=== PATIENT | male | born 1935 | race Caucasian/White ===

== ENCOUNTER 2020-09-04 08:21 | Outpatient (CLI) | payer MEDICARE, SELFPAY ==
--- NOTE | ~2020-09-04 | CT_ITS ---
EXAMINATION: CT soft tissue neck w con DATE: 09/04/2020 08:59 INDICATION: Left ear pain. TECHNIQUE: Computed tomography (CT) of the neck was performed with 75 mL Omnipaque-350 intravenous co ntrast. Automated exposure control and iterative reconstruction technique were employed. The dose-harsha gth product was 517.38 mGy-cm. COMPARISON: None FINDINGS: There are likely changes of ocular lens replacement surgeries. There are no pathologically enlarged lymph nodes. The parotid glands are normal. There is atherosclerosis of the proximal interna l carotid arteries with 60% stenosis on the right and <50% stenosis on the left relative to normal di stal artery lumen diameters. There is a small left mastoid effusion. There is severe cervical spondyl osis. IMPRESSION: 1. Small left mastoid effusion. Reviewed, dictated and finalized at location A. RUNNER
[2020-09-04 08:52] LABS: Estimated Glomerular Filt Rate > 60
== END 2020-09-04 08:22 | disposition home or self-care (01) ==
LOC: ANHIMG 08:33
PROVIDERS: PCP Internal Medicine; Visit Provider Otolaryngology
DX: H92.02 Otalgia, left ear (principal); M47.812 Spondylosis without myelopathy or radiculopathy, cervical region; I65.23 Occlusion and stenosis of bilateral carotid arteries; H74.8X3 Other specified disorders of middle ear and mastoid, bilateral
CPT/HCPCS: 70491; Q9967

== ENCOUNTER 2021-09-08 11:58 | Outpatient (CLI) | payer MEDICARE, SELFPAY ==
--- NOTE | ~2021-09-08 | XR_ITS ---
EXAMINATION: XR abdomen/kub 1V INDICATION: Constipation unspecified TECHNIQUE: Supine views of the abdomen were obtained on 2 radiographs. COMPARISON: None FINDINGS: Lumbar dextroscoliosis is noted. There is an expected volume of colonic stool. No dilated l oops of bowel are evident. 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 There is moderate osteoa rthritis of the right hip. Phleboliths are noted in the pelvis. IMPRESSION: 1. No radiographic correlate for the patient's symptoms. Reviewed, dictated and finalized at location A. GER SCHEDULING
== END 2021-09-08 11:59 | disposition home or self-care (01) ==
LOC: ANHIMG 12:03
PROVIDERS: PCP Internal Medicine; Visit Provider Nurse Practitioner Family
DX: K59.00 Constipation, unspecified (principal); M16.11 Unilateral primary osteoarthritis, right hip
CPT/HCPCS: 74018

== ENCOUNTER 2021-10-22 00:49 | Day surgery (SDC) | payer MEDICARE, SELFPAY ==
[2021-10-18 11:04] VITALS: BMI 28.8
--- NOTE | 2021-10-21 13:02 | PM.HPGS ---
History of Present Illness History of Present Illness Consent: Risks, benefits, and alternatives have been discussed and questions answered. Patient agrees to proceed with procedure. Chief complaint: Ch- bowel habits,constipation,rectal pain Narrative: Frandy Alvares is a 86 year old male Who was being investigated for rectal pain in loose stools. He has in the past had constipation for which he had taken Linzess. More recently c/o of rectal pain and constipation for approximately 4 or 5 weeks now. His symptoms improved after starting on miralax, dulcolax and fiber daily by Mariam Mott. Reports he has been taking the medication as directed. States for past two weeks, with more constipation and no bowel movement for approximately one week now. He has rectal pain as stool passes thru the rectum, as if there is a sore there. He denies any N/V/abdominal pain/hematochezia. Reports his appetite is good and he is eating fine. Review of Systems Review of Systems: All systems reviewed & are unremarkable except as noted in HPI and below PMFSH Past Medical History Medical History (Updated 10/21/21 @ 13:05 by Franco Barnett MD) Constipation Rectal Pain Social History Social History Smoking status: Former smoker Tobacco type: pipe Second hand tobacco smoke exposure: No Additional smoking assessment comments: SMOKED A PIPE YEARS AGO Alcohol intake: former Substance use: never Substance use type: does not use Living arrangements: alone Spiritual care concerns: No Meds Home Medications and Allergies Home Medications Medication Instructions Recorded Confirmed Type aspirin 81 mg tablet,delayed 81 mg PO DAILY 08/11/20 10/18/21 History release clopidogrel 75 mg tablet 75 mg PO DAILY 08/11/20 10/18/21 History finasteride 5 mg tablet 5 mg PO DAILY 08/11/20 10/18/21 History glucosamine sulfate 500 mg tablet 1,000 mg PO DAILY 08/11/20 10/18/21 History Alsuzusin 10 mg PO DAILY 10/18/21 10/18/21 History Hair,Skin and Nails 1 gummy PO BID 10/18/21 10/18/21 History Prevegen 1 cap PO DAILY 10/18/21 10/18/21 History inulin [Fiber Gummies] 4 g PO DAILY 10/18/21 10/18/21 History rosuvastatin 40 mg PO DAILY 10/18/21 10/18/21 History Allergies Allergy/AdvReac Type Severity Reaction Status Date / Time epinephrine Allergy Severe Fainting Verified 10/18/21 11:05 Exam Resp: Auscultation: clear to auscultation bilaterally Cardio: Rate: regular rate Rhythm: regular rhythm GI: GI Palp: Yes Soft to palpation and No Tenderness to palpation present (GI) Assessment and Plan Assessment and plan (1) Change in bowel habits: Code(s): R19.4 - Change in bowel habit Status: Acute Assessment and Plan: Colonoscopy with possible biopsy or polypectomy or cautery or injection of substances.
--- NOTE | 2021-10-21 13:25 | WPDANESEPPF ---
Anes - Initial Pre Proc Eval Procedure: Operation Date: 10/22/21 08:00 Proposed Procedures p Colonoscopy - Franco Barnett MD <Conrado Akers DO - Last Filed: 10/22/21 07:16> Date/Time: 10/21/21 13:25 <Conrado Akers DO - Last Filed: 10/22/21 07:16> Surgeon: Franco Barnett MD <Conrado Akers DO - Last Filed: 10/22/21 07:16> Pre Op Diagnosis: Ch- bowel habits,constipation,rectal pain <Conrado Akers DO - Last Filed: 10/22/21 07:16> Patient Data Age: 86 Gender: M Height: 1.73 m Weight: 86 kg <Conrado Akers DO - Last Filed: 10/22/21 07:16> Allergies Allergy/AdvReac Type Severity Reaction Status Date / Time epinephrine Allergy Severe Fainting Verified 10/22/21 06:51 <Conrado Akers DO - Last Filed: 10/22/21 07:16> Home Medications Medication Instructions Recorded Confirmed Type aspirin 81 mg tablet,delayed 81 mg PO DAILY 08/11/20 10/18/21 History release clopidogrel 75 mg tablet 75 mg PO DAILY 08/11/20 10/18/21 History finasteride 5 mg tablet 5 mg PO DAILY 08/11/20 10/18/21 History glucosamine sulfate 500 mg tablet 1,000 mg PO DAILY 08/11/20 10/18/21 History Alsuzusin 10 mg PO DAILY 10/18/21 10/18/21 History Hair,Skin and Nails 1 gummy PO BID 10/18/21 10/18/21 History Prevegen 1 cap PO DAILY 10/18/21 10/18/21 History inulin [Fiber Gummies] 4 g PO DAILY 10/18/21 10/18/21 History rosuvastatin 40 mg PO DAILY 10/18/21 10/18/21 History <Conrado Akers DO - Last Filed: 10/22/21 07:16> Patient hx anesthesia problems: none <Haily Salguero BUSINESS MANAGEMENT ANALYST - Last Filed: 10/22/21 06:55> Family hx anesthesia problems: none <Haily Salguero BUSINESS MANAGEMENT ANALYST - Last Filed: 10/22/21 06:55> Results Review: All pre-operative results and documents have been reviewed as part of the pre-operative evaluation. <Conrado Akers DO - Last Filed: 10/22/21 07:16> [facility] Past Medical History Medical History: Medical History (Updated 10/21/21 @ 13:26 by Conrado Akers DO) Anxiety Asthma CAD (coronary artery disease) Constipation Rectal Pain <Conrado Akers DO - Last Filed: 10/22/21 07:16> Surgical History Surgical History: Surgical History (Updated 10/21/21 @ 13:26 by Conrado Akers DO) History of coronary artery stent placement <Conrado Akers DO - Last Filed: 10/22/21 07:16> Social History Social History: Social History Smoking status: Former smoker Tobacco type: pipe Second hand tobacco smoke exposure: No Additional smoking assessment comments: SMOKED A PIPE YEARS AGO Alcohol intake: former Substance use: never Substance use type: does not use Living arrangements: alone Spiritual care concerns: No <Conrado Akers DO - Last Filed: 10/22/21 07:16> Anes - Eval Final PreProcedure Day of Procedure 10/21/21 13:25 <Conrado Akers DO - Last Filed: 10/22/21 07:16> Patient weight: overweight <Conrado Akers DO - Last Filed: 10/22/21 07:16> Heart: regular rate and rhythm <Conrado Akers DO - Last Filed: 10/22/21 07:16> Lungs: clear to auscultation and normal air movement <Conrado Akers DO - Last Filed: 10/22/21 07:16> Airway: Mallampati scale class II <Conrado Akers DO - Last Filed: 10/22/21 07:16> Neurological: alert and oriented <Conrado Akers DO - Last Filed: 10/22/21 07:16> Last oral intake: >/= 8 hours <Conrado Akers DO - Last Filed: 10/22/21 07:16> ASA classification: III <Conrado Akers DO - Last Filed: 10/22/21 07:16> Emergent: no <Conrado Akers DO - Last Filed: 10/22/21 07:16> Anesthetic plan: proceed <Conrado Akers DO - Last Filed: 10/22/21 07:16> Anesthesia type and monitoring: general GIVS and standard monitor
--- NOTE | ~2021-10-22 | CT_ITS ---
EXAMINATION: CT brain wo con DATE: 10/22/2021 07:45 INDICATION: Head injury TECHNIQUE: Computed tomography (CT) of the head was performed without intravenous contrast. The mA wa s adjusted according to patient size. Iterative reconstruction technique was employed. Exam dose: 60 5.33 mGy-cm total exam DLP. COMPARISON: None FINDINGS: Moderate cerebellar and cerebral volume loss, consistent with patient age. No intracranial mass lesion or hemorrhage or cerebrovascular accident, midline shift or mass effect i s evident. Bilateral carotid siphon internal carotid artery calcification. There is nonspecific diminished atten uation cerebral white matter, likely due to chronic small vessel ischemic changes. No subdural or epidural hematoma is detected. No orbital mass lesion. The paranasal sinuses and mastoid air cells are normally developed and aerated. IMPRESSION: Cerebral atherosclerosis and chronic small vessel ischemic changes of the cerebral white matter No acute intracranial finding Reviewed, dictated and finalized at Location [facility]. Reviewed, dictated and finalized at location A. ICAL APPLICATION SPECIALIST
[2021-10-22 06:35] VITALS: BP 96/63; PULSE 85; RESP 20; TEMP 36.6; O2SAT 100; BMI 27.4
[2021-10-22] MEDS: LACTATED RINGERS 1,000 ML 150 ML IV CONT (07:06)
[2021-10-22 11:08] VITALS: BP 145/44; PULSE 75; RESP 20; TEMP 36.2; O2SAT 100
--- NOTE | 2021-10-22 11:09 | SUR.PREOP ---
Patient returned from ER after evaluation. [place] noted to laceration in right head.
--- NOTE | 2021-10-22 11:22 | SUR.PREOP ---
Patient informed MD and anesthesiologist about fall last evening. Patient taken to ER at 0755.
--- NOTE | 2021-10-22 11:46 | PM.HPGS ---
History of Present Illness History of Present Illness Consent: Risks, benefits, and alternatives have been discussed and questions answered. Patient agrees to proceed with procedure. Chief complaint: Ch- bowel habits,constipation,rectal pain Narrative: Frandy Alvares is a 86 year old male referred for colonoscopy because of a change in bowel habits. He has had a great deal of constipation lately. Last night he apparently fell. He injured the back of his head which was bleeding. The next thing he remembered that he was cleaning up the blood but he does not recall anything for a few minutes prior to that. We sent him to the emergency room where he was evaluated and he had a CT scan of the head This morning that was negative. Review of Systems Review of Systems: All systems reviewed & are unremarkable except as noted in HPI and below PMFSH Past Medical History Medical History Anxiety Asthma CAD (coronary artery disease) Constipation Rectal Pain Surgical History Surgical History History of coronary artery stent placement Social History Social History Smoking status: Former smoker Tobacco type: pipe Second hand tobacco smoke exposure: No Additional smoking assessment comments: SMOKED A PIPE YEARS AGO Alcohol intake: former Substance use: never Substance use type: does not use Spiritual care concerns: No Meds Home Medications and Allergies Home Medications Medication Instructions Recorded Confirmed Type aspirin 81 mg tablet,delayed 81 mg PO DAILY 08/11/20 10/18/21 History release clopidogrel 75 mg tablet 75 mg PO DAILY 08/11/20 10/18/21 History finasteride 5 mg tablet 5 mg PO DAILY 08/11/20 10/18/21 History glucosamine sulfate 500 mg tablet 1,000 mg PO DAILY 08/11/20 10/18/21 History Alsuzusin 10 mg PO DAILY 10/18/21 10/18/21 History Hair,Skin and Nails 1 gummy PO BID 10/18/21 10/18/21 History Prevegen 1 cap PO DAILY 10/18/21 10/18/21 History inulin [Fiber Gummies] 4 g PO DAILY 10/18/21 10/18/21 History rosuvastatin 40 mg PO DAILY 10/18/21 10/18/21 History Allergies Allergy/AdvReac Type Severity Reaction Status Date / Time epinephrine Allergy Severe Fainting Verified 10/22/21 06:51 Vital Signs Vital Signs - 24 hr 10/22/21 06:35 10/22/21 11:08 Temperature 36.6 C 36.2 C L Pulse Rate 85 75 Respiratory Rate 20 20 Blood Pressure 96/63 L 145/44 H Pulse Oximetry 100 100 Exam Resp: Auscultation: clear to auscultation bilaterally Cardio: Rate: regular rate Rhythm: regular rhythm GI: GI Palp: Yes Soft to palpation and No Tenderness to palpation present (GI) Assessment and Plan Assessment and plan (1) Change in bowel habits: Code(s): R19.4 - Change in bowel habit Status: Acute Assessment and Plan: Colonoscopy with possible biopsy or polypectomy or cautery or injection of substances.
[2021-10-22 12:17] VITALS: BP 76/47; PULSE 60; RESP 21; O2SAT 97
[2021-10-22 12:27] VITALS: BP 87/52; PULSE 63; RESP 19; O2SAT 97
[2021-10-22 12:37] VITALS: BP 153/76; PULSE 70; RESP 22; O2SAT 100
== END 2021-10-22 13:00 | disposition home or self-care (01) ==
PROVIDERS: PCP Internal Medicine; Visit Provider Internal Medicine Gastroenterology
PROC: 0DJD8ZZ Inspection of Lower Intestinal Tract, Via Natural or Artificial Opening Endoscopic (ICD-10-PCS; CPT 45378; principal; 2021-10-22 08:00)
DX: R19.4 Change in bowel habit (principal); K62.89 Other specified diseases of anus and rectum; K64.4 Residual hemorrhoidal skin tags; K57.30 Diverticulosis of large intestine without perforation or abscess without bleeding; F41.9 Anxiety disorder, unspecified; J45.909 Unspecified asthma, uncomplicated; I25.10 Atherosclerotic heart disease of native coronary artery without angina pectoris; Z95.5 Presence of coronary angioplasty implant and graft; Z87.891 Personal history of nicotine dependence; Z79.82 Long term (current) use of aspirin; Z79.4 Long term (current) use of insulin
CPT/HCPCS: 45378; 12001; 36415; 70450; 80053; 83735; 85025; 93005; J2704; J7120

== ENCOUNTER 2021-10-22 07:44 | Emergency (ER) | payer MEDICARE, SELFPAY ==
[2021-10-22 07:50] VITALS: BP 147/71; PULSE 76; RESP 12; TEMP 36.4; O2SAT 99
--- NOTE | 2021-10-22 08:14 | ECG_ITS ---
Measurements Intervals [place] Rate: 70 P: 51 AL: 219 QRS: -16 QRSD: 104 T: 40 QT: 404 QTc: 437 Interpretive Statements SINUS RHYTHM WITH FIRST DEGREE AV BLOCK CONSIDER INFERIOR INFARCT, AGE INDETERMINATE BASELINE ARTIFACT- I, II, III, AVR, AVF, V2-V6 ABNORMAL ECG Electronically Signed On 10-22-2021 8:56:07 [employer] by Elia Ferguson D.O.
--- NOTE | 2021-10-22 08:17 | ED.FALL ---
HPI - Fall General Chief Complaint: Fall Stated Complaint: Fall/Head Injury Time Seen by Provider: 10/22/21 07:56 Source: patient, family and RN notes reviewed Mode of arrival: ambulatory Limitations: no limitations History of Present Illness HPI Narrative: 86-year-old male present in the Emergency Department for evaluation of a head injury. Patient states that this morning he woke up on the bathroom floor next to a follow-up blood. Patient had been doing a colon prep for a colonoscopy today. Patient presented to GI with a head injury. Patient denies any associated symptoms. Patient states he has no pain. Chest pain or shortness of breath. Patient denied any dizziness or lightheadedness when ambulating. Patient denies any previous cardiac history. Patient denies any prior history of syncope. Related Data Home Medications Medication Instructions Recorded Confirmed aspirin 81 mg tablet,delayed 81 mg PO DAILY 08/11/20 10/18/21 release clopidogrel 75 mg tablet 75 mg PO DAILY 08/11/20 10/18/21 finasteride 5 mg tablet 5 mg PO DAILY 08/11/20 10/18/21 glucosamine sulfate 500 mg tablet 1,000 mg PO DAILY 08/11/20 10/18/21 Alsuzusin 10 mg PO DAILY 10/18/21 10/18/21 Fiber Gummies 4 g PO DAILY 10/18/21 10/18/21 Hair,Skin and Nails 1 gummy PO BID 10/18/21 10/18/21 Prevegen 1 cap PO DAILY 10/18/21 10/18/21 rosuvastatin 40 mg PO DAILY 10/18/21 10/18/21 Allergies Allergy/AdvReac Type Severity Reaction Status Date / Time epinephrine Allergy Severe Fainting Verified 10/22/21 06:51 Review of Systems Review of Systems: CONSTITUTIONAL: Denies fever, chills, or sweats. EYES: Denies visual changes, redness, or discharge. ENT: Denies rhinorrhea, congestion, sore throat, or otalgia. CARDIOVASCULAR: Denies chest pain, palpitations, or edema. RESPIRATORY: Denies cough or dyspnea. GASTROINTESTINAL: Denies abdominal pain, nausea, vomiting, or diarrhea. GENITOURINARY: Denies dysuria or hematuria. SKIN: Laceration to posterior scalp. MUSCULOSKELETAL: Denies back pain, joint pain, or myalgia. NEUROLOGIC: Denies headache, numbness, or weakness. PSYCHIATRIC: Denies anxiety or depression. [facility] Past Medical History Medical History Anxiety Asthma CAD (coronary artery disease) Constipation Rectal Pain Surgical History Surgical History History of coronary artery stent placement Social History Social History Smoking status: Former smoker Tobacco type: pipe Second hand tobacco smoke exposure: No Additional smoking assessment comments: SMOKED A PIPE YEARS AGO Alcohol intake: former Substance use: never Substance use type: does not use Spiritual care concerns: No Exam Narrative: APPEARANCE: Well appearing, no pain, no distress, well-nourished. HEAD: normocephalic, 2 cm laceration on anterior posterior scalp. EYES: PERRLA/EOMI, conjunctivae clear. NOSE: Normal no drainage EARS:TMS clear with good light reflex. THROAT: Pharynx clear, no exudate. NECK: Supple. No adenopathy, no masses. RESPIRATORY: Airway patent, respirations nonlabored. Clear to auscultation bilaterally, no rales, rhonchi, wheezing. CARDIOVASCULAR: Regular rate and rhythm without murmurs rubs or gallops. ABDOMINAL: Soft, nontender, nondistended, normal bowel sounds MUSCULOSKELETAL: Moves all extremities. Strength/ROM intact, No edema, No calf tenderness. NEURO: Alert. Cranial nerves II through XII intact. Good gait. Good coordination SKIN: Warm, dry. Normal Color Course Course Emergency Course: Patient had a CT scan ordered by GI. Patient's electrolytes and EKG will be checked. Patient's suture will be repaired. Patient and family were updated on the work-up and treatment plan. All questions and concerns were addressed. EKG was read as normal sinus rhythm with a first-degree AV block. Reevalua
[2021-10-22 08:42] LABS: Basophils Absolute Auto 0.1 K/mm3 (0.0-0.1); Basophils Percent Auto 0.6 % (0.2-1.2); Eosinophils Percent Auto 0.3 % (0-4.4); Hematocrit 39.4 % (42.0-52.0); Hemoglobin 13.4 g/dL (14.0-18.0); Immature Granulocyte Absolute 0.04 K/mm3 (0.00-0.031); Immature Granulocyte Percent A 0.4 % (0-0.5); Lymphocytes Absolute Auto 0.54 K/mm3 (0.9-3.2); Lymphocytes Percent Auto 5.2 % (18.3-44.2); Mean Corpuscular Hemoglobin 32.4 pg (26-34); Mean Corpuscular Volume 95.2 fl (80-100); Mean Platelet Volume 10.5 fl (7.4-10.4); Monocytes Absolute Auto 0.5 K/mm3 (0.1-0.6); Monocytes Percent Auto 4.3 % (2.6-8.5); Neutrophils Absolute Auto 9.3 K/mm3 (1.3-6.7); Neutrophils Percent Auto 89.2 % (45.5-73.1); Platelet Count Result 166 k/mm3 (150-375); Red Blood Count 4.14 M/mm3 (4.6-6.20); Red Cell Distribution Width 12.6 % (11.5-14.5); White Blood Count 10.4 K/mm3 (4.5-10.0)
[2021-10-22 08:45] VITALS: BP 136/59; PULSE 66; RESP 18; O2SAT 99
[2021-10-22 08:56] LABS: Alanine Aminotransferase 28 U/L (4-50); Albumin Level 4.4 g/dL (3.5-5.1); Alkaline Phosphatase 72 U/L (38-126); Anion Gap 11 mmol/L (8-16); Aspartate Amino Transferase 33 U/L (17-59); Bilirubin,Total 0.5 mg/dL (0.2-1.3); Blood Urea Nitrogen 18 mg/dL (9-20); Calcium 9.3 mg/dL (8.4-10.2); Carbon Dioxide 26 mmol/L (22-30); Chloride 101 mmol/L (98-107); Estimated CRCL calculation 39 ml/min; Estimated Glomerular Filt Rate 58; Glucose 120 mg/dL (65-110); Magnesium 2.4 mg/dL (1.6-2.3); Potassium 4.2 mmol/L (3.4-5.0); Sodium 138 mmol/L (137-145)
[2021-10-22 10:25] VITALS: BP 125/64; PULSE 76; RESP 18; O2SAT 99
== END 2021-10-22 11:07 | disposition home or self-care (01) ==
PROVIDERS: Emergency Provider Emergency Medicine; PCP Internal Medicine
DX: S01.01XA Laceration without foreign body of scalp, initial encounter (principal); J45.909 Unspecified asthma, uncomplicated; I25.10 Atherosclerotic heart disease of native coronary artery without angina pectoris; Z95.5 Presence of coronary angioplasty implant and graft; Z87.891 Personal history of nicotine dependence; Z79.82 Long term (current) use of aspirin; R94.31 Abnormal electrocardiogram [ECG] [EKG]; W19.XXXA Unspecified fall, initial encounter
CPT/HCPCS: 12001; 36415; 80053; 83735; 85025; 93005; 99283

== ENCOUNTER 2024-08-26 11:11 | Emergency (ER) | payer MEDICARE, SELFPAY ==
[2024-08-26 11:31] VITALS: BP 110/97; PULSE 82; RESP 17; TEMP 36.4; O2SAT 100
--- NOTE | 2024-08-26 12:38 | PC.NURSE ---
pt believed that he did not need to be here. son agreed to take pt home, prior to being seen
== END 2024-08-26 12:45 | disposition left against medical advice (07) ==
LOC: ANHED 12:42
PROVIDERS: PCP Internal Medicine
DX: S09.90XA Unspecified injury of head, initial encounter (principal); W19.XXXA Unspecified fall, initial encounter
CPT/HCPCS: 99199

== ENCOUNTER 2024-09-24 07:46 | Emergency (ER) | payer MEDICARE, SELFPAY ==
[2024-09-24 07:44] VITALS: BP 124/68; PULSE 58; RESP 12; TEMP 36.6; O2SAT 100
[2024-09-24 09:24] VITALS: BP 132/74; PULSE 80; RESP 16; O2SAT 99
--- NOTE | 2024-09-24 09:31 | ED_ITS ---
HPI - Fall General Chief Complaint: Fall Stated Complaint: fall Time Seen by Provider: 09/24/24 08:24 History of Present Illness HPI Narrative: 89-year-old male presenting from his longterm facility for concerns of a trip and fall. He fell out of his recliner without any head injury. Patient is on Eliquis for a provoked blood clot several months ago. Patient is alert oriented x1 at baseline which is his normal mentation. He is pleasant, cooperative, not in any acute distress and has no visible or evidence of trauma. I spoke to the son who later arrived to the emergency department for collateral formation. Patient's son is not quite sure why he is on a blood thinner as he is DNR, DNI and comfort based measures only and does not need any medications. Patient self is pleasant but demented at baseline, patient verbalizes needing some beta ?shave his face ?as is causing him discomfort but he has no other complaints. Moving all extremities, no findings to suggest overt injury. Review of Systems Review of Systems: As reviewed above but difficult to obtain secondary to patient's dementia ROS unobtainable: Yes unobtainable due to medical condition Exam Narrative: GENERAL: [Well-appearing, well-nourished, and in no acute distress.] HEAD: [Normocephalic, atraumatic.] EYES: [PERRLA and EOMI.] ENT: Nares clear, no rhinorrhea or epistaxis. Mucous membranes moist. NECK: Supple. CHEST: [Clear to auscultation. No respiratory distress.] HEART: [Regular rate and rhythm]. No murmur heard. [Normal peripheral pulses.] ABDOMEN: [Soft, nondistended], [nontender], [No rigidity or guarding] EXTREMITIES: Normal range of motion. [No edema.] SKIN: Warm, dry, no rash. NEURO: [No focal deficits]. Alert and oriented x1 which is his baseline mentation PSYCH: Pleasantly demented, not any acute distress Course Vital Signs Vital signs: Vital Signs Temperature 36.6 C 09/24/24 07:44 Pulse Rate 58 L 09/24/24 07:44 Respiratory Rate 12 09/24/24 07:44 Blood Pressure 124/68 09/24/24 07:44 Pulse Oximetry 100 09/24/24 07:44 Oxygen Delivery Room Air 12/24/24 07:44 Temperature 36.6 C 09/24/24 07:44 Pulse Rate 80 09/24/24 09:24 Respiratory Rate 16 09/24/24 09:24 Blood Pressure 132/74 09/24/24 09:24 Pulse Oximetry 99 09/24/24 09:24 Oxygen Delivery Room Air 09/24/24 07:44 MDM - Fall MDM Narrative Medical decision making narrative: 89-year-old male with a history of advanced dementia, Eliquis use for previous provoked blood clot in his left upper extremity, detention resident. Patient is DNR, DNI and comfort based measures only. Patient is not in any acute distress and has no visible evidence of injury or trauma. Patient is otherwise pleasantly at his baseline mentation which is A&O x1. He is moving all extremities, not any pain, has no evidence of visible injury. Patient's only complaint is that he has not had someone to shave his [place] in the last few days. Patient's son provides collateral formation upon arrival to the ED. We discussed risks and benefits of continued anticoagulation therapy as he had a previous provoked blood clot but he is now on Eliquis and does fall frequently. Given patient's comfort measures status and complications that could arise from continued anticoagulation therapy the son I came to a shared decision to hold patient's anticoagulation therapy at this time as risks outweigh benefits at this time especially with patient's functional status at baseline. Given patient's lack of any focal injuries and lack of complaints that need to be addressed here in the emergency department he can be safely discharged back to his skilled care facility. Paperwork was signed and EMS transport was arranged. Patient and son were comfortable and appreciative of this plan of care. Medical Records Attestation: I reviewed the patient's medical records. Discharge Plan Discharge Clinical Impression: Fall from slip, trip, or stumble Patient Disposition: NH [facility]/Asst Living Condition: Stable Instructions: Antibiotic Form Additional Instructions: No apparent injuries today, recommendations are to discontinue taking your blood thinner medications as the risks and benefits of taking this medication in the setting of frequent falls outweighs the benefit of a provoked blood clot treatment especially in the setting of comfort based care measures. Goals aligned with treating patient's discomfort and pain rather than causing any complications. Discussed this with the patient's son who is in agreement to discontinue blood thinner therapy in this case. Patient Language: Panamanian Follow-up/Referrals: Ignacio,Bao Malloy MD [Primary Care Provider] - Stand Alone Forms: [facility] Discharge Time of Disposition: 09:02
--- OUTSIDE RECORDS SUMMARY | 2024-10-01 08:35 | XMS_ITS | Clinical Summary ---
Author Organization [facility] [employer] Address [address] [place] [address] Care Team Providers Care [employer] Name Role Phone Bao Pierre MD Primary Care Provider [phone] Source Comments [facility] [employer],non-owned Affiliates and Associated Physician Practices is amultiple site organization consisting of ambulatory clinics and hospital sitesin [place], [place], [place]. This disclosure is being madepursuant to the Care Everywhere program and may not contain all information available regarding this patient. Last updated 18.[facility] [employer] Allergies Active Allergy Reactions Criticality Noted Date Comments Lorazepam Other 09/08/2024 Pt gets drowsy/ lethargic confused for multiple days after dose administered Epinephrine Dizziness Low 12/28/2015 Passed out for 4 hours in childhood Medications * Be aware that medications may not be up to date on this document. Alwaysverify current medications with the patient. Medication Sig Dispensed Refills Start Date End Date Status Nutritional Supplements (Ensure Plus High Protein) LIQD Take 1 container by mouth 3 times daily 08/30/2024 Active levETIRAcetam (Keppra) 500 MG tablet Take 1 (one) tablet by mouth 2 times daily 60 tablet 2 09/06/2024 Active escitalopram (Lexapro) 10 MG tablet Take 1 (one) tablet by mouth once daily 30 tablet 2 09/06/2024 Active polyethylene glycol 3350 (Miralax) 17 g packet Take 17 (seventeen) g by mouth once daily 09/06/2024 Active senna (Senokot) 8.6 MG tablet Take 1 (one) tablet by mouth once daily 09/06/2024 Active folic acid (Folvite) 1 MG tablet Take 1 (one) tablet by mouth once daily 30 tablet 09/13/2024 Active apixaban (Eliquis) 2.5 MG tablet Take 1 (one) tablet by mouth 2 times daily for 30 days 60 tablet 09/12/2024 5 Active acetaminophen (Tylenol) 500 MG tablet Take 2 (two) tablets by mouth every 8 hours as needed for Headache (pain) Maximum allowable Acetaminophen amount = 4 Grams (4000 mg) / 24 hours. 09/12/2024 Active OLANZapine, disintegrating, (ZyPREXA Zydis) 5 MG tablet Take 1 (one) tablet by mouth 2 times daily 60 tablet 09/23/2024 Active donepezil (Aricept) 10 MG tablet Take 1 (one) tablet by mouth at bedtime 30 tablet 3 09/23/2024 Active alfuzosin CR 24hr (UROXATRAL) 10 MG tablet Take 1 (one) tablet by mouth once daily 4 Discontinue d(List Clean-Up) FIBER PO Take 1 capsule by mouth 2 times daily 4 Discontinue d(List Clean-Up) finasteride (PROSCAR) 5 MG tablet Take 1 (one) tablet by mouth once daily 4 Discontinue d(List Clean-Up) GLUCOSAMINE CHONDROITIN COMPLX PO Take 1 tablet by mouth once daily 4 Discontinue d(List Clean-Up) ibuprofen (MOTRIN) 600 MG tablet Take 1 (one) tablet by mouth as needed 08/07/2014 4 Discontinue d(List Clean-Up) lovastatin (MEVACOR) 20 MG tablet Take 1 (one) tablet by mouth once daily 12 02/15/2018 4 Discontinue d(List Clean-Up) Multiple Vitamins-Minerals (HAIR SKIN AND NAILS FORMULA) TABS Take 2 tablets by mouth once daily 4 Discontinue d(List Clean-Up) Vitamin D, Cholecalciferol, 1000 UNITS CAPS Take 1 (one) capsule by mouth once daily 4 Discontinue d(List Clean-Up) ingenol (PICATO) 0.015 % gelIndications:Ac tinic keratosis Apply to affected area once daily For actinic keratosis on the Forehead and your hair line Use for 3 days. 3 Each 03/14/2019 4 Discontinue d(List Clean-Up) aspirin EC (ECOTRIN) 81 MG tablet Take 1 (one) tablet by mouth once daily 4 Discontinue d(List Clean-Up) metoprolol succinate XL 24hr (TOPROL XL) 25 MG tablet Take 0.5 (one-half) tablet by mouth once daily 01/30/2020 4 Discontinue d(List Clean-Up) Apoaequorin (PREVAGEN PO) Take 1 tablet by mouth once daily 4 Discontinue d(List Clean-Up) hydrOXYzine HCl (Atarax) 10 MG tablet 10/31/2023 4 Discontinue d(List Clean-Up) QUEtiapine (SEROquel) 25 MG tabletIndications :Agitation Take 1 (one) tablet by mouth every morning AND 0.5 (one-half) tablet at bedtime. May also take 0.5 (one-half) tablet 3 times daily as needed. Reasons: Agitation. 90 tablet 2 09/06/2024 4 Discontinue d(Clinical Decision) QUEtiapine (SEROquel) 25 MG tablet Take 0.5 (one-half) tablet by mouth 3 times daily as needed (Severe non-redirectable agitation) 45 tablet 09/06/2024 4 Discontinue d(Tx Complete) QUEtiapine (SEROquel) 25 MG tabletIndications :Agitation Take 1 (one) tablet by mouth every morning Reasons: Agitation 30 tablet 2 09/06/2024 4 Discontinue d(Tx Complete) cephalexin (Keflex) 500 MG capsule Take 1 (one) capsule by mouth 4 times daily for 2 days 8 capsule 09/12/2024 4 Discontinue d(List Clean-Up) Active Problems Problem Noted Date Diagnosed Date CLARK (acute kidney injury) 09/17/2024 Left cephalic vein thrombosis 09/17/2024 Failure to thrive in adult 09/14/2024 Orthostatic hypotension 09/04/2024 Moderate dementia with agitation 08/30/2024 Delirium 08/30/2024 Observed seizure-like activity 08/30/2024 Severe protein-calorie malnutrition 08/30/2024 Trauma 08/28/2024 Impaired mobility and ADLs 08/28/2024 Altered mental status 08/28/2024 Fall 08/28/2024 SDH (subdural hematoma) 08/28/2024 Fall, subsequent encounter 08/28/2024 Contusion of right lung, initial encounter 08/28 Closed fracture of one rib of right side, initia l encounter 08/28/2024 Neoplasm of uncertain behavior of skin 9 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 See note from [facility] in Epic--12/2014. MRI report there also MRI 10/2012 Severe spinal stenosis L1-2, L4-5, Moderate stenosis L3-4 and L2-3, Severe foraminal narrowing L1-2, L3-4, and L2-3 Diffuse disc bulging all levels History of SCC (squamous cell carcinoma) of skin 01/13/2014 Inflamed seborrheic keratosis 05/11/2011 Resolved Problems Problem Noted Date Diagnosed Date Resolved Date Suspected deep vein thrombosis (DVT) 09/07/2024 09/17/2024 Encounters Date Type Department Care Team Description 09/15/2024 10:02 AM FRONT END ARCHITECT - 09/23/2024 9:43 PM FRONT END ARCHITECT Hospital Encounter [facility] 3E MED/ONC [address] [place] [address] Whit Vázquez DO Onyechi, Afoma, MD Brown, Micahla C, MD Hospitalist Discharge Disposition: Retirement or Supportive Care 09/14/2024 12:23 PM FRONT END ARCHITECT - 09/15/2024 9:39 AM [facility] Emergency [facility] [address] [place] [phone] Yogendran, MD Cait Burns Matthew, MD Barrera Pena, Fabio A, MD Dementia with agitation, unspecified dementia severity, unspecified dementia type (HCC) (Primary Dx); Fall, initial encounter; History of subdural hematoma; Delirium Discharge Disposition: Inpatient Hospital 09/14/2024 Travel 09/13/2024 Transitional Care [facility] [address] [place] [address] Thelma Caldera RN Transitions Of Care 09/08/2024 Travel 09/07/2024 4:08 PM FRONT END ARCHITECT - 09/12/2024 1:13 PM FRONT END ARCHITECT Hospital Encounter [facility] [address] [place] [phone] Escobar Sorto MD Jain, Aman, DO Fernelius, Joshua, MD Heis, Farah, MD Hazam, MD Amanda Internal Medicine Discharge Disposition: Home or Self Care 08/28/2024 Travel 08/27/2024 10:53 PM FRONT END ARCHITECT - 09/06/2024 11:53 AM FRONT END ARCHITECT Hospital Encounter [facility] 8S ACUTE [address] [place] [address] Alice Capps MD Naughton, MD Kristine Alexander Lydia, MD Hazam, MD Edouard Patel Ryan, DO Trauma Discharge Disposition: [place] Health [place] [facility] [place] [facility] 3 Mon[place] Immunizations Name Administration Dates Next Due INFLUENZA VACCINE, HIGH-DOSE , QUADR. (FLUZONE HIGH-DOSE QUADRIVALENT; 65Y+), 0.7 ML (HD-IIV4) 06/18/2020,07/09/2017,08/11/2016 TDAP (7yrs+) 08/27/2024 Family History Medical History Relation Name Comments CAD (Coronary Artery Disease) Mother High Blood Pressure Mother Asthma Neg Hx CVA Neg Hx Cancer - Breast Neg Hx Cancer - Other Neg Hx Cancer - Skin, Melanoma Neg Hx Cancer - Skin, Non Melanoma Neg Hx Eczema Neg Hx Hemophilia Neg Hx Psoriasis Neg Hx Relation Name Status Comments Father Mother Social History Tobacco Use Types Packs/Day Years Used Date Smoking Tobacco: Former Pipe Q uit: 2014 Smokeless Tobacco: Former Tobacco Cessation:Counseling Given: No Alcohol Use Standard Drinks/Week Comments Yes 0 (1 standard drink = 0.6 oz pur e alcohol) rarely AUDIT-C Answer Date Recorded Q1: How often do you have a drink containing alcohol? Never 09/15/2024 Q2: How many drinks containi ng alcohol do you have on a typical day when you are drinking? Patient does not drink Q3: How often do you have si x or more drinks on one occasion? Never 09/15/2024 Overall Financial Resource Strain (CARDIA) Answe r Date Recorded How hard is it for you to pa y for the very basics like food, housing, medical care, and heating? Not hard at all 09/15/2024 [facility] Occupat [facility] - Occupational Stress Questionnaire Answer Date Recorded Do you feel stress - tense, restless, nervous, or anxious, or unable to sleep at night because your mind is troubled all the time - these days? Not at all 09/15/2024 Hunger Vital Sign Answer Date Recorded Within the past 12 months, y ou worried that your food would run out before you got the money to buy more. Never true 09/15/20 24 Within the past 12 months, t he food you bought just didn't last and you didn't have money to get more. Never true 09/15/2024 PRAPARE - Transportation Answer Date Re corded In the past 12 months, has l ack of transportation kept you from medical appointments or from getting medications? No 09/01 In the past 12 months, has l ack of transportation kept you from meetings, work, or from getting things needed for daily living? No 09/15/2024 Housing Stability Vital Sign Answer Mack e Recorded In the last 12 months, was t here a time when you were not able to pay the mortgage or rent on time? No 09/15/2024 In the past 12 months, how m any times have you moved where you were living? 0 09/15/2024 At any time in the past 12 m [facility], were you homeless or living in a snf (including now)? No 09/15/2024 Sex and Gender Information Value Date Recorded Sex Assigned at Not on file Gender Identity Not on file Sexual Orientation Not on file Last Filed Vital Signs Vital Sign Reading Time Taken Comments Blood Pressure 126/65 09/23/2024 7:07 PM FRONT END ARCHITECT Pulse 71 09/23/2024 7:07 PM FRONT END ARCHITECT Temperature 36.4 ??C (97.6 ??F) 09/23/2024 7:07 PM CS T Respiratory Rate 17 09/23/2024 7:07 PM FRONT END ARCHITECT Oxygen Saturation 98% 09/23/2024 7:07 PM FRONT END ARCHITECT Inhaled Oxygen Concentration - - Weight 71.4 kg (157 lb 8 oz) 09/15/2024 10:11 AM FRONT END ARCHITECT Height 170.2 cm (5' 7 ) 09/15/2024 10:11 AM FRONT END ARCHITECT Body Mass Index 24.67 09/15/2024 10:11 AM FRONT END ARCHITECT Plan of Treatment Upcoming Encounters Date Type Department Care Team (Late st Contact Info) Description 10/09/2024 11:30 AM FRONT END ARCHITECT Office Visit [facility] - Dermatology [address] [place] [phone] Katharine Bar MD [address] [place] [address] [address] [place] [phone] 11/19/2024 8:30 AM FRONT END ARCHITECT Office Visit [facility] - Dermatology [address] [place] [phone] Patricia Jarvis MD [address] [place] [address] 11/22/2024 8:00 AM FRONT END ARCHITECT Office Visit [facility] - Neurology [address] [place] [phone] Chay Nieves MD [address] [place] [address] Health Maintenance Due Date Last Done Comments MEDICARE AWV ? 12 MONTHS 1936 ZOSTER VACCINE (1 of 2) 1986 PNEUMOCOCCAL VACCINE 65+ (1 of 1 - PCV) 2001 Respiratory Syncytial Virus (RSV) Vaccine Pt: or over 60 yrs (1 - 1-dose 75+ series) 2011 DEPRESSION SCREENING 10/02/2023 COVID-19 VACCINE ( season) 2024 08/07/2021, 12/20/2020, 11/22/2020 INFLUENZA VACCINE (#1) 2024 2, 06/18/2020, 08/02/2019, Additional history exists DTAP/TDAP/TD VACCINES (2 - Td or Tdap) 08/27/2034 08/27/2024 HEPATITIS B VACCINE Aged Out No longe r eligible based on patient's age to complete this topic HIB VACCINE Aged Out No longer eligi ble based on patient's age to complete this topic HPV VACCINE Aged Out No longer eligi ble based on patient's age to complete this topic MENINGOCOCCAL VACCINE Aged Out No ac sammy eligible based on patient's age to complete this topic Procedures Procedure Name Priority Date/Time Associated Diagnosis Comments GLUCOSE - POINT OF CARE Routine 09/19/2024 11:59 AM FRONT END ARCHITECT GLUCOSE - POINT OF CARE Routine 09/19/2024 8:12 AM FRONT END ARCHITECT GLUCOSE - POINT OF CARE Routine 09/18/2024 10:06 PM FRONT END ARCHITECT GLUCOSE - POINT OF CARE Routine 09/18/2024 5:53 AM FRONT END ARCHITECT GLUCOSE - POINT OF CARE Routine 09/17/2024 11:57 PM FRONT END ARCHITECT GLUCOSE - POINT OF CARE Routine 09/17/2024 7:33 PM FRONT END ARCHITECT GLUCOSE - POINT OF CARE Routine 09/17/2024 12:01 PM FRONT END ARCHITECT GLUCOSE - POINT OF CARE Routine 09/17/2024 5:49 AM FRONT END ARCHITECT RENAL FUNCTION PANEL AM Draw 09/17/2024 4:57 AM FRONT END ARCHITECT GLUCOSE - POINT OF CARE Routine 09/17/2024 12:24 AM FRONT END ARCHITECT GLUCOSE - POINT OF CARE Routine 09/16/2024 7:24 PM FRONT END ARCHITECT GLUCOSE - POINT OF CARE Routine 09/16/2024 12:10 PM FRONT END ARCHITECT GLUCOSE - POINT OF CARE Routine 09/16/2024 6:08 AM FRONT END ARCHITECT CBC W/O DIFFERENTIAL Routine 09/16/2024 3:04 AM FRONT END ARCHITECT BASIC METABOLIC PANEL (CALCIUM TOTAL) Routine 09/16/2024 3:04 AM FRONT END ARCHITECT GLUCOSE - POINT OF CARE Routine 09/16/2024 12:29 AM FRONT END ARCHITECT GLUCOSE - POINT OF CARE Routine 09/15/2024 8:29 PM FRONT END ARCHITECT CBC W AUTO DIFFERENTIAL STAT 09/15/2024 12:56 PM FRONT END ARCHITECT PT EVAL AND TREAT Routine 09/15/2024 12: 46 PM FRONT END ARCHITECT OT EVAL AND TREAT Routine 09/15/2024 12: 46 PM FRONT END ARCHITECT COMPREHENSIVE METABOLIC PANEL STAT 09/15/2024 11:20 [address] HEAD WO CONTRAST STAT 09/14/2024 5 :31 PM FRONT END ARCHITECT Fall, initial encounter TROPONIN-I HIGH SENSITIVE REFLEX 1HOUR Timed 09/14/2024 3:45 PM FRONT END ARCHITECT TEG 6S PLATELET MAPPING STAT 09/14/2024 3:45 PM FRONT END ARCHITECT XR CHEST 1VW PORTABLE STAT 09/14/2024 2:49 PM FRONT END ARCHITECT Fall, initial encounter PT-INR SLH STAT 09/14/2024 1:44 PM FRONT END ARCHITECT URINALYSIS REFLEX MICROSCOPIC REFLEX CULTURE STAT 09/14/2024 1:35 PM FRONT END ARCHITECT TYPE + SCREEN PANEL STAT 09/14/2024 1 :34 PM FRONT END ARCHITECT LIPASE BLOOD STAT 09/14/2024 1:34 PM FRONT END ARCHITECT TEG 6 GLOBAL HEMOSTASIS W/ LYSIS STAT 09/14/2024 1:34 PM FRONT END ARCHITECT TROPONIN-I HIGH SENSITIVE BASELINE + 1HR STAT 09/14/2024 1:34 PM FRONT END ARCHITECT COMPREHENSIVE METABOLIC PANEL STAT 09/14/2024 1:34 PM FRONT END ARCHITECT CBC W AUTO DIFFERENTIAL STAT 09/14/2024 1:34 PM FRONT END ARCHITECT PT-INR SLH Routine 09/12/2024 6:13 AM FRONT END ARCHITECT CBC W/O DIFFERENTIAL Routine 09/11/2024 8:29 PM FRONT END ARCHITECT RENAL FUNCTION PANEL Routine 09/11/2024 8:28 PM FRONT END ARCHITECT PT-INR SLH Routine 09/11/2024 4:45 AM FRONT END ARCHITECT CBC W/O DIFFERENTIAL Routine 09/10/2024 9:28 PM FRONT END ARCHITECT RENAL FUNCTION PANEL Routine 09/10/2024 9:27 PM FRONT END ARCHITECT PT-INR SLH Routine 09/10/2024 6:10 AM FRONT END ARCHITECT RENAL FUNCTION PANEL Routine 09/09/2024 9:49 PM FRONT END ARCHITECT CBC W/O DIFFERENTIAL Routine 09/09/2024 9:49 PM FRONT END ARCHITECT VAS LEFT VENOUS DUPLEX UE STAT 09/09/2024 11:37 AM FRONT END ARCHITECT Left arm swelling PT-INR SLH Routine 09/09/2024 10:40 AM FRONT END ARCHITECT LEVETIRACETAM LEVEL AM Draw 09/09/2024 6 :43 AM FRONT END ARCHITECT RENAL FUNCTION PANEL Routine 09/08/2024 8:07 PM FRONT END ARCHITECT CBC W/O DIFFERENTIAL Routine 09/08/2024 8:07 PM FRONT END ARCHITECT VITAMIN B12 Routine 09/08/2024 8:07 PM FRONT END ARCHITECT FOLATE Routine 09/08/2024 8:07 PM FRONT END ARCHITECT IRON + TRANSFERRIN PANEL Routine 09/08/2024 8:07 PM FRONT END ARCHITECT CULTURE BLOOD STAT 09/08/2024 8:07 PM FRONT END ARCHITECT GLUCOSE - POINT OF CARE Routine 09/08/2024 4:25 PM FRONT END ARCHITECT PHOSPHORUS BLOOD Routine 09/08/2024 5:45 AM FRONT END ARCHITECT MAGNESIUM BLOOD Routine 09/08/2024 5:45 AM FRONT END ARCHITECT CBC W/O DIFFERENTIAL Routine 09/08/2024 5:45 AM FRONT END ARCHITECT BASIC METABOLIC PANEL (CALCIUM TOTAL) Routine 09/08/2024 5:45 AM FRONT END ARCHITECT PT-INR SLH Routine 09/08/2024 5:45 AM FRONT END ARCHITECT URINE MICROSCOPIC ONLY REFLEX TO CULTURE STAT 09/07/2024 6:37 PM FRONT END ARCHITECT URINALYSIS REFLEX MICROSCOPIC REFLEX CULTURE STAT 09/07/2024 6:37 PM FRONT END ARCHITECT CULTURE URINE STAT 09/07/2024 6:37 PM FRONT END ARCHITECT XR HUMERUS LEFT 2VW OR MORE STAT 09/07/2024 6:31 PM FRONT END ARCHITECT Left arm swelling D-DIMER STAT 09/07/2024 5:14 PM FRONT END ARCHITECT PTT SLH STAT 09/07/2024 5:14 PM FRONT END ARCHITECT PT-INR SLH STAT 09/07/2024 5:14 PM FRONT END ARCHITECT C-REACTIVE PROTEIN FELICITY 09/07/2024 5: 14 PM FRONT END ARCHITECT ERYTHROCYTE SEDIMENTATION RATE STAT 09/07/2024 5:14 PM FRONT END ARCHITECT COMPREHENSIVE METABOLIC PANEL STAT 09/07/2024 5:14 PM FRONT END ARCHITECT CBC W AUTO DIFFERENTIAL STAT 09/07/2024 5:14 PM FRONT END ARCHITECT MRI BRAIN WWO CONTRAST PENDING DISCHARGE 09/05/2024 9:33 AM FRONT END ARCHITECT Altered mental status, unspecified altered mental status type EKG 12-LEAD Routine 08/30/2024 1:59 PM FRONT END ARCHITECT SDH (subdural hematoma) (HCC) XR ANKLE LEFT 3VW OR MORE Routine 08/30/2024 10:22 AM FRONT END ARCHITECT Fall, initial encounter CT HEAD WO CONTRAST STAT 08/29/2024 1 0:56 AM FRONT END ARCHITECT SDH (subdural hematoma) (HCC) PHOSPHORUS BLOOD Routine 08/29/2024 4:48 AM FRONT END ARCHITECT MAGNESIUM BLOOD Routine 08/29/2024 4:48 AM FRONT END ARCHITECT BASIC METABOLIC PANEL (CALCIUM TOTAL) AM Draw 08/29/2024 4:48 AM FRONT END ARCHITECT CBC W/O DIFFERENTIAL AM Draw 08/29/2024 4:48 AM FRONT END ARCHITECT URINALYSIS REFLEX TO MICROSCOPIC NO CULTURE Routine 08/28/2024 8:52 PM FRONT END ARCHITECT URINE DRUG SCREEN IMMUNOASSAY STAT 08/28/2024 8:52 PM FRONT END ARCHITECT BLOOD TYPE VERIFICATION STAT 08/28/2024 8:23 PM FRONT END ARCHITECT SARS-COV-2 (COVID-19) RAPID STAT 08/28/2024 11:05 AM FRONT END ARCHITECT Trauma XR ELBOW LEFT 3VW OR MORE STAT 08/27/2024 11:41 PM FRONT END ARCHITECT Trauma XR ANKLE LEFT 3VW OR MORE STAT 08/27/2024 11:41 PM FRONT END ARCHITECT Trauma CT LUMBAR SPINE WO CONTRAST STAT 08/27/2024 11:34 PM FRONT END ARCHITECT Trauma CT THORACIC SPINE WO CONTRAST STAT 08/27/2024 11:34 PM FRONT END ARCHITECT Trauma CT CHEST ABDOMEN PELVIS W CONT STAT 08/27/2024 11:34 PM FRONT END ARCHITECT Trauma CT CERVICAL SPINE WO CONTRAST STAT 08/27/2024 11:34 PM FRONT END ARCHITECT Trauma CT FACIAL BONES WO CONTRAST STAT 08/27/2024 11:34 PM FRONT END ARCHITECT Trauma CT HEAD WO CONTRAST STAT 08/27/2024 1 1:34 PM FRONT END ARCHITECT Trauma XR CHEST 1VW PORTABLE STAT 08/27/2024 11:33 PM FRONT END ARCHITECT Trauma XR PELVIS 1 OR 2VW STAT 08/27/2024 11 :33 PM FRONT END ARCHITECT Trauma TYPE + SCREEN PANEL STAT 08/27/2024 1 1:05 PM FRONT END ARCHITECT TEG 6S PLATELET MAPPING STAT 08/27/2024 11:05 PM FRONT END ARCHITECT TEG 6 GLOBAL HEMOSTASIS W/ LYSIS STAT 08/27/2024 11:05 PM FRONT END ARCHITECT PTT SLH STAT 08/27/2024 11:05 PM FRONT END ARCHITECT PT-INR SLH STAT 08/27/2024 11:05 PM FRONT END ARCHITECT CK BLOOD STAT 08/27/2024 11:05 PM FRONT END ARCHITECT CBC W AUTO DIFFERENTIAL STAT 08/27/2024 11:05 PM FRONT END ARCHITECT BASIC METABOLIC PANEL (CALCIUM TOTAL) STAT 08/27/2024 11:05 PM FRONT END ARCHITECT ALCOHOL ETHYL BLOOD STAT 08/27/2024 1 1:05 PM FRONT END ARCHITECT from Last 3 Months Results * (ABNORMAL) GLUCOSE - POINT OF CARE (09/19/2024 11:59 AM FRONT END ARCHITECT) Only the most recent of15 resultswithin the time period is included. Glucose WB/POC 107(H) 70 - 99 mg/dL 09/30/2024 7:07 AM FRONT END ARCHITECT [facility] Specimen Type Cap Fingerstick 2023 7:07 AM FRONT END ARCHITECT [facility] Blood BLOOD SPECIMEN / Unknown 09/19/2024 11:59 AM FRONT END ARCHITECT 09/30/2024 7:07 AM FRONT END ARCHITECT Andre Fisher MD LAB - POINT OF CARE ORDERABLES Performing Organization Address City/State/[facility] Co de Phone Number [facility] [address] [place] [address] * (ABNORMAL) RENAL FUNCTION PANEL (09/17/2024 4:57 AM FRONT END ARCHITECT) Only the most recent of5 resultswithin the time period is included. Pathologist [facility] Glucose 87 70 - 99 mg/dL 09/17/2024 5:51 AM FRONT END ARCHITECT [facility] Sodium 140 136 - 145 mmol/L 09/17/2024 5:51 AM FRONT END ARCHITECT [facility] Potassium 4.1 3.5 - 5.1 mmol/L 09/17/2024 5:51 AM [facility] Chloride 110(H) 98 - 107 mmol/L 09/17/2024 5:51 AM FRONT END ARCHITECT [facility] CO2 22 22 - 29 mmol/L 09/17/2024 5:51 AM FRONT END ARCHITECT [facility] Calcium 8.8 8.4 - 10.4 mg/dL 09/17/2024 5:51 AM [facility] Anion Gap 8 6 - 16 mmol/L 09/17/2024 5:51 AM FRONT END ARCHITECT [facility] BUN 26 7 - 26 mg/dL 09/17/2024 5:51 AM FRONT END ARCHITECT [facility] Creatinine 0.87 0.72 - 1.25 mg/dL 09/17/2024 5:51 AM [facility] Albumin 3.0(L) 3.4 - 5.0 gm/dL 09/17/2024 5:51 AM [facility] Phosphorus 3.1 2.5 - 4.5 mg/dL 09/17/2024 5:51 AM [facility] eGFR by CKD-EPI 83(L) >=90 mL/min/1.7 3 m2 09/17/2024 5:51 AM [facility] Blood BLOOD SPECIMEN / Unknown Lab Venipuncture / Unknown 09/17/2024 4:57 AM FRONT END ARCHITECT 09/17/2024 5:23 AM FRONT END ARCHITECT Melissa Avlarez MD LAB - CHEMISTRY LISANDRO HUGHES [facility] Organization Address City/State/ZIP Co de Phone Number [facility] [address] [place] [address] * (ABNORMAL) CBC W/O DIFFERENTIAL (09/16/2024 3:04 AM [facility]) Only the most recent of7 resultswithin the time period is included. WBC 10.1 4.0 - 10.7 x10E9/L 09/16/2024 4:05 AM [facility] RBC Count 2.76(L) 4.30 - 5.80 x10E12/L 09/16/2024 4:05 AM [facility] Hemoglobin 8.6(L) 13.3 - 17.5 g/dL 09/16/2024 4:05 AM [facility] Hematocrit 26.1(L) 38.7 - 51.1 % 09/16/2024 4:05 AM [facility] MCV 94.6 80.0 - 98.0 fL 09/16/2024 4:05 AM [facility] MCH 31.2 26.7 - 33.6 pg 09/16/2024 4:05 AM [facility] MCHC 33.0 31.7 - 36.3 g/dL 09/16/2024 4:05 AM [facility] RDW-CV 13.9 11.3 - 14.8 % 09/16/2024 4:05 AM [facility] Platelet Count 315 150 - 420 x10E9/L 09/16/2024 4:05 AM [facility] MPV 9.6 7.8 - 11.4 fL 09/16/2024 4:05 AM [facility] Blood BLOOD SPECIMEN / Unknown Lab Venipuncture / Unknown 09/16/2024 3:04 AM FRONT END ARCHITECT 09/16/2024 3:47 AM FRONT END ARCHITECT Kalee Juares [employer] PROGRAMMER-REGISTERED [facility] NURSE [facility] - HEMATO LOGY ORDERABLES [facility] [address], [place] [id number] * (ABNORMAL) BASIC METABOLIC PANEL (CALCIUM TOTAL) (09/16/2024 3:04 AM [facility]) Only the most recent of4 resultswithin the time period is included. Glucose 94 70 - 99 mg/dL 09/16/2024 4:17 AM [facility] Sodium 137 136 - 145 mmol/L 09/16/2024 4:17 AM [facility] Potassium 4.1 3.5 - 5.1 mmol/L 09/16/2024 4:17 AM [facility] Chloride 107 98 - 107 mmol/L 09/16/2024 4:17 AM [facility] CO2 24 22 - 29 mmol/L 09/16/2024 4:17 AM [facility] Calcium 8.4 8.4 - 10.4 mg/dL 09/16/2024 4:17 AM [facility] Anion Gap 6 6 - 16 mmol/L 09/16/2024 4:17 AM [facility] BUN 30(H) 7 - 26 mg/dL 09/16/2024 4:17 AM [facility] Creatinine 1.38(H) 0.72 - 1.25 mg/dL 09/16/2024 4:17 AM [facility] eGFR by CKD-EPI 49(L) >=90 mL/min/1.7 3 m2 09/16/2024 4:17 AM [facility] Blood BLOOD SPECIMEN / Unknown Lab Venipuncture / Unknown 09/16/2024 3:04 AM FRONT END ARCHITECT 09/16/2024 3:47 AM FRONT END ARCHITECT Kalee Juares NET PROGRAMMER-REGISTERED HEALTH NURSE LAB - CHEMIS TRY ORDERABLES [facility] [address] [place] [address] * (ABNORMAL) CBC W AUTO DIFFERENTIAL (09/15/2024 12:56 PM FRONT END ARCHITECT) Only the most recent of4 resultswithin the time period is included. WBC 10.2 4.0 - 10.7 x10E9/L 09/15/2024 1:05 PM [facility] RBC Count 2.82(L) 4.30 - 5.80 x10E12/L 09/15/2024 1:05 PM [facility] Hemoglobin 8.9(L) 13.3 - 17.5 g/dL 09/15/2024 1:05 PM [facility] Hematocrit 27.3(L) 38.7 - 51.1 % 09/15/2024 1:05 PM [facility] MCV 96.8 80.0 - 98.0 fL 09/15/2024 1:05 PM [facility] MCH 31.6 26.7 - 33.6 pg 09/15/2024 1:05 PM [facility] MCHC 32.6 31.7 - 36.3 g/dL 09/15/2024 1:05 PM [facility] RDW-CV 14.0 11.3 - 14.8 % 09/15/2024 1:05 PM [facility] Platelet Count 275 150 - 420 x10E9/L 09/15/2024 1:05 PM [facility] MPV 9.5 7.8 - 11.4 fL 09/15/2024 1:05 PM [facility] Neutrophil % 81.4(H) 41.0 - 74.0 % 09/15/2024 1:05 PM [facility] Lymphocyte % 9.2(L) 17.0 - 47.0 % 09/15/2024 1:05 PM [facility] Monocyte % 5.7 3.0 - 11.0 % 09/15/2024 1:05 PM [facility] Eosinophil % 2.3 0.0 - 7.0 % 09/15/2024 1:05 PM [facility] Basophil % 0.5 0.0 - 1.6 % 09/15/2024 1:05 PM [facility] Immature Granulocytes % 0.9 0.0 - 1.0 % 09/15/2024 1:05 PM [facility] Neutrophil Absolute 8.31(H) 1.60 - 7.50 x10E9/L 09/15/2024 1:05 PM [facility] Lymphocyte Absolute 0.94(L) 1.00 - 4.40 x10E9/L 09/15/2024 1:05 PM [facility] Monocyte Absolute 0.58 0.15 - 1.00 x10E9/L 09/15/2024 1:05 PM [facility] Eosinophil Absolute 0.23 0.00 - 0.60 x10E9/L 09/15/2024 1:05 PM [facility] Basophil Absolute 0.05 0.00 - 0.13 x10E9/L 09/15/2024 1:05 PM [facility] Blood BLOOD SPECIMEN / Unknown Lab Venipuncture / Unknown 09/15/2024 12:56 PM FRONT END ARCHITECT 09/15/2024 1:00 PM [facility] Kalee Juares APRN-REGISTERED HEALTH NURSE LAB - HEMATO LOGY ORDERABLES Performing Organization Address City/State/[facility] Co de Phone Number [facility] [address], [place] [phone] * (ABNORMAL) COMPREHENSIVE METABOLIC PANEL (09/15/2024 11:20 AM [facility]) Only the most recent of3 resultswithin the time period is included. Glucose 101(H) 70 - 99 mg/dL 09/15/2024 12:16 PM [facility] Sodium 137 136 - 145 mmol/L 09/15/2024 12:16 PM [facility] Potassium 4.7 3.5 - 5.1 mmol/L 09/15/2024 12:16 PM [facility] Chloride 106 98 - 107 mmol/L 09/15/2024 12:16 PM [facility] CO2 25 22 - 29 mmol/L 09/15/2024 12:16 PM [facility] Calcium 8.4 8.4 - 10.4 mg/dL 09/15/2024 12:16 PM [facility] Anion Gap 6 6 - 16 mmol/L 09/15/2024 12:16 PM [facility] BUN 32(H) 7 - 26 mg/dL 09/15/2024 12:16 PM [facility] Creatinine 1.71(H) 0.72 - 1.25 mg/dL 09/15/2024 12:16 PM [facility] Alkaline Phosphatase 122 40 - 150 U/L 09/15/2024 12:16 PM [facility] ALT 13 0 - 55 U/L 09/15/2024 12:16 PM [facility] AST 25 5 - 34 U/L 09/15/2024 12:16 PM [facility] Protein Total 5.7(L) 6.4 - 8.3 gm/dL 09/15/2024 12:16 PM [facility] Albumin 2.8(L) 3.4 - 5.0 gm/dL 09/15/2024 12:16 PM [facility] Bilirubin Total 0.4 0.2 - 1.2 mg/dL 09/15/2024 12:16 PM [facility] eGFR by CKD-EPI 38(L) >=90 mL/min/1.7 3 m2 09/15/2024 12:16 PM [facility] Blood BLOOD SPECIMEN / Unknown Lab Venipuncture / Unknown 09/15/2024 11:20 AM FRONT END ARCHITECT 09/15/2024 11:52 AM FRONT END ARCHITECT Kalee Juares NET PROGRAMMER-REGISTERED HEALTH NURSE LAB - CHEMIS TRY ORDERABLES [facility] [address], [place] [id number] * CT Head Wo Contrast (09/14/2024 5:31 PM FRONT END ARCHITECT) Only the most recent of3 resultswithin the time period is included. 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 Minimal interval increase in the size compared to prior study. Scattered hyperdense foci within the left chronic subdural hematoma could be secondary to prominent vasculature versus superimposed acute on chronic blood products, follow-up CT could be performed in 2023 hours. No significant mass effect or midline shift. Otherwise no new foci of hemorrhage > Interpreting Provider: Philomena Hopkins MD on 09/14/2024 5:46 PM Narrative 09/14/2024 5:46 PM FRONT END ARCHITECT PROCEDURE: ??CT HEAD WO CONTRAST, DATE/TIME OF EXAM: ??09/14/2024 5:32 PM, LOCATION ??[facility] INDICATION: W19.XXXA: Fall, initial encounter ADDITIONAL CLINICAL INFORMATION: Ordering Provider Reason For Exam: ??rule out ICH Technologist Note: Additional: COMPARISON: CT head 08/29/2024 TECHNIQUE: Noncontrast CT brain was performed utilizing standard protocol. CT dose reduction technique was used, including Automated Exposure Control. FINDINGS: Bilateral predominantly hypodense appearing subdural collections along the bilateral anterior cerebral convexities measuring up to 6 mm on the right side, 10 to 11 mm on the left side (image 31, series 6 previously measured about 6 to 7 mm on the right side and 9 to 10 mm on the left side. There is mild interval increase in the slight linear hyperdense foci involving the left cerebral extra-axial collection (image 11, series 4) image 42, series 6).. Mild mass effect on the bilateral anterior temporal poles, frontoparietal regions again noted.. The ventricles are of normal size, shape, and morphology. The basilar cisterns are patent. No mass effect or midline shift is seen. The pantoja-white matter differentiation is normal. Periventricular white matter hypoattenuation is indicative of chronic small vessel ischemic disease. There is vascular calcification of the carotid siphons. No acute calvarial fracture is identified. Other than bilateral cataract extractions, the orbits appear normal. There is mild paranasal sinus disease. Mild opacification of the bilateral mastoid air cells No soft tissue abnormality is identified. Procedure Note Philomena Hopkins MD - 09/14/2024 PROCEDURE: CT HEAD WO CONTRAST, DATE/TIME OF EXAM: 09/14/2024 5:32 PM, LOCATION [facility] INDICATION: W19.XXXA: Fall, initial encounter ADDITIONAL CLINICAL INFORMATION: Ordering Provider Reason For Exam: rule out ICH Technologist Note: Additional: COMPARISON: CT head 08/29/2024 TECHNIQUE: Noncontrast CT brain was performed utilizing standard protocol. CT dose reduction technique was used, including Automated ExposureControl. FINDINGS: Bilateral predominantly hypodense appearing subdural collections alongthe bilateral anterior cerebral convexities measuring up to 6 mm on theright side, 10 to 11 mm on the left side (image 31, series 6 previouslymeasured about 6 to 7 mm on the right side and 9 to 10 mm on the left side. Thereis mild interval increase in the slight linear hyperdense foci involvingthe left cerebral extra-axial collection (image 11, series 4) image 42,series 6).. Mild mass effect on the bilateral anterior temporal poles, frontoparietal regions again noted.. The ventricles are of normal size, shape, and morphology. The basilar cisterns are patent. No mass effector midline shift is seen. The pantoja-white matter differentiation is normal. Periventricular white matter hypoattenuation is indicative of chronicsmall vessel ischemic disease. There is vascular calcification of the carotid siphons. No acute calvarial fracture is identified. Other than bilateral cataract extractions, the orbits appear normal. There is mild paranasal sinus disease. Mild opacification of the bilateral mastoid air cells No soft tissue abnormality is identified. IMPRESSION: Bilateral predominantly hypodense subdural collections/chronic subdural hematomas again noted measuring up to 6 mm on the right side and 11 mmon the left side as described above. Minimal interval increase in the size compared to prior study. Scattered hyperdense foci within the left chronic subdural hematomacould be secondary to prominent vasculature versus superimposed acute onchronic blood products, follow-up CT could be performed in 2023 hours. No significant mass effect or midline shift. Otherwise no new foci of hemorrhage > Interpreting Provider: Philomena Hopkins MD on 09/14/2024 5:46 PM Eloy Ricardo MD CT ORDERABLES * TROPONIN-I HIGH SENSITIVE REFLEX 1HOUR (09/14/2024 3:45 PM FRONT END ARCHITECT) [facility] Troponin I High Sensitive 10 <=35 ng/L 09/14/2024 4:41 PM [facility] Delta Troponin I HS 09/14/2024 4:41 PM [facility] Comment:Delta value intentio shahida not calculated. Baseline to 1 hour specimen collection interval exceeded. Blood BLOOD SPECIMEN / Unknown Venipuncture / Unknown 09/14/2024 3:45 PM FRONT END ARCHITECT 09/14/2024 4:04 PM FRONT END ARCHITECT Eloy Ricardo MD LAB - CHEMISTRY ORD ERABLES [facility] [address] [place] [address], [facility] [phone] * (ABNORMAL) TEG 6S PLATELET MAPPING (09/14/2024 3:45 PM FRONT END ARCHITECT) Only the most recent of2 resultswithin the time period is included. [facility] TEGPLM (Max Amplitude) Koalin 69.2(H) 53.0 - 68.0 mm 09/14/2024 4:42 PM [facility] TEGPLM (Max Amplitude) ACTF 20.7(H) 2.0 - 19.0 mm 09/14/2024 4:42 PM [facility] TEGPLM (Max Amplitude) ADP 66.9 45.0 - 69.0 mm 09/14/2024 4:42 PM [facility] TEGPLM (Max Amplitude) AA 49.3(L) 51.0 - 71.0 mm 09/14/2024 4:42 PM [facility] Comment:AA MA below normal r abdi. Inhibition present. TEGPLM %Inhibition ADP 4.7 0.0 - 17.0 % 09/14/2024 4:42 PM [facility] TEGPLM %Inhibition AA 41.0(H) 0.0 - 11.0 % 09/14/2024 4:42 PM [facility] TEGPLM %Aggregation ADP 95.3 83.0 - 100.0 % 09/14/2024 4:42 PM FRONT END ARCHITECT [facility] TEGPLM % Aggregation AA 59.0(L) 89.0 - 100.0 % 09/14/2024 4:42 PM FRONT END ARCHITECT [facility] Blood BLOOD SPECIMEN / Unknown Venipuncture / Unknown 09/14/2024 3:45 PM FRONT END ARCHITECT 09/14/2024 4:04 PM FRONT END ARCHITECT Eloy Ricardo MD LAB - HEMATOLOGY OR DERABLES Performing Organization Address [facility]/State/[facility] Co de Phone Number [facility] [address] [place] [address], [facility] [phone] * XR CHEST 1VW PORTABLE (09/14/2024 2:49 PM FRONT END ARCHITECT) Only the most recent of2 resultswithin the time period is included. Anatomical Region Laterality Modality Chest Digital Radiogra phy 09/14/2024 5:40 PM FRONT END ARCHITECT Narrative 09/14/2024 8:37 PM FRONT END ARCHITECT PROCEDURE: ??XR CHEST 1VW PORTABLE, DATE/TIME OF EXAM: ??09/14/2024 2:49 PM, LOCATION ??[facility] INDICATION: W19.XXXA: Fall, initial encounter ADDITIONAL CLINICAL INFORMATION: Ordering Provider Reason For Exam: ??rule out pna COMPARISON: X-ray chest 08/27/2024. TECHNIQUE: Frontal radiograph of the chest. FINDINGS/IMPRESSION: There is no focal consolidation, pleural effusion, or pneumothorax. The cardiac silhouette is normal. There is atherosclerotic calcification of the aorta. The visible bony thorax is intact. Report dictated by Wesley Renner MD, (Air Conditioning Installer Supervisor). IJason MD have personally reviewed and interpreted this examination/study. > Interpreting Provider: Jason Mina MD on 09/14/2024 8:37 PM Procedure Note Jason Mina MD - 09/14/2024 PROCEDURE: XR CHEST 1VW PORTABLE, DATE/TIME OF EXAM: 09/14/2024 2:49PM, LOCATION [facility] INDICATION: W19.XXXA: Fall, initial encounter ADDITIONAL CLINICAL INFORMATION: Ordering Provider Reason For Exam: rule out pna COMPARISON: X-ray chest 08/27/2024. TECHNIQUE: Frontal radiograph of the chest. FINDINGS/IMPRESSION: There is no focal consolidation, pleural effusion, or pneumothorax. The cardiac silhouette is normal. There is atherosclerotic calcification ofthe aorta. The visible bony thorax is intact. Report dictated by Wesley Renner MD, (Air Conditioning Installer Supervisor). I, Jason Mina MD have personally reviewed and interpreted this examination/study. > Interpreting Provider: Jason Mina MD on 09/14/2024 8:37 PM Eloy Ricardo MD DIAGNOSTIC IMAGING ORDERABLES * PT-INR [facility] (09/14/2024 1:44 PM FRONT END ARCHITECT) Only the most recent of8 resultswithin the time period is included. PT 13.7 12.1 - 14.8 Seconds 09/14/2024 2:12 PM FRONT END ARCHITECT [facility] INR 1.1 See Comment 09/14/2024 2:12 PM FRONT END ARCHITECT [facility] Comment:The suggested therap eutic range for standard coumadin (warfarin) therapy is an INR of 2.0-3.0. For high-risk patients (Mechanical Mitral Valve Prosthesis, etc.), the suggested prophylactic therapeutic range is an INR of 2.5-3.5. Blood BLOOD SPECIMEN / Unknown Venipuncture / Unknown 09/14/2024 1:44 PM FRONT END ARCHITECT 09/14/2024 1:50 PM FRONT END ARCHITECT Eloy Ricardo MD LAB - COAGULATION O RDERABLES [facility] [address] [place] [phone], [facility] [phone] * URINALYSIS REFLEX MICROSCOPIC REFLEX CULTURE (09/14/2024 1:35 PM FRONT END ARCHITECT) Only the most recent of2 resultswithin the time period is included. Color UA Yellow Straw, Yellow 09/14/2024 2:01 PM FRONT END ARCHITECT [facility] Clarity UA Clear Clear 09/14/2024 2:01 PM FRONT END ARCHITECT [facility] Specific [place] UA 1.010 1.005 - 1.030 09/14/2024 2:01 PM [facility] pH UA 5.0 5.0 - 8.0 pH 09/14/2024 2:01 PM [facility] Protein UA Negative Negative 09/14/2024 2:01 PM [facility] Glucose UA Negative Negative 09/14/2024 2:01 PM [facility] Ketone UA Negative Negative 09/14/2024 2:01 PM [facility] Bilirubin UA Negative Negative 09/14/2024 2:01 PM [facility] Blood UA Negative Negative 09/14/2024 2:01 PM [facility] Nitrite UA Negative Negative 09/14/2024 2:01 PM [facility] Leukocyte Esterase Negative Negative 09/14/2024 2:01 PM [facility] Urobilinogen UA Negative Negative mg/dL 09/14/2024 2:01 PM [facility] Comment UA Microscopic not indicated. 09/14/2024 2:01 PM [facility] Urine URINE SPECIMEN OBTAINED BY CLEAN CATCH PROCEDURE / Unknown Collection / Unknown 09/14/2024 1:35 PM FRONT END ARCHITECT 09/14/2024 1:50 PM [facility] - 09/14/2024 2:01 PM FRONT END ARCHITECT Eloy Ricardo MD LAB - URINALYSIS OR DERABLES Performing Organization Address [facility]/State/ZIP Co de Phone Number [address] [address], [facility] [phone] * TEG 6 GLOBAL HEMOSTASIS W/ LYSIS (09/14/2024 1:34 PM FRONT END ARCHITECT) Only the most recent of2 resultswithin the time period is included. Citrated Kaolin R (Reaction Time) 6.2 4.6 - 9.1 min 09/14/2024 2:54 PM [facility] Citrated Kaolin LY30 (Lysis) 0.6 0.0 - 2.6 % 09/14/2024 2:54 PM [facility] Citrated Functional Fibrinogen MA (Max Amplitude) 30.7 15.0 - 32.0 mm 09/14/2024 2:54 PM [facility] Citrated RapidTEG MA (Max Amplitude) 69.2 52.0 - 70.0 mm 09/14/2024 2:54 PM FRONT END ARCHITECT [facility] Blood BLOOD SPECIMEN / Unknown Venipuncture / Unknown 09/14/2024 1:34 PM FRONT END ARCHITECT 09/14/2024 1:50 PM FRONT END ARCHITECT Eloy Ricardo MD LAB - HEMATOLOGY OR DERABLES Performing Organization Address City/[facility]/ZIP Co de Phone Number [address] [address], [place] [phone] * TROPONIN-I HIGH SENSITIVE BASELINE + 1HR (09/14/2024 1:34 PM FRONT END ARCHITECT) Troponin I High Sensitive 10 <=35 ng/L 09/14/2024 2:24 PM FRONT END ARCHITECT [facility] Blood BLOOD SPECIMEN / Unknown Venipuncture / Unknown 09/14/2024 1:34 PM FRONT END ARCHITECT 09/14/2024 1:50 PM FRONT END ARCHITECT Eloy Ricardo MD LAB - CHEMISTRY ORD ERABLES Performing Organization Address [facility]/ZIP Co de Phone Number [address] [address], [place] [phone] * TYPE + SCREEN PANEL (09/14/2024 1:34 PM FRONT END ARCHITECT) Only the most recent of2 resultswithin the time period is included. Antibody Screen NEG 2:38 PM FRONT END ARCHITECT [facility] ABO Rh B POS 09/14/2024 2:38 PM FRONT END ARCHITECT [facility] Blood Bank BLOOD SPECIMEN / Unknown Venipuncture / Unknown 09/14/2024 1:34 PM FRONT END ARCHITECT 09/14/2024 1:51 PM FRONT END ARCHITECT Eloy Ricardo MD LAB - BLOOD BANK OR DERABLES Performing Organization Address City/[facility]/ZIP Co de Phone Number [facility] [address] [place] [address], [place] [phone] * (ABNORMAL) LIPASE BLOOD (09/14/2024 1:34 PM FRONT END ARCHITECT) Lipase 80(H) 8 - 78 U/L 09/14/2024 2:20 PM FRONT END ARCHITECT [facility] Blood BLOOD SPECIMEN / Unknown Venipuncture / Unknown 09/14/2024 1:34 PM FRONT END ARCHITECT 09/14/2024 1:50 PM FRONT END ARCHITECT Narrative [facility] - 09/14/2024 2:20 PM FRONT END ARCHITECT Lipase results from the [employer] Alinity analyzer may not be comparable with other methodologies. Eloy Ricardo MD LAB - CHEMISTRY ORD ERABLES [facility] [address] [place] [address], [facility] [phone] * VAS Left Venous Duplex Ue (09/09/2024 11:37 AM FRONT END ARCHITECT) Anatomical Region Laterality Modality Upper Extremity Ultrasound 09/09/2024 9:48 AM FRONT END ARCHITECT Narrative Procedure Note Tunde Scott MD - 09/09/2024 Issa Taveras MD VASCULAR LAB ORDERAB LES * LEVETIRACETAM LEVEL (09/09/2024 6:43 AM FRONT END ARCHITECT) Levetiracetam 21 10 - 40 ug/mL 09/11/2024 5:37 AM FRONT END ARCHITECT [employer] ([facility]) Comment: INTERPRETIVE INFORMATION: Keppra (Levetiracetam) Therapeutic Range: ??10-40 ug/mL ?Toxic: ??Not well Established Pharmacokinetics of levetiracetam are affected by renal function. Adverse effects may include somnolence, weakness, headache and vomiting. This levetiracetam (Keppra) immunoassay uses the [employer] reagents, which has known cross-reactivity with the drug brivaracetam (Briviact) and may report inaccurate results. Patients transitioning from levetiracetam to brivaracetam or those who are using both medications should not monitor drug concentrations with the [employer] assay. These patients should be monitored using a validated chromatographic methodology that distinguishes between drugs to determine drug concentrations. Performed By: [facility] [[email or web address]] [facility] [address] [place] [address] Campus Police Officer: Carlos A Alamo MD, PhD CLIA Number: [id number] Blood BLOOD SPECIMEN / Unknown Lab Venipuncture / Unknown 09/09/2024 6:43 AM FRONT END ARCHITECT 09/09/2024 6:54 AM FRONT END ARCHITECT Baljit Pratt MD LAB - THERAPEUTIC DR [place] MONITORING ORDERABLES Performing Organization Address [facility]/ZIP Co de Phone Number [facility] ([facility]) [address] [place] [phone] [place] [address] * CULTURE BLOOD (09/08/2024 8:07 PM FRONT END ARCHITECT) [facility] Culture No growth day 5 GENE 09/14/2024 1:30 AM FRONT END ARCHITECT [facility] Blood PERIPHERAL BLOOD / Unknown Lab Venipuncture / Unknown 09/08/2024 8:07 PM FRONT END ARCHITECT 09/08/2024 9:01 PM FRONT END ARCHITECT Baljit Pratt MD LAB - MICROBIOLOGY O RDERABLES Performing Organization Address [facility] Co de Phone Number [facility] [address] [place] [address], [facility] [phone] * (ABNORMAL) FOLATE (09/08/2024 8:07 PM FRONT END ARCHITECT) Pathologist [facility] Folate 5.8(L) 7.0 - 31.4 ng/mL 09/08/2024 10:55 PM FRONT END ARCHITECT [facility] Blood BLOOD SPECIMEN / Unknown Lab Venipuncture / Unknown 09/08/2024 8:07 PM FRONT END ARCHITECT 09/08/2024 9:11 PM FRONT END ARCHITECT Baljit Pratt MD LAB - CHEMISTRY LISANDRO HUGHES Performing Organization Address City/[facility]/ZIP Co de Phone Number [address] [address], [place] [phone] * VITAMIN B12 (09/08/2024 8:07 PM FRONT END ARCHITECT) Vitamin B12 603 213 - 816 pg/mL 09/08/2024 10:55 PM [facility] Blood BLOOD SPECIMEN / Unknown Lab Venipuncture / Unknown 09/08/2024 8:07 PM FRONT END ARCHITECT 09/08/2024 9:11 PM FRONT END ARCHITECT Baljit Pratt MD LAB - CHEMISTRY LISANDRO HUGHES [facility] [address] [place] [address], [facility] [phone] * (ABNORMAL) IRON + TRANSFERRIN PANEL (09/08/2024 8:07 PM FRONT END ARCHITECT) Pathologist [facility] Iron 48(L) 50 - 175 ug/dL 09/08/2024 10:22 PM [facility] Transferrin 144(L) 174 - 382 mg/dL 09/08/2024 10:22 PM [facility] Transferrin Saturation % 27 16 - 50 % 09/08/2024 10:22 PM [facility] TIBC Calculated 180(L) 240 - 450 ug/dL 09/08/2024 10:22 PM [facility] Blood BLOOD SPECIMEN / Unknown Lab Venipuncture / Unknown 09/08/2024 8:07 PM FRONT END ARCHITECT 09/08/2024 9:01 PM FRONT END ARCHITECT Baljit Pratt MD LAB - CHEMISTRY LISANDRO HUGHES [facility] [address] [place] [phone], [place] [phone] * PHOSPHORUS BLOOD (09/08/2024 5:45 AM FRONT END ARCHITECT) Only the most recent of2 resultswithin the time period is included. Pathologist [facility] Emergency Department Phosphorus 3.2 2.8 - 5.1 mg/dL 09/08/2024 6:56 AM [facility] Blood BLOOD SPECIMEN / Unknown Lab Venipuncture / Unknown 09/08/2024 5:45 AM FRONT END ARCHITECT 09/08/2024 6:21 AM FRONT END ARCHITECT Issa Taveras MD LAB - CHEMISTRY LISANRDO HUGHES Performing Organization Address City/[facility]/ZIP Co de Phone Number [address] [address], [place] [phone] * MAGNESIUM BLOOD (09/08/2024 5:45 AM FRONT END ARCHITECT) Only the most recent of2 resultswithin the time period is included. Magnesium 1.8 1.6 - 2.6 mg/dL 09/08/2024 6:56 AM FRONT END ARCHITECT [facility] Blood BLOOD SPECIMEN / Unknown Lab Venipuncture / Unknown 09/08/2024 5:45 AM FRONT END ARCHITECT 09/08/2024 6:21 AM FRONT END ARCHITECT Issa Taveras MD LAB - CHEMISTRY LISANDRO HUGHES Performing Organization Address [facility]/ZIP Co de Phone Number [address] [address], [place] [phone] * (ABNORMAL) URINE MICROSCOPIC ONLY REFLEX TO CULTURE (09/07/2024 6:37 PM FRONT END ARCHITECT) Reflex Status Culture to follow 09/07/2024 7:26 PM FRONT END ARCHITECT [facility] WBC UA 11-20(A) None Seen, 0-5 /HPF 09/07/2024 7:26 PM FRONT END ARCHITECT [facility] Bacteria UA Trace(A) None /HPF 09/07/2024 7:26 PM FRONT END ARCHITECT [facility] Squamous Epithelial Cells UA None Seen None Seen, 0-2, 3-5 /HPF 09/07/2024 7:26 PM FRONT END ARCHITECT [facility] Urine URINE SPECIMEN OBTAINED BY CLEAN CATCH PROCEDURE / Unknown Collection / Unknown 09/07/2024 6:37 PM FRONT END ARCHITECT 09/07/2024 6:51 PM FRONT END ARCHITECT Narrative [facility] - 09/07/2024 7:26 PM FRONT END ARCHITECT Escobar Sorto MD LAB - URINALYSIS ORD ERAZAY Performing Organization Address City/[facility]/ZIP Co de Phone Number [address] [address], [facility] [phone] * (ABNORMAL) CULTURE URINE (09/07/2024 6:37 PM FRONT END ARCHITECT) Culture Urine >100,000 CFU/mL Staphylococcus aureus(A) GENE 09/09/2024 2:23 PM FRONT END ARCHITECT [facility] Comment:Staphylococcus aureu s methicillin-susceptible (MSSA) detected by penicillin binding protein immunoassay. Culture Urine 10,000-50,000 CFU/mL urogenital prema GENE 09/09/2024 2:23 PM FRONT END ARCHITECT [facility] Urine URINE SPECIMEN OBTAINED BY CLEAN CATCH PROCEDURE / Unknown Collection / Unknown 09/07/2024 6:37 PM FRONT END ARCHITECT 09/07/2024 7:26 PM FRONT END ARCHITECT Narrative [facility] - 09/09/2024 2:23 PM FRONT END ARCHITECT Staphylococcus aureus in urine may represent underlying bacteremia.?? ID consult strongly recommended. Organism Antibiotic Method Susceptibility Staphylococcus aureus Cefazolin GENE Susceptible Staphylococcus aureus Doxycycline GENE <=0.5 ug/mL: Susceptible Staphylococcus aureus Oxacillin GENE <=0.25 ug/mL: Susceptible Comment: Staphylococcus sensitivity to oxacillin predicts susceptibility for nafcillin, ampicillin/sulbactam, amoxicillin/clavulanate, piperacillin/tazobactam, all cephalosporins (except ceftazidime, ceftazidime/avibactam, ceftolozane/tazobactam), and all carbapenems. Escobar Sorto MD LAB - MICROBIOLOGY O RDERABLES [facility] [address] [place], [place] [address] [phone] * XR Humerus Left 2Vw or More (09/07/2024 6:31 PM FRONT END ARCHITECT) Anatomical Region Laterality Modality Upper Extremity Digital Radiogra phy 09/07/2024 6:56 PM FRONT END ARCHITECT Impressions 09/07/2024 9:40 PM FRONT END ARCHITECT IMPRESSION: No acute humeral fracture identified. Report dictated by Dante Mcclain MD, MD (president and chief executive officer). I, Jason Mina MD have personally reviewed and interpreted this examination/study. > Interpreting Provider: Jason Mina MD on 09/07/2024 9:40 PM Narrative 09/07/2024 9:40 PM FRONT END ARCHITECT PROCEDURE: ??XR HUMERUS LEFT 2VW OR MORE, DATE/TIME OF EXAM: ??09/07/2024 6:31 PM, LOCATION ??[facility] INDICATION: M79.89: Left arm swelling ADDITIONAL CLINICAL INFORMATION: Ordering Provider Reason For Exam: ??swelling Technologist Note: Additional: COMPARISON: None. FINDINGS: The humerus is intact without acute fracture. Bone density and texture are normal. No soft tissue swelling. Procedure Note Jason Mina MD - 09/07/2024 PROCEDURE: XR HUMERUS LEFT 2VW OR MORE, DATE/TIME OF EXAM: 46:31 PM, LOCATION [facility] INDICATION: M79.89: Left arm swelling ADDITIONAL CLINICAL INFORMATION: Ordering Provider Reason For Exam: swelling Technologist Note: Additional: COMPARISON: None. FINDINGS: The humerus is intact without acute fracture. Bone density and textureare normal. No soft tissue swelling. IMPRESSION: No acute humeral fracture identified. Report dictated by Dante Mcclain MD, (president and chief executive officer). I, Jason Mina MD have personally reviewed and interpreted this examination/study. > Interpreting Provider: Jason Mina MD on 09/07/2024 9:40 PM Escobar Sorto MD DIAGNOSTIC IMAGING O RDERABLES * PTT [facility] (09/07/2024 5:14 PM FRONT END ARCHITECT) Only the most recent of2 resultswithin the time period is included. APTT 30.2 23.0 - 38.4 Seconds 09/07/2024 5:42 PM FRONT END ARCHITECT [facility] Comment:Suggested therapeuti c range for full dose I.V. unfractionated heparin therapy for venous thromboembolism is 71 to 109 seconds. Blood BLOOD SPECIMEN / Unknown Venipuncture / Unknown 09/07/2024 5:14 PM FRONT END ARCHITECT 09/07/2024 5:19 PM FRONT END ARCHITECT Escobar Sorto MD LAB - COAGULATION OR DERABLES [facility] [address] [place] [address], [facility] [phone] * (ABNORMAL) C-REACTIVE PROTEIN (09/07/2024 5:14 PM FRONT END ARCHITECT) [facility] C-Reactive Protein 3.8(H) <=0.5 mg/dL 09/07/2024 5:57 PM FRONT END ARCHITECT [facility] Blood BLOOD SPECIMEN / Unknown Venipuncture / Unknown 09/07/2024 5:14 PM FRONT END ARCHITECT 09/07/2024 5:23 PM FRONT END ARCHITECT Escobar Sorto MD LAB - CHEMISTRY LISANDRO HUGHES Performing Organization Address [facility] Co de Phone Number [facility] [address] [place] [address], [facility] [phone] * (ABNORMAL) D-DIMER (09/07/2024 5:14 PM FRONT END ARCHITECT) [facility] D-Dimer Quantitative 1.16(H) <=0.50 mcg/mL FEU 09/07/2024 6:35 PM FRONT END ARCHITECT [facility] Comment: In the absence of clinical symptoms, a value less than or equal to 0.5 mcg/mL FEU significantly decreases the probability of PE/DVT (negative predictive value >95%). 1 mcg/mL FEU = 1 Fibrinogen Equivalent Unit (approximates 0.5 mcg/ml of D- Dimer). ?ISTH DIAGNOSTIC SCORING SYSTEM FOR DIC ?Score ?0 ? 1 ? 2 ?3 ?? Platelet Count(x10^3/uL) ?> 100 ?? < 100 ?? < 50 ?N/A PT Prolongation above ? upper limit of normal ?0-3 ? 3-6 ? > 6 ?N/A range (seconds) ? Fibrinogen (mg/dL) ?> 100 ?? < 100 ?N/A ?N/A D-Dimer (mcg/mL FEU) ? < 0.50 ?N/A ? 0.50-5.0 ??> 5 Calculate Cumulative Score: > or = 5 :compatible with overt DIC ? < 5 :suggestive for non-overt DIC N/A = Non applicable Reference: Br. J. Haematol. 145:24-33,2009. Blood BLOOD SPECIMEN / Unknown Venipuncture / Unknown 09/07/2024 5:14 PM FRONT END ARCHITECT 09/07/2024 5:19 PM FRONT END ARCHITECT Escobar Sorto MD LAB - COAGULATION OR DERABLES Performing Organization Address City/[facility]/ZIP Co de Phone Number [address] [address], [facility] [phone] * (ABNORMAL) ERYTHROCYTE SEDIMENTATION RATE (09/07/2024 5:14 PM FRONT END ARCHITECT) Erythrocyte Sedimentation Rate Westergren 55(H) 0 - 20 MM/HR 09/07/2024 5:41 PM FRONT END ARCHITECT [facility] Blood BLOOD SPECIMEN / Unknown Venipuncture / Unknown 09/07/2024 5:14 PM FRONT END ARCHITECT 09/07/2024 5:19 PM FRONT END ARCHITECT Escobar Sorto MD LAB - HEMATOLOGY ORD ERABLES Performing Organization Address [facility] Co de Phone Number [address] [address], [facility] [phone] * MRI Brain Wwo Contrast (09/05/2024 9:33 AM FRONT END ARCHITECT) Anatomical Region Laterality Modality Head Magnetic Resonan ce 09/06/2024 7:33 AM FRONT END ARCHITECT Impressions 09/06/2024 7:49 AM FRONT END ARCHITECT IMPRESSION: 1.Redemonstration of bilateral frontal convexity subdural collections demonstrating signal intensity higher than CSF on the FLAIR images, (series 5, image 13), 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 There is very minimal if any mass effect on the underlying brain parenchyma. 2.No evidence of acute intracranial findings or abnormal enhancement. 3.Generalized volume loss and nonspecific white matter changes, likely vascular related. 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 > Interpreting Provider: Kalyani Cortez MD on 09/06/2024 7:49 AM Narrative 09/06/2024 7:49 AM FRONT END ARCHITECT PROCEDURE: ??MRI BRAIN WWO CONTRAST, DATE/TIME OF EXAM: ??09/05/2024 9:34 AM, LOCATION ??[facility] INDICATION: R41.82: Altered mental status, unspecified altered mental status type ADDITIONAL CLINICAL INFORMATION: Ordering Provider Reason For Exam: ??Epilepsy protocol Technologist Note: ??Epilepsy protocol. Does the patient have a pacemaker or defibrillator?->No Does the patient have metal implants or stents?->No Additional: ??None. EXAMINATION: Magnetic resonance imaging (MRI) of the brain without and with contrast CONTRAST: ??GADOBUTROL 1 MMOL/ML IV SSM SO:7 mL TECHNIQUE: MRI of the brain was performed prior to and following the uneventful administration of 7 mL intravenous GADAVIST contrast according to epilepsy protocol. COMPARISON: CT of the head from 08/29/2024. 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 The right subdural collection measures approximately 0.7 cm and the left subdural collection measures approximately 0.9 cm, (series 5, image 15). Of note, the right cerebral subdural collection demonstrating slightly higher signal compared to the left but both of the collections demonstrating higher signal than CSF. This could relate to different age of these collections. There is very minimal if any mass effect on the underlying brain parenchyma. No evidence of acute cerebral infarction is seen. There is mild cerebral volume loss with associated ex vacuo ventricular dilatation. A tiny cavum septum pellucidum is present. No mass effect or midline shift is seen. Periventricular, subcortical, and pontine white matter FLAIR hyperintensities likely represent sequelae of chronic small vessel ischemic disease. No enhancing lesions are identified. There is a partial empty sella. The corpus callosum appears grossly unremarkable. Small CSF posterior to cerebellum may represent a nate-cisterna magna or small retrocerebellar arachnoid cyst. The posterior fossa, brainstem, and craniocervical junction appear otherwise grossly unremarkable. There is reduced caliber and increased FLAIR signal of the hippocampi bilaterally. 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 Clinical correlation is recommended. No distinct developmental abnormalities are identified. Other than bilateral cataract extractions, the visualized portions of the orbits appear otherwise grossly unremarkable optic nerve sheaths is are tortuous. There is mild paranasal sinus disease. There is diffuse opacification in the mastoid air cells bilaterally. Normal flow voids are demonstrated in the carotid arteries and basilar artery. The calvarium and visualized cervical spine appear grossly unremarkable. Procedure Note Kalyani Cortez MD - 09/06/2024 PROCEDURE: MRI BRAIN WWO CONTRAST, DATE/TIME OF EXAM: 09/05/2024 9:34AM, LOCATION [facility] INDICATION: R41.82: Altered mental status, unspecified altered mental status type ADDITIONAL CLINICAL INFORMATION: Ordering Provider Reason For Exam: Epilepsy protocol Technologist Note: Epilepsy protocol. Does the patient have a pacemakeror defibrillator?->No Does the patient have metal implants or stents?->No Additional: None. EXAMINATION: Magnetic resonance imaging (MRI) of the brain without andwith contrast CONTRAST: GADOBUTROL 1 MMOL/ML IV SSM SO:7 mL TECHNIQUE: MRI of the brain was performed prior to and following the uneventful administration of 7 mL intravenous GADAVIST contrastaccording to epilepsy protocol. COMPARISON: CT of the head from 08/29/2024. 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 The right subdural collection measures approximately 0.7 cm and the left subdural collection measures approximately 0.9 cm, (series 5, image 15).Of note, the right cerebral subdural collection demonstrating slightlyhigher signal compared to the left but both of the collections demonstrating higher signal than CSF. This could relate to different age of these collections. There is very minimal if any mass effect on the underlying brain parenchyma. No evidence of acute cerebral infarction is seen.There is mild cerebral volume loss with associated ex vacuo ventricular dilatation. A tiny cavum septum pellucidum is present. No mass effect or midline shift is seen. Periventricular, subcortical, and pontine white matter FLAIR hyperintensities likely represent sequelae of chronic small vessel ischemic disease. No enhancing lesions are identified. There is a partial empty sella. The corpus callosum appears grossly unremarkable. Small CSF posterior to cerebellum may represent a nate-cisterna magna or small retrocerebellar arachnoid cyst. The posterior fossa, brainstem,and craniocervical junction appear otherwise grossly unremarkable. There is reduced caliber and increased FLAIR signal of the hippocampibilaterally. 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 Clinical correlation is recommended. No distinct developmental abnormalities are identified. Other than bilateral cataract extractions, the visualized portions ofthe orbits appear otherwise grossly unremarkable optic nerve sheaths is are tortuous. There is mild paranasal sinus disease. There is diffuse opacification in the mastoid air cells bilaterally. Normal flow voidsare demonstrated in the carotid arteries and basilar artery. The calvariumand visualized cervical spine appear grossly unremarkable. 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 There is very minimal if any mass effect on the underlying brain parenchyma. 2.No evidence of acute intracranial findings or abnormal enhancement. 3.Generalized volume loss and nonspecific white matter changes, likely vascular related. 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 > Interpreting Provider: Kalyani Cortez MD on 09/06/2024 7:49 AM Amanda Dacosta MD MR ORDERABLES * EKG 12-LEAD (08/30/2024 1:59 PM FRONT END ARCHITECT) Pathologist [facility] Ventricular Rate 57 BPM [facility]USE Atrial Rate 57 BPM [facility] MUSE P-R Interval 206 ms [facility] QRS Duration ms 94 ms [facility] MUSE Q-T Interval ms 458 ms [facility] MUSE QTC Calculation (Bezet) 445 ms [facility] MUSE Calculated P [place] 8 degrees SL MUSE Calculated R [place] -3 degrees [facility] MUSE Calculated T [place] 44 degrees [facility] MUSE Interpretation EKG POOR DATA QUALITY, INTERPRETATION MAY BE ADVERSELY AFFECTED SINUS BRADYCARDIA INFERIOR INFARCT , AGE UNDETERMINED ABNORMAL ECG NO PREVIOUS ECGS AVAILABLE Confirmed by ERVIN ROMERO DO ([id number]) on 09/04/2024 9:29:42 PM [facility] MUSE 08/30/2024 1:59 PM FRONT END ARCHITECT 09/04/2024 9:29 PM FRONT END ARCHITECT Amanda Dacosta MD ECG ORDERABLES [facility] * XR Ankle Left 3Vw or More (08/30/2024 10:22 AM FRONT END ARCHITECT) Only the most recent of2 resultswithin the time period is included. Anatomical Region Laterality Modality Lower Extremity Digital Radiogra phy 08/30/2024 11:1 1 AM FRONT END ARCHITECT Impressions 08/30/2024 11:12 AM FRONT END ARCHITECT IMPRESSION: No fracture or subluxation or dislocation seen; no suspicious radiopaque foreign body identified. > Interpreting Provider: Tyree Tyler on 08/30/2024 11:12 AM Narrative 08/30/2024 11:12 AM FRONT END ARCHITECT PROCEDURE: ??XR ANKLE LEFT 3VW OR MORE DATE/TIME OF EXAM: ??08/30/2024 10:22 AM CLINICAL INFORMATION: None relevant/not provided if blank. Indication: W19.XXXA: Fall, initial encounter Additional History: COMPARISON: Left ankle radiograph 08/27/2024. Technique: AP, lateral and oblique views of left ankle were obtained. FINDINGS: No acute fracture or dislocation. Osseous mineralization is normal. Ankle mortise is maintained. Soft tissues are within normal limits. Procedure Note Tyree Tyler MD - 08/30/2024 PROCEDURE: XR ANKLE LEFT 3VW OR MORE DATE/TIME OF EXAM: 08/30/2024 10:22 AM CLINICAL INFORMATION: None relevant/not provided if blank. Indication: W19.XXXA: Fall, initial encounter Additional History: COMPARISON: Left ankle radiograph 08/27/2024. Technique: AP, lateral and oblique views of left ankle were obtained. FINDINGS: No acute fracture or dislocation. Osseous mineralization is normal.Ankle mortise is maintained. Soft tissues are within normal limits. IMPRESSION: No fracture or subluxation or dislocation seen; no suspicious radiopaque foreign body identified. > Interpreting Provider: Tyree Tyler on 08/30/2024 11:12 AM Keely Carmona MD DIAGNOSTIC IMAGING O RDERABLES * (ABNORMAL) URINALYSIS REFLEX TO MICROSCOPIC NO CULTURE (08/28/2024 8:52 PM FRONT END ARCHITECT) Color UA Yellow Straw, Yellow 08/28/2024 9:35 PM [facility] Clarity UA Clear Clear 08/28/2024 9:35 PM [facility] Specific [place] UA 1.035(H) 1.005 - 1.030 08/28/2024 9:35 PM [facility] pH UA 5.0 5.0 - 8.0 pH 08/28/2024 9:35 PM [facility] Protein UA Negative Negative 08/28/2024 9:35 PM [facility] Glucose UA Negative Negative 08/28/2024 9:35 PM [facility] Ketone UA 1+(A) Negative 08/28/2024 9:35 PM [facility] Bilirubin UA Negative Negative 08/28/2024 9:35 PM [facility] Blood UA Negative Negative 08/28/2024 9:35 PM [facility] Nitrite UA Negative Negative 08/28/2024 9:35 PM [facility] Leukocyte Esterase Negative Negative 08/28/2024 9:35 PM [facility] Urobilinogen UA 2.0(A) Negative mg/dL 08/28/2024 9:35 PM [facility] RBC UA 0-2 None Seen, 0-2, 3-5 /HPF 08/28/2024 9:35 PM [facility] WBC UA 0-5 None Seen, 0-5 /HPF 08/28/2024 9:35 PM [facility] Squamous Epithelial Cells UA None Seen None Seen, 0-2, 3-5 /HPF 08/28/2024 9:35 PM [facility] Mucus UA 1+ /LPF 08/28/2024 9:35 PM [facility] Urine URINE SPECIMEN OBTAINED BY CLEAN CATCH PROCEDURE / Unknown Collection / Unknown 08/28/2024 8:52 PM FRONT END ARCHITECT 08/28/2024 9:24 PM FRONT END ARCHITECT [facility] - 08/28/2024 9:35 PM FRONT END ARCHITECT Lincoln Rocha MD LAB - URINALYSIS OR DERABLES [facility] [address] [place] [address], [facility] [phone] * (ABNORMAL) URINE DRUG SCREEN IMMUNOASSAY (08/28/2024 8:52 PM FRONT END ARCHITECT) [facility] Amphetamines Screen Urine Negative Negative : < 1000 ng/mL 08/28/2024 9:45 PM [facility] Barbiturates Screen Urine Negative Negative : < 200 ng/mL 08/28/2024 9:45 PM [facility] Benzodiazepine Screen Urine Negative Negative : < 200 ng/mL 08/28/2024 9:45 PM [facility] Opiates Urine Negative Negative : < 300 ng/mL 08/28/2024 9:45 PM [facility] Cocaine Metabolites Urine Negative Negative : < 300 ng/mL 08/28/2024 9:45 PM [facility] Phencyclidine Screen Urine Negative Negative : < 25 ng/ml 08/28/2024 9:45 PM [facility] Cannabinoids Screen Urine Positive(A) Negative : <50 ng/mL 08/28/2024 9:45 PM [facility] Comment:Positive urine canna binoids (THC) screening results should be confirmed by another generally accepted non-immunological method such as gas chromatography or mass spectrometry. Methadone Screen Urine Negative Negative : < 300 ng/mL 08/28/2024 9:45 PM [facility] Fentanyl Screen Urine Negative Negative : <1.5 ng/mL 08/28/2024 9:45 PM [facility] Urine URINE / Unknown Collection / Unknown 08/28/2024 8:52 PM FRONT END ARCHITECT 08/28/2024 9:24 PM [facility] - 08/28/2024 9:45 PM FRONT END ARCHITECT The Urine Toxicology Screening Panel does not screen for Propoxyphene, Meprobamate, Carisoprodol, Trazodone, ztzt-tea-etclbko medications and/or volatiles (Acetone, Isopropanol, Methanol or Ethylene Glycol). Ethanol, Salicylate, Acetaminophen, Tricyclic Antidepressants and several therapeutic drugs may be individually assayed in serum or plasma specimen. Toxicology testing by the [facility] is an aid to medical diagnosis and treatment of patients. No documented chain of custody was maintained. Results are intended to be used for clinical purposes only. ? Lincoln Rocha MD LAB - URINE FOXER RY ORDERABLES Performing Organization Address [facility] Co de Phone Number [facility] [address] [place] [address], [email or web address] [phone] * BLOOD TYPE VERIFICATION (08/28/2024 8:23 PM FRONT END ARCHITECT) [facility] ABO Rh B POS 08/28/2024 9:1 4 PM FRONT END ARCHITECT [facility] Blood Bank BLOOD SPECIMEN / Unknown Lab Venipuncture / Unknown 08/28/2024 8:23 PM FRONT END ARCHITECT 08/28/2024 8:42 PM FRONT END ARCHITECT Lincoln Rocha MD LAB - BLOOD BANK OR DERABLES Performing Organization Address City/[facility] Co de Phone Number [facility] [address] [place] [address], [place] [phone] * SARS-COV-2 (COVID-19) RAPID (08/28/2024 11:05 AM FRONT END ARCHITECT) [facility] COVID-19 PCR Not detected Not detected 08/28/20 24 11:49 AM FRONT END ARCHITECT [facility] Microbiology SPECIMEN FROM NASOPHARYNGEAL STRUCTURE / Unknown Collection / Unknown 08/28/2024 11:05 AM FRONT END ARCHITECT 08/28/2024 11:12 AM FRONT END ARCHITECT Narrative [facility] - 08/28/2024 11:49 AM FRONT END ARCHITECT The Cepheid Xpert Xpress SARS-COV-2 has been authorized by the Food and Drug Administration (FDA) under an Emergency Use Authorization (EUA). This test has been validated in accordance with the FDA's guidance document Policy for Diagnostic Testing in Laboratories Certified to perform High Complexity Testing under CLIA prior to Emergency Use Authorization for Coronavirus Disease-2019 during the Public Health Emergency issued on November 30, 2019. FDA independent review of this validation is pending. This test is only authorized for the duration of the time the declaration that circumstances exist justifying the authorization of emergency use of in vitro diagnostic tests for detection of SARS-COV-2 virus and/or diagnosis of COVID-19 infection under 564(b) (1) of the Act. 21 U.S.C. 360bbb-3 (b) (1), unless the authorization is terminated or revoked sooner. Fact Sheets for this EUA assay are available upon request. Matthew Galvez MD LAB - MICROBIOLOGY O RDERABLES [address] [address], [facility] [phone] * XR Elbow Left 3Vw or More (08/27/2024 11:41 PM FRONT END ARCHITECT) Anatomical Region Laterality Modality Upper Extremity Digital Radiogra phy 08/28/2024 1:17 AM FRONT END ARCHITECT Impressions 08/28/2024 9:13 AM FRONT END ARCHITECT IMPRESSION: No acute fracture or dislocation identified. Report dictated by Dante Mcclain MD, (president and chief executive officer). I, Sho Minaya MD have personally reviewed and interpreted this examination/study. > Interpreting Provider: Sho Minaya MD on 08/28/2024 9:13 AM Narrative 08/28/2024 9:13 AM FRONT END ARCHITECT PROCEDURE: ??XR ELBOW LEFT 3VW OR MORE, DATE/TIME OF EXAM: ??08/27/2024 11:41 PM, LOCATION ??[facility] INDICATION: T14.90XA: Trauma ADDITIONAL CLINICAL INFORMATION: Ordering Provider Reason For Exam: Technologist Note: Additional: COMPARISON: None. FINDINGS: The osseous structures are intact and well aligned without acute fracture or dislocation. The joint spaces are preserved. No joint effusion is seen. Bone density and texture are normal. No soft tissue swelling is present. Procedure Note Sho Minaya MD - 08/28/2024 PROCEDURE: XR ELBOW LEFT 3VW OR MORE, DATE/TIME OF EXAM: 1:41 PM, LOCATION [facility] INDICATION: T14.90XA: Trauma ADDITIONAL CLINICAL INFORMATION: Ordering Provider Reason For Exam: Technologist Note: Additional: COMPARISON: None. FINDINGS: The osseous structures are intact and well aligned without acutefracture or dislocation. The joint spaces are preserved. No joint effusion isseen. Bone density and texture are normal. No soft tissue swelling is present. IMPRESSION: No acute fracture or dislocation identified. Report dictated by Dante Mcclain MD, (president and chief executive officer). Sho Macedo MD have personally reviewed and interpreted this examination/study. > Interpreting Provider: Sho Minaya MD on 08/28/2024 9:13 AM Lincoln Rocha MD DIAGNOSTIC IMAGING ORDERABLES * CT CHEST ABDOMEN PELVIS W CONT - Abdomen-pelvis trauma, blunt or penetrating (08/27/2024 11:34 PM FRONT END ARCHITECT) Anatomical Region Laterality Modality Chest, Abdomen, Pelvis Computed Tomography 08/27/2024 11:2 6 PM FRONT END ARCHITECT Impressions 08/28/2024 8:02 AM FRONT END ARCHITECT Impression: Mild limitations to the exam secondary to motion artifact. 1.MIldly displaced fracture of the right 11th posterior rib. 2.Subcutaneous soft tissue stranding the right flank favored represent a contusion in the setting of fall (series 7 image 74). 3.Mild groundglass opacities in the bilateral lower lobes favored to represent atelectasis. A component of this may represent a contusion of the right lower lobe given adjacent rib fracture. 4.No acute process in the abdomen or pelvis. > Dictated by Dorian Cuevas MD (president and chief executive officer). Tyree Macedo have personally reviewed and interpreted this examination/study. > Interpreting Provider: Tyree Tyler on 08/28/2024 8:02 AM Narrative 08/28/2024 8:02 AM FRONT END ARCHITECT PROCEDURE: ??CT CHEST ABDOMEN PELVIS W CONT, DATE/TIME OF EXAM: ??08/27/2024 11:36 PM, LOCATION ??[facility] INDICATION: Trauma ADDITIONAL CLINICAL INFORMATION: Ordering Provider Reason For Exam: Technologist Note: ??Per the technologist, difficult scan with the patient moving throughout the exam. Additional: COMPARISON: None. TECHNIQUE: CT of the chest, abdomen, and pelvis was performed after the uneventful administration of 100 mL of Isovue 370 intravenous contrast according to standard protocol. Findings: Chest: Mild limitations to the exam secondary to motion artifact. Lower Neck and Axillae: Normal. Lungs: Mild groundglass opacities in the bilateral lower lobes favored to represent atelectasis. A component of this may represent a contusion of the right lower lobe given adjacent rib fracture. No suspicious pulmonary nodules are identified. No pleural fluid or pneumothorax is present. Heart and Pericardium: The cardiac chambers are normal in size. No pericardial fluid or thickening is present. The coronary arteries are atherosclerotic. Mediastinum and Funmi: No mediastinal hemorrhage is present. No enlarged lymph nodes are present. Thoracic Vasculature: The aorta and its branch vessels are atherosclerotic. Abdomen/pelvis: Liver: Normal. Gallbladder and Bile Ducts: Normal. Spleen: Normal. Pancreas: Normal. Adrenals: Normal. Kidneys: Normal. Gastrointestinal: The stomach and visualized loops of small bowel are unremarkable. Colonic diverticulosis without evidence of diverticulitis is seen. Normal appendix. Mesentery/Peritoneum/Retroperitoneum: No free intraperitoneal air. No free fluid in the abdomen or pelvis. Pelvic structures: Evaluation limited secondary to metallic artifact from the left hip arthroplasty. The prostate is enlarged measuring 4.8 cm. Abdominal Vasculature: Atherosclerotic calcification of the aorta and its branch vessels. Bones: MIldly displaced fracture of the right 11th posterior rib. Bone windows demonstrate no suspicious lytic or blastic lesions. There are degenerative changes in the spine. Surgical anchors in the right humerus. Left hip arthroplasty. Soft tissues: Subcutaneous soft tissue stranding the right flank favored represent a contusion in the setting of fall (series 7 image 74 Procedure Note Tyree Tyler MD - 08/28/2024 PROCEDURE: CT CHEST ABDOMEN PELVIS W CONT, DATE/TIME OF EXAM:08/27/2024 11:36 PM, LOCATION [facility] INDICATION: Trauma ADDITIONAL CLINICAL INFORMATION: Ordering Provider Reason For Exam: Technologist Note: Per the technologist, difficult scan with thepatient moving throughout the exam. Additional: COMPARISON: None. TECHNIQUE: CT of the chest, abdomen, and pelvis was performed after the uneventful administration of 100 mL of Isovue 370 intravenous contrast according to standard protocol. Findings: Chest: Mild limitations to the exam secondary to motion artifact. Lower Neck and Axillae: Normal. Lungs: Mild groundglass opacities in the bilateral lower lobes favored to represent atelectasis. A component of this may represent a contusion ofthe right lower lobe given adjacent rib fracture. No suspicious pulmonary nodules are identified. No pleural fluid or pneumothorax is present. Heart and Pericardium: The cardiac chambers are normal in size. No pericardial fluid orthickening is present. The coronary arteries are atherosclerotic. Mediastinum and Funmi: No mediastinal hemorrhage is present. No enlarged lymph nodes arepresent. Thoracic Vasculature: The aorta and its branch vessels are atherosclerotic. Abdomen/pelvis: Liver: Normal. Gallbladder and Bile Ducts: Normal. Spleen: Normal. Pancreas: Normal. Adrenals: Normal. Kidneys: Normal. Gastrointestinal: The stomach and visualized loops of small bowel are unremarkable.Colonic diverticulosis without evidence of diverticulitis is seen. Normalappendix. Mesentery/Peritoneum/Retroperitoneum: No free intraperitoneal air. No free fluid in the abdomen or pelvis. Pelvic structures: Evaluation limited secondary to metallic artifact from the left hip arthroplasty. The prostate is enlarged measuring 4.8 cm. Abdominal Vasculature: Atherosclerotic calcification of the aorta and its branch vessels. Bones: MIldly displaced fracture of the right 11th posterior rib. Bone windows demonstrate no suspicious lytic or blastic lesions. Thereare degenerative changes in the spine. Surgical anchors in the righthumerus. Left hip arthroplasty. Soft tissues: Subcutaneous soft tissue stranding the right flank favored represent a contusion in the setting of fall (series 7 image 74 Impression: Mild limitations to the exam secondary to motion artifact. 1.MIldly displaced fracture of the right 11th posterior rib. 2.Subcutaneous soft tissue stranding the right flank favored represent a contusion in the setting of fall (series 7 image 74). 3.Mild groundglass opacities in the bilateral lower lobes favored to represent atelectasis. A component of this may represent a contusion ofthe right lower lobe given adjacent rib fracture. 4.No acute process in the abdomen or pelvis. > Dictated by Dorian Cuevas MD (president and chief executive officer). Tyree Macedo have personally reviewed and interpreted this examination/study. > Interpreting Provider: Tyree Tyler on 08/28/2024 8:02 AM Lincoln Rocha MD CT ORDERABLES * CT LUMBAR SPINE WO CONTRAST - T/L-spine trauma, Spine fracture (08/27/2024 11:34 PM FRONT END ARCHITECT) Anatomical Region Laterality Modality Spine Computed Tomogra phy 08/27/2024 11:4 7 PM FRONT END ARCHITECT Impressions 08/28/2024 6:41 AM FRONT END ARCHITECT IMPRESSION: Significant motion artifact limits evaluation for subtle bleeds and fractures. 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 No significant mass effect. No midline shift. No additional intra- or extra-axial hemorrhage. 2.No acute facial bone identified. 3.No evidence of acute fracture in the cervical, thoracic, or lumbar spine. 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 5.Please refer to the concurrent, dedicated body report for findings in the chest, abdomen, and pelvis. The report is dictated by Dante Mcclain MD (president and chief executive officer) Kalyani Macedo MD have personally reviewed and interpreted this examination/study. > Interpreting Provider: Kalyani Cortez MD on 08/28/2024 6:41 AM Narrative 08/28/2024 6:41 AM FRONT END ARCHITECT PROCEDURE: ??CT HEAD WO CONTRAST, CT LUMBAR SPINE WO CONTRAST, CT THORACIC SPINE WO CONTRAST, CT CERVICAL SPINE WO CONTRAST, CT FACIAL BONES WO CONTRAST, DATE/TIME OF EXAM: ??08/27/2024 11:36 PM, LOCATION ??[facility] INDICATION: Trauma ADDITIONAL CLINICAL INFORMATION: Ordering Provider Reason For Exam: ??Trauma. Technologist Note: ??None. Additional: ??None. EXAMINATION: 1.Computed tomography (CT) of the head without contrast 2.CT of the maxillofacial bones, orbits, and paranasal sinuses without contrast 3.CT of the cervical spine without contrast 4.CT of the thoracic spine without contrast 5.CT of the lumbar spine without contrast TECHNIQUE: CT of the head, cervical spine, and maxillofacial bones, orbits, and paranasal sinuses was performed without contrast according to standard protocol. Reformatted axial, sagittal, and coronal images of the thoracic and lumbar spine were obtained by the technologist from a concurrently performed body CT and sent to the workstation for review. CT dose reduction technique was used, including Automated Exposure Control. COMPARISON: No prior study is available for comparison at the time of this dictation. FINDINGS: The study is degraded by motion artifacts which can obscure abnormalities. Head: Significant motion artifact limits evaluation for subtle abnormalities. Chronic appearing bilateral subdural collections/hematomas measuring up to 9 mm in maximal thickness along the bifrontal lobes. No significant effacement of the underlying cerebral sulci. No midline shift. No additional intra- or extra-axial hemorrhage. There is mild cerebral volume loss with associated ex vacuo ventricular dilatation. The basal cisterns are patent. The pantoja-white matter differentiation is normal. Periventricular white matter hypoattenuation is a nonspecific finding that may be indicative of chronic small vessel ischemic disease. There is atherosclerotic calcification of the carotid siphons. No acute calvarial fracture is identified. Maxillofacial: Significant motion artifact through the orbits, frontal, ethmoid and nasal bones severely degrades evaluation for fractures in these regions. Other than bilateral cataract extractions, the orbits including the globes, optic nerves, retrobulbar fat and extraocular muscles appear normal. The paranasal sinuses are clear. The hard palate, mandible, and temporomandibular joints appear normal. The mastoid air cells are clear. No obvious facial bone fractures are identified. No soft tissue abnormality is identified. Cervical spine: Significant motion artifact limits evaluation for subtle fractures. Mild dextrocurvature of the cervical spine. Minimal anterolisthesis of C4 on C5 The alignment is otherwise maintained. The prevertebral soft tissue is normal in thickness. The bones are mildly osteopenic. Vertebral bodies are normal in height without evidence of acute fracture. Other than advanced middle atlantoaxial joint osteoarthritis, the craniocervical junction appears normal. There is mild to severe multilevel degenerative disc disease. Mild multilevel central canal stenosis. There are varying degrees of mild to moderate facet osteoarthritis. There are varying degrees of mild uncovertebral joint osteoarthritis with the same degree of neural foraminal stenosis at these levels. There is atherosclerotic calcification of the carotid bifurcations. Thoracic spine: Mild S-shaped curvature of the thoracic spine. Slight exaggeration of the thoracic kyphosis. The alignment is otherwise maintained. The bones are mildly osteopenic. Vertebral bodies are normal in height without evidence of acute fracture. Schmorl's nodes noted at multiple levels. 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 The central canal is patent. There are varying degrees of mild to moderate facet osteoarthritis with the same degree of neural foraminal stenosis at these levels. There is atherosclerotic calcification of the thoracic aorta and its branch vessels. Bibasilar streaky and groundglass opacities. There are atherosclerotic calcifications of the coronary arteries. Small calcified granuloma in the right lung base.. Lumbar spine: Significant motion artifact limits evaluation for subtle fractures. There are postoperative findings of posterior spinal decompression at L3-L4. Dextrocurvature of the lumbar spine. Mild grade 1 retrolisthesis of L3 on L4. No traumatic malalignment. The bones are mildly osteopenic. Vertebral bodies are normal in height without evidence of acute fracture. There is up to severe multilevel degenerative disc disease. The central canal is moderately stenotic at L1-L2 and L5-S1 and mild at L2-L3 There are varying degrees of up to severe facet osteoarthritis with the same degree of neural foraminal stenosis at these levels. There is atherosclerotic calcification of the abdominal aorta and its branch vessels. There are degenerative changes of the SI joints. Partially imaged screws in the left hemipelvis. Procedure Note Kalyani Cortez MD - 08/28/2024 PROCEDURE: CT HEAD WO CONTRAST, CT LUMBAR SPINE WO CONTRAST, CTTHORACIC SPINE WO CONTRAST, CT CERVICAL SPINE WO CONTRAST, CT FACIAL BONES WO CONTRAST, DATE/TIME OF EXAM: 08/27/2024 11:36 PM, LOCATION [facility] INDICATION: Trauma ADDITIONAL CLINICAL INFORMATION: Ordering Provider Reason For Exam: Trauma. Technologist Note: None. Additional: None. EXAMINATION: 1.Computed tomography (CT) of the head without contrast 2.CT of the maxillofacial bones, orbits, and paranasal sinuses without contrast 3.CT of the cervical spine without contrast 4.CT of the thoracic spine without contrast 5.CT of the lumbar spine without contrast TECHNIQUE: CT of the head, cervical spine, and maxillofacial bones,orbits, and paranasal sinuses was performed without contrast according tostandard protocol. Reformatted axial, sagittal, and coronal images of thethoracic and lumbar spine were obtained by the technologist from a concurrently performed body CT and sent to the workstation for review. CT dosereduction technique was used, including Automated Exposure Control. COMPARISON: No prior study is available for comparison at the time ofthis dictation. FINDINGS: The study is degraded by motion artifacts which can obscureabnormalities. Head: Significant motion artifact limits evaluation for subtle abnormalities. Chronic appearing bilateral subdural collections/hematomas measuring upto 9 mm in maximal thickness along the bifrontal lobes. No significant effacement of the underlying cerebral sulci. No midline shift. No additional intra- or extra-axial hemorrhage. There is mild cerebral volume loss with associated ex vacuo ventricular dilatation. The basal cisterns are patent. The pantoja-white matter differentiation is normal. Periventricular white matter hypoattenuation is a nonspecific findingthat may be indicative of chronic small vessel ischemic disease. There is atherosclerotic calcification of the carotid siphons. No acute calvarial fracture is identified. Maxillofacial: Significant motion artifact through the orbits, frontal, ethmoid andnasal bones severely degrades evaluation for fractures in these regions. Other than bilateral cataract extractions, the orbits including theglobes, optic nerves, retrobulbar fat and extraocular muscles appear normal. The paranasal sinuses are clear. The hard palate, mandible, and temporomandibular joints appear normal. The mastoid air cells are clear.No obvious facial bone fractures are identified. No soft tissue abnormalityis identified. Cervical spine: Significant motion artifact limits evaluation for subtle fractures. Mild dextrocurvature of the cervical spine. Minimal anterolisthesis ofC4 on C5 The alignment is otherwise maintained. The prevertebral softtissue is normal in thickness. The bones are mildly osteopenic. Vertebralbodies are normal in height without evidence of acute fracture. Other than advanced middle atlantoaxial joint osteoarthritis, the craniocervical junction appears normal. There is mild to severe multilevel degenerative disc disease. Mild multilevel central canal stenosis. There are varying degrees of mild to moderate facet osteoarthritis. There are varyingdegrees of mild uncovertebral joint osteoarthritis with the same degree ofneural foraminal stenosis at these levels. There is atheroscleroticcalcification of the carotid bifurcations. Thoracic spine: Mild S-shaped curvature of the thoracic spine. Slight exaggeration ofthe thoracic kyphosis. The alignment is otherwise maintained. The bones are mildly osteopenic. Vertebral bodies are normal in height withoutevidence of acute fracture. Schmorl's nodes noted at multiple levels. There ismild multilevel degenerative disc disease. The central canal is patent. There are varying degrees of mild to moderate facet osteoarthritis with thesame degree of neural foraminal stenosis at these levels. There is atherosclerotic calcification of the thoracic aorta and itsbranch vessels. Bibasilar streaky and groundglass opacities. There are atherosclerotic calcifications of the coronary arteries. Small calcified granuloma in the right lung base.. Lumbar spine: Significant motion artifact limits evaluation for subtle fractures. There are postoperative findings of posterior spinal decompression at L3-L4. Dextrocurvature of the lumbar spine. Mild grade 1 retrolisthesisof L3 on L4. No traumatic malalignment. The bones are mildly osteopenic. Vertebral bodies are normal in height without evidence of acutefracture. There is up to severe multilevel degenerative disc disease. The central canal is moderately stenotic at L1-L2 and L5-S1 and mild at L2-L3 Thereare varying degrees of up to severe facet osteoarthritis with the samedegree of neural foraminal stenosis at these levels. There is atherosclerotic calcification of the abdominal aorta and its branch vessels. There are degenerative changes of the SI joints.Partially imaged screws in the left hemipelvis. IMPRESSION: Significant motion artifact limits evaluation for subtle bleeds and fractures. 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 No significant mass effect. No midline shift. No additional intra- or extra-axial hemorrhage. 2.No acute facial bone identified. 3.No evidence of acute fracture in the cervical, thoracic, or lumbarspine. 4.Multilevel degenerative disc and joint disease of the spine asdetailed above. 5.Please refer to the concurrent, dedicated body report for findings inthe chest, abdomen, and pelvis. The report is dictated by Dante Mcclain MD (president and chief executive officer) IKalyani MD have personally reviewed and interpretedthis examination/study. > Interpreting Provider: Kalyani Cortez MD on 08/28/2024 6:41 AM Lincoln Rocha MD CT ORDERABLES * CT THORACIC SPINE WO CONTRAST - T/L-spine trauma, spine fracture (08/27/2024 11:34 PM FRONT END ARCHITECT) Anatomical Region Laterality Modality Spine Computed Tomogra phy 08/27/2024 11:4 7 PM FRONT END ARCHITECT Impressions 08/28/2024 6:41 AM FRONT END ARCHITECT IMPRESSION: Significant motion artifact limits evaluation for subtle bleeds and fractures. 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 No significant mass effect. No midline shift. No additional intra- or extra-axial hemorrhage. 2.No acute facial bone identified. 3.No evidence of acute fracture in the cervical, thoracic, or lumbar spine. 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 5.Please refer to the concurrent, dedicated body report for findings in the chest, abdomen, and pelvis. The report is dictated by Dante Mcclain MD (president and chief executive officer) I, Kalyani Cortez MD have personally reviewed and interpreted this examination/study. > Interpreting Provider: Kalyani Cortez MD on 08/28/2024 6:41 AM Narrative 08/28/2024 6:41 AM FRONT END ARCHITECT PROCEDURE: ??CT HEAD WO CONTRAST, CT LUMBAR SPINE WO CONTRAST, CT THORACIC SPINE WO CONTRAST, CT CERVICAL SPINE WO CONTRAST, CT FACIAL BONES WO CONTRAST, DATE/TIME OF EXAM: ??08/27/2024 11:36 PM, LOCATION ??[facility] INDICATION: Trauma ADDITIONAL CLINICAL INFORMATION: Ordering Provider Reason For Exam: ??Trauma. Technologist Note: ??None. Additional: ??None. EXAMINATION: 1.Computed tomography (CT) of the head without contrast 2.CT of the maxillofacial bones, orbits, and paranasal sinuses without contrast 3.CT of the cervical spine without contrast 4.CT of the thoracic spine without contrast 5.CT of the lumbar spine without contrast TECHNIQUE: CT of the head, cervical spine, and maxillofacial bones, orbits, and paranasal sinuses was performed without contrast according to standard protocol. Reformatted axial, sagittal, and coronal images of the thoracic and lumbar spine were obtained by the technologist from a concurrently performed body CT and sent to the workstation for review. CT dose reduction technique was used, including Automated Exposure Control. COMPARISON: No prior study is available for comparison at the time of this dictation. FINDINGS: The study is degraded by motion artifacts which can obscure abnormalities. Head: Significant motion artifact limits evaluation for subtle abnormalities. Chronic appearing bilateral subdural collections/hematomas measuring up to 9 mm in maximal thickness along the bifrontal lobes. No significant effacement of the underlying cerebral sulci. No midline shift. No additional intra- or extra-axial hemorrhage. There is mild cerebral volume loss with associated ex vacuo ventricular dilatation. The basal cisterns are patent. The pantoja-white matter differentiation is normal. Periventricular white matter hypoattenuation is a nonspecific finding that may be indicative of chronic small vessel ischemic disease. There is atherosclerotic calcification of the carotid siphons. No acute calvarial fracture is identified. Maxillofacial: Significant motion artifact through the orbits, frontal, ethmoid and nasal bones severely degrades evaluation for fractures in these regions. Other than bilateral cataract extractions, the orbits including the globes, optic nerves, retrobulbar fat and extraocular muscles appear normal. The paranasal sinuses are clear. The hard palate, mandible, and temporomandibular joints appear normal. The mastoid air cells are clear. No obvious facial bone fractures are identified. No soft tissue abnormality is identified. Cervical spine: Significant motion artifact limits evaluation for subtle fractures. Mild dextrocurvature of the cervical spine. Minimal anterolisthesis of C4 on C5 The alignment is otherwise maintained. The prevertebral soft tissue is normal in thickness. The bones are mildly osteopenic. Vertebral bodies are normal in height without evidence of acute fracture. Other than advanced middle atlantoaxial joint osteoarthritis, the craniocervical junction appears normal. There is mild to severe multilevel degenerative disc disease. Mild multilevel central canal stenosis. There are varying degrees of mild to moderate facet osteoarthritis. There are varying degrees of mild uncovertebral joint osteoarthritis with the same degree of neural foraminal stenosis at these levels. There is atherosclerotic calcification of the carotid bifurcations. Thoracic spine: Mild S-shaped curvature of the thoracic spine. Slight exaggeration of the thoracic kyphosis. The alignment is otherwise maintained. The bones are mildly osteopenic. Vertebral bodies are normal in height without evidence of acute fracture. Schmorl's nodes noted at multiple levels. 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 The central canal is patent. There are varying degrees of mild to moderate facet osteoarthritis with the same degree of neural foraminal stenosis at these levels. There is atherosclerotic calcification of the thoracic aorta and its branch vessels. Bibasilar streaky and groundglass opacities. There are atherosclerotic calcifications of the coronary arteries. Small calcified granuloma in the right lung base.. Lumbar spine: Significant motion artifact limits evaluation for subtle fractures. There are postoperative findings of posterior spinal decompression at L3-L4. Dextrocurvature of the lumbar spine. Mild grade 1 retrolisthesis of L3 on L4. No traumatic malalignment. The bones are mildly osteopenic. Vertebral bodies are normal in height without evidence of acute fracture. There is up to severe multilevel degenerative disc disease. The central canal is moderately stenotic at L1-L2 and L5-S1 and mild at L2-L3 There are varying degrees of up to severe facet osteoarthritis with the same degree of neural foraminal stenosis at these levels. There is atherosclerotic calcification of the abdominal aorta and its branch vessels. There are degenerative changes of the SI joints. Partially imaged screws in the left hemipelvis. Procedure Note Kalyani Cortez MD - 08/28/2024 PROCEDURE: CT HEAD WO CONTRAST, CT LUMBAR SPINE WO CONTRAST, CTTHORACIC SPINE WO CONTRAST, CT CERVICAL SPINE WO CONTRAST, CT FACIAL BONES WO CONTRAST, DATE/TIME OF EXAM: 08/27/2024 11:36 PM, LOCATION [facility] INDICATION: Trauma ADDITIONAL CLINICAL INFORMATION: Ordering Provider Reason For Exam: Trauma. Technologist Note: None. Additional: None. EXAMINATION: 1.Computed tomography (CT) of the head without contrast 2.CT of the maxillofacial bones, orbits, and paranasal sinuses without contrast 3.CT of the cervical spine without contrast 4.CT of the thoracic spine without contrast 5.CT of the lumbar spine without contrast TECHNIQUE: CT of the head, cervical spine, and maxillofacial bones,orbits, and paranasal sinuses was performed without contrast according tostandard protocol. Reformatted axial, sagittal, and coronal images of thethoracic and lumbar spine were obtained by the technologist from a concurrently performed body CT and sent to the workstation for review. CT dosereduction technique was used, including Automated Exposure Control. COMPARISON: No prior study is available for comparison at the time ofthis dictation. FINDINGS: The study is degraded by motion artifacts which can obscureabnormalities. Head: Significant motion artifact limits evaluation for subtle abnormalities. Chronic appearing bilateral subdural collections/hematomas measuring upto 9 mm in maximal thickness along the bifrontal lobes. No significant effacement of the underlying cerebral sulci. No midline shift. No additional intra- or extra-axial hemorrhage. There is mild cerebral volume loss with associated ex vacuo ventricular dilatation. The basal cisterns are patent. The pantoja-white matter differentiation is normal. Periventricular white matter hypoattenuation is a nonspecific findingthat may be indicative of chronic small vessel ischemic disease. There is atherosclerotic calcification of the carotid siphons. No acute calvarial fracture is identified. Maxillofacial: Significant motion artifact through the orbits, frontal, ethmoid andnasal bones severely degrades evaluation for fractures in these regions. Other than bilateral cataract extractions, the orbits including theglobes, optic nerves, retrobulbar fat and extraocular muscles appear normal. The paranasal sinuses are clear. The hard palate, mandible, and temporomandibular joints appear normal. The mastoid air cells are clear.No obvious facial bone fractures are identified. No soft tissue abnormalityis identified. Cervical spine: Significant motion artifact limits evaluation for subtle fractures. Mild dextrocurvature of the cervical spine. Minimal anterolisthesis ofC4 on C5 The alignment is otherwise maintained. The prevertebral softtissue is normal in thickness. The bones are mildly osteopenic. Vertebralbodies are normal in height without evidence of acute fracture. Other than advanced middle atlantoaxial joint osteoarthritis, the craniocervical junction appears normal. There is mild to severe multilevel degenerative disc disease. Mild multilevel central canal stenosis. There are varying degrees of mild to moderate facet osteoarthritis. There are varyingdegrees of mild uncovertebral joint osteoarthritis with the same degree ofneural foraminal stenosis at these levels. There is atheroscleroticcalcification of the carotid bifurcations. Thoracic spine: Mild S-shaped curvature of the thoracic spine. Slight exaggeration ofthe thoracic kyphosis. The alignment is otherwise maintained. The bones are mildly osteopenic. Vertebral bodies are normal in height withoutevidence of acute fracture. Schmorl's nodes noted at multiple levels. There ismild multilevel degenerative disc disease. The central canal is patent. There are varying degrees of mild to moderate facet osteoarthritis with thesame degree of neural foraminal stenosis at these levels. There is atherosclerotic calcification of the thoracic aorta and itsbranch vessels. Bibasilar streaky and groundglass opacities. There are atherosclerotic calcifications of the coronary arteries. Small calcified granuloma in the right lung base.. Lumbar spine: Significant motion artifact limits evaluation for subtle fractures. There are postoperative findings of posterior spinal decompression at L3-L4. Dextrocurvature of the lumbar spine. Mild grade 1 retrolisthesisof L3 on L4. No traumatic malalignment. The bones are mildly osteopenic. Vertebral bodies are normal in height without evidence of acutefracture. There is up to severe multilevel degenerative disc disease. The central canal is moderately stenotic at L1-L2 and L5-S1 and mild at L2-L3 Thereare varying degrees of up to severe facet osteoarthritis with the samedegree of neural foraminal stenosis at these levels. There is atherosclerotic calcification of the abdominal aorta and its branch vessels. There are degenerative changes of the SI joints.Partially imaged screws in the left hemipelvis. IMPRESSION: Significant motion artifact limits evaluation for subtle bleeds and fractures. 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 No significant mass effect. No midline shift. No additional intra- or extra-axial hemorrhage. 2.No acute facial bone identified. 3.No evidence of acute fracture in the cervical, thoracic, or lumbarspine. 4.Multilevel degenerative disc and joint disease of the spine asdetailed above. 5.Please refer to the concurrent, dedicated body report for findings inthe chest, abdomen, and pelvis. The report is dictated by Dante Mcclain MD (president and chief executive officer) I, Kalyani Cortez MD have personally reviewed and interpretedthis examination/study. > Interpreting Provider: Kalyani Cortez MD on 08/28/2024 6:41 AM Lincoln Rocha MD CT ORDERABLES * CT CERVICAL SPINE WO CONTRAST - C-Spine Trauma, Spine fracture (08/27/2024 11:34 PM FRONT END ARCHITECT) Anatomical Region Laterality Modality Spine Computed Tomogra phy 08/27/2024 11:4 7 PM FRONT END ARCHITECT Impressions 08/28/2024 6:41 AM FRONT END ARCHITECT IMPRESSION: Significant motion artifact limits evaluation for subtle bleeds and fractures. 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 No significant mass effect. No midline shift. No additional intra- or extra-axial hemorrhage. 2.No acute facial bone identified. 3.No evidence of acute fracture in the cervical, thoracic, or lumbar spine. 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 5.Please refer to the concurrent, dedicated body report for findings in the chest, abdomen, and pelvis. The report is dictated by Dante Mcclain MD (president and chief executive officer) I, Kalyani Cortez MD have personally reviewed and interpreted this examination/study. > Interpreting Provider: Kalyani Cortez MD on 08/28/2024 6:41 AM Narrative 08/28/2024 6:41 AM FRONT END ARCHITECT PROCEDURE: ??CT HEAD WO CONTRAST, CT LUMBAR SPINE WO CONTRAST, CT THORACIC SPINE WO CONTRAST, CT CERVICAL SPINE WO CONTRAST, CT FACIAL BONES WO CONTRAST, DATE/TIME OF EXAM: ??08/27/2024 11:36 PM, LOCATION ??[facility] INDICATION: Trauma ADDITIONAL CLINICAL INFORMATION: Ordering Provider Reason For Exam: ??Trauma. Technologist Note: ??None. Additional: ??None. EXAMINATION: 1.Computed tomography (CT) of the head without contrast 2.CT of the maxillofacial bones, orbits, and paranasal sinuses without contrast 3.CT of the cervical spine without contrast 4.CT of the thoracic spine without contrast 5.CT of the lumbar spine without contrast TECHNIQUE: CT of the head, cervical spine, and maxillofacial bones, orbits, and paranasal sinuses was performed without contrast according to standard protocol. Reformatted axial, sagittal, and coronal images of the thoracic and lumbar spine were obtained by the technologist from a concurrently performed body CT and sent to the workstation for review. CT dose reduction technique was used, including Automated Exposure Control. COMPARISON: No prior study is available for comparison at the time of this dictation. FINDINGS: The study is degraded by motion artifacts which can obscure abnormalities. Head: Significant motion artifact limits evaluation for subtle abnormalities. Chronic appearing bilateral subdural collections/hematomas measuring up to 9 mm in maximal thickness along the bifrontal lobes. No significant effacement of the underlying cerebral sulci. No midline shift. No additional intra- or extra-axial hemorrhage. There is mild cerebral volume loss with associated ex vacuo ventricular dilatation. The basal cisterns are patent. The pantoja-white matter differentiation is normal. Periventricular white matter hypoattenuation is a nonspecific finding that may be indicative of chronic small vessel ischemic disease. There is atherosclerotic calcification of the carotid siphons. No acute calvarial fracture is identified. Maxillofacial: Significant motion artifact through the orbits, frontal, ethmoid and nasal bones severely degrades evaluation for fractures in these regions. Other than bilateral cataract extractions, the orbits including the globes, optic nerves, retrobulbar fat and extraocular muscles appear normal. The paranasal sinuses are clear. The hard palate, mandible, and temporomandibular joints appear normal. The mastoid air cells are clear. No obvious facial bone fractures are identified. No soft tissue abnormality is identified. Cervical spine: Significant motion artifact limits evaluation for subtle fractures. Mild dextrocurvature of the cervical spine. Minimal anterolisthesis of C4 on C5 The alignment is otherwise maintained. The prevertebral soft tissue is normal in thickness. The bones are mildly osteopenic. Vertebral bodies are normal in height without evidence of acute fracture. Other than advanced middle atlantoaxial joint osteoarthritis, the craniocervical junction appears normal. There is mild to severe multilevel degenerative disc disease. Mild multilevel central canal stenosis. There are varying degrees of mild to moderate facet osteoarthritis. There are varying degrees of mild uncovertebral joint osteoarthritis with the same degree of neural foraminal stenosis at these levels. There is atherosclerotic calcification of the carotid bifurcations. Thoracic spine: Mild S-shaped curvature of the thoracic spine. Slight exaggeration of the thoracic kyphosis. The alignment is otherwise maintained. The bones are mildly osteopenic. Vertebral bodies are normal in height without evidence of acute fracture. Schmorl's nodes noted at multiple levels. 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 The central canal is patent. There are varying degrees of mild to moderate facet osteoarthritis with the same degree of neural foraminal stenosis at these levels. There is atherosclerotic calcification of the thoracic aorta and its branch vessels. Bibasilar streaky and groundglass opacities. There are atherosclerotic calcifications of the coronary arteries. Small calcified granuloma in the right lung base.. Lumbar spine: Significant motion artifact limits evaluation for subtle fractures. There are postoperative findings of posterior spinal decompression at L3-L4. Dextrocurvature of the lumbar spine. Mild grade 1 retrolisthesis of L3 on L4. No traumatic malalignment. The bones are mildly osteopenic. Vertebral bodies are normal in height without evidence of acute fracture. There is up to severe multilevel degenerative disc disease. The central canal is moderately stenotic at L1-L2 and L5-S1 and mild at L2-L3 There are varying degrees of up to severe facet osteoarthritis with the same degree of neural foraminal stenosis at these levels. There is atherosclerotic calcification of the abdominal aorta and its branch vessels. There are degenerative changes of the SI joints. Partially imaged screws in the left hemipelvis. Procedure Note Kalyani Cortez MD - 08/28/2024 PROCEDURE: CT HEAD WO CONTRAST, CT LUMBAR SPINE WO CONTRAST, CTTHORACIC SPINE WO CONTRAST, CT CERVICAL SPINE WO CONTRAST, CT FACIAL BONES WO CONTRAST, DATE/TIME OF EXAM: 08/27/2024 11:36 PM, LOCATION [facility] INDICATION: Trauma ADDITIONAL CLINICAL INFORMATION: Ordering Provider Reason For Exam: Trauma. Technologist Note: None. Additional: None. EXAMINATION: 1.Computed tomography (CT) of the head without contrast 2.CT of the maxillofacial bones, orbits, and paranasal sinuses without contrast 3.CT of the cervical spine without contrast 4.CT of the thoracic spine without contrast 5.CT of the lumbar spine without contrast TECHNIQUE: CT of the head, cervical spine, and maxillofacial bones,orbits, and paranasal sinuses was performed without contrast according tostandard protocol. Reformatted axial, sagittal, and coronal images of thethoracic and lumbar spine were obtained by the technologist from a concurrently performed body CT and sent to the workstation for review. CT dosereduction technique was used, including Automated Exposure Control. COMPARISON: No prior study is available for comparison at the time ofthis dictation. FINDINGS: The study is degraded by motion artifacts which can obscureabnormalities. Head: Significant motion artifact limits evaluation for subtle abnormalities. Chronic appearing bilateral subdural collections/hematomas measuring upto 9 mm in maximal thickness along the bifrontal lobes. No significant effacement of the underlying cerebral sulci. No midline shift. No additional intra- or extra-axial hemorrhage. There is mild cerebral volume loss with associated ex vacuo ventricular dilatation. The basal cisterns are patent. The pantoja-white matter differentiation is normal. Periventricular white matter hypoattenuation is a nonspecific findingthat may be indicative of chronic small vessel ischemic disease. There is atherosclerotic calcification of the carotid siphons. No acute calvarial fracture is identified. Maxillofacial: Significant motion artifact through the orbits, frontal, ethmoid andnasal bones severely degrades evaluation for fractures in these regions. Other than bilateral cataract extractions, the orbits including theglobes, optic nerves, retrobulbar fat and extraocular muscles appear normal. The paranasal sinuses are clear. The hard palate, mandible, and temporomandibular joints appear normal. The mastoid air cells are clear.No obvious facial bone fractures are identified. No soft tissue abnormalityis identified. Cervical spine: Significant motion artifact limits evaluation for subtle fractures. Mild dextrocurvature of the cervical spine. Minimal anterolisthesis ofC4 on C5 The alignment is otherwise maintained. The prevertebral softtissue is normal in thickness. The bones are mildly osteopenic. Vertebralbodies are normal in height without evidence of acute fracture. Other than advanced middle atlantoaxial joint osteoarthritis, the craniocervical junction appears normal. There is mild to severe multilevel degenerative disc disease. Mild multilevel central canal stenosis. There are varying degrees of mild to moderate facet osteoarthritis. There are varyingdegrees of mild uncovertebral joint osteoarthritis with the same degree ofneural foraminal stenosis at these levels. There is atheroscleroticcalcification of the carotid bifurcations. Thoracic spine: Mild S-shaped curvature of the thoracic spine. Slight exaggeration ofthe thoracic kyphosis. The alignment is otherwise maintained. The bones are mildly osteopenic. Vertebral bodies are normal in height withoutevidence of acute fracture. Schmorl's nodes noted at multiple levels. There ismild multilevel degenerative disc disease. The central canal is patent. There are varying degrees of mild to moderate facet osteoarthritis with thesame degree of neural foraminal stenosis at these levels. There is atherosclerotic calcification of the thoracic aorta and itsbranch vessels. Bibasilar streaky and groundglass opacities. There are atherosclerotic calcifications of the coronary arteries. Small calcified granuloma in the right lung base.. Lumbar spine: Significant motion artifact limits evaluation for subtle fractures. There are postoperative findings of posterior spinal decompression at L3-L4. Dextrocurvature of the lumbar spine. Mild grade 1 retrolisthesisof L3 on L4. No traumatic malalignment. The bones are mildly osteopenic. Vertebral bodies are normal in height without evidence of acutefracture. There is up to severe multilevel degenerative disc disease. The central canal is moderately stenotic at L1-L2 and L5-S1 and mild at L2-L3 Thereare varying degrees of up to severe facet osteoarthritis with the samedegree of neural foraminal stenosis at these levels. There is atherosclerotic calcification of the abdominal aorta and its branch vessels. There are degenerative changes of the SI joints.Partially imaged screws in the left hemipelvis. IMPRESSION: Significant motion artifact limits evaluation for subtle bleeds and fractures. 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 No significant mass effect. No midline shift. No additional intra- or extra-axial hemorrhage. 2.No acute facial bone identified. 3.No evidence of acute fracture in the cervical, thoracic, or lumbarspine. 4.Multilevel degenerative disc and joint disease of the spine asdetailed above. 5.Please refer to the concurrent, dedicated body report for findings inthe chest, abdomen, and pelvis. The report is dictated by Dante Mcclain MD (president and chief executive officer) I, Kalyani Cortez MD have personally reviewed and interpretedthis examination/study. > Interpreting Provider: Kalyani Cortez MD on 08/28/2024 6:41 AM Lincoln Rocha MD CT ORDERABLES * CT FACIAL BONES WO CONTRAST - Facial trauma, fx suspected, blunt (08/27/2024 11:34 PM FRONT END ARCHITECT) Anatomical Region Laterality Modality Head Computed Tomogra phy 08/27/2024 11:4 7 PM FRONT END ARCHITECT Impressions 08/28/2024 6:41 AM FRONT END ARCHITECT IMPRESSION: Significant motion artifact limits evaluation for subtle bleeds and fractures. 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 No significant mass effect. No midline shift. No additional intra- or extra-axial hemorrhage. 2.No acute facial bone identified. 3.No evidence of acute fracture in the cervical, thoracic, or lumbar spine. 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 5.Please refer to the concurrent, dedicated body report for findings in the chest, abdomen, and pelvis. The report is dictated by Dante Mcclain MD (president and chief executive officer) I, Kalyani Cortez MD have personally reviewed and interpreted this examination/study. > Interpreting Provider: Kalyani Cortez MD on 08/28/2024 6:41 AM Narrative 08/28/2024 6:41 AM FRONT END ARCHITECT PROCEDURE: ??CT HEAD WO CONTRAST, CT LUMBAR SPINE WO CONTRAST, CT THORACIC SPINE WO CONTRAST, CT CERVICAL SPINE WO CONTRAST, CT FACIAL BONES WO CONTRAST, DATE/TIME OF EXAM: ??08/27/2024 11:36 PM, LOCATION ??[facility] INDICATION: Trauma ADDITIONAL CLINICAL INFORMATION: Ordering Provider Reason For Exam: ??Trauma. Technologist Note: ??None. Additional: ??None. EXAMINATION: 1.Computed tomography (CT) of the head without contrast 2.CT of the maxillofacial bones, orbits, and paranasal sinuses without contrast 3.CT of the cervical spine without contrast 4.CT of the thoracic spine without contrast 5.CT of the lumbar spine without contrast TECHNIQUE: CT of the head, cervical spine, and maxillofacial bones, orbits, and paranasal sinuses was performed without contrast according to standard protocol. Reformatted axial, sagittal, and coronal images of the thoracic and lumbar spine were obtained by the technologist from a concurrently performed body CT and sent to the workstation for review. CT dose reduction technique was used, including Automated Exposure Control. COMPARISON: No prior study is available for comparison at the time of this dictation. FINDINGS: The study is degraded by motion artifacts which can obscure abnormalities. Head: Significant motion artifact limits evaluation for subtle abnormalities. Chronic appearing bilateral subdural collections/hematomas measuring up to 9 mm in maximal thickness along the bifrontal lobes. No significant effacement of the underlying cerebral sulci. No midline shift. No additional intra- or extra-axial hemorrhage. There is mild cerebral volume loss with associated ex vacuo ventricular dilatation. The basal cisterns are patent. The pantoja-white matter differentiation is normal. Periventricular white matter hypoattenuation is a nonspecific finding that may be indicative of chronic small vessel ischemic disease. There is atherosclerotic calcification of the carotid siphons. No acute calvarial fracture is identified. Maxillofacial: Significant motion artifact through the orbits, frontal, ethmoid and nasal bones severely degrades evaluation for fractures in these regions. Other than bilateral cataract extractions, the orbits including the globes, optic nerves, retrobulbar fat and extraocular muscles appear normal. The paranasal sinuses are clear. The hard palate, mandible, and temporomandibular joints appear normal. The mastoid air cells are clear. No obvious facial bone fractures are identified. No soft tissue abnormality is identified. Cervical spine: Significant motion artifact limits evaluation for subtle fractures. Mild dextrocurvature of the cervical spine. Minimal anterolisthesis of C4 on C5 The alignment is otherwise maintained. The prevertebral soft tissue is normal in thickness. The bones are mildly osteopenic. Vertebral bodies are normal in height without evidence of acute fracture. Other than advanced middle atlantoaxial joint osteoarthritis, the craniocervical junction appears normal. There is mild to severe multilevel degenerative disc disease. Mild multilevel central canal stenosis. There are varying degrees of mild to moderate facet osteoarthritis. There are varying degrees of mild uncovertebral joint osteoarthritis with the same degree of neural foraminal stenosis at these levels. There is atherosclerotic calcification of the carotid bifurcations. Thoracic spine: Mild S-shaped curvature of the thoracic spine. Slight exaggeration of the thoracic kyphosis. The alignment is otherwise maintained. The bones are mildly osteopenic. Vertebral bodies are normal in height without evidence of acute fracture. Schmorl's nodes noted at multiple levels. 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 The central canal is patent. There are varying degrees of mild to moderate facet osteoarthritis with the same degree of neural foraminal stenosis at these levels. There is atherosclerotic calcification of the thoracic aorta and its branch vessels. Bibasilar streaky and groundglass opacities. There are atherosclerotic calcifications of the coronary arteries. Small calcified granuloma in the right lung base.. Lumbar spine: Significant motion artifact limits evaluation for subtle fractures. There are postoperative findings of posterior spinal decompression at L3-L4. Dextrocurvature of the lumbar spine. Mild grade 1 retrolisthesis of L3 on L4. No traumatic malalignment. The bones are mildly osteopenic. Vertebral bodies are normal in height without evidence of acute fracture. There is up to severe multilevel degenerative disc disease. The central canal is moderately stenotic at L1-L2 and L5-S1 and mild at L2-L3 There are varying degrees of up to severe facet osteoarthritis with the same degree of neural foraminal stenosis at these levels. There is atherosclerotic calcification of the abdominal aorta and its branch vessels. There are degenerative changes of the SI joints. Partially imaged screws in the left hemipelvis. Procedure Note Kalyani Cortez MD - 08/28/2024 PROCEDURE: CT HEAD WO CONTRAST, CT LUMBAR SPINE WO CONTRAST, CTTHORACIC SPINE WO CONTRAST, CT CERVICAL SPINE WO CONTRAST, CT FACIAL BONES WO CONTRAST, DATE/TIME OF EXAM: 08/27/2024 11:36 PM, LOCATION [facility] INDICATION: Trauma ADDITIONAL CLINICAL INFORMATION: Ordering Provider Reason For Exam: Trauma. Technologist Note: None. Additional: None. EXAMINATION: 1.Computed tomography (CT) of the head without contrast 2.CT of the maxillofacial bones, orbits, and paranasal sinuses without contrast 3.CT of the cervical spine without contrast 4.CT of the thoracic spine without contrast 5.CT of the lumbar spine without contrast TECHNIQUE: CT of the head, cervical spine, and maxillofacial bones,orbits, and paranasal sinuses was performed without contrast according tostandard protocol. Reformatted axial, sagittal, and coronal images of thethoracic and lumbar spine were obtained by the technologist from a concurrently performed body CT and sent to the workstation for review. CT dosereduction technique was used, including Automated Exposure Control. COMPARISON: No prior study is available for comparison at the time ofthis dictation. FINDINGS: The study is degraded by motion artifacts which can obscureabnormalities. Head: Significant motion artifact limits evaluation for subtle abnormalities. Chronic appearing bilateral subdural collections/hematomas measuring upto 9 mm in maximal thickness along the bifrontal lobes. No significant effacement of the underlying cerebral sulci. No midline shift. No additional intra- or extra-axial hemorrhage. There is mild cerebral volume loss with associated ex vacuo ventricular dilatation. The basal cisterns are patent. The pantoja-white matter differentiation is normal. Periventricular white matter hypoattenuation is a nonspecific findingthat may be indicative of chronic small vessel ischemic disease. There is atherosclerotic calcification of the carotid siphons. No acute calvarial fracture is identified. Maxillofacial: Significant motion artifact through the orbits, frontal, ethmoid andnasal bones severely degrades evaluation for fractures in these regions. Other than bilateral cataract extractions, the orbits including theglobes, optic nerves, retrobulbar fat and extraocular muscles appear normal. The paranasal sinuses are clear. The hard palate, mandible, and temporomandibular joints appear normal. The mastoid air cells are clear.No obvious facial bone fractures are identified. No soft tissue abnormalityis identified. Cervical spine: Significant motion artifact limits evaluation for subtle fractures. Mild dextrocurvature of the cervical spine. Minimal anterolisthesis ofC4 on C5 The alignment is otherwise maintained. The prevertebral softtissue is normal in thickness. The bones are mildly osteopenic. Vertebralbodies are normal in height without evidence of acute fracture. Other than advanced middle atlantoaxial joint osteoarthritis, the craniocervical junction appears normal. There is mild to severe multilevel degenerative disc disease. Mild multilevel central canal stenosis. There are varying degrees of mild to moderate facet osteoarthritis. There are varyingdegrees of mild uncovertebral joint osteoarthritis with the same degree ofneural foraminal stenosis at these levels. There is atheroscleroticcalcification of the carotid bifurcations. Thoracic spine: Mild S-shaped curvature of the thoracic spine. Slight exaggeration ofthe thoracic kyphosis. The alignment is otherwise maintained. The bones are mildly osteopenic. Vertebral bodies are normal in height withoutevidence of acute fracture. Schmorl's nodes noted at multiple levels. There ismild multilevel degenerative disc disease. The central canal is patent. There are varying degrees of mild to moderate facet osteoarthritis with thesame degree of neural foraminal stenosis at these levels. There is atherosclerotic calcification of the thoracic aorta and itsbranch vessels. Bibasilar streaky and groundglass opacities. There are atherosclerotic calcifications of the coronary arteries. Small calcified granuloma in the right lung base.. Lumbar spine: Significant motion artifact limits evaluation for subtle fractures. There are postoperative findings of posterior spinal decompression at L3-L4. Dextrocurvature of the lumbar spine. Mild grade 1 retrolisthesisof L3 on L4. No traumatic malalignment. The bones are mildly osteopenic. Vertebral bodies are normal in height without evidence of acutefracture. There is up to severe multilevel degenerative disc disease. The central canal is moderately stenotic at L1-L2 and L5-S1 and mild at L2-L3 Thereare varying degrees of up to severe facet osteoarthritis with the samedegree of neural foraminal stenosis at these levels. There is atherosclerotic calcification of the abdominal aorta and its branch vessels. There are degenerative changes of the SI joints.Partially imaged screws in the left hemipelvis. IMPRESSION: Significant motion artifact limits evaluation for subtle bleeds and fractures. 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 No significant mass effect. No midline shift. No additional intra- or extra-axial hemorrhage. 2.No acute facial bone identified. 3.No evidence of acute fracture in the cervical, thoracic, or lumbarspine. 4.Multilevel degenerative disc and joint disease of the spine asdetailed above. 5.Please refer to the concurrent, dedicated body report for findings inthe chest, abdomen, and pelvis. The report is dictated by Dante Mcclain MD (president and chief executive officer) Kalyani Macedo MD have personally reviewed and interpretedthis examination/study. > Interpreting Provider: Kalyani Cortez MD on 08/28/2024 6:41 AM Lincoln Rocha MD CT ORDERABLES * XR PELVIS 1 OR 2VW (08/27/2024 11:33 PM FRONT END ARCHITECT) Anatomical Region Laterality Modality Pelvis Digital Radiogra phy 08/28/2024 1:07 AM FRONT END ARCHITECT Impressions 08/28/2024 9:15 AM FRONT END ARCHITECT IMPRESSION: No acute fracture identified. Report dictated by Dante Mcclain MD, MD (president and chief executive officer). Sho Macedo MD have personally reviewed and interpreted this examination/study. > Interpreting Provider: Sho Minaya MD on 08/28/2024 9:15 AM Narrative 08/28/2024 9:15 AM FRONT END ARCHITECT PROCEDURE: ??XR PELVIS 1 OR 2VW, DATE/TIME OF EXAM: ??08/27/2024 11:34 PM, LOCATION ??[facility] INDICATION: Trauma Fracture suspected ADDITIONAL CLINICAL INFORMATION: Ordering Provider Reason For Exam: Technologist Note: Additional: COMPARISON: None. FINDINGS: Left hip arthroplasty. No acute fracture. Degenerative changes in the right hip. The pubic symphysis is intact. Bone density and texture are normal. The sacroiliac joints are normal. Severe degenerative changes in the lower lumbar spine. Procedure Note Sho Minaya MD - 08/28/2024 PROCEDURE: XR PELVIS 1 OR 2VW, DATE/TIME OF EXAM: 08/27/2024 11:34 PM, LOCATION [facility] INDICATION: Trauma Fracture suspected ADDITIONAL CLINICAL INFORMATION: Ordering Provider Reason For Exam: Technologist Note: Additional: COMPARISON: None. FINDINGS: Left hip arthroplasty. No acute fracture. Degenerative changes in theright hip. The pubic symphysis is intact. Bone density and texture are normal. The sacroiliac joints are normal. 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 IMPRESSION: No acute fracture identified. Report dictated by Dante Mcclain MD, MD (president and chief executive officer). ISho MD have personally reviewed and interpreted this examination/study. > Interpreting Provider: Sho Minaya MD on 08/28/2024 9:15 AM Lincoln Rocha MD DIAGNOSTIC IMAGING ORDERABLES * (ABNORMAL) CK BLOOD (08/27/2024 11:05 PM FRONT END ARCHITECT) CK Total 417(H) 30 - 200 U/L 08/27/2024 11:39 PM FRONT END ARCHITECT [facility] Blood BLOOD SPECIMEN / Unknown Venipuncture / Unknown 08/27/2024 11:05 PM FRONT END ARCHITECT 08/27/2024 11:14 PM FRONT END ARCHITECT Lincoln Rocha MD LAB - CHEMISTRY ORD ERABLES [facility] [address] [place] [address], [facility] [phone] * ALCOHOL ETHYL BLOOD (08/27/2024 11:05 PM FRONT END ARCHITECT) Ethanol (mg/dL) <10 <10 mg/dL 11:39 PM [facility] Ethanol Calculated (g/dL) <0.010 <=0.010 g/dL 08/27/2024 11:39 PM [facility] Blood BLOOD SPECIMEN / Unknown Venipuncture / Unknown 08/27/2024 11:05 PM FRONT END ARCHITECT 08/27/2024 11:14 PM FRONT END ARCHITECT Narrative [facility] - 08/27/2024 11:39 PM FRONT END ARCHITECT Ethanol Interp <10: None Detected. Depression of JOB SETTER: >100 mg/dl Potentially Critical: >250 mg/dl Potentially Fatal >400 mg/dl Ethanol in the patient's blood will contribute to the osmolar gap. Ethanol's contribution to the osmolar gap can be estimated by dividing the concentration of ethanol in mg/dL by 4.6. This test is for clinical use only and does not equal a OSWALDO for legal purposes. Lincoln Rocha MD LAB - CHEMISTRY ORD ERABLES [facility] [address] [place] [address], [facility] [phone] from Last 3 Months Advance Directives * DNR - IF PULSELESS NO CPR, NO SHOCK (Latest Code Status on File) Date Activated Date Inactivated Comments 09/15/2024 11:08 AM 09/23/2024 10:43 PM Question Answer Comments : DO NOT discontinue a ny active orders without asking attending physician. * DNR - IF PULSELESS NO CPR, NO SHOCK Date Activated Date Inactivated Comments 09/07/2024 6:37 PM 09/12/2024 2:18 PM Question Answer Comments : DO NOT discontinue a ny active orders without asking attending physician. * DNR - IF PULSELESS NO CPR, NO SHOCK Date Activated Date Inactivated Comments 08/28/2024 3:48 PM 09/06/2024 12:59 PM Question Answer Comments : DO NOT discontinue a ny active orders without asking attending physician. * Full Code Date Activated Date Inactivated Comments 08/28/2024 3:52 AM 08/28/2024 3:48 PM Care Teams [employer] Relationship Specialty Start Date End Date Bao Pierre MD PCP - General Internal Medicine 07/09/17
--- OUTSIDE RECORDS SUMMARY | 2024-10-01 08:35 | XMS_ITS | Encounter Summary ---
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 hospital. LAURENCE sent updates to the other 3 pending facilities that have yet to respond. [facility]/U. . Lona or [facility]/admissions.LAURENCE called and spoke with Ariadne. ISRAEL malik referral info and ariadne will reach out to sonEliseo Mccracken no one seems to have an issue with the restraints, they understand that he has dementia and is not able to walk around here freely. Denied Full SW called [facility]/admissions/Syed. I left .-denied full SW called [facility]/admissions/Kristy. I left a VM Only 2 options left currently are [facility] and [facility] pending. SW left messagewith Dayana/Wanda to make sure she received the fax and see if she spoke with son yet. Patient is NOT a SNF candidate due to advanced dementia; unable to follow commands. Pleasantly confused most of the time. Appears to have some owning. SW received a call from Eva/[facility]. She said son showed up for a tour and took admission paperwork. However, he did not say yes or no as to dad moving there. I will f/u with son. Son told her that Shayy may come tour tomorrow as well. IF the son does decide to go with Wanda they will for sure have to come out and meet patient. They seem fine with the restraints since they understand he needs a MCU. Transportation: Transportation at discharge: Ambulance Anticipated Discharge Date: medically ready as of 09/18/24 Contacts: Extended Emergency Contact Information Primary Emergency Contact: Frandy Alvares Jr Mobile Relation: Son Secondary Emergency Contact: Shayy Hay Mobile Relation: Friend *LAURENCE spoke with Frandy . Updated that dad ready to d/c as of yesterday but still no final accepting MCU facility. He should start receiving calls from some of the places so hopeful for a d/c maybe tomorrow or Monday. *LAURENCE called Frandy Dodge to see about his tour of [facility]. He said it was very nice. He's goingto stop by [facility] tomorrow. I explained that now that he has one place that has 99% accepted him, [facility], we will need to try and make a final decision tomorrow since wanda will for sureneed to come see patient here prior to any d/c. He understood. He will get with me tomorrow morning. Comments: Name/Phone number: Veronica Owen LCSW , PRODUCT DEMONSTRATOR, MPH Extensions: [phone] VALET * Celia Flores, BHARTI/JACKY - 09/19/2024 1:22 PM CST BRIEF SYNOPSIS: Nutrition Risk Identified and meets criteria for Severe Protein Calorie malnutrition. MD emanuel on this admission. Malnutrition Etiology Malnutrition in the context of: chronic disease (09/16/24 1300) Malnutrition Severity: Severe Protein Calorie (09/16/24 1300) Dietary Intake: Weight Change: Weight change Unintended weight change: Severe weight loss Weight Loss: > 7.5% x 3 months (9.7% body weight in < 4 months, since 05/23/24) Fat Loss: Loss of Subcutaneous Fat Orbital: Severe Buccal: Severe Muscle Loss: Muscle Loss Temples (Temporalis Muscle): Severe Clavicles (Pectoralis & Deltoids): Severe Thigh (Quadriceps): Moderate Calf (Gastrocnemius): Moderate Body mass index is 24.67 kg/m??. GI Concerns: None (3 soft/loose stools documented on 09/15) Nutrition Plan: Current diet order: Easy to Chew/Mechanical Soft Current supplement order: Ensure HP plus TID and Thrive 1x/day. Recommendation to Physician: None Discharge Needs: Nutritional Supplement at Discharge: Yes CLINICAL NUTRITION ASSESSMENT: Pt seen for follow-up. Pt UBW around 180# per Care Everywhere documentation (02/07/24). Current body weight is 157# putting him at a 13% wt loss since January. Declines GI concerns at this time. Last BM documented on 09/18. Pt unable to report appetite and meal intake. Nurse in the room and reported he's been eating well.He ate most of his breakfast this morning. P.O.Intake for the past 72 hrs was 46%. Currently on Ensure HP BID but will send Ensure HP plus for additional calories/protein. Ensure Plus High protein provides 350 calories, 20 grams protein, 40 grams carbohydrates, 13 grams fat in 8 ounce serving. Sendi ng Thrive ice cream for further calorie support. Thrive (High Calorie High Protein Ice Cream) provides 270 calories, 9 grams protein, 33 grams of carb per 6 oz serving. Pt on a modified consistency (Easy to chew/mechanically soft) diet. Continue pt assistance with meals to promote better po intake. Per NEONATAL NURSE note (09/17) pt lacking awareness and poor initiation at meal time. Will continue to monitor po intake and supplement acceptance. Labs reviewed. Med/Surg History and Clinical Diagnoses: weakness, falls, MD emanuel severe protein calorie malnutritionPMH significant for dementia alert to self at baseline, anemia, squamous cell carcinoma, recent admission for MSSA UTI that presented to OSH (SLU) due to altered mental status. Height: 170.2 cm (5' 7 ) BMI: Body mass index is 24.67 kg/m??. BMI Range: Normal IBW/lb (Calculated) Male: 148 Recent Weights/Methods 08/27/2024 2251 08/28/2024 1656 09/07/2024 1624 09/08/2024 0200 09/15/2024 1011 Weight: 72.6 kg (160 lb) 72.6 kg (160 lb) 68.4 kg (150 lb 12.7 oz) 68 kg (150 lb) 71.4 kg (157 lb 8oz) Weight Method : Estimated Bed scale -- Other (Comment) Bed scale UBW: 180# per record in Care Everywhere Unintentional weight change: 13% wt loss in 8 months Unintended weight change: Severe weight loss PO INTAKE Current diet order: Easy to Chew/Mechanical Soft Nutrition recommendation: agree with current nutrition order Food Allergies: No known food allergies Last % Meal Taken: 10 % (09/18/24 1254) 48 hr PO INTAKE % Meal Taken Av % Min: 10 % Max: 10 % Current supplement order: Ensure HP plus TID and Thrive 1x/day Supplement(s) Consumed- Last 48 hours Date/Time Dietary Supplement Name Liquid Supplement Consumed (mL) Non-Liquid Supplement Consumed (%) 09/18/24 1254 Ensure High Protein 240 ML -- Chewing/Swallowing: Chewing Problems GI Concerns: None (3 soft/loose stools documented on 09/15) Stools: Stools (# of stools): 1 (09/18/24 1254) Stool Appearance : Soft (09/18/24 1254) Stool Amount: Smear (09/18/24 1254) Skin/Wound: WDL Estimated Needs: KCAL: 2251-9681 (30-33 kcal/kg BW) Protein (g): 86-107 (1.2-1.5 g/kg BW) Fluid (ml): 1 ml/kcal Needs based on: Kcal/kg- (Comment) (71.4 kg BW) Recommended Access Route: PO Labs: Recent Labs Component Name 09/17/24 0457 09/16/24 0304 09/15/24 1120 09/14/24 1334 09/11/24202709/10/24212609/08/24 0545 09/07/24 1714 SODIUM 140 137 137 - - - - - NA - - - 137 136 136 - 140 POTASSIUM 4.1 4.1 4.7 5.1* 4.1 4.0 - 4.4 CHLORIDE 110* 107 106 - - - - - CO2 22 24 25 22 25 24 - 23 BUN 26 30* 32* 29* 20 19 - 26 CREATININE 0.87 1.38* 1.71* 1.04 0.95 0.92 - 1.00 GLUCOSE 87 94 101* 96 111* 109* - 91 CALCIUM 8.8 8.4 8.4 8.5 8.2* 8.2* - 8.8 ALT - - 13 15 - - - 30 ALKPHOS - - 122 130 - - - 134 AST - - 25 28 - - - 32 TBIL - - 0.4 - - - - - TPROT - - 5.7* - - - - - EGFR 83* 49* 38* 69* 77* 80* - 72* ALBUMIN 3.0* - 2.8* - - - - - - = values in this interval not displayed. Recent Labs Component Name 09/17/24 0457 09/11/24202709/10/242126 PHOS 3.1 3.4 2.4* Recent Labs Component Name 09/08/24 0545 08/29/24 0448 MAGNESIUM 1.8 1.8 Recent Labs Component Name 09/16/24 0304 09/15/24 1256 09/14/24 1334 HGB 8.6* 8.9* 8.9* HCT 26.1* 27.3* 26.8* No results for input(s): HGBA1C in the last 45777 hours.Patient Vitals for the past 30 hrs: Glucose Bedside (mg/dL) 09/19/24 1158 107 mg/dL 09/19/24 0811 96 mg/dL 09/18/24 2201 108 mg/dL MEDICATIONS FOR CURRENT ENCOUNTER: SCHEDULED MEDICATIONS: 0.9% NaCl injection 3 mL, Intracatheter, q8h apixaban (Eliquis) tablet 2.5 mg, Oral, BID donepezil (Aricept) tablet 10 mg, Oral, AT BEDTIME escitalopram (Lexapro) tablet 10 mg, Oral, QDAY levETIRAcetam (Keppra) injection 500 mg, Intravenous, q12h OLANZapine (ZyPREXA) tablet 5 mg, Oral, AT BEDTIME CONTINUOUS MEDICATIONS: PRN MEDICATIONS: Or Or Or 0.9% NaCl injection 1-10 mL, Intracatheter, PRN acetaminophen (Tylenol) tablet 650 mg, Oral, q4h PRN dextrose 10 % IV bolus, Intravenous, PRN dextrose 10 % IV bolus, Intravenous, PRN glucagon (Glucagen) injection 1 mg, Subcutaneous, PRN glucose (Diabetic Use) oral gel, Oral, PRN OLANZapine (ZyPREXA) injection 2.5 mg, Intramuscular, q6h PRN ondansetron (disintegrating) (Zofran ODT) tablet 4 mg, Oral, q6h PRN ondansetron (Zofran) injection 4 mg, Intravenous, q6h PRN polyethylene glycol 3350 (Miralax) packet 17 g, Oral, QDAY PRN Nutrition Diagnostic Statement: Unintended weight loss related to:: inadequate energy intake as evidenced by:: weight loss;loss of subcutaneous fat and muscle mass Nutrition Diagnostic Statement Progress: Nutrition problem continues Nutrition Intervention: Meals and snacks:;Medical Food Supplements: Education needed: Supplements Education Provided: Not appropriate (09/16/24 1300) Monitoring: PO intake Acceptance of oral nutrition supplement and intake Weights Labs GI function/bowel movements Skin Monitor per nutrition guidelines. Risk Level: High;At Risk for Malnutrition Evaluation: Nutrition Goal: Total intake will meet estimated nutrient needs Nutrition Goal Timeframe: Ongoing Nutrition Goal Progress: Continue with current goal;Progressing toward goal Celia Grey RD/JAMES 09/19/2024 3:27 PM Ascom [id number] VALET * Preston Murphy RN - 09/18/2024 11:18 PM CST Patient was sleeping and I woke him up to give his medication and also to clean him. His linens were wet and he had crumbs all over his bed. He was initially cooperative after waking up but he becameaggressive and started kicking and punching when we told him he could not get up. We put his restrains back again. VALET * Juany Tenorio RN - 09/18/2024 4:17 PM CST Problem: Skin/Tissue Integrity - Adult Goal: Skin integrity remains intact Description: INTERVENTIONS: Outcome: Progressing Problem: Restraint Safety Goal: Free from restraint(s) Description: INTERVENTIONS: Outcome: Progressing Goal: Remains free of injury from restraints Description: INTERVENTIONS: Outcome: Progressing VALET * Yuki Buck SLP - 09/18/2024 3:19 PM CST Speech Therapy Frandy Alvares is a 89 year old male, admitted for AMS, FTT. Patient recommended diet of Easy to Chew/Mech Soft and thin liquids. Chart indicates patient had agitation through evening, noted to kicking at nursing staff, was given Zyprexa. Spoke with nursing this date and she reports he is tolerating current diet and asking to hold speech therapy at this time reporting patient is currently calm and has been periodically agitated this date. Yuki Willams MS [facility]-NEONATAL NURSE [id number] VALET * Lakeisha Sargent, PharmD - 09/18/2024 1:58 PM CST Images from the original note were not included. Pharmacy Home Medication History TRANSITIONS OF CARE Information Obtained from (include 2 sources unless using facility list): Pharmacy Refill history Medications confirmed with family member via telephone per Son Frandy Alvares Jr Allergies: Not assessed Upon [facility] Added: None Medications Removed (specify reason removed for each medication): Pt's Son states he's Father no longer takes the following medications: Vitamin D Hair Skin & Nails Medications Modified: None Of Note (discrepancies in fill history, details of warfarin management, patient concerns, refills needed or other relevant information): Confirmed with patient no other use of OTC medications for pain/allergy/other, eye drops, patches, inhalers, topical creams/ointments. Prior to Admission Medications Prescriptions Last Dose Informant Patient Reported? Taking? Nutritional Supplements (Ensure Plus High Protein) LIQD No No Sig: Take 1 container by mouth 3 times daily QUEtiapine (SEROquel) 25 MG tablet No No Sig: Take 1 (one) tablet by mouth every morning AND 0.5 (one-half) tablet at bedtime. May also take0.5 (one-half) tablet 3 times daily as needed. Reasons: Agitation. acetaminophen (Tylenol) 500 MG tablet No No Sig: Take 2 (two) tablets by mouth every 8 hours as needed for Headache (pain) Maximum allowable Acetaminophen amount = 4 Grams (4000 mg) / 24 hours. apixaban (Eliquis) 2.5 MG tablet No No Sig: Take 1 (one) tablet by mouth 2 times daily for 30 days escitalopram (Lexapro) 10 MG tablet No No Sig: Take 1 (one) tablet by mouth once daily folic acid (Folvite) 1 MG tablet No No Sig: Take 1 (one) tablet by mouth once daily levETIRAcetam (Keppra) 500 MG tablet No No Sig: Take 1 (one) tablet by mouth 2 times daily polyethylene glycol 3350 (Miralax) 17 g packet No No Sig: Take 17 (seventeen) g by mouth once daily senna (Senokot) 8.6 MG tablet No No Sig: Take 1 (one) tablet by mouth once daily Facility-Administered Medications: None ASSESSMENT AND PLAN The PROOF OPERATOR medication list has been updated and reflects the changes noted above. All medication changes noted above discussed with NA. VALET * Andre Fisher MD - 09/18/2024 12:10 PM CST Hospitalist Progress Note Admit Date: 09/15/2024 Subjective: Yesterday evening, patient became very agitated and physically aggressive for which he receive IM Zyprexa, IM ativan and bilateral wrist soft restraints. This morning, patient sleeping in bed. Last BM yesterday. Interval History: Per Dr. Alvarez, Mr. Alvares is a 89 year old male with a PMH significant for dementia alert to selfat baseline, anemia, squamous cell carcinoma, superficial venous thrombus on Eliquis, recent admission for MSSA UTI that presented to the hospital (U)due to altered mental status. Family was concerned about weakness and about their inability to provide care for the patient. Per chart review recent multiple falls. 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 Per neuro surgery, no acute neurosurgical interventions at this time, okay to continue Eliquis and neurosurgery has signed off. He was subsequently transferred to [facility]. 0.9% NaCl 3 mL Intracatheter q8h apixaban 2.5 mg Oral BID donepezil 10 mg Oral AT BEDTIME escitalopram 10 mg Oral QDAY levETIRAcetam 500 mg Intravenous q12h QUEtiapine 12.5 mg Oral AT BEDTIME QUEtiapine 25 mg Oral QDAY PRN Meds: SALINE LOCK, INSERT AND MAINTAIN AND 0.9% NaCl AND 0.9% NaCl acetaminophen dextrose IV for hypoglycemia OR dextrose IV for hypoglycemia OR glucagon glucose (Diabetic Use) gel OLANZapine ondansetron (disintegrating) OR ondansetron polyethylene glycol 3350 Objective: Temp: [97.2 ??F (36.2 ??C)-98.3 ??F (36.8 ??C)] 97.3 ??F (36.3 ??C) Pulse: [51-68] 65 Resp: [16-22] 16 BP: (130-166)/(54-97) 141/64Weight change: Intake/Output Summary (Last 24 hours) at 09/18/2024 1210 Last data filed at 09/18/2024 0001 Gross per 24 hour Intake 240 ml Output 175 ml Net 65 ml GEN No acute distress. HEENT MMM. Sclera anicteric. CHEST No respiratory distress HEART RRR. ABD Soft, NT, ND, +BS. EXT No edema. NEURO Sleeping Data Review Recent Labs Component Name 09/16/24 0304 09/15/24 1256 09/14/24 1334 08/27/24 2305 07/03/15 0853 WBC 10.1 10.2 9.2 - 9.4 HGB 8.6* 8.9* 8.9* - 15.2 HCT 26.1* 27.3* 26.8* - 46.2 PLT - - - - 158 MCV 94.6 96.8 94.7 - 96.4 - = values in this interval not displayed. Recent Labs Component Name 09/17/24 04509/16/24 0304 09/15/240 09/14/244 09/11/24202709/10/242126 CALCIUM 8.8 8.4 8.4 - 8.2* 8.2* PHOS 3.1 - - - 3.4 2.4* - = values in this interval not displayed. Recent Labs Component Name 09/17/24 0457 09/16/24 0304 09/15/24 1120 09/14/24133309/11/24202709/10/24212608/27/24230407/03/15 0853 NA - - - 137 136 136 - 138 K - - - - - - - 4.4 CL - - - 106 101 103 - 102 CO2 22 24 25 22 25 24 - 25 BUN 26 30* 32* 29* 20 19 - 20 CREATININE 0.87 1.38* 1.71* 1.04 0.95 0.92 - 1.05 GLU - - - - - - - 102* - = values in this interval not displayed. Recent Labs Component Name 09/15/24 1120 09/14/24133309/11/24202709/10/24212609/08/24200609/07/24171307/03/15 0853 PROT - 6.2 - - - 6.4 6.9 ALB - 3.0* 2.6* 2.7* - 3.0* 4.4 ALKPHOS 122 130 - - - 134 61 AST 25 28 - - - 32 21 ALT 13 15 - - - 30 28 TBILI - 0.3 - - - 0.3 0.5 - = values in this interval not displayed. Recent Labs Component Name 09/14/24 1344 09/12/24 0613 09/11/2444409/08/2445 09/07/24171308/27/24 2305 PT 13.7 14.2 13.8 - 12.9 14.1 INR 1.1 1.1 1.1 - 1.0 1.1 PTT - - - - 30.2 29.3 - = values in this interval not displayed. Recent Labs Component Name 08/27/24 2305 CKTOTAL 417* Assessment and Plan: Moderate dementia with agitation (HCC) (POA: Yes) History of SCC (squamous cell carcinoma) of skin (POA: Yes) Fall (POA: Yes) SDH (subdural hematoma) (HCC) (POA: Yes) Observed seizure-like activity (HCC) (POA: Yes) Severe protein-calorie malnutrition (HCC) (POA: Yes) Failure to thrive in adult (POA: Yes) CLARK (acute kidney injury) (HCC) (POA: Yes) Left cephalic vein thrombosis (POA: Yes) #Moderate dementia with behavioral disturbance: Qtc interval 445. Psychiatry note reviewed and medication recommendations ordered. Patient in bilateral soft wrist restraints since approximately 1800. #CLARK: Likely 2/2 prerenal azotemia. Resolved with IVF #Severe protein calorie malnutrition: Hop Strainer following #H/o left cephalic vein thrombosis causing LUE: Continue Eliquis #H/o Seizure disorder: Continue Keppra BID Prophy: Eliquiis Diet: Mechanical soft diet Dispo: Discharge pending placement into memory care unit. Code: DNR if pulseless Andre Fisher MD 09/18/2024 12:10 PM VALET * Tonny Castaneda RN - 09/18/2024 9:10 AM CST Care Coordination Progress Note Expected Discharge Date: 09/19/2024 Discharge Plan: [facility]/Memory care unit. Pt unable to follow commands to participate in skilled therapies. SW following for placement Family Support (Name and Phone): Extended Emergency Contact Information Primary Emergency Contact: Frandy Alvares Jr Mobile Relation: Son Secondary Emergency Contact: Shayy Hay Mobile Relation: Friend Transportation at Discharge: Ambulance: READMISSION RISK SCORE is 22 at 9:13 AM 09/18/2024.: Name: Tonny Castaneda RN Case Management VALET * Alice Duggan OT - 09/18/2024 8:50 AM CST Occupational Therapy OT order received, chart reviewed. Discussed with PT Deja; she reports patient is not able to follow directions, gets easily agitated, and currently in restraints; not able to participate in skilled OT services at this time. Will complete OT orders; please reorder if patient has a change in status and is able to participate. Alice Urban MOTR/L [phone] VALET * Preston Murphy RN - 09/18/2024 1:39 AM CST I found patient attempting to get out of bed. Both his legs were hanging on the right side of the bed. Charge nurse were attempting to calm patient. He would not listen and was kicking me. I called pharmacy for the prn Zyprexa. I gave it to him IM, see MAR. BEL * Preston Murphy RN - 09/17/2024 10:14 PM CST Problem: Restraint Safety Goal: Free from restraint(s) Description: INTERVENTIONS: 09/17/20242213 by Preston Murphy RN Outcome: Not Progressing 09/17/20242212 by Preston Murphy RN Outcome: Progressing 09/17/20242212 by Preston Murphy RN Outcome: Progressing VALET * Preston Murphy RN - 09/17/2024 10:13 PM CST Problem: Fall Risk Goal: Fall risk and fall related injury risk are minimized (interventions related to the fall risk can be found in the flowsheet documentation) 09/17/20242212 by Preston Murphy RN Outcome: Progressing 09/17/20242212 by Preston Murphy RN Outcome: Progressing Problem: Skin/Tissue Integrity - Adult Goal: Skin integrity remains intact Description: INTERVENTIONS: 09/17/20242212 by Preston Murphy RN Outcome: Progressing 09/17/20242212 by Preston Murphy RN Outcome: Progressing Problem: Neurosensory - Adult Goal: Achieves stable or improved neurological status Description: INTERVENTIONS 09/17/20242212 by Preston Murphy RN Outcome: Progressing 09/17/20242212 by Preston Murphy RN Outcome: Progressing Problem: Genitourinary - Adult Goal: Absence of urinary retention Description: INTERVENTIONS: 09/17/20242212 by Preston Murphy RN Outcome: Progressing 09/17/20242212 by Preston Murphy RN Outcome: Progressing Problem: Pain/Discomfort Goal: Patient exhibits reduced pain/discomfort as evidenced by pain scores 09/17/20242212 by Preston Murphy RN Outcome: Progressing 09/17/20242212 by Preston Murphy RN Outcome: Progressing Problem: Swallowing Goal: LTG - Patient will tolerate the least restrictive diet consistency to allow for safe consumption of daily meals 09/17/20242212 by Preston Murphy RN Outcome: Progressing 09/17/20242212 by Preston Murphy RN Outcome: Progressing Problem: Anxiety Goal: Will report anxiety at manageable levels Description: INTERVENTIONS 09/17/20242212 by Preston Murphy RN Outcome: Progressing 09/17/20242212 by Preston Murphy RN Outcome: Progressing VALET * Andre Fisher MD - 09/17/2024 5:57 PM CST Hospitalist Progress Note Admit Date: 09/15/2024 Subjective: Upon my evaluation, patient sitting in a chair, out of restraints at the nurses station calm and cooperative. Last BM today. Interval History: Per Dr. Alvarez, Mr. Alvares is a 89 year old male with a PMH significant for dementia alert to selfat baseline, anemia, squamous cell carcinoma, superficial venous thrombus on Eliquis, recent admission for MSSA UTI that presented to the hospital ([facility])due to altered mental status. Family was concerned about weakness and about their inability to provide care for the patient. Per chart review recent multiple falls. 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 Per neuro surgery, no acute neurosurgical interventions at this time, okay to continue Eliquis and neurosurgery has signed off. He was subsequently transferred to [facility]. 0.9% NaCl 3 mL Intracatheter q8h apixaban 2.5 mg Oral BID donepezil 10 mg Oral AT BEDTIME escitalopram 10 mg Oral QDAY levETIRAcetam 500 mg Intravenous q12h OLANZapine 10 mg Intramuscular Once QUEtiapine 12.5 mg Oral AT BEDTIME QUEtiapine 25 mg Oral QDAY PRN Meds: SALINE LOCK, INSERT AND MAINTAIN AND 0.9% NaCl AND 0.9% NaCl acetaminophen dextrose IV for hypoglycemia OR dextrose IV for hypoglycemia OR glucagon glucose (Diabetic Use) gel ondansetron (disintegrating) OR ondansetron polyethylene glycol 3350 Objective: Temp: [97.5 ??F (36.4 ??C)-98.4 ??F (36.9 ??C)] 97.7 ??F (36.5 ??C) Pulse: [51-69] 51 Resp: [18] 18 BP: (130-174)/(54-90) 130/54Weight change: Intake/Output Summary (Last 24 hours) at 09/17/2024 1815 Last data filed at 09/17/2024 1500 Gross per 24 hour Intake 360 ml Output 275 ml Net 85 ml GEN No acute distress. HEENT MMM. Sclera anicteric. CHEST No respiratory distress HEART RRR. ABD Soft, NT, ND, +BS. EXT No edema. NEURO Alert, oriented x 1, appropriately interactive. Data Review Recent Labs Component Name 09/16/24 0304 09/15/24 1256 09/14/24 1334 08/27/24 2305 07/03/15 0853 WBC 10.1 10.2 9.2 - 9.4 HGB 8.6* 8.9* 8.9* - 15.2 HCT 26.1* 27.3* 26.8* - 46.2 PLT - - - - 158 MCV 94.6 96.8 94.7 - 96.4 - = values in this interval not displayed. Recent Labs Component Name 09/17/24 0457 09/16/24 0304 09/15/240 09/14/24133309/11/24202709/10/242126 CALCIUM 8.8 8.4 8.4 - 8.2* 8.2* PHOS 3.1 - - - 3.4 2.4* - = values in this interval not displayed. Recent Labs Component Name 09/17/247 09/16/24 0304 09/15/240 09/14/24133309/11/24202709/10/24212608/27/24 2305 07/03/15 0853 NA - - - 137 136 136 - 138 K - - - - - - - 4.4 CL - - - 106 101 103 - 102 CO2 22 24 25 22 25 24 - 25 BUN 26 30* 32* 29* 20 19 - 20 CREATININE 0.87 1.38* 1.71* 1.04 0.95 0.92 - 1.05 GLU - - - - - - - 102* - = values in this interval not displayed. Recent Labs Component Name 09/15/24 1120 09/14/24133309/11/24202709/10/24212609/08/24200609/07/24171307/03/15 0853 PROT - 6.2 - - - 6.4 6.9 ALB - 3.0* 2.6* 2.7* - 3.0* 4.4 ALKPHOS 122 130 - - - 134 61 AST 25 28 - - - 32 21 ALT 13 15 - - - 30 28 TBILI - 0.3 - - - 0.3 0.5 - = values in this interval not displayed. Recent Labs Component Name 09/14/24 1344 09/12/24 0613 09/11/245 09/08/2445 09/07/24171308/27/24 2305 PT 13.7 14.2 13.8 - 12.9 14.1 INR 1.1 1.1 1.1 - 1.0 1.1 PTT - - - - 30.2 29.3 - = values in this interval not displayed. Recent Labs Component Name 08/27/24 2305 CKTOTAL 417* Assessment and Plan: Moderate dementia with agitation (HCC) (POA: Yes) History of SCC (squamous cell carcinoma) of skin (POA: Yes) Fall (POA: Yes) SDH (subdural hematoma) (HCC) (POA: Yes) Observed seizure-like activity (HCC) (POA: Yes) Severe protein-calorie malnutrition (HCC) (POA: Yes) Failure to thrive in adult (POA: Yes) CLARK (acute kidney injury) (HCC) (POA: Yes) Left cephalic vein thrombosis (POA: Yes) #Moderate dementia with behavioral disturbance: Qtc interval 445. Psychiatry consulted. Continue Lexapro and Seroquel. Add IM Zyprexa PRN for agitation. #CLARK: Likely 2/2 prerenal azotemia. Resolved with IVF #Severe protein calorie malnutrition: Hop Strainer following #H/o left cephalic vein thrombosis causing LUE: Continue Eliquis #H/o Seizure disorder: Continue Keppra BID Prophy: Eliquiis Diet: Mechanical soft diet Dispo: Discharge pending psych eval and placement Code: DNR if pulseless Andre Fisher MD 09/17/2024 6:15 PM VALET * Salena Cook, PT - 09/17/2024 2:27 PM CST Physical Therapy Evaluation. PT orders received, chart reviewed for diagnosis and medical systems review.. Nursing consents for PT. Explained purpose of PT and patient consented to participate in therapy. RECOMMENDATIONS/PLAN: PT Discharge Recommendations: (LTC) AM-PAC Basic mobility score for this patient is Mobility Raw Score:: 15 PMH: Past Medical History: Diagnosis Date Actinic keratosis Dementia (HCC) Squamous cell carcinoma Dx: (R62.7) Failure to thrive in adult (primary encounter diagnosis) Caregiver Nhung at bedside:provided PLOF reporting patient requiring increased assist in past month with mobility and adls d/t impaired cognition. [facility] NIKKIE Andersen and Quiana Olvera presents and removed restraints. Patient alert- pleasantly confused, participates in PT with assist from PT with redirection/ encouragement from PT and caregiver. He requires min a with functional mobility for balance and safety - functional mobility limited by impaired cognition, general weakness. Patient incontinent of bowel at end of session, required total assist with hygiene. Patient seated in recliner with chair alarm and caregiver at bedside. Floor mats in place. Caregiver with notify NIKKIE Andersen before she leaves the room so field staff manager can provide supervision. PT recommend assist/ supervision from field staff manager with mobility. Patient is not able to participate inskilled PT at this time secondary to impaired cognition. SUBJECTIVE: Patient alert-confused. Oriented to name only. I need to go to the bathroom. Therapist attempted to assist patient to the bathroom- pt not able to follow commands / directions to amb to bathroom and progressed to amb in hallway. Home Situation: Home Situation Type of Residence: Private Residence Living arrangement: Alone;Family Members (\caregiver Nhung at bedside- reprots caregivers/ familyprovide care.) Steps to Enter: 3 Home Structure: One Story Primary Bedroom: First Floor Primary Bathroom: First Floor Equipment at Home: Bathroom Equipment;Walker;Wheelchair Type of Walker: Front Wheeled Walker Type of Wheelchair: Standard Prior Level of Functioning: Prior Level of Function Mobility: Ambulate-In Home ;With Assistive Device;With Physical Assistance Fallen Within 6 Mos: No Have Help at Home?: Yes, there is help at home now Who assists you at home?: Home Health;Friends/Family How often is assistance provided?: 24 hrs/day Level of Help Sufficient?: No (caregiver reports patient requires increased assist past month secondary to increased confusion) Activity at Home: Active Who manages medications?: family Pain Assessment: Pain Assessment Pain Rating Score #1: (no report of pain. no grimacing) OBJECTIVE: Cognition: Orientation Level: Disoriented to Place;Disoriented to Situation;Disoriented to Time Cognition: Confused;Acute Memory Loss;Poor attention or concentration;Unable to follow commands Level of Consciousness-Adult: (pt confused - not able to follow simple commands consistently. requires physical assist and redirection with mobility) Participation: Active Participation Precautions: fall ROM and Strength: AROM - Right Lower Extremity: Within Functional Limits Strength - Right Lower Extremity: Within Functional Limits AROM - Left Lower Extremity: Within Functional Limits Strength - Left Lower Extremity: Within Functional Limits Balance: Sitting - Static: Good -;With Both Upper Extremity's Support Standing - Static: Fair +;With Both Upper Extremity's Support Standing - Dynamic: Fair -;With Both Upper Extremity's Support Bed Mobility: Supine to Sit: Minimal Assistance;Requires Verbal Cues for Safety;Requires Verbal Cues for Technique Sit to Supine: Activity Does Not Occur Transfers: Sit to Stand: Minimal Assistance;Requires Verbal Cues for Safety;Requires Verbal Cues for Technique Stand to Sit: Minimal Assistance;Requires Verbal Cues for Safety;Requires Verbal Cues for Technique Mobility: Distance Ambulated (ft): 80 FEET Ambulation: Assistive Device: Gait Belt;Walker-2 Wheeled Ambulation: Level of Assistance: Minimum Assistance;Requires Verbal Cues for Safety;Requires VerbalCues for Technique;Requires Physical Cues for Safety;Requires Physical Cues for Technique (requiresassist with positioning with ww) Ambulation: Gait Deviations: Anh - Decreased;Base of Support - Increased;Increased Weight Bearing through Upper Extremity;Step Length - Decreased;Path Deviation Activity Tolerance:on RA. VSS see doc flow Call light and phone in reach with chair alarm activated. All lines, monitors, IV's, equipment in place and intact pre and post visit. RNNathaly , notified of patient's performance/location end of session. Pt educated in PT plan of care, fall precautions, and benefits of OOB activity. Problem list: decreased strength, decreased balance, decreased endurance, decreased ROM, decreased coordination Functional limitations: Decreased independence with ambulation/transfers, decreased safety with functional mobility. Rationale for therapy: Patient will benefit from PT to address the above issues. Refer to Plan of Care for PT goals. Please refer to Filed Flowsheet PT Evaluation for further details. If this is the last PT visit, this note serves as the discharge summary. Deja PT [phone] VALET * Tien Zaragoza, OT - 09/17/2024 1:38 PM CST OT order noted, chart review complete. Attempted to see pt for OT initial eval, however pt just fell asleep in recliner setup at nurses station, RN requesting therapy to hold for now. Will attempt tosee pt at a later time/date for initial eval. Thank you for the referral, Tien NATALYR/L [phone] 09/17/2024 VALET * Veronica Owen LCSW - 09/17/2024 1:15 PM CST Social Work Progress Note Discharge Plan Disposition: per MDR, remains in 3 point restraints. Staff will work on removing the one from his right leg and he still needs to try and work with PT/OT once he's able to do so. possible SNF/Med-A into [facility] vs [facility] directly. Will be private pay in a MCU if he goes that route directly from the hospital. SW f/u with Lamont/admin at [facility]. . Eva/admissions or Lamont Pearce/Russian Teacher email: [email or web address] to see if they were able to review the info I sent yesterday on mr. Alvares. Transportation: Transportation at discharge: Ambulance Anticipated Discharge Date: 09/18/2024 Contacts: Extended Emergency Contact Information Primary Emergency Contact: Dia DodgeFrandy Mobile Relation: Son Secondary Emergency Contact: Shayy Hay Mobile Relation: Friend *room visit with patient. Laying in bed. 3 point restraints. Asking me to take the one off of his leg. I explained that the team will be in shortly to remove it from his leg and that he will need to try and walk with PT sometime so he can get his strength back up. He agreed. Pleasantly confused. Comments: Name/Phone number: Veronica Owen LCSW, PRODUCT DEMONSTRATOR, MPH Extensions: [phone] VALET * Ronny Shetty - 09/17/2024 11:15 AM CST Insole Lip Turner visited in room right after Doctor was leaving. Patient seems agitated, difficulty listening, and anxious. Insole Lip Turner and patient spoke for a few moments and then Insole Lip Turner offered prayer. Patient stated that they hoped it would help. 09/17/24 1100 Spiritual In what ways can we or our chaplains presently attend to your spiritual, emotional or cultural needs? None Visit Type Assessment Date 09/17/24 Pastoral Care Reason for Visit Initial Visit Pastoral Care Visit Type(s) Initial Visit Encounter Type Patient Spiritual History Belief System [facility] Community Family and Friends Support Spiritual Assessment Spiritual Assessment Coping Skills Stressed Interventions Pastoral Care Conversation;Prayer;Reflective Listening Plan/Outcome Plan Will Remain Available if Requested VALET * Celena Myers, NEONATAL NURSE - 09/17/2024 8:00 AM CST Speech Pathology: Frandy Alvares is a 89 year old male, admitted for AMS, FTT. Patient seen this date for dysphagia follow up. Past medical history includes: Past Medical History: Diagnosis Date Actinic keratosis Dementia (HCC) Squamous cell carcinoma S: Pt was asleep upon arrival with breakfast tray of easy to chew/mechanical soft with thin liquidsat bedside. Pt repositioned upright for intake and mostly kept eyes closed for the majority of the session, needing occasional cues to remain alert. In soft bilateral wrist restraints for session. O: Pt initially was slow to become appropriate for intake. Pt presented with bite-sized sausage, pancake, cream of wheat and thin liquids via straw. Notable some slowed mastication with reduced lingual lateralization for clearance. Pharyngeal phase was timely and no overt clinical s/sx of aspiration noted. Pt was able to occasionally assist with feeding liquids but needed assistance with foods d/t poor initiation and awareness. Recommend continuing with easy to chew/mechanical soft with thin liquids meds crushed in puree 1:1 assist (suspect pt will try to chew medicine ). NEONATAL NURSE to follow. Patient/Caregiver goals: I don't know what I'm trying to say. Assessment: Primary Diagnostic Impression - Oral: Mild;Dysphagia Primary Diagnostic Impression - Pharyngeal: No dysphagia suspected Risk For Aspiration: Mild HOLLEY Assessment: MASA Score: 171 Dysphagia Severity Level: Mild (168 - 177) Risk for Aspiration: Nil abnormality detected (170 - 200) Risk of aspiration is reduced with the use of diet modification/compensatory strategies. Compensatory Swallowing Strategies: 90 Degrees elevation for all oral intake;One to one assist withmeals;Small bites/sips;Eat/Feed slowly Results discussed with: Results discussed with:: Patient;Nursing Recommend: Diet Solids Recommendation: Easy to Chew (EC7)/Mechanical Soft Diet Liquids Recommendation: Thin/ Thin (0) Recommended Form of Meds: Crushed;With puree Risk For Aspiration: Mild Strategies Include: Compensatory Swallowing Strategies: 90 Degrees elevation for all oral intake;One to one assist withmeals;Small bites/sips;Eat/Feed slowly Follow Up: Recommendations: Dysphagia Treatment Follow Up: Speech therapy to follow. Please refer to Care Plan. PPE: PPE worn by staff: gloves PPE worn by patient: gown - patient, clean If this is the last Speech Therapy visit, this serves as the discharge summary. Thank you for this referral. Celena Colón NEONATAL NURSE 09/17/2024 10:37 AM Ext. [phone] VALET * Melissa Alvarez MD - 09/16/2024 4:38 PM CST Hospitalist Progress Note Admission Date: 09/15/2024 Hospital Day: 1 Room Number: [id number] Subjective: Examined this a.m Very agitated and restless, resumed seroquel. Hospital course summary: eordheeraj Alvares is a 89 year old male with a PMH significant for dementia alert to self at baseline, anemia, squamous cell carcinoma, superficial venous thrombus on Eliquis, recent admission for MSSA UTI that presented to the hospital ([facility])due to altered mental status. Family was concerned about weakness and about their inability to provide care for the patient. Per chart review recent multiple falls. 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 Per neuro surgery, no acute neurosurgical interventions at this time, okay to continue Eliquisand neurosurgery has signed off. He was subsequently transferred to [facility] Objective: Intake/Output Summary (Last 24 hours) at 09/16/2024 1638 Last data filed at 09/16/2024 1337 Gross per 24 hour Intake 360 ml Output 450 ml Net -90 ml Temp: [97.6 ??F (36.4 ??C)-98.3 ??F (36.8 ??C)] 97.6 ??F (36.4 ??C) Pulse: [68-87] 78 Resp: [16-18] 18 BP: (130-177)/(41-90) 177/90 Physical Exam Vitals and nursing note reviewed. Constitutional: General: He is not in acute distress. Appearance: He is not toxic-appearing. Cardiovascular: Rate and Rhythm: Normal rate and regular rhythm. Pulses: Normal pulses. Heart sounds: Normal heart sounds. Pulmonary: Effort: Pulmonary effort is normal. Breath sounds: Normal breath sounds. Abdominal: General: Abdomen is flat. Bowel sounds are normal. There is no distension. Musculoskeletal: Right lower leg: No edema. Left lower leg: No edema. Neurological: Mental Status: Mental status is at baseline. Data: Labs and imaging data reviewed. 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 Continue Lexapro and IV keppra -Hop Strainer following, PT/OT DVT prophylaxis - Diet - DIET MODIFIED CONSISTENCY DIETARY NUTRITION SUPPLEMENTS ONCE Code status- DNR - IF PULSELESS NO CPR, NO SHOCK Disposition plan - Non Long Term Facility Melissa Alvarez M.D [facility] [place]. Internal Medicine VALET * Tonny Castaneda RN - 09/16/2024 2:16 PM CST Care Coordination Initial Assessment Expected Discharge Date: 09/18/2024 Expected Discharge Disposition: Non Long Term Facility Transportation at Discharge: Ambulance Prior Level of Care: Home Health Care Prior to Admit Provider: Comments: pt from home with caregivers in home. Family unable to care for patient at home any longer and patient is needing placement. SW consulted and following for placement. Lives with: Alone;Family Members (caretakers rotate in and out. family assistance) Physical Limitations: Ambulation with use of DME Requires Assistance With: Mobility;Dressing;Hygiene;Housekeeping;Meal Preparation;Medication Administration;Shopping;Toileting Preferred Pharmacy: [facility] [phone] [place] [phone] [place] [phone] READMISSION RISK SCORE is 23 at 2:17 PM 09/16/2024. Family Support (name and phone): Extended Emergency Contact Information Primary Emergency Contact: Frandy Alvares Jr Mobile Relation: Son Secondary Emergency Contact: Shayy Hay Mobile Relation: Friend Patient or claims customer service representative requests care coordination reach out to family or caregiver listed above regarding discharge planning and at time of discharge? Yes Actual Level of Care/Dispostion Details Actual Level of Care at Discharge: Shelter - Skilled Facility Durable Medical Equipment Planning Equipment at Home: Bathroom Equipment;Walker;Wheelchair Type of Wheelchair: Standard Char Conveyor Tender Cellar Referral: Yes Will continue to follow. For any questions or needs please contact: Supervisor Cooler Service/Social Work Name/Phone number: Tonny Castaneda RN Case Manager VALET * Berto Barry LMSW - 09/16/2024 10:17 AM CST Berto Adame LMSW has submitted a consult to psychiatry request in the [employer] Portal for TeleHealth evaluation at [phone]. [employer] contact number: [phone] VALET * Celena Myers SLP - 09/16/2024 8:16 AM CST CLINICAL SWALLOW EVALUATION Speech Pathology: Order received and chart reviewed. Clinical Dysphagia Evaluation completed. Please refer to Clinical Swallow Study doc flowsheet for full results. Frandy Alvares is a 89 year old male, admitted for AMS, FTT. Past medical history includes: Past Medical History: Diagnosis Date Actinic keratosis Dementia (HCC) Squamous cell carcinoma Pt alert in bed, agitation focused more on leg restraints than any other topic. Some pulling at blankets, etc. Pt with xerostomia, adequate dentition, range of motion, strength and coordination mildly reduced overall. Pt presented with thin liquids via straw, puree and hard solids. Oral phase mildly uncoordinated, more so with hard solids needing multiple swallows and a liquid wash to clear. Phary ngeal phase timely. No overt clinical s/sx of aspiration noted. Pt is safe to initiate Easy to chew/mechanical soft with thin liquids, meds crushed in puree 1:1 assist (suspect pt will try to chew medicine ). NEONATAL NURSE to follow. Patient/Caregiver goals: Take this leg strap off me. Cut it with your pocket knife. Assessment: Primary Diagnostic Impression - Oral: Mild;Dysphagia Primary Diagnostic Impression - Pharyngeal: No dysphagia suspected Risk For Aspiration: Mild HOLLEY Assessment: MASA Score: 171 Dysphagia Severity Level: Mild (168 - 177) Risk for Aspiration: Nil abnormality detected (170 - 200) Risk of aspiration is reduced with the use of diet modification/compensatory strategies. Recommend: Diet Solids Recommendation: Easy to Chew (EC7)/Mechanical Soft Diet Liquids Recommendation: Thin/ Thin (0) Recommended Form of Meds: Crushed;With puree Risk For Aspiration: Mild Strategies Include: Compensatory Swallowing Strategies: 90 Degrees elevation for all oral intake;One to one assist withmeals;Small bites/sips;Eat/Feed slowly Results discussed with: Results discussed with:: Patient;Nursing Follow Up: Recommendations: Dysphagia Treatment Follow Up: Speech therapy to follow. Please refer to Care Plan. PPE: PPE worn by staff: gloves PPE worn by patient: gown - patient, clean If this is the last Speech Therapy visit, this serves as the discharge summary. Thank you for this referral. Celena Colón NEONATAL NURSE 09/16/2024 9:44 AM [phone] VALET * Salena Cook, PT - 09/16/2024 7:58 AM CST Attempted to see patient for physical therapy. Unable to complete visit due to per RN Blas patientis not able to participate in therapy secondary to he is agitated, combative and in 3 point restraints . PT will attempt to see patient at a later date. Deja PT [phone] VALET * Tien Zaragoza OT - 09/16/2024 7:56 AM CST OT order noted, chart review complete. Attempted to see pt for OT initial eval, however per RN pt agitated this AM, not appropriate to actively participate in skilled OT. Addendum 1435: Per RN pt less agitated. Returned to pt room for skilled OT evaluation. Pt not currently appropriate d/t pt not actively following commands, pt speaking nonsensically. RN aware. Will attempt to see pt at a later time/date for initial eval when appropriate. Thank you for the referral, NATALY ChauhanR/L [phone] 09/16/2024 VALET * Flavio Riggs RN - 09/15/2024 6:59 PM CST VSS; AOx1; RA; CGA but not redirectable Very drowsy; slept entire shift except 1x instance of standing and being very uncooperative; incontx2 on the floor; afterwards pt was resting comfortably; 4 staff members utilized 20LFA infusing NS@75 Condom cath replaced Abrasions/scabs x4 extremities Strong for his age and not redirectable when he is awake; did not get combative but has in the pastper family Currently no restraints but was on multiple restraint types @ prev facility Currently NAD Flavio Riggs RN 09/15/2024 7:03 PM VALET documented in this encounter H&P Notes * Kalee Juares APRN-RICHARD - 09/15/2024 11:08 AM CST [facility] Care Physician Group H&P Name: Frandy Alvares : 1935 Age: [age] year old Admit Date: 09/15/2024 PCP: Bao Pierre MD Chief complaint: Altered mental status HPI Frandy Alvares is a 89 year old male with a PMH significant for dementia alert to self at baseline,anemia, squamous cell carcinoma, superficial venous thrombus on Eliquis, recent admission for MSSA UTI that presented to the hospital ([facility])due to altered mental status. Family was concerned about weakness and about their ability to provide care for the patient. Per chart review recent multiple falls. 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 Initial vital signs: Hypertension 157/74 Initial labs: BUN 32, creatinine 1.71, GFR 38, glucose 101, Imaging: Chest x-ray did not show anything acute PAST MEDICAL HISTORY Past Medical History: Diagnosis Date Actinic keratosis Dementia (HCC) Squamous cell carcinoma PAST SURGICAL HISTORY Past Surgical History: Procedure Laterality Date Back Surgery Cataract Removal Bilateral Rotator Cuff Repair FAMILY HISTORY Family History Problem Relation Name Age of Onset High Blood Pressure Mother CAD (Coronary Artery Disease) Mother Asthma Neg Hx Eczema Neg Hx Cancer - Other Neg Hx Cancer - Breast Neg Hx Cancer - Skin, Non Melanoma Neg Hx Cancer - Skin, Melanoma Neg Hx CVA Neg Hx Hemophilia Neg Hx Psoriasis Neg Hx SOCIAL HISTORY Social History Socioeconomic History Marital status: Spouse name: Not on file Number of children: Not on file Years of education: Not on file Highest education level: Not on file Occupational History Not on file Tobacco Use Smoking status: Former Types: Pipe Quit date: 2014 Years since quittin.9 Smokeless tobacco: Former Vaping Use Vaping status: Former Substance and Sexual Activity Alcohol use: Yes Comment: rarely Drug use: No Sexual activity: Never Other Topics Concern Not on file Social History Narrative Not on file Social Determinants of Health Financial Resource Strain: Low Risk (09/08/2024) Overall Financial Resource Strain (CARDIA) Difficulty of Paying Living Expenses: Not very hard Food Insecurity: No Food Insecurity (09/08/2024) Hunger Vital Sign Worried About Running Out of Food in the Last Year: Never true Ran Out of Food in the Last Year: Never true Transportation Needs: No Transportation Needs (09/08/2024) PRAPARE - Transportation Lack of Transportation (Medical): No Lack of Transportation (Non-Medical): No Stress: Patient Unable To Answer (09/08/2024) [employer] - Occupational Stress Questionnaire Feeling of Stress : Patient unable to answer Housing Stability: Low Risk (09/08/2024) Housing Stability Vital Sign Unable to Pay for Housing in the Last Year: No Number of Times Moved in the Last Year: 0 Homeless in the Last Year: No ALLERGIES Ativan [lorazepam] and Epinephrine MEDICATIONS Medications Prior to Admission Medication Sig Dispense Refill acetaminophen (Tylenol) 500 MG tablet Take 2 (two) tablets by mouth every 8 hours as needed for Headache (pain) Maximum allowable Acetaminophen amount = 4 Grams (4000 mg) / 24 hours. apixaban (Eliquis) 2.5 MG tablet Take 1 (one) tablet by mouth 2 times daily for 30 days 60 tablet 0 [] cephalexin (Keflex) 500 MG capsule Take 1 (one) capsule by mouth 4 times daily for 2 days8 capsule 0 escitalopram (Lexapro) 10 MG tablet Take 1 (one) tablet by mouth once daily 30 tablet 2 folic acid (Folvite) 1 MG tablet Take 1 (one) tablet by mouth once daily 30 tablet 0 levETIRAcetam (Keppra) 500 MG tablet Take 1 (one) tablet by mouth 2 times daily 60 tablet 2 Multiple Vitamins-Minerals (HAIR SKIN AND NAILS FORMULA) TABS Take 2 tablets by mouth once daily Nutritional Supplements (Ensure Plus High Protein) LIQD Take 1 container by mouth 3 times daily polyethylene glycol 3350 (Miralax) 17 g packet Take 17 (seventeen) g by mouth once daily QUEtiapine (SEROquel) 25 MG tablet Take 1 (one) tablet by mouth every morning AND 0.5 (one-half) tablet at bedtime. May also take 0.5 (one-half) tablet 3 times daily as needed. Reasons: Agitation. 90tablet 2 senna (Senokot) 8.6 MG tablet Take 1 (one) tablet by mouth once daily Vitamin D, Cholecalciferol, 1000 UNITS CAPS Take 1 (one) capsule by mouth once daily REVIEW OF SYSTEMS Pertinent positives as noted in HPI. Dementia alert to self PHYSICAL EXAM Vitals: 09/15/24 1011 BP: 157/74 Pulse: 59 Resp: 16 Temp: 98.3 ??F (36.8 ??C) SpO2: 96% Weight: 71.4 kg (157 lb 8 oz) Height: 1.702 m (5' 7 ) Physical Exam Constitutional: Appearance: Normal appearance. HENT: Head: Normocephalic and atraumatic. Right Ear: External ear normal. Left Ear: External ear normal. Nose: Nose normal. Mouth/Throat: Mouth: Mucous membranes are moist. Pharynx: Oropharynx is clear. Eyes: General: No scleral icterus. Extraocular Movements: Extraocular movements intact. Conjunctiva/sclera: Conjunctivae normal. Pupils: Pupils are equal, round, and reactive to light. Neck: Vascular: No carotid bruit. Cardiovascular: Rate and Rhythm: Normal rate and regular rhythm. Pulses: Normal pulses. Heart sounds: Normal heart sounds. Pulmonary: Effort: Pulmonary effort is normal. Breath sounds: Normal breath sounds. bilaterally clear to auscultation. No wheezes, rales, or rhonchi. Abdominal: General: Bowel sounds are normal. There is no distension. Palpations: Abdomen is soft. Tenderness: There is no abdominal tenderness. There is no guarding or rebound. Musculoskeletal: General: Normal range of motion. Cervical back: Normal range of motion and neck supple. Vascular: No cyanosis, clubbing or edema. Palpable peripheral pulses with brisk capillary refill. Skin: General: Ecchymosis noted on extremity Neurological: Mental Status: Open eyes with stimulation Motor: Generalized weakness. LAB DATA Recent Labs Component Name 09/14/24 1334 09/11/24 2029 09/10/24 2128 09/08/24 0545 09/07/24 1714 08/29/24 0448 08/27/24 2305 07/03/15 0853 WBC 9.2 6.4 7.8 - 10.0 - 10.7 9.4 RBC 2.83* 2.87* 2.97* - 3.29* - 3.47* 4.79 HGB 8.9* 8.9* 9.4* - 10.3* - 10.9* 15.2 HCT 26.8* 27.4* 28.9* - 30.8* - 31.9* 46.2 MCV 94.7 95.5 97.3 - 93.6 - 91.9 96.4 MCHC 33.2 32.5 32.5 - 33.4 - 34.2 32.8 RDW - - - - - - - 13.3 RDWCV 13.9 14.0 14.1 - 13.9 - 13.1 - PLTCOUNT 283 205 188 - 212 - 203 - NEUTPCT 76.0* - - - 75.9* - 75.1* 77.2 LYMPHPCT 12.9* - - - 12.5* - 15.2* - LYMPHABS 1.18 - - - 1.25 - 1.62 - BASOABS 0.06 - - - 0.03 - 0.05 - - = values in this interval not displayed. Recent Labs Component Name 09/15/24 1120 09/14/24 1334 09/11/24202709/08/24 0545 09/07/24 1714 SODIUM 137 - - - - POTASSIUM 4.7 5.1* 4.1 - 4.4 CHLORIDE 106 - - - - CO2 25 22 25 - 23 BUN 32* 29* 20 - 26 CREATININE 1.71* 1.04 0.95 - 1.00 GLUCOSE 101* 96 111* - 91 CALCIUM 8.4 8.5 8.2* - 8.8 ALBUMIN 2.8* - - - - ALKPHOS 122 130 - - 134 ALT 13 15 - - 30 AST 25 28 - - 32 TBIL 0.4 - - - - TPROT 5.7* - - - - EGFR 38* 69* 77* - 72* - = values in this interval not displayed. Recent Labs Component Name 09/14/24 1335 08/28/24205107/03/15 0853 PHUA 5.0 - - PROTEINUA - - NEGATIVE UROBILINUA Negative - - - = values in this interval not displayed. No results for input(s): BNP , NTPROBNP in the last 40478 hours. No results for input(s): LACTICACID in the last 43864 hours. Recent Labs Component Name 09/14/24 1344 09/12/24 0613 09/11/245 09/08/24 0545 09/07/24 1714 08/27/24 2305 INR 1.1 1.1 1.1 - 1.0 1.1 PT 13.7 14.2 13.8 - 12.9 14.1 PTT - - - - 30.2 29.3 - = values in this interval not displayed. Recent Labs Component Name 09/14/24 1334 09/11/24202809/10/248 WBC 9.2 6.4 7.8 HGB 8.9* 8.9* 9.4* HCT 26.8* 27.4* 28.9* PLTCOUNT 283 205 188 No results for input(s): BNP in the last 48128 hours. No results for input(s): TROPONIN in the last 23595 hours. No results for input(s): TSH in the last 71465 hours. IMAGING: XR CHEST 1VW PORTABLE Result Date: 09/14/2024 PROCEDURE: XR CHEST 1VW PORTABLE, DATE/TIME OF EXAM: 09/14/2024 2:49 PM, LOCATION [facility] INDICATION: W19.XXXA: Fall, initial encounter ADDITIONAL CLINICAL INFORMATION: Ordering Provider Reason For Exam: rule out pna COMPARISON: X-ray chest 08/27/2024. TECHNIQUE: Frontal radiograph of the chest. FINDINGS/IMPRESSION: There is no focal consolidation, pleural effusion, or pneumothorax. The cardiac silhouette is normal. There is atherosclerotic calcification of the aorta. The visible bony thorax is intact. Report dictated by Wesley Renner MD, (Fur Operator). I, Jason Mina MD have personally reviewed and interpreted this examination/study. > Interpreting Provider: Jason Mina MD on 09/14/2024 8:[address] Head Wo Contrast Result Date: 09/14/2024 PROCEDURE: CT HEAD WO CONTRAST, DATE/TIME OF EXAM: 09/14/2024 5:32 PM, LOCATION [facility] INDICATION: W19.XXXA: Fall, initial encounter ADDITIONAL CLINICAL [...] linear hyperdense foci involving the left cerebral extra- axial collection (image 11, series 4) image 42, series 6).. Mild mass effect on the bilateral anterior temporal poles, frontoparietal regions again noted.. The ventricles are of normal size, shape, and morphology. The basilar cisterns are patent.No mass effect or midline shift is seen. The pantoja-white matter differentiation is normal. Periventricular white matter hypoattenuation is indicative of chronic small vessel ischemic disease. There isvascular calcification of the carotid siphons. No acute calvarial fracture is identified. Other than bilateral cataract extractions, the orbits appear normal. There is mild paranasal sinus disease. Mild opacification of the bilateral mastoid air cells No soft tissue abnormality is identified. IMPRESSION: Bilateral predominantly hypodense subdural collections/chronic subdural hematomas againnoted measuring up to 6 mm on the right side and 11 mm on the left side as described above. Minimalinterval increase in the size compared to prior study. Scattered hyperdense foci within the left chronic subdural hematoma could be secondary to prominent vasculature versus superimposed acute on chronic blood products, follow-up CT could be performed in 2023 hours. No significant mass effect ormidline shift. Otherwise no new foci of hemorrhage > Interpreting Provider: Philomena Hopkins MD on 09/14/2024 5:46 PM XR Humerus Left 2Vw or More Result Date: 09/07/2024 PROCEDURE: XR HUMERUS LEFT 2VW OR MORE, DATE/TIME OF EXAM: 09/07/2024 6:31 PM, LOCATION [facility] INDICATION: M79.89: Left arm swelling ADDITIONAL CLINICAL INFORMATION: Ordering Provider Reason For Exam: swelling Technologist Note: Additional: COMPARISON: None. FINDINGS: The humerus is intact without acute fracture. Bone density and texture are normal. No soft tissue swelling. IMPRESSION: No acute humeral fracture identified. Report dictated by Dante Mcclain MD, MD (resident care associate). IJason MD have personally reviewed and interpreted this examination/study.> Interpreting Provider: Jason Mina MD on 09/07/2024 9:40 PM MRI Brain Wwo Contrast Result Date: 09/06/2024 PROCEDURE: MRI BRAIN WWO CONTRAST, DATE/TIME OF EXAM: 09/05/2024 9:34 AM, LOCATION [facility] INDICATION: R41.82: Altered mental status, unspecified altered mental status type ADDITIONAL CLINICAL INFORMATION: Ordering Provider Reason For Exam: Epilepsy protocol Technologist Note: Epilepsy protocol. Does the patient have a pacemaker or defibrillator?->No Does the patient have metal implants or stents?->No Additional: None. EXAMINATION: Magnetic resonance imaging (MRI) of the brain without and with contrast CONTRAST: GADOBUTROL 1 MMOL/ML IV SSM [...] to different age of these collections. There isvery minimal if any mass effect on the [...] grossly unremarkable. There is reduced caliber and increasedFLAIR signal of the hippocampi bilaterally. 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 Clinical correlation is recommended. No distinct developmental a bnormalities are identified. Other than bilateral cataract extractions, the visualized portions of the orbits appear otherwise grossly unremarkable optic nerve sheaths is are tortuous. There is mild paranasal sinus disease. There is diffuse opacification in the mastoid air cells bilaterally. Normalflow voids are demonstrated in the carotid arteries and basilar artery. The calvarium and visualized cervical spine appear grossly unremarkable. 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 > Interpreting Provider: Kalyani Cortez MD on 09/06/2024 7:49 AM XR Ankle Left 3Vw or More Result Date: 08/30/2024 PROCEDURE: XR ANKLE LEFT 3VW OR [...] Provider: Tyree Tyler on 08/30/2024 11:[address] Head Wo Contrast Result Date: 08/29/2024 PROCEDURE: CT HEAD WO CONTRAST, DATE/TIME OF EXAM: 08/29/2024 10:56 AM, LOCATION [facility] INDICATION: S06.5XAA: SDH (subdural hematoma) (HCC) EXAMINATION: Computed tomography (CT)of the head without contrast ADDITIONAL CLINICAL INFORMATION: Ordering Provider Reason For Exam: seizure Technologist Note: Additional: CONTRAST: TECHNIQUE: CT of the head was performed without contrast according to standard protocol. CT dose reduction technique was used, including Automated Exposure Control. COMPARISON: Head CT from 08/27/24 at 11:13 PM FINDINGS: Unchanged bilateral chronic appearing subdural collections measuring up to 9 mm along the bilateral anterior cerebral convexities again noted. No interval change in the size of density compared to prior study. Mild mass effect on the bilateral anterior [...] normal. There is mild paranasal sinus disease. The mastoid air cells are clear. No soft tissue abnormality is identified. IMPRESSION: 1.Redemonstration of chronic appearing small subdural hematoma along the bilateral anterior convexities measuring up to 9 mm unchanged in size and density compared to prior study. Mild mass effect on the adjacent cerebral hemispheres however without significant midline shift. No new foci of hemorrhage. Report dictated by Faiza Pate MD I, Kavya Sudanagunta, MD have personally reviewed and interpreted this examination/study. > Interpreting Provider: Philomena Hopkins MD on 08/29/2024 12:11 PM XR PELVIS 1 OR 2VW Result Date: 08/28/2024 PROCEDURE: XR PELVIS 1 OR 2VW, DATE/TIME OF EXAM: 08/27/2024 11:34 PM, LOCATION [facility] INDICATION: Trauma Fracture suspected ADDITIONAL CLINICAL INFORMATION: Ordering Provider Reason For Exam: Technologist Note: Additional: COMPARISON: None. FINDINGS: Left hip arthroplasty. Noacute fracture. Degenerative changes in the right hip. The pubic symphysis is intact. Bone density and texture are normal. The sacroiliac joints are normal. Severe degenerative changes in the lower lumbar spine. IMPRESSION: No acute fracture identified. Report dictated by Dante Mcclain MD, (resident care associate). ISho MD have personally reviewed and interpreted this examination/study. > Interpreting Provider: Sho Minaya MD on 08/28/2024 9:15 AM XR CHEST 1VW PORTABLE Result Date: 08/28/2024 PROCEDURE: XR CHEST 1VW PORTABLE, DATE/TIME OF EXAM: 08/27/2024 11:33 PM, LOCATION [facility] INDICATION: Trauma ADDITIONAL CLINICAL INFORMATION: Ordering Provider Reason For Exam: Technologist Note: Additional: COMPARISON: None. TECHNIQUE: Frontal radiograph of the chest. FINDINGS /IMPRESSION: There is no focal consolidation, pleural effusion, or pneumothorax. The cardiac silhouette is normal. There is atherosclerotic calcification of the aorta. The visible bony thorax is intact. Suture anchors are in the right humeral head. Report dictated by Dante Mcclain MD, (resident care associate). Sho Macedo MD have personally reviewed and interpreted this examination/study. > Interpreting Provider: Sho Minaya MD on 08/28/2024 9:15 AM XR Elbow Left 3Vw or More Result Date: 08/28/2024 PROCEDURE: XR ELBOW LEFT 3VW OR MORE, DATE/TIME OF EXAM: 08/27/2024 11:41 PM, LOCATION [facility] INDICATION: T14.90XA: Trauma ADDITIONAL CLINICAL INFORMATION: Ordering [...] identified. Report dictated by Dante Mcclain MD, (resident care associate). Sho Macedo MD have personally reviewed and interpreted this examination/study. > Interpreting Provider: Sho Minaya MD on 08/28/2024 9:13 AM XR Ankle Left 3Vw or More Result Date: 08/28/2024 PROCEDURE: XR ANKLE LEFT 3VW OR MORE, DATE/TIME OF EXAM: 08/27/2024 11:41 PM, LOCATION [facility] INDICATION: T14.90XA: Trauma ADDITIONAL CLINICAL INFORMATION: Ordering Provider Reason For Exam: Technologist Note: Additional: COMPARISON: None. FINDINGS: The osseous structures are intact and well aligned without acute fracture or dislocation. The ankle mortise is intact. Bone density and texture are normal. No soft tissue swelling is present. IMPRESSION: No acute fracture or dislocation identified. Report dictated by Dante Mcclain MD, (resident care associate). Sho Macedo MD have personally reviewed and interpreted this examination/study. > Interpreting Provider: Sho Minaya MD on 08/28/2024 9:[address] CHEST ABDOMEN PELVIS W CONT - Abdomen-pelvis trauma, blunt or penetrating Result Date: 08/28/2024 PROCEDURE: CT CHEST ABDOMEN PELVIS W CONT, DATE/TIME OF EXAM: 08/27/2024 11:36 PM, LOCATION [facility] INDICATION: Trauma ADDITIONAL CLINICAL INFORMATION: Ordering Provider Reason For Exam: Technologist Note: Per the technologist, difficult scan with the patient [...] normal in size. No pericardial fluid or t hickening is present. The coronary arteries are atherosclerotic. Mediastinum and Funmi: No mediastinal hemorrhage is present. No enlarged lymph nodes are present. Thoracic Vasculature: The aorta and its branch vessels are atherosclerotic. Abdomen/pelvis: Liver: Normal. Gallbladder and Bile Ducts: Nor mal. Spleen: Normal. Pancreas: Normal. Adrenals: Normal. Kidneys: Normal. Gastrointestinal: The stomach and visualized loops of small bowel are unremarkable. Colonic diverticulosis without evidence of diverticulitis is seen. Normal appendix. Mesentery/Peritoneum/Retroperitoneum: No free intraperitoneal air. No free fluid in the abdomen or pelvis. Pelvic structures: Evaluation limited secondary tometallic artifact from the left hip arthroplasty. The [...] acute process in the abdomen or pelvis. >Dictated by Dorian Cuevas MD (resident care associate). I, Tyree Tyler have personally reviewed and interpreted this examination/study. > Interpreting Provider: Tyree Tyler on 08/28/2024 8:[address] HEAD WO CONTRAST - Head Trauma, CSF leak, mental status changes Result Date: 08/28/2024 PROCEDURE: CT HEAD WO CONTRAST, CT LUMBAR SPINE WO CONTRAST, CT THORACIC SPINE WO CONTRAST, CT CERVICAL SPINE WO CONTRAST, CT FACIAL BONES WO CONTRAST, DATE/TIME OF EXAM: 08/27/2024 11:36 PM, LOCATION [facility] INDICATION: Trauma ADDITIONAL CLINICAL INFORMATION: Ordering ProviderReason For Exam: Trauma. Technologist Note: None. Additional: None. EXAMINATION: 1.Computed tomography (CT) of the head without contrast 2.CT of the maxillofacial bones, orbits, and paranasal sinuseswithout contrast 3.CT of the cervical spine without [...] obscure abnormalities. Head: Significant motion artifact limits evaluationfor subtle abnormalities. Chronic appearing bilateral subdural collections/hematomas [...] siphons. No acute calvarial fracture is identified. Maxillofacial:Significant motion artifact through the orbits, frontal, ethmoid and nasal bones severely degrades e valuation for fractures in these regions. Other than [...] normal in thickness. The bones are mildly osteopen ic. Vertebral bodies are normal in height without [...] the thoracic kyphosis. The alignment is otherwise mainta ined. The bones are mildly osteopenic. Vertebral bodies [...] its branch vessels. Bibasilar streaky and groundglass opacities.There are atherosclerotic calcifications of the coronary arteries. Small calcified granuloma in theright lung base.. Lumbar spine: Significant motion artifact limits evaluation for subtle fractures.There are postoperative findings of posterior spinal decompression at L3-L4. Dextrocurvature of thelumbar spine. Mild grade 1 retrolisthesis of L3 [...] Partially imaged screws in the left hemipelvis. IMPRESSION: Significant motion artifact limits evaluation for subtle bleeds and fractures. Within this limitation, the following assessment is made: 1.Subacute to chronic appearing bilateral subduralcollections/hematomas measuring up to 9 mm in maximal [...] report is dictated by Dante Mcclain MD (resident care associate) I, Kalyani Cortez MD have personally reviewed and interpreted this examination/study. > Interpreting Provider: Kalyani Cortez MD on 08/28/2024 6:[address] FACIAL BONES WO CONTRAST - Facial trauma, fx suspected, blunt Result Date: 08/28/2024 PROCEDURE: CT HEAD WO CONTRAST, CT LUMBAR SPINE WO CONTRAST, CT THORACIC SPINE WO CONTRAST, CT CERVICAL SPINE WO CONTRAST, CT FACIAL BONES WO CONTRAST, DATE/TIME OF EXAM: 08/27/2024 11:36 PM, LOCATION [facility] INDICATION: Trauma ADDITIONAL CLINICAL INFORMATION: Ordering ProviderReason For Exam: Trauma. Technologist Note: None. Additional: None. EXAMINATION: 1.Computed tomography (CT) of the head without contrast 2.CT of the maxillofacial bones, orbits, and paranasal sinuseswithout contrast 3.CT of the cervical spine without [...] obscure abnormalities. Head: Significant motion artifact limits evaluationfor subtle abnormalities. Chronic appearing bilateral subdural collections/hematomas [...] siphons. No acute calvarial fracture is identified. Maxillofacial:Significant motion artifact through the orbits, frontal, ethmoid and nasal bones severely degrades e valuation for fractures in these regions. Other than [...] normal in thickness. The bones are mildly osteopen ic. Vertebral bodies are normal in height without [...] the thoracic kyphosis. The alignment is otherwise mainta ined. The bones are mildly osteopenic. Vertebral bodies [...] its branch vessels. Bibasilar streaky and groundglass opacities.There are atherosclerotic calcifications of the coronary arteries. Small calcified granuloma in theright lung base.. Lumbar spine: Significant motion artifact limits evaluation for subtle fractures.There are postoperative findings of posterior spinal decompression at L3-L4. Dextrocurvature of thelumbar spine. Mild grade 1 retrolisthesis of L3 [...] Partially imaged screws in the left hemipelvis. IMPRESSION: Significant motion artifact limits evaluation for subtle bleeds and fractures. Within this limitation, the following assessment is made: 1.Subacute to chronic appearing bilateral subduralcollections/hematomas measuring up to 9 mm in maximal [...] report is dictated by Dante Mcclain MD (resident care associate) I, Kalyani Cortez MD have personally reviewed and interpreted this examination/study. > Interpreting Provider: Kalyani Cortez MD on 08/28/2024 6:[address] CERVICAL SPINE WO CONTRAST - C-Spine Trauma, Spine fracture Result Date: 08/28/2024 PROCEDURE: CT HEAD WO CONTRAST, CT LUMBAR SPINE WO CONTRAST, CT THORACIC SPINE WO CONTRAST, CT CERVICAL SPINE WO CONTRAST, CT FACIAL BONES WO CONTRAST, DATE/TIME OF EXAM: 08/27/2024 11:36 PM, LOCATION [facility] INDICATION: Trauma ADDITIONAL CLINICAL INFORMATION: Ordering ProviderReason For Exam: Trauma. Technologist Note: None. Additional: None. EXAMINATION: 1.Computed tomography (CT) of the head without contrast 2.CT of the maxillofacial bones, orbits, and paranasal sinuseswithout contrast 3.CT of the cervical spine without [...] obscure abnormalities. Head: Significant motion artifact limits evaluationfor subtle abnormalities. Chronic appearing bilateral subdural collections/hematomas [...] siphons. No acute calvarial fracture is identified. Maxillofacial:Significant motion artifact through the orbits, frontal, ethmoid and nasal bones severely degrades e valuation for fractures in these regions. Other than [...] normal in thickness. The bones are mildly osteopen ic. Vertebral bodies are normal in height without [...] the thoracic kyphosis. The alignment is otherwise mainta ined. The bones are mildly osteopenic. Vertebral bodies [...] its branch vessels. Bibasilar streaky and groundglass opacities.There are atherosclerotic calcifications of the coronary arteries. Small calcified granuloma in theright lung base.. Lumbar spine: Significant motion artifact limits evaluation for subtle fractures.There are postoperative findings of posterior spinal decompression at L3-L4. Dextrocurvature of thelumbar spine. Mild grade 1 retrolisthesis of L3 [...] Partially imaged screws in the left hemipelvis. IMPRESSION: Significant motion artifact limits evaluation for subtle bleeds and fractures. Within this limitation, the following assessment is made: 1.Subacute to chronic appearing bilateral subduralcollections/hematomas measuring up to 9 mm in maximal [...] report is dictated by Dante Mcclain MD (resident care associate) I, Kalyani Cortez MD have personally reviewed and interpreted this examination/study. > Interpreting Provider: Kalyani Cortez MD on 08/28/2024 6:[address] THORACIC SPINE WO CONTRAST - T/L-spine trauma, spine fracture Result Date: 08/28/2024 PROCEDURE: CT HEAD WO CONTRAST, CT LUMBAR SPINE WO CONTRAST, CT THORACIC SPINE WO CONTRAST, CT CERVICAL SPINE WO CONTRAST, CT FACIAL BONES WO CONTRAST, DATE/TIME OF EXAM: 08/27/2024 11:36 PM, LOCATION [facility] INDICATION: Trauma ADDITIONAL CLINICAL INFORMATION: Ordering ProviderReason For Exam: Trauma. Technologist Note: None. Additional: None. EXAMINATION: 1.Computed tomography (CT) of the head without contrast 2.CT of the maxillofacial bones, orbits, and paranasal sinuseswithout contrast 3.CT of the cervical spine without [...] obscure abnormalities. Head: Significant motion artifact limits evaluationfor subtle abnormalities. Chronic appearing bilateral subdural collections/hematomas [...] siphons. No acute calvarial fracture is identified. Maxillofacial:Significant motion artifact through the orbits, frontal, ethmoid and nasal bones severely degrades e valuation for fractures in these regions. Other than [...] normal in thickness. The bones are mildly osteopen ic. Vertebral bodies are normal in height without [...] the thoracic kyphosis. The alignment is otherwise mainta ined. The bones are mildly osteopenic. Vertebral bodies [...] its branch vessels. Bibasilar streaky and groundglass opacities.There are atherosclerotic calcifications of the coronary arteries. Small calcified granuloma in theright lung base.. Lumbar spine: Significant motion artifact limits evaluation for subtle fractures.There are postoperative findings of posterior spinal decompression at L3-L4. Dextrocurvature of thelumbar spine. Mild grade 1 retrolisthesis of L3 [...] Partially imaged screws in the left hemipelvis. IMPRESSION: Significant motion artifact limits evaluation for subtle bleeds and fractures. Within this limitation, the following assessment is made: 1.Subacute to chronic appearing bilateral subduralcollections/hematomas measuring up to 9 mm in maximal [...] report is dictated by Dante Mcclain MD (resident care associate) I, Kalyani Cortez MD have personally reviewed and interpreted this examination/study. > Interpreting Provider: Kalyani Cortez MD on 08/28/2024 6:[address] LUMBAR SPINE WO CONTRAST - T/L-spine trauma, Spine fracture Result Date: 08/28/2024 PROCEDURE: CT HEAD WO CONTRAST, CT LUMBAR SPINE WO CONTRAST, CT THORACIC SPINE WO CONTRAST, CT CERVICAL SPINE WO CONTRAST, CT FACIAL BONES WO CONTRAST, DATE/TIME OF EXAM: 08/27/2024 11:36 PM, [facility] [facility] INDICATION: Trauma ADDITIONAL CLINICAL INFORMATION: Ordering ProviderReason For Exam: Trauma. Technologist Note: None. Additional: None. EXAMINATION: 1.Computed tomography (CT) of the head without contrast 2.CT of the maxillofacial bones, orbits, and paranasal sinuseswithout contrast 3.CT of the cervical spine without [...] obscure abnormalities. Head: Significant motion artifact limits evaluationfor subtle abnormalities. Chronic appearing bilateral subdural collections/hematomas [...] siphons. No acute calvarial fracture is identified. Maxillofacial:Significant motion artifact through the orbits, frontal, ethmoid and nasal bones severely degrades e valuation for fractures in these regions. Other than [...] normal in thickness. The bones are mildly osteopen ic. Vertebral bodies are normal in height without [...] the thoracic kyphosis. The alignment is otherwise mainta ined. The bones are mildly osteopenic. Vertebral bodies [...] its branch vessels. Bibasilar streaky and groundglass opacities.There are atherosclerotic calcifications of the coronary arteries. Small calcified granuloma in theright lung base.. Lumbar spine: Significant motion artifact limits evaluation for subtle fractures.There are postoperative findings of posterior spinal decompression at L3-L4. Dextrocurvature of thelumbar spine. Mild grade 1 retrolisthesis of L3 [...] Partially imaged screws in the left hemipelvis. IMPRESSION: Significant motion artifact limits evaluation for subtle bleeds and fractures. Within this limitation, the following assessment is made: 1.Subacute to chronic appearing bilateral subduralcollections/hematomas measuring up to 9 mm in maximal [...] report is dictated by Dante Mcclain MD (resident care associate) I, Kalyani Cortez MD have personally reviewed and interpreted this examination/study. > Interpreting Provider: Kalyani Cortez MD on 08/28/2024 6:41 AM ASSESSMENT/PLAN #? fall in the setting of generalized weakness --fall precaution --orthostatics hypotension --tele monitor --PT/OT # Abnormal CT head CT head suggest chronic SDH vs hydroma seen by neuro at [facility] --seen by Neurosurgery at [facility] --no interventions or follow-up recommended that this time # superficial venous thrombus --continue Eliquis # dementia Alert to self at baseline --maintain fall precautions # anemia --hgb 8.9 --transfuse hemoglobin drops below 7 --monitor H&H # seizure --maintain seizure precaution --continue Keppra # depression --continue escitalopram # failure to thrive --nutrition consult Risk Factors for Mortality Present at Time of Admission Patient Diagnoses Present at the Time of Admission Anemia requiring further monitoring Hypoalbuminemia requiring further monitoring Malnutrition: Adult failure to thrive Anemia: Other Anemia Dementia Diet: NPO until passes swallow evaluation DVT Prophylaxis: On Eliquis Code status: DNR Case discussed with History of SCC (squamous cell carcinoma) of skin (POA: Yes) Fall (POA: Yes) SDH (subdural hematoma) (HCC) (POA: Yes) Dementia (HCC) (POA: Yes) Observed seizure-like activity (HCC) (POA: Yes) Suspected deep vein thrombosis (DVT) (POA: Yes) Failure to thrive in adult (POA: Unknown) Due to medical issues in the assessment and plan, continued hospitalization will be required. Kalee Juares APRN-FOAM TANK LAMINATOR 09/15/2024 12:50 PM ADVANCE DIRECTIVE has NO advanced directive - not interested in additional information Patient's Functional Baseline prior to admit: Alert to self Anticipated discharge date: Pending clinical course VALET documented in this encounter Consult Notes * Kristy Ibrahim MD - 09/21/2024 12:22 AM CSTAssociated Order(s): IP CONSULT TO PSYCHIATRY; IP CONSULT TO PSYCHIATRY Images from the original note were not included. PSYCHIATRY CONSULT NOTE: FOLLOW-UP EVALUATION Date/Time: 09/21/2024 1:21:09 AM Name: Frandy Alvares : 1935 Location of the patient: [facility] IP Consulting [facility] Clinician: Kristy Ibrahim Location of the clinician: [facility] Patient has had ongoing high agitation and aggressive behaviors. We will increase patient's Zyprexascheduled dose, and add ODT option for prns to help manage this prior to placement at [facility]. RISK ASSESSMENT Current Suicide Risk Elevated? low Current Violence Risk Elevated? No Issues with ability to care for self? Yes Does patient require psychiatric hospitalization? No Factors supporting discharge : Patient has primary neurocognitive disorder Working Diagnoses: F03.91 Unspecified dementia with behavioral disturbance Rule Out Diagnoses: CPT Codes: 75552 (OP/ED) / 26780 (IP) - High Complexity Follow-up PLAN Disposition: Change Zyprexa to 5mg BID and 5mg q6h prn for agitation ODT/IM Discharge type: Patient does not require psychiatric hospitalization. Disposition to be determined by primary team Safety planning: Patient understands and agrees with discharge plan, is aware that should symptoms worsen to return to the ED or call 911 Resource information to be provided by site: information about patient's diagnosis, treatment recommendations, including dosage and side effects of any prescribed medications Capacity: Does patient have a surrogate medical decision maker?: Unknown General Medical Decision-Making: Patient does not understand the medical reason why they are in thehospital, appears to have baseline cognitive deficits that are likely to affect medical decision making. Please note this evaluation does not comment on patient's overall competency, which is a legaldetermination. Patient would benefit from appointing a surrogate medical decision maker/medical POAfor medical decision-making. Please pursue legal means (such as guardianship) to do so where necessary. Patient DOES NOT have decision making capacity and is unlikely to ever regain this due to neurocognitive d/o. Observation level - Psychiatric 1:1 needed? Continue psych 1:1 OR Close observation per hospital protocol Work-up: Pharmacological: continue other medications as previously described Is patient psychotic? - No; Informed consent: Patient is unable to understand risks benefits of or consent to medications in their current mental state. Without medications patient will likely deteriorate further and possibly place themselves or others at risk. , patient's surrogate decision maker, has given informed consent for medications. Follow up needed while in the hospital? As needed for management of behavior or change in mental status Other: If questions arise about the psychiatric care of this patient, please call the [facility] to request a follow-up consult. Please do not contact me individually through the EMR chat as I am not regularly logged on to this system. The psychiatrist for the follow-up visit may be a different psychiatrist Discussed plan with onsite steam tank operator: Yes - Dr. Andre Fisher HISTORY This evaluation was conducted remotely with the assistance of onsite staff via HIPAA-compliant video call. Patient is unable to consent to telehealth visit in their current mental state. Without emergent psychiatry consult patient will likely deteriorate further and possibly place themselves or others at risk. Requested by: Andre Fisher MD Medical Record Reviewed/Appreciated: yes Patient status since last psychiatric visit : agitated; medicated for agitation; on a psychiatric 1:1 Interval History: Patient last seen by psych 09/17/2024. His seroquel was changed for zyprexa for agitation [id number]. He was severely agitated the next day requiring restraints. He quickly become agitated, aggressive, kicking yelling with minimal stimuli. Patient's son has gone to see some placement options but nodecision yet on his next spot. Restraints were removed 09/19. Later that evening he as attempting to punch the 1:1 sitter, was biting, yelling, agitated, unable to be redirected. He was noted to haveurine retention of >600mL at that time. Collateral Contacted No-- no acute safety issues identified. Current psychiatric and other clinically relevant medications: aricept 10mg HS; lexapro 10mg daily;zyprexa 5mg HS and 2.5mg IM q6h prn for agitation MENTAL STATUS EXAM Appearance and Attire: Normal, Poor eye contact, Unkempt, Thin, Older than age Psychomotor agitation: Psychomotor agitation, No tremor Attitude and behavior: Speech: Slow, Soft, Slurred Mood: Depressed, Irritable, Anxious Affect: Full range of affect, Labile, Intense, Hostile, Congruent, Appropriate, Irritable Thought Process: Linear, Logical, Tangential, Vague, Loose or idiosyncratic associations Thought content: unable to assess Perception: unable to assess Intelligence: Average Abstraction: [place], Perseverative, Poor reasoning Language: No abnormality Orientation: Oriented to person, Disoriented to place, Disoriented to time, Disoriented to situation Sensorium: Distractible Knowledge: Moderate impairment Memory: Immediate recall intact, Impaired to Recent recall (3 min), Remote recall intact, Impaired to Executive function Insight: Lack of awareness of problems, Failure to recognize benefits of treatment, Lack of motivation to change health risk behaviors, Severe impairment Judgment: Severe impairment, Impaired in interactions with others, Impaired in response and decision making, Impaired in responses to current situation and behavior, Impaired in self care, Impaired in treatment compliance Kristy Ibrahim MD Psychiatrist, [facility] * Sae Garcia MD - 09/17/2024 7:26 PM CSTAssociated Order(s): IP CONSULT TO PSYCHIATRY PSYCHIATRY CONSULT NOTE: INITIAL EVALUATION Date/Time: 09/17/2024 8:23:31 PM Name: Frandy Alvares : 1935 Location of the patient: [facility] IP Consulting Array Clinician: Sae Garcia Location of the clinician: [place] Length of Consult: 45 mts SUMMARY 89-year-old male, with history of dementia, with no current excessive drug use, no history of self-harming/suicidal behavior/violent behavior, no past psychiatric hospitalizations, admitted to medicine referred to psychiatry. Pt was having significant agitation and was restless. He was aggressive towards staff and needed emergency medications. He is taking Seroquel at home and ocmpliance not knowbut had falls. Will stop Seroquel as it could have increase risk of falls and switch to Zyprexa 5mgqhs to help with agitation.Patient denies SI/HI, does not display signs or symptoms of serious psychosis, has primary neurocognitive disorder. Patient does not appear to be at acute risk to self or others due to psychiatric illness or to require inpatient psychiatric hospitalization. Working Diagnoses: F03.91 Unspecified dementia with behavioral disturbance Rule Out Diagnoses: CPT Codes: 46767 - Psychiatric Diagnostic Evaluation with Medical Services PLAN Disposition: patient medically admitted-psychiatric dispo to be determined Observation level - Psychiatric 1:1 needed? Continue psych 1:1 Work-up: Pharmacological: olanzapine 2.5mg Q6h PO/IM PRN agitation, check EKG - QTc < 500ms, avoid concomitant use of benzo within 1 hour of IM olanzapine Stop Seroquel. Start Zyprexa, zydis 5mg qhs Is patient psychotic? - undetermined; Informed consent: Patient is unable to understand risks benefits of or consent to above recommendedpsychiatric medications in their current mental state. No surrogate decision maker is available. Without recommended medication patient will likely deteriorate further and possibly place themselves or others at risk. Patient is not legally compelled to take recommended medication at this time. Follow up needed while in the hospital? Q24h Other: GENERAL GERIATRIC PRECAUTIONS: frequent re-orientation, family contact when possible, maximize uninterrupted periods of sleep, limit staff changes as feasible. Provide patient with assistive devices ie hearing aids/glasses to reduce confusion and disorientation. Dementia/Delirium: AVOID BENZODIAZEPINES, ANTICHOLINERGICS, ANTIHISTAMINES, AND OTHER SEDATING MEDICATIONS, which may PRECIPITATE and worsen delirium Discussed plan with onsite steam tank operator: Yes - Preston LUNDY, WILL follow up HISTORY This evaluation was conducted remotely with the assistance of onsite staff via HIPAA-compliant video call. Patient is unable to consent to telehealth visit in their current mental state. Without emergent psychiatry consult patient will likely deteriorate further and possibly place themselves or others at risk. Requested by: Andre Fisher MD Sources of information: Patient, medical record History of Present Illness: 89-year-old male, living with family, single, retired, with history of dementia, with no current excessive drug use, no history of self-harming/suicidal behavior/violent behavior, no past psychiatrichospitalizations, admitted to medicine referred to psychiatry. On psychiatric evaluation, patient is disorganized, unable to give clear history. Pt was having agitation during interview. He was restless and tried to hit staff. He was given emergency Zyprexa IM injection. 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 . Admitted from home, family not able to take care of him. Has seroquel in home meds.. Collateral Contacted No-- none available. PSYCHIATRIC REVIEW OF SYSTEMS (symptoms in past two weeks) Pertinent Positives: disordered thinking/confusion/impulsivity Pertinent Negatives: no depressed mood/no anhedonia/no hopelessness/no negative ruminations/no insomnia/no hypersomnia/no poor appetite/no anergia/no self- injurious behavior/no homicidal ideation/no irritability/no aggressive behavior/no agitation/no auditory hallucinations/no visual hallucinations/no command hallucinations/no paranoia/no ideas of reference/no anxiety/no panic attacks/no tension/no somatic preoccupations/no hypervigilance/no flashbacks/no nightmares/no elevated mood/no mood swings/no increased goal-directed activity/no decreased need for sleep PSYCHIATRIC HISTORY Past Psychiatric Diagnoses/Problems: dementia Psychiatric Treatment: Hospitalizations: no past psychiatric hospitalizations Other Past treatment: medication management Current treatment: medication management; difficulty accessing treatment Drug/Alcohol History Current excessive drug/alcohol use: none Past excessive drug/alcohol use: none Drug/alcohol use comment: Treatment: none Withdrawal symptoms: none UDS results: BAL results: Active withdrawal Protocol: Stressors: neurocognitive dysfunction Trauma: none Family Psychiatric History: unknown HEALTH HISTORY Medical Problems: cancer, Venous Thrombosis Is patient linked with PCP? yes Psychiatric and other clinically relevant medications: Seroquel 25mg qday, and 12.5mg qhs Allergies/Adverse Medication Reactions: Ativan [lorazepam] and Epinephrine Physical Findings: no clinically significant changes in vital signs, anemia DEMOGRAPHICS/SOCIAL HISTORY Gender: male Living Situation: living with family Relationship Status: single Education: unknown Employment: retired Social Support Network: Legal History: none Special Considerations: RISK EVALUATION Suicidality/self-injury: no history of suicidal/self-harming behavior Primary Suicide Screening (PSS-3) 1. In the past two weeks, have you felt down, depressed, or hopeless? NO 2. In the past two weeks, have you had thoughts of killing yourself? NO 3. In your lifetime, have you ever attempted to kill yourself? NO 3a. Within the past 6 months? NO ESS-6 Secondary Screen ( If #2 is yes or #3a is yes within the past 6 months, then complete secondary screen) 1. Positive on PSS-3 questions 2 & 3 - active suicidal ideation with a past attempt? Screen notapplicable 2. Have you been thinking about how you might kill yourself? Screen not applicable 3. Have you had some intention of acting on your thoughts? Screen not applicable 4. Lifetime psychiatric hospitalization? Screen not applicable 5. Has drinking or substance abuse ever been a problem for you? Screen not applicable 6. Current irritability, agitation, or aggression? Screen not applicable PSS-3/ESS-6 Secondary Screen Scoring: Low Risk-PSS3 screen negative PSS-3/ESS-6 Scoring Interpretation Legend PSS-3 screen incomplete [Blank PSS-3 questions #2 OR #3a] PSS-3 screen unable to assess [Unable to Assess responses on PSS-3 questions #2 AND #3a] Mild [No current attempt AND No suicide plan or intent AND Score (0-2)] Moderate [No current attempt AND Active suicidal ideation with plan or intent (not both) OR Score (3-4)] Severe [Current attempt OR Suicide plan and intent OR Score (5-6)] HI/Violence/Property Destruction: no history of violent/aggressive behavior Access to Firearms: none Grave disability/Poor self-care: Psychosis: undetermined Protective Factors: High Utilization Criteria: Signs of Secondary Gain: MENTAL STATUS EXAM Appearance and Attire: Disheveled Psychomotor agitation: Psychomotor agitation Attitude and behavior: Hostile Speech: Paucity of speech Mood: Dysthymic, Labile Affect: Thought Process: Tangential, Vague Thought content: No suicidal ideation, No homicidal ideation, No paranoia, No delusions Perception: unable to assess Intelligence: unable to assess Abstraction: unable to assess Language: unable to assess Orientation: unable to assess Sensorium: Distractible Knowledge: unable to assess Memory: unable to assess Insight: Severe impairment Judgment: Severe impairment SUMMARY RISK ASSESSMENT Current Suicide Risk Elevated? PSS-3/ESS-6 Scoring: Low Risk-PSS3 screen negative Current Violence Risk Elevated? Yes Issues with ability to care for self. Yes, due to dementia SAFE-T Risk Factors Suicidal Behavior: ? History of prior suicide attempts ? Aborted suicide attempt ? History of prior SI ? Self-injurious behavior Current/Past Psychiatric Disorders: ?Mood disorders ? Psychotic Disorders ? History of inpatient hospitalization ? ADHD ? TBI ? PTSD ? Cluster B personality disorders ? Conduct disorders ? Medical comorbidity ? Recent onset of illness Current/Past Substance Use: ? Active ETOH/Opiates/Other Substance abuse ? History of ETOH/Opiates/Other Substance abuse ? Active withdrawal or risk of withdrawal from ETOH/Opiate [place]ie Symptoms: ? Anhedonia ? Impulsivity ? Hopelessness ? Anxiety/Panic ? Global insomnia (difficulty falling asleep, maintaining sleep, or falling back to sleep) ? Command Hallucinations Family History Risk Factors: ? Suicide Attempts ? Psychiatric disorders requiring hospitalization ? Suicidal Behavior Precipitants/Stressors/Interpersonal/Triggers: ? Events leading to humiliation, shame, or despair ? Family turmoil/chaos ? Chronic physical pain or other acute medical problems ? Perceived burden on others ? Ongoing medical illness ? History of physical or sexual abuse ? Legal problems ? Intoxication ? Social isolation ? Inadequate social support Treatment: ? Medication management ? Therapy ? Satisfied with current treatment ? Recent discharge from a psychiatric hospital ? Recent change in provider or treatment ? Access to firearms/ammunition Protective Factors Internal: ? Ability to cope with stress ? Identifies reasons for living ? Frustration tolerance ? Jain beliefs ? Fear of or the actual act of killing self External: ? Cultural factors against suicide ? Beloved pets ? Engaged in work or school ? Spiritual and/or moral attitudes against suicide ? Supportive social network of family or friends ? Responsibility to children/others ? Positive therapeutic relationships VALET * Neal Victoria, BHARTI/JAMES - 09/16/2024 1:44 PM CSTAssociated Order(s): IP CONSULT TO NUTRITIONAL SERV BRIEF SYNOPSIS: Nutrition Risk Identified and meets criteria for Severe Protein Calorie malnutrition. Malnutrition Etiology Malnutrition in the context of: chronic disease (09/16/24 1300) Malnutrition Severity: Severe Protein Calorie (09/16/24 1300) Dietary Intake: Weight Change: Weight change Unintended weight change: Severe weight loss Weight Loss: > 7.5% x 3 months (9.7% body weight in < 4 months, since 05/23/24) Fat Loss: Loss of Subcutaneous Fat Orbital: Severe Buccal: Severe Muscle Loss: Muscle Loss Temples (Temporalis Muscle): Severe Clavicles (Pectoralis & Deltoids): Severe Thigh (Quadriceps): Moderate Calf (Gastrocnemius): Moderate Nutrition Plan: Current diet order: Easy to Chew/Mechanical Soft Current supplement order: Ensure HP BID Recommendation to Physician: Consider documentation of severe protein calorie malnutrition and add to Problem list. Discharge Needs: Nutritional Supplement at Discharge: Yes CLINICAL NUTRITION ASSESSMENT: RD consulted for FTT. Patient also screened for history of malnutrition. Noted patient with dementia and alert to self at baseline, spoke briefly with patient but gathered information for assessment from EMR as no family present. Patient NPO until seen by NEONATAL NURSE this AM, recommending easy to chew/soft diet with thin liquids. Patient current easy to chew/mechanical soft diet. P.O.intake average of 25% x 2 meals documented at this time. Patient reported that he has not been eating well lately but was unable to provide more details. No nausea/vomiting noted at this time, did note 3 loose/soft bowel movements documented yesterday per EMR. Reviewed documented weight history, noted limited weight history in past 12 months. Noted 160# estimated on 08/27/24, 160# via bed scale on 08/28/24. Weight this admission of 157# via bed scale on 09/15/24. Reviewed Care Everywhere documentation for additional weight history. Noted 177# at office visit on 08/22/23, 180# at office visit on 01/19/24, 171# at office visit on 04/18/24, and 174# at office visit on 05/23/24. Noted weights trending down over past year through various office visits. Weight loss of 17# (9.7% body weight) since 05/23/24 office visit which is significant for timeframe. Noted patient identified to meet criteria for severe PCM at [facility] during admission from 08/27/24-09/06/24 due to >7.5% weight loss in 3 months, and severe subcutaneous fat/muscle loss. Conducted NFPE (nutrition focused physical exam) to evaluate for malnutrition. Patient with severe subcutaneous fat loss, moderate-severe muscle loss. Patient meets criteria for chronic severe PCM due to weight loss, severe subcutaneous fat loss, and moderate-severe muscle loss. Noted Ensure HP BID ordered at this time, 100% intake documented of oralnutrition supplement at lunch today per flowsheets. Will continue Ensure HP BID at this time. Ensure High Protein (160 calories ,16 grams protein and 19 grams of carb per 8 oz serving). Patient receiving easy to chew/mechanical soft diet. Reviewed labs. H/H low, elevated BUN/Creatinine. Reviewed medications. Last BM 09/15. Med/Surg History and Clinical Diagnoses: 89 year old male with a PMH significant for dementia alertto self at baseline, anemia, squamous cell carcinoma, recent admission for MSSA UTI that presented to OSH (U) due to altered mental status. Family was concerned about weakness and about their ability to provide care for the patient. Per chart review recent multiple falls Height: 170.2 cm (5' 7 ) BMI: Body mass index is 24.67 kg/m??. BMI Range: Normal IBW/lb (Calculated) Male: 148 Recent Weights/Methods 08/27/2024 2251 08/28/2024 1656 09/07/2024 1624 09/08/2024 0200 09/15/2024 1011 Weight: 72.6 kg (160 lb) 72.6 kg (160 lb) 68.4 kg (150 lb 12.7 oz) 68 kg (150 lb) 71.4 kg (157 lb 8oz) Weight Method : Estimated Bed scale -- Other (Comment) Bed scale UBW: 177-180# per office visits in 08/2023 and 01/2024 Unintentional weight change: Weight loss of 17# (9.7% body weight) since 05/23/24 office visit whichis significant for timeframe. Unintended weight change: Severe weight loss PO INTAKE Current diet order: Easy to Chew/Mechanical Soft Nutrition recommendation: agree with current nutrition order Food Allergies: No known food allergies Last % Meal Taken: 50 % (09/16/241336) 48 hr PO INTAKE % Meal Taken Av % Min: 0 % Max: 50 % Current supplement order: Ensure HP BID Supplement(s) Consumed- Last 48 hours Date/Time Dietary Supplement Name Liquid Supplement Consumed (mL) Non-Liquid Supplement Consumed (%) 09/16/241336 Ensure High Protein 240 ML -- Chewing/Swallowing: Chewing Problems GI Concerns: None (3 soft/loose stools documented on 09/15) Stools: Stools (# of stools): 1 (09/15/242241) Stool Appearance : Soft (09/15/242241) Stool Amount: Large (09/15/242241) Skin/Wound: WDL Estimated Needs: KCAL: 6076-4608 (30-33 kcal/kg BW) Protein (g): 86-107 (1.2-1.5 g/kg BW) Fluid (ml): 1 ml/kcal Needs based on: Kcal/kg- (Comment) (71.4 kg BW) Recommended Access Route: PO Labs: Recent Labs Component Name 09/16/24 0304 09/15/24 1120 09/14/24 1334 09/11/24202709/10/24 2127 09/08/24 0545 09/07/24 1714 SODIUM 137 137 - - - - - NA - - 137 136 136 - 140 POTASSIUM 4.1 4.7 5.1* 4.1 4.0 - 4.4 CHLORIDE 107 106 - - - - - CO2 24 25 22 25 24 - 23 BUN 30* 32* 29* 20 19 - 26 CREATININE 1.38* 1.71* 1.04 0.95 0.92 - 1.00 GLUCOSE 94 101* 96 111* 109* - 91 CALCIUM 8.4 8.4 8.5 8.2* 8.2* - 8.8 ALT - 13 15 - - - 30 ALKPHOS - 122 130 - - - 134 AST - 25 28 - - - 32 TBIL - 0.4 - - - - - TPROT - 5.7* - - - - - EGFR 49* 38* 69* 77* 80* - 72* ALBUMIN - 2.8* - - - - - - = values in this interval not displayed. Recent Labs Component Name 09/11/24202709/10/247 09/09/24 2149 PHOS 3.4 2.4* 2.8 Recent Labs Component Name 09/08/24 0545 08/29/24 0448 MAGNESIUM 1.8 1.8 Recent Labs Component Name 09/16/24 0304 09/15/24 1256 09/14/24 1334 HGB 8.6* 8.9* 8.9* HCT 26.1* 27.3* 26.8* No results for input(s): HGBA1C in the last 83636 hours.Patient Vitals for the past 30 hrs: Glucose Bedside (mg/dL) 09/16/24 1212 112 mg/dL 09/16/24 0610 89 mg/dL 09/16/24 0024 94 mg/dL 09/15/242028 97 mg/dL MEDICATIONS FOR CURRENT ENCOUNTER: SCHEDULED MEDICATIONS: 0.9% NaCl injection 3 mL, Intracatheter, q8h apixaban (Eliquis) tablet 2.5 mg, Oral, BID escitalopram (Lexapro) tablet 10 mg, Oral, QDAY levETIRAcetam (Keppra) injection 500 mg, Intravenous, q12h QUEtiapine (SEROquel) tablet 12.5 mg, Oral, AT BEDTIME QUEtiapine (SEROquel) tablet 25 mg, Oral, QDAY [COMPLETED] OLANZapine (ZyPREXA) injection 10 mg, Intramuscular, Once CONTINUOUS MEDICATIONS: 0.9% NaCl infusion, Intravenous, Continuous PRN MEDICATIONS: Or Or Or 0.9% NaCl injection 1-10 mL, Intracatheter, PRN acetaminophen (Tylenol) tablet 650 mg, Oral, q4h PRN dextrose 10 % IV bolus, Intravenous, PRN dextrose 10 % IV bolus, Intravenous, PRN glucagon (Glucagen) injection 1 mg, Subcutaneous, PRN glucose (Diabetic Use) oral gel, Oral, PRN ondansetron (disintegrating) (Zofran ODT) tablet 4 mg, Oral, q6h PRN ondansetron (Zofran) injection 4 mg, Intravenous, q6h PRN polyethylene glycol 3350 (Miralax) packet 17 g, Oral, QDAY PRN Nutrition Diagnostic Statement: Unintended weight loss related to:: inadequate energy intake as evidenced by:: weight loss;loss of subcutaneous fat and muscle mass Nutrition Diagnostic Statement Progress: New diagnostic statement established Nutrition Intervention: Meals and snacks:;Medical Food Supplements: Education needed: Supplements Education Provided: Not appropriate (09/16/24 1300) Monitoring: PO intake Acceptance of oral nutrition supplement and intake Weights Labs GI function/bowel movements Skin Monitor per nutrition guidelines. Risk Level: High;At Risk for Malnutrition Evaluation: Nutrition Goal: Total intake will meet estimated nutrient needs Nutrition Goal Timeframe: Ongoing Nutrition Goal Progress: New goal established Neal Kenney MS, RD/LD As[employer] [address] * eVronica Owen, HOTEL OPERATION MANAGER - 09/16/2024 12:58 PM CSTAssociated Order(s): IP CONSULT TO HAND BOOTMAKER SOCIAL WORK CONSULT NOTE Reason for Consult: from RN. Possible placement in facility needed. [facility] 08/27/24-09/06/24 d/c home [facility] 09/07/24-09/12/24 d/c home [facility] 09/14/24 (family unable to manage at home any longer) and transferred to [address] on09/15/24. 09/16 [facility] psych consult ordered. 89 year old male. Medicare and [place] insurances. Arrived at [facility] due to the following: PMH significant for dementia alert to self at baseline, anemia, squamous cell carcinoma, superficial venous thrombus on Eliquis, recent admission for MSSA UTI that presented to the hospital (U)due to altered mental status. Family was concerned about weakness and about their ability to provide care for the patient. Per chart review recent multiple falls. 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 Son has reported patient at home intermittently passing out and that agitation has become too much to handle at home. Seeking assistance with placement. A&Ox 1, unsteady gait. Dx: failure to thrive, dementia with agitation at times, A&Ox 1, falls, high fall risk, subdural hematoma, delirium, anemia, squamous cell carcinoma, UTI, syncope, incontinent b/b, weak and debilitated. Discharge Plan Disposition: TBD. Per MDR today, PT/OT will eval once appropriate. Not appropriate yet, this morning in 3 point restraints due to agitation/dementia. [facility] psych has been consulted and awaiting results. Meds are being adjusted. More than likely patient will need LTC placement. Upon reviewing previous notes, when recetnly at [facility], son was interested in possible SNF at [facility]: [phone] (f) [phone] but unclear if any referral was ever sent. Does not appear patient has [place] Medicaid. ST did eval today and recommending mechanical soft diet with thin liquids. LAURENCE called [facility] and spoke with Ariadne. [phone]. They suggested I maybe send referrals to [facility]. . Eva/dylan or Lamont Pearce/Russian Teacher email: [email or web address] And to [facility]. . Lona or Ariadne/dylan. LAURENCE called both places and emailed Cobb the referral and faxed [place] the referral. LAURENCE also sent referrals to: [facility]: [phone] (f) [phone] [facility]: [phone] (F) [phone] LAURENCE updated team that patient will need a capacity eval at the req of son. He needs it to show to the courts to activate the POA re: trust. Transportation: ambulance: failure to thrive, dementia with agitation at times, A&Ox 1, falls, high fall risk, subdural hematoma, delirium, anemia, squamous cell carcinoma, UTI, syncope, incontinent b/b, weak and debilitated. Anticipated Discharge Date: NOT medically ready Emergency Contacts: Extended Emergency Contact Information Primary Emergency Contact: Frandy Alvares Jr Mobile Relation: Son Secondary Emergency Contact: Shayy Hay Mobile Relation: Friend *SW called Frandy Dodge and updated demographics. Shayy is a family friend/caregiver who helped take care of patients at the end of her life and then dad hired Shayy as his nurse practitioner physicians assistant to help him athome. So she has been with them for quite some time. Frandy Dodge is main contact. He tried to have dad live with him but that didn't last long. The address we have listed for patient is the correct (patient's address) where he currently lives. Has 24/04 care thru [facility]/Jhonny.One worker just quite the other day because of dad's agitation. Son has done all he can to try and keep dad at home as long as possible; but his dementia is so progressed, son just can no longer handle things at home. I explained SNF into LTC vs LTC. He did say patient would be private pay and would not be eligible for medicaid. 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 Patient had 2 older sisters who also developed dementia with agitation and they have since passed. He stated I can reach out to [facility] re: possible places for dad to go to from [address]. Son said first choice is [facility]. I told him another high rated facility is [facility] and he was fine with that. SW empathized with son and all that he has been trying to do for his father. We will assist however we can. Comments: Veronica Owen LCSW 09/16/2024 2:59 PM Extensions: [phone] or [phone] VALET documented in this encounter Plan of Treatment Upcoming Encounters Date Type Department Care Team (Late st Contact Info) Description 10/09/2024 11:30 AM [facility] Office Visit [facility] - Dermatology [address] [place] [address], [place] [address] Katharine Bar MD [address] [facility] [address]L [place] [address] 11/19/2024 8:30 AM [facility] Office Visit [facility] - Dermatology [address] [place] [address], [place] [address] Patricia Jarvis MD [address] [place] [address] 11/22/2024 8:00 AM [facility] Office Visit [facility] - Neurology [address] [place] [address], [place] [phone] Chay Nieves MD [address] [place] [address] documented as of this encounter Procedures Procedure Name Priority Date/Time Associated Diagnosis Comments GLUCOSE - POINT OF CARE Routine 09/19/2024 11:59 AM [facility] GLUCOSE - POINT OF CARE Routine 09/19/2024 8:12 AM [facility] GLUCOSE - POINT OF CARE Routine 09/18/2024 5:53 AM [facility] GLUCOSE - POINT OF CARE Routine 09/17/2024 11:57 PM [facility] GLUCOSE - POINT OF CARE Routine 09/17/2024 7:33 PM [facility] GLUCOSE - POINT OF CARE Routine 09/17/2024 12:01 PM [facility] GLUCOSE - POINT OF CARE Routine 09/17/2024 5:49 AM [facility] RENAL FUNCTION PANEL AM Draw 09/17/2024 4:57 AM [facility] GLUCOSE - POINT OF CARE Routine 09/17/2024 12:24 AM [facility] [place] GLUCOSE - POINT OF CARE Routine 09/16/2024 7:24 PM [facility] GLUCOSE - POINT OF CARE Routine 09/16/2024 12:10 PM [facility] GLUCOSE - POINT OF CARE Routine 09/16/2024 6:08 AM [facility] CBC W/O DIFFERENTIAL Routine 09/16/2024 3:04 AM [facility] BASIC METABOLIC PANEL (CALCIUM TOTAL) Routine 09/16/2024 3:04 AM [facility] GLUCOSE - POINT OF CARE Routine 09/16/2024 12:29 AM [facility] GLUCOSE - POINT OF CARE Routine 09/15/2024 8:29 PM [facility] CBC W AUTO DIFFERENTIAL STAT 09/15/2024 12:56 PM [facility] OT EVAL AND TREAT Routine 09/15/2024 12: 46 PM [facility] PT EVAL AND TREAT Routine 09/15/2024 12: 46 PM [facility] COMPREHENSIVE METABOLIC PANEL STAT 09/15/2024 11:20 AM [facility] documented in this encounter Results * (ABNORMAL) GLUCOSE - POINT OF CARE (09/19/2024 11:59 AM [facility]) [facility] Glucose WB/POC 107(H) 70 - 99 mg/dL 09/30/2024 7:07 AM [place] [facility] Specimen Type Cap Fingerstick 2023 7:07 AM [place] [facility] Blood BLOOD SPECIMEN / Unknown 09/19/2024 11:59 AM [facility] 09/30/2024 7:07 AM [facility] Andre Fisher MD LAB - POINT OF CARE ORDERABLES [facility] [address] [place] [address] * GLUCOSE - POINT OF CARE (09/19/2024 8:12 AM [facility]) Glucose WB/POC 96 70 - 99 mg/dL 09/30/2024 7:06 AM [place] [facility] Specimen Type Cap Fingerstick 2023 7:06 AM [place] [facility] Blood BLOOD SPECIMEN / Unknown 09/19/2024 8:12 AM [facility] 09/30/2024 7:06 AM [facility] Andre Fisher MD LAB - POINT OF CARE ORDERABLES Performing Organization Address City/[facility]/ZIP Co de Phone Number [facility] [address] [place] [phone] * GLUCOSE - POINT OF CARE (09/18/2024 5:53 AM [facility]) Glucose WB/POC 97 70 - 99 mg/dL 09/18/2024 6:28 AM [place] [facility] Specimen Type Arterial 09/18/2024 6:28 AM [place] [facility] Blood BLOOD SPECIMEN / Unknown 09/18/2024 5:53 AM [facility] 09/18/2024 6:28 AM [facility] Andre Fisher MD LAB - POINT OF CARE ORDERABLES Performing Organization Address [facility] Co de Phone Number [facility] [address] [place] [phone] * (ABNORMAL) GLUCOSE - POINT OF CARE (09/17/2024 11:57 PM [facility]) Glucose WB/POC 121(H) 70 - 99 mg/dL 09/18/2024 6:29 AM [place] [facility] Specimen Type Arterial 09/18/2024 6:29 AM [place] [facility] Blood BLOOD SPECIMEN / Unknown 09/17/2024 11:57 PM [facility] 09/18/2024 6:29 AM [place] Andre Fisher MD LAB - POINT OF CARE ORDERABLES [facility] [address] [place] [id number] * (ABNORMAL) GLUCOSE - POINT OF CARE (09/17/2024 7:33 PM [facility] [place]) Glucose WB/POC 128(H) 70 - 99 mg/dL 09/18/2024 6:30 AM [place] [facility] Specimen Type Arterial 09/18/2024 6:30 AM [place] [facility] Blood BLOOD SPECIMEN / Unknown 09/17/2024 7:33 PM [facility] 09/18/2024 6:30 AM [facility] Andre Fisher MD LAB - POINT OF CARE ORDERABLES Performing Organization Address City/[facility]/ZIP Co de Phone Number [facility] [address] [place] [address] * (ABNORMAL) GLUCOSE - POINT OF CARE (09/17/2024 12:01 PM [facility]) Glucose WB/POC 106(H) 70 - 99 mg/dL 09/18/2024 6:31 AM [place] [facility] Specimen Type Cap Fingerstick 2023 6:31 AM [place] [facility] Blood BLOOD SPECIMEN / Unknown 09/17/2024 12:01 PM [facility] 09/18/2024 6:31 AM [facility] Andre Fisher MD LAB - POINT OF CARE ORDERABLES Performing Organization Address City/[facility]/ZIP Co de Phone Number [facility] [address] [place] [address] * GLUCOSE - POINT OF CARE (09/17/2024 5:49 AM [facility]) Glucose WB/POC 96 70 - 99 mg/dL 09/17/2024 11:08 AM [place] [facility] Specimen Type Arterial 09/17/2024 11:08 AM [place] [facility] Blood BLOOD SPECIMEN / Unknown 09/17/2024 5:49 AM [facility] 09/17/2024 11:08 AM [facility] Melissa Alvarez MD LAB - POINT OF CARE ORDERABLES [facility] [address] [place] [address] * (ABNORMAL) RENAL FUNCTION PANEL (09/17/2024 4:57 AM [facility]) [facility] Signature Glucose 87 70 - 99 mg/dL 09/17/2024 5:51 AM [facility] Sodium 140 136 - 145 mmol/L 09/17/2024 5:51 AM [facility] Potassium 4.1 3.5 - 5.1 mmol/L 09/17/2024 5:51 AM [facility] Chloride 110(H) 98 - 107 mmol/L 09/17/2024 5:51 AM [facility] CO2 22 22 - 29 mmol/L 09/17/2024 5:51 AM [facility] Calcium 8.8 8.4 - 10.4 mg/dL 09/17/2024 5:51 AM [facility] Anion Gap 8 6 - 16 mmol/L 09/17/2024 5:51 AM [facility] BUN 26 7 - 26 mg/dL 09/17/2024 5:51 AM [facility] Creatinine 0.87 0.72 - 1.25 mg/dL 09/17/2024 5:51 AM [facility] Albumin 3.0(L) 3.4 - 5.0 gm/dL 09/17/2024 5:51 AM [facility] Phosphorus 3.1 2.5 - 4.5 mg/dL 09/17/2024 5:51 AM [facility] eGFR by CKD-EPI 83(L) >=90 mL/min/1.7 3 m2 09/17/2024 5:51 AM [facility] Blood BLOOD SPECIMEN / Unknown Lab Venipuncture / Unknown 09/17/2024 4:57 AM [facility] 09/17/2024 5:23 AM [facility] Melissa Alvarez MD LAB - CHEMISTRY LISANDRO HUGHES [facility] [address] [place] [address] * (ABNORMAL) GLUCOSE - POINT OF CARE (09/17/2024 12:24 AM [facility]) Glucose WB/POC 101(H) 70 - 99 mg/dL 09/17/2024 7:08 AM [place] [facility] Specimen Type Arterial 09/17/2024 7:08 AM [place] [facility] Blood BLOOD SPECIMEN / Unknown 09/17/2024 12:24 AM [facility] 09/17/2024 7:08 AM [facility] Melissa Alvarez MD LAB - POINT OF CARE ORDERABLES [facility] [address] [place] [phone] * (ABNORMAL) GLUCOSE - POINT OF CARE (09/16/2024 7:24 PM [facility]) Glucose WB/POC 110(H) 70 - 99 mg/dL 09/17/2024 7:09 AM [place] [facility] Specimen Type Arterial 09/17/2024 7:09 AM [place] [facility] Blood BLOOD SPECIMEN / Unknown 09/16/2024 7:24 PM [facility] 09/17/2024 7:09 AM [facility] Melissa Alvarez MD LAB - POINT OF CARE ORDERABLES Performing Organization Address [facility] Co de Phone Number [facility] [address] [place] [phone] * (ABNORMAL) GLUCOSE - POINT OF CARE (09/16/2024 12:10 PM [facility]) Glucose WB/POC 112(H) 70 - 99 mg/dL 09/17/2024 7:10 AM [place] [facility] Specimen Type Cap Fingerstick 2023 7:10 AM [place] [facility] Blood BLOOD SPECIMEN / Unknown 09/16/2024 12:10 PM [facility] 09/17/2024 7:10 AM [facility] Melissa Alvarez MD LAB - POINT OF CARE ORDERABLES Performing Organization Address City/[facility]/ZIP Co de Phone Number [facility] [address] [place] [address] * GLUCOSE - POINT OF CARE (09/16/2024 6:08 AM [facility]) Pathologist [facility] Glucose WB/POC 89 70 - 99 mg/dL 09/17/2024 12:30 AM [facility] Specimen Type Cap Fingerstick 2023 12:30 AM [facility] Blood BLOOD SPECIMEN / Unknown 09/16/2024 6:08 AM [facility] 09/17/2024 12:30 AM [facility] Melissa Alvarez MD LAB - POINT OF CARE ORDERABLES Performing Organization Address City/State/[facility] Co de Phone Number [facility] [address] [place] [address] * (ABNORMAL) CBC W/O DIFFERENTIAL (09/16/2024 3:04 AM [facility]) Pathologist [facility] WBC 10.1 4.0 - 10.7 x10E9/L 09/16/2024 4:05 AM [facility] RBC Count 2.76(L) 4.30 - 5.80 x10E12/L 09/16/2024 4:05 AM [facility] Hemoglobin 8.6(L) 13.3 - 17.5 g/dL 09/16/2024 4:05 AM [facility] Hematocrit 26.1(L) 38.7 - 51.1 % 09/16/2024 4:05 AM [facility] MCV 94.6 80.0 - 98.0 fL 09/16/2024 4:05 AM [facility] MCH 31.2 26.7 - 33.6 pg 09/16/2024 4:05 AM [facility] MCHC 33.0 31.7 - 36.3 g/dL 09/16/2024 4:05 AM [facility] RDW-CV 13.9 11.3 - 14.8 % 09/16/2024 4:05 AM [facility] Platelet Count 315 150 - 420 x10E9/L 09/16/2024 4:05 AM [facility] MPV 9.6 7.8 - 11.4 fL 09/16/2024 4:05 AM [facility] Blood BLOOD SPECIMEN / Unknown Lab Venipuncture / Unknown 09/16/2024 3:04 AM [facility] 09/16/2024 3:47 AM [facility] [facility] Kalee Juares APRN-RICHARD LAB - HEMATO LOGY ORDERABLES Performing Organization Address City/[facility]/ZIP Co de Phone Number [facility] [address] [place], [place] [id number] * (ABNORMAL) BASIC METABOLIC PANEL (CALCIUM TOTAL) (09/16/2024 3:04 AM [facility]) [facility] Glucose 94 70 - 99 mg/dL 09/16/2024 4:17 AM [facility] Sodium 137 136 - 145 mmol/L 09/16/2024 4:17 AM [facility] Potassium 4.1 3.5 - 5.1 mmol/L 09/16/2024 4:17 AM [facility] Chloride 107 98 - 107 mmol/L 09/16/2024 4:17 AM [facility] CO2 24 22 - 29 mmol/L 09/16/2024 4:17 AM [facility] Calcium 8.4 8.4 - 10.4 mg/dL 09/16/2024 4:17 AM [facility] Anion Gap 6 6 - 16 mmol/L 09/16/2024 4:17 AM [facility] BUN 30(H) 7 - 26 mg/dL 09/16/2024 4:17 AM [facility] Creatinine 1.38(H) 0.72 - 1.25 mg/dL 09/16/2024 4:17 AM [facility] eGFR by CKD-EPI 49(L) >=90 mL/min/1.7 3 m2 09/16/2024 4:17 AM [facility] Blood BLOOD SPECIMEN / Unknown Lab Venipuncture / Unknown 09/16/2024 3:04 AM [facility] 09/16/2024 3:47 AM [place] Kalee PENNFOAM TANK LAMINATOR LAB - CHEMIS TRY ORDERABLES Performing Organization Address City/[facility]/ZIP Co de Phone Number [facility] [address] [place] [phone] * GLUCOSE - POINT OF CARE (09/16/2024 12:29 AM [facility] [place]) Glucose WB/POC 94 70 - 99 mg/dL 09/16/2024 7:16 AM [facility] [facility] Specimen Type Cap Fingerstick 2023 7:16 AM [place] [facility] Blood BLOOD SPECIMEN / Unknown 09/16/2024 12:29 AM [facility] 09/16/2024 7:16 AM [place] Melissa Alvarez MD LAB - POINT OF CARE ORDERABLES Performing Organization Address [facility]/ZIP Co de Phone Number [facility] [address] [place] [phone] * GLUCOSE - POINT OF CARE (09/15/2024 8:29 PM [facility]) Pathologist [facility] Glucose WB/POC 97 70 - 99 mg/dL 09/17/2024 7:10 AM [place] [facility] Specimen Type Cap Fingerstick 2023 7:10 AM [place] [facility] Blood BLOOD SPECIMEN / Unknown 09/15/2024 8:29 PM [facility] [place] 09/17/2024 7:10 AM [place] Melissa Alvarez MD LAB - POINT OF CARE ORDERABLES Performing Organization Address [facility]/ZIP Co de Phone Number [facility] [address] [place] [phone] * (ABNORMAL) CBC W AUTO DIFFERENTIAL (09/15/2024 12:56 PM [facility] [place]) Pathologist [facility] WBC 10.2 4.0 - 10.7 x10E9/L 09/15/2024 1:05 PM [place] [facility] RBC Count 2.82(L) 4.30 - 5.80 x10E12/L 09/15/2024 1:05 PM [facility] [facility] [facility] Hemoglobin 8.9(L) 13.3 - 17.5 g/dL 09/15/2024 1:05 PM [place] [facility] Hematocrit 27.3(L) 38.7 - 51.1 % 09/15/2024 1:05 PM [place] [facility] MCV 96.8 80.0 - 98.0 fL 09/15/2024 1:05 PM [facility] MCH 31.6 26.7 - 33.6 pg 09/15/2024 1:05 PM [facility] MCHC 32.6 31.7 - 36.3 g/dL 09/15/2024 1:05 PM [facility] RDW-CV 14.0 11.3 - 14.8 % 09/15/2024 1:05 PM [facility] Platelet Count 275 150 - 420 x10E9/L 09/15/2024 1:05 PM [facility] MPV 9.5 7.8 - 11.4 fL 09/15/2024 1:05 PM [facility] Neutrophil % 81.4(H) 41.0 - 74.0 % 09/15/2024 1:05 PM [facility] Lymphocyte % 9.2(L) 17.0 - 47.0 % 09/15/2024 1:05 PM [facility] Monocyte % 5.7 3.0 - 11.0 % 09/15/2024 1:05 PM [facility] Eosinophil % 2.3 0.0 - 7.0 % 09/15/2024 1:05 PM [facility] Basophil % 0.5 0.0 - 1.6 % 09/15/2024 1:05 PM [facility] Immature Granulocytes % 0.9 0.0 - 1.0 % 09/15/2024 1:05 PM [facility] Neutrophil Absolute 8.31(H) 1.60 - 7.50 x10E9/L 09/15/2024 1:05 PM [facility] Lymphocyte Absolute 0.94(L) 1.00 - 4.40 x10E9/L 09/15/2024 1:05 PM [facility] Monocyte Absolute 0.58 0.15 - 1.00 x10E9/L 09/15/2024 1:05 PM [facility] Eosinophil Absolute 0.23 0.00 - 0.60 x10E9/L 09/15/2024 1:05 PM [facility] Basophil Absolute 0.05 0.00 - 0.13 x10E9/L 09/15/2024 1:05 PM [facility] Blood BLOOD SPECIMEN / Unknown Lab Venipuncture / Unknown 09/15/2024 12:56 PM [facility] 09/15/2024 1:00 PM [facility] Kalee Juares APRN-[employer] LAMINATOR LAB - HEMATO LOGY ORDERABLES [facility] [address] [place] [address] * (ABNORMAL) COMPREHENSIVE METABOLIC PANEL (09/15/2024 11:20 AM [facility]) Glucose 101(H) 70 - 99 mg/dL 09/15/2024 12:16 PM [facility] Sodium 137 136 - 145 mmol/L 09/15/2024 12:16 PM [facility] Potassium 4.7 3.5 - 5.1 mmol/L 09/15/2024 12:16 PM [facility] Chloride 106 98 - 107 mmol/L 09/15/2024 12:16 PM [facility] CO2 25 22 - 29 mmol/L 09/15/2024 12:16 PM [facility] Calcium 8.4 8.4 - 10.4 mg/dL 09/15/2024 12:16 PM [facility] Anion Gap 6 6 - 16 mmol/L 09/15/2024 12:16 PM [facility] BUN 32(H) 7 - 26 mg/dL 09/15/2024 12:16 PM [facility] Creatinine 1.71(H) 0.72 - 1.25 mg/dL 09/15/2024 12:16 PM [facility] Alkaline Phosphatase 122 40 - 150 U/L 09/15/2024 12:16 PM [facility] ALT 13 0 - 55 U/L 09/15/2024 12:16 PM [facility] AST 25 5 - 34 U/L 09/15/2024 12:16 PM [facility] Protein Total 5.7(L) 6.4 - 8.3 gm/dL 09/15/2024 12:16 PM [facility] Albumin 2.8(L) 3.4 - 5.0 gm/dL 09/15/2024 12:16 PM [facility] Bilirubin Total 0.4 0.2 - 1.2 mg/dL 09/15/2024 12:16 PM [facility] eGFR by CKD-EPI 38(L) >=90 mL/min/1.7 3 m2 09/15/2024 12:16 PM [facility] Blood BLOOD SPECIMEN / Unknown Lab Venipuncture / Unknown 09/15/2024 11:20 AM [facility] 09/15/2024 11:52 AM [facility] Kalee Juares GRANULAR OPERATOR-[employer]ATOR LAB - CHEMIS TRY ORDERABLES [facility] [address] [place] [address] documented in this encounter Visit Diagnoses Diagnosis Moderate dementia with agitation (HCC)- Primary Failure to thrive in adult Adult failure to thrive Failure to thrive in adult Adult failure to thrive Fall Unspecified fall SDH (subdural hematoma) (HCC) Subdural hemorrhage Observed seizure-like activity (HCC) Other convulsions History of SCC (squamous cell carcinoma) of skin Personal history of other malignant neoplasm of skin Suspected deep vein thrombosis (DVT) CLARK (acute kidney injury) (HCC) Acute kidney failure, unspecified Severe protein-calorie malnutrition (HCC) Other severe protein-calorie malnutrition Left cephalic vein thrombosis Acute venous embolism and thrombosis of superficial veins of upper extremity documented in this encounter Administered Medications Inactive Administered Medications - up to 3 most recent administrations Medication Order MAR Action Action Date Dose Rate Site 0.9% NaCl infusion at 75 mL/hr, Intravenous, CONTINUOUS, Starting on Mon09/15/24 at 1300, Until Mon09/16/24 at 0059 $ New Bag/Syringe 09/15/2024 2:49 PM [facility] 75 mL/hr 0.9% NaCl infusion at 75 mL/hr, Intravenous, CONTINUOUS, Starting on Mon09/16/24 at 1000, Until Mon09/16/24 at 2159 $ New Bag/Syringe 09/16/2024 10:53 AM [facility] 75 mL/hr 0.9% NaCl injection 1-10 mL 1-10 mL, Intracatheter, PRN, Other, peripheral line flush, Starting on Mon09/15/24 at 1107, Until Mon09/23/24 at 2243, Flush peripheral IV catheter with 1-10 mL of normal saline before and after medications and prn to clear blood from the line or to verify patency. 0.9% NaCl injection 3 mL 3 mL, Intracatheter, EVERY 8 HOURS, First dose on Mon09/15/24 at 1400, Until Discontinued, Flush peripheral IV catheter with 3 mL of normal saline every 8 hours. $ Given 09/19/2024 10:22 PM [facility] 3 mL $ Given 09/19/2024 3:01 PM [facility] 3 mL $ Given 09/18/2024 10:18 PM [facility] 3 mL acetaminophen (Tylenol) tablet 650 mg 650 mg, Oral, EVERY 4 HOURS PRN, Fever, Mild Pain, Headache, Starting on 09/15/24 at 1107, Until Mon09/23/24 at 2243, Patient preference for lesser PRN pain meds may be honored when the patient requests a less strong medication, a lower dose, or a less intrusive route of administration when the lesser drug, dose and route have been ordered for the patient. This patient request must be documented in the MAR. If both oral and IV options are ordered for the same pain severity, give oral first unless patient cannot tolerate oral intake $ Given 09/16/2024 9:19 AM [facility] 650 mg apixaban (Eliquis) tablet 2.5 mg 2.5 mg, Oral, 2 TIMES DAILY, First dose on Mon09/15/24 at 1200, Until Discontinued $ Given 09/23/2024 5:54 PM [facility] 2.5 mg $ Given 09/23/2024 9:25 AM [facility] 2.5 mg $ Given 09/22/2024 8:15 PM [facility] 2.5 mg dextrose 10 % IV bolus 12.5 g, at 999 mL/hr, Intravenous, PRN, Other, Bedside Glucose less than 70 mg/dL -If NOT able to eat and/or NPO and with IV Access, Starting on Mon09/15/24 at 1307, Until Mon09/23/24 at 2243, If NOT able to eat and/or NPO and with IV Access: For Bedside Glucose 54-69 mg/dL give 12.5 g Dextrose IV STAT For Bedside Glucose LESS than 54 mg/dl verify with a second Bedside Glucose (from a different site) and give 25 g Dextrose IV STAT Re-check and Re-treat blood glucose EVERY , 10-25 minutes until blood glucose GREATER than or equal to 80 mg/dl. NOTIFY PROVIDER OF HYPOGLYCEMIC EVENT. dextrose 10 % IV bolus 25 g, at 999 mL/hr, Intravenous, PRN, Other, Bedside Glucose less than 70 mg/dL -If NOT able to eat and/or NPO and with IV Access, Starting on Mon09/15/24 at 1307, Until 09/23/24 at 2243, If NOT able to eat and/or NPO and with IV Access: For Bedside Glucose LESS than 54 mg/dl verify with a second Bedside Glucose (from a different site) and give 25 g Dextrose IV STAT Re-check and Re-treat blood glucose EVERY - 10-25 minutes until blood glucose GREATER than or equal to 80 mg/dl. - If repeat bedside glucose 54-79 give 12.5 g Dextrose IV STAT NOTIFY PROVIDER OF HYPOGLYCEMIC EVENT. donepezil (Aricept) tablet 10 mg 10 mg, Oral, AT BEDTIME, First dose on Mon09/17/24 at 2100, Until Discontinued $ Given 09/23/2024 5:54 PM [facility] 10 mg $ Given 09/22/2024 8:15 PM [facility] 10 mg $ Given 09/21/2024 8:12 PM [facility] 10 mg escitalopram (Lexapro) tablet 10 mg 10 mg, Oral, DAILY, First dose on Mon09/15/24 at 1200, Until Discontinued $ Given 09/23/2024 9:25 AM [facility] 10 mg $ Given 09/22/2024 9:50 AM [facility] 10 mg $ Given 09/21/2024 9:25 AM [facility] 10 mg glucagon (Glucagen) injection 1 mg 1 mg, Subcutaneous, PRN, Bedside Glucose less than 70 mg/dL - If NOT able to eat and/or NPO and withOUT IV Access, Starting on Mon09/15/24 at 1307, Until 09/23/24 at 2243, If NOT able to eat and/or NPO and NO IV Access: For Bedside glucose 54-69 mg/dL ? - Give 1 mg subcutaneous For Bedside Glucose LESS than 54 mg/dl ? -?verify with a second bedside glucose (from a different site) ? -?Give 1 mg subcutaneous Re-check and Re-treat blood glucose EVERY 10-25 minutes until blood glucose GREATER than or equal to 80 mg/dl.? NOTIFY PROVIDER OF HYPOGLYCEMIC EVENT. Reconstitute vial with 1 mL of sterile water for injection for a final concentration of 1 mg/mL; shake vial gently; use immediately and discard unused portion glucose (Diabetic Use) oral gel Oral, PRN, Other, Bedside Glucose less than 70 mg/dL, Starting on 09/15/24 at 1307, Until 09/23/24 at 2243, If able to take oral medications: For Bedside Glucose 54 - 69 mg/dL Give 15 grams of oral carbohydrates - 1 glucose gel (see MAR) If patient refuses glucose gel, then offer: - 4 ounces of fruit juice OR - 4 ounces non-diet soda OR - 8 ounces of fat-free milk For Bedside Glucose LESS than 54 mg/dL verify with a second Bedside Glucose (from a different site) - If pt is symptomatic, do not delay treatment - If accuracy of the POC glucose is in question, confirm glucose with a STAT laboratory test Give 30 grams of oral carbohydrates - 2 glucose gels (see MAR) If patient refuses glucose gel, then offer: - 8 ounces of fruit juice OR - 8 ounces non-diet soda OR - 16 ounces of fat-free milk Re-check and Re-treat blood glucose EVERY 10-25 minutes until blood glucose GREATER than or equal to 80 mg/dl. - If on recheck, bedside glucose 54-79 mg/dL - Give 15 grams of oral carbohydrates (see above for choices) NOTIFY PROVIDER OF HYPOGLYCEMIC EVENT. haloperidol lactate (Haldol) injection 2 mg 2 mg, Intramuscular, ONCE, 1 dose, On 09/21/24 at 0600 $ Given 09/21/2024 5:53 AM [facility] 2 mg Left Deltoid levETIRAcetam (Keppra) injection 500 mg 500 mg, Intravenous, EVERY 12 HOURS, First dose on 09/15/24 at 1300, Until Discontinued, Administer straight drug (undiluted) over two minutes $ Given 09/19/2024 3:01 PM [facility] 500 mg $ Given 09/19/2024 12:16 AM [facility] 500 mg $ Given 09/18/2024 12:49 PM [facility] 500 mg levETIRAcetam (Keppra) tablet 500 mg 500 mg, Oral, 2 TIMES DAILY, First dose on [place] 09/19/24 at 2100, Until Discontinued, Do not crush or chew because of TASTE only. $ Given 09/23/2024 5:54 PM [facility] 500 mg $ Given 09/23/2024 9:25 AM [facility] 500 mg $ Given 09/22/2024 8:15 PM [facility] 500 mg LORazepam (Ativan) injection 1 mg 1 mg, Intramuscular, ONCE, 1 dose, On Mon09/17/24 at 1900 $ Given 09/17/2024 11:29 PM [facility] 1 mg Left Shoulder OLANZapine (disintegrating) (ZyPREXA Zydis) tablet 5 mg 5 mg, Oral, EVERY 6 HOURS PRN, agitation, Starting on 09/21/24 at 0028, Until 09/23/24 at 2243 $ Given 09/23/2024 11:44 AM [facility] 5 mg OLANZapine (disintegrating) (ZyPREXA Zydis) tablet 5 mg 5 mg, Oral, 2 TIMES DAILY, First dose on Mon09/23/24 at 2100, Until Discontinued $ Given 09/23/2024 8:25 PM [facility] 5 mg OLANZapine (ZyPREXA) injection 10 mg 10 mg, Intramuscular, ONCE, 1 dose, On Mon09/15/24 at 2115, Monitor for orthostatic hypotension prior to the administration. Reconstitute with 2.1 mL of sterile water to give approximately 5 mg/mL concentration. $ Given 09/15/2024 9:13 PM [facility] 10 mg Lef t Arm OLANZapine (ZyPREXA) injection 10 mg 10 mg, Intramuscular, ONCE, 1 dose, On Mon09/17/24 at 1815, Monitor for orthostatic hypotension prior to the administration. Reconstitute with 2.1 mL of sterile water to give approximately 5 mg/mL concentration. $ Given 09/17/2024 6:22 PM [facility] 10 mg Lef t Arm OLANZapine (ZyPREXA) injection 10 mg 10 mg, Intramuscular, EVERY 8 HOURS PRN, Agitation, Starting on Mon09/18/24 at 0000, Until Mon09/18/24 at 1213, Monitor for orthostatic hypotension prior to the administration. Reconstitute with 2.1 mL of sterile water to give approximately 5 mg/mL concentration. $ Given 09/18/2024 1:25 AM [facility] 10 mg Lef t Arm OLANZapine (ZyPREXA) injection 2.5 mg 2.5 mg, Intramuscular, EVERY 6 HOURS PRN, Agitation, Psychosis, Starting on Mon09/18/24 at 1212, Until 09/21/24 at 0029, Monitor for orthostatic hypotension prior to the administration. Reconstitute with 2.1 mL of sterile water to give approximately 5 mg/mL concentration. $ Given 09/20/2024 2:06 AM [facility] 2.5 mg Right Arm $ Given 09/19/2024 4:55 PM [facility] 2.5 mg Ri ght Arm $ Given 09/18/2024 12:37 PM [facility] 2.5 mg L eft Deltoid OLANZapine (ZyPREXA) injection 5 mg 5 mg, Intramuscular, EVERY 6 HOURS PRN, Agitation, if refuses PO/ODT, Starting on 09/21/24 at 0028, Until 09/23/24 at 2243, Monitor for orthostatic hypotension prior to the administration. Reconstitute with 2.1 mL of sterile water to give approximately 5 mg/mL concentration. $ Given 09/22/2024 6:49 AM [facility] 5 mg Left Arm $ Given 09/21/2024 12:56 AM [facility] 5 mg L eft Deltoid OLANZapine (ZyPREXA) tablet 5 mg 5 mg, Oral, AT BEDTIME, First dose on Mon09/18/24 at 2100, Until Discontinued $ Given 09/20/2024 8:59 PM [facility] 5 mg $ Given 09/19/2024 10:21 PM [facility] 5 mg $ Given 09/18/2024 10:17 PM [facility] 5 mg OLANZapine (ZyPREXA) tablet 5 mg 5 mg, Oral, 2 TIMES DAILY, First dose (after last modification) on 09/21/24 at 0900, Until Discontinued $ Given 09/23/2024 9:25 AM [facility] 5 mg $ Given 09/22/2024 8:15 PM [facility] 5 mg $ Given 09/22/2024 9:50 AM [facility] 5 mg ondansetron (disintegrating) (Zofran ODT) tablet 4 mg 4 mg, Oral, EVERY 6 HOURS PRN, Nausea/Vomiting, Starting on 09/15/24 at 1108, Until 09/23/24 at 2243, Dissolved orally on tongue $ Given 09/23/2024 5:21 PM [facility] 4 mg ondansetron (Zofran) injection 4 mg 4 mg, Intravenous, EVERY 6 HOURS PRN, Nausea/Vomiting, Starting on Mon09/15/24 at 1108, Until Mon09/23/24 at 2243, Administer IV if patient is NPO, actively vomiting, or unable to swallow. polyethylene glycol 3350 (Miralax) packet 17 g 17 g, Oral, DAILY PRN, Constipation, Starting on Mon09/15/24 at 1108, Until Mon09/23/24 at 2243, Administer daily when escalating to bisacodyl or fleet QUEtiapine (SEROquel) tablet 12.5 mg 12.5 mg, Oral, AT BEDTIME, First dose (after last modification) on Mon09/16/24 at 2100, Until Discontinued $ Given 09/17/2024 9:32 PM [facility] 12.5 mg $ Given 09/16/2024 8:45 PM [facility] 12.5 mg QUEtiapine (SEROquel) tablet 25 mg 25 mg, Oral, DAILY, First dose (after last modification) on Mon09/16/24 at 1030, Until Discontinued $ Given 09/17/2024 9:20 AM [facility] 25 mg $ Given 09/16/2024 10:53 AM [facility] 25 mg documented in this encounter Active and Recently Administered Medications Times are shown in [facility]. Scheduled Medication Order 09/21/2024 09/22/2024 09/23/2024 0.9% NaCl injection 3 mL(Linked Group 1) 3 mL, Intracatheter, EVERY 8 HOURS, First dose on Mon09/15/24 at 1400, Until Discontinued, Flush peripheral IV catheter with 3 mL of normal saline every 8 hours. 0430 (Not Administered - Provider: Nolberto Modi RN - Reason: Loss of Access)1349 (Not Administered - Provider: Claire Larkin RN - Reason: Loss of Access)2157 (Not Administered - Provider: Bonilla Griffith RN - Reason: Loss of Access) 0414 (Not Administered - Provider: Bonilla Griffith RN - Reason: Loss of Access)1717 (Not Administered - Provider: Toño Chen RN - Reason: Loss of Access)2015 (Not Administered - Provider: Danii Celis RN - Reason: Loss of Access) 0405 (Not Administered - Provider: Danii Celis RN - Reason: Loss of Access)1609 (Not Administered - Provider: Ange Askew RN - Reason: Loss of Access) apixaban (Eliquis) tablet 2.5 mg 2.5 mg, Oral, 2 TIMES DAILY, First dose on 09/15/24 at 1200, Until Discontinued 924 ($ Given - Provider: Claire Larkin RN)2011 ($ Given - Provider: John Malave RN) 0950 ($ Given - Provider: Toño Chen RN)2014 ($ Given - Provider: Danii Celis RN) 09 ($ Given - Provider: Ange Askew RN)175 ($ Given - Provider: Ange Askew RN) donepezil (Aricept) tablet 10 mg 10 mg, Oral, AT BEDTIME, First dose on Mon09/17/24 at 2100, Until Discontinued 2011 ($ Given - Provider: John Malave RN) 2014 ($ Given - Provider: Danii Celis RN) 1753 ($ Given - Provider: Ange Askew RN) escitalopram (Lexapro) tablet 10 mg 10 mg, Oral, DAILY, First dose on 09/15/24 at 1200, Until Discontinued 924 ($ Given - Provider: Claire Larkin RN) 0950 ($ Given - Provider: Toño Chen RN) 0925 ($ Given - Provider: Ange Askew RN) haloperidol lactate (Haldol) injection 2 mg (COMPLETED) 2 mg, Intramuscular, ONCE, 1 dose, On 09/21/24 at 0600 0553 ($ Given - Provider: Nolberto Modi RN) levETIRAcetam (Keppra) tablet 500 mg 500 mg, Oral, 2 TIMES DAILY, First dose on [place] 09/19/24 at 2100, Until Discontinued, Do not crush or chew because of TASTE only. 0925 ($ Given - Provider: Claire Larkin RN)2011 ($ Given - Provider: John Malave RN) 0950 ($ Given - Provider: Toño Chen RN)2014 ($ Given - Provider: Danii Celis RN) 0925 ($ Given - Provider: Ange Askew RN)1756 ($ Given - Provider: Ange Askew, RN) OLANZapine (disintegrating) (ZyPREXA Zydis) tablet 5 mg 5 mg, Oral, 2 TIMES DAILY, First dose on 09/23/24 at 2100, Until Discontinued 2024 ($ Given - Provider: Prieto Bennett, Nurse Seed Potato Arranger) OLANZapine (ZyPREXA) tablet 5 mg (CANCELED) 5 mg, Oral, 2 TIMES DAILY, First dose (after last modification) on 09/21/24 at 0900, Until Discontinued 924 ($ Given - Provider: Claire Larkin, NIKKIE)2009 ($ Given - Provider: John Malave, RN) 0950 ($ Given - Provider: Toño Chen, NIKKIE)2014 ($ Given - Provider: Danii Celis RN) 0925 ($ Given - Provider: Ange Askew RN) PRN Medication Order 09/21/2024 09/22/2024 09/23/2024 0.9% NaCl injection 1-10 mL(Linked Group 1) 1-10 mL, Intracatheter, PRN, Other, peripheral line flush, Starting on 09/15/24 at 1107, Until Mon09/23/24 at 2243, Flush peripheral IV catheter with 1-10 mL of normal saline before and after medications and prn to clear blood from the line or to verify patency. acetaminophen (Tylenol) tablet 650 mg 650 mg, Oral, EVERY 4 HOURS PRN, Fever, Mild Pain, Headache, Starting on 09/15/24 at 1107, Until Mon09/23/24 at 2243, Patient preference for lesser PRN pain meds may be honored when the patient requests a less strong medication, a lower dose, or a less intrusive route of administration when the lesser drug, dose and route have been ordered for the patient. This patient request must be documented in the MAR. If both oral and IV options are ordered for the same pain severity, give oral first unless patient cannot tolerate oral intake dextrose 10 % IV bolus(Linked Group 2) 12.5 g, at 999 mL/hr, Intravenous, PRN, Other, Bedside Glucose less than 70 mg/dL -If NOT able to eat and/or NPO and with IV Access, Starting on 09/15/24 at 1307, Until 09/23/24 at 2243, If NOT able to eat and/or NPO and with IV Access: For Bedside Glucose 54-69 mg/dL give 12.5 g Dextrose IV STAT For Bedside Glucose LESS than 54 mg/dl verify with a second Bedside Glucose (from a different site) and give 25 g Dextrose IV STAT Re-check and Re-treat blood glucose EVERY , 10-25 minutes until blood glucose GREATER than or equal to 80 mg/dl. NOTIFY PROVIDER OF HYPOGLYCEMIC EVENT. dextrose 10 % IV bolus(Linked Group 2) 25 g, at 999 mL/hr, Intravenous, PRN, Other, Bedside Glucose less than 70 mg/dL -If NOT able to eat and/or NPO and with IV Access, Starting on [place] 09/15/24 at 1307, Until Mon09/23/24 at 2243, If NOT able to eat and/or NPO and with IV Access: For Bedside Glucose LESS than 54 mg/dl verify with a second Bedside Glucose (from a different site) and give 25 g Dextrose IV STAT Re-check and Re-treat blood glucose EVERY - 10-25 minutes until blood glucose GREATER than or equal to 80 mg/dl. - If repeat bedside glucose 54-79 give 12.5 g Dextrose IV STAT NOTIFY PROVIDER OF HYPOGLYCEMIC EVENT. glucagon (Glucagen) injection 1 mg(Linked Group 2) 1 mg, Subcutaneous, PRN, Bedside Glucose less than 70 mg/dL - If NOT able to eat and/or NPO and withOUT IV Access, Starting on [place] 09/15/24 at 1307, Until 09/23/24 at 2243, If NOT able to eat and/or NPO and NO IV Access: For Bedside glucose 54-69 mg/dL ? - Give 1 mg subcutaneous For Bedside Glucose LESS than 54 mg/dl ? -?verify with a second bedside glucose (from a different site) ? -?Give 1 mg subcutaneous Re-check and Re-treat blood glucose EVERY 10-25 minutes until blood glucose GREATER than or equal to 80 mg/dl.? NOTIFY PROVIDER OF HYPOGLYCEMIC EVENT. Reconstitute vial with 1 mL of sterile water for injection for a final concentration of 1 mg/mL; shake vial gently; use immediately and discard unused portion glucose (Diabetic Use) oral gel Oral, PRN, Other, Bedside Glucose less than 70 mg/dL, Starting on 09/15/24 at 1307, Until 09/23/24 at 2243, If able to take oral medications: For Bedside Glucose 54 - 69 mg/dL Give 15 grams of oral carbohydrates - 1 glucose gel (see MAR) If patient refuses glucose gel, then offer: - 4 ounces of fruit juice OR - 4 ounces non-diet soda OR - 8 ounces of fat-free milk For Bedside Glucose LESS than 54 mg/dL verify with a second Bedside Glucose (from a different site) - If pt is symptomatic, do not delay treatment - If accuracy of the POC glucose is in question, confirm glucose with a STAT laboratory test Give 30 grams of oral carbohydrates - 2 glucose gels (see MAR) If patient refuses glucose gel, then offer: - 8 ounces of fruit juice OR - 8 ounces non-diet soda OR - 16 ounces of fat-free milk Re-check and Re-treat blood glucose EVERY 10-25 minutes until blood glucose GREATER than or equal to 80 mg/dl. - If on recheck, bedside glucose 54-79 mg/dL - Give 15 grams of oral carbohydrates (see above for choices) NOTIFY PROVIDER OF HYPOGLYCEMIC EVENT. OLANZapine (disintegrating) (ZyPREXA Zydis) tablet 5 mg(Linked Group 3) 5 mg, Oral, EVERY 6 HOURS PRN, agitation, Starting on 09/21/24 at 0028, Until 09/23/24 at 2243 0056 (See Alternative - Provider: Nolberto Modi RN) 0649 (See Alternative - Provider: John Malave RN) 1144 ($ Given - Provider: Ange Askew RN) OLANZapine (ZyPREXA) injection 5 mg(Linked Group 3) 5 mg, Intramuscular, EVERY 6 HOURS PRN, Agitation, if refuses PO/ODT, Starting on 09/21/24 at 0028, Until 09/23/24 at 2243, Monitor for orthostatic hypotension prior to the administration. Reconstitute with 2.1 mL of sterile water to give approximately 5 mg/mL concentration. 0056 ($ Given - Provider: Nolberto Modi RN) 0649 ($ Given - Provider: John Malave RN) 1144 (See Alternative - Provider: Ange Askew RN) ondansetron (disintegrating) (Zofran ODT) tablet 4 mg(Linked Group 4) 4 mg, Oral, EVERY 6 HOURS PRN, Nausea/Vomiting, Starting on 09/15/24 at 1108, Until Mon09/23/24 at 2243, Dissolved orally on tongue 1721 ($ Given - Provider: Ange Asekw RN) ondansetron (Zofran) injection 4 mg(Linked Group 4) 4 mg, Intravenous, EVERY 6 HOURS PRN, Nausea/Vomiting, Starting on 09/15/24 at 1108, Until 09/23/24 at 2243, Administer IV if patient is NPO, actively vomiting, or unable to swallow. 1721 (See Alternative - Provider: Ange Askew RN) polyethylene glycol 3350 (Miralax) packet 17 g 17 g, Oral, DAILY PRN, Constipation, Starting on Mon09/15/24 at 1108, Until Mon09/23/24 at 2243, Administer daily when escalating to bisacodyl or fleet Linked Groups Order Group 1: SALINE LOCK, INSERT AND MAINTAIN (CANCELED) Routine, CONTINUOUS, Starting on Mon09/15/24 at 1115, Until Specified, New collection And 0.9% NaCl injection 3 mLJump to med 3 mL, Intracatheter, EVERY 8 HOURS, First dose on Mon09/15/24 at 1400, Until Discontinued, Flush peripheral IV catheter with 3 mL of normal saline every 8 hours. And 0.9% NaCl injection 1-10 mLJump to med 1-10 mL, Intracatheter, PRN, Other, peripheral line flush, Starting on Mon09/15/24 at 1107, Until Mon09/23/24 at 2243, Flush peripheral IV catheter with 1-10 mL of normal saline before and after medications and prn to clear blood from the line or to verify patency. Group 2: dextrose 10 % IV bolusJump to med 12.5 g, at 999 mL/hr, Intravenous, PRN, Other, Bedside Glucose less than 70 mg/dL -If NOT able to eat and/or NPO and with IV Access, Starting on Mon09/15/24 at 1307, Until Mon09/23/24 at 2243, If NOT able to eat and/or NPO and with IV Access: For Bedside Glucose 54-69 mg/dL give 12.5 g Dextrose IV STAT For Bedside Glucose LESS than 54 mg/dl verify with a second Bedside Glucose (from a different site) and give 25 g Dextrose IV STAT Re-check and Re-treat blood glucose EVERY , 10-25 minutes until blood glucose GREATER than or equal to 80 mg/dl. NOTIFY PROVIDER OF HYPOGLYCEMIC EVENT. Or dextrose 10 % IV bolusJump to med 25 g, at 999 mL/hr, Intravenous, PRN, Other, Bedside Glucose less than 70 mg/dL -If NOT able to eat and/or NPO and with IV Access, Starting on 09/15/24 at 1307, Until Mon09/23/24 at 2243, If NOT able to eat and/or NPO and with IV Access: For Bedside Glucose LESS than 54 mg/dl verify with a second Bedside Glucose (from a different site) and give 25 g Dextrose IV STAT Re-check and Re-treat blood glucose EVERY - 10-25 minutes until blood glucose GREATER than or equal to 80 mg/dl. - If repeat bedside glucose 54-79 give 12.5 g Dextrose IV STAT NOTIFY PROVIDER OF HYPOGLYCEMIC EVENT. Or glucagon (Glucagen) injection 1 mgJump to med 1 mg, Subcutaneous, PRN, Bedside Glucose less than 70 mg/dL - If NOT able to eat and/or NPO and withOUT IV Access, Starting on 09/15/24 at 1307, Until 09/23/24 at 2243, If NOT able to eat and/or NPO and NO IV Access: For Bedside glucose 54-69 mg/dL ? - Give 1 mg subcutaneous For Bedside Glucose LESS than 54 mg/dl ? -?verify with a second bedside glucose (from a different site) ? -?Give 1 mg subcutaneous Re-check and Re-treat blood glucose EVERY 10-25 minutes until blood glucose GREATER than or equal to 80 mg/dl.? NOTIFY PROVIDER OF HYPOGLYCEMIC EVENT. Reconstitute vial with 1 mL of sterile water for injection for a final concentration of 1 mg/mL; shake vial gently; use immediately and discard unused portion Group 3: OLANZapine (disintegrating) (ZyPREXA Zydis) tablet 5 mgJump to med 5 mg, Oral, EVERY 6 HOURS PRN, agitation, Starting on 09/21/24 at 0028, Until 09/23/24 at 2243 Or OLANZapine (ZyPREXA) injection 5 mgJump to med 5 mg, Intramuscular, EVERY 6 HOURS PRN, Agitation, if refuses PO/ODT, Starting on 09/21/24 at 0028, Until 09/23/24 at 2243, Monitor for orthostatic hypotension prior to the administration. Reconstitute with 2.1 mL of sterile water to give approximately 5 mg/mL concentration. Group 4: ondansetron (disintegrating) (Zofran ODT) tablet 4 mgJump to med 4 mg, Oral, EVERY 6 HOURS PRN, Nausea/Vomiting, Starting on 09/15/24 at 1108, Until 09/23/24 at 2243, Dissolved orally on tongue Or ondansetron (Zofran) injection 4 mgJump to med 4 mg, Intravenous, EVERY 6 HOURS PRN, Nausea/Vomiting, Starting on 09/15/24 at 1108, Until 09/23/24 at 2243, Administer IV if patient is NPO, actively vomiting, or unable to swallow. documented in this encounter Care Teams Hand Coke Drawer Relationship Specialty Start Date End Date Bao Pierre MD PCP - General Internal Medicine 07/09/17 documented as of this encounter
--- OUTSIDE RECORDS SUMMARY | 2024-10-01 08:35 | XMS_ITS | Patient Health Summary ---
Author Organization [facility] Address [address] [place] [address] Care Team Providers Care Pool Coordinator Name Role Phone Bao Pierre MD Primary Care Provider [phone] Note from [facility],non-owned Affiliates and Associated Physician Practices is amultiple site organization consisting of ambulatory clinics and hospital sitesin [place], [place], [place] and [place]. This disclosure is being madepursuant to the Care Everywhere program and may not contain all information available regarding this patient. Last updated 18.[facility] Allergies * Lorazepam(Other) * Epinephrine(Dizziness) -Low Criticality Medications * Be aware that medications may not be up to date on this document. Alwaysverify current medications with the patient. * Nutritional Supplements (Ensure Plus High Protein) LIQD(Started 08/30/2024) Take 1 container by mouth 3 times daily * levETIRAcetam (Keppra) 500 MG tablet(Started 09/06/2024) Take 1 (one) tablet by mouth 2 times daily 2 refills by 09/06/2025 * escitalopram (Lexapro) 10 MG tablet(Started 09/06/2024) Take 1 (one) tablet by mouth once daily 2 refills by 09/06/2025 * polyethylene glycol 3350 (Miralax) 17 g packet(Started 09/06/2024) Take 17 (seventeen) g by mouth once daily * senna (Senokot) 8.6 MG tablet(Started 09/06/2024) Take 1 (one) tablet by mouth once daily * folic acid (Folvite) 1 MG tablet(Started 09/13/2024) Take 1 (one) tablet by mouth once daily * apixaban (Eliquis) 2.5 MG tablet(Started 09/12/2024) Take 1 (one) tablet by mouth 2 times daily for 30 days * acetaminophen (Tylenol) 500 MG tablet(Started 09/12/2024) Take 2 (two) tablets by mouth every 8 hours as needed for Headache (pain) Maximum allowable Acetaminophen amount = 4 Grams (4000 mg) / 24 hours. * OLANZapine, disintegrating, (ZyPREXA Zydis) 5 MG tablet(Started 09/23/2024) Take 1 (one) tablet by mouth 2 times daily * donepezil (Aricept) 10 MG tablet(Started 09/23/2024) Take 1 (one) tablet by mouth at bedtime 3 refills by 09/23/2025 Ended Medications* alfuzosin CR 24hr (UROXATRAL) 10 MG tablet(Discontinued) Take 1 (one) tablet by mouth once daily * FIBER PO(Discontinued) Take 1 capsule by mouth 2 times daily * finasteride (PROSCAR) 5 MG tablet(Discontinued) Take 1 (one) tablet by mouth once daily * GLUCOSAMINE CHONDROITIN COMPLX PO(Discontinued) Take 1 tablet by mouth once daily * ibuprofen (MOTRIN) 600 MG tablet(Started 08/07/2014)(Discontinued) Take 1 (one) tablet by mouth as needed * lovastatin (MEVACOR) 20 MG tablet(Started 02/15/2018)(Discontinued) Take 1 (one) tablet by mouth once daily 12 refills left * Multiple Vitamins-Minerals (HAIR SKIN AND NAILS FORMULA) TABS(Discontinued) Take 2 tablets by mouth once daily * Vitamin D, Cholecalciferol, 1000 UNITS CAPS(Discontinued) Take 1 (one) capsule by mouth once daily * ingenol (PICATO) 0.015 % gel(Started 03/14/2019)(Discontinued) Apply to affected area once daily For actinic keratosis on the Forehead and your hair line Use for 3 days. * aspirin EC (ECOTRIN) 81 MG tablet(Discontinued) Take 1 (one) tablet by mouth once daily * metoprolol succinate XL 24hr (TOPROL XL) 25 MG tablet(Started 01/30/2020) (Discontinued) Take 0.5 (one-half) tablet by mouth once daily * Apoaequorin (PREVAGEN PO)(Discontinued) Take 1 tablet by mouth once daily * hydrOXYzine HCl (Atarax) 10 MG tablet(Started 10/31/2023)(Discontinued) * QUEtiapine (SEROquel) 25 MG tablet(Started 09/06/2024)(Discontinued) Take 1 (one) tablet by mouth every morning AND 0.5 (one-half) tablet at bedtime. May also take 0.5 (one-half) tablet 3 times daily as needed. Reasons: Agitation. 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 (FLUZONE HIGH-DOSE QUADRIVALENT; 65Y+), 0.7 ML (HD-IIV4)(Given 06/18/2020, 07/09/2017, 08/11/2016) * TDAP (7yrs+)(Given 08/27/2024) Social History Tobacco Use Types Packs/Day Years [...] and heating? Not hard at all 09/15/2024 [facility] Occupat ional Health - Occupational Stress [...] any time in the past 12 m [facility], were you homeless or living in a alf (including now)? No 09/15/2024 Sex and Gender Information Value Date Recorded Sex Assigned at Not on file Gender Identity Not on file Sexual Orientation Not on file Last Filed Vital Signs Vital Sign Reading Time Taken Comments Blood Pressure 126/65 09/23/2024 7:07 PM [facility] Pulse 71 09/23/2024 7:07 PM [facility] Temperature 36.4 ??C (97.6 ??F) 09/23/2024 7:07 PM CS T Respiratory Rate 17 09/23/2024 7:07 PM [facility] Oxygen Saturation 98% 09/23/2024 7:07 PM [facility] Inhaled Oxygen Concentration - - Weight 71.4 kg (157 lb 8 oz) 09/15/2024 10:11 AM [facility] Height 170.2 cm (5' 7 ) 09/15/2024 10:11 AM [facility] Body Mass Index 24.67 09/15/2024 10:11 AM [facility] Procedures * GLUCOSE - POINT OF CARE(Performed 09/19/2024) * GLUCOSE - POINT OF CARE(Performed 09/19/2024) * GLUCOSE - POINT OF CARE(Performed 09/18/2024) * GLUCOSE - POINT OF CARE(Performed 09/18/2024) * GLUCOSE - POINT OF CARE(Performed 09/17/2024) * GLUCOSE - POINT OF CARE(Performed 09/17/2024) * GLUCOSE - POINT OF CARE(Performed 09/17/2024) * GLUCOSE - POINT OF CARE(Performed 09/17/2024) * RENAL FUNCTION PANEL(Performed 09/17/2024) * GLUCOSE - POINT OF CARE(Performed 09/17/2024) * GLUCOSE - POINT OF CARE(Performed 09/16/2024) * GLUCOSE - POINT OF CARE(Performed 09/16/2024) * GLUCOSE - POINT OF CARE(Performed 09/16/2024) * CBC W/O DIFFERENTIAL(Performed 09/16/2024) * BASIC METABOLIC PANEL (CALCIUM TOTAL)(Performed 09/16/2024) * GLUCOSE - POINT OF CARE(Performed 09/16/2024) * GLUCOSE - POINT OF CARE(Performed 09/15/2024) * CBC W AUTO DIFFERENTIAL(Performed 09/15/2024) * PT EVAL AND TREAT(Performed 09/15/2024) * OT EVAL AND TREAT(Performed 09/15/2024) * COMPREHENSIVE METABOLIC PANEL(Performed 09/15/2024) * CT HEAD WO CONTRAST(Performed 09/14/2024) Performed for Fall, initial encounter * TROPONIN-I HIGH SENSITIVE REFLEX 1HOUR(Performed 09/14/2024) * TEG 6S PLATELET MAPPING(Performed 09/14/2024) * XR CHEST 1VW PORTABLE(Performed 09/14/2024) Performed for Fall, initial encounter * PT-INR SLH(Performed 09/14/2024) * URINALYSIS REFLEX MICROSCOPIC REFLEX CULTURE(Performed 09/14/2024) * TYPE + SCREEN PANEL(Performed 09/14/2024) * LIPASE BLOOD(Performed 09/14/2024) * TEG 6 GLOBAL HEMOSTASIS W/ LYSIS(Performed 09/14/2024) * TROPONIN-I HIGH SENSITIVE BASELINE + 1HR(Performed 09/14/2024) * COMPREHENSIVE METABOLIC PANEL(Performed 09/14/2024) * CBC W AUTO DIFFERENTIAL(Performed 09/14/2024) * PT-INR SLH(Performed 09/12/2024) * CBC W/O DIFFERENTIAL(Performed 09/11/2024) * RENAL FUNCTION PANEL(Performed 09/11/2024) * PT-INR SLH(Performed 09/11/2024) * CBC W/O DIFFERENTIAL(Performed 09/10/2024) * RENAL FUNCTION PANEL(Performed 09/10/2024) * PT-INR SLH(Performed 09/10/2024) * RENAL FUNCTION PANEL(Performed 09/09/2024) * CBC W/O DIFFERENTIAL(Performed 09/09/2024) * VAS LEFT VENOUS DUPLEX UE(Performed 09/09/2024) Performed for Left arm swelling * PT-INR SLH(Performed 09/09/2024) * LEVETIRACETAM LEVEL(Performed 09/09/2024) * RENAL FUNCTION PANEL(Performed 09/08/2024) * CBC W/O DIFFERENTIAL(Performed 09/08/2024) * VITAMIN B12(Performed 09/08/2024) * FOLATE(Performed 09/08/2024) * IRON + TRANSFERRIN PANEL(Performed 09/08/2024) * CULTURE BLOOD(Performed 09/08/2024) * GLUCOSE - POINT OF CARE(Performed 09/08/2024) * PHOSPHORUS BLOOD(Performed 09/08/2024) * MAGNESIUM BLOOD(Performed 09/08/2024) * CBC W/O DIFFERENTIAL(Performed 09/08/2024) * BASIC METABOLIC PANEL (CALCIUM TOTAL)(Performed 09/08/2024) * PT-INR SLH(Performed 09/08/2024) * URINE MICROSCOPIC ONLY REFLEX TO CULTURE(Performed 09/07/2024) * URINALYSIS REFLEX MICROSCOPIC REFLEX CULTURE(Performed 09/07/2024) * CULTURE URINE(Performed 09/07/2024) * XR HUMERUS LEFT 2VW OR MORE(Performed 09/07/2024) Performed for Left arm swelling * D-DIMER(Performed 09/07/2024) * PTT SLH(Performed 09/07/2024) * PT-INR SLH(Performed 09/07/2024) * C-REACTIVE PROTEIN(Performed 09/07/2024) * ERYTHROCYTE SEDIMENTATION RATE(Performed 09/07/2024) * COMPREHENSIVE METABOLIC PANEL(Performed 09/07/2024) * CBC W AUTO DIFFERENTIAL(Performed 09/07/2024) * MRI BRAIN WWO CONTRAST(Performed 09/05/2024) Performed for Altered mental status, unspecified altered mental status type * EKG 12-LEAD(Performed 08/30/2024) Performed for SDH (subdural hematoma) (HCC) * XR ANKLE LEFT 3VW OR MORE(Performed 08/30/2024) Performed for Fall, initial encounter * CT HEAD WO CONTRAST(Performed 08/29/2024) Performed for SDH (subdural hematoma) (HCC) * PHOSPHORUS BLOOD(Performed 08/29/2024) * MAGNESIUM BLOOD(Performed 08/29/2024) * BASIC METABOLIC PANEL (CALCIUM TOTAL)(Performed 08/29/2024) * CBC W/O DIFFERENTIAL(Performed 08/29/2024) * URINALYSIS REFLEX TO MICROSCOPIC NO CULTURE(Performed 08/28/2024) * URINE DRUG SCREEN IMMUNOASSAY(Performed 08/28/2024) * BLOOD TYPE VERIFICATION(Performed 08/28/2024) * SARS-COV-2 (COVID-19) RAPID(Performed 08/28/2024) Performed for Trauma * XR ELBOW LEFT 3VW OR MORE(Performed 08/27/2024) Performed for Trauma * XR ANKLE LEFT 3VW OR MORE(Performed 08/27/2024) Performed for Trauma * CT LUMBAR SPINE WO CONTRAST(Performed 08/27/2024) Performed for Trauma * CT THORACIC SPINE WO CONTRAST(Performed 08/27/2024) Performed for Trauma * CT CHEST ABDOMEN PELVIS W CONT(Performed 08/27/2024) Performed for Trauma * CT CERVICAL SPINE WO CONTRAST(Performed 08/27/2024) Performed for Trauma * CT FACIAL BONES WO CONTRAST(Performed 08/27/2024) Performed for Trauma * CT HEAD WO CONTRAST(Performed 08/27/2024) Performed for Trauma * XR CHEST 1VW PORTABLE(Performed 08/27/2024) Performed for Trauma * XR PELVIS 1 OR 2VW(Performed 08/27/2024) Performed for Trauma * TYPE + SCREEN PANEL(Performed 08/27/2024) * TEG 6S PLATELET MAPPING(Performed 08/27/2024) * TEG 6 GLOBAL HEMOSTASIS W/ LYSIS(Performed 08/27/2024) * PTT SLH(Performed 08/27/2024) * PT-INR SLH(Performed 08/27/2024) * CK BLOOD(Performed 08/27/2024) * CBC W AUTO DIFFERENTIAL(Performed 08/27/2024) * BASIC METABOLIC PANEL (CALCIUM TOTAL)(Performed 08/27/2024) * ALCOHOL ETHYL BLOOD(Performed 08/27/2024) * NC DESTROY PREMALIG LESION, 1ST LESION(Performed 11/14/2023) Performed for Actinic keratosis * NC DESTROY PREMALIG LESION, 2-14(Performed 11/14/2023) Performed for Actinic keratosis * NC DESTROY PREMALIG LESION, 1ST LESION(Performed 05/05/2020) Performed for Actinic keratosis * NC DESTROY PREMALIG LESION, 2-14(Performed 05/05/2020) Performed for Actinic keratosis * NC DESTROY PREMALIG LESION, 1ST LESION(Performed 03/14/2019) Performed for Actinic keratosis * NC DESTROY PREMALIG LESION, 2-14(Performed 03/14/2019) Performed for Actinic keratosis * NC TANGNTL BX SKIN SINGLE LES(Performed 02/22/2019) Performed for Neoplasm of uncertain behavior of skin * NC DESTROY PREMALIG LESION, 1ST LESION(Performed 02/22/2019) Performed for Actinic keratosis * NC DESTROY PREMALIG LESION, 2-14(Performed 02/22/2019) Performed for Actinic keratosis * DERMATOPATHOLOGY(Performed 02/22/2019) Performed for Neoplasm of uncertain behavior of skin * NC DESTROY PREMALIG LESION, 1ST LESION(Performed 04/18/2018) Performed for Actinic keratosis * NC DESTROY PREMALIG LESION, 2-14(Performed 04/18/2018) Performed for Actinic keratosis * DERMATOPATHOLOGY(Performed 06/14/2017) * DERMATOPATHOLOGY(Performed 05/31/2017) * DERMATOPATHOLOGY(Performed 06/03/2016) * PATHOLOGY/GENETICS HISTORICAL-ONBASE(Performed 06/03/2016) * EKG 12-LEAD(Performed 07/06/2015) * COMPREHENSIVE METABOLIC PANEL(Performed 07/03/2015) * LIPID PROFILE(Performed 07/03/2015) * URINALYSIS W/MICROSCOPIC REFLEX TO CULTURE(Performed 07/03/2015) * CBC W AUTO DIFFERENTIAL(Performed 07/03/2015) * CULTURE URINE REFLEXED(Performed 07/03/2015) * DERMATOPATHOLOGY(Performed 05/04/2015) * HEMOGLOBIN A1C(Performed 12/05/2013) * DERMATOPATHOLOGY(Performed 12/26/2012) * PATHOLOGY/GENETICS HISTORICAL-ONBASE(Performed 09/15/2011) * DERMATOPATHOLOGY(Performed 09/09/2011) * PATHOLOGY/GENETICS HISTORICAL-ONBASE(Performed 03/23/2011) * PATHOLOGY/GENETICS HISTORICAL-ONBASE(Performed 03/23/2011) * PATHOLOGY/GENETICS HISTORICAL-ONBASE(Performed 03/23/2011) * PATHOLOGY/GENETICS HISTORICAL-ONBASE(Performed 03/23/2011) * LIPID PROFILE(Performed 10/02/1998) * HEMOGLOBIN A1C(Performed 10/02/1998) * GLUCOSE PLASMA(Performed 10/02/1998) * HEPATIC FUNCTION PANEL(Performed 10/02/1998) * LIPID PROFILE(Performed 10/02/1998) * CALCIUM BLOOD(Performed 10/02/1998) * LIPID PROFILE(Performed 10/02/1998) * CREATININE BLOOD(Performed 10/02/1998) Results * (ABNORMAL) GLUCOSE - POINT OF CARE (09/19/2024 11:59 AM [facility]) Only the most recent of15 resultswithin the time period is included. Glucose WB/POC 107(H) 70 - 99 mg/dL 09/30/2024 7:07 AM [facility] Specimen Type Cap Fingerstick 2023 7:07 AM [facility] Blood BLOOD SPECIMEN / Unknown 09/19/2024 11:59 AM [facility] 09/30/2024 7:07 AM [facility] Andre Fisher MD LAB - POINT OF CARE ORDERABLES [facility] [address], [place] [id number] * (ABNORMAL) RENAL FUNCTION PANEL (09/17/2024 4:57 AM [facility]) Only the most recent of5 resultswithin the time period is included. Pathologist [facility] Glucose 87 70 - 99 mg/dL 09/17/2024 5:51 AM [facility] Sodium 140 136 - 145 mmol/L 09/17/2024 5:51 AM [facility] Potassium 4.1 3.5 - 5.1 mmol/L 09/17/2024 5:51 AM [facility] Chloride 110(H) 98 - 107 mmol/L 09/17/2024 5:51 AM [facility] CO2 22 22 - 29 mmol/L 09/17/2024 5:51 AM [facility] Calcium 8.8 8.4 - 10.4 mg/dL 09/17/2024 5:51 AM [facility] Anion Gap 8 6 - 16 mmol/L 09/17/2024 5:51 AM [facility] BUN 26 7 - 26 mg/dL 09/17/2024 5:51 AM [facility] Creatinine 0.87 0.72 - 1.25 mg/dL 09/17/2024 5:51 AM [facility] Albumin 3.0(L) 3.4 - 5.0 gm/dL 09/17/2024 5:51 AM [facility] Phosphorus 3.1 2.5 - 4.5 mg/dL 09/17/2024 5:51 AM [facility] eGFR by CKD-EPI 83(L) >=90 mL/min/1.7 3 m2 09/17/2024 5:51 AM [facility] Blood BLOOD SPECIMEN / Unknown Lab Venipuncture / Unknown 09/17/2024 4:57 AM [facility] 09/17/2024 5:23 AM [facility] Melissa Alvarez MD LAB - CHEMISTRY LISANDRO HUGHES [facility] Organization Address City/State/ZIP Co de Phone Number [facility] [address] [place] [address] * (ABNORMAL) CBC W/O DIFFERENTIAL (09/16/2024 3:04 AM [facility]) Only the most recent of7 resultswithin the time period is included. WBC 10.1 4.0 - 10.7 x10E9/L 09/16/2024 4:05 AM [facility] RBC Count 2.76(L) 4.30 - 5.80 x10E12/L 09/16/2024 4:05 AM [facility] Hemoglobin 8.6(L) 13.3 - 17.5 g/dL 09/16/2024 4:05 AM [facility] Hematocrit 26.1(L) 38.7 - 51.1 % 09/16/2024 4:05 AM [facility] MCV 94.6 80.0 - 98.0 fL 09/16/2024 4:05 AM [facility] MCH 31.2 26.7 - 33.6 pg 09/16/2024 4:05 AM [facility] MCHC 33.0 31.7 - 36.3 g/dL 09/16/2024 4:05 AM [facility] RDW-CV 13.9 11.3 - 14.8 % 09/16/2024 4:05 AM [facility] Platelet Count 315 150 - 420 x10E9/L 09/16/2024 4:05 AM [facility] MPV 9.6 7.8 - 11.4 fL 09/16/2024 4:05 AM [facility] Blood BLOOD SPECIMEN / Unknown Lab Venipuncture / Unknown 09/16/2024 3:04 AM [facility] 09/16/2024 3:47 AM [facility] Kalee GRANDE LAB - HEMATO LOGY ORDERABLES [facility] [address], [place] [id number] * (ABNORMAL) BASIC METABOLIC PANEL (CALCIUM TOTAL) (09/16/2024 3:04 AM [facility]) Only the most recent of4 resultswithin the time period is included. [facility] Glucose 94 70 - 99 mg/dL 09/16/2024 4:17 AM [facility] Sodium 137 136 - 145 mmol/L 09/16/2024 4:17 AM [facility] Potassium 4.1 3.5 - 5.1 mmol/L 09/16/2024 4:17 AM [facility] Chloride 107 98 - 107 mmol/L 09/16/2024 4:17 AM [facility] CO2 24 22 - 29 mmol/L 09/16/2024 4:17 AM [facility] Calcium 8.4 8.4 - 10.4 mg/dL 09/16/2024 4:17 AM [facility] Anion Gap 6 6 - 16 mmol/L 09/16/2024 4:17 AM [facility] BUN 30(H) 7 - 26 mg/dL 09/16/2024 4:17 AM [facility] Creatinine 1.38(H) 0.72 - 1.25 mg/dL 09/16/2024 4:17 AM [facility] eGFR by CKD-EPI 49(L) >=90 mL/min/1.7 3 m2 09/16/2024 4:17 AM [facility] Blood BLOOD SPECIMEN / Unknown Lab Venipuncture / Unknown 09/16/2024 3:04 AM [facility] 09/16/2024 3:47 AM [facility] Kalee A Mor ELECTRICAL AND INSTRUMENTATION MECHANIC-HEALTH AND SAFETY REPRESENTATIVE LAB - CHEMIS TRY ORDERABLES [facility] [address] [place] [address] * (ABNORMAL) CBC W AUTO DIFFERENTIAL (09/15/2024 12:56 PM [facility]) Only the most recent of5 resultswithin the time period is included. WBC 10.2 4.0 - 10.7 x10E9/L 09/15/2024 1:05 PM [facility] RBC Count 2.82(L) 4.30 - 5.80 x10E12/L 09/15/2024 1:05 PM [facility] Hemoglobin 8.9(L) 13.3 - 17.5 g/dL 09/15/2024 1:05 PM [facility] Hematocrit 27.3(L) 38.7 - 51.1 % 09/15/2024 1:05 PM [facility] MCV 96.8 80.0 - 98.0 fL 09/15/2024 1:05 PM [facility] MCH 31.6 26.7 - 33.6 pg 09/15/2024 1:05 PM [facility] MCHC 32.6 31.7 - 36.3 g/dL 09/15/2024 1:05 PM [facility] RDW-CV 14.0 11.3 - 14.8 % 09/15/2024 1:05 PM [facility] Platelet Count 275 150 - 420 x10E9/L 09/15/2024 1:05 PM [facility] MPV 9.5 7.8 - 11.4 fL 09/15/2024 1:05 PM [facility] Neutrophil % 81.4(H) 41.0 - 74.0 % 09/15/2024 1:05 PM [facility] Lymphocyte % 9.2(L) 17.0 - 47.0 % 09/15/2024 1:05 PM [facility] Monocyte % 5.7 3.0 - 11.0 % 09/15/2024 1:05 PM [facility] Eosinophil % 2.3 0.0 - 7.0 % 09/15/2024 1:05 PM [facility] Basophil % 0.5 0.0 - 1.6 % 09/15/2024 1:05 PM [facility] Immature Granulocytes % 0.9 0.0 - 1.0 % 09/15/2024 1:05 PM [facility] Neutrophil Absolute 8.31(H) 1.60 - 7.50 x10E9/L 09/15/2024 1:05 PM [facility] Lymphocyte Absolute 0.94(L) 1.00 - 4.40 x10E9/L 09/15/2024 1:05 PM [facility] Monocyte Absolute 0.58 0.15 - 1.00 x10E9/L 09/15/2024 1:05 PM [facility] Eosinophil Absolute 0.23 0.00 - 0.60 x10E9/L 09/15/2024 1:05 PM [facility] Basophil Absolute 0.05 0.00 - 0.13 x10E9/L 09/15/2024 1:05 PM [facility] Blood BLOOD SPECIMEN / Unknown Lab Venipuncture / Unknown 09/15/2024 12:56 PM [facility] 09/15/2024 1:00 PM [facility] Kalee Juares ELECTRICAL AND INSTRUMENTATION MECHANIC-HEALTH AND SAFETY REPRESENTATIVE LAB - HEMATO LOGY ORDERABLES Performing Organization Address City/State/[facility] Co de Phone Number [facility] [address] [place] [address] * (ABNORMAL) COMPREHENSIVE METABOLIC PANEL (09/15/2024 11:20 AM [facility]) Only the most recent of4 resultswithin the time period is included. Glucose 101(H) 70 - 99 mg/dL 09/15/2024 12:16 PM [facility] Sodium 137 136 - 145 mmol/L 09/15/2024 12:16 PM [facility] Potassium 4.7 3.5 - 5.1 mmol/L 09/15/2024 12:16 PM [facility] Chloride 106 98 - 107 mmol/L 09/15/2024 12:16 PM [facility] CO2 25 22 - 29 mmol/L 09/15/2024 12:16 PM [facility] Calcium 8.4 8.4 - 10.4 mg/dL 09/15/2024 12:16 PM [facility] Anion Gap 6 6 - 16 mmol/L 09/15/2024 12:16 PM [facility] BUN 32(H) 7 - 26 mg/dL 09/15/2024 12:16 PM [facility] Creatinine 1.71(H) 0.72 - 1.25 mg/dL 09/15/2024 12:16 PM [facility] Alkaline Phosphatase 122 40 - 150 U/L 09/15/2024 12:16 PM [facility] ALT 13 0 - 55 U/L 09/15/2024 12:16 PM [facility] AST 25 5 - 34 U/L 09/15/2024 12:16 PM [facility] Protein Total 5.7(L) 6.4 - 8.3 gm/dL 09/15/2024 12:16 PM [facility] Albumin 2.8(L) 3.4 - 5.0 gm/dL 09/15/2024 12:16 PM [facility] Bilirubin Total 0.4 0.2 - 1.2 mg/dL 09/15/2024 12:16 PM [facility] eGFR by CKD-EPI 38(L) >=90 mL/min/1.7 3 m2 09/15/2024 12:16 PM [facility] Blood BLOOD SPECIMEN / Unknown Lab Venipuncture / Unknown 09/15/2024 11:20 AM [facility] 09/15/2024 11:52 AM [facility] Kalee Juares ELECT[employer]ICAL AND INSTRUMENTATION MECHANIC-HEALTH AND SAFETY REPRESENTATIVE LAB - CHEMIS TRY ORDERABLES Performing Organization Address City/State/[facility] Co de Phone Number [facility] [address] [place] [phone] * CT Head Wo Contrast (09/14/2024 5:31 PM [facility]) Only the most recent of3 resultswithin the time period is included. 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 [...] 09/14/2024 5:46 PM Narrative 09/14/2024 5:46 PM [facility] PROCEDURE: ??CT HEAD WO CONTRAST, DATE/TIME OF EXAM: ??09/14/2024 5:32 PM, LOCATION ??[facility] INDICATION: W19.XXXA: Fall, initial encounter ADDITIONAL [...] DATE/TIME OF EXAM: 09/14/2024 5:32 PM, LOCATION [facility] INDICATION: W19.XXXA: Fall, initial encounter ADDITIONAL [...] HIGH SENSITIVE REFLEX 1HOUR (09/14/2024 3:45 PM [facility]) Troponin I High Sensitive 10 <=35 ng/L 09/14/2024 4:41 PM [facility] [place] Troponin I HS 09/14/2024 4:41 PM [facility] Comment:Delta value intentio shahida not calculated. Baseline to 1 hour specimen collection interval exceeded. Blood BLOOD SPECIMEN / Unknown Venipuncture / Unknown 09/14/2024 3:45 PM [facility] 09/14/2024 4:04 PM [facility] Eloy Ricardo MD LAB - CHEMISTRY ORD ERABLES [facility] [address] [place] [address], [facility] [phone] * (ABNORMAL) TEG 6S PLATELET MAPPING (09/14/2024 3:45 PM [facility]) Only the most recent of2 resultswithin the time period is included. TEGPLM (Max Amplitude) [place] 69.2(H) 53.0 - 68.0 mm 09/14/2024 4:42 PM [facility] TEGPLM (Max Amplitude) ACTF 20.7(H) 2.0 - 19.0 mm 09/14/2024 4:42 PM [facility] TEGPLM (Max Amplitude) ADP 66.9 45.0 - 69.0 mm 09/14/2024 4:42 PM [facility] TEGPLM (Max Amplitude) AA 49.3(L) 51.0 - 71.0 mm 09/14/2024 4:42 PM [facility] Comment:AA MA below normal r abdi. Inhibition present. TEGPLM %Inhibition ADP 4.7 0.0 - 17.0 % 09/14/2024 4:42 PM [facility] TEGPLM %Inhibition AA 41.0(H) 0.0 - 11.0 % 09/14/2024 4:42 PM [facility] TEGPLM %Aggregation ADP 95.3 83.0 - 100.0 % 09/14/2024 4:42 PM [facility] TEGPLM % Aggregation AA 59.0(L) 89.0 - 100.0 % 09/14/2024 4:42 PM [facility] Blood BLOOD SPECIMEN / Unknown Venipuncture / Unknown 09/14/2024 3:45 PM [facility] 09/14/2024 4:04 PM [facility] Eloy Ricardo MD LAB - HEMATOLOGY OR DERABLES [facility] [address] [place] [address], [facility] [phone] * XR CHEST 1VW PORTABLE (09/14/2024 2:49 PM [facility]ITAL[facility]) Only the most recent of2 resultswithin the time period is included. Anatomical Region Laterality Modality Chest Digital Radiogra phy 09/14/2024 5:40 PM [facility] Narrative 09/14/2024 8:37 PM [facility] PROCEDURE: ??XR CHEST 1VW PORTABLE, DATE/TIME OF EXAM: ??09/14/2024 2:49 PM, LOCATION ??[facility] INDICATION: W19.XXXA: Fall, initial encounter ADDITIONAL CLINICAL INFORMATION: Ordering Provider Reason For Exam: ??rule out pna COMPARISON: X-ray chest 08/27/2024. TECHNIQUE: Frontal radiograph of the chest. FINDINGS/IMPRESSION: There is no focal consolidation, pleural effusion, or pneumothorax. The cardiac silhouette is normal. There is atherosclerotic calcification of the aorta. The visible bony thorax is intact. Report dictated by Wesley Renner MD, (Process Development Chemist). IJason MD have personally reviewed and interpreted this examination/study. > Interpreting Provider: Jason Mina MD on 09/14/2024 8:37 PM Procedure Note Jason Mina MD - 09/14/2024 PROCEDURE: XR CHEST 1VW PORTABLE, DATE/TIME OF EXAM: 09/14/2024 2:49PM, LOCATION [facility] INDICATION: W19.XXXA: Fall, initial encounter ADDITIONAL CLINICAL INFORMATION: Ordering Provider Reason For Exam: rule out pna COMPARISON: X-ray chest 08/27/2024. TECHNIQUE: Frontal radiograph of the chest. FINDINGS/IMPRESSION: There is no focal consolidation, pleural effusion, or pneumothorax. The cardiac silhouette is normal. There is atherosclerotic calcification ofthe aorta. The visible bony thorax is intact. Report dictated by Wesley Renner MD, (Process Development Chemist). I, Jason Mina MD have personally reviewed and interpreted this examination/study. > Interpreting Provider: Jason Mina MD on 09/14/2024 8:37 PM Eloy Ricardo MD DIAGNOSTIC IMAGING ORDERABLES * PT-INR [facility] (09/14/2024 1:44 PM [facility]) Only the most recent of8 resultswithin the time period is included. PT 13.7 12.1 - 14.8 Seconds 09/14/2024 2:12 PM [facility] INR 1.1 See Comment 09/14/2024 2:12 PM [facility] Comment:The suggested therap eutic range for standard coumadin (warfarin) therapy is an INR of 2.0-3.0. For high-risk patients (Mechanical Mitral Valve Prosthesis, etc.), the suggested prophylactic therapeutic range is an INR of 2.5-3.5. Blood BLOOD SPECIMEN / Unknown Venipuncture / Unknown 09/14/2024 1:44 PM [facility] 09/14/2024 1:50 PM [facility] Eloy Ricardo MD LAB - COAGULATION O RDERABLES [facility] [address] [place] [address], [facility] [phone] * URINALYSIS REFLEX MICROSCOPIC REFLEX CULTURE (09/14/2024 1:35 PM [facility]) Only the most recent of2 resultswithin the time period is included. Color UA Yellow Straw, Yellow 09/14/2024 2:01 PM [facility] Clarity UA Clear Clear 09/14/2024 2:01 PM [facility] Specific [place] UA 1.010 1.005 - 1.030 09/14/2024 2:01 PM [facility] pH UA 5.0 5.0 - 8.0 pH 09/14/2024 2:01 PM [facility] Protein UA Negative Negative 09/14/2024 2:01 PM [facility] Glucose UA Negative Negative 09/14/2024 2:01 PM [facility] Ketone UA Negative Negative 09/14/2024 2:01 PM [facility] Bilirubin UA Negative Negative 09/14/2024 2:01 PM [facility] Blood UA Negative Negative 09/14/2024 2:01 PM [facility] Nitrite UA Negative Negative 09/14/2024 2:01 PM [facility] Leukocyte Esterase Negative Negative 09/14/2024 2:01 PM [facility] Urobilinogen UA Negative Negative mg/dL 09/14/2024 2:01 PM [facility] Comment UA Microscopic not indicated. 09/14/2024 2:01 PM [facility] Urine URINE SPECIMEN OBTAINED BY CLEAN CATCH PROCEDURE / Unknown Collection / Unknown 09/14/2024 1:35 PM [facility] 09/14/2024 1:50 PM [facility] - 09/14/2024 2:01 PM [facility] Eloy Ricardo MD LAB - URINALYSIS OR DERABLES [address] [address], [facility] [phone] * TEG 6 GLOBAL HEMOSTASIS W/ LYSIS (09/14/2024 1:34 PM [facility]ITAL[facility]) Only the most recent of2 resultswithin the time period is included. Citrated Kaolin R (Reaction Time) 6.2 4.6 - 9.1 min 09/14/2024 2:54 PM [facility] Citrated Kaolin LY30 (Lysis) 0.6 0.0 - 2.6 % 09/14/2024 2:54 PM [facility] Citrated Functional Fibrinogen MA (Max Amplitude) 30.7 15.0 - 32.0 mm 09/14/2024 2:54 PM [facility] Citrated RapidTEG MA (Max Amplitude) 69.2 52.0 - 70.0 mm 09/14/2024 2:54 PM [facility] Blood BLOOD SPECIMEN / Unknown Venipuncture / Unknown 09/14/2024 1:34 PM [facility] 09/14/2024 1:50 PM [facility] Eloy Ricardo MD LAB - HEMATOLOGY OR DERABLES Performing Organization Address City/[facility]/ZIP Co de Phone Number [facility] [address] [place] [address], [place] [phone] * TROPONIN-I HIGH SENSITIVE BASELINE + 1HR (09/14/2024 1:34 PM [facility]ITAL[facility]) [facility] Troponin I High Sensitive 10 <=35 ng/L 09/14/2024 2:24 PM [facility] Blood BLOOD SPECIMEN / Unknown Venipuncture / Unknown 09/14/2024 1:34 PM [facility] 09/14/2024 1:50 PM [facility] Eloy Ricardo MD LAB - CHEMISTRY ORD ERABLES Performing Organization Address [facility] Co de Phone Number [address] [address], [place] [phone] * TYPE + SCREEN PANEL (09/14/2024 1:34 PM [facility]) Only the most recent of2 resultswithin the time period is included. [facility] Antibody Screen NEG 2:38 PM [facility]OD [facility] LAB ABO Rh B POS 09/14/2024 2:38 PM [facility] Blood Bank BLOOD SPECIMEN / Unknown Venipuncture / Unknown 09/14/2024 1:34 PM [facility] 09/14/2024 1:51 PM [facility] Eloy Ricardo MD LAB - BLOOD BANK OR DERABLES Performing Organization Address [facility]/ZIP Co de Phone Number [facility] [address] [place] [address], [place] [phone] * (ABNORMAL) LIPASE BLOOD (09/14/2024 1:34 PM [facility]ITAL[facility]) [facility] Lipase 80(H) 8 - 78 U/L 09/14/2024 2:20 PM [facility] Blood BLOOD SPECIMEN / Unknown Venipuncture / Unknown 09/14/2024 1:34 PM [facility] 09/14/2024 1:50 PM [facility] Narrative [facility] - 09/14/2024 2:20 PM [facility] Lipase results from the [employer]ar[employer] Alinity analyzer may not be comparable with other methodologies. Eloy Ricardo MD LAB - CHEMISTRY ORD ERABLES [facility] [address] [place] [address], [facility] [phone] * VAS Left Venous Duplex Ue (09/09/2024 11:37 AM [facility]) Anatomical Region Laterality Modality Upper Extremity Ultrasound 09/09/2024 9:48 AM [facility] Narrative Procedure Note Tunde Scott MD - 09/09/2024 Issa Taveras MD VASCULAR LAB ORDERAB LES * LEVETIRACETAM LEVEL (09/09/2024 6:43 AM HOS[facility]ITAL[facility]) Levetiracetam 21 10 - 40 ug/mL 09/11/2024 5:37 AM HOS[facility]ITAL[facility] [employer] ([facility]) Comment: INTERPRETIVE INFORMATION: Keppra (Levetiracetam) Therapeutic Range: ??10-40 ug/mL ?Toxic: ??Not well Established Pharmacokinetics of levetiracetam are affected by renal function. Adverse effects may include somnolence, weakness, headache and vomiting. This levetiracetam (Keppra) immunoassay uses the [employer] reagents, which has known cross-reactivity with the drug brivaracetam (Briviact) and may report inaccurate results. Patients transitioning from levetiracetam to brivaracetam or those who are using both medications should not monitor drug concentrations with the [employer] assay. These patients should be monitored using a validated chromatographic methodology that distinguishes between drugs to determine drug concentrations. Performed By: [facility] [address] [place] [address] Process Project Engineer: Carlos A Alamo MD, PhD CLIA Number: [id number] Blood BLOOD SPECIMEN / Unknown Lab Venipuncture / Unknown 09/09/2024 6:43 AM [facility] 09/09/2024 6:54 AM [facility] Baljit Pratt MD LAB - THERAPEUTIC DR [place] MONITORING ORDERABLES Performing Organization Address [facility]/ZIP Co de Phone Number [facility] ([facility]) [address] [place], [place] [address] * CULTURE BLOOD (09/08/2024 8:07 PM HOSPITALITY HOST) Pathologist [facility] Culture No growth day 5 GENE 09/14/2024 1:30 AM HOSPITAL[facility] HOST [facility] MICROBIOLOGY Blood PERIPHERAL BLOOD / Unknown Lab Venipuncture / Unknown 09/08/2024 8:07 PM [facility] 09/08/2024 9:01 PM [facility] Baljit Pratt MD LAB - MICROBIOLOGY O RDERABLES Performing Organization Address [facility]/ZIP Co de Phone Number [facility] MICROBIOLOGY [address] [place] [id number], [facility] [phone] * (ABNORMAL) FOLATE (09/08/2024 8:07 PM HOS[facility]ITAL[facility] HOST) Pathologist [facility] Folate 5.8(L) 7.0 - 31.4 ng/mL 09/08/2024 10:55 PM [facility]ITAL[facility] Blood BLOOD SPECIMEN / Unknown Lab Venipuncture / Unknown 09/08/2024 8:07 PM [facility] 09/08/2024 9:11 PM [facility] Baljit Pratt MD LAB - CHEMISTRY LISANDRO HUGHES Performing Organization Address City/[facility]/ZIP Co de Phone Number [place] [id number] [place] [address], [facility] [phone] * VITAMIN B12 (09/08/2024 8:07 PM HOS[facility]ITAL[facility] HOST) Pathologist [facility] Vitamin B12 603 213 - 816 pg/mL 09/08/2024 10:55 PM [facility]ITAL[facility] Blood BLOOD SPECIMEN / Unknown Lab Venipuncture / Unknown 09/08/2024 8:07 PM [facility] 09/08/2024 9:11 PM [facility] Baljit Pratt MD LAB - CHEMISTRY LISANDRO HUGHES Performing Organization Address City/[facility]/ZIP Co de Phone Number [facility] [address] [place] [address], [place] [phone] * (ABNORMAL) IRON + TRANSFERRIN PANEL (09/08/2024 8:07 PM [facility]ITAL[facility]) Iron 48(L) 50 - 175 ug/dL 09/08/2024 10:22 PM [facility] Transferrin 144(L) 174 - 382 mg/dL 09/08/2024 10:22 PM [facility] Transferrin Saturation % 27 16 - 50 % 09/08/2024 10:22 PM [facility] TIBC Calculated 180(L) 240 - 450 ug/dL 09/08/2024 10:22 PM [facility] Blood BLOOD SPECIMEN / Unknown Lab Venipuncture / Unknown 09/08/2024 8:07 PM [facility] 09/08/2024 9:01 PM [facility] Baljit Pratt MD LAB - CHEMISTRY LISANDRO HUGHES Performing Organization Address City/[facility]/ZIP Co de Phone Number [facility] [address] [place] [address], [place] [phone] * PHOSPHORUS BLOOD (09/08/2024 5:45 AM HOS[facility]ITAL[facility]) Only the most recent of2 resultswithin the time period is included. Phosphorus 3.2 2.8 - 5.1 mg/dL 09/08/2024 6:56 AM [facility]ITAL[facility] Blood BLOOD SPECIMEN / Unknown Lab Venipuncture / Unknown 09/08/2024 5:45 AM [facility] 09/08/2024 6:21 AM [facility] Issa Taveras MD LAB - CHEMISTRY L[facility]DRO HUGHES [facility] [address] [place] [address], [place] [phone] * MAGNESIUM BLOOD (09/08/2024 5:45 AM HOS[facility]ITAL[facility]) Only the most recent of2 resultswithin the time period is included. Magnesium 1.8 1.6 - 2.6 mg/dL 09/08/2024 6:56 AM [facility]ITAL[facility] Blood BLOOD SPECIMEN / Unknown Lab Venipuncture / Unknown 09/08/2024 5:45 AM [facility] 09/08/2024 6:21 AM [facility] Issa Taveras MD LAB - CHEMISTRY LISANDRO HUGHES Performing Organization Address [facility]/ZIP Co de Phone Number [facility] [address] [place] [address], [place] [phone] * (ABNORMAL) URINE MICROSCOPIC ONLY REFLEX TO CULTURE (09/07/2024 6:37 PM HOS[facility]ITAL[facility]) [facility] Reflex Status Culture to follow 09/07/2024 7:26 PM [facility]ITAL[facility] WBC UA 11-20(A) None Seen, 0-5 /HPF 09/07/2024 7:26 PM [facility] Bacteria UA Trace(A) None /HPF 09/07/2024 7:26 PM [facility]ITAL[facility] Squamous Epithelial Cells UA None Seen None Seen, 0-2, 3-5 /HPF 09/07/2024 7:26 PM [facility]ITAL[facility] Urine URINE SPECIMEN OBTAINED BY CLEAN CATCH PROCEDURE / Unknown Collection / Unknown 09/07/2024 6:37 PM [facility] 09/07/2024 6:51 PM [facility] Narrative [facility] - 09/07/2024 7:26 PM [facility]ITAL[facility]OST Escobar Sorto MD LAB - URINALYSIS ORD SHELBI [facility] [address] [place] [address], [place] [phone] * (ABNORMAL) CULTURE URINE (09/07/2024 6:37 PM HOS[facility]ITAL[facility]) Culture Urine >100,000 CFU/mL Staphylococcus aureus(A) GENE 09/09/2024 2:23 PM HOS[facility]ITAL[facility]OST [facility] MICROBIOLOGY Comment:Staphylococcus aureu s methicillin-susceptible (MSSA) detected by penicillin binding protein immunoassay. Culture Urine 10,000-50,000 CFU/mL urogenital prema GENE 09/09/2024 2:23 PM H[facility]ITAL[facility]OST [facility]CRO[facility] Urine URINE SPECIMEN OBTAINED BY CLEAN CATCH PROCEDURE / Unknown Collection / Unknown 09/07/2024 6:37 PM [facility] 09/07/2024 7:26 PM [facility] Narrative [facility] - 09/09/2024 2:23 PM [facility]ITAL[facility] Staphylococcus aureus in urine may represent underlying [...] Sorto MD LAB - MICROBIOLOGY O RDERABLES [facility] [address] [place], [place] [address], [facility] [phone] * XR Humerus Left 2Vw or More (09/07/2024 6:31 PM HOS[facility]ITAL[facility]) Anatomical Region Laterality Modality Upper Extremity Digital Radiogra phy 09/07/2024 6:56 PM [facility] Impressions 09/07/2024 9:40 PM [facility] IMPRESSION: No acute humeral fracture identified. Report dictated by Dante Mcclain MD, (transporter radiology). IJason MD have personally reviewed and interpreted this examination/study. > Interpreting Provider: Jason Mina MD on 09/07/2024 9:40 PM Narrative 09/07/2024 9:40 PM [facility] PROCEDURE: ??XR HUMERUS LEFT 2VW OR MORE, DATE/TIME OF EXAM: ??09/07/2024 6:31 PM, LOCATION ??[facility] INDICATION: M79.89: Left arm swelling ADDITIONAL CLINICAL INFORMATION: Ordering Provider Reason For Exam: ??swelling Technologist Note: Additional: COMPARISON: None. FINDINGS: The humerus is intact without acute fracture. Bone density and texture are normal. No soft tissue swelling. Procedure Note Jason Mina MD - 09/07/2024 PROCEDURE: XR HUMERUS LEFT 2VW OR MORE, DATE/TIME OF EXAM: 46:31 PM, LOCATION [facility] INDICATION: M79.89: Left arm swelling ADDITIONAL CLINICAL INFORMATION: Ordering Provider Reason For Exam: swelling Technologist Note: Additional: COMPARISON: None. FINDINGS: The humerus is intact without acute fracture. Bone density and textureare normal. No soft tissue swelling. IMPRESSION: No acute humeral fracture identified. Report dictated by Dante Mcclain MD, MD (transporter radiology). IJason MD have personally reviewed and interpreted this examination/study. > Interpreting Provider: Jason Mina MD on 09/07/2024 9:40 PM Escobar Sorto MD DIAGNOSTIC IMAGING O RDERABLES * PTT [facility] (09/07/2024 5:14 PM HOS[facility]ITAL[facility]OST) Only the most recent of2 resultswithin the time period is included. APTT 30.2 23.0 - 38.4 Seconds 09/07/2024 5:42 PM HOS[facility]ITAL[facility]OST [facility] Comment:Suggested therapeuti c range for full dose I.V. unfractionated heparin therapy for venous thromboembolism is 71 to 109 seconds. Blood BLOOD SPECIMEN / Unknown Venipuncture / Unknown 09/07/2024 5:14 PM [facility] 09/07/2024 5:19 PM [facility] Escobar Sorto MD LAB - COAGULATION OR DERABLES [facility] [address] [place] [address], [facility] [phone] * (ABNORMAL) C-REACTIVE PROTEIN (09/07/2024 5:14 PM HOS[facility]ITAL[facility]) [facility] C-Reactive Protein 3.8(H) <=0.5 mg/dL 09/07/2024 5:57 PM [facility] Blood BLOOD SPECIMEN / Unknown Venipuncture / Unknown 09/07/2024 5:14 PM [facility] 09/07/2024 5:23 PM [facility] Escobar Sorto MD LAB - CHEMISTRY LISANDRO HUGHES [facility] [address] [place] [address], [facility] [phone] * (ABNORMAL) D-DIMER (09/07/2024 5:14 PM HOS[facility]ITAL[facility]) [facility] D-Dimer Quantitative 1.16(H) <=0.50 mcg/mL FEU 09/07/2024 6:35 PM [facility]ITAL[facility] Comment: In the absence of clinical [...] Unknown Venipuncture / Unknown 09/07/2024 5:14 PM [facility] 09/07/2024 5:19 PM [facility] Escobar Sorto MD LAB - COAGULATION OR DERABLES Performing Organization Address City/[facility]/ZIP Co de Phone Number [address] [address], [facility] [phone] * (ABNORMAL) ERYTHROCYTE SEDIMENTATION RATE (09/07/2024 5:14 PM HOSPITAL[facility]OST) Erythrocyte Sedimentation Rate Westergren 55(H) 0 - 20 MM/HR 09/07/2024 5:41 PM [facility]ITAL[facility]OST [facility] Blood BLOOD SPECIMEN / Unknown Venipuncture / Unknown 09/07/2024 5:14 PM [facility] 09/07/2024 5:19 PM [facility] Escobar Sorto MD LAB - HEMATOLOGY ORD ERABLES Performing Organization Address City/[facility]/ZIP Co de Phone Number [address] [address], [facility] [phone] * MRI Brain Wwo Contrast (09/05/2024 9:33 AM HOSPITAL[facility] HOST) Anatomical Region Laterality Modality Head Magnetic Resonan ce 09/06/2024 7:33 AM [facility] Impressions 09/06/2024 7:49 AM [facility] IMPRESSION: 1.Redemonstration of bilateral frontal convexity subdural [...] 09/06/2024 7:49 AM Narrative 09/06/2024 7:49 AM [facility] PROCEDURE: ??MRI BRAIN WWO CONTRAST, DATE/TIME OF EXAM: ??09/05/2024 9:34 AM, LOCATION ??[facility] INDICATION: R41.82: Altered mental status, unspecified [...] CONTRAST, DATE/TIME OF EXAM: 09/05/2024 9:34AM, LOCATION [facility] INDICATION: R41.82: Altered mental status, unspecified [...] ORDERABLES * EKG 12-LEAD (08/30/2024 1:59 PM HOSPITAL[facility] HOST) Only the most recent of2 resultswithin the time period is included. Ventricular Rate 57 BPM [facility] Atrial Rate 57 BPM [facility] P-R Interval 206 ms [facility] QRS Duration ms 94 ms [facility] Q-T Interval ms 458 ms [facility] QTC Calculation (Bezet) 445 ms [facility] Calculated P [place] 8 degrees [facility] Calculated R [place] -3 degrees [facility] Calculated T [place] 44 degrees [facility] Interpretation EKG POOR DATA QUALITY, INTERPRETATION MAY BE ADVERSELY AFFECTED SINUS BRADYCARDIA INFERIOR INFARCT , AGE UNDETERMINED ABNORMAL ECG NO PREVIOUS ECGS AVAILABLE Confirmed by ERVIN ROMERO DO ([id number]) on 09/04/2024 9:29:42 PM [facility] 08/30/2024 1:59 PM [facility] 09/04/2024 9:29 PM [facility] Amanda Dacosta MD ECG ORDERABLES [facility] * XR Ankle Left 3Vw or More (08/30/2024 10:22 AM HOS[facility]ITAL[facility] HOST) Only the most recent of2 resultswithin the time period is included. Anatomical Region Laterality Modality Lower Extremity Digital Radiogra phy 08/30/2024 11:1 1 AM [facility] Impressions 08/30/2024 11:12 AM [facility] IMPRESSION: No fracture or subluxation or dislocation seen; no suspicious radiopaque foreign body identified. > Interpreting Provider: Tyree Tyler on 08/30/2024 11:12 AM Narrative 08/30/2024 11:12 AM [facility] PROCEDURE: ??XR ANKLE LEFT 3VW OR MORE [...] TO MICROSCOPIC NO CULTURE (08/28/2024 8:52 PM HOSPITAL[facility] HOST) Color UA Yellow Straw, Yellow 08/28/2024 9:35 PM [facility] Clarity UA Clear Clear 08/28/2024 9:35 PM [facility] Specific [place] UA 1.035(H) 1.005 - 1.030 08/28/2024 9:35 PM [facility] pH UA 5.0 5.0 - 8.0 pH 08/28/2024 9:35 PM [facility] Protein UA Negative Negative 08/28/2024 9:35 PM [facility] Glucose UA Negative Negative 08/28/2024 9:35 PM [facility] Ketone UA 1+(A) Negative 08/28/2024 9:35 PM [facility] Bilirubin UA Negative Negative 08/28/2024 9:35 PM [facility] Blood UA Negative Negative 08/28/2024 9:35 PM [facility] Nitrite UA Negative Negative 08/28/2024 9:35 PM [facility] Leukocyte Esterase Negative Negative 08/28/2024 9:35 PM [facility] Urobilinogen UA 2.0(A) Negative mg/dL 08/28/2024 9:35 PM [facility] RBC UA 0-2 None Seen, 0-2, 3-5 /HPF 08/28/2024 9:35 PM [facility] WBC UA 0-5 None Seen, 0-5 /HPF 08/28/2024 9:35 PM [facility] Squamous Epithelial Cells UA None Seen None Seen, 0-2, 3-5 /HPF 08/28/2024 9:35 PM [facility] Mucus UA 1+ /LPF 08/28/2024 9:35 PM [facility] Urine URINE SPECIMEN OBTAINED BY CLEAN CATCH PROCEDURE / Unknown Collection / Unknown 08/28/2024 8:52 PM [facility] 08/28/2024 9:24 PM [facility] - 08/28/2024 9:35 PM [facility]OST Lincoln Rocha MD LAB - URINALYSIS OR DERABLES Performing Organization Address City/State/[facility] Co de Phone Number [facility] [address] [place] [address] [phone] * (ABNORMAL) URINE DRUG SCREEN IMMUNOASSAY (08/28/2024 8:52 PM HOS[facility]ITAL[facility]) Amphetamines Screen Urine Negative Negative : < 1000 ng/mL 08/28/2024 9:45 PM [facility] Barbiturates Screen Urine Negative Negative : < 200 ng/mL 08/28/2024 9:45 PM [facility] Benzodiazepine Screen Urine Negative Negative : < 200 ng/mL 08/28/2024 9:45 PM [facility] Opiates Urine Negative Negative : < 300 ng/mL 08/28/2024 9:45 PM [facility] Cocaine Metabolites Urine Negative Negative : < 300 ng/mL 08/28/2024 9:45 PM [facility] Phencyclidine Screen Urine Negative Negative : < 25 ng/ml 08/28/2024 9:45 PM [facility] Cannabinoids Screen Urine Positive(A) Negative : <50 ng/mL 08/28/2024 9:45 PM [facility] Comment:Positive urine canna binoids (THC) screening results should be confirmed by another generally accepted non-immunological method such as gas chromatography or mass spectrometry. Methadone Screen Urine Negative Negative : < 300 ng/mL 08/28/2024 9:45 PM [facility] Fentanyl Screen Urine Negative Negative : <1.5 ng/mL 08/28/2024 9:45 PM [facility] Urine URINE / Unknown Collection / Unknown 08/28/2024 8:52 PM [facility] 08/28/2024 9:24 PM [facility] - 08/28/2024 9:45 PM [facility] The Urine Toxicology Screening Panel does not screen for Propoxyphene, Meprobamate, Carisoprodol, Trazodone, vjpf-qil-[id number] medications and/or volatiles (Acetone, Isopropanol, Methanol or Ethylene Glycol). Ethanol, Salicylate, Acetaminophen, Tricyclic Antidepressants and several therapeutic drugs may be individually assayed in serum or plasma specimen. Toxicology testing by the [facility] is an aid to medical diagnosis and treatment of patients. No documented chain of custody was maintained. Results are intended to be used for clinical purposes only. ? Lincoln Rocha MD LAB - URINE VIDEO PLAYER MECHANIC RY ORDERABLES Performing Organization Address [facility] Co de Phone Number [facility] [address] [place] [address], [place] [phone] * BLOOD TYPE VERIFICATION (08/28/2024 8:23 PM HOSPITALITY HOST) Pathologist [facility] ABO Rh B POS 08/28/2024 9:1 4 PM HOSPITALITY HOST [facility] BLOOD BANK LAB Blood Bank BLOOD SPECIMEN / Unknown Lab Venipuncture / Unknown 08/28/2024 8:23 PM HOSPITALITY HOST 08/28/2024 8:42 PM HOSPITALITY HOST Lincoln Rocha MD LAB - BLOOD BANK OR DERABLES Performing Organization Address [facility] Co de Phone Number [facility] BLOOD [facility] LAB [address] [place] [address], [place] [phone] * SARS-COV-2 (COVID-19) RAPID (08/28/2024 11:05 AM HOSPITALITY HOST) COVID-19 PCR Not detected Not detected 08/28/20 11:49 AM HOSPITALITY HOST [facility] Microbiology SPECIMEN FROM NASOPHARYNGEAL STRUCTURE / Unknown Collection / Unknown 08/28/2024 11:05 AM HOSPITALITY HOST 08/28/2024 11:12 AM HOSPITALITY HOST Narrative [facility] - 08/28/2024 11:49 AM HOSPITALITY HOST The Cepheid Xpert Xpress SARS-COV-2 has been [...] Matthew Galvez MD LAB - MICROBIOLOGY O [facility] Performing Organization Address City/State/[facility] Co de Phone Number [address] [address], [facility] [phone] * XR Elbow Left 3Vw or More (08/27/2024 11:41 PM HOSPITALITY HOST) Anatomical Region Laterality Modality Upper Extremity Digital Radiogra phy 08/28/2024 1:17 AM HOSPITALITY HOST Impressions 08/28/2024 9:13 AM HOSPITALITY HOST IMPRESSION: No acute fracture or dislocation identified. Report dictated by Dante Mcclain MD, (transporter radiology). I, Sho Minaya MD have personally reviewed and interpreted this examination/study. > Interpreting Provider: Sho Minaya MD on 08/28/2024 9:13 AM Narrative 08/28/2024 9:13 AM HOSPITALITY HOST PROCEDURE: ??XR ELBOW LEFT 3VW OR MORE, DATE/TIME OF EXAM: ??08/27/2024 11:41 PM, LOCATION ??[facility] INDICATION: T14.90XA: Trauma ADDITIONAL CLINICAL INFORMATION: [...] MORE, DATE/TIME OF EXAM: 1:41 PM, LOCATION [facility] INDICATION: T14.90XA: Trauma ADDITIONAL CLINICAL INFORMATION: [...] identified. Report dictated by Dante Mcclain MD, (transporter radiology). Sho Macedo MD have personally reviewed and interpreted this examination/study. > Interpreting Provider: Sho Minaya MD on 08/28/2024 9:13 AM Lincoln Rocha MD DIAGNOSTIC IMAGING ORDERABLES * CT CHEST ABDOMEN PELVIS W CONT - Abdomen-pelvis trauma, blunt or penetrating (08/27/2024 11:34 PM HOSPITALITY HOST) Anatomical Region Laterality Modality Chest, Abdomen, Pelvis Computed Tomography 08/27/2024 11:2 6 PM HOSPITALITY HOST Impressions 08/28/2024 8:02 AM HOSPITALITY HOST Impression: Mild limitations to the exam secondary [...] pelvis. > Dictated by Dorian Cuevas MD (transporter radiology). Tyree Macedo have personally reviewed and interpreted this examination/study. > Interpreting Provider: Tyree Tyler on 08/28/2024 8:02 AM Narrative 08/28/2024 8:02 AM HOSPITALITY HOST PROCEDURE: ??CT CHEST ABDOMEN PELVIS W CONT, DATE/TIME OF EXAM: ??08/27/2024 11:36 PM, LOCATION ??[facility] INDICATION: Trauma ADDITIONAL CLINICAL INFORMATION: Ordering [...] CONT, DATE/TIME OF EXAM:08/27/2024 11:36 PM, LOCATION [facility] INDICATION: Trauma ADDITIONAL CLINICAL INFORMATION: Ordering [...] pelvis. > Dictated by Dorian Cuevas MD (transporter radiology). Tyree Macedo have personally reviewed and interpreted this examination/study. > Interpreting Provider: Tyree Tyler on 08/28/2024 8:02 AM Lincoln Rocha MD CT ORDERABLES * CT LUMBAR SPINE WO CONTRAST - T/L-spine trauma, Spine fracture (08/27/2024 11:34 PM HOSPITALITY HOST) Anatomical Region Laterality Modality Spine Computed Tomogra phy 08/27/2024 11:4 7 PM HOSPITALITY HOST Impressions 08/28/2024 6:41 AM HOSPITALITY HOST IMPRESSION: Significant motion artifact limits evaluation for [...] report is dictated by Dante Mcclain MD (transporter radiology) Kalyani Macedo MD have personally reviewed and interpreted this examination/study. > Interpreting Provider: Kalyani Cortez MD on 08/28/2024 6:41 AM Narrative 08/28/2024 6:41 AM HOSPITALITY HOST PROCEDURE: ??CT HEAD WO CONTRAST, CT LUMBAR SPINE WO CONTRAST, CT THORACIC SPINE WO CONTRAST, CT CERVICAL SPINE WO CONTRAST, CT FACIAL BONES WO CONTRAST, DATE/TIME OF EXAM: ??08/27/2024 11:36 PM, LOCATION ??[facility] INDICATION: Trauma ADDITIONAL CLINICAL INFORMATION: Ordering [...] DATE/TIME OF EXAM: 08/27/2024 11:36 PM, LOCATION [facility] INDICATION: Trauma ADDITIONAL CLINICAL INFORMATION: Ordering [...] report is dictated by Dante Mcclain MD (transporter radiology) I, Kalyani Cortez MD have personally reviewed and interpretedthis examination/study. > Interpreting Provider: Kalyani Cortez MD on 08/28/2024 6:41 AM Lincoln Rocha MD CT ORDERABLES * CT THORACIC SPINE WO CONTRAST - T/L-spine trauma, spine fracture (08/27/2024 11:34 PM HOSPITALITY HOST) Anatomical Region Laterality Modality Spine Computed Tomogra phy 08/27/2024 11:4 7 PM HOSPITALITY HOST Impressions 08/28/2024 6:41 AM HOSPITALITY HOST IMPRESSION: Significant motion artifact limits evaluation for [...] report is dictated by Dante Mcclain MD (transporter radiology) I, Kalyani Cortez MD have personally reviewed and interpreted this examination/study. > Interpreting Provider: Kalyani Cortez MD on 08/28/2024 6:41 AM Narrative 08/28/2024 6:41 AM HOSPITALITY HOST PROCEDURE: ??CT HEAD WO CONTRAST, CT LUMBAR SPINE WO CONTRAST, CT THORACIC SPINE WO CONTRAST, CT CERVICAL SPINE WO CONTRAST, CT FACIAL BONES WO CONTRAST, DATE/TIME OF EXAM: ??08/27/2024 11:36 PM, LOCATION ??[facility] INDICATION: Trauma ADDITIONAL CLINICAL INFORMATION: Ordering [...] DATE/TIME OF EXAM: 08/27/2024 11:36 PM, LOCATION [facility] INDICATION: Trauma ADDITIONAL CLINICAL INFORMATION: Ordering [...] report is dictated by Dante Mcclain MD (transporter radiology) I, Kalyani oCrtez MD have personally reviewed and interpretedthis examination/study. > Interpreting Provider: Kalyain Cortez MD on 08/28/2024 6:41 AM Lincoln Rocha MD CT ORDERABLES * CT CERVICAL SPINE WO CONTRAST - C-Spine Trauma, Spine fracture (08/27/2024 11:34 PM HOSPITALITY HOST) Anatomical Region Laterality Modality Spine Computed Tomogra phy 08/27/2024 11:4 7 PM HOSPITALITY HOST Impressions 08/28/2024 6:41 AM HOSPITALITY HOST IMPRESSION: Significant motion artifact limits evaluation for [...] report is dictated by Dante Mcclain MD (transporter radiology) IKalyani MD have personally reviewed and interpreted this examination/study. > Interpreting Provider: Kalyani Cortez MD on 08/28/2024 6:41 AM Narrative 08/28/2024 6:41 AM HOSPITALITY HOST PROCEDURE: ??CT HEAD WO CONTRAST, CT LUMBAR SPINE WO CONTRAST, CT THORACIC SPINE WO CONTRAST, CT CERVICAL SPINE WO CONTRAST, CT FACIAL BONES WO CONTRAST, DATE/TIME OF EXAM: ??08/27/2024 11:36 PM, LOCATION ??[facility] INDICATION: Trauma ADDITIONAL CLINICAL INFORMATION: Ordering [...] DATE/TIME OF EXAM: 08/27/2024 11:36 PM, LOCATION [facility] INDICATION: Trauma ADDITIONAL CLINICAL INFORMATION: Ordering [...] report is dictated by Dante Mcclain MD (transporter radiology) I, Kalyani Cortez MD have personally reviewed and interpretedthis examination/study. > Interpreting Provider: Kalyani Cortez MD on 08/28/2024 6:41 AM Lincoln Rocha MD CT ORDERABLES * CT FACIAL BONES WO CONTRAST - Facial trauma, fx suspected, blunt (08/27/2024 11:34 PM HOSPITALITY HOST) Anatomical Region Laterality Modality Head Computed Tomogra phy 08/27/2024 11:4 7 PM HOSPITALITY HOST Impressions 08/28/2024 6:41 AM HOSPITALITY HOST IMPRESSION: Significant motion artifact limits evaluation for [...] report is dictated by Dante Mcclain MD (transporter radiology) I, Kalyani Cortez MD have personally reviewed and interpreted this examination/study. > Interpreting Provider: Kalyani Cortez MD on 08/28/2024 6:41 AM Narrative 08/28/2024 6:41 AM HOSPITALITY HOST PROCEDURE: ??CT HEAD WO CONTRAST, CT LUMBAR SPINE WO CONTRAST, CT THORACIC SPINE WO CONTRAST, CT CERVICAL SPINE WO CONTRAST, CT FACIAL BONES WO CONTRAST, DATE/TIME OF EXAM: ??08/27/2024 11:36 PM, LOCATION ??[facility] INDICATION: Trauma ADDITIONAL CLINICAL INFORMATION: Ordering [...] DATE/TIME OF EXAM: 08/27/2024 11:36 PM, LOCATION [facility] INDICATION: Trauma ADDITIONAL CLINICAL INFORMATION: Ordering [...] report is dictated by Dante Mcclain MD (transporter radiology) Kalyani Macedo MD have personally reviewed and interpretedthis examination/study. > Interpreting Provider: Kalyani Cortez MD on 08/28/2024 6:41 AM Lincoln Rocha MD CT ORDERABLES * XR PELVIS 1 OR 2VW (08/27/2024 11:33 PM HOSPITALITY HOST) Anatomical Region Laterality Modality Pelvis Digital Radiogra phy 08/28/2024 1:07 AM HOSPITALITY HOST Impressions 08/28/2024 9:15 AM HOSPITALITY HOST IMPRESSION: No acute fracture identified. Report dictated by Dante Mcclain MD, MD (transporter radiology). Sho Macedo MD have personally reviewed and interpreted this examination/study. > Interpreting Provider: Sho Minaya MD on 08/28/2024 9:15 AM Narrative 08/28/2024 9:15 AM HOSPITALITY HOST PROCEDURE: ??XR PELVIS 1 OR 2VW, DATE/TIME OF EXAM: ??08/27/2024 11:34 PM, LOCATION ??[facility] INDICATION: Trauma Fracture suspected ADDITIONAL CLINICAL INFORMATION: [...] DATE/TIME OF EXAM: 08/27/2024 11:34 PM, LOCATION [facility] INDICATION: Trauma Fracture suspected ADDITIONAL CLINICAL INFORMATION: Ordering Provider Reason For Exam: Technologist Note: Additional: COMPARISON: None. FINDINGS: Left hip arthroplasty. No acute fracture. Degenerative changes in theright hip. The pubic symphysis is intact. Bone density and texture are normal. The sacroiliac joints are normal. 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 IMPRESSION: No acute fracture identified. Report dictated by Dante Mcclain MD, (transporter radiology). ISho MD have personally reviewed and interpreted this examination/study. > Interpreting Provider: Sho Minaya MD on 08/28/2024 9:15 AM Lincoln Rocha MD DIAGNOSTIC IMAGING ORDERABLES * (ABNORMAL) CK BLOOD (08/27/2024 11:05 PM HOSPITALITY HOST) CK Total 417(H) 30 - 200 U/L 08/27/2024 11:39 PM HOSPITALITY HOST [facility] Blood BLOOD SPECIMEN / Unknown Venipuncture / Unknown 08/27/2024 11:05 PM HOSPITALITY HOST 08/27/2024 11:14 PM HOSPITALITY HOST Lincoln Rocha MD LAB - CHEMISTRY ORD ERABLES [facility] [address] [place] [address], [facility] [phone] * ALCOHOL ETHYL BLOOD (08/27/2024 11:05 PM HOSPITALITY HOST) Ethanol (mg/dL) <10 <10 mg/dL 11:39 PM [facility] Ethanol Calculated (g/dL) <0.010 <=0.010 g/dL 08/27/2024 11:39 PM [facility] Blood BLOOD SPECIMEN / Unknown Venipuncture / Unknown 08/27/2024 11:05 PM HOSPITALITY HOST 08/27/2024 11:14 PM HOSPITALITY HOST Narrative [facility] - 08/27/2024 11:39 PM HOSPITALITY HOST Ethanol Interp <10: None Detected. Depression of [employer]: >100 mg/dl Potentially Critical: >250 mg/dl Potentially [...] Rocha MD LAB - CHEMISTRY ORD ERABLES [facility] [address] [place] [address], [facility] [phone] * NC DESTROY PREMALIG LESION, 2-14, NC DESTROY PREMALIG LESION, 1ST LESION (11/14/2023 2:53 PM HOSPITALITY HOST) Narrative Diana Odom MD - 11/14/2023 2:53 PM HOSPITALITY HOST Lincoln Viera MD ? 11/14/2023 ??2:54 PM Diagnosis and treatment options discussed. Cryotherapy (Liquid Nitrogen) to 8 ??lesion(s) for 5-7 seconds each. Number of cycles: 1. Wound care reviewed. Location: X4, L X2, R X2 Lincoln Viera MD Dermatology PGY-4 Diana Odom MD PROCEDURE/MINOR SANTO RGICAL ORDERABLES * NC DESTROY PREMALIG LESION, 2-14, NC DESTROY PREMALIG LESION, 1ST LESION (05/05/2020 10:49 AM CDT) Narrative Lincoln Leone MD - 05/05/2020 10:49 AM CDT Manfred Kelley MD ? 05/05/2020 10:49 AM Diagnosis and treatment options discussed for AKs. Verbal consent obtained. Cryotherapy (Liquid Nitrogen) performed to 7 lesions on forehead ?? for 6-7 seconds each. Number of cycles: 1. Wound care reviewed and post-cryotherapy handout given. Manfred Kelley MD [facility] Dermatology Resident, PGY-3 Lincoln Leone MD PROCEDURE/MINOR SURG ICAL ORDERABLES * NC DESTROY PREMALIG LESION, 2-14, NC DESTROY PREMALIG LESION, 1ST LESION (03/14/2019 11:23 AM CDT) Narrative Martina Fisher PA - 03/14/2019 11:23 AM CDT Martina Fisher PA ? 03/14/2019 11:23 AM Diagnosis and treatment options discussed. Cryotherapy (Liquid Nitrogen) to 6 left FH ??lesions for 5 seconds each. Number of cycles: 1. Wound care reviewed. Martina OROPEZA PROCEDURE/MINOR SURG ICAL ORDERABLES * DERMATOPATHOLOGY (02/22/2019 12:00 AM CDT) Only the most recent of7 resultswithin the time period is included. Case Report Dermatopathology Report ? Case: [id number] ? Authorizing Provider: ??Lincoln Leone MD ? Collected: ? 02/22/2019 12:00 AM ? Ordering Location: ? [facility] ?Received: ?02/22/2019 12:50 PM ? Dermatology ? Pathologist: ? Mckenna Feng MD ? Specimen: ?Skin, right post auricular ? 5:54 PM CDT DERMATOPATHOLOGY LABORATORY Final Diagnosis Specimen A. SKIN, right post auricular: BENIGN VERRUCOUS KERATOSIS, INFLAMED (L82.1) 5:54 PM CDT DERMATOPATHOLOGY LABORATORY Clinical History Ruptured hair follicle vs SCC. 5:54 PM CDT DERMATOPATHOLOGY LABORATORY Gross Description Specimen A: Received is one formalin filled container labeled with the patient's name and designated right post auricular. The specimen consists of a shave biopsy measuring [id number]. Jar 0. 5:54 PM CDT DERMATOPATHOLOGY LABORATORY Microscopic Description Specimen A. SKIN, right post auricular: Sections show hyperkeratosis, papillomatosis, hypergranulosis, and acanthosis. Inflammatory cells are present within the dermis. These histological findings can be seen in a verruca vulgaris or a seborrheic keratosis. 5:54 PM CDT DERMATOPATHOLOGY LABORATORY Disclaimer An external and internal positive and negative controls are appropriate for the histochemical, immunohistochemical and immunofluorescence stain(s) in this case (if any), except where stated explicitly. The performance characteristics of the stain(s) cited in this report were developed and its performance characteristic determined by the Dermatopathology Laboratory at [facility], directed by Dr. Taj Feng. These tests need not be, and therefore are not, approved by the [place] Food and Drug Administration. The tests are used for clinical purposes. Billing Codes Specimen Charges Stain Charges 63543 1 9 5:54 PM CDT DERMATOPATHOLOGY LABORATORY Embedded Images 9 5:54 PM CDT DERMATOPATHOLOGY LABORATORY Pathology/Cytolog y TISSUE SPECIMEN FROM SKIN / Unknown 02/22/2019 02/22/2019 12:50 PM CDT Lincoln Leone MD LAB - PATHOLOGY/CYTO LOGY ORDERABLES Performing Organization Address [facility]/ZIP Co de Phone Number DERMATOPATHOLOGY LABORATORY [facility] - Department of Dermatology [address] [facility], [address] [phone] * NC DESTROY PREMALIG LESION, 2-14, NC DESTROY PREMALIG LESION, 1ST LESION (04/18/2018 11:41 AM CDT) Narrative oSnal Noriega MD - 04/18/2018 11:41 AM CDT Sonal Noriega MD ? 04/18/2018 11:41 AM Diagnosis and treatment options discussed. Cryotherapy (Liquid Nitrogen) to 12 lesions face and ears for 5-7 seconds each. Number of cycles: 1. Wound care reviewed. Sonal Noriega MD PROCEDURE/MINOR SANTO RGICAL ORDERABLES * PATHOLOGY/GENETICS HISTORICAL-ONBASE (06/03/2016) Only the most recent of6 resultswithin the time period is included. 06/03/2016 Historical Provider LAB - CHEMISTRY O RDERABLES [facility] [address] * CULTURE URINE REFLEXED (07/03/2015 8:53 AM CDT) Culture Urine Comprehensive NO CULTURE INDICATED [facility] ([facility]) Comment: REPORT COMMENT: FASTING:YES Test Performed at: [facility] [address] [place], [place] ??[phone] CLAUDIA CARDOSO DO,MPH 07/03/2015 8:53 AM CDT 07/03/2015 8:54 AM CDT Tete Andres Tobin [facility] LAB - MICRO BIOLOGY ORDERABLES Performing Organization Address [facility] de Phone Number [facility]) * URINALYSIS W/MICROSCOPIC REFLEX TO CULTURE (07/03/2015 8:53 AM CDT) Color UA YELLOW YELLOW [facility]) Appearance CLEAR CLEAR [facility] ([facility]) Specific [place] UA 1.022 1.001 - 1.035 [facility]) pH Urine 6.0 5.0 - 8.0 [facility]) Glucose UA NEGATIVE NEGATIVE [facility]) Bilirubin UA NEGATIVE NEGATIVE [facility]) Ketone UA NEGATIVE NEGATIVE [facility]) Occult Blood NEGATIVE NEGATIVE [facility]) Protein UA NEGATIVE NEGATIVE [facility] ([facility]) Nitrite UA NEGATIVE NEGATIVE [facility]) Leukocyte Esterase NEGATIVE NEGATIVE [facility] ([facility]) WBC Urine NONE SEEN < OR = 5 /HPF [facility]) RBC Urine NONE SEEN < OR = 2 /HPF [facility]) Squamous Epithelial Cells UA NONE SEEN < OR = 5 /HPF [facility] ([facility]) Bacteria UA NONE SEEN NONE SEEN /HPF [facility]) Hyaline Casts UA NONE SEEN NONE SEEN /LPF [facility] ([facility]) Comment: REPORT COMMENT: FASTING:YES Test Performed at: [facility] [id number] [place], [place] ??[phone] CLAUDIA CARDOSO DO,MPH 07/03/2015 8:53 AM CDT 07/03/2015 8:54 AM CDT Tete Andres Tobin [facility] LAB - URINA LYSIS ORDERABLES Performing Organization Address [facility] de Phone Number [facility] * (ABNORMAL) LIPID PROFILE (07/03/2015 8:53 AM CDT) Only the most recent of4 resultswithin the time period is included. Cholesterol Total 142 125 - 200 mg/dL [facility]) Comment: Test Performed at: [facility] [address] [place], [place] ??[phone] CLAUDIA CARDOSO DO,MPH HDL 35(L) > OR = 40 mg/dL [facility]) Triglycerides 122 <150 mg/dL [facility]) LDL Calculated 83 <130 mg/dL (calc) [facility]) Comment: Desirable range <100 mg/dL for patients with CHD or diabetes and <70 mg/dL for diabetic patients with known heart disease. Chol/HDL Ratio 4.1 < OR = 5.0 (calc) [facility]) Non HDL Cholesterol 107 mg/dL (calc) [facility]) Comment: Target for non-HDL cholesterol is 30 mg/dL higher than LDL cholesterol target. Blood specimen (specimen) BLOOD SPECIMEN / Unknown 07/03/2015 8:53 AM CDT 07/03/2015 8:54 AM CDT Tete Rudd [employer]LECT[employer]ICAL [employer] INSTRUMENTATION MECHANIC-HEALTH AND SAFETY REPRESENTATIVE LAB - CHEMI STRY ORDERABLES [facility] ([facility]) * (ABNORMAL) HEMOGLOBIN A1C (12/05/2013 10:05 AM HOSPITALITY HOST) Only the most recent of2 resultswithin the time period is included. Hemoglobin A1c 6.0(H) <5.7 % of total Hgb [facility]) Comment: According to ADA guidelines, hemoglobin A1c <7.0% represents optimal control in non- diabetic patients. Different metrics may apply to specific patient populations. Standards of Medical Care in Diabetes-2013. Diabetes Care. 2013;36:s11-s66 For the purpose of screening for the presence of diabetes <5.7% ? Consistent with the absence of diabetes 5.7-6.4% ?Consistent with increased risk for diabetes ?(prediabetes) >or=6.5% ?Consistent with diabetes This assay result is consistent with an increased risk of diabetes. Currently, no consensus exists for use of hemoglobin A1c for diagnosis of diabetes for children. Test Performed at: [employer] [facility] [address] [place], [place] ??[phone] CLAUDIA CARDOSO DO,MPH Blood specimen (specimen) 12/05/2013 10:05 AM HOSPITALITY HOST 12/05/2013 10:06 AM HOSPITALITY HOST Florentin Alva MD LAB - CHEMISTRY LISANDRO HUGHES Performing Organization Address City/[facility]/ZIP Co de Phone Number [facility]) * GLUCOSE PLASMA (10/02/1998 12:00 AM HOSPITALITY HOST) Glucose, Fasting 107 mg/dL [facility] Plasma specimen (specimen) 10/02/1998 Narrative [facility] - 10/02/1998 12:00 AM HOSPITALITY HOST This external order was created through the Results Console. Historical Provider LAB - CHEMISTRY O LISA Performing Organization Address [facility] Co de Phone Number [facility] * HEPATIC FUNCTION PANEL (10/02/1998 12:00 AM HOSPITALITY HOST) ALT 26 U/L [facility] AST 23 U/L [facility] Blood specimen (specimen) BLOOD SPECIMEN / Unknown 10/02/1998 Narrative [facility] - 10/02/1998 12:00 AM HOSPITALITY HOST This external order was created through the Results Console. Historical Provider LAB - CHEMISTRY Srinath GONZALEZ Performing Organization Address [facility] de Phone Number [facility] * CREATININE BLOOD (10/02/1998 12:00 AM HOSPITALITY HOST) Creatinine 1.08 mg/dL [facility] 10/02/1998 Narrative [facility] - 10/02/1998 12:00 AM HOSPITALITY HOST This external order was created through the Results Console. Historical Provider LAB - CHEMISTRY O RDERAZAY Performing Organization Address [facility] Co de Phone Number [facility] * CALCIUM BLOOD (10/02/1998 12:00 AM HOSPITALITY HOST) Calcium 9.2 mg/dL [facility] Blood specimen (specimen) BLOOD SPECIMEN / Unknown 10/02/1998 Narrative [facility] - 10/02/1998 12:00 AM HOSPITALITY HOST This external order was created through the Results Console. Historical Provider LAB - CHEMISTRY O RDERABLES [facility] Care Teams Pool Coordinator Relationship Specialty Start Date End Date Bao Pierre MD PCP - General Internal Medicine 07/09/17
--- OUTSIDE RECORDS SUMMARY | 2024-10-01 08:35 | XMS_ITS | Encounter Summary ---
Author Organization [facility] Address [address] [place] [address] Care Team Providers Care Seat Trimmer Name Role Phone Bao Pierre MD Primary Care Provider [phone] Reason for Visit * Reason Comments Altered mental status Pt BIBEMS with c/o increased AMS s/p hospital d/c for SDH a few days ago. Pt's son called for history; EMS stated son called EMS for multiple witnessed syncopal episodes. Son states pt has been falling asleep more often in past two days but also states pt unable to sleep at night. Pt has known PMHx dementia, AOx1 (self) baseline. Pt arrives ambulatory w/ unsteady gait, noncompliant, AOx1, GCS 14 on RA. Encounter Details Date Type Department Care Team (Late st Contact Info) Description 09/14/2024 12:23 PM SHIP PILOT DISPATCHER - 09/15/2024 9:39 AM [facility] Emergency [facility] EMERGENCY DEPARTMENT [facility] [place] [id number] Eloy Ricardo MD [address] [place] [address] Tunde Chavira MD [address] [place] [address] [place] [address] Flaquito Arora MD [address] [place] [address] Dementia with agitation, unspecified dementia severity, unspecified dementia type (HCC) (Primary Dx); Fall, initial encounter; History of subdural hematoma; Delirium Discharge Disposition: Inpatient Hospital Social History Tobacco Use Types Packs/Day Years Used Date Smoking Tobacco: Former Pipe Q uit: 2014 Smokeless Tobacco: Former Alcohol Use Standard Drinks/Week Comments Yes 0 [...] and heating? Not hard at all 09/15/2024 [place] [facility] - Occupational Stress [...] any time in the past 12 m [facility], were you homeless or living in a detention (including now)? No 09/15/2024 Sex and Gender Information Value Date Recorded Sex Assigned at Not on file Gender Identity Not on file Sexual Orientation Not on file documented as of this encounter Last Filed Vital Signs Vital Sign Reading Time Taken Comments Blood Pressure 150/82 09/15/2024 9:20 AM SHIP PILOT DISPATCHER Pulse 61 09/15/2024 9:20 AM SHIP PILOT DISPATCHER Temperature 36.7 ??C (98.1 ??F) 09/14/2024 1:15 PM CS T Respiratory Rate 9 09/15/2024 9:20 AM SHIP PILOT DISPATCHER Oxygen Saturation 100% 09/15/2024 9:10 AM SHIP PILOT DISPATCHER Inhaled Oxygen Concentration - - Weight - - Height - - Body Mass Index - - documented in this encounter Functional Status Functional Status Response Date of Assess ment Is person deaf or have hammad us hearing difficulty? No 09/08/2024 Is person blind or have seri ous difficulty seeing? No 09/08/2024 Does person have serious dif ficulty walking/climbing stairs? Yes 09/08/2024 Does person have difficulty dressing/bathing? No -pt need direction 09/08/2024 Does person have difficulty doing errands alone? Yes 09/08/2024 Cognitive Status Response Date of Assessm ent Does person have difficulty concentrating/remembering/making decisions? Yes 09/08/2024 documented as of this encounter Medications at Time of Discharge [...] (one) tablet by mouth once daily 09/06/2024 cephalexin (Keflex) 500 MG capsule Take 1 (one) capsule by mouth 4 times daily for 2 days 8 capsule 09/12/2024 09/18/2024 Multiple Vitamins-Minerals (HAIR SKIN AND NAILS FORMULA) TABS Take 2 tablets by mouth once daily 09/18/2024 QUEtiapine (SEROquel) 25 MG tabletIndications:Brit tation Take 1 (one) tablet by mouth every morning AND 0.5 (one-half) tablet at bedtime. May also take 0.5 (one-half) tablet 3 times daily as needed. Reasons: Agitation. 90 tablet 2 09/06/2024 09/23/2024 Vitamin D, Cholecalciferol, 1000 UNITS CAPS Take 1 (one) capsule by mouth once daily 09/18/2024 documented as of this encounter Progress Notes * Alma Felix - 09/15/2024 5:00 AM CST Pt's son was calling here to return call he had received overnight. checked RN's notes andadvised Pt's son, Pt would be moving to [place] and there is an ambulance from [facility] scheduled to pick him up here at 5:30 am. Son thanked for the update. Pastoral care is available 24/04. Please call [phone] if requested or needed. AC21/AC21 PILOT DISPATCHER * Yuki Arredondo MSW - 09/14/2024 9:38 PM CST Hospital to Hospital Transfer Note Level of Care: Inpatient Admission Facility Name: (include name of person confirming admission): [facility]Y [facility]mers's RN Call Report to:[phone] Transportation (company and number): [employer] [phone] Certificate of Medical Necessity rationale: Requires monitoring, Dementia, no bed availability at sending hospital Date/time of transfer: 09/15/2024 at 0530am Accepting MD: Whit Vázquez MD Family/Other Notified of Transfer (name/phone): SW attempted the pt's son without success Geoge [phone]- not available. SW confirmed that Dr. David talked with family and they are aware of transfer. RN Provided with Chart Copy, Certificate of Medical Necessity, and Face Sheet. CEE Garcia PILOT DISPATCHER documented in this encounter Consult Notes * Delbert Mcclain MD - 09/14/2024 6:56 PM CSTAssociated Order(s): IP CONSULT TO NEUROSURGERY Neurosurgery Consult Note Name: Frandy Alvares : 1935 Date of Admission:09/14/2024 Date of Consult:09/14/2024 6:56 PM Chief Complaint (CC): bilateral chronic SDH HISTORY OF PRESENT ILLNESS (HPI): Frandy Alvares is a 89 year old male with history of dementia at baseline a+ox1, superficial venousthrombosis, on Eliquis, recent admission for MSSA UTI, being evaluated for altered mental status, recently discharged home from admission for UTI. Family concerned about weakness and their ability toprovide care. On 08/28/24 pt BIBEMS from OSH s/p multiple falls as level [address] head suggest chronic SDH vs hydroma with minimal interval change from prior CT on 08/28/24. He denies headaches, nausea, vomiting, weakness, numbness, tingling, and vision changes. [facility] NEUROSURGERY HIGH RISK VARIABLES Superficial venous thrombosis on eliquis, dementia, MSSA UTI Were these Present On Admission? Yes Past Medical History: Diagnosis Date Actinic keratosis Dementia (HCC) Squamous cell carcinoma Past Surgical History: Procedure Laterality Date Back Surgery Cataract Removal Bilateral Rotator Cuff Repair Allergies Allergen Reactions Ativan [Lorazepam] Other Pt gets drowsy/ lethargic confused for multiple days after dose administered Epinephrine Dizziness Passed out for 4 hours in childhood Current Medications acetaminophen (Tylenol) 500 MG tablet Take 2 (two) tablets by mouth every 8 hours as needed for Headache (pain) Maximum allowable Acetaminophen amount = 4 Grams (4000 mg) / 24 hours. apixaban (Eliquis) 2.5 MG tablet Take 1 (one) tablet by mouth 2 times daily for 30 days cephalexin (Keflex) 500 MG capsule Take 1 (one) capsule by mouth 4 times daily for 2 days escitalopram (Lexapro) 10 MG tablet Take 1 (one) tablet by mouth once daily folic acid (Folvite) 1 MG tablet Take 1 (one) tablet by mouth once daily levETIRAcetam (Keppra) 500 MG tablet Take 1 (one) tablet by mouth 2 times daily Multiple Vitamins-Minerals (HAIR SKIN AND NAILS FORMULA) [...] 3 times daily as needed. Reasons: Agitation. senna (Senokot) 8.6 MG tablet Take 1 (one) tablet by mouth once daily Vitamin D, Cholecalciferol, 1000 UNITS CAPS Take 1 (one) capsule by mouth once daily No current facility-administered medications for this encounter. Current Outpatient Medications Medication acetaminophen (Tylenol) 500 MG tablet apixaban (Eliquis) 2.5 MG tablet cephalexin (Keflex) 500 MG capsule escitalopram (Lexapro) 10 MG tablet folic acid (Folvite) 1 MG tablet levETIRAcetam (Keppra) 500 MG tablet Multiple Vitamins-Minerals (HAIR SKIN AND NAILS FORMULA) TABS Nutritional Supplements (Ensure Plus High Protein) LIQD polyethylene glycol 3350 (Miralax) 17 g packet QUEtiapine (SEROquel) 25 MG tablet senna (Senokot) 8.6 MG tablet Vitamin D, Cholecalciferol, 1000 UNITS CAPS Social History Tobacco Use Smoking status: Former Types: Pipe Quit date: 2014 Years since quittin.9 Smokeless tobacco: Former Substance Use Topics Alcohol use: Yes Comment: rarely Family History Problem Relation Name Age of Onset High Blood Pressure Mother CAD (Coronary Artery Disease) Mother Asthma Neg Hx Eczema Neg Hx Cancer - Other Neg Hx Cancer - Breast Neg Hx Cancer - Skin, Non Melanoma Neg Hx Cancer - Skin, Melanoma Neg Hx CVA Neg Hx Hemophilia Neg Hx Psoriasis Neg Hx PHYSICAL EXAM BP 136/84 Pulse 84 Temp 98.1 ??F (36.7 ??C) (Temporal) Resp 16 SpO2 100% General: resting in bed, not in distress Neuro: A&Ox [address] CN grossly intact, moves all extremities equally and strongly 5/5, ou=r, face symmetric, sensation intact to light touch throughout LABORATORY Recent Labs Component Name 09/14/24 1334 WBC 9.2 HGB 8.9* HCT 26.8* PLTCOUNT 283 Recent Labs Component Name 09/14/24 1334 NA 137 POTASSIUM 5.1* CO2 22 BUN 29* CREATININE 1.04 GLUCOSE 96 Recent Labs Component Name 09/14/24 [address]: Bilateral predominantly hypodense subdural collections/chronic subdural hematomas [...] shift. Otherwise no new foci of hemorrhage Assessment: Frandy Alvares is a 89 year old male with history of dementia at baseline a+ox1, superficial venousthrombosis, on Eliquis, recent admission for MSSA UTI, being evaluated for altered mental status, recently discharged home from admission for UTI. Family concerned about weakness and their ability toprovide care. On 08/28/24 pt BIBEMS from OSH s/p multiple falls as level [address] head suggest chronic SDH vs hydroma with minimal interval change from prior CT on 08/28/24. He is neurologically at his baseline. His CT head shows subdural hygroma. Low concern for an acute SDH or worsening of chronic SDH. Plan: - No acute neurosurgical intervention - No need for repeat imagine - Ok to continue eliquis from neurosurgical perspective - No need for neurosurgical follow up - Neurosurgery will sign off Case discussed with Dr. Escobar. Delbert Mcclain MD 09/14/2024 6:56 PM PILOT DISPATCHER documented in this encounter ED Notes * Caro Cardozo RN - 09/15/2024 9:05 AM CST Report given to the EMS. Pt's belongings with EMS. Breathing even and unlabored. PILOT DISPATCHER * Eloy Ricardo MD - 09/15/2024 6:04 AM CST ASSUMED CARE NOTE Patient signed out to me by Dr. Chavira at 6:04 AM. Briefly, Frandy Alvares is a 89 year old male is being evaluated for dementia, agitation. At this time the patient's condition is Stable. Pending transfer. Plan is transfer to [place]. Vitals: 09/14/24 2200 09/14/24 2330 09/15/24 0100 09/15/24 0230 BP: 117/81 133/49 100/63 116/58 Pulse: 68 72 63 59 Resp: 13 10 12 17 Temp: SpO2: 100% 100% 98% 98% ED Course: 0615: Assessed patient, resting comfortably and in NAD, VSS. 0914: Patient transferred to [place] at this time. Clinical Impression: 1. Dementia with agitation, unspecified dementia severity, unspecified dementia type (HCC) 2. Fall, initial encounter 3. History of subdural hematoma 4. Delirium Disposition: Transfer to [place] I, Dr. Ricardo, personally performed the services described in this documentation. All medical record entries made by the scribe were at my direction and in my presence. I have reviewed the chart and agree that the record reflects my personal performance and is accurate and complete. PILOT DISPATCHER * Tunde Chavira MD - 09/14/2024 11:02 PM CST ASSUMED CARE NOTE Patient signed out to me by Dr. David at 10:10 PM. Briefly, Frandy Alvares is a 89 year old male with a PMHX of dementia at baseline a+ox1, CAD, HTN, superficial venous thrombosis on Eliquis, recent admission for MSSA UTI who is being evaluated for AMS and failure to thrive. At this time the patient's condition is stable. Pending transfer to [facility]. Vitals: 09/14/24 1949 09/14/24199909/14/24202909/14/24 2200 BP: 143/75 105/83 117/81 Pulse: 79 81 81 68 Resp: 15 15 28 13 Temp: SpO2: 100% 100% 100% 100% ED Course: Labs Reviewed CBC W AUTO DIFFERENTIAL - Abnormal; Notable for the following components: Result Value RBC Count 2.83 (*) Hemoglobin 8.9 (*) Hematocrit 26.8 (*) Neutrophil % 76.0 (*) Lymphocyte % 12.9 (*) Immature Granulocytes % 1.4 (*) All other components within normal limits COMPREHENSIVE METABOLIC PANEL - Abnormal; Notable for the following components: BUN 29 (*) Potassium 5.1 (*) Albumin 3.0 (*) BUN/Creatinine Ratio 28 (*) Albumin/Globulin Ratio 0.9 (*) eGFR by CKD-EPI 69 (*) All other components within normal limits TEG 6S PLATELET MAPPING - Abnormal; Notable for the following components: TEGPLM (Max Amplitude) Koalin 69.2 (*) TEGPLM (Max Amplitude) ACTF 20.7 (*) TEGPLM (Max Amplitude) AA 49.3 (*) TEGPLM %Inhibition AA 41.0 (*) TEGPLM % Aggregation AA 59.0 (*) All other components within normal limits LIPASE BLOOD - Abnormal; Notable for the following components: Lipase 80 (*) All other components within normal limits Narrative: Lipase results from the [employer] Alinity analyzer may not be comparable with other methodologies. PT-INR SLH - Normal TROPONIN-I HIGH SENSITIVE BASELINE + 1HR - Normal TEG 6 GLOBAL HEMOSTASIS W/ LYSIS - Normal URINALYSIS REFLEX MICROSCOPIC REFLEX CULTURE Narrative: TROPONIN-I HIGH SENSITIVE REFLEX 1HOUR TYPE + SCREEN PANEL CT Head Wo Contrast Final Result PROCEDURE: CT HEAD WO CONTRAST, DATE/TIME OF EXAM: 09/14/2024 5:32 PM, LOCATION [facility] INDICATION: W19.XXXA: Fall, initial encounter [...] foci of hemorrhage > Interpreting Provider: Philomena Hokpins MD on 09/14/2024 5:46 PM XR CHEST 1VW PORTABLE Final Result PROCEDURE: XR CHEST 1VW PORTABLE, DATE/TIME OF EXAM: 09/14/2024 2:49 PM, LOCATION [facility] INDICATION: W19.XXXA: Fall, initial encounter ADDITIONAL CLINICAL INFORMATION: Ordering Provider Reason For Exam: rule out pna COMPARISON: X-ray chest 08/27/2024. TECHNIQUE: Frontal radiograph of the chest. FINDINGS/IMPRESSION: There is no focal consolidation, pleural effusion, or pneumothorax. The cardiac silhouette is normal. There is atherosclerotic calcification of the aorta. The visible bony thorax is intact. Report dictated by Wesley Renner MD, (Surgical Assistant). I, Jason Mina MD have personally reviewed and interpreted this examination/study. > Interpreting Provider: Jason Mina MD on 09/14/2024 8:37 PM Clinical Impressions as of 09/14/242306 Fall, initial encounter Dementia with agitation, unspecified dementia severity, unspecified dementia type (HCC) History of subdural hematoma Delirium ZACHARY to Dr. Ricardo at 0600 pending transfer to [facility] Clinical Impression: 1. Dementia with agitation, unspecified dementia severity, unspecified dementia type (HCC) 2. Fall, initial encounter 3. History of subdural hematoma 4. Delirium Disposition: Transfer to [facility]. By signing my name below, I, Indira Saavedra, attest that this documentation has been prepared under the direction and in the presence of Dr. Chavira. Signed: Kelin Carpenter. I, Dr. Chavira, personally performed the services described in this documentation. All medical record entries made by the scribe were at my direction and in my presence. I have reviewed the chart andagree that the record reflects my personal performance and is accurate and complete. PILOT DISPATCHER * Chelo Matta RN - 09/14/2024 10:58 PM CST Patient cleaned of fecal incontinence, fresh linens provided. PILOT DISPATCHER * Chelo Matta RN - 09/14/2024 9:24 PM CST Report called to Carolin LUNDY at [facility]. All questions answered. Will arrange transport for patient. PILOT DISPATCHER * Chelo Matta RN - 09/14/2024 7:49 PM CST Patient cleaned of bowel incontinence, and clean linens placed. Patient attached to monitoring at this time. Condom catheter in place and draining light yellow urine PILOT DISPATCHER * Chelo Matta RN - 09/14/2024 7:37 PM CST Fall mat placed at this time PILOT DISPATCHER * Cristy David MD - 09/14/2024 2:09 PM CST ASSUMED CARE NOTE Patient signed out to me by Dr. Ricardo at 2:09 PM. Frandy Alvares is a 89 year old male with history of dementia at baseline a+ox1, superficial venousthrombosis, on Eliquis, recent admission for MSSA UTI, being evaluated for altered mental status, recently discharged home from admission for UTI. Family concerned about weakness and their ability toprovide care. At this time the patient's condition is Stable. Plan for f/u labwork, reassessment. Vitals: 09/14/24 1315 BP: 159/84 Pulse: 81 Resp: 14 Temp: 98.1 ??F (36.7 ??C) SpO2: 100% ED Course: Patient reassessed. Head CT stable vs prior - still noted to have prominent ?chronic subdural b/l; discussed with neurosurgery for evaluation, patient previously seen and these CT findings were thought to be chronic subdural vs hygroma, but more likely hygroma. As a result, given stability of CT findings, they recommended continuation of Eliquis and no acute need for further imaging or neurosurgery management. Had conversation with patient's son, Frandy. They are quite concerned his functional status, which seems to be gradually declining over time. Patient with multiple recently admissions and each time has not been able to manage at home. They feel he should be admitted for placement, which I think is medically reasonable. Discussed with [place] for transfer. Clinical Impression: 1. Dementia with agitation, unspecified dementia severity, unspecified dementia type (HCC) 2. Fall, initial encounter 3. History of subdural hematoma 4. Delirium Disposition: Signed out to Dr. Chavira. Pending transfer to [place], inpatient medicine; accepted by IM hospitalist. PILOT DISPATCHER * Kaushal Lezama RN - 09/14/2024 1:25 PM CST Pt BIBEMS with c/o increased AMS s/p hospital d/c for SDH a few days ago. Pt's son called for history; EMS stated son called EMS for multiple witnessed syncopal episodes. Son states pt has been falling asleep more often in past two days but also states pt unable to sleep at night. Pt has known PMHxdementia, AOx1 (self) baseline. Pt arrives ambulatory w/ unsteady gait, noncompliant, AOx1, GCS 14 on RA. Past Medical History: Diagnosis Date Actinic keratosis Dementia (HCC) Squamous cell carcinoma Past Surgical History: Procedure Laterality Date Back Surgery Cataract Removal Bilateral Rotator Cuff Repair PILOT DISPATCHER * Kaushal Lezama RN - 09/14/2024 1:25 PM CST Pt given 10 mg PO zyprexa ODT and 5 mg haldol IM. Meds linked in froy, verbal OK for both. PILOT DISPATCHER * Shayy Soto MD - 09/14/2024 12:42 PM CST EMERGENCY MEDICINE RESIDENT NOTE History of Present Illness: Frandy Alvares is a 89 year old male with a PMHx of dementia, subdural hematoma who presents to [facility] for syncopal episodes over the last 1 day. Patient's son reports patient was discharged home from [facility] 2 days ago and they have been unable to manage his care. Reports patient has been intermittently passing out but has not fallen. Per chart review, patient was discharged from [facility] 2 days ago after admission for left arm swelling. He was found to have a superficial vein thrombosis and MSSA UTI. He was started on Eliquis and discharged home with his son. Son reports worsening confusion and agitation. Seeking assistance with placement. Medications: No current facility-administered medications on file prior to encounter. Current Outpatient Medications on File Prior to Encounter Medication Sig Dispense Refill acetaminophen (Tylenol) 500 MG tablet Take 2 (two) tablets by mouth every 8 hours as needed for Headache (pain) Maximum allowable Acetaminophen amount = 4 Grams (4000 mg) / 24 hours. apixaban (Eliquis) 2.5 MG tablet Take 1 (one) tablet by mouth 2 times daily for 30 days 60 tablet 0 cephalexin (Keflex) 500 MG capsule Take 1 (one) capsule by mouth 4 times daily for 2 days 8 capsule0 escitalopram (Lexapro) 10 MG tablet Take 1 [...] 1 (one) capsule by mouth once daily Allergies: Allergies Allergen Reactions Ativan [Lorazepam] Other Pt gets drowsy/ lethargic confused for multiple days after dose administered Epinephrine Dizziness Passed out for 4 hours in childhood Social History: Social History Tobacco Use Smoking status: Former Types: Pipe Quit date: 2014 Years since quittin.9 Smokeless tobacco: Former Substance Use Topics Alcohol use: Yes Comment: rarely Review of Systems: Unable to obtained secondary to dementia. Only oriented to self. Does not know why he is here. Physical Exam: BP 159/84 Pulse 81 Temp 98.1 ??F (36.7 ??C) (Temporal) Resp 14 SpO2 100% Physical Exam HENT: Head: Normocephalic and atraumatic. Right Ear: External ear normal. Nose: Nose normal. Eyes: Extraocular Movements: Extraocular movements intact. Conjunctiva/sclera: Conjunctivae normal. Cardiovascular: Rate and Rhythm: Normal rate. Pulses: Normal pulses. Heart sounds: Murmur heard. Pulmonary: Effort: Pulmonary effort is normal. Breath sounds: Normal breath sounds. Abdominal: Palpations: Abdomen is soft. Tenderness: There is abdominal tenderness (Diffuse, worse RUQ). Musculoskeletal: Right lower leg: No edema. Left lower leg: No edema. Skin: General: Skin is warm and dry. Neurological: Mental Status: He is alert. He is disoriented. Comments: Oriented x1 (self) Psychiatric: Attention and Perception: He is inattentive. Mood and Affect: Affect is angry. Behavior: Behavior is uncooperative, agitated and aggressive. Cognition and Memory: Memory is impaired. Medical Decision Making: Clinical Diagnoses: Dementia with agitation Delirium Chronic subdural hematoma Syncope DDx: Dementia vs intracranial hemorrhage vs electrolyte abnormalities (hypoglycemia, hyponatremia) vs UTI vs other Plan: Therapeutic - Haldol, zyprexa Labs - CBC, CMP, Troponin, Lipase, UA, Type and screen, PT-INR, TEG Imaging - CXR, EKG, Head CT Consults - none ED Course: I have reviewed triage notes, vitals, available labs and imaging, and assessed the patient. Clinical Impressions as of 09/14/24 1652 Fall, initial encounter Dementia with agitation, unspecified dementia severity, unspecified dementia type (HCC) History of subdural hematoma Delirium Studies and Interpretations: Pulse Oximetry: Saturation: 100% Oxygen Delivery: Room Air Interpretation: No hypoxia at this time Summary: This is a 89 year old male presenting for syncope. Assessment given ED course above is most consistent with worsening dementia. Plan to obtain head CTto rule out worsening of chronic subdural hematoma vs new intracranial bleeding given reported syncopal episodes, recently started on Eliquis and increasing agitation. Patient signed out to oncoming ED team pending EKG, imaging, and lab work. Interventions: Medications OLANZapine (disintegrating) (ZyPREXA Zydis) tablet 10 mg ( Oral See Alternative 09/14/24 1325) Or haloperidol lactate (Haldol) injection 5 mg (5 mg Intramuscular $ Given 09/14/24 1325) QUEtiapine (SEROquel) tablet 25 mg (25 mg Oral $ Given 09/14/24 1537) Procedures Final ED Diagnosis: 1. Dementia with agitation, unspecified dementia severity, unspecified dementia type (HCC) 2. Fall, initial encounter 3. History of subdural hematoma 4. Delirium Disposition: Patient signed out to oncoming ED team. Shayy Soto MD Emergency Medicine, PGY-1 PILOT DISPATCHER Associated attestation - Eloy Ricardo MD - 09/15/2024 1:59 PM SHIP PILOT DISPATCHER Emergency Medicine Attending Note Resident Attestation Note I have personally seen, examined and been fully involved in the management of this patient with theresident. I discussed the patient with the resident, reviewed their note, and agree with their assessment andplan of care. * Eloy Ricardo MD - 09/14/2024 12:30 PM CST Emergency Medicine Attending Note Interval History : Chief Complaint Patient presents with Altered mental status Pt BIBEMS with c/o increased AMS s/p hospital d/c for SDH a few days ago. Pt's son called for history; EMS stated son called EMS for multiple witnessed syncopal episodes. Son states pt has been falling asleep more often in past two days but also states pt unable to sleep at night. Pt has known PMHxdementia, AOx1 (self) baseline. Pt arrives ambulatory w/ unsteady gait, noncompliant, AOx1, GCS 14 on RA. Frandy Alvares is a 89 year old male with dementia PMH who presents to the ED for evaluation of syncope, agitation that began approximately a few days prior to arrival. The patient describes his symptoms as I feel fine! I want to go home! . Symptoms are improved with nothing and worsened with nothing. Per family, the [facility] and they have not been able to manage him at home. Past Medical History: Diagnosis Date Actinic keratosis Dementia (HCC) Squamous cell carcinoma Past Surgical History: Procedure Laterality Date Back Surgery Cataract Removal Bilateral Rotator Cuff Repair Social History Socioeconomic History Marital status: Spouse [...] No Stress: Patient Unable To Answer (09/08/2024) [employer] - Occupational Stress Questionnaire Feeling of Stress : Patient unable to answer Housing Stability: Low Risk (09/08/2024) Housing Stability Vital Sign Unable to Pay for Housing in the Last Year: No Number of Times Moved in the Last Year: 0 Homeless in the Last Year: No Allergies Allergen Reactions Ativan [Lorazepam] Other Pt gets drowsy/ lethargic confused for multiple days after dose administered Epinephrine Dizziness Passed out for 4 hours in childhood Review of Systems: (+) positive Review of Systems Unable to perform ROS: Dementia All other systems reviewed and are negative. Physical Exam Vitals: 09/14/24 1315 BP: 159/84 Pulse: 81 Resp: 14 Temp: 98.1 ??F (36.7 ??C) SpO2: 100% Physical Exam Constitutional: General: He is not in acute distress. Appearance: He is not ill-appearing, toxic-appearing or diaphoretic. HENT: Head: Normocephalic and atraumatic. Nose: Nose normal. Mouth/Throat: Mouth: Mucous membranes are moist. Pharynx: Oropharynx is clear. Eyes: Pupils: Pupils are equal, round, and reactive to light. Cardiovascular: Rate and Rhythm: Normal rate and regular rhythm. Pulses: Normal pulses. Pulmonary: Effort: Pulmonary effort is normal. No respiratory distress. Breath sounds: Normal breath sounds. Abdominal: General: Abdomen is flat. Bowel sounds are normal. There is no distension. Palpations: Abdomen is soft. Tenderness: There is no abdominal tenderness. There is no guarding. Musculoskeletal: General: No tenderness. Normal range of motion. Cervical back: Normal range of motion and neck supple. Skin: General: Skin is warm and dry. Neurological: General: No focal deficit present. Mental Status: He is alert. He is disoriented. Psychiatric: Attention and Perception: He is inattentive. Mood and Affect: Mood normal. Affect is angry. Behavior: Behavior is agitated and aggressive. Medical Decision Making: Problem List: 1. Syncope, agitation - Ddx: Dementia vs UTI vs ICH vs metabolic disturbance vs arrhythmia vs other - PLAN: EKG, labwork, CT imaging, CXR, chemical sedation see below for further orders/plan. Orders Placed This Encounter XR CHEST 1VW PORTABLE CT Head Wo Contrast CBC W AUTO DIFFERENTIAL COMPREHENSIVE METABOLIC PANEL PT-INR [facility] TROPONIN-I HIGH SENSITIVE BASELINE + 1HR URINALYSIS REFLEX MICROSCOPIC REFLEX CULTURE TEG 6 GLOBAL HEMOSTASIS W/ LYSIS TEG 6S PLATELET MAPPING LIPASE BLOOD TROPONIN-I HIGH SENSITIVE REFLEX 1HOUR EKG 12-LEAD OR Linked Order Group OLANZapine (disintegrating) (ZyPREXA Zydis) tablet 10 mg haloperidol lactate (Haldol) injection 5 mg Data Review: (All Labs/Imaging/ECG, other diagnostics independently interpreted by me.) - MONITORING: The patient's General Accounting Manager Rhythm was interpreted by me. The non morse intercept technician showed NSR. This is interpreted as normal. The patient's Oxygen Saturation Monitor was interpreted by me. The reading was 100%. The patient was on room air at the time of the reading. This is interpreted as normal. - LABS: Labs Reviewed PT-INR [facility] - Normal URINALYSIS REFLEX MICROSCOPIC REFLEX CULTURE Narrative: CBC W AUTO DIFFERENTIAL COMPREHENSIVE METABOLIC PANEL TROPONIN-I HIGH SENSITIVE BASELINE + 1HR TEG 6 GLOBAL HEMOSTASIS W/ LYSIS TEG 6S PLATELET MAPPING LIPASE BLOOD TROPONIN-I HIGH SENSITIVE REFLEX 1HOUR TYPE + SCREEN PANEL - IMAGING: XR CHEST 1VW PORTABLE (Results Pending) CT Head Wo Contrast (Results Pending) No results found. - MEDS: Medications OLANZapine (disintegrating) (ZyPREXA Zydis) tablet 10 mg ( Oral See Alternative 09/14/24 1325) Or haloperidol lactate (Haldol) injection 5 mg (5 mg Intramuscular $ Given 09/14/24 1325) MDM: History is obtained from patient, family and is located in my HPI section. I also externally reviewed previous records that I had access to within [facility] and noted relevant statements in my HPI. Code status patient/POA: Full Code Relevant PE findings: agitated, disoriented Labs reviewed: not resulted Imaging reviewed: not resulted ED COURSE 1300: Discussed case with patient's son, patient has been having multiple syncopal episodes but hasnot hit his head. Son states that the patient has been not sleeping and been acting out at home dueto dementia. Will obtain medical work up and admit patient for placement. 1330: Patient continues to be agitated, is threatening family members and staff and swing at staff.Patient given sedation medication and will place in restraints. Restraints Notification I was notified that the patient was agitated and a threat to their safety and the safety of the medical team, thus physical restraints were instated. I have seen and evaluated this patient face to face. The patient's immediate situation notes agitation, threat to patient/staff. Patient has good neurologic function, sensation and distal pulses in all four extremities distal torestraints. Restraints were place on four extremities they will be reexamined in 15 minutes. When the patient exhibits safe behavior toward themselves and the staff the restraints will be removed in a step-tenorio fashion. Please see nursing documentation for further information. 1400: Patient moved to inpatient bed at this time. On reevaluation: patient agitated Labs/images reviewed at bedside with patient: no Conclusion and Disposition: Acute problems: dementia agitation Exacerbations of chronic problems: Dementia Systemic issues: none Consultations in the ED: none Medication changes: per oncoming team Follow up: per oncoming team Orders and Medicine administered during this encounter: Orders Placed This Encounter XR CHEST 1VW PORTABLE CT Head Wo Contrast CBC W AUTO DIFFERENTIAL COMPREHENSIVE METABOLIC PANEL PT-INR [facility] TROPONIN-I HIGH SENSITIVE BASELINE + 1HR URINALYSIS REFLEX MICROSCOPIC REFLEX CULTURE TEG 6 GLOBAL HEMOSTASIS W/ LYSIS TEG 6S PLATELET MAPPING LIPASE BLOOD TROPONIN-I HIGH SENSITIVE REFLEX 1HOUR EKG 12-LEAD OR Linked Order Group OLANZapine (disintegrating) (ZyPREXA Zydis) tablet 10 mg haloperidol lactate (Haldol) injection 5 mg Medications OLANZapine (disintegrating) (ZyPREXA Zydis) tablet 10 mg ( Oral See Alternative 09/14/24 132) Or haloperidol lactate (Haldol) injection 5 mg (5 mg Intramuscular $ Given 09/14/24 132) Clinical Impression: 1. Fall, initial encounter 2. Dementia with agitation, unspecified dementia severity, unspecified dementia type (HCC) Disposition: ZACHARY to Dr. David pending labwork I, Dr. Ricardo, personally performed the services described in this documentation. All medical record entries made by the scribe were at my direction and in my presence. I have reviewed the chart and agree that the record reflects my personal performance and is accurate and complete. PILOT DISPATCHER documented in this encounter Plan of Treatment Upcoming Encounters Date Type Department Care Team (Late st Contact Info) Description 10/09/2024 11:30 AM SHIP PILOT DISPATCHER Office Visit [facility] - Dermatology [address] [place] [address], [place] [id number] Katharine Bar MD [address] [place] [address] [address] [place] [address] 11/19/2024 8:30 AM SHIP PILOT DISPATCHER Office Visit [facility] - Dermatology [address] [facility], [place] [phone] Patricia Jarvis MD [address] [place] [address] 11/22/2024 8:00 AM SHIP PILOT DISPATCHER Office Visit [facility] - Neurology [address] [facility], [place] [phone] Chay Nieves MD [address] [place] [address] Scheduled Orders Name Type Priority Associated Diagnoses Orde r Schedule EKG 12-LEAD ECG STAT Fall, initial encounter ONCE for 1 Occurrences starting 09/14/2024 until 09/14/2024 documented as of this encounter Procedures Procedure Name Priority Date/Time Associated Diagnosis Comments GLUCOSE - POINT OF CARE Routine 09/18/2024 10:06 PM SHIP PILOT DISP[address]ER CT HEAD WO CONTRAST STAT 09/14/2024 5 :31 PM SHIP PILOT DISPATCHER Fall, initial encounter TROPONIN-I HIGH SENSITIVE REFLEX 1HOUR Timed 09/14/2024 3:45 PM SHIP PILOT DISPATCHER TEG 6S PLATELET MAPPING STAT 09/14/2024 3:45 PM SHIP PILOT DISPATCHER XR CHEST 1VW PORTABLE STAT 09/14/2024 2:49 PM SHIP PILOT DISPATCHER Fall, initial encounter PT-INR [facility] STAT 09/14/2024 1:44 PM SHIP PILOT DISPATCHER URINALYSIS REFLEX MICROSCOPIC REFLEX CULTURE STAT 09/14/2024 1:35 PM SHIP PILOT DISPATCHER TEG 6 GLOBAL HEMOSTASIS W/ LYSIS STAT 09/14/2024 1:34 PM SHIP PILOT DISPATCHER TROPONIN-I HIGH SENSITIVE BASELINE + 1HR STAT 09/14/2024 1:34 PM SHIP PILOT DISPATCHER TYPE + SCREEN PANEL STAT 09/14/2024 1 :34 PM SHIP PILOT DISPATCHER CBC W AUTO DIFFERENTIAL STAT 09/14/2024 1:34 PM SHIP PILOT DISPATCHER COMPREHENSIVE METABOLIC PANEL STAT 09/14/2024 1:34 PM SHIP PILOT DISPATCHER LIPASE BLOOD STAT 09/14/2024 1:34 PM SHIP PILOT DISPATCHER documented in this encounter Results * (ABNORMAL) GLUCOSE - POINT OF CARE (09/18/2024 10:06 PM SHIP PILOT DISPATCHER) [facility] Glucose WB/POC 108(H) 70 - 99 mg/dL 09/23/2024 12:44 PM SHIP PILOT DISPATCHER [facility] Specimen Type Cap Fingerstick 2023 12:44 PM SHIP PILOT DISPATCHER [facility] Blood BLOOD SPECIMEN / Unknown 09/18/2024 10:06 PM SHIP PILOT DISPATCHER 09/23/2024 12:43 PM SHIP PILOT DISPATCHER Eloy Ricardo MD LAB - POINT OF CARE ORDERABLES [facility] [address] [place] [address] * CT Head Wo Contrast (09/14/2024 5:31 PM SHIP PILOT DISPATCHER) Anatomical Region Laterality Modality Head Computed Tomogra phy 09/14/2024 5:37 PM SHIP PILOT DISPATCHER Impressions 09/14/2024 5:46 PM SHIP PILOT DISPATCHER IMPRESSION: Bilateral predominantly hypodense subdural collections/chronic subdural [...] 09/14/2024 5:46 PM Narrative 09/14/2024 5:46 PM SHIP PILOT DISPATCHER PROCEDURE: ??CT HEAD WO CONTRAST, DATE/TIME OF EXAM: ??09/14/2024 5:32 PM, LOCATION ??[facility] INDICATION: W19.XXXA: Fall, initial encounter [...] DATE/TIME OF EXAM: 09/14/2024 5:32 PM, LOCATION [facility] INDICATION: W19.XXXA: Fall, initial encounter [...] mass effector midline shift is seen. The pnatoja-white matter differentiation is normal. Periventricular white matter [...] HIGH SENSITIVE REFLEX 1HOUR (09/14/2024 3:45 PM SHIP PILOT DISPATCHER) Troponin I High Sensitive 10 <=35 ng/L 09/14/2024 4:41 PM SHIP PILOT DISPATCHER [facility] Delta Troponin I HS 09/14/2024 4:41 PM SHIP PILOT DISPATCHER [facility] Comment:Delta value intentio shahida not calculated. Baseline to 1 hour specimen collection interval exceeded. Blood BLOOD SPECIMEN / Unknown Venipuncture / Unknown 09/14/2024 3:45 PM SHIP PILOT DISPATCHER 09/14/2024 4:04 PM SHIP PILOT DISPATCHER Eloy Ricardo MD LAB - CHEMISTRY ORD ERABLES [facility] [address] [place] [address], [facility] [phone] * (ABNORMAL) TEG 6S PLATELET MAPPING (09/14/2024 3:45 PM SHIP PILOT DISPATCHER) TEGPLM (Max Amplitude) Koalin 69.2(H) 53.0 - 68.0 mm 09/14/2024 4:42 PM [facility] TEGPLM (Max Amplitude) ACTF 20.7(H) 2.0 - 19.0 mm 09/14/2024 4:42 PM [facility] TEGPLM (Max Amplitude) ADP 66.9 45.0 - 69.0 mm 09/14/2024 4:42 PM [facility] TEGPLM (Max Amplitude) AA 49.3(L) 51.0 - 71.0 mm 09/14/2024 4:42 PM [facility] Comment:AA MA below normal r abdi. Inhibition present. TEGPLM %Inhibition ADP 4.7 0.0 - 17.0 % 09/14/2024 4:42 PM [facility] TEGPLM %Inhibition AA 41.0(H) 0.0 - 11.0 % 09/14/2024 4:42 PM [facility] TEGPLM %Aggregation ADP 95.3 83.0 - 100.0 % 09/14/2024 4:42 PM [facility] TEGPLM % Aggregation AA 59.0(L) 89.0 - 100.0 % 09/14/2024 4:42 PM [facility] Blood BLOOD SPECIMEN / Unknown Venipuncture / Unknown 09/14/2024 3:45 PM SHIP PILOT DISPATCHER 09/14/2024 4:04 PM SHIP PILOT DISPATCHER Eloy Ricardo MD LAB - HEMATOLOGY OR DERABLES [facility] [address] [place] [address], [facility] [phone] * XR CHEST 1VW PORTABLE (09/14/2024 2:49 PM SHIP PILOT DISPATCHER) Anatomical Region Laterality Modality Chest Digital Radiogra phy 09/14/2024 5:40 PM SHIP PILOT DISPATCHER Narrative 09/14/2024 8:37 PM SHIP PILOT DISPATCHER PROCEDURE: ??XR CHEST 1VW PORTABLE, DATE/TIME OF EXAM: ??09/14/2024 2:49 PM, LOCATION ??[facility] INDICATION: W19.XXXA: Fall, initial encounter ADDITIONAL CLINICAL INFORMATION: Ordering Provider Reason For Exam: ??rule out pna COMPARISON: X-ray chest 08/27/2024. TECHNIQUE: Frontal radiograph of the chest. FINDINGS/IMPRESSION: There is no focal consolidation, pleural effusion, or pneumothorax. The cardiac silhouette is normal. There is atherosclerotic calcification of the aorta. The visible bony thorax is intact. Report dictated by Wesley Renner MD, (Surgical Assistant). Jason Macedo MD have personally reviewed and interpreted this examination/study. > Interpreting Provider: Jason Mina MD on 09/14/2024 8:37 PM Procedure Note Jason Mina MD - 09/14/2024 PROCEDURE: XR CHEST 1VW PORTABLE, DATE/TIME OF EXAM: 09/14/2024 2:49PM, LOCATION [facility] INDICATION: W19.XXXA: Fall, initial encounter ADDITIONAL CLINICAL INFORMATION: Ordering Provider Reason For Exam: rule out pna COMPARISON: X-ray chest 08/27/2024. TECHNIQUE: Frontal radiograph of the chest. FINDINGS/IMPRESSION: There is no focal consolidation, pleural effusion, or pneumothorax. The cardiac silhouette is normal. There is atherosclerotic calcification ofthe aorta. The visible bony thorax is intact. Report dictated by Wesley Renner MD, (Surgical Assistant). Jason Macedo MD have personally reviewed and interpreted this examination/study. > Interpreting Provider: Jason Mina MD on 09/14/2024 8:37 PM Eloy Ricardo MD DIAGNOSTIC IMAGING ORDERABLES * PT-INR [facility] (09/14/2024 1:44 PM SHIP PILOT DISPATCHER) PT 13.7 12.1 - 14.8 Seconds 09/14/2024 2:12 PM SHIP PILOT DISPATCHER [facility] INR 1.1 See Comment 09/14/2024 2:12 PM [facility] Comment:The suggested therap eutic range for standard coumadin (warfarin) therapy is an INR of 2.0-3.0. For high-risk patients (Mechanical Mitral Valve Prosthesis, etc.), the suggested prophylactic therapeutic range is an INR of 2.5-3.5. Blood BLOOD SPECIMEN / Unknown Venipuncture / Unknown 09/14/2024 1:44 PM SHIP PILOT DISPATCHER 09/14/2024 1:50 PM SHIP PILOT DISPATCHER Eloy Ricardo MD LAB - COAGULATION O RDERABLES [facility] [address] [place] [address], [facility] [phone] * URINALYSIS REFLEX MICROSCOPIC REFLEX CULTURE (09/14/2024 1:35 PM SHIP PILOT DISPATCHER) Color UA Yellow Straw, Yellow 09/14/2024 2:01 PM [facility] Clarity UA Clear Clear 09/14/2024 2:01 PM [facility] Specific [place] UA 1.010 1.005 - 1.030 09/14/2024 2:01 PM [facility] pH UA 5.0 5.0 - 8.0 pH 09/14/2024 2:01 PM [facility] Protein UA Negative Negative 09/14/2024 2:01 PM [facility] Glucose UA Negative Negative 09/14/2024 2:01 PM [facility] Ketone UA Negative Negative 09/14/2024 2:01 PM [facility] Bilirubin UA Negative Negative 09/14/2024 2:01 PM [facility] Blood UA Negative Negative 09/14/2024 2:01 PM [facility] Nitrite UA Negative Negative 09/14/2024 2:01 PM [facility] Leukocyte Esterase Negative Negative 09/14/2024 2:01 PM [facility] Urobilinogen UA Negative Negative mg/dL 09/14/2024 2:01 PM [facility] Comment UA Microscopic not indicated. 09/14/2024 2:01 PM [facility] Urine URINE SPECIMEN OBTAINED BY CLEAN CATCH PROCEDURE / Unknown Collection / Unknown 09/14/2024 1:35 PM SHIP PILOT DISPATCHER 09/14/2024 1:50 PM SHIP PILOT DISPATCHER [facility] - 09/14/2024 2:01 PM SHIP PILOT DISPATCHER Eloy Ricardo MD LAB - URINALYSIS OR DERABLES Performing Organization Address [facility]/ZIP Co de Phone Number [address] [address], [facility] [phone] * (ABNORMAL) LIPASE BLOOD (09/14/2024 1:34 PM SHIP PILOT DISPATCHER) Lipase 80(H) 8 - 78 U/L 09/14/2024 2:20 PM [facility] Blood BLOOD SPECIMEN / Unknown Venipuncture / Unknown 09/14/2024 1:34 PM SHIP PILOT DISPATCHER 09/14/2024 1:50 PM SHIP PILOT DISPATCHER [facility] - 09/14/2024 2:20 PM SHIP PILOT DISPATCHER Lipase results from the [employer] Alinity analyzer may not be comparable with other methodologies. Eloy Ricardo MD LAB - CHEMISTRY ORD ERABLES Performing Organization Address [facility] Co de Phone Number [address] [address], [facility] [phone] * TEG 6 GLOBAL HEMOSTASIS W/ LYSIS (09/14/2024 1:34 PM SHIP PILOT DISPATCHER) Citrated Kaolin R (Reaction Time) 6.2 4.6 - 9.1 min 09/14/2024 2:54 PM [facility] Citrated Kaolin LY30 (Lysis) 0.6 0.0 - 2.6 % 09/14/2024 2:54 PM [facility] Citrated Functional Fibrinogen MA (Max Amplitude) 30.7 15.0 - 32.0 mm 09/14/2024 2:54 PM [facility] Citrated RapidTEG MA (Max Amplitude) 69.2 52.0 - 70.0 mm 09/14/2024 2:54 PM [facility] Blood BLOOD SPECIMEN / Unknown Venipuncture / Unknown 09/14/2024 1:34 PM SHIP PILOT DISPATCHER 09/14/2024 1:50 PM SHIP PILOT DISPATCHER Eloy Ricardo MD LAB - HEMATOLOGY OR DERABLES Performing Organization Address City/[facility]/ZIP Co de Phone Number [facility] [address] [place] [phone], [place] [phone] * TYPE + SCREEN PANEL (09/14/2024 1:34 PM SHIP PILOT DISPATCHER) [facility] Antibody Screen NEG 2:38 PM SHIP PILOT DISPATCHER [facility] ABO Rh B POS 09/14/2024 2:38 PM SHIP PILOT DISPATCHER [facility] Blood Bank BLOOD SPECIMEN / Unknown Venipuncture / Unknown 09/14/2024 1:34 PM SHIP PILOT DISPATCHER 09/14/2024 1:51 PM SHIP PILOT DISPATCHER Eloy Ricardo MD LAB - BLOOD BANK OR DERABLES Performing Organization Address [facility]/ZIP Co de Phone Number [facility] [address] [place] [address], [place] [phone] * TROPONIN-I HIGH SENSITIVE BASELINE + 1HR (09/14/2024 1:34 PM SHIP PILOT DISPATCHER) [facility] Troponin I High Sensitive 10 <=35 ng/L 09/14/2024 2:24 PM SHIP PILOT DISPATCHER [facility] Blood BLOOD SPECIMEN / Unknown Venipuncture / Unknown 09/14/2024 1:34 PM SHIP PILOT DISPATCHER 09/14/2024 1:50 PM SHIP PILOT DISPATCHER Eloy Ricardo MD LAB - CHEMISTRY ORD ERABLES Performing Organization Address [facility]/ZIP Co de Phone Number [facility] [address] [place] [address], [place] [phone] * (ABNORMAL) COMPREHENSIVE METABOLIC PANEL (09/14/2024 1:34 PM SHIP PILOT DISPATCHER) [facility] BUN 29(H) 7 - 26 mg/dL 09/14/2024 2:20 PM SHIP PILOT DISPATCHER [facility] Creatinine 1.04 0.71 - 1.16 mg/dL 09/14/2024 2:20 PM [facility] Sodium 137 136 - 145 mmol/L 09/14/2024 2:20 PM [facility] Potassium 5.1(H) 3.5 - 4.5 mmol/L 09/14/2024 2:20 PM [facility] Chloride 106 98 - 107 mmol/L 09/14/2024 2:20 PM [facility] CO2 22 22 - 29 mmol/L 09/14/2024 2:20 PM [facility] Glucose 96 70 - 99 mg/dL 09/14/2024 2:20 PM [facility] Calcium 8.5 8.4 - 10.2 mg/dL 09/14/2024 2:20 PM [facility] Protein Total 6.2 6.0 - 8.3 g/dL 09/14/2024 2:20 PM [facility] Albumin 3.0(L) 3.4 - 5.0 g/dL 09/14/2024 2:20 PM [facility] Bilirubin Total 0.3 0.2 - 1.2 mg/dL 09/14/2024 2:20 PM [facility] Alkaline Phosphatase 130 40 - 150 U/L 09/14/2024 2:20 PM [facility] ALT 15 5 - 55 U/L 09/14/2024 2:20 PM [facility] AST 28 5 - 34 U/L 09/14/2024 2:20 PM [facility] Anion Gap 9 6 - 16 09/14/2024 2:20 PM [facility] BUN/Creatinine Ratio 28(H) 7 - 23 09/14/2024 2:20 PM [facility] Osmolality Calculated 290 275 - 295 mOsm/kg 09/14/2024 2:20 PM [facility] Albumin/Globulin Ratio 0.9(L) 1.1 - 2.3 09/14/2024 2:20 PM [facility] eGFR by CKD-EPI 69(L) >=90 mL/min/1.7 3 m2 09/14/2024 2:20 PM [facility] Blood BLOOD SPECIMEN / Unknown Venipuncture / Unknown 09/14/2024 1:34 PM SHIP PILOT DISPATCHER 09/14/2024 1:50 PM SHIP PILOT DISPATCHER Eloy Ricardo MD LAB - CHEMISTRY ORD ERABLES [facility] [address] [place] [address], [facility] [phone] * (ABNORMAL) CBC W AUTO DIFFERENTIAL (09/14/2024 1:34 PM SHIP PILOT DISPATCHER) WBC 9.2 4.0 - 10.7 x10E9/L 09/14/2024 2:18 PM [facility] RBC Count 2.83(L) 4.30 - 5.80 x10E12/L 09/14/2024 2:18 PM [facility] Hemoglobin 8.9(L) 13.3 - 17.5 g/dL 09/14/2024 2:18 PM [facility] Hematocrit 26.8(L) 38.7 - 51.1 % 09/14/2024 2:18 PM [facility] MCV 94.7 80.0 - 98.0 fL 09/14/2024 2:18 PM [facility] MCH 31.4 26.7 - 33.6 pg 09/14/2024 2:18 PM [facility] MCHC 33.2 31.7 - 36.3 g/dL 09/14/2024 2:18 PM [facility] RDW-CV 13.9 11.3 - 14.8 % 09/14/2024 2:18 PM [facility] Platelet Count 283 150 - 420 x10E9/L 09/14/2024 2:18 PM [facility] MPV 10.1 7.8 - 11.4 fL 09/14/2024 2:18 PM [facility] Neutrophil % 76.0(H) 41.0 - 74.0 % 09/14/2024 2:18 PM [facility] Lymphocyte % 12.9(L) 17.0 - 47.0 % 09/14/2024 2:18 PM [facility] Monocyte % 8.0 3.0 - 11.0 % 09/14/2024 2:18 PM [facility] Eosinophil % 1.0 0.0 - 7.0 % 09/14/2024 2:18 PM [facility] Basophil % 0.7 0.0 - 1.6 % 09/14/2024 2:18 PM [facility] Immature Granulocytes % 1.4(H) 0.0 - 1.0 % 09/14/2024 2:18 PM [facility] Neutrophil Absolute 6.97 1.60 - 7.50 x10E9/L 09/14/2024 2:18 PM [facility] Lymphocyte Absolute 1.18 1.00 - 4.40 x10E9/L 09/14/2024 2:18 PM [facility] Monocyte Absolute 0.73 0.15 - 1.00 x10E9/L 09/14/2024 2:18 PM [facility] Eosinophil Absolute 0.09 0.00 - 0.60 x10E9/L 09/14/2024 2:18 PM [facility] Basophil Absolute 0.06 0.00 - 0.13 x10E9/L 09/14/2024 2:18 PM [facility] Blood BLOOD SPECIMEN / Unknown Venipuncture / Unknown 09/14/2024 1:34 PM SHIP PILOT DISPATCHER 09/14/2024 1:50 PM SHIP PILOT DISPATCHER Eloy Ricardo MD LAB - HEMATOLOGY OR DERABLES Performing Organization Address [facility]/State/[facility] Co de Phone Number [facility] [address] [place] [address], [facility] [phone] documented in this encounter Visit Diagnoses Diagnosis Dementia with agitation, unspecified dementia severity, unspecified dementia type (HCC)- Primary Fall, initial encounter History of subdural hematoma Delirium Other alteration of consciousness documented in this encounter Administered Medications Inactive Administered Medications - up to 3 most recent administrations Medication Order MAR Action Action Date Dose Rate Site apixaban (Eliquis) tablet 2.5 mg 2.5 mg, Oral, 2 TIMES DAILY, First dose on 09/14/24 at 2230, Until Discontinued $ Given 09/14/2024 10:51 PM [employer]PATCH[employer] 2.5 mg escitalopram (Lexapro) tablet 10 mg 10 mg, Oral, DAILY, First dose on 09/15/24 at 0900, Until Discontinued haloperidol lactate (Haldol) injection 5 mg 5 mg, Intramuscular, ONCE, 1 dose, On 09/14/24 at 1330 $ Given 09/14/2024 1:25 PM [employer] DISPATCH[employer] 5 mg Left Deltoid levETIRAcetam (Keppra) tablet 500 mg 500 mg, Oral, 2 TIMES DAILY, First dose on 09/14/24 at 2200, Until Discontinued, Do not crush or chew because of TASTE only. $ Given 09/14/2024 10:51 PM [employer] DISPATCHER 500 mg QUEtiapine (SEROquel) tablet 12.5 mg 12.5 mg, Oral, AT BEDTIME, First dose on 09/14/24 at 2200, Until Discontinued $ Given 09/14/2024 10:51 PM [employer] DISPATCHER 12.5 mg QUEtiapine (SEROquel) tablet 25 mg 25 mg, Oral, NOW, 1 dose, On 09/14/24 at 1515 $ Given 09/14/2024 3:37 PM [employer] DISPATCHER 25 mg QUEtiapine (SEROquel) tablet 25 mg 25 mg, Oral, DAILY, First dose on 09/15/24 at 0900, Until Discontinued documented in this encounter Active and Recently Administered Medications Times are shown in [employer]. Scheduled Medication Order 09/13/2024 09/14/2024 09/15/2024 apixaban (Eliquis) tablet 2.5 mg 2.5 mg, Oral, 2 TIMES DAILY, First dose on 09/14/24 at 2230, Until Discontinued 2251 ($ Given - Provider: Chelo Matta RN) 0900 (Due) escitalopram (Lexapro) tablet 10 mg 10 mg, Oral, DAILY, First dose on 09/15/24 at 0900, Until Discontinued 0900 (Due) haloperidol lactate (Haldol) injection 5 mg (COMPLETED)(Linked Group 1) 5 mg, Intramuscular, ONCE, 1 dose, On 09/14/24 at 1330 1325 ($ Given - Provider: Fabiola Lezama RN - Comment: Pt given zyprexa PO and haldol IM despite linked order, per MD) levETIRAcetam (Keppra) tablet 500 mg 500 mg, Oral, 2 TIMES DAILY, First dose on 09/14/24 at 2200, Until Discontinued, Do not crush or chew because of TASTE only. 2251 ($ Given - Provider: Chelo Matta RN) 0900 (Due) QUEtiapine (SEROquel) tablet 12.5 mg 12.5 mg, Oral, AT BEDTIME, First dose on 09/14/24 at 2200, Until Discontinued 2251 ($ Given - Provider: Chelo Matta RN) QUEtiapine (SEROquel) tablet 25 mg (COMPLETED) 25 mg, Oral, NOW, 1 dose, On 09/14/24 at 1515 1537 ($ Given - Provider: Florentin Pittman RN) QUEtiapine (SEROquel) tablet 25 mg 25 mg, Oral, DAILY, First dose on 09/15/24 at 0900, Until Discontinued 0900 (Due) Linked Groups Order Group 1: OLANZapine (disintegrating) (ZyPREXA Zydis) tablet 10 mg (COMPLETED) 10 mg, Oral, ONCE, 1 dose, On 09/14/24 at 1330 Or haloperidol lactate (Haldol) injection 5 mg (COMPLETED)Jump to med 5 mg, Intramuscular, ONCE, 1 dose, On 09/14/24 at 1330 documented in this encounter Care Teams Seat Trimmer Relationship Specialty Start Date End Date Bao Pierre MD PCP - General Internal Medicine 07/09/17 documented as of this encounter
--- OUTSIDE RECORDS SUMMARY | 2024-10-01 08:35 | XMS_ITS | Referral Summary ---
Author Organization [facility] Address [address] [facility] [place] [address] Care Team Providers Care Gym Attendant Name Role Phone Bao Pierre MD Primary Care Provider [phone] Source Comments [facility],non-owned Affiliates and Associated Physician Practices is amultiple site organization consisting of ambulatory clinics and hospital sitesin [place], [place], [place] and [place]. This disclosure is being madepursuant to the Care Everywhere program and may not contain all information available regarding this patient. Last updated 18.[facility] Encounters Date Type Department Care Team Description 09/15/2024 10:02 AM STEEL SAMPLER - 09/23/2024 9:43 PM [facility] Hospital Encounter [facility] 3E MED/ONC [address] [place] [address] Whit Vázquez DO Onyechi, Afoma, MD Brown, Micahla C, MD Hospitalist Discharge Disposition: Fdc or Supportive Care 09/14/2024 12:23 PM STEEL SAMPLER - 09/15/2024 9:39 AM [facility] Emergency [facility] [address] [place] [phone] Eloy Ricardo MD Mollman, Matthew, MD Barrera Pena, Fabio A, MD Dementia with agitation, unspecified dementia severity, unspecified dementia type (HCC) (Primary Dx); Fall, initial encounter; History of subdural hematoma; Delirium Discharge Disposition: Inpatient Hospital 09/14/2024 Travel 09/13/2024 Transitional Care [facility] [address] [place] [phone] Thelma Caldera, NIKKIE Transitions Of Care 09/07/2024 4:08 PM STEEL SAMPLER - 09/12/2024 1:13 PM STEEL SAMPLER Hospital Encounter [facility] [address]N [address] [place] [phone] Escobar Sorto MD Jain, Aman, DO Fernelius, Joshua, MD Heis, Farah, MD Hazam, MD Amanda Internal Medicine Discharge Disposition: Home or Self Care 09/08/2024 Travel 08/27/2024 10:53 PM STEEL SAMPLER - 09/06/2024 11:53 AM STEEL SAMPLER Hospital Encounter [facility] 8S ACUTE [address] [place] [phone] Alice Capps MD Naughton, MD Kristine Alexander, MD Olesya Riggs, MD Edouard Patel Ryan, DO Trauma Discharge Disposition: Home Health Care [facility] Travel from Last 3 Months Allergies Active Allergy Reactions Criticality Noted Date [...] deep vein thrombosis (DVT) 09/07/2024 09/17/2024 Immunizations Name Administration Dates Next Due INFLUENZA VACCINE, HIGH-DOSE , QUADR. (FLUZONE HIGH-DOSE QUADRIVALENT; 65Y+), 0.7 ML (HD-IIV4) 06/18/2020,07/09/2017,08/11/2016 TDAP (7yrs+) 08/27/2024 Social History Tobacco Use Types Packs/Day Years [...] and heating? Not hard at all 09/15/2024 [facility] - [facility] Stress [...] any time in the past 12 m [facility], were you homeless or living in a skilled nursing (including now)? No 09/15/2024 Sex and Gender Information Value Date Recorded Sex Assigned at Not on file Gender Identity Not on file Sexual Orientation Not on file Last Filed Vital Signs Vital Sign Reading Time Taken Comments Blood Pressure 126/65 09/23/2024 7:07 PM STEEL SAMPLER Pulse 71 09/23/2024 7:07 PM STEEL SAMPLER Temperature 36.4 ??C (97.6 ??F) 09/23/2024 7:07 PM CS T Respiratory Rate 17 09/23/2024 7:07 PM STEEL SAMPLER Oxygen Saturation 98% 09/23/2024 7:07 PM STEEL SAMPLER Inhaled Oxygen Concentration - - Weight 71.4 kg (157 lb 8 oz) 09/15/2024 10:11 AM STEEL SAMPLER Height 170.2 cm (5' 7 ) 09/15/2024 10:11 AM STEEL SAMPLER Body Mass Index 24.67 09/15/2024 10:11 AM STEEL SAMPLER Functional Status Functional Status Response Date of [...] person have difficulty concentrating/remembering/making decisions? Yes 09/15/2024 Plan of Treatment Upcoming Encounters Date Type Department Care Team (Late st Contact Info) Description 10/09/2024 11:30 AM STEEL SAMPLER Office Visit [facility] - Dermatology [address] [place] [phone] Katharine Bar MD [address] [place] [address] [place] [phone] 11/19/2024 8:30 AM STEEL SAMPLER Office Visit [facility] - Dermatology [address] [place] [phone] Patricia Jarvis MD [address] [place] [address] 11/22/2024 8:00 AM STEEL SAMPLER [facility] [address] [place] [phone] Chay Nieves MD [address] [place] [address] Procedures Procedure Name Priority Date/Time Associated Diagnosis Comments GLUCOSE - POINT OF CARE Routine 09/19/2024 11:59 AM STEEL SAMPLER GLUCOSE - POINT OF CARE Routine 09/19/2024 8:12 AM STEEL SAMPLER GLUCOSE - POINT OF CARE Routine 09/18/2024 10:06 PM STEEL SAMPLER GLUCOSE - POINT OF CARE Routine 09/18/2024 5:53 AM STEEL SAMPLER GLUCOSE - POINT OF CARE Routine 09/17/2024 11:57 PM STEEL SAMPLER GLUCOSE - POINT OF CARE Routine 09/17/2024 7:33 PM STEEL SAMPLER GLUCOSE - POINT OF CARE Routine 09/17/2024 12:01 PM STEEL SAMPLER GLUCOSE - POINT OF CARE Routine 09/17/2024 5:49 AM STEEL SAMPLER RENAL FUNCTION PANEL AM Draw 09/17/2024 4:57 AM STEEL SAMPLER GLUCOSE - POINT OF CARE Routine 09/17/2024 12:24 AM STEEL SAMPLER GLUCOSE - POINT OF CARE Routine 09/16/2024 7:24 PM STEEL SAMPLER GLUCOSE - POINT OF CARE Routine 09/16/2024 12:10 PM STEEL SAMPLER GLUCOSE - POINT OF CARE Routine 09/16/2024 6:08 AM STEEL SAMPLER CBC W/O DIFFERENTIAL Routine 09/16/2024 3:04 AM STEEL SAMPLER BASIC METABOLIC PANEL (CALCIUM TOTAL) Routine 09/16/2024 3:04 AM STEEL SAMPLER GLUCOSE - POINT OF CARE Routine 09/16/2024 12:29 AM STEEL SAMPLER GLUCOSE - POINT OF CARE Routine 09/15/2024 8:29 PM STEEL SAMPLER CBC W AUTO DIFFERENTIAL STAT 09/15/2024 12:56 PM STEEL SAMPLER PT EVAL AND TREAT Routine 09/15/2024 12: 46 PM STEEL SAMPLER OT EVAL AND TREAT Routine 09/15/2024 12: 46 PM STEEL SAMPLER COMPREHENSIVE METABOLIC PANEL STAT 09/15/2024 11:[address] HEAD WO CONTRAST STAT 09/14/2024 5 :31 PM STEEL SAMPLER Fall, initial encounter TROPONIN-I HIGH SENSITIVE REFLEX 1HOUR Timed 09/14/2024 3:45 PM STEEL SAMPLER TEG 6S PLATELET MAPPING STAT 09/14/2024 3:45 PM STEEL SAMPLER XR CHEST 1VW PORTABLE STAT 09/14/2024 2:49 PM STEEL SAMPLER Fall, initial encounter PT-INR [facility] STAT 09/14/2024 1:44 PM STEEL SAMPLER URINALYSIS REFLEX MICROSCOPIC REFLEX CULTURE STAT 09/14/2024 1:35 PM STEEL SAMPLER TYPE + SCREEN PANEL STAT 09/14/2024 1 :34 PM STEEL SAMPLER LIPASE BLOOD STAT 09/14/2024 1:34 PM STEEL SAMPLER TEG 6 GLOBAL HEMOSTASIS W/ LYSIS STAT 09/14/2024 1:34 PM STEEL SAMPLER TROPONIN-I HIGH SENSITIVE BASELINE + 1HR STAT 09/14/2024 1:34 PM STEEL SAMPLER COMPREHENSIVE METABOLIC PANEL STAT 09/14/2024 1:34 PM STEEL SAMPLER CBC W AUTO DIFFERENTIAL STAT 09/14/2024 1:34 PM STEEL SAMPLER PT-INR [facility] Routine 09/12/2024 6:13 AM STEEL SAMPLER CBC W/O DIFFERENTIAL Routine 09/11/2024 8:29 PM STEEL SAMPLER RENAL FUNCTION PANEL Routine 09/11/2024 8:28 PM STEEL SAMPLER PT-INR [facility] Routine 09/11/2024 4:45 AM STEEL SAMPLER CBC W/O DIFFERENTIAL Routine 09/10/2024 9:28 PM STEEL SAMPLER RENAL FUNCTION PANEL Routine 09/10/2024 9:27 PM STEEL SAMPLER PT-INR [facility] Routine 09/10/2024 6:10 AM STEEL SAMPLER RENAL FUNCTION PANEL Routine 09/09/2024 9:49 PM STEEL SAMPLER CBC W/O DIFFERENTIAL Routine 09/09/2024 9:49 PM STEEL SAMPLER VAS LEFT VENOUS DUPLEX UE STAT 09/09/2024 11:37 AM STEEL SAMPLER Left arm swelling PT-INR [facility] Routine 09/09/2024 10:40 AM STEEL SAMPLER LEVETIRACETAM LEVEL AM Draw 09/09/2024 6 :43 AM STEEL SAMPLER RENAL FUNCTION PANEL Routine 09/08/2024 8:07 PM STEEL SAMPLER CBC W/O DIFFERENTIAL Routine 09/08/2024 8:07 PM STEEL SAMPLER VITAMIN B12 Routine 09/08/2024 8:07 PM STEEL SAMPLER FOLATE Routine 09/08/2024 8:07 PM STEEL SAMPLER IRON + TRANSFERRIN PANEL Routine 09/08/2024 8:07 PM STEEL SAMPLER CULTURE BLOOD STAT 09/08/2024 8:07 PM STEEL SAMPLER GLUCOSE - POINT OF CARE Routine 09/08/2024 4:25 PM STEEL SAMPLER PHOSPHORUS BLOOD Routine 09/08/2024 5:45 AM STEEL SAMPLER MAGNESIUM BLOOD Routine 09/08/2024 5:45 AM STEEL SAMPLER CBC W/O DIFFERENTIAL Routine 09/08/2024 5:45 AM STEEL SAMPLER BASIC METABOLIC PANEL (CALCIUM TOTAL) Routine 09/08/2024 5:45 AM STEEL SAMPLER PT-INR [facility] Routine 09/08/2024 5:45 AM STEEL SAMPLER URINE MICROSCOPIC ONLY REFLEX TO CULTURE STAT 09/07/2024 6:37 PM STEEL SAMPLER URINALYSIS REFLEX MICROSCOPIC REFLEX CULTURE STAT 09/07/2024 6:37 PM STEEL SAMPLER CULTURE URINE STAT 09/07/2024 6:37 PM STEEL SAMPLER XR HUMERUS LEFT 2VW OR MORE STAT 09/07/2024 6:31 PM STEEL SAMPLER Left arm swelling D-DIMER STAT 09/07/2024 5:14 PM STEEL SAMPLER PTT [facility] STAT 09/07/2024 5:14 PM STEEL SAMPLER PT-INR [facility] STAT 09/07/2024 5:14 PM STEEL SAMPLER C-REACTIVE PROTEIN FELICITY 09/07/2024 5: 14 PM STEEL SAMPLER ERYTHROCYTE SEDIMENTATION RATE STAT 09/07/2024 5:14 PM STEEL SAMPLER COMPREHENSIVE METABOLIC PANEL STAT 09/07/2024 5:14 PM STEEL SAMPLER CBC W AUTO DIFFERENTIAL STAT 09/07/2024 5:14 PM STEEL SAMPLER MRI BRAIN WWO CONTRAST PENDING DISCHARGE 09/05/2024 9:33 AM STEEL SAMPLER Altered mental status, unspecified altered mental status type EKG 12-LEAD Routine 08/30/2024 1:59 PM STEEL SAMPLER SDH (subdural hematoma) (HCC) XR ANKLE LEFT 3VW OR MORE Routine 08/30/2024 10:22 AM STEEL SAMPLER Fall, initial encounter CT HEAD WO CONTRAST STAT 08/29/2024 1 0:56 AM STEEL SAMPLER SDH (subdural hematoma) (HCC) PHOSPHORUS BLOOD Routine 08/29/2024 4:48 AM STEEL SAMPLER MAGNESIUM BLOOD Routine 08/29/2024 4:48 AM STEEL SAMPLER BASIC METABOLIC PANEL (CALCIUM TOTAL) AM Draw 08/29/2024 4:48 AM STEEL SAMPLER CBC W/O DIFFERENTIAL AM Draw 08/29/2024 4:48 AM STEEL SAMPLER URINALYSIS REFLEX TO MICROSCOPIC NO CULTURE Routine 08/28/2024 8:52 PM STEEL SAMPLER URINE DRUG SCREEN IMMUNOASSAY STAT 08/28/2024 8:52 PM STEEL SAMPLER BLOOD TYPE VERIFICATION STAT 08/28/2024 8:23 PM STEEL SAMPLER SARS-COV-2 (COVID-19) RAPID STAT 08/28/2024 11:05 AM STEEL SAMPLER Trauma XR ELBOW LEFT 3VW OR MORE STAT 08/27/2024 11:41 PM STEEL SAMPLER Trauma XR ANKLE LEFT 3VW OR MORE STAT 08/27/2024 11:41 PM STEEL SAMPLER Trauma CT LUMBAR SPINE WO CONTRAST STAT 08/27/2024 11:34 PM STEEL SAMPLER Trauma CT THORACIC SPINE WO CONTRAST STAT 08/27/2024 11:34 PM STEEL SAMPLER Trauma CT CHEST ABDOMEN PELVIS W CONT STAT 08/27/2024 11:34 PM STEEL SAMPLER Trauma CT CERVICAL SPINE WO CONTRAST STAT 08/27/2024 11:34 PM STEEL SAMPLER Trauma CT FACIAL BONES WO CONTRAST STAT 08/27/2024 11:34 PM STEEL SAMPLER Trauma CT HEAD WO CONTRAST STAT 08/27/2024 1 1:34 PM STEEL SAMPLER Trauma XR CHEST 1VW PORTABLE STAT 08/27/2024 11:33 PM STEEL SAMPLER Trauma XR PELVIS 1 OR 2VW STAT 08/27/2024 11 :33 PM STEEL SAMPLER Trauma TYPE + SCREEN PANEL STAT 08/27/2024 1 1:05 PM STEEL SAMPLER TEG 6S PLATELET MAPPING STAT 08/27/2024 11:05 PM STEEL SAMPLER TEG 6 GLOBAL HEMOSTASIS W/ LYSIS STAT 08/27/2024 11:05 PM STEEL SAMPLER PTT SLH STAT 08/27/2024 11:05 PM STEEL SAMPLER PT-INR [facility] STAT 08/27/2024 11:05 PM STEEL SAMPLER CK BLOOD STAT 08/27/2024 11:05 PM STEEL SAMPLER CBC W AUTO DIFFERENTIAL STAT 08/27/2024 11:05 PM STEEL SAMPLER BASIC METABOLIC PANEL (CALCIUM TOTAL) STAT 08/27/2024 11:05 PM STEEL SAMPLER ALCOHOL ETHYL BLOOD STAT 08/27/2024 1 1:05 PM STEEL SAMPLER from Last 3 Months Results * (ABNORMAL) GLUCOSE - POINT OF CARE (09/19/2024 11:59 AM STEEL SAMPLER) Only the most recent of15 resultswithin the time period is included. Glucose WB/POC 107(H) 70 - 99 mg/dL 09/30/2024 7:07 AM STEEL SAMPLER [facility] Specimen Type Cap Fingerstick 2023 7:07 AM STEEL SAMPLER [facility] Blood BLOOD SPECIMEN / Unknown 09/19/2024 11:59 AM STEEL SAMPLER 09/30/2024 7:07 AM STEEL SAMPLER Andre Fisher MD LAB - POINT OF CARE ORDERABLES [facility] [address] [place] [phone] * (ABNORMAL) RENAL FUNCTION PANEL (09/17/2024 4:57 AM STEEL SAMPLER) Only the most recent of5 resultswithin the time period is included. [facility] Glucose 87 70 - 99 mg/dL 09/17/2024 5:51 AM [facility] Sodium 140 136 - 145 mmol/L 09/17/2024 5:51 AM [facility] Potassium 4.1 3.5 - 5.1 mmol/L 09/17/2024 5:51 AM [facility] Chloride 110(H) 98 - 107 mmol/L 09/17/2024 5:51 AM [facility] CO2 22 22 - 29 mmol/L 09/17/2024 5:51 AM [facility] Calcium 8.8 8.4 - 10.4 mg/dL 09/17/2024 5:51 AM [facility] Anion Gap 8 6 - 16 mmol/L 09/17/2024 5:51 AM [facility] BUN 26 7 - 26 mg/dL 09/17/2024 5:51 AM [facility] Creatinine 0.87 0.72 - 1.25 mg/dL 09/17/2024 5:51 AM [facility] Albumin 3.0(L) 3.4 - 5.0 gm/dL 09/17/2024 5:51 AM [facility] Phosphorus 3.1 2.5 - 4.5 mg/dL 09/17/2024 5:51 AM [facility] eGFR by CKD-EPI 83(L) >=90 mL/min/1.7 3 m2 09/17/2024 5:51 AM [facility] Blood BLOOD SPECIMEN / Unknown Lab Venipuncture / Unknown 09/17/2024 4:57 AM STEEL SAMPLER 09/17/2024 5:23 AM STEEL SAMPLER Melissa Alvarez MD LAB - CHEMISTRY LISANDRO HUGHES [facility] [address] [place] [address] * (ABNORMAL) CBC W/O DIFFERENTIAL (09/16/2024 3:04 AM STEEL SAMPLER) Only the most recent of7 resultswithin the time period is included. WBC 10.1 4.0 - 10.7 x10E9/L 09/16/2024 4:05 AM [facility] RBC Count 2.76(L) 4.30 - 5.80 x10E12/L 09/16/2024 4:05 AM [facility] Hemoglobin 8.6(L) 13.3 - 17.5 g/dL 09/16/2024 4:05 AM [facility] Hematocrit 26.1(L) 38.7 - 51.1 % 09/16/2024 4:05 AM [facility] MCV 94.6 80.0 - 98.0 fL 09/16/2024 4:05 AM [facility] MCH 31.2 26.7 - 33.6 pg 09/16/2024 4:05 AM [facility] MCHC 33.0 31.7 - 36.3 g/dL 09/16/2024 4:05 AM [facility] RDW-CV 13.9 11.3 - 14.8 % 09/16/2024 4:05 AM [facility] Platelet Count 315 150 - 420 x10E9/L 09/16/2024 4:05 AM [facility] MPV 9.6 7.8 - 11.4 fL 09/16/2024 4:05 AM [facility] Blood BLOOD SPECIMEN / Unknown Lab Venipuncture / Unknown 09/16/2024 3:04 AM STEEL SAMPLER 09/16/2024 3:47 AM STEEL SAMPLER Kalee Juares APRN-CTC OPERATOR LAB - HEMATO LOGY ORDERABLES [facility] [address] [place], [place] [id number] * (ABNORMAL) BASIC METABOLIC PANEL (CALCIUM TOTAL) (09/16/2024 3:04 AM STEEL SAMPLER) Only the most recent of4 resultswithin the time period is included. Pathologist [facility] Glucose 94 70 - 99 mg/dL 09/16/2024 4:17 AM [facility] Sodium 137 136 - 145 mmol/L 09/16/2024 4:17 AM [facility] Potassium 4.1 3.5 - 5.1 mmol/L 09/16/2024 4:17 AM [facility] Chloride 107 98 - 107 mmol/L 09/16/2024 4:17 AM [facility] CO2 24 22 - 29 mmol/L 09/16/2024 4:17 AM [facility] Calcium 8.4 8.4 - 10.4 mg/dL 09/16/2024 4:17 AM [facility] Anion Gap 6 6 - 16 mmol/L 09/16/2024 4:17 AM [facility] BUN 30(H) 7 - 26 mg/dL 09/16/2024 4:17 AM [facility] Creatinine 1.38(H) 0.72 - 1.25 mg/dL 09/16/2024 4:17 AM [facility] eGFR by CKD-EPI 49(L) >=90 mL/min/1.7 3 m2 09/16/2024 4:17 AM [facility] Blood BLOOD SPECIMEN / Unknown Lab Venipuncture / Unknown 09/16/2024 3:04 AM STEEL SAMPLER 09/16/2024 3:47 AM [facility] Kalee Juares CARDIOPULMONARY SUPERVISOR-CTC OPERATOR LAB - CHEMIS TRY ORDERABLES Performing Organization Address City/State/[facility] [place] Co de Phone Number [facility] [address] [place] [address] * (ABNORMAL) CBC W AUTO DIFFERENTIAL (09/15/2024 12:56 PM STEEL SAMPLER) Only the most recent of4 resultswithin the time period is included. Pathologist [facility] WBC 10.2 4.0 - 10.7 x10E9/L 09/15/2024 1:05 PM [facility] RBC Count 2.82(L) 4.30 - 5.80 x10E12/L 09/15/2024 1:05 PM [facility] Hemoglobin 8.9(L) 13.3 - 17.5 g/dL 09/15/2024 1:05 PM [facility] Hematocrit 27.3(L) 38.7 - 51.1 % 09/15/2024 1:05 PM [facility] MCV 96.8 80.0 - 98.0 fL 09/15/2024 1:05 PM [facility] MCH 31.6 26.7 - 33.6 pg 09/15/2024 1:05 PM [facility] MCHC 32.6 31.7 - 36.3 g/dL 09/15/2024 1:05 PM [facility] RDW-CV 14.0 11.3 - 14.8 % 09/15/2024 1:05 PM [facility] Platelet Count 275 150 - 420 x10E9/L 09/15/2024 1:05 PM [facility] MPV 9.5 7.8 - 11.4 fL 09/15/2024 1:05 PM [facility] Neutrophil % 81.4(H) 41.0 - 74.0 % 09/15/2024 1:05 PM [facility] Lymphocyte % 9.2(L) 17.0 - 47.0 % 09/15/2024 1:05 PM [facility] Monocyte % 5.7 3.0 - 11.0 % 09/15/2024 1:05 PM [facility] Eosinophil % 2.3 0.0 - 7.0 % 09/15/2024 1:05 PM [facility] Basophil % 0.5 0.0 - 1.6 % 09/15/2024 1:05 PM [facility] Immature Granulocytes % 0.9 0.0 - 1.0 % 09/15/2024 1:05 PM [facility] Neutrophil Absolute 8.31(H) 1.60 - 7.50 x10E9/L 09/15/2024 1:05 PM [facility] Lymphocyte Absolute 0.94(L) 1.00 - 4.40 x10E9/L 09/15/2024 1:05 PM [facility] Monocyte Absolute 0.58 0.15 - 1.00 x10E9/L 09/15/2024 1:05 PM [facility] Eosinophil Absolute 0.23 0.00 - 0.60 x10E9/L 09/15/2024 1:05 PM [facility] Basophil Absolute 0.05 0.00 - 0.13 x10E9/L 09/15/2024 1:05 PM [facility] Blood BLOOD SPECIMEN / Unknown Lab Venipuncture / Unknown 09/15/2024 12:56 PM STEEL SAMPLER 09/15/2024 1:00 PM STEEL SAMPLER Kalee Juares CARDIOPULMONARY SUPERVISOR-CTC OPERATOR LAB - HEMATO LOGY ORDERABLES [facility] [address] [place] [address] * (ABNORMAL) COMPREHENSIVE METABOLIC PANEL (09/15/2024 11:20 AM [facility]) Only the most recent of3 resultswithin the time period is included. Glucose 101(H) 70 - 99 mg/dL 09/15/2024 12:16 PM [facility] Sodium 137 136 - 145 mmol/L 09/15/2024 12:16 PM [facility] Potassium 4.7 3.5 - 5.1 mmol/L 09/15/2024 12:16 PM [facility] Chloride 106 98 - 107 mmol/L 09/15/2024 12:16 PM [facility] CO2 25 22 - 29 mmol/L 09/15/2024 12:16 PM [facility] Calcium 8.4 8.4 - 10.4 mg/dL 09/15/2024 12:16 PM [facility] Anion Gap 6 6 - 16 mmol/L 09/15/2024 12:16 PM [facility] BUN 32(H) 7 - 26 mg/dL 09/15/2024 12:16 PM [facility] Creatinine 1.71(H) 0.72 - 1.25 mg/dL 09/15/2024 12:16 PM [facility] Alkaline Phosphatase 122 40 - 150 U/L 09/15/2024 12:16 PM [facility] ALT 13 0 - 55 U/L 09/15/2024 12:16 PM [facility] AST 25 5 - 34 U/L 09/15/2024 12:16 PM [facility] Protein Total 5.7(L) 6.4 - 8.3 gm/dL 09/15/2024 12:16 PM STEEL SAMPLER [facility] Albumin 2.8(L) 3.4 - 5.0 gm/dL 09/15/2024 12:16 PM STEEL SAMPLER [facility] Bilirubin Total 0.4 0.2 - 1.2 mg/dL 09/15/2024 12:16 PM STEEL SAMPLER [facility] eGFR by CKD-EPI 38(L) >=90 mL/min/1.7 3 m2 09/15/2024 12:16 PM STEEL SAMPLER [facility] Blood BLOOD SPECIMEN / Unknown Lab Venipuncture / Unknown 09/15/2024 11:20 AM STEEL SAMPLER 09/15/2024 11:52 AM STEEL SAMPLER Kalee Juares CARDIOPULMONARY SUPERVISOR-CTC OPERATOR LAB - CHEMIS TRY ORDERABLES [facility] [address] [place] [id number] * CT Head Wo Contrast (09/14/2024 5:31 PM STEEL SAMPLER) Only the most recent of3 resultswithin the time period is included. Anatomical Region Laterality Modality Head Computed Tomogra phy 09/14/2024 5:37 PM STEEL SAMPLER Impressions 09/14/2024 5:46 PM STEEL SAMPLER IMPRESSION: Bilateral predominantly hypodense subdural collections/chronic subdural [...] 09/14/2024 5:46 PM Narrative 09/14/2024 5:46 PM STEEL SAMPLER PROCEDURE: ??CT HEAD WO CONTRAST, DATE/TIME OF EXAM: ??09/14/2024 5:32 PM, LOCATION ??[facility] INDICATION: W19.XXXA: Fall, initial encounter ADDITIONAL CLINICAL [...] DATE/TIME OF EXAM: 09/14/2024 5:32 PM, LOCATION [facility] INDICATION: W19.XXXA: Fall, initial encounter ADDITIONAL CLINICAL [...] HIGH SENSITIVE REFLEX 1HOUR (09/14/2024 3:45 PM STEEL SAMPLER) Troponin I High Sensitive 10 <=35 ng/L 09/14/2024 4:41 PM STEEL SAMPLER [facility] Delta Troponin I HS 09/14/2024 4:41 PM STEEL SAMPLER [facility] Comment:Delta value intentio shahida not calculated. Baseline to 1 hour specimen collection interval exceeded. Blood BLOOD SPECIMEN / Unknown Venipuncture / Unknown 09/14/2024 3:45 PM STEEL SAMPLER 09/14/2024 4:04 PM STEEL SAMPLER Eloy Ricardo MD LAB - CHEMISTRY ORD ERABLES [facility] [address] [place] [address], [facility] [phone] * (ABNORMAL) TEG 6S PLATELET MAPPING (09/14/2024 3:45 PM STEEL SAMPLER) Only the most recent of2 resultswithin the time period is included. TEGPLM (Max Amplitude) Koalin 69.2(H) 53.0 - 68.0 mm 09/14/2024 4:42 PM [facility] TEGPLM (Max Amplitude) ACTF 20.7(H) 2.0 - 19.0 mm 09/14/2024 4:42 PM [facility] TEGPLM (Max Amplitude) ADP 66.9 45.0 - 69.0 mm 09/14/2024 4:42 PM [facility] TEGPLM (Max Amplitude) AA 49.3(L) 51.0 - 71.0 mm 09/14/2024 4:42 PM [facility] Comment:AA MA below normal r abdi. Inhibition present. TEGPLM %Inhibition ADP 4.7 0.0 - 17.0 % 09/14/2024 4:42 PM [facility] TEGPLM %Inhibition AA 41.0(H) 0.0 - 11.0 % 09/14/2024 4:42 PM [facility] TEGPLM %Aggregation ADP 95.3 83.0 - 100.0 % 09/14/2024 4:42 PM [facility] TEGPLM % Aggregation AA 59.0(L) 89.0 - 100.0 % 09/14/2024 4:42 PM [facility] Blood BLOOD SPECIMEN / Unknown Venipuncture / Unknown 09/14/2024 3:45 PM STEEL SAMPLER 09/14/2024 4:04 PM STEEL SAMPLER Eloy Ricardo MD LAB - HEMATOLOGY OR DERABLES [address] [address], [facility] [phone] * XR CHEST 1VW PORTABLE (09/14/2024 2:49 PM STEEL SAMPLER) Only the most recent of2 resultswithin the time period is included. Anatomical Region Laterality Modality Chest Digital Radiogra phy 09/14/2024 5:40 PM STEEL SAMPLER Narrative 09/14/2024 8:37 PM STEEL SAMPLER PROCEDURE: ??XR CHEST 1VW PORTABLE, DATE/TIME OF EXAM: ??09/14/2024 2:49 PM, LOCATION ??[facility] INDICATION: W19.XXXA: Fall, initial encounter ADDITIONAL CLINICAL INFORMATION: Ordering Provider Reason For Exam: ??rule out pna COMPARISON: X-ray chest 08/27/2024. TECHNIQUE: Frontal radiograph of the chest. FINDINGS/IMPRESSION: There is no focal consolidation, pleural effusion, or pneumothorax. The cardiac silhouette is normal. There is atherosclerotic calcification of the aorta. The visible bony thorax is intact. Report dictated by Wesley Renner MD, (Garbage Truck Dispatcher). Jason Macedo MD have personally reviewed and interpreted this examination/study. > Interpreting Provider: Jason Mina MD on 09/14/2024 8:37 PM Procedure Note Jason Mina MD - 09/14/2024 PROCEDURE: XR CHEST 1VW PORTABLE, DATE/TIME OF EXAM: 09/14/2024 2:49PM, LOCATION [facility] INDICATION: W19.XXXA: Fall, initial encounter ADDITIONAL CLINICAL INFORMATION: Ordering Provider Reason For Exam: rule out pna COMPARISON: X-ray chest 08/27/2024. TECHNIQUE: Frontal radiograph of the chest. FINDINGS/IMPRESSION: There is no focal consolidation, pleural effusion, or pneumothorax. The cardiac silhouette is normal. There is atherosclerotic calcification ofthe aorta. The visible bony thorax is intact. Report dictated by Wesley Renner MD, (Garbage Truck Dispatcher). Jason Macedo MD have personally reviewed and interpreted this examination/study. > Interpreting Provider: Jason Mina MD on 09/14/2024 8:37 PM Eloy Ricardo MD DIAGNOSTIC IMAGING ORDERABLES * PT-INR [facility] (09/14/2024 1:44 PM STEEL SAMPLER) Only the most recent of8 resultswithin the time period is included. PT 13.7 12.1 - 14.8 Seconds 09/14/2024 2:12 PM STEEL SAMPLER [facility] INR 1.1 See Comment 09/14/2024 2:12 PM [facility] Comment:The suggested therap eutic range for standard coumadin (warfarin) therapy is an INR of 2.0-3.0. For high-risk patients (Mechanical Mitral Valve Prosthesis, etc.), the suggested prophylactic therapeutic range is an INR of 2.5-3.5. Blood BLOOD SPECIMEN / Unknown Venipuncture / Unknown 09/14/2024 1:44 PM STEEL SAMPLER 09/14/2024 1:50 PM STEEL SAMPLER Eloy Riacrdo MD LAB - COAGULATION O RDERABLES [facility] [address] [place] [address], [facility] [phone] * URINALYSIS REFLEX MICROSCOPIC REFLEX CULTURE (09/14/2024 1:35 PM STEEL SAMPLER) Only the most recent of2 resultswithin the time period is included. Color UA Yellow Straw, Yellow 09/14/2024 2:01 PM [facility] Clarity UA Clear Clear 09/14/2024 2:01 PM [facility] Specific Commerce UA 1.010 1.005 - 1.030 09/14/2024 2:01 PM [facility] pH UA 5.0 5.0 - 8.0 pH 09/14/2024 2:01 PM [facility] Protein UA Negative Negative 09/14/2024 2:01 PM [facility] Glucose UA Negative Negative 09/14/2024 2:01 PM [facility] Ketone UA Negative Negative 09/14/2024 2:01 PM [facility] Bilirubin UA Negative Negative 09/14/2024 2:01 PM [facility] Blood UA Negative Negative 09/14/2024 2:01 PM [facility] Nitrite UA Negative Negative 09/14/2024 2:01 PM [facility] Leukocyte Esterase Negative Negative 09/14/2024 2:01 PM [facility] Urobilinogen UA Negative Negative mg/dL 09/14/2024 2:01 PM [facility] Comment UA Microscopic not indicated. 09/14/2024 2:01 PM STEEL SAMPLER [facility] Urine URINE SPECIMEN OBTAINED BY CLEAN CATCH PROCEDURE / Unknown Collection / Unknown 09/14/2024 1:35 PM STEEL SAMPLER 09/14/2024 1:50 PM STEEL SAMPLER Narrative [facility] - 09/14/2024 2:01 PM STEEL SAMPLER Eloy Ricardo MD LAB - URINALYSIS OR DERABLES [facility] [address] [place] [address], [facility] [phone] * TEG 6 GLOBAL HEMOSTASIS W/ LYSIS (09/14/2024 1:34 PM STEEL SAMPLER) Only the most recent of2 resultswithin the time period is included. Citrated Kaolin R (Reaction Time) 6.2 4.6 - 9.1 min 09/14/2024 2:54 PM [facility] Citrated Kaolin LY30 (Lysis) 0.6 0.0 - 2.6 % 09/14/2024 2:54 PM [facility] Citrated Functional Fibrinogen MA (Max Amplitude) 30.7 15.0 - 32.0 mm 09/14/2024 2:54 PM [facility] Citrated RapidTEG MA (Max Amplitude) 69.2 52.0 - 70.0 mm 09/14/2024 2:54 PM [facility] Blood BLOOD SPECIMEN / Unknown Venipuncture / Unknown 09/14/2024 1:34 PM STEEL SAMPLER 09/14/2024 1:50 PM STEEL SAMPLER Eloy Ricardo MD LAB - HEMATOLOGY OR DERABLES [facility] [address] [place] [address], [facility] [phone] * TROPONIN-I HIGH SENSITIVE BASELINE + 1HR (09/14/2024 1:34 PM STEEL SAMPLER) Troponin I High Sensitive 10 <=35 ng/L 09/14/2024 2:24 PM [facility] Blood BLOOD SPECIMEN / Unknown Venipuncture / Unknown 09/14/2024 1:34 PM STEEL SAMPLER 09/14/2024 1:50 PM STEEL SAMPLER Eloy Ricardo MD LAB - CHEMISTRY ORD ERABLES Performing Organization Address City/[facility]/ZIP Co de Phone Number [facility] [address] [place] [address], [place] [phone] * TYPE + SCREEN PANEL (09/14/2024 1:34 PM STEEL SAMPLER) Only the most recent of2 resultswithin the time period is included. Antibody Screen NEG 2:38 PM STEEL SAMPLER [facility] ABO Rh B POS 09/14/2024 2:38 PM STEEL SAMPLER [facility] Blood Bank BLOOD SPECIMEN / Unknown Venipuncture / Unknown 09/14/2024 1:34 PM STEEL SAMPLER 09/14/2024 1:51 PM STEEL SAMPLER Eloy Ricardo MD LAB - BLOOD BANK OR DERABLES Performing Organization Address City/[facility]/ZIP Co de Phone Number [facility] [address] [place] [address], [place] [phone] * (ABNORMAL) LIPASE BLOOD (09/14/2024 1:34 PM STEEL SAMPLER) Lipase 80(H) 8 - 78 U/L 09/14/2024 2:20 PM STEEL SAMPLER [facility] Blood BLOOD SPECIMEN / Unknown Venipuncture / Unknown 09/14/2024 1:34 PM STEEL SAMPLER 09/14/2024 1:50 PM STEEL SAMPLER Narrative [facility] - 09/14/2024 2:20 PM STEEL SAMPLER Lipase results from the Amaral Alinity analyzer may not be comparable with other methodologies. Eloy Ricardo MD LAB - CHEMISTRY ORD ERABLES [facility] [address] [place] [address], [place] [phone] * VAS Left Venous Duplex Ue (09/09/2024 11:37 AM STEEL SAMPLER) Anatomical Region Laterality Modality Upper Extremity Ultrasound 09/09/2024 9:48 AM STEEL SAMPLER Narrative Procedure Note Tunde Scott MD - 09/09/2024 Issa Taveras MD VASCULAR LAB ORDERAB LES * LEVETIRACETAM LEVEL (09/09/2024 6:43 AM STEEL SAMPLER) Levetiracetam 21 10 - 40 ug/mL 09/11/2024 5:37 AM STEEL SAMPLER [facility] ([facility]) Comment: INTERPRETIVE INFORMATION: Keppra (Levetiracetam) Therapeutic Range: ??10-40 ug/mL ?Toxic: ??Not well Established Pharmacokinetics of levetiracetam are affected by renal function. Adverse effects may include somnolence, weakness, headache and vomiting. This levetiracetam (Keppra) immunoassay uses the [employer] reagents, which has known cross-reactivity with the drug brivaracetam (Briviact) and may report inaccurate results. Patients transitioning from levetiracetam to brivaracetam or those who are using both medications should not monitor drug concentrations with the [employer] assay. These patients should be monitored using a validated chromatographic methodology that distinguishes between drugs to determine drug concentrations. Performed By: [facility] [address] [place] [address] Calender Let Off Operator: Carlos A Alamo MD, PhD CLIA Number: [id number] Blood BLOOD SPECIMEN / Unknown Lab Venipuncture / Unknown 09/09/2024 6:43 AM STEEL SAMPLER 09/09/2024 6:54 AM STEEL SAMPLER Baljit Pratt MD LAB - THERAPEUTIC DR [place] MONITORING ORDERABLES [facility] ([facility]) [address] [place] [address], [facility] * CULTURE BLOOD (09/08/2024 8:07 PM STEEL SAMPLER) Pathologist [facility] Culture No growth day 5 GENE 09/14/2024 1:30 AM STEEL SAMPLER [facility] Blood PERIPHERAL BLOOD / Unknown Lab Venipuncture / Unknown 09/08/2024 8:07 PM STEEL SAMPLER 09/08/2024 9:01 PM STEEL SAMPLER Baljit Pratt MD LAB - MICROBIOLOGY O RDERABLES [facility] MICRO[facility]OLOG[facility] [address] [place] [address], [facility] [phone] * (ABNORMAL) FOLATE (09/08/2024 8:07 PM STEEL SAMPLER) Pathologist [facility] Folate 5.8(L) 7.0 - 31.4 ng/mL 09/08/2024 10:55 PM STEEL SAMPLER [facility] Blood BLOOD SPECIMEN / Unknown Lab Venipuncture / Unknown 09/08/2024 8:07 PM STEEL SAMPLER 09/08/2024 9:11 PM STEEL SAMPLER Baljit Pratt MD LAB - CHEMISTRY LISANDRO HUGHES Performing Organization Address City/[facility]/ZIP Co de Phone Number [address] [address], [place] [phone] * VITAMIN B12 (09/08/2024 8:07 PM STEEL SAMPLER) Pathologist [facility] Vitamin B12 603 213 - 816 pg/mL 09/08/2024 10:55 PM STEEL SAMPLER [facility] Blood BLOOD SPECIMEN / Unknown Lab Venipuncture / Unknown 09/08/2024 8:07 PM STEEL SAMPLER 09/08/2024 9:11 PM STEEL SAMPLER Baljit Pratt MD LAB - CHEMISTRY LISANDRO HUGHES [address] [address], [facility] [phone] * (ABNORMAL) IRON + TRANSFERRIN PANEL (09/08/2024 8:07 PM STEEL SAMPLER) Iron 48(L) 50 - 175 ug/dL 09/08/2024 10:22 PM [facility] Transferrin 144(L) 174 - 382 mg/dL 09/08/2024 10:22 PM [facility] Transferrin Saturation % 27 16 - 50 % 09/08/2024 10:22 PM [facility] TIBC Calculated 180(L) 240 - 450 ug/dL 09/08/2024 10:22 PM [facility] Blood BLOOD SPECIMEN / Unknown Lab Venipuncture / Unknown 09/08/2024 8:07 PM STEEL SAMPLER 09/08/2024 9:01 PM STEEL SAMPLER Baljit Pratt MD LAB - CHEMISTRY LISANDRO HUGHES [address] [address], [place] [phone] * PHOSPHORUS BLOOD (09/08/2024 5:45 AM STEEL SAMPLER) Only the most recent of2 resultswithin the time period is included. Phosphorus 3.2 2.8 - 5.1 mg/dL 09/08/2024 6:56 AM [facility] Blood BLOOD SPECIMEN / Unknown Lab Venipuncture / Unknown 09/08/2024 5:45 AM STEEL SAMPLER 09/08/2024 6:21 AM STEEL SAMPLER Issa Taveras MD LAB - CHEMISTRY LISANDRO HUGHES [address] [address], [place] [phone] * MAGNESIUM BLOOD (09/08/2024 5:45 AM STEEL SAMPLER) Only the most recent of2 resultswithin the time period is included. Magnesium 1.8 1.6 - 2.6 mg/dL 09/08/2024 6:56 AM [facility] Blood BLOOD SPECIMEN / Unknown Lab Venipuncture / Unknown 09/08/2024 5:45 AM STEEL SAMPLER 09/08/2024 6:21 AM STEEL SAMPLER Issa Taveras MD LAB - CHEMISTRY ORDE SAUL [facility] [address] [place] [address], [facility] [phone] * (ABNORMAL) URINE MICROSCOPIC ONLY REFLEX TO CULTURE (09/07/2024 6:37 PM STEEL SAMPLER) Reflex Status Culture to follow 09/07/2024 7:26 PM STEEL SAMPLER [facility] WBC UA 11-20(A) None Seen, 0-5 /HPF 09/07/2024 7:26 PM STEEL SAMPLER [facility] Bacteria UA Trace(A) None /HPF 09/07/2024 7:26 PM STEEL SAMPLER [facility] Squamous Epithelial Cells UA None Seen None Seen, 0-2, 3-5 /HPF 09/07/2024 7:26 PM STEEL SAMPLER [facility] Urine URINE SPECIMEN OBTAINED BY CLEAN CATCH PROCEDURE / Unknown Collection / Unknown 09/07/2024 6:37 PM STEEL SAMPLER 09/07/2024 6:51 PM STEEL SAMPLER Narrative [facility] - 09/07/2024 7:26 PM STEEL SAMPLER Escobar Sorto MD LAB - URINALYSIS ORD ERABLES Performing Organization Address City/[facility]/ZIP Co de Phone Number [address] [address], [facility] [phone] * (ABNORMAL) CULTURE URINE (09/07/2024 6:37 PM STEEL SAMPLER) Culture Urine >100,000 CFU/mL Staphylococcus aureus(A) GENE 09/09/2024 2:23 PM STEEL SAMPLER [facility] Comment:Staphylococcus aureu s methicillin-susceptible (MSSA) detected by penicillin binding protein immunoassay. Culture Urine 10,000-50,000 CFU/mL urogenital prema GENE 09/09/2024 2:23 PM STEEL SAMPLER [facility] Urine URINE SPECIMEN OBTAINED BY CLEAN CATCH PROCEDURE / Unknown Collection / Unknown 09/07/2024 6:37 PM STEEL SAMPLER 09/07/2024 7:26 PM STEEL SAMPLER Narrative [facility] - 09/09/2024 2:23 PM STEEL SAMPLER Staphylococcus aureus in urine may represent underlying [...] Sorto MD LAB - MICROBIOLOGY O RDERABLES [facility] [address] [place] [address], [facility] [phone] * XR Humerus Left 2Vw or More (09/07/2024 6:31 PM STEEL SAMPLER) Anatomical Region Laterality Modality Upper Extremity Digital Radiogra phy 09/07/2024 6:56 PM STEEL SAMPLER Impressions 09/07/2024 9:40 PM STEEL SAMPLER IMPRESSION: No acute humeral fracture identified. Report dictated by Dante Mcclain MD, MD (cmo & president). IJason MD have personally reviewed and interpreted this examination/study. > Interpreting Provider: Jason Mina MD on 09/07/2024 9:40 PM Narrative 09/07/2024 9:40 PM STEEL SAMPLER PROCEDURE: ??XR HUMERUS LEFT 2VW OR MORE, DATE/TIME OF EXAM: ??09/07/2024 6:31 PM, LOCATION ??[facility] INDICATION: M79.89: Left arm swelling ADDITIONAL CLINICAL INFORMATION: Ordering Provider Reason For Exam: ??swelling Technologist Note: Additional: COMPARISON: None. FINDINGS: The humerus is intact without acute fracture. Bone density and texture are normal. No soft tissue swelling. Procedure Note Jason Mina MD - 09/07/2024 PROCEDURE: XR HUMERUS LEFT 2VW OR MORE, DATE/TIME OF EXAM: 46:31 PM, LOCATION [facility] INDICATION: M79.89: Left arm swelling ADDITIONAL CLINICAL INFORMATION: Ordering Provider Reason For Exam: swelling Technologist Note: Additional: COMPARISON: None. FINDINGS: The humerus is intact without acute fracture. Bone density and textureare normal. No soft tissue swelling. IMPRESSION: No acute humeral fracture identified. Report dictated by Dante Mcclain MD, (cmo & president). I, Jason Mina MD have personally reviewed and interpreted this examination/study. > Interpreting Provider: Jason Mina MD on 09/07/2024 9:40 PM Escobar Sorto MD DIAGNOSTIC IMAGING O RDERABLES * PTT [facility] (09/07/2024 5:14 PM STEEL SAMPLER) Only the most recent of2 resultswithin the time period is included. Pathologist [facility] APTT 30.2 23.0 - 38.4 Seconds 09/07/2024 5:42 PM STEEL SAMPLER [facility] Comment:Suggested therapeuti c range for full dose I.V. unfractionated heparin therapy for venous thromboembolism is 71 to 109 seconds. Blood BLOOD SPECIMEN / Unknown Venipuncture / Unknown 09/07/2024 5:14 PM STEEL SAMPLER 09/07/2024 5:19 PM STEEL SAMPLER Escobar Sorto MD LAB - COAGULATION OR DERABLES [address] [address], [facility] [phone] * (ABNORMAL) C-REACTIVE PROTEIN (09/07/2024 5:14 PM STEEL SAMPLER) Pathologist [facility] C-Reactive Protein 3.8(H) <=0.5 mg/dL 09/07/2024 5:57 PM STEEL SAMPLER [facility] Blood BLOOD SPECIMEN / Unknown Venipuncture / Unknown 09/07/2024 5:14 PM STEEL SAMPLER 09/07/2024 5:23 PM STEEL SAMPLER Escobar Sorto MD LAB - CHEMISTRY ORDE SAUL [address] [address], [facility] [phone] * (ABNORMAL) D-DIMER (09/07/2024 5:14 PM STEEL SAMPLER) D-Dimer Quantitative 1.16(H) <=0.50 mcg/mL FEU 09/07/2024 6:35 PM STEEL SAMPLER [facility] Comment: In the absence of clinical [...] Unknown Venipuncture / Unknown 09/07/2024 5:14 PM STEEL SAMPLER 09/07/2024 5:19 PM STEEL SAMPLER Escobar Sorto MD LAB - COAGULATION OR DERABLES [facility] [address] [place] [address], [facility] [phone] * (ABNORMAL) ERYTHROCYTE SEDIMENTATION RATE (09/07/2024 5:14 PM STEEL SAMPLER) Erythrocyte Sedimentation Rate Lashaeren 55(H) 0 - 20 MM/HR 09/07/2024 5:41 PM STEEL SAMPLER [facility] Blood BLOOD SPECIMEN / Unknown Venipuncture / Unknown 09/07/2024 5:14 PM STEEL SAMPLER 09/07/2024 5:19 PM STEEL SAMPLER Escobar Sorto MD LAB - HEMATOLOGY ORD ERABLES [facility] [address] [place] [address], [facility] [phone] * MRI Brain Wwo Contrast (09/05/2024 9:33 AM STEEL SAMPLER) Anatomical Region Laterality Modality Head Magnetic Resonan ce 09/06/2024 7:33 AM STEEL SAMPLER Impressions 09/06/2024 7:49 AM STEEL SAMPLER IMPRESSION: 1.Redemonstration of bilateral frontal convexity subdural [...] 09/06/2024 7:49 AM Narrative 09/06/2024 7:49 AM STEEL SAMPLER PROCEDURE: ??MRI BRAIN WWO CONTRAST, DATE/TIME OF EXAM: ??09/05/2024 9:34 AM, LOCATION ??[facility] INDICATION: R41.82: Altered mental status, unspecified altered [...] CONTRAST, DATE/TIME OF EXAM: 09/05/2024 9:34AM, LOCATION [facility] INDICATION: R41.82: Altered mental status, unspecified altered [...] ORDERABLES * EKG 12-LEAD (08/30/2024 1:59 PM STEEL SAMPLER) Pathologist [facility] Ventricular Rate 57 BPM [facility] Atrial Rate 57 BPM [facility] P-R Interval 206 ms [facility] QRS Duration ms 94 ms [facility] Q-T Interval ms 458 ms [facility] QTC Calculation (Bezet) 445 ms [facility] Calculated P [place] 8 degrees [facility] Calculated R [place] -3 degrees [facility] Calculated T [place] 44 degrees [facility] Interpretation EKG POOR DATA QUALITY, INTERPRETATION MAY BE ADVERSELY AFFECTED SINUS BRADYCARDIA INFERIOR INFARCT , AGE UNDETERMINED ABNORMAL ECG NO PREVIOUS ECGS AVAILABLE Confirmed by ERVIN ROMERO DO ([id number]) on 09/04/2024 9:29:42 PM [facility] MUSE 08/30/2024 1:59 PM STEEL SAMPLER 09/04/2024 9:29 PM STEEL SAMPLER Amanda Dacosta MD ECG ORDERABLES [facility] * XR Ankle Left 3Vw or More (08/30/2024 10:22 AM STEEL SAMPLER) Only the most recent of2 resultswithin the time period is included. Anatomical Region Laterality Modality Lower Extremity Digital Radiogra phy 08/30/2024 11:1 1 AM STEEL SAMPLER Impressions 08/30/2024 11:12 AM STEEL SAMPLER IMPRESSION: No fracture or subluxation or dislocation seen; no suspicious radiopaque foreign body identified. > Interpreting Provider: Tyree Tyler on 08/30/2024 11:12 AM Narrative 08/30/2024 11:12 AM STEEL SAMPLER PROCEDURE: ??XR ANKLE LEFT 3VW OR MORE [...] TO MICROSCOPIC NO CULTURE (08/28/2024 8:52 PM STEEL SAMPLER) Color UA Yellow Straw, Yellow 08/28/2024 9:35 PM STEEL SAMPLER [facility] Clarity UA Clear Clear 08/28/2024 9:35 PM STEEL SAMPLER [facility] Specific Commerce UA 1.035(H) 1.005 - 1.030 08/28/2024 9:35 PM STEEL SAMPLER [facility] pH UA 5.0 5.0 - 8.0 pH 08/28/2024 9:35 PM STEEL SAMPLER [facility] Protein UA Negative Negative 08/28/2024 9:35 PM STEEL SAMPLER [facility] Glucose UA Negative Negative 08/28/2024 9:35 PM STEEL SAMPLER [facility] Ketone UA 1+(A) Negative 08/28/2024 9:35 PM STEEL SAMPLER [facility] Bilirubin UA Negative Negative 08/28/2024 9:35 PM [facility] Blood UA Negative Negative 08/28/2024 9:35 PM [facility] Nitrite UA Negative Negative 08/28/2024 9:35 PM [facility] Leukocyte Esterase Negative Negative 08/28/2024 9:35 PM [facility] Urobilinogen UA 2.0(A) Negative mg/dL 08/28/2024 9:35 PM [facility] RBC UA 0-2 None Seen, 0-2, 3-5 /HPF 08/28/2024 9:35 PM [facility] WBC UA 0-5 None Seen, 0-5 /HPF 08/28/2024 9:35 PM [facility] Squamous Epithelial Cells UA None Seen None Seen, 0-2, 3-5 /HPF 08/28/2024 9:35 PM [facility] Mucus UA 1+ /LPF 08/28/2024 9:35 PM [facility] Urine URINE SPECIMEN OBTAINED BY CLEAN CATCH PROCEDURE / Unknown Collection / Unknown 08/28/2024 8:52 PM STEEL SAMPLER 08/28/2024 9:24 PM STEEL SAMPLER [facility] - 08/28/2024 9:35 PM STEEL SAMPLER Lincoln Rocha MD LAB - URINALYSIS OR DERABLES Performing Organization Address [facility]/State/[facility] Co de Phone Number [facility] [address] [place] [address], [facility] [phone] * (ABNORMAL) URINE DRUG SCREEN IMMUNOASSAY (08/28/2024 8:52 PM STEEL SAMPLER) Amphetamines Screen Urine Negative Negative : < 1000 ng/mL 08/28/2024 9:45 PM [facility] Barbiturates Screen Urine Negative Negative : < 200 ng/mL 08/28/2024 9:45 PM [facility] Benzodiazepine Screen Urine Negative Negative : < 200 ng/mL 08/28/2024 9:45 PM [facility] Opiates Urine Negative Negative : < 300 ng/mL 08/28/2024 9:45 PM [facility] Cocaine Metabolites Urine Negative Negative : < 300 ng/mL 08/28/2024 9:45 PM [facility] Phencyclidine Screen Urine Negative Negative : < 25 ng/ml 08/28/2024 9:45 PM [facility] Cannabinoids Screen Urine Positive(A) Negative : <50 ng/mL 08/28/2024 9:45 PM [facility] Comment:Positive urine canna binoids (THC) screening results should be confirmed by another generally accepted non-immunological method such as gas chromatography or mass spectrometry. Methadone Screen Urine Negative Negative : < 300 ng/mL 08/28/2024 9:45 PM [facility] Fentanyl Screen Urine Negative Negative : <1.5 ng/mL 08/28/2024 9:45 PM [facility] Urine URINE / Unknown Collection / Unknown 08/28/2024 8:52 PM [facility] 08/28/2024 9:24 PM [facility] - 08/28/2024 9:45 PM [facility] The Urine Toxicology Screening Panel does not screen for Propoxyphene, Meprobamate, Carisoprodol, Trazodone, ppan-gfb-kqcipkr medications and/or volatiles (Acetone, Isopropanol, Methanol or Ethylene Glycol). Ethanol, Salicylate, Acetaminophen, Tricyclic Antidepressants and several therapeutic drugs may be individually assayed in serum or plasma specimen. Toxicology testing by the [facility] is an aid to medical diagnosis and treatment of patients. No documented chain of custody was maintained. Results are intended to be used for clinical purposes only. ? Lincoln Rocha MD LAB - URINE BORING MILL OPERATOR RY ORDERABLES [facility] [address] [place] [address], [facility] [phone] * BLOOD TYPE VERIFICATION (08/28/2024 8:23 PM STEEL SAMPLER) ABO Rh B POS 08/28/2024 9:1 4 PM STEEL SAMPLER [facility] Blood Bank BLOOD SPECIMEN / Unknown Lab Venipuncture / Unknown 08/28/2024 8:23 PM STEEL SAMPLER 08/28/2024 8:42 PM STEEL SAMPLER Lincoln Rocha MD LAB - BLOOD BANK OR DERABLES Performing Organization Address City/[facility]/ZIP Co de Phone Number [facility] [address] [place] [address], [facility] [phone] * SARS-COV-2 (COVID-19) RAPID (08/28/2024 11:05 AM STEEL SAMPLER) COVID-19 PCR Not detected Not detected 08/28/20 11:49 AM STEEL SAMPLER [facility] Microbiology SPECIMEN FROM NASOPHARYNGEAL STRUCTURE / Unknown Collection / Unknown 08/28/2024 11:05 AM STEEL SAMPLER 08/28/2024 11:12 AM STEEL SAMPLER Narrative [facility] - 08/28/2024 11:49 AM STEEL SAMPLER The [employer]ep[employer] Xpert Xpress SARS-COV-2 has been [...] Galvez MD LAB - MICROBIOLOGY O RDERABLES [facility] [address] [place] [address], [facility] [phone] * XR Elbow Left 3Vw or More (08/27/2024 11:41 PM STEEL SAMPLER) Anatomical Region Laterality Modality Upper Extremity Digital Radiogra phy 08/28/2024 1:17 AM STEEL SAMPLER Impressions 08/28/2024 9:13 AM STEEL SAMPLER IMPRESSION: No acute fracture or dislocation identified. Report dictated by Dante Mcclain MD, (cmo & president). ISho MD have personally reviewed and interpreted this examination/study. > Interpreting Provider: Sho Minaya MD on 08/28/2024 9:13 AM Narrative 08/28/2024 9:13 AM STEEL SAMPLER PROCEDURE: ??XR ELBOW LEFT 3VW OR MORE, DATE/TIME OF EXAM: ??08/27/2024 11:41 PM, LOCATION ??[facility] INDICATION: T14.90XA: Trauma ADDITIONAL CLINICAL INFORMATION: Ordering [...] MORE, DATE/TIME OF EXAM: 1:41 PM, LOCATION [facility] INDICATION: T14.90XA: Trauma ADDITIONAL CLINICAL INFORMATION: Ordering Provider Reason For Exam: Technologist Note: Additional: COMPARISON: None. FINDINGS: The osseous structures are intact and well aligned without acutefracture or dislocation. The joint spaces are preserved. No joint effusion isseen. Bone density and texture are normal. No soft tissue swelling is present. IMPRESSION: No acute fracture or dislocation identified. Report dictated by Dante Mcclain MD, (cmo & president). Sho Macedo MD have personally reviewed and interpreted this examination/study. > Interpreting Provider: Sho Minaya MD on 08/28/2024 9:13 AM Lincoln Rocha MD DIAGNOSTIC IMAGING ORDERABLES * CT CHEST ABDOMEN PELVIS W CONT - Abdomen-pelvis trauma, blunt or penetrating (08/27/2024 11:34 PM STEEL SAMPLER) Anatomical Region Laterality Modality Chest, Abdomen, Pelvis Computed Tomography 08/27/2024 11:2 6 PM STEEL SAMPLER Impressions 08/28/2024 8:02 AM STEEL SAMPLER Impression: Mild limitations to the exam secondary [...] pelvis. > Dictated by Dorian Cuevas MD (cmo & president). Tyree Macedo have personally reviewed and interpreted this examination/study. > Interpreting Provider: Tyree Tyler on 08/28/2024 8:02 AM Narrative 08/28/2024 8:02 AM STEEL SAMPLER PROCEDURE: ??CT CHEST ABDOMEN PELVIS W CONT, DATE/TIME OF EXAM: ??08/27/2024 11:36 PM, LOCATION ??[facility] INDICATION: Trauma ADDITIONAL CLINICAL INFORMATION: Ordering Provider [...] CONT, DATE/TIME OF EXAM:08/27/2024 11:36 PM, LOCATION [facility] INDICATION: Trauma ADDITIONAL CLINICAL INFORMATION: Ordering Provider [...] pelvis. > Dictated by Dorian Cuevas MD (cmo & president). I, Tyree Tyler have personally reviewed and interpreted this examination/study. > Interpreting Provider: Tyree Tyler on 08/28/2024 8:02 AM Lincoln Rocha MD CT ORDERABLES * CT LUMBAR SPINE WO CONTRAST - T/L-spine trauma, Spine fracture (08/27/2024 11:34 PM STEEL SAMPLER) Anatomical Region Laterality Modality Spine Computed Tomogra phy 08/27/2024 11:4 7 PM STEEL SAMPLER Impressions 08/28/2024 6:41 AM STEEL SAMPLER IMPRESSION: Significant motion artifact limits evaluation for [...] report is dictated by Dante Mcclain MD (cmo & president) IKalyani MD have personally reviewed and interpreted this examination/study. > Interpreting Provider: Kalyani Cortez MD on 08/28/2024 6:41 AM Narrative 08/28/2024 6:41 AM STEEL SAMPLER PROCEDURE: ??CT HEAD WO CONTRAST, CT LUMBAR SPINE WO CONTRAST, CT THORACIC SPINE WO CONTRAST, CT CERVICAL SPINE WO CONTRAST, CT FACIAL BONES WO CONTRAST, DATE/TIME OF EXAM: ??08/27/2024 11:36 PM, LOCATION ??[facility] INDICATION: Trauma ADDITIONAL CLINICAL INFORMATION: Ordering Provider [...] DATE/TIME OF EXAM: 08/27/2024 11:36 PM, LOCATION [facility] INDICATION: Trauma ADDITIONAL CLINICAL INFORMATION: Ordering Provider [...] report is dictated by Dante Mcclain MD (cmo & president) I, Kalyani Cortez MD have personally reviewed and interpretedthis examination/study. > Interpreting Provider: Kalyani Cortez MD on 08/28/2024 6:41 AM Lincoln Rocha MD CT ORDERABLES * CT THORACIC SPINE WO CONTRAST - T/L-spine trauma, spine fracture (08/27/2024 11:34 PM STEEL SAMPLER) Anatomical Region Laterality Modality Spine Computed Tomogra phy 08/27/2024 11:4 7 PM STEEL SAMPLER Impressions 08/28/2024 6:41 AM STEEL SAMPLER IMPRESSION: Significant motion artifact limits evaluation for [...] report is dictated by Dante Mcclain MD (cmo & president) IKalyani MD have personally reviewed and interpreted this examination/study. > Interpreting Provider: Kalyani Cortez MD on 08/28/2024 6:41 AM Narrative 08/28/2024 6:41 AM STEEL SAMPLER PROCEDURE: ??CT HEAD WO CONTRAST, CT LUMBAR SPINE WO CONTRAST, CT THORACIC SPINE WO CONTRAST, CT CERVICAL SPINE WO CONTRAST, CT FACIAL BONES WO CONTRAST, DATE/TIME OF EXAM: ??08/27/2024 11:36 PM, LOCATION ??[facility] INDICATION: Trauma ADDITIONAL CLINICAL INFORMATION: Ordering Provider [...] DATE/TIME OF EXAM: 08/27/2024 11:36 PM, LOCATION [facility] INDICATION: Trauma ADDITIONAL CLINICAL INFORMATION: Ordering Provider [...] report is dictated by Dante Mcclain MD (cmo & president) Kalyani Macedo MD have personally reviewed and interpretedthis examination/study. > Interpreting Provider: Kalyani Cortez MD on 08/28/2024 6:41 AM Lincoln Rocha MD CT ORDERABLES * CT CERVICAL SPINE WO CONTRAST - C-Spine Trauma, Spine fracture (08/27/2024 11:34 PM STEEL SAMPLER) Anatomical Region Laterality Modality Spine Computed Tomogra phy 08/27/2024 11:4 7 PM STEEL SAMPLER Impressions 08/28/2024 6:41 AM STEEL SAMPLER IMPRESSION: Significant motion artifact limits evaluation for [...] report is dictated by Dante Mcclain MD (cmo & president) Kalyani Macedo MD have personally reviewed and interpreted this examination/study. > Interpreting Provider: Kalyani Cortez MD on 08/28/2024 6:41 AM Narrative 08/28/2024 6:41 AM STEEL SAMPLER PROCEDURE: ??CT HEAD WO CONTRAST, CT LUMBAR SPINE WO CONTRAST, CT THORACIC SPINE WO CONTRAST, CT CERVICAL SPINE WO CONTRAST, CT FACIAL BONES WO CONTRAST, DATE/TIME OF EXAM: ??08/27/2024 11:36 PM, LOCATION ??[facility] INDICATION: Trauma ADDITIONAL CLINICAL INFORMATION: Ordering Provider [...] DATE/TIME OF EXAM: 08/27/2024 11:36 PM, LOCATION [facility] INDICATION: Trauma ADDITIONAL CLINICAL INFORMATION: Ordering Provider [...] report is dictated by Dante Mcclain MD (cmo & president) Kalyani Macedo MD have personally reviewed and interpretedthis examination/study. > Interpreting Provider: Kalyani Cortez MD on 08/28/2024 6:41 AM Lincoln Rocha MD CT ORDERABLES * CT FACIAL BONES WO CONTRAST - Facial trauma, fx suspected, blunt (08/27/2024 11:34 PM STEEL SAMPLER) Anatomical Region Laterality Modality Head Computed Tomogra phy 08/27/2024 11:4 7 PM STEEL SAMPLER Impressions 08/28/2024 6:41 AM STEEL SAMPLER IMPRESSION: Significant motion artifact limits evaluation for [...] report is dictated by Dante Mcclain MD (cmo & president) Kalyani Macedo MD have personally reviewed and interpreted this examination/study. > Interpreting Provider: Kalyani Cortez MD on 08/28/2024 6:41 AM Narrative 08/28/2024 6:41 AM STEEL SAMPLER PROCEDURE: ??CT HEAD WO CONTRAST, CT LUMBAR SPINE WO CONTRAST, CT THORACIC SPINE WO CONTRAST, CT CERVICAL SPINE WO CONTRAST, CT FACIAL BONES WO CONTRAST, DATE/TIME OF EXAM: ??08/27/2024 11:36 PM, LOCATION ??[facility] INDICATION: Trauma ADDITIONAL CLINICAL INFORMATION: Ordering Provider [...] DATE/TIME OF EXAM: 08/27/2024 11:36 PM, LOCATION [facility] INDICATION: Trauma ADDITIONAL CLINICAL INFORMATION: Ordering Provider [...] report is dictated by Dante Mcclain MD (cmo & president) Kalyani Macedo MD have personally reviewed and interpretedthis examination/study. > Interpreting Provider: Kalyani Cortez MD on 08/28/2024 6:41 AM Lincoln Rocha MD CT ORDERABLES * XR PELVIS 1 OR 2VW (08/27/2024 11:33 PM STEEL SAMPLER) Anatomical Region Laterality Modality Pelvis Digital Radiogra phy 08/28/2024 1:07 AM STEEL SAMPLER Impressions 08/28/2024 9:15 AM STEEL SAMPLER IMPRESSION: No acute fracture identified. Report dictated by Dante Mcclain MD, (cmo & president). Sho Macedo MD have personally reviewed and interpreted this examination/study. > Interpreting Provider: Sho Minaya MD on 08/28/2024 9:15 AM Narrative 08/28/2024 9:15 AM STEEL SAMPLER PROCEDURE: ??XR PELVIS 1 OR 2VW, DATE/TIME OF EXAM: ??08/27/2024 11:34 PM, LOCATION ??[facility] INDICATION: Trauma Fracture suspected ADDITIONAL CLINICAL INFORMATION: [...] DATE/TIME OF EXAM: 08/27/2024 11:34 PM, LOCATION [facility] INDICATION: Trauma Fracture suspected ADDITIONAL CLINICAL INFORMATION: Ordering Provider Reason For Exam: Technologist Note: Additional: COMPARISON: None. FINDINGS: Left hip arthroplasty. No acute fracture. Degenerative changes in theright hip. The pubic symphysis is intact. Bone density and texture are normal. The sacroiliac joints are normal. 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 IMPRESSION: No acute fracture identified. Report dictated by Dante Mcclain MD, (cmo & president). I, Sho Minaya MD have personally reviewed and interpreted this examination/study. > Interpreting Provider: Sho Minaya MD on 08/28/2024 9:15 AM Lincoln Rocha MD DIAGNOSTIC IMAGING ORDERABLES * (ABNORMAL) CK BLOOD (08/27/2024 11:05 PM STEEL SAMPLER) Pathologist [facility] CK Total 417(H) 30 - 200 U/L 08/27/2024 11:39 PM [facility] Blood BLOOD SPECIMEN / Unknown Venipuncture / Unknown 08/27/2024 11:05 PM STEEL SAMPLER 08/27/2024 11:14 PM STEEL SAMPLER Lincoln Rocha MD LAB - CHEMISTRY ORD ERABLES [address] [address], [facility] [phone] * ALCOHOL ETHYL BLOOD (08/27/2024 11:05 PM STEEL SAMPLER) Pathologist [facility] Ethanol (mg/dL) <10 <10 mg/dL 11:39 PM [facility] Ethanol Calculated (g/dL) <0.010 <=0.010 g/dL 08/27/2024 11:39 PM [facility] Blood BLOOD SPECIMEN / Unknown Venipuncture / Unknown 08/27/2024 11:05 PM STEEL SAMPLER 08/27/2024 11:14 PM STEEL SAMPLER Narrative [facility] - 08/27/2024 11:39 PM STEEL SAMPLER Ethanol Interp <10: None Detected. Depression of DAIRY GRAZER: >100 mg/dl Potentially Critical: >250 mg/dl Potentially [...] Rocha MD LAB - CHEMISTRY ORD ERABLES [facility] [address] [place] [address], [facility] [phone] from Last 3 Months Advance Directives * [...] 3:52 AM 08/28/2024 3:48 PM Care Teams Gym Attendant Relationship Specialty Start Date End Date Bao Pierre MD PCP - General Internal Medicine 07/09/17
--- OUTSIDE RECORDS SUMMARY | 2024-10-01 08:36 | XMS_ITS | Encounter Summary ---
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 Blurred Vision Frandy Alvares is a 84 year old male here for annual exam. Patient states he is ready for a new glasses prescription, as current Rx is slightly blurry. Pt has a h/o retinal surgery and cataract surgery. The following was also reviewed and updated: Current Outpatient Medications Medication Sig Dispense Refill ??? alfuzosin CR 24hr (UROXATRAL) 10 MG tablet Take 10 mg by mouth once daily ??? FIBER PO Take 1 capsule by mouth 2 times daily ??? finasteride (PROSCAR) 5 MG tablet Take 5 mg by mouth once daily ??? GLUCOSAMINE CHONDROITIN COMPLX PO Take 1 tablet by mouth once daily ??? ibuprofen (MOTRIN) 600 MG tablet Take 600 mg by mouth as needed ??? ingenol (PICATO) 0.015 % gel Apply to affected area once daily For actinic keratosis on the Forehead and your hair line Use for 3 days. 3 Each 0 ??? lovastatin (MEVACOR) 20 MG tablet Take 20 mg by mouth once daily 12 ??? Multiple Vitamins-Minerals (HAIR SKIN AND NAILS FORMULA) TABS Take 2 tablets by mouth once daily ??? Vitamin D, Cholecalciferol, 1000 UNITS CAPS Take 1 capsule by mouth once daily No current facility-administered medications for this visit. Allergies Allergen Reactions ??? Epinephrine Dizziness Passed out for 4 hours in childhood Review of Systems Past Medical History: Diagnosis Date ??? Actinic keratosis ??? Squamous cell carcinoma No past surgical history on file. Family History Problem Relation Name Age of Onset ??? Asthma Neg Hx ??? Eczema Neg Hx ??? Cancer - Other Neg Hx ??? Cancer - Breast Neg Hx ??? Cancer - Skin, Non Melanoma Neg Hx ??? Cancer - Skin, Melanoma Neg Hx ??? CVA Neg Hx ??? Hemophilia Neg Hx ??? Psoriasis Neg Hx Social History Tobacco Use ??? Smoking status: Former Smoker Types: Pipe Last attempt to quit: 2015 Years since quittin.5 ??? Smokeless tobacco: Former User Substance Use Topics ??? Alcohol use: Yes Comment: rarely ??? Drug use: No Base Eye Exam Visual Acuity (Snellen - Linear) Right Left Dist cc 20/50 -1 20/20 -2 Dist ph cc NI Correction: Glasses Tonometry (Tonopen, 9:10 AM) Right Left Pressure 14 11 Pupils Pupils Shape React APD Right PERRL Irregular Minimal None Left PERRL Round Minimal None Visual Crawford Left Right Full Full Extraocular Movement Right Left Full, Ortho Full, Ortho Neuro/Psych Oriented x3: Yes Mood/Affect: Normal Dilation Both eyes: 1.0% Mydriacyl, 2.5% Edward Synephrine @ 9:13 AM Slit Lamp and Fundus Exam External Exam Right Left External Normal Normal Slit Lamp Exam Right Left Lids/Lashes Dermatochalasis - upper lid, slightly laxity, reactive ptosis Dermatochalasis - upper lid, mild MGD, slightly laxity Conjunctiva/Sclera White and quiet White and quiet Cornea Clear Clear Anterior Chamber Deep and quiet Deep and quiet Iris Slightly irregular, atrophy with TIDs Round and reactive Lens PCIOL s/p YAG PCIOL in good position, hydrated cortical material inferiorly Vitreous Normal Normal Fundus Exam Right Left Disc Peripapillary scarring PPA with white patch inferior to nerve C/D Ratio 0.2 0.2 Macula Large area of chorioretinal scarring (SMS) around nerve and toward macula Normal Vessels Normal Normal Periphery hyperpigmented spot inferiorly small hypopigmented punched out spot Refraction Wearing Rx Sphere Cylinder Add Right -1.00 Sphere +2.50 Left Wasta Sphere +2.50 Age: 5 years Type: PAL Manifest Refraction Sphere Cylinder [place] Dist VA Add Right Wasta -1.75 081 20/25 +2.50 Left +0.75 -0.75 088 20/20-1 +2.50 OD = ret OS = manifest Unable to use phoropter or do trial frame refraction OD due to eccentric fixation Final Rx Sphere Cylinder [place] Add Right Wasta -1.75 081 +2.50 Left +0.75 -0.75 088 +2.50 Type: PAL Expiration Date: 04/08/2021 Study findings: none Assessment/Plan ATTESTATION: I have verified the documentation of the medical/ optometry student including all history, exam andmedical decision-making details. I have personally performed an examination and have personally reviewed the data to support my medical decision making as outlined in the medical student's note, and I arrive independently at the same conclusion. Frandy Alvares is a 84 year old male here for his annual exam. The patient appears well nourished, well developed and in no distress, he denies flashes, floaters, double vision, burning, itching, redness, watering, or discharge. ? 1. Refractive error - s/p CE/IOL OD??(12/31/15) and CE/IOL OS (03/17/16) - Doing well - YAG PC OD 02/05/16 - Updated spec Rx today, okay to continue with habitual Rx if desires ?? 2. H/o POHS OD - VA stable ~20/80 OD - Able to see 20/25 OD with today's ret while eccentrically fixating ?? 3. 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 RTC 1 year for comprehensive exam, sooner PRN. Ronny Sharp, OD * Bita Osorio A - 04/07/2020 9:58 AM CDT HPI Chief Complaint Patient presents with ??? Blurred Vision Frandy Alvares is a 84 year old male here for annual exam. Patient states he is ready for a new glasses prescription, as current Rx is slightly blurry. Pt has a h/o retinal surgery and cataract surgery. The following was also reviewed and updated: Current Outpatient Medications Medication Sig Dispense Refill ??? alfuzosin CR 24hr (UROXATRAL) 10 MG tablet Take 10 mg by mouth once daily ??? FIBER PO Take 1 capsule by mouth 2 times daily ??? finasteride (PROSCAR) 5 MG tablet Take 5 mg by mouth once daily ??? GLUCOSAMINE CHONDROITIN COMPLX PO Take 1 tablet by mouth once daily ??? ibuprofen (MOTRIN) 600 MG tablet Take 600 mg by mouth as needed ??? ingenol (PICATO) 0.015 % gel Apply to affected area once daily For actinic keratosis on the Forehead and your hair line Use for 3 days. 3 Each 0 ??? lovastatin (MEVACOR) 20 MG tablet Take 20 mg by mouth once daily 12 ??? Multiple Vitamins-Minerals (HAIR SKIN AND NAILS FORMULA) TABS Take 2 tablets by mouth once daily ??? Vitamin D, Cholecalciferol, 1000 UNITS CAPS Take 1 capsule by mouth once daily No current facility-administered medications for this visit. Allergies Allergen Reactions ??? Epinephrine Dizziness Passed out for 4 hours in childhood Review of Systems Past Medical History: Diagnosis Date ??? Actinic keratosis ??? Squamous cell carcinoma No past surgical history on file. Family History Problem Relation Name Age of Onset ??? Asthma Neg Hx ??? Eczema Neg Hx ??? Cancer - Other Neg Hx ??? Cancer - Breast Neg Hx ??? Cancer - Skin, Non Melanoma Neg Hx ??? Cancer - Skin, Melanoma Neg Hx ??? CVA Neg Hx ??? Hemophilia Neg Hx ??? Psoriasis Neg Hx Social History Tobacco Use ??? Smoking status: Former Smoker Types: Pipe Last attempt to quit: 2015 Years since quittin.5 ??? Smokeless tobacco: Former User Substance Use Topics ??? Alcohol use: Yes Comment: rarely ??? Drug use: No Base Eye Exam Visual Acuity (Snellen - Linear) Right Left Dist cc 20/50 -1 20/20 -2 Dist ph cc NI Correction: Glasses Tonometry (Tonopen, 9:10 AM) Right Left Pressure 14 11 Pupils Pupils Shape React APD Right PERRL Irregular Minimal None Left PERRL Round Minimal None Visual Crawford Left Right Full Full Extraocular Movement Right Left Full, Ortho Full, Ortho Neuro/Psych Oriented x3: Yes Mood/Affect: Normal Dilation Both eyes: 1.0% Mydriacyl, 2.5% Edward Synephrine @ 9:13 AM Slit Lamp and Fundus Exam External Exam Right Left External Normal Normal Slit Lamp Exam Right Left Lids/Lashes Dermatochalasis - upper lid, slightly laxity, reactive ptosis Dermatochalasis - upper lid, mild MGD, slightly laxity Conjunctiva/Sclera White and quiet White and quiet Cornea Clear Clear Anterior Chamber Deep and quiet Deep and quiet Iris Slightly irregular, atrophy with TIDs Round and reactive Lens PCIOL s/p YAG PCIOL in good position, hydrated cortical material inferiorly Vitreous Normal Normal Fundus Exam Right Left Disc Peripapillary scarring PPA with white patch inferior to nerve C/D Ratio 0.2 0.2 Macula Large area of chorioretinal scarring around nerve and toward macula Normal Vessels Normal Normal Periphery hyperpigmented spot inferiorly small hypopigmented punched out spot Refraction Wearing Rx Sphere Cylinder Add Right -1.00 Sphere +2.50 Left Wasta Sphere +2.50 Age: 5 years Type: PAL Manifest Refraction Sphere Cylinder [place] Dist VA Add Right Wasta -1.75 081 20/25 +2.50 Left +0.75 -0.75 088 20/20-1 +2.50 OD = ret OS = manifest Unable to use phoropter or do trial frame refraction OD due to eccentric fixation Final Rx Sphere Cylinder [place] Add Right Wasta -1.75 081 +2.50 Left +0.75 -0.75 088 +2.50 Type: PAL Expiration Date: 04/08/2021 Study findings: None Assessment/Plan Frandy Alvares is a 84 year old male here for his annual exam. The patient appears well nourished, well developed and in no distress, he denies flashes, floaters, double vision, burning, itching, redness, watering, or discharge. ?? 1. Refractive error - s/p CE/IOL OD (12/31/15) and CE/IOL OS (03/17/16) - Doing well - YAG PC OD 02/05/16 - Updated spec Rx today, okay to continue with habitual Rx if desires ?? 2. H/o POHS OD - VA stable ~20/80 OD - Able to see 20/25 OD with today's ret while eccentrically fixating ?? 3. 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 RTC 1 year for comprehensive exam, sooner PRN. ?? Bita Osorio documented in this encounter Plan of Treatment Upcoming Encounters Date Type Department Care Team (Late st Contact Info) Description 10/09/2024 11:30 AM PLASTIC JOINT MAKER Office Visit [facility] - Dermatology [address] [place] [phone] Katharine Bar MD [address] [place] [address] [address] [place] [address] 11/19/2024 8:30 AM PLASTIC JOINT MAKER Office Visit [facility] - Dermatology [address] [place] [phone] Patricia Jarvis MD [address] [place] [address] 11/22/2024 8:00 AM PLASTIC JOINT MAKER Office Visit [facility] - Neurology [address] [place] [phone] Chay Nieves MD [address] [place] [address] documented as of this encounter Visit Diagnoses Diagnosis 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
--- OUTSIDE RECORDS SUMMARY | 2024-10-01 08:36 | XMS_ITS | Encounter Summary ---
Author Organization [facility] Address [address] [place] [address] Care Team Providers Care Cable Worker Helper Name Role Phone Unavailable Primary Care Provider Unavailabl e Reason for Visit * Reason Comments Imm Inj flu Encounter Details Date Type Department Care Team (Late st Contact Info) Description 08/11/2016 10:45 AM CONCRETE FINISHER Office Visit [facility] [address] [place] [address] Need for immunization against influenza (Primary Dx) Social History Tobacco Use Types Packs/Day Years Used Date Smoking Tobacco: Never Assessed Sex and Gender Information Value Date Recorded Sex Assigned at Not on file Gender Identity Not on file Sexual Orientation Not on file documented as of this encounter Progress Notes * Eleni Durbin APRN-CNP - 08/11/2016 10:38 AM CST Patient received HD flu vaccine right deltoid RETE FINISHER documented in this encounter Plan of Treatment Upcoming Encounters Date Type Department Care Team (Late st Contact Info) Description 10/09/2024 11:30 AM CONCRETE FINISHER Office Visit [facility] - Dermatology [address] [place] [address], [facility] [place] [phone] Katharine Bar MD [address] [place] [address] [place] [phone] 11/19/2024 8:30 AM CONCRETE FINISHER Office Visit [facility] - Dermatology [address] [facility] [place] [address] Patricia Jarvis MD [address] [place] [address] 11/22/2024 8:00 AM CONCRETE FINISHER Office Visit [facility] - Neurology [address] [facility] [place] [address] Chay Nieves MD [address] [place] [address] documented as of this encounter Visit Diagnoses Diagnosis Need for immunization against influenza- Primary Need for prophylactic vaccination and inoculation against influenza documented in this encounter
--- OUTSIDE RECORDS SUMMARY | 2024-10-01 08:36 | XMS_ITS | Encounter Summary ---
Author Organization [facility] Address [address] [place] [address] Care Team Providers Care Foaming Machine Operator Name Role Phone Bao Pierre MD Primary Care Provider [phone] Encounter Details Date Type Department Care Team (Late Contact Info) Description 12/23/2020 Orders Only [facility] - COVID Vax [address] [place] [address] Bao Sexton MD [address] [facility] [address] [phone] Need for vaccination Social History Tobacco Use Types Packs/Day Years Used Date Smoking Tobacco: Former Pipe Q uit: 2015 Smokeless Tobacco: Former Alcohol Use Standard Drinks/Week Comments Yes 0 (1 standard drink = 0.6 oz pur e alcohol) rarely Sex and Gender Information Value Date Recorded Sex Assigned at Not on file Gender Identity Not on file Sexual Orientation Not on file documented as of this encounter Plan of Treatment Upcoming Encounters Date Type Department Care Team (Late Contact Info) Description 10/09/2024 11:30 AM BATTERY TESTER Office Visit [facility] - Dermatology [address] [place] [phone] Katharine Bar MD [address] [place] [address] [place] [phone] 11/19/2024 8:30 AM BATTERY TESTER Office Visit [facility] - Dermatology [address] [place] [phone] Patricia Jarvis MD [address] [place] [address] 11/22/2024 8:00 AM BATTERY TESTER Office Visit [facility] - Neurology [address] [place] [address] Chay Nieves MD [address] [place] [address] documented as of this encounter Visit Diagnoses Diagnosis Need for vaccination Need for prophylactic vaccination and inoculation against unspecified single disease documented in this encounter Care Teams Foaming Machine Operator Relationship Specialty Start Date End Date Bao Pierre MD PCP - General Internal Medicine 07/09/17 documented as of this encounter
--- OUTSIDE RECORDS SUMMARY | 2024-10-01 08:36 | XMS_ITS | Encounter Summary ---
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 Retina Evaluation Frandy Alvares is a 87 year old male presenting for comprehensive eye exam. Pt has no visual concerns at this time, is happy with current spectacle Rx. H/o POHS OD, he reports vision has been stable. Pt was unaware he had an eye appointment today, says someone else schedules his appointments for him. The following was also reviewed and updated: Current Outpatient Medications Medication Sig Dispense Refill ??? alfuzosin CR 24hr (UROXATRAL) 10 MG tablet Take 10 mg by mouth once daily ??? Apoaequorin (PREVAGEN PO) Take 1 tablet by mouth once daily ??? aspirin EC (ECOTRIN) 81 MG tablet Take 81 mg by mouth once daily ??? FIBER [...] your hair line Use for 3 days. (Patient not taking: Reported on 05/05/2020) 3 Each 0 ??? lovastatin (MEVACOR) 20 MG tablet Take 20 mg by mouth once daily 12 ??? metoprolol succinate XL 24hr (TOPROL XL) 25 MG tablet Take 12.5 mg by mouth once daily ??? Multiple Vitamins-Minerals (HAIR SKIN AND NAILS [...] History Tobacco Use ??? Smoking status: Former Types: Pipe Quit date: 2015 Years since quittin.2 ??? Smokeless tobacco: Former Substance Use Topics ??? Alcohol use: Yes Comment: rarely ??? Drug use: No Base Eye Exam Visual Acuity (Snellen - Linear) Right Left Dist cc 20/50 -2 20/20 -1 Dist ph cc NI Tonometry (Applanation, 10:05 AM) Right Left Pressure 20 19 Pupils Pupils APD Right PERRL None Left PERRL None Visual Crawford Left Right Full Full Extraocular Movement Right Left Full Full Neuro/Psych Oriented x3: Yes Mood/Affect: Normal Dilation Both eyes: 1.0% Mydriacyl, 2.5% Edward Synephrine @ 9:56 AM Slit Lamp and Fundus Exam External [...] in good position, hydrated cortical material inferiorly Anterior Vitreous Normal Normal Fundus Exam Right Left Disc Peripapillary scarring PPA with white patch inferior to nerve C/D Ratio 0.2 0.2 Macula Large area of chorioretinal scarring (SMS) around nerve and toward macula Normal Vessels Normal Normal Periphery hyperpigmented spot inferiorly small hypopigmented punched out spot Refraction Wearing Rx Sphere Cylinder Wood Right -1.25 +1.50 015 Left [place] +0.75 165 Manifest Refraction Sphere Cylinder Wood Dist VA Add Right -1.75 +1.75 170 20/50 +2.50 Left [place] +0.75 175 20/20 +2.50 Final Rx Sphere Cylinder Wood Add Right -1.75 +1.75 170 +2.50 Left [place] +0.75 175 +2.50 Type: PAL Expiration Date: 11/23/2023 Study findings: None Assessment/Plan ATTESTATION: I have verified the documentation of the medical/ optometry student/ resident including all history, exam and medical decision-making details. I have personally performed an examination and have personally reviewed the data to support my medical decision making as outlined in the medical student's note, and I arrive independently at the same conclusion. Assessment/Plan: ?? 1. Refractive error -??s/p CE/IOL OD??(12/31/15)??and CE/IOL OS (03/17/16) -??Doing well, no visual complaints -??YAG PC OD 02/05/16 - Updated spec Rx today, okay to continue with habitual Rx if desires ?? 2. H/o??POHS OD - VA stable ~20/50 OD ?? 3. H/o??CNVM OD?? -??s/p Avastin OD 12/09/15 -??s/p ppv MP (SMS) and air OD??12/31/15 Ronny Sharp, OD * Monica Ram - 11/23/2022 3:52 PM CST Assessment/Plan: 1. Refractive error - s/p CE/IOL OD??(12/31/15) and CE/IOL OS (03/17/16) - Doing well, no visual complaints - YAG PC OD 02/05/16 - Updated spec Rx today, okay to continue with habitual Rx if desires ?? 2. H/o POHS OD - VA stable ~20/50 OD ?? 3. 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 - s/p ppv MP (SMS) and air OD 12/31/15 documented in this encounter Plan of Treatment Upcoming Encounters Date Type Department Care Team (Late st Contact Info) Description 10/09/2024 11:30 AM LITHOGRAPHIC PHOTOGRAPHER APPRENTICE Office Visit [facility] - Dermatology [address] [place] [phone] Katharine Bar MD [facility] [facility] [address] [place] [phone] 11/19/2024 8:30 AM LITHOGRAPHIC PHOTOGRAPHER APPRENTICE Office Visit [facility] Dermatology [address] [place] [address], [place] [phone] Patricia Jarvis MD [address] [place] [address] 11/22/2024 8:00 AM LITHOGRAPHIC PHOTOGRAPHER APPRENTICE Office Visit [facility] - Neurology [address] [place] [address], [place] [phone] Chay Nieves MD [address] [place] [address] documented as of this encounter Visit Diagnoses Diagnosis 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
--- OUTSIDE RECORDS SUMMARY | 2024-10-01 08:36 | XMS_ITS | Encounter Summary ---
Author Organization [facility] Address [address] [facility] [place] [address] Care Team Providers Care Magazine Editor Name Role Phone Bao Pierre MD Primary Care Provider [phone] Encounter Details Date Type Department Care Team (Latest Contact Info) Description 02/24/2023 Travel Social History Tobacco Use Types Packs/Day Years Used Date Smoking Tobacco: Former Pipe Q uit: 2014 Smokeless Tobacco: Former Alcohol Use Standard Drinks/Week Comments Yes 0 (1 standard drink = 0.6 oz pur e alcohol) rarely Sex and Gender Information Value Date Recorded Sex Assigned at Not on file Gender Identity Not on file Sexual Orientation Not on file COVID-19 Exposure Response Date Recorded In the last 10 days, have yo u been in contact with someone who was confirmed or suspected to have Coronavirus/COVID-19? No / Unsure 02/24/2023 10:27 AM CDT documented as of this encounter Plan of Treatment Upcoming Encounters Date Type Department Care Team (Late st Contact Info) Description 10/09/2024 11:30 AM PORTABLE GRINDING MACHINE OPERATOR Office Visit [facility] - Dermatology [address] [place] [phone] Katharine Bar MD [address] [place] [address] [place] [phone] 11/19/2024 8:30 AM PORTABLE GRINDING MACHINE OPERATOR Office Visit [facility] - Dermatology [address] [place] [phone] Patricia Jarvis MD [facility] [place] [address] 11/22/2024 8:00 AM PORTABLE GRINDING MACHINE OPERATOR Office Visit [facility] - Neurology [address] [facility] [place] [phone] Chay Nieves MD [address] [place] [address] documented as of this encounter Visit Diagnoses Not on filedocumented in this encounter Care Teams Magazine Editor Relationship Specialty Start Date End Date Bao Pierre MD PCP - General Internal Medicine 07/09/17 documented as of this encounter
--- OUTSIDE RECORDS SUMMARY | 2024-10-01 08:36 | XMS_ITS | Encounter Summary ---
Author Organization [facility] Address [address] [place] [address] Care Team Providers Care Supervisor Hot Dip Plating Name Role Phone Bao Pierre MD Primary Care Provider [phone] Encounter Details Date Type Department Care Team (Latest Contact Info) Description 08/28/2024 Travel Social History Tobacco Use Types Packs/Day Years Used Date Smoking Tobacco: Former Pipe Q uit: 2014 Smokeless Tobacco: Former Alcohol Use Standard Drinks/Week Comments Yes 0 (1 standard drink = 0.6 oz pur e alcohol) rarely AUDIT-C Answer Date Recorded Q1: How often do you have a drink containing alcohol? Never 08/28/2024 Q2: How many drinks containi ng alcohol do you have on a typical day when you are drinking? Patient does not drink Q3: How often do you have si x or more drinks on one occasion? Never 08/28/2024 Overall Financial Resource Strain (CARDIA) Answe r Date Recorded How hard is it for you to pa y for the very basics like food, housing, medical care, and heating? Not very hard 08/28/2024 [facility] [facility] Occupat ional [facility] - Occupational Stress Questionnaire Answer Date Recorded Do you feel stress - tense, restless, nervous, or anxious, or unable to sleep at night because your mind is troubled all the time - these days? Patient unable to answer 08/28/2024 Hunger Vital Sign Answer Date Recorded Within the past 12 months, y ou worried that your food would run out before you got the money to buy more. Never true 08/28/20 24 Within the past 12 months, t he food you bought just didn't last and you didn't have money to get more. Never true 08/28/2024 PRAPARE - Transportation Answer Date Re corded In the past 12 months, has l ack of transportation kept you from medical appointments or from getting medications? No 08/03 In the past 12 months, has l ack of transportation kept you from meetings, work, or from getting things needed for daily living? No 08/28/2024 Housing Stability Vital Sign Answer Mack e Recorded In the last 12 months, was t here a time when you were not able to pay the mortgage or rent on time? No 08/28/2024 In the past 12 months, how m any times have you moved where you were living? 1 08/28/2024 At any time in the past 12 m [facility], were you homeless or living in a intermediate (including now)? No 08/28/2024 Sex and Gender Information Value Date Recorded Sex Assigned at Not on file Gender Identity Not on file Sexual Orientation Not on file documented as of this encounter Functional Status Functional Status Response Date of Assess ment Is person deaf or have serious hearing difficult y? Yes 08/28/2024 Is person blind or have serious difficulty seein g? Yes 08/28/2024 Does person have serious dif ficulty walking/climbing stairs? Yes 08/28/2024 Does person have difficulty dressing/bathing? Ye s 08/28/2024 Does person have difficulty doing errands alone? Yes 08/28/2024 Cognitive Status Response Date of Assessm ent Does person have difficulty concentrating/remembering/making decisions? Yes 08/28/2024 documented as of this encounter Plan of Treatment Upcoming Encounters Date Type Department Care Team (Late st Contact Info) Description 10/09/2024 11:30 AM PLANNED GIVING OFFICER Office Visit [facility] - Dermatology [address] [place] [address], [place] [phone] Katharine Bar MD [address] [place] [address] [place] [phone] 11/19/2024 8:30 AM PLANNED GIVING OFFICER Office Visit [facility] Dermatology [address] [place] [address], [place] [phone] Patricia Jarvis MD [address] [place] [address] 11/22/2024 8:00 AM PLANNED GIVING OFFICER Office Visit [facility] Neurology [address] [facility], [place] [address] Chay Nieves MD [address] [place] [address] documented as of this encounter Visit Diagnoses Not on filedocumented in this encounter Additional Health Concerns Infection Onset Date Last Indicated Resolved Time COVID-19 Under Investigation 08/28/2024 08/28/2024 08/28/2024 11:49 AM PLANNED GIVING OFFICER documented as of this encounter Care Teams Supervisor Hot Dip Plating Relationship Specialty Start Date End Date Bao Pierre MD PCP - General Internal Medicine 07/09/17 documented as of this encounter
--- OUTSIDE RECORDS SUMMARY | 2024-10-01 08:36 | XMS_ITS | Encounter Summary ---
Author Organization [facility] Address [address] [place] [address] Care Team Providers Care Foot Tender Name Role Phone Bao Pierre MD Primary Care Provider [phone] Reason for Visit * Reason Comments Full Body Skin Examination 6 month, due to positive hx of SCC and AK's, new rough hard spots on forehead and right leg Encounter Details Date Type Department Care Team (Late st Contact Info) Description 04/18/2018 11:00 AM CDT Office Visit [facility] General Dermatology [address] [place] [phone] Sonal Noriega MD [address] [place] [phone] Actinic keratosis (Primary Dx); Seborrheic keratoses; Angioma; History of squamous cell carcinoma Social History Tobacco Use Types Packs/Day Years [...] on file documented as of this encounter Patient Instructions * Patient Instructions* Sonal Noriega MD - 04/18/2018 11:35 AM CDT It was a pleasure seeing you in the office today. Please follow up in 1 year. POST CRYOTHERAPY CARE ?? Redness and swelling may occur within minutes of thawing. ?? Avoid any trauma to the treated site. ?? A clear blister or a blood blister may appear on the skin in the treated area within 12 to 48 hours. ?? If the blister is painful, you may drain the blister using a sterile pin. To sterilize the pin, hold it over the flame of a match or wipe the tip with an alcohol-soaked cotton ball. Poke a hole inthe blister and drain the fluid. Do not remove the skin of the blister; this blister acts as a bandage for the area. ?? After 24 hours, clean the areas twice a day with mild soap and water. Pat dry and apply petroleum jelly with a cotton swab. The petroleum jelly will help keep the area moist, help prevent a scab from forming, and less the chance of infection. If you wish, you may cover the area with a bandage. Notify your physician if you have: ?? Yellowish/greenish discharge from the treated area ?? Increasing tenderness or pain ?? Warmth of the area and/or fever over 101 F ?? Red streaks up the arm or leg close to the treated area documented in this encounter Progress Notes * Sonal Noriega MD - 04/18/2018 11:36 AM CDT Chief Complaint Patient presents with ??? Full Body Skin Examination 6 month, due to positive hx of SCC and AK's, new rough hard spots on forehead and right leg HPI: Frandy Alvares a 82 y.o. male presents for skin exam. Concerns: Various spots Location: Face and back and right thigh Duration: Few months Symptoms: none Previous treatments: LN2 to similar lesions on face before Personal history of skin cancer: SCC PE: No acute distress. Mood clear/affect appropriate. Alert and oriented. Mucous membranes moist. Sclera anicteric. Full body skin exam was conducted to include the scalp, face, lips/teeth, lids/conjunctiva, ears, neck, chest, abdomen, back, groin/buttock, right and left hands and forearms, right and left leg and feet and was normal with the following exceptions: scattered gritty macules on face and ears, scattered reid and brown stuck on papules on trunk and extremities including right thigh, few red papules on trunk A/P: Frandy was seen today for full body skin examination. Diagnoses and all orders for this visit: Actinic keratosis - PROC DESTRUCTION OF PRE-MALIGNANT LESIONS - Face and ears - LN2 to 12 lesions today Seborrheic keratoses -Reassured -Benign Angioma -Reassured -Benign History of squamous cell carcinoma -No evident recurrence -Sun protection -FBSE yrly AAD skin cancer hand out reviewed with patient. Refills may be given up to one year. Sun protection and self exam discussed. Sonal Noriega MD, PhD documented in this encounter Procedure Notes * Sonal Noriega MD - 04/18/2018 11:41 AM CDTAssociated Order(s): PROC DESTRUCTION OF PRE-MALIGNANT LESIONS Procedure(s): ID DESTROY PREMALIG LESION, 1ST LESION; ID DESTROY PREMALIG LESION, 2-14 Pre-Procedure Diagnose(s): Actinic keratosis Diagnosis and treatment options discussed. Cryotherapy (Liquid Nitrogen) to 12 lesions face and ears for 5-7 seconds each. Number of cycles: 1. Wound care reviewed. documented in this encounter Plan of Treatment Upcoming Encounters Date Type Department Care Team (Late st Contact Info) Description 10/09/2024 11:30 AM METAPHYSICIST Office Visit [facility] - Dermatology [address] [place] [phone] Katharine Bar MD [address] [place] [address] [address] [place] [address] 11/19/2024 8:30 AM METAPHYSICIST Office Visit [facility] - Dermatology [address] [place] [phone] Patricia Jarvis MD [address] [place] [address] 11/22/2024 8:00 AM METAPHYSICIST Office Visit [facility] - Neurology [address] [facility], [place] [address] Chay Nieves MD [address] [place] [address] documented as of this encounter Procedures Procedure Name Priority Date/Time Associated Diagnosis Comments ID DESTROY PREMALIG LESION, 1ST LESION Routine 04/18/2018 11:41 AM CDT Actinic keratosis ID DESTROY PREMALIG LESION, 2-14 Routine 04/18/2018 11:41 AM CDT Actinic keratosis documented in this encounter Results * ID DESTROY PREMALIG LESION, 2-14, ID DESTROY PREMALIG LESION, 1ST LESION (04/18/2018 11:41 AM CDT) Narrative Sonal Noriega MD - 04/18/2018 11:41 AM CDT Sonal Noriega MD ? 04/18/2018 11:41 AM Diagnosis and treatment options discussed. Cryotherapy (Liquid Nitrogen) to 12 lesions face and ears for 5-7 seconds each. Number of cycles: 1. Wound care reviewed. Sonal Noriega MD PROCEDURE/MINOR SANTO RGICAL ORDERABLES documented in this encounter Visit Diagnoses Diagnosis Actinic keratosis- Primary Seborrheic keratoses Angioma Hemangioma of unspecified site History of squamous cell carcinoma Personal history of malignant neoplasm of other site documented in this encounter Care Teams Foot Tender Relationship Specialty Start Date End Date Bao Pierre MD PCP - General Internal Medicine 07/09/17 documented as of this encounter
--- OUTSIDE RECORDS SUMMARY | 2024-10-01 08:36 | XMS_ITS | Encounter Summary ---
Author Organization [facility] Address [address] [place] [address] Care Team Providers Care Rn Neonatal Name Role Phone Bao Pierre MD Primary Care Provider [phone] Reason for Visit * Reason Comments Skin Lesion has some spots on th e scalp that wants to be looked at. Encounter Details Date Type Department Care Team (Late st Contact Info) Description 03/14/2019 11:20 AM CDT Office Visit [facility] General Dermatology [address] [place] [address] Martina Fisher PA [address] [facility] 3L [place] [phone] Actinic keratosis (Primary Dx) Social History Tobacco Use Types [...] this encounter Patient Instructions * Patient Instructions* Martina Fisher PA - 03/14/2019 11:21 AM CDT Follow up in 3 months We will try to get you a 3 day treatment. Otherwise: We have prescribed Efudex (Fluorouracil) to treat Actinic Keratoses (precancerous lesions). 1. Apply a thin coat of the cream twice a day to the forehead and temples twice a day for 3 weeks. 2. Then apply Vaseline /Aquaphor 10-20 minute on top of the area treated with Efudex. Do not wash off the Efudex that was applied. Apply mupirocin a couple of times a day. 3. Wash area in the morning and re-apply. 4. Continue to apply Vaseline in between therapy. Use sunscreen or wear a wide brim hat/long sleeves when you go outside. This will minimize the irritation from the medication. 5. The area will have some mild redness during the first week, then you may experience a raw, irritated feeling , redness, scaling, and swelling during the following weeks. The lesions will resolve as the skin exfoliates. 6. Schedule follow-up in 3 weeks for evaluation of treatment efficacy. 7. It may take 1-2 weeks for the skin to heal after the exfoliation/peeling. 8. If you notice excessive yellow crusting, ulcerations, or increased pain, please contact my office. This may indicate a sign of infection or over-treating of the lesions. The purpose of the Vaseline/Aquaphor is to help reduce irritation caused by the Efudex so it shouldbe applied on top of the Efudex. PLEASE CALL US IF THERE ARE ANY QUESTIONS REGARDING THESE INSTRUCTIONS. documented in this encounter Progress Notes * Martina Fisher PA - 03/14/2019 11:15 AM CDT Chief Complaint Patient presents with ??? Skin Lesion has some spots on the scalp that wants to be looked at. HPI: Frandy Alvares a 83 year old male presents for skin exam. Declines skin exam since just had one on February [address] Leone Concerns: Lesions Location: Scalp /hairline Duration: Weeks/months Symptoms: scaly Previous treatments: ? 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 Mood clear/affect appropriate. Alert and oriented. Mucous membranes moist. Sclera anicteric. Visible skin exam was conducted to include the scalp, face, lips/teeth, lids/conjunctiva, ears, neck, right and left hands and forearms and was normal with the following exceptions: gritty pink papules on FH and temples A/P: Frandy was seen today for skin lesion. Diagnoses and all orders for this visit: Actinic keratosis He had almost a dozen tx less than a month ago Discussed field therapy with picato Follow up in 3 months 6 at left fh/oriental orthodox treated today - PROC DESTRUCTION OF PRE-MALIGNANT LESIONS - ingenol (PICATO) 0.015 % gel; Apply to affected area once daily For actinic keratosis on the Forehead and your hair line Use for 3 days. RTC in 3 months AAD skin cancer hand out reviewed with patient. Refills may be given up to one year. Sun protection and self exam discussed. SANDIP Barnes documented in this encounter Procedure Notes * Martina Fisher PA - 03/14/2019 11:23 AM CDTAssociated Order(s): PROC DESTRUCTION OF PRE-MALIGNANT LESIONS Procedure(s): IN DESTROY PREMALIG LESION, 1ST LESION; IN DESTROY PREMALIG LESION, 2-14 Pre-Procedure Diagnose(s): Actinic keratosis Diagnosis and treatment options discussed. Cryotherapy (Liquid Nitrogen) to 6 left FH lesions for 5seconds each. Number of cycles: 1. Wound care reviewed. documented in this encounter Plan of Treatment Upcoming Encounters Date Type Department Care Team (Late st Contact Info) Description 10/09/2024 11:30 AM LEVEL GLASS VIAL FILLER Office Visit [facility] - Dermatology [address] [place] [address], [place] [phone] Katharine Bar MD [address] [place] [address] [place] [phone] 11/19/2024 8:30 AM LEVEL GLASS VIAL FILLER Office Visit [facility] - Dermatology [address] [place] [address], [place] [phone] Patricia Jarvis MD [address] [place] [address] 11/22/2024 8:00 AM LEVEL GLASS VIAL FILLER Office Visit [facility] - Neurology [address], [place] [phone] Chay Nieves MD [address] [place] [address] documented as of this encounter Procedures Procedure Name Priority Date/Time Associated Diagnosis Comments IN DESTROY PREMALIG LESION, 1ST LESION Routine 03/14/2019 11:23 AM CDT Actinic keratosis IN DESTROY PREMALIG LESION, 2-14 Routine 03/14/2019 11:23 AM CDT Actinic keratosis documented in this encounter Results * IN DESTROY PREMALIG LESION, 2-14, IN DESTROY PREMALIG LESION, 1ST LESION (03/14/2019 11:23 AM CDT) Narrative Martina Fisher PA - 03/14/2019 11:23 AM CDT Martina Fisher PA ? 03/14/2019 11:23 AM Diagnosis and treatment options discussed. Cryotherapy (Liquid Nitrogen) to 6 left FH ??lesions for 5 seconds each. Number of cycles: 1. Wound care reviewed. Martina OROPEZA PROCEDURE/MINOR SURG ICAL ORDERABLES documented in this encounter Visit Diagnoses Diagnosis Actinic keratosis- Primary documented in this encounter Care Teams Rn Neonatal Relationship Specialty Start Date End Date Bao Pierre MD PCP - General Internal Medicine 07/09/17 documented as of this encounter
--- OUTSIDE RECORDS SUMMARY | 2024-10-01 08:36 | XMS_ITS | Encounter Summary ---
Author Organization [facility] Health Address [address] [facility] [place] [address] Care Team Providers Care Electrotype Caster Name Role Phone Bao Pierre MD Primary Care Provider [phone] Encounter Details Date Type Department Care Team (Latest Contact Info) Description 09/14/2024 Travel Social History Tobacco Use Types Packs/Day [...] and heating? Not hard at all 09/15/2024 [facility] [place] of Occupat ional Health - Occupational Stress [...] any time in the past 12 m [facility], were you homeless or living in a halfway (including now)? No 09/15/2024 Sex and Gender [...] Yes 09/08/2024 documented as of this encounter Plan of Treatment Upcoming Encounters Date Type Department Care Team (Late st Contact Info) Description 10/09/2024 11:30 AM AGILE COACH Office Visit [facility] - Dermatology [address] [place] [address], [place] [phone] Katharine Bar MD [address] [place] [address] [place] [phone] 11/19/2024 8:30 AM AGILE COACH Office Visit [facility] - Dermatology [address] [place] [phone] Patricia Jarvis MD [address] [place] [address] 11/22/2024 8:00 AM AGILE COACH Office Visit [facility] - Neurology [address] [facility], [place] [phone] Chay Nieves MD [address] [place] [address] documented as of this encounter Visit Diagnoses Not on filedocumented in this encounter Care Teams Electrotype Caster Relationship Specialty Start Date End Date Bao Pierre MD PCP - General Internal Medicine 07/09/17 documented as of this encounter
--- OUTSIDE RECORDS SUMMARY | 2024-10-01 08:36 | XMS_ITS | Encounter Summary ---
Author Organization [facility] Address [address] [facility] [place] [address] Care Team Providers Care Options Advisor Name Role Phone Bao Pierre MD Primary Care Provider Reason for Visit * Reason Onset Date Comments Imm Inj Imm Inj 06/18/2020 Encounter Details Date Type Department Care Team (Late st Contact Info) Description 06/18/2020 12:00 PM CDT Office Visit [facility] [address] [place] [address] [facility] Exp Nameoki Need for prophylactic vaccination and inoculation against influenza (Primary Dx) Social History Tobacco [...] Exposure Response Date Recorded In the last month, have you been in contact with someone who was confirmed or suspected to have Coronavirus / COVID-19? No / Unsure 06/18/2020 11:21 AM CDT documented as of this encounter Progress Notes * Juany Simmons APRN-CNP - 06/18/2020 12:11 PM CDT Flu screening checklist was reviewed with the patient. VIS was given prior to administration. Injection site aseptically cleansed and injection given per Immunization(s) protocol. See Imm/Injections activity for details. documented in this encounter Plan of Treatment Upcoming Encounters Date Type Department Care Team (Late st Contact Info) Description 10/09/2024 11:30 AM MANAGER AVIATION Office Visit [facility] - Dermatology [address] [place] [phone] [place] [address] [place] [address] 3L [place] [phone] 11/19/2024 8:30 AM MANAGER AVIATION Office Visit [facility] - Dermatology [address] [place] [phone] Patricia Jarvis MD [address] [place] [address] 11/22/2024 8:00 AM MANAGER AVIATION Office Visit [facility] - Neurology [address] [place] [phone] Chay Nieves MD [address] [place] [address] documented as of this encounter Visit Diagnoses Diagnosis Need for prophylactic vaccination and inoculation against influenza- Primary documented in this encounter Care Teams Options Advisor Relationship Specialty Start Date End Date Bao Pierre MD PCP - General Internal Medicine 07/09/17 documented as of this encounter
--- OUTSIDE RECORDS SUMMARY | 2024-10-01 08:36 | XMS_ITS | Encounter Summary ---
Author Organization [facility] Health Address [address] [facility] [place] [address] Care Team Providers Care Bin Packer Name Role Phone Bao Pierre MD Primary Care Provider [phone] Reason for Visit * Reason Onset Date Comments Appointment 04/03/2023 Encounter Details Date Type Department Care Team (Late st Contact Info) Description 04/03/2023 Telephone [facility] - Dermatology [address] [place] [address], [place] [address] Katharine Bar MD [address] [place] [address] 3 [place] [address] Appointment Social History Tobacco Use Types Packs/Day Years [...] on file documented as of this encounter Miscellaneous Notes * Telephone Encounter - Bibiana Stanley - 04/03/2023 11:34 AM CDT Pt was called back and left a voicemail. * Telephone Encounter - Misty Hudson - 04/03/2023 11:07 AM CDT Pt son is wanting to reschedule his appointment . CB# [phone] documented in this encounter Plan of Treatment Upcoming Encounters Date Type Department Care Team (Late st Contact Info) Description 10/09/2024 11:30 AM NEPHROLOGIST Office Visit [facility] - Dermatology [address] [place] [phone] [place] [address] [place] [address] 3L [place] [phone] 11/19/2024 8:30 AM NEPHROLOGIST Office Visit [facility] - Dermatology [address] [place] [phone] Patricia Jarvis MD [address] [place] [address] 11/22/2024 8:00 AM NEPHROLOGIST Office Visit [facility] - Neurology [address] [place] [address], [place] [phone] Chay Nieves MD [address] [place] [address] documented as of this encounter Visit Diagnoses Not on filedocumented in this encounter Care Teams Bin Packer Relationship Specialty Start Date End Date Bao Pierre MD PCP - General Internal Medicine 07/09/17 documented as of this encounter
--- OUTSIDE RECORDS SUMMARY | 2024-10-01 08:36 | XMS_ITS | Encounter Summary ---
Author Organization [facility] Health Address [address] [place] [address] Care Team Providers Care Seater Grinder Name Role Phone Bao Pierre MD Primary Care Provider [phone] Reason for Visit * Reason Onset Date Comments Med Question 03/15/2019 Encounter Details Date Type Department Care Team (Late st Contact Info) Description 03/15/2019 Telephone [facility] General Dermatology [address] [place], [place] [phone] Martina Fisher PA [address] [facility] 3L [place] [phone] Med Question Social History Tobacco Use Types Packs/Day Years [...] encounter Miscellaneous Notes * Telephone Encounter - Vandana Rubio - 03/15/2019 3:24 PM CDT Pt can get efudex for $65.00 at [facility] (must be spear 5FU) You can also get Efudex 40g for $40.00 meeks pay at [facility]. Ok to switch? * Telephone Encounter - Adrianna Johnson - 03/15/2019 1:45 PM CDT Pt called stating that the efudex(fluorouracil) is to expensive and would like to know if a different prescription can be called in? Pt would like to know If the medication is necessary. Please advise * Telephone Encounter - Javier Yarbrough - 03/15/2019 1:09 PM CDT Pt called to report script was never received by his pharmacy. Please re-send script. Pari Yarbrough Senior Patient Photoresist Printer Department of Dermatology, Mohs Surgery and Cutaneous Oncology [facility] documented in this encounter Plan of Treatment Upcoming Encounters Date Type Department Care Team (Late st Contact Info) Description 10/09/2024 11:30 AM COMMAND CENTER ANALYST Office Visit [facility] - Dermatology [address] [place] [phone] Katharine Bar MD [address] [place] [address] 3 [place] [address] 11/19/2024 8:30 AM COMMAND CENTER ANALYST Office Visit [facility] - Dermatology [address] [place] [phone] Patricia Jarvis MD [address] [place] [address] 11/22/2024 8:00 AM COMMAND CENTER ANALYST Office Visit [facility] - Neurology [address] [place] [phone] Chay Nieves MD [address] [place] [address] documented as of this encounter Visit Diagnoses Not on filedocumented in this encounter Additional Health Concerns Infection Onset Date Last Indicated Resolved Time COVID-19 Under Investigation 08/28/2024 08/28/2024 08/28/2024 11:49 AM COMMAND CENTER ANALYST documented as of this encounter Care Teams Seater Grinder Relationship Specialty Start Date End Date Bao Pierre MD PCP - General Internal Medicine 07/09/17 documented as of this encounter
--- OUTSIDE RECORDS SUMMARY | 2024-10-01 08:36 | XMS_ITS | Encounter Summary ---
Author Organization [facility] Address [address] [facility] [place] [address] Care Team Providers Care Director Of Career Resources Name Role Phone Bao Pierre MD Primary Care Provider [phone] Encounter Details Date Type Department Care Team (Latest Contact Info) Description 12/06/2023 Travel Social History Tobacco Use Types Packs/Day [...] st Contact Info) Description 10/09/2024 11:30 AM GAUGE AND INSTRUMENT INSPECTOR Office Visit [facility] - Dermatology [address] [place] [phone] Katharine Bar MD [address] [place] [address] [place] [address] 11/19/2024 8:30 AM GAUGE AND INSTRUMENT INSPECTOR Office Visit [facility] - Dermatology [address] [place] [phone] Patricia Jarvis MD [facility] [place] [address] 11/22/2024 8:00 AM GAUGE AND INSTRUMENT INSPECTOR Office Visit [facility] Neurology [address] [place] [phone] Chay Nieves MD [address] [place] [address] documented as of this encounter Visit Diagnoses Not on filedocumented in this encounter Care Teams Director Of Career Resources Relationship Specialty Start Date End Date Bao Pierre MD PCP - General Internal Medicine 07/09/17 documented as of this encounter
--- OUTSIDE RECORDS SUMMARY | 2024-10-01 08:36 | XMS_ITS | Encounter Summary ---
Author Organization [facility] Health Address [address] [place] [address] Care Team Providers Care Bicycle Assembler Name Role Phone Bao Pierre MD Primary Care Provider [phone] Reason for Visit * Reason Comments Transitions Of Care Encounter Details Date Type Department Care Team (Latest Contact Info) Description 09/13/2024 Transitional Care [facility] CARE COORDINATION [address] [place] [phone] Thelma Caldera, RN Transitions Of Care Social History Tobacco Use Types Packs/Day Years Used Date Smoking Tobacco: Former Pipe Q uit: 2015 Smokeless Tobacco: Former Alcohol Use Standard Drinks/Week Comments Yes 0 (1 standard drink = 0.6 oz pur e alcohol) rarely AUDIT-C Answer Date Recorded Q1: How often do you have a drink containing alcohol? Never 09/08/2024 Q2: How many drinks containi ng alcohol do you have on a typical day when you are drinking? Patient does not drink Q3: How often do you have si x or more drinks on one occasion? Never 09/08/2024 Overall Financial Resource Strain (CARDIA) Answe r Date Recorded How hard is it for you to pa y for the very basics like food, housing, medical care, and heating? Not very hard 09/08/2024 [facility] [place] of Occupat ional Health - Occupational Stress Questionnaire Answer Date Recorded Do you feel stress - tense, restless, nervous, or anxious, or unable to sleep at night because your mind is troubled all the time - these days? Patient unable to answer 09/08/2024 Hunger Vital Sign Answer Date Recorded Within the past 12 months, y ou worried that your food would run out before you got the money to buy more. Never true 09/08/20 24 Within the past 12 months, t he food you bought just didn't last and you didn't have money to get more. Never true 09/08/2024 PRAPARE - Transportation Answer Date Re corded In the past 12 months, has l ack of transportation kept you from medical appointments or from getting medications? No 05/2024 In the past 12 months, has l ack of transportation kept you from meetings, work, or from getting things needed for daily living? No 09/08/2024 Housing Stability Vital Sign Answer Mack e Recorded In the last 12 months, was t here a time when you were not able to pay the mortgage or rent on time? No 09/08/2024 In the past 12 months, how m any times have you moved where you were living? 0 09/08/2024 At any time in the past 12 m [facility], were you homeless or living in a halfway (including now)? No 09/08/2024 Sex and Gender Information Value Date Recorded [...] Yes 09/08/2024 documented as of this encounter Miscellaneous Notes * Telephone Encounter - Thelma Caldera RN - 09/13/2024 12:39 PM CST Transition Jalousies Installer (TCC) Maliha Caldera RN post discharge follow-up contact by telephone: Patient with recent IP discharge from [facility] on 09/12 and had Readmission Risk Assessment (score of 19).As such, Patient receiving 1-2 week follow-up call. This TCC contacted pt son by telephone ([phone]) to complete pt post- discharge follow-up contact. 1) How are you feeling? Per son, things are going well 2) How is your mobility? Walker and assist 3) New concerns or problems? no 4) Have you had to go the ER for any reason? no 5) Any questions about your discharge diagnosis and instructions? no 6) Do you have a follow up appointment made? All fu reviewed and son to fu w PCP 7) Do you currently have home health, any questions about home care? na 8) Have you filled all of your RX's? We have medications 9) Any questions or concerns that we can help you with? Contact info shared w pt son Pt son verbalized that pt is feeling well. TCC inquired re: whether Patient has had any problems orquestions since dc. Son indicated he was able to obtain all of pt medications without incident. Sonindicated pt is taking all medications as prescribed. no symptoms related to dc meds. Son denied any current medical and psychosocial needs. Patient son denied any unscheduled visits to the ER, hospit al, or urgent care since discharge. Son denied any questions related to diet, medications, or condition at this time. TCC encouraged son to call this keno writer / runner with questions, concerns, barriers to care, and/or additional resources if needed. Son verbalized understanding and agreement with plan. TCC will continue to provide post-discharge monitoring for 30 days post-discharge with target end date ofprogram and intervention(s) set for 10/11. no follow-up needs identified or indicated at this time. Call Duration: 15 min Thelma Caldera RN, MSN Transition Jalousies Installer Office: [phone] 09/13/2024 NTIA PROGRAM DIRECTOR documented in this encounter Plan of Treatment Upcoming Encounters Date Type Department Care Team (Late st Contact Info) Description 10/09/2024 11:30 AM DEMENTIA PROGRAM DIRECTOR Office Visit [facility] - Dermatology [address] [place] [address], [place] [address] Katharine Bar MD [address] [place] [address] 3 [place] [address] 11/19/2024 8:30 AM DEMENTIA PROGRAM DIRECTOR Office Visit [facility] Dermatology [address] [facility], [place] [phone] Patricia Jarvis MD [address] [place] [address] 11/22/2024 8:00 AM DEMENTIA PROGRAM DIRECTOR Office Visit [facility] Neurology [address] [facility], [place] [phone] Chay Nieves MD [address] [place] [address] documented as of this encounter Visit Diagnoses Not on filedocumented in this encounter Care Teams Bicycle Assembler Relationship Specialty Start Date End Date Bao Pierre MD PCP - General Internal Medicine 07/09/17 documented as of this encounter
--- OUTSIDE RECORDS SUMMARY | 2024-10-01 08:36 | XMS_ITS | Encounter Summary ---
Author Organization [facility] Address [address] [facility] [place] [address] Care Team Providers Care Rescue Worker Name Role Phone Bao Pierre MD Primary Care Provider [phone] Encounter Details Date Type Department Care Team (Latest Contact Info) Description 11/07/2023 Travel Social History Tobacco Use Types Packs/Day [...] st Contact Info) Description 10/09/2024 11:30 AM CONVEX GRINDER Office Visit [facility] - Dermatology [address] [place] [phone] Katharine Bar MD [address] [place] [address] [place] [address] 11/19/2024 8:30 AM CONVEX GRINDER Office Visit [facility] Dermatology [address] [place] [phone] Patricia Jarvis MD [facility] [place] [address] 11/22/2024 8:00 AM CONVEX GRINDER Office Visit [facility] Neurology [address] [place] [phone] Chay Nieves MD [address] [place] [address] documented as of this encounter Visit Diagnoses Not on filedocumented in this encounter Care Teams Rescue Worker Relationship Specialty Start Date End Date Bao Pierre MD PCP - General Internal Medicine 07/09/17 documented as of this encounter
--- OUTSIDE RECORDS SUMMARY | 2024-10-01 08:36 | XMS_ITS | Encounter Summary ---
Author Organization [facility] Address [address] [place] [address] Care Team Providers Care Esthetician Makeup Artist Name Role Phone Bao Pierre MD Primary Care Provider [phone] Reason for Visit * Reason Comments Lesions Check scalp only; de clines FBSE today Encounter Details Date Type Department Care Team (Late st Contact Info) Description 05/05/2020 10:10 AM CDT Office Visit [facility] [address] [place] [address] Manfred Kelley MD [address] [place] [address] Actinic keratosis (Primary Dx); History of SCC (squamous cell carcinoma) of skin; Solar lentiginosis; Melanocytic nevi of trunk; Seborrheic keratosis Social History Tobacco Use Types Packs/Day Years [...] this encounter Patient Instructions * Patient Instructions* Manfred Kelley MD - 05/05/2020 10:49 AM CDT POST CRYOTHERAPY CARE Redness and swelling may occur within minutes of thawing. Avoid any trauma to the treated site. A clear blister or a blood blister may appear on the skin in the treated area within 12 to 48 hours. If the blister is painful, you may drain the blister using a sterile pin. To sterilize the pin, hold it over the flame of a match or wipe the tip with an alcohol-soaked cotton ball. Poke a hole in the blister and drain the fluid. Do not remove the skin of the blister; this blister acts as a bandagefor the area. After 24 hours, clean the areas twice a day with mild soap and water. Pat dry and apply petroleum jelly with a cotton swab. The petroleum jelly will help keep the area moist, help prevent a scab fromforming, and less the chance of infection. If you wish, you may cover the area with a bandage. Notify your physician if you have: Yellowish/greenish discharge from the treated area Increasing tenderness or pain Warmth of the area and/or fever over 101 F Red streaks up the arm or leg close to the treated area documented in this encounter Progress Notes * Lincoln Leone MD - 05/05/2020 10:50 AM CDT Patient seen and examined with Resident. Please see note for further details. I was present for thekey portions of any procedures performed and always available. I confirm history, exam, assessment and plan with the following exceptions/additions: CC: eval lesions HPI: Prior Dr. Noriega. 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 Usually not painful. Focal lesions usually respond well to cryo. Has hx brown spots, kisha on back. Nevi, lentigines, SK. Most present for years. None seem to be changing or painful. No active trt for brown spots. Bx 09/09/11: R lower lip: venous salcedo, thrombus Bx 05/04/15: submandibular: ruptured cyst/follicle Bx 06/03/16 L nasal SW: dermal fibrosis, perifolliculitis ROS: No recent relevant illnesses/fevers or other skin complaints except noted otherwise. Relevant past medical history, social history and family history were reviewed, no changes or remarkable points unless otherwise noted. 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; spinal stenosis PE: Gen: Alert, oriented, NAD, affect appropriate, pleasant Skin: Exam of the face, eyelids, scalp, lips, neck, bilat upper extr including nails and digits, chest, back, abd, bilat lower extr examined and unremarkable unless otherwise noted below: -well-healed scars in areas of prior skin ca as described above -reid to brown well defined macules on shoulders -waxy, well-defined, stuck on papules on the extr, trunk -brown macules and papules on trunk and extr, but none with markedly different appearance from the others unless otherwise noted -xerosis -rough, gritty, poorly defined papules on face, Assessment/Plan Hx NMSC (non-melanoma skin ca) as described above -no signs of recurrence except/unless noted otherwise -sun protective behaviors incl sunblock/sunscreen -f/u at least yearly Actinic keratosis (AK) -cryo Actinic lentigines/solar lentiginosis, multiple nevi -benign, educ, reassurance -marker of chronic sun damage and increased risk for skin malignancy, yearly FBSE reasonable -sun protection seborrheic keratosis -benign, educ of nature, causes, course -reassurance not dangerous/cancerous -no treatment indicated unless symptomatic Lincoln Leone MD * Manfred Kelley MD - 05/05/2020 10:41 AM CDT Chief Complaint Patient presents with ??? Lesions Check scalp only; declines FBSE today HPI: Frandy Alvares a 84 year old male presents for skin exam. LV 02/22/2019 seen for - aks; ln2 - hx SCC; ner - NUB; bx returned bvk Concerns: 1. Scaly spots on forehead present for months, no other symptoms, treatments, or evolution Allergies and medications were reviewed and verified. Past medical history, social history and family history were reviewed. ROS: As per HPI above. Patient denies fever, chills and night sweats. 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 Mood clear/affect appropriate. Alert and oriented. Mucous membranes moist. Sclera anicteric. Visible skin exam was conducted to include the scalp, face, lips/teeth, lids/conjunctiva, ears, neck, right and left hands and forearms and was normal with the following exceptions: - gritty pink macules located on face - Well healed scar at site of previous skin cancer surgery, NER A/P: Frandy was seen today for lesions. Diagnoses and all orders for this visit: Actinic keratosis - PROC DESTRUCTION OF PRE-MALIGNANT LESIONS - Discussed premalignant potential - Fully reviewed treatment options with patient including indications, risks, benefits, alternatives to LN2 - Cryo x 7 lesions on face, 5-7 second freeze time x 1 cycle - Wound care reviewed and post cryo handout given History of SCC (squamous cell carcinoma) of skin - H/O SCC -No evident recurrence -Sun protection -FBSE Solar lentiginosis - benign, reassurance - discussed benefits of sunscreen and concept of repeated small doses of sun leading to large cumulative exposure that can lead to damage carcinogenesis - Rec sunscreen w/ physical blocking agents preferred over chemical blocking agents. Look for broadband UV on label RTC in 6 months for FBSE Manfred Kelley MD Dermatology Resident, PGY-IV documented in this encounter Procedure Notes * Manfred Kelley MD - 05/05/2020 10:49 AM CDTAssociated Order(s): PROC DESTRUCTION OF PRE-MALIGNANT LESIONS Procedure(s): NE DESTROY PREMALIG LESION, 1ST LESION; NE DESTROY PREMALIG LESION, 2-14 Pre-Procedure Diagnose(s): Actinic keratosis Diagnosis and treatment options discussed for AKs. Verbal consent obtained. Cryotherapy (Liquid Nitrogen) performed to 7 lesions on forehead for 6-7 seconds each. Number of cycles: 1. Wound care reviewed and post-cryotherapy handout given. Manfred Kelley MD [facility] Dermatology Resident, PGY-3 ENT SUPPORT SERVICES DIRECTOR documented in this encounter Plan of Treatment Upcoming Encounters Date Type Department Care Team (Late st Contact Info) Description 10/09/2024 11:30 AM STUDENT SUPPORT SERVICES DIRECTOR Office Visit [facility] - Dermatology [address] [place] [address], [place] [address] [place] [address] [place] [address] [address] [place] [address] 11/19/2024 8:30 AM STUDENT SUPPORT SERVICES DIRECTOR Office Visit [facility] - Dermatology [address] [place] [address], [place] [address] Patricia Jarvis MD [address] [place] [address] 11/22/2024 8:00 AM STUDENT SUPPORT SERVICES DIRECTOR Office Visit [facility] - Neurology [address] [place] [phone] Chay Nieves MD [address] [place] [address] documented as of this encounter Procedures Procedure Name Priority Date/Time Associated Diagnosis Comments NE DESTROY PREMALIG LESION, 1ST LESION Routine 05/05/2020 10:49 AM CDT Actinic keratosis NE DESTROY PREMALIG LESION, 2-14 Routine 05/05/2020 10:49 AM CDT Actinic keratosis documented in this encounter Results * NE DESTROY PREMALIG LESION, 2-14, NE DESTROY PREMALIG LESION, 1ST LESION (05/05/2020 10:49 AM CDT) Narrative Lincoln Leone MD - 05/05/2020 10:49 AM CDT Manfred Kelley MD ? 05/05/2020 10:49 AM Diagnosis and treatment options discussed for AKs. Verbal consent obtained. Cryotherapy (Liquid Nitrogen) performed to 7 lesions on forehead ?? for 6-7 seconds each. Number of cycles: 1. Wound care reviewed and post-cryotherapy handout given. Manfred Kelley MD [facility] Dermatology Resident, PGY-3 Lincoln Leone MD PROCEDURE/MINOR SURG ICAL ORDERABLES documented in this encounter Visit Diagnoses Diagnosis Actinic keratosis- Primary History of SCC (squamous cell carcinoma) of skin Personal history of other malignant neoplasm of skin Solar lentiginosis Other dyschromia Melanocytic nevi of trunk Benign neoplasm of skin of trunk, except scrotum Seborrheic keratosis documented in this encounter Care Teams Esthetician Makeup Artist Relationship Specialty Start Date End Date Bao Pierre MD PCP - General Internal Medicine 07/09/17 documented as of this encounter
--- OUTSIDE RECORDS SUMMARY | 2024-10-01 08:36 | XMS_ITS | Encounter Summary ---
Author Organization [facility] Address [address] [place] [address] Care Team Providers Care Assistant Professor Of Mathematics Name Role Phone Bao Pierre MD Primary Care Provider [phone] Reason for Referral * Home Health Care (Routine) - Closed Specialty Diagnoses / Procedures Referred By Amber flores Referred To Contact Home Health Services Diagnoses Fall, subsequent encounter Dementia, unspecified dementia severity, unspecified dementia type, unspecified whether behavioral, psychotic, or mood disturbance or anxiety (HCC) Amanda Dacosta MD [address] [place] [id number] Referral ID Status Reason Start Date Expiration Date V isits Requested Visits Authorized [id number] Closed Specialty Services Required 09/11/2024 09/11/2025 999 999 GIOUS STUDIES PROFESSOR Reason for Visit * Reason Comments Injury Arm BIBEMS d/t raised sk in bump on left arm. * Auth/Cert (Routine) Specialty Diagnoses / Procedures Referred By Amber flores Referred To Contact Referral ID Status Reason Start Date Expiration Date Visits Re quested Visits Authorized [id number] 1 1 Encounter Details Date Type Department Care Team (Late st Contact Info) Description 09/07/2024 4:08 PM RELIGIOUS STUDIES PROFESSOR - 09/12/2024 1:13 PM RELIGIOUS STUDIES PROFESSOR Hospital Encounter [facility] [address] [place] [id number] Escobar Sorto MD [address] [place] [address] OF EMER[place]ENC[place] [address] Dante Wang DO [address] [place], [place] [id number] Issa Taveras MD [address] [place] [id number] Baljit Pratt MD [address] [place] [address] [place] [address] [place] [address] Internal Medicine Discharge Disposition: Home or Self Care Social History Tobacco Use Types Packs/Day [...] care, and heating? Not very hard 09/08/2024 [facility] - Occupational Stress [...] time in the past 12 m [facility], were you homeless or living in a usp (including now)? No 09/08/2024 Sex and Gender Information Value Date Recorded Sex Assigned at Not on file Gender Identity Not on file Sexual Orientation Not on file documented as of this encounter Last Filed Vital Signs Vital Sign Reading Time Taken Comments Blood Pressure 148/74 09/12/2024 9:02 AM RELIGIOUS STUDIES PROFESSOR Pulse 84 09/12/2024 9:02 AM RELIGIOUS STUDIES PROFESSOR Temperature 36.7 ??C (98.1 ??F) 09/12/2024 9:02 AM CS T Respiratory Rate 16 09/12/2024 9:02 AM RELIGIOUS STUDIES PROFESSOR Oxygen Saturation 94% 09/12/2024 9:02 AM RELIGIOUS STUDIES PROFESSOR Inhaled Oxygen Concentration - - Weight 68 kg (150 lb) 09/08/2024 2:00 AM RELIGIOUS STUDIES PROFESSOR Height 170.2 cm (5' 7 ) 09/08/2024 2:00 AM RELIGIOUS STUDIES PROFESSOR Body Mass Index 23.49 09/08/2024 2:00 AM RELIGIOUS STUDIES PROFESSOR documented in this encounter Functional Status Functional [...] Yes 09/08/2024 documented as of this encounter Discharge Summaries * Amanda Dacosta MD - 09/12/2024 1:13 PM CST Hospital Discharge Summary Patient ID: Frandy Alvares [id number] 89 year old 1935 Admit date: 09/07/2024 Discharge date: 09/12/2024 Admitting Physician: Dante Wang DO Discharge Physician: Amanda Dacosta MD Discharge Diagnoses: - UTI, resolved - chronic subdural hematoma, stable -chronic normocytic anemia stable. - doing shoes behavior disturbance, stable - seizure disorder, stable Admission Condition: fair Discharged Condition: fair Indication for Admission: After fall Hospital Course: Frandy Alvares is a 89 year old male with a past medical history significant for dementia, chronic subdural hematomas who presents to the hospital with left arm swelling. , was found to have superficial vein thrombosis, started on Eliquis, was also treated for MSSA UTI. Discharged home with his son. Incidental Findings Requiring Follow Up: None Consults: None Significant Diagnostic Studies: CBC: Recent Labs Lab Units 09/11/24202809/10/24212709/09/242148 WBC x10E9/L 6.4 7.8 9.3 RBC x10E12/L 2.87* 2.97* 2.84* HGB g/dL 8.9* 9.4* 8.9* HCT % 27.4* 28.9* 26.4* BMP: Recent Labs Lab Units 09/11/24202709/10/24212609/09/24 2149 NA mmol/L 136 136 136 CL mmol/L 101 103 104 CO2 mmol/L 25 24 22 BUN mg/dL 20 19 18 CREATININE mg/dL 0.95 0.92 1.02 CALCIUM mg/dL 8.2* 8.2* 8.2* Magnesium: No results for input(s): MG in the last 168 hours. Phosphorus: Recent Labs Lab Units 09/11/24202709/10/24212609/09/242148 PHOS mg/dL 3.4 2.4* 2.8 Coagulation: Recent Labs Lab Units 09/12/24 0613 09/11/24 0445 09/10/24 0610 PT Seconds 14.2 13.8 14.0 INR 1.1 1.1 1.1 Endocrine: No results for input(s): TSH , A1C in the last 168 hours. LFTs: Recent Labs Lab Units 09/11/24202709/10/24212609/09/24214809/08/24200609/07/24 1714 AST U/L -- -- -- -- 32 ALT U/L -- -- -- -- 30 TBILI mg/dL -- -- -- -- 0.3 ALB g/dL 2.6* 2.7* 2.6* < > 3.0* < > = values in this interval not displayed. XR Humerus Left 2Vw or More Result Date: 09/07/2024 IMPRESSION: No acute humeral fracture identified. Report dictated by Dante Mcclain MD, MD (residential concierge). I, Jason Mina MD have personally reviewed and interpreted this examination/study.> Interpreting Provider: Jason Mina MD on 09/07/2024 9:40 PM Discharge Exam: Blood pressure 148/74, pulse 84, temperature 98.1 ??F (36.7 ??C), temperature source Axillary, resp. rate 16, height 1.702 m (5' 7 ), weight 68 kg (150 lb), SpO2 94%. GEN: in NAD CHEST: Clear to auscultation bilaterally HEART: Regular rate and rhythm, Nl S1 and S2 No gallops. GI: Abdomen soft and non tender, non-distended, +BS EXT: No edema. PSYCH: Alert and oriented to person place time and situation. Good mood, appropriate affect. Disposition: Home, Home health Patient Instructions: Medication List START taking these medications acetaminophen 500 MG tablet Commonly known as: Tylenol Take 2 (two) tablets by mouth every 8 hours as needed for Headache (pain) Maximum allowable Acetaminophen amount = 4 Grams (4000 mg) / 24 hours. cephalexin 500 MG capsule Commonly known as: Keflex Take 1 (one) capsule by mouth 4 times daily for 2 days Eliquis 2.5 MG tablet Generic drug: apixaban Take 1 (one) tablet by mouth 2 times daily for 30 days folic acid 1 MG tablet Commonly known as: Folvite Take 1 (one) tablet by mouth once daily CONTINUE taking these medications Ensure Plus High Protein Liqd Take 1 container by mouth 3 times daily escitalopram 10 MG tablet Commonly known as: Lexapro Take 1 (one) tablet by mouth once daily Hair Skin and Nails Formula Tabs levETIRAcetam 500 MG tablet Commonly known as: Keppra Take 1 (one) tablet by mouth 2 times daily polyethylene glycol 3350 17 g packet Commonly known as: Miralax Take 17 (seventeen) g by mouth once daily QUEtiapine 25 MG tablet Commonly known as: SEROquel Take 1 (one) tablet by mouth every morning AND 0.5 (one-half) tablet at bedtime. May also take 0.5 (one-half) tablet 3 times daily as needed. Reasons: Agitation. sennosides 8.6 MG tablet Commonly known as: Senokot Take 1 (one) tablet by mouth once daily Vitamin D (Cholecalciferol) 25 MCG (1000 UT) Caps Where to Get Your Medications These medications were sent to [facility] [address] [id number] cephalexin 500 MG capsule Eliquis 2.5 MG tablet folic acid 1 MG tablet You can get these medications from any pharmacy You don't need a prescription for these medications acetaminophen 500 MG tablet Discharge Instructions None Signed: Amanda Dacosta MD 09/13/2024 Time spent on discharge: >45 minutes. Time was spent on preparation of discharge records, prescriptions, counseling patient, working withsocial work and nursing. GIOUS STUDIES PROFESSOR documented in this encounter Medications at Time [...] for 30 days 60 tablet 09/12/2024 10/12/2024 escitalopram (Lexapro) 10 MG tablet Take 1 [...] container by mouth 3 times daily 08/30/2024 polyethylene glycol 3350 (Miralax) 17 g packet [...] as of this encounter Progress Notes * Galina Hodge RN - 09/12/2024 1:13 PM CST Care Coordination Final Note Expected Discharge Date: 09/12/2024: Discharge Plan: Patient is medically ready to discharge and patients son and caregiver plans to transport patient to [facility]. EMILY sent referrals for home health as the doctor decided today that he needed them. CM put the sons address in the referrals. Family Support (Name and Phone): Extended Emergency Contact Information Primary Emergency Contact: BhartiShayy Mobile Relation: Friend Secondary Emergency Contact: Frandy Alvares Mobile Relation: Son Transportation at Discharge: : READMISSION RISK SCORE is 19 at 1:13 PM 09/12/2024.: Name: Galina Hodge RN GIOUS STUDIES PROFESSOR * Marily Giraldo RN - 09/12/2024 1:13 PM CST HOME CARE REFERRAL RECEIVED HOWEVER THE PATIENT RESIDES OUT OF THE SERVICE AREA & THE REFERRAL CAN NOT BE ACCEPTED. TIRE BUILDER HEAVY SERVICE MADE AWARE & THE REFERRAL CLOSED. Agueda Giraldo RN [facility] nurse rn bsn Liaison [facility] At Home [phone] GIOUS STUDIES PROFESSOR * Antony Johnson RN - 09/12/2024 12:56 PM CST Patient discharging home with son - this designer writer provided the patient and patient's private sitter with discharge education. Private sitter verbalized understanding. Patient discharged in stable condition. GIOUS STUDIES PROFESSOR * Antony Johnson RN - 09/12/2024 10:40 AM CST Problem: ELOPEMENT/ABDUCTION Goal: Risk for elopement &/or abduction during hospitalization is minimized Outcome: Progressing Problem: Restraint Safety Goal: Free from restraint(s) Description: INTERVENTIONS: Outcome: Progressing Goal: Remains free of injury from restraints Description: INTERVENTIONS: Outcome: Progressing Problem: Skin/Tissue Integrity - Adult Goal: Skin integrity remains intact Description: INTERVENTIONS: Outcome: Progressing Goal: Incisions, wounds, or drain sites healing without S/S of infection Description: INFECTIONS: Outcome: Progressing Goal: Oral mucous membranes remain intact Description: INTERVENTIONS: Outcome: Progressing Problem: Fall Risk Goal: Fall risk and fall related injury risk are minimized (interventions related to the fall risk can be found in the flowsheet documentation) Outcome: Progressing Problem: Balance Goal: LTG - Patient will demonstrate Intervention to enhance balance for safe completion of daily activities Outcome: Progressing Problem: Mobility Goal: STG - Patient will ambulate Outcome: Progressing GIOUS STUDIES PROFESSOR * Conor Hoover PT - 09/11/2024 4:00 PM CST 09/11/24 1500 Missed Visit Missed Visit Other (Comment) (Pt very sleepy, unable to arouse.) GIOUS STUDIES PROFESSOR * Amanda Dacosta MD - 09/11/2024 2:04 PM CST [facility] PROGRESS NOTE Age/Sex: 89 year old male Hospital Day: 4 Admission Date: 09/07/2024 Subjective: Son at the bedside, patient was resting, do did better today was able to eat his breakfast Objective: Patient Vitals for the past 24 hrs: Temp Pulse Resp BP SpO2 09/11/24 0722 97.4 ??F (36.3 ??C) 53 -- 145/77 99 % 09/11/24 0421 97.7 ??F (36.5 ??C) 67 18 156/75 98 % 09/11/24 0051 97.7 ??F (36.5 ??C) 61 16 120/66 98 % 09/10/24 1958 98.2 ??F (36.8 ??C) 82 -- 154/68 98 % 09/10/24 1508 98.2 ??F (36.8 ??C) 62 16 148/74 100 % Physical exam: General: alert, cooperative, no distress HEENT: NC, AT, oropharynx clear, EOMI Lungs: breath sounds normal; no rales, wheezes or rhonchi, breathing comfortably Heart: regular rate and rhythm, no murmurs/rubs/gallops Abdomen: soft, non-tender, non-distended, normal bowel sounds, no rebound or guarding Skin: No rashes noted Extremities: no edema MSK: Strength grossly symmetric, no obvious deformities Neuro: Alert, non-focal Recent lab reviewed as below: Recent Labs Component Name 09/10/24212709/09/24214809/08/242006 WBC 7.8 9.3 9.1 Recent Labs Component Name 09/10/24212609/09/24214809/08/242006 POTASSIUM 4.0 4.3 4.2 CO2 23 BUN 19 18 19 CREATININE 0.92 1.02 0.83 GLUCOSE 109* 135* 112* CALCIUM 8.2* 8.2* 8.4 Recent Labs Component Name 09/11/24 0445 09/10/24 0610 09/09/24 1040 INR 1.1 1.1 1.1 No results found for: CK , TROPONIN , QJVMCOME5F , CKMBRI No results found for: TSH Medications: 0.9% NaCl, 3 mL, q8h apixaban, 2.5 mg, BID cephalexin, 500 mg, 4X/day escitalopram, 10 mg, QDAY folic acid, 1 mg, QDAY levETIRAcetam, 500 mg, BID polyethylene glycol 3350, 17 g, QDAY QUEtiapine, 12.5 mg, QDAY And QUEtiapine, 25 mg, AT BEDTIME sennosides, 8.6 mg, QDAY vitamin D3, 1,000 Units, QDAY Problem list: Suspected deep vein thrombosis (DVT) (POA: Unknown) Assessment and Plan: Acute metabolic encephalopathy in the setting of MSSA UTI Urine cx + MSSA Afebrile, wo leukocytosis -Started Cefazolin on 09/08. -Pending blood cx. superficial venous thrombosis of the left cephalic vein. No evidence of deep thrombosis -was started therapeutic Lovenox empirically although he is low to intermediate risk of PT we will continue oral intake if -Warm compress to the area, elevate limb. -Neurovascular checks q.4 hours. Chronic subdural hematomas-stable -MRI 09/05/24: bilateral frontal convexity subdural collections 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 -Baseline neurologic exam is completely intact. -Monitor closely for worsening. -CTH and NSGY consult for any change in exam Chronic normocytic anemia-stable Iron studies to repeated outpatient Vit B12 levels-wnl Folate-low -Started folate suppl. Seizure disorder Concern for a seizure on 09/08 - EEG during last admission consistent with seizure disorder - therapeutic keppra level. - F/u EEG was difficult to be done - Continue home Keppra Dementia with behavioral disturbance-stable -Continue quetiapine b.i.d. -Delirium precautions. -Fall precautions. -Continue home Lexapro Bowel regimen -Cont mimi Miralax and Senna. Diet: Regular DVT prophylaxis: Therapeutic Lovenox Code status: DNR Disposition: Home with the son tomorrow, with home physical therapy Amanda Dacosta MD [facility] Medicine 09/11/2024 READMISSION RISK SCORE at discharge was 18.6 (09/11/2024 12:01 PM) GIOUS STUDIES PROFESSOR * Antony Johnson RN - 09/11/2024 10:13 AM CST Problem: ELOPEMENT/ABDUCTION Goal: Risk for elopement &/or abduction during hospitalization is minimized Outcome: Progressing Problem: Restraint Safety Goal: Free from restraint(s) Description: INTERVENTIONS: Outcome: Progressing Goal: Remains free of injury from restraints Description: INTERVENTIONS: Outcome: Progressing Problem: Skin/Tissue Integrity - Adult Goal: Skin integrity remains intact Description: INTERVENTIONS: Outcome: Progressing Goal: Incisions, wounds, or drain sites healing without S/S of infection Description: INFECTIONS: Outcome: Progressing Goal: Oral mucous membranes remain intact Description: INTERVENTIONS: Outcome: Progressing Problem: Fall Risk Goal: Fall risk and fall related injury risk are minimized (interventions related to the fall risk can be found in the flowsheet documentation) Outcome: Progressing Problem: Balance Goal: LTG - Patient will demonstrate Intervention to enhance balance for safe completion of daily activities Outcome: Progressing Problem: Mobility Goal: STG - Patient will ambulate Outcome: Progressing GIOUS STUDIES PROFESSOR * Whit Rock OT - 09/10/2024 2:09 PM CST [facility] Physical Medicine and Rehabilitation Occupational Therapy Initial Evaluation Note Patient: Frandy Alvares [facility] Record Number: [id number] Date of : 1935 Age: [age] year old PPE worn by staff: gloves PPE worn by patient: gown - patient, clean;socks - clean Tech: Co-eval with PT Recommendations: Discharge OT Discharge Recommendations: Patient would benefit from multidisciplinary therapy This recommendation is made due to ongoing OT functional needs: address care for self in the home;address functional deficits In addition to the 1:1 evaluation of the patient, additional eval time was spent completing the chart review prior to the assessment, completing the multidisciplinary plan of care and education plan post evaluation and communicating results of the eval to other treatment team members. Physical Therapist contacted regarding patient status and/or discharge plan. 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 Multiple benign nevi of upper and lower extremities, and trunk Trauma Impaired mobility and ADLs Altered mental status Fall SDH (subdural hematoma) (HCC) Fall, subsequent encounter Contusion of right lung, initial encounter Closed fracture of one rib of right side, initial encounter Dementia (HCC) Delirium Observed seizure-like activity (HCC) Severe protein-calorie malnutrition (HCC) Orthostatic hypotension Suspected deep vein thrombosis (DVT) Past Medical History: Diagnosis Date Actinic keratosis Dementia (HCC) Squamous cell carcinoma SUBJECTIVE: Subjective: Agreeable to Therapy evaluation PATIENT GOALS: Patient's Primary Concern: Getting warm Home Situation: Type of Residence: Private Residence Living arrangement: Alone;Other (Comment) (Aides that rotate and stay with him) Steps to Enter: 3 Home Structure: One Story Primary Bedroom: First Floor Primary Bathroom: First Floor Bathroom : Walk in Shower Equipment at Home: Bathroom Equipment;Walker;Wheelchair Prior Level of Functioning: Mobility: Ambulate-In Home ;With Assistive Device Have Help at Home?: Yes, there is help at home now Who assists you at home?: Home Health;Friends/Family (son and aides) How often is assistance provided?: 24 hrs/day Level of Help Sufficient?: Yes Oxygen at Home: No Vision: Other (Comment) (Unable to determine) Hearing Exceptions: ([facility]) Pain Assessment: Pain Assessment Pain Scale/Observation: No/denies pain (When asked if pt had pain he said yes but unable to tel therapist any additional information as in location, level or type) OBJECTIVE: At start of therapy session, patient found in bed and floor pads, HH aide, and sitter in hallway General Appearance: Received asleep but easily awaken LDA: Floor: IVs: Peripheral line Edema: No edema noted Observations: Reports no dizziness or SOB throughout session Mental Status/Cognition: Level of Consciousness-Adult: Responds to voice Orientation Level: Disoriented to Time;Disoriented to Situation;Disoriented to Place Cognition: Impulsive;Confused Attention Span: Difficulty attending to directions Memory: Decreased recall of biographical information;Decreased recall of precautions;Decreased recall of recent events;Decreased short term memory Following Commands: (Follows 1 step commands inconsistently) Safety Judgement: Decreased awareness of need for assistance Awareness of Errors: Decreased awareness of deficits Problem Solving: Assistance required to implement solutions;Assistance required to identify errors made;Assistance required to generate solutions UE ROM: RUE: AROM WFL based on observation. Not formally assessed due to pt's difficulty following commands LUE: AROM WFL based on observation. Not formally assessed due to pt's difficulty following commands Strength: RUE: WFL based on observation. Not formally assessed due to pt's difficulty following commands LUE: WFL based on observation. Not formally assessed due to pt's difficulty following commands UE Tone RUE: no abnormal tone noted LUE: no abnormal tone noted Coordination: Appears WFL based on observation. Not formally assessed due to pt's difficulty following commands UE Proprioception RUE: WFL LUE: WFL UE Sensation RUE: no complaints of numbness or tingling LUE: no complaints of numbness or tingling Perception: Inattention/Neglect: Appears intact Initiation: Cues to initiate tasks Motor Planning: Appears intact Visual Motor Tracking: Other (Comment) (Did not assess due to pt's difficulty following commands) Mobility: A gait belt and non-slip socks were used for all out of bed activity this date. Bed Mobility: Rolling: Activity Does Not Occur Supine to Sit: Minimal Assistance with HOB in semi-fowlers position Sit to Supine: Minimal Assistance Transfers: Sit to Stand: Minimal Assistance Stand to Sit: Minimal Assistance Type of Transfer: Other (Comment) (ambulatory) Transfer Device: Walker-2 Wheeled;Gait belt Functional Ambulation: Patient ambulated to nurse's station with min A assist using FWW. Balance: Balance Scales/Tests Used: Sitting: Static/Dynamic;Standing: Static/Dynamic Sitting - Static: Fair +;With Both Upper Extremity's Support Sitting - Dynamic: Fair +;With Both Upper Extremity's Support Standing - Static: Fair;With Both Upper Extremity's Support Standing - Dynamic: Fair;With Both Upper Extremity's Support Activities of Daily Living Feeding: Activity Does Not Occur Oral Facial Hygiene: Activity Does Not Occur Bathing: Activity Does Not Occur Upper Body Dressing: Minimal Assistance (To adjust gown) Lower Body Dressing: Other (Comment) (Attempted to have pt doff/ligia socks but was unable to follw directions to complete task) Toileting: Activity Does Not Occur Splint Issued/Checked: none ACTIVITY TOLERANCE: Activity Tolerance: Requires seated rest breaks AM-PAC 6 Clicks Daily Activity Raw Score:: 16 TREATMENT / EDUCATION / INTERVENTIONS: While performing OT, Patient was instructed in:functional mobility training, safety awareness/fall precautions Presented to patient who demonstrates Poor understanding of instructions given. INFORMED CONSENT TO TREATMENT: Plan of care is discussed but patient with questionable understanding. ASSESSMENT: Functional performance limited due to: decreased functional mobility, decreased functional balance,decreased cognition , decreased safety awareness, and decreased endurance and activity tolerance. Patient continues to benefit from skilled Occupational Therapy to achieve the following functional goals. Short Term Goals: Goal Formation With patient/family Patient will perform upper extremity dressing with stand by assist and with cueing Patient will perform lower extremity dressing with stand by assist, with cueing, and with setup Patient will perform toileting with stand by assist and with cueing Patient will perform bed to chair with stand by assist, with appropriate assistive device, with good safety/judgment, and with cues Patient will tolerate treatment 15 minutes [facility] Goal(s): Patient to discharge to appropriate next level of inpatient care. Plan: Patient continues to benefit from skilled therapy services. If patient is discharged from the facility, this note serves as a discharge summary if further occupational therapy visits did not occur. Refer to filed flowsheet for further details. Following therapy session, patient left in bed, with call light within reach, with family in room, with fall mats in place, all lines/tubes intact, HH aide, and sitter in the hallway . GIOUS STUDIES PROFESSOR * Whit Wilson, PT - 09/10/2024 2:09 PM CST [facility] Physical Medicine and Rehabilitation Physical Therapy Initial Evaluation Note Patient: Frandy Alvares Med Record Number: [id number] Date of : 1935 Age: [age] year old PPE worn by staff: gloves PPE worn by patient: gown - patient, clean;socks - clean CoEval with OT due to pt unknown tolerance and assist level. Recommendations: Discharge PT Discharge Recommendations: Patient would benefit from multidisciplinary therapy This recommendation is made due to ongoing PT functional needs: address care for self in the home;address functional deficits In addition to the 1:1 evaluation of the patient, additional eval time was spent completing the chart review prior to the assessment, completing the multidisciplinary plan of care and education plan post evaluation and communicating results of the eval to other treatment team members. Nurse and Occupational Therapist contacted regarding patient status and/or discharge plan. 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 Multiple benign nevi of upper and lower extremities, and trunk Trauma Impaired mobility and ADLs Altered mental status Fall SDH (subdural hematoma) (HCC) Fall, subsequent encounter Contusion of right lung, initial encounter Closed fracture of one rib of right side, initial encounter Dementia (HCC) Delirium Observed seizure-like activity (HCC) Severe protein-calorie malnutrition (HCC) Orthostatic hypotension Suspected deep vein thrombosis (DVT) Past Medical History: Diagnosis Date Actinic keratosis Dementia (HCC) Squamous cell carcinoma SUBJECTIVE: Subjective: Pt agreeable to therapy evaluation. Pt presents confused and somewhat drowsy, but pleasant. Home Situation: Type of Residence: Private Residence Living arrangement: Alone;Other (Comment) (Caretakers that rotate and stay with him so that 24 hr assistance provided) Steps to Enter: 3 Home Structure: One Story Primary Bedroom: First Floor Primary Bathroom: First Floor Bathroom : Walk in Shower Equipment at Home: Bathroom Equipment;Walker;Wheelchair Prior Level of Functioning: Prior Level of Function Mobility: Ambulate-In Home ;With Assistive Device Have Help at Home?: Yes, there is help at home now Who assists you at home?: Home Health;Friends/Family (son and caretakers) How often is assistance provided?: 24 hrs/day Level of Help Sufficient?: Yes Oxygen at Home: No Hearing Exceptions: ([facility]) Who manages medications?: Family/caretakers Pain Assessment: Pain Assessment Pain Scale/Observation: (When asked if pt had pain he said yes but unable to tell therapist any additional information as in location, level, or type) OBJECTIVE: At start of therapy session, patient found in bed, with no alarm, and caregiver bedside . General Appearance: elderly male in NAD LDAs: Floor: IVs: Peripheral line Edema: no edema noted in bilateral lower extremities Observations: Pt denied dizziness, chest pain, SOB, and nausea during activity or position changes.In NAD throughout evaluation. Mental Status/Cognition: Level of Consciousness-Adult: Responds to voice Orientation Level: Disoriented to Time;Disoriented to Situation;Disoriented to Place Cognition: Impulsive;Confused ROM: RLE: AROM WFL LLE: AROM WFL Strength: RLE:WFL LLE: WFL Tone: RLE: no abnormal tone noted LLE: no abnormal tone noted Coordination: BLE: Unable to formally assess 2/2 pt's cognition. Pt able to ambulate with reciprocal pattern. Sensation: BLE: Unable to formally assess 2/2 -pt's cognition. Mobility: A gait belt and non-slip socks were used for all out of bed activity this date. Bed Mobility: Supine to Sit: Minimal Assistance with HOB in semi-fowlers position Sit to Supine: Minimal Assistance Transfers: Sit to Stand: Minimal Assistance Stand to Sit: Minimal Assistance Type of Transfer: Other (Comment) (from ambulation w/ WW and Min A for safety) Transfer Device: Walker-2 Wheeled;Gait belt Gait: Weight Bearing Status: (No WB restrictions noted) Distance Ambulated (ft): 60 FEET Ambulation: Assistive Device: Walker-2 Wheeled;Gait Belt Ambulation: Level of Assistance: Minimum Assistance Ambulation: Gait Deviations: Push Off - Decreased;Heel Strike - Decreased Balance: Balance Scales/Tests Used: Sitting: Static/Dynamic;Standing: Static/Dynamic Sitting - Static: Fair + Sitting - Dynamic: Fair + Standing - Static: Fair -;With Both Upper Extremity's Support Standing - Dynamic: Fair -;With Both Upper Extremity's Support ACTIVITY TOLERANCE: Patient's activity tolerance: fair TREATMENT/INTERVENTIONS: evaluation, bed mobility training, transfer training, and gait training AM-PAC 6 Clicks Mobility Raw Score:: 17 EDUCATION: While performing PT, Patient ad Pt's Son were instructed in:functional mobility training, safety awareness/fall precautions , use of adaptive equipment, discharge planning, use of call light Presented to patient who demonstrates Questionable understanding of instructions given. Patient's son verbalized good understanding of pt's therapy evaluation. INFORMED CONSENT TO TREATMENT: Plan of care including recommended therapy, goals and frequency, discussed with patient who understands and agrees to proceed. ASSESSMENT: Patient would benefit from additional Physical Therapy sessions to achieve the following functionalgoals to enhance independence. Short Term Goals: Goal Formation With family and Patient unable to participate in goal formulation Patient will perform bed mobility independently Patient will transfer bed to/from chair with stand by assist Patient will ambulate 50 feet with stand by assist Patient will ascend/descent 3 steps with minimal assist [facility]ci Goal(s): Patient to discharge to appropriate next level of inpatient care. Equipment Issued: gait belt Plan: Gait training Transfer training Stair training Assistive device training Endurance training Bed mobility training Balance training Energy conservation techniques Safety awareness Home exercise program training wheelchair mobility If patient is discharged from the facility, this note serves as a discharge summary if further physical therapy visits did not occur. Refer to filed flowsheet for further details. Following therapy session, patient left in bed, with call light within reach, with family in room, with Ashutosh LUNDY aware, with therapy cues visible on white board, with fall mats in place, all lines/tubes intact, pt's son bedside . GIOUS STUDIES PROFESSOR * Ashutosh Sr RN - 09/10/2024 12:00 PM CST Bilateral restraints removed, sitter present at beside, son in to visit. Pt appears calm and relaxed not pulling at IV lines or tubes. No s/s acute distress noted at this time, will continue to monitor. GIOUS STUDIES PROFESSOR * Amanda Dacosta MD - 09/10/2024 8:59 AM CST U HOSPITALIST PROGRESS NOTE Age/Sex: 89 year old male Hospital Day: 3 Admission Date: 09/07/2024 Subjective: Was agitated overnight, resting why this morning. Sitter on the bedside Hemodynamically remained stable. Objective: Patient Vitals for the past 24 hrs: Temp Pulse BP SpO2 09/09/24 1526 99 ??F (37.2 ??C) 75 140/60 100 % Physical exam: General: alert, cooperative, no distress HEENT: NC, AT, oropharynx clear, EOMI Lungs: breath sounds normal; no rales, wheezes or rhonchi, breathing comfortably Heart: regular rate and rhythm, no murmurs/rubs/gallops Abdomen: soft, non-tender, non-distended, normal bowel sounds, no rebound or guarding Skin: No rashes noted Extremities: no edema MSK: Strength grossly symmetric, no obvious deformities Neuro: Alert, non-focal Recent lab reviewed as below: Recent Labs Component Name 09/09/24214809/08/24200609/08/24 0545 WBC 9.3 9.1 9.5 Recent Labs Component Name 09/09/24214809/08/24200609/08/24 0545 POTASSIUM 4.3 4.2 4.3 CO2 22 23 25 BUN 18 19 25 CREATININE 1.02 0.83 0.87 GLUCOSE 135* 112* 92 CALCIUM 8.2* 8.4 8.6 Recent Labs Component Name 09/10/24 0610 09/09/24 1040 09/08/24 0545 INR 1.1 1.1 1.0 No results found for: CK , TROPONIN , XGEWQKYS5H , CKMBRI No results found for: TSH Medications: 0.9% NaCl, 3 mL, q8h ceFAZolin, 2 g, q8h enoxaparin, 1 mg/kg, q12h escitalopram, 10 mg, QDAY folic acid, 1 mg, QDAY levETIRAcetam, 500 mg, BID polyethylene glycol 3350, 17 g, QDAY QUEtiapine, 12.5 mg, QDAY And QUEtiapine, 25 mg, AT BEDTIME sennosides, 8.6 mg, QDAY vitamin D3, 1,000 Units, QDAY Problem list: Suspected deep vein thrombosis (DVT) (POA: Unknown) Assessment and Plan: Acute metabolic encephalopathy in the setting of MSSA UTI Urine cx + MSSA Afebrile, wo leukocytosis -Started Cefazolin on 09/08. -Pending blood cx. superficial venous thrombosis of the left cephalic vein. No evidence of deep thrombosis -was started therapeutic Lovenox empirically although he is low to intermediate risk of PT we will continue oral -Warm compress to the area, elevate limb. -Neurovascular checks q.4 hours. Chronic subdural hematomas-stable -MRI 09/05/24: bilateral frontal convexity subdural collections 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 -Baseline neurologic exam is completely intact. -Monitor closely for worsening. -CTH and NSGY consult for any change in exam Chronic normocytic anemia-stable Iron studies to repeated outpatient Vit B12 levels-wnl Folate-low -Started folate suppl. Seizure disorder Concern for a seizure on 09/08 - EEG during last admission consistent with seizure disorder - Continue home Keppra - F/u keppra level. - F/u EEG Dementia with behavioral disturbance-stable -Continue quetiapine b.i.d. -Delirium precautions. -Fall precautions. -Continue home Lexapro Bowel regimen -Cont mimi Miralax and Senna. Diet: Regular DVT prophylaxis: Therapeutic Lovenox Code status: DNR Disposition: Pending medical clearance and PTOT alda Dacosta MD [facility] Medicine 09/10/2024 READMISSION RISK SCORE at discharge was 18.5 (09/10/2024 8:00 AM) GIOUS STUDIES PROFESSOR * Freddie Knowles RN - 09/10/2024 5:29 AM CST Patient continues to be oriented only to himself throughout the night. Patient is in bilateral softwrist restraints d/t the patient being impulsive and removing IV's. Patient removed 2 22# IV,s fromhis right hand while in restraints this shift. Patient has a home health aid sitting at the bedsidewith him. Patient was given Haldol at 2020 for his agitation. MD Whitehead called for continues agitation, and 0.5 of ativan was prescribed and given. GIOUS STUDIES PROFESSOR * Whit Rock OT - 09/09/2024 3:35 PM CST [facility] Department of Physical Medicine & Rehabilitation Progress Note Patient: Frandy Alvares [facility] Record Number: [id number] Date of : 1935 Age: [age] year old 09/09/24 0851 Missed Visit Missed Visit Other (Comment) Pt is in 4-point restraints at this time and is very confused per sitter/CP and RN. Pt currently not very redirectable and concern for escalating agitation and possibility of pt pulling off continuous EEG leads. OPT will continue to follow and attempt to see pt at later time as pt is appropriate for therapy. GIOUS STUDIES PROFESSOR * Whit Wilson, PT - 09/09/2024 8:52 AM CST [facility] Department of Physical Medicine & Rehabilitation Progress Note Patient: Frandy Alvares [facility] Record Number: [id number] Date of : 1935 Age: [age] year old 09/09/24 0852 Missed Visit Missed Visit Other (Comment) Pt is in 4-point restraints at this time and is very confused per sitter/CP and RN. Pt currently not very redirectable and concern for escalating agitation and possibility of pt pulling off continuous EEG leads. PT will continue to follow and attempt to see pt at later time as pt is appropriate forOOB mobility & participating in skilled PT evaluation. GIOUS STUDIES PROFESSOR * Galina Hodge RN - 09/09/2024 8:48 AM CST 09/09/24 0847 CM Discharge Planning Living arrangement Alone (with 24 hour care) Support Systems Children;Private duty care Prior to Admission Physical Limitations: Ambulation with use of DME Prior to Admission Requires assistance with: Mobility;Dressing;Hygiene;Housekeeping;Meal Preparation;Medication Administration;Shopping Prior Level of [facility] Primary Bedroom First Floor Expected Discharge Disposition Services Transportation Transportation to Medical Appointments Family Does the patient need discharge transport arranged? No Care Coordination Initial Assessment Expected Discharge Date: Expected Discharge Disposition: Home Health Services Transportation at Discharge: Prior Level of Care: Home Health Care Prior to Admit Provider: Comments: CM attempted to met with patient , he was hooked up to an EEG monitor and sitter present in the room. Patient is A&O 1 at this time. EMILY called natalie resendiz who states he has set up 24 hour care for this patient . Patient has his own sitters at home and at the hospital. CM will work with family about the discharge plan. Lives with: Alone;Other (Comment) (Caretakers that rotate and stay with him so that 24 hr assistance provided) Physical Limitations: Ambulation with use of DME Requires Assistance With: Mobility;Dressing;Hygiene;Housekeeping;Meal Preparation;Medication Administration;Shopping Preferred Pharmacy: [facility] [phone] [place] [phone] [place] [phone] READMISSION RISK SCORE is 19 at 8:48 AM 09/11/2024. Met with patient and son Family Support (name and phone): Extended Emergency Contact Information Primary Emergency Contact: Shayy Hay Mobile Relation: Friend Secondary Emergency Contact: DiaFrandy Mobile Relation: Son Patient or client relations representative requests care coordination reach out to family or caregiver listed above regarding discharge planning and at time of discharge? No Actual Level of Care/Dispostion Details Durable Medical Equipment Planning Equipment at Home: Bathroom Equipment;Walker;Wheelchair Type of Bathroom Equipment: Shower Chair Senior Java Ui Developer Referral: No Will continue to follow. For any questions or needs please contact: Wood Tank Erector/Social Work Name/Phone number: Galina Hodge RN GIOUS STUDIES PROFESSOR * Baljit Pratt MD - 09/09/2024 7:57 AM CST Images from the original note were not included. .Hospitalist Progress Note Frandy Alvares is a 89 year old male with medical history of dementia, recurrent falls with chronicsubdural hematomas and recent diagnosis of seizure disorder, who presented to the ED with left upper extremity swelling. Patient was suspected to have LUE VTE and was subsequently started on therapeutic Lovenox. He was also found to have MSSA UTI. Subjective: Patient was seen and evaluated this a.m.. giver was at bedside. States that pt is oriented and conversational at baseline. Pt continues to be confused, not following command, was shivering during the encounter. Has warm peripheries, Temp was wnl so as other vital signs. Objective Blood pressure 121/57, pulse 71, temperature 98 ??F (36.7 ??C), temperature source Oral, resp. rate14, height 1.702 m (5' 7 ), weight 68 kg (150 lb), SpO2 97%. Gen: awake, confused, shivering. HEENT: NCAT, EOMI, MMM RESP: Clear to auscultation CV: Nl S1 and S2 No gallops. GI: Soft and non tender. +BS, no HSM EXT: Left upper extremity swelling, erythema and tenderness. MAR reviewed Relevant labs reviewed Lab Results-Last 24 Hours Procedure Component Value Units Date/Time PT-INR H [[id number]] Updated: 09/09/24654 Order Status: Sent Specimen: Blood LEVETIRACETAM LEVEL [[id number]] Collected: 09/09/24642 Order Status: Sent Specimen: Blood Updated: 09/09/24 0654 GLUCOSE - POINT OF CARE [[id number]] (Abnormal) Collected: 09/08/24 1625 Order Status: Completed Specimen: Blood Updated: 09/09/24 0031 Glucose WB/POC 107 mg/dL Specimen Type Cap Fingerstick FOLATE [[id number]] (Abnormal) Collected: 09/08/242006 Order Status: Completed Specimen: Blood Updated: 09/08/245 Folate 5.8 ng/mL VITAMIN B12 [[id number]] (Normal) Collected: 09/08/242006 Order Status: Completed Specimen: Blood Updated: 09/08/242254 Vitamin B12 603 pg/mL IRON + TRANSFERRIN PANEL [[id number]] (Abnormal) Collected: 09/08/242006 Order Status: Completed Specimen: Blood Updated: 09/08/24 2222 Iron 48 ug/dL Transferrin 144 mg/dL Transferrin Saturation % 27 % TIBC Calculated 180 ug/dL RENAL FUNCTION PANEL [[id number]] (Abnormal) Collected: 09/08/242006 Order Status: Completed Specimen: Blood Updated: 09/08/24 2154 BUN 19 mg/dL Creatinine 0.83 mg/dL Sodium 138 mmol/L Potassium 4.2 mmol/L Chloride 106 mmol/L CO2 23 mmol/L Glucose 112 mg/dL Albumin 2.6 g/dL Calcium 8.4 mg/dL Phosphorus 3.4 mg/dL Anion Gap 9 BUN/Creatinine Ratio 23 Osmolality Calculated 289 mOsm/kg eGFR by CKD-EPI 84 mL/min/1.73 m2 CBC W/O DIFFERENTIAL [[id number]] (Abnormal) Collected: 09/08/242006 Order Status: Completed Specimen: Blood Updated: 09/08/242118 WBC 9.1 x10E9/L RBC Count 3.01 x10E12/L Hemoglobin 9.3 g/dL Hematocrit 28.7 % MCV 95.3 fL MCH 30.9 pg MCHC 32.4 g/dL RDW-CV 14.1 % Platelet Count 209 x10E9/L MPV 10.6 fL Relevant imaging reviewed XR Humerus Left 2Vw or More Result Date: 09/07/2024 IMPRESSION: No acute humeral fracture identified. Report dictated by Dante Mcclain MD, (residential concierge). I, Jason Mina MD have personally reviewed and interpreted this examination/study.> Interpreting Provider: Jason Mina MD on 09/07/2024 9:40 PM Current Meds 0.9% NaCl 3 mL Intracatheter q8h ceFAZolin 2 g Intravenous q8h enoxaparin 1 mg/kg Subcutaneous q12h escitalopram 10 mg Oral QDAY levETIRAcetam 500 mg Oral BID polyethylene glycol 3350 17 g Oral QDAY QUEtiapine 12.5 mg Oral QDAY And QUEtiapine 25 mg Oral AT BEDTIME sennosides 8.6 mg Oral QDAY vitamin D3 1,000 Units Oral QDAY Assessment/Plan: Suspected deep vein thrombosis (DVT) (POA: Unknown) Acute metabolic encephalopathy in the setting of MSSA UTI Urine cx + MSSA Afebrile, wo leukocytosis -Started Cefazolin on 09/08. -Pending blood cx. Suspected VTE, present at the time of inpatient admission -Bedside ultrasound performed by ED physician and physical exam with supporting history. Uncertain if this is superficial or deep venous thrombosis. -Continue therapeutic Lovenox -Warm compress to the area, elevate limb. -Neurovascular checks q.4 hours. -F/u US Duplex official read Chronic subdural hematomas-stable -MRI 09/05/24: bilateral frontal convexity subdural collections 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 -Baseline neurologic exam is completely intact. -Monitor closely for worsening. -CTH and NSGY consult for any change in exam Chronic normocytic anemia-stable Iron studies to repeated outpatient Vit B12 levels-wnl Folate-low -Started folate suppl. Seizure disorder Concern for a seizure on 09/08 - EEG during last admission consistent with seizure disorder - Continue home Keppra - F/u keppra level. - F/u EEG Dementia with behavioral disturbance-stable -Continue quetiapine b.i.d. -Delirium precautions. -Fall precautions. -Continue home Lexapro Bowel regimen -Cont mimi Miralax and Senna. Diet: Regular DVT prophylaxis: Therapeutic Lovenox Code status: DNR Disposition: Pending medical clearance and PTOT alda Pratt MD [facility] Medicine 09/09/2024 Baljit Pratt MD [facility] Medicine Non-urgent messages may be sent through [employer] Secure Chat GIOUS STUDIES PROFESSOR * Jono An RN - 09/08/2024 11:35 PM CST Pt with hx dementia and sundowners is now trying to get out of bed, has EEG leads pulled even with personal sitter and CP at bedside. GIOUS STUDIES PROFESSOR * Ashutosh Sr RN - 09/08/2024 4:19 PM CST in to see patient at this time. GIOUS STUDIES PROFESSOR * Ashutosh Sr RN - 09/08/2024 4:06 PM CST Patient care provider and charge nurse Goyal in with pt, informed this nurse pt had, what appeared to be seizure event while walking from bathroom. Pt stopped in his tracks, staring ahead unresponsive to verbal or tactile stimuli. After a moment pt became responsive and was helped to the bed withassist of 2. VS 140/97 66 16 100% to room air, pt able to answer questions appropriately and followcommands. Patient states; I feel wonderful personal nurse care manager informed this nurse that pt appearsto be responding at his baseline at this time. Charge nurse Goyal called and made MD aware informed that nurse will be in to see patient. GIOUS STUDIES PROFESSOR * Ashutosh Sr RN - 09/08/2024 1:49 PM CST Pt transferred to room #6630 via bed with assist of 2, personal nurse care manager present at bedside. Pt lying in bed resting quietly appears to be calm no agitation noted, able to follow commands and make needs known. Bilateral wrist and ankle restraints removed, bed alarm on will continue to monitor. GIOUS STUDIES PROFESSOR * Ashutosh Sr RN - 09/08/2024 1:24 PM CST Pt up to urinal change in urine from clear yellow this a.m to blood tinged urine, small clots visible; pt also experiencing urinary frequency. MD notified regarding pt situation, will continue to monitor. GIOUS STUDIES PROFESSOR * Lyn López OT - 09/08/2024 10:24 AM CST [facility] Department of Physical Medicine & Rehabilitation Progress Note Patient: Frandy Alvares [facility] Record Number: [id number] Date of : 1935 Age: [age] year old 09/08/24 1024 Missed Visit Missed Visit Other (Comment) OT orders received and chart reviewed. Pt currently in 4 point restraints and minimally able to rouse as pt received Haldol and Ativan last night 2/2 agitation. Patient unable to actively participatefor OT eval at this time. Caregiver at beside and was able to provide information about PLOF. Will c ontinue to follow GIOUS STUDIES PROFESSOR * Ashutosh Sr RN - 09/08/2024 9:58 AM CST Pt private healthcare management from [facility] [place] here to sit with pt informed this nurse company will provide staff to be with pt during the duration of his stay. GIOUS STUDIES PROFESSOR * Jayde Spears PT - 09/08/2024 9:25 AM CST [facility] Department of Physical Medicine & Rehabilitation Progress Note Patient: Frandy Alvares Med Record Number: [id number] Date of : 1935 Age: [age] year old 09/08/24 0925 Missed Visit Missed Visit Other (Comment) PT orders received and chart reviewed; attempted PT evaluation; patient sleeping soundly in bed, sitter and RN at bedside; patient in 4 point restraints. Attempted to awaken patient; per RN and sitter, patient has been sleeping all morning- required haldol and ativan last night, and 4 point restraints due to agitation. Patient unable to actively participate for PT eval at this time. Will continueto follow. GIOUS STUDIES PROFESSOR * Ashutosh Sr RN - 09/08/2024 8:00 AM CST Pt lying in bed resting appears to be restless urinal offer pt able to void, sitter present at bedside restraints on as ordered and assess no s/s redness or irritation noted. GIOUS STUDIES PROFESSOR * Baljit Pratt MD - 09/08/2024 7:23 AM CST Images from the original note were not included. .Hospitalist Progress Note Frandy Alvares is a 89 year old male with medical history of dementia, recurrent falls with chronicsubdural hematomas and recent diagnosis of seizure disorder, who presented to the ED with left upper extremity swelling. Patient was suspected to have LUE VTE and was subsequently started on therapeutic Lovenox. Subjective: Patient was seen and evaluated this a.m.. Had a sitter as apparently he was agitated overnight and violent. It was noted that patient has bilateral ankle restraints. But at the time of my evaluation patient was lying calmly in bed Objective Blood pressure 121/57, pulse 71, temperature 98 ??F (36.7 ??C), temperature source Oral, resp. rate14, height 1.702 m (5' 7 ), weight 68 kg (150 lb), SpO2 97%. Gen: AA, unable to assess orientation as patient was drowsy, NAD HEENT: NCAT, EOMI, MMM RESP: Clear to auscultation CV: Nl S1 and S2 No gallops. GI: Soft and non tender. +BS, no HSM EXT: Left upper extremity swelling, erythema and tenderness. MAR reviewed Relevant labs reviewed Lab Results-Last 24 Hours Procedure Component Value Units Date/Time BASIC METABOLIC PANEL (CALCIUM TOTAL) [[id number]] (Abnormal) Collected: 09/08/24544 Order Status: Completed Specimen: Blood Updated: 09/08/24655 BUN 25 mg/dL Creatinine 0.87 mg/dL Sodium 139 mmol/L Potassium 4.3 mmol/L Chloride 106 mmol/L CO2 25 mmol/L Glucose 92 mg/dL Calcium 8.6 mg/dL Anion Gap 8 BUN/Creatinine Ratio 29 Osmolality Calculated 292 mOsm/kg eGFR by CKD-EPI 83 mL/min/1.73 m2 MAGNESIUM BLOOD [[id number]] (Normal) Collected: 09/08/24544 Order Status: Completed Specimen: Blood Updated: 09/08/24655 Magnesium 1.8 mg/dL PHOSPHORUS BLOOD [[id number]] (Normal) Collected: 09/08/24544 Order Status: Completed Specimen: Blood Updated: 09/08/2456 Phosphorus 3.2 mg/dL CBC W/O DIFFERENTIAL [[id number]] (Abnormal) Collected: 09/08/24544 Order Status: Completed Specimen: Blood Updated: 09/08/2454 WBC 9.5 x10E9/L RBC Count 3.27 x10E12/L Hemoglobin 10.1 g/dL Hematocrit 30.6 % MCV 93.6 fL MCH 30.9 pg MCHC 33.0 g/dL RDW-CV 13.9 % Platelet Count 216 x10E9/L MPV 10.1 fL PT-INR [facility] [[id number]] (Normal) Collected: 09/08/24544 Order Status: Completed Specimen: Blood Updated: 09/08/2451 PT 13.2 Seconds INR 1.0 Comment: The suggested therapeutic range for standard coumadin (warfarin) therapy is an INR of 2.0-3.0. For high-risk patients (Mechanical Mitral Valve Prosthesis, etc.), the suggested prophylactic therapeutic range is an INR of 2.5-3.5. URINE MICROSCOPIC ONLY REFLEX TO CULTURE [[id number]] (Abnormal) Collected: 09/07/241836 Order Status: Completed Specimen: Urine Clean Catch Updated: 09/07/241925 Reflex Status Culture to follow WBC UA 11-20 /HPF Bacteria UA Trace /HPF Squamous Epithelial Cells UA None Seen /HPF Narrative: URINALYSIS REFLEX MICROSCOPIC REFLEX CULTURE [[id number]] (Abnormal) Collected: 09/07/241836 Order Status: Completed Specimen: Urine Clean Catch Updated: 09/07/24 185 Color UA Yellow Clarity UA Clear Specific [place] UA 1.009 pH UA 6.0 pH Protein UA Negative Glucose UA Negative Ketone UA Negative Bilirubin UA Negative Blood UA Negative Nitrite UA Positive Leukocyte Esterase 2+ Urobilinogen UA Negative mg/dL Narrative: D-DIMER [[id number]] (Abnormal) Collected: 09/07/241713 Order Status: Completed Specimen: Blood Updated: 09/07/241834 D-Dimer Quantitative 1.16 mcg/mL FEU Comment: In the absence of clinical symptoms, a value less than or equal to 0.5 mcg/mL FEU significantly decreases the probability of PE/DVT (negative predictive value >95%). 1 mcg/mL FEU = 1 Fibrinogen Equivalent Unit (approximates 0.5 mcg/ml of D-Dimer). ISTH DIAGNOSTIC SCORING SYSTEM FOR DIC Score 0 1 2 3 Platelet Count(x10^3/uL) > 100 < 100 < 50 N/A PT Prolongation above upper limit of normal 0-3 3-6 > 6 N/A range (seconds) Fibrinogen (mg/dL) > 100 < 100 N/A N/A D-Dimer (mcg/mL FEU) < 0.50 N/A 0.50-5.0 > 5 Calculate Cumulative Score: > or = 5 :compatible with overt DIC < 5 :suggestive for non-overt DIC N/A = Non applicable Reference: Br. J. Haematol. 145:24-33,2009. CBC W AUTO DIFFERENTIAL [[id number]] Order Status: Canceled Specimen: Blood COMPREHENSIVE METABOLIC PANEL [[id number]] (Abnormal) Collected: 09/07/24 1714 Order Status: Completed Specimen: Blood Updated: 09/07/247 BUN 26 mg/dL Creatinine 1.00 mg/dL Sodium 140 mmol/L Potassium 4.4 mmol/L Chloride 105 mmol/L CO2 23 mmol/L Glucose 91 mg/dL Calcium 8.8 mg/dL Protein Total 6.4 g/dL Albumin 3.0 g/dL Bilirubin Total 0.3 mg/dL Alkaline Phosphatase 134 U/L ALT 30 U/L AST 32 U/L Anion Gap 12 BUN/Creatinine Ratio 26 Osmolality Calculated 294 mOsm/kg Albumin/Globulin Ratio 0.9 eGFR by CKD-EPI 72 mL/min/1.73 m2 C-REACTIVE PROTEIN [[id number]] (Abnormal) Collected: 09/07/241713 Order Status: Completed Specimen: Blood Updated: 09/07/24 175 C-Reactive Protein 3.8 mg/dL PT-INR [facility] [[id number]] (Normal) Collected: 09/07/241713 Order Status: Completed Specimen: Blood Updated: 09/07/24 174 PT 12.9 Seconds INR 1.0 Comment: The suggested therapeutic range for standard coumadin (warfarin) therapy is an INR of 2.0-3.0. For high-risk patients (Mechanical Mitral Valve Prosthesis, etc.), the suggested prophylactic therapeutic range is an INR of 2.5-3.5. PTT [facility] [[id number]] (Normal) Collected: 09/07/241713 Order Status: Completed Specimen: Blood Updated: 09/07/24 174 APTT 30.2 Seconds Comment: Suggested therapeutic range for full dose I.V. unfractionated heparin therapy for venous thromboembolism is 71 to 109 seconds. ERYTHROCYTE SEDIMENTATION RATE [[id number]] (Abnormal) Collected: 09/07/241713 Order Status: Completed Specimen: Blood Updated: 09/07/24 174 Erythrocyte Sedimentation Rate Westergren 55 MM/HR CBC W AUTO DIFFERENTIAL [[id number]] (Abnormal) Collected: 09/07/241713 Order Status: Completed Specimen: Blood Updated: 09/07/24 172 WBC 10.0 x10E9/L RBC Count 3.29 x10E12/L Hemoglobin 10.3 g/dL Hematocrit 30.8 % MCV 93.6 fL MCH 31.3 pg MCHC 33.4 g/dL RDW-CV 13.9 % Platelet Count 212 x10E9/L MPV 10.5 fL Neutrophil % 75.9 % Lymphocyte % 12.5 % Monocyte % 8.0 % Eosinophil % 2.5 % Basophil % 0.3 % Immature Granulocytes % 0.8 % Neutrophil Absolute 7.59 x10E9/L Lymphocyte Absolute 1.25 x10E9/L Monocyte Absolute 0.80 x10E9/L Eosinophil Absolute 0.25 x10E9/L Basophil Absolute 0.03 x10E9/L Relevant imaging reviewed XR Humerus Left 2Vw or More Result Date: 09/07/2024 IMPRESSION: No acute humeral fracture identified. Report dictated by Dante Mcclain MD, MD (residential concierge). I, Jason Mina MD have personally reviewed and interpreted this examination/study.> Interpreting Provider: Jason Mina MD on 09/07/2024 9:40 PM Current Meds 0.9% NaCl 3 mL Intracatheter q8h enoxaparin 1 mg/kg Subcutaneous q12h escitalopram 10 mg Oral QDAY levETIRAcetam 500 mg Oral BID polyethylene glycol 3350 17 g Oral QDAY QUEtiapine 12.5 mg Oral QDAY And QUEtiapine 25 mg Oral AT BEDTIME sennosides 8.6 mg Oral QDAY vitamin D3 1,000 Units Oral QDAY Assessment/Plan: Suspected deep vein thrombosis (DVT) (POA: Unknown) Suspected VTE, present at the time of inpatient admission -Bedside ultrasound performed by ED physician and physical exam with supporting history. Uncertain if this is superficial or deep venous thrombosis. -Continue therapeutic Lovenox -Warm compress to the area, elevate limb. -Neurovascular checks q.4 hours. -F/u US Duplex. Chronic subdural hematomas-stable -MRI 09/05/24: bilateral frontal convexity subdural collections 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 -Baseline neurologic exam is completely intact. -Monitor closely for worsening. -CTH and NSGY consult for any change in exam Chronic normocytic anemia-stable -Will order iron studies, folate, and Vit B12 levels. Seizure disorder- stable - EEG during last admission consistent with seizure disorder - Continue home Keppra Dementia with behavioral disturbance-stable -Continue quetiapine b.i.d. -Delirium precautions. -Fall precautions. -Continue home Lexapro Bowel regimen -Cont mimi Miralax and Senna. Diet: Regular DVT prophylaxis: Therapeutic Lovenox Code status: DNR Disposition: Pending medical clearance and PTOT alda Pratt MD Hospital Medicine 09/08/2024 Baljit Pratt MD Hospital Medicine Non-urgent messages may be sent through [employer] GIOUS STUDIES PROFESSOR * Peyton Mayer RN - 09/07/2024 10:16 PM CST 2148 : Report given to Marck LUNDY , Alysa 6N GIOUS STUDIES PROFESSOR documented in this encounter H&P Notes * Issa Taveras MD - 09/07/2024 6:32 PM CST Images from the original note were not included. [facility] Internal Medicine History and Physical Name: Frandy Alvares Room/Bed: [facility] : 1935 89 year old PCP: Bao Pierre MD Chief Complaint Chief Complaint: left arm swelling History of Present Illness Frandy Alvares is a 89 year old male with a past medical history significant for dementia, chronic subdural hematomas who presents to the hospital with left arm swelling. Patient was recently admitted to this institution August 27 through September 06 for falls and altered mental status. His workup was notable for chronic subdural hematomas for which Neurosurgery was consulted and no intervention was needed. EEG obtained showed a tendency toward seizure and he was loaded with Keppra. He was discharged to home. During that hospitalization a PIV site in the leftarm became red and swollen with concern for superficial phlebitis. Once he got home the redness andswelling of that lesion increase and he reported pain in the arm. He was taken to an urgent care byhis family who recommended evaluation in the emergency room. On arrival he was afebrile and hemodynamically stable. Ultrasound obtained by the ER physician was concerning for a non compressible vein in the left arm consistent with VTE. He was started on therapeutic Lovenox and admitted to Medicine. On interview he is pleasantly confused however can not meaningfully participate in conversation. Family caregiver at bedside provides history. She reports aside from the symptoms listed above he has been in his normal state health. His confusion is his baseline. She denies nausea, vomiting, fevers,chills, other reported somatic pains. She does express weakness however this is unchanged from his hospitalization I reviewed outside records which showed: N/A Review of Symptoms A 12 point review of systems was completed and was negative aside from that listed in HPI history obtained by caregiver Medical and Surgical History Allergies Allergen Reactions Epinephrine Dizziness Passed out for 4 hours in childhood Past Medical History: Diagnosis Date Actinic keratosis Dementia (HCC) Squamous cell carcinoma Past Surgical History: Procedure Laterality Date Back Surgery Cataract Removal Bilateral Rotator Cuff Repair Current Outpatient Medications Medication Instructions escitalopram (LEXAPRO) 10 mg, Oral, DAILY finasteride (PROSCAR) 5 mg, Oral, DAILY levETIRAcetam (KEPPRA) 500 mg, Oral, 2 TIMES DAILY Multiple Vitamins-Minerals (HAIR SKIN AND NAILS FORMULA) TABS 2 tablets, Oral, DAILY Nutritional Supplements (Ensure Plus High Protein) LIQD 1 container, Oral, 3 TIMES DAILY polyethylene glycol 3350 (MIRALAX) 17 g, Oral, DAILY QUEtiapine (SEROquel) 25 MG tablet Take 1 (one) tablet by mouth every morning AND 0.5 (one-half) tablet at bedtime. May also take 0.5 (one-half) tablet 3 times daily as needed. Reasons: Agitation. sennosides (SENOKOT) 8.6 mg, Oral, DAILY Vitamin D, Cholecalciferol, 1000 UNITS CAPS 1 capsule, Oral, DAILY Social and Family History Social History Socioeconomic History Marital status: Spouse [...] of Health Financial Resource Strain: Low Risk (08/28/2024) Overall Financial Resource Strain (CARDIA) Difficulty of Paying Living Expenses: Not very hard Food Insecurity: No Food Insecurity (08/28/2024) Hunger Vital Sign Worried About Running Out of Food in the Last Year: Never true Ran Out of Food in the Last Year: Never true Transportation Needs: No Transportation Needs (08/28/2024) PRAPARE - Transportation Lack of Transportation (Medical): No Lack of Transportation (Non-Medical): No Stress: Patient Unable To Answer (08/28/2024) [employer] [place] - Occupational Stress Questionnaire Feeling of Stress : Patient unable to answer Housing Stability: Low Risk (08/28/2024) Housing Stability Vital Sign Unable to Pay for Housing in the Last Year: No Number of Times Moved in the Last Year: 1 Homeless in the Last Year: No Family History Problem Relation Name Age of Onset High Blood Pressure Mother CAD (Coronary Artery Disease) Mother Asthma Neg Hx Eczema Neg Hx Cancer - Other Neg Hx Cancer - Breast Neg Hx Cancer - Skin, Non Melanoma Neg Hx Cancer - Skin, Melanoma Neg Hx CVA Neg Hx Hemophilia Neg Hx Psoriasis Neg Hx Objective Recent Vitals: Temp: [98 ??F (36.7 ??C)] 98 ??F (36.7 ??C) Pulse: [71] 71 Resp: [14-15] 14 BP: (121-145)/(57-70) 121/57 Weight change: No intake or output data in the 24 hours ending 09/07/242109 Physical Exam: Gen: Alert, cooperative, in no acute distress HEENT: NC/AT, EOMI, no nasal drainage, oropharynx clear Neck: Supple with full ROM CV: Regular S1 & S2, without murmur, rub or gallop. Lungs: Clear to auscultation bilaterally, no crackles, no wheezes Abdomen: BS+, soft, non-tender, non-distended. No rebound/guarding Extremities: 2 raised nodules in the left bicep region, erythematous, nontender to palpation. Rest of arm nontender to palpation. Distal pulse intact Skin: Warm, dry, no rashes or wounds noted Neuro: Alert and pleasantly confused. No gross focal neurologic deficits noted. Cranial nerves 2-12intact strength 5/5 upper extremity and lower extremities bilaterally Psych: Mood and affect appropriate and within normal limits Laboratory Data Recent Labs Component Name 09/07/24171308/29/2444708/27/242304 WBC 10.0 9.7 10.7 HGB 10.3* 11.1* 10.9* HCT 30.8* 33.4* 31.9* PLTCOUNT 212 191 203 MCV 93.6 92.8 91.9 Recent Labs Component Name 09/07/24171308/27/242304 PT 12.9 14.1 INR 1.0 1.1 PTT 30.2 29.3 Recent Labs Component Name 09/07/24171308/29/2444708/27/24230407/03/15 0853 NA 140 137 136 138 POTASSIUM 4.4 3.7 4.5 - CL 105 104 107 102 CO2 23 24 23 25 BUN 26 22 25 20 CREATININE 1.00 0.91 1.07 1.05 GLU - - - 102* Recent Labs Component Name 09/07/24 1714 08/29/24 0448 08/27/24 2305 CALCIUM 8.8 8.6 8.6 PHOS - 2.5* - Recent Labs Component Name 09/07/24 1714 07/03/15 0853 PROT 6.4 6.9 ALB 3.0* 4.4 ALKPHOS 134 61 AST 32 21 ALT 30 28 TBILI 0.3 0.5 Recent Labs Component Name 08/27/24 2305 CKTOTAL 417* No results for input(s): LOW VELEZ in the last 37241 hours. Microbiology Results (Displays last 21 days for this encounter ONLY) Procedure Component Value - Date/Time CULTURE URINE [[id number]] Collected: 09/07/24 1837 Lab Status: In process Specimen: Urine Clean Catch Updated: 09/07/24 1926 SARS-COV-2 (COVID-19) RAPID [[id number]] (Normal) Collected: 08/28/24 1105 Lab Status: Final result Specimen: Microbiology from Nasopharyngeal Updated: 08/28/24 1149 COVID-19 PCR Not detected Narrative: The [employer] Xpert Xpress SARS-COV-2 has been authorized by the Food and Drug Administration (FDA) under an Emergency Use Authorization (EUA). This test has been validated in accordance with the FDA'sguidance document Policy for Diagnostic Testing in Laboratories [...] this EUA assay are available upon request. Imaging MRI Brain Wwo Contrast Result Date: 09/06/2024 IMPRESSION: 1.Redemonstration of bilateral frontal convexity subdural [...] Kalyani Cortez MD on 09/06/2024 7:49 AM EKG Interpretation: N/A Relevant labs and imaging data reviewed on Epic Assessment and Plan Suspected deep vein thrombosis (DVT) (POA: Unknown) Suspected VTE, present at the time of inpatient admission - At this time, the problem is Stable - Completed/Supporting Workup: Bedside ultrasound performed by ED physician and physical exam with supporting history. Uncertain if this is superficial or deep venous thrombosis. Abscess is other alternate diagnosis however given lack of leukocytosis, tachycardia, tenderness, drainage and this is less likely - Plan: Continue therapeutic Lovenox, obtain formal duplex ultrasound, warm compress to the area, elevate limb. Neurovascular checks q.4 hours - after superficial versus deep diagnosis is made discussions can be had with family about risks versus benefit of treatment Seizure disorder, present at the time of inpatient admission - At this time, the problem is Stable - Completed/Supporting Workup: EEG last admission - Plan: Continue Keppra Dementia with behavioral disturbance, present at the time of inpatient admission - At this time, the problem is Stable - Completed/Supporting Workup: Historic diagnosis with supporting behavioral disturbance during last admission and today in the emergency room - Plan: Continue quetiapine b.i.d.. Delirium precautions. Bowel regimen. Fall precautions. Continuehome Lexapro Chronic subdural hematomas, present at the time of inpatient admission - At this time, the problem is Stable - Completed/Supporting Workup: Imaging last admission - Plan: Baseline neurologic exam is completely intact. Monitor closely for worsening. CTH and NSGY consult for any change in exam Incidental findings requiring follow up: none Diet: DIET REGULAR DVT Prophylaxis: Lovenox 1mg/kg Goals of Care: Advance Care Planning Goals of Care Current active code status DNR - IF PULSELESS NO CPR, NO SHOCK POA/Surrogate Decision Maker: family [place] Candidate?: Yes, [place] Transfer Checklist: Electronically Signed By: Issa Taveras MD 09/07/2024 9:10 PM Date of Service: 09/07/24 The total time spent was 45 minutes performing chart preparation, review of data and visit with thepatient, [id number]: I addressed a chronic illness with severe exacerbation/progression/side effect and/or an acute illness/injury that poses a threat to life or bodily functions (as documented above), [id number]/[id number]: I reviewed the results of a unique test, ordered a unique test, or performed an assessment requiring an independent historian (as documented above), [id number]/11970: I discussed the management of the patient and/or the interpretation of a test with nursing staff, the care coordination team and all relevant consultants. , and 46040: The patient requires management of prescription drugs, decision regarding minor surgery, diagnosis and/or treatment significantly limited by social determinants of health GIOUS STUDIES PROFESSOR documented in this encounter Procedure Notes * Shaye Arroyo - 09/09/2024 9:58 AM CST EEG morning check, no vitals available, patient on network. Fix, T2, F8, C3, CZ, FP2, P3. All impedance are good, no need for more adjustment at this time. GIOUS STUDIES PROFESSOR * Camilo Cota MD - 09/09/2024 9:11 AM CST [facility] EEG SUMMARY REPORT Patient Name: Frandy Alvares EEG#: [id number] Recording Start Time: 21:38 PM 09/08/2024 Recording Stop Time: 17:28 PM 09/09/2024 Epoch Start Time: 21:38 PM 09/08/2024 Epoch Stop Time: 17:28 PM 09/09/2024 Clinical History: Frandy Alvares is a 89 year old male with altered mental status. This continuous video EEG monitoring is ordered to evaluate for seizures in the setting of altered mental status. Current medications Current Facility-Administered Medications Medication 0.9% NaCl injection 3 mL And 0.9% NaCl injection 1-10 mL ceFAZolin (Ancef) 2 g in sterile water (PF) 20 mL syringe enoxaparin (Lovenox) injection 70 mg escitalopram (Lexapro) tablet 10 mg levETIRAcetam (Keppra) tablet 500 mg polyethylene glycol 3350 (Miralax) packet 17 g QUEtiapine (SEROquel) tablet 12.5 mg And QUEtiapine (SEROquel) tablet 25 mg senna (Senokot) tablet 8.6 mg vitamin D3 (Cholecalciferol) 25 MCG (1000 UNITS) tablet 1,000 Units Description This is a continuous video EEG monitoring is 21-channels; consisting of 20 channels of EEG obtainedfrom electrodes placed on the scalp according to the international 10-20 system, T1 and T2 electrodes, and one channel of EKG monitoring. Background: Epoch Start Time: 21:38 PM 09/08/2024 Epoch Stop Time: 17:28 PM 09/09/2024 The background was symmetric. No well-developed posterior dominant rhythm was identified. Anterior-posterior gradient was occasionally present. The background was continuous and consisted of generalized moderately to poorly-organized theta activity of normal amplitude, with admixed delta frequency activity. Variability was present. Reactivity was present. Sleep architecture was identified in the forms of vertex waves and spindles. Generalized discharges of triphasic morphology was identified, with occasional left hemispheric predominance. EKG was observed throughout the recording. IMPRESSION This is an abnormal cEEG due to 1) generalized slowing and 2) triphasic waves. CLINICAL CORRELATION: Between 09/08/2024 to 09/09/2024, the study was suggestive of mild to moderate encephalopathy. Triphasic waves were identified, which were non-specific findings, commonly associated with metabolic abnormalities. Camilo Cota MD GIOUS STUDIES PROFESSOR * Terrnace Ya - 09/09/2024 3:52 AM CST Call to inform RN that pt was pulling electrodes off. GIOUS STUDIES PROFESSOR * Terrance Ya - 09/09/2024 2:30 AM CST Pt pulled 10 electrodes off, reapplied the electrodes, and RN applied restraints. GIOUS STUDIES PROFESSOR * Terrance Ya - 09/08/2024 10:19 PM CST MRI wires attached GIOUS STUDIES PROFESSOR documented in this encounter ED Notes * Escobar Sorto MD - 09/07/2024 5:17 PM CST ED ATTENDING NOTE History: Frandy Alvares is a 89 year old male with a past medical history of dementia, falls, presenting to the ED. Pt was at [facility] from 08/27 to 09/07 after a fall. Neurosurgery team gave no medical intervention for hygroma. Pt was Keppra. Pt also had quetiapine for delirium. Past Medical History: Diagnosis Date Actinic keratosis [...] of Health Financial Resource Strain: Low Risk (08/28/2024) Overall Financial Resource Strain (CARDIA) Difficulty of Paying Living Expenses: Not very hard Food Insecurity: No Food Insecurity (08/28/2024) Hunger Vital Sign Worried About Running Out of Food in the Last Year: Never true Ran Out of Food in the Last Year: Never true Transportation Needs: No Transportation Needs (08/28/2024) PRAPARE - Transportation Lack of Transportation (Medical): No Lack of Transportation (Non-Medical): No Stress: Patient Unable To Answer (08/28/2024) [employer] [place] [employer] - Occupational Stress Questionnaire Feeling of Stress : Patient unable to answer Housing Stability: Low Risk (08/28/2024) Housing Stability Vital Sign Unable to Pay for Housing in the Last Year: No Number of Times Moved in the Last Year: 1 Homeless in the Last Year: No Review of Systems Unable to perform ROS: Dementia Vitals: 09/07/24 1624 09/07/242030 BP: 145/70 121/57 Pulse: 71 Resp: 15 14 Temp: 98 ??F (36.7 ??C) SpO2: 98% 97% Weight: 68.4 kg (150 lb 12.7 oz) Height: 1.727 m (5' 7.99 ) Physical Exam Constitutional: Appearance: Normal appearance. HENT: Head: Normocephalic and atraumatic. Cardiovascular: Rate and Rhythm: Normal rate and regular rhythm. Pulses: Radial pulses are 2+ on the right side and 2+ on the left side. Dorsalis pedis pulses are 2+ on the right side and 2+ on the left side. Posterior tibial pulses are 2+ on the right side and 2+ on the left side. Pulmonary: Effort: Pulmonary effort is normal. Abdominal: Palpations: Abdomen is soft. Tenderness: There is no abdominal tenderness. Musculoskeletal: General: Normal range of motion. Left upper arm: Swelling present. Left hand: Normal range of motion. Comments: Firm mass present in LUE, non-tender, Neurological: Mental Status: He is alert. Comments: A&Ox1 MDM/Impression: Impression: Left arm swelling Plan: Look at labs, shared decision making on starting anticoagulation medications, and see PCP - LABS: Labs Reviewed CBC W AUTO DIFFERENTIAL - Abnormal; Notable for the following components: Result Value RBC Count 3.29 (*) Hemoglobin 10.3 (*) Hematocrit 30.8 (*) Neutrophil % 75.9 (*) Lymphocyte % 12.5 (*) Neutrophil Absolute 7.59 (*) All other components within normal limits COMPREHENSIVE METABOLIC PANEL - Abnormal; Notable for the following components: Albumin 3.0 (*) BUN/Creatinine Ratio 26 (*) Albumin/Globulin Ratio 0.9 (*) eGFR by CKD-EPI 72 (*) All other components within normal limits ERYTHROCYTE SEDIMENTATION RATE - Abnormal; Notable for the following components: Erythrocyte Sedimentation Rate Westergren 55 (*) All other components within normal limits C-REACTIVE PROTEIN - Abnormal; Notable for the following components: C-Reactive Protein 3.8 (*) All other components within normal limits URINALYSIS REFLEX MICROSCOPIC REFLEX CULTURE - Abnormal; Notable for the following components: Nitrite UA Positive (*) Leukocyte Esterase 2+ (*) All other components within normal limits Narrative: D-DIMER - Abnormal; Notable for the following components: D-Dimer Quantitative 1.16 (*) All other components within normal limits URINE MICROSCOPIC ONLY REFLEX TO CULTURE - Abnormal; Notable for the following components: WBC UA 11-20 (*) Bacteria UA Trace (*) All other components within normal limits Narrative: PT-INR [facility] - Normal PTT [facility] - Normal CULTURE URINE - IMAGING: XR Humerus Left 2Vw or More Final Result PROCEDURE: XR HUMERUS LEFT 2VW OR MORE, DATE/TIME OF EXAM: 09/07/2024 6:31 PM, LOCATION [facility] INDICATION: M79.89: Left arm swelling ADDITIONAL CLINICAL INFORMATION: Ordering Provider Reason For Exam: swelling Technologist Note: Additional: COMPARISON: None. FINDINGS: The humerus is intact without acute fracture. Bone density and texture are normal. No soft tissue swelling. IMPRESSION: No acute humeral fracture identified. Report dictated by Dante Mcclain MD, MD (residential concierge). I, Jason Mina MD have personally reviewed and interpreted this examination/study. > Interpreting Provider: Jason Mina MD on 09/07/2024 9:40 PM VAS Left Venous Duplex Ue (Results Pending) No results found. Orders and Medicine administered during this encounter: Orders Placed This Encounter CULTURE URINE XR Humerus Left 2Vw or More CBC W AUTO DIFFERENTIAL COMPREHENSIVE METABOLIC PANEL ERYTHROCYTE SEDIMENTATION RATE C-REACTIVE PROTEIN PT-INR [facility]H PTT SLH URINALYSIS REFLEX MICROSCOPIC REFLEX CULTURE D-DIMER PT-INR [facility] BASIC METABOLIC PANEL (CALCIUM TOTAL) CBC W/O DIFFERENTIAL MAGNESIUM BLOOD PHOSPHORUS BLOOD URINE MICROSCOPIC ONLY REFLEX TO CULTURE VAS Left Venous Duplex Ue AND Linked Order Group 0.9% NaCl injection 3 mL 0.9% NaCl injection 1-10 mL enoxaparin (Lovenox) injection 70 mg DISCONTD: rivaroxaban (Xarelto) tablet 15 mg DISCONTD: rivaroxaban (Xarelto) tablet 20 mg escitalopram (Lexapro) tablet 10 mg levETIRAcetam (Keppra) tablet 500 mg polyethylene glycol 3350 (Miralax) packet 17 g DISCONTD: QUEtiapine (SEROquel) tablet 25 mg senna (Senokot) tablet 8.6 mg vitamin D3 (Cholecalciferol) 25 MCG (1000 UNITS) tablet 1,000 Units DISCONTD: QUEtiapine (SEROquel) tablet 12.5 mg DISCONTD: QUEtiapine (SEROquel) tablet 25 mg haloperidol lactate (Haldol) injection 2 mg AND Linked Order Group QUEtiapine (SEROquel) tablet 25 mg QUEtiapine (SEROquel) tablet 12.5 mg haloperidol lactate (Haldol) injection ADS Med LORazepam (Ativan) injection ADS Med LORazepam (Ativan) injection 1 mg Medications 0.9% NaCl injection 3 mL (has no administration in time range) And 0.9% NaCl injection 1-10 mL (has no administration in time range) enoxaparin (Lovenox) injection 70 mg (70 mg Subcutaneous $ Given 09/07/242026) escitalopram (Lexapro) tablet 10 mg (has no administration in time range) levETIRAcetam (Keppra) tablet 500 mg (500 mg Oral $ Given 09/07/242026) polyethylene glycol 3350 (Miralax) packet 17 g (has no administration in time range) senna (Senokot) tablet 8.6 mg (has no administration in time range) vitamin D3 (Cholecalciferol) 25 MCG (1000 UNITS) tablet 1,000 Units (has no administration in time range) QUEtiapine (SEROquel) tablet 12.5 mg (has no administration in time range) And QUEtiapine (SEROquel) tablet 25 mg (has no administration in time range) haloperidol lactate (Haldol) injection 2 mg (2 mg Intramuscular $ Given 09/07/242099) LORazepam (Ativan) injection 1 mg (1 mg Intravenous $ Given 09/07/242115) ED Course: ED Course as of 09/07/242142 Sat Sep 07, [id number] Bedside ultrasound was concerning for DVT in left upper extremity. 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 [PK] 182 Discussed with trauma team. They state that patient can go to medicine service. [PK] 2142 After discussion with Hospitalist, the patient will be admitted to their service for further management of Arm injury. Admitting provider is Dr. Wang. - I have reviewed the diagnostic findings with the patient and they have had an opportunity to ask me any questions they have about care, diagnosis, and reason for admission. The patient states understanding and agrees to admission. [TH] ED Course User Index [PK] Aryan Cantu MD [TH] oTño Zelaya Clinical Impressions as of 09/07/242142 Left arm swelling Suspected deep vein thrombosis (DVT) Clinical Impression: 1. Left arm swelling 2. Suspected deep vein thrombosis (DVT) Disposition: Admit By signing my name below, IToño, attest that this documentation has been prepared underthe direction and in the presence of Dr. Sorto. Signed: Kelin Piña. I, Dr. Sorto, personally performed the services described in this documentation. All medical record entries made by the scribe were at my direction and in my presence. I have reviewed the chart and agree that the record reflects my personal performance and is accurate and complete. GIOUS STUDIES PROFESSOR * Antonio Patiño RN - 09/07/2024 4:23 PM CST Past Medical History: Diagnosis Date Actinic keratosis Dementia (HCC) Squamous cell carcinoma GIOUS STUDIES PROFESSOR documented in this encounter Miscellaneous Notes * Significant Event - Soledad Cuevas MD - 09/08/2024 4:22 PM RELIGIOUS STUDIES PROFESSOR Received report that patient was walking in room and had an episode of unresponsiveness. Patient did not fall. Patient was not responding to questions or his name. He was not following commands. Patient was mumbling incoherently. Episode lasted 2-3 minutes. Vital signs stable. On bedside assessment, patient now back to baseline. Responding to questions. Denies pain or discomfort. No fever or chills. No headache. No nausea or vomiting. BG 107. Further management per Dr. Pratt. Soledad Cuevas MD, MS, FACP, [facility] Hospitalist, [facility] [employer] Cashier in Internal Medicine [facility] 09/08/2024 4:26 PM GIOUS STUDIES PROFESSOR documented in this encounter Plan of Treatment Upcoming Encounters Date Type Department Care Team (Late st Contact Info) Description 10/09/2024 11:30 AM RELIGIOUS STUDIES PROFESSOR [facility] D[facility] [address] [place] [phone] Katharine Bar MD [address] [place] [address] 3 [place] [address] 11/19/2024 8:30 AM RELIGIOUS STUDIES PROFESSOR [facility] Derm[facility] [address] [place] [phone] Patricia Jarvis MD [address] [place] [address] 11/22/2024 8:00 AM RELIGIOUS STUDIES PROFESSOR [facility] [address] [place] [phone] Chay Nieves MD [address] [place] [address] Scheduled Orders Name Type Priority Associated Diagnoses Orde r Schedule URINALYSIS REFLEX MICROSCOPIC REFLEX CULTURE Lab Routine ONCE for 1 Occur rences starting 09/08/2024 until 09/08/2024 EEG VIDEO MONITORING Neurology Routine ONCE for 1 Occurrences starting 09/08/2024 until 09/08/2024 Scheduled Referrals Name Type Priority Associated Diagnoses Orde r Schedule Referral to Home Health Care Outpatient Referral Routine Fall, subsequent encounter Dementia, unspecified dementia severity, unspecified dementia type, unspecified whether behavioral, psychotic, or mood disturbance or anxiety (HCC) Ordered: 09/11/2024 documented as of this encounter Procedures Procedure Name Priority Date/Time Associated Diagnosis Comments PT-INR [facility] Routine 09/12/2024 6:13 AM RELIGIOUS STUDIES PROFESSOR CBC W/O DIFFERENTIAL Routine 09/11/2024 8:29 PM RELIGIOUS STUDIES PROFESSOR RENAL FUNCTION PANEL Routine 09/11/2024 8:28 PM RELIGIOUS STUDIES PROFESSOR PT-INR [facility] Routine 09/11/2024 4:45 AM RELIGIOUS STUDIES PROFESSOR CBC W/O DIFFERENTIAL Routine 09/10/2024 9:28 PM RELIGIOUS STUDIES PROFESSOR RENAL FUNCTION PANEL Routine 09/10/2024 9:27 PM RELIGIOUS STUDIES PROFESSOR PT-INR [facility] Routine 09/10/2024 6:10 AM RELIGIOUS STUDIES PROFESSOR CBC W/O DIFFERENTIAL Routine 09/09/2024 9:49 PM RELIGIOUS STUDIES PROFESSOR RENAL FUNCTION PANEL Routine 09/09/2024 9:49 PM RELIGIOUS STUDIES PROFESSOR VAS LEFT VENOUS DUPLEX UE STAT 09/09/2024 11:37 AM RELIGIOUS STUDIES PROFESSOR Left arm swelling PT-INR [facility] Routine 09/09/2024 10:40 AM RELIGIOUS STUDIES PROFESSOR LEVETIRACETAM LEVEL AM Draw 09/09/2024 6 :43 AM RELIGIOUS STUDIES PROFESSOR CULTURE BLOOD STAT 09/08/2024 8:07 PM RELIGIOUS STUDIES PROFESSOR CBC W/O DIFFERENTIAL Routine 09/08/2024 8:07 PM RELIGIOUS STUDIES PROFESSOR RENAL FUNCTION PANEL Routine 09/08/2024 8:07 PM RELIGIOUS STUDIES PROFESSOR FOLATE Routine 09/08/2024 8:07 PM RELIGIOUS STUDIES PROFESSOR VITAMIN B12 Routine 09/08/2024 8:07 PM RELIGIOUS STUDIES PROFESSOR IRON + TRANSFERRIN PANEL Routine 09/08/2024 8:07 PM RELIGIOUS STUDIES PROFESSOR GLUCOSE - POINT OF CARE Routine 09/08/2024 4:25 PM RELIGIOUS STUDIES PROFESSOR PT-INR [facility] Routine 09/08/2024 5:45 AM RELIGIOUS STUDIES PROFESSOR CBC W/O DIFFERENTIAL Routine 09/08/2024 5:45 AM RELIGIOUS STUDIES PROFESSOR BASIC METABOLIC PANEL (CALCIUM TOTAL) Routine 09/08/2024 5:45 AM RELIGIOUS STUDIES PROFESSOR PHOSPHORUS BLOOD Routine 09/08/2024 5:45 AM RELIGIOUS STUDIES PROFESSOR MAGNESIUM BLOOD Routine 09/08/2024 5:45 AM RELIGIOUS STUDIES PROFESSOR URINE MICROSCOPIC ONLY REFLEX TO CULTURE STAT 09/07/2024 6:37 PM RELIGIOUS STUDIES PROFESSOR URINALYSIS REFLEX MICROSCOPIC REFLEX CULTURE STAT 09/07/2024 6:37 PM RELIGIOUS STUDIES PROFESSOR CULTURE URINE STAT 09/07/2024 6:37 PM RELIGIOUS STUDIES PROFESSOR XR HUMERUS LEFT 2VW OR MORE STAT 09/07/2024 6:31 PM RELIGIOUS STUDIES PROFESSOR Left arm swelling PTT SLH STAT 09/07/2024 5:14 PM RELIGIOUS STUDIES PROFESSOR PT-INR [facility] STAT 09/07/2024 5:14 PM RELIGIOUS STUDIES PROFESSOR C-REACTIVE PROTEIN FELICITY 09/07/2024 5: 14 PM RELIGIOUS STUDIES PROFESSOR D-DIMER STAT 09/07/2024 5:14 PM RELIGIOUS STUDIES PROFESSOR ERYTHROCYTE SEDIMENTATION RATE STAT 09/07/2024 5:14 PM RELIGIOUS STUDIES PROFESSOR CBC W AUTO DIFFERENTIAL STAT 09/07/2024 5:14 PM RELIGIOUS STUDIES PROFESSOR COMPREHENSIVE METABOLIC PANEL STAT 09/07/2024 5:14 PM RELIGIOUS STUDIES PROFESSOR documented in this encounter Results * PT-INR [facility] (09/12/2024 6:13 AM RELIGIOUS STUDIES PROFESSOR) [facility] PT 14.2 12.1 - 14.8 Seconds 09/12/2024 7:09 AM [facility] INR 1.1 See Comment 09/12/2024 7:09 AM [facility] Comment:The suggested therap eutic range for standard coumadin (warfarin) therapy is an INR of 2.0-3.0. For high-risk patients (Mechanical Mitral Valve Prosthesis, etc.), the suggested prophylactic therapeutic range is an INR of 2.5-3.5. Blood BLOOD SPECIMEN / Unknown Lab Venipuncture / Unknown 09/12/2024 6:13 AM RELIGIOUS STUDIES PROFESSOR 09/12/2024 6:35 AM RELIGIOUS STUDIES PROFESSOR Escobar Sorto MD LAB - COAGULATION OR DERABLES [facility] [address] [place] [phone], [facility] [phone] * (ABNORMAL) CBC W/O DIFFERENTIAL (09/11/2024 8:29 PM RELIGIOUS STUDIES PROFESSOR) [facility] WBC 6.4 4.0 - 10.7 x10E9/L 09/11/2024 9:00 PM [facility] RBC Count 2.87(L) 4.30 - 5.80 x10E12/L 09/11/2024 9:00 PM [facility] Hemoglobin 8.9(L) 13.3 - 17.5 g/dL 09/11/2024 9:00 PM [facility] Hematocrit 27.4(L) 38.7 - 51.1 % 09/11/2024 9:00 PM [facility] MCV 95.5 80.0 - 98.0 fL 09/11/2024 9:00 PM [facility] MCH 31.0 26.7 - 33.6 pg 09/11/2024 9:00 PM [facility] MCHC 32.5 31.7 - 36.3 g/dL 09/11/2024 9:00 PM [facility] RDW-CV 14.0 11.3 - 14.8 % 09/11/2024 9:00 PM [facility] Platelet Count 205 150 - 420 x10E9/L 09/11/2024 9:00 PM [facility] MPV 10.4 7.8 - 11.4 fL 09/11/2024 9:00 PM [facility] Blood BLOOD SPECIMEN / Unknown Lab Venipuncture / Unknown 09/11/2024 8:29 PM RELIGIOUS STUDIES PROFESSOR 09/11/2024 8:45 PM RELIGIOUS STUDIES PROFESSOR Baljit Pratt MD LAB - HEMATOLOGY ORD ERABLES [facility] [address] [place] [phone], [facility] [phone] * (ABNORMAL) RENAL FUNCTION PANEL (09/11/2024 8:28 PM RELIGIOUS STUDIES PROFESSOR) BUN 20 7 - 26 mg/dL 09/11/2024 9:13 PM [facility] Creatinine 0.95 0.71 - 1.16 mg/dL 09/11/2024 9:13 PM [facility] Sodium 136 136 - 145 mmol/L 09/11/2024 9:13 PM [facility] Potassium 4.1 3.5 - 4.5 mmol/L 09/11/2024 9:13 PM [facility] Chloride 101 98 - 107 mmol/L 09/11/2024 9:13 PM [facility] CO2 25 22 - 29 mmol/L 09/11/2024 9:13 PM [facility] Glucose 111(H) 70 - 99 mg/dL 09/11/2024 9:13 PM [facility] Albumin 2.6(L) 3.4 - 5.0 g/dL 09/11/2024 9:13 PM [facility] Calcium 8.2(L) 8.4 - 10.2 mg/dL 09/11/2024 9:13 PM [facility] Phosphorus 3.4 2.8 - 5.1 mg/dL 09/11/2024 9:13 PM [facility] Anion Gap 10 6 - 16 09/11/2024 9:13 PM [facility] BUN/Creatinine Ratio 21 7 - 23 09/11/2024 9:13 PM [facility] Osmolality Calculated 285 275 - 295 mOsm/kg 09/11/2024 9:13 PM [facility] eGFR by CKD-EPI 77(L) >=90 mL/min/1.7 3 m2 09/11/2024 9:13 PM [facility] Blood BLOOD SPECIMEN / Unknown Lab Venipuncture / Unknown 09/11/2024 8:28 PM RELIGIOUS STUDIES PROFESSOR 09/11/2024 8:46 PM RELIGIOUS STUDIES PROFESSOR Baljit Pratt MD LAB - CHEMISTRY LISANDRO HUGHES Performing Organization Address [facility]/ZIP Co de Phone Number [address] [phone], [facility] [phone] * PT-INR [facility] (09/11/2024 4:45 AM RELIGIOUS STUDIES PROFESSOR) PT 13.8 12.1 - 14.8 Seconds 09/11/2024 6:31 AM [facility] INR 1.1 See Comment 09/11/2024 6:31 AM [facility] Comment:The suggested therap eutic range for standard coumadin (warfarin) therapy is an INR of 2.0-3.0. For high-risk patients (Mechanical Mitral Valve Prosthesis, etc.), the suggested prophylactic therapeutic range is an INR of 2.5-3.5. Blood BLOOD SPECIMEN / Unknown Lab Venipuncture / Unknown 09/11/2024 4:45 AM RELIGIOUS STUDIES PROFESSOR 09/11/2024 6:09 AM RELIGIOUS STUDIES PROFESSOR Escobar Sorto MD LAB - COAGULATION OR DERABLES Performing Organization Address [facility]/ZIP Co de Phone Number [address] [phone], [facility] [phone] * (ABNORMAL) CBC W/O DIFFERENTIAL (09/10/2024 9:28 PM RELIGIOUS STUDIES PROFESSOR) WBC 7.8 4.0 - 10.7 x10E9/L 09/10/2024 10:18 PM [facility] RBC Count 2.97(L) 4.30 - 5.80 x10E12/L 09/10/2024 10:18 PM [facility] Hemoglobin 9.4(L) 13.3 - 17.5 g/dL 09/10/2024 10:18 PM [facility] Hematocrit 28.9(L) 38.7 - 51.1 % 09/10/2024 10:18 PM [facility] MCV 97.3 80.0 - 98.0 fL 09/10/2024 10:18 PM [facility] MCH 31.6 26.7 - 33.6 pg 09/10/2024 10:18 PM [facility] MCHC 32.5 31.7 - 36.3 g/dL 09/10/2024 10:18 PM [facility] RDW-CV 14.1 11.3 - 14.8 % 09/10/2024 10:18 PM [facility] Platelet Count 188 150 - 420 x10E9/L 09/10/2024 10:18 PM [facility] MPV 10.3 7.8 - 11.4 fL 09/10/2024 10:18 PM [facility] Blood BLOOD SPECIMEN / Unknown Lab Venipuncture / Unknown 09/10/2024 9:28 PM RELIGIOUS STUDIES PROFESSOR 09/10/2024 9:59 PM RELIGIOUS STUDIES PROFESSOR Baljit Pratt MD LAB - HEMATOLOGY ORD ERABLES [address] [phone], [facility] [phone] * (ABNORMAL) RENAL FUNCTION PANEL (09/10/2024 9:27 PM RELIGIOUS STUDIES PROFESSOR) Pathologist [facility] BUN 19 7 - 26 mg/dL 09/10/2024 10:27 PM [facility] Creatinine 0.92 0.71 - 1.16 mg/dL 09/10/2024 10:27 PM [facility] Sodium 136 136 - 145 mmol/L 09/10/2024 10:27 PM [facility] Potassium 4.0 3.5 - 4.5 mmol/L 09/10/2024 10:27 PM [facility] Chloride 103 98 - 107 mmol/L 09/10/2024 10:27 PM [facility] CO2 24 22 - 29 mmol/L 09/10/2024 10:27 PM [facility] Glucose 109(H) 70 - 99 mg/dL 09/10/2024 10:27 PM [facility] Albumin 2.7(L) 3.4 - 5.0 g/dL 09/10/2024 10:27 PM [facility] Calcium 8.2(L) 8.4 - 10.2 mg/dL 09/10/2024 10:27 PM [facility] Phosphorus 2.4(L) 2.8 - 5.1 mg/dL 09/10/2024 10:27 PM [facility] Anion Gap 9 6 - 16 09/10/2024 10:27 PM [facility] BUN/Creatinine Ratio 21 7 - 23 09/10/2024 10:27 PM [facility] Osmolality Calculated 285 275 - 295 mOsm/kg 09/10/2024 10:27 PM [facility] eGFR by CKD-EPI 80(L) >=90 mL/min/1.7 3 m2 09/10/2024 10:27 PM [facility] Blood BLOOD SPECIMEN / Unknown Lab Venipuncture / Unknown 09/10/2024 9:27 PM [facility] 09/10/2024 9:59 PM [facility] Baljit Pratt MD LAB - CHEMISTRY LISANDRO Kim Organization Address City/State/ZIP Co de Phone Number [facility] [address] [place] [address], [facility] [phone] * PT-INR [facility] (09/10/2024 6:10 AM [facility]) PT 14.0 12.1 - 14.8 Seconds 09/10/2024 6:49 AM [facility] INR 1.1 See Comment 09/10/2024 6:49 AM [facility] Comment:The suggested therap eutic range for standard coumadin (warfarin) therapy is an INR of 2.0-3.0. For high-risk patients (Mechanical Mitral Valve Prosthesis, etc.), the suggested prophylactic therapeutic range is an INR of 2.5-3.5. Blood BLOOD SPECIMEN / Unknown Lab Venipuncture / Unknown 09/10/2024 6:10 AM RELIGIOUS STUDIES PROFESSOR 09/10/2024 6:28 AM RELIGIOUS STUDIES PROFESSOR Escobar Sorto MD LAB - COAGULATION OR DERABLES [facility] [address] [place] [address], [facility] [phone] * (ABNORMAL) RENAL FUNCTION PANEL (09/09/2024 9:49 PM RELIGIOUS STUDIES PROFESSOR) BUN 18 7 - 26 mg/dL 09/09/2024 11:16 PM [facility] Creatinine 1.02 0.71 - 1.16 mg/dL 09/09/2024 11:16 PM [facility] Sodium 136 136 - 145 mmol/L 09/09/2024 11:16 PM [facility] Potassium 4.3 3.5 - 4.5 mmol/L 09/09/2024 11:16 PM [facility] Chloride 104 98 - 107 mmol/L 09/09/2024 11:16 PM [facility] CO2 22 22 - 29 mmol/L 09/09/2024 11:16 PM [facility] Glucose 135(H) 70 - 99 mg/dL 09/09/2024 11:16 PM [facility] Albumin 2.6(L) 3.4 - 5.0 g/dL 09/09/2024 11:16 PM [facility] Calcium 8.2(L) 8.4 - 10.2 mg/dL 09/09/2024 11:16 PM [facility] Phosphorus 2.8 2.8 - 5.1 mg/dL 09/09/2024 11:16 PM [facility] Anion Gap 10 6 - 16 09/09/2024 11:16 PM [facility] BUN/Creatinine Ratio 18 7 - 23 09/09/2024 11:16 PM [facility] Osmolality Calculated 286 275 - 295 mOsm/kg 09/09/2024 11:16 PM [facility] eGFR by CKD-EPI 71(L) >=90 mL/min/1.7 3 m2 09/09/2024 11:16 PM [facility] Blood BLOOD SPECIMEN / Unknown Lab Venipuncture / Unknown 09/09/2024 9:49 PM RELIGIOUS STUDIES PROFESSOR 09/09/2024 10:46 PM RELIGIOUS STUDIES PROFESSOR Baljit Pratt MD LAB - CHEMISTRY LIENE SAUL [facility] [address] [place] [phone], [facility] [phone] * (ABNORMAL) CBC W/O DIFFERENTIAL (09/09/2024 9:49 PM RELIGIOUS STUDIES PROFESSOR) WBC 9.3 4.0 - 10.7 x10E9/L 09/09/2024 10:51 PM [facility] RBC Count 2.84(L) 4.30 - 5.80 x10E12/L 09/09/2024 10:51 PM [facility] Hemoglobin 8.9(L) 13.3 - 17.5 g/dL 09/09/2024 10:51 PM [facility] Hematocrit 26.4(L) 38.7 - 51.1 % 09/09/2024 10:51 PM [facility] MCV 93.0 80.0 - 98.0 fL 09/09/2024 10:51 PM [facility] MCH 31.3 26.7 - 33.6 pg 09/09/2024 10:51 PM [facility] MCHC 33.7 31.7 - 36.3 g/dL 09/09/2024 10:51 PM [facility] RDW-CV 14.0 11.3 - 14.8 % 09/09/2024 10:51 PM [facility] Platelet Count 203 150 - 420 x10E9/L 09/09/2024 10:51 PM [facility] MPV 10.1 7.8 - 11.4 fL 09/09/2024 10:51 PM RELIGIOUS STUDIES PROFESSOR [facility] Blood BLOOD SPECIMEN / Unknown Lab Venipuncture / Unknown 09/09/2024 9:49 PM RELIGIOUS STUDIES PROFESSOR 09/09/2024 10:47 PM RELIGIOUS STUDIES PROFESSOR Baljit Pratt MD LAB - HEMATOLOGY ORD ERABLES Performing Organization Address City/[facility]/ZIP Co de Phone Number [facility] [address] [place] [phone], [facility] [phone] * VAS Left Venous Duplex Ue (09/09/2024 11:37 AM RELIGIOUS STUDIES PROFESSOR) Anatomical Region Laterality Modality Upper Extremity Ultrasound 09/09/2024 9:48 AM RELIGIOUS STUDIES PROFESSOR Narrative Procedure Note Tunde Scott MD - 09/09/2024 Issa Taveras MD VASCULAR LAB ORDERAB LES * PT-INR [facility] (09/09/2024 10:40 AM RELIGIOUS STUDIES PROFESSOR) PT 13.7 12.1 - 14.8 Seconds 09/09/2024 12:09 PM RELIGIOUS STUDIES PROFESSOR [facility] INR 1.1 See Comment 09/09/2024 12:09 PM RELIGIOUS STUDIES PROFESSOR [facility] Comment:The suggested therap eutic range for standard coumadin (warfarin) therapy is an INR of 2.0-3.0. For high-risk patients (Mechanical Mitral Valve Prosthesis, etc.), the suggested prophylactic therapeutic range is an INR of 2.5-3.5. Blood BLOOD SPECIMEN / Unknown Lab Venipuncture / Unknown 09/09/2024 10:40 AM RELIGIOUS STUDIES PROFESSOR 09/09/2024 11:43 AM RELIGIOUS STUDIES PROFESSOR Escobar Sorto MD LAB - COAGULATION OR DERABLES Performing Organization Address City/[facility]/ZIP Co de Phone Number [facility] [address] [place] [phone], [facility] [phone] * LEVETIRACETAM LEVEL (09/09/2024 6:43 AM RELIGIOUS STUDIES PROFESSOR) Levetiracetam 21 10 - 40 ug/mL 09/11/2024 5:37 AM RELIGIOUS STUDIES PROFESSOR [facility] [employer] ([facility]) Comment: INTERPRETIVE INFORMATION: Keppra (Levetiracetam) Therapeutic Range: ??10-40 ug/mL ?Toxic: ??Not well Established Pharmacokinetics of levetiracetam are affected by renal function. Adverse effects may include somnolence, weakness, headache and vomiting. This levetiracetam (Keppra) immunoassay uses the [employer] reagents, which has known cross-reactivity with the drug brivaracetam (Briviact) and may report inaccurate results. Patients transitioning from levetiracetam to brivaracetam or those who are using both medications should not monitor drug concentrations with the [employer] assay. These patients should be monitored using a validated chromatographic methodology that distinguishes between drugs to determine drug concentrations. Performed By: [facility] [address] [place] [address] Student Records Specialist: Carlos A Alamo MD, PhD CLIA Number: [id number] Blood BLOOD SPECIMEN / Unknown Lab Venipuncture / Unknown 09/09/2024 6:43 AM RELIGIOUS STUDIES PROFESSOR 09/09/2024 6:54 AM RELIGIOUS STUDIES PROFESSOR Baljit Pratt MD LAB - THERAPEUTIC DR [place] MONITORING ORDERABLES Performing Organization Address [facility] de Phone Number [facility]) [address] [place] [address] * CULTURE BLOOD (09/08/2024 8:07 PM RELIGIOUS STUDIES PROFESSOR) Culture No growth day 5 GENE 09/14/2024 1:30 AM RELIGIOUS STUDIES PROFESSOR [facility] MICROBIOLOGY Blood PERIPHERAL BLOOD / Unknown Lab Venipuncture / Unknown 09/08/2024 8:07 PM RELIGIOUS STUDIES PROFESSOR 09/08/2024 9:01 PM RELIGIOUS STUDIES PROFESSOR Baljit Pratt MD LAB - MICROBIOLOGY O RDERABLES Performing Organization Address City/[facility]/ZIP Co de Phone Number [facility] MICROBIOLOGY [address] [place] [id number], [facility] [phone] * (ABNORMAL) RENAL FUNCTION PANEL (09/08/2024 8:07 PM RELIGIOUS STUDIES PROFESSOR) BUN 19 7 - 26 mg/dL 09/08/2024 9:54 PM [facility] Creatinine 0.83 0.71 - 1.16 mg/dL 09/08/2024 9:54 PM [facility] Sodium 138 136 - 145 mmol/L 09/08/2024 9:54 PM [facility] Potassium 4.2 3.5 - 4.5 mmol/L 09/08/2024 9:54 PM [facility] Chloride 106 98 - 107 mmol/L 09/08/2024 9:54 PM [facility] CO2 23 22 - 29 mmol/L 09/08/2024 9:54 PM [facility] Glucose 112(H) 70 - 99 mg/dL 09/08/2024 9:54 PM [facility] Albumin 2.6(L) 3.4 - 5.0 g/dL 09/08/2024 9:54 PM [facility] Calcium 8.4 8.4 - 10.2 mg/dL 09/08/2024 9:54 PM [facility] Phosphorus 3.4 2.8 - 5.1 mg/dL 09/08/2024 9:54 PM [facility] Anion Gap 9 6 - 16 09/08/2024 9:54 PM [facility] BUN/Creatinine Ratio 23 7 - 23 09/08/2024 9:54 PM [facility] Osmolality Calculated 289 275 - 295 mOsm/kg 09/08/2024 9:54 PM [facility] eGFR by CKD-EPI 84(L) >=90 mL/min/1.7 3 m2 09/08/2024 9:54 PM [facility] Blood BLOOD SPECIMEN / Unknown Lab Venipuncture / Unknown 09/08/2024 8:07 PM RELIGIOUS STUDIES PROFESSOR 09/08/2024 9:11 PM [facility] Baljit Pratt MD LAB - CHEMISTRY LISANDRO HUGHES [facility] Organization Address City/State/ZIP Co de Phone Number [facility] [address] [place] [address], [facility] [phone] * (ABNORMAL) CBC W/O DIFFERENTIAL (09/08/2024 8:07 PM RELIGIOUS STUDIES PROFESSOR) WBC 9.1 4.0 - 10.7 x10E9/L 09/08/2024 9:19 PM [facility] RBC Count 3.01(L) 4.30 - 5.80 x10E12/L 09/08/2024 9:19 PM [facility] Hemoglobin 9.3(L) 13.3 - 17.5 g/dL 09/08/2024 9:19 PM [facility] Hematocrit 28.7(L) 38.7 - 51.1 % 09/08/2024 9:19 PM [facility] MCV 95.3 80.0 - 98.0 fL 09/08/2024 9:19 PM [facility] MCH 30.9 26.7 - 33.6 pg 09/08/2024 9:19 PM [facility] MCHC 32.4 31.7 - 36.3 g/dL 09/08/2024 9:19 PM [facility] RDW-CV 14.1 11.3 - 14.8 % 09/08/2024 9:19 PM [facility] Platelet Count 209 150 - 420 x10E9/L 09/08/2024 9:19 PM [facility] MPV 10.6 7.8 - 11.4 fL 09/08/2024 9:19 PM [facility] Blood BLOOD SPECIMEN / Unknown Lab Venipuncture / Unknown 09/08/2024 8:07 PM RELIGIOUS STUDIES PROFESSOR 09/08/2024 9:11 PM RELIGIOUS STUDIES PROFESSOR Baljit Pratt MD LAB - HEMATOLOGY ORD ERABLES [facility] [address] [place] [address], [facility] [phone] * VITAMIN B12 (09/08/2024 8:07 PM RELIGIOUS STUDIES PROFESSOR) Pathologist [facility] Vitamin B12 603 213 - 816 pg/mL 09/08/2024 10:55 PM RELIGIOUS STUDIES PROFESSOR [facility] Blood BLOOD SPECIMEN / Unknown Lab Venipuncture / Unknown 09/08/2024 8:07 PM RELIGIOUS STUDIES PROFESSOR 09/08/2024 9:11 PM RELIGIOUS STUDIES PROFESSOR Baljit Pratt MD LAB - CHEMISTRY LISANDRO HUGHES [address] [address], [place] [phone] * (ABNORMAL) FOLATE (09/08/2024 8:07 PM RELIGIOUS STUDIES PROFESSOR) Folate 5.8(L) 7.0 - 31.4 ng/mL 09/08/2024 10:55 PM RELIGIOUS STUDIES PROFESSOR [facility] Blood BLOOD SPECIMEN / Unknown Lab Venipuncture / Unknown 09/08/2024 8:07 PM RELIGIOUS STUDIES PROFESSOR 09/08/2024 9:11 PM RELIGIOUS STUDIES PROFESSOR Baljit Pratt MD LAB - CHEMISTRY LISANDRO HUGHES Performing Organization Address City/[facility]/ZIP Co de Phone Number [address] [address], [place] [phone] * (ABNORMAL) IRON + TRANSFERRIN PANEL (09/08/2024 8:07 PM RELIGIOUS STUDIES PROFESSOR) Iron 48(L) 50 - 175 ug/dL 09/08/2024 10:22 PM [facility] Transferrin 144(L) 174 - 382 mg/dL 09/08/2024 10:22 PM [facility] Transferrin Saturation % 27 16 - 50 % 09/08/2024 10:22 PM [facility] TIBC Calculated 180(L) 240 - 450 ug/dL 09/08/2024 10:22 PM [facility] Blood BLOOD SPECIMEN / Unknown Lab Venipuncture / Unknown 09/08/2024 8:07 PM RELIGIOUS STUDIES PROFESSOR 09/08/2024 9:01 PM RELIGIOUS STUDIES PROFESSOR Baljit Pratt MD LAB - CHEMISTRY LISANDRO HUGHES [address] [place] [address], [facility] [phone] * (ABNORMAL) GLUCOSE - POINT OF CARE (09/08/2024 4:25 PM RELIGIOUS STUDIES PROFESSOR) Glucose WB/POC 107(H) 70 - 99 mg/dL 09/09/2024 12:31 AM [facility] Specimen Type Cap Fingerstick 2023 12:31 AM [facility] Blood BLOOD SPECIMEN / Unknown 09/08/2024 4:25 PM RELIGIOUS STUDIES PROFESSOR 09/09/2024 12:31 AM RELIGIOUS STUDIES PROFESSOR Baljit Pratt MD LAB - POINT OF CARE ORDERABLES Performing Organization Address City/[facility]/ZIP Co de Phone Number [facility] [address] [place] [address], [facility] [phone] * PT-INR [facility] (09/08/2024 5:45 AM RELIGIOUS STUDIES PROFESSOR) PT 13.2 12.1 - 14.8 Seconds 09/08/2024 6:51 AM [facility] INR 1.0 See Comment 09/08/2024 6:51 AM [facility] Comment:The suggested therap eutic range for standard coumadin (warfarin) therapy is an INR of 2.0-3.0. For high-risk patients (Mechanical Mitral Valve Prosthesis, etc.), the suggested prophylactic therapeutic range is an INR of 2.5-3.5. Blood BLOOD SPECIMEN / Unknown Lab Venipuncture / Unknown 09/08/2024 5:45 AM RELIGIOUS STUDIES PROFESSOR 09/08/2024 6:21 AM RELIGIOUS STUDIES PROFESSOR Escobar Sorto MD LAB - COAGULATION OR DERABLES [facility] [address] [place] [address], [place] [phone] * PHOSPHORUS BLOOD (09/08/2024 5:45 AM RELIGIOUS STUDIES PROFESSOR) Phosphorus 3.2 2.8 - 5.1 mg/dL 09/08/2024 6:56 AM [facility] Blood BLOOD SPECIMEN / Unknown Lab Venipuncture / Unknown 09/08/2024 5:45 AM RELIGIOUS STUDIES PROFESSOR 09/08/2024 6:21 AM RELIGIOUS STUDIES PROFESSOR Issa Taveras MD LAB - CHEMISTRY LISANDRO HUGHES Performing Organization Address City/[facility]/ZIP Co de Phone Number [address] [address], [facility] [phone] * MAGNESIUM BLOOD (09/08/2024 5:45 AM RELIGIOUS STUDIES PROFESSOR) Magnesium 1.8 1.6 - 2.6 mg/dL 09/08/2024 6:56 AM [facility] Blood BLOOD SPECIMEN / Unknown Lab Venipuncture / Unknown 09/08/2024 5:45 AM RELIGIOUS STUDIES PROFESSOR 09/08/2024 6:21 AM RELIGIOUS STUDIES PROFESSOR Issa Taveras MD LAB - CHEMISTRY LISANDRO HUGHES Performing Organization Address City/[facility]/ZIP Co de Phone Number [address] [address], [facility] [phone] * (ABNORMAL) CBC W/O DIFFERENTIAL (09/08/2024 5:45 AM RELIGIOUS STUDIES PROFESSOR) WBC 9.5 4.0 - 10.7 x10E9/L 09/08/2024 6:54 AM [facility] RBC Count 3.27(L) 4.30 - 5.80 x10E12/L 09/08/2024 6:54 AM [facility] Hemoglobin 10.1(L) 13.3 - 17.5 g/dL 09/08/2024 6:54 AM [facility] Hematocrit 30.6(L) 38.7 - 51.1 % 09/08/2024 6:54 AM [facility] MCV 93.6 80.0 - 98.0 fL 09/08/2024 6:54 AM [facility] MCH 30.9 26.7 - 33.6 pg 09/08/2024 6:54 AM [facility] MCHC 33.0 31.7 - 36.3 g/dL 09/08/2024 6:54 AM [facility] RDW-CV 13.9 11.3 - 14.8 % 09/08/2024 6:54 AM [facility] Platelet Count 216 150 - 420 x10E9/L 09/08/2024 6:54 AM [facility] MPV 10.1 7.8 - 11.4 fL 09/08/2024 6:54 AM [facility] Blood BLOOD SPECIMEN / Unknown Lab Venipuncture / Unknown 09/08/2024 5:45 AM RELIGIOUS STUDIES PROFESSOR 09/08/2024 6:21 AM RELIGIOUS STUDIES PROFESSOR Issa Taveras MD LAB - HEMATOLOGY ORD ERABLES [facility] [address] [place] [address], [facility] [phone] * (ABNORMAL) BASIC METABOLIC PANEL (CALCIUM TOTAL) (09/08/2024 5:45 AM RELIGIOUS STUDIES PROFESSOR) BUN 25 7 - 26 mg/dL 09/08/2024 6:56 AM [facility] Creatinine 0.87 0.71 - 1.16 mg/dL 09/08/2024 6:56 AM [facility] Sodium 139 136 - 145 mmol/L 09/08/2024 6:56 AM [facility] Potassium 4.3 3.5 - 4.5 mmol/L 09/08/2024 6:56 AM [facility] Chloride 106 98 - 107 mmol/L 09/08/2024 6:56 AM [facility] CO2 25 22 - 29 mmol/L 09/08/2024 6:56 AM [facility] Glucose 92 70 - 99 mg/dL 09/08/2024 6:56 AM [facility] Calcium 8.6 8.4 - 10.2 mg/dL 09/08/2024 6:56 AM [facility] Anion Gap 8 6 - 16 09/08/2024 6:56 AM [facility] BUN/Creatinine Ratio 29(H) 7 - 23 09/08/2024 6:56 AM [facility] Osmolality Calculated 292 275 - 295 mOsm/kg 09/08/2024 6:56 AM RELIGIOUS STUDIES PROFESSOR [facility] eGFR by CKD-EPI 83(L) >=90 mL/min/1.7 3 m2 09/08/2024 6:56 AM RELIGIOUS STUDIES PROFESSOR [facility] Blood BLOOD SPECIMEN / Unknown Lab Venipuncture / Unknown 09/08/2024 5:45 AM RELIGIOUS STUDIES PROFESSOR 09/08/2024 6:21 AM RELIGIOUS STUDIES PROFESSOR Issa Taveras MD LAB - CHEMISTRY LISANDRO HUGHES [facility] [address] [place] [address], [facility] [phone] * (ABNORMAL) CULTURE URINE (09/07/2024 6:37 PM RELIGIOUS STUDIES PROFESSOR) Culture Urine >100,000 CFU/mL Staphylococcus aureus(A) GENE 09/09/2024 2:23 PM RELIGIOUS STUDIES PROFESSOR [facility] Comment:Staphylococcus aureu s methicillin-susceptible (MSSA) detected by penicillin binding protein immunoassay. Culture Urine 10,000-50,000 CFU/mL urogenital prema GENE 09/09/2024 2:23 PM RELIGIOUS STUDIES PROFESSOR [facility] Urine URINE SPECIMEN OBTAINED BY CLEAN CATCH PROCEDURE / Unknown Collection / Unknown 09/07/2024 6:37 PM RELIGIOUS STUDIES PROFESSOR 09/07/2024 7:26 PM RELIGIOUS STUDIES PROFESSOR Narrative [facility] - 09/09/2024 2:23 PM RELIGIOUS STUDIES PROFESSOR Staphylococcus aureus in urine may represent underlying bacteremia.?? ID consult strongly recommended. Organism Antibiotic Method Susceptibility Staphylococcus aureus Cefazolin GENE Susceptible Staphylococcus aureus Doxycycline GENE <=0.5 ug/mL: Susceptible Staphylococcus aureus Oxacillin GENE <=0.25 ug/mL: Susceptible Comment: Staphylococcus sensitivity to oxacillin predicts susceptibility for nafcillin, ampicillin/sulbactam, amoxicillin/clavulanate, piperacillin/tazobactam, all cephalosporins (except ceftazidime, ceftazidime/avibactam, ceftolozane/tazobactam), and all carbapenems. Escobar Sorto MD LAB - MICROBIOLOGY [facility] [address] [place] [address], [facility] [phone] * (ABNORMAL) URINE MICROSCOPIC ONLY REFLEX TO CULTURE (09/07/2024 6:37 PM RELIGIOUS STUDIES PROFESSOR) Reflex Status Culture to follow 09/07/2024 7:26 PM [facility] WBC UA 11-20(A) None Seen, 0-5 /HPF 09/07/2024 7:26 PM [facility] Bacteria UA Trace(A) None /HPF 09/07/2024 7:26 PM [facility] Squamous Epithelial Cells UA None Seen None Seen, 0-2, 3-5 /HPF 09/07/2024 7:26 PM [facility] Urine URINE SPECIMEN OBTAINED BY CLEAN CATCH PROCEDURE / Unknown Collection / Unknown 09/07/2024 6:37 PM RELIGIOUS STUDIES PROFESSOR 09/07/2024 6:51 PM RELIGIOUS STUDIES PROFESSOR [facility] - 09/07/2024 7:26 PM RELIGIOUS STUDIES PROFESSOR Escobar Sorto MD LAB - URINALYSIS ORD ERABLES [facility] [address] [place] [address], [facility] [phone] * (ABNORMAL) URINALYSIS REFLEX MICROSCOPIC REFLEX CULTURE (09/07/2024 6:37 PM RELIGIOUS STUDIES PROFESSOR) Color UA Yellow Straw, Yellow 09/07/2024 6:59 PM [facility] Clarity UA Clear Clear 09/07/2024 6:59 PM [facility] Specific [place]yle UA 1.009 1.005 - 1.030 09/07/2024 6:59 PM [facility] pH UA 6.0 5.0 - 8.0 pH 09/07/2024 6:59 PM [facility] Protein UA Negative Negative 09/07/2024 6:59 PM [facility] Glucose UA Negative Negative 09/07/2024 6:59 PM [facility] Ketone UA Negative Negative 09/07/2024 6:59 PM [facility] Bilirubin UA Negative Negative 09/07/2024 6:59 PM [facility] Blood UA Negative Negative 09/07/2024 6:59 PM RELIGIOUS STUDIES PROFESSOR [facility] Nitrite UA Positive(A) Negative 09/07/2024 6:59 PM RELIGIOUS STUDIES PROFESSOR [facility] Leukocyte Esterase 2+(A) Negative 09/07/2024 6:59 PM RELIGIOUS STUDIES PROFESSOR [facility] Urobilinogen UA Negative Negative mg/dL 09/07/2024 6:59 PM RELIGIOUS STUDIES PROFESSOR [facility] Urine URINE SPECIMEN OBTAINED BY CLEAN CATCH PROCEDURE / Unknown Collection / Unknown 09/07/2024 6:37 PM RELIGIOUS STUDIES PROFESSOR 09/07/2024 6:51 PM RELIGIOUS STUDIES PROFESSOR Narrative [facility] - 09/07/2024 6:59 PM RELIGIOUS STUDIES PROFESSOR Escobar Sorto MD LAB - URINALYSIS ORD ERABLES [facility] [address] [place] [address], [facility] [phone] * XR Humerus Left 2Vw or More (09/07/2024 6:31 PM RELIGIOUS STUDIES PROFESSOR) Anatomical Region Laterality Modality Upper Extremity Digital Radiogra phy 09/07/2024 6:56 PM RELIGIOUS STUDIES PROFESSOR Impressions 09/07/2024 9:40 PM RELIGIOUS STUDIES PROFESSOR IMPRESSION: No acute humeral fracture identified. Report dictated by Dante Mcclain MD, MD (residential concierge). IJason MD have personally reviewed and interpreted this examination/study. > Interpreting Provider: Jason Mina MD on 09/07/2024 9:40 PM Narrative 09/07/2024 9:40 PM RELIGIOUS STUDIES PROFESSOR PROCEDURE: ??XR HUMERUS LEFT 2VW OR MORE, DATE/TIME OF EXAM: ??09/07/2024 6:31 PM, LOCATION ??[facility] INDICATION: M79.89: Left arm swelling ADDITIONAL CLINICAL INFORMATION: Ordering Provider Reason For Exam: ??swelling Technologist Note: Additional: COMPARISON: None. FINDINGS: The humerus is intact without acute fracture. Bone density and texture are normal. No soft tissue swelling. Procedure Note Jason Mina MD - 09/07/2024 PROCEDURE: XR HUMERUS LEFT 2VW OR MORE, DATE/TIME OF EXAM: 46:31 PM, LOCATION [facility] INDICATION: M79.89: Left arm swelling ADDITIONAL CLINICAL INFORMATION: Ordering Provider Reason For Exam: swelling Technologist Note: Additional: COMPARISON: None. FINDINGS: The humerus is intact without acute fracture. Bone density and textureare normal. No soft tissue swelling. IMPRESSION: No acute humeral fracture identified. Report dictated by Dante Mcclain MD, MD (residential concierge). I, Jason Mina MD have personally reviewed and interpreted this examination/study. > Interpreting Provider: Jason Mina MD on 09/07/2024 9:40 PM Escobar Sorto MD DIAGNOSTIC IMAGING O RDERABLES * (ABNORMAL) D-DIMER (09/07/2024 5:14 PM RELIGIOUS STUDIES PROFESSOR) D-Dimer Quantitative 1.16(H) <=0.50 mcg/mL FEU 09/07/2024 6:35 PM RELIGIOUS STUDIES PROFESSOR [facility] Comment: In the absence of [...] Unknown Venipuncture / Unknown 09/07/2024 5:14 PM RELIGIOUS STUDIES PROFESSOR 09/07/2024 5:19 PM RELIGIOUS STUDIES PROFESSOR Escobar Sorto MD LAB - COAGULATION OR DERABLES Performing Organization Address [facility]/ZIP Co de Phone Number [address] [address], [facility] [phone] * PTT [facility] (09/07/2024 5:14 PM RELIGIOUS STUDIES PROFESSOR) APTT 30.2 23.0 - 38.4 Seconds 09/07/2024 5:42 PM [facility] Comment:Suggested therapeuti c range for full dose I.V. unfractionated heparin therapy for venous thromboembolism is 71 to 109 seconds. Blood BLOOD SPECIMEN / Unknown Venipuncture / Unknown 09/07/2024 5:14 PM RELIGIOUS STUDIES PROFESSOR 09/07/2024 5:19 PM RELIGIOUS STUDIES PROFESSOR Escobar Sorto MD LAB - COAGULATION OR DERABLES Performing Organization Address [facility] Co de Phone Number [address] [address], [facility] [phone] * PT-INR [facility] (09/07/2024 5:14 PM RELIGIOUS STUDIES PROFESSOR) PT 12.9 12.1 - 14.8 Seconds 09/07/2024 5:42 PM [facility] INR 1.0 See Comment 09/07/2024 5:42 PM [facility] Comment:The suggested therap eutic range for standard coumadin (warfarin) therapy is an INR of 2.0-3.0. For high-risk patients (Mechanical Mitral Valve Prosthesis, etc.), the suggested prophylactic therapeutic range is an INR of 2.5-3.5. Blood BLOOD SPECIMEN / Unknown Venipuncture / Unknown 09/07/2024 5:14 PM RELIGIOUS STUDIES PROFESSOR 09/07/2024 5:19 PM RELIGIOUS STUDIES PROFESSOR Escobar Sorto MD LAB - COAGULATION OR DERABLES [address] [address], [place] [phone] * (ABNORMAL) C-REACTIVE PROTEIN (09/07/2024 5:14 PM RELIGIOUS STUDIES PROFESSOR) Pathologist [facility] C-Reactive Protein 3.8(H) <=0.5 mg/dL 09/07/2024 5:57 PM RELIGIOUS STUDIES PROFESSOR [facility] Blood BLOOD SPECIMEN / Unknown Venipuncture / Unknown 09/07/2024 5:14 PM RELIGIOUS STUDIES PROFESSOR 09/07/2024 5:23 PM RELIGIOUS STUDIES PROFESSOR Escobar Sorto MD LAB - CHEMISTRY ORDE RABDELL Performing Organization Address City/[facility]/ZIP Co de Phone Number [address] [address], [place] [phone] * (ABNORMAL) ERYTHROCYTE SEDIMENTATION RATE (09/07/2024 5:14 PM RELIGIOUS STUDIES PROFESSOR) [facility] Erythrocyte Sedimentation Rate Westergren 55(H) 0 - 20 MM/HR 09/07/2024 5:41 PM RELIGIOUS STUDIES PROFESSOR [facility] Blood BLOOD SPECIMEN / Unknown Venipuncture / Unknown 09/07/2024 5:14 PM RELIGIOUS STUDIES PROFESSOR 09/07/2024 5:19 PM RELIGIOUS STUDIES PROFESSOR Escobar Sorto MD LAB - HEMATOLOGY ORD ERABLES [address] [address], [place] [phone] * (ABNORMAL) COMPREHENSIVE METABOLIC PANEL (09/07/2024 5:14 PM RELIGIOUS STUDIES PROFESSOR) Pathologist [facility] BUN 26 7 - 26 mg/dL 09/07/2024 5:57 PM RELIGIOUS STUDIES PROFESSOR [facility] Creatinine 1.00 0.71 - 1.16 mg/dL 09/07/2024 5:57 PM RELIGIOUS STUDIES PROFESSOR [facility] Sodium 140 136 - 145 mmol/L 09/07/2024 5:57 PM RELIGIOUS STUDIES PROFESSOR [facility] Potassium 4.4 3.5 - 4.5 mmol/L 09/07/2024 5:57 PM [facility] Chloride 105 98 - 107 mmol/L 09/07/2024 5:57 PM [facility] CO2 23 22 - 29 mmol/L 09/07/2024 5:57 PM [facility] Glucose 91 70 - 99 mg/dL 09/07/2024 5:57 PM [facility] Calcium 8.8 8.4 - 10.2 mg/dL 09/07/2024 5:57 PM [facility] Protein Total 6.4 6.0 - 8.3 g/dL 09/07/2024 5:57 PM [facility] Albumin 3.0(L) 3.4 - 5.0 g/dL 09/07/2024 5:57 PM [facility] Bilirubin Total 0.3 0.2 - 1.2 mg/dL 09/07/2024 5:57 PM [facility] Alkaline Phosphatase 134 40 - 150 U/L 09/07/2024 5:57 PM [facility] ALT 30 5 - 55 U/L 09/07/2024 5:57 PM [facility] AST 32 5 - 34 U/L 09/07/2024 5:57 PM [facility] Anion Gap 12 6 - 16 09/07/2024 5:57 PM [facility] BUN/Creatinine Ratio 26(H) 7 - 23 09/07/2024 5:57 PM [facility] Osmolality Calculated 294 275 - 295 mOsm/kg 09/07/2024 5:57 PM [facility] Albumin/Globulin Ratio 0.9(L) 1.1 - 2.3 09/07/2024 5:57 PM [facility] eGFR by CKD-EPI 72(L) >=90 mL/min/1.7 3 m2 09/07/2024 5:57 PM [facility] Blood BLOOD SPECIMEN / Unknown Venipuncture / Unknown 09/07/2024 5:14 PM RELIGIOUS STUDIES PROFESSOR 09/07/2024 5:23 PM [facility] Escobar Sorto MD LAB - CHEMISTRY LISANDRO HUGHES [facility] Organization Address City/State/ZIP Co de Phone Number [facility] [address] [place] [address], [facility] [phone] * (ABNORMAL) CBC W AUTO DIFFERENTIAL (09/07/2024 5:14 PM [facility]) [facility] Signature WBC 10.0 4.0 - 10.7 x10E9/L 09/07/2024 5:26 PM [facility] RBC Count 3.29(L) 4.30 - 5.80 x10E12/L 09/07/2024 5:26 PM [facility] Hemoglobin 10.3(L) 13.3 - 17.5 g/dL 09/07/2024 5:26 PM [facility] Hematocrit 30.8(L) 38.7 - 51.1 % 09/07/2024 5:26 PM [facility] MCV 93.6 80.0 - 98.0 fL 09/07/2024 5:26 PM [facility] MCH 31.3 26.7 - 33.6 pg 09/07/2024 5:26 PM [facility] MCHC 33.4 31.7 - 36.3 g/dL 09/07/2024 5:26 PM [facility] RDW-CV 13.9 11.3 - 14.8 % 09/07/2024 5:26 PM [facility] Platelet Count 212 150 - 420 x10E9/L 09/07/2024 5:26 PM [facility] MPV 10.5 7.8 - 11.4 fL 09/07/2024 5:26 PM [facility] Neutrophil % 75.9(H) 41.0 - 74.0 % 09/07/2024 5:26 PM [facility] Lymphocyte % 12.5(L) 17.0 - 47.0 % 09/07/2024 5:26 PM [facility] Monocyte % 8.0 3.0 - 11.0 % 09/07/2024 5:26 PM [facility] Eosinophil % 2.5 0.0 - 7.0 % 09/07/2024 5:26 PM [facility] Basophil % 0.3 0.0 - 1.6 % 09/07/2024 5:26 PM [facility] Immature Granulocytes % 0.8 0.0 - 1.0 % 09/07/2024 5:26 PM [facility] Neutrophil Absolute 7.59(H) 1.60 - 7.50 x10E9/L 09/07/2024 5:26 PM [facility] Lymphocyte Absolute 1.25 1.00 - 4.40 x10E9/L 09/07/2024 5:26 PM [facility] Monocyte Absolute 0.80 0.15 - 1.00 x10E9/L 09/07/2024 5:26 PM [facility] Eosinophil Absolute 0.25 0.00 - 0.60 x10E9/L 09/07/2024 5:26 PM [facility] Basophil Absolute 0.03 0.00 - 0.13 x10E9/L 09/07/2024 5:26 PM [facility] Blood BLOOD SPECIMEN / Unknown Venipuncture / Unknown 09/07/2024 5:14 PM [employer] 09/07/2024 5:19 PM [facility] Escobar Sorto MD LAB - HEMATOLOGY ORD ERABLES [facility] [address] [place] [address], [facility] [phone] documented in this encounter Visit Diagnoses Diagnosis Left arm swelling Swelling of limb Suspected deep vein thrombosis (DVT) Orthostatic hypotension Fall, subsequent encounter Dementia, unspecified dementia severity, unspecified dementia type, unspecified whether behavioral, psychotic, or mood disturbance or anxiety (HCC) Suspected deep vein thrombosis (DVT) documented in this encounter Administered Medications Inactive Administered Medications - up to 3 most recent administrations Medication Order MAR Action Action Date Dose Rate Site 0.9% NaCl injection 1-10 mL 1-10 mL, Intracatheter, PRN, Other, peripheral line flush, Starting on 09/07/24 at 1635, Until Reyna 09/12/24 at 1413, Flush peripheral IV catheter with 1-10 mL of normal saline before and after medications and prn to clear blood from the line or to verify patency. 0.9% NaCl injection 3 mL 3 mL, Intracatheter, EVERY 8 HOURS, First dose on 09/07/24 at 1715, Until Discontinued, Flush peripheral IV catheter with 3 mL of normal saline every 8 hours. $ Given 09/11/2024 1:00 PM [employer] 3 mL $ Given 09/11/2024 9:07 AM [employer]UDIES [employer] 3 mL $ Given 09/10/2024 9:29 PM [employer] 3 mL acetaminophen (Tylenol) tablet 1,000 mg 1,000 mg, Oral, EVERY 8 HOURS PRN, Headache, pain, Starting on 09/09/24 at 1258, Until Reyna 09/12/24 at 1413, Patient preference for lesser PRN pain meds [...] first unless patient cannot tolerate oral intake apixaban (Eliquis) tablet 2.5 mg 2.5 mg, Oral, 2 TIMES DAILY, First dose on Mon09/10/24 at 2100, Until Discontinued $ Given 09/12/2024 8:43 AM [employer]IES PROF[employer] 2.5 mg $ Given 09/11/2024 8:10 PM RELIGIOUS STUDIES PROFESSOR 2.5 mg $ Given 09/11/2024 9:08 AM RELIGIOUS STUDIES PROFESSOR 2.5 mg ceFAZolin (Ancef) 2 g in sterile water (PF) 20 mL syringe 2 g, Intravenous, EVERY 8 HOURS, First dose on Mon09/08/24 at 1800, Until Discontinued, Infuse over 3-5 minutes. Dilute vial with 20 ml solution for a final concentration of 100 mg/ml., Indication for anti-infective therapy: Documented infection, Site of anti-infective therapy: Urine/Genitourinary $ Given 09/11/2024 9:08 AM RELIGIOUS STUDIES PROFESSOR 2 g $ Given 09/11/2024 2:51 AM RELIGIOUS STUDIES PROFESSOR 2 g $ Given 09/10/2024 7:46 PM RELIGIOUS STUDIES PROFESSOR 2 g cephalexin (Keflex) capsule 500 mg 500 mg, Oral, 4 TIMES DAILY, 8 doses, First dose on Mon09/11/24 at 1300, Last dose on Mon09/13/24 at 0900, Indication for anti-infective therapy: Documented infection, Site of anti-infective therapy: Urine/Genitourinary $ Given 09/12/2024 8:43 AM RELIGIOUS STUDIES PROFESSOR 500 mg $ Given 09/11/2024 8:10 PM RELIGIOUS STUDIES PROFESSOR 500 mg $ Given 09/11/2024 4:00 PM RELIGIOUS STUDIES PROFESSOR 500 mg enoxaparin (Lovenox) injection 70 mg 70 mg (rounded from 68.4 mg = 1 mg/kg ? 68.4 kg), Subcutaneous, EVERY 12 HOURS, 10 doses, First dose on 09/07/24 at 1845, Last dose on Reyna 09/12/24 at 0900, (for prefilled syringes) do not expel air bubble from the syringe prior to the injection Remind Patient to not rub injection site. Could cause hematoma. $ Given 09/10/2024 9:05 AM RELIGIOUS STUDIES PROFESSOR 70 mg Abd Left Lower Quadr ant $ Given 09/09/2024 8:20 PM RELIGIOUS STUDIES PROFESSOR 70 mg Ab d Left Upper Quadrant $ Given 09/09/2024 4:54 AM RELIGIOUS STUDIES PROFESSOR 70 mg Ab dominal Tissue escitalopram (Lexapro) tablet 10 mg 10 mg, Oral, DAILY, First dose on 09/08/24 at 0900, Until Discontinued $ Given 09/12/2024 8:42 AM RELIGIOUS STUDIES PROFESSOR 10 mg $ Given 09/11/2024 9:08 AM RELIGIOUS STUDIES PROFESSOR 10 mg $ Given 09/10/2024 9:06 AM RELIGIOUS STUDIES PROFESSOR 10 mg folic acid (Folvite) tablet 1 mg 1 mg, Oral, DAILY, First dose on 09/09/24 at 1715, Until Discontinued $ Given 09/12/2024 8:42 AM RELIGIOUS STUDIES PROFESSOR 1 mg $ Given 09/11/2024 9:08 AM RELIGIOUS STUDIES PROFESSOR 1 mg $ Given 09/10/2024 9:05 AM RELIGIOUS STUDIES PROFESSOR 1 mg haloperidol lactate (Haldol) injection 2 mg 2 mg, Intramuscular, ONCE, 1 dose, On 09/07/24 at 2115 $ Given 09/07/2024 9:00 PM RELIGIOUS STUDIES PROFESSOR 2 mg Other see comments haloperidol lactate (Haldol) injection 2 mg 2 mg, Intramuscular, EVERY 8 HOURS PRN, Agitation, Starting on 09/09/24 at 1217, Until Reyna 09/12/24 at 1413 $ Given 09/11/2024 8:11 PM RELIGIOUS STUDIES PROFESSOR 2 mg Left Deltoid $ Given 09/10/2024 7:46 PM RELIGIOUS STUDIES PROFESSOR 2 mg Le ft Arm $ Given 09/09/2024 8:21 PM RELIGIOUS STUDIES PROFESSOR 2 mg Le ft Deltoid haloperidol lactate (Haldol) injection ADS Med 1 dose, Starting on 09/07/24 at 2057, Until 09/07/24 at 2100, Created by leslee hopkins levETIRAcetam (Keppra) tablet 500 mg 500 mg, Oral, 2 TIMES DAILY, First dose on 09/07/24 at 2100, Until Discontinued, Do not crush or chew because of TASTE only. $ Given 09/12/2024 8:43 AM RELIGIOUS STUDIES PROFESSOR 500 mg $ Given 09/11/2024 8:10 PM RELIGIOUS STUDIES PROFESSOR 500 mg $ Given 09/11/2024 9:08 AM RELIGIOUS STUDIES PROFESSOR 500 mg LORazepam (Ativan) injection 0.5 mg 0.5 mg, Intravenous, ONCE, 1 dose, On Mon09/09/24 at 2200 $ Given 09/09/2024 10:06 PM RELIGIOUS STUDIES PROFESSOR 0.5 mg LORazepam (Ativan) injection 0.5 mg 0.5 mg, Intravenous, ONCE, 1 dose, On Mon09/11/24 at 2215 $ Given 09/11/2024 9:58 PM RELIGIOUS STUDIES PROFESSOR 0.5 mg LORazepam (Ativan) injection 1 mg 1 mg, Intravenous, NOW, 1 dose, On 09/07/24 at 2130 $ Given 09/07/2024 9:16 PM RELIGIOUS STUDIES PROFESSOR 1 mg LORazepam (Ativan) injection ADS Med 1 dose, Starting on 09/07/24 at 2113, Until 09/07/24 at 6, Created by leslee hopkins polyethylene glycol 3350 (Miralax) packet 17 g 17 g, Oral, DAILY, First dose on 09/08/24 at 0900, Until Discontinued, Mix in 8 ounces of water, juice, soda, coffee or tea prior to administration $ Given 09/11/2024 9:10 AM RELIGIOUS STUDIES PROFESSOR 17 g $ Given 09/10/2024 9:05 AM RELIGIOUS STUDIES PROFESSOR 17 g $ Given 09/09/2024 8:15 AM RELIGIOUS STUDIES PROFESSOR 17 g QUEtiapine (SEROquel) tablet 12.5 mg 12.5 mg, Oral, DAILY, First dose (after last modification) on 09/08/24 at 0900, Until Discontinued $ Given 09/12/2024 8:42 AM RELIGIOUS STUDIES PROFESSOR 12.5 mg $ Given 09/11/2024 9:08 AM RELIGIOUS STUDIES PROFESSOR 12.5 mg $ Given 09/10/2024 9:04 AM RELIGIOUS STUDIES PROFESSOR 12.5 mg QUEtiapine (SEROquel) tablet 12.5 mg 12.5 mg, Oral, DAILY PRN, In the afternoon for agitation, Starting on 09/11/24 at 1551, Until Reyna 09/12/24 at 1413 $ Given 09/11/2024 4:00 PM RELIGIOUS STUDIES PROFESSOR 12.5 mg QUEtiapine (SEROquel) tablet 25 mg 25 mg, Oral, AT BEDTIME, First dose on 09/07/24 at 2100, Until Discontinued $ Given 09/07/2024 8:28 PM RELIGIOUS STUDIES PROFESSOR 25 mg QUEtiapine (SEROquel) tablet 25 mg 25 mg, Oral, AT BEDTIME, First dose (after last modification) on 09/08/24 at 2100, Until Discontinued $ Given 09/11/2024 8:10 PM RELIGIOUS STUDIES PROFESSOR 25 mg $ Given 09/10/2024 9:29 PM RELIGIOUS STUDIES PROFESSOR 25 mg $ Given 09/09/2024 8:20 PM RELIGIOUS STUDIES PROFESSOR 25 mg senna (Senokot) tablet 8.6 mg 8.6 mg, Oral, DAILY, First dose on 09/08/24 at 0900, Until Discontinued $ Given 09/11/2024 9:08 AM RELIGIOUS STUDIES PROFESSOR 8.6 mg $ Given 09/10/2024 9:05 AM RELIGIOUS STUDIES PROFESSOR 8.6 mg $ Given 09/09/2024 8:15 AM RELIGIOUS STUDIES PROFESSOR 8.6 mg vitamin D3 (Cholecalciferol) 25 MCG (1000 UNITS) tablet 1,000 Units 1,000 Units, Oral, DAILY, First dose on 09/08/24 at 0900, Until Discontinued, 1000 units = 25 mcg $ Given 09/12/2024 8:42 AM RELIGIOUS STUDIES PROFESSOR 1,000 Unit s $ Given 09/11/2024 9:08 AM RELIGIOUS STUDIES PROFESSOR 1,000 Units $ Given 09/10/2024 9:04 AM RELIGIOUS STUDIES PROFESSOR 1,000 Units documented in this encounter Active and Recently Administered Medications Times are shown in RELIGIOUS STUDIES PROFESSOR. Scheduled Medication Order 09/10/2024 09/11/2024 09/12/2024 0.9% NaCl injection 3 mL(Linked Group 1) 3 mL, Intracatheter, EVERY 8 HOURS, First dose on 09/07/24 at 1715, Until Discontinued, Flush peripheral IV catheter with 3 mL of normal saline every 8 hours. 0526 (Not Administered - Provider: Freddie Knowles RN - Reason: Loss of Access)1641 ($ Given - Provider: Ashutosh Sr RN)2128 ($ Given - Provider: Freddie Knowles RN) 0907 ($ Given - Provider: Antony Johnson RN)1300 ($ Given - Provider: Antony Johnson RN)2010 (Not Administered - Provider: Annmarie Hargrove RN - Reason: Loss of Access) 0530 (Not Administered - Provider: Annmarie Hargrove RN - Reason: Patient sleeping) apixaban (Eliquis) tablet 2.5 mg 2.5 mg, Oral, 2 TIMES DAILY, First dose on Mon09/10/24 at 2100, Until Discontinued 2128 ($ Given - Provider: Freddie Knowles RN) 0908 ($ Given - Provider: Antony Johnson RN)2009 ($ Given - Provider: Annmarie Hargrove RN) 0843 ($ Given - Provider: Antony Johnson RN) ceFAZolin (Ancef) 2 g in sterile water (PF) 20 mL syringe (CANCELED) 2 g, Intravenous, EVERY 8 HOURS, First dose on Mon09/08/24 at 1800, Until Discontinued, Infuse over 3-5 minutes. Dilute vial with 20 ml solution for a final concentration of 100 mg/ml., Indication for anti-infective therapy: Documented infection, Site of anti-infective therapy: Urine/Genitourinary 0145 ($ Given - Provider: Freddie Knowles RN)1132 ($ Given - Provider: Ashutosh Sr RN)1946 ($ Given - Provider: Ashutosh Sr RN) 0251 ($ Given - Provider: Freddie Knowles RN)0908 ($ Given - Provider: Antony Johnson, RN) cephalexin (Keflex) capsule 500 mg 500 mg, Oral, 4 TIMES DAILY, 8 doses, First dose on Mon09/11/24 at 1300, Last dose on Mon09/13/24 at 0900, Indication for anti-infective therapy: Documented infection, Site of anti-infective therapy: Urine/Genitourinary 1300 ($ Given - Provider: Antony Johnson RN)1600 ($ Given - Provider: Antony Johnson, RN)2009 ($ Given - Provider: Annmarie Hargrove RN) 0843 ($ Given - Provider: Antony Johnson RN)1254 (Not Administered - Provider: Antony Johnson RN - Reason: See Comments - Comment: pt discharging) enoxaparin (Lovenox) injection 70 mg (CANCELED) 70 mg (rounded from 68.4 mg = 1 mg/kg ? 68.4 kg), Subcutaneous, EVERY 12 HOURS, 10 doses, First dose on 09/07/24 at 1845, Last dose on Reyna 09/12/24 at 0900, (for prefilled syringes) do not expel air bubble from the syringe prior to the injection Remind Patient to not rub injection site. Could cause hematoma. 0905 ($ Given - Provider: Ashutosh Sr RN) escitalopram (Lexapro) tablet 10 mg 10 mg, Oral, DAILY, First dose on 09/08/24 at 0900, Until Discontinued 905 ($ Given - Provider: Ashutosh Sr RN) 0908 ($ Given - Provider: Antony Johnson RN) 0842 ($ Given - Provider: Antony Johnson, RN) folic acid (Folvite) tablet 1 mg 1 mg, Oral, DAILY, First dose on 09/09/24 at 1715, Until Discontinued 904 ($ Given - Provider: Ashutosh Sr RN) 09 ($ Given - Provider: Antony Johnson RN) 0842 ($ Given - Provider: Antony Johnson, RN) levETIRAcetam (Keppra) tablet 500 mg 500 mg, Oral, 2 TIMES DAILY, First dose on 09/07/24 at 2100, Until Discontinued, Do not crush or chew because of TASTE only. 0905 ($ Given - Provider: Ashutosh Sr RN)2128 ($ Given - Provider: Freddie Knowles RN) 09 ($ Given - Provider: Antony Johnson, RN)2009 ($ Given - Provider: Annmarie Hargrove, NIKKIE) 0843 ($ Given - Provider: Antony Johnson, RN) LORazepam (Ativan) injection 0.5 mg (COMPLETED) 0.5 mg, Intravenous, ONCE, 1 dose, On Mon09/11/24 at 2215 2158 ($ Given - Provider: Annmarie Hargrove, NIKKIE) polyethylene glycol 3350 (Miralax) packet 17 g 17 g, Oral, DAILY, First dose on 09/08/24 at 0900, Until Discontinued, Mix in 8 ounces of water, juice, soda, coffee or tea prior to administration 09 ($ Given - Provider: Ashutosh Sr RN) 09 ($ Given - Provider: Antony Johnson RN) 0843 (Not Administered - Provider: Antony Johnson RN - Reason: See Comments - Comment: Patient had 3 BMs in the past 24 hours) QUEtiapine (SEROquel) tablet 12.5 mg(Linked Group 2) 12.5 mg, Oral, DAILY, First dose (after last modification) on 09/08/24 at 0900, Until Discontinued 903 ($ Given - Provider: Ashutosh Sr RN) 09 ($ Given - Provider: Antony Johnson RN) 0842 ($ Given - Provider: Antony Johnson, RN) QUEtiapine (SEROquel) tablet 25 mg(Linked Group 2) 25 mg, Oral, AT BEDTIME, First dose (after last modification) on 09/08/24 at 2100, Until Discontinued 2128 ($ Given - Provider: Freddie Knowles, RN) 2009 ($ Given - Provider: Annmarie Hargrove RN) senna (Senokot) tablet 8.6 mg 8.6 mg, Oral, DAILY, First dose on 09/08/24 at 0900, Until Discontinued 904 ($ Given - Provider: Ashutosh Sr RN) 09 ($ Given - Provider: Antony Johnson, RN) 0843 (Not Administered - Provider: Antony Johnson, RN - Reason: See Comments - Comment: Patient had 3 BMs in the last 24 hours) vitamin D3 (Cholecalciferol) 25 MCG (1000 UNITS) tablet 1,000 Units 1,000 Units, Oral, DAILY, First dose on 09/08/24 at 0900, Until Discontinued, 1000 units = 25 mcg 09 ($ Given - Provider: Ashutosh Sr RN) 09 ($ Given - Provider: Antony Johnson, RN) 0842 ($ Given - Provider: Antony Johnson, RN) PRN Medication Order 09/10/2024 09/11/2024 09/12/2024 0.9% NaCl injection 1-10 mL(Linked Group 1) 1-10 mL, Intracatheter, PRN, Other, peripheral line flush, Starting on 09/07/24 at 1635, Until Reyna 09/12/24 at 1413, Flush peripheral IV catheter with 1-10 mL of normal saline before and after medications and prn to clear blood from the line or to verify patency. acetaminophen (Tylenol) tablet 1,000 mg 1,000 mg, Oral, EVERY 8 HOURS PRN, Headache, pain, Starting on Mon09/09/24 at 1258, Until Reyna 09/12/24 at 1413, Patient preference for lesser PRN pain meds [...] first unless patient cannot tolerate oral intake haloperidol lactate (Haldol) injection 2 mg 2 mg, Intramuscular, EVERY 8 HOURS PRN, Agitation, Starting on Mon09/09/24 at 1217, Until Reyna 09/12/24 at 1413 1946 ($ Given - Provider: Ashutosh Sr, RN) 2010 ($ Given - Provider: Annmarie Hargrove RN) QUEtiapine (SEROquel) tablet 12.5 mg 12.5 mg, Oral, DAILY PRN, In the afternoon for agitation, Starting on Mon09/11/24 at 1551, Until Reyna 09/12/24 at 1413 1600 ($ Given - Provider: Antony Johnson RN) Linked Groups Order Group 1: SALINE LOCK, INSERT AND MAINTAIN (CANCELED) Routine, CONTINUOUS, Starting on 09/07/24 at 1645, Until Specified, New collection, Task Completed: Yes And 0.9% NaCl injection 3 mLJump to med 3 mL, Intracatheter, EVERY 8 HOURS, First dose on 09/07/24 at 1715, Until Discontinued, Flush peripheral IV catheter with 3 mL of normal saline every 8 hours. And 0.9% NaCl injection 1-10 mLJump to med 1-10 mL, Intracatheter, PRN, Other, peripheral line flush, Starting on 09/07/24 at 1635, Until Reyna 12/12/24 at 1413, Flush peripheral IV catheter with 1-10 mL of normal saline before and after medications and prn to clear blood from the line or to verify patency. Group 2: QUEtiapine (SEROquel) tablet 12.5 mgJump to med 12.5 mg, Oral, DAILY, First dose (after last modification) on 09/08/24 at 0900, Until Discontinued And QUEtiapine (SEROquel) tablet 25 mgJump to med 25 mg, Oral, AT BEDTIME, First dose (after last modification) on 09/08/24 at 2100, Until Discontinued documented in this encounter Care Teams Assistant Professor Of Mathematics Relationship Specialty Start Date End Date Bao Pierre MD PCP - General Internal Medicine 07/09/17 documented as of this encounter
--- OUTSIDE RECORDS SUMMARY | 2024-10-01 08:36 | XMS_ITS | Encounter Summary ---
Author Organization [facility] Address [address] [place] [address] Care Team Providers Care Assistant Store Manager Operations Name Role Phone Bao Pierre MD Primary Care Provider [phone] Reason for Referral * Evaluate & Treat (Routine) - Closed Specialty Diagnoses / Procedures Referred By Contac t Referred To Contact Neurology Diagnoses Observed seizure-like activity (HCC) Joey Nunn DO [address] [place] [address] [facility] [address] [place] [address] Referral ID Status Reason Start Date Expiration Date V isits Requested Visits Authorized [id number] Closed Discharge Follow-up 09/06/2024 09/06/2025 1 1 CH EXAMINER * Durable Medical Equipment (Routine) - Open Specialty Diagnoses / Procedures Referred By Ileanaac t Referred To Contact Diagnoses Orthostatic hypotension Joey Nunn DO [address] [place] [address] Referral ID Status Reason Start Date Expiration Date V isits Requested Visits Authorized [id number] Open Specialty Services Required 09/06/2024 09/06/2025 1 1 CH EXAMINER * Home Health Care (Routine) - Closed Specialty Diagnoses / Procedures Referred By Contac t Referred To Contact Home Health Services Diagnoses SDH (subdural hematoma) (HCC) Severe dementia with agitation, unspecified dementia type (HCC) Delirium Severe protein-calorie malnutrition (HCC) Impaired mobility and ADLs Amanda Dacosta MD [address] [place] [address] [facility] Scheduling [address] [place] [address] Referral ID Status Reason Start Date Expiration Date V isits Requested Visits Authorized [id number] Closed Specialty Services Required 09/02/2024 09/02/2025 999 999 CH EXAMINER Reason for Visit * Reason Comments Fall Pt BIBEMS from OSH s /p multiple falls as level 2 trauma. Per EMS, pt's son reports pt was more altered today and has been falling more over the past week. Baseline AOX2 with hx of dementia, AOX1 on arrival. Was given 5mg ativan at OSH, limited hx due to confusion. Found to have subdural at OSH. VSS for EMS. * Auth/Cert (Routine) Specialty Diagnoses / Procedures Referred By Contac t Referred To Contact Diagnoses SDH after frequent falls Referral ID Status Reason Start Date Expiration Date Visits Re quested Visits Authorized [id number] 1 1 Encounter Details Date Type Department Care Team (Latest Contact Info) Description 08/27/2024 10:53 PM BRANCH EXAMINER - 09/06/2024 11:53 AM BRANCH EXAMINER Hospital Encounter [facility] 8S ACUTE [address] [place] [id number] Alice Capps MD [address] [place] [address] Lincoln Rocha MD [address] [facility] [address] [place] [phone] [place] [address] [place] [address] [place] [address] Amanda Dacosta MD [address] [place] [address] Joey NunnDO [address] [place] [address] Trauma Discharge Disposition: Home Health Care c Social History Tobacco Use Types Packs/Day Years Used Date Smoking Tobacco: Former Pipe Q uit: 2014 Smokeless Tobacco: Former Tobacco Cessation:Counseling Given: Not Answered Alcohol Use Standard Drinks/Week Comments Yes 0 [...] care, and heating? Not very hard 08/28/2024 [facility] - Occupational Stress [...] any time in the past 12 m [facility], were you homeless or living in a half-way (including now)? No 08/28/2024 Sex and Gender Information Value Date Recorded Sex Assigned at Not on file Gender Identity Not on file Sexual Orientation Not on file documented as of this encounter Last Filed Vital Signs Vital Sign Reading Time Taken Comments Blood Pressure 115/64 09/06/2024 7:40 AM BRANCH EXAMINER Pulse 64 09/06/2024 7:40 AM BRANCH EXAMINER Temperature 36.3 ??C (97.4 ??F) 09/06/2024 7:40 AM CS T Respiratory Rate 16 09/06/2024 7:40 AM BRANCH EXAMINER Oxygen Saturation 98% 09/06/2024 7:40 AM BRANCH EXAMINER Inhaled Oxygen Concentration - - Weight 72.6 kg (160 lb) 08/28/2024 4:56 PM BRANCH EXAMINER Height 172.7 cm (5' 8 ) 08/28/2024 4:56 PM BRANCH EXAMINER Body Mass Index 24.33 08/28/2024 4:56 PM BRANCH EXAMINER documented in this encounter Functional Status Functional [...] Yes 08/28/2024 documented as of this encounter Discharge Summaries * Kat Garsia MD - 09/06/2024 11:53 AM CST [facility] INTERNAL MEDICINE DISCHARGE SUMMARY PATIENT: Frandy Alvares 89 year old male : 1935 ADMISSION INFORMATION ADMISSION DISCHARGE Date: 08/27/2024 Date: 09/07/2024 Admitting Physician Lincoln Rocha MD Discharge Physician: Joey Edouard, DO Present on Admission: Trauma Impaired mobility and ADLs Altered mental status Fall SDH (subdural hematoma) (HCC) Fall, subsequent encounter Contusion of right lung, initial encounter Closed fracture of one rib of right side, initial encounter Dementia (HCC) Observed seizure-like activity (HCC) Severe protein-calorie malnutrition (HCC) Orthostatic hypotension Discharge Diagnoses: Admission Condition: fair Discharged Condition: good Consults: Neurology, Neurosurgery, Geriatric Medicine, Nutrition HOSPITAL COURSE Hospital Course: Frandy Alvares is an 89 y/o M with PMH of dementia, multiple falls, HTN, CAD, OA, HLD, and actinic keratoses who presented for unwitnessed fall at his home in his bathroom with unknown LOC. 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 Pt admitted to trauma floor for further care. Started on analgesia, bronchial hygiene, and incentive spirometry. Per son, Pt had been increasingly confused over the prior week with multiple falls recently on ASA. Stated baseline AMS was A&Ox2. NSGY consulted for SDH and recommend no acute intervention. Geriatric medicine consulted and determined delirium in the setting of immobility, falls w/ head trauma, SDH, dementia, risk of constipation, risk of urinary retention, and sleep deprivation. Recommended deliriumprecautions, pain control, cont nightly quetiapine, and discontinued Hydroxyzine BID. On HOD #1, Ptwas witnessed to have tonic/clonic event, which was reported to have happened before by caregiver. Neurology was consulted who recommended routine EEG (showing increased tendency toward seizures, andmild/mod encephalopathy), MRI brain, and loaded Keppra and started maintenance Keppra 500mg BID. OnHOD #2, Pt was requested by trauma for IM to take over as primary. Hospital stay subsequently only complicated by persistent delirium involving frequent sun-downing with combative agitation. Psych consulted for delirium med recs. Pt placed on quetiapine BID, delirium precautions, and PRN quetiapinefor non-redirectable agitation. The patient's mentation improved while on seroquel. Of note, the patient had 2 witnessed syncopal episodes overnight, first while being helped from the bathroom by nursing and the second while on the toilet. Telemetry was unremarkable. Likely related to orthostatic hypotension with possible contributor of a vasovagal response while on the toilet. Note to PCP (e.g. vitals, labs, imaging, medication start/stop, etc. to follow): - monitor healing of L arm superficial phlebitis where prior IV was placed. - ensure f/u with neurology given new addition of keppra and suspected seizure - CTM orthostats and falls. Significant Diagnostic Studies: Labs this admission: CBC: Recent Labs Lab 08/29/248 08/27/24 2305 WBC 9.7 10.7 HGB 11.1* 10.9* HCT 33.4* 31.9* MCV 92.8 91.9 PLTCOUNT 191 203 BMP: Recent Labs Lab 08/29/2444708/27/24 2305 NA 137 136 POTASSIUM 3.7 4.5 CL 104 107 BUN 22 25 CREATININE 0.91 1.07 CALCIUM 8.6 8.6 Pertinent Microbiology: none Pending labs: none Imaging: (only include the pertinent ones) MRI Brain Wwo Contrast Result Date: 09/06/2024 [...] Kalyani Cortez MD on 09/06/2024 7:49 AM Discharge Exam: Vitals: BP 115/64 (BP Location: Left arm, Patient Position: Lying) Pulse 64 Temp 97.4 ??F (36.3 ??C) (Oral) Resp 16 Ht 1.727 m (5' 8 ) Wt 72.6 kg (160 lb) SpO2 98% Physical Exam: General: No acute distress, resting comfortably in bed. Cachectic. Neck: Supple. Trachea midline. Heart: RRR. No murmurs appreciated. Chest: Non-labored breathing. Normal breath sounds. Abdomen: Soft, non-tender, non-distended, bowel sounds present. Extremities: No lower extremity edema. L arm 2 cm area of induration with mild erythema improved from yesterday Neuro: No focal deficits noted DISCHARGE PLANNING Disposition: Relative's home Patient Instructions: Medication List START taking these medications Ensure Plus High Protein Liqd Take 1 container by mouth 3 times daily escitalopram 10 MG tablet Commonly known as: Lexapro Take 1 (one) tablet by mouth once daily levETIRAcetam 500 MG tablet Commonly known as: [...] mouth once daily CONTINUE taking these medications finasteride 5 MG tablet Commonly known as: Proscar Hair Skin and Nails Formula Tabs Vitamin D (Cholecalciferol) 25 MCG (1000 UT) Caps Where to Get Your Medications These medications were sent to [facility] [address] [address] escitalopram 10 MG tablet levETIRAcetam 500 MG tablet QUEtiapine 25 MG tablet You can get these medications from any pharmacy You don't need a prescription for these medications Ensure Plus High Protein Liqd Information about where to get these medications is not yet available Ask your nurse or doctor about these medications polyethylene glycol 3350 17 g packet sennosides 8.6 MG tablet Discharge Instructions A Note From Your Doctors: Dear Mr. Alvares and caregivers, You were admitted to the hospital for altered mental status resulting in falls at home. While you were in the hospital, you had symptoms that looked like a seizure so the neurologists started you on the anti-seizure medication, Keppra. Please continue taking this medication as directed. The neurology clinic will be calling to schedule a follow-up appointment. Additionally, the medications that help with mentation were changed. You will now take Seroquel 25 mg by mouth in the morning and 12.5 mgby mouth at bedtime. You were also started on a medication to help with mood called Ecitalopram. Please take as prescribed. While you were in the hospital, it was also found that you have orthostatic hypotension which means that your blood pressure drops when you change from a lying to sitting position or a sitting to standing position. Symptoms of this can be light-headedness and even loss of consciousness for a brief period. Please continue to monitor and update your primary care doctor with any symptoms. Additionally, do not ambulate unassisted, especially at night. Please notify your doctor if you develop new or concerning symptoms including but not limited to - Dizziness - Weakness in arms/legs - Fever of 101??F or higher - Shaking chills - Intractable nausea and vomiting - Severe headache - Confusion/altered mental status - Seizures (convulsions) If you are unable to reach your primary provider, please go to the nearest emergency room or call EMS ([phone]). MEDICATIONS: A number of changes have been made to your medications as detailed below: Medication List START taking these medications Ensure Plus High Protein Liqd Take 1 container by mouth 3 times daily ASK your doctor about these medications alfuzosin CR 24hr 10 MG tablet Commonly known as: Uroxatral aspirin EC 81 MG tablet Commonly known as: Ecotrin FIBER PO finasteride 5 MG tablet Commonly known as: Proscar GLUCOSAMINE CHONDROITIN COMPLX PO Hair Skin and Nails Formula Tabs hydrOXYzine HCl 10 MG tablet Commonly known as: Atarax ibuprofen 600 MG tablet Commonly known as: Motrin ingenol 0.015 % gel Commonly known as: Picato Apply to affected area once daily For actinic keratosis on the Forehead and your hair line Use for 3 days. lovastatin 20 MG tablet Commonly known as: Mevacor metoprolol succinate XL 24hr 25 MG tablet Commonly known as: Toprol XL PREVAGEN PO Vitamin D (Cholecalciferol) 25 MCG (1000 UT) Caps Where to Get Your Medications You can get these medications from any pharmacy You don't need a prescription for these medications Ensure Plus High Protein Liqd If you have any questions about your medications, please be sure to ask the pharmacy when you belt picker your prescription. You may also call your primary provider to ask if you should be taking your medication. FOLLOW-UP: It is important that you follow-up with all appointments that have been made on your behalf. These appointments include: Future Appointments Wednesday October 09, 2024 11:30 AM (Arrive by 11:15 AM) Appointment with Katharine Bar at [facility] ([phone]) [address] [place] [phone] Tuesday November 19, 2024 8:30 AM (Arrive by 8:15 AM) Appointment with Patricia Jarvis at [facility] ([phone]) [address] [place] [phone] If a follow-up with your primary care provider has not been scheduled, please schedule an appointment to follow-up on your hospitalization. If there is a conflict, please call the clinic ahead of time and reschedule the appointment. Regards, Internal Medicine Department [address] [address] Signed: Kat Garsia MD Internal Medicine Resident [facility] 09/07/2024 3:15 PM CH EXAMINER Associated attestation - Joey Nunn DO - 09/07/2024 3:32 PM BRANCH EXAMINER I have seen and examined the patient with the resident and I agree with the findings and plan of care as documented by Dr. Garsia. Principal Problem: Fall Active Problems: Trauma Impaired mobility and ADLs Altered mental status SDH (subdural hematoma) (HCC) Fall, subsequent encounter Contusion of right lung, initial encounter Closed fracture of one rib of right side, initial encounter Dementia (HCC) Delirium Observed seizure-like activity (HCC) Severe protein-calorie malnutrition (HCC) Orthostatic hypotension Patient discharged on 09/06/2024. >35 minutes were spent in discharge planning. Date of Service: 09/06/2024 Joey Nunn DO documented in this encounter Discharge Instructions * Discharge Instructions* Kat Garsia MD - 09/05/2024 10:58 AM BRANCH EXAMINER A Note From Your Doctors: Dear Mr. Alvares and caregivers, You were admitted to the hospital for altered mental status resulting in falls at home. While you were in the hospital, you had symptoms that looked like a seizure so the neurologists started you on the anti-seizure medication, Keppra. Please continue taking this medication as directed. The neurology clinic will be calling to schedule a follow-up appointment. Additionally, the medications that help with mentation were changed. You will now take Seroquel 25 mg by mouth in the morning and 12.5 mgby mouth at bedtime. You were also started on a medication to help with mood called Ecitalopram. Please take as prescribed. While you were in the hospital, it was also found that you have orthostatic hypotension which means that your blood pressure drops when you change from a lying to sitting position or a sitting to standing position. Symptoms of this can be light-headedness and even loss of consciousness for a brief period. Please continue to monitor and update your primary care doctor with any symptoms. Additionally, do not ambulate unassisted, especially at night. Please notify your doctor if you develop new or concerning symptoms including but not limited to - Dizziness - Weakness in arms/legs - Fever of 101??F or higher - Shaking chills - Intractable nausea and vomiting - Severe headache - Confusion/altered mental status - Seizures (convulsions) If you are unable to reach your primary provider, please go to the nearest emergency room or call EMS ([phone]). MEDICATIONS: A number of changes have been made to your medications as detailed below: Medication List START taking these medications Ensure Plus High Protein Liqd Take 1 container by mouth 3 times daily ASK your doctor about these medications alfuzosin CR 24hr 10 MG tablet Commonly known as: Uroxatral aspirin EC 81 MG tablet Commonly known as: Ecotrin FIBER PO finasteride 5 MG tablet Commonly known as: Proscar GLUCOSAMINE CHONDROITIN COMPLX PO Hair Skin and Nails Formula Tabs hydrOXYzine HCl 10 MG tablet Commonly known as: Atarax ibuprofen 600 MG tablet Commonly known as: Motrin ingenol 0.015 % gel Commonly known as: Picato Apply to affected area once daily For actinic keratosis on the Forehead and your hair line Use for 3 days. lovastatin 20 MG tablet Commonly known as: Mevacor metoprolol succinate XL 24hr 25 MG tablet Commonly known as: Toprol XL PREVAGEN PO Vitamin D (Cholecalciferol) 25 MCG (1000 UT) Caps Where to Get Your Medications You can get these medications from any pharmacy You don't need a prescription for these medications Ensure Plus High Protein Liqd If you have any questions about your medications, please be sure to ask the pharmacy when you belt picker your prescription. You may also call your primary provider to ask if you should be taking your medication. FOLLOW-UP: It is important that you follow-up with all appointments that have been made on your behalf. These appointments include: Future Appointments Wednesday October 09, 2024 11:30 AM (Arrive by 11:15 AM) Appointment with Katharine Bar at [facility] ([phone]) [address] [place] [phone] Tuesday November 19, 2024 8:30 AM (Arrive by 8:15 AM) Appointment with Patricia Jarvis at [facility] ([phone]) [address] [place] [phone] If a follow-up with your primary care provider has not been scheduled, please schedule an appointment to follow-up on your hospitalization. If there is a conflict, please call the clinic ahead of time and reschedule the appointment. Regards, Internal Medicine Department [address] [address] CH EXAMINER documented in this encounter Medications at Time of Discharge Medication Sig Dispensed Refills Start Date End Date escitalopram (Lexapro) 10 MG tablet Take 1 (one) tablet by mouth once daily 30 tablet 2 09/06/2024 levETIRAcetam (Keppra) 500 MG tablet Take 1 [...] (one) tablet by mouth once daily 09/06/2024 finasteride (PROSCAR) 5 MG tablet Take 1 (one) tablet by mouth once daily 09/09/2024 Multiple Vitamins-Minerals (HAIR SKIN AND NAILS FORMULA) TABS Take 2 tablets by mouth once daily 09/18/2024 QUEtiapine (SEROquel) 25 MG tabletIndications:Agita tion Take 1 (one) tablet by mouth every morning AND 0.5 (one-half) tablet at bedtime. May also take 0.5 (one-half) tablet 3 times daily as needed. Reasons: Agitation. 90 tablet 2 09/06/2024 09/23/2024 Vitamin D, Cholecalciferol, 1000 UNITS CAPS Take 1 (one) capsule by mouth once daily 09/18/2024 documented as of this encounter Progress Notes * Carmel Roberts, PT - 09/06/2024 11:15 AM CST [facility] Physical Medicine and Rehabilitation Physical Therapy Progress Note Patient: Frandy Alvares [facility] Record Number: [id number] Date of : 1935 Age: [age] year old PPE worn by staff: gloves PPE worn by patient: gown - patient, clean;socks - clean Co-Treat with OT Recommendations: Discharge PT Discharge Recommendations: Patient would benefit from multidisciplinary therapy SUBJECTIVE: Subjective: Patient is willing to work with PT Pain Assessment: Pain Assessment Pain Scale/Observation: No/denies pain Pain Rating Score #1: 0 Sedation Level: 1-Awake and alert PRECAUTIONS: Weight Bearing Status: (No restrictions) Activity Level: Activity as Tolerated OBJECTIVE: At start of therapy session, patient found in bed and with no alarm General Appearance: pt in NAD Vitals: (*Assess the 3 levels of oxygen saturations both for room air and 02 unless rest on room air is 88% or less). Supine BP: 129/57 (80) HR: 67 Sp02 Sp02 -- Room Air EOB BP: 131/93 (107) HR: 77 Sp02 -- Room Air After standing BP: 87/56 (65) HR: 68 Sp02 -- Room Air After transfer to bedside chair BP: 83/57 (68) HR: 74 Sp02 Sp02 -- Room Air Observations: Patient with no reports of dizziness with sup <> sit transfer. When pt stood and attempted BP pt reports not feeling well and was returned to sitting. To note, increased time spent when changing positions to improve orthostasis. After prolonged rest break pt able to transfer to chair. Ambulation deferred due to significant orthostasis. Mental Status/Cognition: Level of Consciousness-Adult: (alert) Orientation Level: Disoriented to Person;Disoriented to Situation;Disoriented to Time Cognition: Confused Attention Span: Attends with cues to redirect Memory: Decreased short term memory;Decreased jail memory;Decreased recall of recent events Following Commands: Follows one step commands with repetition/cues Safety Judgement: Decreased awareness of need for safety Awareness of Errors: Decreased awareness of deficits Problem Solving: Assistance required to implement solutions Mobility: A gait belt and non-slip socks were used for all out of bed activity this date. Bed Mobility: Supine to Sit: Minimal Assistance with HOB in semi-fowlers position Sit to Supine: Activity Does Not Occur (Pt left upright in chair) Transfers: Sit to Stand: Stand By Assist;Requires Verbal Cues for Safety Stand to Sit: Stand By Assist;Requires Verbal Cues for Safety Bed to Chair: Stand By Assist;Requires Physical Cues for Safety Transfer Device: Gait belt;Walker-2 Wheeled Balance: Balance Scales/Tests Used: Sitting: Static/Dynamic;Standing: Static/Dynamic Sitting - Static: Good Sitting - Dynamic: Good - Standing - Static: Fair +;With Both Upper Extremity's Support Standing - Dynamic: Fair;With Both Upper Extremity's Support ACTIVITY TOLERANCE: Patient's activity tolerance: fair. TREATMENT/INTERVENTIONS: bed mobility training, transfer training, gait training, monitoring of vitals, and cognitive stimulation Modified Bruce: Current Modified Bruce Score: 4 AM-PAC 6 Clicks Mobility Raw Score:: 18 EDUCATION: While performing PT, Patient was instructed in:functional mobility training, cognitive retraining, energy conservation, safety awareness/fall precautions , discharge planning, use of call light Presented to patient who demonstrates Poor understanding of instructions given. ASSESSMENT: Patient would benefit from additional Physical Therapy sessions to achieve the following functionalgoals to enhance independence. Short Term Goals: Goal Formation Patient unable to participate in goal formulation Patient will perform bed mobility with minimal assist Patient will transfer sit to/from stand with minimal assist Patient will transfer bed to/from chair with minimal assist Patient will ambulate 50 feet with minimal assist [employer]ing [employer] Goal(s): Patient to discharge to appropriate next level of inpatient care. INFORMED CONSENT TO TREATMENT: Plan of care including recommended therapy, goals and frequency, discussed with patient who understands and agrees to proceed. Equipment Issued: gait belt Plan: Patient continues to benefit from skilled therapy services. If patient is discharged from the facility, this note serves as a discharge summary if further physical therapy visits did not occur. Refer to filed flowsheet for further details. Following therapy session, patient left in patient bedside chair , with chair alarm on and positioned under patient's buttocks , with RN in room, with fall mats in place. CH EXAMINER * Zuleika Carvalho RN - 09/06/2024 9:22 AM CST SITUATIONAL AWARENESS NOTE PATIENT'S NAME: Frandy Alvares BIRTHDATE: 1935 CODE STATUS: DNR - IF PULSELESS NO CPR, NO SHOCK PRIMARY CONCERN FOR SITUATIONAL AWARENESS: Rapid Response within the past 48 hours OBSERVATIONS: MANAGER PROCESS IMPROVEMENT completed morning rounds. Pt seen sitting up in bed eating breakfast. No distressnoted and no complaints from pt. party plan sales unit advisor had no concerns and stated pt is potentially up for discharge today. Please reach out to MANAGER PROCESS IMPROVEMENT for any new concerns. PLAN: Continue current plan as detailed in daily progress note. The patient safety concern has been resolved and this will serve as the last note. OUTCOME: Remains in current room ESCALATION PLAN: If patient begins to clinically deteriorate or there are any significant changes please call a rapid response. Plan discussed with - nursing and patient. Everyone is in agreement with the plan. 5 minutes spent on patient assessment, review of relevant data, and documentation. BEL * Amanda Joya COTA - 09/06/2024 9:03 AM CST [facility] Physical Medicine and Rehabilitation Occupational Therapy Progress Note Patient: Frandy Alvares Med Record Number: [id number] Date of : 1935 Age: [age] year old PPE worn by staff: gloves PPE worn by patient: gown - patient, clean;socks - clean Cotx with PT (to attempt obtaining orthostatic vitals) Recommendations: Discharge OT Discharge Recommendations: Patient would benefit from ongoing therapy with home health Nurse contacted regarding patient status and/or discharge plan. Activity Level: as tolerated PRECAUTIONS: Weight Bearing Status: (no restrictions noted) SUBJECTIVE: Subjective: (pt agreeable to therapy) Pain Assessment: Pain Assessment Pain Scale/Observation: No/denies pain Pain Rating Score #1: 0 Sedation Level: 1-Awake and alert OBJECTIVE: At start of therapy session, patient found in bed and with no alarm General Appearance: pt in NAD Vitals: (*Assess the 3 levels of oxygen saturations both for room air and 02 unless rest on room air is 88% or less). Supine BP: 129/57 (80) HR: 67 Sp02 Sp02 -- Room Air EOB BP: 131/93 (107) HR: 77 Sp02 -- Room Air After standing BP: 87/56 (65) HR: 68 Sp02 -- Room Air After transfer to bedside chair BP: 83/57 (68) HR: 74 Sp02 Sp02 -- Room Air Observations: Patient with no reports of dizziness with sup <> sit transfer. When pt stood and attempted BP pt reports not feeling well and was returned to sitting. To note, increased time spent when changing positions to improve orthostasis. After prolonged rest break pt able to transfer to chair. Ambulation deferred due to significant orthostasis. Mental Status/Cognition: Level of Consciousness-Adult: (alert) Orientation Level: Disoriented to Place;Disoriented to Time;Disoriented to Situation (oriented to self) Cognition: Confused;Impulsive Attention Span: Attends with cues to redirect Memory: Decreased recall of recent events;Decreased short term memory Following Commands: Follows one step commands with repetition/cues Safety Judgement: Decreased awareness of need for safety Awareness of Errors: Decreased awareness of deficits Problem Solving: Assistance required to generate solutions;Assistance required to identify errors made;Assistance required to implement solutions Mobility: a gait belt and non-slip socks were used for all out of bed activity this date. Bed Mobility: Rolling: Stand By Assist Supine to Sit: Stand By Assist with HOB in semi-fowlers position Sit to Supine: Activity Does Not Occur (pt in bedside chair following session) Transfers: Sit to Stand: Minimal Assistance;Requires Verbal Cues for Safety Stand to Sit: Minimal Assistance;Requires Verbal Cues for Safety Bed to Chair: Minimal Assistance to Left Type of Transfer: (stand step, ~2-3 steps) Transfer Device: Gait belt;Walker-2 Wheeled Balance: Balance Scales/Tests Used: Sitting: Static/Dynamic;Standing: Static/Dynamic Sitting - Static: Good - Sitting - Dynamic: Fair + Standing - Static: Fair;With Both Upper Extremity's Support Standing - Dynamic: Fair -;With Both Upper Extremity's Support Activities of Daily Living: Oral Facial Hygiene: Minimal Assistance (wash face seated in bedside chair) Upper Body Dressing: Minimal Assistance (to adjust gown) Lower Body Dressing: Maximal Assistance (to adjust socks) ACTIVITY TOLERANCE: Modified [place]: Current Modified [place] Score: 4 AM-PAC 6 Clicks Daily Activity Raw Score:: 14 TREATMENT/INTERVENTIONS: ADL training Functional transfer training Bed mobility Safety awareness EDUCATION: While performing OT, Patient was instructed in:functional mobility training, self-care training, safety awareness/fall precautions , use of call light Presented to patient who demonstrates Good understanding of instructions given. INFORMED CONSENT TO TREATMENT: Plan of care including recommended therapy, goals and frequency, discussed with patient who understands and agrees to proceed. ASSESSMENT: Patient continues to benefit from skilled Occupational Therapy to achieve the following functional goals. Short Term Goals: Goal Formation With patient Patient will perform grooming standing at sink and with stand by assist Patient will transfer to standard toilet with stand by assist Patient will transfer sit to stand with stand by assist Patient will perform bed to chair with stand by assist [facility] Goal(s): Patient to be baseline with functional mobility and self-care and should discharge to prior level of care. Plan: Patient continues to benefit from skilled therapy services., Continue with goals as established. If patient is discharged from the facility, this note serves as a discharge summary if further occupational therapy visits did not occur. Refer to filed flowsheet for further details. Following therapy session, patient left in patient bedside chair , with chair alarm on and positioned under patient's buttocks , with RN in room, with fall mats in place. CH EXAMINER * Luis Manuel Elkins RN - 09/05/2024 10:50 PM CST SITUATIONAL AWARENESS NOTE PATIENT'S NAME: Frandy Alvares BIRTHDATE: 1935 CODE STATUS: DNR - IF PULSELESS NO CPR, NO SHOCK PRIMARY CONCERN FOR SITUATIONAL AWARENESS: Rapid Response within the past 48 hours OBSERVATIONS: Patient resting comfortably. VSS. No concerns brought forward during evening rounds. MANAGER PROCESS IMPROVEMENT remains available for any future needs. PLAN: Continue current plan as detailed in daily progress note. OUTCOME: Remains in current room ESCALATION PLAN: If patient begins to clinically deteriorate or there are any significant changes please call a rapid response. Plan discussed with - nursing and patient. Everyone is in agreement with the plan. 10 minutes spent on patient assessment, review of relevant data, and documentation. CH EXAMINER * Amanda Joya COTA - 09/05/2024 2:31 PM CST [facility] Physical Medicine and Rehabilitation Occupational Therapy Progress Note Patient: Frandy Alvares Med Record Number: [id number] Date of : 1935 Age: [age] year old PPE worn by staff: gloves PPE worn by patient: gown - patient, clean;socks - clean Tech: Chika Recommendations: Discharge OT Discharge Recommendations: Patient would benefit from ongoing therapy with home health Nurse contacted regarding patient status and/or discharge plan. Activity Level: as tolerated PRECAUTIONS: Weight Bearing Status: (no restrictions noted) SUBJECTIVE: Subjective: (pt agreeable to therapy) Pain Assessment: Pain Assessment Pain Scale/Observation: No/denies pain Pain Rating Score #1: 0 Sedation Level: 1-Awake and alert OBJECTIVE: At start of therapy session, patient found in bed and with no alarm General Appearance: pt in NAD Vitals: (*Assess the 3 levels of oxygen saturations both for room air and 02 unless rest on room air is 88% or less). Rest BP: 105/85 HR: 65 Sp02 Sp02 98% Room Air Ex/Gait/Activity Without 02 BP: 118/62 (80) HR: -- Sp02 -- Room Air Post Activity BP: 123/77 (88) HR: 69 Sp02 Sp02 100% Room Air Observations: pt had no adverse signs or symptoms. VSS throughout session. No signs of syncope whentransferring from EOB to bedside chair. Attempted to obtain BP while standing, unable to read. Mental Status/Cognition: Level of Consciousness-Adult: (alert) Orientation Level: Disoriented to Place;Disoriented to Time;Disoriented to Situation (oriented to self) Cognition: Confused;Impulsive Attention Span: Attends with cues to redirect Memory: Decreased recall of recent events;Decreased short term memory Following Commands: Follows one step commands with repetition/cues Safety Judgement: Decreased awareness of need for safety Awareness of Errors: Decreased awareness of deficits Problem Solving: Assistance required to generate solutions;Assistance required to identify errors made;Assistance required to implement solutions Mobility: a gait belt and non-slip socks were used for all out of bed activity this date. Bed Mobility: Rolling: Stand By Assist Supine to Sit: Stand By Assist with HOB in semi-fowlers position Sit to Supine: Activity Does Not Occur (pt in bedside chair following session) Transfers: Sit to Stand: Minimal Assistance;Requires Verbal Cues for Safety Stand to Sit: Minimal Assistance;Requires Verbal Cues for Safety Bed to Chair: Minimal Assistance to Left Type of Transfer: (stand step, ~2-3 steps) Transfer Device: Gait belt;Walker-2 Wheeled Balance: Balance Scales/Tests Used: Sitting: Static/Dynamic;Standing: Static/Dynamic Sitting - Static: Good - Sitting - Dynamic: Fair + Standing - Static: Fair;With Both Upper Extremity's Support Standing - Dynamic: Fair -;With Both Upper Extremity's Support Activities of Daily Living: Oral Facial Hygiene: Minimal Assistance (wash face seated in bedside chair) Upper Body Dressing: Minimal Assistance (to adjust gown) Lower Body Dressing: Maximal Assistance (to adjust socks) ACTIVITY TOLERANCE: Modified [place]: Current Modified [place] Score: 4 AM-PAC 6 Clicks Daily Activity Raw Score:: 14 TREATMENT/INTERVENTIONS: ADL training Functional transfer training Bed mobility Safety awareness EDUCATION: While performing OT, Patient was instructed in:functional mobility training, self-care training, safety awareness/fall precautions , use of call light Presented to patient who demonstrates Questionable understanding of instructions given. INFORMED CONSENT TO TREATMENT: Plan of care including recommended therapy, goals and frequency, discussed with patient who understands and agrees to proceed. ASSESSMENT: Patient continues to benefit from skilled Occupational Therapy to achieve the following functional goals. 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 Plan: Patient continues to benefit from skilled therapy services., Continue with goals as established. If patient is discharged from the facility, this note serves as a discharge summary if further occupational therapy visits did not occur. Refer to filed flowsheet for further details. Following therapy session, patient left in patient bedside chair , with chair alarm on and positioned under patient's buttocks , with call light within reach, with RN in room, with RNVandana aware,and at home assembler plastic boat in room. CH EXAMINER * Mike Guerrero RN - 09/05/2024 9:11 AM CST SITUATIONAL AWARENESS NOTE PATIENT'S NAME: Frandy Alvares BIRTHDATE: 1935 CODE STATUS: DNR - IF PULSELESS NO CPR, NO SHOCK PRIMARY CONCERN FOR SITUATIONAL AWARENESS: Watch List Rapid Response within the past 48 hours OBSERVATIONS: Patient resting in bed, no distress noted. party plan sales unit advisor and primary RN to encourage thatpatient not get out of bed and if he does assistance is needed. Chart reviewed. PLAN: Continue current plan as detailed in daily progress note. OUTCOME: Remains in current room ESCALATION PLAN: If patient begins to clinically deteriorate or there are any significant changes please call a rapid response. Plan discussed with - nursing and patient. Everyone is in agreement with the plan. 10 minutes spent on patient assessment, review of relevant data, and documentation. CH EXAMINER * Kat Garsia MD - 09/05/2024 9:07 AM CST [facility] INTERNAL MEDICINE PROGRESS NOTE Patient: Frandy Alvares Sex: male Age: [age] year old Date of : 1935 Date of Admission: 08/27/2024 Date: 09/05/2024 LOS: 8 SUBJECTIVE Interval History: - Rapid team called for syncopal episode (LOC ~1 min) overnight while the patient was on the toilet. Pt woke to sternal rub. Nurse present and denied fall or head trauma. Pt was safely assisted back to bed. - No acute distress during examination - Son endorsed desire for the patient to stay in the hospital for observation given subsequent syncopal episodes. Hospital Course: Frandy Alvares is an 89 y/o M with PMH of dementia (on donepezil), multiple falls, HTN, CAD, OA, HLD, and actinic keratoses who presented for unwitnessed fall at his home in his bathroom with unknownLOC. Pt initially presented to [facility] with increased AMS, received 5mg Ativan, and was transferred for further eval. Pt arrived to [facility] as a trauma with finding on imaging of chronic SDH (b/l frontal lobes) and 11th post rib Fx. Pt admitted to trauma floor for further care. Started on analgesia, bronchial hygiene, and incentive spirometry. Per son, Pt had been increasingly confused over the prior week with multiple falls recently on ASA. Stated baseline AMS was A&Ox2. NSGY consulted for SDH and recommend no acute intervention. Geriatric medicine consulted and determined delirium in the setting of immobility, falls w/ head trauma, SDH, dementia, risk of constipation, risk of urinary retention, and sleep deprivation. Recommended delirium precautions, pain control, cont nightly quetiapine, and discontinued Hydroxyzine BID. On HOD #1, Pt was witnessed to have tonic/clonic event, which was reported to have happened before by caregiver. Neurology was consulted who recommended routine EEG (showing increased tendency toward seizures, and mild/mod encephalopathy), MRI brain, and loaded Keppra and started maintenance Keppra 500mg BID. On HOD #2, Pt was requested by trauma for IM to take over as primary. Hospital stay subsequently only complicated by persistent delirium involving frequent sun-downing with combative agitation requiring bilat wrist/lap belt restraints for patient safety. Psych consulted for delirium med recs. Pt placed on quetiapine BID, delirium precautions, and PRN quetiapine for non-redirectable agitation. OBJECTIVE Vital Signs: Vitals: 09/04/24 2103 09/05/24 0048 09/05/24 0427 09/05/24 0753 BP: 126/63 130/64 151/67 Pulse: 61 68 59 61 Resp: 18 18 18 Temp: 98.2 ??F (36.8 ??C) 98.2 ??F (36.8 ??C) 98.2 ??F (36.8 ??C) SpO2: 99% 100% 98% 100% Weight: Height: Temp Min: 96.4 ??F (35.8 ??C) Max: 99.2 ??F (37.3 ??C), Pulse Min: 53 Max: 120, Resp Min: 11 Max: 28, BP Min: 98/51 Max: 190/86 Intake & Output: In: 600 [P.O.:600] Out: 651 [Urine:650] Physical Exam: General: No acute distress, resting comfortably in bed. Cachectic. Neck: Supple. Trachea midline. Heart: RRR. No murmurs appreciated. Chest: Non-labored breathing. Normal breath sounds. Abdomen: Soft, non-tender, non-distended, bowel sounds present. Extremities: No lower extremity edema. Neuro: No focal deficits noted. Intake/Output Summary (Last 24 hours) at 09/05/2024 1334 Last data filed at 09/05/2024 0800 Gross per 24 hour Intake 450 ml Output 651 ml Net -201 ml Current Medications: Scheduled: 0.9% NaCl 3 mL Intracatheter q8h acetaminophen 1,000 mg Oral TID [START ON 09/06/2024] enoxaparin 40 mg Subcutaneous QDAY escitalopram 10 mg Oral QDAY finasteride 5 mg Oral QDAY gadobutrol Intravenous Contrast - Once levETIRAcetam 500 mg Oral BID lidocaine 1 patch Transdermal QDAY melatonin 3 mg Oral AT BEDTIME polyethylene glycol 3350 17 g Oral QDAY QUEtiapine 12.5 mg Oral AT BEDTIME QUEtiapine 25 mg Oral QAM senna 8.6 mg Oral QDAY Continuous: PRN: SALINE LOCK, INSERT AND MAINTAIN AND 0.9% NaCl AND 0.9% NaCl albuterol-ipratropium LORazepam QUEtiapine Significant Lab Results: No results found for this or any previous visit (from the past 24 hour(s)). Microbiology: Microbiology Results (Displays last 21 days for this encounter ONLY) Procedure Component Value - Date/Time SARS-COV-2 (COVID-19) RAPID [[id number]] (Normal) Collected: 08/28/24 1105 Lab Status: Final result Specimen: Microbiology from Nasopharyngeal Updated: 08/28/24 1149 COVID-19 PCR Not detected Narrative: The [employer] Xpert Xpress SARS-COV-2 has been authorized by [...] EUA assay are available upon request. Imaging & Studies: None new. ASSESSMENT & PLAN Fall (POA: Yes) Trauma (POA: Yes) Impaired mobility and ADLs (POA: Yes) Altered mental status (POA: Yes) SDH (subdural hematoma) (HCC) (POA: Yes) Fall, subsequent encounter (POA: Yes) Contusion of right lung, initial encounter (POA: Yes) Closed fracture of one rib of right side, initial encounter (POA: Yes) Dementia (HCC) (POA: Yes) Delirium (POA: No) Observed seizure-like activity (HCC) (POA: Yes) Severe protein-calorie malnutrition (HCC) (POA: Yes) Orthostatic hypotension (POA: Unknown) Frandy Alvares is an 89 y/o M with PMH of dementia, multiple falls, HTN, CAD, OA, HLD, and actinic keratoses who presented for unwitnessed fall at his home in his bathroom with unknown LOC. Possible etiologies include seizure vs orthostatic hypotension resulting in syncopal episode. #Recurrent Falls #Orthostatic hypotension #Syncopal episodes - Witnessed seizure-like activity 08/29 and similar Hx per caregiver - several risk factors for seizure (dementia, head trauma, chr SDH) vs likely mechanical falls in the setting of dementia and poor functional status vs syncope - Routine EEG (08/29): Increased tendency toward seizures and mild/moderate encephalopathy - Pt had ~10 second syncopal episode when transferring to restroom overnight 09/03. Orthostats positive. - Second witnessed syncopal episode on 09/04 while on the toilet. Nursing present. No injuries sustained. LOC ~ 1 minute. Could be a combination of orthostatic and vasovagal response. - PO intake 50-75% PLAN: - Neurology consult - s/p Keppra load and Keppra 500mg PO BID - f/u MRI brain - Trial compression stockings for orthostatic hypotension - Was planning to discharge home with son today but will monitor overnight given subsequent syncopal episodes #Delirium #Dementia - resolving delirium. Potential risks for delirium include possible seizure, falls with head trauma, SDH, demenita, risk of constipation, risk of urinary retention, sleep deprivation - Agitation, wandering, A&Ox2 at baseline PLAN: - Delirium precautions - Avoid sedative hypnotics/anticholinergics - Allow family at bedside as much as possible - Avoid restrictions/restraints in general - Allow OOB to chair mobilization - PT/OT - Daily Miralax - Monitor for retention. Bladder scan post void. Straight cath for residuals >350ml - Optimize nutritional status. Ensure supplements TID between meals - Address unrecognized pain. Tylenol 1000mg PO TID - Psychiatry consult for med recs - Initially rec d/c BID quetiapine and start trazodone 25mg PO TID with Zyprexa 2.5mg sublingual q6H PRN. Pt had worsening mentation with this regimen. - Updated recs now restarting quetiapine 25mg qAM and 12.5mg nightly with additional PRN [id number] for non-redirectable agitation #Severe protein malnutrition - Nutrition - Ensure BID w/ meals and Magic cup daily #MDD with anxiety: continue Lexapro 10mg daily. #BPH: Cont finasteride. Held alfuzosin #Discharge - Neurology f/u - Compression stockings, abdominal binder Code: DNR Diet: Regular Electrolytes: Replete PRN PPx: Lovenox Access: PIV Dispo: Home with HH and private pay caregiver tomorrow pending family readiness The above assessment and plan will be discussed with the attending. This note is not final until attested by attending physician. Kat Garsia MD Internal Medicine, PGY-1 [facility] 09/05/2024 1:34 PM CH EXAMINER Associated attestation - Joey Nunn DO - 09/05/2024 2:31 PM BRANCH EXAMINER I have seen and examined the patient with the resident and I agree with the findings and plan of care as documented by Dr. Garsia. Principal Problem: Fall Active Problems: Trauma Impaired mobility and ADLs Altered mental status SDH (subdural hematoma) (HCC) Fall, subsequent encounter Contusion of right lung, initial encounter Closed fracture of one rib of right side, initial encounter Dementia (HCC) Delirium Observed seizure-like activity (HCC) Severe protein-calorie malnutrition (HCC) Orthostatic hypotension Date of Service: 09/05/2024 Joey Nunn DO * Alma Felix - 09/05/2024 1:52 AM CST Rapid Response Direct Support Professional Caregiver received an ASCOM alert for a rapid response on this Pt. Direct Support Professional Caregiver responded to the unit at her earliest opportunity. Pt was being attended to by the rapid response team. No family was present. Direct Support Professional Caregiver did not enter room, as Pt did not appear to need pastoral care at this time and it was a multi-patient room with other pt's sleeping. Direct Support Professional Caregiver remained in hallway to offer any support to staff that was needed. Pastoral care is available 24/04. Please call [phone] if requested or needed. [phone] CH EXAMINER * Shayy Sapp RN - 09/05/2024 1:09 AM CST SITUATIONAL AWARENESS NOTE PATIENT'S NAME: Frandy Alvares BIRTHDATE: 1935 CODE STATUS: DNR - IF PULSELESS NO CPR, NO SHOCK PRIMARY CONCERN FOR SITUATIONAL AWARENESS: Rapid Response within the past 48 hours OBSERVATIONS: At the time of rounding, no concerns expressed by battery charger conveyor line. VSS. MANAGER PROCESS IMPROVEMENT to remain available for any changes in condition. PLAN: Continue current plan as detailed in daily progress note. OUTCOME: Remains in current room ESCALATION PLAN: If patient begins to clinically deteriorate or there are any significant changes please call a rapid response. Plan discussed with - nursing and patient. Everyone is in agreement with the plan. 5 minutes spent on patient assessment, review of relevant data, and documentation. Miky Aaron RN - 09/04/2024 7:41 PM CST Problem: Pain/Discomfort Goal: Patient exhibits reduced pain/discomfort as evidenced by pain scores Outcome: Progressing Goal: Patient uses pharmacological and non-pharmacological pain management strategies. Outcome: Progressing Goal: Patient verbalizes acceptable level of pain relief and ability to engage in desired activity. Outcome: Progressing Problem: Fall Risk Goal: Fall risk and fall related injury risk are minimized (interventions related to the fall risk can be found in the flowsheet documentation) Outcome: Progressing Problem: Risk for Violence: Self-Directed or Other Directed Description: Diagnosis: Risk for self-directed Violence or Risk for Directed Violence Risk Factors: Biochemical/neurologic imbalances, impulsivity, manic excitement, psychotic symptomatology, rage reaction, restlessness Possibly Evidenced By: agitated behaviors, delusional thinking, hallucinations, loud/threatening/profane speech, poor impulse control, provocative behaviors, verbal threats against others, verbal threats against self Goal: Patient will verbalize control of feelings. Outcome: Progressing Goal: Patient will respond to interventions when potential or actual loss of control occurs. Outcome: Progressing Goal: Patient will display nonviolent behaviors toward others in the hospital, with the aid of medications and nursing interventions. Outcome: Progressing Goal: Patient will seek help when experiencing aggressive impulses. Outcome: Progressing Goal: Patient will refrain from verbal threats and loud, profrane language toward others. Outcome: Progressing Goal: Patient will be safe and free from injury. Outcome: Progressing Problem: Skin Integrity Goal: Skin integrity is maintained or improved Outcome: Progressing Problem: Nutrient: Malnutrition Goal: Total intake will meet estimated nutrient needs Outcome: Progressing CH EXAMINER * Litzy Grady RN - 09/04/2024 1:00 PM CST Problem: Pain/Discomfort Goal: Patient exhibits reduced pain/discomfort as evidenced by pain scores Outcome: Progressing Problem: Fall Risk Goal: Fall risk and fall related injury risk are minimized (interventions related to the fall risk can be found in the flowsheet documentation) Outcome: Progressing Problem: Risk for Violence: Self-Directed or Other Directed Description: Diagnosis: Risk for self-directed Violence or Risk for Directed Violence Risk Factors: Biochemical/neurologic imbalances, impulsivity, manic excitement, psychotic symptomatology, rage reaction, restlessness Possibly Evidenced By: agitated behaviors, delusional thinking, hallucinations, loud/threatening/profane speech, poor impulse control, provocative behaviors, verbal threats against others, verbal threats against self Goal: Patient will verbalize control of feelings. Outcome: Progressing Goal: Patient will respond to interventions when potential or actual loss of control occurs. Outcome: Progressing Problem: Skin Integrity Goal: Skin integrity is maintained or improved Outcome: Progressing Carlee Serrano RN - 09/04/2024 11:45 AM CST Case Management Progress Note Anticipated level of care at discharge: Unknown Discharge Disposition : Home with [facility] Continued Care and Services - Admitted Since 08/27/2024 Destination Service Provider Request Status Selected Services Address Phone Fax Patient Preferred [facility] Pending - Request Sent -- [address] [place] [id number] [phone] -- Home Medical Care Service Provider Request Status Selected Services Address Phone Fax Patient Preferred [facility] (Home Health) Accepted -- [address], [address], [facility] [address] -- Current Capacity last updated by Celia Caputo on 04/06/[address] [place] [address] CM spoke with son. Plan to dc to home 09/05/24. Pt has no DME needs. Son reports he has a WW at home. Son reports he is able to provide dc transportation. He is aware of the [facility] agency. They are agreeable with dc plan No other needs at this time Basic Needs Assessment (BNA) Score: Transportation at Discharge: Ambulance Equipment at Home: Equipment at Home: Bathroom Equipment;Walker;Wheelchair Additional DME needed: Food Security: Within the past 12 months, you worried that your food would run out before you got the money to buymore.: Never true Within the past 12 months, the food you bought just didn't last and you didn't have money to get more.: Never true Name: Carlee Benavidez RN CM CH EXAMINER * Melia Elena RD/JAMES - 09/04/2024 9:51 AM CST BRIEF SYNOPSIS: Nutrition Risk Identified and meets criteria for Severe Protein Calorie malnutrition. Malnutrition Etiology Malnutrition in the context of: chronic disease (08/30/24799) Malnutrition Severity: Severe Protein Calorie (08/30/24799) Dietary Intake: Weight Change: Weight change Unintended weight change: Severe weight loss Weight Loss: > 7.5% x 3 months (8% x 3 months) Fat Loss: Loss of Subcutaneous Fat Orbital: Severe Buccal: Severe Chest/Ribs: Severe Muscle Loss: Muscle Loss Temples (Temporalis Muscle): Severe Clavicles (Pectoralis & Deltoids): Severe Body mass index is 24.33 kg/m??. GI Concerns: Constipation Nutrition Plan: Continue Regular Diet (Assist w/meals) Continue Ensure Plus High Protein BID w/meals (1.5 kcal) (350 kcal, 20 grams pro, 40 grams CHO) Continue Magic Cup once a day w/meals (290 kcal, 9g protein, 38g CHO) Recommendation to Physician: + Increase scheduled bowel regimen, Last BM 09/01 + Obtain updated labs Discharge Needs: Nutritional Supplement at Discharge: Yes CLINICAL NUTRITION ASSESSMENT: Pt scheduled for reassessment. Pt is currently AxOx1 and has dementia. Pt was asleep when RD attempted to visit. Per documentation, patient has been having inconsistent PO intake, consuming 0- 75% of his meals. Ensure and Magic Cup intake not documented, RD to continue these orders to aid in nutrition status. Last BM 09/01, RD recommends increasing the scheduled bowel regimen. Labs reviewed- eGFR low (81), Phos low (2.5). Pt will discharge home with home health. RD to follow. Med/Surg History and Clinical Diagnoses: 89 year old male with h/o dementia presenting as a level 2trauma transferred following a ground level fall. Height: 172.7 cm (5' 8 ) BMI: Body mass index is 24.33 kg/m??. BMI Range: Normal IBW/lb (Calculated) Male: 154 Recent Weights/Methods 07/02/2015 1033 11/05/2015 1106 12/31/2015 0911 03/17/2016 1049 05/12/2016 1021 06/03/2016 0939 08/27/2024 2251 08/28/2024 1656 Weight: 99.8 kg (220 lb) 99.3 kg (219 lb) 99.3 kg (219 lb) 95.3 kg (210 lb) 101.6 kg (224 lb) 95.3 kg (210 lb) 72.6 kg (160 lb) 72.6 kg (160 lb) Weight Method : -- -- -- -- -- -- Estimated Bed scale Unintentional weight change: Reviewed and Monitoring. Unintended weight change: Severe weight loss PO INTAKE Current diet order: Regular Nutrition recommendation: agree with current nutrition order Food Allergies: No known food allergies Last % Meal Taken: 75 % (09/03/24 1752) 48 hr PO INTAKE % Meal Taken Av % Min: 0 % Max: 75 % Current supplement order: Ensure Plus High Protein BID, Magic Cupx1 Supplement(s) Consumed- Last 48 hours None Pain affecting intake: No Chewing/Swallowing: Altered Dentition (Missing teeth) GI Concerns: Constipation Stools: Last BM Prior to Admission (Date): 09/01/24 Stools (# of stools): 1 (09/03/24 142) Stool Appearance : Soft (09/03/241425) Stool Amount: Large (09/03/241425) Skin/Wound: WDL Estimated Needs: KCAL: 2,190-2,555kcal (30-35 kcal/kg ABW) Protein (g): 88-110g (1.2-1.5 g/kg ABW) Fluid (ml): 1 ml/kcal Needs based on: Kcal/kg- (Comment) (73kg ABW) Recommended Access Route: PO Labs: Recent Labs Component Name 08/29/2444708/27/24230407/03/15 0853 NA 137 136 138 POTASSIUM 3.7 4.5 - CO2 24 23 25 BUN 22 25 20 CREATININE 0.91 1.07 1.05 GLUCOSE 83 97 - CALCIUM 8.6 8.6 9.3 ALT - - 28 ALKPHOS - - 61 AST - - 21 EGFR 81* 67* - Recent Labs Component Name 08/29/24447 PHOS 2.5* Recent Labs Component Name 08/29/24447 MAGNESIUM 1.8 Recent Labs Component Name 08/29/2444708/27/24230407/03/15 0853 HGB 11.1* 10.9* 15.2 HCT 33.4* 31.9* 46.2 No results for input(s): HGBA1C in the last 91150 hours.No data found. MEDICATIONS FOR CURRENT ENCOUNTER: SCHEDULED MEDICATIONS: 0.9% NaCl injection 3 mL, Intracatheter, q8h acetaminophen (Tylenol) tablet 1,000 mg, Oral, TID enoxaparin (Lovenox) injection 30 mg, Subcutaneous, q12h escitalopram (Lexapro) tablet 10 mg, Oral, QDAY finasteride (Proscar) tablet 5 mg, Oral, QDAY levETIRAcetam (Keppra) tablet 500 mg, Oral, BID lidocaine (Lidoderm) 5 % patch 1 patch, Transdermal, QDAY melatonin tablet 3 mg, Oral, AT BEDTIME polyethylene glycol 3350 (Miralax) packet 17 g, Oral, QDAY QUEtiapine (SEROquel) tablet 12.5 mg, Oral, AT BEDTIME QUEtiapine (SEROquel) tablet 25 mg, Oral, QAM senna (Senokot) tablet 8.6 mg, Oral, QDAY [COMPLETED] bisacodyl (Dulcolax) suppository 10 mg, Rectal, Once CONTINUOUS MEDICATIONS: PRN MEDICATIONS: 0.9% NaCl injection 1-10 mL, Intracatheter, PRN albuterol-ipratropium (Duo-Neb) nebulizer solution 3 mL, Inhalation, q6h PRN LORazepam (Ativan) injection 1 mg, Intravenous, Once PRN QUEtiapine (SEROquel) tablet 12.5 mg, Oral, TID PRN Nutrition Diagnostic Statement: Malnutrition related to:: age related sarcopenia;inadequate protein-energy intake as evidenced by:: unintentional weight loss;loss of subcutaneous fat;loss of muscle mass Nutrition Intervention: Meals and snacks:;Medical Food Supplements:;Feeding assistance: Education needed: Supplements Education Provided: Not appropriate (08/30/24 0800) Monitoring: PO intake, labs, weight, BM Monitor per nutrition guidelines. Risk Level: At Risk for Malnutrition Evaluation: Nutrition Goal: Total intake will meet estimated nutrient needs Nutrition Goal Timeframe: Ongoing Nutrition Goal Progress: Continue with current goal Melia Elena RD/JAMES Ascom:[id number] CH EXAMINER * Amanda Joya COTA - 09/04/2024 9:28 AM CST [facility] Physical Medicine and Rehabilitation Occupational Therapy Progress Note Patient: Frandy Alvares [facility] Record Number: [id number] Date of : 1935 Age: [age] year old PPE worn by staff: gloves PPE worn by patient: gown - patient, clean;socks - clean Cotx with PT Recommendations: Discharge OT Discharge Recommendations: Patient would benefit from ongoing therapy with home health Nurse and Physical Therapist contacted regarding patient status and/or discharge plan. Activity Level: as tolerated PRECAUTIONS: Weight Bearing Status: (no restrictions noted) SUBJECTIVE: Subjective: (pt agreeable to therapy) Pain Assessment: Pain Assessment Pain Scale/Observation: No/denies pain Pain Rating Score #1: 0 Sedation Level: 1-Awake and alert OBJECTIVE: At start of therapy session, patient found in bed and with no alarm General Appearance: pt in NAD Vitals: (*Assess the 3 levels of oxygen saturations both for room air and 02 unless rest on room air is 88% or less). Rest BP: 176/71 (97) HR: 61 Sp02 Sp02 99% Room Air L O2 Ex/Gait/Activity Without 02 BP: HR: Sp02 Room Air Ex/Gait/Activity With 02 BP: HR: Sp02 L O2 Post Activity BP: HR: Sp02 Sp02 L O2 Room Air Observations: Unable to obtain orthostatics due to malfunctioning BP machine. Pt asymptomatic with mobility. Mental Status/Cognition: Orientation Level: Disoriented to Place Cognition: Confused Attention Span: Attends with cues to redirect Following Commands: Follows one step commands with repetition/cues Safety Judgement: Decreased awareness of need for safety Awareness of Errors: Decreased awareness of deficits Problem Solving: Assistance required to generate solutions;Assistance required to identify errors made;Assistance required to implement solutions Mobility: a gait belt and non-slip socks were used for all out of bed activity this date. Bed Mobility: Supine to Sit: Minimal Assistance with HOB in semi-fowlers position Sit to Supine: (pt in bedside chair following session) Transfers: Sit to Stand: Minimal Assistance;Requires Verbal Cues for Safety Stand to Sit: Minimal Assistance;Requires Verbal Cues for Safety Functional Ambulation: Patient ambulated 3-4 steps to bedside chair with min assist using 2WW. Balance: Balance Scales/Tests Used: Sitting: Static/Dynamic;Standing: Static/Dynamic Sitting - Static: Good Sitting - Dynamic: Good - Standing - Static: Fair +;With Both Upper Extremity's Support Standing - Dynamic: Fair;With Both Upper Extremity's Support Activities of Daily Living: Oral Facial Hygiene: (brushed teeth seated in bedside chair) Upper Body Dressing: (don gown with HOB raised) ACTIVITY TOLERANCE: Modified [place]: Current Modified [place] Score: 4 AM-PAC 6 Clicks Daily Activity Raw Score:: 14 TREATMENT/INTERVENTIONS: ADL training Functional transfer training Bed mobility Safety awareness EDUCATION: While performing OT, Patient was instructed in:functional mobility training, self-care training, safety awareness/fall precautions , use of call light Presented to patient who demonstrates Good understanding of instructions given. INFORMED CONSENT TO TREATMENT: Plan of care including recommended therapy, goals and frequency, discussed with patient who understands and agrees to proceed. ASSESSMENT: Patient continues to benefit from skilled Occupational Therapy to achieve the following functional goals. 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 Plan: Patient continues to benefit from skilled therapy services. If patient is discharged from the facility, this note serves as a discharge summary if further occupational therapy visits did not occur. Refer to filed flowsheet for further details. Following therapy session, patient left in patient bedside chair , with chair alarm on and positioned under patient's buttocks , with call light within reach, with RN in room, with RN, Litzy adkins, with fall mats in place, all lines/tubes intact. CH EXAMINER * Carmel Roberts, PT - 09/04/2024 9:23 AM CST [facility] Physical Medicine and Rehabilitation Physical Therapy Progress Note Patient: Frandy Alvares [facility] Record Number: [id number] Date of : 1935 Age: [age] year old PPE worn by staff: gloves PPE worn by patient: gown - patient, clean;socks - clean Co-Treat with OT Recommendations: Discharge PT Discharge Recommendations: Patient would benefit from multidisciplinary therapy SUBJECTIVE: Subjective: Patient is willing to work with PT Pain Assessment: Pain Assessment Pain Scale/Observation: No/denies pain Pain Rating Score #1: 0 Sedation Level: 1-Awake and alert PRECAUTIONS: Weight Bearing Status: (No restrictions) Activity Level: Activity as Tolerated OBJECTIVE: At start of therapy session, patient found in bed and with no alarm General Appearance: in NAD Vitals: (*Assess the 3 levels of oxygen saturations both for room air and 02 unless rest on room air is 88% or less). Rest BP: 176/71 HR: 61 Sp02 Sp02 99% Room Air L O2 Ex/Gait/Activity Without 02 BP: HR: Sp02 Room Air Ex/Gait/Activity With 02 BP: HR: Sp02 L O2 Post Activity BP: HR: Sp02 Sp02 Room Air L O2 Observations: Unable to obtain orthostatics due to malfunctioning BP machine. Pt asymptomatic with mobility. Mental Status/Cognition: Level of Consciousness-Adult: (alert) Orientation Level: Disoriented to Place;Disoriented to Situation;Disoriented to Time Cognition: Confused Attention Span: Attends with cues to redirect Memory: Decreased short term memory;Decreased recall of recent events Following Commands: Follows one step commands with repetition/cues Safety Judgement: Decreased awareness of need for safety Awareness of Errors: Decreased awareness of deficits Problem Solving: Assistance required to generate solutions;Assistance required to identify errors made Mobility: A gait belt and non-slip socks were used for all out of bed activity this date. Bed Mobility: Supine to Sit: Minimal Assistance with HOB in semi-fowlers position Sit to Supine: Activity Does Not Occur Transfers: Sit to Stand: Minimal Assistance;Requires Verbal Cues for Safety Stand to Sit: Minimal Assistance;Requires Verbal Cues for Safety Gait: Weight Bearing Status: (No restrictions) Distance Ambulated (ft): 15 FEET Ambulation: Assistive Device: Gait Belt;Walker-2 Wheeled Ambulation: Level of Assistance: Minimum Assistance Comment: Patient demonstrated forward flexed posture with downward gaze with inability to correct with verbal and tactile cues. Balance: Balance Scales/Tests Used: Sitting: Static/Dynamic;Standing: Static/Dynamic Sitting - Static: Good Sitting - Dynamic: Good - Standing - Static: Fair +;With Both Upper Extremity's Support Standing - Dynamic: Fair;With Both Upper Extremity's Support ACTIVITY TOLERANCE: Patient's activity tolerance: fair. TREATMENT/INTERVENTIONS: bed mobility training, transfer training, gait training, monitoring of vitals, and cognitive stimulation Modified Massac: Current Modified [place] Score: 4 AM-PAC 6 Clicks Mobility Raw Score:: 17 EDUCATION: While performing PT, Patient was instructed in:functional mobility training, cognitive retraining, energy conservation, safety awareness/fall precautions , use of adaptive equipment, discharge planning, use of call light Presented to patient who demonstrates Questionable understanding of instructions given. ASSESSMENT: Patient would benefit from additional Physical Therapy sessions to achieve the following functionalgoals to enhance independence. Short Term Goals: Goal Formation Patient unable to participate in goal formulation Patient will perform bed mobility with minimal assist Patient will transfer sit to/from stand with minimal assist Patient will transfer bed to/from chair with minimal assist Patient will ambulate 50 feet with minimal assist [facility] Goal(s): Patient to discharge to appropriate next level of inpatient care. INFORMED CONSENT TO TREATMENT: Plan of care including recommended therapy, goals and frequency, discussed with patient who understands and agrees to proceed. Equipment Issued: gait belt Plan: Patient continues to benefit from skilled therapy services. If patient is discharged from the facility, this note serves as a discharge summary if further physical therapy visits did not occur. Refer to filed flowsheet for further details. Following therapy session, patient left in patient bedside chair , with chair alarm on and positioned under patient's buttocks , with call light within reach, with family in room, with RN in room, with fall mats in place. CH EXAMINER * Nery Doll RN - 09/04/2024 7:55 AM CST SITUATIONAL AWARENESS NOTE PATIENT'S NAME: Frandy Alvares BIRTHDATE: 1935 CODE STATUS: DNR - IF PULSELESS NO CPR, NO SHOCK PRIMARY CONCERN FOR SITUATIONAL AWARENESS: Rapid Response within the past 48 hours OBSERVATIONS: AM rounds completed on pt. Awake and alert in bed. No acute concerns brought forth bycharge or primary RN. MANAGER PROCESS IMPROVEMENT will continue to round and be available for questions or concerns. PLAN: Continue current plan as detailed in daily progress note. OUTCOME: Remains in current room ESCALATION PLAN: If patient begins to clinically deteriorate or there are any significant changes please call a rapid response. Plan discussed with - nursing and patient. Everyone is in agreement with the plan. 5 minutes spent on patient assessment, review of relevant data, and documentation. CH EXAMINER * Kat Garsia MD - 09/04/2024 7:14 AM CST [facility] INTERNAL MEDICINE PROGRESS NOTE Patient: Frandy Alvares Sex: male Age: [age] year old Date of : 1935 Date of Admission: 08/27/2024 Date: 09/04/2024 LOS: 7 SUBJECTIVE Interval History: - Rapid response called for syncopal episode (LOC ~10 sec) overnight while transferring patient to the bathroom. Nurse present and assisted pt safely to the floor, did not hit head. Lying BP 172/80(101), sitting 129/99. Pt returned to baseline. Night team attempted to call son, Frandy, and friend but was unable to reach them. - no acute distress during examination - Son at bedside, ready to take patient home tomorrow morning Hospital Course: Frandy Alvares is an 89 y/o M with PMH of dementia (on donepezil), multiple falls, HTN, CAD, OA, HLD, and actinic keratoses who presented for unwitnessed fall at his home in his bathroom with unknownLOC. Pt initially presented to [facility] with increased AMS, received 5mg Ativan, and was transferred for further eval. Pt arrived to [facility] as a trauma with finding on imaging of chronic SDH (b/l frontal lobes) and 11th post rib Fx. Pt admitted to trauma floor for further care. Started on analgesia, bronchial hygiene, and incentive spirometry. Per son, Pt had been increasingly confused over the prior week with multiple falls recently on ASA. Stated baseline AMS was A&Ox2. NSGY consulted for SDH and recommend no acute intervention. Geriatric medicine consulted and determined delirium in the setting of immobility, falls w/ head trauma, SDH, dementia, risk of constipation, risk of urinary retention, and sleep deprivation. Recommended delirium precautions, pain control, cont nightly quetiapine, and discontinued Hydroxyzine BID. On HOD #1, Pt was witnessed to have tonic/clonic event, which was reported to have happened before by caregiver. Neurology was consulted who recommended routine EEG (showing increased tendency toward seizures, and mild/mod encephalopathy), MRI brain, and loaded Keppra and started maintenance Keppra 500mg BID. On HOD #2, Pt was requested by trauma for IM to take over as primary. Hospital stay subsequently only complicated by persistent delirium involving frequent sun-downing with combative agitation requiring bilat wrist/lap belt restraints for patient safety. Psych consulted for delirium med recs. Pt placed on quetiapine BID, delirium precautions, and PRN quetiapine for non-redirectable agitation. OBJECTIVE Vital Signs: Vitals: 09/03/24 1932 09/03/24201409/03/24 2349 09/04/24 0447 BP: 148/70 168/72 144/72 (!) 190/86 Pulse: 73 76 66 78 Resp: 18 18 Temp: 97.5 ??F (36.4 ??C) 97.7 ??F (36.5 ??C) SpO2: 97% 96% 92% Weight: Height: Temp Min: 96.4 ??F (35.8 ??C) Max: 99.2 ??F (37.3 ??C), Pulse Min: 53 Max: 120, Resp Min: 11 Max: 28, BP Min: 98/51 Max: 190/86 Intake & Output: In: 770 [P.O.:770] Out: 300 [Urine:300] Physical Exam: General: No acute distress, resting comfortably in bed. Cachectic. Neck: Supple. Trachea midline. Heart: RRR. No murmurs appreciated. Chest: Non-labored breathing. Normal breath sounds. Abdomen: Soft, non-tender, non-distended, bowel sounds present. Extremities: No lower extremity edema. Neuro: No focal deficits noted. Intake/Output Summary (Last 24 hours) at 09/04/2024 0715 Last data filed at 09/04/2024 0506 Gross per 24 hour Intake 770 ml Output 300 ml Net 470 ml Current Medications: Scheduled: 0.9% NaCl 3 mL Intracatheter q8h acetaminophen 1,000 mg Oral TID enoxaparin 30 mg Subcutaneous q12h escitalopram 10 mg Oral QDAY finasteride 5 mg Oral QDAY levETIRAcetam 500 mg Oral BID lidocaine 1 patch Transdermal QDAY melatonin 3 mg Oral AT BEDTIME polyethylene glycol 3350 17 g Oral QDAY QUEtiapine 12.5 mg Oral AT BEDTIME [Held by Provider] QUEtiapine 25 mg Oral QAM senna 8.6 mg Oral QDAY Continuous: PRN: SALINE LOCK, INSERT AND MAINTAIN AND 0.9% NaCl AND 0.9% NaCl albuterol-ipratropium LORazepam QUEtiapine Significant Lab Results: No results found for this or any previous visit (from the past 24 hour(s)). Microbiology: Microbiology Results (Displays last 21 days for this encounter ONLY) Procedure Component Value - Date/Time SARS-COV-2 (COVID-19) RAPID [[id number]] (Normal) Collected: 08/28/24 1105 Lab Status: Final result Specimen: Microbiology from Nasopharyngeal Updated: 08/28/24 1149 COVID-19 PCR Not detected Narrative: The [employer] [employer] X[employer] Xpress SARS-COV-2 has been authorized by [...] EUA assay are available upon request. Imaging & Studies: None new. ASSESSMENT & PLAN Fall (POA: Yes) Trauma (POA: Yes) Impaired mobility and ADLs (POA: Yes) Altered mental status (POA: Yes) SDH (subdural hematoma) (HCC) (POA: Yes) Fall, subsequent encounter (POA: Yes) Contusion of right lung, initial encounter (POA: Yes) Closed fracture of one rib of right side, initial encounter (POA: Yes) Dementia (HCC) (POA: Yes) Delirium (POA: No) Observed seizure-like activity (HCC) (POA: Yes) Severe protein-calorie malnutrition (HCC) (POA: Yes) #Delirium #Dementia - resolving delirium. Potential risks for delirium include possible seizure, falls with head trauma, SDH, demenita, risk of constipation, risk of urinary retention, sleep deprivation - Agitation, wandering, A&Ox2 at baseline PLAN: - Delirium precautions - Avoid sedative hypnotics/anticholinergics - Allow family at bedside as much as possible - Avoid restrictions/restraints in general - Allow OOB to chair mobilization - PT/OT - Daily Miralax - Monitor for retention. Bladder scan post void. Straight cath for residuals >350ml - Optimize nutritional status. Ensure supplements TID between meals - Address unrecognized pain. Tylenol 1000mg PO TID - Psychiatry consult for med recs - Initially rec d/c BID quetiapine and start trazodone 25mg PO TID with Zyprexa 2.5mg sublingual q6H PRN. Pt had worsening mentation with this regimen. - Updated recs now restarting quetiapine 25mg qAM and 12.5mg nightly with additional PRN [id number] for non-redirectable agitation #Recurrent Falls #Orthostatic hypotension - Witnessed seizure-like activity 08/29 and similar Hx per caregiver - several risk factors for seizure (dementia, head trauma, chr SDH) vs likely mechanical falls in the setting of dementia and poor functional status vs syncope - Routine EEG (08/29): Increased tendency toward seizures and mild/moderate encephalopathy - Pt had ~10 second syncopal episode when transferring to restroom overnight 09/03. Orthostats positive. - PO intake 50-75% PLAN: - Neurology consult - s/p Keppra load and Keppra 500mg PO BID - MRI brain w/wo Epilepsy protocol - can give Zyprexa to facilitate - MRI outpatient along with neuro clinic f/u - Consider compression stockings and abdominal binder pending patient tolerance #Severe protein malnutrition - Nutrition - Ensure BID w/ meals and Magic cup daily #MDD with anxiety: continue Lexapro 10mg daily. #BPH: Cont finasteride. Held alfuzosin #Discharge - Outpatient MRI brain w/wo epilepsy protocol - Neurology f/u - Compression stockings, abdominal binder Code: DNR Diet: Regular Electrolytes: Replete PRN PPx: Lovenox Access: PIV Dispo: Home with HH and private pay caregiver tomorrow pending family readiness The above assessment and plan will be discussed with the attending. This note is not final until attested by attending physician. Kat Garsia MD Internal Medicine, PGY-1 [facility] 09/04/2024 7:15 AM CH EXAMINER Associated attestation - Joey Nunn DO - 09/04/2024 4:00 PM BRANCH EXAMINER I have seen and examined the patient with the resident and I agree with the findings and plan of care as documented by Dr. Garsia. Principal Problem: Fall Active Problems: Trauma Impaired mobility and ADLs Altered mental status SDH (subdural hematoma) (HCC) Fall, subsequent encounter Contusion of right lung, initial encounter Closed fracture of one rib of right side, initial encounter Dementia (HCC) Delirium Observed seizure-like activity (HCC) Severe protein-calorie malnutrition (HCC) Patient with syncopal episode overnight, likely 2/2 orthostatic hypotension. Family updated. I explained precautions with orthostatic hypotension and positional changes, particularly given advanced age. Given his initial fall was unwitnessed prior to admission, this may have been underlying etiology for that event too. Orthostats have been positive previously this admission. Family comfortable with taking patient home tomorrow, still pending some equipment/home arrangements. Will plan for discharge tomorrow. Date of Service: 09/04/2024 Joey Nunn DO * Melina Mota RN - 09/04/2024 5:10 AM CST Problem: Pain/Discomfort Goal: Patient exhibits reduced pain/discomfort as evidenced by pain scores Outcome: Progressing Goal: Patient uses pharmacological and non-pharmacological pain management strategies. Outcome: Progressing Goal: Patient verbalizes acceptable level of pain relief and ability to engage in desired activity. Outcome: Progressing Problem: Fall Risk Goal: Fall risk and fall related injury risk are minimized (interventions related to the fall risk can be found in the flowsheet documentation) Outcome: Progressing Problem: Risk for Violence: Self-Directed or Other Directed Description: Diagnosis: Risk for self-directed Violence or Risk for Directed Violence Risk Factors: Biochemical/neurologic imbalances, impulsivity, manic excitement, psychotic symptomatology, rage reaction, restlessness Possibly Evidenced By: agitated behaviors, delusional thinking, hallucinations, loud/threatening/profane speech, poor impulse control, provocative behaviors, verbal threats against others, verbal threats against self Goal: Patient will verbalize control of feelings. Outcome: Progressing Goal: Patient will respond to interventions when potential or actual loss of control occurs. Outcome: Progressing Goal: Patient will display nonviolent behaviors toward others in the hospital, with the aid of medications and nursing interventions. Outcome: Progressing Goal: Patient will seek help when experiencing aggressive impulses. Outcome: Progressing Goal: Patient will refrain from verbal threats and loud, profrane language toward others. Outcome: Progressing Goal: Patient will be safe and free from injury. Outcome: Progressing Problem: Skin Integrity Goal: Skin integrity is maintained or improved Outcome: Progressing BEL * Marily Sparks - 09/03/2024 7:46 PM CST Direct Support Professional Caregiver responded to page for Rapid Response. Nurse assisting patient back into bed. Doctor present and assessing patient. No family present at this time. Marily Lopez call out operator Ascom [phone] (office [phone]) [id number] CH EXAMINER * Gil Butts MD - 09/03/2024 7:46 PM CST Responded to rapid response for a brief syncopal episode that patient had while transferring patient to the restroom. Patient denied any dizziness, nausea, chest pain prior or after the event. Reportedly passed out for 5-10s seconds before regaining consciousness. No head trauma per nursing. Appeared a little confused as to where the bed was, but otherwise oriented and conversational afterthe event. He was severely orthostatic between supine and siting up (drop in systolic BP by 40-50ss, from SBP 160s to 120s). Deferred checking standing BP given the degree of drop in BP. Advised nursing to minimizing standing the patient and provide bed-huang. Holding AM seroquel due to concern for worsening orthostasis. Will defer to day team to resume. Attempted to call son ([phone]) and friend Bharti ([phone]), but was unable to reach them. Gil Butts, Internal medicine, PGY-2 CH EXAMINER * Melina Mota RN - 09/03/2024 7:45 PM CST Around 1935 we assisted the patient going to the restroom but before he can sit to the toilet bowl his knees became weak and kneel to the floor then passed out while we're holding him and we assistedhim to down to the floor and then rapid response was called. CH EXAMINER * Litzy Grady RN - 09/03/2024 3:55 PM CST Problem: Pain/Discomfort Goal: Patient exhibits reduced pain/discomfort as evidenced by pain scores Outcome: Progressing Goal: Patient uses pharmacological and non-pharmacological pain management strategies. Outcome: Progressing Problem: Fall Risk Goal: Fall risk and fall related injury risk are minimized (interventions related to the fall risk can be found in the flowsheet documentation) Outcome: Progressing Problem: Risk for Violence: Self-Directed or Other Directed Description: Diagnosis: Risk for self-directed Violence or Risk for Directed Violence Risk Factors: Biochemical/neurologic imbalances, impulsivity, manic excitement, psychotic symptomatology, rage reaction, restlessness Possibly Evidenced By: agitated behaviors, delusional thinking, hallucinations, loud/threatening/profane speech, poor impulse control, provocative behaviors, verbal threats against others, verbal threats against self Goal: Patient will verbalize control of feelings. Outcome: Progressing Problem: Skin Integrity Goal: Skin integrity is maintained or improved Outcome: Progressing Problem: Nutrient: Malnutrition Goal: Total intake will meet estimated nutrient needs Outcome: Progressing CH EXAMINER * Amanda Joya COTA - 09/03/2024 2:52 PM CST [facility] Department of Physical Medicine & Rehabilitation Progress Note Patient: Frandy Alvares [facility] Record Number: [id number] Date of : 1935 Age: [age] year old 09/03/24 1434 Missed Visit Missed Visit Refused Patient refused therapy intervention due to RN Notified of Refusal;Fatigue Pt refused therapy due to fatigue and stated he was too cold to get up again. Litzy LUNDY notified of refusal. OT will continue to follow. CH EXAMINER * Carmel Roberts PT - 09/03/2024 2:33 PM CST [facility] Department of Physical Medicine & Rehabilitation Progress Note Patient: Frandy Alvares [facility] Record Number: [id number] Date of : 1935 Age: [age] year old 09/03/24 1433 Missed Visit Missed Visit Refused Patient declined intervention at this time - stating his is too cold . Educated patient on importance of mobility. Patient wishes to be check on tomorrow. Provided additional blanket. Physical Therapy to follow up as time allows. CH EXAMINER * Syed Stone - 09/03/2024 2:31 PM CST Direct Support Professional Caregiver encountered patient sitting in a chair in the 8S observation room looking out the window. Direct Support Professional Caregiver greeted the patient and his geriatric personal care aide as well as his family friend Shayy who was on her way out. Direct Support Professional Caregiver introduced the role of pastoral care and engaged the patient in conversation. Patient voiced his opinion of the chilly temperature of the space and his need for an extra blanket. Direct Support Professional Caregiver offered a supportive presence and coordinated with nursing staff concerning the patient's desire for an extra blanket. Patient expressed no immediate pastoral care needs and is aware of the availability of pastoral care for further support. Syed Stone 09/03/2024 2:38 PM [id number] CH EXAMINER * Carlee Benavidez RN - 09/03/2024 8:54 AM CST Case Management Progress Note Pt is new to my caseload Anticipated level of care at discharge: Unknown Discharge Disposition : SW following at this time for SNF. Back up referral [facility] - Admitted Since 08/27/2024 Destination Service Provider Request Status Selected Services Address Phone Fax Patient Preferred [facility] Pending - Request Sent -- [facility] [id number] [phone] -- Home Medical Care Service Provider Request Status Selected Services Address Phone Fax Patient Preferred [facility] (Home Health) Pending - Request Sent -- [address], [address] [place] [address] [phone] -- Current Capacity last updated by Celia Caputo on 04/06/2022 1245 [place], [place] Basic Needs Assessment (BNA) Score: Transportation at Discharge: Ambulance Equipment at Home: Equipment at Home: Bathroom Equipment;Walker;Wheelchair Additional DME needed: Food Security: Within the past 12 months, you worried that your food would run out before you got the money to buymore.: Never true Within the past 12 months, the food you bought just didn't last and you didn't have money to get more.: Never true Name: Carlee Benavidez RN CH EXAMINER * Kat Garsia MD - 09/03/2024 7:18 AM CST [facility] INTERNAL MEDICINE PROGRESS NOTE Patient: Frandy Alvares Sex: male Age: [age] year old Date of : 1935 Date of Admission: 08/27/2024 Date: 09/03/2024 LOS: 6 SUBJECTIVE Interval History: - NAEON - Pleasant and conversant during exam - Discussed dispo with son. He is amenable to taking father home as they have 24/7 care. Hospital Course: Frandy Alvares is an 89 y/o M with PMH of dementia (on donepezil), multiple falls, HTN, CAD, OA, HLD, and actinic keratoses who presented for unwitnessed fall at his home in his bathroom with unknownLOC. Pt initially presented to [facility] with increased AMS, received 5mg Ativan, and was transferred for further eval. Pt arrived to [facility] as a trauma with finding on imaging of chronic SDH (b/l frontal lobes) and 11th post rib Fx. Pt admitted to trauma floor for further care. Started on analgesia, bronchial hygiene, and incentive spirometry. Per son, Pt had been increasingly confused over the prior week with multiple falls recently on ASA. Stated baseline AMS was A&Ox2. NSGY consulted for SDH and recommend no acute intervention. Geriatric medicine consulted and determined delirium in the setting of immobility, falls w/ head trauma, SDH, dementia, risk of constipation, risk of urinary retention, and sleep deprivation. Recommended delirium precautions, pain control, cont nightly quetiapine, and discontinued Hydroxyzine BID. On HOD #1, Pt was witnessed to have tonic/clonic event, which was reported to have happened before by caregiver. Neurology was consulted who recommended routine EEG (showing increased tendency toward seizures, and mild/mod encephalopathy), MRI brain, and loaded Keppra and started maintenance Keppra 500mg BID. On HOD #2, Pt was requested by trauma for IM to take over as primary. Hospital stay subsequently only complicated by persistent delirium involving frequent sun-downing with combative agitation requiring bilat wrist/lap belt restraints for patient safety. Psych consulted for delirium med recs. Pt placed on quetiapine BID, delirium precautions, and PRN quetiapine for non-redirectable agitation. OBJECTIVE Vital Signs: Vitals: 09/02/24 1748 09/02/24 2051 09/02/24 2337 09/03/24 0544 BP: 134/69 138/77 114/92 149/70 Pulse: 89 73 64 65 Resp: 16 18 18 18 Temp: 98.5 ??F (36.9 ??C) 97.9 ??F (36.6 ??C) 97.7 ??F (36.5 ??C) 97.7 ??F (36.5 ??C) SpO2: 98% 97% 100% Weight: Height: Temp Min: 96.4 ??F (35.8 ??C) Max: 98.8 ??F (37.1 ??C), Pulse Min: 53 Max: 120, Resp Min: 11 Max: 28, BP Min: 98/51 Max: 179/89 Intake & Output: In: 240 [P.O.:240] Out: - Physical Exam: General: No acute distress, resting comfortably in bed. Cachectic. Neck: Supple. Trachea midline. Heart: RRR. No murmurs appreciated. Chest: Non-labored breathing. Normal breath sounds. Abdomen: Soft, non-tender, non-distended, bowel sounds present. Extremities: No lower extremity edema. Neuro: No focal deficits noted. Intake/Output Summary (Last 24 hours) at 09/03/2024 0719 Last data filed at 09/02/2024 1800 Gross per 24 hour Intake 240 ml Output -- Net 240 ml Current Medications: Scheduled: 0.9% NaCl 3 mL Intracatheter q8h acetaminophen 1,000 mg Oral TID enoxaparin 30 mg Subcutaneous q12h escitalopram 10 mg Oral QDAY finasteride 5 mg Oral QDAY levETIRAcetam 500 mg Oral BID lidocaine 1 patch Transdermal QDAY melatonin 3 mg Oral AT BEDTIME polyethylene glycol 3350 17 g Oral QDAY QUEtiapine 12.5 mg Oral AT BEDTIME QUEtiapine 25 mg Oral QAM senna 8.6 mg Oral QDAY Continuous: PRN: SALINE LOCK, INSERT AND MAINTAIN AND 0.9% NaCl AND 0.9% NaCl albuterol-ipratropium LORazepam QUEtiapine Significant Lab Results: No results found for this or any previous visit (from the past 24 hour(s)). Microbiology: Microbiology Results (Displays last 21 days for this encounter ONLY) Procedure Component Value - Date/Time SARS-COV-2 (COVID-19) RAPID [[id number]] (Normal) Collected: 08/28/24 1105 Lab Status: Final result Specimen: Microbiology from Nasopharyngeal Updated: 08/28/24 1149 COVID-19 PCR Not detected Narrative: The [employer] Xpert Xpress SARS-COV-2 has been authorized by [...] EUA assay are available upon request. Imaging & Studies: None new. ASSESSMENT & PLAN Fall (POA: Yes) Trauma (POA: Yes) Impaired mobility and ADLs (POA: Yes) Altered mental status (POA: Yes) SDH (subdural hematoma) (HCC) (POA: Yes) Fall, subsequent encounter (POA: Yes) Contusion of right lung, initial encounter (POA: Yes) Closed fracture of one rib of right side, initial encounter (POA: Yes) Dementia (HCC) (POA: Yes) Delirium (POA: No) Observed seizure-like activity (HCC) (POA: Yes) Severe protein-calorie malnutrition (HCC) (POA: Yes) #Delirium #Dementia - resolving delirium. Potential risks for delirium include possible seizure, falls with head trauma, SDH, demenita, risk of constipation, risk of urinary retention, sleep deprivation - Agitation, wandering, A&Ox2 at baseline PLAN: - Delirium precautions - Avoid sedative hypnotics/anticholinergics - Allow family at bedside as much as possible - Avoid restrictions/restraints in general - Allow OOB to chair mobilization - PT/OT - Daily Miralax - Monitor for retention. Bladder scan post void. Straight cath for residuals >350ml - Optimize nutritional status. Ensure supplements TID between meals - Address unrecognized pain. Tylenol 1000mg PO TID - Psychiatry consult for med recs - Initially rec d/c BID quetiapine and start trazodone 25mg PO TID with Zyprexa 2.5mg sublingual q6H PRN. Pt had worsening mentation with this regimen. - Updated recs now restarting quetiapine 25mg qAM and 12.5mg nightly with additional PRN [id number] for non-redirectable agitation #Recurrent Falls - Witnessed seizure-like activity 08/29 and similar Hx per caregiver - several risk factors for seizure (dementia, head trauma, chr SDH) vs likely mechanical falls in the setting of dementia and poor functional status vs syncope - Routine EEG (08/29): Increased tendency toward seizures and mild/moderate encephalopathy - Orthostatic vitals unable to obtain d/t patient behavior PLAN: Neurology consult - s/p Keppra load and Keppra 500mg PO BID - MRI brain w/wo Epilepsy protocol pending - can give Zyprexa to facilitate - Discharge pending MRI, however given very delayed schedule, Neuro advising may order MRI outpatient along with neuro clinic f/u #Severe protein malnutrition - Nutrition - Ensure BID w/ meals and Magic cup daily #MDD with anxiety: continue Lexapro 10mg daily. #BPH: Cont finasteride. Held alfuzosin Code: DNR Diet: Regular Electrolytes: Replete PRN PPx: Lovenox Access: PIV Dispo: Medicine. PT/OT rec SNF, however there is concern for increased delirium at SNF requiring possible continued mechanical/chemical restraints. Pt would likely benefit more from discharging to familiar environment/faces at home w/ HH including home PT/OT. Son amenable; has 24/7 care at home. The above assessment and plan will be discussed with the attending. This note is not final until attested by attending physician. Kat Garsia MD Internal Medicine, PGY-1 [facility] 09/03/2024 7:19 AM CH EXAMINER Associated attestation - Joey Nunn DO - 09/03/2024 2:29 PM BRANCH EXAMINER I have seen and examined the patient with the resident and I agree with the findings and plan of care as documented by Dr. Garsia. Principal Problem: Fall Active Problems: Trauma Impaired mobility and ADLs Altered mental status SDH (subdural hematoma) (HCC) Fall, subsequent encounter Contusion of right lung, initial encounter Closed fracture of one rib of right side, initial encounter Dementia (HCC) Delirium Observed seizure-like activity (HCC) Severe protein-calorie malnutrition (HCC) Patient improved mentation this morning. Appreciate Psychiatry input. Family at bedside. Agreeable to take patient home, possibly as early as tomorrow as they have 24/7 care. D/w Neurology - MRI to be done outpatient with clinic follow up. Discussed with patient's son who stated that transportationto imaging/appointments would not be a barrier. Date of Service: 09/03/2024 Joey Nunn DO * Stephanie Rudolph, AUTO BODY MECHANIC APPRENTICE-HEAT SEALING MACHINE OPERATOR - 09/03/2024 6:54 AM CST [facility] Staff Consult-Liaison Psychiatry Progress Note Name: Frandy Alvares Age: [age] year old Date of : 1935 Date of Note: 09/03/2024 Hospital day: Hospital Day: 8 Reason for Admission: fall Reason for Consult: Delirium, agitation, medication recommendations, specifically, whether quetiapine was still appropriate ID: Frandy Alvares is a 89 year old man with a PMH of multiple falls, HTN, CAD, OA, HLD, chronic SDH and a PPH of MDD,(on lexapro) dementia (on donepazil) of unclear type. Transfer from [facility] 08/28/24, admitted to [facility] for AMS likely 2/2 chronic SDH and fall with head trauma. BAL-neg UDS+ cannabinoids Psychiatry was consulted for delirium, agitation, and medication recommendations Per notes baseline oriented x2. Collateral previously obtained from assembler plastic boat and son at bedside indicated pt is currently not at baseline. Normally walks with walker and is overall independent with walking, dressing self, going in car and usually only needs verbal cues. Subjective Scheduled psychiatric medications Lexapro 10 mg (home medication) Seroquel 25 mg in am and 12.5 mg HS Psych PRNs last 24h: no prn seroquel needed 0730-8:45 am: Attempted to interview, pt twice during these hours. Pt somnolent. Did not arouse to voice. RN reports pt was awake prior to am dose of seroquel. No agitation and Prn not needed 10:10 am Still resting quietly with eyes closed. operations business partner reports son was here earlier, but not at present 10:45 am senior product development engineer and son at bedside. Awake and alert, oriented to self only but pleasant interactive. Unable to state correct month or yr or retain that he is in the hospital. Recognizes son and care takerable to state both of their names. States he is wonderful today. Objective: Vitals: Patient Vitals for the past 6 hrs: Temp Pulse Resp BP BP Method 09/03/24 0544 97.7 ??F (36.5 ??C) 65 18 149/70 Automatic Additional Diagnostic Imaging: Pertinent imaging includes the following: CT Head Wo Contrast Result Date: 08/29/2024 IMPRESSION: 1.Redemonstration of chronic appearing small subdural hematoma along the bilateral anterior convexities measuring up to 9 mm unchanged in size and density compared to prior study. Mild mass effect on the adjacent cerebral hemispheres however without significant midline shift. No new foci of hemorrhage. Report dictated by Faiza Pate MD I, Philomena Hopkins MD have personally reviewed and interpreted this examination/study. > Interpreting Provider: Philomena Hopkins MD on 08/29/2024 12:11 PM EEG showed increased tendency toward seizures and mild/mod encephalopathy Labs: I have reviewed the patient's lab results from the last 24h. unremarkable Most recent QTc: 08/30/24 445 Brief Mental Status Examination: 3rd visit 10:45 Appearance: older white male, appears stated age, no acute distress, resting in bed Eye contact: good Speech: clear Psychomotor: psychomotor agitation Attitude: easily engaged pleasant Mood: wonderful Affect: euthymic Thought Content: not voicing any suicidal ideation, or homicidal ideation or delusions Perception: not reacting to internal stimuli Insight: poor Judgment: poor- limited Assessment: Frandy Alvares is a 89 year old man with a PMH of multiple falls, HTN, CAD, OA, HLD, chronic SDH and a PPH of MDD,(reportedly was on lexapro) dementia (prev on donepazil no longer taking) of unclear type. Transfer from [facility] 08/28/24, admitted to [facility] for AMS likely 2/2 chronic SDH and fall with head trauma. BAL-neg UDS+ cannabinoids Psychiatry was consulted for delirium, agitation, and medication recommendations Per notes baseline oriented x2. Previously obtained Collateral from assembler plastic boat and son at bedside indicated pt is currently not at baseline. Normally walks with walker and is overall independent with walking, dressing self, going in car and usually only needs verbal cues. Financial Rep stating seroquel was home medication. Both indicate seroquel was working well for pt and per son even gave pt clarity. Not requiring prn medications. No behavioral issues overnight. Somnolent after am dose of Seroquel(home medication). Pt much more awake and alert later in morning. Son and rn patient care report pt to be more like himself this am. Would rec decreasing Prn seroquel to 12.5 mg PO TID PRN for severe non redirectable agitation but would Cont home scheduled doses of seroquel. Lethality: Short term risk of suicide- low Risk factors: being male and being elderly, current delirium, history of dementia and depression Protective factors: positive social support from family/friends, lack of prior suicide attempts, and history of medical compliance, no current self harming behaviors Short term risk of harm to others- moderate Risk factors: acute delirium, episodes of agitation, hx dementia Protective factors: not voicing homicidal ideation, intent, or plan or target and good social support , assembler plastic boat now bedside, no current agitation, no prns for agitation >24 hours Overall RISK: low/moderate Psychiatric Diagnoses: Delirium Major Neurocognitive disorder by history Cannabis use MDD by history Plan: Delirium management: - Would benefit from having room with reduced noise/stimuli,that could precipitate or worsen agitation - 1:1 sitter as needed vs observation room Family/assembler plastic boat bedside when possible - Minimize use of opioids, avoid BZDs and medications with anticholinergic activity - Adequate pain control and nutrition - Frequent orientation, provide clock and calendar, minimize staff changes - Ensure no urine / stool retention - Minimize use of physical restraints - Maintain regular sleep-wake cycle Psychiatric Medications: Scheduled Psych Meds: Cont home seroquel 25 mg PO in am and 12.5 mg HS -cont to monitor for oversedation-would not make changes unless discuss with family (son) Do rec decreasing Prn seroquel Can use seroquel 12.5 mg PO TID PRN for severe non redirectable agitation If would need IM PRN consider 2.5 mg PRN zyprexa IM-but would avoid if possible and only use if absolutely necessary ie pt danger to self or others Pt was no longer taking donepezil at home per rn patient care -Consider alternate AED to keppra in consultation with neurology if patient's delirium does not improve, although this must be balanced against the patient's potential seizure risk. Precautions: Delirium, Elopement, Assault, Fall, Seizure Psychosocial needs: We greatly appreciate social work's support with discharge planning in coordination with son Time spent: > 65 minutes in chart review, interview of pt and treatment planning Psychiatry sign off at this time. Please feel free to call psychiatry with any acute issues or questions Pt was discussed and seen with psychiatric attending DR Mccoy who agrees with imp/plan Stephanie CREWS PMHCNS-BC CH EXAMINER * Melina Mota RN - 09/03/2024 1:41 AM CST Problem: Pain/Discomfort Goal: Patient exhibits reduced pain/discomfort as evidenced by pain scores Outcome: Progressing Goal: Patient uses pharmacological and non-pharmacological pain management strategies. Outcome: Progressing Goal: Patient verbalizes acceptable level of pain relief and ability to engage in desired activity. Outcome: Progressing Problem: Fall Risk Goal: Fall risk and fall related injury risk are minimized (interventions related to the fall risk can be found in the flowsheet documentation) Outcome: Progressing Problem: Risk for Violence: Self-Directed or Other Directed Description: Diagnosis: Risk for self-directed Violence or Risk for Directed Violence Risk Factors: Biochemical/neurologic imbalances, impulsivity, manic excitement, psychotic symptomatology, rage reaction, restlessness Possibly Evidenced By: agitated behaviors, delusional thinking, hallucinations, loud/threatening/profane speech, poor impulse control, provocative behaviors, verbal threats against others, verbal threats against self Goal: Patient will verbalize control of feelings. Outcome: Progressing Goal: Patient will respond to interventions when potential or actual loss of control occurs. Outcome: Progressing Goal: Patient will display nonviolent behaviors toward others in the hospital, with the aid of medications and nursing interventions. Outcome: Progressing Goal: Patient will seek help when experiencing aggressive impulses. Outcome: Progressing Goal: Patient will refrain from verbal threats and loud, profrane language toward others. Outcome: Progressing Goal: Patient will be safe and free from injury. Outcome: Progressing Problem: Skin Integrity Goal: Skin integrity is maintained or improved Outcome: Progressing CH EXAMINER * Marily Giraldo RN - 09/02/2024 6:11 PM CST Home care referral received however the patient resides in an area that is out of the service area & the referral can not be accepted. marketing traffic manager made aware & the referral closed. Agueda Giraldo, RN [facility] engine repairer service Liaison [facility] [phone] CH EXAMINER * Evin Servin MD - 09/02/2024 3:36 PM CST [facility] INTERNAL MEDICINE PROGRESS NOTE Patient: Frandy Alvares Sex: male Age: [age] year old Date of : 1935 Date of Admission: 08/27/2024 Date: 09/02/2024 LOS: 5 SUBJECTIVE Interval History: NAEON. VSS. A&Ox1. Did require reorder of restraints yesterday evening about 6pm d/t agitation with 2.5mg Zyprexa sublingual given. Sleeping this morning. Per caregiver of 10 yrs and son, Pt is sleepier than usual. Son is open to medical team's recommendations for discharge: SNF vs home w/ HH. Hospital Course: Frandy Alvares is an 89 y/o M with PMH of dementia (on donepezil), multiple falls, HTN, CAD, OA, HLD, and actinic keratoses who presented for unwitnessed fall at his home in his bathroom with unknownLOC. Pt initially presented to [facility] with increased AMS, received 5mg Ativan, and was transferred for further eval. Pt arrived to [facility] as a trauma with finding on imaging of chronic SDH (b/l frontal lobes) and 11th post rib Fx. Pt admitted to trauma floor for further care. Started on analgesia, bronchial hygiene, and incentive spirometry. Per son, Pt had been increasingly confused over the prior week with multiple falls recently on ASA. Stated baseline AMS was A&Ox2. NSGY consulted for SDH and recommend no acute intervention. Geriatric medicine consulted and determined delirium in the setting of immobility, falls w/ head trauma, SDH, dementia, risk of constipation, risk of urinary retention, and sleep deprivation. Recommended delirium precautions, pain control, cont nightly quetiapine, and discontinued Hydroxyzine BID. On HOD #1, Pt was witnessed to have tonic/clonic event, which was reported to have happened before by caregiver. Neurology was consulted who recommended routine EEG (showing increased tendency toward seizures, and mild/mod encephalopathy), MRI brain, and loaded Keppra and started maintenance Keppra 500mg BID. On HOD #2, Pt was requested by trauma for IM to take over as primary. Hospital stay subsequently only complicated by persistent delirium involving frequent sun-downing with combative agitation requiring bilat wrist/lap belt restraints for patient safety. Psych consulted for delirium med recs. Pt placed on quetiapine BID, delirium precautions, and PRN quetiapine for non-redirectable agitation. OBJECTIVE Vital Signs: Vitals: 09/01/24 1923 09/01/24 2353 09/02/24 0430 09/02/24 0801 BP: 146/62 134/51 130/75 160/60 Pulse: 77 54 57 60 Resp: 18 16 18 18 Temp: 97.4 ??F (36.3 ??C) 97.6 ??F (36.4 ??C) 97.6 ??F (36.4 ??C) 97.7 ??F (36.5 ??C) SpO2: 99% 100% 96% 100% Weight: Height: Temp Min: 96.4 ??F (35.8 ??C) Max: 98.8 ??F (37.1 ??C), Pulse Min: 53 Max: 120, Resp Min: 11 Max: 28, BP Min: 98/51 Max: 179/89 Intake & Output: In: 240 [P.O.:240] Out: 400 [Urine:400] Physical Exam: General: No acute distress, resting comfortably in bed. Cachectic. Neck: Supple. Trachea midline. Heart: RRR. No murmurs appreciated. Chest: Non-labored breathing. Normal breath sounds. Abdomen: Soft, non-tender, non-distended, bowel sounds present. Extremities: No lower extremity edema. Neuro: No focal deficits noted. A&Ox1. Intake/Output Summary (Last 24 hours) at 09/02/2024 1536 Last data filed at 09/02/2024 1300 Gross per 24 hour Intake 160 ml Output -- Net 160 ml Current Medications: Scheduled: 0.9% NaCl 3 mL Intracatheter q8h acetaminophen 1,000 mg Oral TID enoxaparin 30 mg Subcutaneous q12h escitalopram 10 mg Oral QDAY finasteride 5 mg Oral QDAY levETIRAcetam 500 mg Oral BID lidocaine 1 patch Transdermal QDAY melatonin 3 mg Oral AT BEDTIME polyethylene glycol 3350 17 g Oral QDAY QUEtiapine 12.5 mg Oral AT BEDTIME [START ON 09/03/2024] QUEtiapine 25 mg Oral QAM senna 8.6 mg Oral QDAY Continuous: PRN: SALINE LOCK, INSERT AND MAINTAIN AND 0.9% NaCl AND 0.9% NaCl albuterol-ipratropium LORazepam QUEtiapine Significant Lab Results: No results found for this or any previous visit (from the past 24 hour(s)). Microbiology: Microbiology Results (Displays last 21 days for this encounter ONLY) Procedure Component Value - Date/Time SARS-COV-2 (COVID-19) RAPID [[id number]] (Normal) Collected: 08/28/24 1105 Lab Status: Final result Specimen: Microbiology from Nasopharyngeal Updated: 08/28/24 1149 COVID-19 PCR Not detected Narrative: The [employer] Xpert Xpress SARS-COV-2 has been authorized by [...] EUA assay are available upon request. Imaging & Studies: XR Ankle Left 3Vw or More Result Date: 08/30/2024 IMPRESSION: No fracture or subluxation or dislocation seen; no suspicious radiopaque foreign body identified. > Interpreting Provider: Tyree Tyler on 08/30/2024 11:[address] Head Wo Contrast Result Date: 08/29/2024 IMPRESSION: 1.Redemonstration of chronic appearing small subdural hematoma along the bilateral anterior convexities measuring up to 9 mm unchanged in size and density compared to prior study. Mild mass effect on the adjacent cerebral hemispheres however without significant midline shift. No new foci of hemorrhage. Report dictated by Faiza Pate MD I, Philomena Hopkisn MD have personally reviewed and interpreted this examination/study. > Interpreting Provider: Philomena Hopkins MD on 08/29/2024 12:11 PM XR PELVIS 1 OR 2VW Result Date: 08/28/2024 IMPRESSION: No acute fracture identified. Report dictated by Dante Mcclain MD, MD (residential plumber). Sho Macedo MD have personally reviewed and interpreted this examination/study. > Interpreting Provider: Sho Minaya MD on 08/28/2024 9:15 AM XR Elbow Left 3Vw or More Result Date: 08/28/2024 IMPRESSION: No acute fracture or dislocation identified. Report dictated by Dante Mcclain MD, (residential plumber). Sho Macedo MD have personally reviewed and interpreted this examination/study. > Interpreting Provider: Sho Minaya MD on 08/28/2024 9:13 AM XR Ankle Left 3Vw or More Result Date: 08/28/2024 IMPRESSION: No acute fracture or dislocation identified. Report dictated by Dante Mcclain MD, (residential plumber). Sho Macedo MD have personally reviewed and interpreted this examination/study. > Interpreting Provider: Sho Minaya MD on 08/28/2024 9:[address] CHEST ABDOMEN PELVIS W CONT - Abdomen-pelvis trauma, blunt or penetrating Result Date: 08/28/2024 Impression: Mild limitations to the exam secondary [...] or pelvis. >Dictated by Dorian Cuevas MD (residential plumber). Tyree Macedo have personally reviewed and interpreted this examination/study. > Interpreting Provider: Tyree Tyler on 08/28/2024 8:[address] HEAD WO CONTRAST - Head Trauma, CSF leak, mental status changes Result Date: 08/28/2024 IMPRESSION: Significant motion artifact limits evaluation for [...] report is dictated by Dante Mcclain MD (residential plumber) Kalyani Macedo MD have personally reviewed and interpreted this examination/study. > Interpreting Provider: Kalyani Cortez MD on 08/28/2024 6:[address] FACIAL BONES WO CONTRAST - Facial trauma, fx suspected, blunt Result Date: 08/28/2024 IMPRESSION: Significant motion artifact limits evaluation for [...] report is dictated by Dante Mcclain MD (residential plumber) Rem[place], Kalyani Cortez MD have personally reviewed and interpreted this examination/study. > Interpreting Provider: Kalyani Cortez MD on 08/28/2024 6:[address] CERVICAL SPINE WO CONTRAST - C-Spine Trauma, Spine fracture Result Date: 08/28/2024 IMPRESSION: Significant motion artifact limits evaluation for [...] report is dictated by Dante Mcclain MD (residential plumber) Kalyani Macedo MD have personally reviewed and interpreted this examination/study. > Interpreting Provider: Kalyani Cortez MD on 08/28/2024 6:[address] THORACIC SPINE WO CONTRAST - T/L-spine trauma, spine fracture Result Date: 08/28/2024 IMPRESSION: Significant motion artifact limits evaluation for [...] report is dictated by Dante Mcclain MD (residential plumber) Remington, Kalyani Cortez MD have personally reviewed and interpreted this examination/study. > Interpreting Provider: Kalyani Cortez MD on 08/28/2024 6:[address] LUMBAR SPINE WO CONTRAST - T/L-spine trauma, Spine fracture Result Date: 08/28/2024 IMPRESSION: Significant motion artifact limits evaluation for [...] report is dictated by Dante Mcclain MD (residential plumber) Kalyani Macedo MD have personally reviewed and interpreted this examination/study. > Interpreting Provider: Kalyani Cortez MD on 08/28/2024 6:41 AM ASSESSMENT & PLAN Fall (POA: Yes) Trauma (POA: Yes) Impaired mobility and ADLs (POA: Yes) Altered mental status (POA: Yes) SDH (subdural hematoma) (HCC) (POA: Yes) Fall, subsequent encounter (POA: Yes) Contusion of right lung, initial encounter (POA: Yes) Closed fracture of one rib of right side, initial encounter (POA: Yes) Dementia (HCC) (POA: Yes) Delirium (POA: No) Observed seizure-like activity (HCC) (POA: Yes) Severe protein-calorie malnutrition (HCC) (POA: Yes) #Delirium #Dementia - resolving delirium. Potential risks for delirium include possible seizure, falls with head trauma, SDH, demenita, risk of constipation, risk of urinary retention, sleep deprivation - Agitation, wandering, A&Ox2 at baseline PLAN: - Delirium precautions - Avoid sedative hypnotics/anticholinergics - Allow family at bedside as much as possible - Avoid restrictions/restraints in general - Allow OOB to chair mobilization - PT/OT - Daily Miralax - Monitor for retention. Bladder scan post void. Straight cath for residuals >350ml - Optimize nutritional status. Ensure supplements TID between meals - Address unrecognized pain. Tylenol 1000mg PO TID - Psychiatry consult for med recs - Initially rec d/c BID quetiapine and start trazodone 25mg PO TID with Zyprexa 2.5mg sublingual q6H PRN - Updated recs now restarting quetiapine 25mg qAM and 12.5mg nightly with additional PRN [id number] for non-redirectable agitation #Recurrent Falls - Witnessed seizure-like activity 08/29 and similar Hx per caregiver - several risk factors for seizure (dementia, head trauma, chr SDH) vs likely mechanical falls in the setting of dementia and poor functional status vs syncope - Routine EEG (08/29): Increased tendency toward seizures and mild/moderate encephalopathy - Orthostatic vitals unable to obtain d/t patient behavior PLAN: Neurology consult - s/p Keppra load and Keppra 500mg PO BID - MRI brain w/wo Epilepsy protocol pending - can give Zyprexa to facilitate - Discharge pending MRI, however given very delayed schedule, Neuro advising may order MRI outpatient along with neuro clinic f/u #Severe protein malnutrition - Nutrition - Ensure BID w/ meals and Magic cup daily #MDD with anxiety: continue Lexapro 10mg daily. #BPH: Cont finasteride. Held alfuzosin Code: DNR Diet: Regular Electrolytes: Replete PRN PPx: Lovenox Access: PIV Dispo: Medicine. PT/OT rec SNF, however there is concern for increased delirium at SNF requiring possible continued mechanical/chemical restraints. Pt would likely benefit more from discharging to familiar environment/faces at home w/ HH including home PT/OT. The above assessment and plan will be discussed with the attending. This note is not final until attested by attending physician. Evin Servin MD Internal Medicine, PGY-1 [facility] 09/02/2024 3:36 PM CH EXAMINER Associated attestation - Amanda Dacosta MD - 09/03/2024 7:47 AM BRANCH EXAMINER Patient seen, examined, chart reviewed and discussed with resident agree with the findings and planof care as documented. Date of Service: 09/02/2024 Problem List: Fall (POA: Yes) Trauma (POA: Yes) Impaired mobility and ADLs (POA: Yes) Altered mental status (POA: Yes) SDH (subdural hematoma) (HCC) (POA: Yes) Fall, subsequent encounter (POA: Yes) Contusion of right lung, initial encounter (POA: Yes) Closed fracture of one rib of right side, initial encounter (POA: Yes) Dementia (HCC) (POA: Yes) Delirium (POA: No) Observed seizure-like activity (HCC) (POA: Yes) Severe protein-calorie malnutrition (HCC) (POA: Yes) Amanda Dacosta MD * Hattie Zee RN - 09/02/2024 9:37 AM CST Care Coordination Initial Assessment Expected Discharge Date: 09/05/2024 Expected Discharge Disposition: [facility] Facility Transportation at Discharge: Ambulance Prior Level of Care: Home;Other (Private caregivers) Prior to Admit Provider: Comments: Admitted for these injuries found on primary/secondary survey after unwitnessed GLF. - chronic bilateral subdural collections/hematomas, up to 9 mm along bifrontal lobes - right 11th posterior rib fracture - Right flank subcutaneous soft tissue stranding - possible lung contusion Lives with: Alone;Other (Comment) (Pt has caregivers at his home) Physical Limitations: Ambulation with use of DME Requires Assistance With: Mobility;Housekeeping;Meal Preparation;Medication Administration;Shopping;Hygiene Preferred Pharmacy: [facility] [id number] [place] [id number] [place] [phone] READMISSION RISK SCORE is 17 at 9:37 AM 09/02/2024. Met with son Family Support (name and phone): Extended Emergency Contact Information Primary Emergency Contact: Frandy Alvares Mobile Relation: Son Secondary Emergency Contact: Shayy Hay Mobile Relation: Friend Patient or account service representative requests care coordination reach out to family or caregiver listed above regarding discharge planning and at time of discharge? Yes Actual Level of Care/Dispostion Details Actual Level of Care at Discharge: Custodial - Skilled Facility Patient / Family provided post-acute services choices?: Yes Durable Medical Equipment Planning Equipment at Home: Bathroom Equipment;Walker;Wheelchair Type of Walker: Front Wheeled Walker Type of Wheelchair: Standard Type of Bathroom Equipment: Shower Chair Bike Shop Manager Referral: Yes Will continue to follow. For any questions or needs please contact: Body Design Checker/Social Work Name/Phone number: Hattie Zee RN CH EXAMINER * Manav Hyatt POCKET MACHINE OPERATOR - 09/02/2024 9:21 AM CST Bike Shop Manager Progress Note Anticipated level of care at discharge: Unknown: Grecia Geronimo 08/30/2024: Discharge Plan: SW spoke with the pt's son in regards about PT/OT recs for SNF. SW offered the pt'sson CHOICE. He is interested in having this pt [facility] to [facility]. Referral has been sent and LAURENCE will follow up accordingly. Orientation Level: Oriented to Person: Family Support (Name and Phone): Extended Emergency Contact Information Primary Emergency Contact: Frandy Alvares Mobile Relation: Son Secondary Emergency Contact: Shayy Hay Mobile Relation: Friend Transportation at Discharge: : READMISSION RISK SCORE is 17 at 9:21 AM 09/02/2024.: Name: CEE Oneill CH EXAMINER * Stephanie Rudolph, AUTO BODY MECHANIC APPRENTICE-HEAT SEALING MACHINE OPERATOR - 09/02/2024 7:37 AM CST [facility] Staff Consult-Liaison Psychiatry Progress Note Name: Frandy Alvares Age: [age] year old Date of : 1935 Date of Note: 09/02/2024 Hospital day: Hospital Day: 7 Reason for Admission: fall Reason for Consult: Delirium, agitation, medication recommendations, specifically, whether quetiapine was still appropriate ID: Frandy Alvares is a 89 year old man with a PMH of multiple falls, HTN, CAD, OA, HLD, chronic SDH and a PPH of MDD,(on lexapro) dementia (on donepazil) of unclear type. Transfer from [facility] 08/28/24, admitted to [facility] for AMS likely 2/2 chronic SDH and fall with head trauma. BAL-neg UDS+ cannabinoids Psychiatry was consulted for delirium, agitation, and medication recommendations Per notes baseline oriented x2 Subjective INTERVAL: Restless overnight. Requiring soft restraints cursing, attempting to punch staff, spitting out food Remains in delirium room for observation Psych PRNs last 24h: prn olanzapine 2.5 mg last given x1 09/01 @1759 [id number] am Attempted to see pt twice during these hours, resting quielty with eyes closed 10:45 am Returned with psych attending, to evaluate pt. general clerk and son present during visit, pt remains resting quietly with eyes closed. Both assembler plastic boat and son indicating pt is currently not at baseline. Normally walks with walker and is overall independent with walking, dressing self, going in car and usually only needs verbal cues. Financial Rep stating seroquel was home medication. Both indicate seroquel was working well for pt and per son even gave pt clarity. Was no longer taking Donepezil Objective: Vitals: Patient Vitals for the past 6 hrs: Temp Pulse Resp BP 09/02/24 0430 97.6 ??F (36.4 ??C) 57 18 130/75 Additional Diagnostic Imaging: Pertinent imaging includes the following: CT Head Wo Contrast Result Date: 08/29/2024 IMPRESSION: 1.Redemonstration of chronic appearing small subdural hematoma along the bilateral anterior convexities measuring up to 9 mm unchanged in size and density compared to prior study. Mild mass effect on the adjacent cerebral hemispheres however without significant midline shift. No new foci of hemorrhage. Report dictated by Faiza Pate MD I, Philomena Hopkins MD have personally reviewed and interpreted this examination/study. > Interpreting Provider: Philomena Hopkins MD on 08/29/2024 12:11 PM EEG showed increased tendency toward seizures and mild/mod encephalopathy. Labs: I have reviewed the patient's lab results from the last 24h. Most recent QTc: 08/30/24 445 Brief Mental Status Examination: Appearance: older white male, appears stated age, bilat soft wrist restraints in place, no acute distress, resting with eyes closed Speech: nonverbal Psychomotor: psychomotor agitation Attitude: not engaged Mood: betina Affect: resting with eyes closed Thought Content: unknown not voicing any suicidal ideation, or homicidal ideation or delusions Perception: not reacting to internal stimuli Insight: betina Judgment: betina Assessment: Frandy Alvares is a 89 year old man with a PMH of multiple falls, HTN, CAD, OA, HLD, chronic SDH and a PPH of MDD,(reportedly was on lexapro) dementia (prev on donepazil no longer taking) of unclear type. Transfer from [facility] 08/28/24, admitted to [facility] for AMS likely 2/2 chronic SDH and fall with head trauma. BAL-neg UDS+ cannabinoids Psychiatry was consulted for delirium, agitation, and medication recommendations Per notes baseline oriented x2. Collateral obtained from assembler plastic boat and son at bedside noted above, indicated pt is currently not at baseline. Normally walks with walker and is overall independent with walking, dressing self, going in car and usually only needs verbal cues. Financial Rep stating seroquel was home medication. Both indicate seroquel was working well for pt and per son even gave pt clarity. Pt resting with eyes closed this am during 3 visits this am. Diagnosis remains consistent delirium as pt is reported not to be at baseline, likely superimposed on dementia. Will resume seroquel aspt was stable on medication at home. Dc trazodone and olanzapine PRN Lethality: Short term risk of suicide- low Risk factors: being male and being elderly, history of dementia and depression Protective factors: positive social support from family/friends, lack of prior suicide attempts, and history of medical compliance Short term risk of harm to others- moderate Risk factors: acute delirium, episodes of agitation, hx dementia Protective factors: denies homicidal ideation, intent, or plan or target and good social support , assembler plastic boat now bedside, no current agitation Overall RISK: low/moderate Psychiatric Diagnoses: Delirium Major Neurocognitive disorder by history Cannabis use MDD by history Plan: Delirium management: - Would benefit from having room with reduced noise/stimuli,that could precipitate or worsen agitation - 1:1 sitter as needed vs observation room Family/assembler plastic boat bedside when possible - Minimize use of opioids, avoid BZDs and medications with anticholinergic activity - Adequate pain control and nutrition - Frequent orientation, provide clock and calendar, minimize staff changes - Ensure no urine / stool retention - Minimize use of physical restraints - Maintain regular sleep-wake cycle F/u repeat EKG Cont to monitor for QTc prolongation Psychiatric Medications: Scheduled Psych Meds: per discussion with family pt ws doing very well at home on seroquel Dc trazodone DC olanzapine Will resume home seroquel 25 mg PO in am and 12.5 mg HS Can use seroquel 25 mg PO TID PRN for non redirectable agitation If would need IM PRN consider 2.5 mg PRN zyprexa IM-but would avoid if possible and only use if absolutely necessary ie pt danger to self or others Pt was no longer taking donepezil at home per rn patient care -Consider alternate AED to keppra in consultation with neurology if patient's delirium does not improve, although this must be balanced against the patient's potential seizure risk. Precautions: Delirium, Elopement, Assault, Fall, Seizure Psychosocial needs: We greatly appreciate social work's support with discharge planning in coordination with son Time spent: > 65 minutes in chart review, interview of pt and treatment planning Psychiatry will cont to follow and make further recommendations as needed please feel free to call psychiatry with any acute issues or questions Pt was discussed and seen with psychiatric attending DR Mccoy who agrees with imp/plan Stephanie Rudolph MSN PMNS- CH EXAMINER Associated attestation - Forest Mccyo MD - 09/03/2024 9:17 AM BRANCH EXAMINER Psychiatry Attending Note I have seen and examined the patient with [employer] Stephanie Rudolph. In addition, I have read the initial H&P/Consult note by Dr. Vogel and agree with their initial assessment and plan. I have discussed the plan of care with KRISS Brown, and agree with her assessment and plan as noted. Please see [employer] Stephanie's comprehensive note for full details of assessment and plan. Date of Service: 09/02/2024 Forest Mccoy MD [facility] Department of Psychiatry and Behavioral Neuroscience * Tom Contreras RN - 09/01/2024 6:04 PM CST This author spoke with Dr. Servin to obtain orders to use soft restraints, having previously taken patient out of restraints earlier this shift. The patient was cussing and attempting to punch and kick this author. Successfully restrained without incident and given PRN zyprexa orally. When attempting to feed patient he spit food out at this author while cussing, and refusing to eat any more food. Relayed information about re-restraint to 8-S charge nurse, and nursing order from MD regarding soft restraint has been acknowledged by this author. CH EXAMINER * Juany Perez PT - 09/01/2024 1:08 PM CST [facility] Physical Medicine and Rehabilitation Physical Therapy Initial Evaluation Note Patient: Frandy Alvares [facility] Record Number: [id number] Date of : 1935 Age: [age] year old PPE worn by staff: gloves;mask - procedural PPE worn by patient: gown - patient, clean;socks - clean Recommendations: Discharge PT Discharge Recommendations: Patient would benefit from multidisciplinary therapy This recommendation is made due to ongoing PT functional needs: address functional deficits Recommended Transportation Method: Stretcher/Ambulance In addition to the 1:1 evaluation of the patient, additional eval time was spent completing the chart review prior to the assessment, completing the multidisciplinary plan of care and education plan post evaluation and communicating results of the eval to other treatment team members. Physician Orders: Evaluation and Treat PRECAUTIONS: Weight Bearing Status: (no restrictions) Activity Level: Activity as Tolerated DIAGNOSIS: Patient Active Problem List: Inflamed seborrheic [...] seizure-like activity (HCC) Severe protein-calorie malnutrition (HCC) Past Medical History: Diagnosis Date Actinic keratosis Dementia (HCC) Squamous cell carcinoma SUBJECTIVE: Subjective: Patient is willing to work with PT PATIENT GOALS: Patient's Primary Concern: uanble to state Home Situation: Type of Residence: (patient unable to state PLOF and home set up; per chart review lives with son and is ambulatory) Prior Level of Functioning: Pain Assessment: Pain Location #1 Pain Scale/Observation: Behaviors Pain Rating Score #1: 3 Sedation Level #1: 1-Awake and alert Behaviors/Assumed Pain Present : Fidgeting OBJECTIVE: At start of therapy session, patient found in bed and lap belt and B wrist restraints . General Appearance: 89 y.o. M resting in bed LDAs: Floor: IVs: Peripheral line Edema: no edema noted in bilateral lower extremities Vitals: No signs or symptoms of distress Mental Status/Cognition: Level of Consciousness-Adult: Alert Orientation Level: (oriented to name, stated in hospital, disoriented to time) Cognition: Follows Commands-inconsistent;Processing-delayed;Judgement-decreased;Safety awareness-decreased ROM: RLE: AROM WFL LLE: AROM WFL Strength: RLE: unable to formally assess 2/2 decrease command following, appears to be grossly WFL with sit<->stand LLE: unable to formally assess 2/2 decrease command following, appears to be grossly WFL with sit<->stand Sensation: RLE: unable to formally assess 2/2 decrease command following LLE: unable to formally assess 2/2 decrease command following Mobility: A gait belt and non-slip socks were used for all out of bed activity this date. Bed Mobility: Rolling: Moderate Assistance to Right Supine to Sit: Moderate Assistance with HOB in semi-fowlers position Sit to Supine: Moderate Assistance Transfers: Sit to Stand: Moderate Assistance Stand to Sit: Moderate Assistance Patient stood briefly then reported he needed to sit and sat down Transfer Device: Gait belt;Walker-2 Wheeled Gait: Weight Bearing Status: (no restrictions) Distance Ambulated (ft): 2 FEET (side stepping towards HOB) Ambulation: Assistive Device: Gait Belt;Walker-2 Wheeled Ambulation: Level of Assistance: Moderate Assistance Ambulation: Gait Deviations: Anh - Decreased;Increased Trunk Flexion Balance: Balance Scales/Tests Used: Sitting: Static/Dynamic;Standing: Static/Dynamic Sitting - Static: Good - Sitting - Dynamic: Good - Standing - Static: Fair Standing - Dynamic: Poor + ACTIVITY TOLERANCE: Patient's activity tolerance: fair TREATMENT/INTERVENTIONS: evaluation, bed mobility training, and gait training Modified [place]: Current Modified Bruce Score: 4 AM-PAC 6 Clicks Mobility Raw Score:: 11 EDUCATION: While performing PT, Patient was instructed in:functional mobility training, safety awareness/fall precautions Presented to patient who demonstrates Poor understanding of instructions given. INFORMED CONSENT TO TREATMENT: Plan of care including recommended therapy, goals and frequency, discussed with patient who understands and agrees to proceed. ASSESSMENT: Patient would benefit from additional Physical Therapy sessions to achieve the following functionalgoals to enhance independence. Short Term Goals: Goal Formation Patient unable to participate in goal formulation Patient will perform bed mobility with minimal assist Patient will transfer sit to/from stand with minimal assist Patient will transfer bed to/from chair with minimal assist Patient will ambulate 50 feet with minimal assist Mcc Goal(s): Patient to discharge to appropriate next level of inpatient care. Equipment Issued: gait belt Plan: Gait training Transfer training Assistive device training Endurance training Bed mobility training Balance training Energy conservation techniques Safety awareness If patient is discharged from the facility, this note serves as a discharge summary if further physical therapy visits did not occur. Refer to filed flowsheet for further details. Following therapy session, patient left in bed, with call light within reach, RN Tom aware of restraints not placed back on patient as patient was calm during session and resting calmly . CH EXAMINER * Evin Servin MD - 09/01/2024 12:06 PM CST [facility] INTERNAL MEDICINE PROGRESS NOTE Patient: Frandy Alvares Sex: male Age: [age] year old Date of : 1935 Date of Admission: 08/27/2024 Date: 09/01/2024 LOS: 4 SUBJECTIVE Interval History: NAEON. VSS. A&Ox1. Much more calm this morning after switching quetiapine to trazodone TID yesterday. Working pleasantly with PT. Removed physical restraints. Awaiting MRI brain prior to discharge back home in more familiar environment. Hospital Course: Frandy Alvares is an 89 y/o M with PMH of dementia (on donepezil), multiple falls, HTN, CAD, OA, HLD, and actinic keratoses who presented for unwitnessed fall at his home in his bathroom with unknownLOC. Pt initially presented to [facility] with increased AMS, received 5mg Ativan, and was transferred for further eval. Pt arrived to [facility] as a trauma with finding on imaging of chronic SDH (b/l frontal lobes) and 11th post rib Fx. Pt admitted to trauma floor for further care. Started on analgesia, bronchial hygiene, and incentive spirometry. Per son, Pt had been increasingly confused over the prior week with multiple falls recently on ASA. Stated baseline AMS was A&Ox2. NSGY consulted for SDH and recommend no acute intervention. Geriatric medicine consulted and determined delirium in the setting of immobility, falls w/ head trauma, SDH, dementia, risk of constipation, risk of urinary retention, and sleep deprivation. Recommended delirium precautions, pain control, cont nightly quetiapine, and discontinued Hydroxyzine BID. On HOD #1, Pt was witnessed to have tonic/clonic event, which was reported to have happened before by caregiver. Neurology was consulted who recommended routine EEG, MRI brain, and loaded Keppra and started maintenance Keppra 500mg BID. On HOD #2, Pt was requested by trauma for IM to take over as primary. EEG showed increased tendency toward seizures and mild/mod encephalopathy. OBJECTIVE Vital Signs: Vitals: 08/31/24 1741 08/31/24200408/31/24 2255 09/01/24 0404 BP: 98/51 147/79 144/50 137/75 Pulse: 75 83 64 64 Resp: 17 18 18 18 Temp: 97.5 ??F (36.4 ??C) 98.8 ??F (37.1 ??C) 98.7 ??F (37.1 ??C) 98.6 ??F (37 ??C) SpO2: 97% 97% 98% 96% Weight: Height: Temp Min: 96.4 ??F (35.8 ??C) Max: 98.8 ??F (37.1 ??C), Pulse Min: 53 Max: 120, Resp Min: 11 Max: 28, BP Min: 98/51 Max: 179/89 Intake & Output: In: 480 [P.O.:480] Out: 500 [Urine:500] Physical Exam: General: No acute distress, resting comfortably in bed. Cachectic. Neck: Supple. Trachea midline. Heart: RRR. No murmurs appreciated. Chest: Non-labored breathing. Normal breath sounds. Abdomen: Soft, non-tender, non-distended, bowel sounds present. Extremities: No lower extremity edema. Neuro: No focal deficits noted. A&Ox1. Intake/Output Summary (Last 24 hours) at 09/01/2024 1206 Last data filed at 09/01/2024 0638 Gross per 24 hour Intake 240 ml Output 400 ml Net -160 ml Current Medications: Scheduled: 0.9% NaCl 3 mL Intracatheter q8h acetaminophen 1,000 mg Oral TID enoxaparin 30 mg Subcutaneous q12h escitalopram 10 mg Oral QDAY finasteride 5 mg Oral QDAY levETIRAcetam 500 mg Oral BID lidocaine 1 patch Transdermal QDAY melatonin 3 mg Oral AT BEDTIME polyethylene glycol 3350 17 g Oral QDAY senna 8.6 mg Oral QDAY traZODone 25 mg Oral TID Continuous: PRN: SALINE LOCK, INSERT AND MAINTAIN AND 0.9% NaCl AND 0.9% NaCl albuterol-ipratropium OLANZapine (disintegrating) Significant Lab Results: No results found for this or any previous visit (from the past 24 hour(s)). Microbiology: Microbiology Results (Displays last 21 days for this encounter ONLY) Procedure Component Value - Date/Time SARS-COV-2 (COVID-19) RAPID [[id number]] (Normal) Collected: 08/28/24 1105 Lab Status: Final result Specimen: Microbiology from Nasopharyngeal Updated: 08/28/24 1149 COVID-19 PCR Not detected Narrative: The [employer] Xpert Xpress SARS-COV-2 has been authorized by [...] EUA assay are available upon request. Imaging & Studies: XR Ankle Left 3Vw or More Result Date: 08/30/2024 IMPRESSION: No fracture or subluxation or dislocation seen; no suspicious radiopaque foreign body identified. > Interpreting Provider: Tyree Tyler on 08/30/2024 11:[address] Head Wo Contrast Result Date: 08/29/2024 IMPRESSION: 1.Redemonstration of chronic appearing small subdural hematoma along the bilateral anterior convexities measuring up to 9 mm unchanged in size and density compared to prior study. Mild mass effect on the adjacent cerebral hemispheres however without significant midline shift. No new foci of hemorrhage. Report dictated by Faiza Pate MD I, Philomena Hopkins MD have personally reviewed and interpreted this examination/study. > Interpreting Provider: Philomena Hopkins MD on 08/29/2024 12:11 PM XR PELVIS 1 OR 2VW Result Date: 08/28/2024 IMPRESSION: No acute fracture identified. Report dictated by Dante Mcclain MD, MD (residential plumber). Sho Macedo MD have personally reviewed and interpreted this examination/study. > Interpreting Provider: Sho Minaya MD on 08/28/2024 9:15 AM XR Elbow Left 3Vw or More Result Date: 08/28/2024 IMPRESSION: No acute fracture or dislocation identified. Report dictated by Dante Mcclain MD, (residential plumber). Sho Macedo MD have personally reviewed and interpreted this examination/study. > Interpreting Provider: Sho Minaya MD on 08/28/2024 9:13 AM XR Ankle Left 3Vw or More Result Date: 08/28/2024 IMPRESSION: No acute fracture or dislocation identified. Report dictated by Dante Mcclain MD, (residential plumber). Sho Macedo MD have personally reviewed and interpreted this examination/study. > Interpreting Provider: Sho Minaya MD on 08/28/2024 9:[address] CHEST ABDOMEN PELVIS W CONT - Abdomen-pelvis trauma, blunt or penetrating Result Date: 08/28/2024 Impression: Mild limitations to the exam secondary [...] or pelvis. >Dictated by Dorian Cuevas MD (residential plumber). Tyree Macedo have personally reviewed and interpreted this examination/study. > Interpreting Provider: Tyree Tyler on 08/28/2024 8:[address] HEAD WO CONTRAST - Head Trauma, CSF leak, mental status changes Result Date: 08/28/2024 IMPRESSION: Significant motion artifact limits evaluation for [...] report is dictated by Dante Mcclain MD (residential plumber) Kalyani Macedo MD have personally reviewed and interpreted this examination/study. > Interpreting Provider: Kalyani Cortez MD on 08/28/2024 6:[address] FACIAL BONES WO CONTRAST - Facial trauma, fx suspected, blunt Result Date: 08/28/2024 IMPRESSION: Significant motion artifact limits evaluation for [...] report is dictated by Dante Mcclain MD (residential plumber) Kalyani Macedo MD have personally reviewed and interpreted this examination/study. > Interpreting Provider: Kalyani Cortez MD on 08/28/2024 6:[address] CERVICAL SPINE WO CONTRAST - C-Spine Trauma, Spine fracture Result Date: 08/28/2024 IMPRESSION: Significant motion artifact limits evaluation for [...] report is dictated by Dante Mcclain MD (residential plumber) Kalyani Macedo MD have personally reviewed and interpreted this examination/study. > Interpreting Provider: Kalyani Cortez MD on 08/28/2024 6:[address] THORACIC SPINE WO CONTRAST - T/L-spine trauma, spine fracture Result Date: 08/28/2024 IMPRESSION: Significant motion artifact limits evaluation for [...] report is dictated by Dante Mcclain MD (residential plumber) Kalyani Macedo MD have personally reviewed and interpreted this examination/study. > Interpreting Provider: Kalyani Cortez MD on 08/28/2024 6:[address] LUMBAR SPINE WO CONTRAST - T/L-spine trauma, Spine fracture Result Date: 08/28/2024 IMPRESSION: Significant motion artifact limits evaluation for [...] report is dictated by Dante Mcclain MD (residential plumber) I, Kalyani Cortez MD have personally reviewed and interpreted this examination/study. > Interpreting Provider: Kalyani Cortez MD on 08/28/2024 6:41 AM ASSESSMENT & PLAN Fall (POA: Yes) Trauma (POA: Yes) Impaired mobility and ADLs (POA: Yes) Altered mental status (POA: Yes) SDH (subdural hematoma) (HCC) (POA: Yes) Fall, subsequent encounter (POA: Yes) Contusion of right lung, initial encounter (POA: Yes) Closed fracture of one rib of right side, initial encounter (POA: Yes) Dementia (HCC) (POA: Yes) Delirium (POA: No) Observed seizure-like activity (HCC) (POA: Yes) Severe protein-calorie malnutrition (HCC) (POA: Yes) #Delirium #Dementia - resolving delirium. Potential risks for delirium include possible seizure, falls with head trauma, SDH, demenita, risk of constipation, risk of urinary retention, sleep deprivation - Agitation, wandering, A&Ox2 at baseline PLAN: - Delirium precautions - Avoid sedative hypnotics/anticholinergics - Allow family at bedside as much as possible - Avoid restrictions/restraints in general - Allow OOB to chair mobilization - PT/OT - Daily Miralax - Monitor for retention. Bladder scan post void. Straight cath for residuals >350ml - Optimize nutritional status. Ensure supplements TID between meals - Address unrecognized pain. Tylenol 1000mg PO TID - Psychiatry consult for med recs - D/c quetiapine - Cont trazodone 25mg PO TID - Zyprexa 2.5mg sublingual q6H PRN - D/c quetiapine 25mg qAM and 12.5mg nightly for restlessness and sleep #Recurrent Falls - Witnessed seizure-like activity 08/29 and similar Hx per caregiver - several risk factors for seizure (dementia, head trauma, chr SDH) vs likely mechanical falls in the setting of dementia and poor functional status vs syncope - Routine EEG (08/29): Increased tendency toward seizures and mild/moderate encephalopathy PLAN: - Neurology consult - MRI brain w/wo Epilepsy protocol pending - can give Zyprexa to facilitate - Keppra load and Keppra 500mg BID - Orthostatic vitals pending #Severe protein malnutrition - Nutrition - Ensure BID w/ meals and Magic cup daily #MDD with anxiety: continue Lexapro 10mg daily. #BPH: Cont finasteride. Held alfuzosin Code: DNR Diet: Regular Electrolytes: Replete PRN PPx: Lovenox Access: PIV Dispo: Medicine. Discharge home w/ caregivers The above assessment and plan will be discussed with the attending. This note is not final until attested by attending physician. Evin Servin MD Internal Medicine, PGY-1 [facility] 09/01/2024 12:06 PM CH EXAMINER Associated attestation - Amanda Dacosta MD - 09/02/2024 7:49 AM BRANCH EXAMINER Patient seen, examined, chart reviewed and discussed with resident agree with the findings and planof care as documented. Date of Service: 09/01/2024 Problem List: Fall (POA: Yes) Trauma (POA: Yes) Impaired mobility and ADLs (POA: Yes) Altered mental status (POA: Yes) SDH (subdural hematoma) (HCC) (POA: Yes) Fall, subsequent encounter (POA: Yes) Contusion of right lung, initial encounter (POA: Yes) Closed fracture of one rib of right side, initial encounter (POA: Yes) Dementia (HCC) (POA: Yes) Delirium (POA: No) Observed seizure-like activity (HCC) (POA: Yes) Severe protein-calorie malnutrition (HCC) (POA: Yes) Amanda Dacosta MD * Evin Servin MD - 08/31/2024 2:48 PM CST [facility] INTERNAL MEDICINE PROGRESS NOTE Patient: Frandy Alvares Sex: male Age: [age] year old Date of : 1935 Date of Admission: 08/27/2024 Date: 08/31/2024 LOS: 3 SUBJECTIVE Interval History: Very agitated and combative yesterday evening, swinging at staff - received 2mg Haldol and 0.5mg Ativan and wrist restraints/lap belt renewed. Fluctuating A&Ox1-2 this morning. Stated name, but incorrect year and place. He is more restless this morning trying to get out of bed. VSS. Hospital Course: Frandy Alvares is an 89 y/o M with PMH of dementia (on donepezil), multiple falls, HTN, CAD, OA, HLD, and actinic keratoses who presented for unwitnessed fall at his home in his bathroom with unknownLOC. Pt initially presented to [facility] with increased AMS, received 5mg Ativan, and was transferred for further eval. Pt arrived to [facility] as a trauma with finding on imaging of chronic SDH (b/l frontal lobes) and 11th post rib Fx. Pt admitted to trauma floor for further care. Started on analgesia, bronchial hygiene, and incentive spirometry. Per son, Pt had been increasingly confused over the prior week with multiple falls recently on ASA. Stated baseline AMS was A&Ox2. NSGY consulted for SDH and recommend no acute intervention. Geriatric medicine consulted and determined delirium in the setting of immobility, falls w/ head trauma, SDH, dementia, risk of constipation, risk of urinary retention, and sleep deprivation. Recommended delirium precautions, pain control, cont nightly quetiapine, and discontinued Hydroxyzine BID. On HOD #1, Pt was witnessed to have tonic/clonic event, which was reported to have happened before by caregiver. Neurology was consulted who recommended routine EEG, MRI brain, and loaded Keppra and started maintenance Keppra 500mg BID. On HOD #2, Pt was requested by trauma for IM to take over as primary. EEG showed increased tendency toward seizures and mild/mod encephalopathy. OBJECTIVE Vital Signs: Vitals: 08/31/24 0014 08/31/24 0412 08/31/24 0848 08/31/24 1207 BP: 144/72 160/66 123/98 165/75 Pulse: 53 69 93 75 Resp: 18 18 18 12 Temp: 97.5 ??F (36.4 ??C) 97.9 ??F (36.6 ??C) 97.5 ??F (36.4 ??C) 98.2 ??F (36.8 ??C) SpO2: 98% 96% 97% 100% Weight: Height: Temp Min: 96.4 ??F (35.8 ??C) Max: 98.2 ??F (36.8 ??C), Pulse Min: 53 Max: 120, Resp Min: 11 Max: 28, BP Min: 120/76 Max: 179/89 Intake & Output: In: 580 [P.O.:580] Out: - Physical Exam: General: No acute distress, resting comfortably in bed. Cachectic. Neck: Supple. Trachea midline. Heart: RRR. No murmurs appreciated. Chest: Non-labored breathing. Normal breath sounds. Abdomen: Soft, non-tender, non-distended, bowel sounds present. Extremities: No lower extremity edema. Neuro: No focal deficits noted. A&Ox1. Intake/Output Summary (Last 24 hours) at 08/31/2024 1448 Last data filed at 08/31/2024 1313 Gross per 24 hour Intake 460 ml Output 100 ml Net 360 ml Current Medications: Scheduled: 0.9% NaCl 3 mL Intracatheter q8h acetaminophen 1,000 mg Oral TID enoxaparin 30 mg Subcutaneous q12h escitalopram 10 mg Oral QDAY finasteride 5 mg Oral QDAY levETIRAcetam 500 mg Oral BID lidocaine 1 patch Transdermal QDAY polyethylene glycol 3350 17 g Oral QDAY senna 8.6 mg Oral QDAY traZODone 25 mg Oral TID Continuous: PRN: SALINE LOCK, INSERT AND MAINTAIN AND 0.9% NaCl AND 0.9% NaCl albuterol-ipratropium melatonin OLANZapine (disintegrating) Significant Lab Results: No results found for this or any previous visit (from the past 24 hour(s)). Microbiology: Microbiology Results (Displays last 21 days for this encounter ONLY) Procedure Component Value - Date/Time SARS-COV-2 (COVID-19) RAPID [[id number]] (Normal) Collected: 08/28/24 1105 Lab Status: Final result Specimen: Microbiology from Nasopharyngeal Updated: 08/28/24 1149 COVID-19 PCR Not detected Narrative: The [employer] Xpert Xpress SARS-COV-2 has been authorized by [...] EUA assay are available upon request. Imaging & Studies: XR Ankle Left 3Vw or More Result Date: 08/30/2024 IMPRESSION: No fracture or subluxation or dislocation seen; no suspicious radiopaque foreign body identified. > Interpreting Provider: Tyree Tyler on 08/30/2024 11:[address] Head Wo Contrast Result Date: 08/29/2024 IMPRESSION: 1.Redemonstration of chronic appearing small subdural [...] PELVIS 1 OR 2VW Result Date: 08/28/2024 IMPRESSION: No acute fracture identified. Report dictated by Dante Mcclain MD, MD (residential plumber). Sho Macedo MD have personally reviewed and interpreted this examination/study. > Interpreting Provider: Sho Minaya MD on 08/28/2024 9:15 AM XR Elbow Left 3Vw or More Result Date: 08/28/2024 IMPRESSION: No acute fracture or dislocation identified. Report dictated by Dante Mcclain MD, (residential plumber). Sho Macedo MD have personally reviewed and interpreted this examination/study. > Interpreting Provider: Sho Minaya MD on 08/28/2024 9:13 AM XR Ankle Left 3Vw or More Result Date: 08/28/2024 IMPRESSION: No acute fracture or dislocation identified. Report dictated by Dante Mcclain MD, (residential plumber). Sho Macedo MD have personally reviewed and interpreted this examination/study. > Interpreting Provider: Sho Minaya MD on 08/28/2024 9:[address] CHEST ABDOMEN PELVIS W CONT - Abdomen-pelvis trauma, blunt or penetrating Result Date: 08/28/2024 Impression: Mild limitations to the exam secondary [...] or pelvis. >Dictated by Dorian Cuevas MD (residential plumber). Tyree Macedo have personally reviewed and interpreted this examination/study. > Interpreting Provider: Tyree Tyler on 08/28/2024 8:[address] HEAD WO CONTRAST - Head Trauma, CSF leak, mental status changes Result Date: 08/28/2024 IMPRESSION: Significant motion artifact limits evaluation for [...] report is dictated by Dante Mcclain MD (residential plumber) Kalyani Macedo MD have personally reviewed and interpreted this examination/study. > Interpreting Provider: Kalyani Cortez MD on 08/28/2024 6:[address] FACIAL BONES WO CONTRAST - Facial trauma, fx suspected, blunt Result Date: 08/28/2024 IMPRESSION: Significant motion artifact limits evaluation for [...] report is dictated by Dante Mcclain MD (residential plumber) Kalyani Macedo MD have personally reviewed and interpreted this examination/study. > Interpreting Provider: Kalyani Cortez MD on 08/28/2024 6:[address] CERVICAL SPINE WO CONTRAST - C-Spine Trauma, Spine fracture Result Date: 08/28/2024 IMPRESSION: Significant motion artifact limits evaluation for [...] report is dictated by Dante Mcclain MD (residential plumber) Kalyani Macedo MD have personally reviewed and interpreted this examination/study. > Interpreting Provider: Kalyani Cortez MD on 08/28/2024 6:[address] THORACIC SPINE WO CONTRAST - T/L-spine trauma, spine fracture Result Date: 08/28/2024 IMPRESSION: Significant motion artifact limits evaluation for [...] report is dictated by Dante Mcclain MD (residential plumber) Kalyani Macedo MD have personally reviewed and interpreted this examination/study. > Interpreting Provider: Kalyani Cortez MD on 08/28/2024 6:[address] LUMBAR SPINE WO CONTRAST - T/L-spine trauma, Spine fracture Result Date: 08/28/2024 IMPRESSION: Significant motion artifact limits evaluation for [...] report is dictated by Dante Mcclain MD (residential plumber) Kalyani Macedo MD have personally reviewed and interpreted this examination/study. > Interpreting Provider: Kalyain Cortez MD on 08/28/2024 6:41 AM ASSESSMENT & PLAN Fall (POA: Yes) Trauma (POA: Yes) Impaired mobility and ADLs (POA: Yes) Altered mental status (POA: Yes) SDH (subdural hematoma) (HCC) (POA: Yes) Fall, subsequent encounter (POA: Yes) Contusion of right lung, initial encounter (POA: Yes) Closed fracture of one rib of right side, initial encounter (POA: Yes) Dementia (HCC) (POA: Yes) Delirium (POA: No) Observed seizure-like activity (HCC) (POA: Yes) Severe protein-calorie malnutrition (HCC) (POA: Yes) #Delirium #Dementia - resolving delirium. Potential risks for delirium include possible seizure, falls with head trauma, SDH, demenita, risk of constipation, risk of urinary retention, sleep deprivation - Agitation, wandering, A&Ox2 at baseline PLAN: - Delirium precautions - Avoid sedative hypnotics/anticholinergics - Allow family at bedside as much as possible - Avoid restrictions/restraints in general - Allow OOB to chair mobilization - PT/OT - Daily Miralax - Monitor for retention. Bladder scan post void. Straight cath for residuals >350ml - Optimize nutritional status. Ensure supplements TID between meals - Address unrecognized pain. Tylenol 1000mg PO TID - Psychiatry consult for med recs - D/c quetiapine - Start trazodone 25mg PO TID - Zyprexa 2.5mg sublingual q6H PRN - D/c quetiapine 25mg qAM and 12.5mg nightly for restlessness and sleep #Recurrent Falls - Witnessed seizure-like activity 08/29 and similar Hx per caregiver - several risk factors for seizure (dementia, head trauma, chr SDH) vs likely mechanical falls in the setting of dementia and poor functional status vs syncope - Routine EEG (08/29): Increased tendency toward seizures and mild/moderate encephalopathy PLAN: - Neurology consult - MRI brain w/wo Epilepsy protocol pending - can give Zyprexa to facilitate - Keppra load and Keppra 500mg BID - Orthostatic vitals pending #Severe protein malnutrition - Nutrition - Ensure BID w/ meals and Magic cup daily #MDD with anxiety: continue Lexapro 10mg daily. #BPH: Cont finasteride. Held alfuzosin Code: DNR Diet: Regular Electrolytes: Replete PRN PPx: Lovenox Access: PIV Dispo: Medicine The above assessment and plan will be discussed with the attending. This note is not final until attested by attending physician. Evin Servin MD Internal Medicine, PGY-1 [facility] 08/31/2024 2:48 PM CH EXAMINER Associated attestation - Keely Carmona MD - 08/31/2024 3:43 PM BRANCH EXAMINER I have personally interviewed and independently examined the patient, and discussed the case with the team on 08/31/2024. I agree with the documented history, physical exam, assessment and plan as documented by the resident. Assessment: Fall (POA: Yes) Trauma (POA: Yes) Impaired mobility and ADLs (POA: Yes) Altered mental status (POA: Yes) SDH (subdural hematoma) (HCC) (POA: Yes) Fall, subsequent encounter (POA: Yes) Contusion of right lung, initial encounter (POA: Yes) Closed fracture of one rib of right side, initial encounter (POA: Yes) Dementia (HCC) (POA: Yes) Delirium (POA: No) Observed seizure-like activity (HCC) (POA: Yes) Severe protein-calorie malnutrition (HCC) (POA: Yes) Appreciate psych assistance with management of delirium in the setting of dementia. MRI brain pending, but query if patient will be able to tolerate imaging study and follow necessary directions. Please see resident note for further details. Keely Carmona MD * Juany Perez, PT - 08/31/2024 2:37 PM CST [facility] Department of Physical Medicine & Rehabilitation Progress Note Patient: Frandy Alvares Med Record Number: [id number] Date of : 1935 Age: [age] year old 08/31/24 1400 Missed Visit Missed Visit Other (Comment) Patient restless with eye closed in bed with lap belt and B wrist restraints. Will continue to follow. CH EXAMINER * Mitesh Lara RN - 08/31/2024 11:37 AM CST Received pt agitated,does not follow commands,combative,trying to get out of bed.Rx restraints in place.Vss,wnl.Due meds administered,crushed with apple sauce,pt tolerated.Son came assisted pt to eat,noted with good appetite.Skin check done.Kept dry,warm & comfortable.Will cont to monitor. CH EXAMINER * Evin Servin MD - 08/30/2024 1:11 PM CST [facility] INTERNAL MEDICINE PROGRESS NOTE Patient: Frandy Alvares Sex: male Age: [age] year old Date of : 1935 Date of Admission: 08/27/2024 Date: 08/30/2024 LOS: 2 SUBJECTIVE Interval History: NAEON. Fluctuating A&Ox1-2 this morning, but drowsy. Stated name, but incorrect year and believed he was at someone's home. Following commands. Hospital Course: Frandy Alvares is an 89 y/o M with PMH of dementia (on donepezil), multiple falls, HTN, CAD, OA, HLD, and actinic keratoses who presented for unwitnessed fall at his home in his bathroom with unknownLOC. Pt initially presented to [facility] with increased AMS, received 5mg Ativan, and was transferred for further eval. Pt arrived to [facility] as a trauma with finding on imaging of chronic SDH (b/l frontal lobes) and 11th post rib Fx. Pt admitted to trauma floor for further care. Started on analgesia, bronchial hygiene, and incentive spirometry. Per son, Pt had been increasingly confused over the prior week with multiple falls recently on ASA. Stated baseline AMS was A&Ox2. NSGY consulted for SDH and recommend no acute intervention. Geriatric medicine consulted and determined delirium in the setting of immobility, falls w/ head trauma, SDH, dementia, risk of constipation, risk of urinary retention, and sleep deprivation. Recommended delirium precautions, pain control, cont nightly quetiapine, and discontinued Hydroxyzine BID. On HOD #1, Pt was witnessed to have tonic/clonic event, which was reported to have happened before by caregiver. Neurology was consulted who recommended routine EEG, MRI brain, and loaded Keppra and started maintenance Keppra 500mg BID. On HOD #2, Pt was requested by trauma for IM to take over as primary. EEG showed increased tendency toward seizures and mild/mod encephalopathy. OBJECTIVE Vital Signs: Vitals: 08/30/24 0839 08/30/24 0930 08/30/24 1025 08/30/24 1133 BP: 153/73 133/98 Pulse: 56 56 (!) 120 Resp: 18 18 Temp: (!) 96.4 ??F (35.8 ??C) SpO2: 99% 99% 99% Weight: Height: Temp Min: 96.4 ??F (35.8 ??C) Max: 98.2 ??F (36.8 ??C), Pulse Min: 56 Max: 120, Resp Min: 11 Max: 28, BP Min: 120/76 Max: 179/89 Intake & Output: In: 720 [P.O.:720] Out: 500 [Urine:500] Physical Exam: General: No acute distress, resting comfortably in bed. Cachectic. Neck: Supple. Trachea midline. Heart: RRR. No murmurs appreciated. Chest: Non-labored breathing. Normal breath sounds. Abdomen: Soft, non-tender, non-distended, bowel sounds present. Extremities: No lower extremity edema. Neuro: No focal deficits noted. A&Ox1. Intake/Output Summary (Last 24 hours) at 08/30/2024 1311 Last data filed at 08/30/2024 0800 Gross per 24 hour Intake 480 ml Output -- Net 480 ml Current Medications: Scheduled: 0.9% NaCl 3 mL Intracatheter q8h acetaminophen 1,000 mg Oral TID enoxaparin 30 mg Subcutaneous q12h escitalopram 10 mg Oral QDAY famotidine 20 mg Oral QDAY finasteride 5 mg Oral QDAY levETIRAcetam 500 mg Oral BID lidocaine 1 patch Transdermal QDAY metoprolol succinate XL 24hr 12.5 mg Oral QDAY polyethylene glycol 3350 17 g Oral QDAY potassium - sodium phosphates 1 packet Oral TID WC QUEtiapine 12.5 mg Oral AT BEDTIME QUEtiapine 25 mg Oral QDAY senna 8.6 mg Oral QDAY Continuous: PRN: SALINE LOCK, INSERT AND MAINTAIN AND 0.9% NaCl AND 0.9% NaCl albuterol-ipratropium melatonin Significant Lab Results: No results found for this or any previous visit (from the past 24 hour(s)). Microbiology: Microbiology Results (Displays last 21 days for this encounter ONLY) Procedure Component Value - Date/Time SARS-COV-2 (COVID-19) RAPID [[id number]] (Normal) Collected: 08/28/24 1105 Lab Status: Final result Specimen: Microbiology from Nasopharyngeal Updated: 08/28/24 1149 COVID-19 PCR Not detected Narrative: The [employer] Xpert Xpress SARS-COV-2 has been authorized by [...] EUA assay are available upon request. Imaging & Studies: XR Ankle Left 3Vw or More Result Date: 08/30/2024 IMPRESSION: No fracture or subluxation or dislocation seen; no suspicious radiopaque foreign body identified. > Interpreting Provider: Tyree Tyler on 08/30/2024 11:[address] Head Wo Contrast Result Date: 08/29/2024 IMPRESSION: 1.Redemonstration of chronic appearing small subdural hematoma along the bilateral anterior convexities measuring up to 9 mm unchanged in size and density compared to prior study. Mild mass effect on the adjacent cerebral hemispheres however without significant midline shift. No new foci of hemorrhage. Report dictated by Faiza Pate MD I, Philomena Hopkins MD have personally reviewed and interpreted this examination/study. > Interpreting Provider: Philomena Hopkins MD on 08/29/2024 12:11 PM XR PELVIS 1 OR 2VW Result Date: 08/28/2024 IMPRESSION: No acute fracture identified. Report dictated by Dante Mcclain MD, (residential plumber). ISho MD have personally reviewed and interpreted this examination/study. > Interpreting Provider: Sho Minaya MD on 08/28/2024 9:15 AM XR Elbow Left 3Vw or More Result Date: 08/28/2024 IMPRESSION: No acute fracture or dislocation identified. Report dictated by Dante Mcclain MD, (residential plumber). Sho Macedo MD have personally reviewed and interpreted this examination/study. > Interpreting Provider: Sho Minaya MD on 08/28/2024 9:13 AM XR Ankle Left 3Vw or More Result Date: 08/28/2024 IMPRESSION: No acute fracture or dislocation identified. Report dictated by Dante Mcclain MD, (residential plumber). Sho Macedo MD have personally reviewed and interpreted this examination/study. > Interpreting Provider: Sho Minaya MD on 08/28/2024 9:[address] CHEST ABDOMEN PELVIS W CONT - Abdomen-pelvis trauma, blunt or penetrating Result Date: 08/28/2024 Impression: Mild limitations to the exam secondary [...] or pelvis. >Dictated by Dorian Cuevas MD (residential plumber). Tyree Macedo have personally reviewed and interpreted this examination/study. > Interpreting Provider: Tyree Tyler on 08/28/2024 8:[address] HEAD WO CONTRAST - Head Trauma, CSF leak, mental status changes Result Date: 08/28/2024 IMPRESSION: Significant motion artifact limits evaluation for [...] report is dictated by Dante Mcclain MD (residential plumber) Kalyani Macedo MD have personally reviewed and interpreted this examination/study. > Interpreting Provider: Kalyani Cortez MD on 08/28/2024 6:[address] FACIAL BONES WO CONTRAST - Facial trauma, fx suspected, blunt Result Date: 08/28/2024 IMPRESSION: Significant motion artifact limits evaluation for [...] report is dictated by Dante Mcclain MD (residential plumber) Kalyani Macedo MD have personally reviewed and interpreted this examination/study. > Interpreting Provider: Kalyani Cortez MD on 08/28/2024 6:[address] CERVICAL SPINE WO CONTRAST - C-Spine Trauma, Spine fracture Result Date: 08/28/2024 IMPRESSION: Significant motion artifact limits evaluation for [...] report is dictated by Dante Mcclain MD (residential plumber) Kalyani Macedo MD have personally reviewed and interpreted this examination/study. > Interpreting Provider: Kalyani Cortez MD on 08/28/2024 6:[address] THORACIC SPINE WO CONTRAST - T/L-spine trauma, spine fracture Result Date: 08/28/2024 IMPRESSION: Significant motion artifact limits evaluation for [...] report is dictated by Dante Mcclain MD (residential plumber) Kalyani Macedo MD have personally reviewed and interpreted this examination/study. > Interpreting Provider: Kalyani Cortez MD on 08/28/2024 6:[address] LUMBAR SPINE WO CONTRAST - T/L-spine trauma, Spine fracture Result Date: 08/28/2024 IMPRESSION: Significant motion artifact limits evaluation for [...] report is dictated by Dante Mcclain MD (residential plumber) Kalyani Macedo MD have personally reviewed and interpreted this examination/study. > Interpreting Provider: Kalyani Cortez MD on 08/28/2024 6:41 AM ASSESSMENT & PLAN Trauma (POA: Unknown) Impaired mobility and ADLs (POA: Unknown) Altered mental status (POA: Unknown) Fall (POA: Unknown) SDH (subdural hematoma) (HCC) (POA: Unknown) Fall, subsequent encounter (POA: Unknown) Contusion of right lung, initial encounter (POA: Unknown) Closed fracture of one rib of right side, initial encounter (POA: Unknown) #Delirium #Dementia - resolving delirium. Potential risks for delirium include possible seizure, falls with head trauma, SDH, demenita, risk of constipation, risk of urinary retention, sleep deprivation - Agitation, wandering, A&Ox2 at baseline PLAN: - Delirium precautions - Avoid sedative hypnotics/anticholinergics - Allow family at bedside as much as possible - Avoid restrictions/restraints in general - Allow OOB to chair mobilization - PT/OT - Daily Miralax - Monitor for retention. Bladder scan post void. Straight cath for residuals >350ml - Optimize nutritional status. Ensure supplements TID between meals - Address unrecognized pain. Tylenol 1000mg PO TID - Cont quetiapine 25mg qAM and 12.5mg nightly for restlessness and sleep #Recurrent Falls - Witnessed seizure-like activity 08/29 and similar Hx per caregiver - several risk factors for seizure (dementia, head trauma, chr SDH) vs likely mechanical falls in the setting of dementia and poor functional status vs syncope - Routine EEG (08/29): Increased tendency toward seizures and mild/moderate encephalopathy PLAN: - Neurology consult - MRI brain w/wo - Keppra load and Keppra 500mg BID - Orthostatic vitals pending #Severe protein malnutrition - Nutrition - Ensure BID w/ meals and Magic cup daily #MDD with anxiety: continue Lexapro 10mg daily. #BPH: Cont finasteride. Held alfuzosin Code: DNR Diet: Regular Electrolytes: Replete PRN PPx: Lovenox Access: PIV Dispo: Medicine The above assessment and plan will be discussed with the attending. This note is not final until attested by attending physician. Evin Servin MD Internal Medicine, PGY-1 [facility] 08/30/2024 1:11 PM CH EXAMINER Associated attestation - Keely Carmona MD - 08/30/2024 2:20 PM BRANCH EXAMINER I have personally interviewed and independently examined the patient, and discussed the case with the team on 08/30/2024. I agree with the documented history, physical exam, assessment and plan as documented by the resident. Assessment: Fall (POA: Yes) Trauma (POA: Yes) Impaired mobility and ADLs (POA: Yes) Altered mental status (POA: Yes) SDH (subdural hematoma) (HCC) (POA: Yes) Fall, subsequent encounter (POA: Yes) Contusion of right lung, initial encounter (POA: Yes) Closed fracture of one rib of right side, initial encounter (POA: Yes) Dementia (HCC) (POA: Yes) Delirium (POA: No) Observed seizure-like activity (HCC) (POA: Yes) Please see resident note for further details. Keely Carmona MD * Ibrahima Mauricio RN - 08/30/2024 12:51 PM CST Care Coordination Progress Note Expected Discharge Date: 08/30/2024 Discharge Plan: Attempted bedside assessment at 0935 (pt sleeping at that time). Pt to have brain MRI; need neuro recs; need PT/OT recommendations (probable return to previous care). Family Support (Name and Phone): Extended Emergency Contact Information Primary Emergency Contact: Frandy Alvares Mobile Relation: Son Secondary Emergency Contact: Shayy Hay Mobile Relation: Friend Transportation at Discharge: : READMISSION RISK SCORE is 16 at 12:51 PM 08/30/2024.: [email or web address] MALI GALLOWAY, MA-Certification, A.D.N, BSN [phone] CH EXAMINER * James Carr RN - 08/30/2024 12:15 PM CST Problem: Safety related to restraint use Goal: Absence of injury while restrained Outcome: Progressing Problem: Pain/Discomfort Goal: Patient exhibits reduced pain/discomfort as evidenced by pain scores Outcome: Progressing Goal: Patient uses pharmacological and non-pharmacological pain management strategies. Outcome: Progressing Goal: Patient verbalizes acceptable level of pain relief and ability to engage in desired activity. Outcome: Progressing Problem: Fall Risk Goal: Fall risk and fall related injury risk are minimized (interventions related to the fall risk can be found in the flowsheet documentation) Outcome: Progressing Problem: Risk for Violence: Self-Directed or Other Directed Description: Diagnosis: Risk for self-directed Violence or Risk for Directed Violence Risk Factors: Biochemical/neurologic imbalances, impulsivity, manic excitement, psychotic symptomatology, rage reaction, restlessness Possibly Evidenced By: agitated behaviors, delusional thinking, hallucinations, loud/threatening/profane speech, poor impulse control, provocative behaviors, verbal threats against others, verbal threats against self Goal: Patient will verbalize control of feelings. Outcome: Progressing Goal: Patient will respond to interventions when potential or actual loss of control occurs. Outcome: Progressing Goal: Patient will refrain from provoking others to physical harm. Outcome: Progressing Goal: Patient will display nonviolent behaviors toward others in the hospital, with the aid of medications and nursing interventions. Outcome: Progressing Goal: Patient will seek help when experiencing aggressive impulses. Outcome: Progressing Goal: Patient will refrain from verbal threats and loud, profrane language toward others. Outcome: Progressing Goal: Patient will be safe and free from injury. Outcome: Progressing Problem: Balance Goal: LTG - Patient will maintain balance to allow for safe mobility Outcome: Progressing Problem: Skin Integrity Goal: Skin integrity is maintained or improved Outcome: Progressing Problem: Nutrient: Malnutrition Goal: Total intake will meet estimated nutrient needs Outcome: Progressing CH EXAMINER * Rod Still MD - 08/30/2024 11:12 AM CST Neurology Plan of Care 89yoM with recent falls with reported associated tonic-clonic movements, concern for seizure. Routine EEG completed with evidence of bifrontal epileptiform discharges. MRI Brain WWO pending. Patient remains without focal deficits on exam, is oriented to self only. Recommend continuing maintenance Keppra, and will follow up on results of MRI Brain. Recommendations - MRI Brain WWO with Epilepsy protocol - ordered - Cont Keppra 500mg BID - Cont delirium precautions - Obtain orthostatic vitals when able Patient seen and discussed with Neurology Attending Dr. Cheko Timmons, DO Neurology Resident PGY-2 [facility] I have seen and examined the patient with the resident and I agree with the findings and plan of care as documented by the resident. Date of Service: 08/30/2024 History 89-year-old WM with cognitive impairment and frequent falls and history of tonic-clonic events during PT OT with falling. In the recent event he had urinary incontinence and was sleepy afterwards [possible seizure]. CT head 08/29 showed chronic small subdural hematoma stable in size compared with the previous imaging. Examination. Awake and alert oriented x 1. Answers simple questions. Speech is normal. Keeps eyes closed. Neck is rigid. Upper and lower extremities are also rigid and tremulous but have normal strength. DTRs are brisk. Walking was not attempted today. Diagnosis. Major neurocognitive disorder [dementia]. 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 Possibleseizure disorder. Plan. Recommend routine EEG and MRI brain seizure protocol with and without contrast. Recommend IV Keppra load 2 g followed by 500 mg p.o. twice daily for maintenance dosing Will follow and reevaluate for neurologic signs of PD. Please see resident notes for details Rod Still MD Attending Physician, Neurology CH EXAMINER * Radha Lawson, PT - 08/30/2024 9:20 AM CST [facility] Department of Physical Medicine & Rehabilitation Progress Note Patient: Frandy Alvares [facility] Record Number: [id number] Date of : 1935 Age: [age] year old 08/30/24 0900 Missed Visit Missed Visit RN Cancel (PT FINALLY CALM AND SLEEPING, LET PT REST. CONT TO FOLLOW) CH EXAMINER * Veronica Kim MD - 08/30/2024 5:16 AM CST Trauma Tertiary Survey 08/30/2024 Frandy Alvares 89 year old male [id number] Admitted for these injuries found on primary/secondary survey: - chronic bilateral subdural collections/hematomas, up to 9 mm along bifrontal lobes - right 11th posterior rib fracture - Right flank subcutaneous soft tissue stranding - possible lung contusion Since admission Frandy Alvares had an episode of witnessed possible seizure like activity while working with OT. Otherwise, is doing well. He is alert and has fluctuating orientation. Consults Service and Faculty: Neurology Internal Medicine Geriatric medicine Operations and Faculty: None Current Facility-Administered Medications Medication Dose Route Frequency Provider Last Rate Last Admin 0.9% NaCl injection 3 mL 3 mL Intracatheter q8h Deangelo Chan MD 3 mL at 08/30/24 0505 And 0.9% NaCl injection 1-10 mL 1-10 mL Intracatheter PRN Deangelo Chan MD acetaminophen (Tylenol) tablet 1,000 mg 1,000 mg Oral TID Georgia Dexter APRN- HEAT SEALING MACHINE OPERATOR 1,000 mg at 08/30/24 1022 albuterol-ipratropium (Duo-Neb) nebulizer solution 3 mL 3 mL Inhalation q6h PRN John Aguirre DO enoxaparin (Lovenox) injection 30 mg 30 mg Subcutaneous q12h Georgia Dexter APRN-HEAT SEALING MACHINE OPERATOR 30 mg at 08/30/24 1020 escitalopram (Lexapro) tablet 10 mg 10 mg Oral QDAY Georgia Dexter APRN-CNP 10 mg at 08/30/24 1022 famotidine (Pepcid) tablet 20 mg 20 mg Oral QDAY Georgia Dexter APRN-RICHARD 20 mg at 08/30/24 1022 finasteride (Proscar) tablet 5 mg 5 mg Oral QDAY Luis Samaniego MD 5 mg at 08/30/24 1024 levETIRAcetam (Keppra) tablet 500 mg 500 mg Oral BID Veronica Kim MD 500 mg at 08/30/24 1021 lidocaine (Lidoderm) 5 % patch 1 patch 1 patch Transdermal QDAY John Agurire DO 1 patch at 08/30/24 1020 melatonin tablet 3 mg 3 mg Oral AT BEDTIME PRN - MR X 1 Joey Ybarra MD 3 mg at 08/29/24 2151 metoprolol succinate XL 24hr (Toprol XL) tablet 12.5 mg 12.5 mg Oral QDAY Luis Samaniego MD 12.5 mg at 08/30/24 1025 polyethylene glycol 3350 (Miralax) packet 17 g 17 g Oral QDAY Georgia Dexter APRN-CNP 17 g at 08/30/24 1020 potassium - sodium phosphates (Phos-Nak) powder 1 packet 1 packet Oral TID Evin Brooks MD QUEtiapine (SEROquel) tablet 12.5 mg 12.5 mg Oral AT BEDTIME Georgia Dexter APRN-CNP 12.5 mg at 08/29/242019 QUEtiapine (SEROquel) tablet 25 mg 25 mg Oral QDAY Georgia Dexter APRN-HEAT SEALING MACHINE OPERATOR 25 mg at 08/30/24 1022 senna (Senokot) tablet 8.6 mg 8.6 mg Oral QDAY Georgia Dexter APRN-CNP 8.6 mg at 08/30/24 1022 Physical Exam Blood pressure 153/73, pulse 56, temperature 97.3 ??F (36.3 ??C), temperature source Oral, resp. rate 18, height 1.727 m (5' 8 ), weight 72.6 kg (160 lb), SpO2 99%. Temp (24hrs) Max:97.8 ??F (36.6 ??C) Intake/Output Intake/Output Summary (Last 24 hours) at 08/30/2024 1128 Last data filed at 08/30/2024 0800 Gross per 24 hour Intake 720 ml Output -- Net 720 ml BM: No GENERAL Head normocephalic and atraumatic Eyes no evidence of trauma Ears No evidence of trauma Nose no evidence of trauma Oropharynx No evidence of trauma Maxillofacial no anita tenderness and no soft tissue injury Neck no deformity and no tenderness Skin Ecchymosis to right flank, ecchymosis to left lateral ankle Cervical Spine: ROM Intact Bony Tenderness No Neurologic Motor and Sensory sensory grossly intact and motor grossly intact Lungs/Thorax clear to auscultation bilaterally Heart normal rate and normal rhythm Abdomen/Pelvis non-tender, non-distended, and no guarding Perineum no deformity RU extremity no deformity and no tenderness RU digits no deformity and no tenderness LING extremity no deformity and no tenderness LING digits no deformity and no tenderness RL extremity no deformity and no tenderness RL digits no deformity and no tenderness LL extremity no deformity and no tenderness LL digits no deformity and no tenderness Back (Thoracic and Lumbar Spines) no anita tenderness and no step-off Pulses Brachial: 2+ Radial: 2+ Dorsalis Pedis:2+ Posterior Tibial: 2+ Capillary Refill: less than 2 seconds Skin Color: normal, no cyanosis, jaundice, pallor or bruising Skin Temp: Warm Neurologic Alert, GCS: 14- fluctuating levels of confusion Pupils: equal, round, reactive to light and accommodation Labs Results for orders placed or performed during the hospital encounter of 08/27/24 (from the past 48 hour(s)) BLOOD TYPE VERIFICATION Result Value Ref Range ABO Rh B POS URINE DRUG SCREEN IMMUNOASSAY Result Value Ref Range Amphetamines Screen Urine Negative Negative: < 1000 ng/mL Barbiturates Screen Urine Negative Negative: < 200 ng/mL Benzodiazepine Screen Urine Negative Negative: < 200 ng/mL Opiates Urine Negative Negative: < 300 ng/mL Cocaine Metabolites Urine Negative Negative: < 300 ng/mL Phencyclidine Screen Urine Negative Negative: < 25 ng/ml Cannabinoids Screen Urine Positive (Abnormal) Negative: <50 ng/mL Methadone Screen Urine Negative Negative: < 300 ng/mL Fentanyl Screen Urine Negative Negative: <1.5 ng/mL URINALYSIS REFLEX TO MICROSCOPIC NO CULTURE Specimen: Urine Clean Catch Result Value Ref Range Color UA Yellow Straw, Yellow Clarity UA Clear Clear Specific [place] UA 1.035 (H) 1.005 - 1.030 pH UA 5.0 5.0 - 8.0 pH Protein UA Negative Negative Glucose UA Negative Negative Ketone UA 1+ (Abnormal) Negative Bilirubin UA Negative Negative Blood UA Negative Negative Nitrite UA Negative Negative Leukocyte Esterase Negative Negative Urobilinogen UA 2.0 (Abnormal) Negative mg/dL RBC UA 0-2 None Seen, 0-2, 3-5 /HPF WBC UA 0-5 None Seen, 0-5 /HPF Squamous Epithelial Cells UA None Seen None Seen, 0-2, 3-5 /HPF Mucus UA 1+ /LPF CBC W/O DIFFERENTIAL Result Value Ref Range WBC 9.7 4.0 - 10.7 x10E9/L RBC Count 3.60 (L) 4.30 - 5.80 x10E12/L Hemoglobin 11.1 (L) 13.3 - 17.5 g/dL Hematocrit 33.4 (L) 38.7 - 51.1 % MCV 92.8 80.0 - 98.0 fL MCH 30.8 26.7 - 33.6 pg MCHC 33.2 31.7 - 36.3 g/dL RDW-CV 12.9 11.3 - 14.8 % Platelet Count 191 150 - 420 x10E9/L MPV 10.3 7.8 - 11.4 fL BASIC METABOLIC PANEL (CALCIUM TOTAL) Result Value Ref Range BUN 22 7 - 26 mg/dL Creatinine 0.91 0.71 - 1.16 mg/dL Sodium 137 136 - 145 mmol/L Potassium 3.7 3.5 - 4.5 mmol/L Chloride 104 98 - 107 mmol/L CO2 24 22 - 29 mmol/L Glucose 83 70 - 99 mg/dL Calcium 8.6 8.4 - 10.2 mg/dL Anion Gap 9 6 - 16 BUN/Creatinine Ratio 24 (H) 7 - 23 Osmolality Calculated 286 275 - 295 mOsm/kg eGFR by CKD-EPI 81 (L) >=90 mL/min/1.73 m2 MAGNESIUM BLOOD Result Value Ref Range Magnesium 1.8 1.6 - 2.6 mg/dL PHOSPHORUS BLOOD Result Value Ref Range Phosphorus 2.5 (L) 2.8 - 5.1 mg/dL Films: CT Head Wo Contrast Result Date: 08/29/2024 1.Redemonstration of chronic appearing small subdural hematoma along the bilateral anterior convexities measuring up to 9 mm unchanged in size and density compared to prior study. Mild mass effect onthe adjacent cerebral hemispheres however without significant midline shift. No new foci of hemorrha ge. XR PELVIS 1 OR 2VW Result Date: 08/28/2024 No acute fracture identified. XR CHEST 1VW PORTABLE Result Date: 08/28/2024 There is no focal consolidation, pleural effusion, or pneumothorax. The cardiac silhouette is normal. There is atherosclerotic calcification of the aorta. The visible bony thorax is intact. Suture anchors are in the right humeral head. XR Elbow Left 3Vw or More Result Date: 08/28/2024 No acute fracture or dislocation identified. XR Ankle Left 3Vw or More Result Date: 08/28/2024 The osseous structures are intact and well aligned without acute fracture or dislocation. The anklemortise is intact. Bone density and texture are normal. No soft tissue swelling is present. IMPRESSION: No acute fracture or dislocation identified. Report dictated by Dante Mcclain MD, (residential plumber). Sho Macedo MD have personally reviewed and interpreted this examination/study. > Interpreting Provider: Sho Minaya MD on 08/28/2024 9:[address] CHEST ABDOMEN PELVIS W CONT - Abdomen-pelvis trauma, blunt or penetrating Result Date: 08/28/2024 Mild limitations to the exam secondary to motion artifact. 1.MIldly displaced fracture of the [id number] posterior rib. 2.Subcutaneous soft tissue stranding the right flank favored represent a contusion in the setting of fall (series 7 image 74). 3.Mild groundglass opacities in the bilateral lower lobes favored to represent atelectasis. A component of this may represent a contusion of the right lower lobe given adjacent rib fracture. 4.No acute process in the abdomen or pelvis. CT HEAD WO CONTRAST - Head Trauma, CSF leak, mental status changes Result Date: 08/28/2024 Significant motion artifact limits evaluation for subtle [...] findings in the chest, abdomen, and pelvis. CT FACIAL BONES WO CONTRAST - Facial trauma, fx suspected, blunt Result Date: 08/28/2024 Significant motion artifact limits evaluation for subtle [...] findings in the chest, abdomen, and pelvis. CT CERVICAL SPINE WO CONTRAST - C-Spine Trauma, Spine fracture Result Date: 08/28/2024 1.Subacute to chronic appearing bilateral subdural collections/hematomas [...] findings in the chest, abdomen, and pelvis. CT THORACIC SPINE WO CONTRAST - T/L-spine trauma, spine fracture Result Date: 08/28/2024 Significant motion artifact limits evaluation for subtle [...] findings in the chest, abdomen, and pelvis. CT LUMBAR SPINE WO CONTRAST - T/L-spine trauma, Spine fracture Result Date: 08/28/2024 Significant motion artifact limits evaluation for subtle [...] findings in the chest, abdomen, and pelvis. Assessment: Frandy Alvares is a 89 year old male with h/o dementia presenting as a level 2 trauma after GLF. Unknown LOC. Difficult to obtain history due to patient's history of dementia. Has been stable since admission. 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 Patient has no tenderness here and wasable to ambulate with OT yesterday. - Left ankle x-ray negative. No further workup at this time. At this time, patient has no further need for trauma surgery evaluation. Neurology has evaluated patient and is completing a workup for possible seizure like activity. Has started Keppra. Needs continued workup for seizures and syncope, will transition to medicine primary for further evaluation. Medicine to take over care at 7 am today. Trauma surgery team to sign off at this time. Please repage if there are any further trauma needs. Veronica Kim MD 08/30/2024 11:28 AM CH EXAMINER * Dayne Blake RN - 08/30/2024 2:21 AM CST Problem: Safety related to restraint use Goal: Absence of injury while restrained Outcome: Progressing Problem: Pain/Discomfort Goal: Patient exhibits reduced pain/discomfort as evidenced by pain scores Outcome: Progressing Goal: Patient uses pharmacological and non-pharmacological pain management strategies. Outcome: Progressing Goal: Patient verbalizes acceptable level of pain relief and ability to engage in desired activity. Outcome: Progressing Problem: Fall Risk Goal: Fall risk and fall related injury risk are minimized (interventions related to the fall risk can be found in the flowsheet documentation) Outcome: Progressing Problem: Risk for Violence: Self-Directed or Other Directed Description: Diagnosis: Risk for self-directed Violence or Risk for Directed Violence Risk Factors: Biochemical/neurologic imbalances, impulsivity, manic excitement, psychotic symptomatology, rage reaction, restlessness Possibly Evidenced By: agitated behaviors, delusional thinking, hallucinations, loud/threatening/profane speech, poor impulse control, provocative behaviors, verbal threats against others, verbal threats against self Goal: Patient will verbalize control of feelings. Outcome: Progressing Goal: Patient will respond to interventions when potential or actual loss of control occurs. Outcome: Progressing Goal: Patient will refrain from provoking others to physical harm. Outcome: Progressing Goal: Patient will display nonviolent behaviors toward others in the hospital, with the aid of medications and nursing interventions. Outcome: Progressing Goal: Patient will seek help when experiencing aggressive impulses. Outcome: Progressing Goal: Patient will refrain from verbal threats and loud, profrane language toward others. Outcome: Progressing Goal: Patient will be safe and free from injury. Outcome: Progressing Problem: Balance Goal: LTG - Patient will maintain balance to allow for safe mobility Outcome: Progressing CH EXAMINER * Marily Sparks - 08/29/2024 9:09 PM CST Direct Support Professional Caregiver responded to page for Strong Team. Nurse and Security attempting to keep patient in bed. There is no family present. Nurse uncertain if family has been visiting. Direct Support Professional Caregiver suggested staff maywish to call family to talk with patient. Direct Support Professional Caregivermikayla Lopez call out operator Ascom [phone] (office [phone]) [phone] CH EXAMINER * Konrad Jeter DO - 08/29/2024 7:43 PM CST Internal Medicine Plan of Care I spoke with trauma team about the need for a syncope workup. Trauma team has completed their evaluation and is requesting medicine to take over as primary tomorrow. This patient will be added to AM distribution. Medicine will take over as primary at 7 am 08/[address]. Dr. Taveras is aware. Konrad Jeter DO Internal Medicine PGY-2 CH EXAMINER * James Carr RN - 08/29/2024 12:15 PM CST Problem: Safety related to restraint use Goal: Absence of injury while restrained Outcome: Progressing Problem: Pain/Discomfort Goal: Patient exhibits reduced pain/discomfort as evidenced by pain scores Outcome: Progressing Goal: Patient uses pharmacological and non-pharmacological pain management strategies. Outcome: Progressing Goal: Patient verbalizes acceptable level of pain relief and ability to engage in desired activity. Outcome: Progressing Problem: Fall Risk Goal: Fall risk and fall related injury risk are minimized (interventions related to the fall risk can be found in the flowsheet documentation) Outcome: Progressing Problem: Risk for Violence: Self-Directed or Other Directed Description: Diagnosis: Risk for self-directed Violence or Risk for Directed Violence Risk Factors: Biochemical/neurologic imbalances, impulsivity, manic excitement, psychotic symptomatology, rage reaction, restlessness Possibly Evidenced By: agitated behaviors, delusional thinking, hallucinations, loud/threatening/profane speech, poor impulse control, provocative behaviors, verbal threats against others, verbal threats against self Goal: Patient will verbalize control of feelings. Outcome: Progressing Goal: Patient will respond to interventions when potential or actual loss of control occurs. Outcome: Progressing Goal: Patient will refrain from provoking others to physical harm. Outcome: Progressing Goal: Patient will display nonviolent behaviors toward others in the hospital, with the aid of medications and nursing interventions. Outcome: Progressing Goal: Patient will seek help when experiencing aggressive impulses. Outcome: Progressing Goal: Patient will refrain from verbal threats and loud, profrane language toward others. Outcome: Progressing Goal: Patient will be safe and free from injury. Outcome: Progressing Problem: Balance Goal: LTG - Patient will maintain balance to allow for safe mobility Outcome: Progressing CH EXAMINER * James Carr RN - 08/29/2024 11:45 AM CST Patient had an episode of syncope when The Therapist tried to walk him up around the floor. Called my attention right away and we placed the patient sit on his bed and back to bed after. After a few minutes the patient was conscious but still confused on what happened. The therapist phoned the Attending Physicians concerned, came to see the patient with orders and procedures done. CH EXAMINER * Whit Lara OT - 08/29/2024 10:10 AM CST [facility] Physical Medicine and Rehabilitation Occupational Therapy Initial Evaluation Note Patient: Frandy Alvares [facility] Record Number: [id number] Date of : 1935 Age: [age] year old PPE worn by staff: gloves;mask - procedural Tech: no Recommendations: Discharge OT Discharge Recommendations: Patient would benefit from ongoing therapy with home health - pendingimprovement in medical status. Caregiver reports that pt has 24 hr care at home and family desires for pt to return home at discharge. In addition to the 1:1 evaluation of the patient, additional eval time was spent completing the chart review prior to the assessment, completing the multidisciplinary plan of care and education plan post evaluation and communicating results of the eval to other treatment team members. Nurse contacted regarding patient status and/or discharge plan. Physician Orders: Evaluation and Treat Activity Level: as tolerated PRECAUTIONS: Weight Bearing Status: (no restrictions) DIAGNOSIS: Patient Active Problem List: Inflamed seborrheic [...] one rib of right side, initial encounter Past Medical History: Diagnosis Date Actinic keratosis Dementia (HCC) Squamous cell carcinoma SUBJECTIVE: Subjective: Pt agreeable. PATIENT GOALS: none stated by pt Home Situation: Type of Residence: Private Residence Living arrangement: Alone Steps to Enter: 3 Home Structure: One Story Primary Bedroom: First Floor Primary Bathroom: First Floor Bathroom : Walk in Shower Equipment at Home: Bathroom Equipment;Walker;Wheelchair Prior Level of Functioning: Mobility: Ambulate-In Home Fallen Within 6 Mos: 3 Have Help at Home?: Yes, there is help at home now Who assists you at home?: Home Health;Friends/Family (son and family friend assist as well) How often is assistance provided?: 24 hrs/day Oxygen at Home: No Activity at Home: Active Vision: No impairment Hearing Exceptions: No impairment Who manages medications?: family, home care staff Pain Assessment: Pain Location #1 Pain Scale/Observation: Numeric (0-10) Pain Rating Score #1: 0 Sedation Level #1: 1-Awake and alert OBJECTIVE: At start of therapy session, patient found in bed General Appearance: resting in bed, alert LDA: Floor: IVs: Peripheral line Edema: No edema noted Vitals: (*Assess the 3 levels of oxygen saturations both for room air and 02 unless rest on room air is 88% or less). Rest BP: HR: Sp02 Sp02 Room Air L O2 Post Activity BP: 179/89 (115) HR: 76 Sp02 Sp02 95% Room Air Pt stable with NAD during beginning of session; sitting on EOB with standby assist and conversing appropriately. Pt requested to use bathroom and became impulsive, stood from EOB with min assist. Upon standing, pt began to have difficulty staying upright and was unable to advance his feet. Pt stopped responding verbally to therapist. Pt was lowered back onto EOB with total assist and assisted back to supine total assist x2 with nurse's assistance. Pt initially not responding verbally. Vitals were assigned and all WNL. After 1-2 minutes pt began to respond verbally but was drowsy. Trauma team was immediately notified, and pt was left with RN at bedside once deemed stable. Mental Status/Cognition: Level of Consciousness-Adult: Alert;Eyes Open Spontaneously Orientation Level: Oriented to Person Cognition: Attention/concentration-decreased;Processing-delayed;Judgement-decreased;Safety awareness-decreased;Memory impairment-short term UE ROM: RUE: AROM WFL LUE: AROM WFL Strength: RUE: WFL LUE: WFL UE Tone RUE: no abnormal tone noted LUE: no abnormal tone noted Coordination: intact serial opposition for bilateral hands UE Proprioception RUE: WFL LUE: WFL UE Sensation RUE: intact, no complaints of numbness or tingling LUE: intact, no complaints of numbness or tingling Perception: Inattention/Neglect: Appears intact Visual Motor Tracking: Able to track stimulus in all quads w/o difficulty Mobility: A gait belt and non-slip socks were used for all out of bed activity this date. Bed Mobility: Supine to Sit: Minimal Assistance with HOB in semi-fowlers position Sit to Supine: Total Assistance Transfers: Sit to Stand: Moderate Assistance Stand to Sit: Total Assistance Transfer Device: Gait belt;Walker-2 Wheeled Functional Ambulation: Deferred (see above) Balance: Sitting - Static: Good Sitting - Dynamic: Good - Standing - Static: Fair - Standing - Dynamic: Poor Activities of Daily Living Lower Body Dressing: Total Assistance Toileting: Total Assistance Splint Issued/Checked: none ACTIVITY TOLERANCE: Activity Tolerance: Requires rest breaks Modified [place]: Current Modified [place] Score: 4 AM-PAC 6 Clicks Daily Activity Raw Score:: 14 TREATMENT / EDUCATION / INTERVENTIONS: While performing OT, Patient and Caregiver was instructed in:functional mobility training, self-care training, energy conservation, safety awareness/fall precautions , use of adaptive equipment, discharge planning, use of call light Presented to patient who demonstrates Questionable understanding of instructions given. INFORMED CONSENT TO TREATMENT: Plan of care is discussed but patient with questionable understanding. ASSESSMENT: Functional performance limited due to: limited activities of daily living, decreased functional mobility, decreased functional balance, decreased cognition , decreased safety awareness, and decreasedendurance and activity tolerance. Patient continues to benefit from skilled Occupational Therapy toachieve the following functional goals. 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 Plan: Patient continues to benefit from skilled therapy services. If patient is discharged from the facility, this note serves as a discharge summary if further occupational therapy visits did not occur. Refer to filed flowsheet for further details. Following therapy session, patient left in bed, with call light within reach, with RN in room. CH EXAMINER * Corwin Patterson MD - 08/29/2024 7:55 AM CST TRAUMA SURGERY PROGRESS NOTE ADMIT: 08/27/2024 10:53 PM LOS: 1 day 08/29/2024 HISTORY: Frandy Alvares is a 89 year old male with h/o dementia presenting as a level 2 trauma transferred following a ground level fall. The fall occurred at an unknown time, in the early afternoon. There was unknown LOC. They arrived without a backboard, without a cervical collar. Per EMS report, he was given 5 of Ativan at OSH due to combativeness. He takes ASA 81 mg at home. 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 rate 18, height 1.727 m (5' 8 ), weight 72.6 kg (160 lb), SpO2 98%. Temp: [97.5 ??F (36.4 ??C)-98.2 ??F (36.8 ??C)] 97.6 ??F (36.4 ??C) Pulse: [62-83] 72 Resp: [16-18] 18 BP: (124-173)/(67-90) 173/74 DIET: DIET REGULAR Ins/Outs: 08/28 0701 - 08/29 0700 In: 200 [P.O.:200] Out: 650 [Urine:650] Physical Exam HEENT: AT/NC CV: Regular rate Pulm: Nonlabored respirations on room air. Clear to auscultation Abd: Soft, NT/ND MSK: Moving all extremities, no edema, no deformities, right lower back echy Neuro: Moving all extremities, no focal deficits. Alert. Responds to verbal commands. Speech incomprehensible Psych: Confused. RECENT LABS: Recent Labs Component Name 08/29/2444708/27/24230407/03/1553 WBC 9.7 10.7 9.4 HGB 11.1* 10.9* 15.2 HCT 33.4* 31.9* 46.2 MCV 92.8 91.9 96.4 PLT - - 158 Recent Labs Component Name 08/29/2444708/27/24230407/03/15 0853 NA 137 136 138 K - - 4.4 CL 104 107 102 CO2 24 23 25 BUN 22 25 20 CREATININE 0.91 1.07 1.05 GLU - - 102* CALCIUM 8.6 8.6 9.3 MAGNESIUM 1.8 - - PHOS 2.5* - - Recent Labs Component Name 07/03/15 0853 PROT 6.9 ALB 4.4 TBILI 0.5 AST 21 ALT 28 ALKPHOS 61 Recent Labs Component Name 08/27/24 2305 INR 1.1 PTT 29.3 Cultures: None RECENT IMAGING: CT HEAD WO CONTRAST - Head Trauma, CSF leak, mental status changes Result Date: 08/28/2024 Significant motion artifact limits evaluation for subtle [...] findings in the chest, abdomen, and pelvis. CT FACIAL BONES WO CONTRAST - Facial trauma, fx suspected, blunt Result Date: 08/28/2024 Significant motion artifact limits evaluation for subtle [...] findings in the chest, abdomen, and pelvis. CT CERVICAL SPINE WO CONTRAST - C-Spine Trauma, Spine fracture Result Date: 08/28/2024 Significant motion artifact limits evaluation for subtle [...] and pelvis. The report is dictated by MD Darling (residential plumber) I, Kalyani Cortez MD have personally reviewed and interpreted this examination/study. > Interpreting Provider: Kalyani Cortez MD on 08/28/2024 6:[address] THORACIC SPINE WO CONTRAST - T/L-spine trauma, spine fracture Result Date: 08/28/2024 Significant motion artifact limits evaluation for subtle [...] findings in the chest, abdomen, and pelvis. CT LUMBAR SPINE WO CONTRAST - T/L-spine trauma, Spine fracture Result Date: 08/28/2024 Significant motion artifact limits evaluation for subtle [...] findings in the chest, abdomen, and pelvis. CT Chest/Abd/Pelvis Mildly displaced fracture of the right 11th posterior rib. Subcutaneous soft tissue stranding the right flank favored represent a contusion in the setting of fall (series 7 image 74). Mild groundglass opacities in the bilateral lower lobes favored to represent atelectasis. A component of this may represent a contusion of the right lower lobe given adjacent rib fracture. No acute process in the abdomen or pelvis. Left Elbow X-ray naoi Left Ankle X-ray naoi Pelvis x-ray naoi CXR napp ASSESSMENT: Frandy Alvares is a 89 year old male admitted s/p glf yesterday. He was found to have questionable bilateral SDH/collections and right 11th rib fracture. 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 - right lung base granuloma Neuro: # chronic bilateral subdural collections/hematomas, up to 9 mm along bifrontal lobes - per NSGY, likely chronic hygromas related to cerebral volume loss - NSGY signed off, nothing to do #acute traumatic pain - Multimodal pain control: Scheduled tylenol and Lidoderm patches #history of dementia - resume lexapro and quetiapine EtOH counseling: n/a HEENT: - No acute issues Cardiac: #h/o HTN - On metoprolol at home, resume as BP is increasing - Holding ASA81 mg at this time - Continuous cardiac monitoring in ED - Telemetry upon admission: Not ordered - not indicated - MAP goal >65 Pulm: # right 11th posterior rib fracture - Pulmonary hygiene - Continuous pulse oximetry - Encourage hourly IS. - Bronchial hygiene with PEP device every 4 hours while awake GI: - No acute issues Diet: Regular diet IVF: none at this time - Daily BMP - Replace lytes PRN - Bowel regimen- miralax, senna /Renal: - No acute issues - h/o BPH, resume finasteride - Strict I/O q6h - UA: not indicated Heme: # low hgb on arrival 10.9 # hematoma to right posterior back - Daily CBC ID: - no acute issues - Antibiotics: None indicated - Tdap no Endo: - - no acute issues MSK: - no acute issues Cervical collar: Cleared Activity orders: As tolerated PT/OT: ordered Wound care: none Ppx: - GI: Pepcid - VTE: Lovenox L/T/D: Peripheral IVs Dispo: Trauma floor admission Luis Avalos MD 08/29/2024 8:02 AM I have seen and examined the patient with the resident and I agree with the findings and plan of care as documented by the resident. Date of Service: 08/29/2024 Corwin Patterson MD CH EXAMINER * John Aguirre DO - 08/29/2024 7:33 AM CST Cervical Spine CT from 08/27 reviewed and negative No cervical spine TTP Full cervical ROM without pain Cervical collar removed and cervical spine precautions discontinued. John Aguirre DO 08/29/2024 7:33 AM CH EXAMINER * Litzy Grady RN - 08/28/2024 2:13 PM CST Problem: Safety related to restraint use Goal: Absence of injury while restrained Outcome: Progressing Problem: Pain/Discomfort Goal: Patient exhibits reduced pain/discomfort as evidenced by pain scores Outcome: Progressing Problem: Fall Risk Goal: Fall risk and fall related injury risk are minimized (interventions related to the fall risk can be found in the flowsheet documentation) Outcome: Progressing Problem: Risk for Violence: Self-Directed or Other Directed Description: Diagnosis: Risk for self-directed Violence or Risk for Directed Violence Risk Factors: Biochemical/neurologic imbalances, impulsivity, manic excitement, psychotic symptomatology, rage reaction, restlessness Possibly Evidenced By: agitated behaviors, delusional thinking, hallucinations, loud/threatening/profane speech, poor impulse control, provocative behaviors, verbal threats against others, verbal threats against self Goal: Patient will verbalize control of feelings. Outcome: Progressing Goal: Patient will seek help when experiencing aggressive impulses. Outcome: Progressing Goal: Patient will be safe and free from injury. Outcome: Progressing CH EXAMINER * Sarahy Sauceda OT - 08/28/2024 11:17 AM CST [facility] Department of Physical Medicine & Rehabilitation Progress Note Patient: Frandy Alvares [facility] Record Number: [id number] Date of : 1935 Age: [age] year old 08/28/24 0925 Missed Visit Missed Visit Other (Comment) Unable to arouse patient at this time. RN in room at time of attempt. Will continue to follow for OT evaluation pending appropriateness. CH EXAMINER * Ollie Espinosa, PT - 08/28/2024 9:20 AM CST [facility] Department of Physical Medicine & Rehabilitation Patient: Frandy Alvares Med Record Number: [id number] Date of : 1935 Age: [age] year old 08/28/24 0920 Missed Visit Missed Visit Other (Comment) Unable to arouse patient at this time. RN in room at time of attempt. Will continue to follow for PT evaluation pending appropriateness. CH EXAMINER * Veronica Kim MD - 08/28/2024 7:17 AM CST TRAUMA SURGERY PROGRESS NOTE ADMIT: 08/27/2024 10:53 PM LOS: 0 days 08/28/2024 HISTORY: Frandy Alvares is a 89 year old male with h/o dementia presenting as a level 2 trauma transferred following a ground level fall. The fall occurred at an unknown time, in the early afternoon. There was unknown LOC. They arrived without a backboard, without a cervical collar. Per EMS report, he was given 5 of Ativan at OSH due to combativeness. He takes ASA 81 mg at home. 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 Vitals stable. Afebrile. Patient continues to be confused, attempting to get up to go to the bathroom on his own. EXAM: Blood pressure 167/94, pulse 82, temperature 98 ??F (36.7 ??C), temperature source Temporal, resp. rate 27, height 1.727 m (5' 8 ), weight 72.6 kg (160 lb), SpO2 99%. Temp: [98 ??F (36.7 ??C)] 98 ??F (36.7 ??C) Pulse: [79-96] 82 Resp: [11-27] 27 BP: (120-168)/(75-107) 167/94 DIET: DIET NPO Except: NO EXCEPTIONS Ins/Outs: No intake/output data recorded. Physical Exam Gen: standing up at side of bed attempting to urinate while arrived HEENT: AT/NC CV: Regular rate Pulm: Nonlabored respirations on room air Abd: Soft, NT/ND MSK: Moving all extremities, no edema, no deformities, ecchymosis to right posterior back Neuro: Moving all extremities, no focal deficits. Alert. Responds to verbal commands. Speech incomprehensible. Psych: Confused. RECENT LABS: Recent Labs Component Name 08/27/24230407/03/15 0853 WBC 10.7 9.4 HGB 10.9* 15.2 HCT 31.9* 46.2 MCV 91.9 96.4 PLT - 158 Recent Labs Component Name 08/27/24230407/03/15 0853 NA 136 138 K - 4.4 CL 107 102 CO2 23 25 BUN 25 20 CREATININE 1.07 1.05 GLU - 102* CALCIUM 8.6 9.3 Recent Labs Component Name 07/03/15 0853 PROT 6.9 ALB 4.4 TBILI 0.5 AST 21 ALT 28 ALKPHOS 61 Recent Labs Component Name 08/27/242304 INR 1.1 PTT 29.3 Cultures: None RECENT IMAGING: CT HEAD WO CONTRAST - Head Trauma, CSF leak, mental status changes Result Date: 08/28/2024 Significant motion artifact limits evaluation for subtle [...] findings in the chest, abdomen, and pelvis. CT FACIAL BONES WO CONTRAST - Facial trauma, fx suspected, blunt Result Date: 08/28/2024 Significant motion artifact limits evaluation for subtle [...] findings in the chest, abdomen, and pelvis. CT CERVICAL SPINE WO CONTRAST - C-Spine Trauma, Spine fracture Result Date: 08/28/2024 Significant motion artifact limits evaluation for subtle [...] and pelvis. The report is dictated by MD Darling (residential plumber) I, Kalyani Cortez MD have personally reviewed and interpreted this examination/study. > Interpreting Provider: Kalyani Cortez MD on 08/28/2024 6:[address] THORACIC SPINE WO CONTRAST - T/L-spine trauma, spine fracture Result Date: 08/28/2024 Significant motion artifact limits evaluation for subtle [...] findings in the chest, abdomen, and pelvis. CT LUMBAR SPINE WO CONTRAST - T/L-spine trauma, Spine fracture Result Date: 08/28/2024 Significant motion artifact limits evaluation for subtle [...] findings in the chest, abdomen, and pelvis. CT Chest/Abd/Pelvis Mildly displaced fracture of the right 11th posterior rib. Subcutaneous soft tissue stranding the right flank favored represent a contusion in the setting of fall (series 7 image 74). Mild groundglass opacities in the bilateral lower lobes favored to represent atelectasis. A component of this may represent a contusion of the right lower lobe given adjacent rib fracture. No acute process in the abdomen or pelvis. Left Elbow X-ray naoi Left Ankle X-ray naoi Pelvis x-ray naoi CXR napp ASSESSMENT: Frandy Alvares is a 89 year old male admitted s/p glf yesterday. He was found to have questionable bilateral SDH/collections and right 11th rib fracture. 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 - NSGY signed off, nothing to do #acute traumatic pain - Multimodal pain control: Scheduled tylenol and Lidoderm patches #history of dementia - On multiple medications at home, pending recommendations from geriatrics to resume/hold Urine drug screen: Pending, not yet collected EtOH counseling: n/a HEENT: - No acute issues Cardiac: # h/o HTN - On metoprolol at home - Will hold while BP is stable - Holding ASA81 mg at this time - Continuous cardiac monitoring in ED - Telemetry upon admission: Not ordered - not indicated - MAP goal >65 Pulm: # right 11th posterior rib fracture - Pulmonary hygiene - Continuous pulse oximetry - Encourage hourly IS. - Bronchial hygiene with PEP device every 4 hours while awake - CXR: Repeat as needed to assess rib fracture - Smoking cessation counseling: not applicable - Incidental pulmonary nodules: not applicable GI: - No acute issues Diet: Regular diet IVF: none at this time - Daily BMP - Replace lytes PRN - Bowel regimen- miralax, senna /Renal: - No acute issues - h/o BPH - Urotaxrel at home, held while inpatient - Strict I/O q6h - UA: not indicated Heme: # low hgb on arrival 10.9 # hematoma to right posterior back - Daily CBC ID: - no acute issues - Antibiotics: None indicated - Tdap no Endo: - - no acute issues MSK: - no acute issues Cervical collar: clearance not yet attempted Activity orders: As tolerated PT/OT: ordered Wound care: none Ppx: - GI: Pepcid - VTE: held initially due to bleeding L/T/D: Peripheral IVs Home medications to be restarted per geriatric recommendations. Dispo: Trauma floor admission Patient seen and discussed with Chief Resident Dr. Aguirre and attending Dr. Rocha. Veronica Kim MD General Surgery Resident, PGY-1 08/28/24 7:18 AM CH EXAMINER Associated attestation - Lincoln Rocha MD - 08/28/2024 10:21 AM BRANCH EXAMINER Patient seen and examined with Resident and/ or nurse practitioner. Please see their note for further details. I confirm history, exam, assessment and plan except where it differs from mine. In addition I note: Interval history: pt admitted yesterday after GLF with multiple injuries Family history is non-contributory. Exam: Confused Chest is relatively clear Abdomen is soft Assessment/Plan: Traumatic ICH -SDH -chronic hydroma appearing -nsg has seen -no intervention R 11th rib fx with pulmonary contusion -on room air -pain control -pulmonary toilet -encourage IS as able to participate Geriatrics consult Mobilize with PT and OT Please see resident's note for further details. 08/28/2024 10:18 AM Lincoln Rocha MD documented in this encounter H&P Notes * Joey Ybarra MD - 08/27/2024 11:11 PM CST TRAUMA ADMISSION HISTORY & PHYSICAL Date of Admission:08/27/2024 Date of Consult:08/27/2024 11:12 PM Time Seen: arrival Activation level: 2 Trauma Team: Attending: Dr. Rocha Senior: Dustin Edward: Tate PRE-HOSPITAL COURSE: Pre Hospital (mechanism, treatments, clinical course): Description of mechanism: ground level fall, unwitnessed Trauma occurred at ---- unknown, early afternoon . Clinical course of patient: Patient arrived by Ambulance from outside hospital: [facility] Intubated in the field: No Blood given prior to arrival: None IV fluids given: Yes - normal saline tourniquet placed in the field: No Medications administered prior to arrival: None Lines present prior to arrival: Peripheral IVs HOSPITAL COURSE (chief complaint): This is a 89 year old male presenting as a level 2 trauma following a ground level fall. The fall occurred at an unknown time, in the early afternoon. There was unknown LOC. They arrived without a backboard, without a cervical collar. Complains of Pain: unable to obtain due to: patient unable to participate due to altered mental status Products & Meds: [facility] Crystalloid Boluses: No Blood Products: None Other: None TXA: No Tdap: no Antibiotics: None indicated Procedures: PAST MEDICAL HISTORY If applicable, unable to obtain due to: patient unable to participate due to altered mental status Allergies: Epinephrine Medications: alfuzosin CR 24hr (UROXATRAL) 10 MG tablet Take 1 (one) tablet by mouth once daily Apoaequorin (PREVAGEN PO) Take 1 tablet by mouth once daily aspirin EC (ECOTRIN) 81 MG tablet Take 1 (one) tablet by mouth once daily FIBER PO Take 1 capsule by mouth 2 times daily finasteride (PROSCAR) 5 MG tablet Take 1 (one) tablet by mouth once daily GLUCOSAMINE CHONDROITIN COMPLX PO Take 1 tablet by mouth once daily hydrOXYzine HCl (Atarax) 10 MG tablet ibuprofen (MOTRIN) 600 MG tablet Take 1 (one) tablet by mouth as needed ingenol (PICATO) 0.015 % gel Apply to affected area once daily For actinic keratosis on the Forehead and your hair line Use for 3 days. (Patient not taking: Reported on 05/05/2020) lovastatin (MEVACOR) 20 MG tablet Take 1 (one) tablet by mouth once daily metoprolol succinate XL 24hr (TOPROL XL) 25 MG tablet Take 0.5 (one-half) tablet by mouth once daily Multiple Vitamins-Minerals (HAIR SKIN AND NAILS FORMULA) TABS Take 2 tablets by mouth once daily Vitamin D, Cholecalciferol, 1000 UNITS CAPS Take 1 (one) capsule by mouth once daily Immunizations: up to date Past Medical History: Past Medical History: Diagnosis Date Actinic keratosis Squamous cell carcinoma Hospitalized: no recent hospitalizations Surgical History: No past surgical history on file. Social: Social History Socioeconomic History Marital status: Spouse name: Not on file Number of children: Not on file Years of education: Not on file Highest education level: Not on file Occupational History Not on file Tobacco Use Smoking status: Former Types: Pipe Quit date: 2014 Years since quittin.9 Smokeless tobacco: Former Substance and Sexual Activity Alcohol use: Yes Comment: rarely Drug use: No Sexual activity: Never Other Topics Concern Not on file Social History Narrative Not on file Social Determinants of Health Financial Resource Strain: Not on file Food Insecurity: Not on file Transportation Needs: Not on file Stress: Not on file Housing Stability: Not on file - Alcohol: unknown drinking history - Drug use: Unknown due to patient condition Last Meal: Unknown due to patient's altered mental status Last menstrual Period: not applicable Family History Problem Relation Name Age of Onset Asthma Neg Hx Eczema Neg Hx Cancer - Other Neg Hx Cancer - Breast Neg Hx Cancer - Skin, Non Melanoma Neg Hx Cancer - Skin, Melanoma Neg Hx CVA Neg Hx Hemophilia Neg Hx Psoriasis Neg Hx REVIEW OF SYSTEMS: If applicable, unable to obtain due to: patient unable to participate due to altered mental status PRIMARY SURVEY Airway: patent Breathing: clear to auscultation bilaterally Circulation: intact Cap Refill: <2 seconds Skin: normal Skin Color: appropriate Pulses Carotid: 2+ Radial: 2+ Femoral: 2+ Dorsalis Pedis: 2+ Posterior Tibial: 2+ Disabililty GCS8 Verbal2 (Incomprehensible), Motor5 (Localizes pain), Eyes1 Points (Absent) Given 5 mg of Ativan at outside hospital prior to arrival Pupils: normal, equal and reactive to light SECONDARY SURVEY Blood pressure 120/76, pulse 87, temperature 98 ??F (36.7 ??C), resp. rate 16, height 1.727 m (5' 8 ), weight 72.6 kg (160 lb), SpO2 96%. Temp Av ??F (36.7 ??C) Min: 98 ??F (36.7 ??C) Max: 98 ??F (36.7 ??C), Pulse Av Min: 87 Max: 87, Resp Av Min: 16 Max: 18, BP Min: 120/76 Max: 168/107 No intake or output data in the 24 hours ending 08/27/24 2312 Physical Exam Head: 1 cm x 1 cm abrasion to left temporal region Eyes: PERRLA 4mm, no conjunctival hemorrhage Ears: Tympanic membranes clear, no hemotympanum Nose: No evidence of trauma, no septal hematoma Oropharynx: pink, atraumatic, no malocclusion Maxillofacial: Face stable, not TTP Neck: no evidence of trauma, no midline tenderness, no step-off, and no gross deformities Cervical Spine: Not TTP, no step offs, no crepitus Lungs: clear to auscultation with equal bilateral breath sounds Chest: no evidence of trauma CV: RRR, no murmurs, rubs, or gallops Abdomen/Pelvis: SNTND, normoactive bowel sounds. Pelvis stable. : Normal male external genitalia Rectal Exam: normal tone and no gross blood RU extremity: no evidence of trauma and capillary refill (<2 seconds), pulses 2+ and equal LING extremity: capillary refill (<2 seconds), pulses 2+ and equal and abrasion to left elbow RL extremity: no evidence of trauma and capillary refill (<2 seconds), pulses 2+ and equal LL extremity: no evidence of trauma and capillary refill (<2 seconds), pulses 2+ and equal Back (Thoracic and Lumbar Spines): Not TTP, no step offs, no crepitus Skin: 1 cm x 1 cm abrasion to left elbow. 1 cm x 1 cm abrasion to left temporal region SECONDARY DATA ED Trauma FAST Ultrasound Deferred for CT scans Data Review: Results for orders placed or performed during the hospital encounter of 08/27/24 (from the past 24 hour(s)) ALCOHOL ETHYL BLOOD Result Value Ref Range Ethanol (mg/dL) <10 <10 mg/dL Ethanol Calculated (g/dL) <0.010 <=0.010 g/dL BASIC METABOLIC PANEL (CALCIUM TOTAL) Result Value Ref Range BUN 25 7 - 26 mg/dL Creatinine 1.07 0.71 - 1.16 mg/dL Sodium 136 136 - 145 mmol/L Potassium 4.5 3.5 - 4.5 mmol/L Chloride 107 98 - 107 mmol/L CO2 23 22 - 29 mmol/L Glucose 97 70 - 99 mg/dL Calcium 8.6 8.4 - 10.2 mg/dL Anion Gap 6 6 - 16 BUN/Creatinine Ratio 23 7 - 23 Osmolality Calculated 286 275 - 295 mOsm/kg eGFR by CKD-EPI 67 (L) >=90 mL/min/1.73 m2 CBC W AUTO DIFFERENTIAL Result Value Ref Range WBC 10.7 4.0 - 10.7 x10E9/L RBC Count 3.47 (L) 4.30 - 5.80 x10E12/L Hemoglobin 10.9 (L) 13.3 - 17.5 g/dL Hematocrit 31.9 (L) 38.7 - 51.1 % MCV 91.9 80.0 - 98.0 fL MCH 31.4 26.7 - 33.6 pg MCHC 34.2 31.7 - 36.3 g/dL RDW-CV 13.1 11.3 - 14.8 % Platelet Count 203 150 - 420 x10E9/L MPV 9.8 7.8 - 11.4 fL Neutrophil % 75.1 (H) 41.0 - 74.0 % Lymphocyte % 15.2 (L) 17.0 - 47.0 % Monocyte % 8.0 3.0 - 11.0 % Eosinophil % 0.7 0.0 - 7.0 % Basophil % 0.5 0.0 - 1.6 % Immature Granulocytes % 0.5 0.0 - 1.0 % Neutrophil Absolute 8.03 (H) 1.60 - 7.50 x10E9/L Lymphocyte Absolute 1.62 1.00 - 4.40 x10E9/L Monocyte Absolute 0.86 0.15 - 1.00 x10E9/L Eosinophil Absolute 0.08 0.00 - 0.60 x10E9/L Basophil Absolute 0.05 0.00 - 0.13 x10E9/L CK BLOOD Result Value Ref Range CK Total 417 (H) 30 - 200 U/L PT-INR [facility] Result Value Ref Range PT 14.1 12.1 - 14.8 Seconds INR 1.1 See Comment PTT [facility] Result Value Ref Range APTT 29.3 23.0 - 38.4 Seconds TEG 6 GLOBAL HEMOSTASIS W/ LYSIS Result Value Ref Range Citrated Kaolin R (Reaction Time) 4.5 (L) 4.6 - 9.1 min Citrated Kaolin LY30 (Lysis) 0.2 0.0 - 2.6 % Citrated Functional Fibrinogen MA (Max Amplitude) 20.3 15.0 - 32.0 mm Citrated RapidTEG MA (Max Amplitude) 61.3 52.0 - 70.0 mm TEG 6S PLATELET MAPPING Result Value Ref Range TEGPLM (Max Amplitude) Koalin 64.7 53.0 - 68.0 mm TEGPLM (Max Amplitude) ACTF 15.1 2.0 - 19.0 mm TEGPLM (Max Amplitude) ADP 49.4 45.0 - 69.0 mm TEGPLM (Max Amplitude) AA 18.3 (L) 51.0 - 71.0 mm TEGPLM %Inhibition ADP 30.8 (H) 0.0 - 17.0 % TEGPLM %Inhibition AA 93.5 (H) 0.0 - 11.0 % TEGPLM %Aggregation ADP 69.2 (L) 83.0 - 100.0 % TEGPLM % Aggregation AA 6.5 (L) 89.0 - 100.0 % TYPE + SCREEN PANEL Result Value Ref Range Antibody Screen NEG ABO Rh B POS EtOH: None Imaging: CXR: NAPP Pelvis XR: NAOI CT Head: Significant motion artifact limits evaluation for subtle abnormalities. Subacute to chronic appearing bilateral holohemispheric subdural hematomas measuring up to 9 mm in maximal thickness along the bifrontal lobes. No significant effacement of the underlying cerebral sulci. No midline shift. No additional intra- or extra-axial hemorrhage CT C Spine: Significant motion artifact limits evaluation for subtle fractures. otherwise, no acute fracture identified CT T Spine: NAOI CT L Spine: Significant motion artifact limits evaluation for subtle fractures. otherwise, no acute fracture CT Chest/Abd/Pelvis: MIldly displaced fracture of the right 11th posterior rib. Subcutaneous soft tissue stranding the right flank favored represent a contusion in the setting of fall (series 7 image 74). Mild groundglass opacities in the bilateral lower lobes favored to represent atelectasis. A component of this may represent a contusion of the right lower lobe given adjacent rib fracture. No acute process in the abdomen or pelvis. Additional X-rays or Imaging: Left ankle XR:naoi Left elbow XR: naoi Consultants: Service: Neurosurgery Name of Resident: Nando Solo MD Time of Consult: 00:12 None ASSESSMENT: Trauma (POA: Unknown) Impaired mobility and ADLs (POA: Unknown) Altered mental status (POA: Unknown) Fall (POA: Unknown) This is a 89 year old male presenting as a level 2 trauma following ground level fall, unwitnessed with injuries as listed below, trauma assessment ongoing. 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 Unable to obtain initial IS due to altered mental status - Bronchial hygiene with PEP device every 4 hours while awake - CXR: Daily due to acute injury: Possible Rib fracture - Smoking cessation counseling: not discussed at this time - Incidental pulmonary nodules: not discussed at this time GI: No acute issues Diet: NPO except for medications IVF: 75 mL/h - Within normal limits, no plan to repeat BMP - Replace lytes PRN /Renal: No acute issues - Strict I/O q6h - UA: not indicated Heme: - no acute issues - No clinical concern for active hemorrhage, no plan to repeat CBC ID: No acute issues - Antibiotics: None indicated - Tdap no Endo: - - no acute issues MSK: - no acute issues Cervical collar: clearance not yet attempted Activity orders: Bedrest PT/OT: not ordered, pending activity recommendations by consulting service Wound care: None Ppx: - GI: Pepcid - VTE: No - possible intracranial pathology L/T/D: Peripheral IVs Dispo: pending review of imaging and consulting service recommendations, will update when able Emergent Operative Procedure Requiring 15 minutes to OR NO Time OR contacted not applicable Time in OR not applicable Joey Ybarra MD [facility] August 27, 2024 11:12 PM CH EXAMINER Associated attestation - Lincoln Rocha MD - 09/02/2024 7:59 AM BRANCH EXAMINER Patient seen and examined with Resident and/ or nurse practitioner upon pt arrival to the trauma bay. Please see their note for further details. I confirm history, exam, assessment and plan except where it differs from mine. In addition I note: Interval history: per report pt with ground level fall Family history is non-contributory. Exam: Awake Confused Chest is mildly coarse Abdomen is soft Assessment/Plan: Traumatic ICH -SDH -nsg aware -final recs pending R sided rib fx with pulmonary contusion -pain control -pulmonary toilet -encourage IS as able to participate Please see resident's note for further details. Lincoln Rocha MD documented in this encounter Procedure Notes * Camilo Cota MD - 08/30/2024 10:03 AM CST EEG REPORT Patient Name: Frandy Alvares EEG#: [id number] Start Time: 15:57 PM 08/29/2024 Stop Time: 16:23 PM 08/29/2024 Clinical History: Frandy Alvares is a 89 year old male with altered mental status. This EEG is ordered for seizures. Current medications Current Facility-Administered Medications Medication 0.9% NaCl injection 3 mL And 0.9% NaCl injection 1-10 mL acetaminophen (Tylenol) tablet 1,000 mg albuterol-ipratropium (Duo-Neb) nebulizer solution 3 mL enoxaparin (Lovenox) injection 30 mg escitalopram (Lexapro) tablet 10 mg famotidine (Pepcid) tablet 20 mg finasteride (Proscar) tablet 5 mg levETIRAcetam (Keppra) tablet 500 mg lidocaine (Lidoderm) 5 % patch 1 patch melatonin tablet 3 mg metoprolol succinate XL 24hr (Toprol XL) tablet 12.5 mg polyethylene glycol 3350 (Miralax) packet 17 g QUEtiapine (SEROquel) tablet 12.5 mg QUEtiapine (SEROquel) tablet 25 mg senna (Senokot) tablet 8.6 mg Description This is a routine 21-channel EEG tracing consisting of 20 channels of EEG obtained from electrodes placed on the scalp according to the international 10- 20 system, T1 and T2 electrodes, and one channel of EKG monitoring. Background The awake background consisted of a moderately to poorly organized theta activity of normal amplitude, with admixed delta activity. Stage 1 sleep was identified in the forms of background attenuation, roving eye movements, and vertex waves. Stage 2 sleep was identified in the forms of K-complexes and spindles. Epileptiform discharge was identified over bilateral frontal regions. EKG was observed throughout the recording. IMPRESSION This is an abnormal EEG due to 1) bifrontal epileptiform discharge and 2) mild to moderate generalized slowing. CLINICAL CORRELATION: The study was suggestive of increased tendency toward seizures, and mild to moderate encephalopathy. Camilo Cota MD CH EXAMINER * Yong Ybarra - 08/29/2024 5:00 PM CST Patient tolerated the test well. CH EXAMINER documented in this encounter Consult Notes * Cameron Vogel MD - 08/31/2024 10:38 AM CSTAssociated Order(s): IP CONSULT TO PSYCHIATRY [facility] Consult Psychiatry History and Physical Name: Frandy Alvares Age: [age] year old Date of : 1935 Location: [facility] Reason for Consultation Delirium, agitation, medication recommendations, specifically, whether quetiapine was still appropriate Chief Complaint: I feel wonderful History of Present Illness: Frandy Alvares is a 89 year old man with a PMH of dementia of unclear type, multiple falls, HTN, CAD, OA, HLD, chronic SDH and a PPH of MDD. They arrived by ambulance. BAL- UDS+ cannabinoids They were admitted to [facility] for AMS likely 2/2 chronic SDH and fall with head trauma. Psychiatry was consulted for delirium, agitation, and medication recommendations.. My interview with this patient was extremely limited given his lethargy and altered mental status. He did not know why he was here, what year it was, or what kind of building he was in. He then stated that he believed he was either in assisted, or his home. He would not believe me when I told him that he was in the hospital. He denied any pain, and told me he felt ???wonderful. When I asked him why he was here he said ???murder.?? As I walked away from his bed, I accidentally knocked over a trash can, to which he said ???I am not paying for that. ?? Allergies Allergen Reactions Epinephrine Dizziness Passed out for 4 hours in childhood Medications Prior to Admission Medication Sig Dispense Refill alfuzosin CR 24hr (UROXATRAL) 10 MG tablet Take 1 (one) tablet by mouth once daily Apoaequorin (PREVAGEN PO) Take 1 tablet by mouth once daily aspirin EC (ECOTRIN) 81 MG tablet Take 1 (one) tablet by mouth once daily FIBER PO Take 1 capsule by mouth 2 times daily finasteride (PROSCAR) 5 MG tablet Take 1 (one) tablet by mouth once daily GLUCOSAMINE CHONDROITIN COMPLX PO Take 1 tablet by mouth once daily hydrOXYzine HCl (Atarax) 10 MG tablet ibuprofen (MOTRIN) 600 MG tablet Take 1 (one) tablet by mouth as needed ingenol (PICATO) 0.015 % gel Apply to affected area once daily For actinic keratosis on the Forehead and your hair line Use for 3 days. (Patient not taking: Reported on 05/05/2020) 3 Each 0 lovastatin (MEVACOR) 20 MG tablet Take 1 (one) tablet by mouth once daily 12 metoprolol succinate XL 24hr (TOPROL XL) 25 MG tablet Take 0.5 (one-half) tablet by mouth once daily Multiple Vitamins-Minerals (HAIR SKIN AND NAILS FORMULA) TABS Take 2 tablets by mouth once daily Vitamin D, Cholecalciferol, 1000 UNITS CAPS Take 1 (one) capsule by mouth once daily Past Psychiatry History None documented, except for a diagnosis of MDD for which he receives escitalopram. Social History Deferred Past Medical History Past Medical History: Diagnosis Date Actinic keratosis Dementia (HCC) Squamous cell carcinoma Family Medical History: Family History Problem Relation Name Age of Onset High Blood Pressure Mother CAD (Coronary Artery Disease) Mother Asthma Neg Hx Eczema Neg Hx Cancer - Other Neg Hx Cancer - Breast Neg Hx Cancer - Skin, Non Melanoma Neg Hx Cancer - Skin, Melanoma Neg Hx CVA Neg Hx Hemophilia Neg Hx Psoriasis Neg Hx Review of Systems: Deferred secondary to inability to obtain interview. Physical Exam History Patient Vitals for the past 24 hrs: BP Temp Temp src Pulse Resp SpO2 08/31/24 2255 144/50 98.7 ??F (37.1 ??C) Axillary 64 18 98 % 08/31/24 2005 147/79 98.8 ??F (37.1 ??C) Oral 83 18 97 % 08/31/24 1741 98/51 97.5 ??F (36.4 ??C) Oral 75 17 97 % 08/31/24 1523 134/67 97.9 ??F (36.6 ??C) Oral 69 16 99 % 08/31/24 1207 165/75 98.2 ??F (36.8 ??C) Oral 75 12 100 % 08/31/24 0848 123/98 97.5 ??F (36.4 ??C) Oral 93 18 97 % 08/31/24 0412 160/66 97.9 ??F (36.6 ??C) Oral 69 18 96 % Mental Status Exam: Appearance: Elderly white man thin, lying supine on his bed, in restraints with eyes closed. Eye Contact: poor Attitude toward examiner: Withdrawn Speech: Normal rate and prosody, Minimal wording Language: Normal, no delays Psychomotor: no agitation and no retardation when I see him although as I am leaving he is beginning to struggle slightly against his restraints Mood: Wonderful Affect: restricted Thought Process: paucity of thought Thought Content: denies suicidal ideation, denies homicidal ideation and delusions elicited during interview Perception: denies hallucinations, was not reacting to internal stimuli Fund of Knowledge: Unable to assess Insight: poor Judgment: poor Cognitive Functions: Cognition: oriented to name only Concentration: does not attend to the interview Memory: global memory impairment noted Gait: unable to assess, patient laying in bed and unable to assess, patient sitting MSK: Normal muscle tone Labs: EKG: No results found for any visits on 08/27/24. TFT: No results for input(s): TSH , T3 , T3FREE , T4 , T4FREE in the last 21077 hours. A1c: No results for input(s): HGBA1C , A1C , [id number] , EAG in the last 98687 hours. Lipid: Recent Labs Component Name 07/03/15 0853 CHOL 142 TRIG 122 HDL 35* LDLCALC 83 Other: BAL: Recent Labs Component Name 08/27/24 2305 ETOH <10 ETHANOLCALC <0.010 Serum Acetaminophen: No results for input(s): ACETAMINO in the last 86360 hours. Serum Salicylate:No results for input(s): SALICYLATE in the last 64891 hours. Urine Drug Screen: Recent Labs Component Name 08/28/242051 LABAMPH Negative LABBARB Negative LABBENZ Negative THCUR Positive* COCAINESCRN Negative METHADONE Negative LABOPIA Negative FENTURSCN Negative PCPUR Negative Assessment: Frandy Alvares is a 89 year old man with a PMH of dementia of unclear type, multiple falls, HTN, CAD, OA, HLD, chronic SDH and a PPH of MDD. They arrived by ambulance. BAL- UDS+ cannabinoids They were admitted to [facility] for AMS likely 2/2 chronic SDH and . Psychiatry was consulted for delirium, agitation, and medication recommendations. As noted by primary team this patient is likely delirious secondary to his falls, head trauma, and chronic subdural hemorrhage. This patient has, however, been noted by his primary team to be slowly recovering from his delirium. Given this patient's advanced age, and multiple medical comorbidities,it is possible that even after correction of his underlying issues, he may continue to suffer an altered mental status for some time. Although quetiapine can sometimes be a better option than other neuroleptic drugs in elderly delirious patients, it is still nonetheless not a perfect solution giventhat it does have more anticholinergic affects than more potent atypical neuroleptics. In addition to the standard recommendations of avoiding anticholinergic drugs, benzodiazepines, and neurolepticsespecially high potency and 1st generation neuroleptics, we recommend the discontinuation of quetiapine in favor of low-dose olanzapine, though only as strictly necessary when other measures do not work for the patient's agitation. This patient may, as a 1st line option, be offered trazodone 25 mg TID PRN. This medication can be crushed and placed in applesauce with the patient. In addition, we note that this patient has been placed on levetiracetam by neurology for his possible seizures. Levetiracetam can contribute more to agitation than some other antiepileptic drugs. If the patient's delirium does not continue to improve, we encourage the medicine team to consider exploring other options with neurology, although with a careful consideration of the risks involved. I have seen and reviewed the available and relevant vital signs, labs, imaging, procedures, EKGs, allergies, and medications. DSM-5 Diagnosis: Delirium Plan: Psychiatric problems: Delirium management: Delirium is an acute confusional state with acute changes in attention, cognition, and awareness. It often has a sudden onset and a waxing and waning course. The patient will remain at high risk for delirium due to recent trauma, dementia, and chronic SHD Non-invasive measures to manage these symptoms have been found most effective including - early mobilization - frequent reorientation, by providing clock and calendar with minimal staff changes - maintenance of appropriate sleep/wake cycle: consider scheduling melatonin at 5-6 pm - avoidance of physician pediatrician lab draws - minimize physical restraints, tubes and drains - address sensory deficits (vision and hearing) - ensure adequate nutrition (Ensure supplements TID between meals if needed) - frequent visits from family members is helpful. - consider 1:1 sitter with a private room to reduce precipitants of agitation, if indicated - avoid anticholinergic medications (like benadryl), opioids or sedating medications. - benzodiazepines can worsen confusion and should be avoided unless in the setting of withdrawal - ensure regular bowel movements and prevention of constipation with use of a bowel regimen. Ensureno urine retention. -Agitation recommendations -Please obtain an EKG if the patient has not got one recently -Trazodone 25mg TID PRN, may be crushed in apple sauce or similar. There is room to increase the dose if the patient responds well. -Olanzapine 2.5mg PRN Q6H for intractable agitation that is not responsive to redirection -Discontinue quetiapine -Consider alternate AED in consultation with neurology if patient's delirium does not improve, although this must be balanced against the patient's potential seizure risk. Substance use: Talk to family about not giving this patient cannabinoids given + UDS. Sometimes, this is done to help calm the patient, but there is evidence that it can contribute to delirium and AMS. Medical problems: Defer to primary This patient was discussed with the attending physician, Dr. Mccoy, who agreed with the above impression and plan. Cameron Vogel MD 09/01/24 1:14 AM CH EXAMINER * Melia Elena, BHARTI/JAMES - 08/30/2024 8:22 AM CSTAssociated Order(s): IP CONSULT TO NUTRITIONAL SERV BRIEF SYNOPSIS: Nutrition Risk Identified and meets criteria for Severe Protein Calorie malnutrition. Malnutrition Etiology Malnutrition in the context of: chronic disease (08/30/24 0800) Malnutrition Severity: Severe Protein Calorie (08/30/24 0800) Dietary Intake: Weight Change: Weight change Unintended weight change: Severe weight loss Weight Loss: > 7.5% x 3 months (8% x 3 months) Fat Loss: Loss of Subcutaneous Fat Orbital: Severe Buccal: Severe Muscle Loss: Muscle Loss Temples (Temporalis Muscle): Severe Clavicles (Pectoralis & Deltoids): Severe Body mass index is 24.33 kg/m??. GI Concerns: None Nutrition Plan: Continue Regular Diet (Assist w/meals) Start Ensure Plus High Protein BID w/meals (1.5 kcal) (350 kcal, 20 grams pro, 40 grams CHO) Start Magic Cup once a day w/meals (290 kcal, 9g protein, 38g CHO) Recommendation to Physician: + Code for Malnutrition + Replete Phosphorus (2.5) Discharge Needs: Nutritional Supplement at Discharge: Yes CLINICAL NUTRITION ASSESSMENT: RD consulted for MST of 2 for unsure weight loss. Pt is currently AxOx1 and has dementia. Per documentation, patient has been having adequate PO intake, consuming 50-80% of his meals. 1 PO intake documented at 25%. Last BM yesterday. Labs reviewed- eGFR low (81), Phos low (2.5). Pt has experienced a 14 lbs (8%) weight loss in 3 months, significant per ASPEN guidelines. RD did an NFPE on the patient, see resultsabove. Pt meets ASPEN criteria for severe protein calorie malnutrition. RD to order oral nutrition supplements to aid in nutrition status. Pt will discharge to a SNF. RD to follow. Med/Surg History and Clinical Diagnoses: 89 year old male with h/o dementia presenting as a level 2trauma transferred following a ground level fall. Height: 172.7 cm (5' 8 ) BMI: Body mass index is 24.33 kg/m??. BMI Range: Normal IBW/lb (Calculated) Male: 154 Recent Weights/Methods 07/02/2015 1033 11/05/2015 1106 12/31/2015 0911 03/17/2016 1049 05/12/2016 1021 06/03/2016 0939 08/27/2024 2251 08/28/2024 1656 Weight: 99.8 kg (220 lb) 99.3 kg (219 lb) 99.3 kg (219 lb) 95.3 kg (210 lb) 101.6 kg (224 lb) 95.3 kg (210 lb) 72.6 kg (160 lb) 72.6 kg (160 lb) Weight Method : -- -- -- -- -- -- Estimated Bed scale Unintentional weight change: Pt has experienced a 14 lbs (8%) weight loss in 3 months- significant per ASPEN guidelines. Monitoring. Unintended weight change: Severe weight loss PO INTAKE Current diet order: Regular Nutrition recommendation: alter/change nutrition order Food Allergies: No known food allergies Last % Meal Taken: 50 % (08/29/241724) 48 hr PO INTAKE % Meal Taken Av.8 % Min: 25 % Max: 85 % Current supplement order: Ensure High Protein TID Supplement(s) Consumed- Last 48 hours None Pain affecting intake: No Chewing/Swallowing: Altered Dentition (Missing teeth) GI Concerns: None Stools: Stool Appearance : Soft (08/29/242152) Stool Amount: Small (08/29/242152) Skin/Wound: WDL Estimated Needs: KCAL: 2,190-2,555kcal (30-35 kcal/kg ABW) Protein (g): 88-110g (1.2-1.5 g/kg ABW) Fluid (ml): 1 ml/kcal Needs based on: Kcal/kg- (Comment) (73kg ABW) Recommended Access Route: PO Labs: Recent Labs Component Name 08/29/248 08/27/24230407/03/15 0853 NA 137 136 138 POTASSIUM 3.7 4.5 - CO2 24 23 25 BUN 22 25 20 CREATININE 0.91 1.07 1.05 GLUCOSE 83 97 - CALCIUM 8.6 8.6 9.3 ALT - - 28 ALKPHOS - - 61 AST - - 21 EGFR 81* 67* - Recent Labs Component Name 08/29/24447 PHOS 2.5* Recent Labs Component Name 08/29/24447 MAGNESIUM 1.8 Recent Labs Component Name 08/29/248 08/27/24230407/03/15 0853 HGB 11.1* 10.9* 15.2 HCT 33.4* 31.9* 46.2 No results for input(s): HGBA1C in the last 71198 hours.No data found. MEDICATIONS FOR CURRENT ENCOUNTER: SCHEDULED MEDICATIONS: 0.9% NaCl injection 3 mL, Intracatheter, q8h acetaminophen (Tylenol) tablet 1,000 mg, Oral, TID enoxaparin (Lovenox) injection 30 mg, Subcutaneous, q12h escitalopram (Lexapro) tablet 10 mg, Oral, QDAY famotidine (Pepcid) tablet 20 mg, Oral, QDAY finasteride (Proscar) tablet 5 mg, Oral, QDAY levETIRAcetam (Keppra) tablet 500 mg, Oral, BID lidocaine (Lidoderm) 5 % patch 1 patch, Transdermal, QDAY metoprolol succinate XL 24hr (Toprol XL) tablet 12.5 mg, Oral, QDAY polyethylene glycol 3350 (Miralax) packet 17 g, Oral, QDAY QUEtiapine (SEROquel) tablet 12.5 mg, Oral, AT BEDTIME QUEtiapine (SEROquel) tablet 25 mg, Oral, QDAY senna (Senokot) tablet 8.6 mg, Oral, QDAY [COMPLETED] levETIRAcetam (Keppra) tablet 2,000 mg, Oral, Once [COMPLETED] QUEtiapine (SEROquel) tablet 12.5 mg, Oral, Once CONTINUOUS MEDICATIONS: PRN MEDICATIONS: 0.9% NaCl injection 1-10 mL, Intracatheter, PRN albuterol-ipratropium (Duo-Neb) nebulizer solution 3 mL, Inhalation, q6h PRN melatonin tablet 3 mg, Oral, AT BEDTIME PRN - MR X 1 Nutrition Diagnostic Statement: Malnutrition related to:: age related sarcopenia;inadequate protein-energy intake as evidenced by:: unintentional weight loss;loss of subcutaneous fat;loss of muscle mass Nutrition Intervention: Meals and snacks:;Medical Food Supplements:;Feeding assistance: Education needed: Supplements Education Provided: Not appropriate (08/30/24 0800) Monitoring: PO intake, labs, weight, BM Monitor per nutrition guidelines. Risk Level: At Risk for Malnutrition Evaluation: Nutrition Goal: Total intake will meet estimated nutrient needs Nutrition Goal Timeframe: Ongoing Nutrition Goal Progress: New goal established Melia Elena RD/JAMES Ascom:[id number] CH EXAMINER * Rod Still MD - 08/29/2024 2:00 PM CST Neurology Consult Note Patient: Frandy Alvares Age: [age] year old Admission Date and Time: 08/27/2024 Subjective Reason for consult: Concern for seizure clinically. History of Presenting Illness: Frandy Alvares is a 89 year old male with history of recurrent falls, rib fracture, admitted in 08/27 for ground-level fall. Neurology team are consulted for a witnessed in hospital event, patient had a fall while working with PT/OT with urinary incontinence, he was sleepy after. At home, family reported that patient might have had multiple tonic-clonic events that actually caused his fall. When I saw the patient he was sleepy. No previous history of formal diagnosis of seizure. CT head 08/29 showed chronic small subdural hematoma stable in size compared with the previous imaging. Past Medical History No history on file. Past Medical History: Diagnosis Date Actinic keratosis Dementia (HCC) Squamous cell carcinoma Past Surgical History: Procedure Laterality Date Back Surgery Cataract Removal Bilateral Rotator Cuff Repair Objective BP 129/78 (BP Location: Left arm, Patient Position: Lying) Pulse 63 Temp 97.5 ??F (36.4 ??C) (Axillary) Resp 16 Ht 1.727 m (5' 8 ) Wt 72.6 kg (160 lb) SpO2 100% Temp (30hrs) Max:98.2 ??F (36.8 ??C) Body mass index is 24.33 kg/m??. Exam - General Con - NAD, afebrile Heent - NCAT, MMM, anicteric Neck - no masses, trachea midline CV - RRR, no chest wall tenderness Pulm - normal respiratory effort Abd - soft, NTND Exam - Neurologic Patient is not oriented. AOX2 at baseline, did not respond today. Patient was sleepy but wake up to voice does not engage in a conversation, moves all limbs spontaneously. Labs: Results for orders placed or performed during the hospital encounter of 08/27/24 (from the past 24 hour(s)) BLOOD TYPE VERIFICATION Result Value Ref Range ABO Rh B POS URINE DRUG SCREEN IMMUNOASSAY Result Value Ref Range Amphetamines Screen Urine Negative Negative: < 1000 ng/mL Barbiturates Screen Urine Negative Negative: < 200 ng/mL Benzodiazepine Screen Urine Negative Negative: < 200 ng/mL Opiates Urine Negative Negative: < 300 ng/mL Cocaine Metabolites Urine Negative Negative: < 300 ng/mL Phencyclidine Screen Urine Negative Negative: < 25 ng/ml Cannabinoids Screen Urine Positive (Abnormal) Negative: <50 ng/mL Methadone Screen Urine Negative Negative: < 300 ng/mL Fentanyl Screen Urine Negative Negative: <1.5 ng/mL URINALYSIS REFLEX TO MICROSCOPIC NO CULTURE Specimen: Urine Clean Catch Result Value Ref Range Color UA Yellow Straw, Yellow Clarity UA Clear Clear Specific [place] UA 1.035 (H) 1.005 - 1.030 pH UA 5.0 5.0 - 8.0 pH Protein UA Negative Negative Glucose UA Negative Negative Ketone UA 1+ (Abnormal) Negative Bilirubin UA Negative Negative Blood UA Negative Negative Nitrite UA Negative Negative Leukocyte Esterase Negative Negative Urobilinogen UA 2.0 (Abnormal) Negative mg/dL RBC UA 0-2 None Seen, 0-2, 3-5 /HPF WBC UA 0-5 None Seen, 0-5 /HPF Squamous Epithelial Cells UA None Seen None Seen, 0-2, 3-5 /HPF Mucus UA 1+ /LPF CBC W/O DIFFERENTIAL Result Value Ref Range WBC 9.7 4.0 - 10.7 x10E9/L RBC Count 3.60 (L) 4.30 - 5.80 x10E12/L Hemoglobin 11.1 (L) 13.3 - 17.5 g/dL Hematocrit 33.4 (L) 38.7 - 51.1 % MCV 92.8 80.0 - 98.0 fL MCH 30.8 26.7 - 33.6 pg MCHC 33.2 31.7 - 36.3 g/dL RDW-CV 12.9 11.3 - 14.8 % Platelet Count 191 150 - 420 x10E9/L MPV 10.3 7.8 - 11.4 fL BASIC METABOLIC PANEL (CALCIUM TOTAL) Result Value Ref Range BUN 22 7 - 26 mg/dL Creatinine 0.91 0.71 - 1.16 mg/dL Sodium 137 136 - 145 mmol/L Potassium 3.7 3.5 - 4.5 mmol/L Chloride 104 98 - 107 mmol/L CO2 24 22 - 29 mmol/L Glucose 83 70 - 99 mg/dL Calcium 8.6 8.4 - 10.2 mg/dL Anion Gap 9 6 - 16 BUN/Creatinine Ratio 24 (H) 7 - 23 Osmolality Calculated 286 275 - 295 mOsm/kg eGFR by CKD-EPI 81 (L) >=90 mL/min/1.73 m2 MAGNESIUM BLOOD Result Value Ref Range Magnesium 1.8 1.6 - 2.6 mg/dL PHOSPHORUS BLOOD Result Value Ref Range Phosphorus 2.5 (L) 2.8 - 5.1 mg/dL Neuroimaging: CT head. Assessment: Mr. Alvares is an 89-year-old gentleman with history of recurrent falls and concern for tonic-clonic events, had 1 event in the hospital there was no tonic- clonic movement but there was urinary incontinence, considering his CT head finding of chronic subdural hematoma, this event could be seizures. Require further investigation Recommendation -Recommend routine EEG. -Recommend MRI brain with and without contrast epilepsy protocol . -Recommend loading with 2 g Keppra and then tomorrow Start maintenance Keppra 500 twice daily. -Please check the orthostatic blood pressure. To be Discussed with General Neurology Attending Physician, Chand. Kiesha Sanabria M.D. Neurology Resident PGY2 [facility] I have seen and examined the patient with the resident and I agree with the findings and plan of care as documented by the resident. Date of Service: 08/30/2024 History 89-year-old WM with cognitive impairment and frequent falls and history of tonic-clonic events during PT OT with falling. In the recent event he had urinary incontinence and was sleepy afterwards [possible seizure]. CT head 08/29 showed chronic small subdural hematoma stable in size compared with the previous imaging. Examination. Awake and alert oriented x 1. Answers simple questions. Speech is normal. Keeps eyes closed. Neck is rigid. Upper and lower extremities are also rigid and tremulous but have normal strength. DTRs are brisk. Walking was not attempted today. Diagnosis. Major neurocognitive disorder [dementia]. 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 Possibleseizure disorder. Plan. Recommend routine EEG and MRI brain seizure protocol with and without contrast. Recommend IV Keppra load 2 g followed by 500 mg p.o. twice daily for maintenance dosing Will follow and reevaluate for neurologic signs of PD. Please see resident notes for details Rod Still MD Attending Physician, Neurology CH EXAMINER * Marie El MD - 08/29/2024 12:45 PM CST [facility] Geriatric followup Patient Consult Frandy Alvares [id number] Age: [age] year old. Date of : 1935 Admission Date: 08/27/2024 Reason For Consult: Geriatric evaluation in trauma Requesting Physician: Dr. Rocha HPI: Frandy Alvares is 89 year old male seen for unwitnessed fall at his home in his bathroom with finding of chronic subdural and 11th rib fxt. He slept well overnight per caregiver (who was not present last night). He has been awake and cooperative this AM. He is eating. He is not expressing any pain or other sx. He had a witness tonic/clinic event this AM and caregiver indicates this has happened several times in the past witnessed which has resulted in some of the fall event of recently. CONFUSION ASSESSMENT METHOD 1) Acute onset or fluctuating course: Yes 2) Inattention: Yes 3) Disorganized thinking: Yes 4) Altered Level of Consciousness: no Level of Consciousness: somnolent Delirium is suggested Vitals: 08/29/24 0914 08/29/24 0915 08/29/24 1023 08/29/24 1124 BP: 173/74 179/89 129/78 Pulse: 72 91 63 Resp: 18 16 Temp: 97.5 ??F (36.4 ??C) SpO2: 100% 96% 100% Weight: Height: Physical Exam: Exam: Alert, OXself, not anxious, is confused Resp: CTA, equal BS, no rales/wheeze CV: RRR no murmur or gallop Abd: + BS, soft, NT/ND Ext: no edema bilat LE No UE tremor CBC: Recent Labs Component Name 08/29/2444708/27/24230407/03/15 0853 WBC 9.7 10.7 9.4 HGB 11.1* 10.9* 15.2 PLT - - 158 BMP: Recent Labs Component Name 08/29/2444708/27/24230407/03/15 0853 NA 137 136 138 K - - 4.4 CL 104 107 102 CO2 24 23 25 BUN 22 25 20 CREATININE 0.91 1.07 1.05 GLU - - 102* Recent Labs Component Name 08/29/2444708/27/24230407/03/15 0853 CALCIUM 8.6 8.6 9.3 PHOS 2.5* - - LFT: Recent Labs Component Name 07/03/15 0853 PROT 6.9 ALB 4.4 ALKPHOS 61 AST 21 ALT 28 UA negative Assessment and Plan Delirium evaluation: Patient currently does have resolving delirium. Potential risks for delirium include possible seizure, falls with head trauma, SDH, demenita, risk of constipation, risk of urinary retention, sleep deprivation. Risk reduction includes: - Avoid sedative hypnotics/anticholinergics - Allow family at bedside as much as possible. Familiar faces help manage delirium - Avoid restrictions/restraints in general - Allow OOB to chair mobilization as soon as possible. PT/OT assessment needed. - Make sure his bowels are moving. Daily Miralax - Monitor for retention. Bladder scan post void. Straight cath for residuals >350ml - Optimize nutritional status. Ensure supplements TID between meals. - - Address unrecognized pain. Routine tylenol 650mg po q 6 hrs routine 2. Dementia with agitation and wandering at baseline: is at cognitive baseline today per caregiver.Would continue to use AM uses quetiapine and HS for restlessness and sleep promotion. Check ECG to exclude long QT 3. Recurrent falls: given seizure like activity today and hx of this per caregiver description, this could be cause of falling. He has several risk factors for seizure (dementia, head trauma). Recommend neurology consult. 4. Functional impairment: OT evaluation suggests home with HHC and PT assessment pending. 24 hour care has been arranged in the home per caregiver. 4. MDD with anxiety: continue lexapro 10 mg daily. 5. BPH hx: resume proscar and alfuzosin (or tamsulosin) Marie El MD Geriatric Medicine Attending Pager: 08/29/24 noon 08/29/2024 11:45am CH EXAMINER * Cynthia Car MSW - 08/29/2024 12:16 PM CSTAssociated Order(s): IP CONSULT TO COMPUTER CLERK SW acknowledging consult for SNF placement. Patient is not medically ready for discharge on today. SW will continue to follow up for any further discharge needs. CEE Cruz [phone] CH EXAMINER * Tunde Almodovar, AUTO BODY MECHANIC APPRENTICE-HEAT SEALING MACHINE OPERATOR - 08/28/2024 8:40 AM CSTAssociated Order(s): IP CONSULT TO GERIATRIC MEDICINE GERIATRIC MEDICINE NEW CONSULT NOTE 08/28/2024 8:41 AM Reason for Consult: Fall Consulting Physician and Team: Trauma HPI Frandy Alvares is a 89 year old year old man admitted to trauma service 08/27 from an OSH after an unwitnessed ground level fall in his bathroom. Collateral information obtained from son Frandy at bedside this morning. 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 Neurosurgery not planning any intervention and have signed off. Also found to have a right sided 11th rib fracture. Geriatrics consulted given age and fall. PMH includes dementia, recurrent falls, depression/anxiety. Examined this morning resting comfortably in bed. Unable to obtain any hx from patient due to somnolence. Comprehensive Geriatric Assessment: Social: Lives at home alone in [place]. He has a daily home health aid there most of the day. with 2 sons. Does not smoke or drink. Falls: How many in the last 6 months? 3 Assistive device? Sometimes uses a walker Weight loss in the last 6 months:some Orthostatic: Yes Incontinence: Denies Vision/Hearing Problems: Glasses? yes Hearing aids? no Medication Review: Donepezil Quetiapine BID Lexapro 10mg Hydroxyzine BID RCS: Advancing dementia. At times does not recognize son. (0-5 suggests dementia; 6-7 mild cognitive impairment; 8-10 normal) GDS: Yes depression/anxiety FRAIL: 3 (3+ indicates frailty) SARC-F: 6 (4+ indicates sarcopenia) SNAQ: Eats 2-3 small meals daily (A score <14 indicates significant risk of at least 5% weight loss within 6 months) ADL: Needs help from rn patient care. IADL: Stopped driving over a year ago. Son manages the bill. CONFUSION ASSESSMENT METHOD 1) Acute onset or fluctuating course: yes 2) Inattention: yes 3) Disorganized thinking: yes 4) Altered Level of Consciousness: yes Level of Consciousness: somnolent Delirium is suggested if criteria #1 & #2 are positive PLUS criteria #3 OR #4 Is deliirum suggested: No Past Medical History: Past Medical History: Diagnosis Date Actinic keratosis Dementia (HCC) Squamous cell carcinoma Past Surgical History: Past Surgical History: Procedure Laterality Date Back Surgery Cataract Removal Bilateral Rotator Cuff Repair Current Medications: 0.9% NaCl 3 mL Intracatheter q8h acetaminophen 650 mg Oral q6h famotidine 20 mg Intravenous QDAY lidocaine 1 patch Transdermal QDAY polyethylene glycol 3350 17 g Oral QDAY senna 8.6 mg Oral QDAY Allergies: Allergies Allergen Reactions Epinephrine Dizziness Passed out for 4 hours in childhood Social History: Social History Socioeconomic History Marital status: Spouse name: Not on file Number of children: Not on file Years of education: Not on file Highest education level: Not on file Occupational History Not on file Tobacco Use Smoking status: Former Types: Pipe Quit date: 2014 Years since quittin.9 Smokeless tobacco: Former Substance and Sexual Activity Alcohol use: Yes Comment: rarely Drug use: No Sexual activity: Never Other Topics Concern Not on file Social History Narrative Not on file Social Determinants of Health Financial Resource Strain: Not on file Food Insecurity: Not on file Transportation Needs: Not on file Stress: Not on file Housing Stability: Not on file Family History: Family History Problem Relation Name Age of Onset Asthma Neg Hx Eczema Neg Hx Cancer - Other Neg Hx Cancer - Breast Neg Hx Cancer - Skin, Non Melanoma Neg Hx Cancer - Skin, Melanoma Neg Hx CVA Neg Hx Hemophilia Neg Hx Psoriasis Neg Hx Review of Systems: Unable to obtain give somnolence/delirium OBJECTIVE Vitals: Patient Vitals for the past 6 hrs: Temp Pulse Resp BP 08/28/24 0603 -- 71 28 (!) 130/116 08/28/24 0400 98 ??F (36.7 ??C) 82 27 167/94 08/28/24 0330 -- 79 11 158/97 08/28/24 0300 -- 96 22 141/75 No intake or output data in the 24 hours ending 08/28/24 0841 Weight: Wt Readings from Last 2 Encounters: 08/27/24 72.6 kg (160 lb) 06/03/16 95.3 kg (210 lb) Physical Exam: General: NAD. Sleeping elderly man HEENT: EOMI. PERRL Neck: Cervical collar Pulm: CTA-B. No WRR Cardio: RRR, S1S2 normal. Abdomen: Soft, NT, ND. BS + Extremity: No edema Neuro: Somnolent. Not following commands. Skin: Warm and dry Labs: CBC: Recent Labs Component Name 08/27/24230407/03/15 0853 WBC 10.7 9.4 HGB 10.9* 15.2 PLT - 158 BMP: Recent Labs Component Name 08/27/24230407/03/15 0853 NA 136 138 K - 4.4 CL 107 102 CO2 23 25 BUN 25 20 CREATININE 1.07 1.05 GLU - 102* Recent Labs Component Name 08/27/24230407/03/15 0853 CALCIUM 8.6 9.3 LFT: Recent Labs Component Name 07/03/15 0853 PROT 6.9 ALB 4.4 ALKPHOS 61 AST 21 ALT 28 Coagulation: Recent Labs Component Name 08/27/242304 PT 14.1 INR 1.1 Imaging: CT CHEST ABDOMEN PELVIS W CONT - Abdomen-pelvis trauma, blunt or penetrating Result Date: 08/28/2024 Impression: Mild limitations to the exam secondary [...] or pelvis. >Dictated by Dorian Cuevas MD (residential plumber). ITyree have personally reviewed and interpreted this examination/study. > Interpreting Provider: Tyree Tyler on 08/28/2024 8:[address] HEAD WO CONTRAST - Head Trauma, CSF leak, mental status changes Result Date: 08/28/2024 IMPRESSION: Significant motion artifact limits evaluation for [...] report is dictated by Dante Mcclain MD (residential plumber) Kalyani Macedo MD have personally reviewed and interpreted this examination/study. > Interpreting Provider: Kalyani Cortez MD on 08/28/2024 6:[address] FACIAL BONES WO CONTRAST - Facial trauma, fx suspected, blunt Result Date: 08/28/2024 IMPRESSION: Significant motion artifact limits evaluation for [...] report is dictated by Dante Mcclain MD (residential plumber) Kalyani Macedo MD have personally reviewed and interpreted this examination/study. > Interpreting Provider: Kalyani Cortez MD on 08/28/2024 6:[address] CERVICAL SPINE WO CONTRAST - C-Spine Trauma, Spine fracture Result Date: 08/28/2024 IMPRESSION: Significant motion artifact limits evaluation for [...] report is dictated by Dante Mcclain MD (residential plumber) Kalyani Macedo MD have personally reviewed and interpreted this examination/study. > Interpreting Provider: Kalyani Coretz MD on 08/28/2024 6:[address] THORACIC SPINE WO CONTRAST - T/L-spine trauma, spine fracture Result Date: 08/28/2024 IMPRESSION: Significant motion artifact limits evaluation for [...] report is dictated by Dante Mcclain MD (residential plumber) Kalyani Macedo MD have personally reviewed and interpreted this examination/study. > Interpreting Provider: Kalyani Cortez MD on 08/28/2024 6:[address] LUMBAR SPINE WO CONTRAST - T/L-spine trauma, Spine fracture Result Date: 08/28/2024 IMPRESSION: Significant motion artifact limits evaluation for [...] report is dictated by Dante Mcclain MD (residential plumber) I, Kalyani Cortez MD have personally reviewed and interpreted this examination/study. > Interpreting Provider: Kalyani Cortez MD on 08/28/2024 6:41 AM ASSESSMENT & RECOMMENDATIONS Recurrent falls -Multiple falls over the last few days. Son reports his balance has been off. -Neurosurgery consulted and signed off. 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 Only medications were donepezil and and lexapro increased to 10mg daily.No orthostasis documented. -PT/OT -Check orthostatics -Begin mobilization as soon as possible -Scheduled tylenol 1 gm q 8 hrs. Max dose is 3 gm daily in geriatric patients. -Lidoderm patch -SW for dispo planning. Son reports they were in the process of increasing his fathers assembler plastic boat time to 24/7 at home. Son also mentioned he had planned to eventually move his dad at home with him ifneeded. In the meantime will need SNF placement due to recurrent falls. 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 -Donepezil likely not providing any benefit. Would stop it Discussed with family -Takes Quetiapine twice daily at home to calm him down per son who reports it works well. -Stop hydroxyzine due to anticholinergic SE. . Had been taking twice daily at home. Family aware -Obtain a UA to rule out possible infectious cause of altered mental status Depression -Lexapro 10mg daily #Risk of Delirium -Currently delirious. Multifactorial given falls, head bleed, pain, ER stay, immobility, disturbed sleep/wake cycle, baseline dementia. -Delirium is a morbid condition associated with mortality and is preventable Recommendations - Daily CAM assessment - minimize tethers (eg re-assess need for Adkins daily) - Miralax for prevention of constipation if on opioids - early mobilization - Avoid sedative hypnotics/anticholniergics. Avoid narcotics - Ensure adequate pain control. - Address sensory deficits. Vision and hearing - Provide orienting stimuli: Clock, calendar, minimal staff changes, light during the day, dark at night - please place the following orders in a nursing communication: up in chair with meals TID if activity orders allow blinds up and lights on in the AM. daily family visits Minimize nocturnal disturbances. Avoid unnecessary labs, VS, medications at night. Promote regular sleep/wake cycle Optimize nutritional status. Ensure supplements TID between meals if needed Monitor electrolytes QD, Replace K<4, Mg<2, Phos<3 PT/OT recs: Pending Code Status: Currently full. After discussion with le Wise and POA at bedside he said his dad would not want to be a full code and CPR and/or intubation would not align with his goals of care. Notified [place] in trauma of this discussion and change code status orders as discussed with family. Thank you for this consult. We will continue to follow along with you. Please call with questions. Please note, recommendations are not final until co-signed/attested by attending I have spent total 60 minutes caring for this patient, reviewing available labs, medications, coordinating care with staff and discussing patient with family (I spent 20 minutes at bedside discussingpatient with le Wise). Patient was seen and discussed with attending, Dr. Sienna Almodovar, ANP-, Geriatrics 08/28/2024 8:41 AM CH EXAMINER Associated attestation - Marie El MD - 08/28/2024 6:07 PM BRANCH EXAMINER [facility] Geriatric New Patient Consult Frandy Alvares [id number] Age: [age] year old. Date of : 1935 Admission Date: 08/27/2024 Reason For Consult: Geriatric evaluation in trauma Requesting Physician: Dr. Rocha HPI: Frandy Alvares is 89 year old male seen for unwitnessed fall at his home in his bathroom. Was down for a short amount of time and found by caregiver. He sustained head trauma with finding of chronic subdural and 11th rib fxt. Despite no sedation he is somnolent having been restless and awake all night long. Per son he has wandering and restlessness at home managed with quetiapine. He has dementiaand is paranoid and resists care. CONFUSION ASSESSMENT METHOD 1) Acute onset or fluctuating course: Yes 2) Inattention: Yes 3) Disorganized thinking: Yes 4) Altered Level of Consciousness: Yes Level of Consciousness: somnolent Delirium is suggested Comprehensive Geriatric Assessment: Falls: many Weight loss: yes Orthostatic: yes Incontinence: no UI Vision/Hearing Problems: glasses, no WILEY Medication Review: has high risk meds for falling CAM Score : 4/4 PHQ9: anxious, not depressed SLUMS: dementia present SNAQ: high risk /16 (14 or less indicates risk of weight loss) ADL: dependent in hygiene, dressing IADL: dependent in all FRAIL score :3 / 5 (3+ indicates frailty) SARC-F score: 6/10 (4+ indicates sarcopenia) Past Medical History: Past Medical History: Diagnosis Date Actinic keratosis Dementia (HCC) Squamous cell carcinoma Past Surgical History: Past Surgical History: Procedure Laterality Date Back Surgery Cataract Removal Bilateral Rotator Cuff Repair Home Medications: No current facility-administered medications on file prior to encounter. Current Outpatient Medications on File Prior to Encounter Medication Sig Dispense Refill alfuzosin CR 24hr (UROXATRAL) 10 MG tablet Take 1 (one) tablet by mouth once daily Apoaequorin (PREVAGEN PO) Take 1 tablet by mouth once daily aspirin EC (ECOTRIN) 81 MG tablet Take 1 (one) tablet by mouth once daily FIBER PO Take 1 capsule by mouth 2 times daily finasteride (PROSCAR) 5 MG tablet Take 1 (one) tablet by mouth once daily GLUCOSAMINE CHONDROITIN COMPLX PO Take 1 tablet by mouth once daily hydrOXYzine HCl (Atarax) 10 MG tablet ibuprofen (MOTRIN) 600 MG tablet Take 1 (one) tablet by mouth as needed ingenol (PICATO) 0.015 % gel Apply to affected area once daily For actinic keratosis on the Forehead and your hair line Use for 3 days. (Patient not taking: Reported on 05/05/2020) 3 Each 0 lovastatin (MEVACOR) 20 MG tablet Take 1 (one) tablet by mouth once daily 12 metoprolol succinate XL 24hr (TOPROL XL) 25 MG tablet Take 0.5 (one-half) tablet by mouth once daily Multiple Vitamins-Minerals (HAIR SKIN AND NAILS FORMULA) TABS Take 2 tablets by mouth once daily Vitamin D, Cholecalciferol, 1000 UNITS CAPS Take 1 (one) capsule by mouth once daily Current medication List: 0.9% NaCl 3 mL Intracatheter q8h acetaminophen 1,000 mg Oral TID enoxaparin 30 mg Subcutaneous q12h escitalopram 10 mg Oral QDAY famotidine 20 mg Oral QDAY lidocaine 1 patch Transdermal QDAY polyethylene glycol 3350 17 g Oral QDAY QUEtiapine 12.5 mg Oral AT BEDTIME QUEtiapine 25 mg Oral QDAY senna 8.6 mg Oral QDAY Allergies: Allergies Allergen Reactions Epinephrine Dizziness Passed out for 4 hours in childhood Family History: Family History Problem Relation Name Age of Onset High Blood Pressure Mother CAD (Coronary Artery Disease) Mother Asthma Neg Hx Eczema Neg Hx Cancer - Other Neg Hx Cancer - Breast Neg Hx Cancer - Skin, Non Melanoma Neg Hx Cancer - Skin, Melanoma Neg Hx CVA Neg Hx Hemophilia Neg Hx Psoriasis Neg Hx Social History: Social History Socioeconomic History Marital status: Spouse [...] Social Determinants of Health Financial Resource Strain: Not on file Food Insecurity: Not on file Transportation Needs: Not on file Stress: Not on file Housing Stability: Not on file PCP: Bao Pierre MD DPOA: son Review of Systems: Review of Systems - unable to obtain due to somnolence Vitals: Vitals: 08/28/24 0603 08/28/24 0928 08/28/24 1529 08/28/24 1530 BP: (!) 130/116 124/90 Pulse: 71 83 83 Resp: 28 18 Temp: 98.2 ??F (36.8 ??C) 98 ??F (36.7 ??C) SpO2: 100% Weight: Height: Estimated body mass index is 24.33 kg/m?? as calculated from the following: Height as of this encounter: 1.727 m (5' 8 ). Weight as of this encounter: 72.6 kg (160 lb). Weight: Wt Readings from Last 2 Encounters: 08/27/24 72.6 kg (160 lb) 06/03/16 95.3 kg (210 lb) Physical Exam: Exam: somnolent, OX0 not restless or agitated PERRL,conjuctiva clear OP dry with dried secretions, no erythema Neck: in c collar Resp: CTA no rales/wheeze, equal BS CV: RRR No murmur or gallop Abd: + BS, soft, NT/ND, no masses Ext: no edema in bilat LE DP palp bilat Skin: no ulcers callous or maceration bilat feet Neuro: no tremor or UE dysmetria Muscskel: no synovitis in wrists or hands bilat Labs: Coagulation: Recent Labs Component Name 08/27/242304 PT 14.1 INR 1.1 Recent Labs Component Name 08/27/24230407/03/15 0853 WBC 10.7 9.4 HGB 10.9* 15.2 MCV 91.9 96.4 PLT - 158 INR 1.1 - Recent Labs Component Name 08/27/24230407/03/15 0853 NA 136 138 K - 4.4 CL 107 102 CO2 23 25 BUN 25 20 CREATININE 1.07 1.05 Recent Labs Component Name 07/03/15 0853 AST 21 ALT 28 ALKPHOS 61 TBILI 0.5 ALB 4.4 LIPIDs Recent Labs Component Name 07/03/15 0853 CHOL 142 HDL 35* LDLCALC 83 TRIG 122 CHOLHDL 4.1 DIABETES Recent Labs Component Name 08/27/24230407/03/15 0853 GLU - 102* CREATININE 1.07 1.05 Cardiac markers: Recent Labs Component Name 08/27/242304 CKTOTAL 417* Imaging: XR PELVIS 1 OR 2VW Result Date: 08/28/2024 IMPRESSION: No acute fracture identified. Report dictated by Dante Mcclain MD, (residential plumber). ISho MD have personally reviewed and interpreted this examination/study. > Interpreting Provider: Sho Minaya MD on 08/28/2024 9:15 AM XR Elbow Left 3Vw or More Result Date: 08/28/2024 IMPRESSION: No acute fracture or dislocation identified. Report dictated by Dante Mcclain MD, (residential plumber). Sho Macedo MD have personally reviewed and interpreted this examination/study. > Interpreting Provider: Sho Minaya MD on 08/28/2024 9:13 AM XR Ankle Left 3Vw or More Result Date: 08/28/2024 IMPRESSION: No acute fracture or dislocation identified. Report dictated by Dante Mcclain MD, (residential plumber). Sho Macedo MD have personally reviewed and interpreted this examination/study. > Interpreting Provider: Sho Minaya MD on 08/28/2024 9:[address] CHEST ABDOMEN PELVIS W CONT - Abdomen-pelvis trauma, blunt or penetrating Result Date: 08/28/2024 Impression: Mild limitations to the exam secondary [...] or pelvis. >Dictated by Dorian Cuevas MD (residential plumber). Tyree Macedo have personally reviewed and interpreted this examination/study. > Interpreting Provider: Tyree Tyler on 08/28/2024 8:[address] HEAD WO CONTRAST - Head Trauma, CSF leak, mental status changes Result Date: 08/28/2024 IMPRESSION: Significant motion artifact limits evaluation for [...] report is dictated by Dante Mcclain MD (residential plumber) Kalyani Macedo MD have personally reviewed and interpreted this examination/study. > Interpreting Provider: Kalyani Cortez MD on 08/28/2024 6:[address] FACIAL BONES WO CONTRAST - Facial trauma, fx suspected, blunt Result Date: 08/28/2024 IMPRESSION: Significant motion artifact limits evaluation for [...] report is dictated by Dante Mcclain MD (residential plumber) Kalyani Macedo MD have personally reviewed and interpreted this examination/study. > Interpreting Provider: Kalyani Cortez MD on 08/28/2024 6:[address] CERVICAL SPINE WO CONTRAST - C-Spine Trauma, Spine fracture Result Date: 08/28/2024 IMPRESSION: Significant motion artifact limits evaluation for [...] report is dictated by Dante Mcclain MD (residential plumber) Kalyani Macedo MD have personally reviewed and interpreted this examination/study. > Interpreting Provider: Kalyani Cortez MD on 08/28/2024 6:[address] THORACIC SPINE WO CONTRAST - T/L-spine trauma, spine fracture Result Date: 08/28/2024 IMPRESSION: Significant motion artifact limits evaluation for [...] report is dictated by Dante Mcclain MD (residential plumber) Kalyani Macedo MD have personally reviewed and interpreted this examination/study. > Interpreting Provider: Kalyani Cortze MD on 08/28/2024 6:[address] LUMBAR SPINE WO CONTRAST - T/L-spine trauma, Spine fracture Result Date: 08/28/2024 IMPRESSION: Significant motion artifact limits evaluation for [...] report is dictated by Dante Mcclain MD (residential plumber) Kalyani Macedo MD have personally reviewed and interpreted this examination/study. > Interpreting Provider: Kalyani Cortez MD on 08/28/2024 6:41 AM Assessment and Plan Delirium evaluation: Patient currently does have delirium. Potential risks for delirium include immobility, falls head trauma, SDH, demenita, risk of constipation, risk of urinary retention, sleep deprivation. Risk reduction includes: - Avoid sedative hypnotics/anticholinergics - Allow family at bedside as much as possible. Familiar faces help manage delirium - Avoid restrictions/restraints in general - Allow OOB to chair mobilization as soon as possible. PT/OT assessment needed. - Make sure his bowels are moving. Daily Miralax - Monitor for retention. Bladder scan post void. Straight cath for residuals >350ml - Optimize nutritional status. Ensure supplements TID between meals. - - Address unrecognized pain. Routine tylenol 650mg po q 6 hrs routine 2. Dementia with agitation and wandering at baseline: uses quetiapine at HS and would give this tonight to attempt sleeping at night. Attempt to keep awake during day. Unlikely that aricept is helping at this point and family agree to stop medication. 3. Recurrent falls: discussed with family that he is using hydroxyzine bid which could cause dizziness/confusion. Suggest d/c medication and they agree. PT.OT evaluation needed as likely to require SNF placement vs d/c to home with son based on his functional ability. 4. MDD with anxiety: continue lexapro 10 mg daily. Marie El MD Geriatric Medicine Attending Pager: 08/28/2024 12:30pm * Enoch Oliver MD - 08/28/2024 12:58 AM CST Images from the original note were not included. Neurosurgery Consult Note Name: Frandy Alvares : 1935 Date of Admission:08/27/2024 Date of Consult:08/28/2024 Scans Viewed: 0015 Bedside: 0038 Chief Complaint (CC): bilateral chronic subdurals HISTORY OF PRESENT ILLNESS (HPI): Pt BIBEMS from OSH s/p multiple falls as level 2 trauma. Per EMS, pt's son reports pt was more altered today and has been falling more over the past week. Baseline AOX2 with hx of dementia, AOX1 on arrival. Was given 5mg ativan at OSH, limited hx due to confusion. Found to have subdural at OSH. Patient is on ASA81 daily. Anticoagulation: ASA81 Past Medical History: Diagnosis Date Actinic keratosis Squamous cell carcinoma Current Medications alfuzosin CR 24hr (UROXATRAL) 10 MG tablet Take 1 (one) tablet by mouth once daily Apoaequorin (PREVAGEN PO) Take 1 tablet by mouth once daily aspirin EC (ECOTRIN) 81 MG tablet Take 1 (one) tablet by mouth once daily FIBER PO Take 1 capsule by mouth 2 times daily finasteride (PROSCAR) 5 MG tablet Take 1 (one) tablet by mouth once daily GLUCOSAMINE CHONDROITIN COMPLX PO Take 1 tablet by mouth once daily hydrOXYzine HCl (Atarax) 10 MG tablet ibuprofen (MOTRIN) 600 MG tablet Take 1 (one) tablet by mouth as needed ingenol (PICATO) 0.015 % gel Apply to affected area once daily For actinic keratosis on the Forehead and your hair line Use for 3 days. lovastatin (MEVACOR) 20 MG tablet Take 1 (one) tablet by mouth once daily metoprolol succinate XL 24hr (TOPROL XL) 25 MG tablet Take 0.5 (one-half) tablet by mouth once daily Multiple Vitamins-Minerals (HAIR SKIN AND NAILS FORMULA) TABS Take 2 tablets by mouth once daily Vitamin D, Cholecalciferol, 1000 UNITS CAPS Take 1 (one) capsule by mouth once daily PHYSICAL EXAM BP 156/88 Pulse 92 Temp 98 ??F (36.7 ??C) Resp 24 Ht 1.727 m (5' 8 ) Wt 72.6 kg (160 lb) SpO2 97% General: NAD Neuro: awakens to voice, moves all extremities equally and strongly, ou=r, face symmetric, grunts to stim. P[facility] LABORATORY PT: 14.1 INR: 1.1 Plt: 203 Hgb: 10.9 TEG: inhibited RADIOLOGY CT: Assessment: 89 year old male with chronic subdurals and multiple falls. H/o dementia and ASA81. Awakens and moves spontaneously in bed, altered with dementia and ativan. Plan: - No surgical intervention, likely chronic hygromas related to cerebral volume loss - Neurosurgery signing off, no follow up Case discussed with Dr. Oliver. Nando Solo MD 08/28/2024 12:58 AM Staff note Patient reviewed by me. Agree with above. CH EXAMINER documented in this encounter ED Notes * BrijeshRichard weiss RN - 08/28/2024 12:35 PM CST Pt bladder scanned 3x times. Volume of 351ml CH EXAMINER * Tunde Boogie MD - 08/28/2024 6:38 AM CST ASSUMED CARE NOTE Patient signed out to me by Dr. Capps at 6:10 AM. Briefly, Frandy Alvares is a 89 year old male is being evaluated s/p fall. Pt has dementia and is A&O x2 at baseline. At this time the patient's condition is Stable. Thus far, studies reveal subdural hematoma,fracture of one rib of right side,contusion of right lung Pending studies include:None Plan is previous team admit pt to trauma surgery with neurosurgery following. Clinical Impression: 1. SDH (subdural hematoma) (HCC) 2. Trauma 3. Fall, subsequent encounter 4. Closed fracture of one rib of right side, initial encounter 5. Contusion of right lung, initial encounter 6. Fall, initial encounter 7. Altered mental status, unspecified altered mental status type Disposition: Previous team admit pt to trauma surgery By signing my name below, I, Roddy Cunningham , attest that this documentation has been prepared under the direction and in the presence of Dr. Boogie. Signed: Kelin Burton. Date: 08/31/2024. Time:6:10 AM. CH EXAMINER * Leonor Johnson Graduate Nurse - 08/28/2024 1:16 AM CST This RN handed pts wedding ring over to pts son (Frandy Alvares). CH EXAMINER * Alice Will RN - 08/28/2024 1:15 AM CST Bed: AC20 Expected date: Expected time: Means of arrival: Comments: T01 CH EXAMINER * Alice Capps MD - 08/28/2024 12:21 AM CST ED Resident Attestation I have personally seen, examined and been fully involved in the management of this patient with theresident. I confirm history, exam, assessment and plan Discussed with the resident. In addition I note: Interval History: Frandy Alvares is a 89 year old male BIBEMS as a level 2 trauma and transfer from [facility],per EMS pt's son said he his dementia has worsened and has been having recurrent falls causing ecchymosis over the past week. Per EMS at OSH they found a subdural hematoma on scans and they did not know if it was new. Per EMS, pt's baseline is A&O x2 and is now A&O x1. Per EMS, pt is not onblood thinners, SpO2- 100% on room air, HR- 90 BPM, subdural hematoma unknown if new. HPI limited due to pt mentation. Past Medical History: Diagnosis Date Actinic keratosis Squamous cell carcinoma No past surgical history on file. Social History Socioeconomic History Marital status: Spouse name: Not on file Number of children: Not on file Years of education: Not on file Highest education level: Not on file Occupational History Not on file Tobacco Use Smoking status: Former Types: Pipe Quit date: 2014 Years since quittin.9 Smokeless tobacco: Former Substance and Sexual Activity Alcohol use: Yes Comment: rarely Drug use: No Sexual activity: Never Other Topics Concern Not on file Social History Narrative Not on file Social Determinants of Health Financial Resource Strain: Not on file Food Insecurity: Not on file Transportation Needs: Not on file Stress: Not on file Housing Stability: Not on file Review of Systems: ROS limited per HPI Vitals: 08/27/24 2256 08/27/24 2300 08/27/24 2345 08/28/24 0000 BP: 120/76 163/88 156/88 Pulse: 92 Resp: 16 24 Temp: 98 ??F (36.7 ??C) SpO2: 96% 97% Weight: Height: Exam: Constitutional: well developed, well nourished, no acute distress HENT: normocephalic, moist oral mucosa, conjunctiva normal, 3 abrasion to L lateral eyebrow with subacute ecchymosis Eyes: PERRL, no drainage Neck: supple, normal ROM Cardiovascular: regular rate and rhythm, no murmur Respiratory: clear to auscultation bilaterally, no wheezes, no respiratory distress Abdomen: soft, non-tender, non-distended Genitourinary: normal Musculoskeletal: no edema or deformities, No step-offs or crepitus noted. Rectal tone intact. Patient denies spinal tenderness. Skin: warm, dry, no lesions, abrasion to L elbow, ecchymosis to L dorsal hand and L lateral ankle Neurological: awake, alert&Ox1, moving all extremities, no focal motor/sensation deficits. Psychiatric: mood and affect normal MDM: 89 y/o male BIBEMS as a level 2 trauma for subdural hemorrhage found at OSH, AMS, and recurrent falls. Problem List: 1) fall 2) subdural hemorrhage Differential diagnosis to evaluate in the emergent setting: ICH Spinal Injury Organ injury Fracture Abrasion Laceration Contusion Dislocation Vascular injury Nerve injury Other Workup: See lab testing and radiography ordered Treatment plan: Symptom control Workup with labs/imaging Trauma recommendations Reassess Results: Labs Reviewed BASIC METABOLIC PANEL (CALCIUM TOTAL) - Abnormal; Notable for the following components: Result Value eGFR by CKD-EPI 67 (*) All other components within normal limits CBC W AUTO DIFFERENTIAL - Abnormal; Notable for the following components: RBC Count 3.47 (*) Hemoglobin 10.9 (*) Hematocrit 31.9 (*) Neutrophil % 75.1 (*) Lymphocyte % 15.2 (*) Neutrophil Absolute 8.03 (*) All other components within normal limits CK BLOOD - Abnormal; Notable for the following components: CK Total 417 (*) All other components within normal limits TEG 6 GLOBAL HEMOSTASIS W/ LYSIS - Abnormal; Notable for the following components: Citrated Kaolin R (Reaction Time) 4.5 (*) All other components within normal limits TEG 6S PLATELET MAPPING - Abnormal; Notable for the following components: TEGPLM (Max Amplitude) AA 18.3 (*) TEGPLM %Inhibition ADP 30.8 (*) TEGPLM %Inhibition AA 93.5 (*) TEGPLM %Aggregation ADP 69.2 (*) TEGPLM % Aggregation AA 6.5 (*) All other components within normal limits ALCOHOL ETHYL BLOOD - Normal Narrative: Ethanol Interp <10: None Detected. Depression of [employer]: >100 mg/dl Potentially Critical: >250 mg/dl Potentially Fatal >400 mg/dl Ethanol in the patient's blood will contribute to the osmolar gap. Ethanol's contribution to the osmolar gap can be estimated by dividing the concentration of ethanol in mg/dL by 4.6. This test is for clinical use only and does not equal a OSWALDO for legal purposes. PT-INR [facility] - Normal PTT [facility] - Normal TYPE + SCREEN PANEL BLOOD TYPE VERIFICATION CT HEAD WO CONTRAST - Head Trauma, CSF leak, mental status changes (Results Pending) CT FACIAL BONES WO CONTRAST - Facial trauma, fx suspected, blunt (Results Pending) CT CERVICAL SPINE WO CONTRAST - C-Spine Trauma, Spine fracture (Results Pending) CT CHEST ABDOMEN PELVIS W CONT - Abdomen-pelvis trauma, blunt or penetrating (Results Pending) CT THORACIC SPINE WO CONTRAST - T/L-spine trauma, spine fracture (Results Pending) CT LUMBAR SPINE WO CONTRAST - T/L-spine trauma, Spine fracture (Results Pending) XR CHEST 1VW PORTABLE (Results Pending) XR PELVIS 1 OR 2VW (Results Pending) XR Elbow Left 3Vw or More (Results Pending) XR Ankle Left 3Vw or More (Results Pending) ED course: The patient's Oxygen Saturation Monitor was interpreted by me. The reading was 97%. The patient wason room air at the time of the reading. This is interpreted as normal. ED Course as of 08/28/24 0702 Tue Aug 27, 2024 225 Pt BIBEMS at this time. [AD] 2253 C-collar placed. [AD] 2255 BP- 168/107, SpO2- 97%, RR- 12, HR- 90 bpm [AD] 2255 Patient log rolled L. C-spine precautions maintained. No step-offs or crepitus noted. Rectal tone intact. Patient denies spinal tenderness. [AD] 2256 Bedside XR done at this time. [AD] MonAug 28, 2024 0309 After discussion with Trauma, the patient will be admitted to their service for further management of fall. Admitting provider is Dr. Rocha. - I have reviewed the diagnostic findings with the patient and they have had an opportunity to ask me any questions they have about care, diagnosis, and reason for admission. The patient states understanding and agrees to admission. [AD] ED Course User Index [AD] Indira Saavedra Clinical Impressions as of 08/28/24 0702 Trauma Fall, subsequent encounter Closed fracture of one rib of right side, initial encounter Contusion of right lung, initial encounter SDH (subdural hematoma) (HCC) Consult Yes Procedure done at this time No Ultrasound done at this time No CRITICAL CARE IN THE ED No Orders and Medicine administered during this encounter: Orders Placed This Encounter CT HEAD WO CONTRAST - Head Trauma, CSF leak, mental status changes CT FACIAL BONES WO CONTRAST - Facial trauma, fx suspected, blunt CT CERVICAL SPINE WO CONTRAST - C-Spine Trauma, Spine fracture CT CHEST ABDOMEN PELVIS W CONT - Abdomen-pelvis trauma, blunt or penetrating CT THORACIC SPINE WO CONTRAST - T/L-spine trauma, spine fracture CT LUMBAR SPINE WO CONTRAST - T/L-spine trauma, Spine fracture XR CHEST 1VW PORTABLE XR PELVIS 1 OR 2VW XR Elbow Left 3Vw or More XR Ankle Left 3Vw or More ALCOHOL ETHYL BLOOD BASIC METABOLIC PANEL (CALCIUM TOTAL) CBC W AUTO DIFFERENTIAL CK BLOOD PT-INR [facility] PTT [facility] TEG 6 GLOBAL HEMOSTASIS W/ LYSIS TEG 6S PLATELET MAPPING IP CONSULT TO NEUROSURGERY OXYGEN WITHOUT TITRATION (ADULT) AND Linked Order Group 0.9% NaCl injection 3 mL 0.9% NaCl injection 1-10 mL Dgvpbty-Gkwzs-Fuqlh Pertussis Vaccine (Boostrix; 7y+) (Tdap) 0.5 mL iopamidol (Isovue 370) 76 % contrast Medications 0.9% NaCl injection 3 mL (has no administration in time range) And 0.9% NaCl injection 1-10 mL (has no administration in time range) iopamidol (Isovue 370) 76 % contrast (100 mL Intravenous $ Given - Contrast 08/27/24 2330) Zxlwvtm-Zomfs-Gxiia Pertussis Vaccine (Boostrix; 7y+) (Tdap) 0.5 mL (0.5 mL Intramuscular $ Given 08/27/24 2339) Clinical Impression: 1. SDH (subdural hematoma) (HCC) 2. Trauma 3. Fall, subsequent encounter 4. Closed fracture of one rib of right side, initial encounter 5. Contusion of right lung, initial encounter Scripts: Disposition: Admitted to Trauma Follow-up: Please see resident note for further details By signing my name below, I,Indira Davidovits, attest that this documentation has been prepared under the direction and in the presence of Dr. Capps. Signed: Kelin Carpenter. I, Dr. Capps, personally performed the services described in this documentation. All medical record entries made by the scribe were at my direction and in my presence. I have reviewed the chart and agree that the record reflects my personal performance and is accurate and complete. Signed: Dr. Capps. 08/28/2024. 7:02 AM. CH EXAMINER * Tg Spears RN - 08/27/2024 11:15 PM CST Pt BIBEMS from OSH s/p multiple falls as level 2 trauma. Per EMS, pt's son reports pt was more altered today and has been falling more over the past week. Baseline AOX2 with hx of dementia, AOX1 on arrival. Was given 5mg ativan at OSH, limited hx due to confusion. Found to have subdural at OSH. VSSfor EMS. Past Medical History: Diagnosis Date Actinic keratosis Squamous cell carcinoma No past surgical history on file. CH EXAMINER * Tg Spears RN - 08/27/2024 10:56 PM CST Pt rolled at this time. Spinal precautions maintained. Limited evaluation for tenderness due to receiving ativan at OSH. No step off or deformity. Rectal tone intact, no blood present. CH EXAMINER * Alice Will RN - 08/27/2024 10:53 PM CST Bed: T01 Expected date: Expected time: Means of arrival: Comments: Level 2 page 2245 CH EXAMINER documented in this encounter Miscellaneous Notes * Coding Query - Joey Nunn DO - 09/06/2024 11:53 AM CST DOCUMENTATION CLARIFICATION REQUEST Use the F2 function matson to complete the query. Click ???Sign?? to file the note. FROM: Mar LEE, RN, CCRN - Clinical Metal Filer Email: [email or web address] Phone: [phone] Patient Name: Frandy Alvares Please clarify and document your clinical opinion if the patient is being monitored/evaluated/treated for: Choices may include but are not limited to: Brain Compression No Brain Compression Other, please specify Unable to determine The medical record reflects the following: Risk Factors: Fall, Subdural Hematoma Clinical Findings: presented for unwitnessed fall at his home in his bathroom with unknown LOC 12/ DC Summary Altered mental status SDH (subdural hematoma) 12/ DC Summary Per son, Pt had been increasingly confused over the prior week with multiple falls recently on ASA. Stated baseline AMS was A&Ox2. 12/ DC Summary Geriatric medicine consulted and determined delirium in the setting of immobility, falls w/ head trauma, SDH, Dementia 12/ DC Summary On HOD #1, Pt was witnessed to have tonic/clonic event, which was reported to have happened beforeby caregiver. Neurology was consulted who recommended routine EEG (showing increased tendency toward seizures, and mild/mod encephalopathy) 12/ DC Summary MRI showed no acute change. 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 There is very minimal if any mass effect on the underlying brain parenchyma. Treatment: Serial MRI and CT Head, Neuro and Mary and Psych Consults, Fall Precaution, PROVIDER RESPONSE (Use F2 to respond) No brain compression Please provide your clinical opinion and findings to support the diagnosis in the progress notes & carry it through into your discharge summary. THIS DOCUMENT IS MAINTAINED A PERMANENT PART OF THE MEDICAL RECORD. CH EXAMINER * Code/Rapid Response Event - Shayy Sapp RN - 09/05/2024 3:33 AM BRANCH EXAMINER RAPID RESPONSE DOCUMENTATION NOTE PATIENT'S NAME: Frandy Alvares BIRTHDATE: 1935 CODE STATUS: DNR - IF PULSELESS NO CPR, NO SHOCK RAPID DATE: 09/05 RAPID TIME: 251 RAPID LOCATION: 836b ADMITTING SERVICE: Joey Nunn DO PERSON(S) NOTIFIED: Person(s) Notified: Loop Tacker and The care team at bedside PRIMARY REASON FOR CALL: Syncopal episode OUTCOME: Remains in current room SUMMARY OF RAPID EVENTS: MANAGER PROCESS IMPROVEMENT called for syncopal episode while on toilet. Primary RN stated pt was unresponsive for a minute then woke to sternal rub. Pt assisted back to bed. Vital signs stable. Encouraging oral fluids and extreme caution when ambulating patient. MANAGER PROCESS IMPROVEMENT to remain available for any changes in condition. 40 minutes spent on patient assessment, review of relevant data, and documentation. CH EXAMINER * Code/Rapid Response Event - Benton Boyce RN - 09/03/2024 7:36 PM BRANCH EXAMINER RAPID RESPONSE DOCUMENTATION NOTE PATIENT'S NAME: Frandy Alvares BIRTHDATE: 1935 CODE STATUS: DNR - IF PULSELESS NO CPR, NO SHOCK RAPID DATE: 09/03/2024 RAPID TIME: 1935 RAPID LOCATION: 836b ADMITTING SERVICE: Joey Nunn DO PERSON(S) NOTIFIED: Person(s) Notified: Loop Tacker and The care team at bedside PRIMARY REASON FOR CALL: Other (comment) witnessed fall OUTCOME: Remains in current room SUMMARY OF RAPID EVENTS: MANAGER PROCESS IMPROVEMENT called for a syncopal episode. Per primary nurse pt was ambulating to the bathroom with assistance when he lost consciousness for less than ten seconds and was assistedto the floor. Per primary nurse pt did not hit his head during the fall. Upon MANAGER PROCESS IMPROVEMENT's arrival pt awake and back to baseline with the nursing staff assisting the pt back to bed. MD at bedside and after discussion with MANAGER PROCESS IMPROVEMENT orthostatic blood pressures were ordered and completed. Results as follow pt's laying BP 172/80(101) sitting 129/99 and standing BP agreed not necessary as concluded by MD team a drop in pt's BP was the likely cause of the pt's fall. At this time the pt is back to his original baseline and is deemed stable to remain on the floor. Please feel free to reach out with any other questions or changes in pt's condition 15 minutes spent on patient assessment, review of relevant data, and documentation. CH EXAMINER documented in this encounter Plan of Treatment Upcoming Encounters Date Type Department Care Team (Late st Contact Info) Description 10/09/2024 11:30 AM BRANCH EXAMINER Office Visit [facility] - Dermatology [address] [place] [phone] Katharine Bar MD [address] [place] [address] [address] [place] [phone] 11/19/2024 8:30 AM BRANCH EXAMINER Office Visit [facility] - Dermatology [address] [place] [phone] Patricia Jarvis MD [address] [place] [address] 11/22/2024 8:00 AM BRANCH EXAMINER Office Visit [facility] - Neurology [address] [place] [phone] Chay Nieves MD [address] [place] [address] Scheduled Orders Name Type Priority Associated Diagnoses Orde r Schedule EEG Neurology STAT ONCE for 1 Occ urrences starting 08/29/2024 until 08/29/2024 EKG 12-LEAD ECG Routine Fall, initial encounter ONCE for 1 Occurrences starting 08/29/2024 until 08/29/2024 Scheduled Referrals Name Type Priority Associated Diagnoses Orde r Schedule Referral to Home Health Care Outpatient Referral Routine SDH (subdural hematoma) (HCC) Severe dementia with agitation, unspecified dementia type (HCC) Delirium Severe protein-calorie malnutrition (HCC) Impaired mobility and ADLs Ordered: 09/02/2024 AMB REFERRAL FOR DME Outpatient Referral Routine Orthostatic hypotension 1 Occurrences starting 09/06/2024 until 09/06/2025 Ref to Neurology [facility] Outpatient Referral Routine Observed seizure-like activity (HCC) Ordered: 09/06/2024 documented as of this encounter Procedures Procedure Name Priority Date/Time Associated Diagnosis Comments MRI BRAIN WWO CONTRAST PENDING DISCHARGE 09/05/2024 9:33 AM BRANCH EXAMINER Altered mental status, unspecified altered mental status type EKG 12-LEAD Routine 08/30/2024 1:59 PM BRANCH EXAMINER SDH (subdural hematoma) (HCC) XR ANKLE LEFT 3VW OR MORE Routine 08/30/2024 10:22 AM BRANCH EXAMINER Fall, initial encounter CT HEAD WO CONTRAST STAT 08/29/2024 1 0:56 AM BRANCH EXAMINER SDH (subdural hematoma) (HCC) CBC W/O DIFFERENTIAL AM Draw 08/29/2024 4:48 AM BRANCH EXAMINER BASIC METABOLIC PANEL (CALCIUM TOTAL) AM Draw 08/29/2024 4:48 AM BRANCH EXAMINER PHOSPHORUS BLOOD Routine 08/29/2024 4:48 AM BRANCH EXAMINER MAGNESIUM BLOOD Routine 08/29/2024 4:48 AM BRANCH EXAMINER URINALYSIS REFLEX TO MICROSCOPIC NO CULTURE Routine 08/28/2024 8:52 PM BRANCH EXAMINER URINE DRUG SCREEN IMMUNOASSAY STAT 08/28/2024 8:52 PM BRANCH EXAMINER BLOOD TYPE VERIFICATION STAT 08/28/2024 8:23 PM BRANCH EXAMINER SARS-COV-2 (COVID-19) RAPID STAT 08/28/2024 11:05 AM BRANCH EXAMINER Trauma XR ELBOW LEFT 3VW OR MORE STAT 08/27/2024 11:41 PM BRANCH EXAMINER Trauma XR ANKLE LEFT 3VW OR MORE STAT 08/27/2024 11:41 PM BRANCH EXAMINER Trauma CT CHEST ABDOMEN PELVIS W CONT STAT 08/27/2024 11:34 PM BRANCH EXAMINER Trauma CT LUMBAR SPINE WO CONTRAST STAT 08/27/2024 11:34 PM BRANCH EXAMINER Trauma CT THORACIC SPINE WO CONTRAST STAT 08/27/2024 11:34 PM BRANCH EXAMINER Trauma CT CERVICAL SPINE WO CONTRAST STAT 08/27/2024 11:34 PM BRANCH EXAMINER Trauma CT FACIAL BONES WO CONTRAST STAT 08/27/2024 11:34 PM BRANCH EXAMINER Trauma CT HEAD WO CONTRAST STAT 08/27/2024 1 1:34 PM BRANCH EXAMINER Trauma XR CHEST 1VW PORTABLE STAT 08/27/2024 11:33 PM BRANCH EXAMINER Trauma XR PELVIS 1 OR 2VW STAT 08/27/2024 11 :33 PM BRANCH EXAMINER Trauma TEG 6 GLOBAL HEMOSTASIS W/ LYSIS STAT 08/27/2024 11:05 PM BRANCH EXAMINER TEG 6S PLATELET MAPPING STAT 08/27/2024 11:05 PM BRANCH EXAMINER PTT [facility] STAT 08/27/2024 11:05 PM BRANCH EXAMINER PT-INR [facility] STAT 08/27/2024 11:05 PM BRANCH EXAMINER TYPE + SCREEN PANEL STAT 08/27/2024 1 1:05 PM BRANCH EXAMINER CBC W AUTO DIFFERENTIAL STAT 08/27/2024 11:05 PM BRANCH EXAMINER BASIC METABOLIC PANEL (CALCIUM TOTAL) STAT 08/27/2024 11:05 PM BRANCH EXAMINER CK BLOOD STAT 08/27/2024 11:05 PM BRANCH EXAMINER ALCOHOL ETHYL BLOOD STAT 08/27/2024 1 1:05 PM BRANCH EXAMINER documented in this encounter Results * MRI Brain Wwo Contrast (09/05/2024 9:33 AM BRANCH EXAMINER) Anatomical Region Laterality Modality Head Magnetic Resonan ce 09/06/2024 7:33 AM BRANCH EXAMINER Impressions 09/06/2024 7:49 AM BRANCH EXAMINER IMPRESSION: 1.Redemonstration of bilateral frontal convexity subdural [...] 09/06/2024 7:49 AM Narrative 09/06/2024 7:49 AM BRANCH EXAMINER PROCEDURE: ??MRI BRAIN WWO CONTRAST, DATE/TIME OF EXAM: ??09/05/2024 9:34 AM, LOCATION ??[facility] INDICATION: R41.82: Altered mental [...] CONTRAST, DATE/TIME OF EXAM: 09/05/2024 9:34AM, LOCATION [facility] INDICATION: R41.82: Altered mental [...] ORDERABLES * EKG 12-LEAD (08/30/2024 1:59 PM BRANCH EXAMINER) Ventricular Rate 57 BPM [facility] MUSE Atrial Rate 57 BPM [facility] P-R Interval 206 ms [facility] QRS Duration ms 94 ms [facility] Q-T Interval ms 458 ms [facility] QTC Calculation (Bezet) 445 ms [facility] MUSE Calculated P [place] 8 degrees [facility] Calculated R [place] -3 degrees [facility]USE Calculated T [place] 44 degrees [facility] Interpretation EKG POOR DATA QUALITY, INTERPRETATION MAY BE ADVERSELY AFFECTED SINUS BRADYCARDIA INFERIOR INFARCT , AGE UNDETERMINED ABNORMAL ECG NO PREVIOUS ECGS AVAILABLE Confirmed by ERVIN ROMERO DO ([id number]) on 09/04/2024 9:29:42 PM [facility] MUSE 08/30/2024 1:59 PM BRANCH EXAMINER 09/04/2024 9:29 PM BRANCH EXAMINER Amanda Dacosta MD ECG ORDERABLES [facility] M[facility] * XR Ankle Left 3Vw or More (08/30/2024 10:22 AM BRANCH EXAMINER) Anatomical Region Laterality Modality Lower Extremity Digital Radiogra phy 08/30/2024 11:1 1 AM BRANCH EXAMINER Impressions 08/30/2024 11:12 AM BRANCH EXAMINER IMPRESSION: No fracture or subluxation or dislocation seen; no suspicious radiopaque foreign body identified. > Interpreting Provider: Tyree Tyler on 08/30/2024 11:12 AM Narrative 08/30/2024 11:12 AM BRANCH EXAMINER PROCEDURE: ??XR ANKLE LEFT 3VW OR MORE [...] Carmona MD DIAGNOSTIC IMAGING O RDERABLES * CT Head Wo Contrast (08/29/2024 10:56 AM BRANCH EXAMINER) Anatomical Region Laterality Modality Head Computed Tomogra phy 08/29/2024 11:2 3 AM BRANCH EXAMINER Impressions 08/29/2024 12:11 PM BRANCH EXAMINER IMPRESSION: 1.Redemonstration of chronic appearing small subdural hematoma along the bilateral anterior convexities measuring up to 9 mm unchanged in size and density compared to prior study. Mild mass effect on the adjacent cerebral hemispheres however without significant midline shift. No new foci of hemorrhage. Report dictated by Faiza Pate MD I, Philomena Hopkins MD have personally reviewed and interpreted this examination/study. > Interpreting Provider: Philomena Hopkins MD on 08/29/2024 12:11 PM Narrative 08/29/2024 12:11 PM BRANCH EXAMINER PROCEDURE: ??CT HEAD WO CONTRAST, DATE/TIME OF EXAM: ??08/29/2024 10:56 AM, LOCATION ??[facility] INDICATION: S06.5XAA: SDH (subdural hematoma) (HCC) EXAMINATION: Computed tomography (CT) of the head without contrast ADDITIONAL CLINICAL INFORMATION: Ordering Provider Reason For Exam: ??seizure Technologist Note: Additional: CONTRAST: ?? TECHNIQUE: CT of the head was performed [...] clear. No soft tissue abnormality is identified. Procedure Note Philomena Hopkins MD - 08/29/2024 PROCEDURE: CT HEAD WO CONTRAST, DATE/TIME OF EXAM: 08/29/2024 10:56AM, LOCATION [facility] INDICATION: S06.5XAA: SDH (subdural hematoma) (HCC) EXAMINATION: Computed tomography (CT) of the head without contrast ADDITIONAL CLINICAL INFORMATION: Ordering Provider Reason For Exam: seizure Technologist Note: Additional: CONTRAST: TECHNIQUE: CT of the head was performed without contrast according to standard protocol. CT dose reduction technique was used, including Automated Exposure Control. COMPARISON: Head CT from 08/27/24 at 11:13 PM FINDINGS: Unchanged bilateral chronic appearing subdural collections measuring upto 9 mm along the bilateral anterior cerebral convexities again noted. No interval change in the size of density compared to prior study. Mildmass effect on the bilateral anterior temporal poles, frontoparietal regions again noted.. The ventricles are of normal size, shape, and morphology.The basilar cisterns are patent. No mass effect or midline shift is seen.The pantoja-white matter differentiation is normal. Periventricular whitematter hypoattenuation is indicative of chronic small vessel [...] measuring up to 9 mm unchanged in sizeand density compared to prior study. Mild mass effect on the adjacentcerebral hemispheres however without significant midline shift. No new foci of hemorrhage. Report dictated by Faiza Pate MD I, Philomena Hopkins MD have personally reviewed and interpreted this examination/study. > Interpreting Provider: Philomena Hopkins MD on 08/29/2024 12:11 PM Lnicoln Rocha MD CT ORDERABLES * (ABNORMAL) PHOSPHORUS BLOOD (08/29/2024 4:48 AM BRANCH EXAMINER) Phosphorus 2.5(L) 2.8 - 5.1 mg/dL 08/29/2024 5:53 AM BRANCH EXAMINER [facility] Blood BLOOD SPECIMEN / Unknown Lab Venipuncture / Unknown 08/29/2024 4:48 AM BRANCH EXAMINER 08/29/2024 5:14 AM BRANCH EXAMINER [place] [facility] LAB - CHEMISTRY O RDERABLES Performing Organization Address City/[facility]/ZIP Co de Phone Number [address] [address], [facility] [phone] * MAGNESIUM BLOOD (08/29/2024 4:48 AM BRANCH EXAMINER) Magnesium 1.8 1.6 - 2.6 mg/dL 08/29/2024 5:53 AM BRANCH EXAMINER [facility] Blood BLOOD SPECIMEN / Unknown Lab Venipuncture / Unknown 08/29/2024 4:48 AM BRANCH EXAMINER 08/29/2024 5:14 AM BRANCH EXAMINER [place] [facility] LAB - CHEMISTRY O RDERABLES Performing Organization Address City/[facility]/ZIP Co de Phone Number [address] [address], [facility] [phone] * (ABNORMAL) BASIC METABOLIC PANEL (CALCIUM TOTAL) (08/29/2024 4:48 AM [facility]) BUN 22 7 - 26 mg/dL 08/29/2024 5:53 AM [facility] Creatinine 0.91 0.71 - 1.16 mg/dL 08/29/2024 5:53 AM [facility] Sodium 137 136 - 145 mmol/L 08/29/2024 5:53 AM [facility] Potassium 3.7 3.5 - 4.5 mmol/L 08/29/2024 5:53 AM [facility] Chloride 104 98 - 107 mmol/L 08/29/2024 5:53 AM [facility] CO2 24 22 - 29 mmol/L 08/29/2024 5:53 AM [facility] Glucose 83 70 - 99 mg/dL 08/29/2024 5:53 AM [facility] Calcium 8.6 8.4 - 10.2 mg/dL 08/29/2024 5:53 AM [facility] Anion Gap 9 6 - 16 08/29/2024 5:53 AM [facility] BUN/Creatinine Ratio 24(H) 7 - 23 08/29/2024 5:53 AM [facility] Osmolality Calculated 286 275 - 295 mOsm/kg 08/29/2024 5:53 AM [facility] eGFR by CKD-EPI 81(L) >=90 mL/min/1.7 3 m2 08/29/2024 5:53 AM [facility] Blood BLOOD SPECIMEN / Unknown Lab Venipuncture / Unknown 08/29/2024 4:48 AM BRANCH EXAMINER 08/29/2024 5:14 AM [facility] Georgia Dexter AUTO BODY MECHANIC APPRENTICE-HEAT SEALING MACHINE OPERATOR LAB - CHEMISTRY O RDERABLES [address] [address], [facility] [phone] * (ABNORMAL) CBC W/O DIFFERENTIAL (08/29/2024 4:48 AM BRANCH EXAMINER) Pathologist [facility] WBC 9.7 4.0 - 10.7 x10E9/L 08/29/2024 5:18 AM [facility] RBC Count 3.60(L) 4.30 - 5.80 x10E12/L 08/29/2024 5:18 AM [facility] Hemoglobin 11.1(L) 13.3 - 17.5 g/dL 08/29/2024 5:18 AM [facility] Hematocrit 33.4(L) 38.7 - 51.1 % 08/29/2024 5:18 AM [facility] MCV 92.8 80.0 - 98.0 fL 08/29/2024 5:18 AM [facility] MCH 30.8 26.7 - 33.6 pg 08/29/2024 5:18 AM [facility] MCHC 33.2 31.7 - 36.3 g/dL 08/29/2024 5:18 AM [facility] RDW-CV 12.9 11.3 - 14.8 % 08/29/2024 5:18 AM [facility] Platelet Count 191 150 - 420 x10E9/L 08/29/2024 5:18 AM [facility] MPV 10.3 7.8 - 11.4 fL 08/29/2024 5:18 AM [facility] Blood BLOOD SPECIMEN / Unknown Lab Venipuncture / Unknown 08/29/2024 4:48 AM BRANCH EXAMINER 08/29/2024 5:14 AM BRANCH EXAMINER Georgia Dexter AUTO BODY MECHANIC APPRENTICE-HEAT SEALING MACHINE OPERATOR LAB - HEMATOLOGY ORDERABLES Performing Organization Address [facility] Co de Phone Number [address] [id number] [phone] * (ABNORMAL) URINALYSIS REFLEX TO MICROSCOPIC NO CULTURE (08/28/2024 8:52 PM BRANCH EXAMINER) Color UA Yellow Straw, Yellow 08/28/2024 9:35 PM [facility] Clarity UA Clear Clear 08/28/2024 9:35 PM [facility] Specific [place] UA 1.035(H) 1.005 - 1.030 08/28/2024 9:35 PM [facility] pH UA 5.0 5.0 - 8.0 pH 08/28/2024 9:35 PM [facility] Protein UA Negative Negative 08/28/2024 9:35 PM [facility] Glucose UA Negative Negative 08/28/2024 9:35 PM [facility] Ketone UA 1+(A) Negative 08/28/2024 9:35 PM [facility] Bilirubin UA Negative Negative 08/28/2024 9:35 PM [facility] Blood UA Negative Negative 08/28/2024 9:35 PM [facility] Nitrite UA Negative Negative 08/28/2024 9:35 PM [facility] Leukocyte Esterase Negative Negative 08/28/2024 9:35 PM [facility] Urobilinogen UA 2.0(A) Negative mg/dL 08/28/2024 9:35 PM [facility] RBC UA 0-2 None Seen, 0-2, 3-5 /HPF 08/28/2024 9:35 PM [facility] WBC UA 0-5 None Seen, 0-5 /HPF 08/28/2024 9:35 PM [facility] Squamous Epithelial Cells UA None Seen None Seen, 0-2, 3-5 /HPF 08/28/2024 9:35 PM [facility] Mucus UA 1+ /LPF 08/28/2024 9:35 PM [facility] Urine URINE SPECIMEN OBTAINED BY CLEAN CATCH PROCEDURE / Unknown Collection / Unknown 08/28/2024 8:52 PM BRANCH EXAMINER 08/28/2024 9:24 PM [facility] - 08/28/2024 9:35 PM BRANCH EXAMINER Lincoln Rocha MD LAB - URINALYSIS OR DERABLES [address] [address], [facility] [phone] * (ABNORMAL) URINE DRUG SCREEN IMMUNOASSAY (08/28/2024 8:52 PM BRANCH EXAMINER) Pathologist [facility] Amphetamines Screen Urine Negative Negative : < 1000 ng/mL 08/28/2024 9:45 PM [facility] Barbiturates Screen Urine Negative Negative : < 200 ng/mL 08/28/2024 9:45 PM [facility] Benzodiazepine Screen Urine Negative Negative : < 200 ng/mL 08/28/2024 9:45 PM [facility] Opiates Urine Negative Negative : < 300 ng/mL 08/28/2024 9:45 PM [facility] Cocaine Metabolites Urine Negative Negative : < 300 ng/mL 08/28/2024 9:45 PM [facility] Phencyclidine Screen Urine Negative Negative : < 25 ng/ml 08/28/2024 9:45 PM [facility] Cannabinoids Screen Urine Positive(A) Negative : <50 ng/mL 08/28/2024 9:45 PM [facility] Comment:Positive urine canna binoids (THC) screening results should be confirmed by another generally accepted non-immunological method such as gas chromatography or mass spectrometry. Methadone Screen Urine Negative Negative : < 300 ng/mL 08/28/2024 9:45 PM [facility] Fentanyl Screen Urine Negative Negative : <1.5 ng/mL 08/28/2024 9:45 PM [facility] Urine URINE / Unknown Collection / Unknown 08/28/2024 8:52 PM [facility] 08/28/2024 9:24 PM [facility] - 08/28/2024 9:45 PM [facility] The Urine Toxicology Screening Panel does not screen for Propoxyphene, Meprobamate, Carisoprodol, Trazodone, moed-bgt-gycoznu medications and/or volatiles (Acetone, Isopropanol, Methanol or Ethylene Glycol). Ethanol, Salicylate, Acetaminophen, Tricyclic Antidepressants and several therapeutic drugs may be individually assayed in serum or plasma specimen. Toxicology testing by the [facility] is an aid to medical diagnosis and treatment of patients. No documented chain of custody was maintained. Results are intended to be used for clinical purposes only. ? Lincoln Rocha MD LAB - URINE NEEDLE PROCESS FELT GOODS SUPERVISOR RY ORDERABLES Performing Organization Address [facility] Co de Phone Number [facility] [address] [place] [address], [facility] [phone] * BLOOD TYPE VERIFICATION (08/28/2024 8:23 PM BRANCH EXAMINER) ABO Rh B POS 08/28/2024 9:1 4 PM BRANCH EXAMINER [facility] Blood Bank BLOOD SPECIMEN / Unknown Lab Venipuncture / Unknown 08/28/2024 8:23 PM BRANCH EXAMINER 08/28/2024 8:42 PM BRANCH EXAMINER Lincoln Rocha MD LAB - BLOOD BANK OR DERABLES Performing Organization Address [facility] Co de Phone Number [facility] [address] [place] [address], [facility] [phone] * SARS-COV-2 (COVID-19) RAPID (08/28/2024 11:05 AM BRANCH EXAMINER) COVID-19 PCR Not detected Not detected 08/28/20 11:49 AM BRANCH EXAMINER [facility] Microbiology SPECIMEN FROM NASOPHARYNGEAL STRUCTURE / Unknown Collection / Unknown 08/28/2024 11:05 AM BRANCH EXAMINER 08/28/2024 11:12 AM BRANCH EXAMINER Narrative [facility] - 08/28/2024 11:49 AM BRANCH EXAMINER The Cepheid Xpert Xpress SARS-COV-2 has been [...] Galvez MD LAB - MICROBIOLOGY O RDERABLES [facility] [address] [place] [address], [facility] [phone] * XR Elbow Left 3Vw or More (08/27/2024 11:41 PM BRANCH EXAMINER) Anatomical Region Laterality Modality Upper Extremity Digital Radiogra phy 08/28/2024 1:17 AM BRANCH EXAMINER Impressions 08/28/2024 9:13 AM BRANCH EXAMINER IMPRESSION: No acute fracture or dislocation identified. Report dictated by Dante Mcclain MD, (residential plumber). ISho MD have personally reviewed and interpreted this examination/study. > Interpreting Provider: Sho Minaya MD on 08/28/2024 9:13 AM Narrative 08/28/2024 9:13 AM BRANCH EXAMINER PROCEDURE: ??XR ELBOW LEFT 3VW OR MORE, DATE/TIME OF EXAM: ??08/27/2024 11:41 PM, LOCATION ??[facility] INDICATION: T14.90XA: Trauma ADDITIONAL [...] LEFT 3VW OR MORE, DATE/TIME OF EXAM: 11/26/166684:41 PM, LOCATION [facility] INDICATION: T14.90XA: Trauma ADDITIONAL [...] Report dictated by Dante Mcclain MD, (residential plumber). Sho Macedo MD have personally reviewed and interpreted this examination/study. > Interpreting Provider: Sho Minaya MD on 08/28/2024 9:13 AM Lincoln Rocha MD DIAGNOSTIC IMAGING ORDERABLES * XR Ankle Left 3Vw or More (08/27/2024 11:41 PM BRANCH EXAMINER) Anatomical Region Laterality Modality Lower Extremity Digital Radiogra phy 08/28/2024 1:16 AM BRANCH EXAMINER Impressions 08/28/2024 9:12 AM BRANCH EXAMINER IMPRESSION: No acute fracture or dislocation identified. Report dictated by Dante Mcclain MD, (residential plumber). Sho Macedo MD have personally reviewed and interpreted this examination/study. > Interpreting Provider: Sho Minaya MD on 08/28/2024 9:12 AM Narrative 08/28/2024 9:12 AM BRANCH EXAMINER PROCEDURE: ??XR ANKLE LEFT 3VW OR MORE, DATE/TIME OF EXAM: ??08/27/2024 11:41 PM, LOCATION ??[facility] INDICATION: T14.90XA: Trauma ADDITIONAL CLINICAL INFORMATION: Ordering Provider Reason For Exam: Technologist Note: Additional: COMPARISON: None. FINDINGS: The osseous structures are intact and well aligned without acute fracture or dislocation. The ankle mortise is intact. Bone density and texture are normal. No soft tissue swelling is present. Procedure Note Sho Minaya MD - 08/28/2024 PROCEDURE: XR ANKLE LEFT 3VW OR MORE, DATE/TIME OF EXAM: 1:41 PM, LOCATION [facility] INDICATION: T14.90XA: Trauma ADDITIONAL CLINICAL INFORMATION: Ordering Provider Reason For Exam: Technologist Note: Additional: COMPARISON: None. FINDINGS: The osseous structures are intact and well aligned without acutefracture or dislocation. The ankle mortise is intact. Bone density and textureare normal. No soft tissue swelling is present. IMPRESSION: No acute fracture or dislocation identified. Report dictated by Dante Mcclain MD, (residential plumber). Sho Macedo MD have personally reviewed and interpreted this examination/study. > Interpreting Provider: Sho Minaya MD on 08/28/2024 9:12 AM Lincoln Rocha MD DIAGNOSTIC IMAGING ORDERABLES * CT LUMBAR SPINE WO CONTRAST - T/L-spine trauma, Spine fracture (08/27/2024 11:34 PM BRANCH EXAMINER) Anatomical Region Laterality Modality Spine Computed Tomogra phy 08/27/2024 11:4 7 PM BRANCH EXAMINER Impressions 08/28/2024 6:41 AM BRANCH EXAMINER IMPRESSION: Significant motion artifact limits evaluation for [...] report is dictated by Dante Mcclain MD (residential plumber) Kalyani Macedo MD have personally reviewed and interpreted this examination/study. > Interpreting Provider: Kalyani Cortez MD on 08/28/2024 6:41 AM Narrative 08/28/2024 6:41 AM BRANCH EXAMINER PROCEDURE: ??CT HEAD WO CONTRAST, CT LUMBAR SPINE WO CONTRAST, CT THORACIC SPINE WO CONTRAST, CT CERVICAL SPINE WO CONTRAST, CT FACIAL BONES WO CONTRAST, DATE/TIME OF EXAM: ??08/27/2024 11:36 PM, LOCATION ??[facility] INDICATION: Trauma ADDITIONAL CLINICAL [...] DATE/TIME OF EXAM: 08/27/2024 11:36 PM, LOCATION [facility] INDICATION: Trauma ADDITIONAL CLINICAL [...] report is dictated by Dante Mcclain MD (residential plumber) Kalyani Macedo MD have personally reviewed and interpretedthis examination/study. > Interpreting Provider: Kalyani Cortez MD on 08/28/2024 6:41 AM Lincoln Rocha MD CT ORDERABLES * CT THORACIC SPINE WO CONTRAST - T/L-spine trauma, spine fracture (08/27/2024 11:34 PM BRANCH EXAMINER) Anatomical Region Laterality Modality Spine Computed Tomogra phy 08/27/2024 11:4 7 PM BRANCH EXAMINER Impressions 08/28/2024 6:41 AM BRANCH EXAMINER IMPRESSION: Significant motion artifact limits evaluation for [...] report is dictated by Dante Mcclain MD (residential plumber) Kalyani Macedo MD have personally reviewed and interpreted this examination/study. > Interpreting Provider: Kalyani Cortez MD on 08/28/2024 6:41 AM Narrative 08/28/2024 6:41 AM BRANCH EXAMINER PROCEDURE: ??CT HEAD WO CONTRAST, CT LUMBAR SPINE WO CONTRAST, CT THORACIC SPINE WO CONTRAST, CT CERVICAL SPINE WO CONTRAST, CT FACIAL BONES WO CONTRAST, DATE/TIME OF EXAM: ??08/27/2024 11:36 PM, LOCATION ??[facility] INDICATION: Trauma ADDITIONAL CLINICAL [...] DATE/TIME OF EXAM: 08/27/2024 11:36 PM, LOCATION [facility] INDICATION: Trauma ADDITIONAL CLINICAL [...] report is dictated by Dante Mcclain MD (residential plumber) I, Kalyani Cortez MD have personally reviewed and interpretedthis examination/study. > Interpreting Provider: Kalyani Cortez MD on 08/28/2024 6:41 AM Lincoln Rocha MD CT ORDERABLES * CT CHEST ABDOMEN PELVIS W CONT - Abdomen-pelvis trauma, blunt or penetrating (08/27/2024 11:34 PM BRANCH EXAMINER) Anatomical Region Laterality Modality Chest, Abdomen, Pelvis Computed Tomography 08/27/2024 11:2 6 PM BRANCH EXAMINER Impressions 08/28/2024 8:02 AM BRANCH EXAMINER Impression: Mild limitations to the exam secondary [...] pelvis. > Dictated by Dorian Cuevas MD (residential plumber). I, Tyree Tyler have personally reviewed and interpreted this examination/study. > Interpreting Provider: Tyree Tyler on 08/28/2024 8:02 AM Narrative 08/28/2024 8:02 AM BRANCH EXAMINER PROCEDURE: ??CT CHEST ABDOMEN PELVIS W CONT, DATE/TIME OF EXAM: ??08/27/2024 11:36 PM, LOCATION ??[facility] INDICATION: Trauma ADDITIONAL CLINICAL [...] CONT, DATE/TIME OF EXAM:08/27/2024 11:36 PM, LOCATION [facility] INDICATION: Trauma ADDITIONAL CLINICAL [...] pelvis. > Dictated by Dorian Cuevas MD (residential plumber). I, Tyree Tyler have personally reviewed and interpreted this examination/study. > Interpreting Provider: Tyree Tyler on 08/28/2024 8:02 AM Lincoln Rocha MD CT ORDERABLES * CT CERVICAL SPINE WO CONTRAST - C-Spine Trauma, Spine fracture (08/27/2024 11:34 PM BRANCH EXAMINER) Anatomical Region Laterality Modality Spine Computed Tomogra phy 08/27/2024 11:4 7 PM BRANCH EXAMINER Impressions 08/28/2024 6:41 AM BRANCH EXAMINER IMPRESSION: Significant motion artifact limits evaluation for [...] report is dictated by Dante Mcclain MD (residential plumber) Kalyani Macedo MD have personally reviewed and interpreted this examination/study. > Interpreting Provider: Kalyani Cortez MD on 08/28/2024 6:41 AM Narrative 08/28/2024 6:41 AM BRANCH EXAMINER PROCEDURE: ??CT HEAD WO CONTRAST, CT LUMBAR SPINE WO CONTRAST, CT THORACIC SPINE WO CONTRAST, CT CERVICAL SPINE WO CONTRAST, CT FACIAL BONES WO CONTRAST, DATE/TIME OF EXAM: ??08/27/2024 11:36 PM, LOCATION ??[facility] INDICATION: Trauma ADDITIONAL CLINICAL [...] DATE/TIME OF EXAM: 08/27/2024 11:36 PM, LOCATION [facility] INDICATION: Trauma ADDITIONAL CLINICAL [...] report is dictated by Dante Mcclain MD (residential plumber) I, Kalyani Cortez MD have personally reviewed and interpretedthis examination/study. > Interpreting Provider: Kalyani Cortez MD on 08/28/2024 6:41 AM Lincoln Rocha MD CT ORDERABLES * CT FACIAL BONES WO CONTRAST - Facial trauma, fx suspected, blunt (08/27/2024 11:34 PM BRANCH EXAMINER) Anatomical Region Laterality Modality Head Computed Tomogra phy 08/27/2024 11:4 7 PM BRANCH EXAMINER Impressions 08/28/2024 6:41 AM BRANCH EXAMINER IMPRESSION: Significant motion artifact limits evaluation for [...] report is dictated by Dante Mcclain MD (residential plumber) I, Kalyani Cortez MD have personally reviewed and interpreted this examination/study. > Interpreting Provider: Kalyani Cortez MD on 08/28/2024 6:41 AM Narrative 08/28/2024 6:41 AM BRANCH EXAMINER PROCEDURE: ??CT HEAD WO CONTRAST, CT LUMBAR SPINE WO CONTRAST, CT THORACIC SPINE WO CONTRAST, CT CERVICAL SPINE WO CONTRAST, CT FACIAL BONES WO CONTRAST, DATE/TIME OF EXAM: ??08/27/2024 11:36 PM, LOCATION ??[facility] INDICATION: Trauma ADDITIONAL CLINICAL [...] DATE/TIME OF EXAM: 08/27/2024 11:36 PM, LOCATION [facility] INDICATION: Trauma ADDITIONAL CLINICAL [...] report is dictated by Dante Mcclain MD (residential plumber) Kalyani Macedo MD have personally reviewed and interpretedthis examination/study. > Interpreting Provider: Kalyani Cortez MD on 08/28/2024 6:41 AM Lincoln Rocha MD CT ORDERABLES * CT HEAD WO CONTRAST - Head Trauma, CSF leak, mental status changes (08/27/2024 11:34 PM BRANCH EXAMINER) Anatomical Region Laterality Modality Head Computed Tomogra phy 08/27/2024 11:4 7 PM BRANCH EXAMINER Impressions 08/28/2024 6:41 AM BRANCH EXAMINER IMPRESSION: Significant motion artifact limits evaluation for [...] report is dictated by Dante Mcclain MD (residential plumber) Kalyani Macedo MD have personally reviewed and interpreted this examination/study. > Interpreting Provider: Kalyani Cortez MD on 08/28/2024 6:41 AM Narrative 08/28/2024 6:41 AM BRANCH EXAMINER PROCEDURE: ??CT HEAD WO CONTRAST, CT LUMBAR SPINE WO CONTRAST, CT THORACIC SPINE WO CONTRAST, CT CERVICAL SPINE WO CONTRAST, CT FACIAL BONES WO CONTRAST, DATE/TIME OF EXAM: ??08/27/2024 11:36 PM, LOCATION ??[facility] INDICATION: Trauma ADDITIONAL CLINICAL [...] DATE/TIME OF EXAM: 08/27/2024 11:36 PM, LOCATION [facility] INDICATION: Trauma ADDITIONAL CLINICAL [...] report is dictated by Dante Mcclain MD (residential plumber) Kalyani Macedo MD have personally reviewed and interpretedthis examination/study. > Interpreting Provider: Kalyani Cortez MD on 08/28/2024 6:41 AM Lincoln Rocha MD CT ORDERABLES * XR CHEST 1VW PORTABLE (08/27/2024 11:33 PM BRANCH EXAMINER) Anatomical Region Laterality Modality Chest Digital Radiogra phy 08/28/2024 1:06 AM BRANCH EXAMINER Narrative 08/28/2024 9:15 AM BRANCH EXAMINER PROCEDURE: ??XR CHEST 1VW PORTABLE, DATE/TIME OF EXAM: ??08/27/2024 11:33 PM, LOCATION ??[facility] INDICATION: Trauma ADDITIONAL CLINICAL INFORMATION: Ordering Provider Reason For Exam: Technologist Note: Additional: COMPARISON: None. TECHNIQUE: Frontal radiograph of the chest. FINDINGS/IMPRESSION: There is no focal consolidation, pleural effusion, or pneumothorax. The cardiac silhouette is normal. There is atherosclerotic calcification of the aorta. The visible bony thorax is intact. Suture anchors are in the right humeral head. Report dictated by Dante Mcclain MD, (residential plumber). Sho Macedo MD have personally reviewed and interpreted this examination/study. > Interpreting Provider: Sho Minaya MD on 08/28/2024 9:15 AM Procedure Note Sho Minaya MD - 08/28/2024 PROCEDURE: XR CHEST 1VW PORTABLE, DATE/TIME OF EXAM: 08/27/2024 11:33PM, LOCATION [facility] INDICATION: Trauma ADDITIONAL CLINICAL INFORMATION: Ordering Provider Reason For Exam: Technologist Note: Additional: COMPARISON: None. TECHNIQUE: Frontal radiograph of the chest. FINDINGS/IMPRESSION: There is no focal consolidation, pleural effusion, or pneumothorax. The cardiac silhouette is normal. There is atherosclerotic calcification ofthe aorta. The visible bony thorax is intact. Suture anchors are in theright humeral head. Report dictated by Dante Mcclain MD, (residential plumber). Sho Macedo MD have personally reviewed and interpreted this examination/study. > Interpreting Provider: Sho Minaya MD on 08/28/2024 9:15 AM Lincoln Rocha MD DIAGNOSTIC IMAGING ORDERABLES * XR PELVIS 1 OR 2VW (08/27/2024 11:33 PM BRANCH EXAMINER) Anatomical Region Laterality Modality Pelvis Digital Radiogra phy 08/28/2024 1:07 AM BRANCH EXAMINER Impressions 08/28/2024 9:15 AM BRANCH EXAMINER IMPRESSION: No acute fracture identified. Report dictated by Dante Mcclain MD, MD (residential plumber). Sho Macedo MD have personally reviewed and interpreted this examination/study. > Interpreting Provider: Sho Minaya MD on 08/28/2024 9:15 AM Narrative 08/28/2024 9:15 AM BRANCH EXAMINER PROCEDURE: ??XR PELVIS 1 OR 2VW, DATE/TIME OF EXAM: ??08/27/2024 11:34 PM, LOCATION ??[facility] INDICATION: Trauma Fracture suspected [...] DATE/TIME OF EXAM: 08/27/2024 11:34 PM, LOCATION [facility] INDICATION: Trauma Fracture suspected [...] dictated by Dante Mcclain MD, MD (residential plumber). I, Sho Minaya MD have personally reviewed and interpreted this examination/study. > Interpreting Provider: Sho Minaya MD on 08/28/2024 9:15 AM Lincoln Rocha MD DIAGNOSTIC IMAGING ORDERABLES * TYPE + SCREEN PANEL (08/27/2024 11:05 PM BRANCH EXAMINER) [facility] Antibody Screen NEG 12:16 AM [facility] ABO Rh B POS 08/28/2024 12:16 AM [facility] Blood Bank BLOOD SPECIMEN / Unknown Venipuncture / Unknown 08/27/2024 11:05 PM BRANCH EXAMINER 08/27/2024 11:15 PM BRANCH EXAMINER Lincoln Rocha MD LAB - BLOOD BANK OR DERABLES Performing Organization Address [facility]/State/ZIP Co de Phone Number [facility] [address] [place] [address], [facility] [phone] * (ABNORMAL) TEG 6S PLATELET MAPPING (08/27/2024 11:05 PM BRANCH EXAMINER) [facility] TEGPLM (Max Amplitude) [place] 64.7 53.0 - 68.0 mm 08/28/2024 12:35 AM [facility] TEGPLM (Max Amplitude) ACTF 15.1 2.0 - 19.0 mm 08/28/2024 12:35 AM [facility] TEGPLM (Max Amplitude) ADP 49.4 45.0 - 69.0 mm 08/28/2024 12:35 AM [facility] TEGPLM (Max Amplitude) AA 18.3(L) 51.0 - 71.0 mm 08/28/2024 12:35 AM [facility] Comment:AA MA below normal r abdi. Inhibition present. TEGPLM %Inhibition ADP 30.8(H) 0.0 - 17.0 % 08/28/2024 12:35 AM [facility] %Inhibition AA 93.5(H) 0.0 - 11.0 % 08/28/2024 12:35 AM [facility] %Aggregation ADP 69.2(L) 83.0 - 100.0 % 08/28/2024 12:35 AM [facility] % Aggregation AA 6.5(L) 89.0 - 100.0 % 08/28/2024 12:35 AM [facility] Blood BLOOD SPECIMEN / Unknown Venipuncture / Unknown 08/27/2024 11:05 PM BRANCH EXAMINER 08/27/2024 11:17 PM BRANCH EXAMINER Lincoln Rocha MD LAB - HEMATOLOGY OR DERABLES Performing Organization Address [facility]/ZIP Co de Phone Number [facility] [address] [place] [phone], [facility] [phone] * (ABNORMAL) TEG 6 GLOBAL HEMOSTASIS W/ LYSIS (08/27/2024 11:05 PM BRANCH EXAMINER) Citrated Kaolin R (Reaction Time) 4.5(L) 4.6 - 9.1 min 08/28/2024 12:56 AM [facility] Comment:CK R result below no rmal range. Consistent with hypercoagulable clotting factors. Citrated Kaolin LY30 (Lysis) 0.2 0.0 - 2.6 % 08/28/2024 12:56 AM [facility] Citrated Functional Fibrinogen MA (Max Amplitude) 20.3 15.0 - 32.0 mm 08/28/2024 12:56 AM [facility] Citrated RapidTEG MA (Max Amplitude) 61.3 52.0 - 70.0 mm 08/28/2024 12:56 AM [facility] Blood BLOOD SPECIMEN / Unknown Venipuncture / Unknown 08/27/2024 11:05 PM BRANCH EXAMINER 08/27/2024 11:17 PM BRANCH EXAMINER Lincoln Rocha MD LAB - HEMATOLOGY OR DERABLES [address] [address], [facility] [phone] * PTT [facility] (08/27/2024 11:05 PM BRANCH EXAMINER) [facility] APTT 29.3 23.0 - 38.4 Seconds 08/27/2024 11:36 PM [facility] Comment:Suggested therapeuti c range for full dose I.V. unfractionated heparin therapy for venous thromboembolism is 71 to 109 seconds. Blood BLOOD SPECIMEN / Unknown Venipuncture / Unknown 08/27/2024 11:05 PM BRANCH EXAMINER 08/27/2024 11:14 PM BRANCH EXAMINER Lincoln Rocha MD LAB - COAGULATION O LISA Performing Organization Address [facility] Co de Phone Number [address] [address], [facility] [phone] * PT-INR [facility] (08/27/2024 11:05 PM BRANCH EXAMINER) [facility] PT 14.1 12.1 - 14.8 Seconds 08/27/2024 11:36 PM BRANCH EXAMINER [facility] INR 1.1 See Comment 08/27/2024 11:36 PM BRANCH EXAMINER [facility] Comment:The suggested therap eutic range for standard coumadin (warfarin) therapy is an INR of 2.0-3.0. For high-risk patients (Mechanical Mitral Valve Prosthesis, etc.), the suggested prophylactic therapeutic range is an INR of 2.5-3.5. Blood BLOOD SPECIMEN / Unknown Venipuncture / Unknown 08/27/2024 11:05 PM BRANCH EXAMINER 08/27/2024 11:14 PM BRANCH EXAMINER Lincoln Rocha MD LAB - COAGULATION O LISA Performing Organization Address [facility]/ZIP Co de Phone Number [address] [address], [place] [phone] * (ABNORMAL) CK BLOOD (08/27/2024 11:05 PM BRANCH EXAMINER) CK Total 417(H) 30 - 200 U/L 08/27/2024 11:39 PM [facility] Blood BLOOD SPECIMEN / Unknown Venipuncture / Unknown 08/27/2024 11:05 PM BRANCH EXAMINER 08/27/2024 11:14 PM BRANCH EXAMINER Lincoln Rocha MD LAB - CHEMISTRY ORD ERABLES [facility] [address] [place] [address], [facility] [phone] * (ABNORMAL) CBC W AUTO DIFFERENTIAL (08/27/2024 11:05 PM BRANCH EXAMINER) WBC 10.7 4.0 - 10.7 x10E9/L 08/27/2024 11:20 PM [facility] RBC Count 3.47(L) 4.30 - 5.80 x10E12/L 08/27/2024 11:20 PM [facility] Hemoglobin 10.9(L) 13.3 - 17.5 g/dL 08/27/2024 11:20 PM [facility] Hematocrit 31.9(L) 38.7 - 51.1 % 08/27/2024 11:20 PM [facility] MCV 91.9 80.0 - 98.0 fL 08/27/2024 11:20 PM [facility] MCH 31.4 26.7 - 33.6 pg 08/27/2024 11:20 PM [facility] MCHC 34.2 31.7 - 36.3 g/dL 08/27/2024 11:20 PM [facility] RDW-CV 13.1 11.3 - 14.8 % 08/27/2024 11:20 PM [facility] Platelet Count 203 150 - 420 x10E9/L 08/27/2024 11:20 PM [facility] MPV 9.8 7.8 - 11.4 fL 08/27/2024 11:20 PM [facility] Neutrophil % 75.1(H) 41.0 - 74.0 % 08/27/2024 11:20 PM [facility] Lymphocyte % 15.2(L) 17.0 - 47.0 % 08/27/2024 11:20 PM [facility] Monocyte % 8.0 3.0 - 11.0 % 08/27/2024 11:20 PM [facility] Eosinophil % 0.7 0.0 - 7.0 % 08/27/2024 11:20 PM [facility] Basophil % 0.5 0.0 - 1.6 % 08/27/2024 11:20 PM [facility] Immature Granulocytes % 0.5 0.0 - 1.0 % 08/27/2024 11:20 PM [facility] Neutrophil Absolute 8.03(H) 1.60 - 7.50 x10E9/L 08/27/2024 11:20 PM [facility] Lymphocyte Absolute 1.62 1.00 - 4.40 x10E9/L 08/27/2024 11:20 PM [facility] Monocyte Absolute 0.86 0.15 - 1.00 x10E9/L 08/27/2024 11:20 PM [facility] Eosinophil Absolute 0.08 0.00 - 0.60 x10E9/L 08/27/2024 11:20 PM [facility] Basophil Absolute 0.05 0.00 - 0.13 x10E9/L 08/27/2024 11:20 PM [facility] Blood BLOOD SPECIMEN / Unknown Venipuncture / Unknown 08/27/2024 11:05 PM BRANCH EXAMINER 08/27/2024 11:14 PM [facility] Lincoln Rocha MD LAB - HEMATOLOGY OR DERABLES [facility] [address] [place] [phone], [facility] [phone] * (ABNORMAL) BASIC METABOLIC PANEL (CALCIUM TOTAL) (08/27/2024 11:05 PM [facility]) BUN 25 7 - 26 mg/dL 08/27/2024 11:39 PM [facility] Creatinine 1.07 0.71 - 1.16 mg/dL 08/27/2024 11:39 PM [facility] Sodium 136 136 - 145 mmol/L 08/27/2024 11:39 PM [facility] Potassium 4.5 3.5 - 4.5 mmol/L 08/27/2024 11:39 PM [facility] Chloride 107 98 - 107 mmol/L 08/27/2024 11:39 PM [facility] CO2 23 22 - 29 mmol/L 08/27/2024 11:39 PM [facility] Glucose 97 70 - 99 mg/dL 08/27/2024 11:39 PM [facility] Calcium 8.6 8.4 - 10.2 mg/dL 08/27/2024 11:39 PM [facility] Anion Gap 6 6 - 16 08/27/2024 11:39 PM [facility] BUN/Creatinine Ratio 23 7 - 23 08/27/2024 11:39 PM [facility] Osmolality Calculated 286 275 - 295 mOsm/kg 08/27/2024 11:39 PM [facility] eGFR by CKD-EPI 67(L) >=90 mL/min/1.7 3 m2 08/27/2024 11:39 PM [facility] Blood BLOOD SPECIMEN / Unknown Venipuncture / Unknown 08/27/2024 11:05 PM [facility] 08/27/2024 11:14 PM [facility] Lincoln Rocha MD LAB - CHEMISTRY ORD ERABLES [facility] [address] [place] [phone], [facility] [phone] * ALCOHOL ETHYL BLOOD (08/27/2024 11:05 PM [facility]) Ethanol (mg/dL) <10 <10 mg/dL 11:39 PM [facility] Ethanol Calculated (g/dL) <0.010 <=0.010 g/dL 08/27/2024 11:39 PM [facility] Blood BLOOD SPECIMEN / Unknown Venipuncture / Unknown 08/27/2024 11:05 PM BRANCH EXAMINER 08/27/2024 11:14 PM [facility] Narrative [facility] - 08/27/2024 11:39 PM BRANCH EXAMINER Ethanol Interp <10: None Detected. Depression of [employer]: >100 mg/dl Potentially Critical: >250 mg/dl Potentially [...] Rocha MD LAB - CHEMISTRY ORD ERABLES [facility] [address] [place] [address], [facility] [phone] documented in this encounter Visit Diagnoses Diagnosis Trauma Injury, other and unspecified, unspecified site Fall, subsequent encounter Closed fracture of one rib of right side, initial encounter Contusion of right lung, initial encounter SDH (subdural hematoma) (HCC) Subdural hemorrhage Fall, initial encounter Altered mental status, unspecified altered mental status type Severe dementia with agitation, unspecified dementia type (HCC) Delirium Other alteration of consciousness Severe protein-calorie malnutrition (HCC) Other severe protein-calorie malnutrition Impaired mobility and ADLs Mechanical problems with limbs Observed seizure-like activity (HCC) Other convulsions Orthostatic hypotension Trauma Injury, other and unspecified, unspecified site Impaired mobility and ADLs Mechanical problems with limbs Altered mental status Fall, subsequent encounter SDH (subdural hematoma) (HCC) Subdural hemorrhage Contusion of right lung, initial encounter Closed fracture of one rib of right side, initial encounter Dementia (HCC) Dementia, unspecified, without behavioral disturbance Delirium Other alteration of consciousness Observed seizure-like activity (HCC) Other convulsions Severe protein-calorie malnutrition (HCC) Other severe protein-calorie malnutrition Orthostatic hypotension documented in this encounter Administered Medications Inactive Administered Medications - up to 3 most recent administrations Medication Order MAR Action Action Date Dose Rate Site 0.9% NaCl injection 1-10 mL 1-10 mL, Intracatheter, PRN, Other, peripheral line flush, Starting on Mon08/27/24 at 2258, Until Mon09/06/24 at 1259, Flush peripheral IV catheter with 1-10 mL of normal saline before and after medications and prn to clear blood from the line or to verify patency. 0.9% NaCl injection 3 mL 3 mL, Intracatheter, EVERY 8 HOURS, First dose on Mon08/27/24 at 2330, Until Discontinued, Flush peripheral IV catheter with 3 mL of normal saline every 8 hours. $ Given 09/03/2024 6:42 AM BRANCH EXAMINER 3 mL $ Given 09/02/2024 9:20 PM BRANCH EXAMINER 3 mL $ Given 09/02/2024 3:05 PM BRANCH EXAMINER 3 mL acetaminophen (Tylenol) tablet 1,000 mg 1,000 mg, Oral, 3 TIMES DAILY, First dose (after last modification) on Mon08/28/24 at 2100, Until Discontinued, Patient preference for lesser PRN pain meds [...] patient cannot tolerate oral intake $ Given 09/06/2024 8:57 AM BRANCH EXAMINER 1,000 mg $ Given 09/05/2024 9:38 PM BRANCH EXAMINER 1,000 mg $ Given 09/05/2024 2:55 PM BRANCH EXAMINER 1,000 mg albuterol-ipratropium (Duo-Neb) nebulizer solution 3 mL 3 mL, Inhalation, EVERY 6 HOURS PRN, Shortness of Breath, Wheezing, Starting on Mon08/28/24 at 0720, Until Mon09/06/24 at 1259 bisacodyl (Dulcolax) suppository 10 mg 10 mg, Rectal, ONCE, 1 dose, On Mon09/03/24 at 0845 $ Given 09/03/2024 12:44 PM BRANCH EXAMINER 10 mg enoxaparin (Lovenox) injection 30 mg 30 mg, Subcutaneous, EVERY 12 HOURS, First dose on Mon08/28/24 at 1415, Until Discontinued, (for prefilled syringes) do not expel air bubble from the syringe prior to the injection Remind Patient to not rub injection site. Could cause hematoma. $ Given 09/05/2024 8:30 AM BRANCH EXAMINER 30 mg Abdominal Tissue $ Given 09/04/2024 8:32 PM BRANCH EXAMINER 30 mg Ab d Left Lower Quadrant $ Given 09/04/2024 7:34 AM BRANCH EXAMINER 30 mg Ab d Left Lower Quadrant enoxaparin (Lovenox) injection 40 mg 40 mg, Subcutaneous, DAILY, First dose on Mon09/06/24 at 0900, Until Discontinued, (for prefilled syringes) do not expel air bubble from the syringe prior to the injection Remind Patient to not rub injection site. Could cause hematoma. escitalopram (Lexapro) tablet 10 mg 10 mg, Oral, DAILY, First dose on Mon08/28/24 at 1415, Until Discontinued $ Given 09/06/2024 8:57 AM BRANCH EXAMINER 10 mg $ Given 09/05/2024 8:30 AM BRANCH EXAMINER 10 mg $ Given 09/04/2024 7:31 AM BRANCH EXAMINER 10 mg famotidine (Pepcid) injection 20 mg 20 mg, Intravenous, DAILY, First dose on Mon08/28/24 at 0900, Until Discontinued, Dilute with 0.9% NaCl, D5W solution, or SWI to a volume of 5 to 10 mL and administer over at least 2 minutes. $ Given 08/28/2024 9:26 AM BRANCH EXAMINER 20 mg famotidine (Pepcid) tablet 20 mg 20 mg, Oral, DAILY, First dose on Mon08/28/24 at 1415, Until Discontinued $ Given 08/31/2024 8:42 AM BRANCH EXAMINER 20 mg $ Given 08/30/2024 10:22 AM BRANCH EXAMINER 20 mg $ Given 08/29/2024 9:14 AM BRANCH EXAMINER 20 mg finasteride (Proscar) tablet 5 mg 5 mg, Oral, DAILY, First dose on Mon08/29/24 at 0900, Until Discontinued, Women who are or planning to become should not handle crushed or broken tablets $ Given 09/06/2024 8:57 AM BRANCH EXAMINER 5 mg $ Given 09/05/2024 8:30 AM BRANCH EXAMINER 5 mg $ Given 09/04/2024 7:31 AM BRANCH EXAMINER 5 mg gadobutrol (Gadavist) injection Intravenous, CONTRAST ONCE, Starting on Reyna 09/05/24 at 0933, Until Mon09/06/24 at 1259 $ Given - Contrast 09/05/2024 9:33 AM BRANCH EXAMINER 7 mL haloperidol lactate (Haldol) injection 2 mg 2 mg, Intramuscular, ONCE, 1 dose, On Mon08/30/24 at 1845 $ Given 08/30/2024 6:31 PM BRANCH EXAMINER 2 mg Left Arm iopamidol (Isovue 370) 76 % contrast Intravenous, CONTRAST ONCE, Starting on Mon08/27/24 at 2302, Until Mon08/28/24 at 0726 $ Given - Contrast 08/27/2024 11:30 PM BRANCH EXAMINER 100 mL lactated ringers infusion at 75 mL/hr, Intravenous, CONTINUOUS, Starting on Mon08/28/24 at 0430, Until Mon08/28/24 at 0727 $ New Bag/Syringe 08/28/2024 4:21 AM BRANCH EXAMINER 75 mL/hr lactated ringers IV bolus 1,000 mL, at 983.61 mL/hr, Administer over 61 Minutes, ONCE, 1 dose, On Mon09/01/24 at 1315 $ New Bag/Syringe 09/01/2024 1:28 PM BRANCH EXAMINER 1,000 mL 983.61 mL/hr levETIRAcetam (Keppra) tablet 2,000 mg 2,000 mg, Oral, Once, 1 dose, On Reyna 08/29/24 at 1530, Do not crush or chew because of TASTE only. $ Given 08/29/2024 5:29 PM BRANCH EXAMINER 2,000 mg levETIRAcetam (Keppra) tablet 500 mg 500 mg, Oral, 2 TIMES DAILY, First dose on Mon08/30/24 at 0900, Until Discontinued, Do not crush or chew because of TASTE only. $ Given 09/06/2024 8:57 AM BRANCH EXAMINER 500 mg $ Given 09/05/2024 9:38 PM BRANCH EXAMINER 500 mg $ Given 09/05/2024 8:30 AM BRANCH EXAMINER 500 mg lidocaine (Lidoderm) 5 % patch 1 patch 1 patch, Administer over 12 Hours, DAILY, First dose on Mon08/28/24 at 0900, Until Discontinued, Apply to site of pain over rib fx and remove patch after a max of 12 hours of application within a 24 hour period. $ Applied 09/05/2024 8:31 AM BRANCH EXAMINER 1 patch See C omments $ Applied 09/04/2024 7:30 AM BRANCH EXAMINER 1 patch Ba ck $ Applied 09/03/2024 8:09 AM BRANCH EXAMINER 1 patch Ba ck LORazepam (Ativan) injection 0.5 mg 0.5 mg, Intravenous, ONCE PRN, Agitation, 1 dose, Starting on Mon08/30/24 at 1830, Until Mon08/30/24 at 1839, If after 30 min first dose of Ativan not working $ Given 08/30/2024 6:39 PM BRANCH EXAMINER 0.5 mg LORazepam (Ativan) injection 1 mg 1 mg, Intravenous, ONCE PRN, Other, For MRI, 1 dose, Starting on 09/02/24 at 0107, Until 09/06/24 at 1259 melatonin tablet 3 mg 3 mg, Oral, AT BEDTIME PRN - MR X 1, Insomnia, Starting on 08/28/24 at 0350, Until 08/31/24 at 1520, may repeat x 1 after 30 minutes if no benefit of no sleep maintenance $ Given 08/29/2024 9:51 PM BRANCH EXAMINER 3 mg melatonin tablet 3 mg 3 mg, Oral, AT BEDTIME, First dose (after last modification) on 08/31/24 at 2100, Until Discontinued, may repeat x 1 after 30 minutes if no benefit of no sleep maintenance $ Given 09/05/2024 9:38 PM BRANCH EXAMINER 3 mg $ Given 09/04/2024 8:32 PM BRANCH EXAMINER 3 mg $ Given 09/03/2024 7:53 PM BRANCH EXAMINER 3 mg metoprolol succinate XL 24hr (Toprol XL) tablet 12.5 mg 12.5 mg, Oral, DAILY, First dose (after last modification) on Reyna 08/29/24 at 0815, Until Discontinued, May cut in half but do not crush or chew $ Given 08/31/2024 8:43 AM BRANCH EXAMINER 12.5 mg $ Given 08/30/2024 10:25 AM BRANCH EXAMINER 12.5 mg $ Given 08/29/2024 9:15 AM BRANCH EXAMINER 12.5 mg OLANZapine (disintegrating) (ZyPREXA Zydis) tablet 2.5 mg 2.5 mg, Sublingual, EVERY 6 HOURS PRN, For agitation, Starting on 08/31/24 at 1442, Until Mon09/02/24 at 1313 $ Given 09/01/2024 5:59 PM BRANCH EXAMINER 2.5 mg polyethylene glycol 3350 (Miralax) packet 17 g 17 g, Oral, DAILY, First dose on 08/28/24 at 0900, Until Discontinued, Mix in 8 ounces of water, juice, soda, coffee or tea prior to administration $ Given 09/06/2024 8:57 AM BRANCH EXAMINER 17 g $ Given 09/05/2024 8:31 AM BRANCH EXAMINER 17 g $ Given 09/04/2024 7:30 AM BRANCH EXAMINER 17 g potassium - sodium phosphates (Phos-Nak) powder 1 packet 1 packet, Oral, 3 TIMES DAILY WITH MEALS, 2 doses, First dose on Mon08/30/24 at 1200, Last dose on Mon08/30/24 at 1800, Mix contents of packet in 6 to 8 ounces of water and drink, may taste better if cold Contains Phos 8 mmol, K+ 7 mEq, Na 7 mEq per packet $ Given 08/30/2024 5:25 PM BRANCH EXAMINER 1 packet $ Given 08/30/2024 12:39 PM BRANCH EXAMINER 1 packet QUEtiapine (SEROquel) tablet 12.5 mg 12.5 mg, Oral, AT BEDTIME, First dose on Mon08/28/24 at 2100, Until Discontinued $ Given 08/29/2024 8:20 PM BRANCH EXAMINER 12.5 mg $ Given 08/28/2024 8:40 PM BRANCH EXAMINER 12.5 mg QUEtiapine (SEROquel) tablet 12.5 mg 12.5 mg, Oral, Once, 1 dose, On Mon08/29/24 at 2145 $ Given 08/29/2024 9:51 PM BRANCH EXAMINER 12.5 mg QUEtiapine (SEROquel) tablet 12.5 mg 12.5 mg, Oral, AT BEDTIME, First dose (after last modification) on Mon08/30/24 at 2100, Until Discontinued $ Given 08/30/2024 8:25 PM BRANCH EXAMINER 12.5 mg QUEtiapine (SEROquel) tablet 12.5 mg 12.5 mg, Oral, AT BEDTIME, First dose on Mon09/02/24 at 2100, Until Discontinued $ Given 09/05/2024 9:38 PM BRANCH EXAMINER 12.5 mg $ Given 09/04/2024 8:31 PM BRANCH EXAMINER 12.5 mg $ Given 09/03/2024 7:53 PM BRANCH EXAMINER 12.5 mg QUEtiapine (SEROquel) tablet 12.5 mg 12.5 mg, Oral, 3 TIMES DAILY PRN, Severe non-redirectable agitation, Starting on Mon09/03/24 at 1122, Until Mon09/06/24 at 1259 $ Given 09/05/2024 11:48 PM BRANCH EXAMINER 12.5 mg $ Given 09/04/2024 3:50 PM BRANCH EXAMINER 12.5 mg $ Given 09/04/2024 7:56 AM BRANCH EXAMINER 12.5 mg QUEtiapine (SEROquel) tablet 25 mg 25 mg, Oral, DAILY, First dose on Mon08/28/24 at 1415, Until Discontinued $ Given 08/31/2024 8:43 AM BRANCH EXAMINER 25 mg $ Given 08/30/2024 10:22 AM BRANCH EXAMINER 25 mg $ Given 08/29/2024 9:15 AM BRANCH EXAMINER 25 mg QUEtiapine (SEROquel) tablet 25 mg 25 mg, Oral, EVERY MORNING, First dose on Mon09/03/24 at 0700, Until Discontinued $ Given 09/06/2024 5:52 AM BRANCH EXAMINER 25 m g $ Given 09/05/2024 8:30 AM BRANCH EXAMINER 25 mg $ Given 09/03/2024 6:42 AM BRANCH EXAMINER 25 mg senna (Senokot) tablet 8.6 mg 8.6 mg, Oral, DAILY, First dose on Mon08/28/24 at 0900, Until Discontinued $ Given 09/06/2024 8:57 AM BRANCH EXAMINER 8.6 mg $ Given 09/05/2024 8:30 AM BRANCH EXAMINER 8.6 mg $ Given 09/04/2024 7:31 AM BRANCH EXAMINER 8.6 mg traZODone (Desyrel) tablet 25 mg 25 mg, Oral, 3 TIMES DAILY, First dose on Mon08/31/24 at 1530, Until Discontinued $ Given 09/02/2024 9:32 AM BRANCH EXAMINER 25 mg $ Given 09/01/2024 8:58 PM BRANCH EXAMINER 25 mg $ Given 09/01/2024 1:24 PM BRANCH EXAMINER 25 mg documented in this encounter Active and Recently Administered Medications Times are shown in BRANCH EXAMINER. Scheduled Medication Order 09/04/2024 09/05/2024 09/06/2024 0.9% NaCl injection 3 mL(Linked Group 1) 3 mL, Intracatheter, EVERY 8 HOURS, First dose on Mon08/27/24 at 2330, Until Discontinued, Flush peripheral IV catheter with 3 mL of normal saline every 8 hours. 0640 (Not Administered - Provider: Melina Mota RN - Reason: Loss of Access)1340 (Not Administered - Provider: Litzy Grady RN - Reason: Loss of Access)2040 (Not Administered - Provider: Miky Wells RN - Reason: Loss of Access - Comment: MD aware) 0435 (Not Administered - Provider: Miky Wells RN - Reason: Loss of Access - Comment: MD aware)1445 (Not Administered - Provider: Vandana Cartwright RN - Reason: Loss of Access)2138 (Not Administered - Provider: Miky Wells RN - Reason: Loss of Access) 0548 (Not Administered - Provider: Miky Wells RN - Reason: Loss of Access) acetaminophen (Tylenol) tablet 1,000 mg 1,000 mg, Oral, 3 TIMES DAILY, First dose (after last modification) on Mon08/28/24 at 2100, Until Discontinued, Patient preference for lesser PRN pain meds [...] first unless patient cannot tolerate oral intake 0731 ($ Given - Provider: Litzy Grady RN)1340 ($ Given - Provider: Litzy Grady RN)203 ($ Given - Provider: Miky Wells RN) 0830 ($ Given - Provider: Vandana Cartwright RN)1455 ($ Given - Provider: Vandana Cartwright RN)2138 ($ Given - Provider: Miky Wells RN) 0857 ($ Given - Provider: Vandana Cartwright RN) enoxaparin (Lovenox) injection 30 mg (CANCELED) 30 mg, Subcutaneous, EVERY 12 HOURS, First dose on Mon08/28/24 at 1415, Until Discontinued, (for prefilled syringes) do not expel air bubble from the syringe prior to the injection Remind Patient to not rub injection site. Could cause hematoma. 0734 ($ Given - Provider: Litzy Grady RN)203 ($ Given - Provider: Miky Wells RN) 0830 ($ Given - Provider: Vandana Cartwright RN) enoxaparin (Lovenox) injection 40 mg 40 mg, Subcutaneous, DAILY, First dose on Mon09/06/24 at 0900, Until Discontinued, (for prefilled syringes) do not expel air bubble from the syringe prior to the injection Remind Patient to not rub injection site. Could cause hematoma. 0900 (Due) escitalopram (Lexapro) tablet 10 mg 10 mg, Oral, DAILY, First dose on Mon08/28/24 at 1415, Until Discontinued 0731 ($ Given - Provider: Litzy Grady RN) 0830 ($ Given - Provider: Vandana Cartwright RN) 0857 ($ Given - Provider: Vandana Cartwright RN) finasteride (Proscar) tablet 5 mg 5 mg, Oral, DAILY, First dose on Mon08/29/24 at 0900, Until Discontinued, Women who are or planning to become should not handle crushed or broken tablets 0731 ($ Given - Provider: Litzy Grady RN) 0830 ($ Given - Provider: Vandana Cartwright RN) 0857 ($ Given - Provider: Vandana Cartwright RN) gadobutrol (Gadavist) injection Intravenous, CONTRAST ONCE, Starting on Mon09/05/24 at 0933, Until Mon09/06/24 at 1259 0933 ($ Given - Contrast - Provider: Ange Tsang, RT(R)(MR)) levETIRAcetam (Keppra) tablet 500 mg 500 mg, Oral, 2 TIMES DAILY, First dose on Mon08/30/24 at 0900, Until Discontinued, Do not crush or chew because of TASTE only. 0730 ($ Given - Provider: Litzy Grady RN)2031 ($ Given - Provider: Miky Wells RN) 0830 ($ Given - Provider: Vandana Cartwright RN)2137 ($ Given - Provider: Miky Wells RN) 0857 ($ Given - Provider: Vandana Cartwright, NIKKIE) lidocaine (Lidoderm) 5 % patch 1 patch 1 patch, Administer over 12 Hours, DAILY, First dose on Mon08/28/24 at 0900, Until Discontinued, Apply to site of pain over rib fx and remove patch after a max of 12 hours of application within a 24 hour period. 0730 ($ Applied - Provider: Litzy Grady RN)2039 (Removed - Provider: Shacola Priscilla, RN) 0831 ($ Applied - Provider: Vandana Cartwright RN - Comment: right side)2137 (Removed - Provider: Miky Wells RN) 0857 (Not Administered - Provider: Vandana Cartwright RN - Reason: Refused-Patient - Comment: too cold) melatonin tablet 3 mg 3 mg, Oral, AT BEDTIME, First dose (after last modification) on Mon08/31/24 at 2100, Until Discontinued, may repeat x 1 after 30 minutes if no benefit of no sleep maintenance 2031 ($ Given - Provider: Miky Wells RN) 2137 ($ Given - Provider: Miky Wells RN) polyethylene glycol 3350 (Miralax) packet 17 g 17 g, Oral, DAILY, First dose on Mon08/28/24 at 0900, Until Discontinued, Mix in 8 ounces of water, juice, soda, coffee or tea prior to administration 0730 ($ Given - Provider: Litzy Grady RN) 0831 ($ Given - Provider: Vandana Cartwright RN) 0857 ($ Given - Provider: Vandana Cartwright RN) QUEtiapine (SEROquel) tablet 12.5 mg 12.5 mg, Oral, AT BEDTIME, First dose on Mon09/02/24 at 2100, Until Discontinued 2030 ($ Given - Provider: Miky Wells RN) 2137 ($ Given - Provider: Miky Wells RN) QUEtiapine (SEROquel) tablet 25 mg 25 mg, Oral, EVERY MORNING, First dose on Mon09/03/24 at 0700, Until Discontinued 0700 (Dose Held - Provider: Melina Mota RN)[id number] (Unheld by Provider - Provider: Kat Garsia MD) 0830 ($ Given - Provider: Vandana Cartwright RN) 0552 ($ Given - Provider: Miky Wells RN) senna (Senokot) tablet 8.6 mg 8.6 mg, Oral, DAILY, First dose on Mon08/28/24 at 0900, Until Discontinued 31 ($ Given - Provider: Litzy Grady RN) 0830 ($ Given - Provider: Vandana Cartwright RN) 0857 ($ Given - Provider: Vandana Cartwright RN) PRN Medication Order 09/04/2024 09/05/2024 09/06/2024 0.9% NaCl injection 1-10 mL(Linked Group 1) 1-10 mL, Intracatheter, PRN, Other, peripheral line flush, Starting on Mon08/27/24 at 2258, Until Mon09/06/24 at 1259, Flush peripheral IV catheter with 1-10 mL of normal saline before and after medications and prn to clear blood from the line or to verify patency. albuterol-ipratropium (Duo-Neb) nebulizer solution 3 mL 3 mL, Inhalation, EVERY 6 HOURS PRN, Shortness of Breath, Wheezing, Starting on Mon08/28/24 at 0720, Until Mon09/06/24 at 1259 LORazepam (Ativan) injection 1 mg 1 mg, Intravenous, ONCE PRN, Other, For MRI, 1 dose, Starting on Mon09/02/24 at 0107, Until Mon09/06/24 at 1259 QUEtiapine (SEROquel) tablet 12.5 mg 12.5 mg, Oral, 3 TIMES DAILY PRN, Severe non-redirectable agitation, Starting on Mon09/03/24 at 1122, Until Mon09/06/24 at 1259 0756 ($ Given - Provider: Litzy Grady RN)1550 ($ Given - Provider: Litzy Grady RN) 2348 ($ Given - Provider: Miky Wells RN) Linked Groups Order Group 1: SALINE LOCK, INSERT AND MAINTAIN (CANCELED) Routine, CONTINUOUS, Starting on Mon08/27/24 at 2300, Until Specified, New collection, Task Completed: Yes And 0.9% NaCl injection 3 mLJump to med 3 mL, Intracatheter, EVERY 8 HOURS, First dose on Mon08/27/24 at 2330, Until Discontinued, Flush peripheral IV catheter with 3 mL of normal saline every 8 hours. And 0.9% NaCl injection 1-10 mLJump to med 1-10 mL, Intracatheter, PRN, Other, peripheral line flush, Starting on Mon08/27/24 at 2258, Until Mon09/06/24 at 1259, Flush peripheral IV catheter with 1-10 mL of normal saline before and after medications and prn to clear blood from the line or to verify patency. documented in this encounter Additional Health Concerns Infection Onset Date Last Indicated Resolved Time COVID-19 Under Investigation 08/28/2024 08/28/2024 08/28/2024 11:49 AM BRANCH EXAMINER documented as of this encounter Care Teams Assistant Store Manager Operations Relationship Specialty Start Date End Date Bao Pierre MD PCP - General Internal Medicine 07/09/17 documented as of this encounter
--- OUTSIDE RECORDS SUMMARY | 2024-10-01 08:36 | XMS_ITS | Encounter Summary ---
Author Organization [facility] Address [address] [facility] [place] [address] Care Team Providers Care Material Handling Supervisor Name Role Phone Bao Pierre MD Primary Care Provider [phone] Encounter Details Date Type Department Care Team (Late Contact Info) Description 03/17/2016 Anesthesia Historic Visit [facility] SURGERY [address] [place] [phone] Social History Tobacco Use Types Packs/Day Years Used Date Smoking Tobacco: Never Assessed Sex and Gender Information Value Date Recorded Sex Assigned at Not on file Gender Identity Not on file Sexual Orientation Not on file documented as of this encounter Plan of Treatment Upcoming Encounters Date Type Department Care Team (Late st Contact Info) Description 10/09/2024 11:30 AM TRUSTEE OF ESTATE Office Visit [facility] - Dermatology [address] [place] [phone] Katharine Bar MD [address] [place] [address] 3 [place] [address] 11/19/2024 8:30 AM TRUSTEE OF ESTATE Office Visit [facility] [address] [place] [phone] Patricia Jarvis MD [address] [place] [address] 11/22/2024 8:00 AM TRUSTEE OF ESTATE Office Visit [facility] - Neurology [address] [place] [phone] Chay Nieves MD [address] [place] [address] documented as of this encounter Visit Diagnoses Not on filedocumented in this encounter Care Teams Material Handling Supervisor Relationship Specialty Start Date End Date Bao Pierre MD PCP - General Internal Medicine 07/09/17 documented as of this encounter
--- OUTSIDE RECORDS SUMMARY | 2024-10-01 08:36 | XMS_ITS | Encounter Summary ---
Author Organization [facility] Address [address] [facility] [place] [address] Care Team Providers Care Quiller Machine Fixer Name Role Phone Bao Pierre MD Primary Care Provider [phone] Encounter Details Date Type Department Care Team (Latest Contact Info) Description 09/08/2024 Travel Social History Tobacco Use Types Packs/Day [...] care, and heating? Not very hard 09/08/2024 [facility] [place] of Occupat ional Health - Occupational Stress [...] any time in the past 12 m [facility], were you homeless or living in a long-term (including now)? No 09/08/2024 Sex and Gender [...] st Contact Info) Description 10/09/2024 11:30 AM IT PROGRAM MANAGER Office Visit [facility] Derm[facility]ology [address] [place] [address], [place] [phone] Katharine Bar MD [address] [place] [address] [place] [phone] 11/19/2024 8:30 AM IT PROGRAM MANAGER Office Visit [facility] Derm[facility] [address] [place] [phone] Patricia Jarvis MD [address] [place] [address] 11/22/2024 8:00 AM IT PROGRAM MANAGER Office Visit [facility] [address] [facility], [place] [phone] Chay Nieves MD [address] [place] [address] documented as of this encounter Visit Diagnoses Not on filedocumented in this encounter Care Teams Quiller Machine Fixer Relationship Specialty Start Date End Date Bao Pierre MD PCP - General Internal Medicine 07/09/17 documented as of this encounter
--- OUTSIDE RECORDS SUMMARY | 2024-10-01 08:36 | XMS_ITS | Encounter Summary ---
Author Organization [facility] Address [address] [facility] [place] [address] Care Team Providers Care Jail Keeper Name Role Phone Bao Pierre MD Primary Care Provider [phone] Encounter Details Date Type Department Care Team (Latest Contact Info) Description 11/14/2023 Travel Social History Tobacco Use Types Packs/Day [...] st Contact Info) Description 10/09/2024 11:30 AM ELECTRONIC INDUSTRIAL CONTROLS MECHANIC Office Visit [facility] Derm[facility]ology [address] [place] [phone] Katharine Bar MD [address] [place] [address] [place] [address] 11/19/2024 8:30 AM ELECTRONIC INDUSTRIAL CONTROLS MECHANIC Office Visit [facility] [address] [place] [phone] Patricia Jarvis MD [facility] [place] [address] 11/22/2024 8:00 AM ELECTRONIC INDUSTRIAL CONTROLS MECHANIC Office Visit [facility]rology [address] [place] [phone] Chay Nieves MD [address] [place] [address] documented as of this encounter Visit Diagnoses Not on filedocumented in this encounter Care Teams Jail Keeper Relationship Specialty Start Date End Date Bao Pierre MD PCP - General Internal Medicine 07/09/17 documented as of this encounter
--- OUTSIDE RECORDS SUMMARY | 2024-10-01 08:36 | XMS_ITS | Encounter Summary ---
Author Organization [facility] Address [address] [facility] [place] [address] Care Team Providers Care Tangible Personal Property Appraiser Name Role Phone Bao Pierre MD Primary Care Provider [phone] Encounter Details Date Type Department Care Team (Latest Contact Info) Description 06/18/2020 Travel Social History Tobacco Use Types Packs/Day [...] st Contact Info) Description 10/09/2024 11:30 AM BODY MAKER Office Visit [facility] Derm[facility] [address] [place] [phone] Katharine Bar MD [address] [place] [address] [place] [address] 11/19/2024 8:30 AM BODY MAKER Office Visit [facility] Derm[facility] [address] [place] [phone] Patricia Jarvis MD [address] [place] [address] 11/22/2024 8:00 AM BODY MAKER Office Visit [facility] Neurology [address] [place] [address], [place] [address] Chay Nieves MD [address] [place] [address] documented as of this encounter Visit Diagnoses Not on filedocumented in this encounter Care Teams Tangible Personal Property Appraiser Relationship Specialty Start Date End Date Bao Pierre MD PCP - General Internal Medicine 07/09/17 documented as of this encounter
--- OUTSIDE RECORDS SUMMARY | 2024-10-01 08:36 | XMS_ITS | Encounter Summary ---
Author Organization [facility] Health Address [facility] [facility] [place] [address] Care Team Providers Care Semiconductor Lab Technician Name Role Phone Bao Pierre MD Primary Care Provider [phone] Reason for Visit * Reason Onset Date Comments Medication Problem 03/19/2019 Encounter Details Date Type Department Care Team (Late st Contact Info) Description 03/19/2019 Telephone [facility] [address] [place], [place] [phone] Martina Fisher PA [address] [facility] 3L [place] [phone] Medication Problem Social History Tobacco Use Types Packs/Day Years [...] * Telephone Encounter - Vandana Rubio - 03/28/2019 3:46 PM CDT [facility], they [facility] they cannot [facility] a [facility] because he was not referred by the PCPto see anyone in our office. They will need to call me back to go over information. Vandana Rubio * Telephone Encounter - Nguyen Morales - 03/19/2019 11:14 AM CDT ingenol (PICATO) 0.015 % gel Pts home health care provider called stating that this med was too much money at the [facility] and pt would like [facility]. The [facility] needs a copy of script, a copy of recent progress notes explaining why the med is needed and a copy of recent labs/proc/surgery or any tests in dermatology generated from non [facility] clinic. Please advise. documented in this encounter Plan of Treatment Upcoming Encounters Date Type Department Care Team (Late st Contact Info) Description 10/09/2024 11:30 AM SHOP WELDER Office Visit [facility] [address] [place] [phone] Katharine Bar MD [address] [place] [address] 3 [place] [phone] 11/19/2024 8:30 AM SHOP WELDER Office Visit [facility] [address] [place] [phone] Patricia Jarvis MD [address] [place] [address] 11/22/2024 8:00 AM SHOP WELDER Office Visit [facility] - Neurology [address] [place] [phone] Chay Nieves MD [address] [place] [address] documented as of this encounter Visit Diagnoses Not on filedocumented in this encounter Additional Health Concerns Infection Onset Date Last Indicated Resolved Time COVID-19 Under Investigation 08/28/2024 08/28/2024 08/28/2024 11:49 AM SHOP WELDER documented as of this encounter Care Teams Semiconductor Lab Technician Relationship Specialty Start Date End Date Bao Pierre MD PCP - General Internal Medicine 07/09/17 documented as of this encounter
--- OUTSIDE RECORDS SUMMARY | 2024-10-01 08:36 | XMS_ITS | Encounter Summary ---
Author Organization [facility] Address [address] [facility] [place] [address] Care Team Providers Care Gold Wheel Blocker And Polisher Name Role Phone Bao Pierre MD Primary Care Provider Encounter Details Date Type Department Care Team [...] st Contact Info) Description 10/09/2024 11:30 AM SOAP PRESS FEEDER Office Visit [facility] Derm[facility] [address] [place] [address], [place] [phone] Katharine Bar MD [address] [place] [address] [place] [phone] 11/19/2024 8:30 AM SOAP PRESS FEEDER Office Visit [facility] [address] [place] [phone] Patricia Jarvis MD [facility]5 [place] [address] 11/22/2024 8:00 AM SOAP PRESS FEEDER Office Visit [facility] [address] [facility], [place] [phone] Chay Nieves MD [address] [place] [address] documented as of this encounter Visit Diagnoses Not on filedocumented in this encounter Care Teams Gold Wheel Blocker And Polisher Relationship Specialty Start Date End Date Bao Pierre MD PCP - General Internal Medicine 07/09/17 documented as of this encounter
--- OUTSIDE RECORDS SUMMARY | 2024-10-01 08:36 | XMS_ITS | Encounter Summary ---
Author Organization [facility] Address [address] [facility] [place] [address] Care Team Providers Care Jewelry Racker Name Role Phone Bao Pierre MD Primary Care Provider [phone] Encounter Details Date Type Department Care Team (Latest Contact Info) Description 04/08/2024 Travel Social History Tobacco Use Types Packs/Day [...] st Contact Info) Description 10/09/2024 11:30 AM DULITE MACHINE BLUER Office Visit [facility] [address] [place] [phone] Katharine Bar MD [address] [place] [address] [place] [address] 11/19/2024 8:30 AM DULITE MACHINE BLUER Office Visit [facility] [address] [place] [phone] Patricia Jarvis MD [facility] [place] [address] 11/22/2024 8:00 AM DULITE MACHINE BLUER Office Visit [facility] [address] [place] [phone] Chay Nieves MD [address] [place] [address] documented as of this encounter Visit Diagnoses Not on filedocumented in this encounter Care Teams Jewelry Racker Relationship Specialty Start Date End Date Bao Pierre MD PCP - General Internal Medicine 07/09/17 documented as of this encounter
--- OUTSIDE RECORDS SUMMARY | 2024-10-01 08:36 | XMS_ITS | Encounter Summary ---
Author Organization [facility] Address [address] [facility] [place] [address] Care Team Providers Care Mercury Washer Name Role Phone Bao Pierre MD Primary Care Provider [phone] Reason for Visit * Reason Comments Follow-up Upper body skin chec k- scattered spots, spot on rt postauricular doing better now Encounter Details Date Type Department Care Team (Late st Contact Info) Description 02/22/2019 11:00 AM CDT Office Visit [facility] [address] [place] [address] Lincoln Leone MD [address] [facility] 3L [place] [address] Actinic keratosis (Primary Dx); Multiple benign nevi of upper and lower extremities, and trunk; Seborrheic keratosis; Solar lentiginosis; Neoplasm of uncertain behavior of skin Social History Tobacco Use Types Packs/Day Years [...] this encounter Patient Instructions * Patient Instructions* Juan Asif MD - 02/22/2019 11:04 AM CDT It was a pleasure seeing you in clinic today. You had a biopsy performed today. We will call you with these results. This may take 7-10 days. [place] for how to care for the site. WOUND CARE INSTRUCTIONS If you have a bandage, please leave your bandage on overnight. Starting the next day, cleanse your wound with mild soap and water and gently pat dry. Avoid soaking in bath or dishwater. Apply petroleum jelly to the wound after cleaning the wound and, as needed, throughout the day to keep the area moist and prevent a scab from forming. Cover the wound with a Band-Aid or appropriate dressing. For pain, you may take acetaminophen (extra or regular strength), 2 tablets every four hours as needed for pain. Do not exceed the recommended limit on the directions. Avoid ibuprofen containing products or related products(Motrin, Advil, Aleve, aspirin, etc) unless prescribed by your physician. Avoid any trauma of activity that may open your surgical wound. Notify your physician if you have: Bleeding that does not stop after 20 minutes of continuous pressure. Yellowish/greenish discharge from the treated area Increasing tenderness or pain Warmth of the area and/or fever over 101 F Red streaks up the arm or leg close to the treated area POST CRYOTHERAPY CARE Redness and swelling may [...] a hole in the blister and drain thefluid. Do not remove the skin of the blister; this blister acts as a bandage for the area. After 24 hours, clean the areas twice a day with mild soap and water. Pat dry and apply petroleum jelly (plain vaseline) with a cotton swab. The petroleum jelly will help keep the area moist, help prevent a scab from forming, and less the chance of infection. If you wish, you may cover the area with a bandage. Do not apply any topical medications or medicated pads to open skin unless otherwise directed. Notify your physician if you have: Yellowish/greenish discharge from the treated area Increasing tenderness or pain Warmth of the area and/or fever over 101 F documented in this encounter Progress Notes * Lincoln Leone MD - 02/22/2019 10:52 AM CDT Patient seen and examined with Resident. Please see note for further details. I was present for thekey portions of any procedures performed. I confirm history, exam, assessment and plan with the following exceptions/additions: CC: eval lesions HPI: Usually sees Dr. Noriega. 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 Usually not painful. Focal lesions usually respond well to cryo. Has hx brown spots, kisha on back. Most present for years. None seem to [...] -rough, gritty, poorly defined papules on face, -R postauric: pink indurated papule Assessment/Plan Neoplasm of unspecified nature/uncertain beh of the R postauric -ddx: r/o NMSC -shave bx Actinic keratosis (AK) -discuss precancerous nature -cryo x5-10 sec freeze time -lesions trt: 13 face, ears, scalp, arms -blister care discussed -sun protective beh -yearly FBSE -consider field therapy in future Actinic lentigines/solar lentiginosis, multiple nevi -benign, educ, reassurance -marker of chronic sun damage and increased risk for skin malignancy, yearly FBSE reasonable -sun protection seborrheic keratosis -benign, educ of nature, causes, course -reassurance not dangerous/cancerous -no treatment indicated unless symptomatic RTC 6 mo Lincoln Leone MD * Juan Asif MD - 02/22/2019 10:42 AM CDT Chief Complaint Patient presents with ??? Follow-up Upper body skin check- scattered spots, spot on rt postauricular doing better now HPI: Frandy Alvares a 83 year old male presents for skin exam. LV: 04/18/18 Concerns: 1) Spot behind R ear ?? Noted months ago ?? Asymptomatic ?? Seemed to be healing in well Personal history of skin cancer: -SCC Allergies and medications were reviewed and verified. Past medical history, social history and family history were reviewed. ROS: As per HPI above. Patient denies fever, chills and night sweats. PE: No acute distress. Mood clear/affect appropriate. Alert and oriented. Mucous membranes moist. Sclera anicteric. Waist up skin exam was conducted to include the scalp, face, lips/teeth, lids/conjunctiva, ears, neck, chest, back, right and left hands and forearms and was normal with the following exceptions: A: 3mm pink scaly firm papule R postauricular -multiple well healed scars without irregularity in the above noted previously treated skin cancer locations -multiple light brown macules on trunk and ext -multiple round brown symmetric macules and brown to skin colored symmetric papules on trunk and ext -multiple brown waxy stuck on papules and plaques on trunk and ext -gritty pink macules on face, scalp, arms A/P: Frandy was seen today for follow-up. Diagnoses and all orders for this visit: Actinic keratosis - PROC DESTRUCTION OF PRE-MALIGNANT LESIONS ?? Cryo 13 face, ears, scalp, arms ?? WC reviewed Multiple benign nevi of upper and lower extremities, and trunk ?? Reassurance, benign ?? Discussed need for daily sunscreen and gave instructions on sun protection. Went over ABCDE's for self exam. Seborrheic keratosis ?? Reassurance, benign Solar lentiginosis ?? Reassurance, benign Neoplasm of uncertain behavior of skin - DERMATOPATHOLOGY - PROC BIOPSY OF SKIN LESION ?? Ruptured hair follicle vs. BCC ?? Shave bx ?? WC reviewed RTC pending bx results Juan Asif M.D. PGY-3 dermatology resident documented in this encounter Plan of Treatment Upcoming Encounters Date Type Department Care Team (Late st Contact Info) Description 10/09/2024 11:30 AM SWITCHBOX ASSEMBLER Office Visit [facility] [address] [place] [phone] Katharine Bar MD [address] [place] [address] 3 [place] [phone] 11/19/2024 8:30 AM SWITCHBOX ASSEMBLER Office Visit [facility] [address] [place] [phone] Patricia Jarvis MD [address] [place] [address] 11/22/2024 8:00 AM SWITCHBOX ASSEMBLER Office Visit [facility] - Neurology [address] [place] [phone] Chay Nieves MD [address] [place] [address] Pending Results Name Type Priority Associated Diagnoses Date /Time PROC DESTRUCTION OF PRE-MALIGNANT LESIONS Procedures Routine Actinic keratosis 02/22/2019 11:06 AM CDT PROC BIOPSY OF SKIN LESION Procedures Routine Neoplasm of uncertain behavior of skin 02/22/2019 11:06 AM CDT documented as of this encounter Procedures Procedure Name Priority Date/Time Associated Diagnosis Comments MADIHA JESSICA BX SKIN SINGLE LES Routine 02/22/2019 11:06 AM CDT Neoplasm of uncertain behavior of skin AK DESTROY PREMALIG LESION, 1ST LESION Routine 02/22/2019 11:06 AM CDT Actinic keratosis AK DESTROY PREMALIG LESION, 2-14 Routine 02/22/2019 11:06 AM CDT Actinic keratosis DERMATOPATHOLOGY Routine 02/22/2019 12:0 0 AM CDT Neoplasm of uncertain behavior of skin documented in this encounter Results * DERMATOPATHOLOGY (02/22/2019 12:00 AM CDT) Case Report Dermatopathology Report ? Case: [id number] ? Authorizing Provider: ??Lincoln Leone MD ? [...] specimen consists of a shave biopsy measuring [id number]. Jar 0. 5:54 PM CDT DERMATOPATHOLOGY LABORATORY [...] characteristic determined by the Dermatopathology Laboratory at [facility], directed by Dr. Taj Feng. These tests need not be, and therefore are not, approved by the [place] Food and Drug Administration. The tests are used for clinical purposes. Billing Codes Specimen Charges Stain Charges 77084 1 5:54 PM CDT DERMATOPATHOLOGY LABORATORY Embedded Images 5:54 PM CDT DERMATOPATHOLOGY LABORATORY Pathology/Cytolog y TISSUE SPECIMEN FROM SKIN / Unknown 02/22/2019 02/22/2019 12:50 PM CDT Lincoln Leone MD LAB - PATHOLOGY/CYTO LOGY ORDERABLES DERMATOPATHOLOGY LABORATORY [facility] - Department of Dermatology [address] [facility], 5th [place] [address], [facility] [phone] documented in this encounter Visit Diagnoses Diagnosis Actinic keratosis- Primary Multiple benign nevi of upper and lower extremities, and trunk Seborrheic keratosis Solar lentiginosis Other dyschromia Neoplasm of uncertain behavior of skin documented in this encounter Care Teams Mercury Washer Relationship Specialty Start Date End Date Bao Pierre MD PCP - General Internal Medicine 07/09/17 documented as of this encounter
--- OUTSIDE RECORDS SUMMARY | 2024-10-01 08:36 | XMS_ITS | Encounter Summary ---
Author Organization [facility] Address [address] [facility] [place] [address] Care Team Providers Care Administrative Intern Name Role Phone Bao Pierre MD Primary Care Provider [phone] Reason for Visit * Reason Comments Imm Inj flu Encounter Details Date Type Department Care Team (Late st Contact Info) Description 07/09/2017 11:20 AM CDT Office Visit [facility] [address] [place] [address] Provider, Hamilton Exp Nameoki Need for vaccination (Primary Dx) Social History Tobacco Use Types Packs/Day Years Used Date Smoking Tobacco: Never Assessed Sex and Gender Information Value Date Recorded Sex Assigned at Not on file Gender Identity Not on file Sexual Orientation Not on file documented as of this encounter Patient Instructions * Patient Instructions* Jossie Lee, CASING FINISHER AND STUFFER-QUALITY IMPROVEMENT MANAGER - 07/09/2017 10:56 AM CDT Influenza Vaccine CASH SURRENDER CALCULATOR: The influenza vaccine is an injection given to help prevent influenza (flu). The flu is caused by avirus. The virus spreads from person to person through coughing and sneezing. Several types of viruses cause the flu. The viruses book coverer time, so new vaccines are made each year. The vaccine begins to protect you about 2 weeks after you get it. The flu shot usually injected into your upper arm. It may be given in your thigh. Call 911 for any of the following: ?? Your mouth and throat are swollen. ?? You are wheezing or have trouble breathing. ?? You have chest pain or your heart is beating faster than normal for you. ?? You feel like you are going to faint. Seek care immediately if: ?? Your face is red or swollen. ?? You have hives that spread over your body. ?? You feel weak or dizzy. Contact your healthcare provider if: ?? You have increased pain, redness, or swelling around the area where the shot was given. ?? You have questions or concerns about the influenza vaccine. Types of influenza vaccines: You may get a vaccine with a weak, live, or virus. The vaccine with a live virus can cause mild illness, but it does not cause the flu. When to get the influenza vaccine: The influenza vaccine is offered every year starting in July or August. Get the influenza vaccine as soon as it is available. Children between 6 months and 8 years old need 2 vaccines during the first year they get it. The 2 vaccines should be given 4 or moreweeks apart. It is best if the same type of vaccine is given both times. Who should get the flu shot: ?? Infants 6 months or older ?? Any healthy adult who would like to decrease the risk for the flu ?? Anyone living with or caring for children younger than 5 years ?? Healthcare workers ?? Anyone who lives in a long-term care facility ?? Anyone who has chronic health problems, such as asthma, diabetes, or blood disorders ?? Anyone who has a weak immune system ?? Women who are or will be during the flu season Who should not get the flu shot: ?? Anyone who has an egg allergy should ask the healthcare provider if it is safe to get the flu shot ?? Infants younger than 6 months ?? Anyone who has had an allergic reaction to the flu shot ?? Anyone who is sick or has a fever ?? Anyone who received a diagnosis of Guillain-Mills?? syndrome within 6 weeks of getting a flu vaccine ?? Anyone who is allergic to thimerosal (mercury) Risks of the influenza vaccine: The flu shot may cause mild symptoms, such as a fever, headache, and muscle aches. It may also cause mild to moderate soreness or redness at the area where you were given the shot. The nasal spray may cause a fever, runny or stuffy nose, headache, muscle aches, or vomiting. You may still get the flu after you receive the influenza vaccine. If you are allergic to eggs, ask about an egg-free vaccine. You may have an allergic reaction to the vaccine. This can be life-threatening. Follow up with your healthcare provider as directed: Write down your questions so you remember to ask them during your visits. ?? 2016 [employer]. Information is for End User's use only and may not be sold, redistributed or otherwise used for commercial purposes. All illustrations and images included in CareNotes?? are the copyrighted property of [employer], [employer]. or [employer]. The above information is an residential aide only. It is not intended as medical advice for individual conditions or treatments. Talk to your doctor, nurse or pharmacist before following any medical regimen to see if it is safe and effective for you. documented in this encounter Progress Notes * Jossie Lee APRN-CNP - 07/09/2017 10:55 AM CDT Patient here for influenza vaccine today. Allergies reviewed. Vaccine consent signed, reviewed withpatient, and scanned into record. Education materials provided to patient. Patient tolerated well. Jossie Lee APRN, LABORER WHARF-BC documented in this encounter Plan of Treatment Upcoming Encounters Date Type Department Care Team (Late st Contact Info) Description 10/09/2024 11:30 AM MAGNETIC RESONANCE IMAGING DIRECTOR Office Visit [facility] - Dermatology [address] [place] [phone] Katharine Bar MD [address] [place] [address] [address] [place] [address] 11/19/2024 8:30 AM MAGNETIC RESONANCE IMAGING DIRECTOR Office Visit [facility] - Dermatology [address] [place] [phone] Patricia Jarvis MD [address] [place] [address] 11/22/2024 8:00 AM MAGNETIC RESONANCE IMAGING DIRECTOR Office Visit [facility] - Neurology [address] [facility], [place] [address] Chay Nieves MD [address] [place] [address] documented as of this encounter Visit Diagnoses Diagnosis Need for vaccination- Primary Need for prophylactic vaccination and inoculation against unspecified single disease documented in this encounter Care Teams Administrative Intern Relationship Specialty Start Date End Date Bao Pierre MD PCP - General Internal Medicine 07/09/17 documented as of this encounter
--- OUTSIDE RECORDS SUMMARY | 2024-10-01 08:36 | XMS_ITS | Encounter Summary ---
Author Organization [facility] Address [address] [place] [place] [address] Care Team Providers Care Cigar Bander Name Role Phone Bao Pierre MD Primary Care Provider [phone] Encounter Details Date Type Department Care Team (Late Contact Info) Description 12/31/2015 Anesthesia Historic Visit [facility] [address] [place] [phone] Social History Tobacco Use Types Packs/Day Years Used Date Smoking Tobacco: Never Assessed Sex and Gender Information Value Date Recorded Sex Assigned at Not on file Gender Identity Not on file Sexual Orientation Not on file documented as of this encounter Plan of Treatment Upcoming Encounters Date Type Department Care Team (Late st Contact Info) Description 10/09/2024 11:30 AM TECHNICIAN SUPPORT ENGINEER Office Visit [facility] - Dermatology [address] [place] [phone] Katharine Bar MD [address] [place] [address] 3 [place] [phone] 11/19/2024 8:30 AM TECHNICIAN SUPPORT ENGINEER Office Visit [facility] Dermatology [address] [place] [phone] Patricia Jarvis MD [address] [place] [address] 11/22/2024 8:00 AM TECHNICIAN SUPPORT ENGINEER Office Visit [facility] Neurology [address] [place] [phone] Chay Nieves MD [address] [place] [address] documented as of this encounter Visit Diagnoses Not on filedocumented in this encounter Care Teams Cigar Bander Relationship Specialty Start Date End Date Bao Pierre MD PCP - General Internal Medicine 07/09/17 documented as of this encounter
--- OUTSIDE RECORDS SUMMARY | 2024-10-01 08:36 | XMS_ITS | Encounter Summary ---
Author Organization [facility] Address [address] [facility] [place] [address] Care Team Providers Care Certified Registered Locksmith Name Role Phone Bao Pierre MD Primary Care Provider [phone] Encounter Details Date Type Department Care Team (Latest Contact Info) Description 06/07/2023 Travel Social History Tobacco Use Types Packs/Day [...] st Contact Info) Description 10/09/2024 11:30 AM QUALITY ASSURANCE CLERK Office Visit [facility] - Dermatology [address] [place] [phone] Katharine Bar MD [address] [place] [address] [place] [address] 11/19/2024 8:30 AM QUALITY ASSURANCE CLERK Office Visit [facility] Dermatology [address] [place] [phone] Patricia Jarvis MD [facility] [place] [address] 11/22/2024 8:00 AM QUALITY ASSURANCE CLERK Office Visit [facility] Neurology [address] [place] [phone] Chay Nieves MD [address] [place] [address] documented as of this encounter Visit Diagnoses Not on filedocumented in this encounter Care Teams Certified Registered Locksmith Relationship Specialty Start Date End Date Bao Pierre MD PCP - General Internal Medicine 07/09/17 documented as of this encounter
--- OUTSIDE RECORDS SUMMARY | 2024-10-01 08:36 | XMS_ITS | Encounter Summary ---
Author Organization [facility] Address [address] [facility] [place] [address] Care Team Providers Care Stretcher Drier Operator Name Role Phone Bao Pierre MD Primary Care Provider Reason for Visit * Reason Comments Actinic Keratosis Spots on forehead Encounter Details Date Type Department Care Team (Late st Contact Info) Description 11/14/2023 8:50 AM MAGNET PLACER Office Visit [facility] - Dermatology [address] [facility] [place] [phone] Lincoln Viear MD [address] [facility] [address] [place] [address] Actinic keratosis (Primary Dx); History of SCC (squamous cell carcinoma) of skin; Solar lentiginosis Social History Tobacco Use Types Packs/Day Years [...] this encounter Patient Instructions * Patient Instructions* Lincoln Viera MD - 11/14/2023 9:26 AM MAGNET PLACER Thank you for coming to your appointment today. We will see you back in 12 months for full scan. Liquid Nitrogen Treatment Liquid nitrogen is a cold, liquefied gas with a temperature of minus 195 degrees Celsius. It is used to freeze or destroy superficial skin growths such as warts and keratoses. Liquid nitrogen causes stinging and mild pain while the growth is being frozen and then thaws. After liquid nitrogen treatment your skin will become swollen and red; it may blister. Occasionallysome blood may leak into the blister causing it to turn black. This is a normal process and is no cause for concern. It is okay to puncture the blister with a sterile needle to relieve the pressure. Then a scab (crust) will form. Keep the area clean with mild soap and water daily. The crust will fall off by itself in one to four weeks. The skin growth will come off with the scab leaving healthy new skin. Hypopigmentation (increase in pigment color) can occur in darker skin patients. Usually, this discoloration resolves with time. You can wash your skin as usual and use makeup or other cosmetics if there are no open areas. If clothing irritates the area, cover it with a small band-aid. Over the counter pain medicines such as Tylenol can be taken if needed for soreness. Sometimes liquid nitrogen treatment fails. If the growth is not cured by liquid nitrogen within four weeks, please make a return appointment. ET PLACER documented in this encounter Progress Notes * Diana Odom MD - 11/14/2023 9:23 AM CST I have seen and examined the patient with the resident and I agree with the findings and plan of care as documented by the resident. Date of Service: 11/14/2023 1. AKs -LN2 2. H[place] [facility] [place] Odom MD ET PLACER * Lincoln Viera MD - 11/14/2023 9:18 AM CST Chief Complaint Patient presents with ??? Actinic Keratosis Spots on forehead HPI: Frandy Alvares a 88 year old male presents for skin exam. 05/05/2020 (Dr. Kelley) Concerns: 1. Scaly spots on forehead present for months, no other symptoms, treatments, or evolution Allergies and medications were reviewed and verified. Past medical history, social history and family history were reviewed. ROS: As per HPI above. Patient denies fever, chills and night sweats. 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 Mood clear/affect appropriate. Alert and oriented. Mucous membranes moist. Sclera anicteric. Visible skin exam was conducted to include the scalp, face, lips/teeth, lids/conjunctiva, ears, neck, right and left hands and forearms and was normal with the following exceptions: - gritty pink macules located FH X4, L DH X2, R DH X2 - Well healed scar at site of previous skin cancer surgery, NER A/P: Frandy was seen today for lesions. Diagnoses and all orders for this visit: Actinic keratosis - PROC DESTRUCTION OF PRE-MALIGNANT LESIONS - Discussed premalignant potential - Fully reviewed treatment options with patient including indications, risks, benefits, alternatives to LN2 - Cryo x ALL lesions; 5-7 second freeze time x 1 cycle [...] for broadband UV on label RTC in 12 months for FBSE Lincoln Viera MD Dermatology Resident, PGY-4 ET PLACER documented in this encounter Procedure Notes * Lincoln Viera MD - 11/14/2023 2:53 PM CSTAssociated Order(s): PROC DESTRUCTION OF PRE-MALIGNANT LESIONS Procedure(s): AK DESTROY PREMALIG LESION, 1ST LESION; AK DESTROY PREMALIG LESION, 2-14 Pre-Procedure Diagnose(s): Actinic keratosis Diagnosis and treatment options discussed. Cryotherapy (Liquid Nitrogen) to 8 lesion(s) for 5-7 seconds each. Number of cycles: 1. Wound care reviewed. Location: X4, L X2, R X2 Lincoln Viera MD Dermatology PGY-4 ET PLACER Associated attestation - Diana Odom MD - 11/15/2023 12:21 PM MAGNET PLACER A procedure was performed. I was present for the entire procedure. See procedure note. Diana Odom MD documented in this encounter Plan of Treatment Upcoming Encounters Date Type Department Care Team (Late st Contact Info) Description 10/09/2024 11:30 AM MAGNET PLACER Office Visit [facility] - Dermatology [address] [place] [phone] Katharine Bar MD [address] [place] [address] [address] [place] [phone] 11/19/2024 8:30 AM MAGNET PLACER Office Visit [facility] - Dermatology [address] [place] [phone] Patricia Jarvis MD [address] [place] [address] 11/22/2024 8:00 AM MAGNET PLACER Office Visit [facility] - Neurology [address] [place] [phone] Chay Nieves MD [address] [place] [address] documented as of this encounter Procedures Procedure Name Priority Date/Time Associated Diagnosis Comments AK DESTROY PREMALIG LESION, 1ST LESION Routine 11/14/2023 2:53 PM MAGNET PLACER Actinic keratosis AK DESTROY PREMALIG LESION, 2-14 Routine 11/14/2023 2:53 PM MAGNET PLACER Actinic keratosis documented in this encounter Results * AK DESTROY PREMALIG LESION, 2-14, AK DESTROY PREMALIG LESION, 1ST LESION (11/14/2023 2:53 PM MAGNET PLACER) Narrative Diana Odom MD - 11/14/2023 2:53 PM MAGNET PLACER Lincoln Viera MD ? 11/14/2023 ??2:54 PM Diagnosis and treatment options discussed. Cryotherapy (Liquid Nitrogen) to 8 ??lesion(s) for 5-7 seconds each. Number of cycles: 1. Wound care reviewed. Location: X4, L X2, R X2 Lincoln Viera MD Dermatology PGY-4 Diana Odom MD PROCEDURE/MINOR SANTO RGICAL ORDERABLES documented in this encounter Visit Diagnoses Diagnosis Actinic keratosis- Primary History of SCC (squamous cell carcinoma) of skin Personal history of other malignant neoplasm of skin Solar lentiginosis Other dyschromia documented in this encounter Care Teams Stretcher Drier Operator Relationship Specialty Start Date End Date Bao Pierre MD PCP - General Internal Medicine 07/09/17 documented as of this encounter
--- OUTSIDE RECORDS SUMMARY | 2024-10-01 08:40 | XMS_ITS | Encounter Summary ---
Author Organization [facility] Address [address] [place] [address] Care Team Providers Care Forensic Dna Analyst Name Role Phone Bao Pierre MD Primary Care Provider [phone] Encounter Details Date Type Department Care Team (Late st Contact Info) Description 07/08/2024 [facility] [address] [facility] [address] [place] [address] Alma Ramos Social History Tobacco Use Types Packs/Day Years Used Date Smoking Tobacco: Former Pipe 1 966 - 10/02/2013 Smokeless Tobacco: Never Comments:5-6 times a day Alcohol Use Standard Drinks/Week Comments No 0 (1 standard drink = 0.6 oz pur e alcohol) AUDIT-C Answer Date Recorded Q1: How often do you have a drink containing alc ohol? Never 09/13/2021 Average Number of Drinks Not on file 021 Frequency of Binge Drinking Not on file 09/01 PHQ-2 Answer Date Recorded PHQ-2 Score 0 05/24/2019 Sex and Gender Information Value Date Recorded Sex Assigned at Not on file Legal Sex Male 9:[address] OPERATOR HOT MIX Gender Identity Not on file Sexual Orientation Straight 10/15/2019 10 :[address]LLER OPERATOR HOT MIX documented as of this encounter Miscellaneous Notes * Telephone Encounter - Alma Ramos - 07/08/2024 11:04 AM CDT Pt friend aware. * Telephone Encounter - RachelNikira - 07/08/2024 9:29 AM CDT Pt friend calls and states that the medication ( Zofran 4 mg ) that was prescribes to him is helping just a little bit with is nausea. Pt friend is asking for an increase of the dosage or can the pt come in to be seen? documented in this encounter Plan of Treatment Not on file documented as of this encounter Goals Goal Patient Goal Type Associated Problems Recent Progress Patient-Stated? Author CCM Chronic Pain Care Plan Chronic Care Management Worsening( 8:[address] OPERATOR HOT MIX) Chiak Tracy, RN Note: Problem: Chronic Pain Goals: 1. Minimize further functional decline 2. Maximize quality of life 3. Control pain Strategies: - Activity/exercise program recommendation - Conservative stepwise pain medicine strategy with multi-disciplinary approach - Recommend healthy lifestyle strategies and compensatory methods as needed documented as of this encounter Visit Diagnoses Not on filedocumented in this encounter Care Teams Forensic Dna Analyst Relationship Specialty Start Date End Date Bao Pierre MD [address] [address] PCP - General 12/22/16 documented as of this encounter
--- OUTSIDE RECORDS SUMMARY | 2024-10-01 08:40 | XMS_ITS | Encounter Summary ---
Author Organization [facility] Address [address] [place] [address] Care Team Providers Care Cut Off Machine Unloader Name Role Phone Bao Pierre MD Primary Care Provider [phone] Reason for Visit * Reason Onset Date Comments Joint Swelling 07/18/2024 Right elbow Encounter Details Date Type Department Care Team (Late st Contact Info) Description 07/18/2024 [facility] [address] [facility] [address] [place] [address] Bao Pierre MD [address] [facility] [address] [place] [address] Joint Swelling (Right elbow ) Social History Tobacco Use Types Packs/Day Years [...] on file Legal Sex Male 9:03 PM STEREOTYPE MOLDER Gender Identity Not on file Sexual Orientation Straight 10/15/2019 10 :34 PM STEREOTYPE MOLDER documented as of this encounter Miscellaneous Notes * Telephone Encounter - Judy Saldaña CMA - 07/18/2024 11:51 AM CDT Patient son states that the patient has injured himself. Unsure of how. Patient is currently with Shayy- whom is his caregiver. Patient was seen at urgent Care [facility] [place] and he was instructed to go to [place] to have an xray of the right elbow. Right elbow is currently swollen.I instructed the patient to have the xry performed and notify our office once completed documented in this encounter Plan of Treatment Not on file documented as of this encounter Goals Goal Patient Goal Type Associated Problems Recent Progress Patient-Stated? Author CCM Chronic Pain Care Plan Chronic Care Management Worsening( 8:02 AM STEREOTYPE MOLDER) Chika Tracy, RN Note: Problem: Chronic Pain Goals: 1. Minimize further functional decline 2. Maximize quality of life 3. Control pain Strategies: - Activity/exercise program recommendation - Conservative stepwise pain medicine strategy with multi-disciplinary approach - Recommend healthy lifestyle strategies and compensatory methods as needed documented as of this encounter Procedures Procedure Name Priority Date/Time Associated Diagnosis Comments SCAN - RADIOLOGY/IMAGING 07/18/2024 3:33 PM CDT documented in this encounter Results * SCAN - RADIOLOGY/IMAGING (07/18/2024 3:33 PM CDT) Anatomical Region Laterality Modality Other Bao Pierre MD Final Result documented in this encounter Visit Diagnoses Not on filedocumented in this encounter Care Teams Cut Off Machine Unloader Relationship Specialty Start Date End Date Bao Pierre MD [address] [address] PCP - General 12/22/16 documented as of this encounter
--- OUTSIDE RECORDS SUMMARY | 2024-10-01 08:40 | XMS_ITS | Encounter Summary ---
Author Organization [facility] Address [address] [place] [address] Care Team Providers Care Satellite Television Installer Name Role Phone Bao Pierre MD Primary Care Provider Encounter Details Date Type Department Care Team (Late st Contact Info) Description 08/20/2024 [facility] [address] [facility] [address] [place] [id number] Bao Pierre MD [address] [facility] [address] [place] [address] Social History Tobacco Use Types Packs/Day Years [...] on file Legal Sex Male 9:03 PM DESIGN AGENT Gender Identity Not on file Sexual Orientation Straight 10/15/2019 10 :34 PM DESIGN AGENT documented as of this encounter Ordered Prescriptions Prescription Sig Dispense Quantity Refills Last Filled Start Date End Date QUEtiapine (SEROquel) 25 mg tablet Take one full tablet in morning and one half tablet in pm 45 tablet 1 08/20/2024 documented in this encounter Miscellaneous Notes * Telephone Encounter - Aruna Almaraz CMA - 08/20/2024 11:34 AM CST Rx sent GN AGENT * Telephone Encounter - Aruna Almaraz CMA - 08/20/2024 9:32 AM CST Shayy marilynn ([place]) calling for pt son Frandy He increase Seroquel to full tab in am and 1/2 tab in pm and it is working Asking for new script with directions Jewels GN AGENT documented in this encounter Plan of Treatment Not on file documented as of this encounter Goals Goal Patient Goal Type Associated Problems Recent Progress Patient-Stated? Author CCM Chronic Pain Care Plan Chronic Care Management Worsening( 8:02 AM DESIGN AGENT) No Chika Watters, RN Note: Problem: Chronic Pain Goals: 1. Minimize further functional decline 2. Maximize quality of life 3. Control pain Strategies: - Activity/exercise program recommendation - Conservative stepwise pain medicine strategy with multi-disciplinary approach - Recommend healthy lifestyle strategies and compensatory methods as needed documented as of this encounter Visit Diagnoses Not on filedocumented in this encounter Discontinued Medications Medication Sig Discontinue Reason Start Date End Da te QUEtiapine (SEROquel) 25 mg tablet TAKE 1/2 TABLET(12.5 MG) BY MOUTH TWICE DAILY Reorder 07/19/2024 08/20/2024 documented as of this encounter Care Teams Satellite Television Installer Relationship Specialty Start Date End Date Bao Pierre MD [id number] [place] [address] PCP - General 12/22/16 documented as of this encounter
--- OUTSIDE RECORDS SUMMARY | 2024-10-01 08:40 | XMS_ITS | Encounter Summary ---
Author Organization [facility] Address [address] [place] [address] Care Team Providers Care Fuel Efficient Automobile Designer Name Role Phone Bao Pierre MD Primary Care Provider [phone] Encounter Details Date Type Department Care Team (Late st Contact Info) Description 07/03/[address] [facility] [address] [facility] [address] [place] [phone] Bao Pierre MD [address] [facility] [address] [place] [address] Social History Tobacco Use Types [...] on file Legal Sex Male 9:03 PM MANUFACTURER Gender Identity Not on file Sexual Orientation Straight 10/15/2019 10 :34 PM MANUFACTURER documented as of this encounter Ordered Prescriptions Prescription Sig Dispense Quantity Refills Last Filled Start Date End Date ondansetron (ZOFRAN) 4 mg tablet Take 1 tablet (4 mg total) by mouth every 8 (eight) hours as needed for nausea or vomiting 20 tablet 07/03/2024 4 documented in this encounter Miscellaneous Notes * Telephone Encounter - Aruna Almaraz MA - 07/03/2024 10:19 AM CDT Shayy aware and rx sent * Telephone Encounter - Aruna Almaraz MA - 07/03/2024 9:39 AM CDT Shayy calling States pt is nauseated in the mornings for the past 2 weeks In afternoon it eases up No diarrhea or vomiting or Temp Asking for something for this Pharmacy [facility] documented in this encounter Plan of Treatment Not on file documented as of this encounter Goals Goal Patient Goal Type Associated Problems Recent Progress Patient-Stated? Author CCM Chronic Pain Care Plan Chronic Care Management Worsening( 8:02 AM MANUFACTURER) Chika Tracy, RN Note: Problem: Chronic Pain Goals: 1. Minimize further functional decline 2. Maximize quality of life 3. Control pain Strategies: - Activity/exercise program recommendation - Conservative stepwise pain medicine strategy with multi-disciplinary approach - Recommend healthy lifestyle strategies and compensatory methods as needed documented as of this encounter Visit Diagnoses Not on filedocumented in this encounter Care Teams Fuel Efficient Automobile Designer Relationship Specialty Start Date End Date Bao Pierre MD [address] [address] PCP - General 12/22/16 documented as of this encounter
--- OUTSIDE RECORDS SUMMARY | 2024-10-01 08:40 | XMS_ITS | CONTINUITY OF CARE DOCUMENT ---
Author Name keyonna newby Address Unknown Organization [facility] Address [address] [facility] [address] [place] [address] Phone [phone] Care Team Providers Care Check Scaler Name Role Phone Rocío Bridges MD Unavailable JULIETTE JORGE MD Unavailable JULIETTE JORGE MD Unavailable PROBLEMS Condition Status Date Provider Notes PREMATURE ATRIAL CONTRACTIONS active Facundo Bridges MD AMI INFERIOR WALL active Rocío Bridges MD HYPERTENSION active Rocío Bridges MD ENCOUNTERS Date Type Provider Location Encounter Diag nosis - In-person encounter Office Visit Rocío Bridges MD [place] [facility] PREMATURE ATRIAL CONTRACTIONS - In-person encounter Office Visit Rocío Bridges MD [place] HYPERTENSIONAMI INFERIOR WALL VITAL SIGNS Date Observation Value Provider Body Mass Index (Ratio) 30.84 kg/m2 Mable Owens blood pressure, diastolic 100 mm[Hg] Jaime Owens blood pressure, systolic 164 mm[Hg] Alexandro Owens pulse rate 55 /min Beatriz Owens oxygen saturation, oximetry 98 % Beatriz Owens respiratory rate E&M 16 /min Beatriz jones weight E&M 226.6 [lb_av] Beatriz Owens Body Mass Index (Ratio) 30.76 kg/m2 Annette Pop blood pressure, diastolic 88 mm[Hg] [facility] blood pressure, systolic 144 mm[Hg] Mango Simmonsclovis pulse rate 58 /min Blanka Corona [facility] oxygen saturation, oximetry 98 % Blanka Pop respiratory rate E&M 15 /min Blanka hillanalizette weight E&M 226 [lb_av] Blanka Corona [facility] height E&M 72 [in_i] Blanka Corona [facility] ALLERGIES No Known Drug Allergies RESULTS Date Observation Value Provider Reference Range Interpretation Location international normalized ratio (INR) 1.0 [place] platelet count 149 10*3/[facility] hematocrit, blood 44.3 % [place] B-type natriuretic peptide 35.2 pg/mL [facility] alanine aminotransferase (SGPT), serum 24 1/L [facility] 9-46 Normal aspartate aminotransferase (SGOT), serum 20 1/L [facility] 10-35 Normal alkaline phosphatase, serum 56 1/L [facility] 40-115 Normal bilirubin, serum, total 0.4 mg/dL [facility] 0.2-1.2 Normal albumin/globulin ratio, serum 2.0 (calc) [facility] 1.0-2.5 Normal globulins, serum, total 2.2 G/DL (CALC) [facility] 1.9-3.7 Normal albumin, serum 4.5 g/dL [facility] 3.6-5.1 Normal protein, total, serum 6.7 g/dL [facility] 6.1-8.1 Normal calcium, serum 9.0 mg/dL [facility] 8.6-10.3 Normal carbon dioxide, venous blood 26 mmol/L [facility] 19-30 Normal chloride, serum 102 mmol/L [facility] 98-110 Normal potassium, serum 4.6 mmol/L [facility] 3.5-5.3 Normal sodium, serum 139 mmol/L [facility] 135-146 Normal urea nitrogen/creatinine ratio, serum NOT APPLICABLE (calc) [facility] 6-22 Estimated Glomerular Filtration Rate (calc) 83 mL/min/{1.73_ m2} [facility] > OR = 60 Normal creatinine, serum 1.01 mg/dL [facility] 0.70-1.18 Normal urea nitrogen, blood 22 mg/dL [facility] 7-25 Normal blood glucose, random 99 mg/dL [facility] 65-99 Normal HISTORY OF MEDICATION USE Medication Status Instructions Dates Provider Indications Com ments LISINOPRIL-HYDR OCHLOROTHIAZIDE 10-12.5 MG ORAL TABLET active 1 tab daily Beatriz Owens POTASSIUM GLUCONATE 550 MG ORAL TABLET active take one pill as needed 3 Blanka Pop ALEVE CAPSULE active take as needed 3 Blanka Pop NIACIN 500 MG ORAL TABLET active take one pill twice a day 3 Blanka Pop ADULT ASPIRIN EC LOW STRENGTH 81 MG ORAL TABLET DELAYED RELEASE active take one pill a day 3 Blanka Pop GLUCOSAMINE CAPSULE active take 2 pills a day 3 Blanka Pop FIBER active take 2 pills a day 3 Blanka Pop SOCIAL HISTORY Date Observation Value Provider social history reviewed E&M reviewed Brian Huff RN social history E&M Marital Statu s: L ernestine with family/friends Rocío Bridges MD social history reviewed E&M reviewed Rocío Bridges MD drug use no Blanka Corona lder passive cigarette sm paulo exposure no Blanka Pop smoking/tobacco cess ation, patient education and counseling yes Blanka Pop smoking, date started 1972 Blanka Pop cigar use yes Blanka Cj lder smoking status current every day smoker K marifer Kiesha INSURANCE PROVIDERS Payer name Policy type / Coverage type [employer] party ID [place] [employer] Medicare [id number] TREATMENT PLAN Date Name Holter Monitor 24 Hr COMPREHENSIVE METABO LIC PANEL W/EGFR Cardiac Cath - Left - [facility] HISTORY OF PROCEDURES Procedure Date Procedure Name Provider Procedure Notes S tatus Schedule Followup Rocío Bridges MD fu 1 yea r with SK completed EKG Rocío Bridges MD comp leted EKG Rocío Bridges MD comp leted
--- OUTSIDE RECORDS SUMMARY | 2024-10-01 08:40 | XMS_ITS | Encounter Summary ---
Author Organization [facility] Address [address] [place] [address] Care Team Providers Care Audio Installer Name Role Phone Bao Pierre MD Primary Care Provider [phone] Encounter Details Date Type Department Care Team (Late st Contact Info) Description 09/09/2024 [facility] [address] [facility] [address] [place] [address] Bao Pierre MD [address] [facility] [address] [place] [address] Social History Tobacco Use Types [...] on file Legal Sex Male 9:03 PM PATIENT ACCESS DIRECTOR Gender Identity Not on file Sexual Orientation Straight 10/15/2019 10 :34 PM PATIENT ACCESS DIRECTOR documented as of this encounter Miscellaneous Notes * Telephone Encounter - Renetta Betts - 09/10/2024 7:39 AM PATIENT ACCESS DIRECTOR Pt's son notified and voiced understanding. He was given number and will call ENT ACCESS DIRECTOR * Telephone Encounter - Bao Pierre MD - 09/09/2024 4:30 PM CST Yes, can you ask his son to call me? [phone] is my cell. ENT ACCESS DIRECTOR * Telephone Encounter - Renetta Betts - 09/09/2024 2:30 PM PATIENT ACCESS DIRECTOR Pt's son is calling in pt is in the hospital for third week he is in the hospital. Pt did come up but it was less than 24 hours that he was home. 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 ENT ACCESS DIRECTOR documented in this encounter Plan of Treatment Not on file documented as of this encounter Goals Goal Patient Goal Type Associated Problems Recent Progress Patient-Stated? Author CCM Chronic Pain Care Plan Chronic Care Management Worsening( 8:02 AM PATIENT ACCESS DIRECTOR) Chika Tracy, NIKKIE Note: Problem: Chronic Pain Goals: 1. Minimize further functional decline 2. Maximize quality of life 3. Control pain Strategies: - Activity/exercise program recommendation - Conservative stepwise pain medicine strategy with multi-disciplinary approach - Recommend healthy lifestyle strategies and compensatory methods as needed documented as of this encounter Visit Diagnoses Not on filedocumented in this encounter Care Teams Audio Installer Relationship Specialty Start Date End Date Bao Pierre MD [address] [address] PCP - General 12/22/16 documented as of this encounter
--- OUTSIDE RECORDS SUMMARY | 2024-10-01 08:40 | XMS_ITS | Encounter Summary ---
Author Organization [facility] Address [address] [place] [address] Care Team Providers Care Software Engineering Specialist Name Role Phone Bao Pierre MD Primary Care Provider [phone] Reason for Visit * Reason Onset Date Comments Constipation 07/19/2024 Encounter Details Date Type Department Care Team (Late st Contact Info) Description 07/19/2024 [facility] [address] [facility] [address] [facility] [place] [address] Bao Pierre MD [address] [facility] [address] [place] [address] Constipation Social History Tobacco Use Types Packs/Day Years [...] on file Legal Sex Male 9:03 PM MICROCHIP SPECIALIST Gender Identity Not on file Sexual Orientation Straight 10/15/2019 10 :34 PM MICROCHIP SPECIALIST documented as of this encounter Miscellaneous Notes * Telephone Encounter - Renetta Betts - 07/19/2024 11:12 AM CDT Pt's caregiver notified and voiced understanding. * Telephone Encounter - RoxaneRenetta May - 07/19/2024 10:54 AM CDT Pt's housekeeper child care calling, pt has been having problems with constipation. Said that pt has not have aBM in a little over 2 days. Said that pt is having pressure like he needs to have a BM but nothing is coming out. He is saying his stomach just feels uneasy, but has been saying this for well over a month. She was calling to see what should could give pt that was OTC to help with constipation. She didn't want it to interfere with his other medications. documented in this encounter Plan of Treatment Not on file documented as of this encounter Goals Goal Patient Goal Type Associated Problems Recent Progress Patient-Stated? Author CCM Chronic Pain Care Plan Chronic Care Management Worsening( 8:02 AM MICROCHIP SPECIALIST) Chika Tracy, RN Note: Problem: Chronic Pain Goals: 1. Minimize further functional decline 2. Maximize quality of life 3. Control pain Strategies: - Activity/exercise program recommendation - Conservative stepwise pain medicine strategy with multi-disciplinary approach - Recommend healthy lifestyle strategies and compensatory methods as needed documented as of this encounter Visit Diagnoses Not on filedocumented in this encounter Care Teams Software Engineering Specialist Relationship Specialty Start Date End Date Bao Pierre MD [address] [address] PCP - General 12/22/16 documented as of this encounter
--- OUTSIDE RECORDS SUMMARY | 2024-10-01 08:40 | XMS_ITS | Encounter Summary ---
Author Organization [facility] Address [address] [place] [address] Care Team Providers Care Assistant Professor Name Role Phone Bao Pierre MD Primary Care Provider [phone] Reason for Visit * Reason Onset Date Comments Spoke With Home Health Provider 09/05/2024 Encounter Details Date Type Department Care Team (Late st Contact Info) Description 09/05/2024 [facility] [address] [facility] [address] [facility] [place] [address] Bao Pierre MD [address] [facility] [address] [place] [address] Spoke With Home Health Provider Social History Tobacco Use Types Packs/Day Years [...] on file Legal Sex Male 9:03 PM 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 Gender Identity Not on file Sexual Orientation Straight 10/15/2019 10 :34 PM MILLER SUPERVISOR documented as of this encounter Miscellaneous Notes * Telephone Encounter - Aruna Almaraz CMA - 09/09/2024 1:50 PM CST Eva aware ER SUPERVISOR * Telephone Encounter - Bao Pierre MD - 09/09/2024 10:40 AM CST YES ER SUPERVISOR * Telephone Encounter - Aruna Almaraz CMA - 09/09/2024 9:35 AM CST [facility] again asking if you will follow ER SUPERVISOR * Telephone Encounter - Renetta Betts - 09/05/2024 8:19 AM MILLER SUPERVISOR Eva with [facility] calling, pt is being [facility] today and home healthis ordered for RN, PT/OT. DX [facility] hematoma CB [phone] ER SUPERVISOR documented in this encounter Plan of Treatment Not on file documented as of this encounter Goals Goal Patient Goal Type Associated Problems Recent Progress Patient-Stated? Author CCM Chronic Pain Care Plan Chronic Care Management Worsening( 8:02 AM MILLER SUPERVISOR) No Chika Watters, RN Note: Problem: Chronic Pain Goals: 1. Minimize further functional decline 2. Maximize quality of life 3. Control pain Strategies: - Activity/exercise program recommendation - Conservative stepwise pain medicine strategy with multi-disciplinary approach - Recommend healthy lifestyle strategies and compensatory methods as needed documented as of this encounter Visit Diagnoses Not on filedocumented in this encounter Care Teams Assistant Professor Relationship Specialty Start Date End Date Bao Pierre MD [address] [address] PCP - General 12/22/16 documented as of this encounter
--- OUTSIDE RECORDS SUMMARY | 2024-10-01 08:40 | XMS_ITS | Referral Summary ---
Author Organization [facility] Address [address] [place] [address] Care Team Providers Care Campground Caretaker Name Role Phone Bao Pierre MD Primary Care Provider [phone] Encounters Date Type Department Care Team Description 09/25/2024 Orders Only [facility] [address] [address] Bao Pierre MD 09/09/2024 [facility] [address] [address] Bao Pierre MD 09/05/2024 [facility] [address] [address] Bao Pierre MD Spoke With Home Health Provider 08/20/2024 [facility] [address] [place] [address] Bao Pierre MD 07/19/2024 [facility] [address] [address] Bao Pierre MD Constipation 07/18/2024 [facility] [address] [address] Bao Pierre MD Joint Swelling (Right elbow ) 07/08/2024 [facility] [address] [facility] [address] [place] [address] Alma Ramos 07/03/2024 [facility] [address] [facility] [address] [place] [address] Bao Pierre MD from Last 3 Months Allergies Active Allergy Reactions Criticality Noted Date Comments Epinephrine Syncope,Dizziness High 12/28/2015 Medications glucosamine-cho ndroitin 500-400 mg tablet Take 1 tablet by mouth daily Active aspirin 81 mg enteric coated tablet Take 1 tablet (81 mg total) by mouth daily Active ascorbic acid-vitamin E-biotin 7.5-7.5-1,250 mg-unit-mcg tablet,chewable Take by mouth 2 (two) times a day Active triamcinolone (KENALOG) 0.1 % cream Apply topically 2 (two) times a day 30 g 1 3 Active fluticasone propionate (FLONASE) 50 mcg/actuation nasal spray Administer 2 sprays into each nostril daily 1 each 1 4 Active donepeziL (ARICEPT) 10 mg tabletIndicatio ns:Mild to Moderate Alzheimer's Type Dementia Take 1 tablet (10 mg total) by mouth nightly 90 tablet 4 04/18/20 25 Active escitalopram (LEXAPRO) 10 mg tabletIndicatio ns:Anxiety with Depression Take 1 tablet (10 mg total) by mouth daily 30 tablet 5 4 11/19/19 25 Active ondansetron (ZOFRAN) 4 mg tablet TAKE 1 TABLET(4 MG) BY MOUTH EVERY 8 HOURS NEEDED FOR NAUSEA OR VOMITING 20 tablet 4 Active hydrOXYzine (ATARAX) 25 mg tablet TAKE 1 TABLET(25 MG) BY MOUTH TWICE DAILY 60 tablet 3 4 Active QUEtiapine (SEROquel) 25 mg tablet Take one full tablet in morning and one half tablet in pm 45 tablet 1 4 Active Active Problems Problem Noted Date Diagnosed Date Chronic left shoulder pain 03/08/2022 Assessment & Plan (08/22/2023 10:05 AM SKIING INSTRUCTOR): Ortho referral Assessment & Plan (03/25/2022 9:04 AM CDT): Will rule out an polymyalgia rheumatica check CBC sed rate and CRP also CMP. Doubt very much that this is cardiac illness. Do not think he should delay his tooth surgery while we are evaluating his shoulder pain. Assessment & Plan (03/08/2022 11:22 AM CDT): Scheduled APAP twice daily Xray If not improving would consider PT and/or US Dysfunction of both eustachian tubes 03/08/2022 Assessment & Plan (03/08/2022 11:22 AM CDT): Nasal sprays Memory difficulties 08/13/2021 Assessment & Plan (04/18/2024 11:23 AM CDT): Discussed at length. I feel he has worsening dementia. Advised not to drive certainly not without assistance. Will increase donepezil 10 mg daily. Check labs. Assessment & Plan (08/22/2023 10:03 AM SKIING INSTRUCTOR): Ok to take aricept in AM as no one is there to administer in PM Will trial escitalopram 5mg with evening meal before help leaves, reach out in 4-6 weeks with condition update Atarax PRN Chronic middle ear effusion, left 09/09/2020 Assessment & Plan (09/09/2020 4:42 PM SKIING INSTRUCTOR): Nasal sprays and OTC allergy meds daily As pain seems to worsen overnight advised to elevated HOB to see if this alleviates symptoms No oral steroids given today given patient denies any improvement with prior steroids Lumbago 08/05/2019 Neoplasm of uncertain behavior of skin 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 See note from [facility]--12/2014. MRI report there also MRI 10/2012 Severe spinal stenosis L1-2, L4-5, Moderate stenosis L3-4 and L2-3, Severe foraminal narrowing L1-2, L3-4, and L2-3 Diffuse disc bulging all levels Spinal stenosis 02/20/2015 Overview (08/13/2021): Overview: Mod-severe. See note from [facility]--12/2014. MRI report there also MRI 10/2012 Severe spinal stenosis L1-2, L4-5, Moderate stenosis L3-4 and L2-3, Severe foraminal narrowing L1-2, L3-4, and L2-3 Diffuse disc bulging all levels Herniated lumbar intervertebral disc 01/17/2015 Spondylosis of lumbar region without myelopathy or radiculopathy 01/17/2015 History of SCC (squamous cell carcinoma) of skin 01/13/2014 Premature atrial contractions 10/18/2013 Acute myocardial infarction of other inferior wall, initial episode of care 09/13/2013 02/28/2023 Arthritis 09/09/2011 Hypertension 09/09/2011 Assessment & Plan (04/18/2024 11:23 AM CDT): BP at target. 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 09/13/2013 03/08/2022 Sprain of rotator cuff capsule 07/28/2010 03/08/2022 Immunizations Name Administration Dates Next Due Influenza, Quad, Adjuvantate d, Intramuscular 08/07/2021 Influenza, Quadrivalent, Spl it, Preservative Free, Intramuscular 07/01/2019,07/01/2019,07/31/2018 Influenza, Trivalent, High D ose, Split, Preservative Free, Intramuscular 06/18/2020,07/09/2017,07/09/2017,07/09,08/11/2016,09/06/2012 Influenza, Trivalent, IM (MDV) 07/18/2014,2013,07/05/2013 Influenza, Unspecified 06/18/2020,2018,08/02/2019,07/09,08/11/2016,07/02/2016,07/11/2015 ,07/02/2014,07/05/2013,06/27/2011,10/2009,07/02/2009,09/02/2008, 7,06/02/2006,08/19/2003,07/11/2001 Moderna SARS-CoV-2 Monovalen t Vaccination (12+ YRS) 08/07/2021,12/20/2020,11/22/2020 Pneumococcal Conjugate PCV 13 03/04/2015 Pneumococcal, Unspecified 03/02/2004,10/04/2002 ZOSTER LIVE 12/01/2007 Social History Tobacco Use Types Packs/Day Years Used Date Smoking Tobacco: Former Pipe 1 966 - 10/02/2013 Smokeless Tobacco: Never Tobacco Cessation:Counseling Given: Not Answered Comments:5-6 times a day Alcohol Use Standard [...] on file Legal Sex Male 9:03 PM SKIING INSTRUCTOR Gender Identity Not on file Sexual Orientation Straight 10/15/2019 10 :34 PM SKIING INSTRUCTOR Last Filed Vital Signs Vital Sign Reading Time Taken Comments Blood Pressure 134/71 05/23/2024 1:24 PM CDT Pulse 61 05/23/2024 1:24 PM CDT Temperature 36.8 ??C (98.2 ??F) 02/07/2024 10:15 AM C DT Respiratory Rate 13 09/13/2021 9:37 AM SKIING INSTRUCTOR Oxygen Saturation 97% 02/07/2024 10:15 AM CDT Inhaled Oxygen Concentration - - Weight 78.9 kg (174 lb) 05/23/2024 1:24 PM CDT Height 170.2 cm (5' 7 ) 05/23/2024 1:24 PM CDT Body Mass Index 27.25 05/23/2024 1:24 PM CDT Plan of Treatment Not on file Goals Goal Patient Goal Type Associated Problems Recent Progress Patient-Stated? Author CCM Chronic Pain Care Plan Chronic Care Management Worsening( 8:02 AM SKIING INSTRUCTOR) No Chika Watters, RN Note: Problem: Chronic Pain Goals: 1. Minimize further functional decline 2. Maximize quality of life 3. Control pain Strategies: - Activity/exercise program recommendation - Conservative stepwise pain medicine strategy with multi-disciplinary approach - Recommend healthy lifestyle strategies and compensatory methods as needed Medical Devices Implanted Type Area Plant Puller Device Identifier Shelf Expiration Date Model / Serial / Lot [employer] [id number] System Coronary Stent Xience Henny Everolimus L38 Mm Od2.5 Mm Rapid Exchange - [id number] Implanted:Qty: 1 on 12/03/2019 by Irina James MD at [facility] Stent [employer] 07/10/2020 [id number] / / [employer] [id number] Trilogy 60mm Primary Cluster Hole Hip Shell Acetabular Tivanium - S0. - [id number] Implanted:Qty: 1 on 05/28/2018 by Hilary Liang MD at [facility] Left: Hip [employer] [id number] 03/01/2028 [id number] / 0. / [id number] [employer] [id number] Trilogy 6.5mm 40mm Self Tap Hip Acetabular Cortical Screw Bone - S0. - [id number] Implanted:Qty: 1 on 05/28/2018 by Hilary Liang MD at [facility] Left: Hip [employer] [id number] 03/01/2028 [id number] / 0. / [id number] [employer] [id number] Trilogy 6.5mm 30mm Self Tap Acetabular Cortical Screw Bone - [id number] Implanted:Qty: 1 on 05/28/2018 by Hilary Liang MD at [facility] Left: Hip [employer] [id number] 05/01/2028 [id number] / / [id number] [employer] [id number] Trilogy 60mm 36mm 9.9mm Primary Modular Cup Liner Hip Standard - S0. - [id number] Implanted:Qty: 1 on 05/28/2018 by Hilary Liang MD at [facility] Left: Hip [employer] [id number] 03/01/2023 [id number] / 0. / [id number] [employer] [id number] Versys 16mm 160mm Primary Collar Alignment Guide Hip 45mm - S0. - [id number] Implanted:Qty: 1 on 05/28/2018 by Hilary Liang MD at [facility] Left: Hip [employer] [id number] 12/30/2024 [id number] / 0. / [id number] [employer] [id number] Trilogy It 36mm Hip Acetabular +0mm 12/14 Medium Head Femoral - S0. - [id number] Implanted:Qty: 1 on 05/28/2018 by Hilary Liang MD at [facility] Left: Hip [employer] [id number] 12/31/2027 [id number] / 0. / [id number] [employer] [id number] Angio-Seal Evolution 6fr .035in Guidewire Bypass Tube Suture - [id number] Implanted:Qty: 1 on 12/03/2019 by Irina James MD at [facility] [employer] 07/01/2020 [id number] / / [id number] Procedures Procedure Name Priority Date/Time Associated Diagnosis Comments SCAN - LABS 09/27/2024 7:28 PM SKIING INSTRUCTOR SCAN - LABS 09/27/2024 5:07 PM SKIING INSTRUCTOR SCAN - LABS 09/27/2024 4:49 PM SKIING INSTRUCTOR SCAN - LABS 09/27/2024 4:30 PM SKIING INSTRUCTOR SCAN - LABS 09/27/2024 4:25 PM SKIING INSTRUCTOR SCAN - LABS 09/27/2024 4:25 PM SKIING INSTRUCTOR SCAN - RADIOLOGY/IMAGING 09/25/2024 7:19 AM SKIING INSTRUCTOR SCAN - RADIOLOGY/IMAGING 07/18/2024 3:33 PM CDT from Last 3 Months Results * SCAN - LABS (09/27/2024 7:28 PM SKIING INSTRUCTOR) us Bao Pierre MD Final Result * SCAN - LABS (09/27/2024 5:07 PM SKIING INSTRUCTOR) us Bao Pierre MD Final Result * SCAN - LABS (09/27/2024 4:49 PM SKIING INSTRUCTOR) us Bao Pierre MD Final Result * SCAN - LABS (09/27/2024 4:30 PM SKIING INSTRUCTOR) us Bao Pierre MD Final Result * SCAN - LABS (09/27/2024 4:25 PM SKIING INSTRUCTOR) us Bao Pierre MD Final Result * SCAN - LABS (09/27/2024 4:25 PM SKIING INSTRUCTOR) Result Randolph Pierre MD Final Result * SCAN - RADIOLOGY/IMAGING (09/25/2024 7:19 AM SKIING INSTRUCTOR) Anatomical Region Laterality Modality Other Result Randolph Pierre MD Final Result * SCAN - RADIOLOGY/IMAGING (07/18/2024 3:33 PM CDT) Anatomical Region Laterality Modality Other Result Randolph Pierre MD Final Result from Last 3 Months Insurance MEDICARE [facility] MEDICARE [facility] CHOICE Member Subscriber Plan / Payer (Ef fective 2019-Present) Name:Frandy Alvares Relation to Subscriber:Self Name:Frandy Alvares Payer ID:[id number] (NAIC) Type: [employer] Address: [address] [facility] [place] [address] MEDICARE [facility] MEDICARE Advance Directives For more information, please contact: [phone] * Full Code (Latest Code Status on File) Date Activated Date Inactivated Comments 12/03/2019 12:18 PM 12/03/2019 7:17 PM * Full Code Date Activated Date Inactivated Comments 05/28/2018 12:23 PM 05/29/2018 4:31 PM Care Teams Campground Caretaker Relationship Specialty Start Date End Date Bao Pierre MD [address] [address] PCP - General 12/22/16
--- OUTSIDE RECORDS SUMMARY | 2024-10-01 08:40 | XMS_ITS | Clinical Summary ---
Author Organization [facility] al Address [address] [place] [address] Care Team Providers Care Hand Riveter Name Role Phone Bao Pierre MD Primary Care Provider [phone] Allergies Active Allergy Reactions Criticality Noted Date [...] 03/08/2022 Assessment & Plan (08/22/2023 10:05 AM COMPUTER INSTALLATION ENGINEER): Ortho referral Assessment & Plan (03/25/2022 9:04 [...] labs. Assessment & Plan (08/22/2023 10:03 AM COMPUTER INSTALLATION ENGINEER): Ok to take aricept in AM as no one is there to administer in PM Will trial escitalopram 5mg with evening meal before help leaves, reach out in 4-6 weeks with condition update Atarax PRN Chronic middle ear effusion, left 09/09/2020 Assessment & Plan (09/09/2020 4:42 PM COMPUTER INSTALLATION ENGINEER): Nasal sprays and OTC allergy meds daily [...] (05/08/2018): Added automatically from request for surgery [id number] Degeneration of lumbar or lumbosacral interverte bral disc 01/28/2018 Primary osteoarthritis of left hip 01/28/2018 Disorder of rotator cuff 01/05/2017 Other seborrheic keratosis 04/29/2016 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 See note from [facility]--12/2014. MRI report there also MRI 10/2012 Severe spinal stenosis L1-2, L4-5, Moderate stenosis L3-4 and L2-3, Severe foraminal narrowing L1-2, L3-4, and L2-3 Diffuse disc bulging all levels Spinal stenosis 02/20/2015 Overview (08/13/2021): Overview: Mod-severe. See note from [facility]--12/2014. 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 09/13/2013 03/08/2022 Sprain of rotator cuff capsule 07/28/2010 03/08/2022 Encounters Date Type Department Care Team Description 09/25/2024 Orders Only [facility] [address] [place] [phone] Bao Pierre MD 09/09/2024 [facility] [address] [phone] Bao Pierre MD 09/05/2024 [facility] [address] [phone] Bao Pierre MD Spoke With Home Health Provider 08/20/2024 [facility] [address] [phone] Bao Pierre MD 07/19/2024 [facility] [address] [place] [address] Bao Pierre MD Constipation 07/18/2024 [facility] [address] [phone] Bao Pierre MD Joint Swelling (Right elbow ) 07/08/2024 [facility] [address] [place] [phone] [place], [place] 07/03/2024 [facility] Internal [facility] [address] [place] [phone] Bao Pierre MD from Last 3 Months Immunizations Name Administration Dates Next Due Influenza, Quad, Adjuvantate d, Intramuscular 08/07/2021 Influenza, Quadrivalent, Spl it, Preservative Free, Intramuscular 07/01/2019,07/01/2019,07/31/2018 Influenza, Trivalent, High D ose, Split, Preservative Free, Intramuscular 06/18/2020,07/09/2017,07/09/2017,07/09,08/11/2016,09/06/2012 Influenza, Trivalent, IM (MDV) 07/18/2014,2013,07/05/2013 Influenza, Unspecified 06/18/2020,2018,08/02/2019,07/09,08/11/2016,07/02/2016,07/11/2015 ,07/02/2014,07/05/2013,06/27/2011,10/2009,07/02/2009,09/02/2008, 7,06/02/2006,08/19/2003,07/11/2001 Moderna SARS-CoV-2 Monovalen t Vaccination (12+ YRS) 08/07/2021,12/20/2020,11/22/2020 Pneumococcal Conjugate PCV 13 03/04/2015 Pneumococcal, Unspecified 03/02/2004,10/04/2002 ZOSTER LIVE 12/01/2007 Surgical History Surgery Date Site/Laterality Comments SHOULDER SURGERY 10/02/2011 - 10/01/2012 rotator cuff repair [place] CHOLECYSTECTOMY 10/02/2017 - 10/01/2018 BACK SURGERY MOHS SURGERY multiple POSTERIOR LAMINECTOMY / DECOMPRESSION LUMBAR SPINE 2015 CARDIAC CATHETERIZATION 10/02/2012 - 10/01/2013 CATARACT EXTRACTION, BILATERAL ~2013, 2014 HIP SURGERY 05/28/2018 Left L.CHRISTIANO TOTAL HIP ARTHROPLASTY ROTATOR CUFF REPAIR Medical History Medical History Date Comments Personal history of other di seases of the circulatory system History of hypertension - (A dded by TW Conv) Personal history of other di seases of the respiratory system History of asthma - (Added b y TW Conv) Eye disease Arthritis Hypercholesteremia Spinal stenosis lumbar Osteoarthritis Hypertension Asthma V-tach (HCC) Coronary artery disease Low back pain Mid back pain Syncope HLD (hyperlipidemia) 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 (HCC) 09/13/2013 Sprain of rotator cuff capsule 07/28/2010 Family History Medical History Relation Name Comments Heart disease Brother valve disease Arthritis Mother Family history of arthritis - (Added by TW Conv) Heart disease Mother Family history of cardiac disorder - (Added by TW Conv) Hypertension Mother Family history of hypertension - (Added by TW Conv) Arthritis Sister 1 Family history of arthritis - (Added by TW Conv) Cancer Sister 2 Family history of malignant neoplasm - (Added by TW Conv) Scoliosis Son Family history of scoliosis - (Added by TW Conv) Anesthesia problems Neg Hx Relation Name Status Comments Brother Father Mother Sister 1 Sister 2 Son Social History Tobacco Use Types Packs/Day Years [...] on file Legal Sex Male 9:03 PM COMPUTER INSTALLATION ENGINEER Gender Identity Not on file Sexual Orientation Straight 10/15/2019 10 :34 PM COMPUTER INSTALLATION ENGINEER Obstetrics History Last Filed Vital Signs Vital Sign Reading Time Taken Comments Blood Pressure 134/71 05/23/2024 1:24 PM CDT Pulse 61 05/23/2024 1:24 PM CDT Temperature 36.8 ??C (98.2 ??F) 02/07/2024 10:15 AM C DT Respiratory Rate 13 09/13/2021 9:37 AM COMPUTER INSTALLATION ENGINEER Oxygen Saturation 97% 02/07/2024 10:15 AM CDT Inhaled Oxygen Concentration - - Weight 78.9 kg (174 lb) 05/23/2024 1:24 PM CDT Height 170.2 cm (5' 7 ) 05/23/2024 1:24 PM CDT Body Mass Index 27.25 05/23/2024 1:24 PM CDT Plan of Treatment Health Maintenance Due Date Last Done Comments Fall Risk Assessment 1935 Hepatitis B Screening 1953 Well Visit 65+ 2001 Zoster Vaccine (2 of 3) 01/26/2008 12/01/2007 Pneumococcal vaccine 65+ (2 of 2 - PPSV23 or PCV20) 03/04/2016 03/04/2015, 03/02/2004, 10/04/2002 Depression Screening 05/08/2019 05/08/2018, 05/08/20 18 Covid-19 Vaccine (4 - 2023-2 5 season) 2024 08/07/2021, 12/20/2020, 11/22/2020 Influenza Vaccine (#1) 2024 , 06/18/2020, 06/18/2020, Additional history exists DTaP/Tdap/Td Vaccine (2 - Td or Tdap) 08/27/2034 08/27/2024 Goals Goal Patient Goal Type Associated Problems Recent Progress Patient-Stated? Author CCM Chronic Pain Care Plan Chronic Care Management Worsening( 8:02 AM COMPUTER INSTALLATION ENGINEER) Chika Tracy, RN Note: Problem: Chronic Pain Goals: 1. Minimize further functional decline 2. Maximize quality of life 3. Control pain Strategies: - Activity/exercise program recommendation - Conservative stepwise pain medicine strategy with multi-disciplinary approach - Recommend healthy lifestyle strategies and compensatory methods as needed Medical Devices Implanted Type Area Metal Bonding Assembler Device Identifier Shelf Expiration Date Model / Serial / Lot [employer] [id number] System Coronary Stent Xience Henny Everolimus L38 Mm Od2.5 Mm Rapid Exchange - [id number] Implanted:Qty: 1 on 12/03/2019 by Irina James MD at [facility] Stent [employer] 07/10/2020 [id number] / / [employer] [id number] Trilogy 60mm Primary Cluster Hole Hip Shell Acetabular Tivanium - S0. - [id number] Implanted:Qty: 1 on 05/28/2018 by Hilary Liang MD at [facility] Left: Hip [employer] [id number] 03/01/2028 [id number] / 0. / [id number] [employer] [id number] Trilogy 6.5mm 40mm Self Tap Hip Acetabular Cortical Screw Bone - S0. - [id number] Implanted:Qty: 1 on 05/28/2018 by Hilary Liang MD at [facility] Left: Hip [employer] [id number] 03/01/2028 [id number] / 0. / [id number] [employer] [id number] Trilogy 6.5mm 30mm Self Tap Acetabular Cortical Screw Bone - [id number] Implanted:Qty: 1 on 05/28/2018 by Hilary Liang MD at [facility] Left: Hip [employer] [id number] 05/01/2028 [id number] / / [id number] [employer] [id number] Trilogy 60mm 36mm 9.9mm Primary Modular Cup Liner Hip Standard - S0. - [id number] Implanted:Qty: 1 on 05/28/2018 by Hilary Liang MD at [facility] Left: Hip [employer] [id number] 03/01/2023 [id number] / 0. / [id number] [employer] [id number] Versys 16mm 160mm Primary Collar Alignment Guide Hip 45mm - S0. - [id number] Implanted:Qty: 1 on 05/28/2018 by Hilary Liang MD at [facility] [place] Left: Hip [employer] [id number] 12/30/2024 [id number] / 0. / [id number] [employer] [id number] Trilogy It 36mm Hip Acetabular +0mm 12/14 Medium Head Femoral - S0. - [id number] Implanted:Qty: 1 on 05/28/2018 by Hilary Liang MD at [facility] Left: Hip [employer] [id number] 12/31/2027 [id number] / 0. / [id number] [employer] [id number] Angio-Seal Evolution 6fr .035in Guidewire Bypass Tube Suture - [id number] Implanted:Qty: 1 on 12/03/2019 by Irina James MD at [facility] [employer] 07/01/2020 [id number] / / [id number] Procedures Procedure Name Priority Date/Time Associated Diagnosis Comments SCAN - LABS 09/27/2024 7:28 PM COMPUTER INSTALLATION ENGINEER SCAN - LABS 09/27/2024 5:07 PM COMPUTER INSTALLATION ENGINEER SCAN - LABS 09/27/2024 4:49 PM COMPUTER INSTALLATION ENGINEER SCAN - LABS 09/27/2024 4:30 PM COMPUTER INSTALLATION ENGINEER SCAN - LABS 09/27/2024 4:25 PM COMPUTER INSTALLATION ENGINEER SCAN - LABS 09/27/2024 4:25 PM COMPUTER INSTALLATION ENGINEER SCAN - RADIOLOGY/IMAGING 09/25/2024 7:19 AM COMPUTER INSTALLATION ENGINEER SCAN - RADIOLOGY/IMAGING 07/18/2024 3:33 PM CDT from Last 3 Months Results * SCAN - LABS (09/27/2024 7:28 PM COMPUTER INSTALLATION ENGINEER) us Bao Pierre MD Final Result * SCAN - LABS (09/27/2024 5:07 PM COMPUTER INSTALLATION ENGINEER) us Bao Pierre MD Final Result * SCAN - LABS (09/27/2024 4:49 PM COMPUTER INSTALLATION ENGINEER) us Bao Pierre MD Final Result * SCAN - LABS (09/27/2024 4:30 PM COMPUTER INSTALLATION ENGINEER) Result Randolph Pierre MD Final Result * SCAN - LABS (09/27/2024 4:25 PM COMPUTER INSTALLATION ENGINEER) Result Randolph Pierre MD Final Result * SCAN - LABS (09/27/2024 4:25 PM COMPUTER INSTALLATION ENGINEER) Result Randolph Pierre MD Final Result * SCAN - RADIOLOGY/IMAGING (09/25/2024 7:19 AM COMPUTER INSTALLATION ENGINEER) Anatomical Region Laterality Modality Other Result Randolph Pierre MD Final Result * SCAN - RADIOLOGY/IMAGING (07/18/2024 3:33 PM CDT) Anatomical Region Laterality Modality Other Result Randolph Pierre MD Final Result from Last 3 Mon[place] [address] [facility] MEDICARE [facility] ANTHEM ACCESS CHOICE Member Subscriber Plan / Payer (Ef fective 2019-Present) Name:Frandy Alvares Relation to Subscriber:Self Name:Frandy Alvares Payer ID:[id number] (NAIC) Type: [place] Address: [address] TRADITIONAL [facility] MEDICARE MEDICARE [facility] MEDICARE Advance Directives For more information, please contact: [phone] * Full Code (Latest Code Status on File) Date Activated Date Inactivated Comments 12/03/2019 12:18 PM 12/03/2019 7:17 PM * Full Code Date Activated Date Inactivated Comments 05/28/2018 12:23 PM 05/29/2018 4:31 PM Care Teams Hand Riveter Relationship Specialty Start Date End Date Bao Pierre MD [address] [facility] [address] [place] [address] PCP - General 12/22/16
--- OUTSIDE RECORDS SUMMARY | 2024-10-01 08:41 | XMS_ITS | Encounter Summary ---
Author Organization [facility] Address [address] [place] [address] Care Team Providers Care Metal Precision Machine Assembler Name Role Phone Bao Pierre MD Primary Care Provider [phone] Encounter Details Date Type Department Care Team (Late st Contact Info) Description 04/19/2024 [facility] [address] [facility] [address] [place] [phone] Patricia Lee MA [address] [place] [address] Social History Tobacco Use Types Packs/Day Years [...] on file Legal Sex Male 9:03 PM AWS ARCHITECT Gender Identity Not on file Sexual Orientation Straight 10/15/2019 10 :34 PM AWS ARCHITECT documented as of this encounter Miscellaneous Notes * Telephone Encounter - Patricia Lee MA - 04/19/2024 7:40 AM CDT Pt aware/mk * Telephone Encounter - Patricia Lee MA - 04/19/2024 7:40 AM CDT ----- Message from Bao Pierre MD sent at 04/18/2024 1:38 PM CDT ----- Right hip oa is worse documented in this encounter Plan of Treatment Not on file documented as of this encounter Goals Goal Patient Goal Type Associated Problems Recent Progress Patient-Stated? Author CCM Chronic Pain Care Plan Chronic Care Management Worsening( 8:02 AM AWS ARCHITECT) Chika Tracy, RN Note: Problem: Chronic Pain Goals: 1. Minimize further functional decline 2. Maximize quality of life 3. Control pain Strategies: - Activity/exercise program recommendation - Conservative stepwise pain medicine strategy with multi-disciplinary approach - Recommend healthy lifestyle strategies and compensatory methods as needed documented as of this encounter Visit Diagnoses Not on filedocumented in this encounter Care Teams Metal Precision Machine Assembler Relationship Specialty Start Date End Date Bao Pierre MD [address] [facility] [address] [place] [address] PCP - General 12/22/16 documented as of this encounter
--- OUTSIDE RECORDS SUMMARY | 2024-10-01 08:41 | XMS_ITS | Encounter Summary ---
Author Organization [facility] Address [address] [place] [address] Care Team Providers Care Stone Rubber Name Role Phone Bao Pierre MD Primary Care Provider [phone] Encounter Details Date Type Department Care Team (Late st Contact Info) Description 05/24/2024 [facility] [address] [facility] [address] [place] [place] [phone] Patricia Lee MA [address] [place] [address] Social History Tobacco Use Types Packs/Day Years [...] on file Legal Sex Male 9:03 PM IP PARALEGAL Gender Identity Not on file Sexual Orientation Straight 10/15/2019 10 :34 PM IP PARALEGAL documented as of this encounter Miscellaneous Notes * Telephone Encounter - Patricia Lee MA - 05/24/2024 12:05 PM CDT Pt aware/mk * Telephone Encounter - Patricia Lee MA - 05/24/2024 12:05 PM CDT ----- Message from Bao Pierre MD sent at 05/24/2024 8:01 AM CDT ----- All labs essentially unchanged. Please contact patient's son also named Frandy with results documented in this encounter Plan of Treatment Not on file documented as of this encounter Goals Goal Patient Goal Type Associated Problems Recent Progress Patient-Stated? Author CCM Chronic Pain Care Plan Chronic Care Management Worsening( 8:02 AM IP PARALEGAL) No Chika Watters, RN Note: Problem: Chronic Pain Goals: 1. Minimize further functional decline 2. Maximize quality of life 3. Control pain Strategies: - Activity/exercise program recommendation - Conservative stepwise pain medicine strategy with multi-disciplinary approach - Recommend healthy lifestyle strategies and compensatory methods as needed documented as of this encounter Visit Diagnoses Not on filedocumented in this encounter Care Teams Stone Rubber Relationship Specialty Start Date End Date Bao Pierre MD [address] [address] PCP - General 12/22/16 documented as of this encounter
--- OUTSIDE RECORDS SUMMARY | 2024-10-01 08:41 | XMS_ITS | Encounter Summary ---
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 Name Role Phone Bao Pierre MD Primary Care Provider [phone] Reason for Visit * Reason Comments Ear Fullness Onset 2 weeks Encounter Details Date Type Department Care Team (Late st Contact Info) Description 01/19/2024 10:15 AM CDT Office Visit [facility] [address] [facility] [address] [facility] [place] [address] Lynette Reynolds, KRISS [address] [facility] [address] [place], [place] [id number] Dysfunction of both eustachian tubes (Primary Dx); Primary hypertension; Hyperlipidemia, unspecified hyperlipidemia type; Memory difficulties Social History Tobacco Use Types Packs/Day Years [...] on file Legal Sex Male 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[employer] Gender Identity Not on file Sexual Orientation 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 documented as of this encounter Last Filed Vital Signs Vital Sign Reading Time Taken Comments Blood Pressure 130/68 01/19/2024 9:53 AM CDT Pulse 71 01/19/2024 9:53 AM CDT Temperature - - Respiratory Rate - - Oxygen Saturation 99% 01/19/2024 9:53 AM CDT Inhaled Oxygen Concentration - - Weight 81.6 kg (180 lb) 01/19/2024 9:53 AM CDT Height 170.2 cm (5' 7 ) 01/19/2024 9:53 AM CDT Body Mass Index 28.19 01/19/2024 9:53 AM CDT documented in this encounter Ordered Prescriptions Prescription Sig Dispense Quantity Refills Last Filled Start Date End Date fluticasone propionate (FLONASE) 50 mcg/actuation nasal spray Administer 2 sprays into each nostril daily 1 each 1 01/19/2024 documented in this encounter Progress Notes * Lynette Reynolds, KRISS - 01/19/2024 10:15 AM CDT Office Visit Frandy Alvares is a 88 y.o. male here for Ear Fullness (Onset 2 weeks ) HPI Patient is here with Shayy. Patient is here for evaluation of bilateral ear fullness, no pain. Feels like he is in a tunnel . No fever/chills. He feels well otherwise. Denies allergy symptoms. No CP, SOB, palpitations, or dizziness. He has an appointment with ENT in April. HTN Patient is not currently taking BP medication. HLD He is taking Rosuvastatin 40 mg once daily. Lipid panel 04/10/2023 Memory issues Prescribed Donepezil, but has not been taking this. He is taking Lexapro 5 mg once daily. Current Medications Current Outpatient Medications: alfuzosin ER (UROXATRAL) 10 mg 24 hr tablet, Take 1 tablet (10 mg total) by mouth daily, Disp: , Rfl: ascorbic acid-vitamin E-biotin 7.5-7.5-1,250 mg-unit-mcg tablet,chewable, Take by mouth 2 (two) times a day, Disp: , Rfl: escitalopram (LEXAPRO) 5 mg tablet, Take 1 tablet (5 mg total) by mouth with evening meal, Disp: 90tablet, Rfl: 0 glucosamine-chondroitin 500-400 mg tablet, Take 1 tablet by mouth daily, Disp: , Rfl: hydrOXYzine (ATARAX) 10 mg tablet, TAKE 1 TABLET(10 MG) BY MOUTH EVERY 8 HOURS NEEDED FOR ITCHING, Disp: 60 tablet, Rfl: 1 rosuvastatin (CRESTOR) 40 mg tablet, Take 1 tablet (40 mg total) by mouth daily, Disp: 90 tablet, Rfl: 3 aspirin 81 mg enteric coated tablet, Take 1 tablet (81 mg total) by mouth daily (Patient not taking: Reported on 01/19/2024), Disp: , Rfl: donepeziL (ARICEPT) 5 mg tablet, Take 1 tablet (5 mg total) by mouth daily (Patient not taking: Reported on 01/19/2024), Disp: 90 tablet, Rfl: 1 finasteride (PROSCAR) 5 mg tablet, Take 1 tablet (5 mg total) by mouth daily (Patient not taking: Reported on 01/19/2024), Disp: , Rfl: fluticasone propionate (FLONASE) 50 mcg/actuation nasal spray, Administer 2 sprays into each nostril daily, Disp: 1 each, Rfl: 1 triamcinolone (KENALOG) 0.1 % cream, Apply topically 2 (two) times a day (Patient not taking: Reported on 01/19/2024), Disp: 30 g, Rfl: 1 Allergies Allergies Allergen Reactions Epinephrine Syncope and Dizziness Past Medical and Surgical History: Patient Active Problem List Diagnosis Primary osteoarthritis of left hip Risk factors for obstructive sleep apnea HLD (hyperlipidemia) Class 1 obesity in adult Other seborrheic keratosis Arthritis Degeneration of lumbar or lumbosacral intervertebral disc Disorder of rotator cuff Herniated lumbar intervertebral disc History of SCC (squamous cell carcinoma) of skin Hypertension Neoplasm of uncertain behavior of skin 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 lentiginosis Primary osteoarthritis of left hip Lumbago Chronic middle ear effusion, left Premature atrial contractions Spinal stenosis Memory difficulties Chronic left shoulder pain Dysfunction of both eustachian tubes Acute myocardial infarction of other inferior wall, initial episode of care Past Medical History: Diagnosis Date Arthritis Asthma Coronary artery disease Eye disease HLD (hyperlipidemia) Hypercholesteremia Hypertension Low back pain Mid back pain Osteoarthritis Personal history of other diseases of the circulatory system History of hypertension - (Added by TW Conv) Personal history of other diseases of the respiratory system History of asthma - (Added by TW Conv) Spinal stenosis lumbar Sprain of rotator cuff capsule 07/28/2010 ST elevation (STEMI) myocardial infarction involving other coronary artery of inferior wall (HCC) 09/13/2013 Syncope V-tach (HCC) Past Surgical History: Procedure Laterality Date BACK SURGERY CARDIAC CATHETERIZATION 2013 CATARACT EXTRACTION, BILATERAL ~2013, 2014 HIP SURGERY Left 05/28/2018 L.CHRISTIANO ARELLANO SURGERY multiple POSTERIOR LAMINECTOMY / DECOMPRESSION LUMBAR SPINE 2015 TN CHOLECYSTECTOMY 2017 ROTATOR CUFF REPAIR SHOULDER SURGERY 2011 rotator cuff repair TOTAL HIP ARTHROPLASTY Family History: Family History Problem Relation Age of Onset Hypertension Mother Family history of hypertension - (Added by TW Conv) Heart disease Mother Family history of cardiac disorder - (Added by TW Conv) Arthritis Mother Family history of arthritis - (Added by TW Conv) Heart disease Brother valve disease Arthritis Sister Family history of arthritis - (Added by TW Conv) Cancer Sister Family history of malignant neoplasm - (Added by TW Conv) Scoliosis Son Family history of scoliosis - (Added by TW Conv) Anesthesia problems Neg Hx Social History: Social History Tobacco Use Smoking status: Former Types: Pipe Start date: 1965 Quit date: 10/02/2013 Years since quittin.3 Smokeless tobacco: Never Tobacco comments: 5-6 times a day Substance and Sexual Activity Drug use: Never Comment: denies CBD Sexual activity: Defer Alcohol Use: Not At Risk (09/13/2021) AUDIT-C Frequency of Alcohol Consumption: Never Average Number of Drinks: Not on file Frequency of Binge Drinking: Not on file Social History Social History Narrative Smoking A Pipe : (Added by TW Conv) Current smoker : (Added by TW Conv) No alcohol use : (Added by TW Conv) : (Added by TW Conv) Retired : (Added by TW Conv) Immunization History Administered Date(s) Administered Influenza, Quadrivalent, Split, Preservative Free, Intramuscular 07/01/2019, 07/01/2019 Influenza, Trivalent, High Dose, Split, Preservative Free, Intramuscular 09/06/2012, 08/11/2016, 07/09/2017, 07/09/2017, 07/09/2017, 06/18/2020 Influenza, Trivalent, Intramuscular 07/05/2013, 07/18/2014, 07/18/2014 Influenza, Unspecified 08/11/2016, 07/09/2017, 08/02/2019, 08/02/2019, 06/18/2020 Pneumococcal Conjugate PCV 13 03/04/2015 Assessment/Plan Review of Systems Review of Systems Constitutional: Negative for appetite change, chills, fever and unexpected weight change. HENT: Negative for hearing loss, trouble swallowing and voice change. Eyes: Negative for visual disturbance. Respiratory: Negative for cough and shortness of breath. Cardiovascular: Negative for chest pain, palpitations and leg swelling. Gastrointestinal: Negative for blood in stool, constipation, diarrhea and nausea. Genitourinary: Negative for dysuria. Musculoskeletal: Negative for gait problem. Skin: Negative for rash. Neurological: Negative for seizures and headaches. Psychiatric/Behavioral: Negative for sleep disturbance. Physical Exam Physical Exam Constitutional: Appearance: Normal appearance. He is normal weight. He is not ill-appearing. HENT: Head: Normocephalic and atraumatic. Right Ear: External ear normal. Tympanic membrane is bulging. Tympanic membrane is not erythematous. Left Ear: External ear normal. Tympanic membrane is bulging. Tympanic membrane is not erythematous. Nose: Nose normal. Mouth/Throat: Mouth: Mucous membranes are moist. Pharynx: Oropharynx is clear. Eyes: Extraocular Movements: Extraocular movements intact. Pupils: Pupils are equal, round, and reactive to light. Cardiovascular: Rate and Rhythm: Normal rate and regular rhythm. Pulses: Normal pulses. Heart sounds: Normal heart sounds. Pulmonary: Effort: Pulmonary effort is normal. Breath sounds: Normal breath sounds. Abdominal: General: Bowel sounds are normal. Palpations: Abdomen is soft. Tenderness: There is no abdominal tenderness. There is no guarding. Musculoskeletal: General: Normal range of motion. Cervical back: Normal range of motion. Skin: General: Skin is warm and dry. Capillary Refill: Capillary refill takes less than 2 seconds. Findings: No lesion or rash. Neurological: General: No focal deficit present. Mental Status: He is alert and oriented to person, place, and time. Cranial Nerves: No cranial nerve deficit. Gait: Gait normal. Psychiatric: Mood and Affect: Mood normal. Behavior: Behavior normal. Thought Content: Thought content normal. Judgment: Judgment normal. Vitals BP 130/68 (BP Location: Right arm, Patient Position: Sitting) Pulse 71 Ht 170.2 cm (5' 7 ) Wt 81.6 kg (180 lb) SpO2 99% BMI 28.19 kg/m?? Wt Readings from Last 3 Encounters: 01/19/24 81.6 kg (180 lb) 08/22/23 80.3 kg (177 lb) 04/10/23 83.5 kg (184 lb) Body mass index is 28.19 kg/m??. Assessment and Plan Diagnoses and all orders for this visit: Dysfunction of both eustachian tubes (Primary) Comments: Start Flonase nasal spray - 2 sprays in each nostril once daily. Primary hypertension Comments: BP at target. Currently not taking BP medications. Hyperlipidemia, unspecified hyperlipidemia type Comments: Continue Rosuvastatin 40 mg once daily. Memory difficulties Comments: He has not been taking Donepezil. Other orders - fluticasone propionate (FLONASE) 50 mcg/actuation nasal spray; Administer 2 sprays into each nostril daily Recommendations and Follow up Return in about 3 months (around 04/19/2024) for Recheck. Lynette Reynolds NP Cosigned by Bao Pierre MD at 01/22/2024 8:45 AM CDT documented in this encounter Plan of Treatment Not on file documented as of this encounter Goals Goal Patient Goal Type Associated Problems Recent Progress Patient-Stated? 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 Minimize further functional decline 2. Maximize quality of life 3. Control pain Strategies: - Activity/exercise program recommendation - Conservative stepwise pain medicine strategy with multi-disciplinary approach - Recommend healthy lifestyle strategies and compensatory methods as needed documented as of this encounter Visit Diagnoses Diagnosis Dysfunction of both eustachian tubes- Primary Primary hypertension Unspecified essential hypertension Hyperlipidemia, unspecified hyperlipidemia type Memory difficulties Memory loss documented in this encounter Discontinued Medications Medication Sig Discontinue Reason Start Date End Da te fluticasone propionate (FLONASE) 50 mcg/actuation nasal spray Administer 2 sprays into each nostril daily Reorder 03/08/2022 01/19/2024 documented as of this encounter Care Teams 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
--- OUTSIDE RECORDS SUMMARY | 2024-10-01 08:41 | XMS_ITS | Encounter Summary ---
Author Organization [facility] Address [address] [place] [address] Care Team Providers Care Baling Machine Operator Name Role Phone Bao Pierre MD Primary Care Provider [phone] Reason for Visit * Reason Comments Hyperlipidemia Memory Loss Encounter Details Date Type Department Care Team (Late st Contact Info) Description 04/10/2023 8:30 AM CDT Office Visit [facility] [address] [facility] [address] [place] [address] Bao Pierre MD [address] 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 Gender Identity Not on file Sexual Orientation Straight 10/15/2019 10 :34 PM NEWCOMER HOSTESS documented as of this encounter Last Filed Vital Signs Vital Sign Reading Time Taken Comments Blood Pressure 163/69 04/10/2023 8:39 AM CDT Pulse 57 04/10/2023 8:39 AM CDT Temperature - - Respiratory Rate - - Oxygen Saturation - - Inhaled Oxygen Concentration - - Weight 83.5 kg (184 lb) 04/10/2023 8:39 AM CDT Height 170.2 cm (5' 7 ) 04/10/2023 8:39 AM CDT Body Mass Index 28.82 04/10/2023 8:39 AM CDT documented in this encounter Progress Notes * Bao Pierre MD - 04/10/2023 8:30 AM CDT Images from the original note were not included. Subjective/Objective Patient ID: Frandy Alvares is a 87 y.o. male. Chief Complaint Hyperlipidemia and Memory Loss Hyperlipidemia Pertinent negatives include no chest pain or shortness of breath. Memory Loss Pertinent negatives include no abdominal pain, chest pain, fatigue, fever, headaches, nausea, rash,sore throat, vomiting or weakness. Here for evaluation of his medical problems. He has been doing reasonably well he has had no physical ailments denies any chest pain denies any shortness of breath. He has continued to have intermittent hip pain but currently even this is better. Biggest concern is of memory loss. Has continued to drive. Past Surgical History: Procedure Laterality Date BACK SURGERY CARDIAC CATHETERIZATION 2013 CATARACT EXTRACTION, BILATERAL ~2013, 2014 HIP SURGERY Left 05/28/2018 [facility] [place] multiple POSTERIOR LAMINECTOMY / DECOMPRESSION LUMBAR SPINE 2015 SD CHOLECYSTECTOMY 2018 ROTATOR CUFF REPAIR SHOULDER SURGERY 2012 rotator cuff repair TOTAL HIP ARTHROPLASTY Family History Problem Relation Age of Onset [...] by TW Conv) Anesthesia problems Neg Hx Immunization History Administered Date(s) Administered Influenza, Quadrivalent, Split, Preservative Free, Intramuscular 07/01/2019, 07/01/2019 Influenza, Trivalent, High Dose, Split, Preservative Free, Intramuscular 09/06/2012, 08/11/2016, 07/09/2017, 07/09/2017, 07/09/2017, 06/18/2020 Influenza, Trivalent, Intramuscular 07/05/2013, 07/18/2014, 07/18/2014 Influenza, Unspecified 08/11/2016, 07/09/2017, 08/02/2019, 08/02/2019, 06/18/2020 Pneumococcal Conjugate PCV 13 03/04/2015 Current Outpatient Medications Medication Sig alfuzosin ER (UROXATRAL) 10 mg 24 hr tablet Take 1 tablet (10 mg total) by mouth daily ascorbic acid-vitamin E-biotin 7.5-7.5-1,250 mg-unit-mcg tablet,chewable Take by mouth 2 (two) times a day aspirin 81 mg enteric coated tablet Take 1 tablet (81 mg total) by mouth daily azelastine (ASTELIN) 137 mcg (0.1 %) nasal spray Administer 1 spray into each nostril 2 (two) timesa day Use in each nostril as directed clopidogreL (PLAVIX) 75 mg tablet Take 1 tablet (75 mg total) by mouth daily donepeziL (ARICEPT) 5 mg tablet Take 1 tablet (5 mg total) by mouth nightly finasteride (PROSCAR) 5 mg tablet Take 1 tablet (5 mg total) by mouth daily fluticasone propionate (FLONASE) 50 mcg/actuation nasal spray Administer 2 sprays into each nostrildaily glucosamine sulfate 500 mg capsule GLUCOSAMINE CAPSULE glucosamine-chondroitin 500-400 mg tablet Take 1 tablet by mouth daily inulin 2 gram tablet,chewable Take 1 tablet by mouth 2 (two) times a day rosuvastatin (CRESTOR) 40 mg tablet Take 1 tablet (40 mg total) by mouth daily UNABLE TO FIND prevegen daily Review of Systems Constitutional: Negative for fatigue, fever and unexpected weight change. HENT: Negative for ear pain, hearing loss, sinus pain, sore throat and voice change. Eyes: Negative for visual disturbance. Respiratory: Negative for chest tightness, shortness of breath and wheezing. Cardiovascular: Negative for chest pain, palpitations and leg swelling. Gastrointestinal: Negative for abdominal pain, anal bleeding, blood in stool, constipation, diarrhea, nausea and vomiting. Endocrine: Negative for cold intolerance, heat intolerance, polydipsia, polyphagia and polyuria. Genitourinary: Negative for dysuria, frequency, hematuria and testicular pain. Musculoskeletal: Negative for gait problem. Skin: Negative for rash. Neurological: Negative for dizziness, speech difficulty, weakness, light- headedness and headaches. Hematological: Negative for adenopathy. Psychiatric/Behavioral: Negative for dysphoric mood and sleep disturbance. The patient is not nervous/anxious. Patient Vital Signs for the past 24 hrs: BP Pulse Height Weight 04/10/23 0839 163/69 57 170.2 cm (5' 7 ) 83.5 kg (184 lb) Wt Readings from Last 3 Encounters: 04/10/23 83.5 kg (184 lb) 02/06/23 83.9 kg (185 lb) 04/14/22 86.2 kg (190 lb) Physical Exam Constitutional: Appearance: Normal appearance. HENT: Head: Normocephalic and atraumatic. Right Ear: Tympanic membrane normal. Left Ear: Tympanic membrane normal. Nose: Nose normal. Mouth/Throat: Mouth: Mucous membranes are moist. Pharynx: Oropharynx is clear. Eyes: Extraocular Movements: Extraocular movements intact. Pupils: Pupils are equal, round, and reactive to light. Cardiovascular: Rate and Rhythm: Normal rate and regular rhythm. Pulses: Normal pulses. Heart sounds: Normal heart sounds. Pulmonary: Effort: Pulmonary effort is normal. Breath sounds: Normal breath sounds. No wheezing or rales. Abdominal: General: Abdomen is flat. Bowel sounds are normal. Palpations: Abdomen is soft. Musculoskeletal: General: No swelling or deformity. Cervical back: Normal range of motion. Skin: General: Skin is warm and dry. Capillary Refill: Capillary refill takes less than 2 seconds. Findings: No bruising or rash. Neurological: General: No focal deficit present. Mental Status: He is alert and oriented to person, place, and time. Mental status is at baseline. Cranial Nerves: No cranial nerve deficit. Motor: No weakness. Gait: Gait normal. Deep Tendon Reflexes: Reflexes normal. Psychiatric: Mood and Affect: Mood normal. Behavior: Behavior normal. Assessment/Plan Diagnoses and all orders for this visit: Hyperlipidemia, unspecified hyperlipidemia type (E78.5) (Primary) Comments: stable Orders: - POCT glucose - POCT lipid panel - CBC with auto differential; Future - Comprehensive metabolic panel; Future - TSH; Future - Urinalysis reflex to microscopic and culture Urine; Future - Vitamin B12; Future - Erythrocyte sedimentation rate; Future Risk factors for obstructive sleep apnea (Z91.89) - CBC with auto differential; Future - Comprehensive metabolic panel; Future - TSH; Future - Urinalysis reflex to microscopic and culture Urine; Future - Vitamin B12; Future - Erythrocyte sedimentation rate; Future Primary hypertension (I10) Comments: bp at target Orders: - CBC with auto differential; Future - Comprehensive metabolic panel; Future - TSH; Future - Urinalysis reflex to microscopic and culture Urine; Future - Vitamin B12; Future - Erythrocyte sedimentation rate; Future Memory difficulties (R41.3) Comments: reinforce meds. Orders: - CBC with auto differential; Future - Comprehensive metabolic panel; Future - TSH; Future - Urinalysis reflex to microscopic and culture Urine; Future - Vitamin B12; Future - Erythrocyte sedimentation rate; Future Labs No results found for: HGBA1C Lab Results Component Value Date POCCHOL 185 04/10/2023 POCCHOL 118 05/14/2021 POCCHOL 103 01/08/2021 Lab Results Component Value Date POCHDL 40 04/10/2023 POCHDL 42 03/08/2022 POCHDL 34 05/14/2021 Lab Results Component Value Date POCLDL 131 04/10/2023 POCLDL 96 03/08/2022 POCLDL 57 05/14/2021 Lab Results Component Value Date POCTRIG 69 04/10/2023 POCTRIG 139 03/08/2022 POCTRIG 133 05/14/2021 No results found for: A1C Lab Results Component Value Date CREATININE 1.11 03/25/2022 CREATININE 1.05 12/03/2019 CREATININE 1.2 05/01/2019 Lab Results Component Value Date COLORU Dark Yellow 02/06/2023 CLARITYU Clear 02/06/2023 GLUCOSEUR Negative 02/06/2023 BILIRUBINUR Negative 02/06/2023 KETONESU Negative 02/06/2023 SPECGRAVU 1.025 02/06/2023 BLOODUR Negative 05/02/2019 HAYLEY 5.0 02/06/2023 PROTUR Negative 02/06/2023 UROBILINOGEN 0.2 02/06/2023 POCURNITRITE Negative 02/06/2023 LOTNUMBER [id number] 02/06/2023 Bao Pierre MD documented in this encounter Plan of Treatment Not on file documented as of this encounter Goals Goal Patient Goal Type Associated Problems Recent Progress Patient-Stated? Author CCM Chronic Pain Care Plan Chronic Care Management Worsening( 8:02 AM NEWCOMER HOSTESS) Chika Tracy, RN Note: Problem: Chronic Pain Goals: 1. Minimize further functional decline 2. Maximize quality of life 3. Control pain Strategies: - Activity/exercise program recommendation - Conservative stepwise pain medicine strategy with multi-disciplinary approach - Recommend healthy lifestyle strategies and compensatory methods as needed documented as of this encounter Procedures Procedure Name Priority Date/Time Associated Diagnosis Comments MICROSCOPIC EXAMINATION Routine 04/10/2023 9:28 AM CDT URINALYSIS AND REFLEX TO MICROSCOPIC AND CULTURE Routine 04/10/2023 9:28 AM CDT Hyperlipidemia, unspecified hyperlipidemia type Risk factors for obstructive sleep apnea Primary hypertension Memory difficulties CBC WITH AUTO DIFFERENTIAL Routine 04/10/2023 9:28 AM CDT Hyperlipidemia, unspecified hyperlipidemia type Risk factors for obstructive sleep apnea Primary hypertension Memory difficulties ERYTHROCYTE SEDIMENTATION RATE Routine 04/10/2023 9:28 AM CDT Hyperlipidemia, unspecified hyperlipidemia type Risk factors for obstructive sleep apnea Primary hypertension Memory difficulties TSH Routine 04/10/2023 9:28 AM CDT Hyperlipidemia, unspecified hyperlipidemia type Risk factors for obstructive sleep apnea Primary hypertension Memory difficulties VITAMIN B12 Routine 04/10/2023 9:28 AM CDT Hyperlipidemia, unspecified hyperlipidemia type Risk factors for obstructive sleep apnea Primary hypertension Memory difficulties COMPREHENSIVE METABOLIC PANEL Routine 04/10/2023 9:28 AM CDT Hyperlipidemia, unspecified hyperlipidemia type Risk factors for obstructive sleep apnea Primary hypertension Memory difficulties POCT GLUCOSE [id number] Routine 04/10/2023 8: 43 AM CDT Hyperlipidemia, unspecified hyperlipidemia type POCT LIPID PANEL Routine 04/10/2023 8:43 AM CDT Hyperlipidemia, unspecified hyperlipidemia type documented in this encounter Results * Microscopic Examination (04/10/2023 9:28 AM CDT) WBC, ur None seen 0 - 5 /hpf [facility] - 01 RBC, ur 0-2 0 - 2 /hpf [facility] - 01 Epithelial cells, non-renal, ur None seen 0 - 10 /hpf [facility] - 01 Casts None seen None seen /lpf [facility] - 01 Bacteria, ur None seen None seen/Few [facility] - 01 04/10/2023 9:28 AM CDT 04/10/2023 Narrative [facility] - 04/11/2023 8:17 AM CDT Performed at: ??01 - [facility] ??[id number] Consumer Marketing Manager: Abdulkadir Sebastian PhD, Phone: ??[phone] us Bao Pierre MD LAB BLOOD ORDERABLES Final Re sult Performing Organization Address [facility] Co de Phone Number [facility] - 01 * Erythrocyte sedimentation rate (04/10/2023 9:28 AM CDT) Erythrocyte sedimentation rate 4 0 - 30 mm/hr [facility] - 01 Blood 04/10/2023 9:28 AM CDT 04/10/2023 Narrative [facility] - 04/11/2023 8:17 AM CDT Performed at: ??01 - [facility] ??[id number] Consumer Marketing Manager: Abdulkadir Sebastian PhD, Phone: ??[phone] us Bao Pierre MD LAB BLOOD ORDERABLES Final Re sult [facility] - 01 * Vitamin B12 (04/10/2023 9:28 AM CDT) Pathologist [facility] Vitamin B12 439 232 - 1,245 pg/mL [facility] - 01 Blood 04/10/2023 9:28 AM CDT 04/10/2023 Narrative [facility] - 04/11/2023 8:17 AM CDT Performed at: ??01 - [facility] [address] ??[id number] Consumer Marketing Manager: Abdulkadir Sebastian PhD, Phone: ??[phone] Bao Pierre MD LAB BLOOD ORDERABLES Final Re [facility] - 01 * Urinalysis reflex to microscopic and culture Urine (04/10/2023 9:28 AM CDT) [facility] Specific Chambers 1.023 1.005 - 1.030 [facility] - 01 pH, ur 6.0 5.0 - 7.5 [facility] - 01 Color, ur Yellow Yellow [facility] - 01 Appearance, ur Clear Clear [facility] - 01 Leukocyte esterase, ur Negative Negative [facility] - 01 Protein, ur Trace Negative/Tra ce [facility] - 01 Glucose, ur Negative Negative [facility] - 01 Ketones, ur Negative Negative [facility] - 01 Blood, ur Negative Negative [facility] - 01 Bilirubin, ur Negative Negative [facility] - 01 Urobilinogen, quant, ur 1.0 0.2 - 1.0 mg/dL [facility] - 01 Nitrites, ur Negative Negative [facility] - 01 Urinalysis, microscopic exam Comment [facility] - 01 Comment:Microscopic follows if indicated. Urinalysis, microscopic exam See below: [facility] - 01 Comment:Microscopic was jon cated and was performed. Urinalysis Comment [facility] - 01 Comment:This specimen will n ot reflex to a Urine Culture. Urine 04/10/2023 9:28 AM CDT 04/10/2023 Narrative [facility] - 04/11/2023 8:17 AM CDT Performed at: ??01 - [facility] ??[id number] Consumer Marketing Manager: Abdulkadir Sebastian PhD, Phone: ??[phone] Bao Pierre MD LAB MICROBIOLOGY - GENERAL OR DERABLES Final Result Performing Organization Address [facility] Co de Phone Number [facility] * TSH (04/10/2023 9:28 AM CDT) TSH 3.460 0.450 - 4.500 uIU/mL [facility] - 01 Blood 04/10/2023 9:28 AM CDT 04/10/2023 Narrative [facility] - 04/11/2023 8:17 AM CDT Performed at: ??01 - [facility] ??[id number] Consumer Marketing Manager: Abdulkadir Sebastian PhD, Phone: ??[phone] Bao Pierre MD LAB BLOOD ORDERABLES Final Re sult Performing Organization Address [facility] de Phone Number [facility] * (ABNORMAL) Comprehensive metabolic panel (04/10/2023 9:28 AM CDT) Glucose 105(H) 70 - 99 mg/dL [facility] - 01 BUN 16 8 - 27 mg/dL [facility] - 01 Creatinine, Serum 1.01 0.76 - 1.27 mg/dL [facility] - 01 eGFR 72 >59 mL/min/1.7 3 [facility] - 01 BUN/creat ratio 16 10 - 24 [facility] - 01 Sodium 142 134 - 144 mmol/L [facility] - 01 Potassium, sr 4.4 3.5 - 5.2 mmol/L [facility] - 01 Chloride 104 96 - 106 mmol/L [facility] - 01 CO2 23 20 - 29 mmol/L [facility] - 01 Calcium 9.0 8.6 - 10.2 mg/dL [facility] - 01 Protein, sr 6.5 6.0 - 8.5 g/dL [facility] - 01 Albumin 4.3 3.7 - 4.7 g/dL [facility] - 01 Comment:Please note refere nce interval change Globulin, Total 2.2 1.5 - 4.5 g/dL [facility] - 01 A/G Ratio 2.0 1.2 - 2.2 [facility] - 01 Bilirubin, Total 0.8 0.0 - 1.2 mg/dL [facility] - 01 Alk phos 67 44 - 121 IU/L [facility] - 01 AST 19 0 - 40 IU/L [facility] - 01 ALT 17 0 - 44 IU/L [facility] - 01 Blood 04/10/2023 9:28 AM CDT 04/10/2023 Narrative [facility] - 04/11/2023 8:17 AM CDT Performed at: ?? - [facility] ??[id number] Consumer Marketing Manager: Abdulkadir Sebastian PhD, Phone: ??[phone] us Bao Pierre MD LAB BLOOD ORDERABLES Final Re sult [facility] - 01 * CBC with auto differential (04/10/2023 9:28 AM CDT) WBC 7.7 3.4 - 10.8 x10E3/uL [facility] - 01 RBC 4.30 4.14 - 5.80 x10E6/uL [facility] - 01 Hgb 14.0 13.0 - 17.7 g/dL [facility] - 01 Hct 41.6 37.5 - 51.0 % [facility] - 01 MCV 97 79 - 97 fL [facility] - 01 MCH 32.6 26.6 - 33.0 pg [facility] - 01 MCHC 33.7 31.5 - 35.7 g/dL [facility] - 01 Rdw 12.4 11.6 - 15.4 % [facility] - 01 Platelets 167 150 - 450 x10E3/uL [facility] - 01 Neutrophils pct 77 Not Estab. % [facility] 01 Lymphs pct 14 Not Estab. % [facility] - 01 Monocytes pct 6 Not Estab. % [facility] - 01 Eosinophils pct 1 Not Estab. % [facility] - 01 Basophil pct 1 Not Estab. % [facility] - 01 Neutrophil abs 5.9 1.4 - 7.0 x10E3/uL [facility] - 01 Lymphs (Absolute) 1.1 0.7 - 3.1 x10E3/uL [facility] - 01 Monocyte abs 0.5 0.1 - 0.9 x10E3/uL [facility] - 01 Eosinophils, abs 0.1 0.0 - 0.4 x10E3/uL [facility] - 01 Basophils, abs 0.1 0.0 - 0.2 x10E3/uL [facility] - 01 Immature Granulocytes 1 Not Estab. % [facility] - 01 Immature Grans (Abs) 0.0 0.0 - 0.1 x10E3/uL [facility] - 01 Blood 04/10/2023 9:28 AM CDT 04/10/2023 Narrative [facility] - 04/11/2023 8:17 AM CDT Performed at: ?? - [facility] [address] ??[id number] Consumer Marketing Manager: Abdulkadir Sebastian PhD, Phone: ??[phone] Bao Pierre MD LAB BLOOD ORDERABLES Final Re sult [facility] - 01 * POCT lipid panel (04/10/2023 8:43 AM CDT) Cholesterol, POC 185 mg/dL HDL, POC 40 mg/dL Triglycerides, POC 69 mg/dL LDL Cholesterol POC 131 mg/dL Chol/HDL Ratio, POC 4.6 Non-HDL Cholesterol, POC 145 mg/dL Cholesterol Total, POC 185 mg/dL Capillary blood 04/10/2023 8 :43 AM CDT us Bao Pierre MD POINT OF CARE TEST ORDERABLES Final Result * POCT glucose (04/10/2023 8:43 AM CDT) Glucose Blood, POC 101 mg/dL Blood 04/10/2023 8:43 AM CDT Bao Pierre MD POINT OF CARE TEST ORDERABLES Final Result documented in this encounter Visit Diagnoses Diagnosis Hyperlipidemia, unspecified hyperlipidemia type- Primary Risk factors for obstructive sleep apnea Primary hypertension Unspecified essential hypertension Memory difficulties Memory loss documented in this encounter Care Teams Baling Machine Operator Relationship Specialty Start Date End Date Bao Pierre MD [address] [facility] [address] [address] [place] [address] PCP - General 12/22/16 documented as of this encounter
--- OUTSIDE RECORDS SUMMARY | 2024-10-01 08:41 | XMS_ITS | Encounter Summary ---
Author Organization [facility] [employer] [facility] Address [address] [place] [address] Phone Care Team Providers Care Latex Spooler Name Role Phone Bao Pierre MD Primary Care Provider [phone] Reason for Visit * Reason Onset Date Comments Ear Problem 01/19/2024 Encounter Details Date Type Department Care Team (Late st Contact Info) Description 01/19/2024 Telephone [place] [facility] ([facility] - [facility] [address] 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 Author CCM Chronic Pain Care Plan Chronic Care Management Worsening( 8:02 AM PULMONOLOGIST/INTENSIVIST) No Chika Watters, RN Note: Problem: Chronic Pain Goals: 1. Minimize further functional decline 2. Maximize quality of life 3. Control pain Strategies: - Activity/exercise program recommendation - Conservative stepwise pain medicine strategy with multi-disciplinary approach - Recommend healthy lifestyle strategies and compensatory methods as needed documented as of this encounter Visit Diagnoses Not on filedocumented in this encounter Care Teams Latex Spooler Relationship Specialty Start Date End Date Bao Pierre MD [address] [address] PCP - General 12/22/16 documented as of this encounter
--- OUTSIDE RECORDS SUMMARY | 2024-10-01 08:41 | XMS_ITS | Encounter Summary ---
Author Organization [facility] Address [address] [place] [address] Care Team Providers Care Traffic Control Flagger Name Role Phone Bao Pierre MD Primary Care Provider [phone] Encounter Details Date Type Department Care Team (Late st Contact Info) Description 04/23/2024 [facility] [address] [facility] [address] [place] [address] Boa Pierre MD [address] [facility] [address] [place] [address] Social History Tobacco Use Types [...] on file Legal Sex Male 9:03 PM [employer]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[employer] Gender Identity Not on file Sexual Orientation Straight 10/15/2019 10 :34 PM [employer] documented as of this encounter Miscellaneous Notes * Telephone Encounter - Aruna Almaraz MA - 04/23/2024 1:14 PM CDT Family aware and order entered * Telephone Encounter - Aruna Almaraz MA - 04/23/2024 1:14 PM CDT ----- Message from Bao Pierre MD sent at 04/19/2024 9:15 AM CDT ----- Recheck cbc, cmp in 1 month May need to reach out to son (POA) documented in this encounter Plan of Treatment Scheduled Orders Name Type Priority Associated Diagnoses Orde r Schedule Comprehensive metabolic panel Lab Routine Abnormal kidney function Expected: 05/24/2024 (Approximate), Expires: 04/23/2025 CBC with auto differential Lab Routine Abnormal kidney function Expected: 05/24/2024 (Approximate), Expires: 04/23/2025 documented as of this encounter Goals Goal Patient Goal Type Associated Problems Recent Progress Patient-Stated? Author CCM Chronic Pain Care Plan Chronic Care Management Worsening( 8:02 AM [employer]ARMWORK[employer]) Chika Tracy, RN Note: Problem: Chronic Pain Goals: 1. Minimize further functional decline 2. Maximize quality of life 3. Control pain Strategies: - Activity/exercise program recommendation - Conservative stepwise pain medicine strategy with multi-disciplinary approach - Recommend healthy lifestyle strategies and compensatory methods as needed documented as of this encounter Visit Diagnoses Diagnosis Abnormal kidney function- Primary Nonspecific abnormal results of kidney function study documented in this encounter Care Teams Traffic Control Flagger Relationship Specialty Start Date End Date Bao Pierre MD [address] [address] PCP - General 12/22/16 documented as of this encounter
--- OUTSIDE RECORDS SUMMARY | 2024-10-01 08:41 | XMS_ITS | Encounter Summary ---
Author Organization [facility] Address [address] [place] [address] Care Team Providers Care Oleo Hasher And Renderer Name Role Phone Bao Pierre MD Primary Care Provider [phone] Encounter Details Date Type Department Care Team (Late st Contact Info) Description 05/01/2024 [facility] [address] [facility] [address] [place] [id number] Bao Pierre MD [address] [facility] [address] [place] [address] Social History Tobacco Use Types [...] on file Legal Sex Male 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 Pt is currently not on any BP medication. He takes Ascorbic acid-vitm E -- but not every day Aspirin 81mg daily Donepezil 10 mg daily Hydroxyzine 10 mg daily She wasn't sure if pt should be on escitalopram still or not he has not been taking it. Shayy was going to get a BP cuff and get pt's BP. * Telephone Encounter - Bao Pierre MD - 05/01/2024 10:50 AM CDT Stop alfuzosin, Is there any way to check his bp? * Telephone Encounter - Renetta Betts - 05/01/2024 10:38 AM CDT Pt friend, Shayy, calling in. They were at [facility] the morning. Pt started to feel light headed and his legs gave out after getting up out of the car. Shayy was holding on to patient because he sad he was light headed and she wasable to lay patient down. He was shaky (like when you are cold and shake) while on the ground and his eye were starring off, this was less than a min while on the ground and he was able to get up after about 3-5 minutes pt was able to get up without assistance. After about 10 minutes pt forgot thathe had fallen all together. Shayy said pt has light headedness episodes multiple times a day, almost every time he stands up from a standing position. Pt is feeling fine now ever since he was able toget himself up. documented in this encounter Plan of Treatment Not on file documented as of this encounter Goals Goal Patient Goal Type Associated Problems Recent Progress Patient-Stated? Author CCM Chronic Pain Care Plan Chronic Care Management Worsening( 8:02 AM CHECKING DEPARTMENT SUPERVISOR) No Chika Watters, RN Note: Problem: Chronic Pain Goals: 1. Minimize further functional decline 2. Maximize quality of life 3. Control pain Strategies: - Activity/exercise program recommendation - Conservative stepwise pain medicine strategy with multi-disciplinary approach - Recommend healthy lifestyle strategies and compensatory methods as needed documented as of this encounter Visit Diagnoses Not on filedocumented in this encounter Care Teams Oleo Hasher And Renderer Relationship Specialty Start Date End Date Bao Pierre MD [address] [facility] [address] [address] PCP - General 12/22/16 documented as of this encounter
--- OUTSIDE RECORDS SUMMARY | 2024-10-01 08:41 | XMS_ITS | Encounter Summary ---
Author Organization [facility] Address [address] [place] [address] Care Team Providers Care Maintenance Assistant Name Role Phone Bao Pierre MD Primary Care Provider [phone] Reason for Visit * Reason Onset Date Comments BP readings 05/22/2024 Encounter Details Date Type Department Care Team (Late st Contact Info) Description 05/22/2024 [facility] [address] [facility] [address] [place] [address] Bao Pierre MD [address] [facility] [address] [place] [address] BP readings Social History Tobacco Use Types Packs/Day Years [...] on file Legal Sex Male 9: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 Appointment made for tomorrow. * Telephone Encounter - Renetta Betts - 05/22/2024 9:52 AM CDT Calling in because pt's BP is continuing to drop when standing even after he stopping the donepezilfor the last 10 days. Sitting 144/61 Standing 111/52 five minutes after sitting back down 154/68 Recommendations? Also son is asking to speak you with pt not around? Yesterday. satellite project site monitor was taking pt out to his son's house and sn kept saying they were taking him there to be murdered. satellite project site monitor and son believes anxiety medication may need to be upped? documented in this encounter Plan of Treatment Not on file documented as of this encounter Goals Goal Patient Goal Type Associated Problems Recent Progress Patient-Stated? Author CCM Chronic Pain Care Plan Chronic Care Management Worsening( 8:02 AM CASE MANAGEMENT ASSISTANT) Chika Tracy, RN Note: Problem: Chronic Pain Goals: 1. Minimize further functional decline 2. Maximize quality of life 3. Control pain Strategies: - Activity/exercise program recommendation - Conservative stepwise pain medicine strategy with multi-disciplinary approach - Recommend healthy lifestyle strategies and compensatory methods as needed documented as of this encounter Visit Diagnoses Not on filedocumented in this encounter Care Teams Maintenance Assistant Relationship Specialty Start Date End Date Bao Pierre MD [address] [facility] [address] [address] PCP - General 12/22/16 documented as of this encounter
--- OUTSIDE RECORDS SUMMARY | 2024-10-01 08:41 | XMS_ITS | Encounter Summary ---
Author Organization [facility] Address [address] [place] [address] Care Team Providers Care Singeing Torch Operator Name Role Phone Bao Pierre MD Primary Care Provider [phone] Reason for Visit * Reason Comments Follow-up Encounter Details Date Type Department Care Team (Late st Contact Info) Description 08/22/2023 9:30 AM STORE MANAGEMENT TRAINEE Office Visit [facility] [address] [facility] [address] [place] [facility] [place] [phone] Ariadne Vail, KRISS [address] [facility] [address] [place], [place] [id number] Chronic left shoulder pain (Primary Dx); Memory difficulties Social History Tobacco Use Types [...] on file Legal Sex Male 9:03 PM STORE MANAGEMENT 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 Gender Identity Not on file Sexual Orientation Straight 10/15/2019 10 :34 PM STORE MANAGEMENT TRAINEE documented as of this encounter Last Filed Vital Signs Vital Sign Reading Time Taken Comments Blood Pressure 100/50 08/22/2023 9:43 AM STORE MANAGEMENT TRAINEE Pulse 70 08/22/2023 9:43 AM STORE MANAGEMENT TRAINEE Temperature - - Respiratory Rate - - Oxygen Saturation 98% 08/22/2023 9:43 AM STORE MANAGEMENT TRAINEE Inhaled Oxygen Concentration - - Weight 80.3 kg (177 lb) 08/22/2023 9:43 AM STORE MANAGEMENT TRAINEE Height 170.2 cm (5' 7 ) 08/22/2023 9:43 AM STORE MANAGEMENT TRAINEE Body Mass Index 27.72 08/22/2023 9:43 AM STORE MANAGEMENT TRAINEE documented in this encounter Ordered Prescriptions Prescription Sig Dispense Quantity Refills Last Filled Start Date End Date triamcinolone (KENALOG) 0.1 % cream Apply topically 2 (two) times a day 30 g 1 08/22/2023 hydrOXYzine (ATARAX) 10 mg tablet Take 1 tablet (10 mg total) by mouth every 8 (eight) hours as needed for itching 60 tablet 1 08/22/2023 4 escitalopram (LEXAPRO) 5 mg tablet Take 1 tablet (5 mg total) by mouth with evening meal 90 tablet 08/22/2023 4 donepeziL (ARICEPT) 5 mg tablet Take 1 tablet (5 mg total) by mouth daily 90 tablet 1 08/22/2023 4 documented in this encounter Progress Notes * Ariadne Vail, KRISS - 08/22/2023 9:30 AM CST Office Visit Frandy Alvares is a 88 y.o. male here for Follow-up HPI 88M with HTN, HLD, ASCAD and back pain related to spinal stenosis followed by PM. Presents today accompanied by friend, Shayy, with c/o some erythematous spots on forehead/anterior scalp. Non-pruritic. Has Derm app[facility] 10/2023 @[facility]. Shayy reports patient also has worsening anxiety, it is constant. Worsens throughout the days into evenings. He even went to the police station earlier this week over some paranoia regarding family issues. Also c/o worsening L shoulder pain, sometimes locking up and effecting use. 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 Current Medications Current Outpatient Medications: alfuzosin ER (UROXATRAL) 10 mg 24 hr tablet, Take 1 tablet (10 mg total) by mouth daily, Disp: , Rfl: ascorbic acid-vitamin E-biotin 7.5-7.5-1,250 mg-unit-mcg tablet,chewable, Take by mouth 2 (two) times a day, Disp: , Rfl: aspirin 81 mg enteric coated tablet, Take 1 tablet (81 mg total) by mouth daily, Disp: , Rfl: finasteride (PROSCAR) 5 mg tablet, Take 1 tablet (5 mg total) by mouth daily, Disp: , Rfl: fluticasone propionate (FLONASE) 50 mcg/actuation nasal spray, Administer 2 sprays into each nostril daily, Disp: 3 each, Rfl: 0 glucosamine-chondroitin 500-400 mg tablet, Take 1 tablet by mouth daily, Disp: , Rfl: rosuvastatin (CRESTOR) 40 mg tablet, Take 1 tablet (40 mg total) by mouth daily, Disp: 90 tablet, Rfl: 3 donepeziL (ARICEPT) 5 mg tablet, Take 1 tablet (5 mg total) by mouth daily, Disp: 90 tablet, Rfl: 1 escitalopram (LEXAPRO) 5 mg tablet, Take 1 tablet (5 mg total) by mouth with evening meal, Disp: 90tablet, Rfl: 0 hydrOXYzine (ATARAX) 10 mg tablet, Take 1 tablet (10 mg total) by mouth every 8 (eight) hours as needed for itching, Disp: 60 tablet, Rfl: 1 triamcinolone (KENALOG) 0.1 % cream, Apply topically 2 (two) times a day, Disp: 30 g, Rfl: 1 Allergies Allergies [...] ~2013, 2014 HIP SURGERY Left 05/28/2018 DIMITRIOS ARELLANO SURGERY multiple POSTERIOR LAMINECTOMY / DECOMPRESSION LUMBAR SPINE 2015 DE CHOLECYSTECTOMY 2018 ROTATOR CUFF REPAIR SHOULDER SURGERY [...] date: 1964 Quit date: 10/02/2013 Years since quittin.8 Smokeless tobacco: Never Tobacco comments: 5-6 times [...] Assessment/Plan Review of Systems Review of Systems See HPI Physical Exam Physical Exam Constitutional: Appearance: Normal appearance. He is normal weight. He is not ill-appearing. HENT: Head: Normocephalic. Right Ear: External ear normal. Left Ear: [...] refill takes less than 2 seconds. Findings: Rash present. No lesion. Rash is papular. Comments: Scattered mildly erythematous papular rash on anterior scalp Neurological: General: No focal deficit present. Mental Status: He is alert and oriented to person, place, and time. Cranial Nerves: No cranial nerve deficit. Gait: Gait normal. Psychiatric: Mood and Affect: Mood normal. Behavior: Behavior normal. Thought Content: Thought content normal. Judgment: Judgment normal. Vitals BP 100/50 (BP Location: Left arm, Patient Position: Sitting) Pulse 70 Ht 170.2 cm (5' 7 ) Wt 80.3 kg (177 lb) SpO2 98% BMI 27.72 kg/m?? Wt Readings from Last 3 Encounters: 08/22/23 80.3 kg (177 lb) 04/10/23 83.5 kg (184 lb) 02/06/23 83.9 kg (185 lb) Body mass index is 27.72 kg/m??. Assessment and Plan Diagnoses and all orders for this visit: Chronic left shoulder pain (Primary) Assessment & Plan: Ortho referral Orders: - Ambulatory referral to Orthopedic Surgery; Future Memory difficulties Assessment & Plan: Ok to take aricept in AM as no one is there to administer in PM Will trial escitalopram 5mg with evening meal before help leaves, reach out in 4-6 weeks with condition update Atarax PRN Other orders - donepeziL (ARICEPT) 5 mg tablet; Take 1 tablet (5 mg total) by mouth daily - escitalopram (LEXAPRO) 5 mg tablet; Take 1 tablet (5 mg total) by mouth with evening meal - hydrOXYzine (ATARAX) 10 mg tablet; Take 1 tablet (10 mg total) by mouth every 8 (eight) hours as needed for itching - triamcinolone (KENALOG) 0.1 % cream; Apply topically 2 (two) times a day Recommendations and Follow up No follow-ups on file. Ariadne Vail NP Cosigned by Bao Pierre MD at 08/23/2023 9:02 AM STORE MANAGEMENT TRAINEE E MANAGEMENT TRAINEE E MANAGEMENT TRAINEE documented in this encounter Miscellaneous Notes * Assessment & Plan Note - Ariadne Vail NP - 08/22/2023 10:05 AM STORE MANAGEMENT TRAINEE Associated Problem(s): Chronic left shoulder pain Ortho referral E MANAGEMENT TRAINEE * Assessment & Plan Note - Ariadne Vail NP - 08/22/2023 10:03 AM STORE MANAGEMENT TRAINEE Associated Problem(s): Memory difficulties Ok to take aricept in AM as no one is there to administer in PM Will trial escitalopram 5mg with evening meal before help leaves, reach out in 4-6 weeks with condition update Atarax PRN E MANAGEMENT TRAINEE documented in this encounter Plan of Treatment Not on file documented as of this encounter Goals Goal Patient Goal Type Associated Problems Recent Progress Patient-Stated? Author CCM Chronic Pain Care Plan Chronic Care Management Worsening( 8:02 AM STORE MANAGEMENT TRAINEE) No Chika Watters, RN Note: Problem: Chronic Pain Goals: 1. Minimize further functional decline 2. Maximize quality of life 3. Control pain Strategies: - Activity/exercise program recommendation - Conservative stepwise pain medicine strategy with multi-disciplinary approach - Recommend healthy lifestyle strategies and compensatory methods as needed documented as of this encounter Visit Diagnoses Diagnosis Chronic left shoulder pain- Primary Pain in joint, shoulder region Memory difficulties Memory loss documented in this encounter Discontinued Medications Medication Sig Discontinue Reason Start Date End Da te azelastine (ASTELIN) 137 mcg (0.1 %) nasal spray Administer 1 spray into each nostril 2 (two) times a day Use in each nostril as directed 03/08/2022 08/22/2023 clopidogreL (PLAVIX) 75 mg tablet Take 1 tablet (75 mg total) by mouth daily 08/22/2023 donepeziL (ARICEPT) 5 mg tablet Take 1 tablet (5 mg total) by mouth nightly 02/08/2023 08/22/2023 glucosamine sulfate 500 mg capsule GLUCOSAMINE CAPSULE 09/13/2013 08/22/2023 inulin 2 gram tablet,chewable Take 1 tablet by mouth 2 (two) times a day 08/22/2023 UNABLE TO FIND prevegen daily 08/22/2023 documented as of this encounter Care Teams Singeing Torch Operator Relationship Specialty Start Date End Date Bao Pierre MD [address] [place] [address] PCP - General 12/22/16 documented as of this encounter
--- OUTSIDE RECORDS SUMMARY | 2024-10-01 08:41 | XMS_ITS | Encounter Summary ---
Author Organization [facility] Address [address] [place] [address] Care Team Providers Care Ethnic Origins Teacher Name Role Phone Bao Pierre MD Primary Care Provider [phone] Encounter Details Date Type Department Care Team (Late st Contact Info) Description 05/27/2024 [facility] [address] [facility] [address] [place] [phone] Bao Pierre MD [address] [facility] [address] [place] [address] Social History Tobacco Use Types [...] on file Legal Sex Male 9:03 PM 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 Gender Identity Not on file Sexual Orientation Straight 10/15/2019 10 :34 PM SEROLOGIST documented as of this encounter Ordered Prescriptions Prescription Sig Dispense Quantity Refills Last Filled Start Date End Date hydrOXYzine (ATARAX) 25 mg tablet Take 1 tablet (25 mg total) by mouth 2 (two) times a day 60 tablet 1 05/27/2024 2024 documented in this encounter Miscellaneous Notes * Telephone Encounter - Aruna Almaraz MA - 05/27/2024 3:25 PM CDT Family aware and rx sent * Telephone Encounter - Bao Pierre MD - 05/27/2024 1:37 PM CDT Rather than prn meds Lets try hydroxyzine 25 bid * Telephone Encounter - Aruna Almaraz MA - 05/27/2024 1:32 PM CDT Shayy calling Asking for a prn anxiety medication when he has an episode of anxiety to the point of imagining things and he becomes angry He also is having trouble falling asleep due to the anxiety and asking what to do for that He is on escitalopram and Hydroxyzine Phar: Roni documented in this encounter Plan of Treatment Not on file documented as of this encounter Goals Goal Patient Goal Type Associated Problems Recent Progress Patient-Stated? Author CCM Chronic Pain Care Plan Chronic Care Management Worsening( 8:02 AM SEROLOGIST) Chika Tracy, RN Note: Problem: Chronic Pain [...] Discontinue Reason Start Date End Da te hydrOXYzine (ATARAX) 10 mg tablet TAKE 1 TABLET(10 MG) BY MOUTH EVERY 8 HOURS NEEDED FOR ITCHING Dose adjustment 02/12/2024 05/27/2024 documented as of this encounter Care Teams Ethnic Origins Teacher Relationship Specialty Start Date End Date Bao Pierre MD [address] [place] [address] PCP - General 12/22/16 documented as of this encounter
--- OUTSIDE RECORDS SUMMARY | 2024-10-01 08:41 | XMS_ITS | Encounter Summary ---
Author Organization [facility] Address [address] [place] [address] Care Team Providers Care Lunchroom Mother Name Role Phone Bao Pierre MD Primary Care Provider [phone] Reason for Visit * Reason Onset Date Comments Memory Loss 04/12/2024 Encounter Details Date Type Department Care Team (Late st Contact Info) Description 04/12/2024 [facility] [address] [facility] [address] [place] [address] Bao Pierre MD [address] [facility] [address] [place] [address] Memory Loss Social History Tobacco Use Types Packs/Day Years [...] on file Legal Sex Male 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 * Telephone Encounter - Renetta Betts - 04/12/2024 2:23 PM CDT Called, no voicemail set up on phone. I went ahead and made pt appointment on 04/18 at 10:[address] Pierre is booked out and there was a cancellation. * Telephone Encounter - Bao Pierre MD - 04/12/2024 11:42 AM CDT He will need a follow up, with me only, * Telephone Encounter - Renetta Betts - 04/12/2024 8:55 AM CDT Shayy called in and said that her and pt's son are trying to get help getting pt not to drive anymore. Due to his memory pt is forgetting like where he is going, the rules of the road, and they are concerned. They have spoke with the DMV and was told that it would have to be his doctor to revoke pt's license as they can't do it due to memory. Asking on advise how to move forward. She said that sometimes pt remembers good and then at other times he can't remember and when they bring this up to patient he becomes very angry especially when they discuss removing his driving. Shedid say it seems to be worse the later in the day. documented in this encounter Plan of Treatment Not on file documented as of this encounter Goals Goal Patient Goal Type Associated Problems Recent Progress Patient-Stated? Author CCM Chronic Pain Care Plan Chronic Care Management Worsening( 8:02 AM VOLUNTEER SERVICES MANAGER) Chika Tracy, RN Note: Problem: Chronic Pain Goals: 1. Minimize further functional decline 2. Maximize quality of life 3. Control pain Strategies: - Activity/exercise program recommendation - Conservative stepwise pain medicine strategy with multi-disciplinary approach - Recommend healthy lifestyle strategies and compensatory methods as needed documented as of this encounter Visit Diagnoses Not on filedocumented in this encounter Care Teams Lunchroom Mother Relationship Specialty Start Date End Date Bao Pierre MD [address] [address] PCP - General 12/22/16 documented as of this encounter
--- OUTSIDE RECORDS SUMMARY | 2024-10-01 08:41 | XMS_ITS | Encounter Summary ---
Author Organization [facility] Address [address] [place] [address] Care Team Providers Care Lumber Cutter Name Role Phone Bao Pierre MD Primary Care Provider [phone] Reason for Visit * Reason Comments Dizziness lightheaded Encounter Details Date Type Department Care Team (Late st Contact Info) Description 05/23/2024 1:15 PM CDT Office Visit [facility] [address] [facility] [address] [place] [address] Bao Pierre MD [address] [facility] [address] [place] [address] 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, psychotic disturbance, mood disturbance, or anxiety, unspecified timing of dementia onset (HCC) (Primary Dx) Social History Tobacco Use Types [...] on file Legal Sex Male 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 Gender Identity Not on file Sexual Orientation Straight 10/15/2019 10 :34 PM HAND BINDER CUTTER documented as of this encounter Last Filed Vital Signs Vital Sign Reading Time Taken Comments Blood Pressure 134/71 05/23/2024 1:24 PM CDT Pulse 61 05/23/2024 1:24 PM CDT Temperature - - Respiratory Rate - - Oxygen Saturation - - Inhaled Oxygen Concentration - - Weight 78.9 kg (174 lb) 05/23/2024 1:24 PM CDT Height 170.2 cm (5' 7 ) 05/23/2024 1:24 PM CDT Body Mass Index 27.25 05/23/2024 1:24 PM CDT documented in this encounter Ordered Prescriptions Prescription Sig Dispense Quantity Refills Last Filled Start Date End Date escitalopram (LEXAPRO) 10 mg tabletIndications: Anxiety with Depression Take 1 tablet (10 mg total) by mouth daily 30 tablet 5 05/23/2024 11/19/2024 documented in this encounter Progress Notes * Bao Pierre MD - 05/23/2024 1:15 PM CDT Images from the original note were not included. Subjective/Objective Patient ID: Frandy Alvares is a 88 y.o. male. Chief Complaint Dizziness (lightheaded) Dizziness Patient with history of dementia. Here for follow-up of a dizziness. At times he was said to be dizzy, hypotensive. All meds except donepezil/ lexapro have been stopped. No other complaints. Past Surgical History: Procedure Laterality Date BACK SURGERY CARDIAC CATHETERIZATION 2013 CATARACT EXTRACTION, BILATERAL ~2013, 2014 HIP SURGERY Left 05/28/[place] [facility] [place] POSTERIOR LAMINECTOMY / DECOMPRESSION LUMBAR SPINE 2015 [place] CHOLECYSTECTOMY 2018 ROTATOR CUFF REPAIR SHOULDER SURGERY [...] Family history of scoliosis - (Added by MIRIAN Conv) Anesthesia problems Neg Hx Immunization History Administered Date(s) Administered Influenza, Quad, Adjuvantated, Intramuscular 08/07/2021 Influenza, Quadrivalent, Split, Preservative Free, Intramuscular 07/31/2018, 07/01/2019, 07/01/2019 Influenza, Trivalent, High Dose, Split, Preservative Free, Intramuscular 09/06/2012, 08/11/2016, 07/09/2017, 07/09/2017, 07/09/2017, 06/18/2020 Influenza, Trivalent, IM (MDV) 07/05/2013, 07/18/2014, 07/18/2014 Influenza, Unspecified 07/11/2001, 08/19/2003, 06/02/2006, 08/02/2007, 09/02/2008, 07/02/2009, 07/02/2010, 06/27/2011, 07/05/2013, 07/02/2014, 07/11/2015, 07/02/2016, 08/11/2016, 07/09/2017, 08/02/2019, 08/02/2019, 06/18/2020 Moderna SARS-CoV-2 Monovalent Vaccination (12+ YRS) 11/22/2020, 12/20/2020, 08/07/2021 Pneumococcal Conjugate PCV 13 03/04/2015 Pneumococcal, Unspecified 10/04/2002, 03/02/2004 ZOSTER LIVE 12/01/2007 Current Outpatient Medications Medication Sig ascorbic acid-vitamin E-biotin 7.5-7.5-1,250 mg-unit-mcg tablet,chewable Take by mouth 2 (two) times a day aspirin 81 mg enteric coated tablet Take 1 tablet (81 mg total) by mouth daily donepeziL (ARICEPT) 10 mg tablet Take 1 tablet (10 mg total) by mouth nightly escitalopram (LEXAPRO) 10 mg tablet Take 1 tablet (10 mg total) by mouth daily fluticasone propionate (FLONASE) 50 mcg/actuation nasal spray Administer 2 sprays into each nostrildaily glucosamine-chondroitin 500-400 mg tablet Take 1 tablet by mouth daily hydrOXYzine (ATARAX) 10 mg tablet TAKE 1 TABLET(10 MG) BY MOUTH EVERY 8 HOURS NEEDED FOR ITCHING triamcinolone (KENALOG) 0.1 % cream Apply topically 2 (two) times a day Review of Systems Neurological: Positive for dizziness. Patient Vital Signs for the past 24 hrs: BP Pulse Height Weight 05/23/24 1324 134/71 61 170.2 cm (5' 7 ) 78.9 kg (174 lb) Wt Readings from Last 3 Encounters: 05/23/24 78.9 kg (174 lb) 04/18/24 77.6 kg (171 lb) 02/07/24 82.1 kg (181 lb) Physical Exam Constitutional: Appearance: Normal appearance. 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 No orthostasis. Will increase Lexapro to 10 mg daily. Continue donepezil. Check labs. Other orders - escitalopram (LEXAPRO) 10 mg tablet; Take 1 tablet (10 mg total) by mouth daily Labs No results found for: HGBA1C Lab [...] A1C Lab Results Component Value Date CREATININE 1.29 (H) 04/18/2024 CREATININE 1.01 04/10/2023 CREATININE 1.11 03/25/2022 Lab Results Component Value Date COLORU Yellow 04/18/2024 CLARITYU Clear 02/06/2023 GLUCOSEUR Negative 04/18/2024 BILIRUBINUR Negative 02/06/2023 KETONESU Negative 04/18/2024 SPECGRAVU 1.025 02/06/2023 BLOODUR Negative 05/02/2019 HAYLEY 5.0 02/06/2023 PROTUR Negative 02/06/2023 UROBILINOGEN 0.2 02/06/2023 POCURNITRITE Negative 02/06/2023 LOTNUMBER [id number] 02/06/2023 Bao Pierre MD documented in this encounter Plan of Treatment Not on file documented as of this encounter Goals Goal Patient Goal Type Associated Problems Recent Progress Patient-Stated? Author CCM Chronic Pain Care Plan Chronic Care Management Worsening( 8:02 AM HAND BINDER CUTTER) Chika Tracy, RN Note: Problem: Chronic Pain Goals: 1. Minimize further functional decline 2. Maximize quality of life 3. 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, psychotic disturbance, mood disturbance, or anxiety, unspecified timing of dementia onset (HCC) COMPREHENSIVE METABOLIC PANEL Routine 05/23/2024 2:25 PM CDT 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, psychotic disturbance, mood disturbance, or anxiety, unspecified timing of dementia onset (HCC) documented in this encounter Results * (ABNORMAL) Comprehensive metabolic panel (05/23/2024 2:25 PM CDT) Glucose 80 70 - 99 mg/dL [facility] - 01 BUN 32(H) 8 - 27 mg/dL [facility] - 01 Creatinine, Serum 1.11 0.76 - 1.27 mg/dL [facility] - 01 eGFR 64 >59 mL/min/1.7 3 [facility] - 01 BUN/creat ratio 29(H) 10 - 24 [facility] - 01 Sodium 142 134 - 144 mmol/L [facility] - 01 Potassium, sr 4.7 3.5 - 5.2 mmol/L [facility] - 01 Chloride 104 96 - 106 mmol/L [facility] - 01 CO2 25 20 - 29 mmol/L [facility] - 01 Calcium 8.7 8.6 - 10.2 mg/dL [facility] - 01 Protein, sr 5.9(L) 6.0 - 8.5 g/dL [facility] - 01 Albumin 3.9 3.7 - 4.7 g/dL [facility] - 01 Globulin, Total 2.0 1.5 - 4.5 g/dL [facility] - 01 Bilirubin, Total 0.3 0.0 - 1.2 mg/dL [facility] - 01 Alk phos 68 44 - 121 IU/L [facility] - 01 AST 19 0 - 40 IU/L [facility] - 01 ALT 12 0 - 44 IU/L [facility] - 01 Blood 05/23/2024 2:25 PM CDT 05/23/2024 Narrative [facility] - 05/24/2024 7:11 AM CDT Performed at: ??01 - [facility] [address], [place], [place] ??[id number] Utility Systems Repairer Operator: Abdulkadir Sebastian PhD, Phone: ??[phone] Bao Pierre MD LAB BLOOD ORDERABLES Final Re sult [facility] - 01 * (ABNORMAL) CBC with auto differential (05/23/2024 2:25 PM CDT) WBC 7.4 3.4 - 10.8 x10E3/uL [facility] - 01 RBC 3.83(L) 4.14 - 5.80 x10E6/uL [facility] - 01 Hgb 12.5(L) 13.0 - 17.7 g/dL [facility] - 01 Hct 37.6 37.5 - 51.0 % [facility] - 01 MCV 98(H) 79 - 97 fL [facility] - 01 MCH 32.6 26.6 - 33.0 pg [facility] - 01 MCHC 33.2 31.5 - 35.7 g/dL [facility] - 01 Rdw 12.3 11.6 - 15.4 % [facility] - 01 Platelets 155 150 - 450 x10E3/uL [facility] - 01 Neutrophils pct 73 Not Estab. % [facility] - 01 Lymphs pct 17 Not Estab. % [facility] - 01 Monocytes pct 7 Not Estab. % [facility] - 01 Eosinophils pct 2 Not Estab. % [facility] - 01 Basophil pct 1 Not Estab. % [facility] - 01 Neutrophil abs 5.4 1.4 - 7.0 x10E3/uL [facility] - 01 Lymphs (Absolute) 1.3 0.7 - 3.1 x10E3/uL [facility] - 01 Monocyte abs 0.5 0.1 - 0.9 x10E3/uL [facility] - 01 Eosinophils, abs 0.2 0.0 - 0.4 x10E3/uL [facility] - 01 Basophils, abs 0.1 0.0 - 0.2 x10E3/uL [facility] - 01 Immature Granulocytes 0 Not Estab. 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, psychotic disturbance, mood disturbance, or anxiety, unspecified timing of dementia onset (HCC)- Primary documented in this encounter Discontinued Medications Medication Sig Discontinue Reason Start Date End Da te alfuzosin ER (UROXATRAL) 10 mg 24 hr tabletIndications: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
--- OUTSIDE RECORDS SUMMARY | 2024-10-01 08:41 | XMS_ITS | Encounter Summary ---
Author Organization [facility] Address [address] [place] [address] Care Team Providers Care Local Flatbed Driver Name Role Phone Bao Pierre MD Primary Care Provider [phone] Reason for Referral * Diagnostic Imaging (Routine) - Closed Specialty Diagnoses / Procedures Referred By Contac t Referred To Contact Diagnoses Primary hypertension Mixed hyperlipidemia Memory difficulties Bilateral hip pain Procedures XR Hip Left 2+ Vw Bao Pierre MD [address] [address] Phone: tel: fax: [address] [phone] Referral ID Status Reason Start Date Expiration Date Visits Re quested Visits Authorized [id number] Closed 04/18/2024 05/18/2025 1 1 * Diagnostic Imaging (Routine) - Closed Specialty Diagnoses / Procedures Referred By Contac t Referred To Contact Diagnoses Primary hypertension Mixed hyperlipidemia Memory difficulties Bilateral hip pain Procedures XR Hip Right 2+ Vw Bao Pierre MD [address] [address] Phone: tel: fax: [address] [phone] Referral ID Status Reason Start Date Expiration Date Visits Re quested Visits Authorized [id number] Closed 04/18/2024 05/18/2025 1 1 Reason for Visit * Diagnostic Imaging (Routine) - Closed Specialty Diagnoses / Procedures Referred By Contac t Referred To Contact Diagnoses Primary hypertension Mixed hyperlipidemia Memory difficulties Bilateral hip pain Procedures XR Hip Right 2+ Vw Bao Pierre MD [address] [place] [address] Phone: tel: fax: [address] [phone] Referral ID Status Reason Start Date Expiration Date Visits Re quested Visits Authorized [id number] Closed 04/18/2024 05/18/2025 1 1 Encounter Details Date Type Department Care Team (Latest Contact Info) Description 04/18/2024 11:49 AM CDT - 04/18/2024 11:59 PM CDT Hospital Encounter [facility] [address] [place] [id number] Primary hypertension; Mixed hyperlipidemia; Memory difficulties; Bilateral hip pain Discharge Disposition: Discharge to home or self care Social History Tobacco Use Types Packs/Day Years [...] on file Legal Sex 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 Gender Identity Not on file Sexual Orientation Straight 10/15/2019 10 :34 PM PHARMACY CUSTOMER CARE SPECIALIST documented as of this encounter Medications at Time of Discharge ascorbic acid-vitamin E-biotin 7.5-7.5-1,250 mg-unit-mcg tablet,chewable Take by mouth 2 (two) times a day aspirin 81 mg enteric coated tablet Take 1 tablet (81 mg total) by mouth daily donepeziL (ARICEPT) 10 mg tabletIndications :Mild to Moderate Alzheimer's Type Dementia Take 1 tablet (10 mg total) by mouth nightly 90 tablet 04/18/2024 5 fluticasone propionate (FLONASE) 50 mcg/actuation nasal spray Administer 2 sprays into each nostril daily 1 each 1 01/19/2024 glucosamine-chond roitin 500-400 mg tablet Take 1 tablet by mouth daily triamcinolone (KENALOG) 0.1 % cream Apply topically 2 (two) times a day 30 g 1 08/22/2023 alfuzosin ER (UROXATRAL) 10 mg 24 hr tabletIndications :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 Take 1 tablet (10 mg total) by mouth daily 4 escitalopram (LEXAPRO) 5 mg tablet Take 1 tablet (5 mg total) by mouth with evening meal 90 tablet 08/22/2023 4 finasteride (PROSCAR) 5 mg tabletIndications :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 Take 1 tablet (5 mg total) by mouth daily 4 hydrOXYzine (ATARAX) 10 mg tablet TAKE 1 TABLET(10 MG) BY MOUTH EVERY 8 HOURS NEEDED FOR ITCHING 60 tablet 1 02/12/2024 4 documented as of this encounter Discharge Disposition Disposition Code Departure Means Destination Discharge to home or self care documented in this encounter Plan of Treatment Not on file documented as of this encounter Goals Goal Patient Goal Type Associated Problems Recent Progress Patient-Stated? Author CCM Chronic Pain Care Plan Chronic Care Management Worsening( 8:02 AM PHARMACY CUSTOMER CARE SPECIALIST) No Chika Watters, RN Note: Problem: Chronic Pain Goals: 1. Minimize further functional decline 2. Maximize quality of life 3. Control pain Strategies: - Activity/exercise program recommendation - Conservative stepwise pain medicine strategy with multi-disciplinary approach - Recommend healthy lifestyle strategies and compensatory methods as needed documented as of this encounter Procedures Procedure Name Priority Date/Time Associated Diagnosis Comments XR HIP RIGHT 2 OR 3 VIEWS Schedule Routine, Read Routine (OP Routine) 04/18/2024 12:07 PM CDT Primary hypertension Mixed hyperlipidemia Memory difficulties Bilateral hip pain XR HIP LEFT 2 OR 3 VIEWS Schedule Routine, Read Routine (OP Routine) 04/18/2024 12:07 PM CDT Primary hypertension Mixed hyperlipidemia Memory difficulties Bilateral hip pain documented in this encounter Results * XR Hip Left 2+ Vw (04/18/2024 12:07 PM CDT) Anatomical Region Laterality Modality Lower Extremities, Hip, Pelvis Left C omputed Radiography 04/18/2024 12:4 6 PM CDT Impressions 04/18/2024 1:22 PM CDT 1. 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 2. ??Moderate right hip osteoarthritis. Dictated by: Prieto Santillan M.D. The radiology attending physician has personally reviewed this study, and had reviewed and/or edited this written report and agrees with it. Electronically signed by: Van Spaulding M.D. Narrative 04/18/2024 1:22 PM CDT EXAMINATION: XR HIP RIGHT 2 OR 3 VIEWS, XR HIP LEFT 2 OR 3 VIEWS HISTORY: Bilateral hip pain FINDINGS: 2 views each of both hips are submitted for interpretation with 02/28/2022 comparison. Unchanged left total hip arthroplasty in expected position. ??Moderate right hip osteoarthritis. ??No acute fracture or subluxation. Procedure Note Van Spaulding MD PhD - 04/18/2024 EXAMINATION: XR HIP RIGHT 2 OR 3 VIEWS, XR HIP LEFT 2 OR 3 VIEWS HISTORY: Bilateral hip pain FINDINGS: 2 views each of both hips are submitted for interpretation with 02/28/2022 comparison. Unchanged left total hip arthroplasty in expected position. Moderate right hip osteoarthritis. No acute fracture or subluxation. IMPRESSION: 1. 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 2. Moderate right hip osteoarthritis. Dictated by: Prieto Santillan M.D. The radiology attending physician has personally reviewed this study, and had reviewed and/or edited this written report and agrees with it. Electronically signed by: Van Spaulding M.D. Bao Pierre MD IMG XR PROCEDURES Final Resul t * XR Hip Right 2+ Vw (04/18/2024 12:07 PM CDT) Anatomical Region Laterality Modality Lower Extremities, Hip, Pelvis Right C omputed Radiography 04/18/2024 12:4 6 PM CDT Impressions 04/18/2024 1:22 PM CDT 1. 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 2. ??Moderate right hip osteoarthritis. Dictated by: Prieto Santillan M.D. The radiology attending physician has personally reviewed this study, and had reviewed and/or edited this written report and agrees with it. Electronically signed by: Van Spaulding M.D. Narrative 04/18/2024 1:22 PM CDT EXAMINATION: XR HIP RIGHT 2 OR 3 VIEWS, XR HIP LEFT 2 OR 3 VIEWS HISTORY: Bilateral hip pain FINDINGS: 2 views each of both hips are submitted for interpretation with 02/28/2022 comparison. Unchanged left total hip arthroplasty in expected position. ??Moderate right hip osteoarthritis. ??No acute fracture or subluxation. Procedure Note Van Spaulding MD PhD - 04/18/2024 EXAMINATION: XR HIP RIGHT 2 OR 3 VIEWS, XR HIP LEFT 2 OR 3 VIEWS HISTORY: Bilateral hip pain FINDINGS: 2 views each of both hips are submitted for interpretation with 02/28/2022 comparison. Unchanged left total hip arthroplasty in expected position. Moderate right hip osteoarthritis. No acute fracture or subluxation. IMPRESSION: 1. 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 2. Moderate right hip osteoarthritis. Dictated by: Prieto Santillan M.D. The radiology attending physician has personally reviewed this study, and had reviewed and/or edited this written report and agrees with it. Electronically signed by: Van Spauldnig M.D. Bao Pierre MD IMG XR PROCEDURES Final Resul t documented in this encounter Visit Diagnoses Diagnosis Primary hypertension Unspecified essential hypertension Mixed hyperlipidemia Memory difficulties Memory loss Bilateral hip pain Pain in joint, pelvic region and thigh documented in this encounter Care Teams Local Flatbed Driver Relationship Specialty Start Date End Date Bao Pierre MD [address] [address] PCP - General 12/22/16 documented as of this encounter
--- OUTSIDE RECORDS SUMMARY | 2024-10-01 08:41 | XMS_ITS | Encounter Summary ---
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 Gender Identity Not on file Sexual Orientation Straight 10/15/2019 10 :34 PM MEDICAL AIDES TEACHER documented as of this encounter Ordered Prescriptions Prescription Sig Dispense Quantity Refills Last Filled Start Date End Date QUEtiapine (SEROquel) 25 mg tablet Take 0.5 tablets (12.5 mg total) by mouth 2 (two) times a day 30 tablet 05/29/2024 4 documented in this encounter Miscellaneous Notes * Telephone Encounter - Aruna Almaraz MA - 05/29/2024 12:42 PM CDT Rx sent and lm for Frandy lujan * Telephone Encounter - Aruna Almaraz MA - 05/29/2024 10:00 AM CDT Son calling pt is very angry and paranoid He was angry last night had panic attack and was yelling receiving associate could not contain him or calm him He has started higher dose of hyroxazine 25mg bid Asking for something to calm him See phone note [facility] documented in this encounter Plan of Treatment Not on file documented as of this encounter Goals Goal Patient Goal Type Associated Problems Recent Progress Patient-Stated? Author CCM Chronic Pain Care Plan Chronic Care Management Worsening( 8:02 AM MEDICAL AIDES TEACHER) Chika Tracy, RN Note: Problem: Chronic Pain Goals: 1. Minimize further functional decline 2. Maximize quality of life 3. Control pain Strategies: - Activity/exercise program recommendation - Conservative stepwise pain medicine strategy with multi-disciplinary approach - Recommend healthy lifestyle strategies and compensatory methods as needed documented as of this encounter Visit Diagnoses Not on filedocumented in this encounter Care Teams Exhibit Designer Relationship Specialty Start Date End Date Bao Pierre MD [address] [address] PCP - General 12/22/16 documented as of this encounter
--- OUTSIDE RECORDS SUMMARY | 2024-10-01 08:41 | XMS_ITS | Encounter Summary ---
Author Organization [facility] Address [address] [place] [address] Care Team Providers Care Global Position System Technician Name Role Phone Bao Pierre MD Primary Care Provider [phone] Reason for Referral * Diagnostic Imaging (Routine) - Closed Specialty Diagnoses / Procedures Referred By Contac t Referred To Contact Diagnoses Primary hypertension Mixed hyperlipidemia Memory difficulties Bilateral hip pain Procedures XR Hip Right 2+ Vw Bao Pierre MD [address] [address] Phone: tel: fax: [address] [phone] Referral ID Status Reason Start Date Expiration Date Visits Re quested Visits Authorized [id number] Closed 04/18/2024 05/18/2025 1 1 * Diagnostic Imaging (Routine) - Closed Specialty Diagnoses / Procedures Referred By Contac t Referred To Contact Diagnoses Primary hypertension Mixed hyperlipidemia Memory difficulties Bilateral hip pain Procedures XR Hip Left 2+ Vw Bao Pierre MD [address] [address] Phone: tel: fax: [address] [phone] Referral ID Status Reason Start Date Expiration Date Visits Re quested Visits Authorized [id number] Closed 04/18/2024 05/18/2025 1 1 Reason for Visit * Reason Comments Memory Loss Depression Hyperlipidemia Hip Pain Encounter Details Date Type Department Care Team (Late st Contact Info) Description 04/18/2024 10:30 AM CDT Office Visit [facility] [address] [place] [address] Bao Pierre MD [address] [facility] [address] [place] [address] Primary hypertension (Primary Dx); Mixed hyperlipidemia; Memory difficulties; Bilateral hip pain Social History Tobacco Use Types Packs/Day Years [...] on file 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 Gender Identity Not on file Sexual Orientation Straight 10/15/2019 10 :34 PM EQUIPMENT OILER documented as of this encounter Last Filed Vital Signs Vital Sign Reading Time Taken Comments Blood Pressure 110/64 04/18/2024 10:41 AM CDT Pulse 66 04/18/2024 10:41 AM CDT Temperature - - Respiratory Rate - - Oxygen Saturation - - Inhaled Oxygen Concentration - - Weight 77.6 kg (171 lb) 04/18/2024 10:41 AM CDT Height 170.2 cm (5' 7 ) 04/18/2024 10:41 AM CDT Body Mass Index 26.78 04/18/2024 10:41 AM CDT documented in this encounter Ordered Prescriptions Prescription Sig Dispense Quantity Refills Last Filled Start Date End Date donepeziL (ARICEPT) 10 mg tabletIndications: Mild to Moderate Alzheimer's Type Dementia Take 1 tablet (10 mg total) by mouth nightly 90 tablet 04/18/2024 5 documented in this encounter Progress Notes * Bao Pierre MD - 04/18/2024 10:30 AM CDT Images from the original note were not included. Subjective/Objective Patient ID: Frandy Alvares is a 88 y.o. male. Chief Complaint Memory Loss, Depression, Hyperlipidemia, and Hip Pain Memory Loss Pertinent negatives include no abdominal pain, chest pain, fatigue, fever, headaches, nausea, rash,sore throat, vomiting or weakness. DepressionPatient is not experiencing: nervousness/anxiety, palpitations and shortness of breath. Hyperlipidemia Pertinent negatives include no chest pain or shortness of breath. Hip Pain Patient with history of coronary disease, osteoarthritis, hyperlipidemia, memory loss. Has been living at home alone. He does have a caregiver who is here today as his collateral source. He feels he is doing well. The caregiver reports that she notes increasing memory loss as well as some issues attimes driving. There also is some concern of some right hip pain. Past Surgical History: Procedure Laterality Date BACK [...] LIVE 12/01/2007 Current Outpatient Medications Medication Sig alfuzosin ER (UROXATRAL) 10 mg 24 hr tablet Take 1 tablet (10 mg total) by mouth daily ascorbic acid-vitamin E-biotin 7.5-7.5-1,250 mg-unit-mcg tablet,chewable Take by mouth 2 (two) times a day aspirin 81 mg enteric coated tablet Take 1 tablet (81 mg total) by mouth daily escitalopram (LEXAPRO) 5 mg tablet Take 1 tablet (5 mg total) by mouth with evening meal finasteride (PROSCAR) 5 mg tablet Take 1 [...] (two) times a day Review of Systems Constitutional: Negative for fatigue, [...] past 24 hrs: BP Pulse Height Weight 04/18/24 1041 110/64 66 170.2 cm (5' 7 ) 77.6 kg (171 lb) Wt Readings from Last 3 Encounters: 04/18/24 77.6 kg (171 lb) 02/07/24 82.1 kg (181 lb) 01/19/24 81.6 kg (180 lb) Physical Exam Constitutional: Appearance: Normal appearance. [...] Diagnoses and all orders for this visit: Primary hypertension (I10) (Primary) Assessment & Plan: BP at target. Continue present Rx Mixed hyperlipidemia (E78.2) Assessment & Plan: Off medication periods will check labs. Memory difficulties (R41.3) Assessment & Plan: Discussed at length. I feel he has worsening dementia. Advised not to drive certainly not without assistance. Will increase donepezil 10 mg daily. Check labs. Bilateral hip pain (M25.551, M25.552) Comments: Check hip x-rays Other orders - donepeziL (ARICEPT) 10 mg tablet; Take 1 tablet (10 mg total) by mouth nightly - CBC with auto differential; Future - Comprehensive metabolic panel; Future - TSH; Future - Urinalysis reflex to microscopic and culture; Future Labs No results found for: HGBA1C [...] A1C Lab Results Component Value Date CREATININE 1.01 04/10/2023 CREATININE 1.11 03/25/2022 CREATININE 1.05 12/03/2019 Lab Results Component Value Date COLORU Yellow 04/10/2023 CLARITYU Clear 02/06/2023 GLUCOSEUR Negative 04/10/2023 BILIRUBINUR Negative 02/06/2023 KETONESU Negative 04/10/2023 SPECGRAVU 1.025 02/06/2023 BLOODUR Negative 05/02/2019 HAYLEY 5.0 02/06/2023 PROTUR Negative 02/06/2023 UROBILINOGEN 0.2 02/06/2023 POCURNITRITE Negative 02/06/2023 LOTNUMBER [id number] 02/06/2023 Bao Pierre MD documented in this encounter Miscellaneous Notes * Assessment & Plan Note - Bao Pierre MD - 04/18/2024 11:23 AM CDT Associated Problem(s): Memory difficulties Discussed at length. I feel he has worsening dementia. Advised not to drive certainly not without assistance. Will increase donepezil 10 mg daily. Check labs. * Assessment & Plan Note - Bao Pierre MD - 04/18/2024 11:23 AM CDT Associated Problem(s): Hypertension BP at target. Continue present Rx * Assessment & Plan Note - Bao Pierre MD - 04/18/2024 11:23 AM CDT Associated Problem(s): HLD (hyperlipidemia) Off medication periods will check labs. documented in this encounter Plan of Treatment Not on file documented as of this encounter Goals Goal Patient Goal Type Associated Problems Recent Progress Patient-Stated? Author CCM Chronic Pain Care Plan Chronic Care Management Worsening( 8:02 AM EQUIPMENT OILER) Chika Tracy, RN Note: Problem: Chronic Pain Goals: 1. Minimize further functional decline 2. Maximize quality of life 3. Control pain Strategies: - Activity/exercise program recommendation - Conservative stepwise pain medicine strategy with multi-disciplinary approach - Recommend healthy lifestyle strategies and compensatory methods as needed documented as of this encounter Procedures Procedure Name Priority Date/Time Associated Diagnosis Comments MICROSCOPIC EXAMINATION Routine 04/18/2024 11:37 AM CDT URINALYSIS AND REFLEX TO MICROSCOPIC AND CULTURE Routine 04/18/2024 11:37 AM CDT Primary hypertension Mixed hyperlipidemia Memory difficulties Bilateral hip pain CBC WITH AUTO DIFFERENTIAL Routine 04/18/2024 11:37 AM CDT Primary hypertension Mixed hyperlipidemia Memory difficulties Bilateral hip pain TSH Routine 04/18/2024 11:37 AM CDT Primary hypertension Mixed hyperlipidemia Memory difficulties Bilateral hip pain COMPREHENSIVE METABOLIC PANEL Routine 04/18/2024 11:37 AM CDT Primary hypertension Mixed hyperlipidemia Memory difficulties Bilateral hip pain documented in this encounter Results * XR Hip Right 2+ Vw (04/18/2024 [...] it. Electronically signed by: Van Spaulding M.D. us Bao Pierre MD IMG XR PROCEDURES Final Resul t * XR Hip Left 2+ Vw (04/18/2024 [...] it. Electronically signed by: Van Spaulding M.D. us Bao Pierre MD IMG XR PROCEDURES Final Resul t * Microscopic Examination (04/18/2024 11:37 AM CDT) Pathologist [facility] WBC, ur None seen 0 - 5 /hpf [facility] - 01 RBC, ur None seen 0 - 2 /hpf [facility] - 01 Epithelial cells, non-renal, ur 0-10 0 - 10 /hpf [facility] - 01 Casts None seen None seen /lpf [facility] - 01 Bacteria, ur None seen None seen/Few [facility] - 01 04/18/2024 11:3 7 AM CDT 04/18/2024 Narrative [facility] - 04/19/2024 10:12 AM CDT Performed at: ??01 - [facility] [address] ??[id number] Oil Painter: Abdulkadir Sebastian PhD, Phone: ??[phone] Bao Pierre MD LAB BLOOD ORDERABLES Final Re sult [facility] - 01 * (ABNORMAL) Urinalysis reflex to microscopic and culture Urine (04/18/2024 11:37 AM CDT) Pathologist [facility] Specific Tropic 1.029 1.005 - 1.030 [facility] - 01 pH, ur 5.5 5.0 - 7.5 [facility] - 01 Color, ur Yellow Yellow [facility] - 01 Appearance, ur Clear Clear [facility] - 01 Leukocyte esterase, ur Negative Negative [facility] - 01 Protein, ur 1+(A) Negative/Tra ce [facility] - 01 Glucose, ur Negative Negative [facility] - 01 Ketones, ur Negative Negative [facility] - 01 Blood, ur Negative Negative [facility] - 01 Bilirubin, ur Negative Negative [facility] - 01 Urobilinogen, quant, ur 0.2 0.2 - 1.0 mg/dL [facility] - 01 Nitrites, ur Negative Negative [facility] - 01 Urinalysis, microscopic exam See below: [facility] - 01 Comment:Microscopic was jon cated and was performed. Urinalysis Comment [facility] - 01 Comment:This specimen will n ot reflex to a Urine Culture. Urine 04/18/2024 11:3 7 AM CDT 04/18/2024 Narrative [facility] - 04/19/2024 10:12 AM CDT Performed at: ??[address] [facility] ??[id number] Oil Painter: Abdulkadir Sebastian PhD, Phone: ??[phone] Bao Pierre MD LAB MICROBIOLOGY - GENERAL OR DERABLES Final Result Performing Organization Address [facility] Co de Phone Number [facility] - * TSH (04/18/2024 11:37 AM CDT) Pathologist [facility] TSH 2.690 0.450 - 4.500 uIU/mL [facility] - 01 Blood 04/18/2024 11:3 7 AM CDT 04/18/2024 Narrative [facility] - 04/19/2024 10:12 AM CDT Performed at: ??01 - [facility] ??[id number] Oil Painter: Abdulkadir Sebastian PhD, Phone: ??[phone] Bao Pierre MD LAB BLOOD ORDERABLES Final Re sult Performing Organization Address [facility] Co de Phone Number [facility] - * (ABNORMAL) Comprehensive metabolic panel (04/18/2024 11:37 AM CDT) Glucose 113(H) 70 - 99 mg/dL [facility] - 01 BUN 31(H) 8 - 27 mg/dL [facility] - 01 Creatinine, Serum 1.29(H) 0.76 - 1.27 mg/dL [facility] - 01 eGFR 54(L) >59 mL/min/1.7 3 [facility] - 01 BUN/creat ratio 24 10 - 24 [facility] - 01 Sodium 139 134 - 144 mmol/L [facility] - 01 Potassium, sr 4.5 3.5 - 5.2 mmol/L [facility] - 01 Chloride 102 96 - 106 mmol/L [facility] - 01 CO2 23 20 - 29 mmol/L [facility] - 01 Calcium 8.9 8.6 - 10.2 mg/dL [facility] - 01 Protein, sr 6.1 6.0 - 8.5 g/dL [facility] - 01 Albumin 4.0 3.7 - 4.7 g/dL [facility] - 01 Globulin, Total 2.1 1.5 - 4.5 g/dL [facility] - 01 Bilirubin, Total 0.4 0.0 - 1.2 mg/dL [facility] - 01 Alk phos 69 44 - 121 IU/L [facility] - 01 AST 42(H) 0 - 40 IU/L [facility] - 01 ALT 33 0 - 44 IU/L [facility] - 01 Blood 04/18/2024 11:3 7 AM CDT 04/18/2024 Narrative [facility] - 04/19/2024 10:12 AM CDT Performed at: ?? - [facility] [address] ??[id number] Oil Painter: Abdulkadir Sebastian PhD, Phone: ??[phone] us Bao Pierre MD LAB BLOOD ORDERABLES Final Re sult [facility] - 01 * (ABNORMAL) CBC with auto differential (04/18/2024 11:37 AM CDT) WBC 3.1(L) 3.4 - 10.8 x10E3/uL [facility] - 01 RBC 4.16 4.14 - 5.80 x10E6/uL [facility] - 01 Hgb 13.1 13.0 - 17.7 g/dL [facility] - 01 Hct 38.7 37.5 - 51.0 % [facility] - 01 MCV 93 79 - 97 fL [facility] - 01 MCH 31.5 26.6 - 33.0 pg [facility] - 01 MCHC 33.9 31.5 - 35.7 g/dL [facility] - 01 Rdw 12.6 11.6 - 15.4 % [facility] - 01 Platelets 145(L) 150 - 450 x10E3/uL [facility] - 01 Neutrophils pct 66 Not Estab. % [facility] - 01 Lymphs pct 22 Not Estab. % [facility] - 01 Monocytes pct 10 Not Estab. % [facility] - 01 Eosinophils pct 1 Not Estab. % [facility] - 01 Basophil pct 1 Not Estab. % [facility] - 01 Neutrophil abs 2.0 1.4 - 7.0 x10E3/uL [facility] - 01 Lymphs (Absolute) 0.7 0.7 - 3.1 x10E3/uL [facility] - 01 Monocyte abs 0.3 0.1 - 0.9 x10E3/uL [facility] - 01 Eosinophils, abs 0.0 0.0 - 0.4 x10E3/uL [facility] - 01 Basophils, abs 0.0 0.0 - 0.2 x10E3/uL [facility] - 01 Immature Granulocytes 0 Not Estab. % [facility] - 01 Immature Grans (Abs) 0.0 0.0 - 0.1 x10E3/uL [facility] - 01 Blood 04/18/2024 11:3 7 AM CDT 04/18/2024 Narrative [facility] - 04/19/2024 10:12 AM CDT Performed at: ??01 - [facility] [address] ??[id number] Oil Painter: Abdulkadir Sebastian PhD, Phone: ??[phone] Bao Pierre MD LAB BLOOD ORDERABLES Final Re sult [facility] - documented in this encounter Visit Diagnoses Diagnosis Primary hypertension- Primary Unspecified essential hypertension Mixed hyperlipidemia Memory difficulties Memory loss Bilateral hip pain Pain in joint, pelvic region and thigh Primary hypertension Unspecified essential hypertension Mixed hyperlipidemia Memory difficulties Memory loss Bilateral hip pain Pain in joint, pelvic region and thigh documented in this encounter Discontinued Medications Medication Sig Discontinue Reason Start Date End Da te rosuvastatin (CRESTOR) 40 mg tablet Take 1 tablet (40 mg total) by mouth daily Therapy completed 10/22/2020 04/18/2024 donepeziL (ARICEPT) 5 mg tablet Take 1 tablet (5 mg total) by mouth daily Dose adjustment 08/22/2023 04/18/2024 documented as of this encounter Care Teams Global Position System Technician Relationship Specialty Start Date End Date Bao Pierre MD [address] [address] PCP - General 12/22/16 documented as of this encounter
--- OUTSIDE RECORDS SUMMARY | 2024-10-01 08:41 | XMS_ITS | Encounter Summary ---
Author Organization [facility] Address [address] [place] [address] Care Team Providers Care Automotive Drivability Technician Name Role Phone Bao Pierre MD Primary Care Provider [phone] Reason for Visit * Reason Comments Vomiting Sore Throat Abdominal Pain Encounter Details Date Type Department Care Team (Late st Contact Info) Description 02/07/2024 10:15 AM CDT Office Visit [facility] [address] [facility] [address] [facility] [place] [address] Lynette Reynolds, KRISS [address] [facility] [address] [place], [place] [id number] Acute pharyngitis, unspecified etiology (Primary Dx); Nausea and vomiting, unspecified vomiting type; Primary hypertension; Memory difficulties Social History Tobacco [...] on file 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 Gender Identity Not on file Sexual Orientation Straight 10/15/2019 10 :34 PM 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 TESTER documented as of this encounter Last Filed Vital Signs Vital Sign Reading Time Taken Comments Blood Pressure 112/54 02/07/2024 10:15 AM CDT Pulse 76 02/07/2024 10:15 AM CDT Temperature 36.8 ??C (98.2 ??F) 02/07/2024 10:15 AM C DT Respiratory Rate - - Oxygen Saturation 97% 02/07/2024 10:15 AM CDT Inhaled Oxygen Concentration - - Weight 82.1 kg (181 lb) 02/07/2024 10:15 AM CDT Height 170.2 cm (5' 7 ) 02/07/2024 10:15 AM CDT Body Mass Index 28.35 02/07/2024 10:15 AM CDT documented in this encounter Progress Notes * Lynette Reynolds, KRISS - 02/07/2024 10:15 AM CDT Office Visit Frandy Alvares is a 88 y.o. male here for Vomiting, Sore Throat, and Abdominal Pain HPI Patient is here with Shayy. Patient reports he feels well today. Yesterday, he had one episode of vomiting and some abdominal pain. He also complained of a sore throat yesterday. This has all resolved. Shayy reports she had strep throat last month. Denies abdominal pain, n/v, diarrhea or constipation. HTN Patient is not currently taking BP medication. No CP, SOB, Palpitations, or Dizziness. HLD He is taking Rosuvastatin 40 mg once daily. Lipid panel 04/10/2023 Memory issues On Donepezil 5 mg once daily. He is taking Lexapro 5 mg once [...] total) by mouth daily, Disp: , Rfl: donepeziL (ARICEPT) 5 mg tablet, Take 1 tablet (5 mg total) by mouth daily, Disp: 90 tablet, Rfl: 1 escitalopram (LEXAPRO) 5 mg tablet, Take 1 tablet (5 mg total) by mouth with evening meal, Disp: 90tablet, Rfl: 0 finasteride (PROSCAR) 5 mg tablet, Take 1 tablet (5 mg total) by mouth daily, Disp: , Rfl: fluticasone propionate (FLONASE) 50 mcg/actuation nasal spray, Administer 2 sprays into each nostril daily, Disp: 1 each, Rfl: 1 glucosamine-chondroitin 500-400 mg tablet, Take 1 tablet by mouth daily, Disp: , Rfl: hydrOXYzine (ATARAX) 10 mg tablet, TAKE 1 TABLET(10 MG) BY MOUTH EVERY 8 HOURS NEEDED FOR ITCHING, Disp: 60 tablet, Rfl: 1 triamcinolone (KENALOG) 0.1 % cream, Apply topically 2 (two) times a day, Disp: 30 g, Rfl: 1 rosuvastatin (CRESTOR) 40 mg tablet, Take 1 tablet (40 mg total) by mouth daily, Disp: 90 tablet, Rfl: 3 Allergies Allergies Allergen Reactions Epinephrine Syncope and [...] ~2013, 2014 HIP SURGERY Left 05/28/2018 L.CHRISTIANO ARNETT [facility] SURGERY multiple POSTERIOR LAMINECTOMY / DECOMPRESSION LUMBAR [...] Exam Constitutional: Appearance: Normal appearance. He is well-developed and normal weight. He is not ill-appearing. HENT: Head: Normocephalic and atraumatic. Right Ear: Tympanic membrane, ear canal and external ear normal. Left Ear: Tympanic membrane, ear canal and external ear normal. Nose: Nose normal. Mouth/Throat: Mouth: Mucous membranes are moist. Pharynx: Oropharynx is clear. No oropharyngeal exudate or posterior oropharyngeal erythema. Eyes: Pupils: Pupils are equal, round, and [...] content normal. Judgment: Judgment normal. Vitals BP 112/54 (BP Location: Left arm, Patient Position: Sitting) Pulse 76 Temp 36.8 ??C (98.2 ??F) Ht 170.2 cm (5' 7 ) Wt 82.1 kg (181 lb) SpO2 97% BMI 28.35 kg/m?? Wt Readings from Last 3 Encounters: 02/07/24 82.1 kg (181 lb) 01/19/24 81.6 kg (180 lb) 08/22/23 80.3 kg (177 lb) Body mass index is 28.35 kg/m??. Assessment and Plan Diagnoses and all orders for this visit: Acute pharyngitis, unspecified etiology (Primary) Comments: Resolved. Nausea and vomiting, unspecified vomiting type Comments: Had an episode yesterday. This has resolved. Return to office if symptoms return. Primary hypertension Comments: BP at target. He is not taking Bp medication Memory difficulties Comments: Continue Donepezil 5 mg once daily. Recommendations and Follow up Return in about 3 months (around 05/09/2024) for Recheck, Dr Charlee Reynolds NP documented in this encounter Plan of Treatment Not on file documented as of this encounter Goals Goal Patient Goal Type Associated Problems Recent Progress Patient-Stated? Author CCM Chronic Pain Care Plan Chronic Care Management Worsening( 8:02 AM SULPHATE TESTER) Chika Tracy, RN Note: Problem: Chronic Pain Goals: 1. Minimize further functional decline 2. Maximize quality of life 3. Control pain Strategies: - Activity/exercise program recommendation - Conservative stepwise pain medicine strategy with multi-disciplinary approach - Recommend healthy lifestyle strategies and compensatory methods as needed documented as of this encounter Visit Diagnoses Diagnosis Acute pharyngitis, unspecified etiology- Primary Nausea and vomiting, unspecified vomiting type Primary hypertension Unspecified essential hypertension Memory difficulties Memory loss documented in this encounter Care Teams Automotive Drivability Technician Relationship Specialty Start Date End Date Bao Pierre MD [address] [address] PCP - General 12/22/16 documented as of this encounter
--- OUTSIDE RECORDS SUMMARY | 2024-10-01 08:42 | XMS_ITS | Encounter Summary ---
Author Organization [facility] Address [address] [place] [address] Phone Care Team Providers Care Store Team Leader Name Role Phone Bao Pierre MD Primary Care Provider [phone] Reason for Referral * Diagnostic Imaging (Routine) - Closed Specialty Diagnoses / Procedures Referred By Contac t Referred To Contact Diagnoses Right hip pain Procedures XR Hip Right 4 or More Views Jamie Keys MD [address] [place] [address] Phone: tel: fax: [facility] Radiology [address] [place] [address] [address] [place] [address] Phone: tel: Referral ID Status Reason Start Date Expiration Date Visits Re quested Visits Authorized [id number] Closed 02/28/2023 03/29/2024 1 1 Reason for Visit * Reason Comments Pain Encounter Details Date Type Department Care Team (Late st Contact Info) Description 02/28/2023 10:00 AM CDT Office Visit [facility] Orthopaedic Surgery [facility] Medical Office Building [address] [place] [address] Jamie Keys MD [address] [place] [address] Right hip pain (Primary Dx) Social History Tobacco Use Types [...] on file 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 ESTABLISHED PATIENT VISIT CHIEF COMPLAINT: Painful left total hip arthroplasty Right hip pain HISTORY OF PRESENT ILLNESS: Frandy Alvares is a 87 y.o. year old male with right hip pain. He had a left CHRISTIANO performed in [address] Liang. We saw him previously for his left hip. His son made an appointment for his right hip because he had pain that required him to use a cane. Pain went away. He comes in today not using any gait aids. The patient says he has no pain. He is not taking anything for pain PAST MEDICAL HISTORY: has a past medical history of Arthritis, Asthma, Coronary artery disease, Eye disease, HLD (hyperlipidemia), Hypercholesteremia, Hypertension, Low back pain, Mid back pain, Osteoarthritis, Personal history of other diseases of the circulatory system, Personal history of other diseases of the respiratory system, Spinal stenosis, Sprain of rotator cuff capsule (07/28/2010), ST elevation (STEMI) myocardial infarction involving other coronary artery of inferior wall (HCC) (09/13/2013), Syncope, andV-tach. He has no past medical history of Delayed emergence from general anesthesia, Hard to intubate, Heart murmur, Malignant hyperthermia, PONV (postoperative nausea and vomiting), or Pseudocholinesterase deficiency. PAST SURGICAL HISTORY: has a past surgical history that includes Shoulder surgery (2011); pr removal gallbladder (2017); Back surgery; Mohs surgery; Posterior laminectomy / decompression lumbar spine (2015); Cardiac catheterization (2012); Cataract extraction, bilateral (~2013, 2014); Hip surgery (Left, 05/28/2018); Total hip arthroplasty; and Rotator cuff repair. MEDICATIONS: Current Outpatient Medications on File Prior to Visit Medication Sig Dispense Refill alfuzosin ER (UROXATRAL) 10 mg 24 hr tablet Take 10 mg by mouth daily. ascorbic acid-vitamin E-biotin 7.5-7.5-1,250 mg-unit-mcg tablet,chewable Take by mouth 2 (two) times a day aspirin 81 mg enteric coated tablet Take 81 mg by mouth daily azelastine (ASTELIN) 137 mcg (0.1 %) nasal spray Administer 1 spray into each nostril 2 (two) timesa day Use in each nostril as directed 30 mL 1 clopidogreL (PLAVIX) 75 mg tablet Take 75 mg by mouth daily finasteride (PROSCAR) 5 mg tablet Take 5 mg by mouth daily. fluticasone propionate (FLONASE) 50 mcg/actuation nasal spray Administer 2 sprays into each nostrildaily 3 each 0 glucosamine sulfate 500 mg capsule GLUCOSAMINE CAPSULE glucosamine-chondroitin 500-400 mg tablet Take 1 tablet by mouth daily inulin 2 gram tablet,chewable Take 1 tablet by mouth 2 (two) times a day UNABLE TO FIND prevegen daily rosuvastatin (CRESTOR) 40 mg tablet Take 1 tablet (40 mg total) by mouth daily 90 tablet 3 No current facility-administered medications on file prior to visit. ALLERGIES: Allergies Allergen Reactions Epinephrine Syncope and Dizziness . SOCIAL HISTORY: Social History Social History Tobacco Use Smoking status: Former Types: Pipe Start date: 1964 Quit date: 10/02/2013 Years since quittin.8 Smokeless tobacco: Never Tobacco comments: 5-6 times a day Substance and Sexual Activity Drug use: Never Comment: denies CBD Sexual activity: Defer Alcohol Use: Not At Risk Frequency of Alcohol Consumption: Never Average Number of Drinks: Not on file Frequency of Binge Drinking: Not on file FAMILY HISTORY: family history includes Arthritis in his mother and sister; Cancer in his sister; Heart disease in his brother and mother; Hypertension in his mother; Scoliosis in his son. REVIEW OF SYSTEMS: Constitutional: Negative for chills, activity change and appetite change. HENT: Negative. Eyes: Negative. Respiratory: Negative. Cardiovascular: Negative. Gastrointestinal: Negative. Genitourinary: Negative. Musculoskeletal: per HPI Skin: Negative. Neurological: Negative. Psychiatric/Behavioral: Negative. PHYSICAL EXAM: Vitals: Height: Weight: BMI: There is no height or weight on file to calculate BMI. General: Awake, alert, oriented to person, place, and time. Affect is normal. Hearing is normal to the spoken word. Breathing is unlabored. Left hip Patient walks with an antalgic gait. Examination of the hip demonstrates skin is intact with the prior incision well healed. Patient has a negative logroll test and Stinchfield test. The patient has flexion up to 80 degrees. At 80 degrees, patient has 20 IR and 30 ER. The patient has no pain with gentle passive range of motion of the hip. Patient is tender over the greater trochanter, but not tender over the posterior buttock, SI joint, or low back. He has a positive Jesus test. There is not pain with resisted hip flexion. Right hip Patient walks with an antalgic gait. Examination of the hip demonstrates skin is intact with the prior incision well healed. Patient has a negative logroll test and Stinchfield test. The patient has flexion up to 90 degrees. At 90 degrees, patient has 20 IR and 30 ER. The patient has no pain with gentle passive range of motion of the hip. Patient is not tender over the greater trochanter, the posterior buttock, SI joint, or low back. He has a negative Jesus test. There is not pain with resisted hip flexion. Extremities: Vascular: The dorsalis pedis pulse is palpable bilaterally. There is good perfusion of both feet with good capillary refill. Neurologic: The distal motor and sensory exam is grossly normal without appreciable deficit bilaterally. Intact extensor hallucis longus, flexor hallucis longus, tibialis anterior, and gastrocnemius soleus complex. RADIOGRAPHS: Three views of the right hip taken today and independently viewed by me demonstrate his joint is well maintained. He is very mild joint space narrowing. His left hip appears well placed well aligned with no signs of radiographic loosening or failure. August 2022 AP pelvis and 3 radiographic views of the left hip independently interpreted by me demonstrate a well-fixed total hip arthroplasty. The implants are well- positioned and well-aligned with no radiolucent lines present or evidence of implant failure. He has severe low back arthritis with a degenerative scoliosis. LABS: August 2022 ESR: 2 mm/hr CRP: <1 mg/L IMPRESSION: 87 y.o. year old male with a painful left total hip arthroplasty secondary to low back arthritis, troch bursitis and ITB tendonitis and mild right hip OA PLAN: I reassured the patient and his son that he looks good today. Given he is having no pain I recommend continuing to closely observe this over time. If he develops any symptoms he will contact our office back. They will follow-up as needed. Jamie Keys Eap Specialist Adult Hip and Knee Reconstruction Department of Orthopedic Surgery [facility] in [place] documented in this encounter Plan of Treatment Not on file documented as of this encounter Goals Goal Patient Goal Type Associated Problems Recent Progress Patient-Stated? 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 Minimize further functional decline 2. Maximize quality of life 3. Control pain Strategies: - Activity/exercise program recommendation - Conservative stepwise pain medicine strategy with multi-disciplinary approach - Recommend healthy lifestyle strategies and compensatory methods as needed documented as of this encounter Results * XR Hip Right 4 or More Views (02/28/2023 10:33 AM CDT) Anatomical Region Laterality Modality Lower Extremities, Hip, Pelvis Right C omputed Radiography 02/28/2023 11:3 4 AM CDT Impressions 02/28/2023 1:25 PM CDT 1. Mild right hip osteoarthritis. ?? Dictated by: Tacho Perdomo MD The radiology attending physician has personally reviewed this study, and had reviewed and/or edited this written report and agrees with it. Electronically signed by: Issa Johnston M.D. Narrative 02/28/2023 1:25 PM CDT EXAMINATION: XR HIP RIGHT 4 OR MORE VIEWS HISTORY: ??Right hip pain. FINDINGS: 4 radiographs of the right hip and pelvis are submitted for interpretation and compared to radiographs 06/24/2019. Left total hip arthroplasties in unchanged near anatomic position. 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 ??No acute fracture. Partially imaged lumbar posterior decompression. Procedure Note Issa Johnston MD - 02/28/2023 EXAMINATION: XR HIP RIGHT 4 OR MORE VIEWS HISTORY: Right hip pain. FINDINGS: 4 radiographs of the right hip and pelvis are submitted for interpretation and compared to radiographs 06/24/2019. Left total hip arthroplasties in unchanged near anatomic position. 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 No acute fracture. Partially imaged lumbar posterior decompression. IMPRESSION: 1. Mild right hip osteoarthritis. Dictated by: Tacho Perdomo MD The radiology attending physician has personally reviewed this study, and had reviewed and/or edited this written report and agrees with it. Electronically signed by: Issa Johnston M.D. Jamie Keys MD IMG XR PROCEDURES Laura l Result documented in this encounter Visit Diagnoses Diagnosis Right hip pain- Primary Pain in joint, pelvic region and thigh Right hip pain Pain in joint, pelvic region and thigh documented in this encounter Care Teams Store Team Leader Relationship Specialty Start Date End Date Bao Pierre MD [address] [facility] [address] [place] [address] PCP - General 12/22/16 documented as of this encounter
--- OUTSIDE RECORDS SUMMARY | 2024-10-01 08:42 | XMS_ITS | Encounter Summary ---
Author Organization [facility] Address [address] [place] [address] Phone Care Team Providers Care Search Marketing Specialist Name Role Phone Bao Pierre MD Primary Care Provider [phone] Reason for Referral * Diagnostic Imaging (Routine) - Closed Specialty Diagnoses / Procedures Referred By Contac t Referred To Contact Diagnoses History of left hip replacement Procedures XR Hip Left 4 or More Views Jamie Keys MD [address] [place] [address] Phone: tel: fax: [facility] Radiology [facility] [address] [place] [address] Phone: tel: Referral ID Status Reason Start Date Expiration Date Visits Re quested Visits Authorized [id number] Closed 08/04/2022 09/03/2023 1 1 Reason for Visit * Reason Comments Pain Encounter Details Date Type Department Care Team (Late st Contact Info) Description 08/11/2022 11:00 AM SENIOR GRANTS OFFICER Office Visit [facility] Orthopaedic Surgery [address] [facility] Office Building [address] [place] [address] Jamie Keys MD [address] [place] [address] History of left hip replacement (Primary Dx) Social History Tobacco Use Types [...] on file 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 year old male with left hip pain. He had a left CHRISTIANO performed in [address] Liang. Unfortunately the patient has significant difficulty with memory loss and actually did not even remember he had a hip replacement. He comes in today with a caregiver. She says that at times he complains of pain along the lateral aspect of his hip as well as low back. He as well as sheboth not he has any groin pain. He denies any history of infection, wound complications, numbness, tingling, fevers, chills. He denies any recent illnesses or recent dental work. He says he gets around very well but they just want to make sure that nothing is wrong with his implants. He really enjoys walking and would like to continue with this. PAST MEDICAL HISTORY: has a past medical [...] and Dizziness . SOCIAL HISTORY: Social History Tobacco Use Smoking status: Former [...] tibialis anterior, and gastrocnemius soleus complex. RADIOGRAPHS: AP pelvis and 3 radiographic views of the left hip independently interpreted by me demonstrate a well-fixed total hip arthroplasty. The implants are well- positioned and well-aligned with no radiolucent lines present or evidence of implant failure. He has severe low back arthritis with a degenerative scoliosis. LABS: ESR: 2 mm/hr CRP: <1 mg/L IMPRESSION: 87 y.o. year old male with a painful left total hip arthroplasty secondary to low back arthritis, troch bursitis and ITB tendonitis PLAN: We had a lengthy discussion with the patient regarding the condition and treatment options. On radiographs, there are no signs of implant loosening. Clinically, the patient's hip is stable and the patient has not had any dislocations. Our suspicion for infection is low given the patient's clinical h istory as well as the normal ESR and CRP. I believe that most the pain he is having is coming from his back as well as his ITB band and troch bursitis. I gave him a home exercise program to focus on today. I also recommended topical Voltaren gel 4 times a day. I am optimistic this will improve overtime. He will follow up as needed. Jamie Keys Field Application Engineer Adult Hip and Knee Reconstruction Department of Orthopedic Surgery [facility] in [place] OR GRANTS OFFICER documented in this encounter Plan of Treatment Not on file documented as of this encounter Goals Goal Patient Goal Type Associated Problems Recent Progress Patient-Stated? Author CCM Chronic Pain Care Plan Chronic Care Management Worsening( 8:02 AM SENIOR GRANTS OFFICER) No Chika Watters, RN Note: Problem: Chronic Pain Goals: 1. Minimize further functional decline 2. Maximize quality of life 3. Control pain Strategies: - Activity/exercise program recommendation - Conservative stepwise pain medicine strategy with multi-disciplinary approach - Recommend healthy lifestyle strategies and compensatory methods as needed documented as of this encounter Results * XR Hip Left 4 or More Views (08/11/2022 11:54 AM SENIOR GRANTS OFFICER) Anatomical Region Laterality Modality Lower Extremities, Hip, Pelvis Left C omputed Radiography 08/11/2022 11:5 7 AM SENIOR GRANTS OFFICER Impressions 08/11/2022 11:57 AM SENIOR GRANTS OFFICER 1. ??Unchanged left total hip arthroplasty in near-anatomic position Electronically signed by: Jerald Beaulieu MD, PHD Narrative 08/11/2022 11:57 AM SENIOR GRANTS OFFICER EXAMINATION: Left hip 4+ views HISTORY: ??Left total hip arthroplasty, follow-up FINDINGS: 13 radiographs including standing, digital frontal and lateral radiographs of both lower extremities are compared to prior radiographs from 06/24/2019. The left total hip arthroplasty appears unchanged and in near-anatomic position without periprosthetic fracture, osteolysis, or component migration. Moderate right hip osteophyte is again noted. There is mild bilateral varus mechanical axis with no significant leg length discrepancy. 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 There is no acute fracture. Procedure Note Jerald Beaulieu MD PhD - 08/11/2022 EXAMINATION: Left hip 4+ views HISTORY: Left total hip arthroplasty, follow-up FINDINGS: 13 radiographs including standing, digital frontal and lateral radiographs of both lower extremities are compared to prior radiographs from 06/24/2019. The left total hip arthroplasty appears unchanged and in near-anatomic position without periprosthetic fracture, osteolysis, or component migration. Moderate right hip osteophyte is again noted. There is mild bilateral varus mechanical axis with no significant leg length discrepancy. 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 There is no acute fracture. IMPRESSION: 1. Unchanged left total hip arthroplasty in near-anatomic position Electronically signed by: Jerald Beaulieu MD, PHD Jamie Keys MD IMG XR PROCEDURES Laura l Result documented in this encounter Visit Diagnoses Diagnosis History of left hip replacement- Primary History of left hip replacement documented in this encounter Care Teams Search Marketing Specialist Relationship Specialty Start Date End Date Bao Pierre MD [address] [facility] [address] [place] [address] PCP - General 12/22/16 documented as of this encounter
--- OUTSIDE RECORDS SUMMARY | 2024-10-01 08:42 | XMS_ITS | Encounter Summary ---
Author Organization [facility] Address [address] [place] [address] Care Team Providers Care Stock Checker Name Role Phone Bao Pierre MD Primary Care Provider Reason for Visit * Reason Comments Suture / Staple Removal head Encounter Details Date Type Department Care Team (Late st Contact Info) Description 10/29/2021 10:45 AM DIGITAL MEDIA COORDINATOR Office Visit [facility] [address] [facility] [address] [place] [id number] Ariadne Vail, KRISS [address] [facility] [address] [place], [place] [phone] Laceration of scalp without foreign body, subsequent encounter (Primary Dx) Social History Tobacco Use Types [...] on file Legal Sex Male 9:03 PM DIGITAL MEDIA COORDINATOR Gender Identity Not on file Sexual Orientation Straight 10/15/2019 10 :34 PM DIGITAL MEDIA COORDINATOR documented as of this encounter Last Filed Vital Signs Vital Sign Reading Time Taken Comments Blood Pressure 128/68 10/29/2021 10:39 AM DIGITAL MEDIA COORDINATOR Pulse 73 10/29/2021 10:39 AM DIGITAL MEDIA COORDINATOR Temperature - - Respiratory Rate - - Oxygen Saturation 99% 10/29/2021 10:39 AM DIGITAL MEDIA COORDINATOR Inhaled Oxygen Concentration - - Weight 80.3 kg (177 lb) 10/29/2021 10:39 AM DIGITAL MEDIA COORDINATOR Height 175.3 cm (5' 9 ) 10/29/2021 10:39 AM DIGITAL MEDIA COORDINATOR Body Mass Index 26.14 10/29/2021 10:39 AM DIGITAL MEDIA COORDINATOR documented in this encounter Progress Notes * Ariadne Vail, KRISS - 10/29/2021 10:45 AM CST Images from the original note were not included. Office Visit Frandy Alvares is a 86 y.o. male here for Suture / Staple Removal (head) HPI 86 yo male with HTN, HLD, ASCAD and back pain related to spinal stenosis followed by PM. Presents today after fall resulting in R head laceration. 3 santiago. It was felt he fell due to orthostatic from not eating/drinking due to colo prep. He did have LOC. Was evaluated in ED. Current Medications Current Outpatient Medications: ??? ascorbic acid-vitamin E-biotin 7.5-7.5-1,250 mg-unit-mcg tablet,chewable, Take by mouth 2 (two)times a day, Disp: , Rfl: ??? aspirin 81 mg enteric coated tablet, Take 81 mg by mouth daily, Disp: , Rfl: ??? finasteride (PROSCAR) 5 mg tablet, Take 5 mg by mouth daily. , Disp: , Rfl: ??? glucosamine-chondroitin 500-400 mg tablet, Take 1 tablet by mouth daily, Disp: , Rfl: ??? inulin (FIBER GUMMIES) 2 gram tablet,chewable, Take 1 tablet by mouth 2 (two) times a day., Disp: , Rfl: ??? lisinopril-hydroCHLOROthiazide (ZESTORETIC) 10-12.5 mg per tablet, LISINOPRIL-HYDROCHLOROTHIAZIDE 10-12.5 MG ORAL TABLET, Disp: , Rfl: ??? rosuvastatin (CRESTOR) 40 mg tablet, Take 1 tablet (40 mg total) by mouth daily, Disp: 90 tablet, Rfl: 3 ??? UNABLE TO FIND, prevegen daily, Disp: , Rfl: ??? alfuzosin ER (UROXATRAL) 10 mg 24 hr tablet, Take 10 mg by mouth daily. , Disp: , Rfl: Allergies Allergies Allergen Reactions ??? Epinephrine Syncope and Dizziness Past Medical and Surgical History: Patient Active Problem List Diagnosis ??? Primary osteoarthritis of left hip ??? Risk factors for obstructive sleep apnea ??? HLD (hyperlipidemia) ??? Class 1 obesity in adult ??? Other seborrheic keratosis ??? Arthritis ??? Degeneration of lumbar or lumbosacral intervertebral disc ??? Disorder of rotator cuff ??? Herniated lumbar intervertebral disc ??? History of SCC (squamous cell carcinoma) of skin ??? Hypertension ??? Neoplasm of uncertain behavior of skin ??? Spondylosis of lumbar region without myelopathy or radiculopathy ??? Spinal stenosis of lumbar region with neurogenic claudication ??? 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 Sciatica of left side ??? Solar lentiginosis ??? Sprain of rotator cuff capsule ??? Primary osteoarthritis of left hip ??? Lumbago ??? Chronic middle ear effusion, left ??? Premature atrial contractions ??? ST elevation (STEMI) myocardial infarction involving other coronary artery of inferior wall (HCC) ??? Spinal stenosis ??? Memory difficulties ??? Laceration of scalp without foreign body Past Medical History: Diagnosis Date ??? Arthritis ??? Asthma ??? Coronary artery disease ??? Eye disease ??? HLD (hyperlipidemia) ??? Hypercholesteremia ??? Hypertension ??? Low back pain ??? Mid back pain ??? Osteoarthritis ??? Personal history of other diseases of the circulatory system History of hypertension - (Added by TW Conv) ??? Personal history of other diseases of the respiratory system History of asthma - (Added by TW Conv) ??? Spinal stenosis lumbar ??? Syncope ??? V-tach (CMS/HCC) (HCC) Past Surgical History: Procedure Laterality Date ??? BACK SURGERY ??? CARDIAC CATHETERIZATION 2012 ??? CATARACT EXTRACTION, BILATERAL ~2013, 2014 ??? HIP SURGERY Left 05/28/2018 L[facility] ??? MOHS SURGERY multiple ??? POSTERIOR LAMINECTOMY / DECOMPRESSION LUMBAR SPINE 2015 ??? [place] REMOVAL GALLBLADDER 2017 ??? ROTATOR CUFF REPAIR ??? SHOULDER SURGERY 2012 rotator cuff repair ??? TOTAL HIP ARTHROPLASTY Family History: Family History Problem Relation Age of Onset ??? Hypertension Mother Family history of hypertension - (Added by TW Conv) ??? Heart disease Mother Family history of cardiac disorder - (Added by TW Conv) ??? Arthritis Mother Family history of arthritis - (Added by TW Conv) ??? Heart disease Brother valve disease ??? Arthritis Sister Family history of arthritis - (Added by TW Conv) ??? Cancer Sister Family history of malignant neoplasm - (Added by TW Conv) ??? Scoliosis Son Family history of scoliosis - (Added by TW Conv) ??? Anesthesia problems Neg Hx Social History: Social History Tobacco Use ??? Smoking status: Former Smoker Types: Pipe Start date: 1965 Quit date: 10/02/2013 Years since quittin.0 ??? Smokeless tobacco: Never Used ??? Tobacco comment: 5-6 times a day Vaping Use ??? Vaping Use: Never used Substance Use Topics ??? Alcohol use: No ??? Drug use: Never Comment: denies CBD Social History Social History Narrative Smoking A Pipe : (Added by TW Conv) Current smoker : (Added by TW Conv) No alcohol use : (Added by TW Conv) : (Added by TW Conv) Retired : (Added by TW Conv) Immunization History Administered Date(s) Administered ??? Influenza, Quadrivalent, Split, Preservative Free, Intramuscular 07/01/2019, 07/01/2019 ??? Influenza, Trivalent, High Dose, Split, Preservative Free, Intramuscular 09/06/2012, 08/11/2016, 07/09/2017, 07/09/2017, 07/09/2017, 06/18/2020 ??? Influenza, Trivalent, Intramuscular 07/05/2013, 07/18/2014, 07/18/2014 ??? Influenza, Unspecified 08/11/2016, 07/09/2017, 08/02/2019, 08/02/2019, 06/18/2020 ??? Pneumococcal Conjugate PCV 13 03/04/2015 Assessment/Plan Review [...] dysuria. Musculoskeletal: Negative for gait problem. Skin: Positive for wound. Negative for rash. Neurological: Negative for seizures [...] content normal. Judgment: Judgment normal. Vitals BP 128/68 (BP Location: Left arm, Patient Position: Sitting) Pulse 73 Ht 175.3 cm (5' 9 ) Wt 80.3 kg (177 lb) SpO2 99% BMI 26.14 kg/m?? Wt Readings from Last 3 Encounters: 10/29/21 80.3 kg (177 lb) 09/13/21 80.3 kg (177 lb) 05/31/21 85.7 kg (189 lb) Body mass index is 26.14 kg/m??. Assessment and Plan Diagnoses and all orders for this visit: Laceration of scalp without foreign body, subsequent encounter (Primary) Assessment & Plan: 3 santiago removed No s/s of infectoin Recommendations and Follow up Ariadne Vail NP TAL MEDIA COORDINATOR documented in this encounter Miscellaneous Notes * Assessment & Plan Note - Ariadne Vail NP - 10/29/2021 10:55 AM DIGITAL MEDIA COORDINATOR Associated Problem(s): Laceration of scalp without foreign body (Resolved 03/08/2022) 3 santiago removed No s/s of infectoin TAL MEDIA COORDINATOR documented in this encounter Plan of Treatment Not on file documented as of this encounter Goals Goal Patient Goal Type Associated Problems Recent Progress Patient-Stated? Author CCM Chronic Pain Care Plan Chronic Care Management Worsening( 8:02 AM DIGITAL MEDIA COORDINATOR) No Chika Watters, RN Note: Problem: Chronic Pain Goals: 1. Minimize further functional decline 2. Maximize quality of life 3. Control pain Strategies: - Activity/exercise program recommendation - Conservative stepwise pain medicine strategy with multi-disciplinary approach - Recommend healthy lifestyle strategies and compensatory methods as needed documented as of this encounter Visit Diagnoses Diagnosis Laceration of scalp without foreign body, subsequent encounter- Primary documented in this encounter Care Teams Stock Checker Relationship Specialty Start Date End Date Bao Pierre MD [address] [place] [address] PCP - General 12/22/16 documented as of this encounter
--- OUTSIDE RECORDS SUMMARY | 2024-10-01 08:42 | XMS_ITS | Encounter Summary ---
Author Organization [facility] Address [address] [place] [address] Care Team Providers Care Health Data Analyst Name Role Phone Bao Pierre MD Primary Care Provider [phone] Reason for Visit * Reason Onset Date Comments Post-op Follow-up 09/14/2021 Encounter Details Date Type Department Care Team (Late st Contact Info) Description 09/14/2021 Telephone [facility] [address] [facility] [address] [place], [place] [phone] Eddi Shafer MD [address] [facility] [address] [facility] [phone] [place], [place] [phone] Post-op Follow-up Social History Tobacco Use Types Packs/Day Years [...] on file Legal Sex Male 9:03 PM LINE HAUL DRIVER Gender Identity Not on file Sexual Orientation Straight 10/15/2019 10 :34 PM LINE HAUL DRIVER documented as of this encounter Miscellaneous Notes * Telephone Encounter - Cristina Samuel - 09/28/2021 4:58 PM CST 10.19.2021 HAUL DRIVER * Telephone Encounter - Cristina Samuel - 09/28/2021 11:07 AM CST PT will call back. HAUL DRIVER * Telephone Encounter - Radha Mckenna - 09/28/2021 7:43 AM CST Yes ok to schedule for rfa with swarm 1st avail HAUL DRIVER * Telephone Encounter - Cheri Damian RN - 09/22/2021 8:55 AM CST Sent to LE to see if pt results will be approved for RFA HAUL DRIVER * Telephone Encounter - Alma Hunter RN - 09/14/2021 2:54 PM LINE HAUL DRIVER Date of Procedure: 09/13/21 Procedure: LMBB #2 Level(s): L3-4, L5-S1 Site: []Left [] Right [x] Bilateral [] Midline Pre-Procedure Pain Score: 0/10 with rest, 8/10 with activity Sedation: [x] No Sedation [] Minimal Sedation [] Moderate Sedation IV Site: [x] N/A [] No Redness/Swelling [] Redness/Swelling Post Procedure Follow Up Assessment: Did the injection help you? [x] Yes [] No Do you feel you had more than 80% benefit? [x] Yes [] No [] N/A Current Pain Rating? 0 Numbness/Heaviness [x] No [] Yes Dizziness or lightheadedness [x] No [] Yes Puncture Site: [x] No tenderness/swelling [] Tenderness without drainage [] Advised to apply heating pad for 20 minutes for puncture sitesoreness. Pain Diary 2 Hour Pain Diary every 15 mins 4 Hour Pain Diary every 30 mins 8 Hour pain Diary every 1 hour 1 1 2 2 2 2 2 2 OtherComments/Concerns: Pt son, Frandy, called with pain diary results. HAUL DRIVER HAUL DRIVER * Telephone Encounter - Cady Arredondo RN - 09/14/2021 2:45 PM LINE HAUL DRIVER Date of Procedure: 09/13/2021 Procedure: LMBB#2 Level(s): L3-L4, L5-S1 Site: []Left [] Right [x] Bilateral [] Midline Pre-Procedure Pain Score: 0 with rest, 8 with activity Sedation: [x] No Sedation [] Minimal Sedation [] Moderate Sedation IV Site: [x] N/A [] No Redness/Swelling [] Redness/Swelling Post Procedure Follow Up Assessment: Did the injection help you? [x] Yes [] No Do you feel you had more than 80% benefit? [] Yes [x] No [] N/A Current Pain Rating? 0 Numbness/Heaviness [x] No [] Yes Dizziness or lightheadedness [x] No [] Yes Puncture Site: [x] No tenderness/swelling [] Tenderness without drainage [] Advised to apply heating pad for 20 minutes for puncture sitesoreness. OtherComments/Concerns: Patient was unsure if the procedure helped. Left a message for his son, Frandy, to call back with 8 hour pain diary scores. HAUL DRIVER * Telephone Encounter - Amanda Curiel RN - 09/14/2021 2:20 PM CST Date of Procedure: 09/13/2021 Procedure: LMBB#2 Level(s): L3-L4, L5-S1 Site: []Left [] Right [x] Bilateral [] Midline Pre-Procedure Pain Score: 0 with rest, 8 with activity Sedation: [x] No Sedation [] Minimal Sedation [] Moderate Sedation IV Site: [x] N/A [] No Redness/Swelling [] Redness/Swelling Post Procedure Follow Up Assessment: Did the injection help you? [x] Yes [] No Do you feel you had more than 80% benefit? [] Yes [x] No [] N/A Current Pain Rating? 0 Numbness/Heaviness [x] No [] Yes Dizziness or lightheadedness [x] No [] Yes Puncture Site: [x] No tenderness/swelling [] Tenderness without drainage [] Advised to apply heating pad for 20 minutes for puncture sitesoreness. OtherComments/Concerns: Patient was unsure if the procedure helped. Left a message for his son, Frandy, to call back with 8 hour pain diary scores. HAUL DRIVER documented in this encounter Plan of Treatment Not on file documented as of this encounter Goals Goal Patient Goal Type Associated Problems Recent Progress Patient-Stated? Author CCM Chronic Pain Care Plan Chronic Care Management Worsening( 8:02 AM LINE HAUL DRIVER) No Chika Watters, RN Note: Problem: Chronic Pain Goals: 1. Minimize further functional decline 2. Maximize quality of life 3. Control pain Strategies: - Activity/exercise program recommendation - Conservative stepwise pain medicine strategy with multi-disciplinary approach - Recommend healthy lifestyle strategies and compensatory methods as needed documented as of this encounter Visit Diagnoses Not on filedocumented in this encounter Care Teams Health Data Analyst Relationship Specialty Start Date End Date Bao Pierre MD [address] [address] PCP - General 12/22/16 documented as of this encounter
--- OUTSIDE RECORDS SUMMARY | 2024-10-01 08:42 | XMS_ITS | Encounter Summary ---
Author Organization [facility] Healthcare Address [address] [place] [address] Care Team Providers Care Crm System Administrator Name Role Phone Bao Pierre MD Primary Care Provider [phone] Reason for Visit * Reason Onset Date Comments Pre-Surgical Call 09/09/2021 pre-LMBB #2 Encounter Details Date Type Department Care Team (Late st Contact Info) Description 09/09/2021 Telephone [facility] [place] [facility] [address] [facility] [address] [place], [place] [phone] Eddi Shafer MD [address] [facility] [address] [facility] [phone] [place], [place] [phone] Pre-Surgical Call (pre-LMBB #2) Social History Tobacco Use Types Packs/Day Years Used Date Smoking Tobacco: Former Pipe 1 966 - 10/02/2013 Smokeless Tobacco: Never Comments:5-6 times a day Alcohol Use Standard Drinks/Week Comments No 0 (1 standard drink = 0.6 oz pur e alcohol) AUDIT-C Answer Date Recorded Q1: How often do you have a drink containing alc ohol? Never 05/05/2021 Average Number of Drinks Not on file 021 Frequency of Binge Drinking Not on file 0812/2020 PHQ-2 Answer Date Recorded PHQ-2 Score 0 05/24/2019 Sex and Gender Information Value Date Recorded Sex Assigned at Not on file Legal Sex Male 9:03 PM PROGRAMMING ENGINEER Gender Identity Not on file Sexual Orientation Straight 10/15/2019 10 :34 PM PROGRAMMING ENGINEER documented as of this encounter Miscellaneous Notes * Telephone Encounter - Mia Gaspar RN - 09/09/2021 2:34 PM CST Pt reviewed Pre-procedure instructions for upcoming appointment at Pain Center on 09/13/21. He verbalized understanding. RAMMING ENGINEER documented in this encounter Plan of Treatment Not on file documented as of this encounter Goals Goal Patient Goal Type Associated Problems Recent Progress Patient-Stated? Author CCM Chronic Pain Care Plan Chronic Care Management Worsening( 8:02 AM PROGRAMMING ENGINEER) No Chika Watters RN Note: Problem: Chronic Pain Goals: 1. Minimize further functional decline 2. Maximize quality of life 3. Control pain Strategies: - Activity/exercise program recommendation - Conservative stepwise pain medicine strategy with multi-disciplinary approach - Recommend healthy lifestyle strategies and compensatory methods as needed documented as of this encounter Visit Diagnoses Not on filedocumented in this encounter Care Teams Crm System Administrator Relationship Specialty Start Date End Date Bao Pierre MD [address] [address] PCP - General 12/22/16 documented as of this encounter
--- OUTSIDE RECORDS SUMMARY | 2024-10-01 08:42 | XMS_ITS | Encounter Summary ---
Author Organization [facility] Address [address] [place] [address] Care Team Providers Care Direct Support Staff Member Name Role Phone Bao Pierre MD Primary Care Provider [phone] Reason for Referral * Diagnostic Imaging (Routine) - Closed Specialty Diagnoses / Procedures Referred By Amber flores Referred To Contact Diagnoses Chronic left shoulder pain Procedures XR Shoulder Left 2 or More Views Ariadne Vail NP [address] [facility] [place] [address] Phone: tel: fax: [facility] [address] [place] [address] Referral ID Status Reason Start Date Expiration Date Visits Re quested Visits Authorized [id number] Closed 03/08/2022 04/07/2023 1 1 Reason for Visit * Reason Comments Joint Pain L shoulder/R knee Ear Problem R ear pain Encounter Details Date Type Department Care Team (Late st Contact Info) Description 03/08/2022 11:00 AM CDT Office Visit [facility] [address] [facility] [address] [place] [id number] Ariadne Vail NP [address] [facility] [address] [place] [address] Hyperlipidemia, unspecified hyperlipidemia type (Primary Dx); Chronic left shoulder pain; Dysfunction of both eustachian tubes Social History Tobacco Use Types Packs/Day Years [...] on file Legal Sex Male 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 Gender Identity Not on file Sexual Orientation Straight 10/15/2019 10 :34 PM DOUBLE NEEDLE OPERATOR 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 documented as of this encounter Last Filed Vital Signs Vital Sign Reading Time Taken Comments Blood Pressure 142/76 03/08/2022 10:58 AM CDT Pulse 70 03/08/2022 10:58 AM CDT Temperature - - Respiratory Rate - - Oxygen Saturation 98% 03/08/2022 10:58 AM CDT Inhaled Oxygen Concentration - - Weight 87.5 kg (193 lb) 03/08/2022 10:58 AM CDT Height 177.8 cm (5' 10 ) 03/08/2022 10:58 AM CDT Body Mass Index 27.69 03/08/2022 10:58 AM CDT documented in this encounter Ordered Prescriptions Prescription Sig Dispense Quantity Refills Last Filled Start Date End Date azelastine (ASTELIN) 137 mcg (0.1 %) nasal spray Administer 1 spray into each nostril 2 (two) times a day Use in each nostril as directed 30 mL 1 03/08/2022 3 fluticasone propionate (FLONASE) 50 mcg/actuation nasal spray Administer 2 sprays into each nostril daily 3 each 03/08/2022 4 documented in this encounter Progress Notes * Ariadne Vail NP - 03/08/2022 11:00 AM CDT Office Visit Frandy Alvares is a 86 y.o. male here for Joint Pain (L shoulder/R knee) and Ear Problem (R ear pain) HPI 86 yo male with HTN, HLD, ASCAD and back pain related to spinal stenosis followed by PM. Presents today with c/o several weeks of worsening L shoulder pain. Present for years . Hx of R rotator cuff tear with repair in 2017. No weakness. Is L hand dominant. 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 Current Medications Current Outpatient Medications: ??? alfuzosin ER (UROXATRAL) 10 mg 24 hr tablet, Take 10 mg by mouth daily. , Disp: , Rfl: ??? ascorbic acid-vitamin E-biotin 7.5-7.5-1,250 mg-unit-mcg tablet,chewable, Take by mouth 2 (two)times a day, Disp: , Rfl: ??? aspirin 81 mg enteric coated tablet, Take 81 mg by mouth daily, Disp: , Rfl: ??? clopidogreL (PLAVIX) 75 mg tablet, Take 75 mg by mouth daily, Disp: , Rfl: ??? finasteride (PROSCAR) 5 mg tablet, Take 5 mg by mouth daily. , Disp: , Rfl: ??? glucosamine-chondroitin 500-400 mg tablet, Take 1 tablet by mouth daily, Disp: , Rfl: ??? inulin 2 gram tablet,chewable, Take 1 tablet by mouth 2 (two) times a day., Disp: , Rfl: ??? rosuvastatin (CRESTOR) 40 mg tablet, Take 1 tablet (40 mg total) by mouth daily, Disp: 90 tablet, Rfl: 3 ??? UNABLE TO FIND, prevegen daily, Disp: , Rfl: ??? azelastine (ASTELIN) 137 mcg (0.1 %) nasal spray, Administer 1 spray into each nostril 2 (two) times a day Use in each nostril as directed, Disp: 30 mL, Rfl: 1 ??? fluticasone propionate (FLONASE) 50 mcg/actuation nasal spray, Administer 2 sprays into each nostril daily, Disp: 3 each, Rfl: 0 Allergies Allergies Allergen Reactions ??? Epinephrine Syncope [...] histoplasmosis syndrome (POHS) of right eye ??? Solar lentiginosis ??? Primary osteoarthritis of left hip ??? Lumbago ??? Chronic middle ear effusion, left ??? Premature atrial contractions ??? Spinal stenosis ??? Memory difficulties ??? Chronic left shoulder pain ??? Dysfunction of both eustachian tubes Past Medical History: Diagnosis Date ??? Arthritis [...] TW Conv) ??? Spinal stenosis lumbar ??? Sprain of rotator cuff capsule 07/28/2010 ??? ST elevation (STEMI) myocardial infarction involving other coronary artery of inferior wall (HCC) 09/13/2013 ??? Syncope ??? V-tach (CMS/HCC) (HCC) Past Surgical History: Procedure Laterality Date ??? BACK SURGERY ??? CARDIAC CATHETERIZATION 2012 ??? CATARACT EXTRACTION, BILATERAL ~2013, 2014 ??? HIP SURGERY Left 05/28/2018 L.CHRI[facility]O ??? MOHS SURGERY multiple ??? POSTERIOR LAMINECTOMY / DECOMPRESSION LUMBAR SPINE 2015 ??? TN REMOVAL GALLBLADDER 2017 ??? ROTATOR CUFF REPAIR ??? SHOULDER SURGERY 2012 rotator cuff repair ??? TOTAL HIP ARTHROPLASTY Family History: Family History Problem Relation Age of Onset ??? Hypertension Mother Family history of hypertension - (Added by TW Conv) ??? Heart disease Mother Family history of cardiac disorder - (Added by TW Conv) ??? Arthritis Mother Family history of arthritis - (Added by [employer] Conv) ??? Heart disease Brother valve disease ??? Arthritis Sister Family history of arthritis - (Added by [employer] Conv) ??? Cancer Sister Family history of malignant neoplasm - (Added by [employer] Conv) ??? Scoliosis Son Family history of scoliosis - (Added by [employer] Conv) ??? Anesthesia problems Neg Hx Social History: Social History Tobacco Use ??? Smoking status: Former Smoker Types: Pipe Start date: 1965 Quit date: 10/02/2013 Years since quittin.4 ??? Smokeless tobacco: Never Used ??? Tobacco comment: 5-6 times a day Vaping Use ??? Vaping Use: Never used Substance Use Topics ??? Alcohol use: No ??? Drug use: Never Comment: denies CBD Social History Social History Narrative Smoking A Pipe : (Added by [employer] Conv) Current smoker : (Added by [employer]) No alcohol use : (Added by [employer] Conv) : (Added by [employer]) Retired : (Added by [employer]) Immunization History Administered Date(s) Administered ??? Influenza, [...] and nausea. Genitourinary: Negative for dysuria. Musculoskeletal: Positive for arthralgias. Negative for gait problem. Skin: Negative for rash. Neurological: Negative for seizures and headaches. Psychiatric/Behavioral: Negative for sleep disturbance. Physical Exam Physical Exam Constitutional: Appearance: Normal appearance. He is normal weight. He is not ill-appearing. HENT: Head: Normocephalic. Right Ear: Ear canal and external ear normal. A middle ear effusion is present. Left Ear: Ear canal and external ear normal. A middle ear effusion is present. Nose: Nose normal. Mouth/Throat: Mouth: Mucous membranes [...] guarding. Musculoskeletal: General: Normal range of motion. Left upper arm: Normal. Cervical back: Normal range of motion. Comments: BUE strength 5/5 Lapel Padder equal Skin: General: Skin is warm and dry. [...] content normal. Judgment: Judgment normal. Vitals BP 142/76 (BP Location: Left arm, Patient Position: Sitting) Pulse 70 Ht 177.8 cm (5' 10 ) Wt 87.5 kg (193 lb) SpO2 98% BMI 27.69 kg/m?? Wt Readings from Last 3 Encounters: 03/08/22 87.5 kg (193 lb) 01/13/22 85.8 kg (189 lb 1.9 oz) 10/29/21 80.3 kg (177 lb) Body mass index is 27.69 kg/m??. Assessment and Plan Diagnoses and all orders for this visit: Hyperlipidemia, unspecified hyperlipidemia type (Primary) - POCT glucose - POCT lipid panel Chronic left shoulder pain Assessment & Plan: Scheduled APAP twice daily Xray If not improving would consider PT and/or US Orders: - XR Shoulder Left 2 or More Views; Future Dysfunction of both eustachian tubes Assessment & Plan: Nasal sprays Other orders - fluticasone propionate (FLONASE) 50 mcg/actuation nasal spray; Administer 2 sprays into each nostril daily - azelastine (ASTELIN) 137 mcg (0.1 %) nasal spray; Administer 1 spray into each nostril 2 (two) times a day Use in each nostril as directed Recommendations and Follow up Ariadne Vail NP documented in this encounter Miscellaneous Notes * Assessment & Plan Note - Ariadne Vail NP - 03/08/2022 11:22 AM CDT Associated Problem(s): Dysfunction of both eustachian tubes Nasal sprays * Assessment & Plan Note - Ariadne Vail NP - 03/08/2022 11:21 AM CDT Associated Problem(s): Chronic left shoulder pain Scheduled APAP twice daily Xray If not improving would consider PT and/or US documented in this encounter Plan of Treatment Not on file documented as of this encounter Goals Goal Patient Goal Type Associated Problems Recent Progress Patient-Stated? 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 Minimize further functional decline 2. Maximize quality of life 3. Control pain Strategies: - Activity/exercise program recommendation - Conservative stepwise pain medicine strategy with multi-disciplinary approach - Recommend healthy lifestyle strategies and compensatory methods as needed documented as of this encounter Procedures Procedure Name Priority Date/Time Associated Diagnosis Comments POCT GLUCOSE 56610 Routine 03/08/2022 11 :11 AM CDT Hyperlipidemia, unspecified hyperlipidemia type POCT LIPID PANEL Routine 03/08/2022 11:1 1 AM CDT Hyperlipidemia, unspecified hyperlipidemia type documented in this encounter Results * XR Shoulder Left 2 or More Views (03/08/2022 11:59 AM CDT) Anatomical Region Laterality Modality Upper Extremities, Shoulder Left Comp uted Radiography 03/08/2022 1:16 PM CDT Impressions 03/08/2022 1:16 PM CDT 1. Mild left acromioclavicular joint osteoarthritis. Electronically signed by: Frandy Barclay M.D. Narrative 03/08/2022 1:16 PM CDT EXAM: 1. ??XR SHOULDER LEFT 2 OR MORE VIEWS HISTORY: Left shoulder pain COMPARISON: None FINDINGS: 3 radiographs of left the shoulder submitted for interpretation. No acute fracture. Alignment is normal. Mild acromioclavicular joint osteoarthritis. Glenohumeral joint space is normal. Procedure Note Frandy Barclay MD - 03/08/2022 EXAM: 1. XR SHOULDER LEFT 2 OR MORE VIEWS HISTORY: Left shoulder pain COMPARISON: None FINDINGS: 3 radiographs of left the shoulder submitted for interpretation. No acute fracture. Alignment is normal. Mild acromioclavicular joint osteoarthritis. Glenohumeral joint space is normal. IMPRESSION: 1. Mild left acromioclavicular joint osteoarthritis. Electronically signed by: Frandy Barclay M.D. Ariadne Vail NP IMG XR PROCEDURES Final Result * POCT lipid panel (03/08/2022 11:11 AM CDT) HDL, POC 42 mg/dL Triglycerides, POC 139 mg/dL LDL Cholesterol POC 96 mg/dL Chol/HDL Ratio, POC 3.9 Non-HDL Cholesterol, POC 124 mg/dL Cholesterol Total, POC 166 mg/dL Capillary blood 03/08/2022 1 1:11 AM CDT Ariadne Vail NP POINT OF CARE TEST ORDER RANDY Final Result * POCT glucose (03/08/2022 11:11 AM CDT) Glucose Blood, POC 106 mg/dL Blood specimen (specimen) 03/08/2022 11:11 AM CDT Ariadne Vail UNDERWRITING INTERN POINT OF CARE TEST ORDER RANDY Final Result documented in this encounter Visit Diagnoses Diagnosis Hyperlipidemia, unspecified hyperlipidemia type- Primary Chronic left shoulder pain Pain in joint, shoulder region Dysfunction of both eustachian tubes Chronic left shoulder pain Pain in joint, shoulder region documented in this encounter Discontinued Medications Medication Sig Discontinue Reason Start Date End Da te lisinopril-hydroCHLOROthiazide (ZESTORETIC) 10-12.5 mg per tablet 10/02/1969 03/08/2022 documented as of this encounter Care Teams Direct Support Staff Member Relationship Specialty Start Date End Date Bao Pierre MD [address] [address] PCP - General 12/22/16 documented as of this encounter
--- OUTSIDE RECORDS SUMMARY | 2024-10-01 08:42 | XMS_ITS | Encounter Summary ---
Author Organization [facility] Address [address] [place] [address] Care Team Providers Care Paper Grader Name Role Phone Bao Pierre MD Primary Care Provider [phone] Encounter Details Date Type Department Care Team (Late st Contact Info) Description 03/31/2022 [facility] [address] [facility] [address] [place] [address] Bao Pierre MD [address] [facility] [address] [place] [address] Social History Tobacco Use Types [...] on file 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 Author CCM Chronic Pain Care Plan Chronic Care Management Worsening( 8:02 AM DIRECTOR OF COLLECTIONS) Chika Tracy, RN Note: Problem: Chronic Pain Goals: 1. Minimize further functional decline 2. Maximize quality of life 3. Control pain Strategies: - Activity/exercise program recommendation - Conservative stepwise pain medicine strategy with multi-disciplinary approach - Recommend healthy lifestyle strategies and compensatory methods as needed documented as of this encounter Visit Diagnoses Not on filedocumented in this encounter Care Teams Paper Grader Relationship Specialty Start Date End Date Bao Pierre MD [address] [address] PCP - General 12/22/16 documented as of this encounter
--- OUTSIDE RECORDS SUMMARY | 2024-10-01 08:42 | XMS_ITS | Encounter Summary ---
Author Organization [facility] Address [address] [place] [address] Care Team Providers Care Cement Tile Maker Name Role Phone Bao Pierre MD Primary Care Provider [phone] Reason for Visit * Reason Comments Shoulder Pain Earache Encounter Details Date Type Department Care Team (Late st Contact Info) Description 03/25/2022 8:30 AM CDT Office Visit [facility] [address] [facility] [address] [facility] [place] [address] Bao Pierre MD [address] 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 Gender Identity Not on file Sexual Orientation Straight 10/15/2019 10 :34 PM ASSISTANT PRESSMAN documented as of this encounter Last Filed Vital Signs Vital Sign Reading Time Taken Comments Blood Pressure 180/82 03/25/2022 8:28 AM CDT Pulse 74 03/25/2022 8:28 AM CDT Temperature - - Respiratory Rate - - Oxygen Saturation - - Inhaled Oxygen Concentration - - Weight 88 kg (194 lb) 03/25/2022 8:28 AM CDT Height 177.8 cm (5' 10 ) 03/25/2022 8:28 AM CDT Body Mass Index 27.84 03/25/2022 8:28 AM CDT documented in this encounter Progress Notes * Bao Pierre MD - 03/25/2022 8:30 AM CDT Subjective/Objective Patient ID: Frandy Alvares is a 86 y.o. male. Chief Complaint Shoulder Pain and Earache HPI Patient here today for evaluation of shoulder pain. He also has pain in his jaw and ear. The patient has been seeing his dentist and also is been found to have a tooth that needs to be removed. It isbroken off inside the gum line. He has had no fever he has had no chills he has had no chest pain no shortness of breath. He does find some pain left greater than right shoulder and also in both jaws when he chews at times. Has pain in the ears as well. Past Surgical History: Procedure Laterality Date ??? BACK SURGERY ??? CARDIAC CATHETERIZATION 2012 ??? CATARACT EXTRACTION, BILATERAL ~2013, 2014 ??? HIP SURGERY Left 05/28/2018 DIMITRIOS ARNETT ??? MOHS SURGERY multiple ??? POSTERIOR LAMINECTOMY / DECOMPRESSION LUMBAR SPINE 2015 ??? CT REMOVAL GALLBLADDER 2017 ??? ROTATOR CUFF REPAIR ??? SHOULDER SURGERY 2012 rotator cuff repair ??? TOTAL HIP ARTHROPLASTY Family History Problem Relation [...] Conv) ??? Anesthesia problems Neg Hx Social History Tobacco Use ??? Smoking status: Former Smoker Types: Pipe Start date: 1965 Quit date: 10/02/2013 Years since quittin.4 ??? Smokeless tobacco: Never Used ??? Tobacco comment: 5-6 times a day Vaping Use ??? Vaping Use: Never used Substance Use Topics ??? Alcohol use: No ??? Drug use: Never Comment: denies CBD Immunization History Administered Date(s) Administered ??? Influenza, Quadrivalent, Split, Preservative Free, Intramuscular 07/01/2019, 07/01/2019 ??? Influenza, Trivalent, High Dose, Split, Preservative Free, Intramuscular 09/06/2012, 08/11/2016, 07/09/2017, 07/09/2017, 07/09/2017, 06/18/2020 ??? Influenza, Trivalent, Intramuscular 07/05/2013, 07/18/2014, 07/18/2014 ??? Influenza, Unspecified 08/11/2016, 07/09/2017, 08/02/2019, 08/02/2019, 06/18/2020 ??? Pneumococcal Conjugate PCV 13 03/04/2015 Current Outpatient Medications Medication Sig ??? alfuzosin ER (UROXATRAL) 10 mg 24 hr tablet Take 10 mg by mouth daily. ??? ascorbic acid-vitamin E-biotin 7.5-7.5-1,250 mg-unit-mcg tablet,chewable Take by mouth 2 (two) times a day ??? aspirin 81 mg enteric coated tablet Take 81 mg by mouth daily ??? azelastine (ASTELIN) 137 mcg (0.1 %) nasal spray Administer 1 spray into each nostril 2 (two) times a day Use in each nostril as directed ??? clopidogreL (PLAVIX) 75 mg tablet Take 75 mg by mouth daily ??? finasteride (PROSCAR) 5 mg tablet Take 5 mg by mouth daily. ??? fluticasone propionate (FLONASE) 50 mcg/actuation nasal spray Administer 2 sprays into each nostril daily ??? glucosamine-chondroitin 500-400 mg tablet Take 1 tablet by mouth daily ??? inulin 2 gram tablet,chewable Take 1 tablet by mouth 2 (two) times a day. (Patient not taking: Reported on 03/25/2022) ??? rosuvastatin (CRESTOR) 40 mg tablet Take 1 tablet (40 mg total) by mouth daily ??? UNABLE TO FIND prevegen daily Review of [...] past 24 hrs: BP Pulse Height Weight 03/25/22 0828 (!) 180/82 74 177.8 cm (5' 10 ) 88 kg (194 lb) Wt Readings from Last 3 Encounters: 03/25/22 88 kg (194 lb) 03/08/22 87.5 kg (193 lb) 01/13/22 85.8 kg (189 lb 1.9 oz) Physical Exam Constitutional: Appearance: Normal appearance. HENT: [...] for this visit: Chronic left shoulder pain (M25.512, G89.29) (Primary) Assessment & Plan: Will rule out an polymyalgia rheumatica check CBC sed rate and CRP also CMP. Doubt very much that this is cardiac illness. Do not think he should delay his tooth surgery while we are evaluating his shoulder pain. Labs No results found for: HGBA1C Lab Results Component Value Date POCCHOL 118 05/14/2021 POCCHOL 103 01/08/2021 Lab Results Component Value Date POCHDL 42 03/08/2022 POCHDL 34 05/14/2021 POCHDL 42 01/08/2021 Lab Results Component Value Date POCLDL 96 03/08/2022 POCLDL 57 05/14/2021 POCLDL 31 01/08/2021 Lab Results Component Value Date POCTRIG 139 03/08/2022 POCTRIG 133 05/14/2021 POCTRIG 149 01/08/2021 No results found for: A1C Lab Results Component Value Date CREATININE 1.05 12/03/2019 CREATININE 1.2 05/01/2019 CREATININE 1.32 (H) 05/01/2019 Lab Results Component Value Date COLORU Yellow 05/02/2019 CLARITYU Clear 05/02/2019 GLUCOSEUR Negative 05/02/2019 BILIRUBINUR Negative 05/02/2019 KETONESU Trace 05/02/2019 SPECGRAVU 1.021 05/02/2019 BLOODUR Negative 05/02/2019 UROBILINOGEN <2.0 05/02/2019 Bao Pierre MD documented in this encounter Miscellaneous Notes * Assessment & Plan Note - Bao Pierre MD - 03/25/2022 9:04 AM CDT Associated Problem(s): Chronic left shoulder pain Will rule out an polymyalgia rheumatica check CBC sed rate and CRP also CMP. Doubt very much that this is cardiac illness. Do not think he should delay his tooth surgery while we are evaluating his shoulder pain. documented in this encounter Plan of Treatment Not on file documented as of this encounter Goals Goal Patient Goal Type Associated Problems Recent Progress Patient-Stated? Author CCM Chronic Pain Care Plan Chronic Care Management Worsening( 8:02 AM ASSISTANT PRESSMAN) No Chika Watters, NIKKIE Note: Problem: Chronic Pain Goals: 1. Minimize further functional decline 2. Maximize quality of life 3. Control pain Strategies: - Activity/exercise program recommendation - Conservative stepwise pain medicine strategy with multi-disciplinary approach - Recommend healthy lifestyle strategies and compensatory methods as needed documented as of this encounter Procedures Procedure Name Priority Date/Time Associated Diagnosis Comments CBC WITH AUTO DIFFERENTIAL Routine 03/25/2022 9:09 AM CDT Chronic left shoulder pain ERYTHROCYTE SEDIMENTATION RATE Routine 03/25/2022 9:09 AM CDT Chronic left shoulder pain CRP (ACUTE PHASE) Routine 03/25/2022 9:0 9 AM CDT Chronic left shoulder pain COMPREHENSIVE METABOLIC PANEL Routine 03/25/2022 9:09 AM CDT Chronic left shoulder pain documented in this encounter Results * CRP (acute phase) (03/25/2022 9:09 AM CDT) CRP <1 0 - 10 mg/L [facility] - 01 Blood specimen (specimen) 03/25/2022 9:09 AM CDT 03/25/2022 Narrative [facility] - 03/26/2022 4:07 AM CDT Performed at: ??01 - [facility] [address], [place], [place] ??[id number] Canvas Cutter Machine: Abdulkadir Sebastian PhD, Phone: ??[phone] Bao Pierre MD LAB BLOOD ORDERABLES Final Re sult Performing Organization Address [facility] de Phone Number [facility] * Erythrocyte sedimentation rate (03/25/2022 9:09 AM CDT) Pathologist [facility] Erythrocyte sedimentation rate 2 0 - 30 mm/hr [facility] - 01 Blood specimen (specimen) 03/25/2022 9:09 AM CDT 03/25/2022 Narrative [facility] - 03/26/2022 4:07 AM CDT Performed at: ??01 - [facility] ??[id number] Canvas Cutter Machine: Abdulkadir Sebastian PhD, Phone: ??[phone] Bao Pierre MD LAB BLOOD ORDERABLES Final Re sult Performing Organization Address [facility] de Phone Number [facility] * (ABNORMAL) Comprehensive metabolic panel (03/25/2022 9:09 AM CDT) Pathologist [facility] Glucose 110(H) 65 - 99 mg/dL [facility] - 01 BUN 21 8 - 27 mg/dL [facility] - 01 Creatinine, Serum 1.11 0.76 - 1.27 mg/dL [facility] - 01 eGFR 65 >59 mL/min/1.7 3 [facility] - 01 BUN/creat ratio 19 10 - 24 [facility] - 01 Sodium 140 134 - 144 mmol/L [facility] - 01 Potassium, sr 4.9 3.5 - 5.2 mmol/L [facility] - 01 Chloride 104 96 - 106 mmol/L [facility] - 01 CO2 23 20 - 29 mmol/L [facility] - 01 Calcium 9.3 8.6 - 10.2 mg/dL [facility] - 01 Protein, sr 6.5 6.0 - 8.5 g/dL [facility] - 01 Albumin 4.4 3.6 - 4.6 g/dL [facility] - 01 Globulin, Total 2.1 1.5 - 4.5 g/dL [facility] - 01 A/G Ratio 2.1 1.2 - 2.2 [facility] - 01 Bilirubin, Total 0.5 0.0 - 1.2 mg/dL [facility] - 01 Alk phos 59 44 - 121 IU/L [facility] - 01 AST 29 0 - 40 IU/L [facility] - 01 ALT 24 0 - 44 IU/L [facility] - 01 Blood specimen (specimen) 03/25/2022 9:09 AM CDT 03/25/2022 Narrative [facility] - 03/26/2022 4:07 AM CDT Performed at: ??01 - [facility] ??[id number] Canvas Cutter Machine: Abdulkadir Sebastian PhD, Phone: ??[phone] us Bao Pierre MD LAB BLOOD ORDERABLES Final Re sult [facility] - 01 * CBC with auto differential (03/25/2022 9:09 AM CDT) WBC 7.3 3.4 - 10.8 x10E3/uL [facility] - 01 RBC 4.50 4.14 - 5.80 x10E6/uL [facility] - 01 Hgb 14.4 13.0 - 17.7 g/dL [facility] - 01 Hct 41.9 37.5 - 51.0 % [facility] - 01 MCV 93 79 - 97 fL [facility] - 01 MCH 32.0 26.6 - 33.0 pg [facility] - 01 MCHC 34.4 31.5 - 35.7 g/dL [facility] - 01 Rdw 12.5 11.6 - 15.4 % [facility] - 01 Platelets 180 150 - 450 x10E3/uL [facility] - 01 Neutrophils pct 71 Not Estab. % [facility] - 01 Lymphs pct 19 Not Estab. % [facility] - 01 Monocytes pct 7 Not Estab. % [facility] - 01 Eosinophils pct 2 Not Estab. % [facility] - 01 Basophil pct 1 Not Estab. % [facility] - 01 Neutrophil abs 5.2 1.4 - 7.0 x10E3/uL [facility] - 01 Lymphs (Absolute) 1.4 0.7 - 3.1 x10E3/uL [facility] - 01 Monocyte abs 0.5 0.1 - 0.9 x10E3/uL [facility] - 01 Eosinophils, abs 0.1 0.0 - 0.4 x10E3/uL [facility] - 01 Basophils, abs 0.1 0.0 - 0.2 x10E3/uL [facility] - 01 Immature Granulocytes 0 Not Estab. % [facility] - 01 Immature Grans (Abs) 0.0 0.0 - 0.1 x10E3/uL [facility] - 01 Blood specimen (specimen) 03/25/2022 9:09 AM CDT 03/25/2022 Narrative [facility] - 03/26/2022 4:07 AM CDT Performed at: ??01 - [facility] [address] ??[id number] Canvas Cutter Machine: Abdulkadir Sebastian PhD, Phone: ??[phone] us Bao Pierre MD LAB BLOOD ORDERABLES Final Re sult [facility] - 01 documented in this encounter Visit Diagnoses Diagnosis Chronic left shoulder pain- Primary Pain in joint, shoulder region documented in this encounter Care Teams Cement Tile Maker Relationship Specialty [place] [address] [place] [id number] PCP - General 12/22/16 documented as of this encounter
--- OUTSIDE RECORDS SUMMARY | 2024-10-01 08:42 | XMS_ITS | Encounter Summary ---
Author Organization [facility] Address [address] [place] [address] Phone Care Team Providers Care Sailing Master Name Role Phone Bao Pierre MD Primary Care Provider [phone] Reason for Visit * Reason Comments Follow-up Encounter Details Date Type Department Care Team (Late st Contact Info) Description 09/01/2022 10:45 AM TEACHER DRAMA Office Visit [facility] [address] [facility] Medical [facility] Building [address] [place] [id number] Flavio Fernandez MD [address] [facility] [address] [place] [address] Tear of left rotator cuff, unspecified tear extent, unspecified whether traumatic (Primary Dx); Subacromial bursitis of left shoulder joint Social History Tobacco Use Types Packs/Day Years [...] on file Legal Sex Male 9:03 PM TEACHER DRAMA Gender Identity Not on file Sexual Orientation Straight 10/15/2019 10 :34 PM TEACHER DRAMA documented as of this encounter Progress Notes * Flavio Fernandez MD - 09/01/2022 10:45 AM CST ESTABLISHED PATIENT VISIT INTERIM HISTORY This is an 87 yo M who returns with L shoulder rotator cuff pathology. He notes improvement in his symptoms but some continued difficulty with use of his arm aways from his body. PHYSICAL EXAMINATION No acute distress, alert and oriented X 3. He can forward elevate to 130??. He can externally rotate to 50??. He can internally rotate to the mid lumbar spine. He has mild pain in Keturah's position. REVIEW OF X-RAYS/STUDIES No new studies IMPRESSION/DIAGNOSIS Progressive improvement in L shoulder rotator cuff pathology TREATMENT/PLAN He is doing well in conservative management. We will continue PT and a new script was provided. Continue activities as tolerated. FOLLOW UP PRN Flavio Fernandez MD Assisstant Professor [facility] Dr Fernandez dictating via MModal. Block Machine Operator variances may occur. HER DRAMA documented in this encounter Plan of Treatment Not on file documented as of this encounter Goals Goal Patient Goal Type Associated Problems Recent Progress Patient-Stated? Author CCM Chronic Pain Care Plan Chronic Care Management Worsening( 8:02 AM TEACHER DRAMA) No Chika Watters, NIKKIE Note: Problem: Chronic Pain Goals: 1. Minimize further functional decline 2. Maximize quality of life 3. Control pain Strategies: - Activity/exercise program recommendation - Conservative stepwise pain medicine strategy with multi-disciplinary approach - Recommend healthy lifestyle strategies and compensatory methods as needed documented as of this encounter Visit Diagnoses Diagnosis Tear of left rotator cuff, unspecified tear extent, unspecified whether traumatic- Primary Subacromial bursitis of left shoulder joint documented in this encounter Care Teams Sailing Master Relationship Specialty Start Date End Date Bao Pierre MD [address] [facility] [address] [place] [address] PCP - General 12/22/16 documented as of this encounter
--- OUTSIDE RECORDS SUMMARY | 2024-10-01 08:42 | XMS_ITS | Encounter Summary ---
Author Organization [facility] Address [address] [place] [address] Phone Care Team Providers Care Form Building Supervisor Name Role Phone Bao Pierre MD Primary Care Provider [phone] Encounter Details Date Type Department Care Team (Latest Contact Info) Description 01/13/2022 8:30 AM CDT Office Visit [facility] [address] [facility] [address] [place] [address] Esteban Doyle MD [address] [facility] [address] [place], [place] [id number] Essential hypertension (Primary Dx); Coronary artery disease involving paimiut coronary artery of paimiut heart without angina pectoris; Hyperlipidemia, unspecified hyperlipidemia type Social History Tobacco Use Types Packs/Day Years [...] on file Legal Sex Male 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 Gender Identity Not on file Sexual Orientation Straight 10/15/2019 10 :34 PM COLD PRESS LOADER documented as of this encounter Last Filed Vital Signs Vital Sign Reading Time Taken Comments Blood Pressure 149/98 01/13/2022 8:08 AM CDT Pulse 60 01/13/2022 8:08 AM CDT Temperature - - Respiratory Rate - - Oxygen Saturation 97% 01/13/2022 8:08 AM CDT Inhaled Oxygen Concentration - - Weight 85.8 kg (189 lb 1.9 oz) 01/13/2022 8:08 A M CDT Height 177.8 cm (5' 10 ) 01/13/2022 8:08 AM CDT Body Mass Index 27.14 01/13/2022 8:08 AM CDT documented in this encounter Progress Notes * Esteban Doyle MD - 01/13/2022 8:30 AM CDT Images from the original note were not included. Cardiology Return Clinic Visit Visit Date: 01/13/22 Patient Diagnosis List 1. Coronary Artery Disease a. [facility] 12/2019 (stress test & CP) = [id number] mid-LAD stenosis (iFR 0.79) treated with 2.5 x 38 mm Xience Henny ROSELYN. Mild diffuse disease in RCA. 2. Hypertension + orthostatic hypotension 3. Hyperlipidemia 4. Noncardiac a. History of tobacco use (quit 2013) Dear Bao Pierre MD We had the pleasure of seeing Frandy Alvares at the [facility] in [place]. As you recall, he is a pleasant 86 y.o. male that we follow for coronary artery disease. Patient was previously followed by Dr. Garcia but has been referred to myself after their shelter. Since their last visit in March of 2021 with our COMMERCIAL LOAN MANAGER Mia, they have been doing well from a cardiovascular perspective. He reports that he does not have any limitations in his activities of daily living as he spends most this time with his two patino retrievers. He is able to picker operator sticks in his yd and do other physical activity without any angina, dyspnea on exertion, presyncope, or syncope. He is unclear exactly which medications he is taking as he has a aide come to his house to help him but she is currently away. He does not check his blood pressures at home. He does not endorse any further episodes of lightheadedness or orthostatic hypotension. ROS: As her HPI, otherwise 12 point review of systems reviewed and negative Objective CV Medications Aspirin 81 mg + clopidogrel 75 mg Rosuvastatin 40 mg Vitals & Physical Exam HR: 60 BP: 149/98 Weight: 189 lbs GEN: pleasant male in NAD; alert, comfortable, thought content appropriate HENT: NCAT, MMM, anicteric, no conjunctival pallor CVS: RRR, S1S2, no rubs/murmurs/gallops, no JVP appreciated, no edema PULM: non-labored, good inspiratory effort ABD: soft, NTND EXT: equal radial pulses, no malformations Neuro: no abnormal movements, nonfocal exam Skin: warm, dry Cardiac Studies Lipid 05/2021 = TC 118, HDL 34, TG 133, LDL 57 Assessment Recommendations #Coronary Artery Disease #Hypertension #History of Orthostatic Hypotension #Hyperlipidemia Patient is doing quite well from symptom standpoint, is euvolemic on exam, and has no limiting cardiovascular symptoms. I have asked him to start checking his blood pressure home so we can better assess his true blood pressure and avoid the risk of recurrent orthostatic hypotension. His LDL is at goal for secondary prevention. We will not plan on making any changes today. Thank you for the opportunity to participate in the care of this wonderful patient. We will plan onseeing them back in 6 months time. Please do not hesitate to contact us with any questions or concerns that may arise in the interim. Esteban Doyle MD on 01/13/2022 at 8:10 AM Livestock Truckerangle shear operator (Cardiology) Director, Sports Cardiology [facility] in [place] documented in this encounter Plan of Treatment Not on file documented as of this encounter Goals Goal Patient Goal Type Associated Problems Recent Progress Patient-Stated? Author CCM Chronic Pain Care Plan Chronic Care Management Worsening( 8:02 AM COLD PRESS LOADER) Chika Tracy, RN Note: Problem: Chronic Pain Goals: 1. Minimize further functional decline 2. Maximize quality of life 3. Control pain Strategies: - Activity/exercise program recommendation - Conservative stepwise pain medicine strategy with multi-disciplinary approach - Recommend healthy lifestyle strategies and compensatory methods as needed documented as of this encounter Visit Diagnoses Diagnosis Essential hypertension- Primary Unspecified essential hypertension Coronary artery disease involving paimiut coronary artery of paimiut heart without angina pectoris Hyperlipidemia, unspecified hyperlipidemia type documented in this encounter Historical Medications * This list may reflect changes made after this encounter. clopidogreL (PLAVIX) 75 mg tablet Take 1 tablet (75 mg total) by mouth daily 08/22/2023 added in this encounter Care Teams Form Building Supervisor Relationship Specialty Start Date End Date Bao Pierre MD [address] [address] PCP - General 12/22/16 documented as of this encounter
--- OUTSIDE RECORDS SUMMARY | 2024-10-01 08:42 | XMS_ITS | Encounter Summary ---
Author Organization [facility] Healthcare Address [address] [place] [address] Care Team Providers Care Instructional Resource Teacher Name Role Phone Bao Pierre MD Primary Care Provider [phone] Reason for Referral * Diagnostic Imaging (Routine) - Closed Specialty Diagnoses / Procedures Referred By Amber t Referred To Contact Diagnoses Right hip pain Procedures XR Hip Right 4 or More Views Jamie Keys MD [address], [place] [address] Phone: tel: fax: [facility] [place] [address] [place] [phone] Phone: tel: Referral ID Status Reason Start Date Expiration Date Visits Re quested Visits Authorized [id number] Closed 02/28/2023 03/29/2024 1 1 Reason for Visit * Diagnostic Imaging (Routine) - Closed Specialty Diagnoses / Procedures Referred By Contac t Referred To Contact Diagnoses Right hip pain Procedures XR Hip Right 4 or More Views Jamie Keys MD [address] [place] [address] Phone: tel: fax: [facility] [place] [address] [place] [phone] Phone: tel: Referral ID Status Reason Start Date Expiration Date Visits Re quested Visits Authorized [id number] Closed 02/28/2023 03/29/2024 1 1 Encounter Details Date Type Department Care Team (Latest Contact Info) Description 02/28/2023 10:05 AM CDT - 02/28/2023 11:59 PM CDT Hospital Encounter [id number] [address] 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 FIRE MANAGER Gender Identity Not on file Sexual Orientation Straight 10/15/2019 10 :34 PM FIRE MANAGER documented as of this encounter Medications at Time of Discharge ascorbic acid-vitamin E-biotin 7.5-7.5-1,250 mg-unit-mcg tablet,chewable Take by mouth 2 (two) times a day aspirin 81 mg enteric coated tablet Take 1 tablet (81 mg total) by mouth daily glucosamine-chond roitin 500-400 mg tablet Take 1 tablet by mouth daily alfuzosin ER (UROXATRAL) 10 mg 24 hr tabletIndications :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 Take 1 tablet (10 mg total) by mouth daily 4 azelastine (ASTELIN) 137 mcg (0.1 %) nasal spray Administer 1 spray into each nostril 2 (two) times a day Use in each nostril as directed 30 mL 1 03/08/2022 3 clopidogreL (PLAVIX) 75 mg tablet Take 1 tablet (75 mg total) by mouth daily 3 donepeziL (ARICEPT) 5 mg tablet Take 1 tablet (5 mg total) by mouth nightly 90 tablet 4 02/08/2023 3 finasteride (PROSCAR) 5 mg tabletIndications :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 Take 1 tablet (5 mg total) by mouth daily 4 fluticasone propionate (FLONASE) 50 mcg/actuation nasal spray Administer 2 sprays into each nostril daily 3 each 03/08/2022 4 glucosamine sulfate 500 mg capsule GLUCOSAMINE CAPSULE 09/13/2013 3 inulin 2 gram tablet,chewable Take 1 tablet by mouth 2 (two) times a day 3 rosuvastatin (CRESTOR) 40 mg tablet Take 1 tablet (40 mg total) by mouth daily 90 tablet 3 10/22/2020 4 UNABLE TO FIND prevegen daily 3 documented as of this encounter Discharge Disposition Disposition Code Departure Means Destination Discharge to home or self care documented in this encounter Plan of Treatment Not on file documented as of this encounter Goals Goal Patient Goal Type Associated Problems Recent Progress Patient-Stated? Author CCM Chronic Pain Care Plan Chronic Care Management Worsening( 8:02 AM FIRE MANAGER) Chika Tracy, RN Note: Problem: Chronic Pain Goals: 1. Minimize further functional decline 2. Maximize quality of life 3. Control pain Strategies: - Activity/exercise program recommendation - Conservative stepwise pain medicine strategy with multi-disciplinary approach - Recommend healthy lifestyle strategies and compensatory methods as needed documented as of this encounter Procedures Procedure Name Priority Date/Time Associated Diagnosis Comments XR HIP RIGHT 4 OR MORE VIEWS Schedule Routine, Read Routine (OP Routine) 02/28/2023 10:33 AM CDT Right hip pain documented in this encounter Results [...] this encounter Visit Diagnoses Diagnosis Right hip pain Pain in joint, pelvic region and thigh documented in this encounter Care Teams Instructional Resource Teacher Relationship Specialty Start Date End Date Bao Pierre MD [address] [address] PCP - General 12/22/16 documented as of this encounter
--- OUTSIDE RECORDS SUMMARY | 2024-10-01 08:42 | XMS_ITS | Encounter Summary ---
Author Organization [facility] Healthcare Address [address] [place] [address] Care Team Providers Care Telecommunications Field Engineer Name Role Phone Bao Pierre MD Primary Care Provider [phone] Reason for Visit * Reason Onset Date Comments Pre Cert 09/06/2021 lmbb #2 Encounter Details Date Type Department Care Team (Late st Contact Info) Description 09/06/2021 Telephone [facility] [address] [facility] [address] [place], [place] [id number] Eddi Shafer MD [address] [facility] [address] [facility] [phone] [place], [place] [id number] Pre Cert (lmbb #2 ) Social History Tobacco Use Types Packs/Day [...] on file Legal Sex Male 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 Pt had lmbb # 1 8. Per post proc call note pt did NOT get 80% or greaterbenefit. Pt has medicare and he does NOT meet medicare guidelines to repeat 2nd dx. Diagnostic Procedures- must be 80% or greater to proceed to the each - 2nd diagnostic and then rfa per medicare I will change to follow up for now, unless Dr. Shafer has a different procedure to he wants to do. D WASTE DISPOSAL MANAGER documented in this encounter Plan of Treatment Not on file documented as of this encounter Goals Goal Patient Goal Type Associated Problems Recent Progress Patient-Stated? Author CCM Chronic Pain Care Plan Chronic Care Management Worsening( 8:02 AM SOLID WASTE DISPOSAL MANAGER) No Chika Watters, RN Note: Problem: Chronic Pain Goals: 1. Minimize further functional decline 2. Maximize quality of life 3. Control pain Strategies: - Activity/exercise program recommendation - Conservative stepwise pain medicine strategy with multi-disciplinary approach - Recommend healthy lifestyle strategies and compensatory methods as needed documented as of this encounter Visit Diagnoses Not on filedocumented in this encounter Care Teams Telecommunications Field Engineer Relationship Specialty Start Date End Date Bao Pierre MD [address] [facility] [address], [place] [address] PCP - General 12/22/16 documented as of this encounter
--- OUTSIDE RECORDS SUMMARY | 2024-10-01 08:42 | XMS_ITS | Encounter Summary ---
Author Organization [facility] [employer] [facility] Address [address] [place] [address] Phone Care Team Providers Care Hadoop Engineer Name Role Phone Bao Pierre MD Primary Care Provider [phone] Encounter Details Date Type Department Care Team (Late st Contact Info) Description 08/04/2022 Telephone [facility] Orthopaedic Surgery [address] [facility] [address] [facility] [address] [place] [address] Danii López RMA Social History Tobacco Use Types Packs/Day Years [...] on file Legal Sex Male 9:03 PM 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 documented in this encounter Plan of Treatment Not on file documented as of this encounter Goals Goal Patient Goal Type Associated Problems Recent Progress Patient-Stated? Author CCM Chronic Pain Care Plan Chronic Care Management Worsening( 8:02 AM COBOL ENGINEER) Chika Tracy, RN Note: Problem: Chronic Pain Goals: 1. Minimize further functional decline 2. Maximize quality of life 3. Control pain Strategies: - Activity/exercise program recommendation - Conservative stepwise pain medicine strategy with multi-disciplinary approach - Recommend healthy lifestyle strategies and compensatory methods as needed documented as of this encounter Visit Diagnoses Not on filedocumented in this encounter Care Teams Hadoop Engineer Relationship Specialty Start Date End Date Bao Pierre MD [address] [address] PCP - General 12/22/16 documented as of this encounter
--- OUTSIDE RECORDS SUMMARY | 2024-10-01 08:42 | XMS_ITS | Encounter Summary ---
Author Organization [facility] [employer] [facility] Address [address] [place] [address] Phone Care Team Providers Care Tile And Mottle Supervisor Name Role Phone Bao Pierre MD Primary Care Provider [phone] Reason for Visit * Reason Comments Follow-up Encounter Details Date Type Department Care Team (Late st Contact Info) Description 06/20/2022 2:20 PM CDT Office Visit [facility] Orthopaedic Surgery [address] [facility] [address] [place] [address] Flavio Fernandez MD [address] [facility] [address] [place] [address] Tear of left rotator cuff, unspecified tear extent, unspecified whether traumatic (Primary Dx) Social History Tobacco Use Types [...] on file Legal Sex Male 9:03 PM PHOTOGRAPHIC DOUBLE Gender Identity Not on file Sexual Orientation Straight 10/15/2019 10 :34 PM PHOTOGRAPHIC DOUBLE documented as of this encounter Progress Notes * lFavio Fernandez MD - 06/20/2022 2:20 PM CDT ESTABLISHED PATIENT VISIT INTERIM HISTORY This is an 86-year-old male that returns with left rotator cuff pathology based pain. Given a subacromial injection. He states that he thinks his pain is improving significantly. His liver states that he complains of pain frequently is unable to participate in physical therapy. He has minimal complaints and states the only time that he has pain is when he goes through the drive-through and has toreach his arm away from his body. PHYSICAL EXAMINATION No acute distress, alert and oriented X 3. He can forward elevate to 130??. He can externally rotate to 50??. He can internally rotate to the mid lumbar spine. He has pain in Keturah's position. REVIEW OF X-RAYS/STUDIES No new studies IMPRESSION/DIAGNOSIS Improved pain associated with rotator cuff pathology TREATMENT/PLAN I reviewed the findings with the patient today. He states that his pain is minimal. Feels that it is improving. Despite this, his caregiver can not discern straight he is minimizing his pain. Despitethis, I reviewed that if his pain is improving or if he is minimizing his overall pain, this does not significantly change my management. I would continue with activities as tolerated. His subacromial injection provided short-term relief and I would not repeat it. He does not seem to be getting ongoing benefit from physical therapy therefore I would stop it. Without significant planes of pain from the patient, I would not be get more aggressive in his treatment. FOLLOW UP P.r.n. Flavio Fernandez MD Assisstant Professor [facility] Dr Fernandez dictating via MModal. Campaign Marketing Manager variances may occur. documented in this encounter Plan of Treatment Not on file documented as of this encounter Goals Goal Patient Goal Type Associated Problems Recent Progress Patient-Stated? Author CCM Chronic Pain Care Plan Chronic Care Management Worsening( 8:02 AM PHOTOGRAPHIC DOUBLE) Chika Tracy, RN Note: Problem: Chronic Pain [...] unspecified tear extent, unspecified whether traumatic- Primary documented in this encounter Care Teams Tile And Mottle Supervisor Relationship Specialty Start Date End Date Bao Pierre MD [address] [address] PCP - General 12/22/16 documented as of this encounter
--- OUTSIDE RECORDS SUMMARY | 2024-10-01 08:42 | XMS_ITS | Encounter Summary ---
Author Organization [facility] Healthcare Address [address] [place] [address] Care Team Providers Care Shank Burnisher Name Role Phone Bao Pierre MD Primary Care Provider [phone] Encounter Details Date Type Department Care Team (Latest Contact Info) Description 08/13/2021 6:42 AM REVIEW TRAINER - 08/13/2021 11:59 PM [facility] Hospital Encounter [facility] [address] [facility] [address] [place] [address] Milagros Alvarenga NP [address] [facility] [address] [place] [address] Chronic bilateral low back pain without sciatica (Primary Dx); Memory difficulties Discharge Disposition: Discharge to home or self [...] on file Legal Sex Male 9:03 PM REVIEW TRAINER Gender Identity Not on file Sexual Orientation Straight 10/15/2019 10 :34 PM REVIEW TRAINER documented as of this encounter Discharge Instructions * Patient Instructions* Milagros Alvarenga NP - 08/13/2021 10:00 AM REVIEW TRAINER Analgesics - - No changes He is to bring Shayy or his son so that we can give details to them - since he will not remember - reviewed MRI - not a candidate for vertiflex - Follow-up - Return to Pain Center - with Dr. Shafer -FELICITY - (s) follow up visits patient must call CAM and schedule visit with front desk team member - Call as needed- local anesthetic lumbar medial branch blocks to denervate facet joints B L3-4, B L5-S1 (as well as B L4-5). For prepariaton -radiofrequency ablation for denervation facet joints B L3-4, B L5-S1 AVS mailed to patient's home. EW TRAINER EW TRAINER EW TRAINER documented in this encounter Medications at Time [...] (10 mg total) by mouth daily 4 finasteride (PROSCAR) 5 mg tabletIndications :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 Take 1 tablet (5 mg total) by mouth daily 4 glucosamine sulfate 500 mg capsule GLUCOSAMINE CAPSULE 09/13/2013 3 inulin 2 gram tablet,chewable Take 1 tablet by mouth 2 (two) times a day 3 lisinopril-hydroC HLOROthiazide (ZESTORETIC) 10-12.5 mg per tablet 10/02/1969 2 rosuvastatin (CRESTOR) 40 mg tablet Take 1 tablet (40 mg total) by mouth daily 90 tablet 3 10/22/2020 4 UNABLE TO FIND prevegen daily 3 documented as of this encounter Discharge Disposition Disposition Code Departure Means Destination Discharge to home or self care documented in this encounter Progress Notes * Milagros Alvarenga BACON STRINGER - 08/13/2021 10:00 AM CST This was a telemedicine visit with Frandy Alvares alone which took place via Telephone. During the visit, I was located in the office and the patient was located at home in the [facility] . The patient visit started at 0950 and ended at 1008. . The patient has been informed that the visit may not be secure and acknowledged the information. I have explained the option of participating in a telephone or video visit during the [facility]- public main campus medical center emergency to the patient. After being given an opportunity to ask questions about and discuss this type of visit, the patient verbally consented to proceeding with the telephone/video visit.The patient understands that this service replaces an office visit and they may be billed and/or responsible for any applicable copayments. Patient Name: Frandy Alvares : 1935 Today's Date: 08/13/2021 PCP: Bao Pierre MD - chief complaint on file. My back still hurts Pain Management History Mr. FRANDY ALVARES 37 was initially seen in the Pain Ctr., September 09 [address] Florentin Alva for left lower back pain. - medical illness - hypertension, hypercholesterolemia, CAD with stent December 2019, BPH Mr Alvares has long of history of lower back pain. It is getting worse recently. The pain is in the left lower back without radiation. The pain is rated 6 out 10. It is throbbing aching in nature. The pain happens only when he bend slightly forward, like making bed, or making dishes. Sitting down immediately relief the pain. He had right shoulder rotator cuff repair 08/[address] Sher. 07/22/15 - L3-4, L4-5 posterior spinal decompression with Dr. Chance L-spine radiographs [facility] 01/09/18 - Prior lumbar laminectomy L3, L4 - lumbar spondylosis - rotary dextroscoliosis lumbar spine; facet arthropathy mid and lower lumbar spine severe R>L - lumbar disc degeneration - severe T12-L5 Left Hip radiographs [facility] 01/09/18 : - hip osteoarthritis, left - moderate, progressive compared with prior hip radiograph 09/20/11 Lumbar spine MRI 02/13/19 - prior lumbar laminectomy L3, L4, L5 - lumbar spondylosis - mild dextroscoliosis apex L3; slight retrolisthesis L2-3 - lumbar disc degeneration moderate, diffuse L1-2, L2-3, L3-4, L4-5 - lumbar spinal canal stenosis - severe L1-2 with effacement of spinal fluid; moderate L2-3, there is no spinal canal stenosis L3-4, L4-5, L5-S1 Pelvis, left hip radiographs [facility] 06/24/19 - left total hip arthroplasty in near-anatomic alignment - hip osteoarthritis, right - mild 02/22/2021 - worsened low back pain Worst Pain: Low back Pain intensity: worst pain in last week - 10 /10; least pain - 0; current pain - 8 /10 Radiation of pain: Regional Associated signs/symptoms: - minimal pain with sitting - severe exacerbation of pain with stand, walk ---- with standing, the severity of pain ???shuts (him) down ---- + grocery cart, denies symptoms of neurogenic claudication, walking is limited by severity of back pain ---- ???immediate?? relief of back pain with sitting He had cardiac arrhythmia that was newly identified in recovery area in Pain Center at last appointment - that lead to cardiac evaluation and eventually cardiac catheterization which required stent December[address] Garcia - 10/22/20 note reviewed --- Dr. Garcia has subsequently retired, cardiology follow-up is planned - generally doing well since cardiac catheterization/stent, without symptomatic heart disease Radiographic imaging Reviewed lumbar spine MRI [facility] - lumbar spinal canal stenosis - mod-severe L1-2 - prior lumbar spine surgery with laminectomy L3, L4, L5 NOTE: He might be a candidate for for to flex. - need updated imaging Radiographic imaging and radiology Lumbar spine radiographs [facility] 05/31/21 - lumbar spondylosis - mild rotary dextroscoliosis apex L3; facet arthropathy diffuse lower lumbar levels - lumbar disc degeneration - severe L3-4, L4-5, L5-S1 - hip osteoarthritis, right - moderate, prior left CHRISTIANO Lumbar spine MRI [facility] 06/19/21 - prior lumbar spine surgery - a posterior lumbar laminectomy L3-4, L4-5 - lumbar spondylosis - mild stepwise retrolisthesis L1-2, L2-3, L3-4, L4-5, L5- S1; lumbar spondylosis - facet arthropathy B L1-2, B L2-3, B L3-4, B L4-5, B L5- S1; foraminal narrowing severe L L3-4, BL4-5, B L5-S1 - lumbar spinal canal stenosis - moderate L2-3 - displaced lumbar disc - diffuse disc bulge all lumbar levels Impression: Extensive degenerative changes throughout lumbar spine On review of last office visit 05/31/21, he had excellent temporary relief of pain following local anesthetic lumbar medial branch blocks to denervate facet joints B L3-4, B L5-S1 (as well as B L4-5). Based on that improvement, it would be reasonable to proceed with radiofrequency ablation lumbar medial branch nerves at those levels. Alternatively, consideration could be given to spinal cord stimulation. 05/31/2021 Frandy Alvares returns to the [facility] for follow-up regarding ongoing low back pain Pain Score: 0 - No pain Pain Location: Back (Lumbar) Pain Orientation: Bilateral Pain Descriptors: Shooting Pain Radiating Towards: localized LBP Pain Frequency: Frequently Worst Pain: Low back Pain intensity: Marked fluctuation in severity, sometimes 7/tender worse Radiation of pain: Regional Associated signs/symptoms: Increased with stand, walk - in general, while sitting, he has no pain --- symptoms of neurogenic spinal claudication Injection therapies: - initially excellent pain relief from local anesthetic medial branch blocks 05/05/21; however, the family called the next day pain had largely returned and this accounts for his report that the injections were not of much benefit. Shortly after procedure he had much improved pain control with over 80% pain relief. Exercise programs: Limited due to severity of pain with stand, walk Pain Management Summary - Other Chronic pain - hip pain, left - hip osteoarthritis, left - moderate, progressive compared with prior hip radiograph 09/20/11 - Left Hip radiographs [facility] 01/09/18 - Lumbago with left sciatica - Post lumbar laminectomy syndrome - Dr. Chance L3-4, L4-5 laminectomy/decompression 07/22/17 - lumbar spinal canal stenosis - severe L1-2 with effacement of spinal fluid; moderate L2-3, there is no spinal canal stenosis L3-4, L4-5, L5-S1 - Lumbar spine MRI 02/13/19 - lumbar spondylosis - mild dextroscoliosis apex L3; slight retrolisthesis L2-3 - lumbar disc degeneration moderate, diffuse L1-2, L2-3, L3-4, L4-5 - medical illness - hypertension, hypercholesterolemia, CAD with stent December 2019 (clopidogrel), BPH Pain Procedure Summary: 11/07/12 Lumbar transforaminal epidural steroid injections - B L1-2, B L2-3 - glycopyrrolate given for transient vasovagal reaction 01/12/15 Lumbar transforaminal epidural steroid injections - B L1-2, B L2-3 - glycopyrrolate given intravenously prior to procedure given prior vagal reaction 02/11/15 Lumbar transforaminal epidural steroid injections - B L1-2, B L2-3 - glycopyrrolate given intravenously prior to procedure given prior vagal reaction 01/16/18 Hip joint injection - left 08/05/19 Lumbar medial branch blocks bilateral L3, L4, L5, S1 - essentially complete temporary relief of pain 05/05/21 Lumbar medial branch blocks to temporarily denervated facet joints B L3-4, B L5-S1 - excellent temporary pain relief > 80% Today's Visit 08/13/2021 - telemedicine - BACON STRINGER Milagros Today's note documents my personal evaluation of this patient. Frandy Alvares returns to the [facility] for follow-up regarding low back pain Worst Pain: Low back Pain intensity: it can make me lightheaded , bring tears to my eyes Radiation of pain: The entire width of my back to the crack Associated signs/symptoms: Worse with walking Any noticeable change in gait?: no Any noticeable change in bowel or bladder function?:no Any change or new type/form of saddle anesthesia?:no Injection therapies: He doesn't remember , He can say that he knows he has been helped in the past Exercise programs: Walking - although limited by pain Past Medical Histoy Allergies Allergen Reactions ??? Epinephrine Syncope and Dizziness Current Outpatient Medications on File Prior to Encounter Medication Sig Dispense Refill ??? alfuzosin ER (UROXATRAL) 10 mg 24 hr tablet Take 10 mg by mouth daily. ??? ascorbic acid-vitamin E-biotin 7.5-7.5-1,250 mg-unit-mcg tablet,chewable Take by mouth 2 (two) times a day ??? aspirin 81 mg enteric coated tablet Take 81 mg by mouth daily ??? finasteride (PROSCAR) 5 mg tablet Take 5 mg by mouth daily. ??? glucosamine-chondroitin 500-400 mg tablet Take 1 tablet by mouth daily ??? inulin (FIBER GUMMIES) 2 gram tablet,chewable Take 1 tablet by mouth 2 (two) times a day. ??? lisinopril-hydroCHLOROthiazide (ZESTORETIC) 10-12.5 mg per tablet LISINOPRIL-HYDROCHLOROTHIAZIDE 10-12.5 MG ORAL TABLET ??? rosuvastatin (CRESTOR) 40 mg tablet Take 1 tablet (40 mg total) by mouth daily 90 tablet 3 ??? UNABLE TO FIND prevegen daily No current facility-administered medications on file prior to encounter. Patient Active Problem List Diagnosis ??? Primary [...] (HCC) ??? Spinal stenosis ??? Memory difficulties Family History Problem Relation Age of Onset [...] ??? Anesthesia problems Neg Hx Social History Socioeconomic History ??? Marital status: Spouse name: Not on file ??? Number of children: Not on file ??? Years of education: Not on file ??? Highest education level: Not on file Occupational History ??? Not on file Tobacco Use ??? Smoking status: Former Smoker Types: Pipe Start date: 1965 Quit date: 10/02/2013 Years since quittin.8 ??? Smokeless tobacco: Never Used ??? Tobacco comment: 5-6 times a day Substance and Sexual Activity ??? Alcohol use: No ??? Drug use: Never Comment: denies CBD ??? Sexual activity: Defer Other Topics Concern ??? Not on file Social History Narrative Smoking A Pipe : (Added by TW Conv) Current smoker : (Added by TW Conv) No alcohol use : (Added by TW Conv) : (Added by TW Conv) Retired : (Added by TW Conv) Social Determinants of Health Financial Resource Strain: Not on file Food Insecurity: Not on file Transportation Needs: Not on file Physical Activity: Not on file Stress: Not on file Social Connections: Not on file Intimate Partner Violence: Not on file Housing Stability: Not on file Review of Systems Constitutional: Negative. HENT: Negative. Eyes: Negative. Respiratory: Negative. Cardiovascular: Negative. Endocrine: Negative. Genitourinary: Negative. Musculoskeletal: Positive for arthralgias, back pain and myalgias. Allergic/Immunologic: Negative. Neurological: Positive for light-headedness. Psychiatric/Behavioral: Negative. As above Physical Exam There were no vitals filed for this visit. There is no height or weight on file to calculate BMI. CONSTITUTIONAL: no acute distress, alert and oriented NEUROLOGIC EXAM: Speech fluent and appropriate. PSYCHIATRIC: Oriented X 2-, memory intact, and alert. Normal insight and judgement. Normal mood andaffect. He offers he will not remember any details from this call Lab/Radiology/Diagnostic Review: none to review- below is outdated - reviewed today Laboratory review: Chemistry CMP: Lab Results Component Value Date ALBUMIN 4.0 05/01/2019 BUNSER 24 12/03/2019 CALCIUM 8.1 (L) 12/03/2019 CO2 28 12/03/2019 CHLORIDE 105 12/03/2019 CREATININE 1.05 12/03/2019 GLUCOSE 149 12/03/2019 POTASSIUM 4.0 12/03/2019 SODIUM 142 12/03/2019 BILITOT 0.3 05/01/2019 PROT 6.9 05/01/2019 ALT 32 05/01/2019 AST 27 05/01/2019 ALKPHOS 48 05/01/2019 , Chemistry BMP Lab Results Component Value Date GLUCOSE 149 12/03/2019 CALCIUM 8.1 (L) 12/03/2019 SODIUM 142 12/03/2019 POTASSIUM 4.0 12/03/2019 CO2 28 12/03/2019 BUNSER 24 12/03/2019 CREATININE 1.05 12/03/2019 , CBC: Lab Results Component Value Date WBC 6.7 12/03/2019 RBC 3.91 (L) 12/03/2019 HGB 12.5 (L) 12/03/2019 HCT 38.0 (L) 12/03/2019 MCV 97.2 (H) 12/03/2019 MCH 32.0 12/03/2019 MCHC 32.9 12/03/2019 RDW 13.2 07/14/2015 RDWCV 12.5 12/03/2019 RDWSD 45.0 12/03/2019 MPV 10.9 12/03/2019 NRBCABS 0.00 12/03/2019 , Coags: Lab Results Component Value Date PT 11.4 05/01/2019 APTT 24.3 (L) 05/01/2019 INR 1.05 05/01/2019 and POC Glucose: Lab Results Component Value Date GLUCOSE 149 12/03/2019 Assessment 1. Chronic bilateral low back pain without sciatica 2. Memory difficulties Discussion: Analgesics : - none to review Injection therapies: - he could not remember Physical therapy /HEP: - walks Psychological/behavioral medicine: - good spirits Surgical intervention: - none to coordinate Orders: No orders of the defined types were placed in this encounter. 08/13/2021 Telemedicine Plan : Analgesics - - No changes He is to bring Shayy or his son so that we can give details to them - since he will not remember - reviewed MRI - not a candidate for vertiflex - Follow-up - Return to Pain Center - with Dr. Soni RAY - (s) follow up visits patient must call CAM and schedule visit with front desk team member - Call as needed- local anesthetic lumbar medial branch blocks to denervate facet joints B L3-4, B L5-S1 (as well as B L4-5). For prepariaton -radiofrequency ablation for denervation facet joints B L3-4, B L5-S1 Milagros Alvarenga, SAMANTHA- On 08/13/2021, time spent on evaluation includes: 0 minutes spent prior to visit in chart review and preparation, review of medical records 18 minutes spent in [id number] time with patient during the evaluation 9 minutes spent after the visit including ordering prescription(s), ordering diagnostic test(s), and chart completion after documentation 27 TOTAL time spent on evaluation on 08/13/2021 EW TRAINER * Jossie East RN - 08/13/2021 10:00 AM CST Reason for visit: Our physical space limits our ability to see patients in clinic while following the [facility] social distancing guidelines; a telehealth visit allows us to provide safe, essential and timely care for our patients. EW TRAINER documented in this encounter Miscellaneous Notes * Addendum Note - Jossie East RN - 08/13/2021 10:00 AM CSTEncounter addended by: Jossie East RN on: 08/13/2021 10:27 AM Actions taken: Charge Capture section accepted, Clinical Note Signed EW TRAINER * Addendum Note - Colleen Molina - 08/13/2021 10:00 AM CSTEncounter addended by: Colleen Molina on: 08/16/2021 7:29 AM Actions taken: Procedure log completed EW TRAINER documented in this encounter Plan of Treatment Not on file documented as of this encounter Goals Goal Patient Goal Type Associated Problems Recent Progress Patient-Stated? Author CCM Chronic Pain Care Plan Chronic Care Management Worsening( 8:02 AM REVIEW TRAINER) No Chika Watters RN Note: Problem: Chronic Pain Goals: 1. Minimize further functional decline 2. Maximize quality of life 3. Control pain Strategies: - Activity/exercise program recommendation - Conservative stepwise pain medicine strategy with multi-disciplinary approach - Recommend healthy lifestyle strategies and compensatory methods as needed documented as of this encounter Visit Diagnoses Diagnosis Chronic bilateral low back pain without sciatica- Primary Memory difficulties Memory loss documented in this encounter Care Teams Shank Burnisher Relationship Specialty Start Date End Date Bao Pierre MD [address] [address] PCP - General 12/22/16 documented as of this encounter
--- OUTSIDE RECORDS SUMMARY | 2024-10-01 08:42 | XMS_ITS | Encounter Summary ---
Author Organization [facility] Healthcare Address [address] [place] [address] Care Team Providers Care Clinical Program Consultant Name Role Phone Bao Pierre MD Primary Care Provider [phone] Reason for Visit * Reason Comments Back Pain starts in lower back and radiates to bilateral buttocks Encounter Details Date Type Department Care Team (Latest Contact Info) Description 09/13/2021 7:45 AM TAX MANAGER - 09/13/2021 11:59 PM [facility] Hospital Encounter [facility] [place] [facility] [address] [facility] [address] [place], [place] [id number] Eddi Shafer MD [address] [facility] [id number] [place] [address] Spondylosis of lumbar region without myelopathy or radiculopathy (Primary Dx); Bilateral low back pain without sciatica, unspecified chronicity; Spinal stenosis of lumbar region with neurogenic claudication Discharge Disposition: Discharge to home or self [...] on file Legal Sex Male 9:03 PM TAX MANAGER Gender Identity Not on file Sexual Orientation Straight 10/15/2019 10 :34 PM TAX MANAGER documented as of this encounter Last Filed Vital Signs Vital Sign Reading Time Taken Comments Blood Pressure 137/78 09/13/2021 9:37 AM TAX MANAGER Pulse 78 09/13/2021 9:37 AM TAX MANAGER Temperature 36.4 ??C (97.5 ??F) 09/13/2021 8:02 AM CS T Respiratory Rate 13 09/13/2021 9:37 AM TAX MANAGER Oxygen Saturation 100% 09/13/2021 9:37 AM TAX MANAGER Inhaled Oxygen Concentration - - Weight 80.3 kg (177 lb) 09/13/2021 8:02 AM TAX MANAGER Height 172.7 cm (5' 8 ) 09/13/2021 8:02 AM TAX MANAGER Body Mass Index 26.91 09/13/2021 8:02 AM TAX MANAGER documented in this encounter Discharge Instructions * Discharge Instructions* Alice Motley RN - 09/13/2021 9:13 AM TAX MANAGER 8 HOUR PAIN DIARY Pain Intensity Scale Worst pain 10 Completely interferes 9 with Activities of Daily Living Very severe pain 8 Greatly interferes 7 with ADL's Severe Pain 6 Partially interferes 5 with ADL'S Moderate pain 4 Somewhat interferes 3 with ADL'S Mild Pain 2 Mildly interferes 1 with ADL'S No Pain 0 Does not interfere with ADL'S Rate your pain every hour over the next 8 hours starting at . We will call you for the results on the next business day. Your Doctor wants to know if this procedure helped you 1 hour after procedure 2 hour after procedure 3 hours after procedure 4 hours after procedure 5 hours after procedure 6 hours after procedure 7 hours after procedure 8 hours after procedure [facility] ([facility] DISCHARGE INSTRUCTIONS MEDICATIONS: [x] Continue your current home medications Start: [x] Notify your pharmacy for refill(s) 7 days before you are out of your medication. [] Opioid (Narcotic) Agreement signed and patient received copy. [] Side Effects of Opioid Medications given to patient Resume blood thinner: On Discontinue: PROCEDURE at today's visit: Bilateral lumbar medial branch block L3-4, L5-S1 DIET: [x] Resume normal diet [] See [facility] Post Discharge Procedure Information Sheet ACTIVITY: [] Resume normal activity [x] See [facility] Post Discharge Procedure Information Sheet REFERRALS: Physical Therapy [] [facility] ([phone]) [] G[facility] ([employer]) [] [facility] ([phone]) Option 1 [] [facility] ([employer]) [] Other: Behavior Medicine [] Pain Psychologist, [facility] Please call to schedule appointment [phone] or [phone] Diagnostic Test(s): EDUCATION provided on the following: [] Spinal Cord Stimulator Education and DVD. Vendor: FOLLOW UP APPOINTMENTS: [x] Return as needed [] Follow up appointment: We will contact you the next business day to obtain: [x] An update on your condition [x] Your Pain diary scores [] Procedure at your next visit : COVID 19 Vaccine and Booster Update Steroids given for a procedure may decrease the effectiveness of the COVID 19 vaccine. Therefore, steroid injections will be held for 2(two) weeks before your first vaccine until 2 (two)weeks after your second vaccine. Please schedule your procedure according to the above guidelines. INSTRUCTIONS before your next procedure: [] See [facility] Pre-Procedure Information Sheet [] Do not eat or drink for six (6) hours before the time/date of the procedure. [] Inquire with your prescribing provider if ok to hold blood thinner for ( ) days before procedure. [] Blood work required 2 hours before procedure: [] Still Operator needed for next procedure [] Pre Procedure instructions will be sent through c8apps or by phone two working days prior to procedure. *Need help with c8apps? Call [phone]. Patient provided information and repeated back with understanding. If you need to reach us: For any questions about your procedure, please call the Pain Management Center [phone] (M-F) (8am-4pm) If you need urgent attention after 5 pm and weekends: Call the [facility] Supervisor [employer] at [phone] and ask for the Pain Service doctor food and nutrition services assistant. [facility] PATIENT EDUCATION POST-PROCEDURE INFORMATION SHEET After this procedure you may have: ??? Dizziness ??? Numbness in one or both legs ??? Weakness in one or both legs These symptoms generally wear off in 6-8 hours, but are almost always gone by the next morning. ??? A small amount of bruising, bleeding, swelling at the injection site(s). It is recommended you apply ice packs for 20 minutes every 1-2 hours for the first 24 hours. ??? After 24 hours, if you still have discomfort, you may use a heating pad. Do not sit or lie on top of heating pad. Do not leave ice or heat on for more than 20 minutes at a time. ??? Stand up slowly from a sitting or lying position today to prevent feeling dizzy or lightheaded. ??? Limit activity today, which includes no driving. You may resume your normal activity and driving the next day after your procedure. ??? You may take a shower. No tub bath, swimming pool, hot tub, etc., for 24 hours. If you have any questions or problems, please call the Pain Management Center at For emergencies after 4:00 p.m., you should call the hospital loop drier operator at and ask tospeak with the Pain Service doctor food and nutrition services assistant. MANAGER documented in this encounter Medications at Time [...] by mouth 2 (two) times a day 11/21/202 3 lisinopril-hydroC HLOROthiazide (ZESTORETIC) 10-12.5 mg per tablet 10/02/1969 2 rosuvastatin (CRESTOR) 40 mg tablet Take 1 tablet (40 mg total) by mouth daily 90 tablet 3 10/22/2020 4 UNABLE TO FIND prevegen daily 3 documented as of this encounter Discharge Disposition Disposition Code Departure Means Destination Discharge to home or self care documented in this encounter Progress Notes * Eddi Shafer MD - 09/13/2021 7:45 AM CST Patient Name: Ilsa Alvares : 1935 Today's Date: 09/13/2021 PCP: Bao Pierre MD Chief Complaint Patient presents with ??? Back Pain starts in lower back and radiates to bilateral buttocks Pain Management History Mr. ILSA ALVARES??37??was initially seen in the Pain Ctr., September 09 [address] Florentin Alva for left lower back pain. ?? -??medical illness??-??hypertension, hypercholesterolemia,??CAD??with stent December 2019, BPH ?? Mr Alvares has long of history of lower back pain. It is getting worse recently. ?? The pain is in the left lower back without radiation. The pain is rated 6 out 10. It is throbbing aching in nature. The pain happens only when he bend slightly forward, like making bed, or making dishes. Sitting down immediately relief the pain. ?? He had right shoulder rotator cuff repair 08/[address] Sher. ?? 07/22/15 - L3-4, L4-5 posterior spinal decompression with Dr. Chance ? L-spine radiographs [facility] 01/09/18 - Prior lumbar laminectomy L3, L4 - lumbar spondylosis - rotary dextroscoliosis lumbar spine; facet arthropathy mid and lower lumbar spine severe R>L - lumbar disc degeneration - severe T12-L5 ?Left Hip radiographs [facility] 01/09/18 : - hip osteoarthritis, left - moderate, progressive compared with prior hip radiograph 09/20/11 ?? Lumbar spine MRI 02/13/19 -??prior lumbar laminectomy L3, L4, L5 -??lumbar spondylosis??-??mild dextroscoliosis apex L3; slight retrolisthesis L2-3 -??lumbar disc degeneration moderate, diffuse L1-2, L2-3, L3-4, L4-5 -??lumbar spinal canal stenosis??-??severe??L1-2 with effacement of spinal fluid;??moderate??L2-3, there is no spinal canal stenosis L3-4, L4-5, L5-S1 ?? Pelvis, left hip radiographs [facility] 06/24/19 -??left total hip arthroplasty in near-anatomic alignment -??hip osteoarthritis, right??-??mild ? 02/22/2021??-??worsened??low back pain ? Worst Pain:?Low back Pain intensity: worst pain in last week -??10?/10; least pain - 0; current pain -??8??/10 Radiation of pain:?Regional Associated signs/symptoms:? -??minimal pain with sitting -??severe exacerbation of pain with stand, walk ----??with standing, the severity of pain ???shuts (him) down ---- +??grocery cart,??denies symptoms of neurogenic claudication, walking is limited by severity of back pain ----?immediate?relief of back pain with sitting ?? He had cardiac arrhythmia that was newly identified in recovery area in Pain Center at last appointment -??that lead to cardiac evaluation and eventually cardiac catheterization which required stent December 2019 ?? Cardiology evaluation ??Jose -??10/22/20 note reviewed --- Dr. Garcia??has subsequently retired, cardiology follow-up is planned -??generally doing well since cardiac catheterization/stent, without symptomatic heart disease ? Lumbar spine radiographs [facility] 05/31/21 -??lumbar spondylosis??-??mild rotary dextroscoliosis apex L3; facet arthropathy diffuse lower lumbar levels -??lumbar disc degeneration??-??severe L3-4, L4-5, L5-S1 -??hip osteoarthritis, right??-??moderate, prior left??CHRISTIANO ?Lumbar spine MRI [facility] 06/19/21 -??prior lumbar spine surgery??-??a posterior lumbar laminectomy L3-4, L4-5 -??lumbar spondylosis??-??mild stepwise retrolisthesis L1-2, L2-3, L3-4, L4-5, L5-S1; lumbar spondylosis??-??facet arthropathy??B??L1-2, B??L2-3,??B??L3-4,??B??L4-5,??B??L5-S1;??foraminal narrowing se bart??L??L3-4,??B??L4-5,??B??L5-S1 -??lumbar spinal canal stenosis??-??moderate L2-3 -??displaced lumbar disc??-??diffuse disc bulge all lumbar levels ? Pain Management Summary - Other Chronic pain ?? - hip pain, left - hip osteoarthritis, left - moderate, progressive compared with prior hip radiograph 09/20/11 - ??Left Hip radiographs [facility] 01/09/18 - Lumbago??with left sciatica - Post lumbar laminectomy syndrome - Dr. Chance L3-4, L4-5 laminectomy/decompression 07/22/17 -??lumbar spinal canal stenosis??-??severe??L1-2 with effacement of spinal fluid;??moderate??L2-3, there is no spinal canal stenosis L3-4, L4-5, L5-S1??-??Lumbar spine MRI 02/13/19 -??lumbar spondylosis??-??mild dextroscoliosis apex L3; slight retrolisthesis L2-3 -??lumbar disc degeneration moderate, diffuse L1-2, L2-3, L3-4, L4-5 -??medical illness??-??hypertension, hypercholesterolemia,??CAD??with stent December 2019 (clopidogrel),??BPH ---- appears to be a candidate for Vertiflex at L1-2, L2-3 if needed ?? Pain Procedure Summary: 11/07/12 ??Lumbar transforaminal epidural steroid injections - B L1-2, B L2-3 - glycopyrrolate given for transient vasovagal reaction 01/12/15 ??Lumbar transforaminal epidural steroid injections - B L1-2, B L2-3 - glycopyrrolate given intravenously prior to procedure given prior vagal reaction 02/11/15 ??Lumbar transforaminal epidural steroid injections - B L1-2, B L2-3 - glycopyrrolate given intravenously prior to procedure given prior vagal reaction 01/16/18 Hip joint injection - left?? 08/05/19 Lumbar medial branch blocks bilateral L3, L4, L5, S1??-??essentially complete temporary relief of pain 05/05/21?? Lumbar medial branch blocks to temporarily denervate facet joints??B??L3-4,??B??L5-S1??-??excellent temporary pain relief??> 80% 09/13/21 lumbar medial branch blocks to temporarily denervate facet joints B L3- 4, B L5-S1 - excellent temporary relief pain > 80% ?? Today's Visit 09/13/2021 Ilsa Alvares returns to the Pain Management Center for follow-up regarding ongoing back pain Pain Score: 8 (with activity, 0 at rest and this morning) Pain Location: Back (Lumbar) Pain Orientation: Bilateral Pain Descriptors: Aching,Radiating Pain Radiating Towards: starts in lower back and radiates to bilateral buttocks Pain Frequency: Intermittent Worst Pain: Low back pain Pain intensity: worst pain in last week - 8 /10; least pain - 0; current pain - 0 /10 Radiation of pain: bilateral buttocks Associated signs/symptoms: Throbbing pain only after walking some distance (I.e. backyard to front door) - pain markedly worsened with stand, walk --- walking is limited by low back and bilateral buttock pain --- pain relieved with sit/rest for 5-10 minutes Injection therapies: Excellent temporary relief pain following prior lumbar medial branch blocks Exercise programs: None; pretty agile Psychological /Behavioral therapy: None Current Analgesics: None - rest typically provides relief Radiographic imaging personally reviewed today: Lumbar spine MRI [facility] 06/19/21 - images reviewed in detail, results as above ---- appears to be a candidate for Vertiflex at L1-2, L2-3 if needed ?? Past Medical Histoy Allergies Allergen Reactions ??? [...] Socioeconomic History ??? Marital status: Spouse name: None ??? Number of children: None ??? Years of education: None ??? Highest education level: None Occupational History ??? None Tobacco Use ??? Smoking status: Former Smoker Types: Pipe Start date: 1965 Quit date: 10/02/2013 Years since quittin.9 ??? Smokeless tobacco: Never Used ??? Tobacco comment: 5-6 times a day Vaping Use ??? Vaping Use: Never used Substance and Sexual Activity ??? Alcohol use: No ??? Drug use: Never Comment: denies CBD ??? Sexual activity: Defer Other Topics Concern ??? None Social History Narrative Smoking A Pipe : [...] Not on file Review of Systems Constitutional: Positive for activity change. Gastrointestinal: Positive for constipation. Musculoskeletal: Positive for back pain and gait problem (Increased low back pain). Psychiatric/Behavioral: Negative for dysphoric mood and sleep disturbance. Physical Exam Vitals: 09/13/21 0802 BP: 147/63 Pulse: 73 Resp: 20 Temp: 97.5 ??F (36.4 ??C) SpO2: 98% Weight: 80.3 kg (177 lb) Height: 172.7 cm (5' 8 ) Body mass index is 26.91 kg/m??. CONSTITUTIONAL: General appearance normal, nutrition normal, no deformities, good grooming. EARS / NOSE / MOUTH / THROAT: Hearing assessment normal. RESPIRATORY: Normal effort. MUSCULOSKELETAL EXAMINATION: Gait normal, PSYCHIATRIC: Oriented X3, memory intact, and alert. Normal insight and judgement. Normal mood and affect. Speech normal. SKIN: Normal Assessment 1. Spondylosis of lumbar region without myelopathy or radiculopathy 2. Bilateral low back pain without sciatica, unspecified chronicity 3. Spinal stenosis of lumbar region with neurogenic claudication Discussion: Analgesics Reviewed non opioid, adjuvant analgesics. Injection therapies LMBB as part of consideration for lumbar RF--- Discussed the role of lumbar medial branch blocks, which could be carried out as part of consideration for radiofrequency ablation. If lumbar medial branch blocks provided excellent pain relief, then RF would be expected to have 50-60% chance of providing good excellent pain relief lasting at least for 6 months. If benefit from RF, but subsequent return of pain, could consider repeat RF if needed. Physical therapy - detailed discussion regarding the importance of consistent use of optimized therapeutic and conditioning exercise programs. Orders: Orders Placed This Encounter ??? DISCONTD: lidocaine PF (XYLOCAINE) 10 mg/mL (1 %) preservative free injection ??? DISCONTD: bupivacaine-EPINEPHrine (MARCAINE with EPI) 0.5 %-1:200,000 preservative free injection 09/13/2021 Plan: Analgesics - - continue current analgesics Interventions - Lumbar medial branch blocks as above done today Imaging - reviewed as indicated above Physical Therapy - encourage independent use of exercise programs Follow-up - Return to Pain Center - as needed - Call as needed ADD: - Today's note documents my personal evaluation of this patient. ??In addition, I have reviewed and confirmed with the patient and nurse the supportive information documented in today's scanned Patient Health Questionnaire and Office Note. - This patient was initially evaluated by the pain denial management representative Melia Soni MD. I reviewed that evaluation with the trainee and also evaluated the patient myself. I agree with the evaluation and recommendations noted above including edits which I have made to the note above. Eddi Shafer M.D. On 09/13/2021, time spent on evaluation includes: 4 minutes spent prior to visit in chart review and preparation, review of medical records 18 minutes spent in [id number] time with patient during the evaluation - minutes spent after the visit including ordering prescription(s), ordering diagnostic test(s), and chart completion after documentation 22 TOTAL time spent on evaluation on 09/13/2021 This time does not include time spent in any separately reportable services. MANAGER documented in this encounter Miscellaneous Notes * Op Note - Eddi Shafer MD - 09/13/2021 7:45 AM CST PROCEDURE NOTE: Name: Ilsa Alvares : 1935 Date of Procedure: 09/13/2021 Attending Surgeon: Eddi Shafer M.D. Concession Stand Attendant: Melia Soni MD NAME OF PROCEDURE: Local Anesthetic Medial Branch Nerve Blocks to Facet Joints at Bilateral L3-4, Bilateral L5-S1. PREPROCEDURAL DIAGNOSES: - Lumbar spondylosis without myelopathy or radiculopathy - Lumbago, chronic POSTPROCEDURAL DIAGNOSES: Same INDICATION FOR PROCEDURE: Marked temporary benefit from prior local anesthetic medial branch blocks, now with recurrent severe lower back pain with lumbar spondylosis PROCEDURE: After reviewing the procedure with the patient, informed consent to proceed with the injection was obtained. A procedure permit was signed. The patient was placed on the fluoroscopy table in the prone position. Fluoroscopy was used to markthe needle entry points for medial branch nerve blocks. The lumbar area was prepped with chlorhexidine solution and draped with sterile towels. Sterile technique was used throughout. The needle entrypoint was infiltrated with 1% lidocaine. 22-gauge spinal needle was advanced to the periosteum at the junction of the superior articular process, pedicle, and transverse process. This was visualized in an oblique view. With the needle in the correct position at each level, 0.5 ml. of 0.5% bupivacaine with 1:200,000 epinephrine was injected. In this manner, the procedure was performed at the transverse processes at L3, L4, L5, and the top of the sacrum, bilaterally. In this manner, local anesthetic injections were carried out to block medial branch nerve innervation to facet joints bilateral L3-4, bilateral L5-S1 DISPOSITION: Patient discharged home in stable condition. Operative Findings: The procedure was completed as planned. Complications: There were no apparent complication. Estimated Blood Loss: None Intraoperative Fluids: None Specimens: None I was present throughout the procedure from the time-out, safety check and initial injection of local anesthetic through completion of the proceudre. Eddi Shafer M.D. MANAGER documented in this encounter Plan of Treatment Not on file documented as of this encounter Goals Goal Patient Goal Type Associated Problems Recent Progress Patient-Stated? Author CCM Chronic Pain Care Plan Chronic Care Management Worsening( 8:02 AM TAX MANAGER) Chika Tracy RN Note: Problem: Chronic Pain Goals: 1. Minimize further functional decline 2. Maximize quality of life 3. Control pain Strategies: - Activity/exercise program recommendation - Conservative stepwise pain medicine strategy with multi-disciplinary approach - Recommend healthy lifestyle strategies and compensatory methods as needed documented as of this encounter Visit Diagnoses Diagnosis Spondylosis of lumbar region without myelopathy or radiculopathy- Primary Bilateral low back pain without sciatica, unspecified chronicity Spinal stenosis of lumbar region with neurogenic claudication documented in this encounter Administered Medications Inactive Administered Medications - up to 3 most recent administrations Medication Order MAR Action Action Date Dose Rate Site bupivacaine-EPINEPHrine (MARCAINE with EPI) 0.5 %-1:200,000 preservative free injection As needed, Starting on Mon09/13/21 at 0922, Intra-Op Given 09/13/2021 9:22 AM TAX MANAGER 6 mL lidocaine PF (XYLOCAINE) 10 mg/mL (1 %) preservative free injection As needed, Starting on Mon09/13/21 at 0922, Intra-Op Given 09/13/2021 9:22 AM TAX MANAGER 20 mL documented in this encounter Orders Discharge Count Last Ordered Date First Orde red Date DISCHARGE PATIENT 1 10/01/2021 documented in this encounter Care Teams Clinical Program Consultant Relationship Specialty Start Date End Date Bao Pierre MD [address] [address] PCP - General 12/22/16 documented as of this encounter
--- OUTSIDE RECORDS SUMMARY | 2024-10-01 08:42 | XMS_ITS | Encounter Summary ---
Author Organization [facility] Healthcare Address [address] [place] [address] Care Team Providers Care Admissions Assistant Name Role Phone Bao Pierre MD Primary Care Provider [phone] Reason for Visit * Reason Onset Date Comments Pre-Surgical Call 10/15/2021 Encounter Details Date Type Department Care Team (Late st Contact Info) Description 10/15/2021 Telephone [facility] [place] [facility] [address] [facility] [address] [place], [place] [id number] Eddi Shafer MD [address] [facility] [address] [facility] [phone] [place], [place] [id number] Pre-Surgical Call Social History Tobacco Use Types Packs/Day Years [...] on file Legal Sex Male 9:03 PM 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 Author CCM Chronic Pain Care Plan Chronic Care Management Worsening( 8:02 AM ALUMINUM BOAT INSPECTOR) No Chika Watters, RN Note: Problem: Chronic Pain Goals: 1. Minimize further functional decline 2. Maximize quality of life 3. Control pain Strategies: - Activity/exercise program recommendation - Conservative stepwise pain medicine strategy with multi-disciplinary approach - Recommend healthy lifestyle strategies and compensatory methods as needed documented as of this encounter Visit Diagnoses Not on filedocumented in this encounter Care Teams Admissions Assistant Relationship Specialty Start Date End Date Bao Pierre MD [address] [facility] [address] [place] [address] PCP - General 12/22/16 documented as of this encounter
--- OUTSIDE RECORDS SUMMARY | 2024-10-01 08:42 | XMS_ITS | Encounter Summary ---
Author Organization [facility] Healthcare Address [address] [place] [address] Care Team Providers Care Stress Test Technician Name Role Phone Bao Pierre MD Primary Care Provider [phone] Reason for Referral * Diagnostic Imaging (Routine) - Closed Specialty Diagnoses / Procedures Referred By Amber flores Referred To Contact Diagnoses History of left hip replacement Procedures XR Hip Left 4 or More Views Jamie Keys MD [address] [employer] [address] [place] [address] Phone: tel: [place]: [facility] [address] [place] [phone] Phone: tel: Referral ID Status Reason Start Date Expiration Date Visits Re quested Visits Authorized [id number] Closed 08/04/2022 09/03/2023 1 1 Y DRIER OPERATOR Reason for Visit * Diagnostic Imaging (Routine) - Closed Specialty Diagnoses / Procedures Referred By Amber flores Referred To Contact Diagnoses History of left hip replacement Procedures XR Hip Left 4 or More Views Jamie Keys MD [address] [employer] [address] [place] [address] Phone: tel: fax: [facility] [address] [place] [phone] Phone: tel: Referral ID Status Reason Start Date Expiration Date Visits Re quested Visits Authorized [id number] Closed 08/04/2022 09/03/2023 1 1 Encounter Details Date Type Department Care Team (Latest Contact Info) Description 08/11/2022 10:45 AM SPRAY DRIER OPERATOR - 08/11/2022 11:59 PM SPRAY DRIER OPERATOR Hospital Encounter [id number] [address] [facility] [address] [place] [address] History of left hip replacement Discharge Disposition: Discharge to home or self [...] on file Legal Sex Male 9:03 PM SPRAY DRIER OPERATOR Gender Identity Not on file Sexual Orientation Straight 10/15/2019 10 :34 PM SPRAY DRIER OPERATOR documented as of this encounter Medications at [...] (75 mg total) by mouth daily 3 finasteride (PROSCAR) 5 mg tabletIndications :benign [...] Plan Chronic Care Management Worsening( 8:02 AM SPRAY DRIER OPERATOR) No Chika Watters, RN Note: Problem: Chronic Pain Goals: 1. Minimize further functional decline 2. Maximize quality of life 3. Control pain Strategies: - Activity/exercise program recommendation - Conservative stepwise pain medicine strategy with multi-disciplinary approach - Recommend healthy lifestyle strategies and compensatory methods as needed documented as of this encounter Procedures Procedure Name Priority Date/Time Associated Diagnosis Comments XR HIP LEFT 4 OR MORE VIEWS Schedule Routine, Read Routine (OP Routine) 08/11/2022 11:54 AM SPRAY DRIER OPERATOR History of left hip replacement documented in this encounter Results * XR Hip Left 4 or More Views (08/11/2022 11:54 AM SPRAY DRIER OPERATOR) Anatomical Region Laterality Modality Lower Extremities, Hip, Pelvis Left C omputed Radiography 08/11/2022 11:5 7 AM SPRAY DRIER OPERATOR Impressions 08/11/2022 11:57 AM SPRAY DRIER OPERATOR 1. 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
--- OUTSIDE RECORDS SUMMARY | 2024-10-01 08:42 | XMS_ITS | Encounter Summary ---
Author Organization [facility] Address [address] [place] [address] Phone Care Team Providers Care Civil Draftsman Name Role Phone Bao Pierre MD Primary Care Provider [phone] Reason for Visit * Reason Comments Pain Encounter Details Date Type Department Care Team (Late st Contact Info) Description 10/11/2022 3:40 PM MILK TANKER DRIVER Office Visit [facility] Orthopaedic Surgery [address] [facility] Medical Office Building [address] [place] [address] Jamie Keys MD [address] [facility] [place] [address] Trochanteric bursitis of left hip (Primary Dx) Social History Tobacco Use Types [...] on file Legal Sex Male 9:03 PM MILK TANKER DRIVER Gender Identity Not on file Sexual Orientation Straight 10/15/2019 10 :34 PM MILK TANKER DRIVER documented as of this encounter Progress Notes * Jamie Keys MD - 10/11/2022 3:40 PM CST Images from the original note were not included. ESTABLISHED PATIENT VISIT CHIEF COMPLAINT: Painful left total hip arthroplasty HISTORY OF PRESENT ILLNESS: Frandy Alvares is a 87 y.o. year old male with left hip pain. He had a left CHRISTIANO [place] [address] Laing. We saw him back in August. The patient does not recall seeing us comes in again today. His biggest issue is pain in the lateral aspect of the hip. It is very intermittent. He just wants to make sure nothing is wrong again. PAST MEDICAL HISTORY: has a past medical [...] tibialis anterior, and gastrocnemius soleus complex. RADIOGRAPHS: August 2022 AP pelvis and 3 radiographic [...] patient regarding the condition and treatment options. We educated the patient as well as white believe is his son in the office today that he has mostly trochanteric bursitis. I recommended again topical Voltaren gel. He should use that 4 times a day. I also gave him a home exercise program. They expressed understanding. They will follow-up as needed. Jamie Keys Jailer/Training Officer Adult Hip and Knee Reconstruction Department of Orthopedic Surgery [facility] in [place] TANKER DRIVER documented in this encounter Plan of Treatment Not on file documented as of this encounter Goals Goal Patient Goal Type Associated Problems Recent Progress Patient-Stated? Author CCM Chronic Pain Care Plan Chronic Care Management Worsening( 8:02 AM MILK TANKER DRIVER) Chika Tracy, RN Note: Problem: Chronic Pain Goals: 1. Minimize further functional decline 2. Maximize quality of life 3. Control pain Strategies: - Activity/exercise program recommendation - Conservative stepwise pain medicine strategy with multi-disciplinary approach - Recommend healthy lifestyle strategies and compensatory methods as needed documented as of this encounter Visit Diagnoses Diagnosis Trochanteric bursitis of left hip- Primary documented in this encounter Care Teams Civil Draftsman Relationship Specialty Start Date End Date Bao Pierre MD [address] [facility] [address] [place] [address] PCP - General 12/22/16 documented as of this encounter
--- OUTSIDE RECORDS SUMMARY | 2024-10-01 08:42 | XMS_ITS | Encounter Summary ---
Author Organization [facility] Healthcare Address [address] [place] [address] Care Team Providers Care Pulpwood Buyer Name Role Phone Bao Pierre MD Primary Care Provider [phone] Reason for Visit * Reason Onset Date Comments Test Results 08/16/2021 Encounter Details Date Type Department Care Team (Late st Contact Info) Description 08/16/2021 Telephone [facility] [place] [facility] [address] [facility] Advanced Medicine [address] [place], [place] [id number] Eddi Shafer MD [address] [facility] [address] [facility] [phone] [place], [place] [id number] Test Results Social History Tobacco Use Types Packs/Day Years [...] on file Legal Sex Male 9:03 PM SHOP COORDINATOR Gender Identity Not on file Sexual Orientation Straight 10/15/2019 10 :34 PM SHOP COORDINATOR documented as of this encounter Miscellaneous Notes * Telephone Encounter - Kelsie Callejas - 09/30/2021 10:49 AM CST DONE COORDINATOR documented in this encounter Plan of Treatment Not on file documented as of this encounter Goals Goal Patient Goal Type Associated Problems Recent Progress Patient-Stated? Author CCM Chronic Pain Care Plan Chronic Care Management Worsening( 8:02 AM SHOP COORDINATOR) No Chika Watters, RN Note: Problem: Chronic Pain Goals: 1. Minimize further functional decline 2. Maximize quality of life 3. Control pain Strategies: - Activity/exercise program recommendation - Conservative stepwise pain medicine strategy with multi-disciplinary approach - Recommend healthy lifestyle strategies and compensatory methods as needed documented as of this encounter Visit Diagnoses Not on filedocumented in this encounter Care Teams Pulpwood Buyer Relationship Specialty Start Date End Date Bao Pierre MD [address] [facility] [address] [place] [address] PCP - General 12/22/16 documented as of this encounter
--- OUTSIDE RECORDS SUMMARY | 2024-10-01 08:42 | XMS_ITS | Encounter Summary ---
Author Organization [facility] Address [address] [place] [address] Care Team Providers Care Car Rental Clerk Name Role Phone Bao Pirere MD Primary Care Provider [phone] Encounter Details Date Type Department Care Team (Late st Contact Info) Description 09/08/2021 [facility] [address] [facility] [address] [place] [address] Bao Pierre MD [address] [facility] [address] [place] [address] Social History Tobacco Use Types [...] on file Legal Sex Male 9:03 PM RABBLE FURNACE TENDER Gender Identity Not on file Sexual Orientation Straight 10/15/2019 10 :34 PM RABBLE FURNACE TENDER documented as of this encounter Plan of Treatment Not on file documented as of this encounter Goals Goal Patient Goal Type Associated Problems Recent Progress Patient-Stated? Author CCM Chronic Pain Care Plan Chronic Care Management Worsening( 8:02 AM RABBLE FURNACE TENDER) Chika Tarcy, RN Note: Problem: Chronic Pain Goals: 1. Minimize further functional decline 2. Maximize quality of life 3. Control pain Strategies: - Activity/exercise program recommendation - Conservative stepwise pain medicine strategy with multi-disciplinary approach - Recommend healthy lifestyle strategies and compensatory methods as needed documented as of this encounter Procedures Procedure Name Priority Date/Time Associated Diagnosis Comments SCAN - RADIOLOGY/IMAGING 09/08/2021 4:36 PM RABBLE FURNACE TENDER documented in this encounter Results * SCAN - RADIOLOGY/IMAGING (09/08/2021 4:36 PM RABBLE FURNACE TENDER) Anatomical Region Laterality Modality Other Bao Pierre MD Final Result documented in this encounter Visit Diagnoses Not on filedocumented in this encounter Care Teams Car Rental Clerk Relationship Specialty Start Date End Date Bao Pierre MD [address] [place] [address] PCP - General 12/22/16 documented as of this encounter
--- OUTSIDE RECORDS SUMMARY | 2024-10-01 08:42 | XMS_ITS | Encounter Summary ---
Author Organization [facility] Healthcare Address [address] [place] [address] Care Team Providers Care Concrete Mason Name Role Phone Bao Pierre MD Primary Care Provider [phone] Reason for Referral * Diagnostic Imaging (Routine) - Closed Specialty Diagnoses / Procedures Referred By Contac t Referred To Contact Diagnoses Pain Procedures FL Fluoroscopy < 1 Hour (Statistical Only) Eddi Shafer MD [address] [facility] [address] [facility] [phone] [place] [address] Phone: tel: fax: [address] [phone] Referral ID Status Reason Start Date Expiration Date Visits Re quested Visits Authorized [id number] Closed 09/10/2021 10/10/2022 1 1 LE MECHANIC Reason for Visit * Diagnostic Imaging (Routine) - Closed Specialty Diagnoses / Procedures Referred By Contac t Referred To Contact Diagnoses Pain Procedures FL Fluoroscopy < 1 Hour (Statistical Only) Eddi Shafer MD [address] [facility] [address] [facility] [phone] [place] [address] Phone: tel: fax: [address] [phone] Referral ID Status Reason Start Date Expiration Date Visits Re quested Visits Authorized [id number] Closed 09/10/2021 10/10/2022 1 1 Encounter Details Date Type Department Care Team (Latest Contact Info) Description 09/13/2021 7:26 AM MOBILE MECHANIC - 09/13/2021 7:44 AM MOBILE MECHANIC Hospital Encounter [facility] [address] [place] [address] Pain Discharge Disposition: Discharge to home or self [...] on file Legal Sex Male 9:03 PM MOBILE MECHANIC Gender Identity Not on file Sexual Orientation Straight 10/15/2019 10 :34 PM MOBILE MECHANIC documented as of this encounter Medications at [...] Plan Chronic Care Management Worsening( 8:02 AM MOBILE MECHANIC) No Chika Watters, RN Note: Problem: Chronic Pain Goals: 1. Minimize further functional decline 2. Maximize quality of life 3. Control pain Strategies: - Activity/exercise program recommendation - Conservative stepwise pain medicine strategy with multi-disciplinary approach - Recommend healthy lifestyle strategies and compensatory methods as needed documented as of this encounter Procedures Procedure Name Priority Date/Time Associated Diagnosis Comments FL FLUOROSCOPY < 1 HOUR (STATISTICAL ONLY) Schedule Routine, Read Routine (OP Routine) 09/13/2021 9:20 AM MOBILE MECHANIC Pain documented in this encounter Results * FL Fluoroscopy < 1 Hour (Statistical Only) (09/13/2021 9:20 AM MOBILE MECHANIC) Narrative [facility] - 09/13/2021 9:25 AM MOBILE MECHANIC The images from this study are not interpreted by Radiology. ??Please refer to the physician's procedure / OR operative note. us Eddi Shafer MD IMG FLUOROSCOPY PROCEDURES Fi nal Result [facility] documented in this encounter Visit Diagnoses Diagnosis Pain Generalized pain documented in this encounter Care Teams Concrete Mason Relationship Specialty Start Date End Date Bao Pierre MD [address] [facility] [address] [place] [address] PCP - General 12/22/16 documented as of this encounter
--- OUTSIDE RECORDS SUMMARY | 2024-10-01 08:42 | XMS_ITS | Encounter Summary ---
Author Organization [facility] Address [address] [place] [address] Care Team Providers Care Merchandise Shopper Name Role Phone Bao Pierre MD Primary Care Provider [phone] Reason for Visit * Reason Comments Anxiety Confusion Encounter Details Date Type Department Care Team (Late st Contact Info) Description 02/06/2023 9:00 AM CDT Office Visit [facility] [address] [facility] [address] [place] [address] Bao Pierre MD [address] [facility] [address] [place] [address] Urinary tract infection without hematuria, site unspecified (Primary Dx); Primary osteoarthritis of left hip; Memory loss Social History Tobacco Use Types Packs/Day Years [...] on file Legal Sex Male 9:03 PM FINISHER MAP AND CHART Gender Identity Not on file Sexual Orientation Straight 10/15/2019 10 :34 PM FINISHER MAP AND CHART documented as of this encounter Last Filed Vital Signs Vital Sign Reading Time Taken Comments Blood Pressure 144/82 02/06/2023 8:48 AM CDT Pulse 86 02/06/2023 8:48 AM CDT Temperature - - Respiratory Rate - - Oxygen Saturation - - Inhaled Oxygen Concentration - - Weight 83.9 kg (185 lb) 02/06/2023 8:48 AM CDT Height 177.8 cm (5' 10 ) 02/06/2023 8:48 AM CDT Body Mass Index 26.54 02/06/2023 8:48 AM CDT documented in this encounter Ordered Prescriptions Prescription Sig Dispense Quantity Refills Last Filled Start Date End Date donepeziL (ARICEPT) 5 mg tablet Take 1 tablet (5 mg total) by mouth nightly 90 tablet 4 02/06/2023 3 documented in this encounter Progress Notes * Bao Pierre MD - 02/06/2023 9:00 AM CDT Images from the original note were not included. Subjective/Objective Patient ID: Frandy Alvares is a 87 y.o. male. Chief Complaint Anxiety and Confusion Anxiety Here for evaluation of his medical problems. [...] POSTERIOR LAMINECTOMY / DECOMPRESSION LUMBAR SPINE 2015 [place] CHOLECYSTECTOMY 2018 ROTATOR CUFF REPAIR SHOULDER SURGERY [...] directed clopidogreL (PLAVIX) 75 mg tablet Take 75 [...] TO FIND prevegen daily Review of Systems Patient Vital Signs for the past 24 hrs: BP Pulse Height Weight 02/06/23 0848 144/82 86 177.8 cm (5' 10 ) 83.9 kg (185 lb) Wt Readings from Last 3 Encounters: 02/06/23 83.9 kg (185 lb) 04/14/22 86.2 kg (190 lb) 03/25/22 88 kg (194 lb) Physical Exam Constitutional: Appearance: Normal appearance. [...] Diagnoses and all orders for this visit: Urinary tract infection without hematuria, site unspecified (N39.0) (Primary) Comments: ua negative. Orders: - POCT urinalysis dipstick Primary osteoarthritis of left hip (M16.12) Memory loss (R41.3) Comments: add donepezil Labs No results found for: HGBA1C Lab [...] UROBILINOGEN 0.2 02/06/2023 POCURNITRITE Negative 02/06/2023 LOTNUMBER [id number] 02/06/2023 Bao Pierre MD documented in this encounter Plan of Treatment Not on file documented as of this encounter Goals Goal Patient Goal Type Associated Problems Recent Progress Patient-Stated? Author CCM Chronic Pain Care Plan Chronic Care Management Worsening( 8:02 AM FINISHER MAP AND CHART) Chika Tracy, RN Note: Problem: Chronic Pain Goals: 1. Minimize further functional decline 2. Maximize quality of life 3. Control pain Strategies: - Activity/exercise program recommendation - Conservative stepwise pain medicine strategy with multi-disciplinary approach - Recommend healthy lifestyle strategies and compensatory methods as needed documented as of this encounter Procedures Procedure Name Priority Date/Time Associated Diagnosis Comments POCT URINALYSIS DIPSTICK Routine 02/06/2023 9:12 AM CDT Urinary tract infection without hematuria, site unspecified documented in this encounter Results * POCT urinalysis dipstick (02/06/2023 9:12 AM CDT) Color, Urine, POC Dark Yellow Clarity, ur, POC Clear Clear Glucose, ur, POC Negative Negative MG/DL Bilirubin, ur, POC Negative Negative, Small, Moderate, Large Ketones, ur, POC Negative Negative Specific [place], POC 1.025 1.003 - 1.030 Blood, ur, POC Negative Negative pH, ur, POC 5.0 5.0 - 8.0 Protein, ur, POC Negative Negative Urobilinogen, urine, POC 0.2 0.2 - 1.0 mg/dL Nitrite, ur, POC Negative Negative Leukocytes, ur, POC Negative Negative Lot Number [id number] Urine 02/06/2023 9:12 AM CDT Bao Pierre MD POINT OF CARE TEST ORDERABLES Final Result documented in this encounter Visit Diagnoses Diagnosis Urinary tract infection without hematuria, site unspecified- Primary Primary osteoarthritis of left hip Memory loss documented in this encounter Care Teams Merchandise Shopper Relationship Specialty Start Date End Date Bao Pierre MD [address] [facility] [address] [place] [address] PCP - General 12/22/16 documented as of this encounter
--- OUTSIDE RECORDS SUMMARY | 2024-10-01 08:42 | XMS_ITS | Encounter Summary ---
Author Organization [facility] Address [address] [place] [address] Care Team Providers Care Reception Manager Name Role Phone Bao Pierre MD Primary Care Provider [phone] Encounter Details Date Type Department Care Team (Late st Contact Info) Description 03/08/2022 [facility] [address] [facility] [address] [place] [address] Ariadne Vail, CHALK MACHINE OPERATOR [address] [facility] [address] [place], [place] [id number] Social History Tobacco Use Types Packs/Day Years [...] on file Legal Sex Male 9:03 PM HOSPITAL RECRUITER Gender Identity Not on file Sexual Orientation Straight 10/15/2019 10 :34 PM HOSPITAL RECRUITER documented as of this encounter Miscellaneous Notes * Telephone Encounter - Stephanie Zee MA - 03/08/2022 3:44 PM CDT Pt ntfd by phone * Telephone Encounter - Stephanie Zee MA - 03/08/2022 3:44 PM CDT ----- Message from Ariadne Vail NP sent at 03/08/2022 2:04 PM CDT ----- Xray showed mild arthritis. Proceed as we discussed and let us know how it is going . documented in this encounter Plan of Treatment Not on file documented as of this encounter Goals Goal Patient Goal Type Associated Problems Recent Progress Patient-Stated? Author CCM Chronic Pain Care Plan Chronic Care Management Worsening( 8:02 AM HOSPITAL RECRUITER) Chika Tracy, NIKKIE Note: Problem: Chronic Pain Goals: 1. Minimize further functional decline 2. Maximize quality of life 3. Control pain Strategies: - Activity/exercise program recommendation - Conservative stepwise pain medicine strategy with multi-disciplinary approach - Recommend healthy lifestyle strategies and compensatory methods as needed documented as of this encounter Visit Diagnoses Not on filedocumented in this encounter Care Teams Reception Manager Relationship Specialty Start Date End Date Bao Pierre MD [address] [address] PCP - General 12/22/16 documented as of this encounter
--- OUTSIDE RECORDS SUMMARY | 2024-10-01 08:42 | XMS_ITS | Encounter Summary ---
Author Organization [facility] [employer] of [facility] Address [address] [place] [address] Phone Care Team Providers Care Director Acute Name Role Phone Bao Pierre MD Primary Care Provider [phone] Reason for Referral * Procedure (Routine) - Closed Specialty Diagnoses / Procedures Referred By Contac t Referred To Contact Diagnoses Tear of left rotator cuff, unspecified tear extent, unspecified whether traumatic Procedures Large Joint Injection: L subacromial bursa Flavio Fernandez MD [address] [place] [address] Phone: tel: fax: [facility] (All Locations) Referral ID Status Reason Start Date Expiration Date Visits Re quested Visits Authorized [id number] Closed 04/14/2022 05/14/2023 1 1 Reason for Visit * Reason Comments Pain Encounter Details Date Type Department Care Team (Late st Contact Info) Description 04/14/2022 3:45 PM CDT Office Visit [facility] Orthopaedic Surgery [address] [facility] [address] [address] Flavio Fernandez MD [address] [place] [address] Tear of left rotator cuff, unspecified tear [...] file Legal Sex Male 9:03 PM DIRECTOR TRIAL Gender Identity Not on file Sexual Orientation Straight 10/15/2019 10 :34 PM DIRECTOR TRIAL documented as of this encounter Last Filed Vital Signs Vital Sign Reading Time Taken Comments Blood Pressure - - Pulse - - Temperature - - Respiratory Rate - - Oxygen Saturation - - Inhaled Oxygen Concentration - - Weight 86.2 kg (190 lb) 04/14/2022 4:06 PM CDT Height 170.2 cm (5' 7 ) 04/14/2022 4:06 PM CDT Body Mass Index 29.76 04/14/2022 4:06 PM CDT documented in this encounter Progress Notes * Flavio Fernandez MD - 04/14/2022 3:45 PM CDTAssociated Order(s): Large Joint Injection: L subacromial bursa Post-Procedure Diagnose(s): Tear of left rotator cuff, unspecified tear extent, unspecified whethertraumatic NEW PATIENT VISIT CHIEF COMPLAINT Pain of the Left Shoulder HISTORY OF PRESENT ILLNESS Frandy Alvares is a 86-year-old male who presents with left shoulder pain that is significant and interfering with his quality of life. He is left-hand dominant. To 3 months ago he had onset bilateral shoulder pain. His right shoulder pain is substantially improved. He has not had any recent falls that he reports. However, his caregiver does report that he was found down in the bathroom a few months ago prior to a colonoscopy. He dismissed as this event he has significant pain over the anteriorlateral shoulder. 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 He has no past medical history of Delayed emergence from general anesthesia, Hard to intubate, Heart murmur, Malignant hyperthermia, PONV (postoperative nausea and vomiting), or Pseudocholinesterase deficiency. PAST SURGICAL HISTORY He has a past surgical history that includes Shoulder surgery (2011); pr removal gallbladder (2017); Back surgery; Mohs surgery; Posterior laminectomy / decompression lumbar spine (2015); Cardiac catheterization (2012); Cataract extraction, bilateral (~2013, 2014); Hip surgery (Left, 05/28/2018); Total hip arthroplasty; and Rotator cuff repair. INITIAL REVIEW OF MEDICATIONS He has a current medication list which includes the following prescription(s): alfuzosin er, ascorbic acid-vitamin e-biotin, aspirin, azelastine, clopidogrel, finasteride, fluticasone propionate, glucosamine-chondroitin, inulin, rosuvastatin, and UNABLE TO FIND. DRUG ALLERGIES He is allergic to epinephrine. SOCIAL HISTORY He reports that he quit smoking about 8 years ago. His smoking use included pipe. He started smoking about 56 years ago. He has never used smokeless tobacco. He reports that he does not use drugs. Patient denies consuming alcoholic drinks. FAMILY HISTORY His family history includes Arthritis in his mother and sister; Cancer in his sister; Heart diseasein his brother and mother; Hypertension in his mother; Scoliosis in his son. PHYSICAL EXAMINATION Physical examination, he has no acute distress. Awake, alert, and oriented x3. He is able answer questions appropriate participate in his exam. He can actively forward elevate to 45??. He can externally rotate to 40??. He has significant pain weakness in Keturah's position. He can be passively forward elevated to 120?? and is able to maintain this position. He has lateral impingement signs His neurovascular exam demonstrates intact axillary, median, radial, musculocutaneous nerve distributions REVIEW OF X-RAYS/STUDIES X-rays of the left shoulder were previously obtained were independently reviewed by me today/ overall, these demonstrate well-aligned glenohumeral joint maintained joint space. There is some slight proximal humeral migration and joint asymmetry with acromial humeral interval narrowing. 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 He has severepain suggestive of rotator cuff pathology left shoulder, we discussed conservative management in the form subacromial injection and physical therapy. After review of the risks and benefits of this, he wished to proceed. FOLLOW-UP 6 weeks PRN Flavio Fernandez MD Continuum Of Care Manager of Orthopedic Surgery Shoulder and Elbow Service [facility] Orthopedics [facility] Dr. Delroy Fernandez dictating using Fluency Direct. Pathology Tech variances may occur. Large Joint Injection: L subacromial bursa Performed by: Flavio Fernandez MD Authorized by: Flavio Fernandez MD Procedure Details: Location: Shoulder Site: L subacromial bursa Medications: 4 mL bupivacaine HCl 0.5 % (5 mg/mL); 80 mg triamcinolone 40 mg/mL; 4 mL lidocaine 10 mg/mL (1 %) documented in this encounter Plan of Treatment Not on file documented as of this encounter Goals Goal Patient Goal Type Associated Problems Recent Progress Patient-Stated? Author CCM Chronic Pain Care Plan Chronic Care Management Worsening( 8:02 AM DIRECTOR TRIAL) Chika Tracy, RN Note: Problem: Chronic Pain Goals: 1. Minimize further functional decline 2. Maximize quality of life 3. Control pain Strategies: - Activity/exercise program recommendation - Conservative stepwise pain medicine strategy with multi-disciplinary approach - Recommend healthy lifestyle strategies and compensatory methods as needed documented as of this encounter Procedures Procedure Name Priority Date/Time Associated Diagnosis Comments VA ARTHROCENTESIS ASPIR&/INJ MAJOR JT/BURSA W/O US Routine 04/14/2022 3:45 PM CDT Tear of left rotator cuff, unspecified tear extent, unspecified whether traumatic documented in this encounter Results * VA ARTHROCENTESIS ASPIR&/INJ MAJOR JT/BURSA W/O US (04/14/2022 3:45 PM CDT) Narrative Flavio Fernandez MD - 04/14/2022 3:45 PM CDT Flavio Fernandez MD ? 04/14/2022 ??4:53 PM Large Joint Injection: L subacromial bursa Performed by: Flavio Fernandez MD Authorized by: Flavio Fernandez MD Procedure Details: ??Location: ??Shoulder ??Site: ??L subacromial bursa ??Medications: ??4 mL bupivacaine HCl 0.5 % (5 mg/mL); 80 mg triamcinolone 40 mg/mL; 4 mL lidocaine 10 mg/mL (1 %) Result [facility] Flavio Fernandez MD IN CLINIC/BEDSIDE ORDERABLES Final Result documented in this encounter Visit Diagnoses Diagnosis Tear of left rotator cuff, unspecified tear extent, unspecified whether traumatic- Primary documented in this encounter Administered Medications Inactive Administered Medications - up to 3 most recent administrations Medication Order MAR Action Action Date Dose Rate Site bupivacaine HCl (MARCAINE) 0.5 % (5 mg/mL) injection 4 mL 4 mL, other, One-Time Injection, Starting on Reyna 04/14/22 at 1652, For 1 doseIndications:Tear of left rotator cuff, unspecified tear extent, unspecified whether traumatic Given 04/14/2022 4:52 PM CDT 4 mL lidocaine (XYLOCAINE) 10 mg/mL (1 %) injection 4 mL 4 mL, One-Time Injection, Starting on Reyna 04/14/22 at 1652, For 1 dose, Indications: Administration of Local AnesthesiaIndications:Administratio n of Local Anesthesia Given 04/14/2022 4:52 PM CDT 4 mL triamcinolone (KENALOG) 40 mg/mL injection 80 mg 80 mg, intra-articular, One-Time Injection, Starting on Reyna 04/14/22 at 1652, For 1 doseIndications:Tear of left rotator cuff, unspecified tear extent, unspecified whether traumatic Given 04/14/2022 4:52 PM CDT 80 mg documented in this encounter Care Teams Director Acute Relationship Specialty Start Date End Date Bao Pierre MD [address] [address] PCP - General 12/22/16 documented as of this encounter
--- OUTSIDE RECORDS SUMMARY | 2024-10-01 08:42 | XMS_ITS | Encounter Summary ---
Author Organization [facility] Healthcare Address [address] [place] [address] Care Team Providers Care Platinum And Palladium Kettle Tender Name Role Phone Bao Pierre MD Primary Care Provider [phone] Reason for Referral * Diagnostic Imaging (Routine) - Closed Specialty Diagnoses / Procedures Referred By Amber flores Referred To Contact Diagnoses Chronic left shoulder pain Procedures XR Shoulder Left 2 or More Views Ariadne Vail NP [address] [address] Phone: tel: fax: [address] [address] Referral ID Status Reason Start Date Expiration Date Visits Re quested Visits Authorized [id number] Closed 03/08/2022 04/07/2023 1 1 Reason for Visit * Diagnostic Imaging (Routine) - Closed Specialty Diagnoses / Procedures Referred By Amber flores Referred To Contact Diagnoses Chronic left shoulder pain Procedures XR Shoulder Left 2 or More Views Ariadne Vail NP [address] [address] Phone: tel: fax: [address] [address] Referral ID Status Reason Start Date Expiration Date Visits Re quested Visits Authorized [id number] Closed 03/08/2022 04/07/2023 1 1 Encounter Details Date Type Department Care Team (Latest Contact Info) Description 03/08/2022 11:45 AM CDT - 03/08/2022 11:59 PM CDT Hospital Encounter [facility] [address] [place] [address] Chronic left shoulder pain Discharge Disposition: Discharge to home or [...] on file Legal Sex Male 9:03 PM PROPOSAL COORDINATOR Gender Identity Not on file Sexual Orientation Straight 10/15/2019 10 :34 PM PROPOSAL COORDINATOR documented as of this encounter Medications at [...] or self care documented in this encounter Miscellaneous Notes * Result Encounter Note - Ariadne Vail NP - 03/08/2022 2:04 PM CDT Xray showed mild arthritis. Proceed as we discussed and let us know how it is going . documented in this encounter Plan of Treatment Not on file documented as of this encounter Goals Goal Patient Goal Type Associated Problems Recent Progress Patient-Stated? Author CCM Chronic Pain Care Plan Chronic Care Management Worsening( 8:02 AM PROPOSAL COORDINATOR) Chika Tracy, RN Note: Problem: Chronic Pain Goals: 1. Minimize further functional decline 2. Maximize quality of life 3. Control pain Strategies: - Activity/exercise program recommendation - Conservative stepwise pain medicine strategy with multi-disciplinary approach - Recommend healthy lifestyle strategies and compensatory methods as needed documented as of this encounter Procedures Procedure Name Priority Date/Time Associated Diagnosis Comments XR SHOULDER LEFT 2 OR MORE VIEWS Schedule Routine, Read Routine (OP Routine) 03/08/2022 11:59 AM CDT Chronic left shoulder pain documented [...] signed by: Frandy Barclay M.D. Ariadne Vail DEPUTY CLERK OF SUPERIOR COURT IMG XR PROCEDURES Final Result documented in this encounter Visit Diagnoses Diagnosis Chronic left shoulder pain Pain in joint, shoulder region documented in this encounter Care Teams Platinum And Palladium Kettle Tender Relationship Specialty Start Date End Date Bao Pierre MD [address] [address] PCP - General 12/22/16 documented as of this encounter
--- OUTSIDE RECORDS SUMMARY | 2024-10-01 08:42 | XMS_ITS | Encounter Summary ---
Author Organization [facility] Address [address] [place] [address] Care Team Providers Care Director Of Agriculture Name Role Phone Bao Pierre MD Primary Care Provider [phone] Encounter Details Date Type Department Care Team (Late st Contact Info) Description 10/22/2021 [facility] [address] [facility] [address] [place] [address] Bao Pierre MD [address] [facility] [address] [place] [address] Social History Tobacco Use Types [...] on file Legal Sex Male 9:03 PM PHOTO OPTICS TECHNICIAN Gender Identity Not on file Sexual Orientation Straight 10/15/2019 10 :34 PM PHOTO OPTICS TECHNICIAN documented as of this encounter Plan of Treatment Not on file documented as of this encounter Goals Goal Patient Goal Type Associated Problems Recent Progress Patient-Stated? Author CCM Chronic Pain Care Plan Chronic Care Management Worsening( 8:02 AM PHOTO OPTICS TECHNICIAN) No Chika Watters, RN Note: Problem: Chronic Pain Goals: 1. Minimize further functional decline 2. Maximize quality of life 3. Control pain Strategies: - Activity/exercise program recommendation - Conservative stepwise pain medicine strategy with multi-disciplinary approach - Recommend healthy lifestyle strategies and compensatory methods as needed documented as of this encounter Procedures Procedure Name Priority Date/Time Associated Diagnosis Comments GI - RESULT 10/22/2021 12:33 PM PHOTO OPTICS TECHNICIAN documented in this encounter Results * GI - RESULT (10/22/2021 12:33 PM PHOTO OPTICS TECHNICIAN) Anatomical Region Laterality Modality Other Bao Pierre MD Final Result documented in this encounter Visit Diagnoses Not on filedocumented in this encounter Care Teams Director Of Agriculture Relationship Specialty Start Date End Date Bao Pierre MD [address] [facility] [address] [place] [address] PCP - General 12/22/16 documented as of this encounter
--- OUTSIDE RECORDS SUMMARY | 2024-10-01 08:42 | XMS_ITS | Encounter Summary ---
Author Organization [facility] [employer] of [facility] Address [address] [place] [address] Phone Care Team Providers Care Die Try Out Worker Stamping Name Role Phone Bao Pierre MD Primary Care Provider [phone] Encounter Details Date Type Department Care Team (Late st Contact Info) Description 10/11/2021 Telephone [facility] Cardiology [address] [facility] [address] [place] [address] Esteban Doyle MD [address] [place] [address] Social History Tobacco Use Types Packs/Day Years [...] on file Legal Sex Male 9:03 PM STEREO EQUIPMENT INSTALLER Gender Identity Not on file Sexual Orientation Straight 10/15/2019 10 :34 PM STEREO EQUIPMENT INSTALLER documented as of this encounter Miscellaneous Notes * Telephone Encounter - Jacqui Benito - 10/11/2021 1:47 PM CST Surgical letter sent to [facility]. F# [phone] EO EQUIPMENT INSTALLER * Telephone Encounter - Jacqui Benito - 10/11/2021 1:45 PM CST Images from the original note were not included. Jennifer Villegas RN Boyle, Carlee Can you send letter ?? Previous Messages ?? ----- Message ----- From: Esteban Doyle MD Sent: 10/11/2021 ??12:34 PM STEREO EQUIPMENT INSTALLER To: Jennifer Villegas RN Send lettter. Low cardiac risk, proceed without further testing. Okay to hold Plavix for four days prior to colonoscopy and restart evening of procedure if no intervention EO EQUIPMENT INSTALLER documented in this encounter Plan of Treatment Not on file documented as of this encounter Goals Goal Patient Goal Type Associated Problems Recent Progress Patient-Stated? Author CCM Chronic Pain Care Plan Chronic Care Management Worsening( 8:02 AM STEREO EQUIPMENT INSTALLER) No Cihka Watters RN Note: Problem: Chronic Pain Goals: 1. Minimize further functional decline 2. Maximize quality of life 3. Control pain Strategies: - Activity/exercise program recommendation - Conservative stepwise pain medicine strategy with multi-disciplinary approach - Recommend healthy lifestyle strategies and compensatory methods as needed documented as of this encounter Visit Diagnoses Not on filedocumented in this encounter Care Teams Die Try Out Worker Stamping Relationship Specialty Start Date End Date Bao Pierre MD [address] [address] PCP - General 12/22/16 documented as of this encounter
--- OUTSIDE RECORDS SUMMARY | 2024-10-01 08:43 | XMS_ITS | Encounter Summary ---
Author Organization [facility] Healthcare Address [address] [place] [address] Care Team Providers Care Umbrella Repairer Name Role Phone Bao Pierre MD Primary Care Provider Reason for Referral * Cardiology (Routine) - Closed Specialty Diagnoses / Procedures Referred By Amber flores Referred To Contact Diagnoses Lightheadedness Procedures Transthoracic Echo Complete W Doppler/CF Debra Morales NP Phone: tel: fax: [address] [phone] Referral ID Status Reason Start Date Expiration Date Visits Re quested Visits Authorized [id number] Closed 03/31/2021 04/30/2022 1 1 Reason for Visit * Cardiology (Routine) - Closed Specialty Diagnoses / Procedures Referred By Amber flores Referred To Contact Diagnoses Lightheadedness Procedures Transthoracic Echo Complete W Doppler/CF Debra Morales NP Phone: tel: fax: [address] [phone] Referral ID Status Reason Start Date Expiration Date Visits Re quested Visits Authorized [id number] Closed 03/31/2021 04/30/2022 1 1 Encounter Details Date Type Department Care Team (Latest Contact Info) Description 06/10/2021 10:25 AM CDT - 06/10/2021 11:59 PM CDT Hospital Encounter [facility] Cardiac Diagnostic Lab Count includes the [facility] [address] [place] [address] Debra Morales NP [address] [place] [address] Lightheadedness Discharge Disposition: Discharge to home or self [...] Frequency of Binge Drinking Not on file 12/2020 PHQ-2 Answer Date Recorded PHQ-2 Score 0 05/24/2019 Sex and Gender Information Value Date Recorded Sex Assigned at Not on file Legal Sex Male 9:03 PM CLINICAL SPECIALTY REP Gender Identity Not on file Sexual Orientation Straight 10/15/2019 10 :34 PM CLINICAL SPECIALTY REP documented as of this encounter Medications at [...] Plan Chronic Care Management Worsening( 8:02 AM CLINICAL SPECIALTY REP) Chika Tracy RN Note: Problem: Chronic Pain Goals: 1. Minimize further functional decline 2. Maximize quality of life 3. Control pain Strategies: - Activity/exercise program recommendation - Conservative stepwise pain medicine strategy with multi-disciplinary approach - Recommend healthy lifestyle strategies and compensatory methods as needed documented as of this encounter Procedures Procedure Name Priority Date/Time Associated Diagnosis Comments TRANSTHORACIC ECHO (TTE) COMPLETE W DOPPLER/CF W CONTRAST Routine 06/10/2021 11:36 AM CDT Lightheadedness documented in this encounter Results * TRANSTHORACIC ECHO (TTE) COMPLETE W DOPPLER/CF W CONTRAST (06/10/2021 11:36 AM CDT) Anatomical Region Laterality Modality Ultrasound 06/10/2021 10:3 0 AM CDT Narrative 06/11/2021 10:10 AM CDT Patient name: Frandy Alvares Date of test: 06/10/2021 Type of test: TTE w/Doppler [facility] #: [id number] Date of : 1935 (M) Ceramic Coater Machine: Kimmy Beaulieu RDCS Referring Physician: DEBRA MORALES NP Contrast Agent: 0.8 ml Optison Administered, (2.2 ml wasted). Contrast Administered by: Tunde Kovacs RN Supervised/Interpreted by: Carisa Barraza MD Diagnosis: Location: [facility] Reason for test: Lightheadedness MV Structure: Normal, ?MV Motion: Normal, ?? Mitral Annulus: mildly calcified AV Structure: probably tricuspid and is not well seen, ?? AV Motion: Aotic root: Normal, ?TM: Normal, ?? PV: normal Valvular Vegetations: none seen, ?Mass/Thrombi: none seen RA: Normal Measurements: ?M-Mode ?Normal ? Aotic Root: ? <3.8 ? LA: ? <4.0 ? RV: ? <2.8 ? LV(ED): ? <5.7 ? LV(ES): ? Variable ?2D Linear Normal ? Aotic Root: 3.7 cm ?<4.0 ? Ao Indexed: 1.8 cm/M2 <2.0 ? LA: ? <4.0 ? RV: ? 3.6 cm ?<4.2 ? LV(ED): ? 4.5 cm ?<5.9 ? LV(ES): ? 2.4 cm ?<4.0 ?2D Vol. ?? Normal ?Indexed ?? Indexed Normal RA: ? 22.0 ml ? 10.8 ml/M2 ?11-39 ? LA: ? 49.0 ml ? 24.0 ml/M2 ?16-34 ? RV: ? <12.7 ? LV(ED): ? 138.0 ml ??62-150 ?67.7 ml/M2 ?<75 ? LV(ES): ? 39.0 ml ?? 21-61 ? 19.1 ml/M2 ?<32 ?3D Vol. ? Indexed Normal LV(ED): ?<75 ? LV(ES): ?<32 ? LV EF: 72 % ?? (Normal: >=52%) ?? LV Septum: ??cm ?(Normal: <1.0 cm) Wall Motion Scoring (1=Normal 2=Hypo 3=Akinetic 4=Dyskin./Aneurysm 0=Not visualized) Parasternal Long [place]:MAS=1 BAS=1 MIL=1 BASILIO=1 Parasternal Short [place]:MAS=1 MIS=1 WY=1 MIL=1 MAL=1 MA=1 Apical 4 Chambers:=1 MIS=1 BIS=1 BAL=1 MAL=1 AL=1 AC=1 Apical 2 Chambers:AI=1 WY=1 BI=1 BA=1 MA=1 AA=1 AC=1 LV Global Longitudinal Strain: -18.4% ??(Normal <-17%) RV Global Longitudinal Strain: LV Function: Normal LV Ejection Fraction, (EF=52-72%) RV Function: Normal Septal Motion: Normal Pericardial Effusion: none seen Atrial Septum: Normal DOPPLER/COLOR FLOW DOPPLER RESULTS: Diastolic Function: Impaired Relaxation Tricuspid Valve: Trace TR Pulmonic Valve: No NV AV Regurgitation: No AR seen AV Stenosis: no AV Area: ??cm2 AV Pressure Gradient (mmHg): Mean: 0, Peak:0 MV Regurgitation: No MR seen MV Stenosis: no MS MV Area: ??cm2 MV Pressure Gradient (mmHg): Mean: 0 MV ERO: ??cm Regurg. Vol.: ??ml/beat Regurg. Frac.: ??% PA Pressure: ??mmHg DOPPLER/COLOR FOLOW DOPPLER COMMENTS: Mild AR, No MR seen, no , no MS, Trace TR, No NV. Diastolic function: Impaired Relaxation AV Vmax 1.8m/s CONTRAST: 0.8 ml Optison Administered, (2.2 ml wasted). SUMMARY: Reduced image quality. LA and RA nl in size. Normal LV and RV size and systolic function. Unable to accurately assess LV wall thickness. Diastolic function: Impaired Relaxation. Trace TR. Unable to estimate PASP d/t inadequate TR jet. Aortic root nl in size. Aortic arch 3cm. IVC not well visualized. Confirmed on ??06/11/2021 - 10:10:08 by Carisa Barraza MD By signing this report, the attending auger supervisor certifies that he or she has personally supervised and interpreted the echocardiogram and has reviewed and or edited and agrees with the written comments contained within the report. Procedure Note Carisa Barraza MD - 06/11/2021 Patient name: Frandy Alvares Date of test: 06/10/2021 Type of test: TTE w/Doppler [facility] #: [id number] Date of : 1935 (M) Ceramic Coater Machine: Kimmy Beaulieu TERENCE Referring Physician: DEBRA MORALES NP Contrast Agent: 0.8 ml Optison Administered, (2.2 ml wasted). Contrast Administered by: Tunde Kovacs RN Supervised/Interpreted by: Carisa Barraza MD Diagnosis: Location: [facility] Reason for test: Lightheadedness MV Structure: Normal, MV Motion: Normal, Mitral Annulus: mildly calcified AV Structure: probably tricuspid and is not well seen, AV Motion: Aotic root: Normal, TM: Normal, PV: normal Valvular Vegetations: none seen, Mass/Thrombi: none seen RA: Normal Measurements: M-Mode Normal Aotic Root: <3.8 LA: <4.0 RV: <2.8 LV(ED): <5.7 LV(ES): Variable 2D Linear Normal Aotic Root: 3.7 cm <4.0 Ao Indexed: 1.8 cm/M2 <2.0 LA: <4.0 RV: 3.6 cm <4.2 LV(ED): 4.5 cm <5.9 LV(ES): 2.4 cm <4.0 2D Vol. Normal Indexed Indexed Normal RA: 22.0 ml 10.8 ml/M2 11-39 LA: 49.0 ml 24.0 ml/M2 16-34 RV: <12.7 LV(ED): 138.0 ml 62-150 67.7 ml/M2 <75 LV(ES): 39.0 ml 21-61 19.1 ml/M2 <32 3D Vol. Indexed Normal LV(ED): <75 LV(ES): <32 LV EF: 72 % (Normal: >=52%) LV Septum: cm (Normal: <1.0 cm) Wall Motion Scoring (1=Normal 2=Hypo 3=Akinetic 4=Dyskin./Aneurysm 0=Not visualized) Parasternal Long [place]:MAS=1 BAS=1 MIL=1 BASILIO=1 Parasternal Short [place]:MAS=1 MIS=1 WY=1 MIL=1 MAL=1 MA=1 Apical 4 Chambers:=1 MIS=1 BIS=1 BAL=1 MAL=1 AL=1 AC=1 Apical 2 Chambers:AI=1 WY=1 BI=1 BA=1 MA=1 AA=1 AC=1 LV Global Longitudinal Strain: -18.4% (Normal <-17%) RV Global Longitudinal Strain: LV Function: Normal LV Ejection Fraction, (EF=52-72%) RV Function: Normal Septal Motion: Normal Pericardial Effusion: none seen Atrial Septum: Normal DOPPLER/COLOR FLOW DOPPLER RESULTS: Diastolic Function: Impaired Relaxation Tricuspid Valve: Trace TR Pulmonic Valve: No NV AV Regurgitation: No AR seen AV Stenosis: no AV Area: cm2 AV Pressure Gradient (mmHg): Mean: 0, Peak:0 MV Regurgitation: No MR seen MV Stenosis: no MS MV Area: cm2 MV Pressure Gradient (mmHg): Mean: 0 MV ERO: cm Regurg. Vol.: ml/beat Regurg. Frac.: % PA Pressure: mmHg DOPPLER/COLOR FOLOW DOPPLER COMMENTS: Mild AR, No MR seen, no , no MS, Trace TR, No NV. Diastolic function: Impaired Relaxation AV Vmax 1.8m/s CONTRAST: 0.8 ml Optison Administered, (2.2 ml wasted). SUMMARY: Reduced image quality. LA and RA nl in size. Normal LV and RV size and systolic function. Unable to accurately assess LV wall thickness. Diastolic function: Impaired Relaxation. Trace TR. Unable to estimate PASP d/t inadequate TR jet. Aortic root nl in size. Aortic arch 3cm. IVC not well visualized. Confirmed on 06/11/2021 - 10:10:08 by Carisa Barraza MD By signing this report, the attending auger supervisor certifies that he or she has personally supervised and interpreted the echocardiogram and has reviewed and or edited and agrees with the written comments contained within the report. us Debra Morales TWIST TESTER CV ECHO PROCEDURES Final Res ult documented in this encounter Visit Diagnoses Diagnosis Lightheadedness Dizziness and giddiness documented in this encounter Administered Medications Inactive Administered Medications - up to 3 most recent administrations Medication Order MAR Action Action Date Dose Rate Site perflutren protein-a (OPTISON) 3 mL in sodium chloride 0.9% 8 mL syringe 1-8 mL, intravenous, Once in imaging, contrast, Starting on Reyna 06/10/21 at 1035, For 1 dose, Intra-Procedure (CV) Contrast Given 06/10/2021 11:36 AM CDT 2 mL documented in this encounter Care Teams Umbrella Repairer Relationship Specialty Start Date End Date Bao Pierre MD [address] [facility] [address] [place] [address] PCP - General 12/22/16 documented as of this encounter
--- OUTSIDE RECORDS SUMMARY | 2024-10-01 08:43 | XMS_ITS | Encounter Summary ---
Author Organization [facility] Address [address] [place] [address] Care Team Providers Care Edge Baster Name Role Phone Bao Pierre MD Primary Care Provider [phone] Reason for Visit * Reason Comments Back Pain Hyperlipidemia Leg Cramps Encounter Details Date Type Department Care Team (Late st Contact Info) Description 01/08/2021 10:15 AM CDT Office Visit [facility] [address] [facility] [address] [facility] [place] [address] Bao Pierre MD [address] [facility] [address] [place] [address] Hyperlipidemia, unspecified hyperlipidemia type (Primary Dx); Essential hypertension; 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, unspecified vessel or lesion type (CMS/HCC); Degeneration of lumbar or lumbosacral intervertebral disc Social History Tobacco Use Types Packs/Day Years Used Date Smoking Tobacco: Former Pipe 1 966 - 10/02/2013 Smokeless Tobacco: Never Comments:5-6 times a day Alcohol Use Standard Drinks/Week Comments No 0 (1 standard drink = 0.6 oz pur e alcohol) PHQ-2 Answer Date Recorded PHQ-2 Score 0 05/24/2019 Sex and Gender Information Value Date Recorded Sex Assigned at Not on file Legal Sex Male 9:03 PM WIRE STRAIGHTENER Gender Identity Not on file Sexual Orientation Straight 10/15/2019 10 :34 PM WIRE STRAIGHTENER documented as of this encounter Last Filed Vital Signs Vital Sign Reading Time Taken Comments Blood Pressure 98/59 01/08/2021 10:22 AM CDT Pulse 66 01/08/2021 10:22 AM CDT Temperature - - Respiratory Rate - - Oxygen Saturation - - Inhaled Oxygen Concentration - - Weight 91.6 kg (202 lb) 01/08/2021 10:22 AM CDT Height 175.3 cm (5' 9 ) 01/08/2021 10:22 AM CDT Body Mass Index 29.83 01/08/2021 10:22 AM CDT documented in this encounter Progress Notes * Bao Pierre MD - 01/08/2021 10:15 AM CDT Images from the original note were not included. Subjective/Objective Patient ID: Frandy Alvares is a 85 y.o. male. Chief Complaint Back Pain, Hyperlipidemia, and Leg Cramps HPI Here today for evaluation of his medical problems 1. Back pain is wondering if he should see Dr. Chance or doctors form has continued pain in his lower back does not necessarily want surgery 2. History of dyslipidemia doing well on medication 3. History of leg cramps has persisting cramping in his legs at night. For history of CAD needs a referral for Cardiology as Dr. Garcia has retired Past Surgical History: Procedure Laterality Date ??? BACK SURGERY ??? CARDIAC CATHETERIZATION 2012 ??? CATARACT EXTRACTION, BILATERAL ~2013, 2014 ??? HIP SURGERY Left 05/28/2018 L.CHRISTIANO ARNETT ??? MOHS SURGERY multiple ??? POSTERIOR LAMINECTOMY / DECOMPRESSION LUMBAR SPINE 2015 ??? OR REMOVAL GALLBLADDER 2017 ??? ROTATOR CUFF REPAIR [...] date: 1964 Quit date: 10/02/2013 Years since quittin.2 ??? Smokeless tobacco: Never Used ??? Tobacco comment: 5-6 times a day Substance Use Topics ??? Alcohol use: No ??? Drug use: Never Comment: denies CBD Immunization History Administered Date(s) Administered ??? Influenza, Trivalent, High Dose, Split, Preservative Free, Intramuscular 08/11/2016, 07/09/2017 ??? Influenza, Unspecified 08/02/2019 Current Outpatient Medications Medication Sig ??? aspirin 81 mg enteric coated tablet ADULT ASPIRIN EC LOW STRENGTH 81 MG ORAL TABLET DELAYED RELEASE ??? iaxe-qsu-kea-rrr-ioib-toik-pec (Fiber 6) 1,000 mg tablet FIBER ??? glucosamine sulfate 2KCl 500 mg capsule GLUCOSAMINE CAPSULE ??? alfuzosin ER (UROXATRAL) 10 mg 24 hr tablet Take 10 mg by mouth daily. ??? aspirin 81 mg enteric coated tablet Take 81 mg by mouth daily ??? azelastine (ASTELIN) 137 mcg (0.1 %) nasal spray Administer 1 spray into each nostril 2 (two) times a day Use in each nostril as directed (Patient not taking: Reported on 10/22/2020) ??? calcium phosphate-vitamin D3 250 mg calcium- 500 unit tablet,chewable Take by mouth ??? cefuroxime (CEFTIN) 250 mg tablet Take 1 tablet (250 mg total) by mouth 2 (two) times a day (Patient not taking: Reported on 10/22/2020) ??? clopidogreL (PLAVIX) 75 mg tablet Take 1 tablet (75 mg total) by mouth daily ??? finasteride (PROSCAR) 5 mg tablet Take 5 mg by mouth daily. ??? fluticasone propionate (FLONASE) 50 mcg/actuation nasal spray Administer 1 spray into each nostril 2 (two) times a day ??? glucosamine-chondroitin 500-400 mg tablet Take 1 tablet by mouth daily ??? inulin (FIBER GUMMIES) 2 gram tablet,chewable Take 1 tablet by mouth 2 (two) times a day. ??? rosuvastatin (CRESTOR) 40 mg tablet Take 1 tablet (40 mg total) by mouth daily Review of Systems Constitutional: Negative for [...] dysuria, frequency, hematuria and testicular pain. Musculoskeletal: Positive for back pain. Negative for gait problem. Skin: Negative for rash. Neurological: Negative for dizziness, speech difficulty, weakness, light- headedness and headaches. Hematological: Negative for adenopathy. Psychiatric/Behavioral: Negative for dysphoric mood and sleep disturbance. The patient is not nervous/anxious. Patient Vital Signs for the past 24 hrs: BP Pulse Height Weight 01/08/21 1022 98/59 66 175.3 cm (5' 9 ) 91.6 kg (202 lb) Wt Readings from Last 3 Encounters: 01/08/21 91.6 kg (202 lb) 09/09/20 92.5 kg (204 lb) 07/28/20 93.9 kg (207 lb) Physical Exam Constitutional: Appearance: Normal appearance. 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 mendenhall Labs No results found for: HGBA1C Lab Results Component Value Date POCCHOL 103 01/08/2021 Lab Results Component Value Date POCHDL 42 01/08/2021 Lab Results Component Value Date POCLDL 31 01/08/2021 Lab Results Component Value Date POCTRIG 149 01/08/2021 No results found for: [...] Plan Chronic Care Management Worsening( 8:02 AM WIRE STRAIGHTENER) Chika Tracy, RN Note: Problem: Chronic Pain Goals: 1. Minimize further functional decline 2. Maximize quality of life 3. Control pain Strategies: - Activity/exercise program recommendation - Conservative stepwise pain medicine strategy with multi-disciplinary approach - Recommend healthy lifestyle strategies and compensatory methods as needed documented as of this encounter Procedures Procedure Name Priority Date/Time Associated Diagnosis Comments POCT GLUCOSE 97844 Routine 01/08/2021 11 :05 AM CDT Hyperlipidemia, unspecified hyperlipidemia type POCT LIPID PANEL Routine 01/08/2021 11:0 5 AM CDT Hyperlipidemia, unspecified hyperlipidemia type documented in this encounter Results * POCT lipid panel (01/08/2021 11:05 AM CDT) Cholesterol, POC 103 mg/dL HDL, POC 42 mg/dL Triglycerides, POC 149 mg/dL LDL Cholesterol POC 31 mg/dL Capillary blood 01/08/2021 1 1:05 AM CDT us Bao Pierre MD POINT OF CARE TEST ORDERABLES Final Result * POCT glucose (01/08/2021 11:05 AM CDT) Glucose Blood, POC 97 mg/dL Blood specimen (specimen) 01/08/2021 11:05 AM CDT us Bao Pierre MD POINT OF CARE TEST ORDERABLES Final Result documented in this encounter Visit Diagnoses Diagnosis Hyperlipidemia, unspecified hyperlipidemia type- Primary Essential hypertension Unspecified essential hypertension 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 glucosamine sulfate 2KCl 500 mg capsule GLUCOSAMINE CAPSULE 09/13/2013 1 bcrk-hia-sds-dayana -uknv-vifk-ivl (Fiber 6) 1,000 mg tablet FIBER 09/13/2013 1 aspirin 81 mg enteric coated tablet ADULT ASPIRIN EC LOW STRENGTH 81 MG ORAL TABLET DELAYED RELEASE 09/13/2013 1 added in this encounter Care Teams Edge Baster Relationship Specialty Start Date End Date Bao Pierre MD [address] [place] [address] PCP - General 12/22/16 documented as of this encounter
--- OUTSIDE RECORDS SUMMARY | 2024-10-01 08:43 | XMS_ITS | Encounter Summary ---
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 Procedures XR Spine Lumbar W Bending 6 or More Views Eddi Shafer MD [address] [facility] [address] [facility] [phone] [place] [address] Phone: tel: fax: [address] [address] Referral ID Status Reason Start Date Expiration Date Visits Re quested Visits Authorized [id number] Closed 05/31/2021 06/30/2022 1 1 Reason for Visit * Diagnostic Imaging (Routine) - Closed Specialty Diagnoses / Procedures Referred By Contac t Referred To Contact Diagnoses Low back pain without sciatica, unspecified back pain laterality, unspecified chronicity 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 [address] [facility] [place] [address] Referral ID Status Reason Start Date Expiration Date Visits Re quested Visits Authorized [id number] Closed 05/31/2021 06/30/2022 1 1 Encounter Details Date Type Department Care Team (Latest Contact Info) Description 05/31/2021 12:42 PM CDT - 05/31/2021 11:59 PM CDT Hospital Encounter [facility] [address] [place] [address] Eddi Shafer MD [address] [facility] [address] [facility] [phone] [place] [address] Low back pain without sciatica, unspecified back pain laterality, unspecified chronicity; Spinal stenosis of lumbar region with neurogenic claudication; Spondylosis of lumbar region without myelopathy or radiculopathy Discharge Disposition: Discharge to home or self [...] on file Legal Sex Male 9:03 PM 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 Minimize further functional decline 2. Maximize quality of life 3. 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 2. Mild rotatory lumbar dextroscoliosis. Electronically signed by: Anibal Hickey M.D. Narrative 05/31/2021 1:20 PM CDT EXAMINATION: Lumbar spine 6 or more views HISTORY: ??Lumbago FINDINGS: 6 views of the lumbar spine are submitted for interpretation. Comparison is made to a prior examination on 01/09/2018 and 02/13/2019. There is mild rotatory dextroscoliosis apex at L3. There is severe diffuse lumbar spine degenerative disc disease. There is posterior decompression at L4-L5. On flexion and extension, the patient is hypomobile. On the oblique radiographs, there is multilevel facet osteoarthritis. 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 The aorta is atherosclerotic. Procedure Note Anibal Hickey MD - 05/31/2021 EXAMINATION: Lumbar spine 6 or more views HISTORY: Lumbago FINDINGS: 6 views of the lumbar spine are submitted for interpretation. Comparison is made to a prior examination on 01/09/2018 and 02/13/2019. There is mild rotatory dextroscoliosis apex at L3. There is severe diffuse lumbar spine degenerative disc disease. There is posterior decompression at L4-L5. On flexion and extension, the patient is hypomobile. On the oblique radiographs, there is multilevel facet osteoarthritis. 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 The aorta is atherosclerotic. IMPRESSION: 1. 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 2. Mild rotatory lumbar dextroscoliosis. Electronically signed by: Anibal Hickey M.D. 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
--- OUTSIDE RECORDS SUMMARY | 2024-10-01 08:43 | XMS_ITS | Encounter Summary ---
Author Organization [facility] Address [address] [place] [address] Phone Care Team Providers Care Lint Cleaner Name Role Phone Bao Pierre MD Primary Care Provider [phone] Encounter Details Date Type Department Care Team (Late st Contact Info) Description 03/22/2021 Telephone [facility] Cardiology [address] [facility] 8th [place] [address] [place] [address] Tonia Kwan Social History Tobacco Use Types Packs/Day Years Used Date Smoking Tobacco: Former Pipe 1 966 - 10/02/2013 Smokeless Tobacco: Never Comments:5-6 times a day Alcohol Use Standard Drinks/Week Comments No 0 (1 standard drink = 0.6 oz pur e alcohol) AUDIT-C Answer Date Recorded Q1: How often do you have a drink containing alc ohol? Never 02/22/2021 Average Number of Drinks Not on file 021 Frequency of Binge Drinking Not on file 01/31 PHQ-2 Answer Date Recorded PHQ-2 Score 0 05/24/2019 Sex and Gender Information Value Date Recorded Sex Assigned at Not on file Legal Sex Male 9:03 PM COOKIE BREAKER Gender Identity Not on file Sexual Orientation Straight 10/15/2019 10 :34 PM COOKIE BREAKER documented as of this encounter Miscellaneous Notes * Telephone Encounter - Anay Garcia - 03/22/2021 1:42 PM CDT Shayy called back and rescheduled his appt to 03/04/21 with COMPUTING MACHINE OPERATOR * Telephone Encounter - Anay Garcia - 03/22/2021 12:36 PM CDT There was an NTP slot for 03/23/21 at 3:30pm. I scheduled pt in that slot, spoke w/Shayy * Telephone Encounter - Jennifer Villegas RN - 03/22/2021 12:03 PM CDT Called shayy to reschedule-LMOR * Telephone Encounter - Esteban Doyle MD - 03/22/2021 11:43 AM CDT Can we reschedule as I prefer not doing telemedicine for new patients as I'm unable to do a full evaluation/assessment. * Telephone Encounter - Tonia Kwan - 03/22/2021 8:56 AM CDT CYNTHIA Pt has an NTP appt today. Shayy works for the pt, unfortunately, she is not able to bring pt to theoffice today due to her 5 month old was in the ER last night and she needs to keep him home to watch him. Shayy asking if it would be possible to [facility] as a telephone appt? Pt really wanting to speak with the Dr prior to a procedure he has scheduled for DOS 04/09/21. Pt has been cleared for the procedure. Pt has memory issues and wants to discuss with the Dr. Pls call Shayy to advise --she will be with the pt when needed. documented in this encounter Plan of Treatment Not on file documented as of this encounter Goals Goal Patient Goal Type Associated Problems Recent Progress Patient-Stated? Author CCM Chronic Pain Care Plan Chronic Care Management Worsening( 8:02 AM COOKIE BREAKER) Chika Tracy, RN Note: Problem: Chronic Pain Goals: 1. Minimize further functional decline 2. Maximize quality of life 3. Control pain Strategies: - Activity/exercise program recommendation - Conservative stepwise pain medicine strategy with multi-disciplinary approach - Recommend healthy lifestyle strategies and compensatory methods as needed documented as of this encounter Visit Diagnoses Not on filedocumented in this encounter Care Teams Lint Cleaner Relationship Specialty Start Date End Date Bao Pierre MD [id number] [place] [address] PCP - General 12/22/16 documented as of this encounter
--- OUTSIDE RECORDS SUMMARY | 2024-10-01 08:43 | XMS_ITS | Encounter Summary ---
Author Organization [facility] Healthcare Address [address] [place] [address] Care Team Providers Care Banquet Waiter/Waitress Name Role Phone Bao Pierre MD Primary Care Provider [phone] Reason for Referral * Diagnostic Imaging (Routine) - Closed Specialty Diagnoses / Procedures Referred By Contac t Referred To Contact Diagnoses Pain management Procedures FL Fluoroscopy < 1 Hour (Statistical Only) Eddi Shafer MD [address] [facility] [address] [facility] [id number] [place] [address] Phone: tel: fax: [address] [phone] Referral ID Status Reason Start Date Expiration Date Visits Re quested Visits Authorized [id number] Closed 05/04/2021 06/03/2022 1 1 Reason for Visit * Diagnostic Imaging (Routine) - Closed Specialty Diagnoses / Procedures Referred By Contac t Referred To Contact Diagnoses Pain management Procedures FL Fluoroscopy < 1 Hour (Statistical Only) Eddi Shafer MD [address] [facility] [address] [facility] [phone] [place] [address] Phone: tel: fax: [address] [phone] Referral ID Status Reason Start Date Expiration Date Visits Re quested Visits Authorized [id number] Closed 05/04/2021 06/03/2022 1 1 Encounter Details Date Type Department Care Team (Latest Contact Info) Description 05/05/2021 9:27 AM CDT - 05/05/2021 11:59 PM CDT Hospital Encounter [facility] Pain Management Imaging [facility] ([facility] [address] [place] [address] Pain management Discharge Disposition: Discharge to home or self [...] on file Legal Sex Male 9:03 PM CURB SETTER HELPER Gender Identity Not on file Sexual Orientation Straight 10/15/2019 10 :34 PM CURB SETTER HELPER documented as of this encounter Medications at [...] Plan Chronic Care Management Worsening( 8:02 AM CURB SETTER HELPER) No Chika Watters, RN Note: Problem: Chronic [...] ONLY) Schedule Routine, Read Routine (OP Routine) 05/05/2021 11:51 AM CDT Pain management documented in this encounter Results * FL Fluoroscopy < 1 Hour (Statistical Only) (05/05/2021 11:51 AM CDT) Narrative [facility] - 05/05/2021 11:51 AM CDT The images from this study are not interpreted by Radiology. ??Please refer to the physician's procedure / OR operative note. us Eddi Shafer MD IMG FLUOROSCOPY PROCEDURES Fi nal Result [facility] documented in this encounter Visit Diagnoses Diagnosis Pain management documented in this encounter Care Teams Banquet Waiter/Waitress Relationship Specialty Start Date End Date Bao Pierre MD [address] [facility] [address] [place] [address] PCP - General 12/22/16 documented as of this encounter
--- OUTSIDE RECORDS SUMMARY | 2024-10-01 08:43 | XMS_ITS | Encounter Summary ---
Author Organization [facility] Healthcare Address [address] [place] [address] Care Team Providers Care Computer Systems Integrator Name Role Phone Bao Pierre MD Primary Care Provider [phone] Reason for Visit * Reason Onset Date Comments Follow-up 05/28/2021 Encounter Details Date Type Department Care Team (Late st Contact Info) Description 05/28/2021 Telephone [facility] [place] [facility] [address] [facility] [address] [place], [place] [id number] Eddi Shafer MD [address] [facility] [address] [facility] [place] [place] [phone] [place], [place] [id number] Follow-up Social History Tobacco Use Types Packs/Day [...] on file Legal Sex 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 Relayed 's message to pt. Pt verbalized understanding that the appointment for Monday (05.31.2021) will no longer be a procedure but a follow up with to discuss other options. Pt stated that this was a good idea, because he was unsure of whether to continue to the procedure or not. Spoke with [place] to switch the appointment to a follow up. documented in this encounter Plan of Treatment Not on file documented as of this encounter Goals Goal Patient Goal Type Associated Problems Recent Progress Patient-Stated? Author CCM Chronic Pain Care Plan Chronic Care Management Worsening( 8:02 AM ENGINEERING TECHNICIAN) Chika Tracy RN Note: Problem: Chronic Pain Goals: 1. Minimize further functional decline 2. Maximize quality of life 3. Control pain Strategies: - Activity/exercise program recommendation - Conservative stepwise pain medicine strategy with multi-disciplinary approach - Recommend healthy lifestyle strategies and compensatory methods as needed documented as of this encounter Visit Diagnoses Not on filedocumented in this encounter Care Teams Computer Systems Integrator Relationship Specialty Start Date End Date Bao Pierre MD [address] [address] PCP - General 12/22/16 documented as of this encounter
--- OUTSIDE RECORDS SUMMARY | 2024-10-01 08:43 | XMS_ITS | Encounter Summary ---
Author Organization [facility] [employer] [facility] Address [address] [place] [address] Phone Care Team Providers Care Hydraulic Lift Driver Name Role Phone Bao Pierre MD Primary Care Provider [phone] Encounter Details Date Type Department Care Team (Late st Contact Info) Description 06/11/2021 Telephone [facility] Cardiology [address] [facility] [address] [place] [address] Mia Morales NP [address] [place] [address] Social History Tobacco Use Types Packs/Day Years [...] on file Legal Sex Male 9:03 PM MANUFACTURING BUSINESS ANALYST Gender Identity Not on file Sexual Orientation Straight 10/15/2019 10 :34 PM MANUFACTURING BUSINESS ANALYST documented as of this encounter Miscellaneous Notes * Telephone Encounter - Mia Morales NP - 06/11/2021 4:38 PM CDT Noted. Thanks * Telephone Encounter - Jennifer Villegas RN - 06/11/2021 3:25 PM CDT Spoke with pt went over results. He states he has severe pain in his back when he walks which when this happens he gets dizzy. He thinks its related to the pain in his back when he walks a certain distance. It usually only occurs at that point. * Telephone Encounter - Jennifer Villegas RN - 06/11/2021 3:21 PM CDT ----- Message from Mia Morales NP sent at 06/11/2021 1:05 PM CDT ----- Echo looks fine, nothing to explain lightheadedness. Have symptoms improved at all? Thanks documented in this encounter Plan of Treatment Not on file documented as of this encounter Goals Goal Patient Goal Type Associated Problems Recent Progress Patient-Stated? Author CCM Chronic Pain Care Plan Chronic Care Management Worsening( 8:02 AM MANUFACTURING BUSINESS ANALYST) No Chika Watters, RN Note: Problem: Chronic Pain Goals: 1. Minimize further functional decline 2. Maximize quality of life 3. Control pain Strategies: - Activity/exercise program recommendation - Conservative stepwise pain medicine strategy with multi-disciplinary approach - Recommend healthy lifestyle strategies and compensatory methods as needed documented as of this encounter Visit Diagnoses Not on filedocumented in this encounter Care Teams Hydraulic Lift Driver Relationship Specialty Start Date End Date Bao Pierre MD [address] [facility] [address], [place] [address] PCP - General 12/22/16 documented as of this encounter
--- OUTSIDE RECORDS SUMMARY | 2024-10-01 08:43 | XMS_ITS | Encounter Summary ---
Author Organization [facility] Address [address] [place] [address] Care Team Providers Care Ice Cream Van Vendor Name Role Phone Bao Pierre MD Primary Care Provider [phone] Reason for Visit * Reason Comments Hypertension Hyperlipidemia Dizziness Back Pain Encounter Details Date Type Department Care Team (Late st Contact Info) Description 05/14/2021 10:30 AM CDT Office Visit [facility] [address] [facility] [address] [place] [address] Bao Pierre MD [address] [facility] [address] [place] [address] Hyperlipidemia, unspecified hyperlipidemia type (Primary Dx); Sciatica of left side; Spinal stenosis of lumbar region without neurogenic claudication; Primary hypertension; Coronary artery disease involving huslia coronary artery of huslia heart without angina pectoris Social History Tobacco Use Types Packs/Day Years [...] on file Legal Sex Male 9:03 PM BUNCHER MACHINE Gender Identity Not on file Sexual Orientation Straight 10/15/2019 10 :34 PM BUNCHER MACHINE documented as of this encounter Last Filed Vital Signs Vital Sign Reading Time Taken Comments Blood Pressure 133/72 05/14/2021 11:00 AM CDT Pulse 67 05/14/2021 11:00 AM CDT Temperature - - Respiratory Rate - - Oxygen Saturation - - Inhaled Oxygen Concentration - - Weight 90.7 kg (200 lb) 05/14/2021 11:00 AM CDT Height 177.8 cm (5' 10 ) 05/14/2021 11:00 AM CDT Body Mass Index 28.7 05/14/2021 11:00 AM CDT documented in this encounter Progress Notes * Bao Pierre MD - 05/14/2021 10:30 AM CDT Images from the original note were not included. Subjective/Objective Patient ID: Frandy Alvares is a 85 y.o. male. Chief Complaint Hypertension, Hyperlipidemia, Dizziness, and Back Pain HPI Today for evaluation of his medical problems 1. CAD has had no chest pain or shortness of breath. Does have occasional dizziness which he relates to his low back pain 2. History of low back pain has been seeing pain management. Currently undergoing investigational procedures 3. History of hypertension has been doing fairly well 4. Hyperlipidemia. Past Surgical History: Procedure Laterality Date ??? BACK SURGERY ??? CARDIAC CATHETERIZATION 2012 ??? CATARACT EXTRACTION, BILATERAL ~2013, 2014 ??? HIP SURGERY Left 05/28/2018 DIM[facility] ARNETT ??? MOHS SURGERY multiple ??? POSTERIOR LAMINECTOMY / DECOMPRESSION LUMBAR SPINE 2015 ??? LA REMOVAL GALLBLADDER 2017 ??? ROTATOR CUFF REPAIR [...] date: 1964 Quit date: 10/02/2013 Years since quittin.6 ??? Smokeless tobacco: Never Used ??? Tobacco comment: 5-6 times a day Substance Use Topics ??? Alcohol use: No ??? Drug use: Never Comment: denies CBD Immunization History Administered Date(s) Administered ??? Influenza, Quadrivalent, Split, Preservative Free, Intramuscular 07/01/2019 ??? Influenza, Trivalent, High Dose, Split, Preservative Free, Intramuscular 09/06/2012, 08/11/2016, 07/09/2017, 07/09/2017 ??? Influenza, Trivalent, Intramuscular 07/05/2013, 07/18/2014 ??? Influenza, Unspecified 08/11/2016, 07/09/2017, 08/02/2019, [...] past 24 hrs: BP Pulse Height Weight 05/14/21 1100 133/72 67 177.8 cm (5' 10 ) 90.7 kg (200 lb) Wt Readings from Last 3 Encounters: 05/14/21 90.7 kg (200 lb) 05/05/21 88 kg (194 lb) 03/31/21 92.1 kg (203 lb) Physical Exam Constitutional: Appearance: Normal appearance. [...] - POCT glucose - POCT lipid panel Sciatica of left side (M54.32) Spinal stenosis of lumbar region without neurogenic claudication (M48.061) Comments: Per pain management Primary hypertension (I10) Comments: BP is at target Coronary artery disease involving huslia coronary artery of huslia heart without angina pectoris (I25.10) Comments: Per cardiology Labs No results found for: HGBA1C Lab Results Component Value Date POCCHOL 118 05/14/2021 POCCHOL 103 01/08/2021 Lab Results Component Value Date POCHDL 34 05/14/2021 POCHDL 42 01/08/2021 Lab Results Component Value Date POCLDL 57 05/14/2021 POCLDL 31 01/08/2021 Lab Results Component Value Date POCTRIG 133 05/14/2021 POCTRIG 149 01/08/2021 No [...] Plan Chronic Care Management Worsening( 8:02 AM BUNCHER MACHINE) Chika Tracy, RN Note: Problem: Chronic Pain Goals: 1. Minimize further functional decline 2. Maximize quality of life 3. Control pain Strategies: - Activity/exercise program recommendation - Conservative stepwise pain medicine strategy with multi-disciplinary approach - Recommend healthy lifestyle strategies and compensatory methods as needed documented as of this encounter Procedures Procedure Name Priority Date/Time Associated Diagnosis Comments POCT GLUCOSE 37569 Routine 05/14/2021 11 :32 AM CDT Hyperlipidemia, unspecified hyperlipidemia type POCT LIPID PANEL Routine 05/14/2021 11:3 2 AM CDT Hyperlipidemia, unspecified hyperlipidemia type documented in this encounter Results * POCT lipid panel (05/14/2021 11:32 AM CDT) Cholesterol, POC 118 mg/dL HDL, POC 34 mg/dL Triglycerides, POC 133 mg/dL LDL Cholesterol POC 57 mg/dL Capillary blood 05/14/2021 1 1:32 AM CDT us Bao Pierre MD POINT OF CARE TEST ORDERABLES Final Result * (ABNORMAL) POCT glucose (05/14/2021 11:32 AM CDT) Glucose Blood, POC 114 mg/dL Blood specimen (specimen) 05/14/2021 11:32 AM CDT us Bao Pierre MD POINT OF CARE TEST ORDERABLES Final Result documented in this encounter Visit Diagnoses Diagnosis Hyperlipidemia, unspecified hyperlipidemia type- Primary Sciatica of left side Spinal stenosis of lumbar region without neurogenic claudication Primary hypertension Unspecified essential hypertension Coronary artery disease involving huslia coronary artery of huslia heart without angina pectoris documented in this encounter Care Teams Ice Cream Van Vendor Relationship Specialty Start Date End Date Bao Pierre MD [address] [address] PCP - General 12/22/16 documented as of this encounter
--- OUTSIDE RECORDS SUMMARY | 2024-10-01 08:43 | XMS_ITS | Encounter Summary ---
Author Organization [facility] Healthcare Address [address] [place] [address] Care Team Providers Care Special Education Associate Name Role Phone Bao Pierre MD Primary Care Provider [phone] Reason for Visit * Reason Onset Date Comments Med Management 02/25/[address]ix from epoxy coatings installer Encounter Details Date Type Department Care Team (Late st Contact Info) Description 02/25/2021 Telephone [facility] [place] [facility] [address] [facility] [address] [place], [place] [id number] Eddi Shafer MD [address] [facility] [address] [facility] [id number] [place], [place] [id number] Med Management (clearance for plavix from epoxy coatings installer ) Social History Tobacco Use Types Packs/Day [...] on file Legal Sex Male 9:03 PM POWER AND RECOVERY SHIFT ENGINEER Gender Identity Not on file Sexual Orientation Straight 10/15/2019 10 :34 PM POWER AND RECOVERY SHIFT ENGINEER documented as of this encounter Miscellaneous Notes * Telephone Encounter - Radha Mckenna - 02/25/2021 10:11 AM CDT Received fax from dr henao with cardiology stating pt has clearance to hold plavix for 7 days prior to procedure for lmbb 04.09.21 with swarm Will scan and attach to call note Will send to rn, so they can document this for the procedure. documented in this encounter Plan of Treatment Not on file documented as of this encounter Goals Goal Patient Goal Type Associated Problems Recent Progress Patient-Stated? Author CCM Chronic Pain Care Plan Chronic Care Management Worsening( 8:02 AM POWER AND RECOVERY SHIFT ENGINEER) No Chika Watters, NIKKIE Note: Problem: Chronic Pain Goals: 1. Minimize further functional decline 2. Maximize quality of life 3. Control pain Strategies: - Activity/exercise program recommendation - Conservative stepwise pain medicine strategy with multi-disciplinary approach - Recommend healthy lifestyle strategies and compensatory methods as needed documented as of this encounter Visit Diagnoses Not on filedocumented in this encounter Care Teams Special Education Associate Relationship Specialty Start Date End Date Bao Pierre MD [address] [facility] [address] [place] [address] PCP - General 12/22/16 documented as of this encounter
--- OUTSIDE RECORDS SUMMARY | 2024-10-01 08:43 | XMS_ITS | Encounter Summary ---
Author Organization [facility] Address [address] [place] [address] Phone Care Team Providers Care Direct Chill Casting Operator Name Role Phone Bao Pierre MD Primary Care Provider [phone] Reason for Referral * Cardiology (Routine) - Closed Specialty Diagnoses / Procedures Referred By Contac t Referred To Contact Diagnoses Lightheadedness Procedures Transthoracic Echo Complete W Doppler/CF Debra Morales NP Phone: tel: fax: [address] [phone] Referral ID Status Reason Start Date Expiration Date Visits Re quested Visits Authorized [id number] Closed 03/31/2021 04/30/2022 1 1 Encounter Details Date Type Department Care Team (Latest Contact Info) Description 03/31/2021 10:00 AM CDT Office Visit [facility] Cardiology [address] [facility] [address] [place] [address] Debra Morales NP [address] [place], [place] [address] [address] Coronary artery disease involving chickahominy indians-eastern division coronary artery of chickahominy indians-eastern division heart without angina pectoris (Primary Dx); Hypertension, unspecified type; Hyperlipidemia, unspecified hyperlipidemia type; Lightheadedness Social History Tobacco Use Types Packs/Day Years [...] on file Legal Sex Male 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 Gender Identity Not on file Sexual Orientation Straight 10/15/2019 10 :34 PM OPERATIONS SUPERINTENDENT documented as of this encounter Last Filed Vital Signs Vital Sign Reading Time Taken Comments Blood Pressure 122/60 03/31/2021 10:02 AM CDT Pulse 70 03/31/2021 10:02 AM CDT Temperature - - Respiratory Rate - - Oxygen Saturation 95% 03/31/2021 10:02 AM CDT Inhaled Oxygen Concentration - - Weight 92.1 kg (203 lb) 03/31/2021 10:02 AM CDT Height 175.3 cm (5' 9 ) 03/31/2021 10:02 AM CDT Body Mass Index 29.98 03/31/2021 10:02 AM CDT documented in this encounter Patient Instructions * Patient Instructions* Debra Morales NP - 03/31/2021 10:00 AM CDT ?? Check Echocardiogram. ?? Increase fluid and salt intake. ?? Wear compression stockings. ?? Talk to Dr. Pierre about whether stopping alfuzosin might help. ?? Stop plavix altogether. ?? Please stay on aspirin 81mg daily, do not stop for spinal injection or dental work. documented in this encounter Progress Notes * Debra Morales NP - 03/31/2021 10:00 AM CDT Cardiology Return Office Visit Primary care Physician Bao Pierre MD [address] [facility] [address] [facility] [address] Patient Name: Frandy Alvares Date of : 1935 Date of Visit: 03/31/2021 PRINCIPAL AND SECONDARY DIAGNOSES: 1. Coronary artery disease s/p PCI-LAD 12/2019 2. Hyperlipidemia 3. Hypertension 4. Nonsustained VT (5-7 beat runs on Holter monitoring 10/2019, none on repeat study 01/2020) Frandy Alvares is a 85 y.o. male who presents today at the [facility] at [facility] in [place] for follow-up on his coronary artery disease. Caregiver/friend Shayy presentwith him to provide additional history. He previously followed with Dr. Garcia who is now retired. He plans to see Dr. Doyle for transition of care in the future but this is not scheduled yet. Since his PCI last year, he overall has been doing well from cardiovascular standpoint. He has had no chest pain, shortness of breath, lower extremity edema, or palpitations. His only complaint is lightheadedness which he states has been present ever since his stent last year. This is most pronounced with position changes, however he has also had episodes that occur after he has been up on his feet for a while doing an activity. As an example, last week he was picking up tree branches in his yard and when he got to the third tree he became very lightheaded and had to sit down. He also noticesoccasionally becoming lightheaded when back pain is more severe. He has not passed out. Friend Shayy states she has checked orthostatic vitals on him at home in the past, and has noticed a 30-40 point drop in systolic BPs with this. She has not checked more recently. He occasionally wears compression stockings which has helped with the orthostatic BP drop, but she does not recall if this helped with the lightheadedness. He does not drink water, but drinks 4-5 small glasses of juice or tea per day. He is planned for upcoming lumbar radiofrequency neuroablation for his back pain. Orthostatic BPs in office today: Lyin/71 Sittin/74 +lightheaded with this position change Standin/64 CURRENT MEDICATIONS: Current Outpatient Medications: ??? alfuzosin ER (UROXATRAL) 10 mg 24 hr tablet ??? ascorbic acid-vitamin E-biotin 7.5-7.5-1,250 mg-unit-mcg tablet,chewable ??? aspirin 81 mg enteric coated tablet ??? finasteride (PROSCAR) 5 mg tablet ??? glucosamine-chondroitin 500-400 mg tablet ??? inulin (FIBER GUMMIES) 2 gram tablet,chewable ??? rosuvastatin (CRESTOR) 40 mg tablet ??? UNABLE TO FIND PHYSICAL EXAMINATION: Vitals: 03/31/21 1002 BP: 122/60 BP Location: Left arm Patient Position: Sitting Pulse: 70 SpO2: 95% Weight: 92.1 kg (203 lb) Height: 175.3 cm (5' 9 ) GENERAL: Alert and oriented, well-nourished, in no acute distress. HEENT: Mucous membranes are moist. Sclerae white. No thyromegaly or lymphadenopathy. LUNGS: Normal effort and respiratory rate. Lungs clear to auscultation bilaterally. HEART: Normal rate, regular rhythm. No murmur present. No rubs or gallops. ABDOMEN: Soft, non-tender, and non-distended. No hepatosplenomegaly. MUSCULOSKELETAL: 5+ strength in upper and lower extremities, bilaterally symmetric. NEUROLOGIC/PSYCH: Alert and oriented x4. Calm and appropriate affect. Grossly normal bilateral motor function and sensation. VASCULAR: Extremities warm and well-perfused. All pulses intact. No edema. No carotid bruit. No JVD. SKIN: No cyanosis, pallor, clubbing, or rashes. LABORATORY/DIAGNOSTICS: Lipid panel 12/2020 TC 103 LDL 31 HDL 42 Trig 149 IMPRESSION AND PLAN: 1. Lightheadedness. He is mildly orthostatic in office today, and this has been more pronounced on home readings by caregiver/friend. He is not on any antihypertensives. Discussed non-pharmacologic interventions including increasing fluid/salt intake and wearing compression stockings daily. Alfuzosin could also be contributing however he has been on this for years; recommended he discuss with . Check Echocardiogram. 2. Coronary artery disease. Stable, with no recent angina. Continue aspirin 81mg daily and statin. Stop plavix since he is >1 year from his stent. 3. Hyperlipidemia. Lipids look great with LDL 31 in December. Continue rosuvastatin 40mg. 4. Preoperative cardiovascular assessment. He is low risk for adverse cardiovascular complications for upcoming spinal injection. He is able to achieve 4 METS and has no angina or symptoms to suggestactive CHF. We have discontinued his plavix altogether today, but recommend he remain on aspirin 81m g daily during perioperative period. Debra Morales, [facility]- CC: Bao Pierre MD [address] [address] documented in this encounter Plan of Treatment Not on file documented as of this encounter Goals Goal Patient Goal Type Associated Problems Recent Progress Patient-Stated? Author CCM Chronic Pain Care Plan Chronic Care Management Worsening( 8:02 AM OPERATIONS SUPERINTENDENT) No Chika Watters RN Note: Problem: Chronic Pain Goals: 1. Minimize further functional decline 2. Maximize quality of life 3. Control pain Strategies: - Activity/exercise program recommendation - Conservative stepwise pain medicine strategy with multi-disciplinary approach - Recommend healthy lifestyle strategies and compensatory methods as needed documented as of this encounter Results * TRANSTHORACIC ECHO (TTE) COMPLETE W DOPPLER/CF W CONTRAST (06/10/2021 11:36 AM CDT) Anatomical Region Laterality Modality Ultrasound 06/10/2021 10:3 0 AM CDT Narrative 06/11/2021 10:10 AM CDT Patient name: Frandy Alvares Date of test: 06/10/2021 Type of test: TTE w/Doppler [facility] #: [id number] Date of : 1935 (M) Planner: Kimmy Beaulieu TERENCE Referring Physician: DEBRA MORALES NP Contrast Agent: 0.8 ml Optison Administered, (2.2 ml wasted). Contrast Administered by: Tunde Kovacs RN Supervised/Interpreted by: Carisa Barraza MD Diagnosis: Location: [facility] Reason for test: Lightheadedness MV Structure: Normal, [...] 2=Hypo 3=Akinetic 4=Dyskin./Aneurysm 0=Not visualized) Parasternal Long Sikes:MAS=1 BAS=1 MIL=1 BASILIO=1 Parasternal Short Sikes:MAS=1 MIS=1 ME=1 MIL=1 MAL=1 MA=1 Apical 4 Chambers:=1 MIS=1 BIS=1 BAL=1 MAL=1 AL=1 AC=1 Apical 2 Chambers:AI=1 ME=1 BI=1 BA=1 MA=1 AA=1 AC=1 LV Global Longitudinal Strain: -18.4% ??(Normal <-17%) RV Global Longitudinal Strain: LV Function: Normal LV Ejection Fraction, (EF=52-72%) RV Function: Normal Septal Motion: Normal Pericardial Effusion: none seen Atrial Septum: Normal DOPPLER/COLOR FLOW DOPPLER RESULTS: Diastolic Function: Impaired Relaxation Tricuspid Valve: Trace TR Pulmonic Valve: No DE AV Regurgitation: No AR seen AV Stenosis: [...] no , no MS, Trace TR, No DE. Diastolic function: Impaired Relaxation AV Vmax 1.8m/s [...] MD By signing this report, the attending decal cutter certifies that he or she has personally supervised and interpreted the echocardiogram and has reviewed and or edited and agrees with the written comments contained within the report. Procedure Note Carisa Barraza MD - 06/11/2021 Patient name: Frandy Alvares Date of test: 06/10/2021 Type of test: TTE w/Doppler [facility] #: [id number] Date of : 1935 (M) Planner: Kimmy Beaulieu RDCS Referring Physician: DEBRA MORALES NP Contrast Agent: 0.8 ml Optison Administered, (2.2 ml wasted). Contrast Administered by: Tunde Kovacs RN Supervised/Interpreted by: Carisa Barraza MD Diagnosis: Location: [facility] Reason for test: Lightheadedness MV Structure: Normal, [...] 2=Hypo 3=Akinetic 4=Dyskin./Aneurysm 0=Not visualized) Parasternal Long Sikes:MAS=1 BAS=1 MIL=1 BASILIO=1 Parasternal Short Sikes:MAS=1 MIS=1 ME=1 MIL=1 MAL=1 MA=1 Apical 4 Chambers:=1 MIS=1 BIS=1 BAL=1 MAL=1 AL=1 AC=1 Apical 2 Chambers:AI=1 ME=1 BI=1 BA=1 MA=1 AA=1 AC=1 LV Global Longitudinal Strain: -18.4% (Normal <-17%) RV Global Longitudinal Strain: LV Function: Normal LV Ejection Fraction, (EF=52-72%) RV Function: Normal Septal Motion: Normal Pericardial Effusion: none seen Atrial Septum: Normal DOPPLER/COLOR FLOW DOPPLER RESULTS: Diastolic Function: Impaired Relaxation Tricuspid Valve: Trace TR Pulmonic Valve: No DE AV Regurgitation: No AR seen AV Stenosis: [...] no , no MS, Trace TR, No DE. Diastolic function: Impaired Relaxation AV Vmax 1.8m/s [...] MD By signing this report, the attending decal cutter certifies that he or she has personally supervised and interpreted the echocardiogram and has reviewed and or edited and agrees with the written comments contained within the report. Debra Morales NP CV ECHO PROCEDURES Final Res ult documented in this encounter Visit Diagnoses Diagnosis Coronary artery disease involving chickahominy indians-eastern division coronary artery of chickahominy indians-eastern division heart without angina pectoris- Primary Hypertension, unspecified type Hyperlipidemia, unspecified hyperlipidemia type Lightheadedness Dizziness and giddiness Lightheadedness Dizziness and giddiness documented in this encounter Discontinued Medications Medication Sig Discontinue Reason Start Date End Da te clopidogreL (PLAVIX) 75 mg tablet Take 1 tablet (75 mg total) by mouth daily 10/22/2020 03/31/2021 naproxen sodium 220 mg capsule ALEVE CAPSULE 09/13/2013 03/31/2021 documented as of this encounter Historical Medications * This list may reflect changes made after this encounter. UNABLE TO FIND prevegen daily 2022 added in this encounter Care Teams Direct Chill Casting Operator Relationship Specialty Start Date End Date Bao Pierre MD [address] [place] [address] PCP - General 12/22/16 documented as of this encounter
--- OUTSIDE RECORDS SUMMARY | 2024-10-01 08:43 | XMS_ITS | Encounter Summary ---
Author Organization [facility] Healthcare Address [address] [place] [address] Care Team Providers Care State Trooper Name Role Phone Bao Pierre MD Primary Care Provider [phone] Reason for Visit * Reason Onset Date Comments Anticoag Call 03/29/2021 Request Call Back 03/30/2021 Encounter Details Date Type Department Care Team (Late st Contact Info) Description 03/29/2021 Telephone [facility] [address] [facility] [address] [place] [address] Eddi Shafer MD [address] [facility] [address] [facility] [phone] [place], [place] [id number] Anticoag Call; Request Call Back Social History Tobacco Use Types Packs/Day Years [...] on file 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 Informed Shayy of nurse's pre call note. Shayy verbalized understanding of all information presented. Pt next appt on 04/09/21. Informed Shayy pt will need to stop the Plavix on 04/02/21 for procedure scheduled on 04/09/21. Informed Shayy pt needs to be off the Plavix for 7 days before the procedure with procedure day being day 8 and pt would then restart the Plavix the next day. Shayy states pt has appt with his meat cooler tomorrow and she will check to make sure pt can stopthe Plavix for the procedure. States if the meat cooler has a problem with the pt stopping the plavix she will call [facility] and let Dr. Shafer know. * Telephone Encounter - Paloma Alberto RN - 03/29/2021 2:02 PM CDT Spoke with pt and gave instructions re stopping plavix after 6/30 dose. Pt wrote down instructions and repeated them back. Stated he would call the girl who usually goes with me to the appointments and helps me. Pt is not sure which med is the plavix, but stated he would definitely call his helper himself as soon sa he hung up from talking to me. Pt also voiced concern that he thought Dr Shafer wasn't going to do anything else with me [facility]. Explained to pt that from what I could see in chart it appeared that we were waiting to proceed until we heard back from heart doctor giving approval for him to stop plavix for 7 days prior to procedure: which we did receive. Pt verbalized understanding. States he sees meat cooler tomorrow and will follow up. Will FYI Dr Shafer. documented in this encounter Plan of Treatment Not on file documented as of this encounter Goals Goal Patient Goal Type Associated Problems Recent Progress Patient-Stated? Author CCM Chronic Pain Care Plan Chronic Care Management Worsening( 8:02 AM FOOD SERVICE AGENT) Chika Tracy, RN Note: Problem: Chronic Pain Goals: 1. Minimize further functional decline 2. Maximize quality of life 3. Control pain Strategies: - Activity/exercise program recommendation - Conservative stepwise pain medicine strategy with multi-disciplinary approach - Recommend healthy lifestyle strategies and compensatory methods as needed documented as of this encounter Visit Diagnoses Not on filedocumented in this encounter Care Teams State Trooper Relationship Specialty Start Date End Date Bao Pierre MD [address] [address] PCP - General 12/22/16 documented as of this encounter
--- OUTSIDE RECORDS SUMMARY | 2024-10-01 08:43 | XMS_ITS | Encounter Summary ---
Author Organization [facility] Healthcare Address [address] [place] [address] Care Team Providers Care Bleach Machine Operator Name Role Phone Bao Pierre MD Primary Care Provider [phone] Reason for Visit * Reason Onset Date Comments Pain test note 08/12/2021 Lumbar spine senthil ging June 2021 Encounter Details Date Type Department Care Team (Late st Contact Info) Description 08/12/2021 Documentation [facility] [address] [facility] [address] [place] [address] Eddi Shafer MD [address] [facility] [facility] [place] [place] [id number] [place], [place] [id number] Pain test note (Lumbar spine imaging June 2021) Social History Tobacco Use Types Packs/Day Years [...] on file Legal Sex Male 9:03 PM VERIFYING SPECIALIST Gender Identity Not on file Sexual Orientation Straight 10/15/2019 10 :34 PM VERIFYING SPECIALIST documented as of this encounter Progress Notes * Eddi Shafer MD - 08/12/2021 12:25 PM CST Patient Name: Frandy Alvares : 1935 PCP: Bao Pierre MD Today's Date: 08/12/2021 Pain Management Test Review Note Radiographic imaging and radiology reports reviewed Lumbar spine radiographs [facility] 05/31/21 - lumbar spondylosis - mild rotary dextroscoliosis apex L3; facet arthropathy diffuse lower lumbar levels - lumbar disc degeneration - severe L3-4, L4-5, L5-S1 - hip osteoarthritis, right - moderate, prior left CHRISTIANO ?? Lumbar spine MRI [facility] 06/19/21 - prior lumbar spine surgery - [...] L3-4, B L5-S1 (as well as B L4-5).Based on that improvement, it would be reasonable to proceed with radiofrequency ablation lumbar medial branch nerves at those levels. Alternatively, consideration could be given to spinal cord stimulation. Plan: If interested, okay to schedule for repeat local anesthetic injections to facet joints B L3-4, B L5-S1 (first LMBB was in 2019 and will have to be repeated) So okay to schedule [id number] follow-up appointment with me to review other options for pain management as needed Que Shafer MD FYING SPECIALIST FYING SPECIALIST documented in this encounter Plan of Treatment Not on file documented as of this encounter Goals Goal Patient Goal Type Associated Problems Recent Progress Patient-Stated? Author CCM Chronic Pain Care Plan Chronic Care Management Worsening( 8:02 AM VERIFYING SPECIALIST) Chika Tracy, RN Note: Problem: Chronic Pain Goals: 1. Minimize further functional decline 2. Maximize quality of life 3. Control pain Strategies: - Activity/exercise program recommendation - Conservative stepwise pain medicine strategy with multi-disciplinary approach - Recommend healthy lifestyle strategies and compensatory methods as needed documented as of this encounter Visit Diagnoses Not on filedocumented in this encounter Care Teams Bleach Machine Operator Relationship Specialty Start Date End Date Bao Pierre MD [address] [place] [address] PCP - General 12/22/16 documented as of this encounter
--- OUTSIDE RECORDS SUMMARY | 2024-10-01 08:43 | XMS_ITS | Encounter Summary ---
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 Procedures MRI Lumbar Spine W WO Contrast Eddi Shafer MD [id number] [place] [address] Phone: tel: fax: [address] [phone] Referral ID Status Reason Start Date Expiration Date Visits Re quested Visits Authorized [id number] Closed 05/31/2021 06/30/2022 1 1 * Diagnostic Imaging (Routine) - [...] MD [id number] [place] [address] Phone: tel: fax: [facility] [address] [facility] [place] [address] Referral ID Status Reason Start Date Expiration Date Visits Re quested Visits Authorized [id number] Closed 05/31/2021 06/30/2022 1 1 Reason for Visit * Reason Comments Back Pain localized LBP Encounter Details Date Type Department Care Team (Latest Contact Info) Description 05/31/2021 10:00 AM CDT - 05/31/2021 12:41 PM CDT Hospital Encounter [facility] [address] [facility] [address] [place] [address] Eddi Shafer MD [address] [facility] [address] [facility] [id number] [place], [place] [id number] Low back pain without sciatica, unspecified back pain laterality, unspecified chronicity (Primary Dx); Spinal stenosis of lumbar region with neurogenic [...] on file 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 Gender Identity Not on file Sexual Orientation Straight 10/15/2019 10 :34 PM 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 documented as of this encounter Last Filed Vital Signs Vital Sign Reading Time Taken Comments Blood Pressure 127/84 05/31/2021 10:36 AM CDT Pulse 65 05/31/2021 10:36 AM CDT Temperature 36.3 ??C (97.3 ??F) 05/31/2021 10:36 AM C DT Respiratory Rate 18 05/31/2021 10:36 AM CDT Oxygen Saturation 97% 05/31/2021 10:36 AM CDT Inhaled Oxygen Concentration - - Weight 85.7 kg (189 lb) 05/31/2021 10:36 AM CDT Height 177.8 cm (5' 10 ) 05/31/2021 10:36 AM CDT Body Mass Index 27.12 05/31/2021 10:36 AM CDT documented in this encounter Discharge Instructions * Patient Instructions* Cheri Damian RN - 05/31/2021 10:00 AM CDT Lumbar spine xrays today on the 6th floor. We will schedule a Lumbar Spine MRI. Call back as needed and Dr Shafer will review to see if there is anything else to offer for treatment. documented in this encounter Medications at Time [...] Progress Notes * Eddi Shafer MD - 05/31/2021 10:00 AM CDT Patient Name: Ilsa Alvares : 1935 Today's Date: 05/31/2021 PCP: Bao Pierre MD Chief Complaint Patient presents with ??? Back Pain localized LBP Pain Management History Mr. ILSA ALVARES??37??was initially [...] decompression with Dr. Chance ? L-spine radiographs [facility] 01/09/18 - Prior lumbar laminectomy L3, L4 - lumbar spondylosis - rotary dextroscoliosis lumbar spine; facet arthropathy mid and lower lumbar spine severe R>L - lumbar disc degeneration - severe T12-L5 ?Left Hip radiographs [facility] 01/09/18 : - hip osteoarthritis, left - [...] L4-5, L5-S1 ?? Pelvis, left hip radiographs [facility] 06/24/19 -??left total hip arthroplasty in near-anatomic alignment -??hip osteoarthritis, right??-??mild ? 02/22/2021 - worsened??low back pain ? Worst Pain:?Low back Pain [...] cardiac catheterization/stent, without symptomatic heart disease ? Pain Management Summary - Other Chronic pain ?? - hip pain, left - hip osteoarthritis, left - moderate, progressive compared with prior hip radiograph 09/20/11 - ??Left Hip radiographs [facility] 01/09/18 - Lumbago??with left sciatica - Post lumbar laminectomy syndrome - Dr. Chance L3-4, L4-5 laminectomy/decompression 07/22/17 -??lumbar spinal canal stenosis??-??severe??L1-2 with effacement of spinal fluid;??moderate??L2-3, there is no spinal canal stenosis L3-4, L4-5, L5-S1??-??Lumbar spine MRI 02/13/19 -??lumbar spondylosis??-??mild dextroscoliosis apex L3; slight retrolisthesis L2-3 -??lumbar disc degeneration moderate, diffuse L1-2, L2-3, L3-4, L4-5 -??medical illness??-??hypertension, hypercholesterolemia,??CAD??with stent December 2019 (clopidogrel),??BPH ?? Pain Procedure Summary: 11/07/12 ??Lumbar transforaminal [...] to procedure given prior vagal reaction 01/16/18 hip joint injection - left?? 08/05/19 lumbar medial branch blocks bilateral L3, L4, L5, S1??-??essentially complete temporary relief of pain 05/05/21 lumbar medial branch blocks to temporarily denervated facet joints B L3- 4, B L5-S1 - excellent temporary pain relief > 80% ? Today's Visit 05/31/2021 Ilsa [place]on [place] returns [facility] for [...] to severity of pain with stand, walk Radiographic imaging personally reviewed today: Reviewed lumbar spine MRI [facility] - lumbar spinal canal stenosis - mod-severe L1-2 - prior lumbar spine surgery with laminectomy L3, L4, L5 NOTE: He might be a candidate for for to flex. - need updated imaging Past Medical Histoy Allergies Allergen Reactions ??? [...] neurogenic claudication ??? 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 Sciatica of left side ??? Solar lentiginosis ??? Sprain of rotator cuff capsule ??? Primary osteoarthritis of left hip ??? Lumbago ??? Chronic middle ear effusion, left Family History Problem Relation Age of Onset [...] date: 1964 Quit date: 10/02/2013 Years since quittin.7 ??? Smokeless tobacco: Never Used ??? Tobacco [...] Social Determinants of Health Financial Resource Strain: ??? Difficulty of Paying Living Expenses: Not on file Food Insecurity: ??? Worried About Running Out of Food in the Last Year: Not on file ??? Ran Out of Food in the Last Year: Not on file Transportation Needs: ??? Lack of Transportation (Medical): Not on file ??? Lack of Transportation (Non-Medical): Not on file Physical Activity: ??? Days of Exercise per Week: Not on file ??? Minutes of Exercise per Session: Not on file Stress: ??? Feeling of Stress : Not on file Social Connections: ??? Frequency of Communication with Friends and Family: Not on file ??? Frequency of Social Gatherings with Friends and Family: Not on file ??? Attends Zoroastrian Services: Not on file ??? Active Member of Clubs or Organizations: Not on file ??? Attends Club or Organization Meetings: Not on file ??? Marital Status: Not on file Intimate Partner Violence: ??? Fear of Current or Ex-Partner: Not on file ??? Emotionally Abused: Not on file ??? Physically Abused: Not on file ??? Sexually Abused: Not on file Review of Systems Constitutional: Positive for activity change. Gastrointestinal: Negative for constipation. Genitourinary: Negative for difficulty urinating. Musculoskeletal: Positive for back pain and gait problem (Increased back pain). Psychiatric/Behavioral: Negative for dysphoric mood and sleep disturbance. Physical Exam Vitals: 05/31/21 1036 BP: 127/84 Pulse: 65 Resp: 18 Temp: 97.3 ??F (36.3 ??C) SpO2: 97% Weight: 85.7 kg (189 lb) Height: 177.8 cm (5' 10 ) Body mass index is 27.12 kg/m??. CONSTITUTIONAL: General appearance normal, nutrition normal, no deformities, good grooming. EARS / NOSE / MOUTH / THROAT: Hearing assessment normal. RESPIRATORY: Normal effort. MUSCULOSKELETAL EXAMINATION: Gait slow, antalgic, symmetric, PSYCHIATRIC: Oriented X3, memory intact, and alert. Normal insight and judgement. Normal mood and affect. Speech normal. SKIN: Normal Assessment 1. Low back pain without sciatica, unspecified back pain laterality, unspecified chronicity 2. Spinal stenosis of lumbar region with neurogenic claudication 3. Spondylosis of lumbar region without myelopathy or radiculopathy Discussion: Analgesics Reviewed non opioid, adjuvant analgesics. Injection therapies Reviewed spinal steroid injections, lumbar medial branch blocks Physical therapy - detailed discussion regarding the importance of consistent use of optimized therapeutic and conditioning exercise programs. Orders: Orders Placed This Encounter ??? XR Spine Lumbar W Bending 6 or More Views Standing Status: Future Number of Occurrences: 1 Standing Expiration Date: 08/31/2021 Order Specific Question: Clinical question to be answered: Answer: lumbago Order Specific Question: Where should this order be performed? Answer: [facility] [[id number]] ??? MRI Lumbar Spine W WO Contrast Standing Status: Future Standing Expiration Date: 05/31/2022 Order Specific Question: Clinical question to be answered: Answer: lumbago Order Specific Question: Is patient claustrophobic? Answer: No Order Specific Question: Is patient able to lie flat for at least one hour? Answer: Yes Order Specific Question: Where should this order be performed? Answer: [facility] [152] Order Specific Question: Does the patient have a cardiovascular implantable electronic device, pacemaker, or implantable cardioverter-defibrillator? Answer: No Order Specific Question: Does the patient require anesthesia? Answer: No Order Specific Question: Does the patient have a programmable shunt? Answer: No 05/31/2021 Plan: Analgesics - - continue current analgesics Interventions - not at this time Imaging - ordered today Lumbar spine radiographs, lumbar spine MRI --- consider repeat lumbar medial branch blocks --- consider Vertiflex Physical Therapy - encourage independent use of exercise programs Follow-up - Return to Pain Center - as needed - depending on results of further lumbar spine imaging - Call as needed ADD: - Today's note documents my personal evaluation of this patient. ??In addition, I have reviewed and confirmed with the patient and nurse the supportive information documented in today's scanned Patient Health Questionnaire and Office Note. Eddi Shafer M.D. documented in this encounter Plan of Treatment Not on file documented as of this encounter Goals Goal Patient Goal Type Associated Problems Recent Progress Patient-Stated? 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 Minimize further functional decline 2. Maximize quality of life 3. Control pain Strategies: - Activity/exercise program recommendation - Conservative stepwise pain medicine strategy with multi-disciplinary approach - Recommend healthy lifestyle strategies and compensatory methods as needed documented as of this encounter Results * MRI Lumbar Spine W WO Contrast (06/19/2021 10:00 AM CDT) Anatomical Region Laterality Modality Spine N/A Magnetic Resonan ce 06/19/2021 12:3 7 PM CDT Impressions 06/20/2021 9:37 PM CDT Severe ??degenerative changes of the lumbar spine as described in detail above. Dictated by: Nando Hill M.D. The radiology attending physician has personally reviewed this study, and had reviewed and/or edited this written report and agrees with it. Electronically signed by: Dennys Nava M.D. Narrative 06/20/2021 9:37 PM CDT EXAMINATION: Magnetic resonance imaging (MRI) of the lumber spine without and with ??contrast. HISTORY: Left-sided sciatica. TECHNIQUE: Multiplanar multi-weighted MRI of the lumbar spine was performed without and with ??intravenous contrast using the standard lumbar spine protocol. Contrast information: 18 mL Dotarem COMPARISON: 02/13/2019. FINDINGS: Stepwise retrolisthesis from L1-S1. Mild dextroscoliosis. There are mild degenerative endplate changes throughout the lumbar spine with edema at L4-L5 and T10. There is mild height loss of L5, not significant changed and likely degenerative. The conus medullaris terminates at the level of L1-L2. The distal spinal cord signal intensity is normal. There are annular fissures from L1-S1. There is severe disc height loss throughout the lumbar spine. Posterior decompression at L3-L5. ??Limited views of the soft tissue surrounding the lumbar spine are unremarkable. L1-L2: ??Disc bulge. There is severe bilateral facet arthropathy. There is moderate right severe left neuroforaminal stenosis. There is moderate-severe spinal canal stenosis. Ligamentum flavum infolding. L2-L3: ??Disc bulge. There is severe bilateral facet arthropathy. There is moderate right mild left neuroforaminal stenosis. There is moderate spinal canal stenosis. Ligamentum flavum infolding. L3-L4: ??Disc bulge. There is severe bilateral facet arthropathy. There is moderate right severe left neuroforaminal stenosis. There is no spinal canal stenosis. L4-L5: ??Disc bulge. There is severe bilateral facet arthropathy. There is severe bilateral neuroforaminal stenosis. There is no spinal canal stenosis. Tiny synovial cyst associated with the right facet joint. L5-S1: ??Disc bulge with biforaminal protrusion and enhancement on the right foraminal and extraforaminal space, likely degenerative. There is severe bilateral facet arthropathy. There is severe bilateral neuroforaminal stenosis. There is no spinal canal stenosis. Procedure Note Dennys Nava MD - 06/20/2021 EXAMINATION: Magnetic resonance imaging (MRI) of the lumber spine without and with contrast. HISTORY: Left-sided sciatica. TECHNIQUE: Multiplanar multi-weighted MRI of the lumbar spine was performed without and with intravenous contrast using the standard lumbar spine protocol. Contrast information: 18 mL Dotarem COMPARISON: 02/13/2019. FINDINGS: Stepwise retrolisthesis from L1-S1. Mild dextroscoliosis. There are mild degenerative endplate changes throughout the lumbar spine with edema at L4-L5 and T10. There is mild height loss of L5, not significant changed and likely degenerative. The conus medullaris terminates at the level of L1-L2. The distal spinal cord signal intensity is normal. There are annular fissures from L1-S1. There is severe disc height loss throughout the lumbar spine. Posterior decompression at L3-L5. Limited views of the soft tissue surrounding the lumbar spine are unremarkable. L1-L2: Disc bulge. There is severe bilateral facet arthropathy. There is moderate right severe left neuroforaminal stenosis. There is moderate-severe spinal canal stenosis. Ligamentum flavum infolding. L2-L3: Disc bulge. There is severe bilateral facet arthropathy. There is moderate right mild left neuroforaminal stenosis. There is moderate spinal canal stenosis. Ligamentum flavum infolding. L3-L4: Disc bulge. There is severe bilateral facet arthropathy. There is moderate right severe left neuroforaminal stenosis. There is no spinal canal stenosis. L4-L5: Disc bulge. There is severe bilateral facet arthropathy. There is severe bilateral neuroforaminal stenosis. There is no spinal canal stenosis. Tiny synovial cyst associated with the right facet joint. L5-S1: Disc bulge with biforaminal protrusion and enhancement on the right foraminal and extraforaminal space, likely degenerative. There is severe bilateral facet arthropathy. There is severe bilateral neuroforaminal stenosis. There is no spinal canal stenosis. IMPRESSION: Severe degenerative changes of the lumbar spine as described in detail above. Dictated by: Nando Hill M.D. The radiology attending physician has personally reviewed this study, and had reviewed and/or edited this written report and agrees with it. Electronically signed by: Dennys Nava M.D. 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
--- OUTSIDE RECORDS SUMMARY | 2024-10-01 08:43 | XMS_ITS | Encounter Summary ---
Author Organization [facility] Healthcare Address [address] [place] [address] Care Team Providers Care Wound Specialist Name Role Phone Bao Pierre MD Primary Care Provider [phone] Reason for Visit * Reason Comments Back Pain Encounter Details Date Type Department Care Team (Latest Contact Info) Description 02/22/2021 9:00 AM CDT - 02/22/2021 11:59 PM CDT Hospital Encounter [facility] [address] [facility] [address] [place], [place] [id number] Eddi Shafer MD [address] [facility] [address] [facility] [phone] [place], [place] [id number] Low back pain without sciatica, unspecified back pain laterality, unspecified chronicity (Primary Dx); Spondylosis of lumbar region without myelopathy or radiculopathy; Spinal stenosis of lumbar region without neurogenic claudication Discharge Disposition: Discharge to home [...] on file Legal Sex Male 9:03 PM SALES PROJECT 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 Gender Identity Not on file Sexual Orientation Straight 10/15/2019 10 :34 PM SALES PROJECT COORDINATOR documented as of this encounter Last Filed Vital Signs Vital Sign Reading Time Taken Comments Blood Pressure 124/63 02/22/2021 9:44 AM CDT Pulse 68 02/22/2021 9:44 AM CDT Temperature 36.4 ??C (97.5 ??F) 02/22/2021 9:44 AM CD T Respiratory Rate 16 02/22/2021 9:44 AM CDT Oxygen Saturation 95% 02/22/2021 9:44 AM CDT Inhaled Oxygen Concentration - - Weight 87.1 kg (192 lb) 02/22/2021 9:44 AM CDT Height 175.3 cm (5' 9 ) 02/22/2021 9:44 AM CDT Body Mass Index 28.35 02/22/2021 9:44 AM CDT documented in this encounter Discharge Instructions * Patient Instructions* Whit Horn, NIKKIE - 02/22/2021 9:00 AM CDT [facility] DISCHARGE INSTRUCTIONS MEDICATIONS: [] Continue your current home medications Start: [] Notify your pharmacy for refill(s) 7 days before you are out of your medication. [] Opioid (Narcotic) Agreement signed and patient received copy. [] Side Effects of Opioid Medications given to patient Resume blood thinner: On Discontinue: Plavix for 7 days PROCEDURE at today's visit: DIET: [x] Resume normal diet [] See [facility] Post Discharge Procedure Information Sheet ACTIVITY: [x] Resume normal activity [] See [facility] Post Discharge Procedure Information Sheet REFERRALS: Physical Therapy [] [facility] Physical Therapy ([phone]) [] [facility] ([employer]) [] [facility] ([phone]) [] [facility] ([employer]) [] Other: Behavior Medicine [] Pain Psychologist, [facility] Pain Psychology Please call to schedule appointment [phone] or [phone] Diagnostic Test(s): EDUCATION provided on the following: [] Spinal Cord Stimulator Education and DVD. Vendor: FOLLOW UP APPOINTMENTS: [] Return as needed [] Follow up appointment: We will contact you the next day to obtain: [] An update on your condition [] Your Pain diary scores [x] Procedure at your next visit : Lumbar Medial Branch Block in 4-6 weeks COVID 19 Vaccine Update Steroids given for a procedure may decrease the effectiveness of the COVID 19 vaccine. Therefore, steroid injections will be held for 2(two) weeks before your first vaccine until 2 (two)weeks after your second vaccine. Please schedule your procedure according to the above guidelines. INSTRUCTIONS before your next procedure: [] See [facility] Pre-Procedure Information Sheet [] Do not eat or drink for six (6) hours before the time/date of the procedure. [] Inquire with your prescribing provider if ok to hold blood thinner for ( ) days before procedure. [] Blood work required 2 hours before procedure: [x] Wireworker needed for next procedure [x] Pre Procedure instructions will be sent through [employer] or by phone two working days prior to procedure. *Need help with [employer]? Call [phone]. Patient provided information and repeated back with understanding. If you need to reach us: For any questions about your procedure, please call the Pain Management Center [phone] (M-F) (8am-4pm) If you need urgent attention after 5 pm and weekends: Call the [facility] Claim Attorney at [phone] and ask for the Pain Service doctor supervisor precision optical elements. LUMBAR RADIOFREQUENCY NEUROABLATION [facility] PATIENT EDUCATION PRE-PROCEDURE INFORMATION SHEET What is radiofrequency neuroablation? Lumbar Radiofrequency neuroablation is used to treat back and leg pain. A special temperature probeis used to heat up small areas of nerve tissue in your back. Th is process helps stop the nerve from sending messages of pain. Pain relief varies with each person, but usually lasts from three monthsto one year. What should I do before my procedure? Let your doctor or nurse know if you are taking any blood thinners (such as Aggrenox, Coumadin,Effient, Eliquis, Lovenox, Plavix, Pletal, Pradaxa, Ticlid or Xarelto). ??? Do not eat for six (6) hours or drink liquids three (6) hours before your procedure. If you need to take medication, you may do so with small sips of water. ??? Bring someone with you to drive you home. ??? An X-ray machine will be used during the procedure. Let your doctor or nurse know if there is any chance you may be . What should I expect during my procedure? Your procedure will be done on an x-ray table while you are awake. ??? A binder technician will take x-rays. ??? The nurse will monitor your blood pressure, breathing and heart. ??? Your doctor and nurse will ask you frequent questions during the procedure about different sensations (feelings) you may be experiencing, such as tingling, pressure, thumping or throbbing. ??? Your doctor will use a local anesthetic to numb the area. ??? The procedure may take from 30 to 90 minutes. What should I expect after my procedure? A nurse will monitor you for a brief time. ??? You may feel sore at the injection site and have increased discomfort for one to two weeks after the procedure. ??? You may feel lightheaded or dizzy, or have numbness or weakness in your legs. These symptoms generally wear off in 6-8 hours and are almost always gone by the next morning. If you have any questions before your procedure, please call the Pain Management Center at and ask to speak to a nurse. documented in this encounter Medications at Time [...] (10 mg total) by mouth daily 4 clopidogreL (PLAVIX) 75 mg tablet Take 1 tablet (75 mg total) by mouth daily 90 tablet 3 10/22/2020 1 finasteride (PROSCAR) 5 mg tabletIndications :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 Take 1 tablet (5 mg total) by mouth daily 4 glucosamine sulfate 500 mg capsule GLUCOSAMINE CAPSULE 09/13/2013 3 inulin 2 gram tablet,chewable Take 1 tablet by mouth 2 (two) times a day 3 lisinopril-hydroC HLOROthiazide (ZESTORETIC) 10-12.5 mg per tablet 10/02/1969 2 naproxen sodium 220 mg capsule ALEVE CAPSULE 09/13/2013 02 1 rosuvastatin (CRESTOR) 40 mg tablet Take 1 tablet (40 mg total) by mouth daily 90 tablet 3 10/22/2020 4 documented as of this encounter Discharge Disposition Disposition Code Departure Means Destination Discharge to home or self care documented in this encounter Progress Notes * Eddi Shafer MD - 02/22/2021 9:00 AM CDT Patient Name: Ilsa Alvares : 1935 Today's Date: 02/22/2021 PCP: Bao Pierre MD Chief Complaint Patient presents with ??? Back Pain Pain Management History Mr. ILSA LAVARES 37??was initially seen in the Pain Ctr[facility] September 09 [address] Florentin Alva for left lower back pain. - medical illness - hypertension, hypercholesterolemia, CAD with stent December 2019, BPH ?? Mr Alvares [...] posterior spinal decompression with Dr. Chance ? Radiographic images personally reviewed today L-spine radiographs [facility] 01/09/18 - Prior lumbar laminectomy L3, L4 - lumbar spondylosis - rotary dextroscoliosis lumbar spine; facet arthropathy mid and lower lumbar spine severe R>L - lumbar disc degeneration - severe T12-L5 ?Left Hip radiographs [facility] 01/09/18 : - hip osteoarthritis, left [...] L4-5, L5-S1 ?? Pelvis, left hip radiographs [facility] 06/24/19 -??left total hip arthroplasty in near-anatomic alignment -??hip osteoarthritis, right??-??mild ? Pain Management Summary - Other Chronic pain ?? - hip pain, left - hip osteoarthritis, left - moderate, progressive compared with prior hip radiograph 09/20/11 - ??Left Hip radiographs [facility] 01/09/18 - Lumbago??with left sciatica - [...] CAD with stent December 2019 (clopidogrel), BPH ?? Pain Procedure Summary: 11/07/12 ??Lumbar transforaminal [...] - essentially complete temporary relief of pain ? Today's Visit 02/22/2021 Ilsa Alvares returns to the Pain Management Center for follow-up regarding worsened low back pain Pain Score: 8 Pain Location: Back (Lumbar) Pain Orientation: Lower, Bilateral Pain Descriptors: Other (Comment), Burning, Sharp (miserable) Pain Frequency: Frequently Worst Pain: Low back Pain intensity: worst [...] since cardiac catheterization/stent, without symptomatic heart disease Injection therapies: - essentially complete relief pain following lumbar medial branch blocks 08/06/19 Exercise programs: Limited due to severity of pain Current Analgesics: Pain Medications naproxen sodium 220 mg capsule ALEVE CAPSULE Radiographic imaging personally reviewed today: No recent radiographs Results above review Past Medical Histoy Allergies Allergen Reactions ??? [...] Take 81 mg by mouth daily ??? clopidogreL (PLAVIX) 75 mg tablet Take 1 tablet (75 mg total) by mouth daily 90 tablet 3 ??? finasteride (PROSCAR) 5 mg tablet Take 5 mg by mouth daily. ??? glucosamine-chondroitin 500-400 mg tablet Take 1 tablet by mouth daily ??? inulin (FIBER GUMMIES) 2 gram tablet,chewable Take 1 tablet by mouth 2 (two) times a day. ??? naproxen sodium 220 mg capsule ALEVE CAPSULE ??? rosuvastatin (CRESTOR) 40 mg tablet Take 1 tablet (40 mg total) by mouth daily 90 tablet 3 ??? [DISCONTINUED] glucosamine sulfate 2KCl 500 mg capsule GLUCOSAMINE CAPSULE ??? [DISCONTINUED] aspirin 81 mg enteric coated tablet ADULT ASPIRIN EC LOW STRENGTH 81 MG ORAL TABLET DELAYED RELEASE ??? [DISCONTINUED] azelastine (ASTELIN) 137 mcg (0.1 %) nasal spray Administer 1 spray into each nostril 2 (two) times a day Use in each nostril as directed (Patient not taking: Reported on 10/22/2020) 30 mL 5 ??? [DISCONTINUED] eime-ebu-epj-kps-ksuw-oagn-pec (Fiber 6) 1,000 mg tablet FIBER ??? [DISCONTINUED] calcium phosphate-vitamin D3 250 mg calcium- 500 unit tablet,chewable Take by mouth ??? [DISCONTINUED] cefuroxime (CEFTIN) 250 mg tablet Take 1 tablet (250 mg total) by mouth 2 (two) times a day (Patient not taking: Reported on 10/22/2020) 20 tablet 0 ??? [DISCONTINUED] fluticasone propionate (FLONASE) 50 mcg/actuation nasal spray Administer 1 sprayinto each nostril 2 (two) times a day 16 g 5 No current facility-administered medications on file prior [...] radiculopathy ??? Spinal stenosis of lumbar region without neurogenic claudication ??? 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 Smokeless tobacco: Never Used ??? Tobacco comment: 5-6 times a day Substance and Sexual Activity ??? Alcohol use: No ??? Drug use: Never Comment: denies CBD ??? Sexual activity: None Other Topics Concern ??? None Social History Narrative Smoking A Pipe : (Added by TW Conv) Current smoker : (Added by TW Conv) No alcohol use : (Added by TW Conv) : (Added by TW Conv) Retired : (Added by TW Conv) Social Determinants of Health Financial Resource Strain: ??? Difficulty of Paying Living Expenses: Food Insecurity: ??? Worried About Running Out of Food in the Last Year: ??? Ran Out of Food in the Last Year: Transportation Needs: ??? Lack of Transportation (Medical): ??? Lack of Transportation (Non-Medical): Physical Activity: ??? Days of Exercise per Week: ??? Minutes of Exercise per Session: Stress: ??? Feeling of Stress : Social Connections: ??? Frequency of Communication with Friends and Family: ??? Frequency of Social Gatherings with Friends and Family: ??? Attends [employer] Services: ??? Active Member of Clubs or Organizations: ??? Attends Club or Organization Meetings: ??? Marital Status: Intimate Partner Violence: ??? Fear of Current or Ex-Partner: ??? Emotionally Abused: ??? Physically Abused: ??? Sexually Abused: Review of Systems Constitutional: Positive for activity change. Gastrointestinal: Negative for constipation. Genitourinary: Negative for difficulty urinating. Musculoskeletal: Positive for back pain and gait problem (Severe exacerbation of pain low back). Psychiatric/Behavioral: Negative for sleep disturbance. Physical Exam Vitals: 02/22/21 0944 BP: 124/63 BP Location: Left arm Patient Position: Sitting Pulse: 68 Resp: 16 Temp: 97.5 ??F (36.4 ??C) TempSrc: Temporal SpO2: 95% Weight: 87.1 kg (192 lb) Height: 175.3 cm (5' 9 ) Body mass index is 28.35 kg/m??. CONSTITUTIONAL: General appearance normal, nutrition normal, no deformities, good grooming. EARS / NOSE / MOUTH / THROAT: Hearing assessment normal. RESPIRATORY: Normal effort. MUSCULOSKELETAL EXAMINATION: Gait slow, symmetric, PSYCHIATRIC: Oriented X3, memory intact, and alert. Normal insight and judgement. Normal mood and affect. Speech normal. SKIN: Normal Assessment 1. Low back pain without sciatica, unspecified back pain laterality, unspecified chronicity 2. Spondylosis of lumbar region without myelopathy or radiculopathy 3. Spinal stenosis of lumbar region without neurogenic claudication Discussion: Analgesics Reviewed non opioid, adjuvant analgesics. Recommend trial of acetaminophen Injection therapies - extended discussion about lumbar medial branch blocks, consideration of radiofrequency ablation - he has minimal pain at rest, therefore we discussed that it would be useful for him to do some walking/standing after lumbar medial branch blocks to try to determine efficacy of pain relief with these activities Physical therapy - detailed discussion regarding the importance of consistent use of optimized therapeutic and conditioning exercise programs. Orders: No orders of the defined types were placed in this encounter. 02/22/2021 Plan: Analgesics - - continue current analgesics Interventions - Local anesthetic lumbar medial branch blocks to do lock facet joints bilateral L3-4, bilateral L5-S1 next Pain Center appointment Imaging - reviewed as indicated above Physical Therapy - encourage independent use of exercise programs Follow-up - Return to Pain Center - Lumbar medial branch blocks - Call as needed ADD: - Today's note documents my personal evaluation of this patient. ??In addition, I have reviewed and confirmed with the patient and nurse the supportive information documented in today's scanned Patient Health Questionnaire and Office Note. Eddi Shafer M.D. On 02/22/2021, time spent on evaluation includes: 3 minutes spent prior to visit in chart review and preparation, review of medical records 29 minutes spent in avid-pk-qdji time with patient during the evaluation - minutes spent after the visit including ordering prescription(s), ordering diagnostic test(s), and chart completion after documentation 32 TOTAL time spent on evaluation on 02/22/2021 This time does not include time spent in any separately reportable services. documented in this encounter Plan of Treatment Not on file documented as of this encounter Goals Goal Patient Goal Type Associated Problems Recent Progress Patient-Stated? Author CCM Chronic Pain Care Plan Chronic Care Management Worsening( 8:02 AM SALES PROJECT COORDINATOR) No Chika Watters, NIKKIE Note: Problem: Chronic Pain Goals: 1. Minimize further functional decline 2. Maximize quality of life 3. 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 documented in this encounter Discontinued Medications Medication Sig Discontinue Reason Start Date End Da te aspirin 81 mg enteric coated tablet ADULT ASPIRIN EC LOW STRENGTH 81 MG ORAL TABLET DELAYED RELEASE Duplicate order 09/13/2013 02/22/2021 azelastine (ASTELIN) 137 mcg (0.1 %) nasal spray Administer 1 spray into each nostril 2 (two) times a day Use in each nostril as directed Therapy completed 09/09/2020 02/22/2021 pzzn-eqo-ldj-dayana-psyl- kelp-pec (Fiber 6) 1,000 mg tablet FIBER Duplicate order 09/13/2013 02/22/2021 calcium phosphate-vitamin D3 250 mg calcium- 500 unit tablet,chewable Take by mouth Therapy completed cefuroxime (CEFTIN) 250 mg tablet Take 1 tablet (250 mg total) by mouth 2 (two) times a day Therapy completed 07/28/2020 02/22/2021 fluticasone propionate (FLONASE) 50 mcg/actuation nasal spray Administer 1 spray into each nostril 2 (two) times a day Therapy completed 09/09/2020 02/22/2021 glucosamine sulfate 2KCl 500 mg capsule GLUCOSAMINE CAPSULE Duplicate order 09/13/2013 02/23/20 21 documented as of this encounter Historical Medications * This list may reflect changes made after this encounter. ascorbic acid-vitamin E-biotin 7.5-7.5-1,250 mg-unit-mcg tablet,chewable Take by mouth 2 (two) times a day naproxen sodium 220 mg capsule ALEVE CAPSULE 09/13/2013 021 added in this encounter Care Teams Wound Specialist Relationship Specialty Start Date End Date Bao Pierre MD [address] [address] PCP - General 12/22/16 documented as of this encounter
--- OUTSIDE RECORDS SUMMARY | 2024-10-01 08:43 | XMS_ITS | Encounter Summary ---
Author Organization [facility] Address [address] [place] [address] Phone Care Team Providers Care Ese Teacher Name Role Phone Bao Pierre MD Primary Care Provider [phone] Encounter Details Date Type Department Care Team (Late st Contact Info) Description 04/26/2021 Telephone [facility] Cardiology [address] [facility] [address] [place] [address] [place] [id number] Esteban Doyle MD [address] [place] [address] Social History Tobacco Use Types Packs/Day Years [...] on file Legal Sex Male 9:03 PM JANITOR Gender Identity Not on file Sexual Orientation Straight 10/15/2019 10 :34 PM JANITOR documented as of this encounter Miscellaneous Notes * Telephone Encounter - Nay Callejas RN - 04/26/2021 11:20 AM CDT See encounter 04/20. * Telephone Encounter - Sophy Gray - 04/26/2021 11:02 AM CDT Vivek Lucas is returning a call back in regards to pt. Pls see encounter from 04-20-2021. Pls call Shayy back documented in this encounter Plan of Treatment Not on file documented as of this encounter Goals Goal Patient Goal Type Associated Problems Recent Progress Patient-Stated? Author CCM Chronic Pain Care Plan Chronic Care Management Worsening( 8:02 AM JANITOR) Chika Tracy RN Note: Problem: Chronic Pain Goals: 1. Minimize further functional decline 2. Maximize quality of life 3. Control pain Strategies: - Activity/exercise program recommendation - Conservative stepwise pain medicine strategy with multi-disciplinary approach - Recommend healthy lifestyle strategies and compensatory methods as needed documented as of this encounter Visit Diagnoses Not on filedocumented in this encounter Care Teams Ese Teacher Relationship Specialty Start Date End Date Bao Pierre MD [address] [address] PCP - General 12/22/16 documented as of this encounter
--- OUTSIDE RECORDS SUMMARY | 2024-10-01 08:43 | XMS_ITS | Encounter Summary ---
Author Organization [facility] Address [address] [place] [address] Phone Care Team Providers Care Furnace Mason Name Role Phone Bao Pierre MD Primary Care Provider [phone] Encounter Details Date Type Department Care Team (Late st Contact Info) Description 04/22/2021 Telephone [facility] Cardiology [address] [facility] [address] 8th [place] [address] [place] [phone] Esteban Doyle MD [address] [place] [address] Social History Tobacco Use Types Packs/Day Years [...] on file Legal Sex Male 9:03 PM COMPENSATION COORDINATOR Gender Identity Not on file Sexual Orientation Straight 10/15/2019 10 :34 PM COMPENSATION COORDINATOR documented as of this encounter Miscellaneous Notes * Telephone Encounter - Jennifer Villegas RN - 04/22/2021 1:29 PM CDT See other note * Telephone Encounter - Melita Sheppard - 04/22/2021 11:46 AM CDT Vivek Lucas states returning call. She states that she was told that pt will need premedication before dental work but she is not sure if she was told that by cardiology or the orthopedic doctor since pt had a hip replacement. Please call to discuss. She asked for a call back after 2:30PM. documented in this encounter Plan of Treatment Not on file documented as of this encounter Goals Goal Patient Goal Type Associated Problems Recent Progress Patient-Stated? Author CCM Chronic Pain Care Plan Chronic Care Management Worsening( 8:02 AM COMPENSATION COORDINATOR) No Chika Watters RN Note: Problem: Chronic Pain Goals: 1. Minimize further functional decline 2. Maximize quality of life 3. Control pain Strategies: - Activity/exercise program recommendation - Conservative stepwise pain medicine strategy with multi-disciplinary approach - Recommend healthy lifestyle strategies and compensatory methods as needed documented as of this encounter Visit Diagnoses Not on filedocumented in this encounter Care Teams Furnace Mason Relationship Specialty Start Date End Date Bao Pierre MD [address] [place] [address] PCP - General 12/22/16 documented as of this encounter
--- OUTSIDE RECORDS SUMMARY | 2024-10-01 08:43 | XMS_ITS | Encounter Summary ---
Author Organization [facility] Address [address] [place] [address] Care Team Providers Care Jewel Hole Gauger Name Role Phone Bao Pierre MD Primary Care Provider [phone] Encounter Details Date Type Department Care Team (Late st Contact Info) Description 09/15/2020 Orders [facility] [address] [facility] [address] [place] [id number] Scanning, Provider Social History Tobacco Use Types Packs/Day [...] on file Legal Sex Male 9:03 PM INVENTORY ASSOCIATE Gender Identity Not on file Sexual Orientation Straight 10/15/2019 10 :34 PM INVENTORY ASSOCIATE documented as of this encounter Plan of Treatment Not on file documented as of this encounter Goals Goal Patient Goal Type Associated Problems Recent Progress Patient-Stated? Author CCM Chronic Pain Care Plan Chronic Care Management Worsening( 8:02 AM INVENTORY ASSOCIATE) No Chika Watters, RN Note: Problem: Chronic Pain Goals: 1. Minimize further functional decline 2. Maximize quality of life 3. Control pain Strategies: - Activity/exercise program recommendation - Conservative stepwise pain medicine strategy with multi-disciplinary approach - Recommend healthy lifestyle strategies and compensatory methods as needed documented as of this encounter Procedures Procedure Name Priority Date/Time Associated Diagnosis Comments SCAN - RADIOLOGY/IMAGING 09/15/2020 8:40 AM INVENTORY ASSOCIATE documented in this encounter Results * SCAN - RADIOLOGY/IMAGING (09/15/2020 8:40 AM INVENTORY ASSOCIATE) Anatomical Region Laterality Modality Other us Provider Scanning Final Result documented in this encounter Visit Diagnoses Not on filedocumented in this encounter Care Teams Jewel Hole Gauger Relationship Specialty Start Date End Date Bao Pierre MD [address] [address] PCP - General 12/22/16 documented as of this encounter
--- OUTSIDE RECORDS SUMMARY | 2024-10-01 08:43 | XMS_ITS | Encounter Summary ---
Author Organization [facility] Address [address] [place] [address] Phone Care Team Providers Care Senior User Experience Architect Name Role Phone Bao Pierre MD Primary Care Provider [phone] Encounter Details Date Type Department Care Team (Late st Contact Info) Description 02/22/2021 Telephone [facility] [address] 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 Shafer's office. * Telephone Encounter - Esteban Doyle MD - 02/22/2021 11:47 AM CDT Last PCI was December 2019. Okay to hold Plavix for seven days prior to procedure. * Telephone Encounter - Jeannine Ag BS - 02/22/2021 10:45 AM CDT cardiac clearance CYNTHIA CALLER NAME: KARIE FACILITY NAME: [facility] PHONE NUMBER: [phone] FAX NUMBER: [phone] TYPE OF SURGERY: PAIN MGT, LUMBAR MEDIAL BRANCH BLOCK NAME OF SURGEON: DR GERRY SHAFER SCHEDULED FOR: TBD MEDICATION TO BE HELD: PLAVIX FOR 7 DAYS PRIOR COMMENTS: documented in this encounter Plan of Treatment Not on file documented as of this encounter Goals Goal Patient Goal Type Associated Problems Recent Progress Patient-Stated? Author CCM Chronic Pain Care Plan Chronic Care Management Worsening( 8:02 AM BANANA CARRIER) No Chika aWtters, RN Note: Problem: Chronic Pain Goals: 1. Minimize further functional decline 2. Maximize quality of life 3. Control pain Strategies: - Activity/exercise program recommendation - Conservative stepwise pain medicine strategy with multi-disciplinary approach - Recommend healthy lifestyle strategies and compensatory methods as needed documented as of this encounter Visit Diagnoses Not on filedocumented in this encounter Care Teams Senior User Experience Architect Relationship Specialty Start Date End Date Bao Pierre MD [address] [facility] [address] [place] [address] PCP - General 12/22/16 documented as of this encounter
--- OUTSIDE RECORDS SUMMARY | 2024-10-01 08:43 | XMS_ITS | Encounter Summary ---
Author Organization [facility] Address [address] [place] [address] Care Team Providers Care X Ray Examiner Of Aircraft Name Role Phone Bao Pierre MD Primary Care Provider [phone] Reason for Visit * Reason Onset Date Comments pre procedure instructions 05/27/2021 Encounter Details Date Type Department Care Team (Late st Contact Info) Description 05/27/2021 Telephone [facility] [place] [facility] [address] [facility] [address] [place], [place] [id number] Eddi Shafer MD [address] 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 He V/U documented in this encounter Plan of Treatment Not on file documented as of this encounter Goals Goal Patient Goal Type Associated Problems Recent Progress Patient-Stated? Author CCM Chronic Pain Care Plan Chronic Care Management Worsening( 8:02 AM FOLDER AND NOTCHER) No Chika Watters RN Note: Problem: Chronic Pain Goals: 1. Minimize further functional decline 2. Maximize quality of life 3. Control pain Strategies: - Activity/exercise program recommendation - Conservative stepwise pain medicine strategy with multi-disciplinary approach - Recommend healthy lifestyle strategies and compensatory methods as needed documented as of this encounter Visit Diagnoses Not on filedocumented in this encounter Care Teams X Ray Examiner Of Aircraft Relationship Specialty Start Date End Date Bao Pierre MD [address] [address] PCP - General 12/22/16 documented as of this encounter
--- OUTSIDE RECORDS SUMMARY | 2024-10-01 08:43 | XMS_ITS | Encounter Summary ---
Author Organization [facility] Healthcare Address [address] [place] [address] Care Team Providers Care Licensed Nursing Assistant Name Role Phone aBo Pierre MD Primary Care Provider Encounter Details Date Type Department Care Team (Late st Contact Info) Description 05/03/2021 Telephone [facility] [place] [facility] [address] [facility] Advanced Medicine [address] [place], [place] [id number] Eddi Shafer MD [address] [facility] [address] [facility] [id number] [place], [place] [id number] Social History Tobacco Use Types Packs/Day Years [...] on file 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 Informed pt his pre procedure information will be sent through My Chart. Pt verbalized understanding of all information presented. documented in this encounter Plan of Treatment Not on file documented as of this encounter Goals Goal Patient Goal Type Associated Problems Recent Progress Patient-Stated? Author CCM Chronic Pain Care Plan Chronic Care Management Worsening( 8:02 AM CHARTERED WEALTH MANAGER) No Chika Watters RN Note: Problem: Chronic Pain Goals: 1. Minimize further functional decline 2. Maximize quality of life 3. Control pain Strategies: - Activity/exercise program recommendation - Conservative stepwise pain medicine strategy with multi-disciplinary approach - Recommend healthy lifestyle strategies and compensatory methods as needed documented as of this encounter Visit Diagnoses Not on filedocumented in this encounter Care Teams Licensed Nursing Assistant Relationship Specialty Start Date End Date Bao Pierre MD [address] [address] PCP - General 12/22/16 documented as of this encounter
--- OUTSIDE RECORDS SUMMARY | 2024-10-01 08:43 | XMS_ITS | Encounter Summary ---
Author Organization [facility] Address [address] [place] [address] Phone Care Team Providers Care Milling Machine Set Up Operator Name Role Phone Bao Pierre MD Primary Care Provider [phone] Encounter Details Date Type Department Care Team (Late st Contact Info) Description 04/20/2021 Telephone [facility] [address] [facility] Advanced Medicine 8th [place] [address] [place] [phone] Esteban Doyle MD [address] [place] [address] Social History Tobacco Use Types Packs/Day Years [...] file 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 She had no other questions. * Telephone Encounter - Nay Callejas RN - 04/26/2021 11:19 AM CDT Sophy Gray 16 minutes ago (11:03 AM) TS Cynthia Lucas is returning a call back in regards to pt. Pls see encounter from 04-20-2021. Pls call Shayy back Documentation * Telephone Encounter - Nay Callejas RN - 04/26/2021 10:53 AM CDT LMOR for pt to call. * Telephone Encounter - Jennifer Villegas RN - 04/22/2021 3:21 PM CDT Called Shayy-LMOR * Telephone Encounter - Esteban Doyle MD - 04/22/2021 1:31 PM CDT No cardiac indication for antibiotics. Should discuss with his orthopedic doctor who did hip replacement if they would like him to be on antibiotics for this but this is not something that we would prescribe. * Telephone Encounter - Jennifer Villegas RN - 04/22/2021 1:29 PM CDT Cynthia ?Wero Lucas states returning call. She states that she was told that pt will need premedication before dental work but she is not sure if she was told that by cardiology or the orthopedic doctor since pt had a hip replacement. Please call to discuss. She asked for a call back after 2:30PM. * Telephone Encounter - Nay Callejas RN - 04/21/2021 9:00 AM CDT LMOR for pt to call. * Telephone Encounter - Esteban Doyle MD - 04/20/2021 6:11 PM CDT I'm not seeing an indication in this chart either. Has he ever had a prosthetic heart valve or a history of endocarditis? I don't see either mentioned in any notes. * Telephone Encounter - Jennifer Villegas RN - 04/20/2021 3:04 PM CDT Reviewed chart- do not see indication for SBE Called pt to discuss and then will review with Dr. Doyle LMOR to call me back * Telephone Encounter - Tonia Huffman - 04/20/2021 1:41 PM CDT CYNTHIA WILL BE HAVING DENTAL WORK DONE. NEEDS PRESCRIPTION FOR ANTIBIOTIC MEDICAP ROACHDALE documented in this encounter Plan of Treatment Not on file documented as of this encounter Goals Goal Patient Goal Type Associated Problems Recent Progress Patient-Stated? Author CCM Chronic Pain Care Plan Chronic Care Management Worsening( 8:02 AM FOOD AND BEVERAGE CHECKER) Chika Tracy RN Note: Problem: Chronic Pain Goals: 1. Minimize further functional decline 2. Maximize quality of life 3. Control pain Strategies: - Activity/exercise program recommendation - Conservative stepwise pain medicine strategy with multi-disciplinary approach - Recommend healthy lifestyle strategies and compensatory methods as needed documented as of this encounter Visit Diagnoses Not on filedocumented in this encounter Care Teams Milling Machine Set Up Operator Relationship Specialty Start Date End Date Bao Pierre MD [address] [address] PCP - General 12/22/16 documented as of this encounter
--- OUTSIDE RECORDS SUMMARY | 2024-10-01 08:43 | XMS_ITS | Encounter Summary ---
Author Organization [facility] Healthcare Address [address] [place] [address] Care Team Providers Care Nurse Manager Name Role Phone Bao Pierre MD Primary Care Provider [phone] Reason for Visit * Reason Comments Back Pain Encounter Details Date Type Department Care Team (Latest Contact Info) Description 05/05/2021 9:22 AM CDT - 05/05/2021 9:26 AM CDT Hospital Encounter [facility] [address] [facility] [address] [place] [address] Eddi Shafer MD [address] [facility] [address] 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 Gender Identity Not on file Sexual Orientation Straight 10/15/2019 10 :34 PM BATCH MIXER OPERATOR documented as of this encounter Last Filed Vital Signs Vital Sign Reading Time Taken Comments Blood Pressure 113/61 05/05/2021 12:06 PM CDT Pulse 84 05/05/2021 12:01 PM CDT Temperature 36.5 ??C (97.7 ??F) 05/05/2021 10:14 AM C DT Respiratory Rate 20 05/05/2021 12:01 PM CDT Oxygen Saturation 96% 05/05/2021 12:01 PM CDT Inhaled Oxygen Concentration - - Weight 88 kg (194 lb) 05/05/2021 10:14 AM CDT Height 177.8 cm (5' 10 ) 05/05/2021 10:14 AM CDT Body Mass Index 27.84 05/05/2021 10:14 AM CDT documented in this encounter Discharge Instructions * Discharge Instructions* Cheri Damian, NIKKIE - 05/05/2021 11:07 AM CDT 8 HOUR PAIN DIARY Pain Intensity Scale [...] over the next 8 hours starting at _5_. We will call you for the results on the next business day. Your Doctor wants to know if this procedure helped you 1 hour after procedure 12pm 2 hour after procedure 1pm 3 hours after procedure 2pm 4 hours after procedure 3pm 5 hours after procedure 4pm 6 hours after procedure 5pm 7 hours after procedure 6pm 8 hours after procedure 7pm After this procedure you may have: ??? Dizziness ??? Numbness in extremities ??? Weakness in extremities These symptoms generally wear off in 6-8 [...] pool, hot tub, etc., for 24 hours. ??? You have received two (2) medications in your injection today. The first is a numbing medicine.This medicine may give you quick pain relief that may wear off before tomorrow. The second medicineis a steroid which may take 2-7 days to start working. You may also have some extra soreness at theinjection site. ??? After the numbing medicine wears off, your pain may return until the steroid starts working. If you have any questions or problems, please call the Pain Management Center at . For emergencies after 4:00 p.m., you should call the hospital nitric acid plant operator at and ask tospeak with the Pain Service doctor salon designer. [facility] DISCHARGE INSTRUCTIONS MEDICATIONS: [x] Continue your current home medications [] Notify your pharmacy for refill(s) 7 days before you are out of your medication. [] Opioid (Narcotic) Agreement signed and patient received copy. [] Side Effects of Opioid Medications given to patient PROCEDURE at today's visit: Lumbar Medial Branch Block #1 DIET: [x] Resume normal diet [] See [facility] Post Discharge Procedure Information Sheet ACTIVITY: [x] Resume normal activity [] See [facility] Post Discharge Procedure Information Sheet REFERRALS: Physical Therapy [] [facility] ([phone]) [] [facility] (Graded Motor Imagery) [] [facility] ([phone]) [] GMI (Graded Motor Imagery) [] Other: Behavior Medicine [] Pain Psychologist, [facility] Please call to schedule appointment [phone] or [phone] Diagnostic Test(s): EDUCATION provided on the following: [] Spinal Cord Stimulator Education and DVD. Vendor: FOLLOW UP APPOINTMENTS: [] Return as needed [] Follow up appointment: We will contact you the next day to obtain: [] An update on your condition [x] Your Pain diary scores [x] Procedure at your next visit : Repeat same procedure. COVID 19 Vaccine Update Steroids given for a procedure may decrease the effectiveness of the COVID 19 vaccine. Therefore, steroid injections will be held for 2(two) weeks before your first vaccine until 2 (two)weeks after your second vaccine. Please schedule your procedure according to the above guidelines. INSTRUCTIONS before your next procedure: [] See [facility] Pre-Procedure Information Sheet [] Do not eat or drink for six (6) hours before the time/date of the procedure. [] Inquire with your prescribing provider if ok to hold blood thinner for ( ) days before procedure. [] Blood work required 2 hours before procedure: [x] Small Parts Shaper Operator needed for next procedure [x] Pre Procedure instructions will be sent through Z[employer] or by phone two working days prior to procedure. *Need help with Zytoprotec? Call [phone]. Patient provided information and repeated back with understanding. If you need to reach us: For any questions about your procedure, please call the Pain Management Center [phone] (M-F) (8am-4pm) If you need urgent attention after 5 pm and weekends: Call the [facility] Umbrella Mender at [phone] and ask for the Pain Service doctor salon designer. documented in this encounter Medications at Time [...] tablet (10 mg total) by mouth daily finasteride (PROSCAR) 5 mg tabletIndications :benign prostatic [...] Progress Notes * Eddi Shafer MD - 05/05/2021 9:26 AM CDT Patient Name: Ilsa Alvares : 1935 Today's Date: 05/05/2021 PCP: Bao Pierre MD Chief Complaint Patient presents with ??? Back Pain Pain Management History Mr. ILSA ALVARES 37??was initially seen in the Pain Ctr., September 09 [address] Florentin Alva for left lower back pain. ?? - medical illness - hypertension, hypercholesterolemia, CAD [...] decompression with Dr. Chance ? L-spine radiographs [facility] 01/09/18 - Prior lumbar laminectomy L3, L4 - lumbar spondylosis - rotary dextroscoliosis lumbar spine; facet arthropathy mid and lower lumbar spine severe R>L - lumbar disc degeneration - severe T12-L5 ?Left Hip radiographs [facility] 01/09/18 : - hip osteoarthritis, left [...] L4-5, L5-S1 ?? Pelvis, left hip radiographs [facility] 06/24/19 -??left total hip arthroplasty in near-anatomic alignment -??hip osteoarthritis, right??-??mild ? 02/22/2021 - worsened low back pain ?? Worst Pain: Low back Pain intensity: worst [...] ???immediate?? relief of back pain with sitting ?? He had cardiac arrhythmia that was newly identified in recovery area in Pain Center at last appointment - that lead to cardiac evaluation and eventually cardiac catheterization which required stent December2019 ?? Cardiology evaluation Dr. Garcia - 10/22/20 note reviewed --- Dr. Garcia has subsequently retired, cardiology follow-up is planned - generally doing well since cardiac catheterization/stent, without symptomatic heart disease ? Pain Management Summary - Other Chronic pain ?? - hip pain, left - hip osteoarthritis, left - moderate, progressive compared with prior hip radiograph 09/20/11 - ??Left Hip radiographs [facility] 01/09/18 - Lumbago??with left sciatica - [...] essentially complete temporary relief of pain 05/05/21 lumbar medial branch blocks to temporarily denervated facet joints B L3- 4, B L5-S1 - excellent temporary pain relief > 80% ? Today's Visit 05/05/2021 Ilsa Alvares returns to the Pain Management Center for follow-up regarding ongoing low back pain Pain Score: 0 - No pain Pain Location: Back (Lumbar) Pain Orientation: Bilateral Pain Descriptors: Aching, Tiring Pain Radiating Towards: lower back into hips Pain Frequency: Constant/continuous Effect of Pain on Daily Activities: limiting, unable to walk more than from back of house to the front without then sitting down Worst Pain: Lower back bilateral Pain intensity: worst pain in last week - 0 /10; least pain - 0; current pain - 4 /10 Radiation of pain: Bilateral lumbar paraspinals and buttocks Associated signs/symptoms: none Injection therapies: Previous L3-S1 LMBB bilateral in 2019 with complete resolution of the pain forthat day. Exercise programs: HEP Current Analgesics: none Radiographic imaging personally reviewed today: Lumbar MRI 2019 facet moderate to severe arthropathy L3-4, L4-5, L5-S1 Severe spinal canal stenosis L3-4, L4-5 Severe neuroforaminal L>R Past Medical Histoy Allergies Allergen Reactions ??? Epinephrine Syncope and Dizziness Current Outpatient Medications on File Prior to Visit Medication Sig Dispense Refill ??? alfuzosin ER [...] facility-administered medications on file prior to visit. Patient Active Problem List Diagnosis ??? Primary [...] date: 1964 Quit date: 10/02/2013 Years since quittin.5 ??? Smokeless tobacco: Never Used ??? Tobacco comment: 5-6 times a day Substance and Sexual Activity ??? Alcohol use: No ??? Drug use: Never Comment: denies CBD ??? Sexual activity: Not on file Other Topics Concern ??? Not on file [...] Gatherings with Friends and Family: ??? Attends Anabaptist Services: ??? Active Member of Clubs or Organizations: ??? Attends Club or Organization Meetings: ??? Marital Status: Intimate Partner Violence: ??? Fear of Current or Ex-Partner: ??? Emotionally Abused: ??? Physically Abused: ??? Sexually Abused: Review of Systems Constitutional: Positive for activity change. Genitourinary: Negative for difficulty urinating. Musculoskeletal: Positive for back pain and gait problem. Psychiatric/Behavioral: Negative for dysphoric mood and sleep disturbance. Physical Exam Vitals: 05/05/21 1140 05/05/21 1143 05/05/21 1201 05/05/21 1206 BP: 156/68 (!) 163/104 115/54 113/61 BP Location: Patient Position: Pulse: 73 86 84 Resp: 13 24 20 Temp: SpO2: 98% 96% 96% Weight: Height: Body mass index is 27.84 kg/m??. CONSTITUTIONAL: General appearance normal, nutrition normal, no deformities, good grooming. EARS / NOSE / MOUTH / THROAT: Hearing assessment normal. RESPIRATORY: Normal effort. MUSCULOSKELETAL EXAMINATION: Gait antalgic, MSK: pain with palpation bilateral lumbar paraspinal Limited lumbar extension due to pain. Normal forward flexion PSYCHIATRIC: Oriented X3, memory intact, and alert. Normal insight and judgement. Normal mood and affect. Speech normal. SKIN: Normal Assessment 1. Spondylosis of lumbar region without myelopathy or radiculopathy 2. Low back pain without sciatica, unspecified back pain laterality, unspecified chronicity Discussion: Analgesics Reviewed Injection therapies Reviewed the role of lumbar medial branch blocks as part consideration for radiofrequency ablation lumbar medial branch nerves Physical therapy no new orders at this time. Will consider after RFA Orders: Orders Placed This Encounter ??? DISCONTD: bupivacaine (MARCAINE) 0.5 % (5 mg/mL) preservative free injection ??? DISCONTD: lidocaine PF (XYLOCAINE) 10 mg/mL (1 %) preservative free injection 05/05/2021 Plan: Analgesics - - continue current analgesics Interventions - bilateral L3-S1 LMBB done today to temporarily denervated facet joints B L3-4, B L5-S1 Imaging - reviewed as indicated above Physical Therapy - encourage independent use of exercise programs Follow-up - Return to Pain Center - at next available for LMBB #2 - Call as needed La Cortez DO Pain Fellow Department of Anesthesiology [facility] [place] ADD: - Today's note documents my personal evaluation of this patient. ??In addition, I have reviewed and confirmed with the patient and nurse the supportive information documented in today's scanned Patient Health Questionnaire and Office Note. - This patient was initially evaluated by the pain turfgrass management professor La Cortez DO. I reviewed that evaluation with the trainee and also evaluated the patient myself. I agree with the evaluation and recommendations noted above including edits which I have made to the note above. Eddi Shafer M.D. documented in this encounter Miscellaneous Notes * Perioperative Nursing Note - Cheri Damian RN - 05/05/2021 9:30 AM CDT During timeout pt mentioned he bruises from the blood thinner. Last note from Electric Transfer Operator states pt to stop blood thinner and switch to ASA. Pts caregiver was at appt and she takes care of setting up his meds and administering them. Called Shayy and unable to contact her, son Ilsa was not in waiting room. Dr Shafer and pt after discussion concluded that pt did stop his medication and was on ASA. Procedure was started. * Op Note - Eddi Shafer MD - 05/05/2021 9:26 AM CDT PROCEDURE NOTE: Name: Ilsa Alvares : 1935 Date of Procedure: 05/05/2021 Attending Surgeon: Eddi Shafer M.D. Home Health Care Respiratory Therapist: La Cortez DO NAME OF PROCEDURE: Local Anesthetic Medial Branch Nerve Blocks to Facet Joints at Bilateral L3-4, Bilateral L5-S1. PREPROCEDURAL DIAGNOSES: - Lumbar spondylosis without myelopathy or radiculopathy - Lumbago, chronic POSTPROCEDURAL DIAGNOSES: Same INDICATION FOR PROCEDURE: Ongoing severe lower back pain with lumbar spondylosis [...] completion of the proceudre. Eddi Shafer M.D. documented in this encounter Plan of Treatment Not on file documented as of this encounter Goals Goal Patient Goal Type Associated Problems Recent Progress Patient-Stated? Author CCM Chronic Pain Care Plan Chronic Care Management Worsening( 8:02 AM BATCH MIXER OPERATOR) Chika Tracy, RN Note: Problem: Chronic Pain Goals: 1. Minimize further functional decline 2. Maximize quality of life 3. Control pain Strategies: - Activity/exercise program recommendation - Conservative stepwise pain medicine strategy with multi-disciplinary approach - Recommend healthy lifestyle strategies and compensatory methods as needed documented as of this encounter Visit Diagnoses Diagnosis Spondylosis of lumbar region without myelopathy or radiculopathy- Primary Low back pain without sciatica, unspecified back pain laterality, unspecified chronicity documented in this encounter Administered Medications Inactive Administered Medications - up to 3 most recent administrations Medication Order MAR Action Action Date Dose Rate Site bupivacaine (MARCAINE) 0.5 % (5 mg/mL) preservative free injection As needed, Starting on Mon05/05/21 at 1144, Intra-Op Given 05/05/2021 11:44 AM CDT 6 mL lidocaine PF (XYLOCAINE) 10 mg/mL (1 %) preservative free injection As needed, Starting on Mon05/05/21 at 1144, Intra-Op Given 05/05/2021 11:44 AM CDT 18 mL documented in this encounter Historical Medications * This list may reflect changes made after this encounter. Medication Sig Dispense Quantity Refills Last Filled Start D ate End Date lisinopril-hydroCHLOR Othiazide (ZESTORETIC) 10-12.5 mg per tablet 10/02/1969 03/08/2022 added in this encounter Orders Discharge Count Last Ordered Date First Orde red Date DISCHARGE PATIENT 1 05/08/2021 documented in this encounter Care Teams Nurse Manager Relationship Specialty Start Date End Date Bao Pierre MD [address] [address] PCP - General 12/22/16 documented as of this encounter
--- OUTSIDE RECORDS SUMMARY | 2024-10-01 08:43 | XMS_ITS | Encounter Summary ---
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 Procedures MRI Lumbar Spine W WO Contrast Eddi Shafer MD [address] [facility] [address] [facility] [phone] [place] [address] Phone: tel: fax: [facility] [place] [address] Referral ID Status Reason Start Date Expiration Date Visits Re quested Visits Authorized [id number] Closed 05/31/2021 06/30/2022 1 1 Encounter Details Date Type Department Care Team (Latest Contact Info) Description 06/19/2021 8:45 AM CDT - 06/19/2021 11:59 PM CDT Hospital Encounter [facility] [address] [place] [address] Eddi Shafer MD [address] [facility] [address] [facility] [phone] [place] [address] Low back pain without sciatica, unspecified back [...] on file 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 Minimize further functional decline 2. Maximize quality of life 3. 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 Electronically signed by: Dennys Nava M.D. 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 85.7 kg), intravenous, Once in imaging, contrast, Starting on 06/19/21 at 0926, For 1 dose, Imaging Protocol Orders Contrast Given 06/19/2021 9:41 AM CDT 18 mL documented in this encounter Care Teams Dance Critic Relationship Specialty Start Date End Date Bao Pierre MD [address] [address] PCP - General 12/22/16 documented as of this encounter
--- OUTSIDE RECORDS SUMMARY | 2024-10-01 08:43 | XMS_ITS | Encounter Summary ---
Author Organization [facility] Healthcare Address [address] [place] [address] Care Team Providers Care Cork Mixer Name Role Phone Bao Pierre MD Primary Care Provider [phone] Reason for Visit * Reason Onset Date Comments PAIN DIARY 05/06/2021 Post-op Follow-up 05/06/2021 Encounter Details Date Type Department Care Team (Late st Contact Info) Description 05/06/2021 Telephone [facility] [address] [facility] [address] [place], [place] [id number] Eddi Shafer MD [address] [facility] [address] [facility] [phone] [place], [place] [phone] PAIN DIARY; Post-op Follow-up Social History Tobacco Use Types [...] on file 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 He is currently scheduled to return 05/31/21 for repeat lumbar medial branch blocks. Of course, since the initial procedure was of no benefit, we would not repeat those injections. I recommend that he keep that scheduled appointment so that we can use that time to decide what other options may yet be available. If he would like to have that appointment for evaluation/management to see what other treatment options available, then we should change the appointment from procedure to follow-up visit. Que Shafer * Telephone Encounter - Ernie Dwyer RN - 05/06/2021 3:27 PM CDT Date of Procedure: 05.05.2021 Procedure: Bilateral MBB #1 Level(s): L3-4, L5-S1 Site: []Left [] Right [x] Bilateral [] Midline Pre-Procedure Pain Score: 5/10 Sedation: [x] No Sedation [] Minimal Sedation [] Moderate Sedation IV Site: [x] N/A [] No Redness/Swelling [] Redness/Swelling Post Procedure Follow Up Assessment: Did the injection help you? [] Yes [x] No Do you feel you had more than 80% benefit? [] Yes [x] No [] N/A Current Pain Rating? 0/10 due to sitting, 3-4/10 when walking Numbness/Heaviness [x] No [] Yes Dizziness or lightheadedness [x] No [] Yes Puncture Site: [x] No tenderness/swelling [] Tenderness without drainage [] Advised to apply heating pad for 20 minutes for puncture sitesoreness. Pain Diary 2 Hour Pain Diary every 15 mins 4 Hour Pain Diary every 30 mins 8 Hour pain Diary every 1 hour 4 4 4 4 4 4 3 3 OtherComments/Concerns: Pt stated he got 10-20% relief. not a whole lot of difference from what it was before. intially when we left it was great started to wear off when he got home. * Telephone Encounter - Ernie Dwyer RN - 05/06/2021 3:07 PM CDT Date of Procedure: Procedure: Level(s): Site: []Left [] Right [] Bilateral [] Midline Pre-Procedure Pain Score: Sedation: [] No Sedation [] Minimal Sedation [] Moderate Sedation IV Site: [] N/A [] No Redness/Swelling [] Redness/Swelling Post Procedure Follow Up Assessment: Did the injection help you? [] Yes [] No Do you feel you had more than 80% benefit? [] Yes [] No [] N/A Current Pain Rating? Numbness/Heaviness [] No [] Yes Dizziness or lightheadedness [] No [] Yes Puncture Site: [] No tenderness/swelling [] Tenderness without drainage [] Advised to apply heating pad for 20 minutes for puncture sitesoreness. Pain Diary 2 Hour Pain Diary every 15 mins 4 Hour Pain Diary every 30 mins 8 Hour pain Diary every 1 hour OtherComments/Concerns: documented in this encounter Plan of Treatment Not on file documented as of this encounter Goals Goal Patient Goal Type Associated Problems Recent Progress Patient-Stated? Author CCM Chronic Pain Care Plan Chronic Care Management Worsening( 8:02 AM PST MANAGER) No Chika Watters, RN Note: Problem: Chronic Pain Goals: 1. Minimize further functional decline 2. Maximize quality of life 3. Control pain Strategies: - Activity/exercise program recommendation - Conservative stepwise pain medicine strategy with multi-disciplinary approach - Recommend healthy lifestyle strategies and compensatory methods as needed documented as of this encounter Visit Diagnoses Not on filedocumented in this encounter Care Teams Cork Mixer Relationship Specialty Start Date End Date Bao Pierre MD [address] [facility] [address] [place] [address] PCP - General 12/22/16 documented as of this encounter
--- OUTSIDE RECORDS SUMMARY | 2024-10-01 08:43 | XMS_ITS | Encounter Summary ---
Author Organization [facility] Healthcare Address [address] [place] [address] Care Team Providers Care Manufacturing Engineer Paint Name Role Phone Bao Pierre MD Primary Care Provider [phone] Reason for Visit * Reason Onset Date Comments Pain test note 06/13/2021 Lumbar spine rad iographs [facility] 05/31/21 Encounter Details Date Type Department Care Team (Late st Contact Info) Description 06/13/2021 Documentation [facility] [address] [facility] Advanced [facility] [address] [place] [address] Eddi Shafer MD [address] [facility] [address] [facility] [id number] [place], [place] [id number] Pain test note (Lumbar spine radiographs [facility] 05/31/21) Social History Tobacco Use Types Packs/Day Years [...] on file Legal Sex Male 9:03 PM PALLET SORTER Gender Identity Not on file Sexual Orientation Straight 10/15/2019 10 :34 PM PALLET SORTER documented as of this encounter Progress Notes * Eddi Shafer MD - 06/13/2021 12:41 PM CDT Patient Name: Frandy Alvares : 1935 PCP: Bao Pierre MD Today's Date: 06/13/2021 Pain Management Test Review Note Radiographic imaging and radiology reports reviewed Lumbar spine radiographs [facility] 05/31/21 - lumbar spondylosis - mild rotary dextroscoliosis apex L3; facet arthropathy diffuse lower lumbar levels - lumbar disc degeneration - severe L3-4, L4-5, L5-S1 - hip osteoarthritis, right - moderate, prior left CHRISTIANO Plan: He should proceed with lumbar spine MRI as ordered. That imaging is currently scheduled 06/19/21. Que Shafer MD documented in this encounter Plan of Treatment Not on file documented as of this encounter Goals Goal Patient Goal Type Associated Problems Recent Progress Patient-Stated? Author CCM Chronic Pain Care Plan Chronic Care Management Worsening( 8:02 AM PALLET SORTER) No Chika Watters, RN Note: Problem: Chronic Pain Goals: 1. Minimize further functional decline 2. Maximize quality of life 3. Control pain Strategies: - Activity/exercise program recommendation - Conservative stepwise pain medicine strategy with multi-disciplinary approach - Recommend healthy lifestyle strategies and compensatory methods as needed documented as of this encounter Visit Diagnoses Not on filedocumented in this encounter Care Teams Manufacturing Engineer Paint Relationship Specialty Start Date End Date Bao Pierre MD [address] [address] PCP - General 12/22/16 documented as of this encounter
--- OUTSIDE RECORDS SUMMARY | 2024-10-01 08:43 | XMS_ITS | Encounter Summary ---
Author Organization [facility] Address [address] [place] [address] Care Team Providers Care Gauntlet Pairer Name Role Phone Bao Pierre MD Primary Care Provider [phone] Reason for Visit * Reason Comments Earache Encounter Details Date Type Department Care Team (Late st Contact Info) Description 09/09/2020 12:45 PM LINTER OPERATOR Office Visit [facility] [address] [facility] [address] [place] [address] Ariadne Vail, KRISS [address] [facility] [address] [place], [place] [id number] Chronic middle ear effusion, left (Primary Dx) Social History Tobacco Use Types [...] on file Legal Sex Male 9:03 PM LINTER OPERATOR Gender Identity Not on file Sexual Orientation Straight 10/15/2019 10 :34 PM LINTER OPERATOR documented as of this encounter Last Filed Vital Signs Vital Sign Reading Time Taken Comments Blood Pressure 140/80 09/09/2020 1:15 PM LINTER OPERATOR Pulse 76 09/09/2020 1:15 PM LINTER OPERATOR Temperature - - Respiratory Rate - - Oxygen Saturation - - Inhaled Oxygen Concentration - - Weight 92.5 kg (204 lb) 09/09/2020 1:15 PM LINTER OPERATOR Height 175.3 cm (5' 9 ) 09/09/2020 1:15 PM LINTER OPERATOR Body Mass Index 30.13 09/09/2020 1:15 PM LINTER OPERATOR documented in this encounter Ordered Prescriptions Prescription Sig Dispense Quantity Refills Last Filled Start Date End Date cetirizine (ZyrTEC) 10 mg tablet Take 1 tablet (10 mg total) by mouth nightly 30 tablet 09/09/2020 1 azelastine (ASTELIN) 137 mcg (0.1 %) nasal spray Administer 1 spray into each nostril 2 (two) times a day Use in each nostril as directed 30 mL 5 09/09/2020 1 fluticasone propionate (FLONASE) 50 mcg/actuation nasal spray Administer 1 spray into each nostril 2 (two) times a day 16 g 5 09/09/2020 1 documented in this encounter Progress Notes * Ariadne Vail, KRISS - 09/09/2020 12:45 PM CST Office Visit Frandy Alvares is a 85 y.o. male here for Earache HPI 85 yo male presents with 2 mo of L ear pain. It is worse at night. Has been treated with antibiotics and medrol dose pack and reports no improvement with either. He reports last night pain was the worst of his life and woke him up. Saw ENT and had CT 09/04/20 that showed small L mastoid effusion, patient has not yet spoken with ENT regarding results. Denies rhinorrhea, cough or PND. No fever/chills. No loss of hearing. Current Medications Current Outpatient Medications: ??? alfuzosin ER (UROXATRAL) 10 mg 24 hr tablet, Take 10 mg by mouth daily. , Disp: , Rfl: ??? aspirin 81 mg enteric coated tablet, Take 81 mg by mouth daily, Disp: , Rfl: ??? calcium phosphate-vitamin D3 250 mg calcium- 500 unit tablet,chewable, Take by mouth, Disp: , Rfl: ??? cefuroxime (CEFTIN) 250 mg tablet, Take 1 tablet (250 mg total) by mouth 2 (two) times a day, Disp: 20 tablet, Rfl: 0 ??? clopidogreL (PLAVIX) 75 mg tablet, Take 1 tablet (75 mg total) by mouth daily, Disp: 90 tablet,Rfl: 3 ??? finasteride (PROSCAR) 5 mg tablet, Take [...] tablet, Rfl: 3 ??? UNABLE TO FIND, prevagen daily for memory, Disp: , Rfl: ??? azelastine (ASTELIN) 137 mcg (0.1 %) nasal spray, Administer 1 spray into each nostril 2 (two) times a day Use in each nostril as directed, Disp: 30 mL, Rfl: 5 ??? cetirizine (ZyrTEC) 10 mg tablet, Take 1 tablet (10 mg total) by mouth nightly, Disp: 30 tablet, Rfl: 0 ??? fluticasone propionate (FLONASE) 50 mcg/actuation nasal spray, Administer 1 spray into each nostril 2 (two) times a day, Disp: 16 g, Rfl: 5 Allergies Allergies Allergen Reactions ??? Epinephrine Syncope [...] Lumbago ??? Chronic middle ear effusion, left Past Medical History: Diagnosis Date ??? Arthritis ??? Asthma ??? Eye disease ??? Hypercholesteremia ??? Hypertension ??? Osteoarthritis ??? Personal history of other diseases of the circulatory system History of hypertension - (Added by TW Conv) ??? Personal history of other diseases of the respiratory system History of asthma - (Added by TW Conv) ??? Spinal stenosis lumbar ??? V-tach (CMS/HCC) Past Surgical History: Procedure Laterality Date ??? BACK SURGERY ??? CARDIAC CATHETERIZATION 2012 ??? CATARACT EXTRACTION, BILATERAL ~2013, 2014 ??? HIP SURGERY Left 05/28/2018 LJOSE ARNETT ??? MOHS SURGERY multiple ??? POSTERIOR LAMINECTOMY / DECOMPRESSION LUMBAR SPINE 2015 ??? CT REMOVAL GALLBLADDER 2017 ??? ROTATOR CUFF REPAIR ??? SHOULDER SURGERY 2011 rotator cuff repair ??? TOTAL HIP ARTHROPLASTY [...] Intramuscular 08/11/2016, 07/09/2017 ??? Influenza, Unspecified 08/02/2019 Assessment/Plan Review of Systems Review of Systems Constitutional: Negative for appetite change, chills, fever and unexpected weight change. HENT: Positive for ear pain. Negative for hearing loss, trouble swallowing and [...] equal, round, and reactive to light. Neck: Musculoskeletal: Normal range of motion. Cardiovascular: Rate and Rhythm: Normal rate and regular rhythm. Pulses: Normal pulses. Heart sounds: Normal heart sounds. Pulmonary: Effort: Pulmonary effort is normal. Breath sounds: Normal breath sounds. Abdominal: General: Bowel sounds are normal. Palpations: Abdomen is soft. Tenderness: There is no abdominal tenderness. There is no guarding. Musculoskeletal: Normal range of motion. Lymphadenopathy: Head: Right side of head: No submental, submandibular, tonsillar, preauricular, posterior auricular or occipital adenopathy. Left side of head: No submental, submandibular, tonsillar, preauricular, posterior auricular or occipital adenopathy. Skin: General: Skin is warm and dry. [...] content normal. Judgment: Judgment normal. Vitals BP 140/80 (BP Location: Left arm, Patient Position: Sitting) Pulse 76 Ht 175.3 cm (5' 9 ) Wt 92.5 kg (204 lb) BMI 30.13 kg/m?? Wt Readings from Last 3 Encounters: 09/09/20 92.5 kg (204 lb) 07/28/20 93.9 kg (207 lb) 07/16/20 90.7 kg (200 lb) Body mass index is 30.13 kg/m??. Assessment and Plan Diagnoses and all orders for this visit: Chronic middle ear effusion, left (Primary) Assessment & Plan: Nasal sprays and OTC allergy meds daily As pain seems to worsen overnight advised to elevated HOB to see if this alleviates symptoms No oral steroids given today given patient denies any improvement with prior steroids Other orders - fluticasone propionate (FLONASE) 50 mcg/actuation nasal spray; Administer 1 spray into each nostril 2 (two) times a day - azelastine (ASTELIN) 137 mcg (0.1 %) nasal spray; Administer 1 spray into each nostril 2 (two) times a day Use in each nostril as directed - cetirizine (ZyrTEC) 10 mg tablet; Take 1 tablet (10 mg total) by mouth nightly Recommendations and Follow up Ariadne Vail NP ER OPERATOR documented in this encounter Miscellaneous Notes * Assessment & Plan Note - Ariadne Vail NP - 09/09/2020 4:41 PM LINTER OPERATOR Associated Problem(s): Chronic middle ear effusion, left Nasal sprays and OTC allergy meds daily As pain seems to worsen overnight advised to elevated HOB to see if this alleviates symptoms No oral steroids given today given patient denies any improvement with prior steroids ER OPERATOR documented in this encounter Plan of Treatment Not on file documented as of this encounter Goals Goal Patient Goal Type Associated Problems Recent Progress Patient-Stated? Author CCM Chronic Pain Care Plan Chronic Care Management Worsening( 8:02 AM LINTER OPERATOR) No Chika Watters, RN Note: Problem: Chronic Pain Goals: 1. Minimize further functional decline 2. Maximize quality of life 3. Control pain Strategies: - Activity/exercise program recommendation - Conservative stepwise pain medicine strategy with multi-disciplinary approach - Recommend healthy lifestyle strategies and compensatory methods as needed documented as of this encounter Visit Diagnoses Diagnosis Chronic middle ear effusion, left- Primary documented in this encounter Care Teams Gauntlet Pairer Relationship Specialty Start Date End Date Bao Pierre MD [address] [address] PCP - General 12/22/16 documented as of this encounter
--- OUTSIDE RECORDS SUMMARY | 2024-10-01 08:43 | XMS_ITS | Encounter Summary ---
Author Organization [facility] Address [address] [place] [address] Phone Care Team Providers Care Senior Service Technician Name Role Phone Geoff Pierre MD Primary Care Provider [phone] Encounter Details Date Type Department Care Team (Late st Contact Info) Description 10/22/2020 10:40 AM AERIAL PHOTOGRAMMETRIST Telemedicine [facility] Cardiology [address] [facility] Medical Office [address] [place] [address] Chris Garcia MD [address] [place], [place] [id number] History of percutaneous coronary intervention (Primary Dx); Mixed hyperlipidemia; Essential hypertension; VT (ventricular tachycardia) (CMS/HCC); Dizziness; Status post insertion of drug eluting coronary artery stent; Abnormal computed tomography angiography (CTA); Positive cardiac stress test; Coronary artery disease involving [place] coronary artery of [place] heart without angina pectoris; Paroxysmal ventricular tachycardia (CMS/HCC) Social History Tobacco Use Types Packs/Day Years [...] on file Legal Sex Male 9:03 PM AERIAL PHOTOGRAMMETRIST Gender Identity Not on file Sexual Orientation Straight 10/15/2019 10 :34 PM AERIAL PHOTOGRAMMETRIST documented as of this encounter Ordered Prescriptions Prescription Sig Dispense Quantity Refills Last Filled Start Date End Date clopidogreL (PLAVIX) 75 mg tablet Take 1 tablet (75 mg total) by mouth daily 90 tablet 3 10/22/2020 03/31/2021 rosuvastatin (CRESTOR) 40 mg tablet Take 1 tablet (40 mg total) by mouth daily 90 tablet 3 10/22/2020 04/18/2024 documented in this encounter Progress Notes * Chris Garcia MD - 10/22/2020 12:00 AM CST Date: 10/22/2020 Patient Name: ILSA ALVARES Date of : 1935 Date of Visit: 10/22/2020 This was a telemedicine visit with Ilsa Alvares which took place via telephone. During the visit, Iwas located in my home office and the patient was located at his home in the [facility]. Thesession started at 9:50 and ended at 10:01. The patient has been informed that the visit may not be secure and acknowledged the information. The option of participating in a telephone or video visit during the [address] [facility] was explained to them. After being given an opportunity to ask questions about and discuss this type of visit, they verbally consented to proceeding with the telephone/video visit and understand that this service replaces an office visit. HISTORY OF PRESENT ILLNESS: Today we are seeing Mr. Ilsa Alvares for evaluation of coronary artery disease. Since we have last seen Mr. Alvares, I'm doing wonderfully. He denies any chest pains or shortness of breath. He has been very active, with his only limitation his back. He denies any PND, orthopnea, palpitations, and he has not had any lightheaded episodes. CURRENT MEDICATIONS: He has been taking all of his medicines faithfully which include the followin. Uroxatral 10 mg a day. 2. Baby aspirin 1 pill a day. 3. Plavix 75 mg a day. 4. Crestor 40 mg a day. PHYSICAL EXAMINATION: VITAL SIGNS: We do not have any vital signs on him. DIAGNOSTIC DATA: In May we have some blood values insofar as his renal function was normal with a BUN of 25, creatinine 0.93, and we have a cholesterol of 113 and an LDL of 49 with a normal hematocrit. IMPRESSION: This gentleman is doing beautifully. He offers no complaints to suggest active ischemia or LV dysfunction. His medicines have been stable. PLAN: In this setting, our plans are going to be: 1. Continue current therapy. 2. We are going to renew his medicines. 3. We will see him back in 6 months. 4. EKG. Further recommendations forthcoming. PROBLEM LIST: 1. Left anterior descending drug-eluting stent December 2019. 2. Nonsustained ventricular tachycardia. 3. High cholesterol. 4. Hypertension. 5. Sinus bradycardia. Further recommendations forthcoming. ELECTRONICALLY SIGNED - 10/22/2020 01:10 PM Chris Garcia M.D. space systems operations manager Division of Cardiology SN/tm cc: GEOFF PIERRE M.D. / AL PHOTOGRAMMETRIST documented in this encounter Plan of Treatment Not on file documented as of this encounter Goals Goal Patient Goal Type Associated Problems Recent Progress Patient-Stated? Author CCM Chronic Pain Care Plan Chronic Care Management Worsening( 8:02 AM AERIAL PHOTOGRAMMETRIST) Chika Tracy, RN Note: Problem: Chronic Pain Goals: 1. Minimize further functional decline 2. Maximize quality of life 3. Control pain Strategies: - Activity/exercise program recommendation - Conservative stepwise pain medicine strategy with multi-disciplinary approach - Recommend healthy lifestyle strategies and compensatory methods as needed documented as of this encounter Visit Diagnoses Diagnosis History of percutaneous coronary intervention- Primary Mixed hyperlipidemia Essential hypertension Unspecified essential hypertension VT (ventricular tachycardia) (HCC) Paroxysmal ventricular tachycardia Dizziness Dizziness and giddiness Status post insertion of drug eluting coronary artery stent Abnormal computed tomography angiography (CTA) Positive cardiac stress test Coronary artery disease involving [place] coronary artery of [place] heart without angina pectoris Paroxysmal ventricular tachycardia (HCC) Paroxysmal ventricular tachycardia documented in this encounter Discontinued Medications Medication Sig Discontinue Reason Start Date End Da te clopidogreL (PLAVIX) 75 mg tablet Take 1 tablet (75 mg total) by mouth daily Reorder 12/03/2019 10/22/2020 rosuvastatin (CRESTOR) 40 mg tablet Take 1 tablet (40 mg total) by mouth daily Reorder 12/03/2019 10/22/2020 documented as of this encounter Care Teams Senior Service Technician Relationship Specialty Start Date End Date Geoff Pierre MD [address] [facility] [address] [place] [address] PCP - General 12/22/16 documented as of this encounter
--- OUTSIDE RECORDS SUMMARY | 2024-10-01 08:44 | XMS_ITS | Encounter Summary ---
Author Organization [facility] Address [address] [place] [address] Care Team Providers Care Manager Desktop Name Role Phone Bao Pierre MD Primary Care Provider [phone] Reason for Visit * Reason Comments Earache Encounter Details Date Type Department Care Team (Late st Contact Info) Description 07/28/2020 9:30 AM CDT Office Visit [facility] [address] [facility] [address] [place] [address] Bao Pierre MD [address] [facility] [address] [place] [address] Ear pain, left (Primary Dx) Social History Tobacco Use [...] on file Legal Sex Male 9:03 PM POLE SHAVER HELPER Gender Identity Not on file Sexual Orientation Straight 10/15/2019 10 :34 PM POLE SHAVER HELPER documented as of this encounter Last Filed Vital Signs Vital Sign Reading Time Taken Comments Blood Pressure 105/60 07/28/2020 10:08 AM CDT Pulse 73 07/28/2020 10:08 AM CDT Temperature - - Respiratory Rate - - Oxygen Saturation - - Inhaled Oxygen Concentration - - Weight 93.9 kg (207 lb) 07/28/2020 10:08 AM CDT Height 175.3 cm (5' 9 ) 07/28/2020 10:08 AM CDT Body Mass Index 30.57 07/28/2020 10:08 AM CDT documented in this encounter Ordered Prescriptions Prescription Sig Dispense Quantity Refills Last Filled Start Date End Date methylPREDNISolone (MEDROL DOSEPACK) 4 mg Dosepack Take as directed on package. 21 tablet 07/28/2020 0 cefuroxime (CEFTIN) 250 mg tablet Take 1 tablet (250 mg total) by mouth 2 (two) times a day 20 tablet 07/28/2020 1 documented in this encounter Progress Notes * Bao Pierre MD - 07/28/2020 9:30 AM CDT Images from the original note were not included. Subjective/Objective Patient ID: Frandy Alvares is a 85 y.o. male. Chief Complaint Earache HPI Ear pain Going on 4 weeks Has been using otc ear drops, with no relief No fever No chills NO headache Past Surgical History: Procedure Laterality Date ??? BACK SURGERY ??? CARDIAC CATHETERIZATION 2012 ??? CATARACT EXTRACTION, BILATERAL ~2013, 2014 ??? HIP SURGERY Left 05/28/2018 DIMITRIOS ARNETT ??? MOHS SURGERY multiple ??? POSTERIOR LAMINECTOMY / DECOMPRESSION LUMBAR SPINE 2015 ??? [place] REMOVAL GALLBLADDER 2017 ??? ROTATOR CUFF REPAIR [...] ??? Drug use: Never Comment: denies CBD Current Outpatient Medications Medication Sig ??? alfuzosin ER (UROXATRAL) 10 mg 24 hr tablet Take 10 mg by mouth daily. ??? aspirin 81 mg enteric coated tablet Take 81 mg by mouth daily ??? calcium phosphate-vitamin D3 250 mg calcium- 500 unit tablet,chewable Take by mouth ??? clopidogreL (PLAVIX) 75 mg tablet Take [...] by mouth daily ??? UNABLE TO FIND prevagen daily for memory Review of Systems Patient Vital Signs for the past 24 hrs: BP Pulse Height Weight 07/28/20 1008 105/60 73 175.3 cm (5' 9 ) 93.9 kg (207 lb) Physical Exam HENT: Right Ear: Hearing, ear canal and external ear normal. Tympanic membrane is scarred. Left Ear: Hearing, ear canal and external ear normal. A middle ear effusion is present. Tympanic membrane is not erythematous, retracted or bulging. Assessment/Plan Diagnoses and all orders for this visit: Ear pain, left (H92.02) (Primary) Comments: Will give cefuroxime and Medrol Dosepak at this time Labs No results found for: HGBA1C No results found for: POCCHOL, POCHDL, POCTRIG, POCLDL, POCNONHDL Lab Results Component Value Date COLORU Yellow 05/02/2019 CLARITYU Clear 05/02/2019 GLUCOSEUR Negative 05/02/2019 BILIRUBINUR Negative 05/02/2019 KETONESU Trace 05/02/2019 SPECGRAVU 1.021 05/02/2019 BLOODUR Negative 05/02/2019 UROBILINOGEN <2.0 05/02/2019 documented in this encounter Plan of Treatment Not on file documented as of this encounter Goals Goal Patient Goal Type Associated Problems Recent Progress Patient-Stated? Author CCM Chronic Pain Care Plan Chronic Care Management Worsening( 8:02 AM POLE SHAVER HELPER) Chika Tracy, RN Note: Problem: Chronic Pain Goals: 1. Minimize further functional decline 2. Maximize quality of life 3. Control pain Strategies: - Activity/exercise program recommendation - Conservative stepwise pain medicine strategy with multi-disciplinary approach - Recommend healthy lifestyle strategies and compensatory methods as needed documented as of this encounter Visit Diagnoses Diagnosis Ear pain, left- Primary documented in this encounter Care Teams Manager Desktop Relationship Specialty Start Date End Date Bao Pierre MD [address] [address] PCP - General 12/22/16 documented as of this encounter
--- OUTSIDE RECORDS SUMMARY | 2024-10-01 08:44 | XMS_ITS | Encounter Summary ---
Author Organization [facility] Address [address] [place] [address] Phone Care Team Providers Care Fur Nailer Name Role Phone Bao Pierre MD Primary Care Provider [phone] Encounter Details Date Type Department Care Team (Late st Contact Info) Description 01/30/[address] [facility] Cardiology [address] [facility] Medical Office [address] [place] [address] Chris Garcia MD [address] [facility] [address] [place] [address] Social History Tobacco Use Types [...] on file Legal Sex Male 9:03 PM CLOTH FEEDER Gender Identity Not on file Sexual Orientation Straight 10/15/2019 10 :34 PM CLOTH FEEDER documented as of this encounter Miscellaneous Notes * Telephone Encounter - Jennifre Villegas RN - 01/30/2020 1:48 PM CDT PER SN: call rn urgent care Stop imdur cut metoprolol 12.5 mg daily Get lab work and ekg tomorrow when he see's going to see Dr Pierre. And we will mail mct and order lennie Lucas verbalized understanding. Also she stated Pt is not taking mevacor documented in this encounter Plan of Treatment Not on file documented as of this encounter Goals Goal Patient Goal Type Associated Problems Recent Progress Patient-Stated? Author CCM Chronic Pain Care Plan Chronic Care Management Worsening( 8:02 AM CLOTH FEEDER) No Chika Watters, RN Note: Problem: Chronic Pain Goals: 1. Minimize further functional decline 2. Maximize quality of life 3. Control pain Strategies: - Activity/exercise program recommendation - Conservative stepwise pain medicine strategy with multi-disciplinary approach - Recommend healthy lifestyle strategies and compensatory methods as needed documented as of this encounter Visit Diagnoses Not on filedocumented in this encounter Care Teams Fur Nailer Relationship Specialty Start Date End Date Bao Pierre MD [address] [facility] [address] [place] [address] PCP - General 12/22/16 documented as of this encounter
--- OUTSIDE RECORDS SUMMARY | 2024-10-01 08:44 | XMS_ITS | Encounter Summary ---
Author Organization [facility] [place] Address [address] [place] [address] Phone Care Team Providers Care Rehabilitation Inspector Name Role Phone Bao Pierre MD Primary Care Provider [phone] Reason for Visit * Diagnostic Imaging (Routine) - Closed Specialty Diagnoses / Procedures Referred By Ileanaac mark Referred To Contact Diagnoses History of percutaneous coronary intervention Mixed hyperlipidemia Dizziness Procedures US Carotids Duplex Bilateral Jerod Garcia MD Phone: tel: fax: Referral ID Status Reason Start Date Expiration Date Visits Re quested Visits Authorized [id number] Closed 01/30/2020 08/10/2021 1 1 Encounter Details Date Type Department Care Team (Latest Contact Info) Description 02/07/2020 10:30 AM CDT Ancillary Procedure [facility] [address] [place] [address] Jerod Garcia MD [address] [place] [address] History of percutaneous coronary intervention; Mixed hyperlipidemia; Dizziness Social History Tobacco Use Types Packs/Day Years [...] on file 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 Author CCM Chronic Pain Care Plan Chronic Care Management Worsening( 8:02 AM MANAGER ENERGY) Chika Tracy, RN Note: Problem: Chronic Pain Goals: 1. Minimize further functional decline 2. Maximize quality of life 3. Control pain Strategies: - Activity/exercise program recommendation - Conservative stepwise pain medicine strategy with multi-disciplinary approach - Recommend healthy lifestyle strategies and compensatory methods as needed documented as of this encounter Procedures Procedure Name Priority Date/Time Associated Diagnosis Comments US CAROTIDS DUPLEX BILATERAL Schedule Routine, Read Routine (OP Routine) 02/07/2020 11:30 AM CDT History of percutaneous coronary intervention Mixed hyperlipidemia Dizziness documented in this encounter Results * US Carotids Duplex Bilateral (02/07/2020 11:30 AM CDT) Anatomical Region Laterality Modality Vascular Bilateral Ultrasound 02/07/2020 10:3 0 AM CDT Narrative 02/10/2020 7:31 AM CDT Patient name: Frandy Alvares Date of test: 02/07/2020 Hospital #: [id number] ?Location: [facility] Ref Physician(s): , JEROD GARCIA MD Interpreted by: Jayde Wiley MD Tech: Carlee Hernandez RVT Type of Test: Carotid Doppler Evaluation Procedure: Duplex ultrasonographic examination of bilateral carotid/vertebral vascular system. Indications: dizziness / ??/ VELOCITY: RIGHT: Distal ICA: 64 / 19 Mid ICA: 105 / 30 Prox ICA: 134/42 ECA: 129 Dist CCA: 69/19 Prox CCA: 108/25 ICA/CCA: 1.94 Vertebral: antegrade Vertebral: 42 LEFT: Dist ICA: 101/34 Mid ICA: 83/28 Prox ICA: 55/13 ECA: 0 Distal CCA: 68/16 Prox CCA: 86/21 ICA/CCA: 0.81 Vertebral: antegrade Vertebral: 49 STENOSIS: RIGHT: ECA: CCA Prox: CCA Dist: ICA Prox: 50-69% ICA Mid: ICA dist: Bulb: LEFT: ECA: CCA Prox: CCA Dist: ICA Prox: < 50% ICA Mid: ICA dist: Bulb: Right Findings: * Irregular heterogeneous plaque in the proximal internal carotid artery (50-69% stenosis). * No evidence of significant atherosclerosis in the carotid artery bulb. * No evidence of significant atherosclerosis in the external carotid artery. * No evidence of significant atherosclerosis in the common carotid artery. * Normal antegrade flow in the vertebral artery. Left Findings: * Irregular heterogeneous plaque in the proximal internal carotid artery (<50% stenosis). * No evidence of significant atherosclerosis in the carotid artery bulb. * No evidence of significant atherosclerosis in the external carotid artery. * No evidence of significant atherosclerosis in the common carotid artery. * Normal antegrade flow in the vertebral artery. Summary: 1. Moderate atherosclerosis in the right internal carotid artery (50-69% stenosis). 2. Mild atherosclerosis in the left internal carotid artery (<50% stenosis). 3. No evidence of significant atherosclerosis in the right and left carotid artery bulbs. 4. No evidence of significant atherosclerosis in the right and left external carotid arteries. 5. No evidence of significant atherosclerosis in the right and left common carotid arteries. 6. Normal antegrade flow in the right and left vertebral arteries. Confirmed on ??02/10/2020 - 7:31 AM by Jayde Wiley MD I have personally reviewed and interpreted this study. Procedure Note de Jayde Chen MD - 02/10/2020 Patient name: Frandy Alvares Date of test: 02/07/2020 Hospital #: [id number] Location: [facility] Ref Physician(s): , JEROD GARCIA MD Interpreted by: Jayde Wiley MD Tech: Carlee Hernandez, T Type of Test: Carotid Doppler Evaluation Procedure: Duplex ultrasonographic examination of bilateral carotid/vertebral vascular system. Indications: dizziness / / VELOCITY: RIGHT: Distal ICA: 64 / 19 Mid ICA: 105 / 30 Prox ICA: 134/42 ECA: 129 Dist CCA: 69/19 Prox CCA: 108/25 ICA/CCA: 1.94 Vertebral: antegrade Vertebral: 42 LEFT: Dist ICA: 101/34 Mid ICA: 83/28 Prox ICA: 55/13 ECA: 0 Distal CCA: 68/16 Prox CCA: 86/21 ICA/CCA: 0.81 Vertebral: antegrade Vertebral: 49 STENOSIS: RIGHT: ECA: CCA Prox: CCA Dist: ICA Prox: 50-69% ICA Mid: ICA dist: Bulb: LEFT: ECA: CCA Prox: CCA Dist: ICA Prox: < 50% ICA Mid: ICA dist: Bulb: Right Findings: * Irregular heterogeneous plaque in the proximal internal carotid artery (50-69% stenosis). * No evidence of significant atherosclerosis in the carotid artery bulb. * No evidence of significant atherosclerosis in the external carotid artery. * No evidence of significant atherosclerosis in the common carotid artery. * Normal antegrade flow in the vertebral artery. Left Findings: * Irregular heterogeneous plaque in the proximal internal carotid artery (<50% stenosis). * No evidence of significant atherosclerosis in the carotid artery bulb. * No evidence of significant atherosclerosis in the external carotid artery. * No evidence of significant atherosclerosis in the common carotid artery. * Normal antegrade flow in the vertebral artery. Summary: 1. Moderate atherosclerosis in the right internal carotid artery (50-69% stenosis). 2. Mild atherosclerosis in the left internal carotid artery (<50% stenosis). 3. No evidence of significant atherosclerosis in the right and left carotid artery bulbs. 4. No evidence of significant atherosclerosis in the right and left external carotid arteries. 5. No evidence of significant atherosclerosis in the right and left common carotid arteries. 6. Normal antegrade flow in the right and left vertebral arteries. Confirmed on 02/10/2020 - 7:31 AM by Jayde Wiley MD I have personally reviewed and interpreted this study. Jerod Garcia MD [facility] PROCEDURES Final Resul t documented in this encounter Visit Diagnoses Diagnosis History of percutaneous coronary intervention Mixed hyperlipidemia Dizziness Dizziness and giddiness documented in this encounter Care Teams Rehabilitation Inspector Relationship Specialty Start Date End Date Bao Pierre MD [address] [address] PCP - General 12/22/16 documented as of this encounter
--- OUTSIDE RECORDS SUMMARY | 2024-10-01 08:44 | XMS_ITS | Encounter Summary ---
Author Organization [facility] Healthcare Address [address] [place] [address] Care Team Providers Care Jig And Fixture Repairer Name Role Phone Bao Pierre MD Primary Care Provider [phone] Encounter Details Date Type Department Care Team (Late st Contact Info) Description 12/03/2019 10:25 AM SANITARIAN INSPECTOR - 12/03/2019 12:20 PM SANITARIAN INSPECTOR Surgery [facility] [address] [place] [address] Irina James MD [address] [facility] [address] [place] [address] LEFT HEART CATHETERIZATION WITH CORONARY ANGIOGRAPHY AND WITH OR WITHOUT LEFT VENTRICULOGRAM [id number] Surgery Details Date/Time Status Location OR Service Patient Class Case Class Case Type Trauma Case? 12/03/2019 10:25 AM Posted [facility] CARDIAC DIVORCE ATTORNEY CCL 01 Cardiovascular Outpatient Elective Panel 1 Procedure LRB Anes Op Region Wound Class Comments LEFT HEART CATHETERIZATION W ITH CORONARY ANGIOGRAPHY AND WITH OR WITHOUT LEFT VENTRICULOGRAM [id number] N/A Surgeon Surgeon Role Service Panel Irina James MD Primary Cardiovascular 1 Alexandre Griffith MD Fellow Cardiovascular 1 Mike Stark MD Fellow Cardiovascular 1 Case Notes + CTA, [id number] arrival needs CBCE- documented in this encounter Social History Tobacco Use Types Packs/Day Years [...] on file Legal Sex Male 9:03 PM SANITARIAN INSPECTOR Gender Identity Not on file Sexual Orientation Straight 10/15/2019 10 :34 PM SANITARIAN INSPECTOR documented as of this encounter Last Filed Vital Signs Vital Sign Reading Time Taken Comments Blood Pressure 130/61 12/03/2019 12:10 PM SANITARIAN INSPECTOR Pulse 56 12/03/2019 12:10 PM SANITARIAN INSPECTOR Temperature 37 ??C (98.6 ??F) 12/03/2019 8:24 AM SANITARIAN INSPECTOR Respiratory Rate 24 12/03/2019 12:10 PM SANITARIAN INSPECTOR Oxygen Saturation 97% 12/03/2019 12:10 PM SANITARIAN INSPECTOR Inhaled Oxygen Concentration - - Weight 94 kg (207 lb 3.7 oz) 12/03/2019 8:24 AM SANITARIAN INSPECTOR Height 175.3 cm (5' 9 ) 12/03/2019 8:24 AM SANITARIAN INSPECTOR Body Mass Index 30.6 12/03/2019 8:24 AM SANITARIAN INSPECTOR documented in this encounter Discharge Instructions * Discharge Instructions* Jenae Banerjee RN - 12/03/2019 12:45 PM SANITARIAN INSPECTOR Discharge Instructions For Cardiac Catheterization (Femoral Approach) Please use this as a guide for caring for yourself at home after your procedure. Take it easy for the next few days. ??? Gentle walking on level ground is OK. ??? You can eat your normal diet; remember to follow any diet restrictions your doctor has recommended. ??? You may have some bruising of the skin near the puncture site. This is common. ??? Remove the Band-aid or dressing on your groin tomorrow. ??? You may shower tomorrow. Be careful to avoid slipping, your leg may be stiff. ??? Continue your home medications on your regular schedule Avoid the Following: ??? Do not do strenuous or intense activities. Do not do aerobics. No stair stepping. No rowing. NoBicycling. Do not jog or run. No bowling, dancing, swimming, or sexual intercourse. If you are involved in other activities, ask your nurse or doctor first if it is OK. ??? Do not sit or soak in a bath, hot tub, pool of water, or go swimming. ??? Do not lift anything heavier than 5lbs for 7 days. ??? Do not drive for the next 7 days. ??? Do not make any legal decisions for the next 24 hours ??? Avoid climbing stairs. If you must climb stairs, use your non-catheterized leg to go up the step, and then bring the other leg up to the same step. ??? Do not strain at bowel movements. If you tend to be constipated please start a stool softener that works for you. You may restart the above activities on: MondayDecember 09 Call your doctor immediately for any of the following rare but serious problems. If you are unable to reach your doctor go to the nearest Emergency Room. ??? Bleeding from catheterization puncture site: apply direct pressure with a clean cloth. If the bleeding doesn???t stop with gentle pressure call 911. ??? A knot, bruise, or lump that appears to be increasing in size or getting worse rather than disappearing. ??? Your catheterized leg is cold, pale, or numb when compared to the opposite leg ??? IV dye reactions are rare but can occur. If you develop a rash, hives, or itching of the skin or have throat tightness, notice swelling of the tongue or lips you may be having a dye reaction. For routine questions or concerns regarding your care after your catheterization please feel free to call us. From 7am-5pm M-F call our Outpatient Nurse Coordinators at [phone]. If you need to speak to someone after 5pm please call [facility] at [phone] and ask the pilling machine operator topage the Cardiac Metrology Manager Fellow national dedicated truck driver. TARIAN INSPECTOR documented in this encounter Medications at Time of Discharge aspirin 81 mg enteric coated tablet Take 1 tablet (81 mg total) by mouth daily glucosamine-chond roitin 500-400 mg tablet Take 1 tablet by mouth daily alfuzosin ER (UROXATRAL) 10 mg 24 hr tabletIndications :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 Take 1 tablet (10 mg total) by mouth daily 4 amoxicillin (amoxicillin) 500 mg tablet/capsuleInd ications:Prophyla xis, Medical Take 1 tablet/capsule (500 mg total) by mouth as directed TAKE 4 PILL 1 HOUR BEFORE DENTAL APPOINTMENT. 12 tablet/capsul e 11/08/2019 0 aspirin 81 mg enteric coated tablet ADULT ASPIRIN EC LOW STRENGTH 81 MG ORAL TABLET DELAYED RELEASE 09/13/2013 1 yzky-cpc-wjd-dayana- pesy-lbqf-jzn (Fiber 6) 1,000 mg tablet FIBER 09/13/2013 1 calcium phosphate-vitamin D3 250 mg calcium- 500 unit tablet,chewable Take by mouth 1 clopidogreL (PLAVIX) 75 mg tablet Take 1 tablet (75 mg total) by mouth daily 90 tablet 3 12/03/2019 1 finasteride (PROSCAR) 5 mg tabletIndications :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 Take 1 tablet (5 mg total) by mouth daily 4 glucosamine sulfate 2KCl 500 mg capsule GLUCOSAMINE CAPSULE 09/13/2013 1 glucosamine sulfate 500 mg capsule GLUCOSAMINE CAPSULE 09/13/2013 3 inulin 2 gram tablet,chewable Take 1 tablet by mouth 2 (two) times a day 3 isosorbide mononitrate ER (IMDUR) 30 mg 24 hr tablet Take 0.5 tablets (15 mg total) by mouth daily 15 tablet 3 11/08/2019 0 lisinopril-hydroC HLOROthiazide (ZESTORETIC) 10-12.5 mg per tablet 10/02/1969 2 metoprolol XL (TOPROL-XL) 25 mg 24 hr tablet Take 1 tablet (25 mg total) by mouth daily 30 tablet 3 11/08/2019 0 naproxen sodium 220 mg capsule ALEVE CAPSULE 09/13/2013 02 1 rosuvastatin (CRESTOR) 40 mg tablet Take 1 tablet (40 mg total) by mouth daily 90 tablet 3 12/03/2019 1 documented as of this encounter Ordered Prescriptions Prescription Sig Dispense Quantity Refills Last Filled Start Date End Date rosuvastatin (CRESTOR) 40 mg tablet Take 1 tablet (40 mg total) by mouth daily 90 tablet 3 12/03/2019 10/22/2020 clopidogreL (PLAVIX) 75 mg tablet Take 1 tablet (75 mg total) by mouth daily 90 tablet 3 12/03/2019 10/22/2020 documented in this encounter Discharge Disposition Disposition Code Departure Means Destination Discharge to home or self care documented in this encounter Progress Notes * Lian Nance NP - 12/03/2019 11:18 AM CST C w/ PCI on 12/03/2019, 6 RFA angio, 1 ROSELYN to LAD Pt has no complaints at this time, right groin is clean, flat and dry with dressing intact. Pt instructed to continue all previously prescribed medications, including aspirin. Also instructedon beginning a new medication, plavix that should be taken daily. Will stop lovastatin and start high intensity statin, rosuvastatin 40mg. Pt denies ever being on this medication or adverse reaction.Discussed the need to ensure that plavix is taken everyday and to ensure no missed doses. Educated on antiplatelet effects of plavix and its benefit to decrease the risk for cardiac . Pt verbalized understanding. Discussed Referral to Cardiac Rehab. Script for rosuvastatin and clopidogrel faxed to mobile pharmacy and will be delivered to bedside prior to discharge. All questions and concerns were answered. Follow up appt with Dr. Garcia in 2 weeks, office to notify pt of date/time Post-PCI labs will be drawn at 1400 , pt will be discharged home if appropriate and no further issues arise. TARIAN INSPECTOR TARIAN INSPECTOR documented in this encounter Miscellaneous Notes * Perioperative Nursing Note - Jenae Banerjee RN - 12/03/2019 3:05 PM SANITARIAN INSPECTOR Follow up appointment schedules with Referring MD: Dr. Garcia Date: TBD, will be in approx 2 weeks. Office to notify patient of date/time. Stent implant card completed and given to patient. Post stent teaching completed. Given & reviewed written [facility] patient information guides: Post Intravascular Stent Placement ; Important Information About Your Stent Given and reviewed cardiac rehab information: [facility] brochure Cardiac Rehab .Patient and family express understanding of post stent teaching. New medication written for Clopidogrel 75 mg daily and Rosuvastatin 40 mg daily New medication teaching completed with patient and care givers, questions answered, patient and family verbalize understanding. New Medication prescription(s) filled by [facility]. Post Procedure H&H and Creatinine sent to lab. Reviewed by Lian MONTERROSO. Patient approved for discharge. Patient leaving [facility] via wheelchair accompanied by transport. Right groin site C/D/I. No bleeding. No hematoma. Pulses palpable. Patient ambulated to restroom and voided without complication. VSS. AVSreviewed and all questions answered. PIVs removed. Patient discharged with all belongings. TARIAN INSPECTOR * Pre-Sedation Documentation - Lian Nance NP - 12/03/2019 7:54 AM CST Sedation Plan ASA 2 - Mild systemic disease Risks, benefits, and alternatives discussed with patient. History of sedation/Anesthesia complications:No History of transfusion reaction: No Current Facility-Administered Medications Medication Dose Route Frequency Provider Last Rate Last Dose ??? aspirin chewable tablet 81 mg 81 mg oral Once Lian Nance NP Laboratory review: Chemistry BMP No results found for: GLUCOSE, CALCIUM, SODIUM, POTASSIUM, CO2, BUNSER, CREATININE and CBC:No results found for: WBC, RBC, HGB, HCT, MCV, MCH, MCHC, RDW, RDWCV, RDWSD, MPV, NRBC, NRBCABS, NRBCPCT Current meds/Labs/Test Results that may affect sedation reviewed: Yes Last PO Intake: solids 12/02/2019 @ 1500, 16oz water 12/03/2019 @ 0600 HEENT Exam: negative Sedation Plan: Moderate Cosigned by Irina James MD at 12/03/2019 8:18 AM SANITARIAN INSPECTOR TARIAN INSPECTOR TARIAN INSPECTOR * Pre-Cardiac Catheterization Workup and H&P - Lian Nance NP - 11/29/2019 11:11 AM CST PRE-CARDIAC CATHETERIZATION WORKUP Patient Name: Frandy Alvares Patient Patient : [id number] Date of Procedure: 12/03/2019 ORDERING INSTALL AND REPAIR TECHNICIAN: Surgeon(s): Irina James MD Procedure(s): LEFT HEART CATHETERIZATION WITH CORONARY ANGIOGRAPHY AND WITH OR WITHOUT LEFT VENTRICULOGRAM [id number] Requested Diagnostic: [] Coronary Angiograms Only [x] Left Heart Cath [] LV Gram [] Right Heart Cath [] Right and Left Heart Cath Valve Study: [] Aortic [] Mitral [] Pulmonic [] Tricuspid [] Pulmonary HTN Study [] Pericardial Constriction Study [] Congential Study [] Other Study: Requested Intervention: [] Coronary [] FFR [] Percutaneous VAD [] IAPB [] Pericardiocentesis [] Vascular [] Renal Valvuloplasty: [] Aortic [] Mitral [] Pulmonic [] Tricuspid Strucutural Heart: [] ASD/PFO Closure [] VSD Closure [] TAVR [] Other Intervention: NARRATIVE:84 year old male with h/o HTN, HLD, recent VT noted while being monitored for a back injection and on a holter monitor. Patient denies chest pain and SOB. Does notice a vague right sided chest ache. Positive nuclear stress test and CT angio showed approximately 75% stenosis in the distal aspect of the mid left anterior descending coronary. Referred for LHC. artery. ALLERGIES: Epinephrine Topical Iodine Allergy: [x] No [] Yes IV Contrast Allergy: [x] No [] Yes If yes, Premedicated for contrast allergy: [] No [] Yes PRE-Procedure Medications Antiarrhythmic Agent: [] Yes [x] No [] Contraindicated Aspirin: [x] Yes [] No [] Contraindicated Beta Christin (Any): [x] Yes [] No [] Contraindicated Ca Channel Christin (Any): [] Yes [x] No [] Contraindicated Long Acting Nirates (Any): [x] Yes [] No [] Contraindicated Non-Statin (Any): [] Yes [x] No [] Contraindicated Ranolazin: [] Yes [x] No [] Contraindicated Statin (Any): [x] Yes [] No [] Contraindicated Indications for Metrology Manager visit (Select all that apply): [] ACS less than or equal to 24 hours [] ACS greater than 24 hours [x] Stable/Known CAD [] Cardiac Arrhythmia [] Post Cardiac Transplant [] New Onset Angina less than or equal to 2 months [] Suspected CAD [] Worsening Angina [] Cardiomyopathy [] Pre-operative evaluation [] Valvular Disease [] LV Dysfunction [] Evaluation for Exercise Clearance [] Syncope [] Pericardial Disease [] Resuscitated Cardiac Arrest [] Congenital Heart Disease [] Evaluate CAD [] Pre-Transplant Evaluation [x] Abnormal Stress Test [] Pulmonary HTN [] Heart Failure [] Other: Chest Pain Symptom Assessment: [] Typical Angina [x] Atypical Angina [] Non-anginal Chest Pain [] Asymptomatic HISTORY AND RISK FACTORS Family History of Premature CAD: [] Yes [x] No [] Male less than 55 years old [] Female less than 65 years old Relationship: Cerebrovascular Disease: [] Yes [x] No Hypertension: [x] Yes [] No Diabetes Mellitus: [] Yes [x] No Dyslipidemia: [x] Yes [] No Peripheral Arterial Disease: [] Yes [x] No Chronic Lung Disease: [] Yes [x] No Prior Heart Failure: [] Yes [x] No [] CKD [] ESRD [] Dialysis [] HD []PD: Prior NV: [] Yes [x] No If Yes, Most Recent NV Date: Tobacco Use Social History Tobacco Use Smoking Status Former Smoker ??? Types: Pipe ??? Start date: 1965 ??? Last attempt to quit: 10/02/2013 ??? Years since quittin.1 Smokeless Tobacco Never Used Tobacco Comment 5-6 times a day If Current - Every Day and Cigarettes, Amount: Previous Cardiac and Peripheral Interventions: (Include hospital/procedure/most recent date) Cardiac Cath/Prior PCI:[x] Yes [] No If Yes, Most Recent PCI Date: 2013 Report Available: [] Yes [] No [facility]-no coronary disease Prior CABG: [] Yes [x] No If Yes, Most Recent CABG Date: Report Available: [] Yes [] No Valvular Surgery: [] Yes [x] No Report Available: [] Yes [] No (Include percutaneous procedures): Peripheral Intervention: [] Yes [x] No Report Available: [] Yes [] No LABS Results for orders placed or performed in visit on 10/08/19 TSH Result Value Ref Range TSH (Thyrotropin) 2.66 0.27 - 4.20 uIU/mL 2-27-20 WBC HGB HCT pits PT INR PTT Na K+ Glucose BUN Cr HCG 139 4.8 101 26 1.27 Cath/PCI Indication: [] CAD (without Ischemic Sx) [] Stable Angina [] New Onset Angina less than or equal to 2 months [] NSTE-ACS [] Other: [] STEMI Symptom Date: Time: [] Thrombolytic [] Yes [] No If Yes, Start Date Time [] Staged PCI, Anginal symptoms stable on Medical Therapy and restricted activity: Anginal Class within 2 weeks [] CCS I [] CCS II [] CCS III [] CCS IV If AMI: [] Cardiogenic Shock at First Medical Contact [] Systolic Blood Pressure: and Heart Rate: at First Medical Contact [] Cardiac arrest within 24 hours [] Cardiogenic shock within 24 hours [] Cardiogenic shock at start of PCI Heart Failure: [] Yes [x] NO If Yes, Newly Diagnosed: [] Yes [] No [facility] Class: [] Class I [] Class II [] Class III [] Class IV HF Type: [] Diastolic [] Systolic [] Unknown Test Performed (Choose One): [] Exercise Stress Test (w/o imaging) [] Stress Echocardiogram [x] Stress Nuclear [] Stress Imaging w/CMR [] Cardiac CTA If Yes, Result: Result: [] Negative [x] Positive [] Indeterminate IF Positive: Risk/Extent of ischemia: [] Low [x] Intermediate [] High FINDINGSModerate sized area of mild ischemia in inferior wall. ?? 2. Normal left ventricular size and function. LVEF Assessed: [x] Yes [] No If yes, Most recent LVEF55 %: ECHO: Nurse Coordinator: Pilar Kline RN Date: 11-29-19 Time: 1132 PHYSICAL EXAM There were no vitals filed for this visit. General: NAD HEENT: EOMI, oropharynx clear Neck: Supple without thyromegaly Lungs: CTAB Cardiac: RRR, normal S1 and S2, no murmurs/rubs/gallops. JVP not elevated, no LE edema. Abdomen: soft, nontender, nondistended Extremities: warm, no clubbing/cyanosis Neuro: grossly intact Psych: normal affect, mood, judgment Pulses Carotid/Bruit Brachial Radial Femoral/Bruit Popiteal DP PT Left 2+ 2+ 2+ Right 2+ 2+ 2+ EKG: sinus bradycardia IMPRESSION: 84yoM with abnormal stress test and coronary CTA, here for [facility] Clinical Frailty Scale: [] 1: Very Fit [] 2: Well [] 3: Managing Well [x] 4: Vulnerable [] 5: Mildly Frail [] 6: Moderately Frail [] 7: Severely Frail [] 8: Very Severely Frail [] 9: Terminally Ill PLAN: Procedure, risks, benefits and alternatives have been explained to the patient. The patient voiced understanding, consent is signed and orders are written. Form Completed/Reviewed and Assessment Completed by: Name: Lian Nance CATERPILLAR MECHANIC-C Date: 12/03/2019 Time: 0800 Cosigned by Irina James MD at 12/03/2019 8:18 AM SANITARIAN INSPECTOR TARIAN INSPECTOR TARIAN INSPECTOR documented in this encounter Plan of Treatment Not on file documented as of this encounter Goals Goal Patient Goal Type Associated Problems Recent Progress Patient-Stated? Author CCM Chronic Pain Care Plan Chronic Care Management Worsening( 8:02 AM SANITARIAN INSPECTOR) Chika Tracy, RN Note: Problem: Chronic Pain Goals: 1. Minimize further functional decline 2. Maximize quality of life 3. Control pain Strategies: - Activity/exercise program recommendation - Conservative stepwise pain medicine strategy with multi-disciplinary approach - Recommend healthy lifestyle strategies and compensatory methods as needed documented as of this encounter Procedures Procedure Name Priority Date/Time Associated Diagnosis Comments DIFFERENTIAL AUTO Timed 12/03/2019 1:5 3 PM SANITARIAN INSPECTOR CBC WITH AUTO DIFFERENTIAL Timed 12/03/2019 1:53 PM SANITARIAN INSPECTOR BASIC METABOLIC PANEL Timed 12/03/2019 1:53 PM SANITARIAN INSPECTOR LEFT HEART CATHETERIZATION WITH CORONARY ANGIOGRAPHY AND WITH AND WITHOUT LEFT VENTRICULOGRAM Routine 12/03/2019 11:02 AM SANITARIAN INSPECTOR Abnormal computed tomography angiography (CTA) VT (ventricular tachycardia) ([facility]) POCT ACTIVATED CLOTTING TIME, LOW RANGE Routine 12/03/2019 11:01 AM SANITARIAN INSPECTOR POCT ACTIVATED CLOTTING TIME, LOW RANGE Routine 12/03/2019 10:32 AM SANITARIAN INSPECTOR CBC WITHOUT DIFFERENTIAL Routine 12/03/2019 10:20 AM SANITARIAN INSPECTOR CBC WITHOUT DIFFERENTIAL Routine 12/03/2019 8:20 AM SANITARIAN INSPECTOR documented in this encounter Results * Differential, auto (12/03/2019 1:53 PM SANITARIAN INSPECTOR) Neutrophil abs 4.8 1.7 - 6.5 K/cumm [facility] Imm gran abs 0.0 0.0 - 0.1 K/cumm [facility] Lymphocyte abs 1.6 0.8 - 3.3 K/cumm [facility] Monocyte abs 0.2 0.2 - 0.8 K/cumm [facility] Eosinophil abs 0.1 0.0 - 0.5 K/cumm [facility] Basophil abs 0.0 0.0 - 0.1 K/cumm [facility] Neutrophil pct 71.2 % [facility] Comment: Interpretive Data Percent cell count reference ranges are not reported, since discordance with absolute values may lead to misinterpretation of CBC data. Current Interpretive Data was last revised on 2018. Imm gran pct 0.3 % [facility] Comment: Interpretive Data Percent cell count reference ranges are not reported, since discordance with absolute values may lead to misinterpretation of CBC data. Current Interpretive Data was last revised on 2018. Lymphocyte pct 23.4 % [facility] Comment: Interpretive Data Percent cell count reference ranges are not reported, since discordance with absolute values may lead to misinterpretation of CBC data. Current Interpretive Data was last revised on 2018. Monocyte pct 3.7 % [facility] Comment: Interpretive Data Percent cell count reference ranges are not reported, since discordance with absolute values may lead to misinterpretation of CBC data. Current Interpretive Data was last revised on 2018. Eosinophil pct 1.0 % [facility] Comment: Interpretive Data Percent cell count reference ranges are not reported, since discordance with absolute values may lead to misinterpretation of CBC data. Current Interpretive Data was last revised on 2018. Basophil pct 0.4 % [facility] Comment: Interpretive Data Percent cell count reference ranges are not reported, since discordance with absolute values may lead to misinterpretation of CBC data. Current Interpretive Data was last revised on 2018. Blood specimen (specimen) 12/03/2019 1:53 PM SANITARIAN INSPECTOR 12/03/2019 2:01 PM SANITARIAN INSPECTOR us Lian Toro CATERPILLAR MECHANIC LAB BLOOD ORDERABLES Final Re sult [facility] [place] [address] * (ABNORMAL) CBC with auto differential (12/03/2019 1:53 PM SANITARIAN INSPECTOR) WBC 6.7 3.8 - 9.9 K/cumm [facility] Hgb 12.5(L) 13.0 - 17.5 g/dL [facility] Hct 38.0(L) 38.9 - 50.3 % [facility] Plt 122(L) 150 - 400 K/cumm [facility] MPV 10.9 9.1 - 12.3 fL [facility] RBC 3.91(L) 4.30 - 5.80 M/cumm [facility] MCV 97.2(H) 81.3 - 96.4 fL [facility] MCH 32.0 27.1 - 33.3 pg [facility] MCHC 32.9 32.3 - 35.7 g/dL [facility] RDW CV 12.5 11.1 - 14.9 % [facility] RDW SD 45.0 35.7 - 48.1 fL [facility] NRBC abs 0.00 0.00 - 0.01 K/cumm [facility] Blood specimen (specimen) 12/03/2019 1:53 PM SANITARIAN INSPECTOR 12/03/2019 2:01 PM SANITARIAN INSPECTOR Narrative [facility] - 12/03/2019 2:15 PM SANITARIAN INSPECTOR 3 hours post hemostasis us Lian Toro CATERPILLAR MECHANIC LAB BLOOD ORDERABLES Final Re sult Performing Organization Address [facility] Co de Phone Number [facility] Department [place] [address] * (ABNORMAL) Basic metabolic panel (12/03/2019 1:53 PM SANITARIAN INSPECTOR) Pathologist [facility] Sodium 142 135 - 145 mmol/L [facility] Potassium, pl 4.0 3.3 - 4.9 mmol/L [facility] Chloride 105 97 - 110 mmol/L [facility] CO2 28 22 - 32 mmol/L [facility] Anion gap 9 2 - 15 mmol/L [facility] BUN 24 8 - 25 mg/dL [facility] Creatinine 1.05 0.80 - 1.30 mg/dL [facility] Glucose 149 70 - 199 mg/dL [facility] Comment: Interpretive Data Fasting glucose >/= 126 mg/dl is diagnostic for diabetes. ?? Fasting is defined as no caloric intake for at least 8 hours. Fasting glucose between 100 mg/dl to 125 mg/dl is diagnostic of prediabetes. In a patient with classic symptoms of hyperglycemia or hyperglycemic crisis, a random glucose >/= 200 mg/dl is diagnostic for diabetes. In the absence of unequivocal hyperglycemia, results should be confirmed by repeat testing. The classification and Diagnosis of Diabetes Diabetes Care 2017;40 (Suppl. 1):S11. Current interpretive data was last revised 2017. Calcium 8.1(L) 8.5 - 10.3 mg/dL [facility] Blood specimen (specimen) 12/03/2019 1:53 PM SANITARIAN INSPECTOR 12/03/2019 2:01 PM SANITARIAN INSPECTOR Narrative [facility] - 12/03/2019 2:32 PM SANITARIAN INSPECTOR 3 hours post hemostasis us Lian Toro CATERPILLAR MECHANIC LAB BLOOD ORDERABLES Final Re sult Performing Organization Address [facility] Hospital/[facility]/ZIP Co de Phone Number [facility] [place] [address] * LEFT HEART CATHETERIZATION WITH CORONARY ANGIOGRAPHY AND WITH AND WITHOUT LEFT VENTRICULOGRAM (12/03/2019 11:02 AM SANITARIAN INSPECTOR) Anatomical Region Laterality Modality X-Ray Angiograph y Impressions 12/03/2019 5:24 PM SANITARIAN INSPECTOR 1. 60-70% lesion in the mid LAD with moderate diffuse disease, IFR positive at 0.79, status post percutaneous coronary intervention with placement of a 2.5 x 38 mm Xience Henny drug-eluting stent. 2. Mild diffuse disease in the right coronary artery THERAPEUTIC RECOMMENDATIONS: 1. Continue aspirin 81 mg daily indefinitely. 2. Continue clopidogrel 75 mg daily for at least 1 year. 3. Right femoral artery sheath was angiosealed successfully. Patient may sit up in 2 hours. 4. Aggressive risk factor modification and medical therapy for secondary prevention of coronary artery disease. 5. The case was reviewed and discussed with the referring physician and patient. The referring physician will determine the future therapy and follow-up. I was present during the entire procedure and personally dictated or confirmed the above report. Narrative 12/03/2019 5:24 PM SANITARIAN INSPECTOR ?? Cardiovascular Procedure Center [facility] [address], [address] [place] [id number] CORONARY ANGIOGRAM AND PERCUTANEOUS CORONARY INTERVENTION REPORT Patient: Frandy Alvares : ?? 1935 MR number: [id number] Date of Service: 12/03/2019 Gear Machine Operator: ?? Irina James MD Fellow: ?Alexandre Griffith MD Referring physician: ?? Chris Garcia MD INDICATION: ??Abnormal stress test, abnormal coronary CTA, NSVT, atypical chest pain PATIENT CLINICAL PROFILE: ??Frandy Alvares is a 84 y.o. male with a history of hypertension, hyperlipidemia, and NSVT who recently saw Dr. Garcia due to atypical chest pain. ??The patient also has a history of an abnormal stress test. ??He did eventually undergo nuclear stress test which showed a moderate in size, mild inferior wall ischemia. ??He then underwent a coronary CTA which showed calcified atherosclerosis in the distal aspect of the LAD with a 75% occlusion. ??He was also found to have mild stenosis of left circumflex as well as moderate stenosis in the mid to distal right coronary artery. ??Due to his symptoms and abnormal test, he was referred for left heart catheterization for further assessment. PROCEDURE: 1. The risks, benefits and alternatives of the procedures and moderate sedation were explained to the patient and informed consent was obtained. The patient was brought to the hospital laboratory technician and placed on the table. 2. Bilateral groins were prepped and draped in the usual sterile fashion. 3. The right femoral artery site was infiltrated with 2 % lidocaine. The vessel was accessed using a Micropuncture kit and the modified Seldinger technique with a Micro needle, a wire was threaded into the vessel, and a 6Fr Sheath was advanced over the wire into the vessel. 4. Left Coronary Artery Angiogram was performed using a 6 Fr EBU 3.5 guide Catheter. 5. Right Coronary Artery Angiogram was performed using a 6 Fr JR4 Catheter. 6. Left Ventricular Hemodynamics were measured using JR4 Catheter, no left ventriculogram was done. 7. Coronary Intervention performed on lesion #1 LAD: equipment included ? -6 Fr EBU 4.0 guide catheter, 0.014 Verrata wire, [place] [facility] IVUS Catheter, 2.5 x 38 mm Xience Henny drug-eluting stent, 4.0 x 8 mm Emerge balloon, 3.0 x 18 mm NC Sapphire balloon 8. ?? At the end of the procedure, the Right Femoral site was Angiosealed successfully. 9. ??[facility] was [facility] in stable condition. RESULTS: Hemodynamics: 1. Systemic Aortic blood pressure was 144/71. 2. Left ventricular blood pressure was 126/5. 3. There was no gradient on pull back across the aortic valve Coronary Arteriography: 1. Left main coronary: ??The left main coronary artery is a large vessel that is angiographically normal. 2. Left Anterior Decending: ??The left anterior descending coronary artery is a large vessel that has a 60-70% lesion in the entire mid portion of the vessel. ??The mid vessel has moderate diffuse disease. ??The LAD gives off 3 small diagonal vessels. 3. Left Circumflex: ??The left circumflex coronary artery is a large vessel that has mild luminal irregularities throughout the vessel. ??It gives off an obtuse marginal branch that also has mild luminal irregularities. 4. Right Coronary Artery: Right Dominant System. ??There is a mild, 20% lesion in the proximal right coronary artery. ??The remainder of the right coronary artery has mild diffuse disease. ??The right coronary artery gives off both PLV and PDA branches, both with mild luminal irregularities. CORONARY INTERVENTION REPORT: Coronary Intervention on Lesion #1: LAD This was an ACC/AHA type C - High risk lesion for intervention. There was no evidence of the transient no-reflow phenomenon. There was CHRISTIAN 3 flow before the procedure and CHRISTIAN 3 flow after the procedure. Lesion length 38 mm. A 6 Fr EBU 4.0 guiding catheter was used to cannulate the vessel and angiography was performed in two orthogonal planes. Initial angiography showed a 60-70% lesion in the proximal to mid portion of the vessel, with the remainder of the mid vessel showing moderate diffuse disease. ??Due to this, a Verrata wire, which was normalized in the aorta, was placed across the lesion and IFR was performed. ??IFR was significant at 0.79. ??The Verrata wire was placed in the distal LAD. ??Intravascular ultrasound was performed which showed a distal reference vessel diameter of 2.7 mm and a proximal reference vessel diameter 4.0 mm. ??A 2.5 x 38 mm Xience Henny drug-eluting stent was placed across the lesion and deployed at an inflation pressure of 20 atmospheres. ??The proximal portion of the stent was post dilated with a 4.0 x 8 mm Emerge balloon with inflation pressure of 12 atmospheres. ??The remainder of the midportion of the stent was post dilated with a 3.0 x 18 mm NC Sapphire balloon with a maximum inflation pressure of 18 atmospheres. ??Final intravascular ultrasound showed well-opposed stent struts with no evidence of edge dissection. ??Final angiogram showed normal flow, no residual stenosis, and no dissection. ?? COMPLICATIONS: None DIAGNOSTIC us Irina James MD CV CARDIAC CATH PROCEDURES Fi nal Result * (ABNORMAL) POCT Activated clotting time, low range (12/03/2019 11:01 AM SANITARIAN INSPECTOR) ACT 268(H) 123 - 168 sec [facility] Blood specimen (specimen) 12/03/2019 11:01 AM SANITARIAN INSPECTOR 12/03/2019 11:01 AM SANITARIAN INSPECTOR Irina James MD LAB POCT ORDERABLES - DEVICE Final Result Performing Organization Address City/[facility] Co de Phone Number [facility] [place] [address] * (ABNORMAL) POCT Activated clotting time, low range (12/03/2019 10:32 AM SANITARIAN INSPECTOR) Pathologist [facility] ACT 303(H) 123 - 168 sec [facility] Blood specimen (specimen) 12/03/2019 10:32 AM SANITARIAN INSPECTOR 12/03/2019 10:32 AM SANITARIAN INSPECTOR Irina James MD LAB POCT ORDERABLES - DEVICE Final Result Performing Organization Address [facility] de Phone Number [facility] [place] [address] * (ABNORMAL) CBC without differential (12/03/2019 10:20 AM SANITARIAN INSPECTOR) [facility] WBC 7.2 3.8 - 9.9 K/cumm [facility] Hgb 12.7(L) 13.0 - 17.5 g/dL [facility] Hct 36.8(L) 38.9 - 50.3 % [facility] Plt 120(L) 150 - 400 K/cumm [facility] MPV 11.3 9.1 - 12.3 fL [facility] RBC 3.87(L) 4.30 - 5.80 M/cumm [facility] MCV 95.1 81.3 - 96.4 fL [facility] MCH 32.8 27.1 - 33.3 pg [facility] MCHC 34.5 32.3 - 35.7 g/dL [facility] RDW CV 12.6 11.1 - 14.9 % [facility] RDW SD 43.3 35.7 - 48.1 fL [facility] NRBC abs 0.00 0.00 - 0.01 K/cumm [facility] Blood specimen (specimen) 12/03/2019 10:20 AM SANITARIAN INSPECTOR 12/03/2019 10:28 AM SANITARIAN INSPECTOR Narrative [facility] - 12/03/2019 10:42 AM SANITARIAN INSPECTOR To be drawn after hydration bolus complete us Lian Toro CATERPILLAR MECHANIC LAB BLOOD ORDERABLES Final Re sult Performing Organization Address City/[facility]/ZIP Co de Phone Number [facility] Department [place] [address] * (ABNORMAL) CBC without differential (12/03/2019 8:20 AM SANITARIAN INSPECTOR) WBC 7.3 3.8 - 9.9 K/cumm [facility] Hgb 13.7 13.0 - 17.5 g/dL [facility] Hct 40.4 38.9 - 50.3 % [facility] Plt 128(L) 150 - 400 K/cumm [facility] MPV 10.8 9.1 - 12.3 fL [facility] RBC 4.25(L) 4.30 - 5.80 M/cumm [facility] MCV 95.1 81.3 - 96.4 fL [facility] MCH 32.2 27.1 - 33.3 pg [facility] MCHC 33.9 32.3 - 35.7 g/dL [facility] RDW CV 12.7 11.1 - 14.9 % [facility] RDW SD 44.3 35.7 - 48.1 fL [facility] NRBC abs 0.00 0.00 - 0.01 K/cumm [facility] Blood specimen (specimen) 12/03/2019 8:20 AM SANITARIAN INSPECTOR 12/03/2019 8:25 AM SANITARIAN INSPECTOR Lian Toro CATERPILLAR MECHANIC LAB BLOOD ORDERABLES Final Re sult [facility] Department [place] [address] documented in this encounter Visit Diagnoses Diagnosis Status post insertion of drug eluting coronary artery stent- Primary Abnormal computed tomography angiography (CTA) VT (ventricular tachycardia) (HCC) Paroxysmal ventricular tachycardia Positive cardiac stress test Abnormal computed tomography angiography (CTA) VT (ventricular tachycardia) (HCC) Paroxysmal ventricular tachycardia documented in this encounter Administered Medications Inactive Administered Medications - up to 3 most recent administrations Medication Order MAR Action Action Date Dose Rate Site aspirin chewable tablet 81 mg 81 mg, oral, Once, On Mon12/03/19 at 0830, For 1 dose Given 12/03/2019 8:34 AM SANITARIAN INSPECTOR 81 mg clopidogreL (PLAVIX) tablet 600 mg 600 mg, oral, Once, On Mon12/03/19 at 1015, For 1 dose Given 12/03/2019 9:48 AM SANITARIAN INSPECTOR 600 mg fentaNYL (SUBLIMAZE) preservative free injection As needed, Starting on Mon12/03/19 at 1011, Intra-Procedure (CV) Given 12/03/2019 10:11 AM SANITARIAN INSPECTOR 25 mcg heparin 1,000 unit/mL injection As needed, Starting on Mon12/03/19 at 1029, Intra-Procedure (CV) Given 12/03/2019 10:29 AM SANITARIAN INSPECTOR 5,500 Units iodixanoL (VISIPAQUE) 320 mg iodine/mL injection As needed, Starting on Mon12/03/19 at 1105, Intra-Procedure (CV) Given 12/03/2019 11:05 AM SANITARIAN INSPECTOR 105 mL midazolam (VERSED) preservative free injection Administer over 2 Minutes, As needed, Starting on Mon12/03/19 at 1011, Intra-Procedure (CV) Given 12/03/2019 10:11 AM SANITARIAN INSPECTOR 1 mg niCARdipine (CARDENE) 1 mg/10 mL in sodium chloride 0.9% (premix) As needed, Starting on Mon12/03/19 at 1022, Intra-Procedure (CV) Given 12/03/2019 10:56 AM SANITARIAN INSPECTOR 100 mcg Given 12/03/2019 10:35 AM SANITARIAN INSPECTOR 100 mcg Given 12/03/2019 10:26 AM SANITARIAN INSPECTOR 100 mcg nitroglycerin injection 100 mcg/mL D5W 10 mL vial As needed, Starting on Mon12/03/19 at 1022, Intra-Procedure (CV) Given 12/03/2019 10:56 AM SANITARIAN INSPECTOR 100 mcg Given 12/03/2019 10:35 AM SANITARIAN INSPECTOR 100 mcg Given 12/03/2019 10:25 AM SANITARIAN INSPECTOR 100 mcg sodium chloride 0.9% bolus 284 mL 284 mL (rounded from 284.4 mL = 3 mL/kg ? 94.8 kg), intravenous, Once, On Mon12/03/19 at 0900, For 1 dose, Pre-Procedure (CV), Immediately on arrival (at least 30 minutes prior to procedure) New Bag 12/03/2019 8:30 AM SANITARIAN INSPECTOR 284 mL sodium chloride 0.9% bolus Continuous PRN, Starting on Mon12/03/19 at 1023, Intra-Procedure (CV) New Bag 12/03/2019 10:23 AM SANITARIAN INSPECTOR 500 mL sodium chloride 0.9% flush 0.5-20 mL 0.5-20 mL, intra-catheter, As needed, line care, Starting on Mon12/03/19 at 0829, Pre-Procedure (CV), Flush volume based on line type and size. Flush before and after each use. , Indications: FlushingIndications:Flushing sodium chloride 0.9% infusion 1 mL/kg/hr ? 94.8 kg (94.8 mL/hr), intravenous, Continuous, Starting on Mon12/03/19 at 0900, Pre-Procedure (CV) New Bag 12/03/2019 8:30 AM SANITARIAN INSPECTOR 1 mL/kg/hr 94.8 mL/hr sodium chloride 0.9% infusion 30 mL/hr, intravenous, Continuous, Starting on Mon12/03/19 at 0915 New Bag 12/03/2019 8:33 AM SANITARIAN INSPECTOR 30 mL/hr 30 mL/hr documented in this encounter Discontinued Medications Medication Sig Discontinue Reason Start Date End Da te lovastatin (MEVACOR) 20 mg tabletIndications:hyper lipidemia Take 20 mg by mouth daily. Stop Taking at Discharge 02/15/2018 12/03/2019 documented as of this encounter Active and Recently Administered Medications Times are shown in SANITARIAN INSPECTOR. Scheduled Medication Order 12/01/2019 12/02/2019 12/03/2019 aspirin chewable tablet 81 mg (COMPLETED) 81 mg, oral, Once, On Mon12/03/19 at 0830, For 1 dose 0834 (Given - Provid er: Luan Lockhart RN) clopidogreL (PLAVIX) tablet 600 mg (COMPLETED) 600 mg, oral, Once, On Mon12/03/19 at 1015, For 1 dose 0948 (Given - Provid er: Jenae Banerjee RN) sodium chloride 0.9% bolus 284 mL (COMPLETED)(Linked Group 1) 284 mL (rounded from 284.4 mL = 3 mL/kg ? 94.8 kg), intravenous, Once, On Mon12/03/19 at 0900, For 1 dose, Pre-Procedure (CV), Immediately on arrival (at least 30 minutes prior to procedure) 0830 (New Bag - Prov ider: Luan Lockhart RN) Continuous Medication Order 12/01/2019 12/02/2019 12/03/2019 sodium chloride 0.9% infusion(Linked Group 1) 1 mL/kg/hr ? 94.8 kg (94.8 mL/hr), intravenous, Continuous, Starting on Mon12/03/19 at 0900, Pre-Procedure (CV) 0830 (New Bag - Prov ider: Luan Lockhart RN) sodium chloride 0.9% infusion 30 mL/hr, intravenous, Continuous, Starting on Mon12/03/19 at 0915 0833 (New Bag - Prov ider: Luan Lockhart RN) sodium chloride 0.9% infusion 100 mL/hr, intravenous, Continuous, Starting on Mon12/03/19 at 1300, For 5 hours, Recovery (CV) 1300 (Due) PRN Medication Order 12/01/2019 12/02/2019 12/03/2019 acetaminophen (TYLENOL) tablet 650 mg 650 mg, oral, Every 4 hours PRN, 1st line for pain, fever, fever greater than 38.3 C, Starting on Mon12/03/19 at 1218, Recovery (CV), Indications: Fever, Pain fentaNYL (SUBLIMAZE) preservative free injection (CANCELED) As needed, Starting on Mon12/03/19 at 1011, Intra-Procedure (CV) 1011 (Given - Provid er: Shannon Valente RN) heparin 1,000 unit/mL injection (CANCELED) As needed, Starting on Mon3/20 at 1029, Intra-Procedure (CV) 1029 (Given - Provid er: Alexandre Griffith MD) iodixanoL (VISIPAQUE) 320 mg iodine/mL injection (CANCELED) As needed, Starting on e 12/03/19 at 1105, Intra-Procedure (CV) 1105 (Given - Provid er: Alexandre Griffith MD) midazolam (VERSED) preservative free injection (CANCELED) Administer over 2 Minutes, As needed, Starting on e 12/03/19 at 1011, Intra-Procedure (CV) 1011 (Given - Provid er: Shannon Valente RN) niCARdipine (CARDENE) 1 mg/10 mL in sodium chloride 0.9% (premix) (CANCELED) As needed, Starting on Mon12/03/19 at 1022, Intra-Procedure (CV) 1022 (Given - Provid er: Mike Stark MD)1026 (Given - Provider: Mike Stark MD)1035 (Given - Provider: Mike Stark MD)1056 (Given - Provider: Mike Stark MD) nitroglycerin injection 100 mcg/mL D5W 10 mL vial (CANCELED) As needed, Starting on Mon12/03/19 at 1022, Intra-Procedure (CV) 1022 (Given - Provid er: Mike Stark MD)1025 (Given - Provider: Mike Stark MD)1035 (Given - Provider: Mike Stark MD)1056 (Given - Provider: Mike Stark MD) sodium chloride 0.9% bolus (COMPLETED) Continuous PRN, Starting on Mon12/03/19 at 1023, Intra-Procedure (CV) 1023 (New Bag - Prov ider: Shannon Valente RN) sodium chloride 0.9% flush 0.5-20 mL 0.5-20 mL, intra-catheter, As needed, line care, Starting on Mon12/03/19 at 0829, Pre-Procedure (CV), Flush volume based on line type and size. Flush before and after each use. , Indications: Flushing 0959 (MAR Hold - Pro vider: Automatic Transfer Provider - Reason: Patient not available)1912 (NOV Unhold - Provider: Automatic Discharge Provider) Linked Groups Order Group 1: sodium chloride 0.9% bolus 284 mL (COMPLETED)Jump to med 284 mL (rounded from 284.4 mL = 3 mL/kg ? 94.8 kg), intravenous, Once, On Mon12/03/19 at 0900, For 1 dose, Pre-Procedure (CV), Immediately on arrival (at least 30 minutes prior to procedure) Followed by sodium chloride 0.9% infusionJump to med 1 mL/kg/hr ? 94.8 kg (94.8 mL/hr), intravenous, Continuous, Starting on Mon12/03/19 at 0900, Pre-Procedure (CV) documented in this encounter Orders Medications Ordered That Martínez ht Not Have Been Administered Count Last Ordered Date First Ordered Date acetaminophen (TYLENOL) tablet 650 mg 1 12/2019 sodium chloride 0.9% flush 0.5-20 mL 1 12/2019 sodium chloride 0.9% infusion 1 12/03/2019 CORE MEASURES Count Last Ordered Date First Ord ered Date REASON FOR NO VTE PROPHYLAXIS AT ADMISSION 1 12/03/2019 documented in this encounter Care Teams Jig And Fixture Repairer Relationship Specialty Start Date End Date Bao Pierre MD [address] [address] PCP - General 12/22/16 documented as of this encounter
--- OUTSIDE RECORDS SUMMARY | 2024-10-01 08:44 | XMS_ITS | Encounter Summary ---
Author Organization [facility] Address [address] [place] [address] Phone Care Team Providers Care Hydrostatic Tubing Tester Name Role Phone Bao Pierre MD Primary Care Provider [phone] Encounter Details Date Type Department Care Team (Late st Contact Info) Description 02/27/2020 Telephone [facility] Cardiology [address] [facility] Advanced Medicine 8th [place] [address] [place] [id number] Chris Garcia MD [address] [place] [address] Social History Tobacco Use Types Packs/Day Years [...] on file Legal Sex Male 9:03 PM CONTINUOUS PROCESS MACHINE OPERATOR Gender Identity Not on file Sexual Orientation Straight 10/15/2019 10 :34 PM CONTINUOUS PROCESS MACHINE OPERATOR documented as of this encounter Miscellaneous Notes * Telephone Encounter - Charity Griffith - 02/27/2020 2:01 PM CDT Pt's caregiver will soon be leaving pt's house states pt needs her there for the call, they have not received call yet from MD. States she has to leave in the next 30 minutes. documented in this encounter Plan of Treatment Not on file documented as of this encounter Goals Goal Patient Goal Type Associated Problems Recent Progress Patient-Stated? Author CCM Chronic Pain Care Plan Chronic Care Management Worsening( 8:02 AM CONTINUOUS PROCESS MACHINE OPERATOR) No Chika Watters, RN Note: Problem: Chronic Pain Goals: 1. Minimize further functional decline 2. Maximize quality of life 3. Control pain Strategies: - Activity/exercise program recommendation - Conservative stepwise pain medicine strategy with multi-disciplinary approach - Recommend healthy lifestyle strategies and compensatory methods as needed documented as of this encounter Visit Diagnoses Not on filedocumented in this encounter Care Teams Hydrostatic Tubing Tester Relationship Specialty Start Date End Date Bao Pierre MD [address] [address] PCP - General 12/22/16 documented as of this encounter
--- OUTSIDE RECORDS SUMMARY | 2024-10-01 08:44 | XMS_ITS | Encounter Summary ---
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 Author CCM Chronic Pain Care Plan Chronic Care Management Worsening( 8:02 AM FILM EDITOR) No Chika Watters, RN Note: Problem: Chronic Pain Goals: 1. Minimize further functional decline 2. Maximize quality of life 3. Control pain Strategies: - Activity/exercise program recommendation - Conservative stepwise pain medicine strategy with multi-disciplinary approach - Recommend healthy lifestyle strategies and compensatory methods as needed documented as of this encounter Procedures Procedure Name Priority Date/Time Associated Diagnosis Comments CARDIOLOGY DOCUMENT SCAN 020 10:45 AM CDT documented in this encounter Results * SCAN - CARDIOLOGY (03/06/2020 10:45 AM CDT) Anatomical Region Laterality Modality Other Chris Garcia MD CV CARDIAC SERVICES PROCEDURE S Final Result documented in this encounter Visit Diagnoses Not on filedocumented in this encounter Care Teams Leather Sorter Relationship Specialty Start Date End Date Bao Pierre MD [address] [address] PCP - General 12/22/16 documented as of this encounter
--- OUTSIDE RECORDS SUMMARY | 2024-10-01 08:44 | XMS_ITS | Encounter Summary ---
Author Organization [facility] [employer] of [facility] Address [address] [place] [address] Phone Care Team Providers Care Cook Pressure Name Role Phone Geoff Pierre MD Primary Care Provider [phone] Encounter Details Date Type Department Care Team (Late st Contact Info) Description 02/27/2020 1:20 PM CDT Telemedicine [facility] Cardiology [address] [facility] [address] [place] [address] Chris Garcia MD [address] [facility] [address] [place], [place] [id number] History of percutaneous coronary intervention (Primary Dx); Mixed hyperlipidemia; Essential hypertension; VT (ventricular tachycardia) (CMS/HCC); Dizziness Social History Tobacco Use Types Packs/Day [...] file 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 Gender Identity Not on file Sexual Orientation Straight 10/15/2019 10 :34 PM DIGITAL MUSIC INSTRUCTOR documented as of this encounter Last Filed Vital Signs Vital Sign Reading Time Taken Comments Blood Pressure 101/57 02/27/2020 12:42 PM CDT Pulse 78 02/27/2020 12:42 PM CDT Temperature 36.7 ??C (98 ??F) 02/27/2020 12:42 PM CDT Respiratory Rate - - Oxygen Saturation - - Inhaled Oxygen Concentration - - Weight 89.4 kg (197 lb) 02/27/2020 12:42 PM CDT Height 175.3 cm (5' 9 ) 02/27/2020 12:42 PM CDT Body Mass Index 29.09 02/27/2020 12:42 PM CDT documented in this encounter Progress Notes * Chris Garcia MD - 02/27/2020 12:00 AM CDT Date: 02/27/2020 Patient Name: ILSA ALVARES Date of : 1935 Date of Visit: 02/27/2020 This was a telemedicine visit with Ilsa Alvares which took place via telephone. During the visit, Iwas located at home and the patient was located at home. The session started at 2:19 and ended at 2:30. The patient has been informed that the visit may not be secure and acknowledged the information. I have explained the option of participating in a telephone or video visit during the [place] [id number] [facility] Emergency to the patient. After being given an opportunity to ask questions about and discuss this type of visit, the patient verbally consented to proceeding with the telephone/video visit.The patient understands that this service replaces an office visit and they may be billed and/or responsible for any applicable copayments. HISTORY OF PRESENT ILLNESS: Today we are seeing Mr. Ilsa Alvares for evaluation of coronary artery disease and lightheadedness via a telemedicine visit. Since we have last seen him, we had originally cut back the Isordil and beta-donny to half dose, and then he went to see Dr. Pierre who eliminated the nitrates, and I in turn later eliminated his beta-donny. With this in mind, the patient has done significantly better. In particular, he is no longer having any lightheaded spells nor any chest pain or shortness of breath. He has been active but not actively gardening, all without any problems. He denies PND, orthopnea, palpitations, or dizzy spells. His helper who was there today during this phone call informs me that all the blood pressures are in the 130 range, and when he stands up, it does not drop anymore. As recently as February 18, the pressures were 124/65 sitting and 125/79 standing. MEDICATIONS: 1. Baby aspirin. 2. Plavix 75 mg by mouth every day. 3. Crestor 40 mg a day. PHYSICAL EXAMINATION: The blood pressure is 101/57. Pulse 58. Weight 197. IMPRESSION: This gentleman is doing very nicely. He is basically asymptomatic. At this point in time, we have had to basically take him off nitrates and a beta-donny. He has subsequently undergone an LAD stent, and we know that by echocardiography he has normal LV function. This was done both by echo and then by stress thallium as well. PLAN: Therefore, we are just going to continue the current medical regimen, and we will see him back in 2months. Possibly, at that time we will reintroduce a beta-donny. PROBLEM LIST: 1. Drug-eluting stenting to the left anterior descending in December 2019 with mild diffuse right coronary artery blockage. 2. High cholesterol. 3. Nonsustained ventricular tachycardia. 4. Hypertension. 5. Lightheadedness. ELECTRONICALLY SIGNED - 02/27/2020 03:28 PM Chris Garcia M.D. vp strategic planning Division of Cardiology SN/tm cc: GEOFF PIERRE MD / / documented in this encounter Plan of Treatment Not on file documented as of this encounter Goals Goal Patient Goal Type Associated Problems Recent Progress Patient-Stated? 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
--- OUTSIDE RECORDS SUMMARY | 2024-10-01 08:44 | XMS_ITS | Encounter Summary ---
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 Minimize further functional decline 2. Maximize quality of life 3. Control pain Strategies: - Activity/exercise program recommendation - Conservative stepwise pain medicine strategy with multi-disciplinary approach - Recommend healthy lifestyle strategies and compensatory methods as needed documented as of this encounter Procedures Procedure Name Priority Date/Time Associated Diagnosis Comments CARDIOLOGY DOCUMENT SCAN 02/24/2020 7:22 PM CDT documented in this encounter Results * SCAN - CARDIOLOGY (02/24/2020 7:22 PM CDT) Anatomical Region Laterality Modality Other Chris Garcia MD CV CARDIAC SERVICES PROCEDURE S Final Result documented in this encounter Visit Diagnoses Not on filedocumented in this encounter Care Teams Network Developer Relationship Specialty Start Date End Date Bao Pierre MD [address] [address] PCP - General 12/22/16 documented as of this encounter
--- OUTSIDE RECORDS SUMMARY | 2024-10-01 08:44 | XMS_ITS | Encounter Summary ---
Author Organization [facility] Address [address] [place] [address] Phone Care Team Providers Care Front End Developer Designer Name Role Phone Bao Pierre MD Primary Care Provider Encounter Details Date Type Department Care Team (Late st Contact Info) Description 02/04/2020 Telephone [facility] Cardiology [address] [facility] Advanced Medicine 8th [place] [address] [place] [id number] Chris Garcia MD [address] [place] [address] Social History Tobacco Use Types Packs/Day Years [...] on file 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 To call back with any questions. * Telephone Encounter - Nena Hopkins RN - 02/04/2020 1:45 PM CDT LMOR x1 x2 * Telephone Encounter - Kunal Sarah - 02/04/2020 1:29 PM [facility] states patient received his 30 day heart monitor in the mail and is inquiring if he is supposed to start this before or after his US on 5.8.20 documented in this encounter Plan of Treatment Not on file documented as of this encounter Goals Goal Patient Goal Type Associated Problems Recent Progress Patient-Stated? Author CCM Chronic Pain Care Plan Chronic Care Management Worsening( 8:02 AM SR. UNIX SYSTEM ADMINISTRATOR) Chika Tracy, RN Note: Problem: Chronic Pain Goals: 1. Minimize further functional decline 2. Maximize quality of life 3. Control pain Strategies: - Activity/exercise program recommendation - Conservative stepwise pain medicine strategy with multi-disciplinary approach - Recommend healthy lifestyle strategies and compensatory methods as needed documented as of this encounter Visit Diagnoses Not on filedocumented in this encounter Care Teams Front End Developer Designer Relationship Specialty Start Date End Date Bao Pierre MD [address] [address] PCP - General 12/22/16 documented as of this encounter
--- OUTSIDE RECORDS SUMMARY | 2024-10-01 08:44 | XMS_ITS | Encounter Summary ---
Author Organization [facility] Address [address] [place] [address] Phone Care Team Providers Care Tank Builder And Erector Name Role Phone Bao Pierre MD Primary Care Provider [phone] Reason for Visit * Diagnostic Imaging (Routine) - Closed Specialty Diagnoses / Procedures Referred By Contac t Referred To Contact Diagnoses History of percutaneous coronary intervention Mixed hyperlipidemia Dizziness Procedures MCT Mobile Cardiac Telemetry Event Monitor Jerod Garcia MD Phone: tel: fax: 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 Author CCM Chronic Pain Care Plan Chronic Care Management Worsening( 8:02 AM LOCOMOTIVE OBSERVER) Chika Tracy, RN Note: Problem: Chronic Pain Goals: 1. Minimize further functional decline 2. Maximize quality of life 3. Control pain Strategies: - Activity/exercise program recommendation - Conservative stepwise pain medicine strategy with multi-disciplinary approach - Recommend healthy lifestyle strategies and compensatory methods as needed documented as of this encounter Procedures Procedure Name Priority Date/Time Associated Diagnosis Comments [facility] - MOBILE CARDIAC TELEMETRY EVENT MONITOR Routine 01/31/2020 8:15 AM CDT History of percutaneous coronary intervention Mixed hyperlipidemia Dizziness documented in this encounter Results * [facility] Mobile Cardiac Telemetry Event Monitor (01/31/2020 8:15 AM CDT) Anatomical Region Laterality Modality Electrocardiogra phy 01/31/2020 11:3 0 AM CDT Narrative 03/09/2020 11:55 AM CDT Patient name: Frandy Alvares Date of test: 01/31/2020 Type of Test: Event Monitor ([facility]) Hospital #: [id number] ?Location: [facility] : 1935 ??Age: 84 ??Sex: M Ref Physician(s): JEROD GARCIA MD Interpreted by: Jeannine Lezama MD [facility] Tech: [employer] Monitoring Service Diagnosis: Monitoring Service: [employer] Reason for Test: R42: Dizziness and giddiness Monitor Used: Body Guardian Heart (MCT) ??MAIL OUT Enrollment Period: February 03 - Mar 04, 2020 [employer] comments: Patient Instructions: Patient support person included in instructions Number of Transmissions Sent During Enrollment Period: 5 To obtain transmission tracing contact: [facility] ??[phone] Rhythm Summary: Bradycardia avg rate: 49 Bradycardia longest duration: 03:09:39 Bradycardia longest episode: 02/04/2020 20:23:00 Bradycardia shortest duration: 00:00:06 Bradycardia shortest episode: 02/08/2020 12:40:00 Mean heart rate: 58 Pauses >= 3 seconds: 0 Tachycardia avg rate: 111 Tachycardia longest duration: 00:07:00 Tachycardia longest episode: 02/06/2020 07:33:00 Tachycardia shortest duration: 00:00:12 Tachycardia shortest episode: 02/07/2020 07:26:00 Cardiologis Review of Transmissions: Baseline rhythm is NSR with first degree AV block. PACs, PVCs noted. HR range 39-142bpm. Probable blocked APCs noted. This study was interpreted by Jeannine Lezama MD Confirmed on ??03/09/2020 - 11:55:38 by Jeannine Lezama MD Summary of Transmitted Events: # ??Date ? Time ?HR ?Symptoms/Rhythm ? 5 ??02/29/20 01:56 ?? 41.7 ?Auto Trigger ? Sinus Bradycardia w/1st Degree AV Block ? 4 ??02/22/20 23:56 ?? 44.3 ?Auto Trigger ? Sinus Bradycardia w/1st Degree AV Block/Artifact ? 3 ??02/19/20 09:21 ?? 72 ?None or Accidental Push ? Sinus Rhythm w/PVCs ? 2 ??02/16/20 12:36 ?? 67 ?None or Accidental Push ? Sinus Rhythm ? 1 ??02/04/20 16:26 ?? 60.7 ?Baseline ? Sinus Rhythm w/PACs/Lead Loss ? I have personally reviewed and interpreted this study. Procedure Note Jeannine Lezama MD - 03/09/2020 Patient name: Frandy Alvares Date of test: 01/31/2020 Type of Test: Event Monitor (MCT) [facility] #: [id number] Location: [facility] : 1935 Age: 84 Sex: M Ref Physician(s): JEROD GARCIA MD Interpreted by: Jeannine Lezama MD [employer] Tech: [employer] Monitoring Service Diagnosis: Monitoring Service: [employer] Reason for Test: R42: Dizziness and giddiness Monitor Used: Body Guardian Heart (MCT) MAIL OUT Enrollment Period: February 03 - Mar 04, 2020 [employer] comments: Patient Instructions: Patient support person included in instructions Number of Transmissions Sent During Enrollment Period: 5 To obtain transmission tracing contact: [facility] [phone] Rhythm Summary: Bradycardia avg rate: 49 Bradycardia longest duration: 03:09:39 Bradycardia longest episode: 02/04/2020 20:23:00 Bradycardia shortest duration: 00:00:06 Bradycardia shortest episode: 02/08/2020 12:40:00 Mean heart rate: 58 Pauses >= 3 seconds: 0 Tachycardia avg rate: 111 Tachycardia longest duration: 00:07:00 Tachycardia longest episode: 02/06/2020 07:33:00 Tachycardia shortest duration: 00:00:12 Tachycardia shortest episode: 02/07/2020 07:26:00 Cardiologis Review of Transmissions: Baseline rhythm is NSR with first degree AV block. PACs, PVCs noted. HR range 39-142bpm. Probable blocked APCs noted. This study was interpreted by Jeannine Lezama MD Confirmed on 03/09/2020 - 11:55:38 by Jeannine Lezama MD Summary of Transmitted Events: # Date Time HR Symptoms/Rhythm 5 02/29/20 01:56 41.7 Auto Trigger Sinus Bradycardia w/1st Degree AV Block 4 02/22/20 23:56 44.3 Auto Trigger Sinus Bradycardia w/1st Degree AV Block/Artifact 3 02/19/20 09:21 72 None or Accidental Push Sinus Rhythm w/PVCs 2 02/16/20 12:36 67 None or Accidental Push Sinus Rhythm 1 02/04/20 16:26 60.7 Baseline Sinus Rhythm w/PACs/Lead Loss I have personally reviewed and interpreted this study. Jerod Garcia MD CV CARDIAC SERVICES PROCEDURE S Final Result documented in this encounter Visit Diagnoses Diagnosis History of percutaneous coronary intervention Mixed hyperlipidemia Dizziness Dizziness and giddiness documented in this encounter Care Teams Tank Builder And Erector Relationship Specialty Start Date End Date Bao Pierre MD [address] [facility] [address] [place] [address] PCP - General 12/22/16 documented as of this encounter
--- OUTSIDE RECORDS SUMMARY | 2024-10-01 08:44 | XMS_ITS | Encounter Summary ---
Author Organization [facility] [employer] [facility] Address [address] [place] [address] Phone Care Team Providers Care Metal Sprayer Production Name Role Phone Bao Pierre MD Primary Care Provider [phone] Encounter Details Date Type Department Care Team (Late st Contact Info) Description 05/15/2020 Telephone [facility] Cardiology [address] [facility] Advanced Medicine 8th [place] [address] [place] [address] Chris Garcia MD [address] [place] [address] Social History Tobacco Use Types Packs/Day Years [...] on file 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 * Telephone Encounter - Krystyna Bernstein - 05/15/2020 3:25 PM CDT Jose Pt web production assistant calling about appt was supposed be at 2:40. Please call. documented in this encounter Plan of Treatment Not on file documented as of this encounter Goals Goal Patient Goal Type Associated Problems Recent Progress Patient-Stated? Author CCM Chronic Pain Care Plan Chronic Care Management Worsening( 8:02 AM WARDROBE ASSISTANT) No Chika Watters RN Note: Problem: Chronic Pain Goals: 1. Minimize further functional decline 2. Maximize quality of life 3. Control pain Strategies: - Activity/exercise program recommendation - Conservative stepwise pain medicine strategy with multi-disciplinary approach - Recommend healthy lifestyle strategies and compensatory methods as needed documented as of this encounter Visit Diagnoses Not on filedocumented in this encounter Care Teams Metal Sprayer Production Relationship Specialty Start Date End Date Bao Pierre MD [address] [address] PCP - General 12/22/16 documented as of this encounter
--- OUTSIDE RECORDS SUMMARY | 2024-10-01 08:44 | XMS_ITS | Encounter Summary ---
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 Author CCM Chronic Pain Care Plan Chronic Care Management Worsening( 8:02 AM TERRITORY BUSINESS MANAGER) No Chika Watters, RN Note: Problem: Chronic Pain Goals: 1. Minimize further functional decline 2. Maximize quality of life 3. Control pain Strategies: - Activity/exercise program recommendation - Conservative stepwise pain medicine strategy with multi-disciplinary approach - Recommend healthy lifestyle strategies and compensatory methods as needed documented as of this encounter Procedures Procedure Name Priority Date/Time Associated Diagnosis Comments SCAN - RADIOLOGY/IMAGING 09/04/2020 5:27 PM TERRITORY BUSINESS MANAGER documented in this encounter Results * SCAN - RADIOLOGY/IMAGING (09/04/2020 5:27 PM TERRITORY BUSINESS MANAGER) Anatomical Region Laterality Modality Other us Provider Scanning Final Result documented in this encounter Visit Diagnoses Not on filedocumented in this encounter Care Teams Breaker Operator Relationship Specialty Start Date End Date Bao Pierre MD [address] [address] PCP - General 12/22/16 documented as of this encounter
--- OUTSIDE RECORDS SUMMARY | 2024-10-01 08:44 | XMS_ITS | Encounter Summary ---
Author Organization [facility] airpim of [facility] Address [address] [place] [address] Phone Care Team Providers Care Roustabout Supervisor Name Role Phone Geoff Pierre MD Primary Care Provider Reason for Referral * Diagnostic Imaging (Routine) - Closed Specialty Diagnoses / Procedures Referred By Contac t Referred To Contact Diagnoses History of percutaneous coronary intervention Mixed hyperlipidemia Dizziness Procedures US Carotids Duplex Bilateral Jerod Garcia MD Phone: tel: fax: Referral ID Status Reason Start Date Expiration Date Visits Re quested Visits Authorized [id number] Closed 01/30/2020 08/10/2021 1 1 * (Routine) - Closed Specialty Diagnoses / Procedures Referred By Contac t Referred To Contact Diagnoses History of percutaneous coronary intervention Mixed hyperlipidemia Dizziness Procedures ECG 12 lead Jerod Garcia MD Phone: tel: fax: [facility] Referral ID Status Reason Start Date Expiration Date Visits Re quested Visits Authorized [id number] Closed 01/30/2020 08/10/2021 1 1 * Diagnostic Imaging (Routine) - Closed Specialty Diagnoses / Procedures Referred By Contac t Referred To Contact Diagnoses History of percutaneous coronary intervention Mixed hyperlipidemia Dizziness Procedures MCT Mobile Cardiac Telemetry Event Monitor Jerod Garcia MD Phone: tel: fax: [facility] Referral ID Status Reason Start Date Expiration Date Visits Re quested Visits Authorized [id number] Closed 01/30/2020 08/10/2021 1 1 Encounter Details Date Type Department Care Team (Late st Contact Info) Description 01/30/2020 11:00 AM CDT Telemedicine [facility] Cardiology [address] [facility] [place] [address] Jerod Garcia MD [address] [place] [address] History of percutaneous coronary intervention (Primary Dx); Mixed hyperlipidemia; Dizziness Social History Tobacco Use [...] on file 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 Gender Identity Not on file Sexual Orientation Straight 10/15/2019 10 :34 PM PRESCHOOL TEACHER ASSISTANT documented as of this encounter Last Filed Vital Signs Vital Sign Reading Time Taken Comments Blood Pressure 100/52 01/30/2020 11:00 AM CDT obtained from patient Pulse 59 01/30/2020 10:59 AM CDT obtained from patient Temperature - - Respiratory Rate - - Oxygen Saturation 96% 01/30/2020 10: 59 AM CDT obtained from patient Inhaled Oxygen Concentration - - Weight 89.8 kg (198 lb) 01/30/2020 10:5 9 AM CDT obtained from patient Height 175.3 cm (5' 9 ) 01/30/2020 10:5 9 AM CDT obtained from patient Body Mass Index 29.24 01/30/2020 10:59 AM CDT documented in this encounter Ordered Prescriptions Prescription Sig Dispense Quantity Refills Last Filled Start Date End Date metoprolol XL (TOPROL-XL) 25 mg extended release tablet Take 0.5 tablets (12.5 mg total) by mouth daily 30 tablet 3 01/30/2020 0 documented in this encounter Progress Notes * Jerod Garcia MD - 01/30/2020 12:00 AM CDT Date: 01/30/2020 Patient Name: ILSA ALVARES Date of : 1935 Date of Visit: 01/30/2020 This was a telemedicine visit with Ilsa Alvares, which took place via telephone. During the visit, I was located at my house, and the patient was located at his home. The session started at 12:46 andended at 12:55. The patient has been informed that the visit may not be secure and acknowledged the information. I have explained the option of participating in a telephone or video visit during the [facility]- Public [facility] Emergency to the patient. After being given an opportunity to ask questions about and discuss this type of visit, the patient verbally consented to proceeding with the telephone/video visit.The patient understands that this service replaces an office visit and they may be billed and/or responsible for any applicable co-payments. HISTORY OF PRESENT ILLNESS: Today, we are seeing him for evaluation of lightheadedness and coronary artery disease. Since he has had his heart catheterization, he says he gets lightheaded. This usually occurs if he is working in the yard and he carries anything. He has to pick something up and then carry it, and then his backbegins to hurt, and he gets lightheaded. He otherwise denies any chest pain, shortness of breath, PND, orthopnea, palpitations, or dizzy spells. MEDICATIONS: It is hard for me to be sure what his medicines are, since I had him read them to me and it is still somewhat nebulous. By my list, we have been takin. Aspirin 81 mg a day. 2. Plavix 75 mg a day. 3. Imdur half-pill of 30 mg (one-half is 15 mg). 4. Toprol-XL 25 mg. 5. Crestor 40 mg. PHYSICAL EXAMINATION: His blood pressure today is 92/52, pulse 59, O2 sat 96%, weight 198. PLAN: This individual had a drug-eluting stent to the LAD, placed by Dr. James on December 02. He had moderate RCA disease as well. The plans will be: 1. We are going to get a set of carotid Dopplers. 2. CBC and BMP. 3. Lipid profile. 4. We are going to put an event monitor on him. 5. EKG. 6. We will also check a troponin. 7. We have set up an appointment for him to see Dr. Pierre in the morning, and we will try to get all this in effect done. 8. In addition, we are going to stop his Imdur completely, and if possible, perhaps cut back his Toprol, which we need for ventricular tachycardia. Further recommendations forthcoming. PROBLEM LIST: 1. Left anterior descending coronary artery drug-eluting stent, mild right coronary artery disease,done in November, history of negative catheterization 6 years ago. 2. High cholesterol. 3. Ventricular tachycardia, nonsustained. 4. Hypertension. 5. Lightheadedness. Further recommendations forthcoming. ELECTRONICALLY SIGNED - 01/31/2020 03:40 PM Jreod Garcia M.D. operations specialists Division of Cardiology SN/lw cc: GEOFF PIERRE MD / / documented in this encounter Plan of Treatment Scheduled Orders Name Type Priority Associated Diagnoses Orde r Schedule ECG 12 lead ECG Routine History of percutaneous coronary intervention Mixed hyperlipidemia Dizziness Ordered: 01/30/2020 documented as of this encounter Goals Goal Patient Goal Type Associated Problems Recent Progress Patient-Stated? Author CCM Chronic Pain Care Plan Chronic Care Management Worsening( 8:02 AM PRESCHOOL TEACHER ASSISTANT) No Chika Watters, RN Note: Problem: Chronic Pain Goals: 1. Minimize further functional decline 2. Maximize quality of life 3. Control pain Strategies: - Activity/exercise program recommendation - Conservative stepwise pain medicine strategy with multi-disciplinary approach - Recommend healthy lifestyle strategies and compensatory methods as needed documented as of this encounter Results * US Carotids Duplex Bilateral (02/07/2020 11:30 AM CDT) Anatomical Region Laterality Modality Vascular Bilateral Ultrasound 02/07/2020 10:3 0 AM CDT Narrative 02/10/2020 7:31 AM CDT Patient name: Ilsa Alvares Date of test: 02/07/2020 Hospital #: [id number] ?Location: [facility] Ref Physician(s): , JEROD GARCIA MD Interpreted by: Jayde Wiley MD Tech: Carlee Hernandez Shelly Type of Test: Carotid Doppler Evaluation Procedure: [...] reviewed and interpreted this study. Procedure Note Jayde Wiley MD - 02/10/2020 Patient name: Ilsa Alvares Date of test: 02/07/2020 Hospital #: [id number] Location: [facility] Ref Physician(s): , JEROD GARCIA MD Interpreted by: Jayde Wiley MD Tech: Carlee Hernandez Shelly Type of Test: Carotid Doppler Evaluation Procedure: [...] have personally reviewed and interpreted this study. us Jerod Garcia MD [facility] PROCEDURES Final Resul t * MCT Mobile Cardiac Telemetry Event Monitor (01/31/2020 8:15 AM CDT) Anatomical Region Laterality Modality Electrocardiogra phy 01/31/2020 11:3 0 AM CDT Narrative 03/09/2020 11:55 AM CDT Patient name: Ilsa Alvares Date of test: 01/31/2020 Type of Test: Event Monitor ([facility]) Hospital #: [id number] ?Location: [facility] : 1935 ??Age: 84 ??Sex: M Ref Physician(s): JEROD GARCIA MD Interpreted by: Jeannine Lezama MD [facility] Tech: [employer] Monitoring Service Diagnosis: Monitoring Service: [employer] Reason for Test: R42: Dizziness and giddiness Monitor Used: Body [facility] Heart (MCT) ??MAIL OUT Enrollment Period: February 03 - Mar 04, 2020 [employer] comments: Patient Instructions: Patient support person included in instructions Number of Transmissions Sent During Enrollment Period: 5 To obtain transmission tracing contact: [facility] ??[phone] Rhythm Summary: Bradycardia avg rate: 49 Bradycardia [...] Jeannine Lezama MD - 03/09/2020 Patient name: Ilsa Alvares Date of test: 01/31/2020 Type of Test: Event Monitor ([facility]) [facility] #: [id number] Location: [facility] : 1935 Age: 84 Sex: M Ref Physician(s): JEROD GARCIA MD Interpreted by: Jeannine Lezama MD [employer] Tech: [employer] Monitoring Service Diagnosis: Monitoring Service: [employer] Reason for Test: R42: Dizziness and giddiness Monitor Used: Body [facility] Heart (MCT) MAIL OUT Enrollment Period: February 03 - Mar 04, 2020 [employer] comments: Patient Instructions: Patient support person included in instructions Number of Transmissions Sent During Enrollment Period: 5 To obtain transmission tracing contact: [facility] [phone] Rhythm Summary: Bradycardia avg rate: 49 Bradycardia [...] of percutaneous coronary intervention- Primary Mixed hyperlipidemia Dizziness Dizziness and giddiness History of percutaneous coronary intervention Mixed hyperlipidemia Dizziness Dizziness and giddiness History of percutaneous coronary intervention Mixed hyperlipidemia Dizziness Dizziness and giddiness documented in this encounter Discontinued Medications Medication Sig Discontinue Reason Start Date End Da te metoprolol XL (TOPROL-XL) 25 mg 24 hr tablet Take 1 tablet (25 mg total) by mouth daily 11/08/2019 01/30/2020 documented as of this encounter Historical Medications * This list may reflect changes made after this encounter. UNABLE TO FIND prevagen daily for memory 01/08/2021 added in this encounter Care Teams Roustabout Supervisor Relationship Specialty Start Date End Date Geoff Pierre MD [address] [address] PCP - General 12/22/16 documented as of this encounter
--- OUTSIDE RECORDS SUMMARY | 2024-10-01 08:44 | XMS_ITS | Encounter Summary ---
Author Organization [facility] [employer] of [facility] Address [address] [place] [address] Phone Care Team Providers Care Grader Meat Name Role Phone Bao Pierre MD Primary Care Provider [phone] Encounter Details Date Type Department Care Team (Late st Contact Info) Description 01/31/2020 Telephone [facility] Cardiology [address] [facility] [address] [place] [address] [place] [address] Chris Garcia MD [address] [place] [address] Social History Tobacco Use Types Packs/Day Years [...] on file 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 Please call. documented in this encounter Plan of Treatment Not on file documented as of this encounter Goals Goal Patient Goal Type Associated Problems Recent Progress Patient-Stated? Author CCM Chronic Pain Care Plan Chronic Care Management Worsening( 8:02 AM INVASIVE CARDIOVASCULAR TECHNOLOGIST) No Chika Watters RN Note: Problem: Chronic Pain Goals: 1. Minimize further functional decline 2. Maximize quality of life 3. Control pain Strategies: - Activity/exercise program recommendation - Conservative stepwise pain medicine strategy with multi-disciplinary approach - Recommend healthy lifestyle strategies and compensatory methods as needed documented as of this encounter Visit Diagnoses Not on filedocumented in this encounter Care Teams Grader Meat Relationship Specialty Start Date End Date Bao Pierre MD [address] [address] PCP - General 12/22/16 documented as of this encounter
--- OUTSIDE RECORDS SUMMARY | 2024-10-01 08:44 | XMS_ITS | Encounter Summary ---
Author Organization [facility]aming of [facility] Address [address] [place] [address] Phone Care Team Providers Care Water Filterer Helper Name Role Phone Bao Pierre MD Primary Care Provider [phone] Encounter Details Date Type Department Care Team (Late st Contact Info) Description 12/04/2019 Telephone [facility] Cardiology [address] [facility] [address] 8th [place] [address] [place] [address] Irina James MD [address] [place] [address] Social History Tobacco Use Types Packs/Day Years [...] on file 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 Called to Shayy Alva as per patient contact. URER OF PORTUGUESE * Telephone Encounter - KearaKunal - 12/04/2019 11:18 AM CST Jose/Jacob Patient employee is calling inquiring how long the patient should wait to drive. He had a heart cath yesterday and the discharge papers stated he should wait 7 days but she is unsure if that is right URER OF [place]UES[place] documented in this encounter Plan of Treatment Not on file documented as of this encounter Goals Goal Patient Goal Type Associated Problems Recent Progress Patient-Stated? Author CCM Chronic Pain Care Plan Chronic Care Management Worsening( 8:02 AM LECTURER OF PORTUGUESE) No Chika Watters RN Note: Problem: Chronic Pain Goals: 1. Minimize further functional decline 2. Maximize quality of life 3. Control pain Strategies: - Activity/exercise program recommendation - Conservative stepwise pain medicine strategy with multi-disciplinary approach - Recommend healthy lifestyle strategies and compensatory methods as needed documented as of this encounter Visit Diagnoses Not on filedocumented in this encounter Care Teams Water Filterer Helper Relationship Specialty Start Date End Date Bao Pierre MD [address] [facility] [address] [place] [address] PCP - General 12/22/16 documented as of this encounter
--- OUTSIDE RECORDS SUMMARY | 2024-10-01 08:44 | XMS_ITS | Encounter Summary ---
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 He states he will talk to his doctor when he goes for follows up. documented in this encounter Plan of Treatment Not on file documented as of this encounter Goals Goal Patient Goal Type Associated Problems Recent Progress Patient-Stated? Author CCM Chronic Pain Care Plan Chronic Care Management Worsening( 8:02 AM FORMING MACHINE UPKEEP MECHANIC HELPER) Chika Tracy, RN Note: Problem: Chronic Pain Goals: 1. Minimize further functional decline 2. Maximize quality of life 3. Control pain Strategies: - Activity/exercise program recommendation - Conservative stepwise pain medicine strategy with multi-disciplinary approach - Recommend healthy lifestyle strategies and compensatory methods as needed documented as of this encounter Visit Diagnoses Not on filedocumented in this encounter Care Teams Roll Machine Operator Relationship Specialty Start Date End Date Bao Pierre MD [address] [place] [address] PCP - General 12/22/16 documented as of this encounter
--- OUTSIDE RECORDS SUMMARY | 2024-10-01 08:44 | XMS_ITS | Encounter Summary ---
Author Organization [facility] Address [address] [place] [address] Care Team Providers Care Coffee Shop Aide Name Role Phone Bao Pierre MD Primary Care Provider [phone] Reason for Visit * Reason Comments Earache Encounter Details Date Type Department Care Team (Late st Contact Info) Description 07/16/2020 2:30 PM CDT Office Visit [facility] [address] [facility] [address] [place] [facility] [place] [address] Bao Pierre MD [address] [facility] [address] [place] [address] Ear pain, left (Primary Dx) [...] on file 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 Gender Identity Not on file Sexual Orientation Straight 10/15/2019 10 :34 PM PRODUCT SAFETY MANAGER documented as of this encounter Last Filed Vital Signs Vital Sign Reading Time Taken Comments Blood Pressure 108/42 07/16/2020 2:41 PM CDT Pulse 55 07/16/2020 2:41 PM CDT Temperature - - Respiratory Rate - - Oxygen Saturation - - Inhaled Oxygen Concentration - - Weight 90.7 kg (200 lb) 07/16/2020 2:41 PM CDT Height 172.7 cm (5' 8 ) 07/16/2020 2:41 PM CDT Body Mass Index 30.41 07/16/2020 2:41 PM CDT documented in this encounter Progress Notes * Bao Pierre MD - 07/16/2020 2:30 PM CDT Images from the original note were not included. Subjective/Objective Patient ID: Frandy Alvares is a 84 y.o. male. Chief Complaint Earache HPI History of ear pain. Patient has had left ear pain for the last 48 hours he call to see if he could put some ear drops and was advised to come to the office. He has no fever no chills no sore throat no headache no neck stiffness. She had no drainage from the ear. His hearing has not changed. Past Surgical History: Procedure Laterality Date ??? BACK SURGERY ??? CARDIAC CATHETERIZATION 2012 ??? CATARACT EXTRACTION, BILATERAL ~2013, 2014 ??? HIP SURGERY Left 05/28/2018 DIMITRIOS ARNETT ??? MOHS SURGERY multiple ??? POSTERIOR LAMINECTOMY / DECOMPRESSION LUMBAR SPINE 2015 ??? TX REMOVAL GALLBLADDER 2017 ??? ROTATOR CUFF REPAIR [...] past 24 hrs: BP Pulse Height Weight 07/16/20 1441 (!) 108/42 55 172.7 cm (5' 8 ) 90.7 kg (200 lb) Physical Exam Constitutional: Appearance: Normal appearance. [...] soft. Musculoskeletal: General: No swelling or deformity. Skin: General: Skin is warm and dry. [...] Affect: Mood normal. Behavior: Behavior normal. Assessment/Plan There are no diagnoses linked to this encounter. Labs No results found for: HGBA1C No [...] Plan Chronic Care Management Worsening( 8:02 AM PRODUCT SAFETY MANAGER) No Chika Watters RN Note: Problem: Chronic Pain Goals: 1. Minimize further functional decline 2. Maximize quality of life 3. Control pain Strategies: - Activity/exercise program recommendation - Conservative stepwise pain medicine strategy with multi-disciplinary approach - Recommend healthy lifestyle strategies and compensatory methods as needed documented as of this encounter Visit Diagnoses Diagnosis Ear pain, left- Primary documented in this encounter Discontinued Medications Medication Sig Discontinue Reason Start Date End Da te metoprolol XL (TOPROL-XL) 25 mg extended release tablet Take 0.5 tablets (12.5 mg total) by mouth daily Other 01/30/2020 07/16/2020 amoxicillin (amoxicillin) 500 mg tablet/capsuleIndication s:Prophylaxis, Medical Take 1 tablet/capsule (500 mg total) by mouth as directed TAKE 4 PILL 1 HOUR BEFORE DENTAL APPOINTMENT. Other 11/08/2019 07/16/2020 isosorbide mononitrate ER (IMDUR) 30 mg 24 hr tablet Take 0.5 tablets (15 mg total) by mouth daily Other 11/08/2019 07/16/2020 documented as of this encounter Care Teams Coffee Shop Aide Relationship Specialty Start Date End Date Bao Pierre MD [address] [address] PCP - General 12/22/16 documented as of this encounter
--- OUTSIDE RECORDS SUMMARY | 2024-10-01 08:44 | XMS_ITS | Encounter Summary ---
Author Organization [facility] [employer] of [facility] Address [address] [place] [address] Phone Care Team Providers Care Coal Pulverizer Operator Name Role Phone Bao Pierre MD Primary Care Provider [phone] Encounter Details Date Type Department Care Team (Late st Contact Info) Description 01/30/2020 Telephone [facility] Cardiology [address] [facility] [address] [place] [address] Jayde Thomas Social History Tobacco Use Types Packs/Day Years [...] file Legal 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 Shayy aware. * Telephone Encounter - Jayde Thomas - 01/30/2020 4:02 PM CDT Pt scheduled for carotid February 06 - Shayy aware * Telephone Encounter - Jayde Thomas - 01/30/2020 3:54 PM CDT Anita I will schedule the Carotid. Can you call Shayy in his contacts to schedule the 1m OV? * Telephone Encounter - Jennifer Villegas RN - 01/30/2020 3:43 PM CDT He needs RV in 1 month * Telephone Encounter - Jennifer Villegas RN - 01/30/2020 2:19 PM CDT He will need a return I will confirm with SN when he wants to see him back * Telephone Encounter - Jayde Thomas - 01/30/2020 2:15 PM CDT i'll call Shayy. He didn't put a return * Telephone Encounter - Jennifer Villegas RN - 01/30/2020 2:08 PM CDT He is getting labs and EKG tomorrow at Dr Pierre office and the carotids can be done when open... Please call Shayy his hourly caregiver to schedule it is listed in his demographic sheet. Di dhe put a RV? * Telephone Encounter - Jayde Thomas - 01/30/2020 2:01 PM CDT SN ordered labs, MCT and Carotid today. We put the order to mail the MCT. When/where does pt need labs and carotid. Do I just mail the lab slips and schedule pt at [facility] for CDS when he can come in? Thanks documented in this encounter Plan of Treatment Not on file documented as of this encounter Goals Goal Patient Goal Type Associated Problems Recent Progress Patient-Stated? Author CCM Chronic Pain Care Plan Chronic Care Management Worsening( 8:02 AM HIGH SPEED WARPER TENDER) No Chika Watters, RN Note: Problem: Chronic Pain Goals: 1. Minimize further functional decline 2. Maximize quality of life 3. Control pain Strategies: - Activity/exercise program recommendation - Conservative stepwise pain medicine strategy with multi-disciplinary approach - Recommend healthy lifestyle strategies and compensatory methods as needed documented as of this encounter Visit Diagnoses Not on filedocumented in this encounter Care Teams Coal Pulverizer Operator Relationship Specialty Start Date End Date Bao Pierre MD [address] [address] PCP - General 12/22/16 documented as of this encounter
--- OUTSIDE RECORDS SUMMARY | 2024-10-01 08:44 | XMS_ITS | Encounter Summary ---
Author Organization [facility] [employer] 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 Author CCM Chronic Pain Care Plan Chronic Care Management Worsening( 8:02 AM MUTUAL FUND ANALYST) No Chika Watters, RN Note: Problem: Chronic Pain Goals: 1. Minimize further functional decline 2. Maximize quality of life 3. Control pain Strategies: - Activity/exercise program recommendation - Conservative stepwise pain medicine strategy with multi-disciplinary approach - Recommend healthy lifestyle strategies and compensatory methods as needed documented as of this encounter Procedures Procedure Name Priority Date/Time Associated Diagnosis Comments CARDIOLOGY DOCUMENT SCAN 02/04/2020 4:59 PM CDT documented in this encounter Results * SCAN - CARDIOLOGY (02/04/2020 4:59 PM CDT) Anatomical Region Laterality Modality Other Chris Garcia MD CV CARDIAC SERVICES PROCEDURE S Final Result documented in this encounter Visit Diagnoses Not on filedocumented in this encounter Care Teams Ophthalmic Technician Apprentice Relationship Specialty Start Date End Date Bao Pierre MD [address] [address] PCP - General 12/22/16 documented as of this encounter
--- OUTSIDE RECORDS SUMMARY | 2024-10-01 08:44 | XMS_ITS | Encounter Summary ---
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 Author CCM Chronic Pain Care Plan Chronic Care Management Worsening( 8:02 AM FIBERGLASS BOAT ASSEMBLY SUPERVISOR) No Chika Watters, RN Note: Problem: Chronic Pain Goals: 1. Minimize further functional decline 2. Maximize quality of life 3. Control pain Strategies: - Activity/exercise program recommendation - Conservative stepwise pain medicine strategy with multi-disciplinary approach - Recommend healthy lifestyle strategies and compensatory methods as needed documented as of this encounter Procedures Procedure Name Priority Date/Time Associated Diagnosis Comments CARDIOLOGY DOCUMENT SCAN 02/29/2020 4:37 AM CDT documented in this encounter Results * SCAN - CARDIOLOGY (02/29/2020 4:37 AM CDT) Anatomical Region Laterality Modality Other Chris Garcia MD CV CARDIAC SERVICES PROCEDURE S Final Result documented in this encounter Visit Diagnoses Not on filedocumented in this encounter Care Teams Railroad Car Repairman Relationship Specialty Start Date End Date Bao Pierre MD [address] [address] PCP - General 12/22/16 documented as of this encounter
--- OUTSIDE RECORDS SUMMARY | 2024-10-01 08:44 | XMS_ITS | Encounter Summary ---
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 Author CCM Chronic Pain Care Plan Chronic Care Management Worsening( 8:02 AM ANALYTICS INTERN) No Chika Watters, RN Note: Problem: Chronic Pain Goals: 1. Minimize further functional decline 2. Maximize quality of life 3. Control pain Strategies: - Activity/exercise program recommendation - Conservative stepwise pain medicine strategy with multi-disciplinary approach - Recommend healthy lifestyle strategies and compensatory methods as needed documented as of this encounter Procedures Procedure Name Priority Date/Time Associated Diagnosis Comments CARDIOLOGY DOCUMENT SCAN 02/19/2020 8:14 AM CDT documented in this encounter Results * SCAN - CARDIOLOGY (02/19/2020 8:14 AM CDT) Anatomical Region Laterality Modality Other Chris Garcia MD CV CARDIAC SERVICES PROCEDURE S Edited Result - Final documented in this encounter Visit Diagnoses Not on filedocumented in this encounter Care Teams Creel Clerk Relationship Specialty Start Date End Date Bao Pierre MD [address] [facility] [address] [place] [address] PCP - General 12/22/16 documented as of this encounter
--- OUTSIDE RECORDS SUMMARY | 2024-10-01 08:44 | XMS_ITS | Encounter Summary ---
Author Organization 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 Author CCM Chronic Pain Care Plan Chronic Care Management Worsening( 8:02 AM COMMUNICATION STUDIES PROFESSOR) No Chika Watters, RN Note: Problem: Chronic Pain Goals: 1. Minimize further functional decline 2. Maximize quality of life 3. Control pain Strategies: - Activity/exercise program recommendation - Conservative stepwise pain medicine strategy with multi-disciplinary approach - Recommend healthy lifestyle strategies and compensatory methods as needed documented as of this encounter Procedures Procedure Name Priority Date/Time Associated Diagnosis Comments CARDIOLOGY DOCUMENT SCAN 02/21/2020 9:40 PM CDT documented in this encounter Results * SCAN - CARDIOLOGY (02/21/2020 9:40 PM CDT) Anatomical Region Laterality Modality Other Chris Garcia MD CV CARDIAC SERVICES PROCEDURE S Final Result documented in this encounter Visit Diagnoses Not on filedocumented in this encounter Care Teams Assistant Operator Relationship Specialty Start Date End Date Bao Pierre MD [address] [address] PCP - General 12/22/16 documented as of this encounter
--- OUTSIDE RECORDS SUMMARY | 2024-10-01 08:44 | XMS_ITS | Encounter Summary ---
Author Organization [facility] [employer] of [facility] Address [address] [place] [address] Phone Care Team Providers Care Drying Machine Tender Name Role Phone Bao Pierre MD Primary Care Provider [phone] Encounter Details Date Type Department Care Team (Late st Contact Info) Description 12/16/2019 Telephone [facility] Cardiology [address] [facility] Advanced Medicine [address]th [place] [address] [place] [address] Chris Garcia MD [address] [place] [address] Social History Tobacco Use Types Packs/Day Years [...] on file Legal Sex Male 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 * Telephone Encounter - Jennifer Villegas RN - 12/16/2019 4:54 PM CDT Called shayy NA unable to leave message due mailbox full * Telephone Encounter - Tonia Kwan - 12/16/2019 3:51 PM CDT BRENNA PT'S RUG CLEANER HELPER, SHAYY, CALLING FOR PT. PT HAS A AN APPT SCHEDULED FOR THIS Monday FOR A TWO WEEK CATH FOLLOW UP. PT WANTING TO CONFIRM WITH DR GARCIA IF HE SHOULD COME FOR THIS APPT --PT KNOWS IT IS IMPORTANT--OR WOULD IT BE OK FOR PT TO WAIT TO BE SEEN DUE TO THE COVID -19 VIRUS? documented in this encounter Plan of Treatment Not on file documented as of this encounter Goals Goal Patient Goal Type Associated Problems Recent Progress Patient-Stated? Author CCM Chronic Pain Care Plan Chronic Care Management Worsening( 8:02 AM CRITICAL CARE TECHNICIAN) No Chika Watters, RN Note: Problem: Chronic Pain Goals: 1. Minimize further functional decline 2. Maximize quality of life 3. Control pain Strategies: - Activity/exercise program recommendation - Conservative stepwise pain medicine strategy with multi-disciplinary approach - Recommend healthy lifestyle strategies and compensatory methods as needed documented as of this encounter Visit Diagnoses Not on filedocumented in this encounter Care Teams Drying Machine Tender Relationship Specialty Start Date End Date Bao Pierre MD [address] [place] [address] PCP - General 12/22/16 documented as of this encounter
--- OUTSIDE RECORDS SUMMARY | 2024-10-01 08:44 | XMS_ITS | Encounter Summary ---
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 Author CCM Chronic Pain Care Plan Chronic Care Management Worsening( 8:02 AM WINDOW TINTER) No Chika Watters, RN Note: Problem: Chronic Pain Goals: 1. Minimize further functional decline 2. Maximize quality of life 3. Control pain Strategies: - Activity/exercise program recommendation - Conservative stepwise pain medicine strategy with multi-disciplinary approach - Recommend healthy lifestyle strategies and compensatory methods as needed documented as of this encounter Procedures Procedure Name Priority Date/Time Associated Diagnosis Comments SCAN - LABS 05/21/2020 10:02 AM CDT documented in this encounter Results * SCAN - LABS (05/21/2020 10:02 AM CDT) Chris Garcia MD Final Result documented in this encounter Visit Diagnoses Not on filedocumented in this encounter Care Teams Health Care Assistant Relationship Specialty Start Date End Date Bao Pierre MD [address] [address] PCP - General 12/22/16 documented as of this encounter
--- OUTSIDE RECORDS SUMMARY | 2024-10-01 08:44 | XMS_ITS | Encounter Summary ---
Author Organization [facility] [employer] of [facility] Address [address] [place] [address] Phone Care Team Providers Care Certified Surgical Technician Name Role Phone Bao Pierre MD Primary Care Provider [phone] Encounter Details Date Type Department Care Team (Late st Contact Info) Description 02/03/2020 Telephone [facility] Cardiology [address] [facility] [address] [place] [address] Zenaida Delacruz RN Social History Tobacco Use Types Packs/Day [...] on file 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 He has been feeling ok denies any further dizziness he states this only happened when he was digging weeds in the yard but he was told to stop doing this and so he has not done any of that and he has been feeling fine. He understand to stop the metoprolol and monitor bp's also called his client service manager Shayy and lmor for her * Telephone Encounter - Jennifer Villegas RN - 02/05/2020 10:46 AM CDT Called pt day care assistant jeramyor to stop metoprolol and to monitor bp's Also called pt directly he verbalized understanding * Telephone Encounter - Nena Hopkins RN - 02/05/2020 9:39 AM CDT Anita sent letter of request to Dr. Donaldson office yesterday for them to send recent labs * Telephone Encounter - Nena Hopkins RN - 02/04/2020 1:47 PM CDT Anita checking with Dr. Donaldson office to see if patient had labs drawn there * Telephone Encounter - Nena Hpokins RN - 02/04/2020 1:44 PM CDT LMOR for patient to call * Telephone Encounter - Nena Hopkins RN - 02/04/2020 8:47 AM CDT LMOR for patient to call. Labs results not resulted thru Dr. Garcia * Telephone Encounter - Zenaida Delacruz RN - 02/03/2020 4:44 PM CDT Per [facility] Make sure pt got bloods drawn call pt make sure they were drawn or call Dr Pierre office did they draw at [facility]? AND pt can d/c beta donny. documented in this encounter Plan of Treatment Not on file documented as of this encounter Goals Goal Patient Goal Type Associated Problems Recent Progress Patient-Stated? Author CCM Chronic Pain Care Plan Chronic Care Management Worsening( 8:02 AM TEMPLATE WORKER) No Chika Watters RN Note: Problem: Chronic Pain Goals: 1. Minimize further functional decline 2. Maximize quality of life 3. Control pain Strategies: - Activity/exercise program recommendation - Conservative stepwise pain medicine strategy with multi-disciplinary approach - Recommend healthy lifestyle strategies and compensatory methods as needed documented as of this encounter Visit Diagnoses Not on filedocumented in this encounter Care Teams Certified Surgical Technician Relationship Specialty Start Date End Date Bao Pierre MD [address] [address] PCP - General 12/22/16 documented as of this encounter
--- OUTSIDE RECORDS SUMMARY | 2024-10-01 08:44 | XMS_ITS | Encounter Summary ---
Author Organization 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 Author [facility] Chronic Pain Care Plan Chronic Care Management Worsening( 8:02 AM PRINTED CIRCUIT BOARD DESIGNER) No Chika Watters, RN Note: Problem: Chronic Pain Goals: 1. Minimize further functional decline 2. Maximize quality of life 3. Control pain Strategies: - Activity/exercise program recommendation - Conservative stepwise pain medicine strategy with multi-disciplinary approach - Recommend healthy lifestyle strategies and compensatory methods as needed documented as of this encounter Visit Diagnoses Not on filedocumented in this encounter Care Teams Lead Project Manager Relationship Specialty Start Date End Date Bao Pierre MD [address] [facility] [address] [place] [address] PCP - General 12/22/16 documented as of this encounter
--- OUTSIDE RECORDS SUMMARY | 2024-10-01 08:44 | XMS_ITS | Encounter Summary ---
Author Organization [facility] [employer] [facility] Address [address] [place] [address] Phone Care Team Providers Care Community Health Education Coordinator Name Role Phone Bao Pierre MD Primary Care Provider [phone] Encounter Details Date Type Department Care Team (Late st Contact Info) Description 01/27/2020 Telephone [facility] Cardiology [address] 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 Shayy is on contact list. Jennifer Villegas RN aware. * Telephone Encounter - Kunal Sarah - 01/30/2020 11:37 AM CDT Jose Patient EC is calling inquiring about patients telephone appoint w/Dr. Garcia. States they have been waiting and she is going to have to leave soon. Please CB mohamud * Telephone Encounter - Chika Webster RMA - 01/30/2020 10:58 AM CDT I got ahold of him * Telephone Encounter - Chika Webster RMA - 01/30/2020 10:54 AM CDT On my end the phone just rings * Telephone Encounter - Tonia Kwan - 01/30/2020 10:44 AM CDT Jose Pt's helper stating the phone just rang twice and then disconnected. Pt has a phone visit at 11:00 am this morning. * Telephone Encounter - Anita Arvizu CMA - 01/27/2020 4:28 PM CDT TELE VISIT SCHEDULED TO 01/30/20, PATIENT AWARE. * Telephone Encounter - Zenaida Delacruz RN - 01/27/2020 3:37 PM CDT Called to Shayy.Verbalized understanding. When he reread bottle he realized already taking 1/2 of an Imdur. * Telephone Encounter - Zenaida Delacruz RN - 01/27/2020 3:26 PM CDT And do not garden. * Telephone Encounter - Zenaida Delacruz RN - 01/27/2020 3:23 PM CDT Per [facility] does not need event recorder after all Cut imdur in 1/[address] Pierre Will need complete bloods CBC and BMP Make televisit [facility](Anita does his appt need to be changed?) * Telephone Encounter - Zenaida Delacruz RN - 01/27/2020 2:56 PM CDT Called to discuss w/ pt. Since cc / stent placement getting lihtheaded,puney , and back hut more when exert self gardening. Can do the gardening. Dig in dirt w/ little hand spade but when he picks uphis tools, bucket, seeds he has those symptoms. No Sob no Cp new since stent : 81 mg Asa, crestor 40mg daily, plavix, Metoprolol 25mg daily, Imdur 30mg daily. Review w/ [facility] rec: Event monitor And [facility] said he would call me back. Anything else? * Telephone Encounter - Zenaida Delacruz RN - 01/27/2020 2:17 PM CDT Spoketo Shayy.Sheis not able to see him since covid 19 sothis is per phone call. When he gets up todo anything he gets lightheaded. Ok if sitting down. Not just when from sitting to standing position. Has not cked his BP. Eating and drinking well. No CP or SOB * Telephone Encounter - nAay Garcia - 01/27/2020 11:40 AM CDT [place] She said that pt told her that ever since his 12/03/19 Cath, when he gets up out of a chair he is lightheaded., He wants to be seen sooner than his 03/04/20 appt. Please call to discuss. documented in this encounter Plan of Treatment Not on file documented as of this encounter Goals Goal Patient Goal Type Associated Problems Recent Progress Patient-Stated? Author CCM Chronic Pain Care Plan Chronic Care Management Worsening( 8:02 AM FOOD AND NUTRITION TEACHER) No Chika Watters RN Note: Problem: Chronic Pain Goals: 1. Minimize further functional decline 2. Maximize quality of life 3. Control pain Strategies: - Activity/exercise program recommendation - Conservative stepwise pain medicine strategy with multi-disciplinary approach - Recommend healthy lifestyle strategies and compensatory methods as needed documented as of this encounter Visit Diagnoses Not on filedocumented in this encounter Care Teams Community Health Education Coordinator Relationship Specialty Start Date End Date Bao Pierre MD [address] [address] PCP - General 12/22/16 documented as of this encounter
--- OUTSIDE RECORDS SUMMARY | 2024-10-01 08:44 | XMS_ITS | Encounter Summary ---
Author Organization [facility] Address [address] [place] [address] Phone Care Team Providers Care Crude Oil Treater Name Role Phone Geoff Pierre MD Primary Care Provider [phone] Reason for Referral * (Routine) - Closed Specialty Diagnoses / Procedures Referred By Contac t Referred To Contact Diagnoses History of percutaneous coronary intervention Mixed hyperlipidemia Essential hypertension VT (ventricular tachycardia) (HCC) Dizziness Status post insertion of drug eluting coronary artery stent Procedures ECG 12 lead Chris Garcia MD Phone: tel: fax: [facility] Referral ID Status Reason Start Date Expiration Date Visits Re quested Visits Authorized [id number] Closed 05/15/2020 06/14/2021 1 1 Encounter Details Date Type Department Care Team (Late st Contact Info) Description 05/15/2020 2:40 PM CDT Telemedicine [facility] Cardiology [facility] Medical Office Building [address] [place] [address] Chris Garcia MD [facility] [place] [address] History of percutaneous coronary intervention (Primary Dx); Mixed hyperlipidemia; Essential hypertension; VT (ventricular tachycardia) (CMS/HCC); Dizziness; Status post insertion of drug eluting coronary artery stent Social History Tobacco Use Types Packs/Day Years [...] on file Legal Sex Male 9:03 PM PSYCHOSOCIAL REHABILITATION COUNSELOR Gender Identity Not on file Sexual Orientation Straight 10/15/2019 10 :34 PM PSYCHOSOCIAL REHABILITATION COUNSELOR documented as of this encounter Last Filed Vital Signs Vital Sign Reading Time Taken Comments Blood Pressure 102/57 05/15/2020 1:40 PM CDT obtained by patient Pulse 64 05/15/2020 1:40 PM CDT obtained by patient Temperature - - Respiratory Rate - - Oxygen Saturation - - Inhaled Oxygen Concentration - - Weight 88.5 kg (195 lb) 05/15/2020 1:40 PM CDT obtained by patient Height 175.3 cm (5' 9 ) 05/15/2020 1:40 PM CDT Body Mass Index 28.8 05/15/2020 1:40 PM CDT documented in this encounter Patient Instructions * Patient Instructions* Prakash Pena RMA - 05/15/2020 2:40 PM CDT Please have your EKG and labs completed at [facility]. Please fast (no food or drink) for at least 12 hours prior to having your lipid panel drawn. documented in this encounter Progress Notes * Chris Garcia MD - 05/15/2020 12:00 AM CDT Date: 05/15/2020 Patient Name: ILSA ALVARES Date of : 1935 Date of Visit: 05/15/2020 This was a telemedicine visit with Ilsa Alvares, which took place via telephone. During the visit, I was located at my home and the patient was located at his home in the [facility]. The session started at 4:19 and ended at 4:30. The patient has been informed that the visit may not be secure and acknowledged the information. The option of participating in a telephone or video visit during the [facility] Emergency was explained to them. After being given an opportunity to ask questions about and discuss this type of visit, they verbally consented to proceeding with the telephone/video visit and understand that this service replaces an office visit. HISTORY OF PRESENT ILLNESS: Today we are seeing Mr. Ilsa Alvares for evaluation of coronary artery disease. Since we have seen him, Everything is fine. He has had no chest pain or any shortness of breath. He is being evaluated by a gastrointestinal physician at the request of Dr. Pierre. There have been no palpitations. If he is sitting for a long period of time and stands up, he does get somewhat lightheaded, but no major spells. He has been taking his medicines faithfully. CURRENT MEDICATIONS: 1. Baby aspirin. 2. Plavix 75 mg by mouth every day. 3. Crestor 40 mg a day. PHYSICAL EXAMINATION: His helper today checked his blood pressure and it was 127/65 sitting, and then 102/57 standing. PLAN: In this setting, the plans will be: 1. Continue current therapy. 2. They are going to get pressure stockings to see if this improves his blood pressure. 3. For the time being, we will hold off with any beta blockers. 4. We need a cholesterol profile. When we had in the repeat event monitor, we did not see any repeat V-tach post stenting. PROBLEM LIST: 1. LAD drug-eluting stent December 2019 with mild diffuse disease in the right. 2. High cholesterol. 3. Nonsustained ventricular tachycardia. 4. Hypertension. 5. Lightheaded spells. We will see him back in the office in 5 months. ELECTRONICALLY SIGNED - 05/18/2020 01:18 PM Chris Garcia M.D. undergraduate advisor Division of Cardiology SN/bp cc: GEOFF PIERRE M.D. / documented in this encounter Miscellaneous Notes * Addendum Note - Prakash Pena [facility] - 05/15/2020 2:40 PM CDTAddended by: PRAKASH PENA on: 05/19/2020 09:12 AM Modules accepted: Orders documented in this encounter Plan of Treatment Scheduled Orders Name Type Priority Associated Diagnoses Orde r Schedule ECG 12 lead ECG Routine History of percutaneous coronary intervention Mixed hyperlipidemia Essential hypertension VT (ventricular tachycardia) (CMS/HCC) Dizziness Status post insertion of drug eluting coronary artery stent Ordered: 05/15/2020 AST Lab Routine History of percutaneous coronary intervention Mixed hyperlipidemia Essential hypertension VT (ventricular tachycardia) (CMS/HCC) Dizziness Status post insertion of drug eluting coronary artery stent Expected: 05/15/2020, Expires: 05/15/2021 Lipid panel Lab Routine History of percutaneous coronary intervention Mixed hyperlipidemia Essential hypertension VT (ventricular tachycardia) (CMS/HCC) Dizziness Status post insertion of drug eluting coronary artery stent 1 Occurrences starting 05/19/2020 until 05/15/2021 documented as of this encounter Goals Goal Patient Goal Type Associated Problems Recent Progress Patient-Stated? Author CCM Chronic Pain Care Plan Chronic Care Management Worsening( 8:02 AM PSYCHOSOCIAL REHABILITATION COUNSELOR) Chkia Tracy, RN Note: Problem: Chronic Pain Goals: [...] insertion of drug eluting coronary artery stent documented in this encounter Care Teams Crude Oil Treater Relationship Specialty Start Date End Date Geoff Pierre MD [address] [address] PCP - General 12/22/16 documented as of this encounter
--- OUTSIDE RECORDS SUMMARY | 2024-10-01 08:44 | XMS_ITS | Encounter Summary ---
Author Organization [facility] Address [address] [place] [address] Phone Care Team Providers Care Draw Press Operator Name Role Phone Bao Pierre MD Primary Care Provider Encounter Details Date Type Department Care Team (Late st Contact Info) Description 05/18/2020 Telephone [facility] Cardiology [address] [facility] Advanced Medicine [address]th [place] [address] [place] [id number] Chris Garcia MD [address] [place] [address] Social History Tobacco Use Types Packs/Day Years [...] on file Legal Sex Male 9:03 PM 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 Called [employer] atphone [phone]. * Telephone Encounter - Jeannine Ag BS - 05/18/2020 9:52 AM CDT PT IS STILL AT THE MED STORE. NEEDS TO KNOW WHAT COMPRESSION IS NEEDED. * Telephone Encounter - Ghazala Caceres BS - 05/18/2020 9:15 AM CDT Jose Lucas from [employer] wanting to know what compression level socks Is wanting pt to get. Pt is at store waiting. documented in this encounter Plan of Treatment Not on file documented as of this encounter Goals Goal Patient Goal Type Associated Problems Recent Progress Patient-Stated? Author CCM Chronic Pain Care Plan Chronic Care Management Worsening( 8:02 AM RADIO ELECTRICIAN) No Chika Watters, RN Note: Problem: Chronic Pain Goals: 1. Minimize further functional decline 2. Maximize quality of life 3. Control pain Strategies: - Activity/exercise program recommendation - Conservative stepwise pain medicine strategy with multi-disciplinary approach - Recommend healthy lifestyle strategies and compensatory methods as needed documented as of this encounter Visit Diagnoses Not on filedocumented in this encounter Care Teams Draw Press Operator Relationship Specialty Start Date End Date Bao Pierre MD [address] [facility] [address] [place] [address] PCP - General 12/22/16 documented as of this encounter
--- OUTSIDE RECORDS SUMMARY | 2024-10-01 08:45 | XMS_ITS | Encounter Summary ---
Author Organization [facility] [address] [facility] Address [address] [place] [address] Phone Care Team Providers Care V Belt Mold Assembler And Curer Name Role Phone Geoff Pierre MD Primary Care Provider [phone] Reason for Referral * Diagnostic Imaging (Routine) - Closed Specialty Diagnoses / Procedures Referred By Contac t Referred To Contact Radiology Diagnoses VT (ventricular tachycardia) (HCC) Coronary artery disease involving [place] coronary artery of [place] heart without angina pectoris Procedures CT Heart Morphology And Coronary Arteries W Contrast Chris Garcia MD Phone: tel: fax: [address] [address] Referral ID Status Reason Start Date Expiration Date Visits Re quested Visits Authorized [id number] Closed 11/20/2019 05/31/2021 1 1 AL WORK SPECIALIST * (Routine) - Closed Specialty Diagnoses / Procedures Referred By Contac t Referred To Contact Diagnoses VT (ventricular tachycardia) (HCC) Coronary artery disease involving [place] coronary artery of [place] heart without angina pectoris Procedures ECG 12 lead Chris Garcia MD Phone: tel: fax: [facility] Referral ID Status Reason Start Date Expiration Date Visits Re quested Visits Authorized [id number] Closed 11/20/2019 05/31/2021 1 1 AL WORK SPECIALIST Reason for Visit * Reason Comments Follow-up Encounter Details Date Type Department Care Team (Late st Contact Info) Description 11/20/2019 10:20 AM SOCIAL WORK SPECIALIST Office Visit [facility] Cardiology [address] [facility] Medical Office Building [address] [place] [address] Chris Garcia MD [address] [place] [address] VT (ventricular tachycardia) (CMS/HCC) (Primary Dx); Coronary artery disease involving [place] coronary artery of [place] heart without angina pectoris Social History Tobacco Use Types Packs/Day Years Used Date Smoking Tobacco: Former Pipe 1 2015 Smokeless Tobacco: Never Comments:5-6 times a day Alcohol Use Standard Drinks/Week Comments No 0 (1 standard drink = 0.6 oz pur e alcohol) PHQ-2 Answer Date Recorded PHQ-2 Score 0 05/24/2019 Sex and Gender Information Value Date Recorded Sex Assigned at Not on file Legal Sex Male 9:03 PM SOCIAL WORK SPECIALIST Gender Identity Not on file Sexual Orientation Straight 10/15/2019 10 :34 PM SOCIAL WORK SPECIALIST documented as of this encounter Last Filed Vital Signs Vital Sign Reading Time Taken Comments Blood Pressure 118/58 11/20/2019 12:16 PM SOCIAL WORK SPECIALIST Pulse 62 11/20/2019 10:32 AM SOCIAL WORK SPECIALIST Temperature - - Respiratory Rate - - Oxygen Saturation 95% 11/20/2019 10:32 AM SOCIAL WORK SPECIALIST Inhaled Oxygen Concentration - - Weight 94.8 kg (209 lb) 11/20/2019 10:32 AM SOCIAL WORK SPECIALIST Height - - Body Mass Index 30.86 10/08/2019 10:08 AM SOCIAL WORK SPECIALIST documented in this encounter Patient Instructions * Patient Instructions* Chris Garcia MD - 11/20/2019 10:20 AM SOCIAL WORK SPECIALIST [phone] AL WORK SPECIALIST documented in this encounter Progress Notes * Chris Garcia MD - 11/20/2019 12:00 AM CST Date: 11/20/2019 Patient Name: ILSA ALVARES Date of : 1935 Date of Visit: 11/20/2019 HISTORY OF PRESENT ILLNESS: Today we are seeing Mr. Ilsa Alvares, a very pleasant 84-year-old individual, for evaluation of irregular heart beating, V-tach, and an abnormal stress test. Since we have last seen him, Mr. Alvares complains of vague right-sided chest discomfort that is actually too vague to describe and clearly notan issue with him. It's just there. Otherwise, he is only limited in how far he can walk before his back begins to hurt him, but within that parameter, he has been free of any exertional dyspnea. He denies PND, orthopnea, palpitations, or dizzy spells. MEDICATIONS: 1. Aspirin 81 mg. 2. Inulin fiber gummies. 3. Imdur 30 mg a day. 4. Mevacor 20 mg a day. 5. Toprol-XL 25 mg a day. PHYSICAL EXAMINATION: VITAL SIGNS: The blood pressure is 95/51; we are going to repeat that. Pulse 62. O2 saturation 95%.Weight 209. NECK: There is no jugular venous distention with the patient at 45 degrees. The carotids are brisk and equal without bruit. CHEST: Clear. HEART: The apical impulse is not enlarged nor sustained. The excursion is well preserved. There areno clicks or murmurs. EXTREMITIES: There is no clubbing, cyanosis, or peripheral edema. LABORATORY DATA: We did do a stress thallium study October 31 and this study showed a reversible inferior defect. Itwas moderate sized in the inferior wall. We did not have a prior one with which to compare. We also did an echocardiogram in October which showed normal LV function and no other abnormalities, no valve lesion. We also had him on telemetry monitoring which showed nonsustained spells of ventricular tachycardia. This gentleman did have a heart catheterization approximately 6 years ago which showed no coronary disease by the report. IMPRESSION AND PLAN: Mr. Alvares is asymptomatic. The chest pain he complains of is atypical. The stress test findings areoccurring without any old studies with which to compare. He did have some sort of office stress test before his first heart catheterization, but at least using the [employer], we do not see it was done in our system nor was it a dual imaging study. Coupled with the fact that he is having nonsustained V-tach and now has a significantly abnormal stress thallium, the safest procedure I feel would be to just try to screen him for significant coronary artery disease. We are going to send him for a CT angiogram and see if we can get a good imaging study from this. Otherwise, we are going to continue him on the same medical regimen, and we intend to see him back in the office in approximately 4 months' time. Further recommendations forthcoming. ELECTRONICALLY SIGNED - 11/20/2019 05:51 PM Chris Garcia M.D., F.A.C.C. Professor, Medicine SN/tm cc: GEOFF PIERRE MD / / AL WORK SPECIALIST documented in this encounter Plan of Treatment Not on file documented as of this encounter Goals Goal Patient Goal Type Associated Problems Recent Progress Patient-Stated? Author CCM Chronic Pain Care Plan Chronic Care Management Worsening( 8:02 AM SOCIAL WORK SPECIALIST) No Chika Watters, RN Note: Problem: Chronic Pain Goals: 1. Minimize further functional decline 2. Maximize quality of life 3. Control pain Strategies: - Activity/exercise program recommendation - Conservative stepwise pain medicine strategy with multi-disciplinary approach - Recommend healthy lifestyle strategies and compensatory methods as needed documented as of this encounter Procedures Procedure Name Priority Date/Time Associated Diagnosis Comments ECG 12-LEAD Routine 11/20/2019 VT (ventricular tachycardia) ([facility]) Coronary artery disease involving [place] coronary artery of [place] heart without angina pectoris documented in this encounter Results * CT Heart Morphology And Coronary Arteries W Contrast (11/22/2019 11:54 AM SOCIAL WORK SPECIALIST) Anatomical Region Laterality Modality Chest N/A Computed Tomogra phy 11/22/2019 2:16 PM SOCIAL WORK SPECIALIST Impressions 11/22/2019 2:20 PM SOCIAL WORK SPECIALIST 1. ??Multifocal calcified atherosclerosis involving the left anterior descending coronary artery, resulting in approximately 75% stenosis in the distal aspect of the mid left anterior descending coronary artery. ??The degree of stenosis at this level is difficult to accurately assess given the calcium blooming. 2. ??Multifocal calcified atherosclerosis along the left circumflex coronary artery resulting in mild stenosis. 3. ??Calcified atherosclerosis resulting in mild stenosis in the proximal and mid right coronary artery. ??Mixed calcified and noncalcified atherosclerosis results in moderate stenosis at the junction of the mid to distal right coronary artery. Dictated by: Pérez Nicholson M.D. The radiology attending physician has personally reviewed this study, and had reviewed and/or edited this written report and agrees with it. Electronically signed by: Neal Griffiths M.D. Narrative 11/22/2019 2:20 PM SOCIAL WORK SPECIALIST EXAMINATION: CORONARY CT ANGIOGRAM HISTORY: Arrhythmia and concern for coronary artery disease. Inferior wall ischemia on stress test. TECHNIQUE: CT angiography of the coronary arteries was performed after the administration of 100 mL of Optiray 350. Images were also obtained precontrast for the purposes of calcium scoring. ??0 mg of metoprolol was administered intravenously prior to the examination. The patient's heart rate was 55 bpm. ??Images were transferred to a 3D workstation for additional post-processing. FINDINGS: The coronary arteries are right system dominant. There is no anomalous coronary artery origin. Right coronary system: There is calcified atherosclerosis involving the proximal and mid right coronary artery resulting in less than 50% stenosis. ??There is mixed calcified and noncalcified atherosclerosis at the junction of the mid to distal right coronary artery resulting in approximately 50% stenosis. ?? Left coronary system: There is calcified atherosclerosis involving the mid left anterior descending coronary artery just after the takeoff of the 1st diagonal branch resulting in less than 50% stenosis. ??There is calcified atherosclerosis resulting in approximately 75% stenosis of the distal aspect of the mid left anterior descending coronary artery. ??The degree of stenosis is difficult to assess given the calcium blooming at this level. ??There is multifocal calcified atherosclerosis in the distal aspect of the mid left anterior descending coronary artery resulting in less than 25% stenosis. ??There is multifocal short segment calcified atherosclerosis involving the left circumflex coronary artery resulting in less than 25% stenosis. The calculated calcium score is 148. This places the patient in the less than 25th percentile. The left ventricular ejection fraction is 58%. Other findings: There is mild volume loss in the lung bases. 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 Procedure Note Neal Griffiths MD - 11/22/2019 EXAMINATION: CORONARY CT ANGIOGRAM HISTORY: Arrhythmia and concern for coronary artery disease. Inferior wall ischemia on stress test. TECHNIQUE: CT angiography of the coronary arteries was performed after the administration of 100 mL of Optiray 350. Images were also obtained precontrast for the purposes of calcium scoring. 0 mg of metoprolol was administered intravenously prior to the examination. The patient's heart rate was 55 bpm. Images were transferred to a 3D workstation for additional post-processing. FINDINGS: The coronary arteries are right system dominant. There is no anomalous coronary artery origin. Right coronary system: There is calcified atherosclerosis involving the proximal and mid right coronary artery resulting in less than 50% stenosis. There is mixed calcified and noncalcified atherosclerosis at the junction of the mid to distal right coronary artery resulting in approximately 50% stenosis. Left coronary system: There is calcified atherosclerosis involving the mid left anterior descending coronary artery just after the takeoff of the 1st diagonal branch resulting in less than 50% stenosis. There is calcified atherosclerosis resulting in approximately 75% stenosis of the distal aspect of the mid left anterior descending coronary artery. The degree of stenosis is difficult to assess given the calcium blooming at this level. There is multifocal calcified atherosclerosis in the distal aspect of the mid left anterior descending coronary artery resulting in less than 25% stenosis. There is multifocal short segment calcified atherosclerosis involving the left circumflex coronary artery resulting in less than 25% stenosis. The calculated calcium score is 148. This places the patient in the less than 25th percentile. The left ventricular ejection fraction is 58%. Other findings: There is mild volume loss in the lung bases. 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 IMPRESSION: 1. Multifocal calcified atherosclerosis involving the left anterior descending coronary artery, resulting in approximately 75% stenosis in the distal aspect of the mid left anterior descending coronary artery. The degree of stenosis at this level is difficult to accurately assess given the calcium blooming. 2. Multifocal calcified atherosclerosis along the left circumflex coronary artery resulting in mild stenosis. 3. Calcified atherosclerosis resulting in mild stenosis in the proximal and mid right coronary artery. Mixed calcified and noncalcified atherosclerosis results in moderate stenosis at the junction of the mid to distal right coronary artery. Dictated by: Pérez Nicholson M.D. The radiology attending physician has personally reviewed this study, and had reviewed and/or edited this written report and agrees with it. Electronically signed by: Neal Griffiths M.D. us Chris Garcia MD IMG CT PROCEDURES Final Resul t * ECG 12 lead (11/20/2019) us Chris Garcia MD ECG ORDERABLES Edited Result - Final documented in this encounter Visit Diagnoses Diagnosis VT (ventricular tachycardia) (HCC)- Primary Paroxysmal ventricular tachycardia Coronary artery disease involving [place] coronary artery of [place] heart without angina pectoris VT (ventricular tachycardia) (HCC) Paroxysmal ventricular tachycardia Coronary artery disease involving [place] coronary artery of [place] heart without angina pectoris documented in this encounter Historical Medications * This list may reflect changes made after this encounter. aspirin 81 mg enteric coated tablet Take 1 tablet (81 mg total) by mouth daily calcium phosphate-vitamin D3 250 mg calcium- 500 unit tablet,chewable Take by mouth 2020 added in this encounter Care Teams V Belt Mold Assembler And Curer Relationship Specialty Start Date End Date Geoff Pierre MD [address] [address] PCP - General 12/22/16 documented as of this encounter
--- OUTSIDE RECORDS SUMMARY | 2024-10-01 08:45 | XMS_ITS | Encounter Summary ---
Author Organization [facility] [employer] [facility] Address [address] [place] [address] Phone Care Team Providers Care Show Jumping Instructor Name Role Phone Bao Pierre MD Primary Care Provider [phone] Encounter Details Date Type Department Care Team (Latest Contact Info) Description 11/05/2019 Orders Only [facility] Chris Garcia MD [address] [place] [address] Social History Tobacco Use Types Packs/Day Years Used Date Smoking Tobacco: Former Pipe 2015 Smokeless Tobacco: Never Comments:5-6 times a day Alcohol Use Standard Drinks/Week Comments No 0 (1 standard drink = 0.6 oz pur e alcohol) PHQ-2 Answer Date Recorded PHQ-2 Score 0 05/24/2019 Sex and Gender Information Value Date Recorded Sex Assigned at Not on file Legal Sex Male 9:03 PM MANAGER CARE MANAGEMENT Gender Identity Not on file Sexual Orientation Straight 10/15/2019 10 :34 PM MANAGER CARE MANAGEMENT documented as of this encounter Plan of Treatment Not on file documented as of this encounter Goals Goal Patient Goal Type Associated Problems Recent Progress Patient-Stated? Author CCM Chronic Pain Care Plan Chronic Care Management Worsening( 8:02 AM MANAGER CARE MANAGEMENT) No Chika Watters, RN Note: Problem: Chronic Pain Goals: 1. Minimize further functional decline 2. Maximize quality of life 3. Control pain Strategies: - Activity/exercise program recommendation - Conservative stepwise pain medicine strategy with multi-disciplinary approach - Recommend healthy lifestyle strategies and compensatory methods as needed documented as of this encounter Procedures Procedure Name Priority Date/Time Associated Diagnosis Comments CARDIOLOGY DOCUMENT SCAN 11/05/2019 8:13 AM MANAGER CARE MANAGEMENT documented in this encounter Results * SCAN - CARDIOLOGY (11/05/2019 8:13 AM MANAGER CARE MANAGEMENT) Anatomical Region Laterality Modality Other Chris Garcia MD CV CARDIAC SERVICES PROCEDURE S Final Result documented in this encounter Visit Diagnoses Not on filedocumented in this encounter Care Teams Show Jumping Instructor Relationship Specialty Start Date End Date Bao Pierre MD [address] [address] PCP - General 12/22/16 documented as of this encounter
--- OUTSIDE RECORDS SUMMARY | 2024-10-01 08:45 | XMS_ITS | Encounter Summary ---
Author Organization [facility] Address [address] [place] [address] Phone Care Team Providers Care Chemical Equipment Controller Name Role Phone Bao Pierre MD Primary Care Provider [phone] Encounter Details Date Type Department Care Team (Latest Contact Info) Description 11/15/2019 Orders Only [facility] Chris Garcia MD [address] [place] [address] Social History Tobacco Use Types Packs/Day Years Used Date Smoking Tobacco: Former Pipe 2015 Smokeless Tobacco: Never Comments:5-6 times a day Alcohol Use Standard Drinks/Week Comments No 0 (1 standard drink = 0.6 oz pur e alcohol) PHQ-2 Answer Date Recorded PHQ-2 Score 0 05/24/2019 Sex and Gender Information Value Date Recorded Sex Assigned at Not on file Legal Sex Male 9:03 PM HYDROSTATIC TESTER Gender Identity Not on file Sexual Orientation Straight 10/15/2019 10 :34 PM HYDROSTATIC TESTER documented as of this encounter Plan of Treatment Not on file documented as of this encounter Goals Goal Patient Goal Type Associated Problems Recent Progress Patient-Stated? Author CCM Chronic Pain Care Plan Chronic Care Management Worsening( 8:02 AM HYDROSTATIC TESTER) No Chika Watters, RN Note: Problem: Chronic Pain Goals: 1. Minimize further functional decline 2. Maximize quality of life 3. Control pain Strategies: - Activity/exercise program recommendation - Conservative stepwise pain medicine strategy with multi-disciplinary approach - Recommend healthy lifestyle strategies and compensatory methods as needed documented as of this encounter Procedures Procedure Name Priority Date/Time Associated Diagnosis Comments CARDIOLOGY DOCUMENT SCAN 11/15/2019 6:31 PM HYDROSTATIC TESTER documented in this encounter Results * SCAN - CARDIOLOGY (11/15/2019 6:31 PM HYDROSTATIC TESTER) Anatomical Region Laterality Modality Other Chris Garcia MD CV CARDIAC SERVICES PROCEDURE S Final Result documented in this encounter Visit Diagnoses Not on filedocumented in this encounter Care Teams Chemical Equipment Controller Relationship Specialty Start Date End Date Bao Pierre MD [address] [address] PCP - General 12/22/16 documented as of this encounter
--- OUTSIDE RECORDS SUMMARY | 2024-10-01 08:45 | XMS_ITS | Encounter Summary ---
Author Organization [facility] Address [address] [place] [address] Phone Care Team Providers Care Manager Utilization Name Role Phone Bao Pierre MD Primary Care Provider [phone] Encounter Details Date Type Department Care Team (Latest Contact Info) Description 11/28/2019 Orders Only [facility] Chris Garcia MD [address] [place] [address] Social History Tobacco Use Types Packs/Day Years Used Date Smoking Tobacco: Former Pipe 2015 Smokeless Tobacco: Never Comments:5-6 times a day Alcohol Use Standard Drinks/Week Comments No 0 (1 standard drink = 0.6 oz pur e alcohol) PHQ-2 Answer Date Recorded PHQ-2 Score 0 05/24/2019 Sex and Gender Information Value Date Recorded Sex Assigned at Not on file Legal Sex Male 9:03 PM UNIX ARCHITECT Gender Identity Not on file Sexual Orientation Straight 10/15/2019 10 :34 PM UNIX ARCHITECT documented as of this encounter Plan of Treatment Not on file documented as of this encounter Goals Goal Patient Goal Type Associated Problems Recent Progress Patient-Stated? Author CCM Chronic Pain Care Plan Chronic Care Management Worsening( 8:02 AM UNIX ARCHITECT) No Chika Watters, RN Note: Problem: Chronic Pain Goals: 1. Minimize further functional decline 2. Maximize quality of life 3. Control pain Strategies: - Activity/exercise program recommendation - Conservative stepwise pain medicine strategy with multi-disciplinary approach - Recommend healthy lifestyle strategies and compensatory methods as needed documented as of this encounter Procedures Procedure Name Priority Date/Time Associated Diagnosis Comments SCAN - LABS 11/28/2019 3:06 PM UNIX ARCHITECT documented in this encounter Results * SCAN - LABS (11/28/2019 3:06 PM UNIX ARCHITECT) Chris Garcia MD Final Result documented in this encounter Visit Diagnoses Not on filedocumented in this encounter Care Teams Manager Utilization Relationship Specialty Start Date End Date Bao Pierre MD [address] [address] PCP - General 12/22/16 documented as of this encounter
--- OUTSIDE RECORDS SUMMARY | 2024-10-01 08:45 | XMS_ITS | Encounter Summary ---
Author Organization [facility] Address [address] [place] [address] Phone Care Team Providers Care Sales Support Associate Name Role Phone Bao Pierre MD Primary Care Provider Encounter Details Date Type Department Care Team (Latest Contact Info) Description 11/12/2019 Orders Only [facility] Chris Garcia MD [address] [place] [address] Social History Tobacco Use Types Packs/Day Years Used Date Smoking Tobacco: Former Pipe 2015 Smokeless Tobacco: Never Comments:5-6 times a day Alcohol Use Standard Drinks/Week Comments No 0 (1 standard drink = 0.6 oz pur e alcohol) PHQ-2 Answer Date Recorded PHQ-2 Score 0 05/24/2019 Sex and Gender Information Value Date Recorded Sex Assigned at Not on file Legal Sex Male 9:03 PM TITLE CLOSER Gender Identity Not on file Sexual Orientation Straight 10/15/2019 10 :34 PM TITLE CLOSER documented as of this encounter Plan of Treatment Not on file documented as of this encounter Goals Goal Patient Goal Type Associated Problems Recent Progress Patient-Stated? Author CCM Chronic Pain Care Plan Chronic Care Management Worsening( 8:02 AM TITLE CLOSER) No Chika Watters, RN Note: Problem: Chronic Pain Goals: 1. Minimize further functional decline 2. Maximize quality of life 3. Control pain Strategies: - Activity/exercise program recommendation - Conservative stepwise pain medicine strategy with multi-disciplinary approach - Recommend healthy lifestyle strategies and compensatory methods as needed documented as of this encounter Procedures Procedure Name Priority Date/Time Associated Diagnosis Comments SCAN - LABS 11/12/2019 6:00 PM TITLE CLOSER documented in this encounter Results * SCAN - LABS (11/12/2019 6:00 PM TITLE CLOSER) Chris Garcia MD Final Result documented in this encounter Visit Diagnoses Not on filedocumented in this encounter Care Teams Sales Support Associate Relationship Specialty Start Date End Date Bao Pierre MD [address] [address] PCP - General 12/22/16 documented as of this encounter
--- OUTSIDE RECORDS SUMMARY | 2024-10-01 08:45 | XMS_ITS | Encounter Summary ---
Author Organization [facility] Address [address] [place] [address] Care Team Providers Care Clinical Social Worker Name Role Phone Bao Pierre MD Primary Care Provider [phone] Reason for Visit * Reason Onset Date Comments Pre-Surgical Call 11/21/2019 Encounter Details Date Type Department Care Team (Late st Contact Info) Description 11/21/2019 Telephone [facility] [place] [facility] [address] [facility] Advanced [facility] [address] [place], [place] [id number] Eddi Shafer MD [address] [facility] [address] [facility] [id number] [place], [place] [id number] Pre-Surgical Call Social History Tobacco Use Types [...] on file Legal Sex Male 9:03 PM DINKEY DISPATCHER Gender Identity Not on file Sexual Orientation Straight 10/15/2019 10 :34 PM DINKEY DISPATCHER documented as of this encounter Miscellaneous Notes * Telephone Encounter - Chelly Allen RN - 11/21/2019 3:49 PM DINKEY DISPATCHER Left message with pre procedure instructions. Patient instructed to call back if on blood thinner, antibiotics or have had a fever. EY DISPATCHER documented in this encounter Plan of Treatment Not on file documented as of this encounter Goals Goal Patient Goal Type Associated Problems Recent Progress Patient-Stated? Author CCM Chronic Pain Care Plan Chronic Care Management Worsening( 8:02 AM DINKEY DISPATCHER) No Chika Watters RN Note: Problem: Chronic Pain Goals: 1. Minimize further functional decline 2. Maximize quality of life 3. Control pain Strategies: - Activity/exercise program recommendation - Conservative stepwise pain medicine strategy with multi-disciplinary approach - Recommend healthy lifestyle strategies and compensatory methods as needed documented as of this encounter Visit Diagnoses Not on filedocumented in this encounter Care Teams Clinical Social Worker Relationship Specialty Start Date End Date Bao Pierre MD [address] [address] PCP - General 12/22/16 documented as of this encounter
--- OUTSIDE RECORDS SUMMARY | 2024-10-01 08:45 | XMS_ITS | Encounter Summary ---
Author Organization [facility] Address [address] [place] [address] Phone Care Team Providers Care Floor Layer Name Role Phone Bao Pierre MD Primary Care Provider [phone] Encounter Details Date Type Department Care Team (Late st Contact Info) Description 11/08/2019 Orders Only [facility] Orthopaedic Surgery [address] [facility] Advanced Medicine 12th [place] [address] [place] [address] Hilary Liang MD [address] [place] [address] Social History Tobacco Use Types Packs/Day Years [...] file Legal Sex Male 9:03 PM MANAGER HEART Gender Identity Not on file Sexual Orientation Straight 10/15/2019 10 :34 PM MANAGER HEART documented as of this encounter Ordered Prescriptions Prescription Sig Dispense Quantity Refills Last Filled Start Date End Date amoxicillin (amoxicillin) 500 mg tablet/capsuleIndi cations:Prophylaxi s, Medical Take 1 tablet/capsule (500 mg total) by mouth as directed TAKE 4 PILL 1 HOUR BEFORE DENTAL APPOINTMENT. 12 tablet/capsule 11/08/2019 0 documented in this encounter Plan of Treatment Not on file documented as of this encounter Goals Goal Patient Goal Type Associated Problems Recent Progress Patient-Stated? Author CCM Chronic Pain Care Plan Chronic Care Management Worsening( 8:02 AM MANAGER HEART) Chika Tracy, RN Note: Problem: Chronic Pain Goals: 1. Minimize further functional decline 2. Maximize quality of life 3. Control pain Strategies: - Activity/exercise program recommendation - Conservative stepwise pain medicine strategy with multi-disciplinary approach - Recommend healthy lifestyle strategies and compensatory methods as needed documented as of this encounter Visit Diagnoses Not on filedocumented in this encounter Care Teams Floor Layer Relationship Specialty Start Date End Date Bao Pierre MD [address] [address] [place] [address] PCP - General 12/22/16 documented as of this encounter
--- OUTSIDE RECORDS SUMMARY | 2024-10-01 08:45 | XMS_ITS | Encounter Summary ---
Author Organization [facility] Address [address] [place] [address] Phone Care Team Providers Care Supervisor Advice Name Role Phone Bao Pierre MD Primary Care Provider [phone] Encounter Details Date Type Department Care Team (Latest Contact Info) Description 10/25/2019 Orders Only [facility] Chris Garcia MD [address] [place] [address] Social History Tobacco Use Types Packs/Day Years Used Date Smoking Tobacco: Former Pipe 2015 Smokeless Tobacco: Never Comments:5-6 times a day Alcohol Use Standard Drinks/Week Comments No 0 (1 standard drink = 0.6 oz pur e alcohol) PHQ-2 Answer Date Recorded PHQ-2 Score 0 05/24/2019 Sex and Gender Information Value Date Recorded Sex Assigned at Not on file Legal Sex Male 9:03 PM JIGGER CROWN POUNCING MACHINE OPERATOR Gender Identity Not on file Sexual Orientation Straight 10/15/2019 10 :34 PM JIGGER CROWN POUNCING MACHINE OPERATOR documented as of this encounter Plan of Treatment Not on file documented as of this encounter Goals Goal Patient Goal Type Associated Problems Recent Progress Patient-Stated? Author CCM Chronic Pain Care Plan Chronic Care Management Worsening( 8:02 AM JIGGER CROWN POUNCING MACHINE OPERATOR) No Chika Watters, RN Note: [...] Comments CARDIOLOGY DOCUMENT SCAN 020 10:45 AM JIGGER CROWN POUNCING MACHINE OPERATOR documented in this encounter Results * SCAN - CARDIOLOGY (10/25/2019 10:45 AM JIGGER CROWN POUNCING MACHINE OPERATOR) Anatomical Region Laterality Modality Other Chris Garcia MD CV CARDIAC SERVICES PROCEDURE S Final Result documented in this encounter Visit Diagnoses Not on filedocumented in this encounter Care Teams Supervisor Advice Relationship Specialty Start Date End Date Bao Pierre MD [address] [address] PCP - General 12/22/16 documented as of this encounter
--- OUTSIDE RECORDS SUMMARY | 2024-10-01 08:45 | XMS_ITS | Encounter Summary ---
Author Organization [facility] Address [address] [place] [address] Phone Care Team Providers Care Cupola Operator Insulation Name Role Phone Bao Pierre MD Primary Care Provider [phone] Encounter Details Date Type Department Care Team (Latest Contact Info) Description 10/31/2019 Orders Only [facility] Chris Garcia MD [address] [place] [address] Social History Tobacco Use Types Packs/Day Years Used Date Smoking Tobacco: Former Pipe 2015 Smokeless Tobacco: Never Comments:5-6 times a day Alcohol Use Standard Drinks/Week Comments No 0 (1 standard drink = 0.6 oz pur e alcohol) PHQ-2 Answer Date Recorded PHQ-2 Score 0 05/24/2019 Sex and Gender Information Value Date Recorded Sex Assigned at Not on file Legal Sex Male 9:03 PM PAINT DIPPER Gender Identity Not on file Sexual Orientation Straight 10/15/2019 10 :34 PM PAINT DIPPER documented as of this encounter Plan of Treatment Not on file documented as of this encounter Goals Goal Patient Goal Type Associated Problems Recent Progress Patient-Stated? Author CCM Chronic Pain Care Plan Chronic Care Management Worsening( 8:02 AM PAINT DIPPER) No Chika Watters, RN Note: Problem: Chronic Pain Goals: 1. Minimize further functional decline 2. Maximize quality of life 3. Control pain Strategies: - Activity/exercise program recommendation - Conservative stepwise pain medicine strategy with multi-disciplinary approach - Recommend healthy lifestyle strategies and compensatory methods as needed documented as of this encounter Procedures Procedure Name Priority Date/Time Associated Diagnosis Comments CARDIOLOGY DOCUMENT SCAN 10/31/2019 2:08 AM PAINT DIPPER documented in this encounter Results * SCAN - CARDIOLOGY (10/31/2019 2:08 AM PAINT DIPPER) Anatomical Region Laterality Modality Other Chris Garcia MD CV CARDIAC SERVICES PROCEDURE S Final Result documented in this encounter Visit Diagnoses Not on filedocumented in this encounter Care Teams Cupola Operator Insulation Relationship Specialty Start Date End Date Bao Pierre MD [address] [address] PCP - General 12/22/16 documented as of this encounter
--- OUTSIDE RECORDS SUMMARY | 2024-10-01 08:45 | XMS_ITS | Encounter Summary ---
Author Organization [facility] Address [address] [place] [address] Phone Care Team Providers Care Metal Reclamation Kettle Tender Name Role Phone Bao Pierre MD Primary Care Provider [phone] Encounter Details Date Type Department Care Team (Late st Contact Info) Description 11/08/2019 Telephone [facility] Cardiology [address] [facility] Medical Office [address] [place] [address] Chris Garcia MD [address] [facility] [address] [place] [address] Social History Tobacco Use Types [...] on file Legal Sex Male 9:03 PM SET UP TECHNICIAN Gender Identity Not on file Sexual Orientation Straight 10/15/2019 10 :34 PM SET UP TECHNICIAN documented as of this encounter Ordered Prescriptions Prescription Sig Dispense Quantity Refills Last Filled Start Date End Date metoprolol XL (TOPROL-XL) 25 mg 24 hr tablet Take 1 tablet (25 mg total) by mouth daily 30 tablet 3 11/08/2019 0 isosorbide mononitrate ER (IMDUR) 30 mg 24 hr tablet Take 0.5 tablets (15 mg total) by mouth daily 15 tablet 3 11/08/2019 0 documented in this encounter Miscellaneous Notes * Telephone Encounter - Anita Arvizu CMA - 11/08/2019 12:03 PM CST Faxed bmp order to [facility] lab. UP TECHNICIAN * Telephone Encounter - Jennifer Villegas RN - 11/08/2019 11:34 AM CST Spoke with pt and his human resources office assistant Shayy and went over instructions. Gave pt apr UP TECHNICIAN UP TECHNICIAN * Telephone Encounter - Jennifer Villegas RN - 11/08/2019 10:08 AM CST ----- Message from Chris Garcia MD sent at 11/08/2019 9:36 AM SET UP TECHNICIAN ----- Start toprol xl 25mg Asa 81 mg imdur 15mg every day Get BMP Work in next 2 wks UP TECHNICIAN UP TECHNICIAN documented in this encounter Plan of Treatment Scheduled Orders Name Type Priority Associated Diagnoses Orde r Schedule Basic metabolic panel Lab Routine Paroxysmal ventricular tachycardia (CMS/HCC) Other persistent atrial fibrillation Expected: 11/08/2019, Expires: 11/08/2020 documented as of this encounter Goals Goal Patient Goal Type Associated Problems Recent Progress Patient-Stated? Author [facility] Chronic Pain Care Plan Chronic Care Management Worsening( 8:02 AM SET UP TECHNICIAN) Chika Tracy RN Note: Problem: Chronic Pain Goals: 1. Minimize further functional decline 2. Maximize quality of life 3. Control pain Strategies: - Activity/exercise program recommendation - Conservative stepwise pain medicine strategy with multi-disciplinary approach - Recommend healthy lifestyle strategies and compensatory methods as needed documented as of this encounter Visit Diagnoses Diagnosis Paroxysmal ventricular tachycardia (HCC)- Primary Paroxysmal ventricular tachycardia Other persistent atrial fibrillation (HCC) documented in this encounter Care Teams Metal Reclamation Kettle Tender Relationship Specialty Start Date End Date Bao Pierre MD [address] [address] PCP - General 12/22/16 documented as of this encounter
--- OUTSIDE RECORDS SUMMARY | 2024-10-01 08:45 | XMS_ITS | Encounter Summary ---
Author Organization [facility] Healthcare Address [address] [place] [address] Care Team Providers Care Fishing Instructor Name Role Phone Bao Pierre MD Primary Care Provider [phone] Reason for Visit * Diagnostic Imaging (Routine) - Closed Specialty Diagnoses / Procedures Referred By Contac t Referred To Contact Diagnoses Paroxysmal ventricular tachycardia (HCC) Procedures NM MPI SPECT (Rest and/or Stress) Multiple Studies Jerod Garcia MD Phone: tel: fax: [address] [phone] Referral ID Status Reason Start Date Expiration Date Visits Re quested Visits Authorized [id number] Closed 10/16/2019 04/26/2021 1 1 Encounter Details Date Type Department Care Team (Latest Contact Info) Description 11/01/2019 8:59 AM LIBRARY MONITOR - 11/01/2019 11:59 PM LIBRARY MONITOR Hospital Encounter [facility] [address] [place] [address] Jerod Garcia MD [address] [address] Paroxysmal ventricular tachycardia (CMS/HCC) Discharge Disposition: Discharge to home or self [...] on file Legal Sex Male 9:03 PM LIBRARY MONITOR Gender Identity Not on file Sexual Orientation Straight 10/15/2019 10 :34 PM LIBRARY MONITOR documented as of this encounter Last Filed Vital Signs Vital Sign Reading Time Taken Comments Blood Pressure 121/60 11/01/2019 10:10 AM LIBRARY MONITOR Pulse 80 11/01/2019 10:10 AM LIBRARY MONITOR Temperature - - Respiratory Rate - - Oxygen Saturation - - Inhaled Oxygen Concentration - - Weight - - Height - - Body Mass Index - - documented in this encounter Medications at Time of Discharge glucosamine-chond roitin 500-400 mg tablet Take 1 tablet by mouth daily alfuzosin ER (UROXATRAL) 10 mg 24 hr tabletIndications :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 Take 1 tablet (10 mg total) by mouth daily 4 aspirin 81 mg enteric coated tablet ADULT ASPIRIN EC LOW STRENGTH 81 MG ORAL TABLET DELAYED RELEASE 09/13/2013 1 vcsv-nqh-lal-dayana- vjxm-gnhh-kxi (Fiber 6) 1,000 mg tablet FIBER 09/13/2013 1 finasteride (PROSCAR) 5 mg tabletIndications :benign [...] (ZESTORETIC) 10-12.5 mg per tablet 10/02/1969 2 lovastatin (MEVACOR) 20 mg tabletIndications :hyperlipidemia Take 20 mg by mouth daily. 12 02/15/2018 0 naproxen sodium 220 mg capsule ALEVE CAPSULE 09/13/2013 02 1 documented as of this encounter Discharge Disposition Disposition Code Departure Means Destination Discharge to home or self care documented in this encounter Plan of Treatment Not on file documented as of this encounter Goals Goal Patient Goal Type Associated Problems Recent Progress Patient-Stated? Author CCM Chronic Pain Care Plan Chronic Care Management Worsening( 8:02 AM LIBRARY MONITOR) Chika Tracy, RN Note: Problem: Chronic Pain Goals: 1. Minimize further functional decline 2. Maximize quality of life 3. Control pain Strategies: - Activity/exercise program recommendation - Conservative stepwise pain medicine strategy with multi-disciplinary approach - Recommend healthy lifestyle strategies and compensatory methods as needed documented as of this encounter Procedures Procedure Name Priority Date/Time Associated Diagnosis Comments NM MPI SPECT (REST AND/OR STRESS) MULTIPLE STUDIES Schedule Routine, Read Routine (OP Routine) 11/01/2019 12:44 PM LIBRARY MONITOR Paroxysmal ventricular tachycardia (CMS/HCC) STRESS TEST FOR DUAL READ Schedule Routine, Read Routine (OP Routine) 11/01/2019 10:22 AM LIBRARY MONITOR Paroxysmal ventricular tachycardia (CMS/HCC) documented in this encounter Results * Stress Test for Myocardial Perfusion (11/01/2019 10:22 AM LIBRARY MONITOR) Anatomical Region Laterality Modality Nuclear Medicine 11/01/2019 9:50 AM LIBRARY MONITOR Narrative 11/01/2019 12:51 PM LIBRARY MONITOR Patient name: Frandy Alvares Date of test: 11/01/2019 Type of Test: Pharmacologic Nuclear Stress Hospital #: [id number] ?Location: [facility] Referring Physician(s): JEROD GARCIA MD Supervised/Interpreted by: Angeles Conklin MD/Yimi Limon MD RN: Coby Dior RN Stress Agent: Regadenoson Reason for Test: Ventricular tachycardia (VT) Cardiac History: No Cardiac Disease, SVT ??Other History: Risk Factors: Past smoker PHYSICAL EXAM: Lungs: Clear ?? Heart Sounds: Normal ?? Carotid Pulse: Brisk ??Carotid Brut: None Medications: no cardiac meds Medications withheld: BASELINE Electrocardiogram: Heart rate: 62 ?? BP: 150/70 Rhythm: Sinus Rhythm with 1st degree AVB ?Conduction Defects: Q Waves: Other: ST: HEMODYNAMIC PARAMETERS: Agent: Regadenoson ??0.4mg over ??min Peak Heart Rate: 84 Peak BP: 150/70 PMHR: 137 85%: 116.45 HR Isotope injected: 64 bpm ?Isotope: Tc 99m Tetrofosmin ?HR ?BP Baseline ??Infusion ?62 ??150/70 00:30 ? Infusion ?64 ? 01:00 ? Infusion ?72 ? 01:30 ? Infusion ?84 ??105/48 02:00 ? Infusion ?82 ? 03:00 ? Infusion ?82 ??101/51 05:00 ? Post Infusion ?? 80 ??121/60 Terminated: Completion of protocol Comments: Chest Pain: No chest pain with administration of Regadenoson Chest pain treatment: HR Response: Appropriate Blood Pressure Response: Appropriate ECG Abormalities During/After Stress: None ST Segment changes: None New Arrhythmias: None IMPRESSIONS: Negative ECG evidence of ischemia after IV ??Regadenoson. Confirmed on ??11/01/2019 - 12:51:42 by Yimi Limon MD ?? Zinc Etcher: Angeles Conklin MD By signing this report, the attending financial solutions advisor certifies that he or she has personally supervised and interpreted the stress test and has reviewed and or edited and agrees with the written comments contained within the report. Procedure Note Yimi Limon MD PhD - 11/01/2019 Patient name: Frandy Alvares Date of test: 11/01/2019 Type of Test: Pharmacologic Nuclear Stress [facility] #: [id number] Location: [facility] Referring Physician(s): JEROD GARCIA MD Supervised/Interpreted by: Angeles Conklin MD/Yimi Limon MD RN: Coby Dior RN Stress Agent: Regadenoson Reason for Test: Ventricular tachycardia (VT) Cardiac History: No Cardiac Disease, SVT Other History: Risk Factors: Past smoker PHYSICAL EXAM: Lungs: Clear Heart Sounds: Normal Carotid Pulse: Brisk Carotid Brut: None Medications: no cardiac meds Medications withheld: BASELINE Electrocardiogram: Heart rate: 62 BP: 150/70 Rhythm: Sinus Rhythm with 1st degree AVB Conduction Defects: Q Waves: Other: ST: HEMODYNAMIC PARAMETERS: Agent: Regadenoson 0.4mg over min Peak Heart Rate: 84 Peak BP: 150/70 PMHR: 137 85%: 116.45 HR Isotope injected: 64 bpm Isotope: Tc 99m Tetrofosmin HR BP Baseline Infusion 62 150/70 00:30 Infusion 64 01:00 Infusion 72 01:30 Infusion 84 105/48 02:00 Infusion 82 03:00 Infusion 82 101/51 05:00 Post Infusion 80 121/60 Terminated: Completion of protocol Comments: Chest Pain: No chest pain with administration of Regadenoson Chest pain treatment: HR Response: Appropriate Blood Pressure Response: Appropriate ECG Abormalities During/After Stress: None ST Segment changes: None New Arrhythmias: None IMPRESSIONS: Negative ECG evidence of ischemia after IV Regadenoson. Confirmed on 11/01/2019 - 12:51:42 by Yimi Limon MD Zinc Etcher: Angeles Conklin MD By signing this report, the attending financial solutions advisor certifies that he or she has personally supervised and interpreted the stress test and has reviewed and or edited and agrees with the written comments contained within the report. Jerod Garcia MD CV STRESS PROCEDURES Final Re sult documented in this encounter Visit Diagnoses Diagnosis Paroxysmal ventricular tachycardia (HCC) Paroxysmal ventricular tachycardia documented in this encounter Administered Medications Inactive Administered Medications - up to 3 most recent administrations Medication Order MAR Action Action Date Dose Rate Site regadenoson (LEXISCAN) 0.4 mg/5 mL injection 0.4 mg 0.4 mg, intravenous, Once, On Mon11/01/19 at 1100, For 1 dose, Intra-Procedure (CV), Administer IV push over 10 seconds., Indications: Myocardial Perfusion Imaging AdjunctIndications:Myocardial Perfusion Imaging Adjunct Given 11/01/2019 10:04 AM LIBRARY MONITOR 0.4 mg documented in this encounter Care Teams Fishing Instructor Relationship Specialty Start Date End Date Bao Pierre MD [address] [facility] [address] [place] [address] PCP - General 12/22/16 documented as of this encounter
--- OUTSIDE RECORDS SUMMARY | 2024-10-01 08:45 | XMS_ITS | Encounter Summary ---
Author Organization [facility] Healthcare Address [address] [place] [address] Care Team Providers Care Pricing Supervisor Name Role Phone Bao Pierre MD Primary Care Provider [phone] Encounter Details Date Type Department Care Team (Latest Contact Info) Description 12/03/2019 5:25 AM RAILROAD SIGNAL TECHNICIAN - 12/03/2019 3:12 PM RAILROAD SIGNAL TECHNICIAN Hospital Encounter [facility] [address] [place] [address] Irina James MD [address] [address] Status post insertion of drug eluting coronary artery stent (Primary Dx); Abnormal computed tomography angiography (CTA); VT (ventricular tachycardia) (CMS/HCC); Positive cardiac stress test Discharge Disposition: Discharge to home or self [...] on file Legal Sex Male 9:03 PM RAILROAD SIGNAL TECHNICIAN Gender Identity Not on file Sexual Orientation Straight 10/15/2019 10 :34 PM RAILROAD SIGNAL TECHNICIAN documented as of this encounter Last Filed Vital Signs Vital Sign Reading Time Taken Comments Blood Pressure 116/58 12/03/2019 1:10 PM RAILROAD SIGNAL TECHNICIAN Pulse 61 12/03/2019 1:10 PM RAILROAD SIGNAL TECHNICIAN Temperature 37 ??C (98.6 ??F) 12/03/2019 8:24 AM RAILROAD SIGNAL TECHNICIAN Respiratory Rate 29 12/03/2019 1:10 PM RAILROAD SIGNAL TECHNICIAN Oxygen Saturation 96% 12/03/2019 1:10 PM RAILROAD SIGNAL TECHNICIAN Inhaled Oxygen Concentration - - Weight 94 kg (207 lb 3.7 oz) 12/03/2019 8:24 AM RAILROAD SIGNAL TECHNICIAN Height 175.3 cm (5' 9 ) 12/03/2019 8:24 AM RAILROAD SIGNAL TECHNICIAN Body Mass Index 30.6 12/03/2019 8:24 AM RAILROAD SIGNAL TECHNICIAN documented in this encounter Discharge Diagnoses Diagnosis Atherosclerotic heart disease of [place] coronary artery without angina pectoris - ATHEROSCLEROTIC HEART DISEASE OF [place] CORONARY ARTERY WITHOUT ANGINA PECTORIS Coronary atherosclerosis due to calcified coronary lesion (CODE) - CORONARY ATHEROSCLEROSIS DUE TO CALCIFIED CORONARY LESION Other chest pain - OTHER CHEST PAIN Essential (primary) hypertension - ESSENTIAL (PRIMARY) HYPERTENSION Unspecified essential hypertension Hyperlipidemia, unspecified - HYPERLIPIDEMIA, UNSPECIFIED Ventricular tachycardia (HCC) - VENTRICULAR TACHYCARDIA Paroxysmal ventricular tachycardia Allergy status to other drugs, medicaments and biological substances status - ALLERGY STATUS TO OTHER DRUGS, MEDICAMENTS AND BIOLOGICAL SUBSTANCES STATUS Personal history of nicotine dependence - PERSONAL HISTORY OF NICOTINE DEPENDENCE Presence of unspecified artificial hip joint - PRESENCE OF UNSPECIFIED ARTIFICIAL HIP JOINT [facility] (current) use of antithrombotics/antiplatelets - SCHOOL LEADER (CURRENT) USE OF ANTITHROMBOTICS/ANTIPLATELETS rn long term care (current) use of aspirin - SCHOOL LEADER (CURRENT) USE OF ASPIRIN Other intermediate (current) drug therapy - OTHER SCHOOL LEADER (CURRENT) DRUG THERAPY documented in this encounter Discharge Instructions * Discharge Instructions* Jenae Banerjee RN - 12/03/2019 12:45 PM RAILROAD SIGNAL TECHNICIAN Discharge Instructions For Cardiac Catheterization (Femoral Approach) [...] M-F call our Outpatient Nurse Coordinators at [phone]. If you need to speak to someone after 5pm please call [facility] at [phone] and ask the kitchen operator topage the Cardiac Leadership Program Associate Fellow hydroelectric production technician. ROAD SIGNAL TECHNICIAN documented in this encounter Medications at Time [...] MG ORAL TABLET DELAYED RELEASE 09/13/2013 1 [id number]- [id number]-[id number] (Fiber 6) 1,000 mg tablet FIBER 09/13/2013 [...] if appropriate and no further issues arise. ROAD SIGNAL TECHNICIAN ROAD SIGNAL TECHNICIAN documented in this encounter Miscellaneous Notes * Perioperative Nursing Note - Jenae Banerjee RN - 12/03/2019 3:05 PM RAILROAD SIGNAL TECHNICIAN Follow up appointment schedules with Referring MD: Dr. Garcia Date: TBD, will be in approx 2 weeks. Office to notify patient of date/time. Stent implant card completed and given to patient. Post stent teaching completed. Given & reviewed written [facility] patient information guides: Post Intravascular Stent Placement ; Important Information About Your Stent Given and reviewed cardiac rehab information: [facility] brochure Cardiac Rehab . Patient and family express understanding of post stent teaching. New medication written for Clopidogrel 75 mg daily and Rosuvastatin 40 mg daily New medication teaching completed with patient and care givers, questions answered, patient and family verbalize understanding. New Medication prescription(s) filled by [facility]. Post Procedure H&H and Creatinine sent to lab. Reviewed by Lian MONTERROSO. Patient approved for discharge. Patient leaving [facility] via wheelchair accompanied by transport. Right groin site C/D/I. No bleeding. No hematoma. Pulses palpable. Patient ambulated to restroom and voided without complication. VSS. AVSreviewed and all questions answered. PIVs removed. Patient discharged with all belongings. ROAD SIGNAL TECHNICIAN * Pre-Sedation Documentation - Lian Nance NP [...] Irina James MD at 12/03/2019 8:18 AM RAILROAD SIGNAL TECHNICIAN ROAD SIGNAL TECHNICIAN ROAD SIGNAL TECHNICIAN * Pre-Cardiac Catheterization Workup and H&P - Lian Nance NP - 11/29/2019 11:11 AM CST PRE-CARDIAC CATHETERIZATION WORKUP Patient Name: Frandy Alvares Patient Patient : [id number] Date of Procedure: 12/03/2019 ORDERING METAL BUILDINGS ASSEMBLER: Surgeon(s): Irina James MD Procedure(s): LEFT HEART CATHETERIZATION WITH CORONARY ANGIOGRAPHY AND WITH OR WITHOUT LEFT VENTRICULOGRAM 23920 Requested Diagnostic: [] Coronary Angiograms Only [x] [...] mid left anterior descending coronary. Referred for C. artery. ALLERGIES: Epinephrine Topical Iodine Allergy: [x] [...] Yes [] No [] Contraindicated Indications for Leadership Program Associate visit (Select all that apply): [] ACS [...] ESRD [] Dialysis [] HD []PD: Prior VT: [] Yes [x] No If Yes, Most Recent VT Date: Tobacco Use Social History Tobacco Use [...] 2013 Report Available: [] Yes [] No C-no coronary disease Prior CABG: [] Yes [x] [...] Yes, Newly Diagnosed: [] Yes [] No NYHS Class: [] Class I [] Class II [...] stress test and coronary CTA, here for [facility] Clinical Frailty Scale: [] 1: Very Fit [...] and Assessment Completed by: Name: Lian Nance PAINT FACTORY WORKER-C Date: 12/03/2019 Time: 0800 Cosigned by Irina James MD at 12/03/2019 8:18 AM RAILROAD SIGNAL TECHNICIAN ROAD SIGNAL TECHNICIAN ROAD SIGNAL TECHNICIAN documented in this encounter Plan of Treatment Not on file documented as of this encounter Goals Goal Patient Goal Type Associated Problems Recent Progress Patient-Stated? Author CCM Chronic Pain Care Plan Chronic Care Management Worsening( 8:02 AM RAILROAD SIGNAL TECHNICIAN) No Chika Watters, RN Note: Problem: [...] DIFFERENTIAL AUTO Timed 12/03/2019 1:5 3 PM RAILROAD SIGNAL TECHNICIAN CBC WITH AUTO DIFFERENTIAL Timed 12/03/2019 1:53 PM RAILROAD SIGNAL TECHNICIAN BASIC METABOLIC PANEL Timed 12/03/2019 1:53 PM RAILROAD SIGNAL TECHNICIAN LEFT HEART CATHETERIZATION WITH CORONARY ANGIOGRAPHY AND WITH AND WITHOUT LEFT VENTRICULOGRAM Routine 12/03/2019 11:02 AM RAILROAD SIGNAL TECHNICIAN Abnormal computed tomography angiography (CTA) VT (ventricular tachycardia) ([facility]) POCT ACTIVATED CLOTTING TIME, LOW RANGE Routine 12/03/2019 11:01 AM RAILROAD SIGNAL TECHNICIAN POCT ACTIVATED CLOTTING TIME, LOW RANGE Routine 12/03/2019 10:32 AM RAILROAD SIGNAL TECHNICIAN CBC WITHOUT DIFFERENTIAL Routine 12/03/2019 10:20 AM RAILROAD SIGNAL TECHNICIAN CBC WITHOUT DIFFERENTIAL Routine 12/03/2019 8:20 AM RAILROAD SIGNAL TECHNICIAN documented in this encounter Results * Differential, auto (12/03/2019 1:53 PM RAILROAD SIGNAL TECHNICIAN) Neutrophil abs 4.8 1.7 - 6.5 K/cumm [facility] Imm gran abs 0.0 0.0 - 0.1 K/cumm [facility] Lymphocyte abs 1.6 0.8 - 3.3 K/cumm [facility] Monocyte abs 0.2 0.2 - 0.8 K/cumm [facility] Eosinophil abs 0.1 0.0 - 0.5 K/cumm [facility] Basophil abs 0.0 0.0 - 0.1 K/cumm [facility] Neutrophil pct 71.2 % [facility] Comment: Interpretive Data Percent cell count reference ranges are not reported, since discordance with absolute values may lead to misinterpretation of CBC data. Current Interpretive Data was last revised on 2018. Imm gran pct 0.3 % [facility] Comment: Interpretive Data Percent cell count reference ranges are not reported, since discordance with absolute values may lead to misinterpretation of CBC data. Current Interpretive Data was last revised on 2018. Lymphocyte pct 23.4 % [facility] Comment: Interpretive Data Percent cell count reference ranges are not reported, since discordance with absolute values may lead to misinterpretation of CBC data. Current Interpretive Data was last revised on 2018. Monocyte pct 3.7 % [facility] Comment: Interpretive Data Percent cell count reference ranges are not reported, since discordance with absolute values may lead to misinterpretation of CBC data. Current Interpretive Data was last revised on 2018. Eosinophil pct 1.0 % [facility] Comment: Interpretive Data Percent cell count reference ranges are not reported, since discordance with absolute values may lead to misinterpretation of CBC data. Current Interpretive Data was last revised on 2018. Basophil pct 0.4 % [facility] Comment: Interpretive Data Percent cell count reference ranges are not reported, since discordance with absolute values may lead to misinterpretation of CBC data. Current Interpretive Data was last revised on 2018. Blood specimen (specimen) 12/03/2019 1:53 PM RAILROAD SIGNAL TECHNICIAN 12/03/2019 2:01 PM RAILROAD SIGNAL TECHNICIAN us Lian Toro PAINT FACTORY WORKER LAB BLOOD ORDERABLES Final Re sult [facility] Department [place] [address] * (ABNORMAL) CBC with auto differential (12/03/2019 1:53 PM RAILROAD SIGNAL TECHNICIAN) WBC 6.7 3.8 - 9.9 K/cumm [facility] Hgb 12.5(L) 13.0 - 17.5 g/dL [facility] Hct 38.0(L) 38.9 - 50.3 % [facility] Plt 122(L) 150 - 400 K/cumm [facility] MPV 10.9 9.1 - 12.3 fL [facility] RBC 3.91(L) 4.30 - 5.80 M/cumm [facility] MCV 97.2(H) 81.3 - 96.4 fL [facility] MCH 32.0 27.1 - 33.3 pg [facility] MCHC 32.9 32.3 - 35.7 g/dL [facility] RDW CV 12.5 11.1 - 14.9 % [facility] RDW SD 45.0 35.7 - 48.1 fL [facility] NRBC abs 0.00 0.00 - 0.01 K/cumm [facility] Blood specimen (specimen) 12/03/2019 1:53 PM RAILROAD SIGNAL TECHNICIAN 12/03/2019 2:01 PM RAILROAD SIGNAL TECHNICIAN Narrative [facility] - 12/03/2019 2:15 PM RAILROAD SIGNAL TECHNICIAN 3 hours post hemostasis us Lian Toro PAINT FACTORY WORKER LAB BLOOD ORDERABLES Final Re sult [facility] Department [place] [address] * (ABNORMAL) Basic metabolic panel (12/03/2019 1:53 PM RAILROAD SIGNAL TECHNICIAN) Sodium 142 135 - 145 mmol/L [facility] Potassium, pl 4.0 3.3 - 4.9 mmol/L [facility] Chloride 105 97 - 110 mmol/L [facility] CO2 28 22 - 32 mmol/L [facility] Anion gap 9 2 - 15 mmol/L [facility] BUN 24 8 - 25 mg/dL [facility] Creatinine 1.05 0.80 - 1.30 mg/dL [facility] Glucose 149 70 - 199 mg/dL [facility] Comment: Interpretive Data Fasting glucose >/= 126 [...] 2017. Calcium 8.1(L) 8.5 - 10.3 mg/dL [facility] Blood specimen (specimen) 12/03/2019 1:53 PM RAILROAD SIGNAL TECHNICIAN 12/03/2019 2:01 PM RAILROAD SIGNAL TECHNICIAN Narrative [facility] - 12/03/2019 2:32 PM RAILROAD SIGNAL TECHNICIAN 3 hours post hemostasis us Lian Toro NP LAB BLOOD ORDERABLES Final Re sult [facility] [place] [address] * LEFT HEART CATHETERIZATION WITH CORONARY ANGIOGRAPHY AND WITH AND WITHOUT LEFT VENTRICULOGRAM (12/03/2019 11:02 AM RAILROAD SIGNAL TECHNICIAN) Anatomical Region Laterality Modality X-Ray Angiograph y Impressions 12/03/2019 5:24 PM RAILROAD SIGNAL TECHNICIAN 1. 60-70% lesion in the mid LAD [...] the above report. Narrative 12/03/2019 5:24 PM RAILROAD SIGNAL TECHNICIAN ?? Cardiovascular Procedure Center [facility] [employer] [facility] [address] [place] [address] CORONARY ANGIOGRAM AND PERCUTANEOUS CORONARY INTERVENTION REPORT Patient: Frandy Alvares : ?? 1935 MR number: [id number] Date of Service: 12/03/2019 Sales Account Specialist: ?? Irina James MD Fellow: ?Alexandre Griffith [...] obtained. The patient was brought to the lift slab operator and placed on the table. 2. Bilateral [...] EBU 4.0 guide catheter, 0.014 Verrata wire, Ute Eye IVUS Catheter, 2.5 x 38 mm Xience Henny drug-eluting stent, 4.0 x 8 mm Emerge balloon, 3.0 x 18 mm NC Sapphire balloon 8. ?? At the end of the procedure, the Right Femoral site was Angiosealed successfully. 9. ??Patient was transferred to [facility] in stable condition. RESULTS: Hemodynamics: 1. Systemic [...] and no dissection. ?? COMPLICATIONS: None DIAGNOSTIC Irina James MD CV CARDIAC CATH PROCEDURES Fi nal Result * (ABNORMAL) POCT Activated clotting time, low range (12/03/2019 11:01 AM RAILROAD SIGNAL TECHNICIAN) [facility] ACT 268(H) 123 - 168 sec [facility] Blood specimen (specimen) 12/03/2019 11:01 AM RAILROAD SIGNAL TECHNICIAN 12/03/2019 11:01 AM RAILROAD SIGNAL TECHNICIAN Result [facility] Irina James MD LAB POCT ORDERABLES - DEVICE Final Result Performing Organization Address [facility] Co de Phone Number [facility] Department [place] [address] * (ABNORMAL) POCT Activated clotting time, low range (12/03/2019 10:32 AM RAILROAD SIGNAL TECHNICIAN) [facility] ACT 303(H) 123 - 168 sec [facility] Blood specimen (specimen) 12/03/2019 10:32 AM RAILROAD SIGNAL TECHNICIAN 12/03/2019 10:32 AM RAILROAD SIGNAL TECHNICIAN Result [facility] Irina James MD LAB POCT ORDERABLES - DEVICE Final Result Performing Organization Address [facility] de Phone Number [facility] [place] [place] [address] * (ABNORMAL) CBC without differential (12/03/2019 10:20 AM RAILROAD SIGNAL TECHNICIAN) [facility] WBC 7.2 3.8 - 9.9 K/cumm [facility] Hgb 12.7(L) 13.0 - 17.5 g/dL [facility] Hct 36.8(L) 38.9 - 50.3 % [facility] Plt 120(L) 150 - 400 K/cumm [facility] MPV 11.3 9.1 - 12.3 fL [facility] RBC 3.87(L) 4.30 - 5.80 M/cumm [facility] MCV 95.1 81.3 - 96.4 fL [facility] MCH 32.8 27.1 - 33.3 pg [facility] MCHC 34.5 32.3 - 35.7 g/dL [facility] RDW CV 12.6 11.1 - 14.9 % [facility] RDW SD 43.3 35.7 - 48.1 fL [facility] NRBC abs 0.00 0.00 - 0.01 K/cumm [facility] Blood specimen (specimen) 12/03/2019 10:20 AM RAILROAD SIGNAL TECHNICIAN 12/03/2019 10:28 AM RAILROAD SIGNAL TECHNICIAN Narrative [facility] - 12/03/2019 10:42 AM RAILROAD SIGNAL TECHNICIAN To be drawn after hydration bolus complete us Lian Toro PAINT FACTORY WORKER LAB BLOOD ORDERABLES Final Re sult [facility] [place] [address] * (ABNORMAL) CBC without differential (12/03/2019 8:20 AM RAILROAD SIGNAL TECHNICIAN) [facility] WBC 7.3 3.8 - 9.9 K/cumm [facility] Hgb 13.7 13.0 - 17.5 g/dL [facility] Hct 40.4 38.9 - 50.3 % [facility] Plt 128(L) 150 - 400 K/cumm [facility] MPV 10.8 9.1 - 12.3 fL [facility] RBC 4.25(L) 4.30 - 5.80 M/cumm [facility] MCV 95.1 81.3 - 96.4 fL [facility] MCH 32.2 27.1 - 33.3 pg [facility] MCHC 33.9 32.3 - 35.7 g/dL [facility] RDW CV 12.7 11.1 - 14.9 % [facility] RDW SD 44.3 35.7 - 48.1 fL [facility] NRBC abs 0.00 0.00 - 0.01 K/cumm [facility] Blood specimen (specimen) 12/03/2019 8:20 AM RAILROAD SIGNAL TECHNICIAN 12/03/2019 8:25 AM RAILROAD SIGNAL TECHNICIAN us Lian Toro NP LAB BLOOD ORDERABLES Final Re sult [facility] Department [place] [address] documented in this encounter Visit Diagnoses Diagnosis [...] For 1 dose Given 12/03/2019 8:34 AM RAILROAD SIGNAL TECHNICIAN 81 mg clopidogreL (PLAVIX) tablet 600 mg 600 mg, oral, Once, On Mon12/03/19 at 1015, For 1 dose Given 12/03/2019 9:48 AM RAILROAD SIGNAL TECHNICIAN 600 mg sodium chloride 0.9% bolus 284 mL 284 mL (rounded from 284.4 mL = 3 mL/kg ? 94.8 kg), intravenous, Once, On Mon12/03/19 at 0900, For 1 dose, Pre-Procedure (CV), Immediately on arrival (at least 30 minutes prior to procedure) New Bag 12/03/2019 8:30 AM RAILROAD SIGNAL TECHNICIAN 284 mL sodium chloride 0.9% flush 0.5-20 mL 0.5-20 mL, intra-catheter, As needed, line care, Starting on Mon12/03/19 at 0829, Pre-Procedure (CV), Flush volume based on line type and size. Flush before and after each use. , Indications: FlushingIndications:Flushi ng sodium chloride 0.9% infusion 1 mL/kg/hr ? 94.8 kg (94.8 mL/hr), intravenous, Continuous, Starting on 12/03/19 at 0900, Pre-Procedure (CV) New Bag 12/03/2019 8:30 AM RAILROAD SIGNAL TECHNICIAN 1 mL/kg/hr 94.8 mL/hr sodium chloride 0.9% infusion 30 mL/hr, intravenous, Continuous, Starting on e 12/03/19 at 0915 New Bag 12/03/2019 8:33 AM RAILROAD SIGNAL TECHNICIAN 30 mL/hr 30 mL/hr documented in this encounter Discontinued Medications Medication Sig Discontinue Reason Start Date End Da te lovastatin (MEVACOR) 20 mg tabletIndications:hyper lipidemia Take 20 mg by mouth daily. Stop Taking at Discharge 02/15/2018 12/03/2019 documented as of this encounter Active and Recently Administered Medications Times are shown in RAILROAD SIGNAL TECHNICIAN. Scheduled Medication Order 12/01/2019 12/02/2019 12/03/2019 aspirin chewable tablet 81 mg (COMPLETED) 81 mg, oral, Once, On 12/03/19 at 0830, For 1 dose 0834 (Given - Provid er: Luan Lockhart RN) clopidogreL (PLAVIX) tablet 600 mg (COMPLETED) 600 mg, oral, Once, On Mon12/03/19 at 1015, For 1 dose 0948 (Given - Provid er: Jenae Banerjee RN) sodium chloride 0.9% bolus 284 mL (COMPLETED)(Linked Group 1) 284 mL (rounded from 284.4 mL = 3 mL/kg ? 94.8 kg), intravenous, Once, On e 12/03/19 at 0900, For 1 dose, Pre-Procedure (CV), Immediately on arrival (at least 30 minutes prior to procedure) 0830 (New Bag - Prov ider: Luan Lockhart RN) Continuous Medication Order 12/01/2019 12/02/2019 12/03/2019 sodium chloride 0.9% infusion(Linked Group 1) 1 mL/kg/hr ? 94.8 kg (94.8 mL/hr), intravenous, Continuous, Starting on 12/03/19 at 0900, Pre-Procedure (CV) 0830 (New Bag [...] unit/mL injection (CANCELED) As needed, Starting on Mon12/03/19 at 1029, Intra-Procedure (CV) 1029 (Given - Provid er: Alexandre Griffith MD) iodixanoL (VISIPAQUE) 320 mg iodine/mL injection (CANCELED) As needed, Starting on Mon12/03/19 at 1105, Intra-Procedure (CV) 1105 (Given - [...] mL vial (CANCELED) As needed, Starting on 3/3/20 at 1022, Intra-Procedure (CV) 1022 (Given - [...] and after each use. , Indications: Flushing 958 (NOV Hold - Pro vider: Automatic Transfer Provider - Reason: Patient not available)191 (NOV Unhold - Provider: Automatic Discharge Provider) [...] acetaminophen (TYLENOL) tablet 650 mg 1 12/2019 fentaNYL (SUBLIMAZE) preserv ative free injection 12/03/2019 heparin 1,000 unit/mL injection 1 0 iodixanoL (VISIPAQUE) 320 mg iodine/mL injection 1 12/03/2019 midazolam (VERSED) preservat scott free injection 1 12/03/2019 niCARdipine (CARDENE) 1 mg/1 0 mL in sodium chloride 0.9% (premix) 1 12/03/2019 nitroglycerin injection 100 mcg/mL D5W 10 mL vial 1 12/03/2019 sodium chloride 0.9% bolus 1 12/03/2019 sodium chloride 0.9% flush 0.5-20 mL 1 12/2019 sodium chloride 0.9% infusion 1 12/03/2019 CORE MEASURES Count Last Ordered Date First Ord ered Date REASON FOR NO VTE PROPHYLAXIS AT ADMISSION 1 12/03/2019 documented in this encounter Care Teams Pricing Supervisor Relationship Specialty Start Date End Date Bao Pierre MD [address] [address] PCP - General 12/22/16 documented as of this encounter
--- OUTSIDE RECORDS SUMMARY | 2024-10-01 08:45 | XMS_ITS | Encounter Summary ---
Author Organization [facility] Facility Care Team Providers Care Fryline Attendant Name Role Phone Bao Pierre MD Primary Care Provider [phone] Encounter Details Date Type Department Care Team (Latest Contact Info) Description 11/20/2019 Travel Social History Tobacco Use Types Packs/Day [...] on file Legal Sex Male 9:03 PM FILTER TANK TENDER Gender Identity Not on file Sexual Orientation Straight 10/15/2019 10 :34 PM FILTER TANK TENDER documented as of this encounter Plan of Treatment Not on file documented as of this encounter Goals Goal Patient Goal Type Associated Problems Recent Progress Patient-Stated? Author CCM Chronic Pain Care Plan Chronic Care Management Worsening( 8:02 AM FILTER TANK TENDER) No Chika Watters, RN Note: Problem: Chronic Pain Goals: 1. Minimize further functional decline 2. Maximize quality of life 3. Control pain Strategies: - Activity/exercise program recommendation - Conservative stepwise pain medicine strategy with multi-disciplinary approach - Recommend healthy lifestyle strategies and compensatory methods as needed documented as of this encounter Visit Diagnoses Not on filedocumented in this encounter Care Teams Fryline Attendant Relationship Specialty Start Date End Date Bao Pierre MD [address] [facility] [address] [place] [address] PCP - General 12/22/16 documented as of this encounter
--- OUTSIDE RECORDS SUMMARY | 2024-10-01 08:45 | XMS_ITS | Encounter Summary ---
Author Organization [facility] Healthcare Address [address] [place] [address] Care Team Providers Care Product Marketing Consultant Name Role Phone Bao Pierre MD Primary Care Provider [phone] Reason for Referral * Diagnostic Imaging (Routine) - Closed Specialty Diagnoses / Procedures Referred By Ileanaac t Referred To Contact Diagnoses Paroxysmal ventricular tachycardia (HCC) Procedures NM MPI SPECT (Rest and/or Stress) Multiple Studies Chris Garcia MD Phone: tel: fax: [address] [address] Referral ID Status Reason Start Date Expiration Date Visits Re quested Visits Authorized [id number] Closed 10/16/2019 04/26/2021 1 1 LLER OPERATOR Reason for Visit * Diagnostic Imaging (Routine) - Closed Specialty Diagnoses / Procedures Referred By Amber flores Referred To Contact Diagnoses Paroxysmal ventricular tachycardia (HCC) Procedures NM MPI SPECT (Rest and/or Stress) Multiple Studies Chris Garcia MD Phone: tel: fax: [address] [address] Referral ID Status Reason Start Date Expiration Date Visits Re quested Visits Authorized [id number] Closed 10/16/2019 04/26/2021 1 1 Encounter Details Date Type Department Care Team (Latest Contact Info) Description 11/01/2019 8:58 AM EXPELLER OPERATOR Hospital Encounter [facility] Radiology [address] [facility] [place] [address] Chris Garcia MD [address] [place] [address] Paroxysmal ventricular tachycardia (CMS/HCC) Discharge Disposition: Discharge [...] on file Legal Sex Male 9:03 PM EXPELLER OPERATOR Gender Identity Not on file Sexual Orientation Straight 10/15/2019 10 :34 PM EXPELLER OPERATOR documented as of this encounter Medications [...] MG ORAL TABLET DELAYED RELEASE 09/13/2013 1 tjoy-odb-bzc-dayana- pqvq-wzqg-aoj (Fiber 6) 1,000 mg tablet FIBER 09/13/2013 [...] Plan Chronic Care Management Worsening( 8:02 AM EXPELLER OPERATOR) No Chika Watters, RN Note: Problem: [...] Read Routine (OP Routine) 11/01/2019 12:44 PM EXPELLER OPERATOR Paroxysmal ventricular tachycardia (CMS/HCC) documented in this encounter Results * NM MPI SPECT (Rest and/or Stress) Multiple Studies (11/01/2019 12:44 PM EXPELLER OPERATOR) Anatomical Region Laterality Modality Body N/A Nuclear Medicine 11/01/2019 2:45 PM EXPELLER OPERATOR Impressions 11/01/2019 5:49 PM EXPELLER OPERATOR 1. ??Moderate sized area of mild ischemia in inferior wall. ?? 2. ??Normal left ventricular size and function. Dr. Ange Yu also participated in the interpretation of this examination. ?? Dictated by: Angeles Conklin M.D. The radiology attending physician has personally reviewed this study, and had reviewed and/or edited this written report and agrees with it. Electronically signed by: Eddi Ulrich M.D. Narrative 11/01/2019 5:49 PM EXPELLER OPERATOR EXAMINATION: MYOCARDIAL IMAGING (PHARMACOLOGIC-STRESS AND REST/SPECT/CT) DATE OF STUDY: 11/01/2019 RADIOPHARMACEUTICAL: 10.06 mCi, 33.52 mCi ??Tc-99m tetrofosmin i.v. HISTORY: 84-year-old man with paroxysmal supraventricular tachycardia. ??Cardiac risk factors include hyperlipidemia and smoking. Evaluate for ??ischemia and/or myocardial infarction. ??The patient's body mass index (BMI) was 30.3. ??The electrocardiogram during infusion of the pharmacologic agent was negative for ischemia. FINDINGS: Both stress and rest imaging were performed, in the following order: stress/rest Stress imaging: An intravenous infusion of Regadenoson (0.4 mg of A2A adenosine receptor agonist Regadenoson (Lexiscan), infused intravenously over approximately 10 seconds, followed approximately after another 20 seconds by tracer infusion) was performed without low level exercise on the date indicated above. ??A complete description of the stress test and electrocardiographic results supervised by staff of the Cardiovascular Division is available in the [facility] electronic medical record. Standard myocardial perfusion images were obtained after tracer injection at the peak effect of the drug. ??Low-dose CT images spanning the heart were obtained for attenuation correction. Rest Imaging: Standard myocardial perfusion images were obtained after resting tracer injection. ??Low-dose CT images spanning the heart were obtained for attenuation correction. COMPARISON: none The projection images were reviewed for image quality, and reveal extracardiac uptake due to bowel activity.. ?? Stress and rest images demonstrate a moderate-sized, mildly severe reversible perfusion defect in the inferior wall. Gated post-stress images demonstrate normal ventricular wall thickening. ??The left ventricular volume is normal and the left ventricular ejection fraction is 56% (normal >45%). ??Additional gated rest images demonstrate normal left ventricular wall thickening and a resting left ventricular ejection fraction of 55%. 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 ??Mild coronary artery calcifications. Bibasilar atelectasis. Multilevel degenerative changes of the spine. Procedure Note Eddi Ulrich MD - 11/01/2019 EXAMINATION: MYOCARDIAL IMAGING (PHARMACOLOGIC-STRESS AND REST/SPECT/CT) DATE OF STUDY: 11/01/2019 RADIOPHARMACEUTICAL: 10.06 mCi, 33.52 mCi Tc-99m tetrofosmin i.v. HISTORY: 84-year-old man with paroxysmal supraventricular tachycardia. Cardiac risk factors include hyperlipidemia and smoking. Evaluate for ischemia and/or myocardial infarction. The patient's body mass index (BMI) was 30.3. The electrocardiogram during infusion of the pharmacologic agent was negative for ischemia. FINDINGS: Both stress and rest imaging were performed, in the following order: stress/rest Stress imaging: An intravenous infusion of Regadenoson (0.4 mg of A2A adenosine receptor agonist Regadenoson (Lexiscan), infused intravenously over approximately 10 seconds, followed approximately after another 20 seconds by tracer infusion) was performed without low level exercise on the date indicated above. A complete description of the stress test and electrocardiographic results supervised by staff of the Cardiovascular Division is available in the [facility] electronic medical record. Standard myocardial perfusion images were obtained after tracer injection at the peak effect of the drug. Low-dose CT images spanning the heart were obtained for attenuation correction. Rest Imaging: Standard myocardial perfusion images were obtained after resting tracer injection. Low-dose CT images spanning the heart were obtained for attenuation correction. COMPARISON: none The projection images were reviewed for image quality, and reveal extracardiac uptake due to bowel activity.. Stress and rest images demonstrate a moderate-sized, mildly severe reversible perfusion defect in the inferior wall. Gated post-stress images demonstrate normal ventricular wall thickening. The left ventricular volume is normal and the left ventricular ejection fraction is 56% (normal >45%). Additional gated rest images demonstrate normal left ventricular wall thickening and a resting left ventricular ejection fraction of 55%. 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 Mild coronary artery calcifications. Bibasilar atelectasis. Multilevel degenerative changes of the spine. IMPRESSION: 1. Moderate sized area of mild ischemia in inferior wall. 2. Normal left ventricular size and function. Dr. Ange Yu also participated in the interpretation of this examination. Dictated by: Angeles Conklin M.D. The radiology attending physician has personally reviewed this study, and had reviewed and/or edited this written report and agrees with it. Electronically signed by: Eddi Ulrich M.D. Chris Garcia MD IM NM PROCEDURES Final Resul t documented in this encounter Visit Diagnoses Diagnosis Paroxysmal ventricular tachycardia (HCC) Paroxysmal ventricular tachycardia Paroxysmal ventricular tachycardia (HCC) Paroxysmal ventricular tachycardia documented in this encounter Administered Medications Inactive Administered Medications - up to 3 most recent administrations Medication Order MAR Action Action Date Dose Rate Site tc-99m tetrofosmin (MYOVIEW) injection 10 millicurie 10 millicurie, intravenous, Once in imaging, radiopharmaceutical, Starting on Mon11/01/19 at 0947, For 1 dose, Indications: Diagnostic RadiographyIndications:Amber gnostic Radiography Given 11/01/2019 10:05 AM EXPELLER OPERATOR 10.06 millicuries tc-99m tetrofosmin (MYOVIEW) injection 30 millicurie 30 millicurie, intravenous, Once in imaging, radiopharmaceutical, Starting on Mon11/01/19 at 1117, For 1 dose, Indications: Diagnostic RadiographyIndications:Amber gnostic Radiography Given 11/01/2019 11:33 AM EXPELLER OPERATOR 33.52 millicuries documented in this encounter Care Teams Product Marketing Consultant Relationship Specialty Start Date End Date Bao Pierre MD [address] [facility] [address] [place] [address] PCP - General 12/22/16 documented as of this encounter
--- OUTSIDE RECORDS SUMMARY | 2024-10-01 08:45 | XMS_ITS | Encounter Summary ---
Author Organization [facility] [employer] [facility] Address [address] [place] [address] Phone Care Team Providers Care Site Planner Name Role Phone Bao Pierre MD Primary Care Provider [phone] Encounter Details Date Type Department Care Team (Late st Contact Info) Description 11/22/2019 Telephone [facility] Cardiology [address] [facility] Advanced Medicine 8th [place] [address] [place] [address] Chris Garcia MD [address] [place] [address] Social History Tobacco Use Types Packs/Day Years Used Date Smoking Tobacco: Former Pipe 2015 Smokeless Tobacco: Never Comments:5-6 times a day Alcohol Use Standard Drinks/Week Comments No 0 (1 standard drink = 0.6 oz pur e alcohol) PHQ-2 Answer Date Recorded PHQ-2 Score 0 05/24/2019 Sex and Gender Information Value Date Recorded Sex Assigned at Not on file Legal Sex Male 9:03 PM STRAP MACHINE OPERATOR AUTOMATIC Gender Identity Not on file Sexual Orientation Straight 10/15/2019 10 :34 PM STRAP MACHINE OPERATOR AUTOMATIC documented as of this encounter Miscellaneous Notes * Telephone Encounter - Anita Arvizu, [facility] - 11/25/2019 1:07 PM CST Faxed lab orders to [facility] fax as below. P MACHINE OPERATOR AUTOMATIC * Telephone Encounter - Arianna Dominique - 11/25/2019 1:06 PM CST Thank you! P MACHINE OPERATOR AUTOMATIC * Telephone Encounter - Jennifer Villegas RN - 11/25/2019 12:33 PM CST Spoke with Shayy his director long term care Denies IV dye allergy contrast He will go to [facility] in [place] for his labs P MACHINE OPERATOR AUTOMATIC * Telephone Encounter - Arianna Dominique - 11/25/2019 10:[address] [facility] has 12/02 available. Please let me know if this will work. P MACHINE OPERATOR AUTOMATIC * Telephone Encounter - Jennifer Villegas RN - 11/22/2019 6:47 PM CST Spoke with pt's caregiver she is aware P MACHINE OPERATOR AUTOMATIC * Telephone Encounter - Chris Garcia MD - 11/22/2019 4:43 PM CST Cancel procedure Set up cath with Dr James P MACHINE OPERATOR AUTOMATIC * Telephone Encounter - Tonia Kwan - 11/22/2019 2:13 PM CST BRENNA AGUILLON, PT'S RN CORRECTIONAL, CALLING TO LET YOU KNOW PT HAD HIS CT DONE A COUPLE HOURS AGO. ONCE REVIEWED, PLS CALL HER TO DISCUSS IF PT CAN PROCEED WITH HIS SURGICAL PROCEDURE ON Monday. P MACHINE OPERATOR AUTOMATIC documented in this encounter Plan of Treatment Scheduled Orders Name Type Priority Associated Diagnoses Orde r Schedule Basic metabolic panel Lab Routine VT (ventricular tachycardia) (CMS/HCC) Coronary artery disease involving [place] coronary artery of [place] heart without angina pectoris Expected: 11/25/2019, Expires: 11/25/2020 CBC with auto differential Lab Routine VT (ventricular tachycardia) (CMS/HCC) Coronary artery disease involving [place] coronary artery of [place] heart without angina pectoris Expected: 11/25/2019, Expires: 11/25/2020 documented as of this encounter Goals Goal Patient Goal Type Associated Problems Recent Progress Patient-Stated? Author CCM Chronic Pain Care Plan Chronic Care Management Worsening( 8:02 AM STRAP MACHINE OPERATOR AUTOMATIC) Chika Tracy, RN Note: Problem: Chronic Pain Goals: 1. Minimize further functional decline 2. Maximize quality of life 3. Control pain Strategies: - Activity/exercise program recommendation - Conservative stepwise pain medicine strategy with multi-disciplinary approach - Recommend healthy lifestyle strategies and compensatory methods as needed documented as of this encounter Visit Diagnoses Diagnosis VT (ventricular tachycardia) (HCC)- Primary Paroxysmal ventricular tachycardia Coronary artery disease involving [place] coronary artery of [place] heart without angina pectoris documented in this encounter Care Teams Site Planner Relationship Specialty Start Date End Date Bao Pierre MD [address] [place] [address] PCP - General 12/22/16 documented as of this encounter
--- OUTSIDE RECORDS SUMMARY | 2024-10-01 08:45 | XMS_ITS | Encounter Summary ---
Author Organization [facility] [employer] [facility] Address [address] [place] [address] Phone Care Team Providers Care Wood Shingle Roofer Name Role Phone Bao Pierre MD Primary Care Provider [phone] Encounter Details Date Type Department Care Team (Latest Contact Info) Description 11/10/2019 Orders Only [facility] Chris Garcia MD [address] [place] [address] Social History Tobacco Use Types Packs/Day Years Used Date Smoking Tobacco: Former Pipe 2015 Smokeless Tobacco: Never Comments:5-6 times a day Alcohol Use Standard Drinks/Week Comments No 0 (1 standard drink = 0.6 oz pur e alcohol) PHQ-2 Answer Date Recorded PHQ-2 Score 0 05/24/2019 Sex and Gender Information Value Date Recorded Sex Assigned at Not on file Legal Sex Male 9:03 PM SPACE PHYSICIST Gender Identity Not on file Sexual Orientation Straight 10/15/2019 10 :34 PM SPACE PHYSICIST documented as of this encounter Plan of Treatment Not on file documented as of this encounter Goals Goal Patient Goal Type Associated Problems Recent Progress Patient-Stated? Author CCM Chronic Pain Care Plan Chronic Care Management Worsening( 8:02 AM SPACE PHYSICIST) No Chika Watters, RN Note: Problem: Chronic Pain Goals: 1. Minimize further functional decline 2. Maximize quality of life 3. Control pain Strategies: - Activity/exercise program recommendation - Conservative stepwise pain medicine strategy with multi-disciplinary approach - Recommend healthy lifestyle strategies and compensatory methods as needed documented as of this encounter Procedures Procedure Name Priority Date/Time Associated Diagnosis Comments CARDIOLOGY DOCUMENT SCAN 11/10/2019 3:52 PM SPACE PHYSICIST documented in this encounter Results * SCAN - CARDIOLOGY (11/10/2019 3:52 PM SPACE PHYSICIST) Anatomical Region Laterality Modality Other Chris Garcia MD CV CARDIAC SERVICES PROCEDURE S Final Result documented in this encounter Visit Diagnoses Not on filedocumented in this encounter Care Teams Wood Shingle Roofer Relationship Specialty Start Date End Date Bao Pierre MD [address] [address] PCP - General 12/22/16 documented as of this encounter
--- OUTSIDE RECORDS SUMMARY | 2024-10-01 08:45 | XMS_ITS | Encounter Summary ---
Author Organization [facility] [employer] [facility] Address [address] [place] [address] Phone Care Team Providers Care Yard Cleaner Name Role Phone Bao Pierre MD Primary Care Provider [phone] Encounter Details Date Type Department Care Team (Late st Contact Info) Description 11/22/2019 Telephone [facility] Cardiology [address] [facility] 8th [place] [address] [place] [address] Chris Garcia MD [address] [place] [address] Social History Tobacco Use Types Packs/Day Years Used Date Smoking Tobacco: Former Pipe 2015 Smokeless Tobacco: Never Comments:5-6 times a day Alcohol Use Standard Drinks/Week Comments No 0 (1 standard drink = 0.6 oz pur e alcohol) PHQ-2 Answer Date Recorded PHQ-2 Score 0 05/24/2019 Sex and Gender Information Value Date Recorded Sex Assigned at Not on file Legal Sex Male 9:03 PM SOFTWARE QUALITY ASSURANCE ENGINEER Gender Identity Not on file Sexual Orientation Straight 10/15/2019 10 :34 PM SOFTWARE QUALITY ASSURANCE ENGINEER documented as of this encounter Miscellaneous Notes * Telephone Encounter - Jennifer Villegas RN - 11/22/2019 6:46 PM CST Called Shayy back Cancel procedure Set up cath See other notes WARE QUALITY ASSURANCE ENGINEER * Telephone Encounter - Kristy White RN - 11/22/2019 4:42 PM CST Received afterhours call from Shayy Alva [phone] wondering if pt was cleared for procedureon Monday with Dr. Canales. Shayy states they called earlier today and were to get a call back from Dr. Shore's office. Informed I will send a message to Dr. Garcia's office and that she may stillhear back from Dr. Garcia's office even though the phones are off. WARE QUALITY ASSURANCE ENGINEER documented in this encounter Plan of Treatment Not on file documented as of this encounter Goals Goal Patient Goal Type Associated Problems Recent Progress Patient-Stated? Author CCM Chronic Pain Care Plan Chronic Care Management Worsening( 8:02 AM SOFTWARE QUALITY ASSURANCE ENGINEER) No Chika Watters RN Note: Problem: Chronic Pain Goals: 1. Minimize further functional decline 2. Maximize quality of life 3. Control pain Strategies: - Activity/exercise program recommendation - Conservative stepwise pain medicine strategy with multi-disciplinary approach - Recommend healthy lifestyle strategies and compensatory methods as needed documented as of this encounter Visit Diagnoses Not on filedocumented in this encounter Care Teams Yard Cleaner Relationship Specialty Start Date End Date Bao Pierre MD [address] [address] PCP - General 12/22/16 documented as of this encounter
--- OUTSIDE RECORDS SUMMARY | 2024-10-01 08:45 | XMS_ITS | Encounter Summary ---
Author Organization [facility] Healthcare Address [address] [place], [place] Care Team Providers Care Clinical Documentation Manager Name Role Phone Bao Pierre MD Primary Care Provider [phone] Reason for Referral * Diagnostic Imaging (Routine) - Closed Specialty Diagnoses / Procedures Referred By Ileanaac t Referred To Contact Radiology Diagnoses VT (ventricular tachycardia) (HCC) Coronary artery disease involving [place] coronary artery of [place] heart without angina pectoris Procedures CT Heart Morphology And Coronary Arteries W Contrast Chris Garcia MD Phone: tel: fax: [address] [address] Referral ID Status Reason Start Date Expiration Date Visits Re quested Visits Authorized [id number] Closed 11/20/2019 05/31/2021 1 1 MANAGER Reason for Visit * Diagnostic Imaging (Routine) - Closed Specialty Diagnoses / Procedures Referred By Contzahida flores Referred To Contact Radiology Diagnoses VT (ventricular tachycardia) (HCC) Coronary artery disease involving [place] coronary artery of [place] heart without angina pectoris Procedures CT Heart Morphology And Coronary Arteries W Contrast Chris Garcia MD Phone: tel: fax: [address] [address] Referral ID Status Reason Start Date Expiration Date Visits Re quested Visits Authorized [id number] Closed 11/20/2019 05/31/2021 1 1 Encounter Details Date Type Department Care Team (Latest Contact Info) Description 11/22/2019 10:14 AM OPS MANAGER - 11/22/2019 11:59 PM OPS MANAGER Hospital Encounter [facility] [address] [place] [address] Chris Garcia MD [address] [place] [address] [place] (ventricular tachycardia) ([facility]); Coronary artery disease involving [place]ipe[place] coronary artery of chipewwa heart without angina pectoris Discharge Disposition: Discharge to home or self [...] on file Legal Sex Male 9:03 PM OPS MANAGER Gender Identity Not on file Sexual Orientation Straight 10/15/2019 10 :34 PM OPS MANAGER documented as of this encounter Medications [...] MG ORAL TABLET DELAYED RELEASE 09/13/2013 1 tlta-awe-eav-dayana- djce-kgbh-aqu (Fiber 6) 1,000 mg tablet FIBER 09/13/2013 1 calcium phosphate-vitamin D3 250 mg calcium- 500 unit tablet,chewable Take by mouth 1 finasteride (PROSCAR) 5 mg tabletIndications :benign [...] mg by mouth daily. 12 02/15/2018 0 metoprolol XL (TOPROL-XL) 25 mg 24 hr [...] Type Associated Problems Recent Progress Patient-Stated? Author [facility] Chronic Pain Care Plan Chronic Care Management Worsening( 8:02 AM OPS MANAGER) Chika Tracy, RN Note: Problem: Chronic Pain Goals: 1. Minimize further functional decline 2. Maximize quality of life 3. Control pain Strategies: - Activity/exercise program recommendation - Conservative stepwise pain medicine strategy with multi-disciplinary approach - Recommend healthy lifestyle strategies and compensatory methods as needed documented as of this encounter Procedures Procedure Name Priority Date/Time Associated Diagnosis Comments CT HEART MORPHOLOGY AND CORONARY ARTERIES W CONTRAST Schedule FELICITY, Read FELICITY (Appt Today, Awaiting Results) 11/22/2019 11:54 AM OPS MANAGER VT (ventricular tachycardia) (CMS/HCC) Coronary artery disease involving [place] coronary artery of [place] heart without angina pectoris documented in this encounter Results * CT Heart Morphology And Coronary Arteries W Contrast (11/22/2019 11:54 AM OPS MANAGER) Anatomical Region Laterality Modality Chest N/A Computed Tomogra phy 11/22/2019 2:16 PM OPS MANAGER Impressions 11/22/2019 2:20 PM OPS MANAGER 1. ??Multifocal calcified atherosclerosis involving the left [...] Neal Griffiths M.D. Narrative 11/22/2019 2:20 PM OPS MANAGER EXAMINATION: CORONARY CT ANGIOGRAM HISTORY: Arrhythmia and [...] it. Electronically signed by: Neal Griffiths M.D. Chris Garcia MD IMG CT PROCEDURES Final Resul t documented in this encounter Visit Diagnoses Diagnosis VT (ventricular tachycardia) (HCC) Paroxysmal ventricular tachycardia Coronary artery disease involving [place] coronary artery of [place] heart without angina pectoris documented in this encounter Administered Medications Inactive Administered Medications - up to 3 most recent administrations Medication Order MAR Action Action Date Dose Rate Site ioversol (OPTIRAY 350) syringe syringe 100 mL 100 mL, intravenous, Once in imaging, contrast, Starting on Mon11/22/19 at 1156, For 1 dose Given 11/22/2019 11:56 AM OPS MANAGER 100 mL documented in this encounter Care Teams Clinical Documentation Manager Relationship Specialty Start Date End Date Bao Pierre MD [address] [address] PCP - General 12/22/16 documented as of this encounter
--- OUTSIDE RECORDS SUMMARY | 2024-10-01 08:45 | XMS_ITS | Encounter Summary ---
Author Organization [facility] Address [address] [place] [address] Phone Care Team Providers Care Horticulture Professor Name Role Phone Bao Pierre MD Primary Care Provider [phone] Encounter Details Date Type Department Care Team (Latest Contact Info) Description 10/28/2019 Orders Only [facility] Chris Garcia MD [address] [place] [address] Social History Tobacco Use Types Packs/Day Years Used Date Smoking Tobacco: Former Pipe 2015 Smokeless Tobacco: Never Comments:5-6 times a day Alcohol Use Standard Drinks/Week Comments No 0 (1 standard drink = 0.6 oz pur e alcohol) PHQ-2 Answer Date Recorded PHQ-2 Score 0 05/24/2019 Sex and Gender Information Value Date Recorded Sex Assigned at Not on file Legal Sex Male 9:03 PM ROOFER APPLICATOR Gender Identity Not on file Sexual Orientation Straight 10/15/2019 10 :34 PM ROOFER APPLICATOR documented as of this encounter Plan of Treatment Not on file documented as of this encounter Goals Goal Patient Goal Type Associated Problems Recent Progress Patient-Stated? Author CCM Chronic Pain Care Plan Chronic Care Management Worsening( 8:02 AM ROOFER APPLICATOR) No Chika Watters, RN Note: Problem: Chronic Pain Goals: 1. Minimize further functional decline 2. Maximize quality of life 3. Control pain Strategies: - Activity/exercise program recommendation - Conservative stepwise pain medicine strategy with multi-disciplinary approach - Recommend healthy lifestyle strategies and compensatory methods as needed documented as of this encounter Procedures Procedure Name Priority Date/Time Associated Diagnosis Comments CARDIOLOGY DOCUMENT SCAN 10/28/2019 3:36 AM ROOFER APPLICATOR documented in this encounter Results * SCAN - CARDIOLOGY (10/28/2019 3:36 AM ROOFER APPLICATOR) Anatomical Region Laterality Modality Other Chris Garcia MD CV CARDIAC SERVICES PROCEDURE S Final Result documented in this encounter Visit Diagnoses Not on filedocumented in this encounter Care Teams Horticulture Professor Relationship Specialty Start Date End Date Bao Pierre MD [address] [address] PCP - General 12/22/16 documented as of this encounter
--- OUTSIDE RECORDS SUMMARY | 2024-10-01 08:46 | XMS_ITS | Encounter Summary ---
Author Organization [facility] Address [address] [place] [address] Care Team Providers Care Dehydrator Name Role Phone Geoff Pierre MD Primary Care Provider [phone] Reason for Referral * Diagnostic Imaging (Routine) - Closed Specialty Diagnoses / Procedures Referred By Contac t Referred To Contact Diagnoses Other persistent atrial fibrillation (HCC) Procedures 48 HR Holter Monitor Geoff Pierre MD [address] [employer] [address] [address] Phone: tel: fax: [address] [address] Referral ID Status Reason Start Date Expiration Date Visits Re quested Visits Authorized [id number] Closed 08/09/2019 02/17/2021 1 1 RITY PROFESSIONAL Reason for Visit * Diagnostic Imaging (Routine) - Closed Specialty Diagnoses / Procedures Referred By Contac t Referred To Contact Diagnoses Other persistent atrial fibrillation (HCC) Procedures 48 HR Holter Monitor Geoff Pierre MD [address] [employer] [address] [address] Phone: tel: fax: [address] [address] Referral ID Status Reason Start Date Expiration Date Visits Re quested Visits Authorized [id number] Closed 08/09/2019 02/17/2021 1 1 Encounter Details Date Type Department Care Team (Latest Contact Info) Description 08/19/2019 10:30 AM SECURITY PROFESSIONAL - 08/19/2019 11:59 PM SECURITY PROFESSIONAL Hospital Encounter [facility] Cardiac Diagnostic Lab [address] [facility] [address] [place] [address] Geoff Pierre MD [address] [facility] [address] [place] [address] Other persistent atrial fibrillation Discharge Disposition: Discharge to home or self [...] on file Legal Sex Male 9:03 PM SECURITY PROFESSIONAL Gender Identity Not on file Sexual Orientation Straight 10/15/2019 10 :34 PM SECURITY PROFESSIONAL documented as of this encounter Medications at [...] MG ORAL TABLET DELAYED RELEASE 09/13/2013 1 soxt-ygv-wjn-dayana- womc-czsd-jnr (Fiber 6) 1,000 mg tablet FIBER 09/13/2013 [...] Plan Chronic Care Management Worsening( 8:02 AM SECURITY PROFESSIONAL) Chika Tracy, RN Note: Problem: Chronic Pain Goals: 1. Minimize further functional decline 2. Maximize quality of life 3. Control pain Strategies: - Activity/exercise program recommendation - Conservative stepwise pain medicine strategy with multi-disciplinary approach - Recommend healthy lifestyle strategies and compensatory methods as needed documented as of this encounter Procedures Procedure Name Priority Date/Time Associated Diagnosis Comments HOLTER MONITOR 48 HR Routine 08/19/2019 11:20 AM SECURITY PROFESSIONAL Other persistent atrial fibrillation documented in this encounter Results * 48 HR Holter Monitor (08/19/2019 11:20 AM SECURITY PROFESSIONAL) Anatomical Region Laterality Modality Electrocardiogra phy 08/19/2019 11:0 0 AM SECURITY PROFESSIONAL Narrative 08/23/2019 3:52 PM SECURITY PROFESSIONAL Patient name: Frandy Alvares Date of test: 08/19/2019 Type of Test: 48 Hr. Holter Monitoring [facility] #: [id number] ?Location: [facility] : 1935 ??Age: 84 ??Sex: M Ref Physician(s): GEOFF PIERRE MD Interpreted by: Nika Rubio MD Hook-Up Tech: Margret Ramirez Hook-up Tech: HL7 Transfer Scan Tech: Margret Ramirez Reason for Test: Atrial Fibrillation Monitor Connected: 08/19/2019 at 10:58 Monitor Serial#: [id number] Case#: [id number] Instructed in use of Diary by: Margret Ramirez FIGS comments: taya. will mail back Date Monitor Returned: 08/22/2019 Quality of Tracing: Good Monitoring Time: 44:06 Artifact Time: 03:54 Patient has Pacemaker?: No Conclusion: ??1st degree AVB observed throughout report Ectopic [place] Summary Supraventricular: ??3.49% of the total beats analyzed in the recording period Ventricular: 1.56% of the total beats analyzed in the recording period STATISTICS: Total QRS: 460974 Normal Beats: 867246 Spraventricular Beats: 5153 Min. HR: 36 ?? Max. HR: 98 ?? Mean HR: 54 Pauses: (>3000 ms) ?Longest RR: 2 Tachycardia (>120 bpm): Longest Tachy Beats: Fastest Tachy Beats: Bradycardia (<50 bpm): Longest Helder Beats: 45 Slowest Helder Beats: 45 Ventricular Ectopy: Vent. Beats: 2308 ??Singlets: 2290 ?Couplets: 9 ?Runs: Supra Vent. Ectopy: Supra Vent. Beats: 5153 ?Aberrant: ??Singlets: 5106 ?Pairs: 13 Vent. Tachy: Bigeminy Episodes/Beats: / ?Trigeminy Episodes/Beats: 10/12 Supra Vent. Tachy: Bigeminy Episodes/Beats: 486/3965 ?? Trigeminy Episodes/Beats: Atrial Paced Beats (%): Vent. Paced Beats (%): Dual Paced Beats (%): HEART RATE SUMMARY: The minimum heart rate was 36 BPM, occurring at 9:15:48 PM(2). The maximum rate was 98 BPM, occurring at 7:15:12 AM(2). The average heart rate was 54 BPM. The longest R-R interval was 2272 milliseconds at 9:15:47 PM(2), with 0 R-R intervals longer than 3000 milliseconds. ?? SUPRAVENTRICULAR SUMMARY: There were 693515 total beats analyzed. There were 5153 total supraventricular beats. The SVE/hour was 116. Supraventricular ectopic activity consisted of 5153 total beats, of these there were 5106 singles, 13 couplets, 6 runs of 3 beats or longer. The fastest supraventricular run had a rate of 118 BPM and occurred at 9:06:33 AM. The longest run was 4 beats long and occurred at 8:10:33 PM. ?? VENTRICULAR SUMMARY: There were 401468 total beats analyzed. There were 2308 total ventricular beats. The VE/hour was 52. Ventricular ectopic activity consisted of 2308 total beats, of these there were 2290 singles, 9 ventricular couplets, 0 runs of 3 beats or longer. INTERPRETATION: Average heart rate 54 bpm (36 bpm to 98 bpm), sinus rhythm Minimum heart rate occured 9:15:48 PM, sinus bradycardia at 36 bpm No R-R interval > 3 seconds Supraventricular ectopy (3.49%), longest run was 4 beats Ventricular ectopy (1.56%), no NSVT No atrial fibrillation detected No diary events entered This study was interpreted by Nika Rubio MD Confirmed on ??08/23/2019 - 15:52:28 by Nika Rubio MD I have personally reviewed and interpreted this study. Procedure Note Nika Rubio MD - 08/23/2019 Patient name: Frandy Alvares Date of test: 08/19/2019 Type of Test: 48 Hr. Holter Monitoring [facility] #: [id number] Location: [facility] : 1935 Age: 84 Sex: M Ref Physician(s): GEOFF PIERRE MD Interpreted by: Nika Rubio MD Hook-Up Tech: [employer] Tech: HL7 Transfer Scan Tech: [employer] Reason for Test: Atrial Fibrillation Monitor Connected: 08/19/2019 at 10:58 Monitor Serial#: [id number] Case#: [id number] Instructed in use of Diary by: [employer] comments: p. will mail back Date Monitor Returned: 08/22/2019 Quality of Tracing: Good Monitoring Time: 44:06 Artifact Time: 03:54 Patient has Pacemaker?: No Conclusion: 1st degree AVB observed throughout report Ectopic [place]wick Summary Supraventricular: 3.49% of the total beats analyzed in the recording period Ventricular: 1.56% of the total beats analyzed in the recording period STATISTICS: Total QRS: 148334 Normal Beats: 358357 Spraventricular Beats: 5153 Min. HR: 36 Max. HR: 98 Mean HR: 54 Pauses: (>3000 ms) Longest RR: 2 Tachycardia (>120 bpm): Longest Tachy Beats: Fastest Tachy Beats: Bradycardia (<50 bpm): Longest Helder Beats: 45 Slowest Helder Beats: 45 Ventricular Ectopy: Vent. Beats: 2308 Singlets: 2290 Couplets: 9 Runs: Supra Vent. Ectopy: Supra Vent. Beats: 5153 Aberrant: Singlets: 5106 Pairs: 13 Vent. Tachy: Bigeminy Episodes/Beats: / Trigeminy Episodes/Beats: 10/12 Supra Vent. Tachy: Bigeminy Episodes/Beats: 486/3965 Trigeminy Episodes/Beats: Atrial Paced Beats (%): Vent. Paced Beats (%): Dual Paced Beats (%): HEART RATE SUMMARY: The minimum heart rate was 36 BPM, occurring at 9:15:48 PM(2). The maximum rate was 98 BPM, occurring at 7:15:12 AM(2). The average heart rate was 54 BPM. The longest R-R interval was 2272 milliseconds at 9:15:47 PM(2), with 0 R-R intervals longer than 3000 milliseconds. SUPRAVENTRICULAR SUMMARY: There were 412805 total beats analyzed. There were 5153 total supraventricular beats. The SVE/hour was 116. Supraventricular ectopic activity consisted of 5153 total beats, of these there were 5106 singles, 13 couplets, 6 runs of 3 beats or longer. The fastest supraventricular run had a rate of 118 BPM and occurred at 9:06:33 AM. The longest run was 4 beats long and occurred at 8:10:33 PM. VENTRICULAR SUMMARY: There were 148779 total beats analyzed. There were 2308 total ventricular beats. The VE/hour was 52. Ventricular ectopic activity consisted of 2308 total beats, of these there were 2290 singles, 9 ventricular couplets, 0 runs of 3 beats or longer. INTERPRETATION: Average heart rate 54 bpm (36 bpm to 98 bpm), sinus rhythm Minimum heart rate occured 9:15:48 PM, sinus bradycardia at 36 bpm No R-R interval > 3 seconds Supraventricular ectopy (3.49%), longest run was 4 beats Ventricular ectopy (1.56%), no NSVT No atrial fibrillation detected No diary events entered This study was interpreted by Nika Rubio MD Confirmed on 08/23/2019 - 15:52:28 by Nika Rubio MD I have personally reviewed and interpreted this study. us Geoff Pierre MD CV CARDIAC SERVICES PROCEDURE S Final Result documented in this encounter Visit Diagnoses Diagnosis Other persistent atrial fibrillation (HCC) documented in this encounter Care Teams Dehydrator Relationship Specialty Start Date End Date Geoff Pierre MD [address] [place] [address] PCP - General 12/22/16 documented as of this encounter
--- OUTSIDE RECORDS SUMMARY | 2024-10-01 08:46 | XMS_ITS | Encounter Summary ---
Author Organization [facility] Address [address] [place] [address] Care Team Providers Care Ecosystem Ecology Professor Name Role Phone Bao Pierre MD Primary Care Provider Reason for Referral * (Routine) - Closed Specialty Diagnoses / Procedures Referred By Amber flores Referred To Contact Diagnoses Cardiac arrhythmia, unspecified cardiac arrhythmia type Procedures Transthoracic Echo Complete W Doppler/CF Jerod Garcia MD Phone: tel: fax: [facility] (All Locations) Referral ID Status Reason Start Date Expiration Date Visits Re quested Visits Authorized [id number] Closed 10/08/2019 04/18/[address]ARIAN Reason for Visit * (Routine) - Closed Specialty Diagnoses / Procedures Referred By Amber flores Referred To Contact Diagnoses Cardiac arrhythmia, unspecified cardiac arrhythmia type Procedures Transthoracic Echo Complete W Doppler/CF Jerod Garcia MD Phone: tel: fax: [facility] (All Locations) Referral ID Status Reason Start Date Expiration Date Visits Re quested Visits Authorized [id number] Closed 10/08/2019 04/18/2021 1 1 Encounter Details Date Type Department Care Team (Latest Contact Info) Description 10/09/2019 12:23 PM RECORD LIBRARIAN - 10/09/2019 11:59 PM RECORD LIBRARIAN Hospital Encounter [facility] Cardiac Diagnostic Lab [address] [place] [address] [facility] [place] [address] Jerod Garcia MD [address] [place] [address] Cardiac arrhythmia, unspecified cardiac arrhythmia type Discharge Disposition: Discharge to home or self [...] on file Legal Sex Male 9:03 PM RECORD LIBRARIAN Gender Identity Not on file Sexual Orientation Straight 10/15/2019 10 :34 PM RECORD LIBRARIAN documented as of this encounter Medications at [...] MG ORAL TABLET DELAYED RELEASE 09/13/2013 1 jxqk-fmy-olv-dayana- enfg-dqoo-ezo (Fiber 6) 1,000 mg tablet FIBER 09/13/2013 [...] Plan Chronic Care Management Worsening( 8:02 AM RECORD LIBRARIAN) Chika Tracy RN Note: Problem: Chronic Pain [...] (TTE) COMPLETE W DOPPLER/CF W CONTRAST Routine 10/09/2019 2:10 PM RECORD LIBRARIAN Cardiac arrhythmia, unspecified cardiac arrhythmia type documented in this encounter Results * TRANSTHORACIC ECHO (TTE) COMPLETE W DOPPLER/CF W CONTRAST (10/09/2019 2:10 PM RECORD LIBRARIAN) Anatomical Region Laterality Modality Ultrasound 10/09/2019 12:3 0 PM RECORD LIBRARIAN Narrative 10/09/2019 5:14 PM RECORD LIBRARIAN Patient name: Frandy Alvares Date of test: 10/09/2019 Type of test: TTE w/Doppler [facility] #: [id number] Date of : 1935 (M) System Trainer: Ai Spears RDCS Referring Physician: JEROD GARCIA MD Contrast Agent: 1.1 ml Optison Administered, (1.9 ml wasted). Contrast Administered by: Ilene Simpson RN Supervised/Interpreted by: Neal Kim MD Diagnosis: Location: [facility] Reason for test: cardiac arrhythmia MV Structure: Normal, ?MV Motion: Normal, ?? Mitral Annulus: Normal AV Structure: tricuspid and is Normal, ?? AV Motion: Normal Aotic root: Normal, ?TM: Normal, ?? PV: Normal Valvular Vegetations: none seen, ?Mass/Thrombi: none seen RA: Normal Measurements: ?M-Mode ?Normal ? Aotic Root: ? <3.8 ? LA: ? <4.0 ? RV: ? <2.8 ? LV(ED): ? <5.7 ? LV(ES): ? Variable ?2D Linear Normal ? Aotic Root: 3.8 cm ?<4.0 ? Ao Indexed: 1.8 cm/M2 <2.0 ? LA: ? <4.0 ? RV: ? 3.8 cm ?<4.2 ? LV(ED): ? 5.2 cm ?<5.9 ? LV(ES): ? 3.3 cm ?<4.0 ?2D Vol. ?? Normal ?Indexed ?? Indexed Normal RA: ? 23.0 ml ? 11.0 ml/M2 ?11-39 ? LA: ? 74.0 ml ? 35.4 ml/M2 ?16-34 ? RV: ? <12.7 ? LV(ED): ? 103.0 ml ??62-150 ?49.3 ml/M2 ?<75 ? LV(ES): ? 51.0 ml ?? 21-61 ? 24.4 ml/M2 ?<32 ?3D Vol. ? Indexed Normal LV(ED): ?<75 ? LV(ES): ?<32 ? LV EF: 50 % ?? (Normal: >=52%) ?? LV Septum: 1.2 cm ?(Normal: <1.0 cm) Wall Motion Scoring (1=Normal 2=Hypo 3=Akinetic 4=Dyskin./Aneurysm 0=Not visualized) Parasternal Long [place]:MAS=1 BAS=1 MP=1 BP=1 Parasternal Short [place]:MAS=1 MS=1 ME=1 MP=1 ML=1 MA=1 Apical 4 Chambers:=1 MS=1 BS=1 BL=1 ME=1 AL=1 Apical 2 Chambers:AI=1 ME=1 BI=1 BA=1 MA=1 AA=1 LV Global Longitudinal Strain: RV Global Longitudinal Strain: LV Function: Normal LV Ejection Fraction, (EF=52-72%) RV Function: Normal Septal Motion: Normal Pericardial Effusion: none seen Atrial Septum: Normal DOPPLER/COLOR FOLOW DOPPLER RESULTS: Diastolic Function: Impaired Relaxation Tricuspid Valve: normal TV Pulmonic Valve: normal PV AV Regurgitation: No AR seen AV Stenosis: no AV Area: ??cm2 AV Pressure Gradient (mmHg): Mean: 0, Peak:0 MV Regurgitation: No MR seen MV Stenosis: no MS MV Area: ??cm2 MV Pressure Gradient (mmHg): Mean: 0 MV ERO: ??cm Regurg. Vol.: ??ml/beat Regurg. Frac.: ??% PA Pressure: ??mmHg DOPPLER/COLOR FOLOW DOPPLER COMMENTS: No AR seen, No MR seen, no , no MS, normal TV, normal PV. Diastolic function: Normal PV AT 115 CONTRAST: 1.1 ml Optison Administered, (1.9 ml wasted). SUMMARY: Technically difficult study despite contrast.Patient in SR w frequent ectopy. ?? Normal LV and RV size and systolic function. Grade II diastolic dysfunction with increased LA pressure. ??No significant valvular abnormalities noted. LA is mildly dilated. Normal RV cavity size. LV cavity size is normal. Normal LV wall thickness/mass. Normal Inferior vena cava. Normal aorta.PASP not well estimated due to poor TR jet but PA pressures appear normal based on PV acceleration time. ??No previous echo for comparison. ?? Confirmed on ??10/09/2019 - 17:14:01 by Neal Kim MD By signing this report, the attending departmental shipping clerk certifies that he or she has personally supervised and interpreted the echocardiogram and has reviewed and or edited and agrees with the written comments contained within the report. Procedure Note Neal Kim MD - 10/09/2019 Patient name: Frandy Alvares Date of test: 10/09/2019 Type of test: TTE w/[facility] #: [id number] Date of : 1935 (M) System Trainer: Ai Spears RDCS Referring Physician: JEROD GARCIA MD Contrast Agent: 1.1 ml Optison Administered, (1.9 ml wasted). Contrast Administered by: Ilene Simpson RN Supervised/Interpreted by: Neal Kim MD Diagnosis: Location: [facility] Reason for test: cardiac arrhythmia MV Structure: Normal, MV Motion: Normal, Mitral Annulus: Normal AV Structure: tricuspid and is Normal, AV Motion: Normal Aotic root: Normal, TM: Normal, PV: Normal Valvular Vegetations: none seen, Mass/Thrombi: none seen RA: Normal Measurements: M-Mode Normal Aotic Root: <3.8 LA: <4.0 RV: <2.8 LV(ED): <5.7 LV(ES): Variable 2D Linear Normal Aotic Root: 3.8 cm <4.0 Ao Indexed: 1.8 cm/M2 <2.0 LA: <4.0 RV: 3.8 cm <4.2 LV(ED): 5.2 cm <5.9 LV(ES): 3.3 cm <4.0 2D Vol. Normal Indexed Indexed Normal RA: 23.0 ml 11.0 ml/M2 11-39 LA: 74.0 ml 35.4 ml/M2 16-34 RV: <12.7 LV(ED): 103.0 ml 62-150 49.3 ml/M2 <75 LV(ES): 51.0 ml 21-61 24.4 ml/M2 <32 3D Vol. Indexed Normal LV(ED): <75 LV(ES): <32 LV EF: 50 % (Normal: >=52%) LV Septum: 1.2 cm (Normal: <1.0 cm) Wall Motion Scoring (1=Normal 2=Hypo 3=Akinetic 4=Dyskin./Aneurysm 0=Not visualized) Parasternal [place]:MAS=1 BAS=1 MP=1 BP=1 Parasternal [place]:MAS=1 MS=1 ME=1 MP=1 ML=1 MA=1 Apical 4 Chambers:=1 MS=1 BS=1 BL=1 ME=1 AL=1 Apical 2 Chambers:AI=1 ME=1 BI=1 BA=1 MA=1 AA=1 LV Global Longitudinal Strain: RV Global Longitudinal Strain: LV Function: Normal LV Ejection Fraction, (EF=52-72%) RV Function: Normal Septal Motion: Normal Pericardial Effusion: none seen Atrial Septum: Normal DOPPLER/COLOR FOLOW DOPPLER RESULTS: Diastolic Function: Impaired Relaxation Tricuspid Valve: normal TV Pulmonic Valve: normal PV AV Regurgitation: No AR seen AV Stenosis: no AV Area: cm2 AV Pressure Gradient (mmHg): Mean: 0, Peak:0 MV Regurgitation: No MR seen MV Stenosis: no MS MV Area: cm2 MV Pressure Gradient (mmHg): Mean: 0 MV ERO: cm Regurg. Vol.: ml/beat Regurg. Frac.: % PA Pressure: mmHg DOPPLER/COLOR FOLOW DOPPLER COMMENTS: No AR seen, No MR seen, no , no MS, normal TV, normal PV. Diastolic function: Normal PV AT 115 CONTRAST: 1.1 ml Optison Administered, (1.9 ml wasted). SUMMARY: Technically difficult study despite contrast.Patient in SR w frequent ectopy. Normal LV and RV size and systolic function. Grade II diastolic dysfunction with increased LA pressure. No significant valvular abnormalities noted. LA is mildly dilated. Normal RV cavity size. LV cavity size is normal. Normal LV wall thickness/mass. Normal Inferior vena cava. Normal aorta.PASP not well estimated due to poor TR jet but PA pressures appear normal based on PV acceleration time. No previous echo for comparison. Confirmed on 10/09/2019 - 17:14:01 by Neal Kim MD By signing this report, the attending departmental shipping clerk certifies that he or she has personally supervised and interpreted the echocardiogram and has reviewed and or edited and agrees with the written comments contained within the report. Jerod Garcia MD CV ECHO PROCEDURES Final Resu lt documented in this encounter Visit Diagnoses Diagnosis Cardiac arrhythmia, unspecified cardiac arrhythmia type documented in this encounter Administered Medications Inactive Administered Medications - up to 3 most recent administrations Medication Order MAR Action Action Date Dose Rate Site perflutren protein-a (OPTISON) 3 mL in sodium chloride 0.9% 8 mL syringe 1-8 mL, intravenous, Once in imaging, contrast, Starting on Mon10/09/19 at 1314, For 1 dose, Intra-Procedure (CV) Given 10/09/2019 2:00 PM RECORD LIBRARIAN 3 mL documented in this encounter Care Teams Ecosystem Ecology Professor Relationship Specialty Start Date End Date Bao Pierre MD [address] [place] [address] PCP - General 12/22/16 documented as of this encounter
--- OUTSIDE RECORDS SUMMARY | 2024-10-01 08:46 | XMS_ITS | Encounter Summary ---
Author Organization [facility] of [facility] Address [address] [place] [address] Phone Care Team Providers Care Radio Maintainer Name Role Phone Bao Pierre MD Primary Care Provider [phone] Reason for Visit * (Routine) - Closed Specialty Diagnoses / Procedures Referred By Contac t Referred To Contact Diagnoses Cardiac arrhythmia, unspecified cardiac arrhythmia type Heart block, first degree Procedures 48 HR Holter Monitor Jerod Garcia MD Phone: tel: fax: [facility] (All Locations) Referral ID Status Reason Start Date Expiration Date Visits Re quested Visits Authorized [id number] Closed 10/08/2019 04/18/2021 1 1 Encounter Details Date Type Department Care Team (Latest Contact Info) Description 10/08/2019 12:00 PM PIE FILLER Ancillary Procedure [facility] Cardiology [address] [facility] 8th [place] [address] [place] [address] Cardiac arrhythmia, unspecified cardiac arrhythmia type; Heart block, first degree Social History Tobacco Use Types Packs/Day Years Used Date Smoking Tobacco: Former Pipe 2015 Smokeless Tobacco: Never Comments:5-6 times a day Alcohol Use Standard Drinks/Week Comments No 0 (1 standard drink = 0.6 oz pur e alcohol) PHQ-2 Answer Date Recorded PHQ-2 Score 0 05/24/2019 Sex and Gender Information Value Date Recorded Sex Assigned at Not on file Legal Sex Male 9:03 PM PIE FILLER Gender Identity Not on file Sexual Orientation Straight 10/15/2019 10 :34 PM PIE FILLER documented as of this encounter Plan of Treatment Not on file documented as of this encounter Goals Goal Patient Goal Type Associated Problems Recent Progress Patient-Stated? Author CCM Chronic Pain Care Plan Chronic Care Management Worsening( 8:02 AM PIE FILLER) Chika Tracy RN Note: Problem: Chronic Pain Goals: 1. Minimize further functional decline 2. Maximize quality of life 3. Control pain Strategies: - Activity/exercise program recommendation - Conservative stepwise pain medicine strategy with multi-disciplinary approach - Recommend healthy lifestyle strategies and compensatory methods as needed documented as of this encounter Procedures Procedure Name Priority Date/Time Associated Diagnosis Comments HOLTER MONITOR 48 HR Routine 10/08/2019 11:54 AM PIE FILLER Cardiac arrhythmia, unspecified cardiac arrhythmia type Heart block, first degree documented in this encounter Results * 48 HR Holter Monitor (10/08/2019 11:54 AM PIE FILLER) Anatomical Region Laterality Modality Electrocardiogra phy 10/08/2019 12:0 0 PM PIE FILLER Narrative 10/14/2019 10:14 AM PIE FILLER Patient name: Frandy Alvares Date of test: 10/08/2019 Type of Test: 48 Hr. Holter Monitoring [facility] #: [id number] ?Location: [facility] Heart and Vascular : 1935 ??Age: 84 ??Sex: M Ref Physician(s): JEROD GARCIA MD Interpreted by: Antonio Mai MD Hook-Up Tech: GINNY Gaston Hook-up Tech: HL7 Transfer Scan Tech: GINNY Gaston Reason for Test: Cardiac arrhythmia,unspecified Monitor Connected: 10/08/2019 at 11:48 Monitor Serial#: [id number] Case#: [id number] Instructed in use of Diary by: GINNY Gaston [employer]ine[employer] comments: The device was applied by the surface water technician on this note. The patient was instructed on how to use the device. The patient's questions were answered and arrangements were made for the disconnection and return of this device. Date Monitor Returned: 10/14/2019 Quality of Tracing: Good Monitoring Time: 44:28 Artifact Time: 03:27 Patient has Pacemaker?: No Conclusion: ??1st degree AVB and frequent supraventricular ectopy observed in the report ??Ectopic Harmony Summary Supraventricular: ??9.42% of the total beats analyzed in the recording period Ventricular: ??0.49% of the total beats analyzed in the recording period STATISTICS: Total QRS: 956853 Normal Beats: 154764 Spraventricular Beats: 30024 Min. HR: 38 ?? Max. HR: 115 ?? Mean HR: 55 Pauses: (>3000 ms) ?Longest RR: 2 Tachycardia (>120 bpm): Longest Tachy Beats: Fastest Tachy Beats: Bradycardia (<50 bpm): Longest Helder Beats: 47 Slowest Helder Beats: 45 Ventricular Ectopy: Vent. Beats: 690 ??Singlets: 683 ?Couplets: ? Runs: 1 Supra Vent. Ectopy: Supra Vent. Beats: 67612 ?Aberrant: ??Singlets: [id number] ?Pairs: 51 Vent. Tachy: Bigeminy Episodes/Beats: / ?Trigeminy Episodes/Beats: / Supra Vent. Tachy: Bigeminy Episodes/Beats: 1154/12721 ?? Trigeminy Episodes/Beats: 133/1676 Atrial Paced Beats (%): Vent. Paced Beats (%): Dual Paced Beats (%): HEART RATE SUMMARY: The minimum heart rate was 38 BPM, occurring at 5:32:45 AM. The maximum rate was 115 BPM, occurring at 7:27:55 AM(2). The average heart rate was 55 BPM. The longest R-R interval was 2224 milliseconds at 3:56:52 AM, with 0 R-R intervals longer than 3000 milliseconds. ?? SUPRAVENTRICULAR SUMMARY: There were 731875 total beats analyzed. There were 29359 total supraventricular beats. The SVE/hour was 300. Supraventricular ectopic activity consisted of 87304 total beats, of these there were 83957 singles, 51 couplets, 17 runs of 3 beats or longer. The fastest supraventricular run had a rate of 130 BPM and occurred at 11:28:48 AM. The longest run was 9 beats long and occurred at 7:27:54 AM(2). ?? VENTRICULAR SUMMARY: There were 346784 total beats analyzed. There were 690 total ventricular beats. The VE/hour was 15. Ventricular ectopic activity consisted of 690 total beats, of these there were 683 singles, 0 ventricular couplets, 1 runs of 3 beats or longer. The fastest ventricular run had a rate of 82 BPM and occurred at 3:56:46 AM. The slowest ventricular run had a rate of 82 BPM and occurred at 3:56:46 AM. ??The longest run was 7 beats long and occurred at 3:56:46 AM. INTERPRETATION: NSR colt w summary on p3 and its examples on p14 This study was interpreted by Antonio Mai MD Confirmed on ??10/14/2019 - 10:14:44 by Antonio Mai MD I have personally reviewed and interpreted this study. Procedure Note Antonio Mai Jr., MD PhD - 10/14/2019 Patient name: Frandy Alvares Date of test: 10/08/2019 Type of Test: 48 Hr. Holter Monitoring [facility] #: [id number] Location: [facility] Heart and Vascular : 1935 Age: 84 Sex: M Ref Physician(s): JEROD GARCIA MD Interpreted by: Antonio Mai MD Hook-Up Tech: GINNY Gaston Hook-up Tech: HL7 Transfer Scan Tech: GNINY Gaston Reason for Test: Cardiac arrhythmia,unspecified Monitor Connected: 10/08/2019 at 11:48 Monitor Serial#: [id number] Case#: [id number] Instructed in use of Diary by: GINNY Gaston Hook-Up Tech comments: The device was applied by the surface water technician on this note. The patient was instructed on how to use the device. The patient's questions were answered and arrangements were made for the disconnection and return of this device. Date Monitor Returned: 10/14/2019 Quality of Tracing: Good Monitoring Time: 44:28 Artifact Time: 03:27 Patient has Pacemaker?: No Conclusion: 1st degree AVB and frequent supraventricular ectopy observed in the report Ectopic Harmony Summary Supraventricular: 9.42% of the total beats analyzed in the recording period Ventricular: 0.49% of the total beats analyzed in the recording period STATISTICS: Total QRS: 795101 Normal Beats: 692520 Spraventricular Beats: 07570 Min. HR: 38 Max. HR: 115 Mean HR: 55 Pauses: (>3000 ms) Longest RR: 2 Tachycardia (>120 bpm): Longest Tachy Beats: Fastest Tachy Beats: Bradycardia (<50 bpm): Longest Helder Beats: 47 Slowest Helder Beats: 45 Ventricular Ectopy: Vent. Beats: 690 Singlets: 683 Couplets: Runs: 1 Supra Vent. Ectopy: Supra Vent. Beats: 18077 Aberrant: Singlets: 43677 Pairs: 51 Vent. Tachy: Bigeminy Episodes/Beats: / Trigeminy Episodes/Beats: / Supra Vent. Tachy: Bigeminy Episodes/Beats: 1154/73646 Trigeminy Episodes/Beats: 133/1676 Atrial Paced Beats (%): Vent. Paced Beats (%): Dual Paced Beats (%): HEART RATE SUMMARY: The minimum heart rate was 38 BPM, occurring at 5:32:45 AM. The maximum rate was 115 BPM, occurring at 7:27:55 AM(2). The average heart rate was 55 BPM. The longest R-R interval was 2224 milliseconds at 3:56:52 AM, with 0 R-R intervals longer than 3000 milliseconds. SUPRAVENTRICULAR SUMMARY: There were 098582 total beats analyzed. There were 03348 total supraventricular beats. The SVE/hour was 300. Supraventricular ectopic activity consisted of 57573 total beats, of these there were 45191 singles, 51 couplets, 17 runs of 3 beats or longer. The fastest supraventricular run had a rate of 130 BPM and occurred at 11:28:48 AM. The longest run was 9 beats long and occurred at 7:27:54 AM(2). VENTRICULAR SUMMARY: There were 348396 total beats analyzed. There were 690 total ventricular beats. The VE/hour was 15. Ventricular ectopic activity consisted of 690 total beats, of these there were 683 singles, 0 ventricular couplets, 1 runs of 3 beats or longer. The fastest ventricular run had a rate of 82 BPM and occurred at 3:56:46 AM. The slowest ventricular run had a rate of 82 BPM and occurred at 3:56:46 AM. The longest run was 7 beats long and occurred at 3:56:46 AM. INTERPRETATION: NSR agree w summary on p3 and its examples on p14 This study was interpreted by Antonio Mai MD Confirmed on 10/14/2019 - 10:14:44 by Antonio Mai MD I have personally reviewed and interpreted this study. Jerod Garcia MD [facility] PROCEDURE S Final Result documented in this encounter Visit Diagnoses Diagnosis Cardiac arrhythmia, unspecified cardiac arrhythmia type Heart block, first degree documented in this encounter Care Teams Radio Maintainer Relationship Specialty Start Date End Date Bao Pierre MD [address] [place] [address] PCP - General 12/22/16 documented as of this encounter
--- OUTSIDE RECORDS SUMMARY | 2024-10-01 08:46 | XMS_ITS | Encounter Summary ---
Author Organization [facility] of [facility] Address [address] [place] [address] Phone Care Team Providers Care House Calls Nurse Name Role Phone Bao Pierre MD Primary Care Provider [phone] Encounter Details Date Type Department Care Team (Late st Contact Info) Description 10/11/2019 Telephone [facility] Cardiology [address] [facility] [address] 8th [place] [address] [place] [address] Chris Garcia MD [address] [place] [address] Social History Tobacco Use Types Packs/Day Years [...] file Legal Sex Male 9:03 PM MANUFACTURING LABORER Gender Identity Not on file Sexual Orientation Straight 10/15/2019 10 :34 PM MANUFACTURING LABORER documented as of this encounter Miscellaneous Notes * Telephone Encounter - Anita Arvizu, [facility] - 10/15/2019 10:38 AM CST Faxed clearance note to Dr. Swam. FACTURING LABORER * Telephone Encounter - Jennifer Villegas RN - 10/15/2019 10:07 AM CST Spoke with Shayy let her know SN reviewed echo and holter and he cleared pt for procedure. They rescheduled him until Nov 25 but asked we fax the clearance to Dr Shafer FACTURING LABORER * Telephone Encounter - Delaney Bowman - 10/15/2019 9:40 AM CST Jose Pt's EC calling saying they never received a call back about this and pt's procedure was to be donetomorrow. Since they never heard back, they cancelled the procedure and rs/d to 11/25/2019. Req CB to discuss lab results and echo results. Pls call. FACTURING LABORER * Telephone Encounter - Chris Garcia MD - 10/14/2019 4:47 PM CST Stable for procedure FACTURING LABORER * Telephone Encounter - Carlos A Reynolds - 10/14/2019 10:30 AM CST Calling again to discuss pt echo results. Would like a call back today FACTURING LABORER * Telephone Encounter - Chris Garcia MD - 10/11/2019 3:32 PM CST Pending 48 hr holter results FACTURING LABORER * Telephone Encounter - Kunal Sarah - 10/11/2019 12:58 PM CST Jose Patient EC is calling inquiring if the patients Echo was okay and if he is cleared to go to his procedure on 10/16/2019 Fernando Shafer FACTURING LABORER documented in this encounter Plan of Treatment Not on file documented as of this encounter Goals Goal Patient Goal Type Associated Problems Recent Progress Patient-Stated? Author CCM Chronic Pain Care Plan Chronic Care Management Worsening( 8:02 AM MANUFACTURING LABORER) No Chika Watters, RN Note: Problem: Chronic Pain Goals: 1. Minimize further functional decline 2. Maximize quality of life 3. Control pain Strategies: - Activity/exercise program recommendation - Conservative stepwise pain medicine strategy with multi-disciplinary approach - Recommend healthy lifestyle strategies and compensatory methods as needed documented as of this encounter Visit Diagnoses Not on filedocumented in this encounter Care Teams House Calls Nurse Relationship Specialty Start Date End Date Bao Pierre MD [address] [address] PCP - General 12/22/16 documented as of this encounter
--- OUTSIDE RECORDS SUMMARY | 2024-10-01 08:46 | XMS_ITS | Encounter Summary ---
Author Organization [facility] [employer] of [facility] Address [address] [place] [address] Phone Care Team Providers Care Manufacturing Clerk Name Role Phone Bao Pierre MD Primary Care Provider [phone] Encounter Details Date Type Department Care Team (Late st Contact Info) Description 10/16/[address] [facility] Cardiology [address] [facility] [address] [place] [address] Zenaida Delacruz RN Social History [...] on file Legal Sex Male 9:03 PM PAVER LAYER Gender Identity Not on file Sexual Orientation Straight 10/15/2019 10 :34 PM PAVER LAYER documented as of this encounter Miscellaneous Notes * Telephone Encounter - Jayde Thomas - 10/21/2019 11:32 AM CST Shayy / caregiver will call us to schedule R LAYER * Telephone Encounter - Jayde Thomas - 10/21/2019 10:39 AM CST Call pt back today at 11:15 R LAYER * Telephone Encounter - Zenobia Doll - 10/17/2019 8:07 AM CST Left message for patient to call us back to schedule R LAYER * Telephone Encounter - Zenaida Delacruz RN - 10/16/2019 4:50 PM CST Placed order. Director Card see details below. R LAYER * Telephone Encounter - Zenaida Delacruz RN - 10/16/2019 3:53 PM CST Reviewed w/ [facility] rec: Regodinosine thallium. Expalained to cared media assistant Shayy Alva [phone] She can do AM next week M, Mon but not Th or Fri, NOT this Mon And can do anytime in AM in the next week R LAYER * Telephone Encounter - Zenaida Delacruz RN - 10/16/2019 2:48 PM CST Called to ck on pt. Said he was probably asleep. This was around midnight. No compaints. R LAYER * Telephone Encounter - Zenaida Delacruz RN - 10/16/2019 2:41 PM CST Noted SB first degree Av block w/ five beat v tach on event monitor. Pain injection block rescheduled for 11/25/19. No R LAYER documented in this encounter Plan of Treatment Not on file documented as of this encounter Goals Goal Patient Goal Type Associated Problems Recent Progress Patient-Stated? Author CCM Chronic Pain Care Plan Chronic Care Management Worsening( 8:02 AM PAVER LAYER) Chika Tracy, RN Note: Problem: Chronic Pain Goals: 1. Minimize further functional decline 2. Maximize quality of life 3. Control pain Strategies: - Activity/exercise program recommendation - Conservative stepwise pain medicine strategy with multi-disciplinary approach - Recommend healthy lifestyle strategies and compensatory methods as needed documented as of this encounter Visit Diagnoses Not on filedocumented in this encounter Care Teams Manufacturing Clerk Relationship Specialty Start Date End Date Bao Pierre MD [address] [address] PCP - General 12/22/16 documented as of this encounter
--- OUTSIDE RECORDS SUMMARY | 2024-10-01 08:46 | XMS_ITS | Encounter Summary ---
Author Organization [facility] [employer] of [facility] Address [address] [place] [address] Phone Care Team Providers Care Manager Managing Name Role Phone Bao Pierre MD Primary Care Provider [phone] Reason for Referral * Diagnostic Imaging (Routine) - Closed Specialty Diagnoses / Procedures Referred By Contac t Referred To Contact Diagnoses Paroxysmal ventricular tachycardia (HCC) Procedures NM MPI SPECT (Rest and/or Stress) Multiple Studies Chris Garcia MD Phone: tel: fax: [address] [address] Referral ID Status Reason Start Date Expiration Date Visits Re quested Visits Authorized [id number] Closed 10/16/2019 04/26/2021 1 1 TEST ENGINEER Encounter Details Date Type Department Care Team (Late st Contact Info) Description 10/16/2019 Orders Only [facility] Cardiology [address] [facility] [address] [place] [address] Zenaida Delacruz RN Paroxysmal ventricular tachycardia (CMS/HCC) (Primary Dx) Social History Tobacco Use Types Packs/Day Years Used Date Smoking Tobacco: Former Pipe 1 966 - 2015 Smokeless Tobacco: Never Comments:5-6 times a day Alcohol Use Standard Drinks/Week Comments No 0 (1 standard drink = 0.6 oz pur e alcohol) PHQ-2 Answer Date Recorded PHQ-2 Score 0 05/24/2019 Sex and Gender Information Value Date Recorded Sex Assigned at Not on file Legal Sex Male 9:03 PM RF TEST ENGINEER Gender Identity Not on file Sexual Orientation Straight 10/15/2019 10 :34 PM RF TEST ENGINEER documented as of this encounter Plan of Treatment Not on file documented as of this encounter Goals Goal Patient Goal Type Associated Problems Recent Progress Patient-Stated? Author CCM Chronic Pain Care Plan Chronic Care Management Worsening( 8:02 AM RF TEST ENGINEER) No Chika Watters, RN Note: Problem: Chronic Pain Goals: 1. Minimize further functional decline 2. Maximize quality of life 3. Control pain Strategies: - Activity/exercise program recommendation - Conservative stepwise pain medicine strategy with multi-disciplinary approach - Recommend healthy lifestyle strategies and compensatory methods as needed documented as of this encounter Results * NM MPI SPECT (Rest and/or Stress) Multiple Studies (11/01/2019 12:44 PM RF TEST ENGINEER) Anatomical Region Laterality Modality Body N/A Nuclear Medicine 11/01/2019 2:45 PM RF TEST ENGINEER Impressions 11/01/2019 5:49 PM RF TEST ENGINEER 1. ??Moderate sized area of mild ischemia [...] Eddi Ulrich M.D. Narrative 11/01/2019 5:49 PM RF TEST ENGINEER EXAMINATION: MYOCARDIAL IMAGING (PHARMACOLOGIC-STRESS AND REST/SPECT/CT) DATE [...] the Cardiovascular Division is available in the [facility] electronic medical record. Standard myocardial perfusion images [...] the Cardiovascular Division is available in the [facility] electronic medical record. Standard myocardial perfusion images [...] by: Eddi Ulrich M.D. Chris Garcia MD [facility] Final Resul t documented in this encounter Visit Diagnoses Diagnosis Paroxysmal ventricular tachycardia (HCC)- Primary Paroxysmal ventricular tachycardia Paroxysmal ventricular tachycardia (HCC) Paroxysmal ventricular tachycardia Paroxysmal ventricular tachycardia (HCC) Paroxysmal ventricular tachycardia documented in this encounter Care Teams Manager Managing Relationship Specialty Start Date End Date Bao Pierre MD [address] [facility] [address] [place] [address] PCP - General 12/22/16 documented as of this encounter
--- OUTSIDE RECORDS SUMMARY | 2024-10-01 08:46 | XMS_ITS | Encounter Summary ---
Author Organization [facility] [place] Address [address] [place] [address] Phone Care Team Providers Care Jet Worker Name Role Phone Bao Pierre MD Primary Care Provider [phone] Reason for Referral * (Routine) - Closed Specialty Diagnoses / Procedures Referred By Contac t Referred To Contact Diagnoses Heart block, first degree Procedures MCT Mobile Cardiac Telemetry Event Monitor Jerod Garcia MD Phone: tel: fax: [facility] Referral ID Status Reason Start Date Expiration Date Visits Re quested Visits Authorized [id number] Closed 10/09/2019 04/19/2021 1 1 ING MACHINE OPERATOR Encounter Details Date Type Department Care Team (Late st Contact Info) Description 10/09/2019 Orders Only [facility] Cardiology [address] [place] [address] Jerod Garcia MD [address] [place] [address] Heart block, first degree (Primary Dx) Social History Tobacco Use Types [...] on file Legal Sex Male 9:03 PM BENDING MACHINE OPERATOR Gender Identity Not on file Sexual Orientation Straight 10/15/2019 10 :34 PM BENDING MACHINE OPERATOR documented as of this encounter Plan of Treatment Not on file documented as of this encounter Goals Goal Patient Goal Type Associated Problems Recent Progress Patient-Stated? Author CCM Chronic Pain Care Plan Chronic Care Management Worsening( 8:02 AM BENDING MACHINE OPERATOR) No Chika Watters, RN Note: Problem: Chronic Pain Goals: 1. Minimize further functional decline 2. Maximize quality of life 3. Control pain Strategies: - Activity/exercise program recommendation - Conservative stepwise pain medicine strategy with multi-disciplinary approach - Recommend healthy lifestyle strategies and compensatory methods as needed documented as of this encounter Results * [facility] Mobile Cardiac Telemetry Event Monitor (10/09/2019 9:48 AM BENDING MACHINE OPERATOR) Anatomical Region Laterality Modality Electrocardiogra phy 10/09/2019 10:3 0 AM BENDING MACHINE OPERATOR Narrative 11/18/2019 12:53 PM BENDING MACHINE OPERATOR Patient name: Frandy Alvares Date of test: 10/09/2019 Type of Test: Event Monitor ([facility]) Hospital #: [id number] ?Location: [facility] : 1935 ??Age: 84 ??Sex: M Ref Physician(s): JEROD GARCIA MD Interpreted by: Jeannine Lezama MD Interface Security Systems: Preventice Monitoring Service Diagnosis: Monitoring Service: Preventice Reason for Test: I44.0: Atrioventricular block, first degree Monitor Used: [facility] ([facility]) ?? Enrollment Period: Oct 15 - Nov 13, 2019 Interface Security Systems comments: Number of Transmissions Sent During Enrollment Period: 8 To obtain transmission tracing contact: [facility] ??[phone] Rhythm Summary: Afib longest duration: 00:00:58 Date Time of Afib longest episode: 10/22/2019 14:55:00 Afib shortest duration: 00:00:58 Date Time of Afib shortest episode: 10/22/2019 14:55:00 Peak avg Afib rate: 66 Bradycardia avg rate: 48 Bradycardia longest duration: 03:59:44 Bradycardia longest episode: 11/07/2019 00:50:00 Bradycardia shortest duration: 00:00:06 Bradycardia shortest episode: 10/17/2019 21:30:00 Mean heart rate: 53 Pauses >= 3 seconds: 0 Tachycardia avg rate: 106 Tachycardia longest duration: 00:04:09 Tachycardia longest episode: 10/18/2019 07:19:00 Tachycardia shortest duration: 00:00:14 Tachycardia shortest episode: 10/22/2019 18:45:00 Cardiologis Review of Transmissions: Baseline rhythm is NSR. 5 beat run of VT noted at a heart rate of 160bpm. HR range otherwise is 37-123bpm. Aflutter with variable AV block seen. Sinus bradycardia noted. First degree AV block seen. No symptoms reported. This study was interpreted by Jeannine Lezama MD Confirmed on ??11/18/2019 - 12:53:06 by Jeannine Lezama MD Summary of Transmitted Events: # ??Date ? Time ?HR ?Symptoms/Rhythm ? 8 ??11/07/19 23:49 ?? 47.1 ?Auto Trigger ? Sinus Bradycardia ? 7 ??11/04/19 13:32 ?? 71.4 ?None or Accidental Push ? Sinus Rhythm w/Artifact/Lead Loss ? 6 ??10/29/19 11:02 ?? 63.0 ?No Symptoms Received ? Sinus Rhythm w/1st Degree AV Block/Lead Loss ? 5 ??10/25/19 19:22 ?? 90.1 ?None Reported ? Sinus Arrhythmia, Sinus Rhythm w/Artifact/Lead Loss ? 4 ??10/24/19 07:39 ?? 71.4 ?None or Accidental Push ? Sinus Rhythm w/1st Degree AV Block/Artifact ? 3 ??10/22/19 14:55 ?? 70.1 ?Auto Trigger ? Atrial Flutter with Variable Conduction w/Artifact ? 2 ??10/15/19 23:55 ?? 159.4 ?? Auto Trigger ? Sinus Bradycardia w/1st Degree AV Block/Run of V-Tach (5 1 ??10/15/19 09:55 ?? 72 ?Baseline ? Sinus Rhythm ? I have personally reviewed and interpreted this study. Procedure Note Jeannine Lezama MD - 11/18/2019 Patient name: Frandy Alvares Date of test: 10/09/2019 Type of Test: Event Monitor ([facility]) Hospital #: [id number] Location: [facility] : 1935 Age: 84 Sex: M Ref Physician(s): JEROD GARCIA MD Interpreted by: Jeannine Lezama MD uma information technology Tech: Preventice Monitoring Service Diagnosis: Monitoring Service: Preventice Reason for Test: I44.0: Atrioventricular block, first degree Monitor Used: [facility] ([facility]) Enrollment Period: Oct 15 - Nov 13, 2019 Interface [employer] Systems comments: Number of Transmissions Sent During Enrollment Period: 8 To obtain transmission tracing contact: [facility] [phone] Rhythm Summary: Afib longest duration: 00:00:58 Date Time of Afib longest episode: 10/22/2019 14:55:00 Afib shortest duration: 00:00:58 Date Time of Afib shortest episode: 10/22/2019 14:55:00 Peak avg Afib rate: 66 Bradycardia avg rate: 48 Bradycardia longest duration: 03:59:44 Bradycardia longest episode: 11/07/2019 00:50:00 Bradycardia shortest duration: 00:00:06 Bradycardia shortest episode: 10/17/2019 21:30:00 Mean heart rate: 53 Pauses >= 3 seconds: 0 Tachycardia avg rate: 106 Tachycardia longest duration: 00:04:09 Tachycardia longest episode: 10/18/2019 07:19:00 Tachycardia shortest duration: 00:00:14 Tachycardia shortest episode: 10/22/2019 18:45:00 Cardiologis Review of Transmissions: Baseline rhythm is NSR. 5 beat run of VT noted at a heart rate of 160bpm. HR range otherwise is 37-123bpm. Aflutter with variable AV block seen. Sinus bradycardia noted. First degree AV block seen. No symptoms reported. This study was interpreted by Jeannine Lezama MD Confirmed on 11/18/2019 - 12:53:06 by Jeannine Lezama MD Summary of Transmitted Events: # Date Time HR Symptoms/Rhythm 8 11/07/19 23:49 47.1 Auto Trigger Sinus Bradycardia 7 11/04/19 13:32 71.4 None or Accidental Push Sinus Rhythm w/Artifact/Lead Loss 6 10/29/19 11:02 63.0 No Symptoms Received Sinus Rhythm w/1st Degree AV Block/Lead Loss 5 10/25/19 19:22 90.1 None Reported Sinus Arrhythmia, Sinus Rhythm w/Artifact/Lead Loss 4 10/24/19 07:39 71.4 None or Accidental Push Sinus Rhythm w/1st Degree AV Block/Artifact 3 10/22/19 14:55 70.1 Auto Trigger Atrial Flutter with Variable Conduction w/Artifact 2 10/15/19 23:55 159.4 Auto Trigger Sinus Bradycardia w/1st Degree AV Block/Run of V-Tach (5 10/15/19 09:55 72 Baseline Sinus Rhythm I have personally reviewed and interpreted this study. Jerod Garcia MD CV CARDIAC SERVICES PROCEDURE S Final Result documented in this encounter Visit Diagnoses Diagnosis Heart block, first degree- Primary Heart block, first degree documented in this encounter Care Teams Jet Worker Relationship Specialty Start Date End Date Bao Pierre MD [address] [address] PCP - General 12/22/16 documented as of this encounter
--- OUTSIDE RECORDS SUMMARY | 2024-10-01 08:46 | XMS_ITS | Encounter Summary ---
Author Organization [facility] Address [address] [place] [address] Phone Care Team Providers Care Pipe Stem Aligner Name Role Phone Bao Pierre MD Primary Care Provider [phone] Reason for Referral * (Routine) - Closed Specialty Diagnoses / Procedures Referred By Contac t Referred To Contact Diagnoses Cardiac arrhythmia, unspecified cardiac arrhythmia type Heart block, first degree Procedures 48 HR Holter Monitor Jerod Garcia MD Phone: tel: fax: [facility] (All Locations) Referral ID Status Reason Start Date Expiration Date Visits Re quested Visits Authorized [id number] Closed 10/08/2019 04/18/2021 1 1 SPECIALIST * (Routine) - Closed Specialty Diagnoses / Procedures Referred By Contac t Referred To Contact Diagnoses Cardiac arrhythmia, unspecified cardiac arrhythmia type Procedures Transthoracic Echo Complete W Doppler/CF Jerod Garcia MD Phone: tel: fax: [facility] (All Locations) Referral ID Status Reason Start Date Expiration Date Visits Re quested Visits Authorized [id number] Closed 10/08/2019 04/18/2021 1 1 SPECIALIST Encounter Details Date Type Department Care Team (Late st Contact Info) Description 10/08/2019 10:00 AM NEWS SPECIALIST Office Visit [facility] Cardiology [address] [facility] 8[address] [place] [address] [place] [address] Jerod Garcia MD [address] [place] [address] Cardiac arrhythmia, unspecified cardiac arrhythmia type (Primary Dx); Heart block, first degree Social History Tobacco [...] on file Legal Sex Male 9:03 PM NEWS SPECIALIST Gender Identity Not on file Sexual Orientation Straight 10/15/2019 10 :34 PM NEWS SPECIALIST documented as of this encounter Last Filed Vital Signs Vital Sign Reading Time Taken Comments Blood Pressure 124/74 10/08/2019 10:08 AM NEWS SPECIALIST Pulse 66 10/08/2019 10:08 AM NEWS SPECIALIST Temperature - - Respiratory Rate - - Oxygen Saturation 97% 10/08/2019 10:08 AM NEWS SPECIALIST Inhaled Oxygen Concentration - - Weight 93.3 kg (205 lb 9.6 oz) 10/08/2019 10:08 AM NEWS SPECIALIST Height 175.3 cm (5' 9 ) 10/08/2019 10:08 AM NEWS SPECIALIST Body Mass Index 30.36 10/08/2019 10:08 AM NEWS SPECIALIST documented in this encounter Progress Notes * Jerod Garcia MD - 10/08/2019 12:00 AM CST Date: 10/08/2019 BAO PIERRE MD [address] [place] [address] Patient Name: ILSA ALVARES Date of : 1935 Date of Visit: 10/08/2019 HISTORY OF PRESENT ILLNESS: Mr. Ilsa Alvares is a very pleasant 84-year-old individual who is referred for the possibility of electrical issues with his heartbeat. Actually, approximately 5 or 6 years ago the question had been raised as to whether or not there were any blockages based on the stress test. A heart catheterization was done at [facility] and no significant disease was seen. Approximately 2 years ago, and I am not really sure of the specifics because the patient himself has no recollection, this is actually his bacteriology research assistant who is with him, he was sitting at a table, went to the bathroom, noted that he was incontinent. He then may have passed out. He was brought to the local emergency room where they said he was dehydrated, but he was not admitted. As best I can tell, no workup was ever instituted. This is a very vague recollection. As mentioned, it really is coming from his bacteriology research assistant. He has no recollection at all. He is here today because several weeks ago he was getting a back injection, actually a series of 6,and he was monitored and a nurse noted that there was an irregular heartbeat on the monitor. This is the primary reason for him being here since he is going to have additional injections shortly. He himself denies any recognition of this. He is unaware of any palpitations, dizzy or presyncopal spells other than positional. He has had no chest discomfort, no shortness of breath but is limited by his back. He goes to the bathroom 2 times a night, is not tired during the day, and does not sleep during the day. He has had no syncopal spells other than for the spell mentioned above of which we have is a vague recollection. PAST MEDICAL HISTORY: Remarkable for asthma as a child. Two years ago he had his gallbladder removed at [place]. He has had a high cholesterol treated for at least 6 years. He has had no history of hypertension, diabetes,ulcer, kidney, lung, or thyroid disease. FAMILY HISTORY: A brother has had valve heart disease and his mother during heart surgery years ago. SOCIAL HISTORY: He smoked a pack a day for 15 years, quit 2 years ago. No alcohol consumption. 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 There is no significant caffeine consumption. MEDICATIONS: 1. Uroxatral which is alfuzosin ER 10 mg. 2. Proscar 5 mg. 3. Mevacor 20 mg. PHYSICAL EXAMINATION: VITAL SIGNS: Blood pressure is 124/74. Pulse 66. O2 saturation 97%. Weight 205. NECK: There is no jugular venous distention with the patient at 45 degrees. The carotids are brisk and equal without bruit. CHEST: Clear. You can feel his apical impulse well. It is not enlarged nor sustained. There are no significant murmurs. EXTREMITIES: There is no clubbing, cyanosis, or peripheral edema. All his distal pulses are intact and are free of bruit. LABORATORY DATA: His EKG today just shows sinus rhythm with a sinus arrhythmia and no other abnormality. His bloodwork in April showed a creatinine of 1.32, normal potassium, normal liver tests. His troponin was negative at that time, and his hematocrit was 42%. Interestingly, his white cell count was 16,700. He had a Holter monitor placed on 08/19/2019 which showed no specific abnormality. The average heart rate was 54. No significant pauses. Rare supraventricular ectopic beat. Rare PVCs as well. It saysthat supraventricular ectopy was 3.49% with the longest run 4 beats and ventricular ectopy 1.5% with out any sustained ventricular ectopy. IMPRESSION: Mr. Alvares is basically asymptomatic. He really is not complaining of anything. What we saw we are not really sure of during a back injection. He had a Holter monitor which is relatively unremarkable.He is asymptomatic. The only thing in this whole story that concerns me is a spell 2 years ago whenhe may have been incontinent and passed out, but we really cannot be sure since he has no recollection of this. We know he has had a negative heart catheterization in the past. PLAN: In this setting, the only thing I would do is: 1. Continue current therapy. 2. Echo. 3. A 48-hour Holter monitor. If all that is negative, no further measures. ADDENDUM: Looking at his cath report from September 2013, they read it as virtually normal coronary vasculature. ELECTRONICALLY SIGNED - 10/09/2019 03:09 PM Jerod Garcia M.D., F.A.C.C. Professor, Medicine SN/tm cc: BAO PIERRE MD / SPECIALIST documented in this encounter Plan of Treatment Not on file documented as of this encounter Goals Goal Patient Goal Type Associated Problems Recent Progress Patient-Stated? Author CCM Chronic Pain Care Plan Chronic Care Management Worsening( 8:02 AM NEWS SPECIALIST) No Chika Watters RN Note: Problem: Chronic [...] W DOPPLER/CF W CONTRAST (10/09/2019 2:10 PM NEWS SPECIALIST) Anatomical Region Laterality Modality Ultrasound 10/09/2019 12:3 0 PM NEWS SPECIALIST Narrative 10/09/2019 5:14 PM NEWS SPECIALIST Patient name: Ilsa Alvares Date of test: 10/09/2019 Type of test: TTE w/Doppler [facility] #: [id number] Date of : 1935 (M) Expediter: Ai Spears RDCS Referring Physician: JEROD GARCIA MD Contrast Agent: 1.1 ml Optison Administered, (1.9 ml wasted). Contrast Administered by: Ilene Simpson RN Supervised/Interpreted by: Neal Kim MD Diagnosis: Location: [facility] Reason for test: cardiac arrhythmia MV Structure: [...] 2=Hypo 3=Akinetic 4=Dyskin./Aneurysm 0=Not visualized) Parasternal Long Earling:MAS=1 BAS=1 MP=1 BP=1 Parasternal Short Earling:MAS=1 MS=1 FL=1 MP=1 ML=1 MA=1 Apical 4 Chambers:=1 MS=1 BS=1 BL=1 FL=1 AL=1 Apical 2 Chambers:AI=1 FL=1 BI=1 BA=1 MA=1 AA=1 LV Global Longitudinal [...] MD By signing this report, the attending ethanol quality leader certifies that he or she has personally supervised and interpreted the echocardiogram and has reviewed and or edited and agrees with the written comments contained within the report. Procedure Note Neal Kim MD - 10/09/2019 Patient name: Ilsa Alvares Date of test: 10/09/2019 Type of test: TTE w/Doppler [facility] #: [id number] Date of : 1935 (M) Expediter: Ai Spears RDCS Referring Physician: JEROD GARCIA MD Contrast Agent: 1.1 ml Optison Administered, (1.9 ml wasted). Contrast Administered by: Ilene Simpson RN Supervised/Interpreted by: Neal Kim MD Diagnosis: Location: [facility] Reason for test: cardiac arrhythmia MV Structure: [...] 2=Hypo 3=Akinetic 4=Dyskin./Aneurysm 0=Not visualized) Parasternal Long Earling:MAS=1 BAS=1 MP=1 BP=1 Parasternal Short Earling:MAS=1 MS=1 FL=1 MP=1 ML=1 MA=1 Apical 4 Chambers:=1 MS=1 BS=1 BL=1 FL=1 AL=1 Apical 2 Chambers:AI=1 FL=1 BI=1 BA=1 MA=1 AA=1 LV Global Longitudinal [...] MD By signing this report, the attending ethanol quality leader certifies that he or she has personally supervised and interpreted the echocardiogram and has reviewed and or edited and agrees with the written comments contained within the report. us Jerod Garcia MD CV ECHO PROCEDURES Final Resu lt * 48 HR Holter Monitor (10/08/2019 11:54 AM NEWS SPECIALIST) Anatomical Region Laterality Modality Electrocardiogra phy 10/08/2019 12:0 0 PM NEWS SPECIALIST Narrative 10/14/2019 10:14 AM NEWS SPECIALIST Patient name: Ilsa Alvares Date of test: 10/08/2019 Type of Test: 48 Hr. Holter Monitoring [facility] #: [id number] ?Location: [facility] Heart and Vascular : 1935 ??Age: 84 ??Sex: M Ref Physician(s): JEROD GARCIA MD Interpreted by: Antonio Mai MD Hook-Up Tech: GINNY Gaston Hook-up Tech: HL7 Transfer Scan Tech: GINNY Gaston Reason for Test: Cardiac arrhythmia,unspecified Monitor Connected: 10/08/2019 at 11:48 Monitor Serial#: [id number] Case#: [id number] Instructed in use of Diary by: GINNY Gaston Hook-Up Tech comments: The device was applied by the crown and bridge technician on this note. The patient was instructed on how to use the device. The patient's questions were answered and arrangements were made for the disconnection and return of this device. Date Monitor Returned: 10/14/2019 Quality of Tracing: Good Monitoring Time: 44:28 Artifact Time: 03:27 Patient has Pacemaker?: No Conclusion: ??1st degree AVB and frequent supraventricular ectopy observed in the report ??Ectopic Gause Summary Supraventricular: ??9.42% of the total beats analyzed in the recording period Ventricular: ??0.49% of the total beats analyzed in the recording period STATISTICS: Total QRS: 939681 Normal Beats: 043283 Spraventricular Beats: 81078 Min. HR: 38 ?? Max. HR: 115 ?? Mean HR: 55 Pauses: (>3000 ms) ?Longest RR: 2 Tachycardia (>120 bpm): Longest Tachy Beats: Fastest Tachy Beats: Bradycardia (<50 bpm): Longest Helder Beats: 47 Slowest Helder Beats: 45 Ventricular Ectopy: Vent. Beats: 690 ??Singlets: 683 ?Couplets: ? Runs: 1 Supra Vent. Ectopy: Supra Vent. Beats: 36491 ?Aberrant: ??Singlets: 16850 ?Pairs: 51 Vent. Tachy: Bigeminy Episodes/Beats: / ?Trigeminy Episodes/Beats: / Supra Vent. Tachy: Bigeminy Episodes/Beats: 2817/02079 ?? Trigeminy Episodes/Beats: 133/1676 Atrial Paced Beats [...] 3000 milliseconds. ?? SUPRAVENTRICULAR SUMMARY: There were 802980 total beats analyzed. There were 49098 total supraventricular beats. The SVE/hour was 300. Supraventricular ectopic activity consisted of 54295 total beats, of these there were 26419 singles, 51 couplets, 17 runs of 3 beats or longer. The fastest supraventricular run had a rate of 130 BPM and occurred at 11:28:48 AM. The longest run was 9 beats long and occurred at 7:27:54 AM(2). ?? VENTRICULAR SUMMARY: There were 032674 total beats analyzed. There were 690 total [...] Jr., MD PhD - 10/14/2019 Patient name: Ilsa Alvares Date of test: 10/08/2019 Type of Test: 48 Hr. Holter Monitoring [facility] #: [id number] Location: [facility] Heart and Vascular : 1935 Age: 84 Sex: M Ref Physician(s): JEROD GARCIA MD Interpreted by: Antonio Mai MD Hook-Up Tech: GINNY Gaston Hook-up Tech: HL7 Transfer Scan Tech: GINNY Gaston Reason for Test: Cardiac arrhythmia,unspecified Monitor Connected: 10/08/2019 at 11:48 Monitor Serial#: [id number] Case#: [id number] Instructed in use of Diary by: GINNY Gaston Hook-Up Tech comments: The device was applied by the crown and bridge technician on this note. The patient was instructed on how to use the device. The patient's questions were answered and arrangements were made for the disconnection and return of this device. Date Monitor Returned: 10/14/2019 Quality of Tracing: Good Monitoring Time: 44:28 Artifact Time: 03:27 Patient has Pacemaker?: No Conclusion: 1st degree AVB and frequent supraventricular ectopy observed in the report Ectopic Gause Summary Supraventricular: 9.42% of the total beats analyzed in the recording period Ventricular: 0.49% of the total beats analyzed in the recording period STATISTICS: Total QRS: 755163 Normal Beats: 007971 Spraventricular Beats: 58613 Min. HR: 38 Max. HR: 115 Mean HR: 55 Pauses: (>3000 ms) Longest RR: 2 Tachycardia (>120 bpm): Longest Tachy Beats: Fastest Tachy Beats: Bradycardia (<50 bpm): Longest Helder Beats: 47 Slowest Helder Beats: 45 Ventricular Ectopy: Vent. Beats: 690 Singlets: 683 Couplets: Runs: 1 Supra Vent. Ectopy: Supra Vent. Beats: 98446 Aberrant: Singlets: [id number] Pairs: 51 Vent. Tachy: Bigeminy Episodes/Beats: / Trigeminy Episodes/Beats: / Supra Vent. Tachy: Bigeminy Episodes/Beats: 1154/82688 Trigeminy Episodes/Beats: 133/1676 Atrial Paced Beats (%): [...] than 3000 milliseconds. SUPRAVENTRICULAR SUMMARY: There were 380420 total beats analyzed. There were 15878 total supraventricular beats. The SVE/hour was 300. Supraventricular ectopic activity consisted [place] 76840 total beats, of these there were 29296 singles, 51 couplets, 17 runs of 3 beats or longer. The fastest supraventricular run had a rate of 130 BPM and occurred at 11:28:48 AM. The longest run was 9 beats long and occurred at 7:27:54 AM(2). VENTRICULAR SUMMARY: There were 329128 total beats analyzed. There were 690 total [...] interpreted this study. us Jerod Garcia MD CV CARDIAC SERVICES PROCEDURE S Final Result * TSH (10/08/2019 11:32 AM NEWS SPECIALIST) TSH (Thyrotropin) 2.66 0.27 - 4.20 uIU/mL [facility] Blood specimen (specimen) 10/08/2019 11:32 AM NEWS SPECIALIST 10/08/2019 12:12 PM NEWS SPECIALIST us Jerod Garcia MD LAB BLOOD ORDERABLES Final Re sult [facility] documented in this encounter Visit Diagnoses Diagnosis Cardiac arrhythmia, unspecified cardiac arrhythmia type- Primary Heart block, first degree Cardiac arrhythmia, unspecified cardiac arrhythmia type Heart block, first degree Cardiac arrhythmia, unspecified cardiac arrhythmia type documented in this encounter Care Teams Pipe Stem Aligner Relationship Specialty Start Date End Date Bao Pierre MD [address] [address] PCP - General 12/22/16 documented as of this encounter
--- OUTSIDE RECORDS SUMMARY | 2024-10-01 08:46 | XMS_ITS | Encounter Summary ---
Author Organization [facility] Address [address] [place] [address] Phone Care Team Providers Care Prosthetic Lab Technician Name Role Phone Bao Pierre MD Primary Care Provider [phone] Encounter Details Date Type Department Care Team (Latest Contact Info) Description 10/08/2019 Orders Only [facility] Scanning, Provider Social History Tobacco Use Types Packs/Day Years Used Date Smoking Tobacco: Former Pipe 1 966 2015 Smokeless Tobacco: Never Comments:5-6 times a day Alcohol Use Standard Drinks/Week Comments No 0 (1 standard drink = 0.6 oz pur e alcohol) PHQ-2 Answer Date Recorded PHQ-2 Score 0 05/24/2019 Sex and Gender Information Value Date Recorded Sex Assigned at Not on file Legal Sex Male 9:03 PM PROGRAM OFFICER Gender Identity Not on file Sexual Orientation Straight 10/15/2019 10 :34 PM PROGRAM OFFICER documented as of this encounter Plan of Treatment Not on file documented as of this encounter Goals Goal Patient Goal Type Associated Problems Recent Progress Patient-Stated? Author CCM Chronic Pain Care Plan Chronic Care Management Worsening( 8:02 AM PROGRAM OFFICER) No Chika Watters, RN Note: Problem: Chronic Pain Goals: 1. Minimize further functional decline 2. Maximize quality of life 3. Control pain Strategies: - Activity/exercise program recommendation - Conservative stepwise pain medicine strategy with multi-disciplinary approach - Recommend healthy lifestyle strategies and compensatory methods as needed documented as of this encounter Procedures Procedure Name Priority Date/Time Associated Diagnosis Comments CARDIOLOGY DOCUMENT SCAN 10/08/2019 documented in this encounter Results * SCAN - CARDIOLOGY (10/08/2019) Anatomical Region Laterality Modality Other us Provider Scanning CV CARDIAC SERVICES PROCEDURES Edited Result - Final documented in this encounter Visit Diagnoses Not on filedocumented in this encounter Care Teams Prosthetic Lab Technician Relationship Specialty Start Date End Date Bao Pierre MD [address] [facility] [place], [place] [address] PCP - General 12/22/16 documented as of this encounter
--- OUTSIDE RECORDS SUMMARY | 2024-10-01 08:46 | XMS_ITS | Encounter Summary ---
Author Organization [facility] Address [address] [place] [address] Phone Care Team Providers Care Web Marketing Specialist Name Role Phone Bao Pierre MD Primary Care Provider [phone] Encounter Details Date Type Department Care Team (Late st Contact Info) Description 10/08/2019 11:35 AM FOOD AND BEVERAGE COORDINATOR Lab [facility] Endocrinology Metabolism and Lipid [address] [facility] 8th [place] [address] [place] [address] Cardiac arrhythmia, unspecified cardiac arrhythmia type Social History Tobacco Use Types Packs/Day [...] Sex Male 9:03 PM FOOD AND BEVERAGE COORDINATOR Gender Identity Not on file Sexual Orientation Straight 10/15/2019 10 :34 PM FOOD AND BEVERAGE COORDINATOR documented as of this encounter Plan of Treatment Not on file documented as of this encounter Goals Goal Patient Goal Type Associated Problems Recent Progress Patient-Stated? Author CCM Chronic Pain Care Plan Chronic Care Management Worsening( 8:02 AM FOOD AND BEVERAGE COORDINATOR) No hCika Watters, RN Note: Problem: Chronic Pain Goals: 1. Minimize further functional decline 2. Maximize quality of life 3. Control pain Strategies: - Activity/exercise program recommendation - Conservative stepwise pain medicine strategy with multi-disciplinary approach - Recommend healthy lifestyle strategies and compensatory methods as needed documented as of this encounter Procedures Procedure Name Priority Date/Time Associated Diagnosis Comments TSH Routine 10/08/2019 11:32 AM FOOD AND BEVERAGE COORDINATOR Cardiac arrhythmia, unspecified cardiac arrhythmia type documented in this encounter Results * TSH (10/08/2019 11:32 AM FOOD AND BEVERAGE COORDINATOR) TSH (Thyrotropin) 2.66 0.27 - 4.20 uIU/mL [facility] Blood specimen (specimen) 10/08/2019 11:32 AM FOOD AND BEVERAGE COORDINATOR 10/08/2019 12:12 PM FOOD AND BEVERAGE COORDINATOR us Chris Garcia MD LAB BLOOD ORDERABLES Final Re sult [facility] documented in this encounter Visit Diagnoses Diagnosis Cardiac arrhythmia, unspecified cardiac arrhythmia type documented in this encounter Care Teams Web Marketing Specialist Relationship Specialty Start Date End Date Bao Pierre MD [address] [address] PCP - General 12/22/16 documented as of this encounter
--- OUTSIDE RECORDS SUMMARY | 2024-10-01 08:46 | XMS_ITS | Encounter Summary ---
Author Organization [facility] [employer] [facility] Address [address] [place] [address] Phone Care Team Providers Care Hotel Attendant Name Role Phone Bao Pierre MD Primary Care Provider [phone] Encounter Details Date Type Department Care Team (Latest Contact Info) Description 10/24/2019 Orders Only [facility] Chris Garcia MD [address] [place] [address] Social History Tobacco Use Types Packs/Day Years Used Date Smoking Tobacco: Former Pipe 2015 Smokeless Tobacco: Never Comments:5-6 times a day Alcohol Use Standard Drinks/Week Comments No 0 (1 standard drink = 0.6 oz pur e alcohol) PHQ-2 Answer Date Recorded PHQ-2 Score 0 05/24/2019 Sex and Gender Information Value Date Recorded Sex Assigned at Not on file Legal Sex Male 9:03 PM INSTRUMENT LENS GRINDER Gender Identity Not on file Sexual Orientation Straight 10/15/2019 10 :34 PM INSTRUMENT LENS GRINDER documented as of this encounter Plan of Treatment Not on file documented as of this encounter Goals Goal Patient Goal Type Associated Problems Recent Progress Patient-Stated? Author CCM Chronic Pain Care Plan Chronic Care Management Worsening( 8:02 AM INSTRUMENT LENS GRINDER) No Chika Watters, RN Note: Problem: Chronic Pain Goals: 1. Minimize further functional decline 2. Maximize quality of life 3. Control pain Strategies: - Activity/exercise program recommendation - Conservative stepwise pain medicine strategy with multi-disciplinary approach - Recommend healthy lifestyle strategies and compensatory methods as needed documented as of this encounter Procedures Procedure Name Priority Date/Time Associated Diagnosis Comments CARDIOLOGY DOCUMENT SCAN 10/24/2019 documented in this encounter Results * SCAN - CARDIOLOGY (10/24/2019) Anatomical Region Laterality Modality Other Chris Garcia MD CV CARDIAC SERVICES PROCEDURE S Final Result documented in this encounter Visit Diagnoses Not on filedocumented in this encounter Care Teams Hotel Attendant Relationship Specialty Start Date End Date Bao Pierre MD [address] [address] PCP - General 12/22/16 documented as of this encounter
--- OUTSIDE RECORDS SUMMARY | 2024-10-01 08:46 | XMS_ITS | Encounter Summary ---
Author Organization [facility] [employer] [facility] Address [address] [place] [address] Phone Care Team Providers Care Law Enforcement Instructor Name Role Phone Bao Pierre MD Primary Care Provider [phone] Encounter Details Date Type Department Care Team (Late st Contact Info) Description 08/28/2019 Telephone [facility] Cardiology [address] [facility] 8th [place] [address] [place] [address] Charity Griffith Social History Tobacco Use Types Packs/Day Years Used Date Smoking Tobacco: Former Pipe 1 [id number] Smokeless Tobacco: Never Comments:5-6 times a day Alcohol Use Standard Drinks/Week Comments No 0 (1 standard drink = 0.6 oz pur e alcohol) PHQ-2 Answer Date Recorded PHQ-2 Score 0 05/24/2019 Sex and Gender Information Value Date Recorded Sex Assigned at Not on file Legal Sex Male 9:03 PM CHRONOMETER ADJUSTER Gender Identity Not on file Sexual Orientation Straight 10/15/2019 10 :34 PM CHRONOMETER ADJUSTER documented as of this encounter Miscellaneous Notes * Telephone Encounter - Sophia Frank CMA - 08/28/2019 4:29 PM CST jonathon All records in [facility] NOMETER ADJUSTER * Telephone Encounter - Charity Griffith - 08/28/2019 3:34 PM CST What ins do you carry/spec billing? Medicare and BCBS Diagnosis/Reason for Appointment: Slow HR Best Contact Number for Patient: [phone] Who: Primary Care Physician: Dr. Bao Doty Phone: Referring Physician: PCP Ref Phone: If Referring MD is not PCP, list specialty: Yes No If yes, who, phone, when & where? Have you ever seen a Director Of Bands in an office setting? [] [x] IF YES: Are you planning on transferring care to a [facility] MD or are you looking for a second opinion onyour current diagnosis? [] 2nd Opinion (Appts will be CX if records not received 48hrs prior to appt) []Transferring Care to Congenital Patients Only Date and location of last echo: Dr. Yuki Fisher Patients OnlyHemodialysis or peritoneal dialysis need referral from MD (DO NOT SCHEDULE) Date and location of last renal ultrasound (with doppler or duplex scan): Date and location of last Abd CT Angiogram or Abd MR Angiogram (looks at adrenal glands or blood flow to kidneys): Date and location of last 24-hour Blood Pressure Monitor: Most recent lab work (BMP, Lipids): Patient History Questions Yes No Where/When/Notes Have you ever been diagnosed with or have you ever undergone treatments for cancer? [] [x] If 'Yes', Schedule first available with Dept: 170; Team: Oncology Cardiology If yes, when and where? [] [] Have you been hospitalized at [facility] within the last 3 years? [] [x] If yes, did you see a Director Of Bands while hospitalized? [] [] Have you EVER been hospitalized for ANY cardiac issue? [] [x] Have you ever had an EKG? [] [x] Have you ever had a stress test? [] [x] Have you ever had an echo? [] [x] Have you ever worn a heart monitor at home? [x] [] PCP, done a few weeks ago Have you ever had a Cardiac Cath? [x] [] Berto RUBALCAVA, done years ago Have you ever had a Cardiac Surgery (including ablations, cardioversions, CABG, etc.)? [] [x] Have you ever had a sleep study? [] [x] Do you have a device? If yes what type? (Pacemaker, Defibrillator, Implanted Loop Recorder) [] [x] If yes, where and when was device put in? Hat Marker? ([employer], [employer], [employer]) FEMALE PTS: Were any of the tests/procedures completed under a different (maiden) name? If yes, what was it? n/a Notes: Appointment Date: 10/08/2019 Type: IOV Provider: Jonathon Location: [facility] [x] Confirm appt date, time, provider and location. [] Advise pt to arrive 15-20 min early (30 for PARDEEP Fisher). [] Advise patient to bring medications/list, photo ID and insurance card [] Advise of New Patient Packet being mailed to them. [] Inform ref MD Office to fax cardiac related records. NOMETER ADJUSTER documented in this encounter Plan of Treatment Not on file documented as of this encounter Goals Goal Patient Goal Type Associated Problems Recent Progress Patient-Stated? Author CCM Chronic Pain Care Plan Chronic Care Management Worsening( 8:02 AM CHRONOMETER ADJUSTER) No Chika Watters, RN Note: Problem: Chronic Pain Goals: 1. Minimize further functional decline 2. Maximize quality of life 3. Control pain Strategies: - Activity/exercise program recommendation - Conservative stepwise pain medicine strategy with multi-disciplinary approach - Recommend healthy lifestyle strategies and compensatory methods as needed documented as of this encounter Visit Diagnoses Not on filedocumented in this encounter Care Teams Law Enforcement Instructor Relationship Specialty Start Date End Date Bao Pierre MD [address] [address] PCP - General 12/22/16 documented as of this encounter
--- OUTSIDE RECORDS SUMMARY | 2024-10-01 08:46 | XMS_ITS | Encounter Summary ---
Author Organization [facility] [employer] [facility] Address [address] [place] [address] Phone Care Team Providers Care Hazmat Technician Name Role Phone Bao Pierre MD Primary Care Provider Encounter Details Date Type Department Care Team (Latest Contact Info) Description 10/10/2019 Orders Only [facility] Scanning, Provider [...] on file Legal Sex Male 9:03 PM COTTON BAG CLIPPER Gender Identity Not on file Sexual Orientation Straight 10/15/2019 10 :34 PM COTTON BAG CLIPPER documented as of this encounter Plan of Treatment Not on file documented as of this encounter Goals Goal Patient Goal Type Associated Problems Recent Progress Patient-Stated? Author CCM Chronic Pain Care Plan Chronic Care Management Worsening( 8:02 AM COTTON BAG CLIPPER) No Chika Watters, RN Note: Problem: Chronic Pain Goals: 1. Minimize further functional decline 2. Maximize quality of life 3. Control pain Strategies: - Activity/exercise program recommendation - Conservative stepwise pain medicine strategy with multi-disciplinary approach - Recommend healthy lifestyle strategies and compensatory methods as needed documented as of this encounter Procedures Procedure Name Priority Date/Time Associated Diagnosis Comments CARDIOLOGY DOCUMENT SCAN 10/10/2019 documented in this encounter Results * SCAN - CARDIOLOGY (10/10/2019) Anatomical Region Laterality Modality Other Provider Scanning CV CARDIAC SERVICES PROCEDURES Final Result documented in this encounter Visit Diagnoses Not on filedocumented in this encounter Care Teams Hazmat Technician Relationship Specialty Start Date End Date Bao Pierre MD [address] [address] PCP - General 12/22/16 documented as of this encounter
--- OUTSIDE RECORDS SUMMARY | 2024-10-01 08:46 | XMS_ITS | Encounter Summary ---
Author Organization [facility] Address [address] [place] [address] Phone Care Team Providers Care Senior Java Ui Developer Name Role Phone Bao Pierre MD Primary Care Provider [phone] Reason for Visit * (Routine) - Closed Specialty Diagnoses / Procedures Referred By Amber flores Referred To Contact Diagnoses Heart block, first degree Procedures MCT Mobile Cardiac Telemetry Event Monitor Jerod Garcia MD Phone: tel: fax: [facility] Referral ID Status Reason Start Date Expiration Date Visits Re quested Visits Authorized [id number] Closed 10/09/2019 04/19/2021 1 1 Encounter Details Date Type Department Care Team (Latest Contact Info) Description 10/09/2019 10:30 AM HELPER COORDINATOR Ancillary Procedure [facility] [address] [facility] [address] [place] [address] Jerod Garcia MD [address] [place] [address] Heart block, first degree Social History Tobacco Use Types Packs/Day Years Used Date Smoking Tobacco: Former Pipe 1 96 - 2015 Smokeless Tobacco: Never Comments:5-6 times a day Alcohol Use Standard Drinks/Week Comments No 0 (1 standard drink = 0.6 oz pur e alcohol) PHQ-2 Answer Date Recorded PHQ-2 Score 0 05/24/2019 Sex and Gender Information Value Date Recorded Sex Assigned at Not on file Legal Sex Male 9:03 PM HELPER COORDINATOR Gender Identity Not on file Sexual Orientation Straight 10/15/2019 10 :34 PM HELPER COORDINATOR documented as of this encounter Plan of Treatment Not on file documented as of this encounter Goals Goal Patient Goal Type Associated Problems Recent Progress Patient-Stated? Author CCM Chronic Pain Care Plan Chronic Care Management Worsening( 8:02 AM HELPER COORDINATOR) Chika Tracy RN Note: Problem: Chronic Pain Goals: 1. Minimize further functional decline 2. Maximize quality of life 3. Control pain Strategies: - Activity/exercise program recommendation - Conservative stepwise pain medicine strategy with multi-disciplinary approach - Recommend healthy lifestyle strategies and compensatory methods as needed documented as of this encounter Procedures Procedure Name Priority Date/Time Associated Diagnosis Comments MCT - MOBILE CARDIAC TELEMETRY EVENT MONITOR Routine 10/09/2019 9:48 AM HELPER COORDINATOR Heart block, first degree documented in this encounter Results * MCT Mobile Cardiac Telemetry Event Monitor (10/09/2019 9:48 AM HELPER COORDINATOR) Anatomical Region Laterality Modality Electrocardiogra phy 10/09/2019 10:3 0 AM HELPER COORDINATOR Narrative 11/18/2019 12:53 PM HELPER COORDINATOR Patient name: Frandy Alvares Date of test: 10/09/2019 Type of Test: Event Monitor ([facility]) [facility] #: [id number] ?Location: Heart [facility] : 1935 ??Age: 84 ??Sex: M Ref Physician(s): JEROD GARCIA MD Interpreted by: Jeannine Lezama MD [facility] Tech: [employer] Monitoring Service Diagnosis: Monitoring Service: [employer] Reason for Test: I44.0: Atrioventricular block, first degree Monitor Used: Body Guardian Heart ([facility]) ?? Enrollment Period: Oct 15 - Nov 13, 2019 [employer] comments: Number of Transmissions Sent During Enrollment Period: 8 To obtain transmission tracing contact: [facility] ??[phone] Rhythm Summary: Afib longest duration: 00:00:58 Date [...] test: 10/09/2019 Type of Test: Event Monitor ([facility]) [facility] #: [id number] Location: [facility] : 1935 Age: 84 Sex: M Ref Physician(s): JEROD GARCIA MD Interpreted by: Jeannine Lezama MD [employer] Tech: [employer] Monitoring Service Diagnosis: Monitoring Service: [employer] Reason for Test: I44.0: Atrioventricular block, first degree Monitor Used: Body Guardian Heart ([facility]) Enrollment Period: Oct 15 - Nov 13, 2019 [employer] comments: Number of Transmissions Sent During Enrollment Period: 8 To obtain transmission tracing contact: [facility] [phone] Rhythm Summary: Afib longest duration: 00:00:58 Date [...] Degree AV Block/Run of V-Tach (5 1 10/15/19 09:55 72 Baseline Sinus Rhythm I have personally reviewed and interpreted this study. Jerod Garcia MD CV CARDIAC SERVICES PROCEDURE S Final Result documented in this encounter Visit Diagnoses Diagnosis Heart block, first degree documented in this encounter Care Teams Senior Java Ui Developer Relationship Specialty Start Date End Date Bao Pierre MD [address] [address] PCP - General 12/22/16 documented as of this encounter
--- OUTSIDE RECORDS SUMMARY | 2024-10-01 08:46 | XMS_ITS | Encounter Summary ---
Author Organization [facility] Address [address] [place] [address] Phone Care Team Providers Care Carrier Operator Name Role Phone Bao Pierre MD Primary Care Provider [phone] Encounter Details Date Type Department Care Team (Latest Contact Info) Description 08/22/2019 Orders Only [facility] Scanning, Provider [...] on file Legal Sex Male 9:03 PM LAUNCH ENGINEER Gender Identity Not on file Sexual Orientation Straight 10/15/2019 10 :34 PM LAUNCH ENGINEER documented as of this encounter Plan of Treatment Not on file documented as of this encounter Goals Goal Patient Goal Type Associated Problems Recent Progress Patient-Stated? Author CCM Chronic Pain Care Plan Chronic Care Management Worsening( 8:02 AM LAUNCH ENGINEER) No Chika Watters, RN Note: Problem: Chronic Pain Goals: 1. Minimize further functional decline 2. Maximize quality of life 3. Control pain Strategies: - Activity/exercise program recommendation - Conservative stepwise pain medicine strategy with multi-disciplinary approach - Recommend healthy lifestyle strategies and compensatory methods as needed documented as of this encounter Procedures Procedure Name Priority Date/Time Associated Diagnosis Comments CARDIOLOGY DOCUMENT SCAN 08/22/2019 documented in this encounter Results * SCAN - CARDIOLOGY (08/22/2019) Anatomical Region Laterality Modality Other us Provider Scanning CV CARDIAC SERVICES PROCEDURES Final Result documented in this encounter Visit Diagnoses Not on filedocumented in this encounter Care Teams Carrier Operator Relationship Specialty Start Date End Date Bao Pierre MD [address] [address] PCP - General 12/22/16 documented as of this encounter
--- OUTSIDE RECORDS SUMMARY | 2024-10-01 08:46 | XMS_ITS | Encounter Summary ---
Author Organization [facility] [employer] [facility] Address [address] [place] [address] Phone Care Team Providers Care Water Service Dispatcher Name Role Phone Bao Pierre MD Primary Care Provider [phone] Encounter Details Date Type Department Care Team (Latest Contact Info) Description 10/15/2019 Orders Only [facility] Chris Garcia MD [address] [place] [address] Social History Tobacco Use Types Packs/Day Years Used Date Smoking Tobacco: Former Pipe 2015 Smokeless Tobacco: Never Comments:5-6 times a day Alcohol Use Standard Drinks/Week Comments No 0 (1 standard drink = 0.6 oz pur e alcohol) PHQ-2 Answer Date Recorded PHQ-2 Score 0 05/24/2019 Sex and Gender Information Value Date Recorded Sex Assigned at Not on file Legal Sex Male 9:03 PM LOCK TECHNICIAN Gender Identity Not on file Sexual Orientation Straight 10/15/2019 10 :34 PM LOCK TECHNICIAN documented as of this encounter Plan of Treatment Not on file documented as of this encounter Goals Goal Patient Goal Type Associated Problems Recent Progress Patient-Stated? Author CCM Chronic Pain Care Plan Chronic Care Management Worsening( 8:02 AM LOCK TECHNICIAN) No Chika Watters, RN Note: Problem: Chronic Pain Goals: 1. Minimize further functional decline 2. Maximize quality of life 3. Control pain Strategies: - Activity/exercise program recommendation - Conservative stepwise pain medicine strategy with multi-disciplinary approach - Recommend healthy lifestyle strategies and compensatory methods as needed documented as of this encounter Procedures Procedure Name Priority Date/Time Associated Diagnosis Comments CARDIOLOGY DOCUMENT SCAN 10/15/2019 3:17 PM LOCK TECHNICIAN documented in this encounter Results * SCAN - CARDIOLOGY (10/15/2019 3:17 PM LOCK TECHNICIAN) Anatomical Region Laterality Modality Other Chris Garcia MD CV CARDIAC SERVICES PROCEDURE S Final Result documented in this encounter Visit Diagnoses Not on filedocumented in this encounter Care Teams Water Service Dispatcher Relationship Specialty Start Date End Date Bao Pierre MD [address] [address] PCP - General 12/22/16 documented as of this encounter
--- OUTSIDE RECORDS SUMMARY | 2024-10-01 08:46 | XMS_ITS | Encounter Summary ---
Author Organization [facility] [employer] [facility] Address [address] [place] [address] Phone Care Team Providers Care Sales Development Manager Name Role Phone Bao Pierre MD Primary Care Provider [phone] Encounter Details Date Type Department Care Team (Latest Contact Info) Description 10/16/2019 Orders Only [facility] Chris Garcia MD [address] [place] [address] Social History Tobacco Use Types Packs/Day Years Used Date Smoking Tobacco: Former Pipe 2015 Smokeless Tobacco: Never Comments:5-6 times a day Alcohol Use Standard Drinks/Week Comments No 0 (1 standard drink = 0.6 oz pur e alcohol) PHQ-2 Answer Date Recorded PHQ-2 Score 0 05/24/2019 Sex and Gender Information Value Date Recorded Sex Assigned at Not on file Legal Sex Male 9:03 PM ETHNOGRAPHIC MATERIALS CONSERVATOR Gender Identity Not on file Sexual Orientation Straight 10/15/2019 10 :34 PM ETHNOGRAPHIC MATERIALS CONSERVATOR documented as of this encounter Plan of Treatment Not on file documented as of this encounter Goals Goal Patient Goal Type Associated Problems Recent Progress Patient-Stated? Author CCM Chronic Pain Care Plan Chronic Care Management Worsening( 8:02 AM ETHNOGRAPHIC MATERIALS CONSERVATOR) No Chika Watters, RN Note: Problem: Chronic Pain Goals: 1. Minimize further functional decline 2. Maximize quality of life 3. Control pain Strategies: - Activity/exercise program recommendation - Conservative stepwise pain medicine strategy with multi-disciplinary approach - Recommend healthy lifestyle strategies and compensatory methods as needed documented as of this encounter Procedures Procedure Name Priority Date/Time Associated Diagnosis Comments CARDIOLOGY DOCUMENT SCAN 10/16/2019 4:31 AM ETHNOGRAPHIC MATERIALS CONSERVATOR documented in this encounter Results * SCAN - CARDIOLOGY (10/16/2019 4:31 AM ETHNOGRAPHIC MATERIALS CONSERVATOR) Anatomical Region Laterality Modality Other Chris Garcia MD CV CARDIAC SERVICES PROCEDURE S Final Result documented in this encounter Visit Diagnoses Not on filedocumented in this encounter Care Teams Sales Development Manager Relationship Specialty Start Date End Date Bao Pierre MD [address] [address] PCP - General 12/22/16 documented as of this encounter
--- OUTSIDE RECORDS SUMMARY | 2024-10-01 08:47 | XMS_ITS | Encounter Summary ---
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
--- OUTSIDE RECORDS SUMMARY | 2024-10-01 08:47 | XMS_ITS | Encounter Summary ---
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 Procedures XR Hip Left 2 or 3 Views W Pelvis Hilary iLang MD Phone: tel: fax: [facility] Referral ID Status Reason Start Date Expiration Date Visits Re quested Visits Authorized [id number] Closed 05/14/2019 11/22/2020 1 1 Reason for Visit * Diagnostic Imaging (Routine) - Closed Specialty Diagnoses / Procedures Referred By Amber flores Referred To Contact Diagnoses 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 Procedures XR Hip Left 2 or 3 Views W Pelvis Hilary Liang MD Phone: tel: fax: [facility] Referral ID Status Reason Start Date Expiration Date Visits Re quested Visits Authorized [id number] Closed 05/14/2019 11/22/2020 1 1 Encounter Details Date Type Department Care Team (Latest Contact Info) Description 06/24/2019 10:24 AM CDT - 06/24/2019 11:59 PM CDT Hospital Encounter [facility] [address] [place] [address] Hilary Liang MD [address] [place] [address] 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 Discharge Disposition: Discharge to home or self [...] on file 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 8 tablet/capsul e 10/03/2018 08/02/20 19 aspirin 325 mg EC tabletIndications:D eep Vein Thrombosis Prevention Take 1 tablet (325 mg total) by mouth 2 (two) times a day. 84 tablet 05/29/2018 08/02/20 19 aspirin 81 mg enteric coated tablet ADULT ASPIRIN EC LOW STRENGTH 81 MG ORAL TABLET DELAYED RELEASE 09/13/2013 02/23/20 21 vicg-vpn-add-dayana-ps yl-kelp-pec (Fiber 6) 1,000 mg tablet FIBER 09/13/2013 21 celecoxib (CeleBREX) 100 mg capsuleIndications: Osteoarthritis,Post operative Acute Pain TAKE 2 PILLS WITH BREAKFAST THE DAY BEFORE SX. TAKE 1 PILL BID AFTER DISCHARGE. 10 capsule 05/23/2018 08/02/20 19 cyclobenzaprine (FLEXERIL) 10 mg tablet Take 0.5 tablets (5 mg total) by mouth every 8 (eight) hours as needed for muscle spasms. 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 84 tablet 05/28/2018 08/02/20 19 inulin 2 gram tablet,chewable Take 1 tablet by mouth 2 (two) times a day 08/22/20 23 lisinopril-hydroCHL OROthiazide (ZESTORETIC) 10-12.5 mg per tablet 10/02/1969 03/08/20 22 lovastatin (MEVACOR) 20 mg tabletIndications:h yperlipidemia Take 20 mg by mouth daily. 12 02/15/2018 12/03/19 20 naproxen sodium 220 mg capsule ALEVE CAPSULE 09/13/2013 03/31/20 21 ondansetron ODT (ZOFRAN-ODT) 4 mg disintegrating tablet Dissolve 1 tablet for mild to moderate nausea or vomiting or 2 tablets for severe nausea or vomiting oral twice a day as needed. 15 tablet 05/02/2019 08/02/20 19 senna-docusate (PERICOLACE) 8.6-50 mgIndications:const ipation Take 2 tablets by mouth 2 (two) times a day. 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 Dictated by: Chris Martinez M.D. The radiology attending physician has personally reviewed this study, and had reviewed and/or edited this written report and agrees with it. Electronically signed by: Taj Mariano MD [facility] 06/24/2019 5:58 PM CDT EXAMINATION: X-ray hip low AP and cross table lateral HISTORY: Left hip arthroplasty FINDINGS: A low AP view of the pelvis and a crosstable lateral view of the left hip are submitted for interpretation with comparison to 06/09/2018 Redemonstrated is a left total hip arthroplasty with near-anatomic alignment. ??The arthroplasty components are well seated, with no periprosthetic lucency or fracture. ??There is mild right hip joint space narrowing consistent with mild osteoarthritis. Procedure Note Karla Mariano MD - 06/24/2019 EXAMINATION: X-ray hip low AP and cross table lateral HISTORY: Left hip arthroplasty FINDINGS: A low AP view of the pelvis and a crosstable lateral view of the left hip are submitted for interpretation with comparison to 06/09/2018 Redemonstrated is a left total hip arthroplasty with near-anatomic alignment. The arthroplasty components are well seated, with no periprosthetic lucency or fracture. There is mild right hip joint space narrowing consistent with mild osteoarthritis. IMPRESSION: 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 Dictated by: Chris Martinez M.D. The radiology attending physician has personally reviewed this study, and had reviewed and/or edited this written report and agrees with it. 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
--- OUTSIDE RECORDS SUMMARY | 2024-10-01 08:47 | XMS_ITS | Encounter Summary ---
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 Also Dr. Lange wants him to have any inj with pain management because of his previous reaction. Furthermore, we've exhausted other conservative options like gabapentin and PT. He could consider acupuncture and massage, but these are out of pocket expenses. * Telephone Encounter - Aristides Christopher CMA - 05/30/2019 2:58 PM CDT I spoke with Frandy and he said Dr. Shafer told him there was not much more he could do for him. He says he got help from the first injection for about 4 years and the ones after only about a week. I told him if that was the case then I was not sure it would be any different if we did them. I let him know that I would share this information with Ange. * Telephone Encounter - Ange Ramires PA - 05/30/2019 2:20 PM CDT Please let pt know the next step is to consider injections, however, since he's had reactions in the past, we recommend he return to Dr. Shafre for these injections who has given him medication duringthe injection to prevent reaction * Telephone Encounter - Konrad Lange MD - 05/29/2019 5:40 PM CDT Okay to consider but I would recommend referring him back to pain management for these injections. We do not have the resources necessary to give IV medications during injections. * Telephone Encounter - Ange Ramires PA - 05/29/2019 2:35 PM CDT This patient has lower back pain that is present with standing and walking, improves with rest. No radicular symptoms. He has severe central stenosis. We did PT without relief of pain, gabapentin nowwithout relief of pain; he's had BREANNE's in the past but they were complicated by vasovagal response and he was given special medication to prevent this by Dr. Shafer. What are your thoughts on injections for this patient? Thanks * Telephone Encounter - Senait Panchal MA - 05/29/2019 12:20 PM CDT Patient update. 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 What is the next step. documented in this encounter Plan of Treatment Not on file documented as of this encounter Visit Diagnoses Not on filedocumented in this encounter Care Teams Motor Boss Relationship Specialty Start Date End Date Bao Pierre MD [address] [place] [address] PCP - General 12/22/16 documented as of this encounter
--- OUTSIDE RECORDS SUMMARY | 2024-10-01 08:47 | XMS_ITS | Encounter Summary ---
Author Organization [facility] of 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 He states he believes he already has an appointment with Dr. Shafer and will discuss this with him. * Telephone Encounter - Ange Ramires PA - 07/03/2019 3:21 PM CDT At this point it's the most we can offer him as we have done PT, neuropathic medication--the remaining option is injection and Dr. Lange would prefer Dr. Shafer evaluate him for injection. I would recommend he at least call Dr. Shafer's office to make an appointment. Thanks * Telephone Encounter - Senait Panchal CMA - 07/03/2019 10:01 AM CDT S/w Shayy. She states the Gabapentin is not helping Frandy. From review of the chart it shows that Ange suggested he see pain management. Shayy states that he saw Dr. Shafer in the past and that hesaid he could not do any more injections on him. * Telephone Encounter - Senait Panchal CMA - 07/02/2019 9:53 AM CDT LMOR regarding below. * Telephone Encounter - Casie Toro - 07/01/2019 1:41 PM CDT [phone] Shayy friend/care transition coordinator is returning missed call * Telephone Encounter - Senait Panchal CMA - 07/01/2019 1:36 PM CDT LMOR regarding below. * Telephone Encounter - James Valenzuela B.A. - 07/01/2019 10:55 AM CDT Shayy returning Diana's call. Shayy at [phone] * Telephone Encounter - Senait Panchal CMA - 06/27/2019 12:27 PM CDT Attempted to reach Shayy - no VM set up. SMS message sent to return call. * Telephone Encounter - James Valenzuela B.A. - 06/26/2019 10:43 AM CDT Pt's daughter, Shayy, states Ange increased pt's Gabapentin to twice a day. States hasn't made any difference. Asking if should still take twice. Asking about next step in care. Shayy is at [phone] documented in this encounter Plan of Treatment Not on file documented as of this encounter Visit Diagnoses Not on filedocumented in this encounter Care Teams Emblem Cutter Relationship Specialty Start Date End Date Bao Pierre MD [address] [place] [address] PCP - General 12/22/16 documented as of this encounter
--- OUTSIDE RECORDS SUMMARY | 2024-10-01 08:47 | XMS_ITS | Encounter Summary ---
Author Organization [facility] Address [address] [place] [address] Phone Care Team Providers Care Bobbin Handler Name Role Phone Bao Pierre MD Primary Care Provider [phone] Encounter Details Date Type Department Care Team (Late st Contact Info) Description 06/19/2019 Orders Only [facility] Orthopaedic Surgery [address] [facility] [address] [place] [address] [place] [address] Hilary Liang MD [address] [place] [address] Social History Tobacco Use Types Packs/Day Years Used Date Smoking Tobacco: Former Pipe 2015 Smokeless Tobacco: Never Comments:5-6 times a day Alcohol Use Standard Drinks/Week Comments No 0 (1 standard drink = 0.6 oz pur e alcohol) PHQ-2 Answer Date Recorded PHQ-2 Score 0 05/24/2019 Sex and Gender Information Value Date Recorded Sex Assigned at Not on file 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
--- OUTSIDE RECORDS SUMMARY | 2024-10-01 08:47 | XMS_ITS | Encounter Summary ---
Author Organization [facility] Healthcare Address [address] [place] [address] Care Team Providers Care Director Mobile Media Solutions Name Role Phone Bao Pierre MD Primary Care Provider Reason for Referral * Diagnostic Imaging (Routine) - Closed Specialty Diagnoses / Procedures Referred By Contac t Referred To Contact Diagnoses Pain management Procedures FL Fluoroscopy < 1 Hour (Statistical Only) Eddi Shafer MD Phone: tel: fax: [address] [address] Referral ID Status Reason Start Date Expiration Date Visits Re quested Visits Authorized [id number] Closed 08/05/2019 02/13/2021 1 1 LTY PRINTING MACHINE OPERATOR Reason for Visit * Diagnostic Imaging (Routine) - Closed Specialty Diagnoses / Procedures Referred By Contac t Referred To Contact Diagnoses Pain management Procedures FL Fluoroscopy < 1 Hour (Statistical Only) Eddi Shafer MD Phone: tel: fax: [address] [address] Referral ID Status Reason Start Date Expiration Date Visits Re quested Visits Authorized [id number] Closed 08/05/2019 02/13/2021 1 1 Encounter Details Date Type Department Care Team (Latest Contact Info) Description 08/05/2019 7:30 AM NOVELTY PRINTING MACHINE OPERATOR - 08/05/2019 8:56 AM NOVELTY PRINTING MACHINE OPERATOR Hospital Encounter [facility] ([facility]) [address] [place] [address] Eddi Shafer MD [address] [facility] [phone] [place] [address] Pain management Discharge Disposition: Discharge to home [...] on file Legal Sex Male 9:03 PM NOVELTY PRINTING MACHINE OPERATOR Gender Identity Not on file Sexual Orientation Straight 10/15/2019 10 :34 PM NOVELTY PRINTING MACHINE OPERATOR documented as of this encounter Medications [...] MG ORAL TABLET DELAYED RELEASE 09/13/2013 1 mnnd-jqf-lyb-dayana- qcuj-miyd-dlj (Fiber 6) 1,000 mg tablet FIBER 09/13/2013 [...] Plan Chronic Care Management Worsening( 8:02 AM NOVELTY PRINTING MACHINE OPERATOR) Chika Tracy, RN Note: Problem: Chronic [...] ONLY) Schedule Routine, Read Routine (OP Routine) 08/05/2019 10:45 AM NOVELTY PRINTING MACHINE OPERATOR Pain management documented in this encounter Results * FL Fluoroscopy < 1 Hour (Statistical Only) (08/05/2019 10:45 AM NOVELTY PRINTING MACHINE OPERATOR) Narrative [facility] - 08/05/2019 10:53 AM NOVELTY PRINTING MACHINE OPERATOR The images from this study are not interpreted by Radiology. ??Please refer to the physician's procedure / OR operative note. Eddi Shafer MD IMG FLUOROSCOPY PROCEDURES Fi nal Result [facility] documented in this encounter Visit Diagnoses Diagnosis Pain management documented in this encounter Care Teams Director Mobile Media Solutions Relationship Specialty Start Date End Date Bao Pierre MD [address] [address] PCP - General 12/22/16 documented as of this encounter
--- OUTSIDE RECORDS SUMMARY | 2024-10-01 08:47 | XMS_ITS | Encounter Summary ---
Author Organization [facility] Address [address] [place] [address] Phone Care Team Providers Care Barbering Instructor Name Role Phone Bao Pierre MD Primary Care Provider [phone] Reason for Visit * Reason Onset Date Comments Med Refill 04/23/2019 Encounter Details Date Type Department Care Team (Late st Contact Info) Description 04/23/2019 Telephone [facility] Orthopaedic Surgery [address] [place] [address] Ange Ramires PA [address] 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 * Telephone Encounter - Casie Toro - 05/03/2019 9:13 AM CDT If patient takes one gabapentin after lunch around 1 then at bed time is this to close per Bita patient physician locums urgent care at [phone] * Telephone Encounter - Aristides Christopher CMA - 04/23/2019 9:11 AM CDT Rx refill has been sent. * Telephone Encounter - Konrad Zamorano - 04/23/2019 8:07 AM CDT Pt requesting Gabapentin Rx Send to [facility] on file Pt is at [phone]. documented in this encounter Plan of Treatment Not on file documented as of this encounter Visit Diagnoses Not on filedocumented in this encounter Care Teams Barbering Instructor Relationship Specialty Start Date End Date Bao Pierre MD [address] [address] PCP - General 12/22/16 documented as of this encounter
--- OUTSIDE RECORDS SUMMARY | 2024-10-01 08:47 | XMS_ITS | Encounter Summary ---
Author Organization [facility] Healthcare Address [address] [place] [address] Care Team Providers Care Soaking Room Operator Name Role Phone Bao Pierre MD Primary Care Provider Reason for Visit * Reason Onset Date Comments pre procedure call 08/02/2019 Encounter Details Date Type Department Care Team (Late st Contact Info) Description 08/02/2019 Telephone [facility] [place] [facility] [address] [facility] [address] [place], [place] [id number] Eddi Shafer MD [address] [facility] [address] [facility] [id number] [place], [place] [id number] pre procedure call Social History Tobacco Use Types Packs/Day Years [...] on file Legal Sex Male 9:03 PM OCC THERAPY ASST Gender Identity Not on file Sexual Orientation Straight 10/15/2019 10 :34 PM OCC THERAPY ASST documented as of this encounter Miscellaneous Notes * Telephone Encounter - Alma Hunter RN - 08/02/2019 3:11 PM CDT Called pt and informed him of pre procedure instructions. documented in this encounter Plan of Treatment Not on file documented as of this encounter Goals Goal Patient Goal Type Associated Problems Recent Progress Patient-Stated? Author CCM Chronic Pain Care Plan Chronic Care Management Worsening( 8:02 AM OCC THERAPY ASST) Chika Tracy RN Note: Problem: Chronic Pain Goals: 1. Minimize further functional decline 2. Maximize quality of life 3. Control pain Strategies: - Activity/exercise program recommendation - Conservative stepwise pain medicine strategy with multi-disciplinary approach - Recommend healthy lifestyle strategies and compensatory methods as needed documented as of this encounter Visit Diagnoses Not on filedocumented in this encounter Care Teams Soaking Room Operator Relationship Specialty Start Date End Date Bao Pierre MD [address] [address] PCP - General 12/22/16 documented as of this encounter
--- OUTSIDE RECORDS SUMMARY | 2024-10-01 08:47 | XMS_ITS | Encounter Summary ---
Author Organization [facility] Healthcare Address [address] [place] [address] Care Team Providers Care Incendiaries Supervisor Name Role Phone Bao Pierre MD Primary Care Provider [phone] Reason for Visit * Reason Onset Date Comments Post-op Follow-up 08/06/2019 Encounter Details Date Type Department Care Team (Late st Contact Info) Description 08/06/2019 Telephone [facility] [place] [facility] [address] [facility] [address] [place], [place] [id number] Eddi Shafer MD [address] [facility] [address] [facility] [id number] Post-op Follow-up Social History Tobacco Use Types [...] on file Legal Sex Male 9:03 PM PLANT GUARD Gender Identity Not on file Sexual Orientation Straight 10/15/2019 10 :34 PM PLANT GUARD documented as of this encounter Miscellaneous Notes * Telephone Encounter - Whit Horn RN - 08/07/2019 2:02 PM PLANT GUARD Post Procedure Follow Up Assessment: Did the injection help you? [x] Yes [] No Current Pain Rating? 0 Numbness/Heaviness [] No [] Yes Dizziness or lightheadedness [x] No [] Yes Puncture Site: [x] No tenderness/swelling [] Tenderness without drainage [] Advised to apply heating pad for 20 minutes for puncture sitesoreness. Pain Diary 2 Hour Pain Diary every 15 mins 4 Hour Pain Diary every 30 mins 8 Hour pain Diary every 1 hour 0 2 0 3 0 4 0 0 OtherComments/Concerns: At the 6th hour patient walked down the street past 5 houses, and his pain score was only a 4 whereas before his pain rating would have been much higher walking that far. He said he's presently feeling more pain on the right side of his lower back when he's up walking and doing activities but sitting down, it's always a 0 . T GUARD * Telephone Encounter - Alma Hunter RN - 08/06/2019 9:56 AM PLANT GUARD Date of Procedure:08/25/19 Procedure: LMBB #1 Level(s): Site: []Left [] Right [x] Bilateral [] Midline Pre-Procedure Pain Score: 0/10 Sedation: [x] No Sedation [] Minimal Sedation [] Moderate Sedation IV Site: [x] N/A [] No Redness/Swelling [] Redness/Swelling LM for pt to return call with pain diary results. T GUARD documented in this encounter Plan of Treatment Not on file documented as of this encounter Goals Goal Patient Goal Type Associated Problems Recent Progress Patient-Stated? Author CCM Chronic Pain Care Plan Chronic Care Management Worsening( 8:02 AM PLANT GUARD) No Chika Watters RN Note: Problem: Chronic Pain Goals: 1. Minimize further functional decline 2. Maximize quality of life 3. Control pain Strategies: - Activity/exercise program recommendation - Conservative stepwise pain medicine strategy with multi-disciplinary approach - Recommend healthy lifestyle strategies and compensatory methods as needed documented as of this encounter Visit Diagnoses Not on filedocumented in this encounter Care Teams Incendiaries Supervisor Relationship Specialty Start Date End Date Bao Pierre MD [address] [address] PCP - General 12/22/16 documented as of this encounter
--- OUTSIDE RECORDS SUMMARY | 2024-10-01 08:47 | XMS_ITS | Encounter Summary ---
Author Organization [facility] Healthcare Address [address] [place] [address] Care Team Providers Care Forest Fire Prevention Manager Name Role Phone Bao Pierre MD Primary Care Provider [phone] Reason for Visit * Reason Onset Date Comments Post-Op Call 08/07/2019 Encounter Details Date Type Department Care Team (Late st Contact Info) Description 08/07/2019 Telephone [facility] [place] [facility] [address] [facility] [address] [place], [place] [id number] Eddi Shafer MD [address] [facility] [address] [facility] [id number] [place], [place] [phone] Post-Op Call Social History Tobacco Use Types Packs/Day [...] on file Legal Sex Male 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 ATION CONTROL HEALTH PHYSICIST * Telephone Encounter - Eddi Shafer MD - 08/14/2019 4:32 PM CST Essentially complete relief pain following lumbar medial branch block #1 We should schedule him for repeat lumbar medial branch blocks bilateral L3, L4, L5, S1 as soon as this can be arranged Que Shafer ATION CONTROL HEALTH PHYSICIST * Telephone Encounter - Mia Gaspar RN - 08/07/2019 10:19 AM CST Date of Procedure: Procedure:Lumbar Medial Branch Block #1 Level(s): Site: []Left [] Right [x] Bilateral [] Midline Pre-Procedure Pain Score: 0/10 Sedation: [x] No Sedation [] Minimal Sedation [] Moderate Sedation IV Site: [x] N/A [] No Redness/Swelling [] Redness/Swelling Post Procedure Follow Up Assessment: Did the injection help you? [x] Yes [] No Current Pain Rating? not much pain ; unable to quantify Numbness/Heaviness [x] No [] Yes Dizziness or lightheadedness [x] No [] Yes Puncture Site: [x] No tenderness/swelling [x] Tenderness without drainage [x] Advised to apply heating pad for 20 minutes for puncture sitesoreness. Pain Diary 2 Hour Pain Diary every 15 mins 4 Hour Pain Diary every 30 mins 8 Hour pain Diary every 1 hour 0 2 0 3 0 4* 0 0 OtherComments/Concerns: During the 6th hour, pt walked the distance of [address], [address], and although pain was level 4, it was much better than previous to LMBB. ATION CONTROL HEALTH PHYSICIST documented in this encounter Plan of Treatment Not on file documented as of this encounter Goals Goal Patient Goal Type Associated Problems Recent Progress Patient-Stated? Author CCM Chronic Pain Care Plan Chronic Care Management Worsening( 8:02 AM RADIATION CONTROL HEALTH PHYSICIST) No Chika Watters RN Note: Problem: Chronic Pain Goals: 1. Minimize further functional decline 2. Maximize quality of life 3. Control pain Strategies: - Activity/exercise program recommendation - Conservative stepwise pain medicine strategy with multi-disciplinary approach - Recommend healthy lifestyle strategies and compensatory methods as needed documented as of this encounter Visit Diagnoses Not on filedocumented in this encounter Care Teams Forest Fire Prevention Manager Relationship Specialty Start Date End Date Bao Pierre MD [address] [address] PCP - General 12/22/16 documented as of this encounter
--- OUTSIDE RECORDS SUMMARY | 2024-10-01 08:47 | XMS_ITS | Encounter Summary ---
Author Organization [facility] Healthcare Address [address] [place] [address] Care Team Providers Care Machine Wiper Name Role Phone Bao Pierre MD Primary Care Provider [phone] Reason for Visit * Reason Comments Nausea Back Pain Abdominal Pain Encounter Details Date Type Department Care Team (Late st Contact Info) Description 05/01/2019 10:45 PM CDT - 05/02/2019 3:11 AM CDT Emergency [facility] Emergency Department [address] [place] [address] Nando Reveles MD [address] [place] [address] Ariadne Rock MD [address] [place] [address] Abdominal pain, unspecified abdominal location (Primary Dx); Non-intractable vomiting with nausea, unspecified vomiting type Discharge Disposition: Discharge to home or self care Social History Tobacco Use Types Packs/Day Years Used Date Smoking Tobacco: Former Pipe 2015 Smokeless Tobacco: Never Comments:5-6 times a day Alcohol Use Standard Drinks/Week Comments No 0 (1 standard drink = 0.6 oz pur e alcohol) Sex and Gender Information Value Date Recorded Sex Assigned at Not on file Legal Sex 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 Gender Identity Not on file Sexual Orientation Straight 10/15/2019 10 :34 PM 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 documented as of this encounter Last Filed Vital Signs Vital Sign Reading Time Taken Comments Blood Pressure 138/61 05/02/2019 12:15 AM CDT Pulse 80 05/02/2019 12:15 AM CDT Temperature 36.6 ??C (97.9 ??F) 05/01/2019 10:18 PM C DT Respiratory Rate 20 05/02/2019 12:15 AM CDT Oxygen Saturation 98% 05/02/2019 12:15 AM CDT Inhaled Oxygen Concentration - - Weight 94 kg (207 lb 3.7 oz) 05/01/2019 10:27 PM CDT Height 175.3 cm (5' 9 ) 05/01/2019 10:27 PM CDT Body Mass Index 30.6 05/01/2019 10:27 PM CDT documented in this encounter Discharge Diagnoses Diagnosis Abdominal pain - UNSPECIFIED ABDOMINAL PAIN Abdominal pain, unspecified site Nausea with vomiting - NAUSEA WITH VOMITING, UNSPECIFIED Acquired absence of other specified parts of digestive tract - ACQUIRED ABSENCE OF OTHER SPECIFIED PARTS OF DIGESTIVE TRACT Pure hypercholesterolemia - PURE HYPERCHOLESTEROLEMIA, UNSPECIFIED Personal history of other diseases of the circulatory system - PERSONAL HISTORY OF OTHER DISEASES OF THE CIRCULATORY SYSTEM Spinal stenosis of lumbar region without neurogenic claudication - SPINAL STENOSIS, LUMBAR REGION WITHOUT NEUROGENIC CLAUDICATION Cataract extraction status of left eye - CATARACT EXTRACTION STATUS, LEFT EYE Cataract extraction status of right eye - CATARACT EXTRACTION STATUS, RIGHT EYE Family history of ischemic heart disease and other diseases of the circulatory system - FAMILY HISTORY OF ISCHEMIC HEART DISEASE AND OTHER DISEASES OF THE CIRCULATORY SYSTEM Nicotine dependence, other tobacco product, uncomplicated - NICOTINE DEPENDENCE, OTHER TOBACCO PRODUCT, UNCOMPLICATED documented in this encounter Discharge Instructions * Discharge Instructions* Whit Cristina MD - 05/02/2019 3:01 AM CDT You were seen in the emergency department for nausea and vomiting. Please return to the emergency department if you have chest pain, shortness of breath, or if you are unable to keep down food or fluids, or for any other concerns. Drink plenty of water, especially if you are working outside. Please follow up with your primary doctor by early next week to make sure you are getting better. Your CT scan and bloodwork did not show any abnormalities. documented in this encounter Medications at Time of Discharge alfuzosin ER (UROXATRAL) 10 mg 24 hr [...] ORAL TABLET DELAYED RELEASE 09/13/2013 02/23/20 21 [id number]-ps yl-kelp-pec (Fiber 6) 1,000 mg tablet FIBER [...] muscle spasms. 12 tablet 06/09/2018 08/02/20 19 finasteride (PROSCAR) 5 mg tabletIndications:b [...] 08/02/20 19 documented as of this encounter Ordered Prescriptions Prescription Sig Dispense Quantity Refills Last Filled Start Date End Date ondansetron ODT (ZOFRAN-ODT) 4 mg disintegrating tablet Dissolve 1 tablet for mild to moderate nausea or vomiting or 2 tablets for severe nausea or vomiting oral twice a day as needed. 15 tablet 05/02/2019 9 ondansetron ODT (ZOFRAN-ODT) 4 mg disintegrating tablet Dissolve 1 tablet for mild to moderate nausea or vomiting or 2 tablets for severe nausea or vomiting oral twice a day as needed. 15 tablet 05/02/2019 9 documented in this encounter Discharge Disposition Disposition Code Departure Means Destination Discharge to home or self care documented in this encounter ED Notes * Nando Reveles MD - 05/01/2019 10:58 PM CDT Images from the original note were not included. HPI Chief Complaint Patient presents with ??? Nausea ??? Back Pain ??? Abdominal Pain Frandy Alvares is a 83 y.o. male with a PMH of Hyperlipidemia presenting with nausea vomiting and chills. Patient states he was doing some ER work earlier today when he suddenly experienced some epigastric pain that radiated to the back. Patient states it did not radiate to his shoulder blades. Denies any chest pain or shortness of breath. Patient states that he had nausea and a single episode ofvomiting. The vomiting was nonbilious nonbloody. Patient in triage was noted to not look well and was sent to the [facility]. Upon arrival to [facility] patient appeared well and vitals were appropriate. Patient states he feels much better. Denies any surgical history to the abdomen other than a cholecystectomy. Smoke: Denies Alcohol: Denies Drug: Denies Patient History Patient Active Problem List Diagnosis Date Noted ??? Risk factors for obstructive sleep apnea 05/28/2018 ??? HLD (hyperlipidemia) 05/28/2018 ??? Class 1 obesity in adult 05/28/2018 ??? Primary osteoarthritis of left hip 05/08/2018 Past Medical History: Diagnosis Date ??? Arthritis ??? Eye disease ??? Hypercholesteremia ??? Osteoarthritis ??? Personal history of other diseases of the circulatory system History of hypertension - (Added by [employer]) ??? Personal history of other diseases of the respiratory system History of asthma - (Added by [employer]) ??? Spinal stenosis lumbar Past Surgical History: Procedure Laterality Date ??? BACK SURGERY ??? CARDIAC CATHETERIZATION 2012 ??? CATARACT EXTRACTION, BILATERAL ~2013, 2014 ??? HIP SURGERY Left 05/28/2018 DIMITRIOS ARNETT ??? MOHS SURGERY multiple ??? POSTERIOR LAMINECTOMY / DECOMPRESSION LUMBAR SPINE 2015 ??? CT REMOVAL GALLBLADDER 2017 ??? SHOULDER SURGERY 2012 rotator cuff repair Family History Problem Relation Age of Onset ??? Hypertension Mother Family history of hypertension - (Added by [employer]) ??? Heart disease Mother Family history of cardiac disorder - (Added by [employer]) ??? Arthritis Mother Family history of arthritis - (Added by [employer] Conv) ??? Heart disease Brother Family history of cardiac disorder - (Added by [employer]) ??? Arthritis Sister Family history of arthritis - (Added by [employer]) ??? Cancer Sister Family history of malignant neoplasm - (Added by [employer] Conv) ??? Scoliosis Son Family history of scoliosis - (Added by [employer] Conv) ??? Anesthesia problems Neg Hx Social History Tobacco Use ??? Smoking status: Former Smoker Types: Pipe Start date: 1965 Last attempt to quit: 2016 Years since quittin.5 ??? Smokeless tobacco: Never Used ??? Tobacco comment: 5-6 times a day Substance Use Topics ??? Alcohol use: No ??? Drug use: No Social History Social History Narrative Smoking A Pipe : (Added by [employer]) Current smoker : (Added by [employer] Conv) No alcohol use : (Added by [employer]) : (Added by [employer] Conv) Retired : (Added by [employer]) Review of Systems Constitutional: Positive for diaphoresis. Negative for fatigue. Respiratory: Negative. Cardiovascular: Negative. Gastrointestinal: Positive for abdominal pain, diarrhea, nausea and vomiting. Negative for blood instool and constipation. Genitourinary: Positive for flank pain. Negative for decreased urine volume, difficulty urinating, dysuria, frequency, hematuria, testicular pain and urgency. Musculoskeletal: Positive for back pain. All other systems reviewed and are negative. Review of systems: Denies fevers. All others negative except as mentioned in the HPI Physical Exam ED Triage Vitals [05/01/19 2218] Temp Pulse Resp BP SpO2 36.6 ??C (97.9 ??F) 84 20 123/55 95 % Temp src Heart Rate Source Patient Position BP Location FiO2 (%) Oral -- -- -- -- Physical Exam Constitutional: No acute distress HENT: Head: Normocephalic and atraumatic. Eyes: Conjunctivae are normal. PERRL. No scleral icterus. Cardiovascular: Normal rate and regular rhythm. No murmur heard. Pulmonary: Clear to auscultation b/l. No respiratory distress. Abdominal: Soft, minimal tenderness to palpation of the epigastric, non-distended Musculoskeletal: Normal ROM of extremities. No edema. Neurological: Awake, alert, motor/sensory grossly intact. Skin: Skin is warm and dry. Psychiatric: Behavior is normal. Thought content normal. Nursing note and vitals reviewed. LUCITA Alvares is a 83 y.o. male presenting with abdominal pain. Differential includes pancreatitisversus early gastroenteritis versus enteritis versus low concern for AAA versus very low concern for ACS. Will get basic labs including a CBC BMP troponin EKG chest x-ray. Also will get hepatic function panel and lipase. Will also get CT scan abdomen pelvis. Patient without any pain at this time and is not required pain medication. HEART SCORE HISTORY: Slightly suspicious = 0 EKG: Normal = 0 AGE: 65+ =2 RISK FACTORS: 1-2 = 1 INITIAL TROPONIN: Normal = 0 Total: 3 EKG -1 point: No ST deviation but LBBB, LVH, repolarization changes (e.g. Digoxin) -2 points: ST deviation not due to LBBB, LVH, or digoxin Risk factors: HTN, hypercholesterolemia, DM, obesity (BMI >30 kg/m??), smoking (current, or smoking cessation <=3 mo), positive family history (parent or sibling with CVD before age 65); atherosclerotic disease: prior OK, PCI/CABG, CVA/TIA, or peripheral arterial disease Interpretation: If HEART<4, considered low risk (0.9-1.7% 30-day MACE). If HEART>3, considered high risk (12-65% 30-day MACE). ED Course as of May 03 1059 Time: 05/01 2245 Comment: Attending physician assessment and plan this is a 83-year-old male with a past medical history chronic lumbar spinal stenosis with chronic lumbar radiculopathy controlled with gabapentin, history of left hip replacement among other orthopedic surgeries and history of cholecystectomy, former smoker here with indolent onset of nausea with nonbloody nonbilious emesis followed by diarrhea unclear if it was bloody or not. Pain not in chest or upper back. Reports he feels much better now. Has a benign abdominal exam at this time. VSS. Normal cardiac and pulmonary exams at this time. Ddx; most likely acute gastroenteritis, possible ischemic colitis, diverticulitis, less likely AAA,dissection, UTI, pyelonephritis, RP hemorrhage, acute hepatobiliary disease or pancreatitis, appendicitis, acute on chronic back pain. Plan :IV access, labs, CT abdomen and pelvis, ECG and troponin for atypical ACS, pain control and antiemetics as needed. Nando Reveles MD By: Nando Reveles MD Time: 05/01 0081 Comment: Signout from [facility] 83 yo M hx lumbar spinal stenosis/radiculopathy, HLD p/w chills, nausea, vomiting, back pain. Appears comfortable. Mild epigastric tenderness. Heart score 3, CT A/P pending. By: Whit Cristina MD Time: 05/02 7221 Comment: CT negative, no other concerning findings on workup. Tolerating Po. Plan to discharge withreturn precautions. Patient agrees to follow up with his primary doctor in 3-5 days. By: Whit Cristina MD Abdominal pain, unspecified abdominal location Non-intractable vomiting with nausea, unspecified vomiting type ATTENDING ATTESTATION Laurent Holland MD Resident 05/01/19 1794 I have seen and examined the patient on 05/01/2019. I reviewed the resident's note and agree with the findings and plan of care as documented in the resident's note with modifications as documented inmy note. Nando Reveles MD 05/02/19 0113 Nando Reveles MD 05/03/19 1051 * Hattie Osorio RN - 05/01/2019 10:45 PM CDT Bed: [facility] Expected date: Expected time: Means of arrival: Car Comments: Hattie Osorio RN 05/01/192244 * Lakeisha Vallejo RN - 05/01/2019 10:28 PM CDT Patient presents to ED for upset stomach, middle back pain, n/v and diaphoresis. This happened all of a sudden today this afternoon. Patient states he is normally healthy but felt like he was going to pass out. documented in this encounter Miscellaneous Notes * ED Re-evaluation Note - Whit Cristina MD - 05/01/2019 10:50 PM CDT ED Re-evaluation ED Course as of May 02 448 Time: 05/01 2245 Comment: Attending physician assessment and plan this is a 83-year-old male with a past medical history chronic lumbar spinal stenosis with chronic lumbar radiculopathy controlled with gabapentin, history of left hip replacement among other orthopedic surgeries and history of cholecystectomy, former smoker here with indolent onset of nausea with nonbloody nonbilious emesis followed by diarrhea unclear if it was bloody or not. Pain not in chest or upper back. Reports he feels much better now. Has a benign abdominal exam at this time. VSS. Normal cardiac and pulmonary exams at this time. Ddx; most likely acute gastroenteritis, possible ischemic colitis, diverticulitis, less likely AAA,dissection, UTI, pyelonephritis, RP hemorrhage, acute hepatobiliary disease or pancreatitis, appendicitis, acute on chronic back pain. Plan :IV access, labs, CT abdomen and pelvis, ECG and troponin for atypical ACS, pain control and antiemetics as needed. Nando Reveles MD By: Nando Reveles MD Time: 05/01 2322 Comment: Signout from [facility] 83 yo M hx lumbar spinal stenosis/radiculopathy, HLD p/w chills, nausea, vomiting, back pain. Appears comfortable. Mild epigastric tenderness. Heart score 3, CT A/P pending. By: MD Whit Kwok MD Resident 05/02/19 0448 * ED Triage Provider Note - Patrick Cintron MD - 05/01/2019 10:33 PM CDT Triage Provider Summary: Pt. With upper abdominal pain, gradual onset followed by vomiting after working in the yard earliertoday. Pain moved to his upper back and is now in between his shoulder blades and not like any painhe has experienced before. He appears uncomfortable, but is not diaphoretic and has normal vitals at this time. * ED Procedure Note - Patrick Cintron MD - 05/01/2019 10:28 PM CDTAssociated Order(s): ECG 12 lead Procedure ECG 12 lead Date/Time: 05/01/2019 10:28 PM Performed by: Patrick Cintron MD Authorized by: Patrick Cintron MD Rate: ECG rate: 81 ECG rate assessment: normal Rhythm: Rhythm: sinus rhythm Ectopy: Ectopy: PAC QRS: QRS axis: Normal QRS intervals: Normal Conduction: Conduction: normal ST segments: ST segments: Normal T waves: T waves: normal Q waves: Q waves: III and aVF Previous ECG: Previous ECG: Unavailable Interpretation: Interpretation: non-specific Recommended Follow-up: Recommended follow up: PCP follow-up and further workup in the ED Patrick Cintron MD 05/01/19 560 documented in this encounter Plan of Treatment Not on file documented as of this encounter Procedures Procedure Name Priority Date/Time Associated Diagnosis Comments CT ABDOMEN PELVIS W CONTRAST ED Urgent/IP Urgent 05/02/2019 12:30 AM CDT URINALYSIS AND REFLEX TO MICROSCOPIC STAT 05/02/2019 12:11 AM CDT POCT CREATININE - DEVICE Routine 05/01/2019 11:35 PM CDT XR CHEST PA LATERAL 2 VIEWS ED 05/01/2019 10:59 PM CDT DIFFERENTIAL AUTO STAT 05/01/2019 10: 47 PM CDT CBC WITH AUTO DIFFERENTIAL STAT 05/01/2019 10:47 PM CDT TROPONIN I STAT 05/01/2019 10:47 PM CDT APTT STAT 05/01/2019 10:47 PM CDT PROTIME-INR STAT 05/01/2019 10:47 PM CDT LIPASE STAT 05/01/2019 10:47 PM CDT HEPATIC FUNCTION PANEL STAT 05/01/2019 10:47 PM CDT BASIC METABOLIC PANEL STAT 05/01/2019 10:47 PM CDT ECG 12-LEAD STAT 05/01/2019 10:28 PM CDT documented in this encounter Results * CT Abdomen Pelvis W Contrast (05/02/2019 12:30 AM CDT) Anatomical Region Laterality Modality Body N/A Computed Tomogra phy 05/02/2019 12:4 2 AM CDT Impressions 05/02/2019 10:[address] correlate for abdominal pain Dictated by: Travis Kurtz M.D. , PHD The radiology attending physician has personally reviewed this study, and had reviewed and/or edited this written report and agrees with it. Electronically signed by: Abdulkadir Hunt M.D. Narrative 05/02/2019 10:24 AM CDT EXAMINATION: ??Computed tomography of the abdomen and pelvis with intravenous contrast HISTORY: 83-year-old man with epigastric pain and nausea TECHNIQUE: ??Transaxial computed tomographic images of the abdomen and pelvis ??were obtained with intravenous contrast according to the standard protocol after the uneventful administration of 100 mL Opti-Ray 350 intravenous contrast. COMPARISON: 08/17/2007 FINDINGS: ?? There is mild bibasilar atelectasis. ??No pericardial effusion. ??No pleural effusion. There is a small lipoma above the liver dome. ??No suspicious focal lesion in the liver. ??Portal vein, splenic vein and superior mesenteric vein are patent. ??Spleen, adrenal glands and pancreas appear normal. ??No intra or extrahepatic biliary ductal dilatation. Gallbladder surgically absent. No hydronephrosis. ??There is mild bladder wall hypertrophy which may be due to chronic outlet obstruction. ??There is a left hip arthroplasty. No free intra-abdominal air or fluid. ??Small bowel is of normal course and caliber. ??There is colonic diverticulosis without evidence of diverticulitis. ??Appendix is visualized. There is moderate atherosclerotic disease of abdominal aorta and its major branches. ??No retroperitoneal or pelvic lymphadenopathy by size criteria. ??Bone windows demonstrate multilevel degenerative changes of the spine. ??No suspicious osseous lesion. Procedure Note Abdulkadir Hunt MD - 05/02/2019 EXAMINATION: Computed tomography of the abdomen and pelvis with intravenous contrast HISTORY: 83-year-old man with epigastric pain and nausea TECHNIQUE: Transaxial computed tomographic images of the abdomen and pelvis were obtained with intravenous contrast according to the standard protocol after the uneventful administration of 100 mL Opti-Ray 350 intravenous contrast. COMPARISON: 08/17/2007 FINDINGS: There is mild bibasilar atelectasis. No pericardial effusion. No pleural effusion. There is a small lipoma above the liver dome. No suspicious focal lesion in the liver. Portal vein, splenic vein and superior mesenteric vein are patent. Spleen, adrenal glands and pancreas appear normal. No intra or extrahepatic biliary ductal dilatation. Gallbladder surgically absent. No hydronephrosis. There is mild bladder wall hypertrophy which may be due to chronic outlet obstruction. There is a left hip arthroplasty. No free intra-abdominal air or fluid. Small bowel is of normal course and caliber. There is colonic diverticulosis without evidence of diverticulitis. Appendix is visualized. There is moderate atherosclerotic disease of abdominal aorta and its major branches. No retroperitoneal or pelvic lymphadenopathy by size criteria. Bone windows demonstrate multilevel degenerative changes of the spine. No suspicious osseous lesion. IMPRESSION: No CT correlate for abdominal pain Dictated by: Travis Kurtz M.D. , PHD The radiology attending physician has personally reviewed this study, and had reviewed and/or edited this written report and agrees with it. Electronically signed by: Abdulkadir Hunt M.D. Ariadne Rock MD IMG CT PROCEDURES Final Result * Urinalysis reflex to microscopic (05/02/2019 12:11 AM CDT) Color, ur Yellow Yellow [facility] Clarity, ur Clear Clear [facility] Specific gravity, ur 1.021 1.010 - 1.025 [facility] pH, urine 5 [facility] Protein, ur ql Negative Negative [facility] Glucose, ur ql Negative Negative [facility] Ketones, ur Trace Negative [facility] Bilirubin, ur Negative Negative [facility] Blood, ur Negative Negative [facility] Urobilinogen, ur <2.0 <2.0 mg/dL [facility] Nitrite, ur Negative Negative [facility] Leukocyte esterase, ur Negative Negative [facility] Urine 05/02/2019 12:1 1 AM CDT 05/02/2019 12:24 AM CDT Narrative [facility]DR[facility] - 05/02/2019 12:45 AM CDT THE COLLECTION LOCATION IS [address] Urine pH is affected by diet, medications, systemic acid-base disturbances, and renal tubular function. ??pH may affect urinary stone formation. ??For example, urine pH below 6.0 may help reduce the tendency for calcium phosphate stones and pH greater than 6.0 may reduce the tendency for uric acid stone formation. Source: [facility] [employer]. Last revised 10-12-2017 us Patrick Cintron MD LAB URINE ORDERABLES Final R esult Performing Organization Address City/[facility]/ZIP Co de Phone Number [facility] Department [place] [address] * POCT creatinine (05/01/2019 11:35 PM CDT) Creatinine POC 1.2 0.7 - 1.3 mg/dL [facility] Blood specimen (specimen) 05/01/2019 11:35 PM CDT 05/01/2019 11:35 PM CDT us Notinfile Unknown LAB POCT ORDERABLES - DEVICE F inal Result Performing Organization Address [facility] Co de Phone Number [facility] Department [place] [address] * XR Chest Pa Lateral 2 Vw (05/01/2019 10:59 PM CDT) Anatomical Region Laterality Modality Body, Chest N/A Computed Radiogr aphy 05/01/2019 11:3 0 PM CDT Impressions 05/02/2019 10:21 AM CDT There is no focal confluent opacity to suggest pneumonia. There is mild bibasilar atelectasis. ??No pleural effusion or pneumothorax. ??Cardiomediastinal silhouette is within normal limits. There are multilevel degenerative changes of thoracic spine. ??Note is made of mild height loss of multiple midthoracic vertebral bodies that can represent mild age-indeterminate compression deformities. Dictated by: Charity Gabriel M.D. The radiology attending physician has personally reviewed this study, and had reviewed and/or edited this written report and agrees with it. Electronically signed by: Abdulkadir Hunt M.D. Narrative 05/02/2019 10:21 AM CDT EXAMINATION: 2 view chest radiograph History: Upper back pain. ?? Procedure Note Abdulkadir Hunt MD - 05/02/2019 EXAMINATION: 2 view chest radiograph History: Upper back pain. IMPRESSION: There is no focal confluent opacity to suggest pneumonia. There is mild bibasilar atelectasis. No pleural effusion or pneumothorax. Cardiomediastinal silhouette is within normal limits. There are multilevel degenerative changes of thoracic spine. Note is made of mild height loss of multiple midthoracic vertebral bodies that can represent mild age-indeterminate compression deformities. Dictated by: Charity Gabriel M.D. The radiology attending physician has personally reviewed this study, and had reviewed and/or edited this written report and agrees with it. Electronically signed by: Abdulkadir Hunt M.D. Patrick Cintron MD IMG XR PROCEDURES Final Resu lt * (ABNORMAL) Differential, auto (05/01/2019 10:47 PM CDT) Neutrophil abs 14.5(H) 1.7 - 6.5 K/cumm [facility] Imm gran abs 0.1 0.0 - 0.1 K/cumm [facility] Lymphocyte abs 1.0 0.8 - 3.3 K/cumm [facility] Monocyte abs 1.0(H) 0.2 - 0.8 K/cumm [facility] Eosinophil abs 0.1 0.0 - 0.5 K/cumm [facility] Basophil abs 0.0 0.0 - 0.1 K/cumm [facility] Neutrophil pct 86.6 % [facility] Comment: Interpretive Data Percent cell count reference ranges are not reported, since discordance with absolute values may lead to misinterpretation of CBC data. Current Interpretive Data was last revised on 2018. Imm gran pct 0.6 % [facility] Comment: Interpretive Data Percent cell count reference ranges are not reported, since discordance with absolute values may lead to misinterpretation of CBC data. Current Interpretive Data was last revised on 2018. Lymphocyte pct 6.0 % [facility] Comment: Interpretive Data Percent cell count reference ranges are not reported, since discordance with absolute values may lead to misinterpretation of CBC data. Current Interpretive Data was last revised on 2018. Monocyte pct 5.9 % [facility] Comment: Interpretive Data Percent cell count reference ranges are not reported, since discordance with absolute values may lead to misinterpretation of CBC data. Current Interpretive Data was last revised on 2018. Eosinophil pct 0.7 % [facility] Comment: Interpretive Data Percent cell count reference ranges are not reported, since discordance with absolute values may lead to misinterpretation of CBC data. Current Interpretive Data was last revised on 2018. Basophil pct 0.2 % [facility] Comment: Interpretive Data Percent cell count reference ranges are not reported, since discordance with absolute values may lead to misinterpretation of CBC data. Current Interpretive Data was last revised on 2018. Blood specimen (specimen) 05/01/2019 10:47 PM CDT 05/01/2019 10:57 PM CDT us Patrick Cintron MD LAB BLOOD ORDERABLES Final R esult [facility] Department [place] [address] * Lipase (05/01/2019 10:47 PM CDT) Lipase 53 10 - 99 Units/L [facility] Blood specimen (specimen) 05/01/2019 10:47 PM CDT 05/01/2019 10:57 PM CDT Narrative [facility] - 05/01/2019 11:18 PM CDT THE BJ COLLECTION LOCATION IS Patrick Cintron MD LAB BLOOD ORDERABLES Final R esult [facility] Department [place] [address] * (ABNORMAL) aPTT (05/01/2019 10:47 PM CDT) aPTT 24.3(L) 25.0 - 37.0 sec [facility] Comment: Interpretive Data Therapeutic heparin range:60.0 - 94.0 sec based on correlation with therapeutic heparin activity range of 0.3 -0.7 Units/mL. Current interpretive data was last revised on 2011. Blood specimen (specimen) 05/01/2019 10:47 PM CDT 05/01/2019 10:54 PM CDT Narrative [facility] - 05/01/2019 11:20 PM CDT THE COLLECTION LOCATION IS Patrick Cintron MD LAB BLOOD ORDERABLES Final R esult Performing Organization Address [facility] de Phone Number [facility] [place] [address] * Protime-INR (05/01/2019 10:47 PM CDT) [facility] PT 11.4 8.6 - 13.0 sec [facility] INR 1.05 0.80 - 1.20 [facility] Comment: Interpretive Data Inpatient therapeutic ranges* Atrial fibrillation ?2.0-3.0 INR Venous thrombo-embolism ?2.0-3.0 INR Bioprosthetic heart valve ?* Mechanical heart valve, bileaflet or tilting disk,aortic position ? 2.0-3.0 INR All other,or bileaflet or tilting disk, in mitral position ? 2.5-3.5 INR *See the pharmacy resource directory (PHRED) for an updated copy of the Tool Book at [email or web address] Current Interpretive Data was last revised 2011. Blood specimen (specimen) 05/01/2019 10:47 PM CDT 05/01/2019 10:54 PM CDT Narrative [facility] - 05/01/2019 11:20 PM CDT THE COLLECTION LOCATION IS us Patrick Cintron MD LAB BLOOD ORDERABLES Final R esult Performing Organization Address City/[facility] Co de Phone Number [facility] [place] [address] * Hepatic function panel (05/01/2019 10:47 PM CDT) Bilirubin, total 0.3 0.1 - 1.2 mg/dL [facility] Bilirubin, direct <0.2 0.1 - 0.3 mg/dL [facility] Protein, pl 6.9 6.5 - 8.5 g/dL [facility] Albumin 4.0 3.5 - 5.0 g/dL [facility] Alk phos 48 40 - 130 Units/L [facility] ALT 32 7 - 55 Units/L [facility] AST 27 10 - 50 Units/L [facility] Blood specimen (specimen) 05/01/2019 10:47 PM CDT 05/01/2019 10:57 PM CDT Narrative [facility] - 05/01/2019 11:38 PM CDT THE COLLECTION LOCATION IS us Patrick Cintron MD LAB BLOOD ORDERABLES Final R esult Performing Organization Address City/[facility]/ZIP Co de Phone Number [facility] [place], [place] [id number] * Troponin I (05/01/2019 10:47 PM CDT) Troponin I <0.03 0.00 - 0.03 ng/mL [facility] Comment: Interpretive Data: Normal plasma Troponin I concentrations can reach 1 ng/mL in the first two weeks of life and slowly decrease to adult levels (<0.03 ng/mL) by the age of 3 months. > 3 months ??<0.03 ng/mL > or = 18 years Serial determinations are recommended for the diagnosis of myocardial infarction. ??Temporal rise and fall are consistent with myocardial infarction when at least one value is above the 99th percentile upper reference limit for Troponin assay. References: 1. Clin Chem 2013;59:[id number] 2. Journal of the [place] [employer] 2012;60:1581-98 Current Interpretive Data Last Revised Date: 2018. Blood specimen (specimen) 05/01/2019 10:47 PM CDT 05/01/2019 10:57 PM CDT Narrative [facility] - 05/01/2019 11:42 PM CDT THE COLLECTION LOCATION IS Patrick Cintron MD LAB BLOOD ORDERABLES Final R esult [facility] Department [place] [address] * (ABNORMAL) Basic metabolic panel (05/01/2019 10:47 PM CDT) Sodium 140 135 - 145 mmol/L [facility] Potassium, pl 4.4 3.3 - 4.9 mmol/L [facility] Chloride 104 97 - 110 mmol/L [facility] CO2 24 22 - 32 mmol/L [facility] Anion gap 12 2 - 15 mmol/L [facility] BUN 24 8 - 25 mg/dL [facility] Creatinine 1.32(H) 0.80 - 1.30 mg/dL [facility] Glucose 176 70 - 199 mg/dL [facility] Comment: Interpretive Data Fasting glucose >/= [...] interpretive data was last revised 2017. Calcium 8.9 8.5 - 10.3 mg/dL [facility] Blood specimen (specimen) 05/01/2019 10:47 PM CDT 05/01/2019 10:57 PM CDT Narrative [facility] - 05/01/2019 11:25 PM CDT THE COLLECTION LOCATION IS us Patrick Cintron MD LAB BLOOD ORDERABLES Final R esult [facility] Department [place] [address] * (ABNORMAL) CBC with auto differential (05/01/2019 10:47 PM CDT) WBC 16.7(H) 3.8 - 9.9 K/cumm [facility] Hgb 14.4 13.0 - 17.5 g/dL [facility] Hct 42.2 38.9 - 50.3 % [facility] Plt 143(L) 150 - 400 K/cumm [facility] MPV 11.0 9.1 - 12.3 fL [facility] RBC 4.46 4.30 - 5.80 M/cumm [facility] MCV 94.6 81.3 - 96.4 fL [facility] MCH 32.3 27.1 - 33.3 pg [facility] MCHC 34.1 32.3 - 35.7 g/dL [facility] RDW CV 12.7 11.1 - 14.9 % [facility] RDW SD 44.2 35.7 - 48.1 fL [facility] NRBC abs 0.00 0.00 - 0.01 K/cumm [facility] Blood specimen (specimen) 05/01/2019 10:47 PM CDT 05/01/2019 10:57 PM CDT Narrative [facility] - 05/01/2019 11:03 PM CDT THE BJ COLLECTION LOCATION IS us Patrick Cintron MD LAB BLOOD ORDERABLES Final R esult [facility] Department [place] [address] * ECG 12-LEAD (05/01/2019 10:28 PM CDT) Narrative [facility] - 05/01/2019 10:28 PM CDT Patrick Cintron MD ? 05/01/2019 10:30 PM ECG 12 lead Date/Time: 05/01/2019 10:28 PM Performed by: Patrick Cintron MD Authorized by: Patrick Cintron MD Rate: ??ECG rate: ??81 ??ECG rate assessment: normal ?? Rhythm: ??Rhythm: sinus rhythm ?? Ectopy: ??Ectopy: PAC ?? QRS: ??QRS axis: ??Normal ??QRS intervals: ??Normal Conduction: ??Conduction: normal ?? ST segments: ??ST segments: ??Normal T waves: ??T waves: normal ?? Q waves: ??Q waves: ??III and aVF Previous ECG: ??Previous ECG: ??Unavailable Interpretation: ??Interpretation: non-specific ?? Recommended Follow-up: ??Recommended follow up: PCP follow-up and further workup in the ED ?? Procedure Note Patrick Cintron MD - 05/01/2019 10:28 PM CDT Procedure ECG 12 lead Date/Time: 05/01/2019 10:28 PM Performed by: Patrick Cintron MD Authorized by: Patrick Cintron MD Rate: ECG rate: 81 ECG rate assessment: normal Rhythm: Rhythm: sinus rhythm Ectopy: Ectopy: PAC QRS: QRS axis: Normal QRS intervals: Normal Conduction: Conduction: normal ST segments: ST segments: Normal T waves: T waves: normal Q waves: Q waves: III and aVF Previous ECG: Previous ECG: Unavailable Interpretation: Interpretation: non-specific Recommended Follow-up: Recommended follow up: PCP follow-up and further workup in the ED Patrick Cintron MD 05/01/190 Nando Reveles MD ECG ORDERABLES Final Re sult [facility] documented in this encounter Visit Diagnoses Diagnosis Abdominal pain, unspecified abdominal location- Primary Non-intractable vomiting with nausea, unspecified vomiting type documented in this encounter Administered Medications Inactive Administered Medications - up to 3 most recent administrations Medication Order MAR Action Action Date Dose Rate Site ioversol (OPTIRAY 350) syringe syringe 100 mL 100 mL, intravenous, Once in imaging, contrast, Starting on Reyna 05/02/19 at 0021, For 1 dose Given 05/02/2019 12:27 AM CDT 100 mL documented in this encounter Discontinued Medications Medication Sig Discontinue Reason Start Date End Da te ondansetron ODT (ZOFRAN-ODT) 4 mg disintegrating tablet Dissolve 1 tablet for mild to moderate nausea or vomiting or 2 tablets for severe nausea or vomiting oral twice a day as needed. Reorder 05/02/2019 05/02/2019 documented as of this encounter Active and Recently Administered Medications Times are shown in CDT. PRN Medication Order 04/30/2019 05/01/2019 05/02/2019 ioversol (OPTIRAY 350) syringe syringe 100 mL (COMPLETED) 100 mL, intravenous, Once in imaging, contrast, Starting on Reyna 05/02/19 at 0021, For 1 dose 0027 (Given - Provid er: Alen Nicolas, RT) documented in this encounter Orders Lab Orders Without Results Count Last Ordered D ate First Ordered Date POCT CREATININE - DEVICE 1 05/01/2019 IV Count Last Ordered Date First Orde red Date INSERT PERIPHERAL IV 1 05/01/2019 documented in this encounter Care Teams Machine Wiper Relationship Specialty Start Date End Date Bao Pierre MD [address] [address] PCP - General 12/22/16 documented as of this encounter
--- OUTSIDE RECORDS SUMMARY | 2024-10-01 08:47 | XMS_ITS | Encounter Summary ---
Author Organization [facility] Healthcare Address [address] [place] [address] Care Team Providers Care Resident Programs Assistant Name Role Phone Bao Pierre MD Primary Care Provider [phone] Reason for Visit * Reason Comments Elbow Pain right elbow swelling x1 week Encounter Details Date Type Department Care Team (Late st Contact Info) Description 05/27/2019 10:09 AM CDT - 05/27/2019 10:47 AM CDT Emergency [facility] Emergency Department [address] [place] [address] Cassidy Miller MD [address] [place], [place] [address] [place] [address] Effusion of bursa of elbow, right (Primary Dx) Discharge Disposition: Discharge to home or self [...] on file 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 Gender Identity Not on file Sexual Orientation Straight 10/15/2019 10 :34 PM MODEL MAKER documented as of this encounter Last Filed Vital Signs Vital Sign Reading Time Taken Comments Blood Pressure 157/74 05/27/2019 10:08 AM CDT Pulse 74 05/27/2019 10:08 AM CDT Temperature 36.8 ??C (98.2 ??F) 05/27/2019 10:08 AM C DT Respiratory Rate 20 05/27/2019 10:08 AM CDT Oxygen Saturation - - Inhaled Oxygen Concentration - - Weight 94 kg (207 lb 3.7 oz) 05/27/2019 10:08 AM CDT Height 175.3 cm (5' 9 ) 05/27/2019 10:08 AM CDT Body Mass Index 30.6 05/27/2019 10:08 AM CDT documented in this encounter Discharge Diagnoses Diagnosis Effusion of right elbow - EFFUSION, RIGHT ELBOW Osteoarthritis - UNSPECIFIED OSTEOARTHRITIS, UNSPECIFIED SITE Osteoarthrosis, unspecified whether generalized or localized, unspecified site Pure hypercholesterolemia - PURE HYPERCHOLESTEROLEMIA, UNSPECIFIED Personal history of nicotine dependence - PERSONAL HISTORY OF NICOTINE DEPENDENCE 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 May remove for bathing. Continue all medication for pain as directed. Follow-up with your primary care or referral physician in 1-2 days. Return to the emergency room if symptoms worsen * Attachments The following attachments cannot be sent through Care Everywhere. * Swollen Joint (AfterCare(R) Instructions(ER/ED)) (Nigerien) documented in this encounter Medications at Time [...] ORAL TABLET DELAYED RELEASE 09/13/2013 02/23/20 21 [id number]-ps yl-kelp-pec (Fiber 6) 1,000 mg tablet FIBER [...] documented in this encounter ED Notes * Shannon Lubin PA - 05/27/2019 10:28 AM CDT HPI 83 yo male complains of STS without redness for 1 week. Pt states he has been seen by Urgent care and given Bactrim for 7 days and the symptoms of redness and swelling have improved but has not completely resolved. Pt states he has a couple of days treatment remaining but wanted to be checked out and symptoms have not resolved. Pt denies fever, vomiting or diarrhea. Chief Complaint Patient presents with ??? Elbow Pain right elbow swelling x1 week HPI Patient History Patient Active Problem List Diagnosis Date Noted ??? Neoplasm of uncertain behavior of skin 02/22/2019 ??? 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 Risk factors for obstructive sleep apnea 05/28/2018 ??? HLD (hyperlipidemia) 05/28/2018 ??? Class 1 obesity in adult 05/28/2018 ??? Primary osteoarthritis of left hip 05/08/2018 ??? Degeneration of lumbar or lumbosacral intervertebral disc 01/28/2018 ??? Primary osteoarthritis of left hip 01/28/2018 ??? Sciatica of left side 01/09/2018 ??? Disorder of rotator cuff 01/05/2017 ??? Other seborrheic keratosis 04/29/2016 ??? 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 Spinal stenosis 02/20/2015 ??? Herniated lumbar intervertebral disc 01/17/2015 ??? Osteoarthritis of lumbar spine 01/17/2015 ??? Arthralgia of hip 01/12/2015 ??? History of SCC (squamous cell carcinoma) of skin 01/13/2014 ??? Arthritis 09/09/2011 ??? Hypertension 09/09/2011 ??? Sprain of rotator cuff capsule 07/28/2010 Past Medical History: Diagnosis Date ??? Arthritis [...] LAMINECTOMY / DECOMPRESSION LUMBAR SPINE 2015 ??? ME REMOVAL GALLBLADDER 2017 ??? SHOULDER SURGERY 2012 [...] Last attempt to quit: 2016 Years since quittin.6 ??? Smokeless tobacco: Never [...] (Added by TW Conv) Review of Systems Review of Systems Constitutional: Negative for chills and fever. HENT: Negative for ear pain and sore throat. Eyes: Negative for pain and visual disturbance. Respiratory: Negative for cough and shortness of breath. Cardiovascular: Negative for chest pain and palpitations. Gastrointestinal: Negative for abdominal pain and vomiting. Genitourinary: Negative for dysuria and hematuria. Musculoskeletal: Negative for arthralgias and back pain. Skin: Positive for wound. Negative for color change and rash. Neurological: Negative for seizures and syncope. All other systems reviewed and are negative. Physical Exam ED Triage Vitals [05/27/19 1008] Temp Pulse Resp BP SpO2 36.8 ??C (98.2 ??F) 74 20 157/74 -- Temp src Heart Rate Source Patient Position BP Location FiO2 (%) Oral Monitor;Pulse Oximetry Sitting Left arm -- Physical Exam Constitutional: He is oriented to person, place, and time. He appears well- developed and well-nourished. HENT: Head: Normocephalic and atraumatic. Eyes: Conjunctivae are normal. Neck: Neck supple. Cardiovascular: Normal rate, regular rhythm and normal heart sounds. No murmur heard. Pulmonary/Chest: Effort normal and breath sounds normal. No respiratory distress. Abdominal: Soft. There is no tenderness. Musculoskeletal: He exhibits no edema. Neurological: He is alert and oriented to person, place, and time. Skin: Skin is warm and dry. Right elbow with STS without erythema, abrasion or laceration. No pain on palpation or ROM. Positive pulses distally, sensation intact throughout. Psychiatric: He has a normal mood and affect. Nursing note and vitals reviewed. MDM MDM Effusion of bursa of elbow, right SANDIP Brewster 05/27/19 1038 Cosigned by Cassidy Miller MD at 05/27/2019 5:52 PM CDT documented in this encounter Plan of Treatment Not on file documented as of this encounter Visit Diagnoses Diagnosis Effusion of bursa of elbow, right- Primary documented in this encounter Orders Nursing Count Last Ordered Date First Orde red Date APPLY CAROLA WRAP 1 05/27/2019 documented in this encounter Care Teams Resident Programs Assistant Relationship Specialty Start Date End Date Bao Pierre MD [address] [facility] [address] [place] [address] PCP - General 12/22/16 documented as of this encounter
--- OUTSIDE RECORDS SUMMARY | 2024-10-01 08:47 | XMS_ITS | Encounter Summary ---
Author Organization [facility] Address [address] [place] [address] Phone Care Team Providers Care Rod Mill Operator Name Role Phone Bao Pierre MD Primary Care Provider [phone] Encounter Details Date Type Department Care Team (Late st Contact Info) Description 06/14/2019 Orders Only [facility] Orthopaedic Surgery [address] [facility] Advanced Medicine [address] [place] [address] [place] [address] Hilary Liang MD [address] [place] [address] Social History Tobacco Use Types Packs/Day Years Used Date Smoking Tobacco: Former Pipe 2015 Smokeless Tobacco: Never Comments:5-6 times a day Alcohol Use Standard Drinks/Week Comments No 0 (1 standard drink = 0.6 oz pur e alcohol) PHQ-2 Answer Date Recorded PHQ-2 Score 0 05/24/2019 Sex and Gender Information Value Date Recorded Sex Assigned at Not on file 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
--- OUTSIDE RECORDS SUMMARY | 2024-10-01 08:47 | XMS_ITS | Encounter Summary ---
Author Organization [facility] [employer] [facility] Address [address] [place] [address] Phone Care Team Providers Care Ballet [employer] Artistic Director Name Role Phone Bao Pierre MD Primary Care Provider [phone] Reason for Visit * Reason Comments Pain Encounter Details Date Type Department Care Team (Late st Contact Info) Description 04/26/2019 10:30 AM CDT Office Visit [facility] Orthopaedic Surgery [address] [facility] Advanced Medicine 12th [place] [address] [place] [phone] Ange Ramires PA [address] [place] [address] Chronic 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 Social History Tobacco Use Types Packs/Day Years Used Date Smoking Tobacco: Former Pipe 1 966 - 2015 Smokeless Tobacco: Never Comments:5-6 times a day Alcohol Use Standard Drinks/Week Comments No 0 (1 standard drink = 0.6 oz pur e alcohol) Sex and Gender Information Value Date Recorded Sex Assigned at Not on file 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 male. CHIEF COMPLAINT Lower back pain HISTORY OF PRESENT ILLNESS: Patient is an 83-year-old male who presents for return evaluation of lower back pain. He was last seen 6 weeks ago. Patient was sent for PT and given Rx for gabapentin 300mg Qhs. He just finished PT and states he is not sure if it was helpful. He is taking the gabapentin 300mg Qhs and does not feelit has made much of a difference. He is tolerating it well without much side effect. Pain continuesmostly unchanged. He describes a very specific and intermittent aching pain across the lumbosacral region without radiation. Pain is only present with standing and walking. He has immediate relief with sitting and resting. He states that he is able to work out in his yd as long as he can sit on a stool. He is able to get through the grocery store as long as he is able to lean forward on a grocerycart. He states that he used to take our long walks with his dogs, but is no longer able to do thisdue to the severe pain in the lower back upon approximately 10 minutes of walking. MEDICAL/SURGICAL/FAMILY/SOCIAL HISTORY-unchanged REVIEW OF SYSTEMS - Constitutional: negative for fever, chills, night sweats; Urinary: negative forurinary retention or incontinence; GI: negative for bowel incontinence PHYSICAL EXAM: Alert, oriented and cooperative. Mood and affect appropriate. Gait without deviation. Skin warm and dry. Standing posture erect without forward leaning or hyperlordosis. Respirations even unlabored. No cyanosis, clubbing or edema. Lumbar range of motion within normal range and nonpainful in all planes. Sit slump negative bilaterally. Reflexes 2+ bilateral patella and 2+ Achilles. Manual muscle testing to bilateral hip flexors, knee extension/flexion, ankle dorsiflexion and EHL is5/5. Palpation to the lumbar spinous processes are nontender throughout and paraspinal muscles are nontender throughout. PSIS palpation reveals no tenderness. Hip range of motion within normal range and nonpainful bilaterally. Negative bilateral log roll. Negative bilateral Karol's testing. Sensation to light touch grossly normal to the lower extremities. Negative clonus. IMAGING: No new films today. ASSESSMENT: Lower back pain in the setting of severe central canal stenosis at L3-4 and L4-5 TREATMENT PLAN: Patient is an 83-year-old male who presents for return evaluation of lower back pain. He has completed therapy, but did not have much relief of pain. He has been taking gabapentin at bedtime, but also does not have much relief of pain nor does he have much in the way of side effects. We discussed treatment options to include increasing gabapentin versus trying an injection. Patient states he usedto receive injections with Dr. Shafer in pain management. After review of past records with Dr. Shafer, it appears patient had several epidural steroid injections. He also had vasovagal reactions whichrequired administration of medication during the procedure. Epidural steroid injections may not provide much relief for axial low back pain, despite this pain being consistent with neurogenic claudication. It is not clear that facet joint injections would be particularly helpful either as he does not have pain with facet loading today. He is hesitant to proceed with any injection anyway. Should we ever decide to proceed with injection, I will discuss with an attending the best option for steroid injection for this patient. In the meantime, patient is interested in the option of increasing hisgabapentin to a daytime dose along with the nighttime dose. He will call us in 4 weeks with an update on b.i.d. Dosing of gabapentin 300 mg. He will continue home exercise program. Findings and plan r eviewed, questions answered, and the patient is in agreement. FOLLOW UP: over the phone in 4 weeks AUBREY Cordova PA-C [facility] Orthopedics Collaborative practice with Dr. Konrad Lange and Dr. Cathy Larsen documented in this encounter Plan of Treatment Not on file documented as of this encounter Visit Diagnoses Diagnosis Chronic 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 documented in this encounter Discontinued Medications Medication Sig Discontinue Reason Start Date End Da te gabapentin (NEURONTIN) 300 mg capsuleIndications:Chronic 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 1 tab QHS Reorder 04/23/2019 0 04/26/2019 documented as of this encounter Care Teams Bal[employer] Company Artistic Director Relationship Specialty Start Date End Date Bao Pierre MD [address] [address] PCP - General 12/22/16 documented as of this encounter
--- OUTSIDE RECORDS SUMMARY | 2024-10-01 08:47 | XMS_ITS | Encounter Summary ---
Author Organization [facility] Healthcare Address [address] [place] [address] Care Team Providers Care Location And Measurement Technician Name Role Phone Geoff Pierre MD Primary Care Provider [phone] Reason for Referral * Diagnostic Imaging (Routine) - Closed Specialty Diagnoses / Procedures Referred By Contac t Referred To Contact Diagnoses Other persistent atrial fibrillation (HCC) Procedures 48 HR Holter Monitor Geoff Pierre MD [address] [employer] [address] [place] [address] Phone: tel: fax: [address] [address] Referral ID Status Reason Start Date Expiration Date Visits Re quested Visits Authorized [id number] Closed 08/09/2019 02/17/2021 1 1 RONMENTAL SERVICE AIDE Encounter Details Date Type Department Care Team (Late st Contact Info) Description 08/09/2019 Orders Only Internal Medicine Geoff Pierre MD [address] [employer] 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 Author CCM Chronic Pain Care Plan Chronic Care Management Worsening( 8:02 AM ENVIRONMENTAL SERVICE AIDE) No Chika Watters, RN Note: Problem: Chronic Pain Goals: 1. Minimize further functional decline 2. Maximize quality of life 3. Control pain Strategies: - Activity/exercise program recommendation - Conservative stepwise pain medicine strategy with multi-disciplinary approach - Recommend healthy lifestyle strategies and compensatory methods as needed documented as of this encounter Results * 48 HR Holter Monitor (08/19/2019 11:20 AM ENVIRONMENTAL SERVICE AIDE) Anatomical Region Laterality Modality Electrocardiogra phy 08/19/2019 11:0 0 AM ENVIRONMENTAL SERVICE AIDE Narrative 08/23/2019 3:52 PM ENVIRONMENTAL SERVICE AIDE Patient name: Frandy Alvares Date of test: 08/19/2019 Type of Test: 48 Hr. Holter Monitoring [facility] #: [id number] ?Location: [facility] : 1935 ??Age: 84 ??Sex: M Ref Physician(s): GEOFF PIERRE MD Interpreted by: Nika Rubio MD Hook-Up Tech: Margret Ramirez Hook-up Tech: HL7 Transfer Scan Tech: Margret Ramirez Reason for Test: Atrial Fibrillation Monitor Connected: 08/19/2019 at 10:58 Monitor Serial#: [id number] Case#: [id number] Instructed in use of Diary by: Margret Ramirez Blogvio comments: taya. will mail back Date Monitor Returned: 08/22/2019 Quality of Tracing: Good Monitoring Time: 44:06 Artifact Time: 03:54 Patient has Pacemaker?: No Conclusion: ??1st degree AVB observed throughout report Ectopic [place] Summary Supraventricular: ??3.49% of the total beats analyzed in the recording period Ventricular: 1.56% of the total beats analyzed in the recording period STATISTICS: Total QRS: 153329 Normal Beats: 813798 Spraventricular Beats: 5153 Min. HR: 36 ?? [...] 3000 milliseconds. ?? SUPRAVENTRICULAR SUMMARY: There were 538912 total beats analyzed. There were 5153 total [...] 8:10:33 PM. ?? VENTRICULAR SUMMARY: There were 336895 total beats analyzed. There were 2308 total [...] Type of Test: 48 Hr. Holter Monitoring Hospital #: [id number] Location: [facility] : 1935 Age: 84 Sex: M Ref Physician(s): GEOFF PIERRE MD Interpreted by: Nika Rubio MD ROX Medical-Up Tech: Margretstephenie Ramirez [employer]OX Medical-up Tech: HL7 Transfer Scan Tech: Margret Ramirez Reason for Test: Atrial Fibrillation Monitor Connected: 08/19/2019 at 10:58 Monitor Serial#: [id number] Case#: [id number] Instructed in use of Diary by: Margret IPWireless comments: p. will mail back Date Monitor Returned: 08/22/2019 Quality of Tracing: Good Monitoring Time: 44:06 Artifact Time: 03:54 Patient has Pacemaker?: No Conclusion: 1st degree AVB observed throughout report Ectopic [place] Summary Supraventricular: 3.49% of the total beats analyzed in the recording period Ventricular: 1.56% of the total beats analyzed in the recording period STATISTICS: Total QRS: 452037 Normal Beats: 336173 Spraventricular Beats: 5153 Min. HR: 36 Max. [...] than 3000 milliseconds. SUPRAVENTRICULAR SUMMARY: There were 793827 total beats analyzed. There were 5153 total [...] at 8:10:33 PM. VENTRICULAR SUMMARY: There were 937854 total beats analyzed. There were 2308 total [...] Visit Diagnoses Diagnosis Other persistent atrial fibrillation (HCC)- Primary Atrial fibrillation, unspecified type (HCC) Other persistent atrial fibrillation (HCC) documented in this encounter Care Teams Location And Measurement Technician Relationship Specialty Start Date End Date Geoff Pierre MD [address] [address] PCP - General 12/22/16 documented as of this encounter
--- OUTSIDE RECORDS SUMMARY | 2024-10-01 08:47 | XMS_ITS | Encounter Summary ---
Author Organization [facility] [employer] [facility] Address [address] [place] [address] Phone Care Team Providers Care Supervisor Framing Mill Name Role Phone Bao Pierre MD Primary Care Provider [phone] Encounter Details Date Type Department Care Team (Late st Contact Info) Description 04/23/2019 Orders Only 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 Gender Identity Not on file Sexual Orientation Straight 10/15/2019 10 :34 PM MEDICAL SALES CONSULTANT documented as of this encounter Ordered Prescriptions Prescription Sig Dispense Quantity Refills Last Filled Start Date End Date gabapentin (NEURONTIN) 300 mg capsuleIndications: Chronic 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 1 tab QHS 30 capsule 11 04/23/2019 04/26/2019 documented in this encounter Plan of Treatment Not on file documented as of this encounter Visit Diagnoses Diagnosis Chronic 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 documented in this encounter Discontinued Medications Medication Sig Discontinue Reason Start Date End Da te gabapentin (NEURONTIN) 300 mg capsuleIndications:Chronic 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 1 tab QHS Reorder 03/18/2019 0 04/23/2019 documented as of this encounter Care Teams Supervisor Framing Mill Relationship Specialty Start Date End Date Bao Pierre MD [address] [address] PCP - General 12/22/16 documented as of this encounter
--- OUTSIDE RECORDS SUMMARY | 2024-10-01 08:47 | XMS_ITS | Encounter Summary ---
Author Organization [facility] Facility Care Team Providers Care Hard Metals Hand Engraver Name Role Phone Bao Pierre MD Primary Care Provider [phone] Encounter Details Date Type Department Care Team (Latest Contact Info) Description 05/01/2019 Travel Social History Tobacco Use Types Packs/Day Years Used Date Smoking Tobacco: Former Pipe 1 2015 Smokeless Tobacco: Never Comments:5-6 times a day Alcohol Use Standard Drinks/Week Comments No 0 (1 standard drink = 0.6 oz pur e alcohol) Sex and Gender Information Value Date Recorded Sex Assigned at Not on file Legal Sex Male 9:03 PM HEADING MAKER Gender Identity Not on file Sexual Orientation Straight 10/15/2019 10 :34 PM HEADING MAKER documented as of this encounter Plan of Treatment Not on file documented as of this encounter Visit Diagnoses Not on filedocumented in this encounter Care Teams Hard Metals Hand Engraver Relationship Specialty Start Date End Date Bao Pierre MD [address] [facility] [address], [place] [address] PCP - General 12/22/16 documented as of this encounter
--- OUTSIDE RECORDS SUMMARY | 2024-10-01 08:47 | XMS_ITS | Encounter Summary ---
Author Organization [facility] Address [address] [place] [address] Phone Care Team Providers Care Client Services Director Name Role Phone Bao Pierre MD Primary Care Provider [phone] Reason for Visit * Reason Comments Follow-up Encounter Details Date Type Department Care Team (Late st Contact Info) Description 06/24/2019 10:15 AM CDT Office Visit [facility] Orthopaedic Surgery [address] [facility] Advanced Medicine 12th [place] [address] [place] [address] Hilary Liang MD [address] [place] [address] Presence of artificial hip joint, left (Primary Dx) Social History Tobacco Use [...] on file Legal Sex Male 9:03 PM 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 He is doing well. He reports that hiswalking is limited due to arthritis in his back, but his hip is doing well. EXAM: Awake, alert, oriented x 3 No acute distress Breathing regular and unlabored Walks without limp Incision healed Left hip ROM 0-90 RADIOGRAPHS: Radiographs obtained today demonstrate a well-fixed cementless left total hip arthroplasty IMPRESSION: One year status post above procedure, doing well PLAN: He may continue activities as tolerated. He is reminded about dental prophylaxis. He will return atthe five year anniversary of surgery, with x-rays, or sooner, if there are problems. Hilary Liang M.D. Mobile Mechanic, Orthopaedic Surgery documented in this encounter Plan of Treatment Not on file documented as of this encounter Visit Diagnoses Diagnosis Presence of artificial hip joint, left- Primary documented in this encounter Historical Medications * This list may reflect changes made after this encounter. glucosamine-chond roitin 500-400 mg tablet Take 1 tablet by mouth daily dextrin (FIBER, DEXTRIN,) 3 gram/3.5 gram powder Take 1 capsule by mouth 2 times daily 08/02/2019 added in this encounter Care Teams Client Services Director Relationship Specialty Start Date End Date Bao Pierre MD [address] [address] PCP - General 12/22/16 documented as of this encounter
--- OUTSIDE RECORDS SUMMARY | 2024-10-01 08:47 | XMS_ITS | Encounter Summary ---
Author Organization [facility] Healthcare Address [address] [place] [address] Care Team Providers Care Development System Efficiency Manager Name Role Phone Bao Pierre MD Primary Care Provider [phone] Reason for Visit * Reason Comments Back Pain Shoulder Pain s/p rotator cuff rep air Encounter Details Date Type Department Care Team (Latest Contact Info) Description 08/02/2019 9:20 AM CDT - 08/02/2019 9:26 AM CDT Hospital Encounter [facility] [place] [facility] [address] [facility] [address] [place] [address] Eddi Shafer MD [address] [facility] [address] [facility] [phone] [place] [address] Spondylosis of lumbar region without myelopathy or radiculopathy (Primary Dx); Low back pain, unspecified back pain laterality, unspecified chronicity, unspecified whether sciatica present; Spinal stenosis of lumbar region without neurogenic [...] on file Legal Sex Male 9:03 PM SANITATION ASSOCIATE Gender Identity Not on file Sexual Orientation Straight 10/15/2019 10 :34 PM SANITATION ASSOCIATE documented as of this encounter Last Filed Vital Signs Vital Sign Reading Time Taken Comments Blood Pressure 109/59 08/02/2019 9:33 AM CDT Pulse 74 08/02/2019 9:33 AM CDT Temperature 37.1 ??C (98.7 ??F) 08/02/2019 9:33 AM CD T Respiratory Rate 14 08/02/2019 9:33 AM CDT Oxygen Saturation - - Inhaled Oxygen Concentration - - Weight 94.6 kg (208 lb 8 oz) 08/02/2019 9:33 AM CDT Height 175.3 cm (5' 9 ) 08/02/2019 9:33 AM CDT Body Mass Index 30.79 08/02/2019 9:33 AM CDT documented in this encounter Discharge Instructions * Patient Instructions* Mikaela Quinonez RN - 08/02/2019 9:30 AM CDT [facility] DISCHARGE INSTRUCTIONS MEDICATIONS: [x] Continue your current home medications Start: [x] Notify your pharmacy for refill(s) 7 days before you are out of your medication. [] Opioid (Narcotic) Agreement signed and patient received copy. [] Side Effects of Opioid Medications given to patient Resume blood thinner: On Discontinue: PROCEDURE at today's visit: DIET: [x] Resume normal diet [] See [facility] Post Discharge Procedure Information Sheet ACTIVITY: [x] Resume normal activity [] See [facility] Post Discharge Procedure Information Sheet REFERRALS: Physical Therapy [] [facility] ([phone]) [] [facility]) [] [facility] ([phone]) [] [facility]) [] Other: Behavior Medicine [] Pain Psychologist, [facility] Please call to schedule appointment [phone] or [phone] Diagnostic Test(s): EDUCATION provided on the following: [] Spinal Cord Stimulator Education and DVD. Vendor: FOLLOW UP APPOINTMENTS: [] Return as needed [x] Follow up appointment: Next available We will contact you the next business day to obtain: [] An update on your condition [] Your Pain diary scores [x] Procedure at your next visit : Bilateral Lumbar Medial Branch Blocks, L3, L4, L5 and S1 INSTRUCTIONS before your next procedure: [x] See [facility] Pre-Procedure Information Sheet [] Do not eat or drink for six (6) hours before the time/date of the procedure. [] Inquire with your prescribing provider if ok to hold blood thinner for days before procedure. [] Blood work required 2 hours before procedure: [x] Horticultural Specialty Grower needed for next procedure Patient provided information and repeated back with understanding. If you need to reach us: For any questions about your procedure, please call the Pain Management Center [phone] (M-F) (8am-4pm) If you need urgent attention after 5 pm and weekends: Call the [facility] Market Investigator at [phone] and ask for the Pain Service doctor enterprise integration architect. documented in this encounter Medications at Time [...] MG ORAL TABLET DELAYED RELEASE 09/13/2013 1 [id number] (Fiber 6) 1,000 mg tablet FIBER 09/13/2013 [...] documented in this encounter Progress Notes * Long Escobedo MD - 08/02/2019 9:26 AM CDT Patient Name: Frandy Alvares : 1935 Today's Date: 08/02/2019 PCP: Bao Pierre MD Chief Complaint Patient presents with ??? Back Pain ??? Shoulder Pain s/p rotator cuff repair Pain Management History Mr. FRANDY ALVARES was initially seen in the Pain Ctr., September 09 [address] Florentin Alva for left lower back pain. Mr Alvares has long of history of [...] L4-[address] spinal decompression with Dr. Chance Radiographic images personally reviewed today L-spine radiographs [facility] 01/09/18 - Prior lumbar laminectomy L3, L4 - lumbar spondylosis - rotary dextroscoliosis lumbar spine; facet arthropathy mid and lower lumbar spine severe R>L - lumbar disc degeneration - severe T12-L5 Left Hip radiographs [facility] 01/09/18 : - hip osteoarthritis, left - moderate, progressive compared with prior hip radiograph 09/20/11 Pain Management Summary - Other Chronic pain - hip pain, left - hip osteoarthritis, left - moderate, progressive compared with prior hip radiograph 09/20/11 - Left Hip radiographs [facility] 01/09/18 - Lumbago with left sciatica - Post lumbar laminectomy syndrome - Dr. Chance L3-4, L4-5 laminectomy/decompression 07/22/17 - lumbar spinal canal stenosis - severe L1-2 with effacement of spinal fluid; moderate L2-3, there is no spinal canal stenosis L3-4, L4-5, L5-S1 - Lumbar spine MRI 5/15/19 - lumbar spondylosis - mild dextroscoliosis apex L3; slight retrolisthesis L2-3 - lumbar disc degeneration moderate, diffuse L1-2, L2-3, L3-4, L4-5 - Med ills: HTN, BPH Pain Procedure Summary: 11/07/12 Lumbar transforaminal [...] vagal reaction 01/16/18 hip joint injection - left Today's Visit 08/02/2019 Frandy Alvares returns to the Pain Management Center for follow-up regarding ongoing low back pain. Notes worsening back pain after walking or standing for about 15 minutes, and it improves with sitting down or leaning on a shopping cart. Denies any radiation of the pain. No numbness or urinary/bowel incontinence. The pain is isolated to mid thoracic to lumbosacral region. Worst Pain: Low back Pain intensity: worst pain in last week - 8 /10; least pain - 2; current pain - 4/10 Radiation of pain: none Associated signs/symptoms: none Injection therapies: LESIs in the past - modest benefit Exercise programs: Has tried PT in the past for hip and low back pain Psychological /Behavioral therapy: none Radiographic imaging personally reviewed today: Lumbar spine MRI 02/13/19 - prior lumbar laminectomy L3, L4, L5 - lumbar spondylosis - mild dextroscoliosis apex L3; slight retrolisthesis L2-3 - lumbar disc degeneration moderate, diffuse L1-2, L2-3, L3-4, L4-5 - lumbar spinal canal stenosis - severe L1-2 with effacement of spinal fluid; moderate L2-3, there is no spinal canal stenosis L3-4, L4-5, L5-S1 Pelvis, left hip radiographs [facility] 06/24/19 - left total hip arthroplasty in near-anatomic alignment - hip osteoarthritis, right - mild Past Medical Histoy Allergies Allergen Reactions ??? Epinephrine Syncope and Dizziness Current Outpatient Medications on File Prior to Encounter Medication Sig Dispense Refill ??? alfuzosin ER (UROXATRAL) 10 mg 24 hr tablet Take 10 mg by mouth daily. ??? finasteride (PROSCAR) 5 mg tablet Take 5 mg by mouth daily. ??? glucosamine-chondroitin 500-400 mg tablet Take 1 tablet by mouth daily ??? inulin (FIBER GUMMIES) 2 gram tablet,chewable Take 1 tablet by mouth 2 (two) times a day. ??? lovastatin (MEVACOR) 20 mg tablet Take 20 mg by mouth daily. 12 ??? [DISCONTINUED] amoxicillin (AMOXIL) 500 mg tablet/capsule Take 4 tablet/capsule (2,000 mg total) by mouth as needed (1 HR PRIOR TO DENTAL PROCEDURE). 8 tablet/capsule 0 ??? [DISCONTINUED] aspirin 325 mg EC tablet Take 1 tablet (325 mg total) by mouth 2 (two) times a day. 84 tablet 0 ??? [DISCONTINUED] celecoxib (CeleBREX) 100 mg capsule TAKE 2 PILLS WITH BREAKFAST THE DAY BEFORE SX. TAKE 1 PILL BID AFTER DISCHARGE. 10 capsule 0 ??? [DISCONTINUED] cyclobenzaprine (FLEXERIL) 10 mg tablet Take 0.5 tablets (5 mg total) by mouth every 8 (eight) hours as needed for muscle spasms. 12 tablet 0 ??? [DISCONTINUED] dextrin (FIBER, DEXTRIN,) 3 gram/3.5 gram powder Take 1 capsule by mouth 2 timesdaily ??? [DISCONTINUED] gabapentin (NEURONTIN) 300 mg capsule 1 tab BID 60 capsule 3 ??? [DISCONTINUED] HYDROcodone-acetaminophen (NORCO) 5-325 mg per tablet Take 1- 2 tablets by mouth every 4 (four) hours as needed for pain. 84 tablet 0 ??? [DISCONTINUED] ondansetron ODT (ZOFRAN-ODT) 4 mg disintegrating tablet Dissolve 1 tablet for mild to moderate nausea or vomiting or 2 tablets for severe nausea or vomiting oral twice a day as needed. 15 tablet 0 ??? [DISCONTINUED] senna-docusate (PERICOLACE) 8.6-50 mg Take 2 tablets by mouth 2 (two) times a day. (Patient not taking: Reported on 03/18/2019) 60 tablet 1 No current facility-administered medications on file prior to encounter. Patient Active Problem List Diagnosis ??? Primary osteoarthritis of left hip ??? Risk factors for obstructive sleep apnea ??? HLD (hyperlipidemia) ??? Class 1 obesity in adult ??? Other seborrheic keratosis ??? Arthralgia of hip ??? Arthritis ??? Degeneration of lumbar or lumbosacral intervertebral disc ??? Disorder of rotator cuff ??? Herniated lumbar intervertebral disc ??? History of SCC (squamous cell carcinoma) of skin ??? Hypertension ??? Neoplasm of uncertain behavior of skin ??? Osteoarthritis of lumbar spine ??? Spinal stenosis ??? 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 Sciatica of left side ??? Solar lentiginosis ??? Sprain of rotator cuff capsule ??? Primary osteoarthritis of left hip Family History Problem Relation Age of Onset [...] education level: None Occupational History ??? None Social Needs ??? Financial resource strain: None ??? Food insecurity: Worry: None Inability: None ??? Transportation needs: Medical: None Non-medical: None Tobacco Use ??? Smoking status: Former Smoker Types: Pipe Start date: 1966 Last attempt to quit: 2016 Years since quittin.8 ??? Smokeless tobacco: Never Used ??? Tobacco comment: 5-6 times a day Substance and Sexual Activity ??? Alcohol use: No ??? Drug use: Never Comment: denies CBD ??? Sexual activity: None Lifestyle ??? Physical activity: Days per week: None Minutes per session: None ??? Stress: None Relationships ??? Social connections: Talks on phone: None Gets together: None Attends presybeterian service: None Active member of club or organization: None Attends meetings of clubs or organizations: None Relationship status: None ??? Intimate partner violence: Fear of current or ex partner: None Emotionally abused: None Physically abused: None Forced sexual activity: None Other Topics Concern ??? None Social History Narrative Smoking A Pipe : (Added by [email or web address]) Current smoker : (Added by [email or web address]) No alcohol use : (Added by [email or web address]) : (Added by [email or web address]) Retired : (Added by [email or web address]) Review of Systems Musculoskeletal: Positive for arthralgias and back pain. All other systems reviewed and are negative. Physical Exam Vitals: 08/02/19 0933 BP: 109/59 Pulse: 74 Resp: 14 Temp: 98.7 ??F (37.1 ??C) Weight: 94.6 kg (208 lb 8 oz) Height: 175.3 cm (5' 9 ) Body mass index is 30.79 kg/m??. CONSTITUTIONAL: General appearance normal, nutrition normal, no deformities, good grooming. EARS / NOSE / MOUTH / THROAT: Hearing assessment normal. RESPIRATORY: Normal effort. MUSCULOSKELETAL EXAMINATION: Gait normal. - SLR b/l negative - exacerbation of low back pain with lumbar extension - No TTP of the lumbosacral region - No TTP of the SI joints b/l - negative Karol's PSYCHIATRIC: Oriented X3, memory intact, and alert. Normal insight and judgement. Normal mood and affect. Speech normal. SKIN: Normal Lab/Radiology/Diagnostic Review: Laboratory review: Chemistry CMP: Lab Results Component Value Date ALBUMIN 4.0 05/01/2019 BUNSER 24 05/01/2019 CALCIUM 8.9 05/01/2019 CO2 24 05/01/2019 CHLORIDE 104 05/01/2019 CREATININE 1.2 05/01/2019 CREATININE 1.32 (H) 05/01/2019 GLUCOSE 176 05/01/2019 POTASSIUM 4.4 05/01/2019 SODIUM 140 05/01/2019 BILITOT 0.3 05/01/2019 PROT 6.9 05/01/2019 ALT 32 05/01/2019 AST 27 05/01/2019 ALKPHOS 48 05/01/2019 , Chemistry BMP Lab Results Component Value Date GLUCOSE 176 05/01/2019 CALCIUM 8.9 05/01/2019 SODIUM 140 05/01/2019 POTASSIUM 4.4 05/01/2019 CO2 24 05/01/2019 BUNSER 24 05/01/2019 CREATININE 1.2 05/01/2019 CREATININE 1.32 (H) 05/01/2019 , CBC: Lab Results Component Value Date WBC 16.7 (H) 05/01/2019 RBC 4.46 05/01/2019 HGB 14.4 05/01/2019 HCT 42.2 05/01/2019 MCV 94.6 05/01/2019 MCH 32.3 05/01/2019 MCHC 34.1 05/01/2019 RDW 13.2 07/14/2015 RDWCV 12.7 05/01/2019 RDWSD 44.2 05/01/2019 MPV 11.0 05/01/2019 NRBCABS 0.00 05/01/2019 , Coags: Lab Results Component Value Date PT 11.4 05/01/2019 APTT 24.3 (L) 05/01/2019 INR 1.05 05/01/2019 and POC Glucose: Lab Results Component Value Date GLUCOSE 176 05/01/2019 Assessment 1. Spondylosis of lumbar region without myelopathy or radiculopathy 2. Low back pain, unspecified back pain laterality, unspecified chronicity, unspecified whether sciatica present 3. Spinal stenosis of lumbar region without neurogenic claudication Discussion: Analgesics - denies any side effects to current meds Injection therapies - Has done LESI in the past, the last one in 2014 only lasted two week - subsequently underwent laminectomy with Dr. Chance. Physical therapy - detailed discussion regarding the importance of consistent use of optimized therapeutic and conditioning exercise programs. Psychological/behavioral medicine none Surgical intervention - prior surgery with Dr. Chance per above. Orders: No orders of the defined types were placed in this encounter. Plan: Analgesics - continue current meds. - Urine drug screen - none indicated Interventions - Given signs and symptoms of lumbar facet arthropathy, we will proceed with LMBB #1 at the next visit. Physical Therapy - will refer to PT after RFA of LMB nerves. Follow-up - Return to Pain Center - next available. - Call as needed Long Escobedo M.D. Fellow, Pain Management, Department of Anesthesiology [facility], [facility] 08/02/2019 11:03 AM ADD: - Today's note documents my personal evaluation of this patient. ??In addition, I have reviewed and confirmed with the patient and nurse the supportive information documented in today's scanned Patient Health Questionnaire and Office Note. - This patient was initially evaluated by the pain vice president talent management Joey Escobedo M.D. I reviewed that evaluation with the trainee and also evaluated the patient myself. I agree with the evaluation and recommendations noted above including edits which I have made to the note above. Eddi Shafer M.D. Cosigned by Eddi Shafer MD at 08/05/2019 6:07 AM SANITATION ASSOCIATE TATION ASSOCIATE Associated attestation - Eddi Shafer MD - 08/05/2019 6:07 AM SANITATION ASSOCIATE I have seen and examined the patient. I agree with the findings and plan of care as documented in the resident/fellow's note and as discussed with the resident/fellow. documented in this encounter Plan of Treatment Not on file documented as of this encounter Goals Goal Patient Goal Type Associated Problems Recent Progress Patient-Stated? Author CCM Chronic Pain Care Plan Chronic Care Management Worsening( 8:02 AM SANITATION ASSOCIATE) Chika Tracy, RN Note: Problem: Chronic Pain [...] without myelopathy or radiculopathy- Primary Low back pain, unspecified back pain laterality, unspecified chronicity, unspecified whether sciatica present Spinal stenosis of lumbar region without neurogenic claudication documented in this encounter Discontinued Medications Medication Sig Discontinue Reason Start Date End Da te amoxicillin (AMOXIL) 500 mg tablet/capsuleIndications :Prophylaxis, Medical Take 4 tablet/capsule (2,000 mg total) by mouth as needed (1 HR PRIOR TO DENTAL PROCEDURE). Therapy completed 10/03/2018 08/02/2019 celecoxib (CeleBREX) 100 mg capsuleIndications:Osteoa rthritis,Postoperative Acute Pain TAKE 2 PILLS WITH BREAKFAST THE DAY BEFORE SX. TAKE 1 PILL BID AFTER DISCHARGE. Therapy completed 05/23/2018 08/02/2019 gabapentin (NEURONTIN) 300 mg capsuleIndications:Chroni c 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 1 tab BID Therapy completed 04/26/2019 08/02/2019 cyclobenzaprine (FLEXERIL) 10 mg tablet Take 0.5 tablets (5 mg total) by mouth every 8 (eight) hours as needed for muscle spasms. Therapy completed 06/09/2018 08/02/2019 dextrin (FIBER, DEXTRIN,) 3 gram/3.5 gram powder Take 1 capsule by mouth 2 times daily Therapy completed 08/02/2019 aspirin 325 mg EC tabletIndications:Deep Vein Thrombosis Prevention Take 1 tablet (325 mg total) by mouth 2 (two) times a day. Therapy completed 05/29/2018 08/02/2019 HYDROcodone-acetaminophen (NORCO) 5-325 mg per tabletIndications:Pain Take 1-2 tablets by mouth every 4 (four) hours as needed for pain. Therapy completed 05/28/2018 08/02/2019 ondansetron ODT (ZOFRAN-ODT) 4 mg disintegrating tablet Dissolve 1 tablet for mild to moderate nausea or vomiting or 2 tablets for severe nausea or vomiting oral twice a day as needed. Therapy completed 05/02/2019 08/02/2019 senna-docusate (PERICOLACE) 8.6-50 mgIndications:constipatio n Take 2 tablets by mouth 2 (two) times a day. Therapy completed 05/29/2018 08/02/2019 documented as of this encounter Care Teams Development System Efficiency Manager Relationship Specialty Start Date End Date Bao Pierre MD [address] [address] PCP - General 12/22/16 documented as of this encounter
--- OUTSIDE RECORDS SUMMARY | 2024-10-01 08:47 | XMS_ITS | Encounter Summary ---
Author Organization [facility] Healthcare Address [address] [place] [address] Care Team Providers Care Works Manager Name Role Phone Bao Pierre MD Primary Care Provider [phone] Reason for Visit * Reason Onset Date Comments Pre Cert 08/02/2019 Encounter Details Date Type Department Care Team (Late st Contact Info) Description 08/02/2019 Telephone [facility] [place] [facility] [address] [facility] [address] [place], [place] [id number] Eddi Shafer MD [address] [facility] [address] [facility] [phone] [place], [place] [id number] Pre Cert Social History Tobacco Use Types Packs/Day Years [...] on file Legal Sex Male 9:03 PM COLORECTAL SURGEON Gender Identity Not on file Sexual Orientation Straight 10/15/2019 10 :34 PM COLORECTAL SURGEON documented as of this encounter Miscellaneous Notes * Telephone Encounter - Radha Mckenna - 08/06/2019 11:22 AM CST precert was obtained RECTAL SURGEON documented in this encounter Plan of Treatment Not on file documented as of this encounter Goals Goal Patient Goal Type Associated Problems Recent Progress Patient-Stated? Author CCM Chronic Pain Care Plan Chronic Care Management Worsening( 8:02 AM COLORECTAL SURGEON) Chika Tracy, RN Note: Problem: Chronic Pain Goals: 1. Minimize further functional decline 2. Maximize quality of life 3. Control pain Strategies: - Activity/exercise program recommendation - Conservative stepwise pain medicine strategy with multi-disciplinary approach - Recommend healthy lifestyle strategies and compensatory methods as needed documented as of this encounter Visit Diagnoses Not on filedocumented in this encounter Care Teams Works Manager Relationship Specialty Start Date End Date Bao Pierre MD [id number] [place] [address] PCP - General 12/22/16 documented as of this encounter
--- OUTSIDE RECORDS SUMMARY | 2024-10-01 08:47 | XMS_ITS | Encounter Summary ---
Author Organization [facility] Healthcare Address [address] [place] [address] Care Team Providers Care Chlorine Plant Operator Name Role Phone Bao Pierre MD Primary Care Provider [phone] Reason for Visit * Reason Comments Back Pain Encounter Details Date Type Department Care Team (Latest Contact Info) Description 08/05/2019 8:57 AM CABANA ATTENDANT - 08/05/2019 11:59 PM CABANA ATTENDANT Hospital Encounter [facility] [address] [facility] [address] [place], [place] [id number] Eddi Shafer MD [address] [facility] [phone] [place], [place] [id number] Spondylosis of lumbar region without myelopathy or radiculopathy (Primary Dx); Low back pain, unspecified back pain laterality, unspecified chronicity, unspecified whether sciatica present Discharge Disposition: Discharge to home or self [...] on file Legal Sex Male 9:03 PM CABANA ATTENDANT Gender Identity Not on file Sexual Orientation Straight 10/15/2019 10 :34 PM CABANA ATTENDANT documented as of this encounter Last Filed Vital Signs Vital Sign Reading Time Taken Comments Blood Pressure 108/66 08/05/2019 10:57 AM CABANA ATTENDANT Pulse 99 08/05/2019 10:57 AM CABANA ATTENDANT Temperature 37.1 ??C (98.7 ??F) 08/05/2019 9:06 AM CS T Respiratory Rate 16 08/05/2019 10:57 AM CABANA ATTENDANT Oxygen Saturation 97% 08/05/2019 10:43 AM CABANA ATTENDANT Inhaled Oxygen Concentration - - Weight 94 kg (207 lb 4.8 oz) 08/05/2019 9:06 AM CABANA ATTENDANT Height 175.3 cm (5' 9 ) 08/05/2019 9:06 AM CABANA ATTENDANT Body Mass Index 30.61 08/05/2019 9:06 AM CABANA ATTENDANT documented in this encounter Discharge Instructions * Discharge Instructions* Whit Horn RN - 08/05/2019 10:10 AM CABANA ATTENDANT 8 HOUR PAIN DIARY Pain Intensity Scale Worst pain 10 Completely interferes 9 with Activities of Daily Living Very severe pain 8 Greatly interferes 7 with ADL's Severe Pain 6 Partially interferes 5 with ADL'S Moderate pain 4 Somewhat interferes 3 with ADL'S Mild Pain 2 Mildly interferes 1 with ADL'S No Pain 0 Does not interfere with ADL'S Rate your pain over the next 8 hours starting at . We will call you for the results on the next business day. Your Doctor wants to know if this procedure helped you 1 hour after procedure 2 hours after procedure 3 hours after procedure 4 hours after procedure 5 hours after procedure 6 hours after procedure 7 hrs after procedure 8 hrs after procedure [facility] PATIENT EDUCATION POST-PROCEDURE INFORMATION [...] please call the Pain Management Center at ??? For emergencies after 4:00 p.m., you should call the hospital rotary drier operator at and ask to speak with the Pain Service doctor retention manager. [facility] ([facility]) DISCHARGE INSTRUCTIONS MEDICATIONS: [x] Continue your current home medications Start: [x] Notify your pharmacy for refill(s) 7 days before you are out of your medication. [] Opioid (Narcotic) Agreement signed and patient received copy. [] Side Effects of Opioid Medications given to patient Resume blood thinner: On Discontinue: PROCEDURE at today's visit: Lumbar medial branch block DIET: [x] Resume normal diet [] See [facility] Post Discharge Procedure Information Sheet ACTIVITY: [x] Resume normal activity tomorrow [x] See [facility] Post Discharge Procedure Information Sheet REFERRALS: Physical Therapy [] [facility] ([phone]) [] [facility] (Graded [facility] Imagery) [] [facility] ([phone]) [] [facility] (Graded [employer] Imag[employer]) [] Other: Behavior Medicine [] Pain Psychologist, [facility] Please call to schedule appointment [phone] or [phone] Diagnostic Test(s): EDUCATION provided on the following: [] Spinal Cord Stimulator Education and DVD. Vendor: FOLLOW UP APPOINTMENTS: [] Return as needed [x] Follow up appointment: We will contact you the next business day to obtain: [] An update on your condition [x] Your Pain diary scores [] Procedure at your next visit : INSTRUCTIONS before your next procedure: [] See [facility] Pre-Procedure Information Sheet [] Do not eat or drink for six (6) hours before the time/date of the procedure. [] Inquire with your prescribing provider if ok to hold blood thinner for days before procedure. [] Blood work required 2 hours before procedure: [] Laboratory Animal Facility Supervisor needed for next procedure Patient provided information and repeated back with understanding. If you need to reach us: For any questions about your procedure, please call the Pain Management Center [phone] (M-F) (8am-4pm) If you need urgent attention after 5 pm and weekends: Call the [facility] Validation Engineer at [phone] and ask for the Pain Service doctor retention manager. NA ATTENDANT documented in this encounter Medications at Time [...] MG ORAL TABLET DELAYED RELEASE 09/13/2013 1 mirv-amx-ryw-dayana- yajo-ijap-yon (Fiber 6) 1,000 mg tablet FIBER 09/13/2013 [...] Progress Notes * Eddi Shafer MD - 08/05/2019 9:00 AM CST Patient Name: Frandy Alvares : 1935 Today's Date: 08/05/2019 PCP: Bao Pierre MD Chief Complaint Patient presents with ??? Back Pain Pain Management History Mr. FRANDY ALVARES was [...] images personally reviewed today L-spine radiographs [facility] 01/09/18 - Prior lumbar laminectomy L3, L4 - lumbar spondylosis - rotary dextroscoliosis lumbar spine; facet arthropathy mid and lower lumbar spine severe R>L - lumbar disc degeneration - severe T12-L5 Left Hip radiographs [facility] 01/09/18 : - hip osteoarthritis, left [...] L5-S1 ?? Pelvis, left hip radiographs [facility] 06/24/19 - left total hip arthroplasty in near-anatomic alignment - hip osteoarthritis, right - mild ?? Pain Management Summary - Other Chronic pain - hip pain, left - hip osteoarthritis, left - moderate, progressive compared with prior hip radiograph 09/20/11 - Left Hip radiographs [facility] 01/09/18 - Lumbago with left sciatica - [...] reaction 01/16/18 hip joint injection - left 08/05/19 lumbar medial branch blocks bilateral L3, L4, L5, S1 Today's Visit 08/05/2019 Frandy Alvares returns to the Pain Management Center for follow-up regarding ongoing lower back pain Worst Pain: Lumbar spine Pain intensity: worst pain in last week - 10 /10; least pain - 0; current pain - 0 /10 Radiation of pain: Down into bilateral glute Associated signs/symptoms: None Injection therapies: Previous transforaminal steroid injctions as above, required glyco for vasovagal Exercise programs: Has been limited in exercise as pain is exacerbated by exercise Psychological /Behavioral therapy: None Prior analgesics: Current Analgesics: Doran 5-325 Gabapentin 300mg BID Flexeril 10mg q 8hrs Past Medical Histoy Allergies Allergen Reactions ??? [...] Take 20 mg by mouth daily. 12 Current Facility-Administered Medications on File Prior to Encounter Medication Dose Route Frequency Provider Last Rate Last Dose ??? bupivacaine (MARCAINE) 0.5 % (5 mg/mL) preservative free injection - ADS Override Pull ??? bupivacaine-epinephrine (MARCAINE w/EPI) 0.5 %-1:200,000 injection - ADS Override Pull ??? lidocaine PF (XYLOCAINE) 10 mg/mL (1 %) preservative free injection - ADS Override Pull Patient Active Problem List Diagnosis ??? Primary [...] Primary osteoarthritis of left hip ??? Lumbago Family History Problem Relation Age of Onset [...] on phone: None Gets together: None Attends orthodox service: None Active member of club or organization: None Attends meetings of clubs or organizations: None Relationship status: None ??? Intimate partner violence: Fear of current or ex partner: None Emotionally abused: None Physically abused: None Forced sexual activity: None Other Topics Concern ??? None Social History Narrative Smoking A Pipe : (Added by Stroz Friedberg) Current smoker : (Added by Stroz Friedberg) No alcohol use : (Added by Stroz Friedberg) : (Added by Stroz Friedberg) Retired : (Added by Stroz Friedberg) Review of Systems Physical Exam Vitals: 08/05/19 0906 BP: 118/57 Pulse: 71 Resp: 16 Temp: 98.7 ??F (37.1 ??C) Weight: 94 kg (207 lb 4.8 oz) Height: 175.3 cm (5' 9 ) Body mass index is 30.61 kg/m??. CONSTITUTIONAL: General appearance normal, nutrition obese, no deformities, good grooming. EARS / NOSE / MOUTH / THROAT: Hearing assessment normal. RESPIRATORY: Normal effort. MUSCULOSKELETAL EXAMINATION: Gait normal. PSYCHIATRIC: Oriented X3, memory intact, and alert. [...] laterality, unspecified chronicity, unspecified whether sciatica present Discussion: Analgesics Reviewed Injection therapies Reviewed local anesthetic medial branch blocks as part consideration for radiofrequency ablation LMBB bilateral L3-4, L4-5, L5-S1 today Physical therapy - detailed discussion regarding the importance of consistent use of optimized therapeutic and conditioning exercise programs. Orders: Orders Placed This Encounter ??? DISCONTD: bupivacaine (MARCAINE) 0.5 % (5 mg/mL) preservative free injection ??? DISCONTD: glycopyrrolate (ROBINUL) injection ??? DISCONTD: lidocaine PF (XYLOCAINE) 10 mg/mL (1 %) preservative free injection Plan: Analgesics - continue Gabapentin 300mg BID Doran 5-325mg BID PRN Flexeril 5mg q8 PRN Interventions - LMBB bilateral L3-4, L4-5, L5-S1 today Imaging - none Physical Therapy - Encourage PT after potential RFA Follow-up - Return to Pain Center - pending pain diary. - Call as needed ADD: - Today's note documents my personal evaluation of this patient. ??In addition, I have reviewed and confirmed with the patient and nurse the supportive information documented in today's scanned Patient Health Questionnaire and Office Note. - This patient was initially evaluated by the pain timber management assistant Alicia Shukla MD I reviewed thatevaluation with the trainee and also evaluated the patient myself. I agree with the evaluation and recommendations noted above including edits which I have made to the note above. Eddi Shafer M.D. NA ATTENDANT documented in this encounter Miscellaneous Notes * Op Note - Eddi Shafer MD - 08/05/2019 9:00 AM CST PROCEDURE NOTE: Name: Frandy Alvares : 1935 Date of Procedure: 08/05/2019 Attending Surgeon: Eddi Shafer M.D. Dry Charge Process Attendant: Alicia Shukla MD NAME OF PROCEDURE: Local Anesthetic Medial Branch Nerve Blocks to Facet Joints at Lumbar Levels, Bilateral L3, L4, L5, S1. PREPROCEDURAL DIAGNOSES: - Lumbar spondylosis without myelopathy [...] and the top of the sacrum, bilaterally. DISPOSITION: Patient discharged home in stable condition. Operative Findings: The procedure was completed as planned. Complications: There were no apparent complication. Estimated Blood Loss: None Intraoperative Fluids: None Specimens: None I was present throughout the procedure from the time-out, safety check and initial injection of local anesthetic through completion of the proceudre. Eddi Shafer M.D. NA ATTENDANT documented in this encounter Plan of Treatment Not on file documented as of this encounter Goals Goal Patient Goal Type Associated Problems Recent Progress Patient-Stated? Author CCM Chronic Pain Care Plan Chronic Care Management Worsening( 8:02 AM CABANA ATTENDANT) Chika Tracy RN Note: Problem: Chronic Pain [...] laterality, unspecified chronicity, unspecified whether sciatica present documented in this encounter Administered Medications Inactive Administered Medications - up to 3 most recent administrations Medication Order MAR Action Action Date Dose Rate Site bupivacaine (MARCAINE) 0.5 % (5 mg/mL) preservative free injection As needed, Starting on Mon08/05/19 at 1034, Intra-Op Given 08/05/2019 10:34 AM CABANA ATTENDANT 6 mL glycopyrrolate (ROBINUL) injection Administer over 1 Minutes, As needed, Starting on Mon08/05/19 at 1034, Intra-Op Given 08/05/2019 10:34 AM CABANA ATTENDANT 0.4 mg lidocaine PF (XYLOCAINE) 10 mg/mL (1 %) preservative free injection As needed, Starting on Mon08/05/19 at 1034, Intra-Op Given 08/05/2019 10:34 AM CABANA ATTENDANT 20 mL documented in this encounter Orders Discharge Count Last Ordered Date First Orde red Date DISCHARGE PATIENT 1 08/14/2019 documented in this encounter Care Teams Chlorine Plant Operator Relationship Specialty Start Date End Date Bao Pierre MD [address] [address] PCP - General 12/22/16 documented as of this encounter
--- OUTSIDE RECORDS SUMMARY | 2024-10-01 08:48 | XMS_ITS | Encounter Summary ---
Author Organization [facility] [employer] [facility] Address [address] [place] [address] Phone Care Team Providers Care Transition Advisor Name Role Phone Bao Pierre MD Primary Care Provider [phone] Encounter Details Date Type Department Care Team (Late st Contact Info) Description 05/24/2018 Documentation [facility] Orthopaedic Surgery [address] [facility] [address] [place] [address] [place] [address] Portillo Fisher Social History Tobacco Use Types Packs/Day Years Used Date Smoking Tobacco: Former Pipe 2015 Smokeless Tobacco: Never Comments:5-6 times a day Alcohol Use Standard Drinks/Week Comments No 0 (1 standard drink = 0.6 oz pur e alcohol) Sex and Gender Information Value Date Recorded Sex Assigned at Not on file Legal Sex Male 9:03 PM 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 (home) Procedure: L CHRISTIANO OR Date: 05-28-18 OR Location: [facility] Bundled Payment Program: BPCI Joint Fur Dyer Name: Chika Barajas: PCP: Bao Pierre MD When was you last visit: Pre-Op Scheduling Anesthesia: Spinal Preferred Blood Requirements: T & S Consents: Surgery procedure consent obtained. Blood transfusion consent obtained. Preadmission Testing/Anesthesia H&P: Date: 05-23-18 Time: 9:30 am Pre-Op Joint Class Scheduled for: Date: 05-23-18 Time: 1pm PreHab Rx given to Patient: no Faxed to: Doppler: n/a Date: Time: Pre-Op Meds/Anticoag: Instructed to stop primary prevention ASA/hormones/supplements 7 Days prior to surgery Instructed to stop NSAIDS 5 days prior to surgery Anticoagulation protocol discussed: ASA/Active Care Pumps 10 days Decolonization Instructions: Skin preparations guide Mupirocin Rx Prescription for Celebrex N/A The patient was given a CHRISTIANO teaching packet including surgery guidelines with instructions, DECOL protocol instructions, instructions to stop all NSAID's, Blood thinners and aspirin products one weekbefore surgery, as well as office contacts to call if they have any additional questions prior to their surgery date. Current Outpatient Prescriptions: ??? alfuzosin ER (UROXATRAL) 10 mg 24 hr tablet, Take 10 mg by mouth daily. , Disp: , Rfl: ??? aspirin 81 mg tablet, Take 81 mg by mouth daily. , Disp: , Rfl: ??? celecoxib (CeleBREX) 100 mg capsule, TAKE 2 PILLS WITH BREAKFAST THE DAY BEFORE SX. TAKE 1 PILLBID AFTER DISCHARGE., Disp: 10 capsule, Rfl: 0 ??? finasteride (PROSCAR) 5 mg tablet, Take 5 mg by mouth daily. , Disp: , Rfl: ??? glucosamine-chondroitin 250-200 mg tablet, Take 1 tablet by mouth 2 times daily. , Disp: , Rfl: ??? inulin (FIBER GUMMIES) 2 gram tablet,chewable, Take 1 tablet by mouth 2 (two) times a day., Disp: , Rfl: ??? lovastatin (MEVACOR) 20 mg tablet, Take 20 mg by mouth daily. , Disp: , Rfl: 12 ??? multivitamin with minerals tablet, Take 2 tablets by mouth daily. , Disp: , Rfl: ??? mupirocin (BACTROBAN) 2 % ointment, Apply topically 2 (two) times a day for 5 days. APPLY TO NOSTRILS TWICE A DAY FOR 5 DAYS PRIOR TO SURGERY., Disp: 22 g, Rfl: 0 ??? UNABLE TO FIND, Take 1 each by mouth every morning. Med Name: katlyn, Disp: , Rfl: He is allergic to epinephrine. Risk Assessment DONTA RISK: Yes STOP BANG Score: 5 CMP(CO2): 28 Sleep Study: CPAP/BIPAP: No Malnutrition screen - CMP ordered Bone Health screen - Vitamin D Level Ordered: Yes No Oral Health: Healthy teeth Smoking History: No Family History of DVT/PE: No He reports that he quit smoking about 2 years ago. His smoking use included Pipe. He started smoking about 52 years ago. He has never used smokeless tobacco. He reports that he does not drink alcoholor use drugs. Audit-C Alcohol Screening How often do you have a drink containing alcohol?: Never How many standard drinks containing alcohol do you have on a typical day?: 1 or 2 drinks How often do you have six or more drinks on one occasion?: Never Audit-C Score: 0 Male: <4 (negative) Illegal Drug Use: Never Functional/Home Assessment personal financial representative assistance: Live in available day/night In a: Home Home Accessibility: Stairs Home Environment: Entry Steps: Yes: Number of Steps: 4 Bedroom Location: 1st Floor Bathroom Location:1st Floor What Medical Devices/Equipment used: Cane Are you able to self-manage activities of daily living: ADL's: Bathing, Dressing, Self-feeding, Personal Hygiene and Toilet Hygiene IADL's: Housework, Medications, Managing Money, Shopping and Telephone Transportation: Self Pre-Op Ambulation: Impaired Community distances Projected Post-Op Weight bearing: Full or WBAT Home Location: < 150 miles RAPT: What is your age group?: > 75 Years Gender: Male How far on average can you walk? (a block is 200 meters): Housebound (most of time) Which gait aid do you use most? (more often than not): Single-point stick Do you use community supports? (home-help, meals on wheels, district nursing): Two or more per week Will you live with someone who can care for you after your operation?: Yes RAPT Total Score: 6 (If <9 send to Recon ANIMAL CONTROL SUPERVISOR's floor care team for review) (If <6 Pre-Op SW Consult) BRAND: Destination at discharge from acute care predicted by score: Scores <6 facility placement Scores 6-9 directly home after additional acute intervention Scores >9 directly home Patient's expectation of discharge destination is also a determinant. The prediction indicated by the score is discussed with the patient and the destination agreed to. Patient's preference: Home Agreed destination: Home with > 5 Home Health visits Social Work Referral: Potential Rehab/SNF Candidate: Mobility/safety concern RRAT Infection Risk Factors: Is patient positive for MRSA colonization at CPAP?: No Every Patient is decolonized per guideline. - Nasal Mupirocin (Bid x5 days pre-op) or povidone-iodine (DOS) and chlorhexidine gluconate (CHG) showers (QD x5 days prior to surgery & morning of surgery) and appropriate antibiotic coverage. - If these requirements are not met then HARD STOP until protocol implemented. Smoking (Tobacco Use): Current Smoker? No Obesity: What is the patient's BMI? BMI 30 - 35 Encourage enrollment in nutritional counseling program. Cardiovascular Disease: Patient has a history of Coronary Artery Disease (CAD), stroke, Peripheral Vascular Disease or VTED, is 60 years of age or older and has at least 2 cardiac risk factors: No All qualifying patients will require medical and/or cardiac clearance/and will be flagged for CPAP high risk screening/monitoring kunal-Operatively. Venous Thromboembolic Disease: Does the patient have a history of Pulmonary Embolus or Deep Vein Thrombosis? No Does the patient have any of the following VTED risk factors: CVA, COPD, BMI>30, CAD, Stroke, PVD, or Activated Protein C Resistance? No Neurocognitive, Psychological and Behavioral Problems (including alcohol and drug dependency): Does the patient have a history of alcohol abuse or chronic active narcotic dependency? No Does the patient have any neurocognitive deficits such as traumatic brain injury (TBI)l active psychiatric illness, dementia, etc? No Was the patient's last calculated PROMIS depression score greater than or equal to 60? No Physical Deconditioning: Patient is nonambulatory or needs assistance with transfer status? No Patient has comorbidities affecting physical function and ambulation? No Diabetes: Is the patient diabetic? No Last calculated Fasting Blood Glucose > 180 mg/dl? Last calculated Hgb A1c > 8? Is DM well controlled? RRAT Total Score: 1 Recommendations for Preoperative Care/Optimization: < 2 Proceed with Scheduling Surgery. Yuki Fisher documented in this encounter Plan of Treatment Not on file documented as of this encounter Visit Diagnoses Not on filedocumented in this encounter Care Teams Transition Advisor Relationship Specialty Start Date End Date Bao Pierre MD [address] [address] PCP - General 12/22/16 documented as of this encounter
--- OUTSIDE RECORDS SUMMARY | 2024-10-01 08:48 | XMS_ITS | Encounter Summary ---
Author Organization [facility] Healthcare Address [address] [place] [address] Care Team Providers Care Web Services Developer Name Role Phone Bao Pierre MD Primary Care Provider [phone] Patricia Tucker RN Unavailable [phone] Encounter Details Date Type Department Care Team (Latest Contact Info) Description 05/28/2018 5:21 AM CDT - 05/29/2018 2:25 PM CDT Hospital Encounter [facility] [address] [place] [address] Hilary Liang MD [address] [facility] [address] [place] [address] Primary osteoarthritis of left hip (Primary Dx) Discharge Disposition: Discharge to home [...] on file Legal Sex Male 9:03 PM SUPPLY PERSON Gender Identity Not on file Sexual Orientation Straight 10/15/2019 10 :34 PM SUPPLY PERSON documented as of this encounter Last Filed Vital Signs Vital Sign Reading Time Taken Comments Blood Pressure 103/56 05/29/2018 12:28 PM CDT Pulse 79 05/29/2018 12:28 PM CDT Temperature 37.2 ??C (99 ??F) 05/29/2018 8:17 AM CDT Respiratory Rate 18 05/29/2018 8:17 AM CDT Oxygen Saturation 96% 05/29/2018 11:05 AM CDT Inhaled Oxygen Concentration - - Weight 93.4 kg (206 lb) 05/28/2018 6:00 AM CDT Height 175.3 cm (5' 9.02 ) 05/28/2018 6:00 AM CD T Body Mass Index 30.41 05/28/2018 6:00 AM CDT documented in this encounter Discharge Summaries * Екатерина Doll, STRAW HAT BRIM CUTTER OPERATOR - 05/29/2018 11:20 AM CDT Inpatient Discharge Summary Admitting Provider: Hilary Liang MD Discharge Provider: Hilary Liang MD Primary Care Physician at Discharge: Bao Pierre MD [phone] Admission Date: 05/28/2018 Discharge Date: 05/29/2018 Primary Discharge Diagnosis: Primary osteoarthritis of left hip Secondary Discharge Diagnosis: Primary osteoarthritis of left hip Risk factors for obstructive sleep apnea HLD (hyperlipidemia) Class 1 obesity in adult * No resolved hospital problems. * DETAILS OF HOSPITAL STAY Date of Admission: 05/28/2018 Date of Discharge: 05/29/2018 Procedure Performed: Primary Left Total Hip Arthroplasty Chief Complaint: Left hip pain History of Present Illness: The patient is a 82 y.o. year old male cared for by Dr. Hilary Liang. The risks, benefits, alternatives and complications of a primary left total hip arthroplasty was discussed with the patient atlength prior to surgery. The patient elected to proceed with a surgical intervention given the significant influence on their quality of life. Informed consent was obtained prior to surgery. Physical Exam: On the day of discharge, the patient was afebrile with stable vital signs. Examination of the left lower extremity revealed the patient was neurovascularly intact. Incision was clean, dry and intact.Pain was adequately maintained on oral opiates. Hospital Course: The patient was admitted on 05/28/2018 and underwent a primary left total hip arthroplasty. The patient tolerated the procedure well and was taken in stable condition to the postoperative recovery room then transferred to the orthopedic floor in stable condition. The patient progressed well and was able to be weaned off IV opiates. The patient participated with physical and occupational therapy and was deemed stable for discharge. He was maintained on Aspirin for deep venous thrombosis prophylaxis. Pain was adequately maintained on oral opiates. The patient was discharged in stable condition to home with home health care on 05/29/2018. Discharge Medications: Dia Frandy Domi Home Medication Instructions SNEHAL:[id number] Printed on:05/29/18 1120 Medication Information alfuzosin ER (UROXATRAL) 10 mg 24 hr tablet Take 10 mg by mouth daily. aspirin 325 mg EC tablet Take 1 tablet (325 mg total) by mouth 2 (two) times a day. celecoxib (CeleBREX) 100 mg capsule TAKE 2 PILLS WITH BREAKFAST THE DAY BEFORE SX. TAKE 1 PILL BID AFTER DISCHARGE. finasteride (PROSCAR) 5 mg tablet Take 5 mg by mouth daily. HYDROcodone-acetaminophen (NORCO) 5-325 mg per tablet Take 1-2 tablets by mouth every 4 (four) hours as needed for pain. inulin (FIBER GUMMIES) 2 gram tablet,chewable Take 1 tablet by mouth 2 (two) times a day. lovastatin (MEVACOR) 20 mg tablet Take 20 mg by mouth daily. senna-docusate (PERICOLACE) 8.6-50 mg Take 2 tablets by mouth 2 (two) times a day. Discharge Activity: 1. Weight bearing: Weight bearing as tolerated left lower extremity 2. Assistive Devices: Walker or crutches for all walking 3. Hip Precautions: Posterior Hip Precautions for 6 weeks 4. DVT prophylaxis: Aspirin twice daily for 6 weeks and Active Care pumps at all times for 10 days Discharge Diet: Resume previous diet Follow-up: Dr. Hilary Liang on 06/21/18 at 1:20pm at [facility]: [facility] ([facility], [address]th [address], [place] [address]. Condition on Discharge: Stable documented in this encounter Discharge Instructions * Discharge Instr - Other Orders* Chris Cervantes, RN - 05/29/2018 10:38 AM CDT [facility] Home Care is your home care provider and will contact you within 24 hours to schedule your first home visit. If you do not hear from them within that timeframe, please call them at [phone] to schedule. [facility] is the provider of your active care pumps. Please call them at if you have any questions or concerns about your equipment. documented in this encounter Medications at Time of Discharge alfuzosin ER (UROXATRAL) 10 mg 24 hr tabletIndications :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 Take 1 tablet (10 mg total) by mouth daily 4 aspirin 325 mg EC tabletIndications :Deep Vein Thrombosis Prevention Take 1 tablet (325 mg total) by mouth 2 (two) times a day. 84 tablet 05/29/2018 9 aspirin 81 mg enteric coated tablet ADULT ASPIRIN EC LOW STRENGTH 81 MG ORAL TABLET DELAYED RELEASE 09/13/2013 1 ufst-xyc-qog-dayana- fdkh-vgqx-mcc (Fiber 6) 1,000 mg tablet FIBER 09/13/2013 1 celecoxib (CeleBREX) 100 mg capsuleIndication s:Osteoarthritis, Postoperative Acute Pain TAKE 2 PILLS WITH BREAKFAST THE DAY BEFORE SX. TAKE 1 PILL BID AFTER DISCHARGE. 10 capsule 05/23/2018 9 finasteride (PROSCAR) 5 mg tabletIndications :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 Take 1 tablet (5 mg total) by mouth daily 4 glucosamine sulfate 2KCl 500 mg capsule GLUCOSAMINE CAPSULE 09/13/2013 1 glucosamine sulfate 500 mg capsule GLUCOSAMINE CAPSULE 09/13/2013 3 HYDROcodone-aceta minophen (NORCO) 5-325 mg per tabletIndications :Pain Take 1-2 tablets by mouth every 4 (four) hours as needed for pain. 84 tablet 05/28/2018 9 HYDROcodone-aceta minophen (NORCO) 5-325 mg per tabletIndications :Pain Take 1-2 tablets by mouth every 4 (four) hours as needed for pain. 84 tablet 06/04/2018 8 inulin 2 gram tablet,chewable Take 1 tablet by mouth 2 (two) times a day 3 lisinopril-hydroC HLOROthiazide (ZESTORETIC) 10-12.5 mg per tablet 10/02/1969 2 lovastatin (MEVACOR) 20 mg tabletIndications :hyperlipidemia Take 20 mg by mouth daily. 12 02/15/2018 0 naproxen sodium 220 mg capsule ALEVE CAPSULE 09/13/2013 02 1 senna-docusate (PERICOLACE) 8.6-50 mgIndications:con stipation Take 2 tablets by mouth 2 (two) times a day. 60 tablet 1 05/29/2018 9 documented as of this encounter Ordered Prescriptions Prescription Sig Dispense Quantity Refills Last Filled Start Date End Date aspirin 325 mg EC tabletIndications: Deep Vein Thrombosis Prevention Take 1 tablet (325 mg total) by mouth 2 (two) times a day. 84 tablet 05/29/2018 9 senna-docusate (PERICOLACE) 8.6-50 mgIndications:cons tipation Take 2 tablets by mouth 2 (two) times a day. 60 tablet 1 05/29/2018 9 HYDROcodone-acetam inophen (NORCO) 5-325 mg per tabletIndications: Pain Take 1-2 tablets by mouth every 4 (four) hours as needed for pain. 84 tablet 06/04/2018 8 HYDROcodone-acetam inophen (NORCO) 5-325 mg per tabletIndications: Pain Take 1-2 tablets by mouth every 4 (four) hours as needed for pain. 84 tablet 05/28/2018 9 documented in this encounter Discharge Disposition Disposition Code Departure Means Destination Discharge to home or self care documented in this encounter Progress Notes * Chris Cervantes, RN - 05/29/2018 10:39 AM CDT 05/29/18 1037 Discharge Summary Chart reviewed For Medical Necessity Does patient have a planned readmission to hospital planned? No Discharge Disposition Home with Home Health (PT/OT/RN) Equipment/Provider Needs Home Equipment Needs Identified;Home Provider Services Needs Identified Home Care Agency Information Home Care Agency Name [facility] Home Group Home Care Agency Home Care Agency Contact Spoken to Alicia at [facility] Home Equipment Information Home Equipment Provider Name [facility] Home Equipment Provider Phone Number Home Equipment Provider Contact Spoken to [facility] Equipment Ordered active care pumps Discharge Additional Assistance Does the patient need discharge transport arranged? No Post Discharge Care Provider Post Discharge Care Plan Next level of care provider has access to complete EMR Report Per DCAM ADD: today Medical Necessity: medically stable. Referrals: [facility] Home Care (Alicia at [facility] notified of discharge today); [facility] for active care pumps; patient already has wheeled walker Support at Discharge: family Transportation: family Follow up appointment: Primary team to schedule * Chris Cervantes RN - 05/29/2018 10:38 AM CDT 05/29/18 1034 Patient Information Primary Caregiver Self Support System Family members Prior Level of Functioning Durable Medical Equipment Walker (wheeled) Living Arrangement Lives alone;House Behavior Oriented Income Information Income Source Fpc/Pension;SSD/SSI Income/Expense Information Income meets expenses Potential Discharge Needs Discharge Potential discharging to home with home health Home Health detention;Physical therapy Anticipated discharge level of care Return Home Communications Patient choice (Home Health/Hospice) list given to patient/screening representative? Yes Fiduciary Responsibility Patient/Designated decision maker was informed of [facility] fiduciary relationship as necessary Medical Necessity: presented for total hip arthroplasty with a history of osteoarthritis of left hip Additional Information/Options Discussed: Confirmed patient's phone number, address, primary care physician, and home pharmacy. Explained role and purpose of case hardener. The patient does not have any home care preferences at this time. Plan Includes: discharging to home with home health Insurance verified as: Medicare A&B; [place] Prescription Coverage: yes Admission source: home PCP verified as: Dr. Bao Pierre Outpatient Pharmacy: [facility] in [place], [place] * Eddi Fernandez MD - 05/29/2018 6:00 AM CDT Ortho Recon Daily Progress Subjective This patient is postoperative day 1 following LTHA Interval History: patient in minimal pain, was able to sleep, able to void Objective Vitals: 24hr Min/Max: Temp Min: 36.9 ??C (98.4 ??F) Max: 37.2 ??C (99 ??F) Pulse Min: 61 Max: 93 BP Min: 103/56 Max: 165/69 Resp Min: 16 Max: 18 SpO2 Min: 93 % Max: 98 % Most Recent : Vitals: 05/29/18 1228 BP: 103/56 Pulse: 79 Resp: Temp: SpO2: I/O last 2 completed shifts: In: 2220 [I.V.:1200; IV Piggyback:1020] Out: 450 [Urine:200; Blood:250] I/O this shift: In: - Out: 200 [Urine:200] Wound 05/23/18 Abrasion(s) Left Arm (Active) Wound Status Healed 05/28/2018 6:00 AM Site Assessment Dusky 05/28/2018 6:09 AM Drainage Amount None 05/28/2018 6:00 AM Surgical Site 05/28/18 Left Frontal Region left total hip (Active) Site Assessment Clean;Dry;Intact 05/28/2018 8:00 PM Kunal-wound Assessment Dry;Intact 05/28/2018 8:00 PM Closure Approximated 05/28/2018 9:44 AM Drainage Amount None 05/28/2018 8:00 PM Dressing Status Dry;Intact 05/28/2018 8:00 PM Dressing Dry dressing 05/28/2018 8:00 PM Adhesive Closure Strips Applied 05/28/2018 9:40 AM Securement Method Sutures 05/28/2018 9:40 AM Physical Exam: Awake, alert, oriented No acute distress Breathing regular and unlabored Dressing clean and dry Sensation intact in the superficial peroneal, deep peroneal, and tibial nerves 5/5 strength TA, GS, EHL, FHL Dorsalis pedis pulse on affected limb palpable Lab/Radiology/Diagnostic Review: I have reviewed the imaging and lab results Assessment/Plan Remove Adkins Catheter Weight bearing:Weight bearing as tolerated left lower extremity Mobilize with Physical therapy and OT Pain: controlled DVT prophylaxis: Aspirin/Active Care Pumps Additional needs: none Discharge planning: Home with home health documented in this encounter H&P Notes * Hilary Liang MD - 05/28/2018 9:45 AM CDT I have reviewed the H&P, examined the patient, and endorse the findings as written. PREOPERATIVE NOTE Plan for left total hip arthroplasty. I re-reviewed the risks of surgery with the patient, including dislocation, venous thromboembolism,injury to nearby blood vessels and nerves, fracture, limb length discrepancy, infection, and the risks of anesthesia, which include, but are not limited to, heart attack, stroke, and . I explained that the patient would have precautions to follow to prevent dislocation. I explained that the patient would be on medication postoperatively to reduce the risk of venous thromboembolism. I explained that no form of prophylaxis is 100% preventive of VTE. I explained that occasionally patients note a limb length discrepancy which requires a shoe lift. I explained that if the prosthesis develops an infection, it will require further surgery and could include temporary or permanent removal of the device. Alternatives to surgery, including medications and injections, were also discussed. All questions were answered and he elects to proceed. Consent was obtained. Hilary Liang M.D. Clinical Project Manager, Orthopaedic Surgery Source Note - Hilary Liang MD - 05/03/2018 9:10 AM CDT NEW PATIENT VISIT CHIEF COMPLAINT: Left hip pain HISTORY OF PRESENT ILLNESS: This is a 82 y.o. year old male with left hip pain. He has had pain for3 months. It is located in the groin. It is worse with walking. He takes Aleve for pain. He has had an injection. He has not had physical therapy. PAST MEDICAL HISTORY: He has a past medical history of Arthritis; Eye disease; Hypercholesteremia; Personal history of other diseases of the circulatory system; and Personal history of other diseases of the respiratory system. The patient has not had a personal history of blood clots. PAST SURGICAL HISTORY: He has a past surgical history that includes Shoulder surgery; pr removal gallbladder; and Back surgery. MEDICATIONS: He has a current medication list which includes the following prescription(s): alfuzosin er, finasteride, glucosamine-chondroitin, hydroxychloroquine, lovastatin, multivitamin with minerals, polycarbophil, and aspirin. ALLERGIES: No known allergies. SOCIAL HISTORY: He quit smoking two years ago. He reports social alcohol use. He denies drug use. FAMILY HISTORY: His family history includes Arthritis in his mother and sister; Cancer in his sister; Heart diseasein his brother and mother; Hypertension in his mother; Scoliosis in his son. The patient has not had a family history of blood clots. REVIEW OF SYSTEMS: Constitutional: Negative for chills, activity change and appetite change. HENT: Negative. Eyes: Negative. Respiratory: Negative. Cardiovascular: Negative. Gastrointestinal: Negative. Genitourinary: Negative. Musculoskeletal: Negative. Skin: Negative. Neurological: Negative. Psychiatric/Behavioral: Negative. PHYSICAL EXAM: Awake, alert, oriented x 3 No acute distress Height 5'7'' Weight 210 Breathing regular and unlabored Walks with a slight limp Pain in left hip with PROM Left hip ROM 0-90, IRF 10, ERF 30, Abd 35 Sensation intact to light touch in the superficial peroneal, deep peroneal, and tibial nerve distributions 5/5 EHL, FHL, TA, GS Palpable DP pulse RADIOGRAPHS: Radiographs obtained previously were reviewed, which demonstrate bone on bone left hiposteoarthritis DIAGNOSIS: 1. Left hip osteoarthritis IMPRESSION: This patient has osteoarthritis of the left hip which is impacting daily activities significantly. I reviewed treatment options, including activity modification, weight loss, physical therapy, anti-inflammatories, injections, cooled radiofrequency, and finally hip replacement. The patient elects for left total hip replacement. I discussed the risks of the procedure, including dislocation, fracture, venous thromboembolism, limb length discrepancy, infection, and the risks of anesthesia. I explained that the patient would have precautions to follow to prevent dislocation. I explained that the patient would be on medication postoperatively to reduce the risk of venous thromboembolism. I explained that occasionally patients note a limb length discrepancy which requires a shoe lift. I explained that one step to decrease the risk of infection is to have a dental check-up to ensure that thereare no dental infections prior to surgery, and that a note from his dentist should be faxed to our office. I explained that if the prosthesis develops an infection, it will require further surgery and could include temporary or permanent removal of the device. I also explained that he would meet with Anesthesiology preoperatively to discuss anesthetic risk. All questions were answered. PLAN: Left total hip arthroplasty at the patient's convenience Preoperative risk assessment by the patient's primary care physician and Anesthesia Hilary Liang M.D. Clinical Project Manager, Orthopaedic Surgery documented in this encounter Nursing Notes * Timothy Ramachandran RN - 05/28/2018 12:21 PM CDT Clinical alert on post op patient. MEWS 0. Floor to call if any assistance needed. documented in this encounter Miscellaneous Notes * Plan of Care - Alicia Platt RN - 05/29/2018 1:09 PM CDT order received to arrange home RN and PT visits for postop assessment and treatment. [facility] Home Care's [place] branch is unable to staff for tomorrow start of care. [facility] ([phone]) has accepted the patient for start of care 05/30/18. * Plan of Care - Екатерина Nix OT - 05/29/2018 11:13 AM CDT Problem: Dressings Lower Extremities Goal: STG - Patient to complete lower body dressing With supervision, with AE. Outcome: Progressing Problem: Transfers Goal: STG - Patient will perform toilet transfer With supervision. Outcome: Progressing * Plan of Care - Jose Mott - 05/29/2018 1:25 AM CDT Health Behavior: ??? Understanding of discharge needs will improve Progressing Lack of Knowledge: ??? Ability to state ways to decrease the risk of falls will improve Progressing Safety: ??? Will remain free from falls Progressing ??? Will remain free from injury from falls Progressing ??? Will remain free from falls and injury in home environment Progressing Goals: Summary: Jose Mott * Plan of Care - Mike Wilkins RN - 05/28/2018 5:08 PM CDT Health Behavior: ??? Understanding of discharge needs will improve Progressing Lack of Knowledge: ??? Ability to state ways to decrease the risk of falls will improve Progressing Safety: ??? Will remain free from falls Progressing ??? Will remain free from injury from falls Progressing ??? Will remain free from falls and injury in home environment Progressing Goals: Summary: Mike Wilkins RN * Op Note - Hilary Liang MD - 05/28/2018 8:13 AM CDT OPERATIVE REPORT DATE OF SURGERY: 05/28/18 ATTENDING SURGEON: Hilary Liang MD ASSISTANTS: 1. Que Fernandez MD 2. SANG Aceves ANESTHESIA: General PREOPERATIVE DIAGNOSIS: Left hip osteoarthritis POSTOPERATIVE DIAGNOSIS: Same as above PROCEDURE: Left total hip arthroplasty IMPLANTS: 1. Berta Trilogy Acetabular Shell, 60 mm OD 2. Berta Acetabular Screws, 40mm, 30mm 3. Berta Trilogy Longevity Liner, 36 mm ID, neutral 4. Berta VerSys Fiber Metal Midcoat, Size 16, Standard Offset 5. Berta Biolox Femoral Head, Size 36/0 INDICATIONS: This patient has osteoarthritis of the hip and has failed conservative management. He elects for total hip arthroplasty. Risks of surgery, including bleeding, infection, injury to nearby neurovascular structures, fracture, venous thromboembolism, limb length discrepancy, and dislocation, were discussed preoperatively. Alternatives to surgery, including medications and injections, were also discussed and the patient elects to proceed. OPERATIVE FINDINGS: Osteoarthritis DESCRIPTION OF PROCEDURE: The patient was met in the preoperative holding area where the correct surgical site and procedure were confirmed. He was taken back to the operating room and placed supine on the operating room table. SCDs were placed on the non-operative lower extremity. After anesthesia was established, the patient was placed in the lateral decubitus position with the operative side up. All bony prominences were padded. Prophylactic antibiotics were given. The left lower extremity was prepped and draped in the usual sterile fashion. A time out was performed, confirming the surgical site and procedure. Leg length was measured preoperatively relative to the nonoperative leg. A posterolateral approach was made to the hip. Skin and subcutaneous tissue were incised sharply down to IT band. The IT band was incised and the gluteus caleb was split. The Charnley retractor was placed after carefully palpating and protecting the sciatic nerve. The short external rotators and posterior capsule were all released as a single sleeve. The hip was dislocated. The femoral neck osteotomy was made according to thepreoperative plan. The acetabulum was exposed and reamed to give a 1mm press fit. The acetabular component was impacted into position and fixed in place with two screws. The liner was impacted into position and the locking mechanism engaged. Attention was then placed on the proximal femur. The proximal femur was exposed and prepared initially with a box osteotome and Charnley awl. It was sequentially reamed and broached to a stable fit. A trial head and neck were placed and the hip was reduced.Leg length uatsdin was confirmed. Stability was confirmed in extension/external rotation, flexion/internal rotation, high flexion, and the position of sleep. An intraoperative x-ray was obtained to confirm component position and leg length uatsdin. The hip was dislocated. The trial components were removed. The final stem was impacted into place. The femoral head was impacted on a clean and dry trunnion. The hip was reduced. Leg length uatsdin and stability were again confirmed. The p eriarticular and subcutaneous tissues were infiltrated with a local anesthetic cocktail, taking care to avoid areas posteriorly near the sciatic nerve. The posterior capsule and short external rotators were repaired with #1 Vicryl through drill holes in the greater trochanter. The fascial layer wasclosed with #1 Vicryl. The subcutaneous layer was closed with 2-0 Prolene. The skin was closed withstaples. A sterile dressing was placed. An abduction pillow was placed between the patient's legs. The patient was placed supine on a hospital bed, awakened from anesthesia, and taken to recovery in stable condition. POSTOPERATIVE PLAN: 1. Weight bearing as tolerated, left lower extremity 2. Posterior hip precautions 3. DVT prophylaxis - Aspirin and Active Care pumps ESTIMATED BLOOD LOSS: Per Anesthesia INTRAOPERATIVE FLUIDS: Per Anesthesia SPONGE/INSTRUMENT/NEEDLE COUNTS: Correct CONDITION ON DISCHARGE: Stable COMPLICATIONS: None STATEMENT OF ATTENDING SURGEON'S PRESENCE: The attending surgeon, Dr. Hilary Liang, was scrubbed for the entire procedure except skin closure. She remained immediately available during skin closure. Hilary Liang M.D. Clinical Project Manager, Orthopaedic Surgery * Brief Op Note - Eddi Fernandez MD - 05/28/2018 8:13 AM CDT Operative Progress Note Attending Surgeon: Hilary Liang MD Surgical Team: Pipe Fitter Helper: Dorian Ramirez RN; Mike Lozano RN Scrub: Jovany Ramirez SA FANS CLERK: Patricia Montelongo RN Resident: Eddi Fernandez DATE OF SURGERY : 05/28/2018 Preoperative Diagnosis: Pre-op Diagnosis * Primary osteoarthritis of left hip [M16.12] Postoperative Diagnosis: Post-op Diagnosis * Primary osteoarthritis of left hip [M16.12] Procedure: Left total hip arthroplasty Operative Findings: Arthritic left hip Estimated Blood Loss: 250 mL Intraoperative Fluids: 1000 mls Specimens: No specimen collected in procedure Implants: Implant Name Type Inv. Item Serial No. Balance Engineer Lot No. [id number] No. Used [employer] [id number] TRILOGY 60MM PRIMARY CLUSTER HOLE HIP SHELL ACETABULAR TIVANIUM - S0.- [id number] [employer] [id number] TRILOGY 60MM PRIMARY CLUSTER HOLE HIP SHELL ACETABULAR TIVANIUM 0. [employer] [id number] Left 1 [employer] [id number] TRILOGY 6.5MM 40MM SELF TAP HIP ACETABULAR CORTICAL SCREW BONE - S0. - [id number] [employer] [id number] TRILOGY 6.5MM 40MM SELF TAP HIP ACETABULAR CORTICAL SCREW BONE 0. [employer] [id number] Left 1 [employer] [id number] TRILOGY 6.5MM 30MM SELF TAP ACETABULAR CORTICAL SCREW BONE - [id number] [employer] [id number] TRILOGY 6.5MM 30MM SELF TAP ACETABULAR CORTICAL SCREW BONE [employer] [id number] Left 1 [employer] [id number] TRILOGY 60MM 36MM 9.9MM PRIMARY MODULAR CUP LINER HIP STANDARD - S0. - [id number] [employer] [id number] TRILOGY 60MM 36MM 9.9MM PRIMARY MODULAR CUP LINER HIP STANDARD 0. [employer] [id number] Left 1 [employer] [id number] VERSYS 16MM 160MM PRIMARY COLLAR ALIGNMENT GUIDE HIP 45MM - S0. - [id number] [employer] [id number] VERSYS 16MM 160MM PRIMARY COLLAR ALIGNMENT GUIDE HIP 45MM 0. [employer] [id number] Left 1 [employer] [id number] TRILOGY IT 36MM HIP ACETABULAR +0MM 12/14 MEDIUM HEAD FEMORAL - S0. -[id number] [employer] [id number] TRILOGY IT 36MM HIP ACETABULAR +0MM 12/14 MEDIUM HEAD FEMORAL 0. [employer] [id number] Left 1 Blood/Blood Products Transfused: 0 mls Complications: None Condition on Discharge from the operating room was stable Chris Fernandez MD Date: 05/28/2018 Time: 9:59 AM documented in this encounter Plan of Treatment Not on file documented as of this encounter Procedures Procedure Name Priority Date/Time Associated Diagnosis Comments XR PELVIS 1 OR 2 VIEWS IP Routine 05/29/2018 9:00 AM CDT POTASSIUM, WHOLE BLOOD Routine 05/29/2018 6:30 AM CDT CBC WITHOUT DIFFERENTIAL Routine 05/28/2018 8:18 PM CDT TYPE AND SCREEN STAT 05/28/2018 8:18 PM CDT BASIC METABOLIC PANEL Routine 05/28/2018 8:18 PM CDT XR PELVIS ORTHO VIEW STAT 05/28/2018 10:58 AM CDT ARTHROPLASTY TOTAL HIP 05/28/2018 7:26 AM CDT Primary osteoarthritis of left hip documented in this encounter Results * XR Pelvis 1 or 2 Views (05/29/2018 9:00 AM CDT) Anatomical Region Laterality Modality Body, Pelvis N/A Computed Radiogr aphy 05/28/2018 10:4 8 AM CDT Addenda Addendum by Mike Bailey MD on 05/30/2018 6:44 AM CDT Radlink Electronically signed by: Mike Bailey M.D. Hilary Liang MD IMG XR PROCEDURES Edited R esult - Final * Potassium, whole blood (05/29/2018 6:30 AM CDT) Potassium, bld 4.1 3.3 - 4.9 mmol/L [facility] Blood specimen (specimen) 05/29/2018 6:30 AM CDT 05/29/2018 7:08 AM CDT Narrative [facility] - 05/29/2018 7:13 AM CDT Hilary Liang MD LAB BLOOD ORDERABLES Final Result [facility] Department [place] [address] * (ABNORMAL) CBC without differential (05/28/2018 8:18 PM CDT) WBC 12.0(H) 3.8 - 9.9 K/cumm [facility] Hgb 11.6(L) 13.0 - 17.5 g/dL [facility] Hct 35.2(L) 38.9 - 50.3 % [facility] Plt 150 150 - 400 K/cumm [facility] MPV 11.4 9.1 - 12.[address] [facility] RBC 3.70(L) 4.30 - 5.80 M/cumm [facility] MCV 95.1 81.3 - 96.[address] [facility] MCH 31.4 27.1 - 33.[address] [facility] MCHC 33.0 32.3 - 35.7 g/dL [facility] RDW CV 13.0 11.1 - 14.9 % [facility] RDW SD 45.1 35.7 - 48.[address] [facility] NRBC abs 0.00 0.00 - 0.01 K/cumm [facility] Blood specimen (specimen) 05/28/2018 8:18 PM CDT 05/28/2018 11:41 PM CDT Narrative [facility] - 05/28/2018 11:56 PM CDT us Hilary Liang MD LAB BLOOD ORDERABLES Final Result [facility] Department [place] [address] * (ABNORMAL) Basic metabolic panel (05/28/2018 8:18 PM CDT) Sodium 136 135 - 145 mmol/L [facility] Potassium, pl 5.1(H) 3.3 - 4.9 mmol/L [facility] Comment:Hemolyzed; (++); pot assium value may be falsely elevated by as much as 0.3 - 0.5 mmol/L. Suggest redraw and reanalysis. Chloride 102 97 - 110 mmol/L [facility] CO2 26 22 - 32 mmol/L [facility] Anion gap 8 2 - 15 mmol/L [facility] BUN 23 8 - 25 mg/dL [facility] Creatinine 1.06 0.80 - 1.30 mg/dL [facility] Glucose 96 70 - 199 mg/dL [facility] Comment: Interpretive Data Fasting glucose [...] 8.1(L) 8.5 - 10.3 mg/dL [facility] Blood specimen (specimen) 05/28/2018 8:18 PM CDT 05/28/2018 11:41 PM CDT Narrative [facility] - 05/29/2018 12:16 AM CDT Hilary Liang MD LAB BLOOD ORDERABLES Final Result Performing Organization Address [facility] Co de Phone Number [facility] Department [place] [address] * Type and screen (05/28/2018 8:18 PM CDT) Sheeba, indirect Negative [facility] ABO Rh B Positive [facility] Blood specimen (specimen) 05/28/2018 8:18 PM CDT 05/28/2018 11:44 PM CDT Narrative [facility] - 05/29/2018 1:15 AM CDT Has the patient had Daratumumab (Darzalex) in the past 6 months?->No Hilary Liang MD LAB BLOOD BANK TEST ORDERA BLES Final Result Performing Organization Address City/[facility]/ZIP Co de Phone Number [facility] Department [place] [address] * XR Pelvis Ortho View (05/28/2018 10:58 AM CDT) Anatomical Region Laterality Modality Body, Pelvis N/A Computed Radiogr aphy 05/28/2018 11:0 2 AM CDT Impressions 05/28/2018 11:02 AM CDT New left total hip arthroplasty in near-anatomic position. Electronically signed by: Anibal Hickey M.D. Narrative 05/28/2018 11:02 AM CDT EXAMINATION: Pelvis one or 2 views HISTORY: ??Left hip osteoarthritis FINDINGS: Portable radiographs of the pelvis are submitted for interpretation and compared to the prior examination on 03/27/2018. There is a new left total hip arthroplasty in near-anatomic position. Skin santiago and soft tissue gas are present about the left hip. 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 Procedure Note Anibal Hickey MD - 05/28/2018 EXAMINATION: Pelvis one or 2 views HISTORY: Left hip osteoarthritis FINDINGS: Portable radiographs of the pelvis are submitted for interpretation and compared to the prior examination on 03/27/2018. There is a new left total hip arthroplasty in near-anatomic position. Skin santiago and soft tissue gas are present about the left hip. 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 IMPRESSION: New left total hip arthroplasty in near-anatomic position. Electronically signed by: Anibal Hickey M.D. Hilary Liang MD IMG XR PROCEDURES Final Re sult documented in this encounter Visit Diagnoses Diagnosis Primary osteoarthritis of left hip- Primary Primary osteoarthritis of left hip Risk factors for obstructive sleep apnea HLD (hyperlipidemia) Other and unspecified hyperlipidemia Class 1 obesity in adult documented in this encounter Admitting Diagnoses Diagnosis Primary osteoarthritis of left hip documented in this encounter Administered Medications Inactive Administered Medications - up to 3 most recent administrations Medication Order MAR Action Action Date Dose Rate Site acetaminophen (TYLENOL) tablet 650 mg 650 mg, oral, Once, On Mon05/28/18 at 0800, For 1 dose, Pre-Op, Indications: PainIndications:Pain Given 05/28/2018 6:15 AM CDT 650 mg alfuzosin ER (UROXATRAL) extended release tablet 10 mg 10 mg, oral, Daily, First dose on Mon05/28/18 at 1300, Indications: 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Indications: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 Given 05/29/2018 9:18 AM CDT 10 mg aspirin enteric coated tablet 325 mg 325 mg, oral, 2 times daily, First dose on Mon05/28/18 at 1300, Phase I & Post-op Floor, Do not crush or chew, Indications: Deep Vein Thrombosis PreventionIndications:Deep Vein Thrombosis Prevention Given 05/29/2018 9:18 AM CDT 325 mg Given 05/28/2018 8:00 PM CDT 325 mg camphor-menthol (SARNA) 0.5-0.5 % lotion topical, Every 2 hours PRN, other, itching, Starting on Mon05/28/18 at 1222, Phase I & Post-op Floor, Apply to affected area: other, Indications: UrticariaIndications:Urticaria ceFAZolin (ANCEF) 2000 mg in 20 mL sterile water (premix) 2,000 mg, intravenous, at 400 mL/hr, Administer over 3 Minutes, Every 8 hours, First dose on Mon05/28/18 at 1300, For 2 doses, Phase I & Post-op Floor, Beginning 8 hours after last kunal-operative dose., Indications: Prophylaxis, SurgicalIndications:Prophylaxis, Surgical New Bag 05/28/2018 8:07 PM CDT 2,000 mg 400 mL/hr New Bag 05/28/2018 4:27 PM CDT 2,000 mg 400 mL/hr celecoxib (CeleBREX) capsule 100 mg 100 mg, oral, 2 times daily, First dose on Mon05/29/18 at 0900, Once toradol completed, Indications: Osteoarthritis, Postoperative Acute PainIndications:Osteoarthritis,Postoperative Acute Pain Given 05/29/2018 9:18 AM CDT 100 mg famotidine (PEPCID) tablet 20 mg 20 mg, oral, 2 times daily, First dose on Mon05/28/18 at 1300, Phase I & Post-op Floor, Indications: HeartburnIndications:Heartburn Given 05/29/2018 9:18 AM CDT 20 mg Given 05/28/2018 8:00 PM CDT 20 mg fentaNYL (SUBLIMAZE) preservative free injection 50 mcg 50 mcg, intravenous, Once as needed, breakthrough pain, Starting on Mon05/28/18 at 1000, For 1 dose, Phase I, Administer for uncontrolled or increasing pain while in PACU only. Then proceed to PACU 1st line analgesic., Indications: PainIndications:Pain Given 05/28/2018 10:20 AM CDT 50 mcg finasteride (PROSCAR) tablet 5 mg 5 mg, oral, Daily, First dose on Mon05/28/18 at 1300, Indications: 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Indications: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 Given 05/29/2018 9:19 AM CDT 5 mg HYDROcodone-acetaminophen (NORCO) 5-325 mg per tablet 1 tablet 1 tablet, oral, Every 4 hours PRN, 1st line for pain, Starting on Mon05/28/18 at 1222, Phase I & Post-op Floor, May repeat in 1 hour if pain is uncontrolled or increasing. Max 2 doses within 1 dosing interval., Indications: PainIndications:Pain Given 05/29/2018 9:28 AM CDT 1 tablet Given 05/28/2018 6:13 PM CDT 1 tablet Given 05/28/2018 12:52 PM CDT 1 tablet HYDROmorphone (DILAUDID) injection 0.2 mg 0.2 mg, intravenous, Every 4 hours PRN, 2nd line for pain, Starting on Mon05/28/18 at 1222, Phase I & Post-op Floor, May administer 1 hour after second dose of 1st line analgesic agent for uncontrolled or increasing pain., Indications: PainIndications:Pain HYDROmorphone (DILAUDID) injection 0.2 mg 0.2 mg, intravenous, Every 10 min PRN, 1st line for pain, Starting on Mon05/28/18 at 1000, Phase I, Notify Anesthesiologist if total PACU dose reaches 2 mg and pain score 5/10 or more., Indications: PainIndications:Pain Given 05/28/2018 11:00 AM CDT 0.2 mg Given 05/28/2018 10:50 AM CDT 0.2 mg Given 05/28/2018 10:40 AM CDT 0.2 mg ketorolac (TORADOL) injection 15 mg 15 mg, intravenous, Every 6 hours, First dose on Mon05/28/18 at 1300, For 2 doses, Phase I & Post-op Floor, Indications: PainIndications:Pain Given 05/28/2018 8:00 PM CDT 15 mg Given 05/28/2018 4:28 PM CDT 15 mg Lactated Ringer's (LR) bolus 1,000 mL 1,000 mL, intravenous, Once, On Mon05/28/18 at 0800, For 1 dose, Pre-Op Rate/Dose Change 05/28/2018 7:07 AM CDT 1,000 mL 0 mL/hr New Bag 05/28/2018 6:15 AM CDT 1,000 mL Lactated Ringer's (LR) infusion 30 mL/hr, intravenous, Continuous, Starting on Mon05/28/18 at 0800, Pre-Op New Bag 05/28/2018 8:33 AM CDT New Bag 05/28/2018 7:25 AM CDT New Bag 05/28/2018 7:07 AM CDT 30 mL/hr 30 mL/hr lovastatin (MEVACOR) tablet 20 mg 20 mg, oral, Daily, First dose on Mon05/28/18 at 1300, Take with food, Indications: hyperlipidemiaIndications:hyperlipidemia Given 05/29/2018 9:18 AM CDT 20 mg ondansetron ODT (ZOFRAN-ODT) disintegrating tablet 4 mg 4 mg, oral, Every 6 hours PRN, nausea, vomiting, Starting on Mon05/28/18 at 1222, Phase I & Post-op Floor, Indications: nausea and vomitingIndications:nausea and vomiting polyethylene glycol (MIRALAX) packet 17 g 17 g, oral, Daily PRN, constipation, Starting on Mon05/28/18 at 1222, Phase I & Post-op Floor, Indications: constipationIndications:constipation senna-docusate (PERICOLACE) 8.6-50 mg per tablet 2 tablet 2 tablet, oral, 2 times daily, First dose on Mon05/28/18 at 1300, Phase I & Post-op Floor, Hold for diarrhea., Indications: constipationIndications:constipation Given 05/29/2018 9:17 AM CDT 2 table ts Given 05/28/2018 8:00 PM CDT 2 tablets sodium chloride 0.9% flush 0.5-20 mL 0.5-20 mL, intra-catheter, Every 8 hours scheduled, First dose on Mon05/28/18 at 1400, Phase I & Post-op Floor, Flush volume based on line type and size. , Indications: FlushingIndications:Flushing Given 05/29/2018 6:42 AM CDT 10 mL Given 05/28/2018 8:00 PM CDT 10 mL sodium chloride 0.9% flush 0.5-20 mL 0.5-20 mL, intra-catheter, As needed, line care, Starting on Mon05/28/18 at 1222, Phase I & Post-op Floor, Flush volume based on line type and size. Flush before and after each use. , Indications: FlushingIndications:Flushing sodium chloride 0.9% infusion 100 mL/hr, intravenous, Continuous, Starting on Mon05/28/18 at 1045, Phase I & Post-op Floor New Bag 05/28/2018 10:56 AM CDT 100 mL/hr 100 mL/hr documented in this encounter Discontinued Medications Medication Sig Discontinue Reason Start Date End Da te aspirin 81 mg tabletIndications:ON HOLD Take 81 mg by mouth daily. Stop Taking at Discharge 07/31/2007 05/29/2018 glucosamine-chondroit in 250-200 mg tablet Take 1 tablet by mouth 2 times daily. Stop Taking at Discharge 05/29/2018 multivitamin with minerals tablet Take 2 tablets by mouth daily. Stop Taking at Discharge 05/29/2018 UNABLE TO FIND Take 1 each by mouth every morning. Med Name: prevegen Stop Taking at Discharge 05/29/2018 mupirocin (BACTROBAN) 2 % ointment Apply topically 2 (two) times a day for 5 days. APPLY TO NOSTRILS TWICE A DAY FOR 5 DAYS PRIOR TO SURGERY. Stop Taking at Discharge 05/23/2018 05/29/2018 documented as of this encounter Active and Recently Administered Medications Times are shown in CDT. 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 1245 (Canceled Entry - Provider: Mike Wilkins RN) 0918 (Given - Provider: Mike Wilkins RN) aspirin enteric coated tablet 325 mg 325 mg, oral, 2 times daily, First dose on Mon05/28/18 at 1300, Phase I & Post-op Floor, Do not crush or chew, Indications: Deep Vein Thrombosis Prevention 1243 (Canceled Entry - Provider: Mike Wilkins RN)1999 (Given - Provider: Jose Mott) 917 (Given - Provider: Mike Wilkins RN) ceFAZolin (ANCEF) 2000 mg in 20 mL sterile water (premix) (COMPLETED) 2,000 mg, intravenous, at 400 mL/hr, Administer over 3 Minutes, Once, On Mon05/28/18 at 0800, For 1 dose, Pre-Op, Administer within 60 minutes of incision., Indications: Prophylaxis, Surgical 08 (New Bag - Provider: Dorina Avalos CRNA)809 (Stopped - Provider: Dorina Avalos CRNA - Comment: 2000mg in 20mLs) ceFAZolin (ANCEF) 2000 mg in 20 mL sterile water (premix) (COMPLETED) 2,000 mg, intravenous, at 400 mL/hr, Administer over 3 Minutes, Every 8 hours, First dose on Mon05/28/18 at 1300, For 2 doses, Phase I & Post-op Floor, Beginning 8 hours after last kunal-operative dose., Indications: Prophylaxis, Surgical 1627 (New Bag - Provider: Mike Wilkins RN)2006 (New Bag - Provider: Jose Mott) celecoxib (CeleBREX) capsule 100 mg 100 mg, oral, 2 times daily, First dose on Mon05/29/18 at 0900, Once toradol completed, Indications: Osteoarthritis, Postoperative Acute Pain 917 (Given - Provid er: Mike Wilkins RN) famotidine (PEPCID) tablet 20 mg 20 mg, oral, 2 times daily, First dose on Mon05/28/18 at 1300, Phase I & Post-op Floor, Indications: Heartburn 1243 (Canceled Entry - Provider: Mike Wilkins RN)1999 (Given - Provider: Jose Mott) 917 (Given - Provider: Mike Wilkins RN) finasteride (PROSCAR) tablet 5 mg 5 mg, oral, Daily, First dose on Mon05/28/18 at 1300, Indications: 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 1244 (Canceled Entry - Provider: Mike Wilkins RN) 0919 (Given - Provider: Mike Wilkins RN) ketorolac (TORADOL) injection 15 mg (COMPLETED) 15 mg, intravenous, Once, On Mon05/28/18 at 0800, For 1 dose, Pre-Op, INTRA-OP Give at time of skin closure, Indications: Postoperative Pain Management 0933 (Given - Provider: Dorina Avalos CRNA) ketorolac (TORADOL) injection 15 mg (COMPLETED) 15 mg, intravenous, Every 6 hours, First dose on Mon05/28/18 at 1300, For 2 doses, Phase I & Post-op Floor, Indications: Pain 1628 (Given - Provider: Mike Wilkins RN)1999 (Given - Provider: Jose Mott) Lactated Ringer's (LR) bolus 1,000 mL (COMPLETED) 1,000 mL, intravenous, Once, On Mon05/28/18 at 0800, For 1 dose, Pre-Op 0615 (New Bag - Provider: Yajaira Tan RN)0707 (Rate/Dose Change - Provider: Bao Harden RN) lovastatin (MEVACOR) tablet 20 mg 20 mg, oral, Daily, First dose on Mon05/28/18 at 1300, Take with food, Indications: hyperlipidemia 1244 (Canceled Entry - Provider: Mike Wilkins RN) 0918 (Given - Provider: Mike Wilkins RN) senna-docusate (PERICOLACE) 8.6-50 mg per tablet 2 tablet 2 tablet, oral, 2 times daily, First dose on Mon05/28/18 at 1300, Phase I & Post-op Floor, Hold for diarrhea., Indications: constipation 1244 (Canceled Entry - Provider: Mike Wilkins RN)1999 (Given - Provider: Jose Mott) 09 (Given - Provider: Mike Wilkins RN) sodium chloride 0.9% flush 0.5-20 mL 0.5-20 mL, intra-catheter, Every 8 hours scheduled, First dose on Mon05/28/18 at 1400, Phase I & Post-op Floor, Flush volume based on line type and size. , Indications: Flushing 1244 (Canceled Entry - Provider: Mike Wilkins RN)2000 (Given - Provider: Jose Mott) 0642 (Given - Provider: Jose Mott)1345 (Canceled Entry - Provider: Mike Wilkins RN) tranexamic acid (TXA) 1,000 mg in sodium chloride 0.9% 100 mL (COMPLETED)(Linked Group 1) 1,000 mg, intravenous, Once, On Mon05/28/18 at 0630, For 1 dose, Pre-Op, INTRA-OP Infuse over 10 minutes prior to skin incision, Indications: Reduction of Perioperative Blood Loss 0810 (New Bag - Provider: Dorina Avalos CRNA) tranexamic acid (TXA) 1,000 mg in sodium chloride 0.9% 100 mL (COMPLETED)(Linked Group 1) 1,000 mg, intravenous, Once, On Mon05/28/18 at 0630, For 1 dose, Pre-Op, INTRA-OP Infuse over 10 minutes at the start of wound closure., Indications: Reduction of Perioperative Blood Loss 0922 (New Bag - Provider: Dorina Avalos CRNA) Continuous Medication Order 05/27/2018 05/28/2018 05/29/2018 Lactated Ringer's (LR) infusion (CANCELED) 30 mL/hr, intravenous, Continuous, Starting on Mon05/28/18 at 0800, Pre-Op 0707 (New Bag - Provider: Isaiah Harden RN)0725 (New Bag - Provider: Dorina Avalso CRNA)0832 (Anesthesia Volume Adjustment - Provider: Dorina Avalos CRNA)0833 (New Bag - Provider: Dorina Avalos CRNA)0945 (Anesthesia Volume Adjustment - Provider: Dorina Avalos CRNA)1146 (Stopped - Provider: Genoveva Rock RN) Lactated Ringer's (LR) infusion 100 mL/hr, intravenous, Continuous, Starting on Mon05/28/18 at 1045, Phase I 1244 (Canceled Entry - Provider: Mike Wilkins RN) sodium chloride 0.9% infusion 100 mL/hr, intravenous, Continuous, Starting on Mon05/28/18 at 1045, Phase I & Post-op Floor 1056 (New Bag - Provider: Genoveva Rock, RN) PRN Medication Order 05/27/2018 05/28/2018 05/29/2018 bupivacaine-EPINEPHrine (MARCAINE with EPI) 30 mL, ketorolac (TORADOL) 15 mg solution (CANCELED) As needed, Starting on Mon05/28/18 at 0826, Intra-Op 0826 (Given - Provider: Hilary Liang MD - Comment: left hip. time reflects time charted) camphor-menthol (SARNA) 0.5-0.5 % lotion topical, Every 2 hours PRN, other, itching, Starting on Mon05/28/18 at 1222, Phase I & Post-op Floor, Apply to affected area: other, Indications: Urticaria fentaNYL (SUBLIMAZE) preservative free injection 50 mcg (COMPLETED) 50 mcg, intravenous, Once as needed, breakthrough pain, Starting on Mon05/28/18 at 1000, For 1 dose, Phase I, Administer for uncontrolled or increasing pain while in PACU only. Then proceed to PACU 1st line analgesic., Indications: Pain 1020 (Given - Provider: Genovvea Rock, RN) HYDROcodone-acetaminophen (NORCO) 5-325 mg per tablet 1 tablet 1 tablet, oral, Every 4 hours PRN, 1st line for pain, Starting on Mon05/28/18 at 1222, Phase I & Post-op Floor, May repeat in 1 hour if pain is uncontrolled or increasing. Max 2 doses within 1 dosing interval., Indications: Pain 1252 (Given - Provider: Mike Wilkins RN)1813 (Given - Provider: Mike Wilkins RN) 0928 (Given - Provider: Mike Wilkins RN) HYDROmorphone (DILAUDID) injection 0.2 mg 0.2 mg, intravenous, Every 4 hours PRN, 2nd line for pain, Starting on Mon05/28/18 at 1222, Phase I & Post-op Floor, May administer 1 hour after second dose of 1st line analgesic agent for uncontrolled or increasing pain., Indications: Pain HYDROmorphone (DILAUDID) injection 0.2 mg (CANCELED) 0.2 mg, intravenous, Every 10 min PRN, 1st line for pain, Starting on Mon05/28/18 at 1000, Phase I, Notify Anesthesiologist if total PACU dose reaches 2 mg and pain score 5/10 or more., Indications: Pain 1020 (Given - Provider: Genoveva Rock, RN)1030 (Given - Provider: Genoveva Rock, RN)1040 (Given - Provider: Genoveva Rock, RN)1050 (Given - Provider: Genoveva Rock, RN)1100 (Given - Provider: Genoveva Rock, RN) ondansetron ODT (ZOFRAN-ODT) disintegrating tablet 4 mg(Linked Group 2) 4 mg, oral, Every 6 hours PRN, nausea, vomiting, Starting on Mon05/28/18 at 1222, Phase I & Post-op Floor, Indications: nausea and vomiting polyethylene glycol (MIRALAX) packet 17 g 17 g, oral, Daily PRN, constipation, Starting on Mon05/28/18 at 1222, Phase I & Post-op Floor, Indications: constipation sodium chloride 0.9 % irrigation (CANCELED) As needed, Starting on Mon05/28/18 at 0827, Intra-Op 0827 (Given - Provider: Hilary Liang MD - Comment: irrigation via simpulse. time reflects time charted)0828 (Given - Provider: Hilary Liang MD - Comment: irrigation on field. time reflects time charted) sodium chloride 0.9% flush 0.5-20 mL 0.5-20 mL, intra-catheter, As needed, line care, Starting on Mon05/28/18 at 1222, Phase I & Post-op Floor, Flush volume based on line type and size. Flush before and after each use. , Indications: Flushing Linked Groups Order Group 1: tranexamic acid (TXA) 1,000 mg in sodium chloride 0.9% 100 mL (COMPLETED)Jump to med 1,000 mg, intravenous, Once, On Mon05/28/18 at 0630, For 1 dose, Pre-Op, INTRA- OP Infuse over 10 minutes prior to skin incision, Indications: Reduction of Perioperative Blood Loss And tranexamic acid (TXA) 1,000 mg in sodium chloride 0.9% 100 mL (COMPLETED)Jump to med 1,000 mg, intravenous, Once, On Mon05/28/18 at 0630, For 1 dose, Pre-Op, INTRA- OP Infuse over 10 minutes at the start of wound closure., Indications: Reduction of Perioperative Blood Loss Group 2: ondansetron ODT (ZOFRAN-ODT) disintegrating tablet 4 mgJump to med 4 mg, oral, Every 6 hours PRN, nausea, vomiting, Starting on Mon05/28/18 at 1222, Phase I & Post-op Floor, Indications: nausea and vomiting Or ondansetron (ZOFRAN) injection 4 mg (CANCELED) 4 mg, intravenous, Every 6 hours PRN, nausea, vomiting, if not tolerating PO, Starting on Mon05/28/18 at 1222, Phase I & Post-op Floor, Indications: nausea and vomiting documented in this encounter Orders Medications Ordered That Martínez ht Not Have Been Administered Count Last Ordered Date First Ordered Date acetaminophen (TYLENOL) tablet 1,000 mg 1 0 05/28/2018 bupivacaine-EPINEPHrine (MAR VAUGHN with EPI) 30 mL, ketorolac (TORADOL) 15 mg solution 1 05/28/2018 camphor-menthol (SARNA) 0.5-0.5 % lotion 1 05/28/2018 ceFAZolin (ANCEF) 2000 mg in 20 mL sterile water (premix) 1 05/28/2018 diphenhydrAMINE (BENADRYL) i njection 12.5 mg 1 05/28/2018 fentaNYL (SUBLIMAZE) preserv ative free injection 25 mcg 1 05/28/2018 HYDROmorphone (DILAUDID) injection 0.2 mg 1 05/28/2018 ketorolac (TORADOL) injection 15 mg 1 05/28 Lactated Ringer's (LR) infusion 3 8 naloxone (NARCAN) 0.4 mg/mL injection 0.04-0.4 mg 1 05/28/2018 ondansetron (ZOFRAN) injection 4 mg 2 05/28 ondansetron ODT (ZOFRAN-ODT) disintegrating tablet 4 mg 1 05/28/2018 polyethylene glycol (MIRALAX) packet 17 g 1 05/28/2018 prochlorperazine (COMPAZINE) injection 10 mg 1 05/28/2018 sodium chloride 0.9 % irrigation 1 05/28/20 18 sodium chloride 0.9% flush 0.5-20 mL 4 05/03 tranexamic acid (TXA) 1,000 mg in sodium chloride 0.9% 100 mL 2 05/28/2018 General Supply Count Last Ordered Date First Or dered Date WALKER 1 05/29/2018 Diet Count Last Ordered Date First Orde red Date ADULT DISCHARGE DIET 1 05/29/2018 Nursing Count Last Ordered Date First Orde red Date DISCHARGE ACTIVITY 1 05/29/2018 DISCHARGE CALL PROVIDER 11 05/29/2018 DISCHARGE DRESSING 1 05/29/2018 DISCHARGE INSTRUCTIONS 3 05/29/2018 WEIGHT BEARING TOLERATED 1 05/29/2018 Admission Count Last Ordered Date First Orde red Date ASSIGN PATIENT STATUS 2 05/28/20182017 Precaution Count Last Ordered Date First Orde red Date HIP PRECAUTIONS 1 05/29/2018 documented in this encounter Care Teams Web Services Developer Relationship Specialty Start Date End Date Bao Pierre MD [address] [address] PCP - General 12/22/16 Patricia Tucker, RN [address] [address] [facility] [employer] Post Installer Supervisor 05/28/18 1 10/26/17 documented as of this encounter
--- OUTSIDE RECORDS SUMMARY | 2024-10-01 08:48 | XMS_ITS | Encounter Summary ---
Author Organization [facility] Address [address] [place] [address] Phone Care Team Providers Care Gre Tutor Name Role Phone Bao Pierre MD Primary Care Provider [phone] Encounter Details Date Type Department Care Team (Late st Contact Info) Description 04/05/2019 Telephone [facility] Orthopaedic Surgery [address] [place] [address] Ange Ramires PA [address] 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 He feels he is improving at this time and does not want to do an injection at this time. He will keep our office aware of how he is doing and if has a set back he will give our office a call. * Telephone Encounter - Diana Cody CPhT - 04/10/2019 1:09 PM CDT Pt called was giving recommendation. Pt is awaiting a call to schedule inj. * Telephone Encounter - Ange Ramires PA - 04/09/2019 4:07 PM CDT We can try bilateral L4-5 facet joint injections as his pain is in the back only, no leg pain. Please contact pt and ask if he'd like to schedule, if so then put him on with whoever is first available thanks * Telephone Encounter - Diana Cody CPhT - 04/09/2019 8:39 AM CDT Pt calling to follow up on note below. * Telephone Encounter - Aristides Christopher CMA - 04/08/2019 3:56 PM CDT Please review * Telephone Encounter - Konrad Zamorano - 04/05/2019 10:38 AM CDT Pt called with update on meds. Pt has not had any improvement from med, pt having severe pain with any activity. Pt is at [phone]. documented in this encounter Plan of Treatment Not on file documented as of this encounter Visit Diagnoses Not on filedocumented in this encounter Care Teams Gre Tutor Relationship Specialty Start Date End Date Bao Pierre MD [address] [address] PCP - General 12/22/16 documented as of this encounter
--- OUTSIDE RECORDS SUMMARY | 2024-10-01 08:48 | XMS_ITS | Encounter Summary ---
Author Organization [facility] Address [address] [place] [address] Care Team Providers Care Hall Porter Name Role Phone Bao Pierre MD Primary Care Provider [phone] Reason for Visit * Reason Comments Follow-Up Call 90 Days Encounter Details Date Type Department Care Team (Late st Contact Info) Description 08/27/2018 BP Post-Surgical [facility] CASE MANAGEMENT [address] [place] [address] Patricia Tucker RN [address] [address] Social History Tobacco Use Types Packs/Day Years Used Date Smoking Tobacco: Former Pipe 2015 Smokeless Tobacco: Never Comments:5-6 times a day Alcohol Use Standard Drinks/Week Comments No 0 (1 standard drink = 0.6 oz pur e alcohol) Sex and Gender Information Value Date Recorded Sex Assigned at Not on file 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 He reports doing well. He has completed outpt therapy and is ambulating without device. Denies pain but does report some initial stiffness upon standing or getting out of car.No falls, injuries, illnesses or ED visits. Pt was notified that he was being discharged from OCM services and no further calls are scheduled but OCM or coordinator are still available for questions or concerns. RT FREIGHT SPECIALIST documented in this encounter Plan of Treatment Not on file documented as of this encounter Visit Diagnoses Not on filedocumented in this encounter Care Teams Hall Porter Relationship Specialty Start Date End Date Bao Pierre MD [address] [address] PCP - General 12/22/16 documented as of this encounter
--- OUTSIDE RECORDS SUMMARY | 2024-10-01 08:48 | XMS_ITS | Encounter Summary ---
Author Organization [facility] Healthcare Address [address] [place] [address] Care Team Providers Care Physical Therapy Instructor Name Role Phone Bao Pierre MD Primary Care Provider [phone] Patricia Tucker RN Unavailable Encounter Details Date Type Department Care Team (Late st Contact Info) Description 05/28/2018 7:25 AM CDT Anesthesia Event [facility] Operating Room [address] [place] [address] Naseem Torres MD [address] [place] [address] Anesthesia Record Procedure Summary Procedure Name Responsible Anesthesiologist Anesthesia Start Time Anesthesia Stop Time ARTHROPLASTY LEFT TOTAL HIP (Left: Hip) Naseem Torres MD 05/28/18 0725 05/28/18 1012 Events Date Time Event Comment 05/28/2018 0711 0725 An Start 0726 An Start Data 0726 In Room 0745 Converted to GA Pt had previ ous lumbar fusion surgery. After multiple attempts to place spinal anesthesia, we aborted the spinal and converted to general anesthesia. This plan was discussed with patient in preop area as a potential back up plan for spinal anesthesia 0746 An Induction The patient was reevaluated immediately before moderate or deep sedation use and before anesthesia induction. 0748 An Intubation 0751 Anesthesia Ready 0813 Proc Start 0813 Incision Start 0957 Proc Fin 1001 An Extubation 1004 Out of Room 1012 Handoff to RN I completed my handoff to the receiving nurse during which we: 1. Patient identified 2. Responsible provider identified 3. Pertinent medical history reviewed 4. Procedure type and surgical course discussed 5. Intraoperative anesthetic management and any significant issues discussed 6. Expectations and concerns for postop period discussed 7. Questions solicited from receiving nurse 8. Patient disposition at the time of handoff: PACU 1012 An Stop Meds Name Total fentaNYL 100 mcg fentaNYL (SUBLIMAZE) preservative free i njection 25 mcg 0 mcg propofol 120 mg succinylcholine 100 mg ePHEDrine 10 mg glycopyrrolate 0.2 mg tranexamic acid (TXA) 1,000 mg in sodium chloride 0.9% 100 mL 1,000 mg tranexamic acid (TXA) 1,000 mg in sodium chloride 0.9% 100 mL 1,000 mg famotidine PF 20 mg ondansetron PF (ZOFRAN) 2 mg/mL injectio n 4 mg HYDROmorphone 2 mg/mL 1.2 mg ketorolac (TORADOL) injection 15 mg 15 m g ceFAZolin (ANCEF) 2000 mg in 20 mL steri le water (premix) 20 mL Lactated Ringer's (LR) infusion 1,200 mL * Agents Name O2% N2O O2 N2O Air Sevoflurane Inspired Sevoflurane * Blood No blood administrations on file. Lines, Drains, and Airways Type Details Placement Removal RETIRED Wound 05/23/18; 1056; Abrasion(s); Left; 06/09/18; 201605/23/18 1056 by Pa Cárdenas RN 06/09/182016 by Vianney Cruz RN Peripheral IV Placement Date: 05/28/18; Placement Time: 06; Catheter Size: 18 G; Orientation: Left; Location: Wrist; Site Prep: Chlorhexidine; Technique: Anatomical landmarks; Inserted by: Bao Harden RN; Insertion Attempts: 1; Patient Tolerance: Tolerated well; Removal Date: 06/09/18; Removal Time: 201605/28/18 0609 by Yajaira Tan RN 06/09/182016 by Vianney Cruz RN ETT Placement Date: 05/28/18; Placement Time: 0750 (created via procedure documentation); Mask Ventilation: 2; Technique: Direct laryngoscopy; Type: ETT - single; Single Lumen Tube Size: 7.5 mm; Cuffed: Yes; Laryngoscope: Valerio; Blade Size: 4; Location: Oral; Grade View: Grade I; Insertion Attempts: 1; Placement Verification: Auscultation, Capnometry, Palpation of cuff; Removal Date: 05/28/18; Removal Time: 1001 05/28/18 0750 by Dorina Avalos CRNA 05/28/18 1001 by Dorina Avalos CRNA RETIRED Surgical Site 05/28/18; 0834; Le ft; Frontal Region; left total hip; 09/03/24 (Retired LDA, Removed/Completed by [facility] [employer] with LDA Utility); 1213 (Retired LDA, Removed/Completed by [facility] [employer] with LDA Utility) 05/28/18 0834 by Mike Lozano RN 09/03/24 1213 by Discharge Provider, Automatic documented in this encounter Social History Tobacco Use Types Packs/Day Years Used Date Smoking Tobacco: Former Pipe 1 2015 Smokeless Tobacco: Never Comments:5-6 times a day Alcohol Use Standard Drinks/Week Comments No 0 (1 standard drink = 0.6 oz pur e alcohol) Sex and Gender Information Value Date Recorded Sex Assigned at Not on file 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 Gender Identity Not on file Sexual Orientation Straight 10/15/2019 10 :34 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 documented as of this encounter OR Notes * Anesthesia Postprocedure Evaluation - Ninfa Estrada MD - 05/28/2018 11:36 AM CDT Patient: Frandy Alvares Procedure Summary Date: 05/28/18 Room / Location: [facility] OR POD 2 ROOM 202 / [facility] OR POD 2 Anesthesia Start: 724 Anesthesia Stop: 1011 Procedure: ARTHROPLASTY LEFT TOTAL HIP (Left Hip) Diagnosis: Primary osteoarthritis of left hip (Primary osteoarthritis of left hip [M16.12]) Surgeon: Hilary Liang MD Responsible Provider: Naseem Torres MD Anesthesia Type: spinal, PNB - single shot ASA Status: 2 Anesthesia Type: spinal, PNB - single shot Last vitals BP 149/67 (05/28/18 1120) Temp Pulse 91 (05/28/18 1120) Resp 16 (05/28/18 1120) SpO2 100 % (05/28/18 1120) Anesthesia Post Evaluation Patient location during evaluation: floor Patient participation: complete - patient participated Level of consciousness: fully awake Pain score: 3 Pain management: adequate Airway patency: adequate Evidence of recall: no Anesthetic complications: no Cardiovascular status: acceptable Respiratory status: acceptable Hydration status: acceptable Pt is: normothermic Nausea/Vomiting status: none * Anesthesia Postprocedure Evaluation - Long Escobedo MD - 05/28/2018 11:02 AM CDT Patient: Frandy Alvares Procedure Summary Date: 05/28/18 Room / Location: [facility] OR POD 2 ROOM 202 / [facility] OR POD 2 Anesthesia Start: 724 Anesthesia Stop: 1011 Procedure: ARTHROPLASTY LEFT TOTAL HIP (Left Hip) Diagnosis: Primary osteoarthritis of left hip (Primary osteoarthritis of left hip [M16.12]) Surgeon: Hilary Liang MD Responsible Provider: Naseem Torres MD Anesthesia Type: spinal, PNB - single shot ASA Status: 2 Anesthesia Type: spinal, PNB - single shot Last vitals BP 148/83 (05/28/18 1050) Temp 36.6 ??C (97.9 ??F) (05/28/18 1012) Pulse 89 (05/28/18 1100) Resp 11 (05/28/18 1100) SpO2 100 % (05/28/18 1100) Anesthesia Post Evaluation Patient location during evaluation: PACU Patient participation: complete - patient participated Level of consciousness: fully awake and follows simple commands Pain score: 2 Pain management: adequate Airway patency: adequate and patent Evidence of recall: no Anesthetic complications: no Cardiovascular status: acceptable and hemodynamically stable Respiratory status: acceptable Hydration status: euvolemic Pt is: normothermic Nausea/Vomiting status: none Cosigned by Ninfa Estrada MD at 05/28/2018 12:03 PM CDT * Anesthesia Procedure Notes - Dorina Avalos CRNA - 05/28/2018 8:54 AM CDT Associated Order(s): ANESTHESIA SPINAL BLOCK Spinal Block Patient location: OR Start time: 05/28/2018 7:35 AM End time: 05/28/2018 7:45 AM Reason for block: primary anesthetic Staff: Supervising anesthesiologist: NASEEM TORRES Placed by: PRIMARY HEALTH ORGANISATION MANAGER:DORINA AVALOS Procedure prep: Preprocedure checklist: patient identified, procedure contraindications assessed, site marked, procedure consent, surgical consent, IV checked, risks, benefits and alternatives discussed, monitors and equipment checked and timeout performed Patient position: sitting Procedure performed while patient: awake Monitoring: ECG, oximetry, blood pressure and capnography Supplemental O2: facemask Prep solution: chlorhexadine/alcohol PPE: provider hat/mask, sterile gloves and sterile drape Skin infiltrated with lidocaine 1%: yes Spinal: Approach: midline (tried both midline and right paramedian) Introducer used: no Location: L3-4 Number of attempts: 3 Other sites attempted: right paramedian L2-3 Spinal Needle: Needle type: Quincke Needle gauge: 22 G Needle length: 9 cm Assessment: Events: failed spinal When positioning pt in sitting position, anesthesia noticed a scar on patients back. After inquiring about the scar, pt stated he had lumbar stenosis and had surgery about 3 years ago. Pt did not know what kind of surgery or if metal was implanted into his back during surgery. Attempted [address] spinal at different locations without success. In preop, pt was advised that general anesthesia was back up plan to spinal placement. Pt was instructed that we aborted the spinal and are converting to general anesthesia. * Anesthesia Procedure Notes - Dorina Avalos CRNA - 05/28/2018 8:04 AM CDT Associated Order(s): ANESTHESIA INTUBATION Airway Patient location: OR Urgency: elective Date/time: 05/28/2018 7:50 AM Indications for airway management: anesthesia and airway protection Staff: Supervising provider: NASEEM TORRES Placed by: PRIMARY HEALTH ORGANISATION MANAGER: DORINA AVALOS Emergent airway documentation: Risks and benefits discussed: yes Consent obtained: yes Consent given by: patient Airway prep: Preoxygenated: yes Patient position: sniffing Mask difficulty assessment: 2 - vent by mask + OA or adjuvant Spontaneous ventilation during airway: absent Sedation level during airway: GA Final airway details: Final airway type: endotracheal airway Tube type: ETT ETT size: 7.5 mm Cuffed: yes Technique used for successful ETT placement: direct laryngoscopy Devices/Methods used in placement: intubating stylet Insertion site: oral Blade type: Valerio Blade size: 4 Cormack-Lehane (direct): grade I - full view of glottis Cuff volume: 7 mL Cuff inflated with: air ETT to lips: 22 cm Placement verified by: auscultation, CO2 detection and palpation of cuff Airway secured with: silk tape Number of attempts: 1 * Anesthesia Preprocedure Evaluation - Naseem Torres MD - 05/23/2018 11:32 AM CDT [facility] Planning Preoperative Evaluation Record CPAP Clinic at [facility] ([facility]) Anesthesia Evaluation Procedure(s): ARTHROPLASTY LEFT TOTAL HIP HISTORY HPI Frandy Alvares is a 82 y.o. male who is being evaluated prior to undergoing left hip arthroplasty for OA. Past Medical History Information obtained from: patient and chart. Neurological Pertinent negatives: seizures; neuromuscular disease; CVA/stroke; TIA; CEA; ICA stenosis; dementia/mild cognitive impairment and carotid artery stent Cardiovascular + Hyperlipidemia Pertinent negatives: hypertension ; CAD ; LA ; CABG ; valvular heart disease; valve replacement; atrial fibrillation; arrhythmia; pacemaker/ICD; PVD; DVT/PE; negative for CHF; drug-eluting stent(s); bare metal stent(s) and coronary angioplasty Respiratory Pertinent negatives: COPD; asthma; sleep apnea (DONTA); pulmonary hypertension; no O2 use outside thehospital and non-smoker Hepatic / Heme Pertinent negatives: liver disease; history of anemia; history of thrombocytopenia and history of Sheeba positive Gastrointestinal Pertinent negatives: GERD and hiatal hernia Renal / Pertinent negatives: renal disease; dialysis and nephrolithiasis Musculoskeletal/Pain + Chronic pain (left hip pain 2/2 OA) + Osteoarthritis (left hip) Pertinent negatives: chronic opioid use and previous treatment for opioid use disorder Endocrine / Other + Obesity (BMI >30) Pertinent negatives: diabetes mellitus; thyroid disease; cancer history; rheumatological disease and transplanted organ Functional Capacity Functional capacity: <4 METs Comments: Pt uses wheeled walker for ambulation. Pt denies SOB with exertion. Review of Systems + chronic pain (left hip pain 2/2 OA) + vision loss (wears corrective lenses) Pertinent negatives: productive cough; wheezing; SOB; recent cold/flu; fever; chest pain; palpitations; orthopnea; pedal edema; PND; Sickle Cell disease/trait; previous transfusion; transfusion reaction; melena/hematochezia; easy bruising; bleeding problems; syncope; dizziness; muscle weakness; numb ness/tingling; hard of hearing; heartburn; nausea; dysphagia; diarrhea; dentures/partials; chipped/loose teeth; abdominal pain; diaphoresis and no unexpected weight change PAT Summary and Plans Cardiac risk classification of planned procedure: intermediate cardiac risk. Preoperative assessment status: lab tests ordered. Initial preoperative evaluation discussed with: EDWIGE MILLS Additional comments: Frandy Alvares is a 82 y.o. male who is being evaluated prior to undergoing anintermediate cardiac risk surgery. Revised Cardiac Risk Index factors are (none) for a total RCRI of 0 out of 6. Functional capacity is <4 METs (specifically:Pt uses wheel chair for ambulation 2/2OA). Obstructive sleep apnea (DONTA) screening status is STOP-Bang=4 suggesting moderate risk for DONTA, bicarbonate value pending. The patient is at elevated risk for obstructive sleep apnea (DONTA) per STOP-BANG screening questionnaire results. Patient informed of the possibility that they have undiagnosed DONTA, which may increasetheir risk for perioperative respiratory events. Patient also informed of the possible long-term health problems associated with DONTA. Because we do not feel that preoperative DONTA testing is likely tooutweigh the downsides of delaying surgery, we have recommended that the patient talk to their primary doctor or other clinician after surgery about getting tested for DONTA. Blood bank needs for day of procedure: Type and Screen only Pending labs/tests include: CBC, CMP, 14T&S and Urinalysis flex Pt has stopped ASA 2 months ago. Pt takes ASA over the counter for hearthealth only. Pt was instructed to restart medication until after surgery. Pt was a moderate mask ventilation for lumbar decompression at [facility] 2014 but was an easy airway attempt. Preoperative evaluation performed by Herlinda Lopez NP on 05/23/18 at 12:16 PM.. Follow up note Labs reviewed and are significant for a total CO2 of 28. With a STOP-Bang score of 4, this qualifies the patient as high risk for severe DONTA. DONTA order set initiated. Surgeon's office reviews laboratory results independently. CPAP process complete. Follow-up completed by: Ariadne Mas NP on 05/24/18 at 9:23 AM Patient Active Problem List Diagnosis ??? Primary osteoarthritis of left hip Past Medical History: Diagnosis Date ??? Arthritis ??? Eye disease ??? Hypercholesteremia ??? Personal history of other diseases of the circulatory system History of hypertension - (Added by TW Conv) ??? Personal history of other diseases of the respiratory system History of asthma - (Added by TW Conv) Past Surgical History: Procedure Laterality Date ??? BACK SURGERY ??? [place] REMOVAL GALLBLADDER Cholecystectomy - (Added by TW Conv) ??? SHOULDER SURGERY Shoulder Surgery Right - (Added by TW Conv) Allergies Allergen Reactions ??? Epinephrine Dizziness Passed out for 4 hours in childhood HOME MEDICATIONS : inulin (FIBER GUMMIES) 2 gram tablet,chewable UNABLE TO FIND alfuzosin ER (UROXATRAL) 10 mg 24 hr tablet aspirin 81 mg tablet finasteride (PROSCAR) 5 mg tablet glucosamine-chondroitin 250-200 mg tablet lovastatin (MEVACOR) 20 mg tablet multivitamin with minerals tablet hydroxychloroquine (PLAQUENIL) 200 mg tablet polycarbophil (FIBER-TABS) 625 mg tablet Current Outpatient Prescriptions: ??? inulin (FIBER GUMMIES) 2 gram tablet,chewable ??? UNABLE TO FIND ??? alfuzosin ER (UROXATRAL) 10 mg 24 hr tablet ??? aspirin 81 mg tablet ??? finasteride (PROSCAR) 5 mg tablet ??? glucosamine-chondroitin 250-200 mg tablet ??? lovastatin (MEVACOR) 20 mg tablet ??? multivitamin with minerals tablet Social History Smoking Status ??? Former Smoker ??? Types: Pipe ??? Start date: 1965 ??? Quit date: 2015 Smokeless Tobacco ??? Never Used Comment: 5-6 times a day Alcohol Use No Drug Use No Family History Problem Relation Age of Onset [...] of scoliosis - (Added by TW Conv) PAT Physical Exam Airway Exam: Mallampati: III Cervical ROM: FROM Cardiovascular Exam: Rate: regular Rhythm: regular Pulmonary Exam: LCTA, bilat EENT Exam: trachea midline Dental Exam: Appears intact Skin Exam: Skin is warm. Turgor is normal. Abdominal exam: Abdomen is soft. Bowel sounds are present. Current state: Patient's current state is cooperative. Additional comments: AXOX4. Relevant diagnostics: ECG(s): 05/23/18-NSR, rate 65 Echocardiogram(s): N/A Stress test(s): N/A Cardiac catheterization(s): 09/17/13-IMPRESSION 1. Virtually normal coronary vasculature with minimal disease of the LAD. 2. Normal left ventricular function. 3. Minimally elevated left ventricular end diastolic pressure. 4. Elevated OIL FIELD TESTER. 5. Normal renal arteries. Vitals: 05/23/18 1046 05/23/18 1047 BP: 138/71 146/82 Pulse: 68 Resp: 16 STOP-Bang Total Score: 4 Jamar index score: 95 AD8 Dementia Score: 0 Short Blessed Total Score: 6 DOS Physical Exam Medical history, medications, and allergies reviewed. Attestation: This PAT evaluation 05/23/2018. Airway Exam: Mallampati: III Cervical ROM: FROM Cardiovascular Exam: Rate: regular Rhythm: regular Pulmonary Exam: LCTA, bilat EENT Exam: trachea midline Anesthesia Plan ASA 2 My patient is approved for the Anesthesia Controlled Medication protocol when under care of a PRIMARY HEALTH ORGANISATION MANAGER Planned anesthesia: Spinal and PNB - single shot Lower extremity: saphenous nerve block - subsartorial approach Postoperative Plan: Postoperative administration opioids intended. No postoperative mechanical ventilation intended. Patient's planned disposition post procedure is Floor. Informed Consent: Discussed plan with PRIMARY HEALTH ORGANISATION MANAGER. Anesthesia plan and risks discussed with patient. Consent and Attending signature: I and/or my designee have discussed the anesthesia plan, benefits, possible alternatives, parental presence at time of induction (if indicated), and clinically relevant risks that may include dental injury, unintentional awareness, and/or other complications. The patient and/or parent/legal guardian understand, and agree to proceed. All questions answered. documented in this encounter Plan of Treatment Not on file documented as of this encounter Procedures Procedure Name Priority Date/Time Associated Diagnosis Comments [place] AN PROCEDURE PLACEHOLDER Routine 05/28/2018 8:54 AM CDT Procedure Note - Dorina Avalos CRNA - 05/28/2018 8:54 AM CDTThis note is in progress. Spinal Block Patient location: OR Start time: 05/28/2018 7:35 AM End time: 05/28/2018 7:45 AM Reason for block: primary anesthetic Staff: Supervising anesthesiologist: NASEEM TORRES Placed by: PRIMARY HEALTH ORGANISATION MANAGER:DORINA AVALOS Procedure prep: Preprocedure checklist: patient identified, procedure contraindicationsassessed, site marked, procedure consent, surgical consent, IV checked,risks, benefits and alternatives discussed, monitors and equipment checkedand timeout performed Patient position: sitting Procedure performed while patient: awake Monitoring: ECG, oximetry, blood pressure and capnography Supplemental O2: facemask Prep solution: chlorhexadine/alcohol PPE: provider hat/mask, sterile gloves and sterile drape Skin infiltrated with lidocaine 1%: yes Spinal: Approach: midline (tried both midline and right paramedian) Introducer used: no Location: L3-4 Number of attempts: 3 Other sites attempted: right paramedian L2-3 Spinal Needle: Needle type: Michellecke Needle gauge: 22 G Needle length: 9 cm Assessment: Events: failed spinal When positioning pt in sitting position, anesthesia noticed a scar onpatients back. After inquiring about the scar, pt stated he had lumbarstenosis and had surgery about 3 years ago. Pt did not know what kind ofsurgery or if metal was implanted into his back during surgery. Attempted3 times to place spinal at different locations without success. In preop,pt was advised that general anesthesia was back up plan to spinalplacement. Pt was instructed that we aborted the spinal and are convertingto general anesthesia. MO AN PROCEDURE PLACEHOLDER Routine 05/28/2018 8:04 AM CDT Procedure Note - Dorina Avalos CRNA - 05/28/2018 8:04 AM CDTThis note is in progress. Airway Patient location: OR Urgency: elective Date/time: 05/28/2018 7:50 AM Indications for airway management: anesthesia and airway protection Staff: Supervising provider: NASEEM TORRES Placed by: PRIMARY HEALTH ORGANISATION MANAGER: DORINA AVALOS Emergent airway documentation: Risks and benefits discussed: yes Consent obtained: yes Consent given by: patient Airway prep: Preoxygenated: yes Patient position: sniffing Mask difficulty assessment: 2 - vent by mask + OA or adjuvant Spontaneous ventilation during airway: absent Sedation level during airway: GA Final airway details: Final airway type: endotracheal airway Tube type: ETT ETT size: 7.5 mm Cuffed: yes Technique used for successful ETT placement: direct laryngoscopy Devices/Methods used in placement: intubating stylet Insertion site: oral Blade type: Valerio Blade size: 4 Cormack-Lehane (direct): grade I - full view of glottis Cuff volume: 7 mL Cuff inflated with: air ETT to lips: 22 cm Placement verified by: auscultation, CO2 detection and palpation of cuff Airway secured with: silk tape Number of attempts: 1 MO AN ELECTIVE ENDOTRACHEAL AIRWAY Routine 05/28/2018 8:04 AM CDT Procedure Note - Dorina Avalos CRNA - 05/28/2018 8:04 AM CDTThis note is in progress. Airway Patient location: OR Urgency: elective Date/time: 05/28/2018 7:50 AM Indications for airway management: anesthesia and airway protection Staff: Supervising provider: NASEEM TORRES Placed by: PRIMARY HEALTH ORGANISATION MANAGER: DORINA AVALOS Emergent airway documentation: Risks and benefits discussed: yes Consent obtained: yes Consent given by: patient Airway prep: Preoxygenated: yes Patient position: sniffing Mask difficulty assessment: 2 - vent by mask + OA or adjuvant Spontaneous ventilation during airway: absent Sedation level during airway: GA Final airway details: Final airway type: endotracheal airway Tube type: ETT ETT size: 7.5 mm Cuffed: yes Technique used for successful ETT placement: direct laryngoscopy Devices/Methods used in placement: intubating stylet Insertion site: oral Blade type: Valerio Blade size: 4 Cormack-Lehane (direct): grade I - full view of glottis Cuff volume: 7 mL Cuff inflated with: air ETT to lips: 22 cm Placement verified by: auscultation, CO2 detection and palpation of cuff Airway secured with: silk tape Number of attempts: 1 documented in this encounter Visit Diagnoses Not on filedocumented in this encounter Administered Medications Inactive Administered Medications - up to 3 most recent administrations Medication Order MAR Action Action Date Dose Rate Site ceFAZolin (ANCEF) 2000 mg in 20 mL sterile water (premix) 2,000 mg, intravenous, at 400 mL/hr, Administer over 3 Minutes, Once, On Mon05/28/18 at 0800, For 1 dose, Pre-Op, Administer within 60 minutes of incision., Indications: Prophylaxis, SurgicalIndications:Prophylaxis, Surgical New Bag 05/28/2018 8:03 AM CDT ePHEDrine injection intravenous, As needed, Starting on Mon05/28/18 at 0759, Anesthesia Intra-op Given 05/28/2018 8:03 AM CDT 5 mg Given 05/28/2018 7:59 AM CDT 5 mg famotidine (PEPCID) injection Administer over 2 Minutes, As needed, heartburn, Starting on Mon05/28/18 at 0809, Anesthesia Intra-op Given 05/28/2018 8:09 AM CDT 20 mg fentaNYL (SUBLIMAZE) preservative free injection intravenous, As needed, Starting on Mon05/28/18 at 0746, Anesthesia Intra-op Given 05/28/2018 7:46 AM CDT 100 mcg glycopyrrolate (ROBINUL) injection intravenous, As needed, Starting on Mon05/28/18 at 0812, Anesthesia Intra-op Given 05/28/2018 8:12 AM CDT 0.2 mg HYDROmorphone (DILAUDID) injection As needed, Starting on Mon05/28/18 at 0833, Anesthesia Intra-op Given 05/28/2018 9:02 AM CDT 0.4 mg Given 05/28/2018 8:33 AM CDT 0.2 mg Given 05/28/2018 8:04 AM CDT 0.6 mg ketorolac (TORADOL) injection 15 mg 15 mg, intravenous, Once, On Mon05/28/18 at 0800, For 1 dose, Pre-Op, INTRA-OP Give at time of skin closure, Indications: Postoperative Pain ManagementIndications:Postoperative Pain Management Given 05/28/2018 9:33 AM CDT 15 mg Lactated Ringer's (LR) infusion 30 mL/hr, intravenous, Continuous, Starting on Mon05/28/18 at 0800, Pre-Op New Bag 05/28/2018 8:33 AM CDT New Bag 05/28/2018 7:25 AM CDT New Bag 05/28/2018 7:07 AM CDT 30 mL/hr 30 mL/hr ondansetron (ZOFRAN) injection As needed, nausea, vomiting, Starting on Mon05/28/18 at 0815, Anesthesia Intra-op Given 05/28/2018 8:15 AM CDT 4 m g propofol (DIPRIVAN) IV intravenous, As needed, Starting on Mon05/28/18 at 0746, Anesthesia Intra-op Given 05/28/2018 7:46 AM CDT 120 mg succinylcholine (ANECTINE) injection intravenous, As needed, Starting on Mon05/28/18 at 0747, Anesthesia Intra-op Given 05/28/2018 7:47 AM CDT 100 mg tranexamic acid (TXA) 1,000 mg in sodium chloride 0.9% 100 mL 1,000 mg, intravenous, Once, On Mon05/28/18 at 0630, For 1 dose, Pre-Op, INTRA-OP Infuse over 10 minutes prior to skin incision, Indications: Reduction of Perioperative Blood LossIndications:Reduction of Perioperative Blood Loss New Bag 05/28/2018 8:10 AM CDT 1,000 mg tranexamic acid (TXA) 1,000 mg in sodium chloride 0.9% 100 mL 1,000 mg, intravenous, Once, On Mon05/28/18 at 0630, For 1 dose, Pre-Op, INTRA-OP Infuse over 10 minutes at the start of wound closure., Indications: Reduction of Perioperative Blood LossIndications:Reduction of Perioperative Blood Loss New Bag 05/28/2018 9:22 AM CDT 1,000 mg documented in this encounter Orders Procedures Count Last Ordered Date First Orde red Date ANESTHESIA INTUBATION 05/28/2018 ANESTHESIA SPINAL BLOCK 05/28/2018 documented in this encounter Care Teams Physical Therapy Instructor Relationship Specialty Start Date End Date Bao Pierre MD [address] [address] PCP - General 12/22/16 Patricia Tucker, RN [address] [address] [facility] Outpatient Waist Pleater 05/28/18 1 10/26/17 documented as of this encounter
--- OUTSIDE RECORDS SUMMARY | 2024-10-01 08:48 | XMS_ITS | Encounter Summary ---
Author Organization [facility] Address [address] [place] [address] Phone Care Team Providers Care Rn First Assistant Name Role Phone Bao Pierre MD Primary Care Provider [phone] Encounter Details Date Type Department Care Team (Late st Contact Info) Description 03/01/2019 Telephone [facility] Orthopaedic Surgery [address] [place] [address] 1st [address] [place] [address] Celia Horowitz RMA Social History Tobacco Use Types Packs/Day Years Used Date Smoking Tobacco: Former Pipe 2015 Smokeless Tobacco: Never Comments:5-6 times a day Alcohol Use Standard Drinks/Week Comments No 0 (1 standard drink = 0.6 oz pur e alcohol) Sex and Gender Information Value Date Recorded Sex Assigned at Not on file Legal Sex Male 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 He stated he had surgery approx [address] lawrence. His pcp ordered an mri of his lumbar spine. We discussed that because of his age, he would not be a candidate for surgery with dr lyons. He expressed understanding of this and stated that he is not necessarily interested in having surgery. He complains of back pain only with prolonged standing/walking. No radicular symptoms or pain with sitting/lying down. Scheduled the patient for an evaluation with nick. He saw her last year for his hip pain. Patient given appt date/time/location information for his appointment. documented in this encounter Plan of Treatment Not on file documented as of this encounter Visit Diagnoses Not on filedocumented in this encounter Care Teams Rn First Assistant Relationship Specialty Start Date End Date Bao Pierre MD [address] [address] PCP - General 12/22/16 documented as of this encounter
--- OUTSIDE RECORDS SUMMARY | 2024-10-01 08:48 | XMS_ITS | Encounter Summary ---
Author Organization [facility] Healthcare Address [address] [place] [address] Care Team Providers Care Transportation Maintenance Supervisor Name Role Phone Bao Pierre MD Primary Care Provider [phone] Patricia Tucker RN Unavailable [phone] Reason for Visit * Reason Comments Weekly Call Encounter Details Date Type Department Care Team (Late st Contact Info) Description 06/18/2018 BP Post-Surgical [facility] OP CASE MANAGEMENT [address] [place] [address] Patricia Tucker, RN [address] [facility] [address] [place] [address] Social History Tobacco Use Types Packs/Day Years Used Date Smoking Tobacco: Former Pipe 2015 Smokeless Tobacco: Never Comments:5-6 times a day Alcohol Use Standard Drinks/Week Comments No 0 (1 standard drink = 0.6 oz pur e alcohol) Sex and Gender Information Value Date Recorded Sex Assigned at Not on file 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 He has not had any falls, injuries, ED visits since last call. Pt was discharged from home health and has started outpt therapy @ [facility] in [place]. Pt is aware of follow up appointment on , 06/21 @ 10:[address] Liang. Reminded patient to call OCM for questionsor concerns. documented in this encounter Plan of Treatment Not on file documented as of this encounter Visit Diagnoses Not on filedocumented in this encounter Care Teams Transportation Maintenance Supervisor Relationship Specialty Start Date End Date Bao Pierre MD [address] [address] PCP - General 12/22/16 Patricia Tucker RN [address] [address] [facility] Out[facility] Doll Wig Maker Rooted Hair 05/28/18 1 10/26/17 documented as of this encounter
--- OUTSIDE RECORDS SUMMARY | 2024-10-01 08:48 | XMS_ITS | Encounter Summary ---
Author Organization [facility] Address [address] [place] [address] Phone Care Team Providers Care House Detective Name Role Phone Bao Pierre MD Primary Care Provider [phone] Patricia Tucker RN Unavailable [phone] Reason for Visit * Reason Comments Post-op Encounter Details Date Type Department Care Team (Late st Contact Info) Description 07/19/2018 1:20 PM CDT Office Visit [facility] Orthopaedic Surgery [address] [facility] [address]th [place] [address] [place] [address] Hilary Liang MD [address] [place] [address] 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 (Primary Dx) Social History Tobacco Use Types Packs/Day Years Used Date Smoking Tobacco: Former Pipe 1 966 - 2015 Smokeless Tobacco: Never Comments:5-6 times a day Alcohol Use Standard Drinks/Week Comments No 0 (1 standard drink = 0.6 oz pur e alcohol) Sex and Gender Information Value Date Recorded Sex Assigned at Not on file 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 He is doing well. He has been doing outpatient PT. He rarely if ever has pain. EXAM: Awake, alert, oriented x 3 No acute distress Breathing regular and unlabored Walks without limp Incision healed Left hip ROM 0-90 IMPRESSION: Six weeks status post above procedure, doing well PLAN: He may progress with activities as tolerated. He is reminded about dental prophylaxis. He will return at the one year anniversary of surgery, with x-rays, or sooner, if there are problems. Hilary Liang M.D. 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
--- OUTSIDE RECORDS SUMMARY | 2024-10-01 08:48 | XMS_ITS | Encounter Summary ---
Author Organization [facility] Healthcare Address [address] [place] [address] Care Team Providers Care Willow Machine Tender Name Role Phone Bao Pierre MD Primary Care Provider [phone] Patricia Tucker RN Unavailable [phone] Encounter Details Date Type Department Care Team (Late st Contact Info) Description 06/08/2018 BP Post-Surgical [facility] OP CASE MANAGEMENT [address] [place] [address] Patricia Tucker, RN [address] [address] Social History Tobacco Use Types Packs/Day Years Used Date Smoking Tobacco: Former Pipe 1 2015 Smokeless Tobacco: Never Comments:5-6 times a day Alcohol Use Standard Drinks/Week Comments No 0 (1 standard drink = 0.6 oz pur e alcohol) Sex and Gender Information Value Date Recorded Sex Assigned at Not on file Legal Sex Male 9:03 PM BRANCHER Gender Identity Not on file Sexual Orientation Straight 10/15/2019 10 :34 PM BRANCHER documented as of this encounter Progress Notes * Patricia Tucker, RN - 06/08/2018 12:24 PM CDT Follow up call: OCM spoke with patient. Area on the incision is decreased in size. Inst patient to continue to apply ice frequently. Inst to call for any changes: increased drainage, redness. documented in this encounter Plan of Treatment Not on file documented as of this encounter Visit Diagnoses Not on filedocumented in this encounter Care Teams Willow Machine Tender Relationship Specialty Start Date End Date Bao Pierre MD [address] [address] PCP - General 12/22/16 Patricia Tucker, RN [address] [address] [facility] Outpatient Stamping Press Operator 05/28/18 1 10/26/17 documented as of this encounter
--- OUTSIDE RECORDS SUMMARY | 2024-10-01 08:48 | XMS_ITS | Encounter Summary ---
Author Organization [facility] Healthcare Address [address] [place] [address] Care Team Providers Care Advocacy Director Name Role Phone Bao Pierre MD Primary Care Provider [phone] Patricia Tucker RN Unavailable [phone] Encounter Details Date Type Department Care Team (Late st Contact Info) Description 05/28/2018 7:30 AM CDT - 05/28/2018 11:15 AM CDT Surgery [facility] Operating Room [address] [place] [address] Hilary Liang MD [address] [facility] [address] [place] [address] ARTHROPLASTY LEFT TOTAL HIP Surgery Details Date/Time Status Location OR Service Patient Class Case Class Case Type Trauma Case? 05/28/2018 7:[address] [facility] OR POD 2 202 Orthopaedics Surgery Admit Elective Panel 1 Procedure LRB Anes Op Region Wound Class Comments ARTHROPLASTY LEFT TOTAL HIP Left Spinal Hip Cl ass I - Clean Surgeon Surgeon Role Service Panel Hilary Liang MD Primary Orthopaedics 1 documented in this encounter Social History Tobacco Use Types Packs/Day Years Used Date Smoking Tobacco: Former Pipe 1 2015 Smokeless Tobacco: Never Comments:5-6 times a day Alcohol Use Standard Drinks/Week Comments No 0 (1 standard drink = 0.6 oz pur e alcohol) Sex and Gender Information Value Date Recorded Sex Assigned at Not on file Legal Sex 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 Gender Identity Not on file Sexual Orientation Straight 10/15/2019 10 :34 PM ELECTRONICS HARDWARE DESIGN ENGINEER documented as of this encounter Last Filed Vital Signs Vital Sign Reading Time Taken Comments Blood Pressure 157/71 05/28/2018 11:10 AM CDT Pulse 81 05/28/2018 11:10 AM CDT Temperature 36.6 ??C (97.9 ??F) 05/28/2018 10:12 AM C DT Respiratory Rate 14 05/28/2018 11:10 AM CDT Oxygen Saturation 100% 05/28/2018 11:10 AM CDT Inhaled Oxygen Concentration - - Weight 93.4 kg (206 lb) 05/28/2018 6:00 AM CDT Height 175.3 cm (5' 9.02 ) 05/28/2018 6:00 AM CD T Body Mass Index 30.41 05/28/2018 6:00 AM CDT documented in this encounter Discharge Summaries * Екатерина Doll NP - 05/29/2018 11:20 AM CDT Inpatient Discharge Summary Admitting Provider: Hilary Liang MD Discharge Provider: Hilary Liang MD Primary Care Physician at Discharge: Bao Pierre MD [phone] Admission Date: 05/28/2018 Discharge Date: 05/29/2018 Primary [...] home health care on 05/29/2018. Discharge Medications: Frandy Alvares Home Medication Instructions SNEHAL:[id number] Printed on:05/29/18 1126 Medication Information alfuzosin ER (UROXATRAL) 10 mg [...] Hilary Liang on 06/21/18 at 1:20pm at [facility] 12A: [facility] ([facility]), [address] [place] [address], 12[address], [place] [address]. Condition on Discharge: Stable documented in this encounter Discharge Instructions * Discharge Instr - Other Orders* Chris Cervantes RN - 05/29/2018 10:38 AM CDT [facility] Home Care is your home care provider and will contact you within 24 hours to schedule your first home visit. If you do not hear from them within that timeframe, please call them at [phone] to schedule. [facility] is the provider of [...] MG ORAL TABLET DELAYED RELEASE 09/13/2013 1 oqkm-qub-aem-dayana- nxeh-tttu-wed (Fiber 6) 1,000 mg tablet FIBER 09/13/2013 [...] in this encounter Progress Notes * Chris Cervantes RN - 05/29/2018 10:39 AM CDT 05/29/18 1037 Discharge Summary Chart reviewed For Medical Necessity Does patient have a planned readmission to hospital planned? No Discharge Disposition Home with Home Health (PT/OT/RN) Equipment/Provider Needs Home Equipment Needs Identified;Home Provider Services Needs Identified Home Care Agency Information Home Care Agency Name [facility] Home [facility] Care Agency Home Care Agency Contact Spoken to Alicia at [facility] Home Equipment Information Home Equipment Provider Name AB Home Equipment Provider Phone Number Home Equipment Provider Contact Spoken to [facility] Equipment Ordered active care pumps Discharge Additional Assistance Does the patient need discharge transport arranged? No Post Discharge Care Provider Post Discharge Care Plan Next level of care provider has access to complete EMR Report Per DCAM ADD: today Medical Necessity: medically stable. Referrals: [facility] Home Care (Alicia at [facility] notified of discharge today); [facility] for active [...] alone;House Behavior Oriented Income Information Income Source [facility]/Pension;SSD/SSI Income/Expense Information Income meets expenses Potential Discharge Needs Discharge Potential discharging to home with home health Home Health [facility];Physical therapy Anticipated discharge level of care Return Home Communications Patient choice (Home Health/Hospice) list given to patient/customer engagement representative? Yes Fiduciary Responsibility Patient/Designated decision maker was informed of [facility] fiduciary relationship as necessary Medical Necessity: presented for total hip arthroplasty with a history of osteoarthritis of left hip Additional Information/Options Discussed: Confirmed patient's phone number, address, primary care physician, and home pharmacy. Explained role and purpose of vocational case manager. The patient does not have any home care preferences at this time. Plan Includes: discharging to home with home health Insurance verified as: Medicare A&B; [place] Prescription Coverage: yes Admission source: home PCP verified as: Dr. Bao Pierre Outpatient Pharmacy: [facility] [place], [place] * Eddi Fernandez MD - 05/29/2018 [...] proceed. Consent was obtained. Hilary Liang M.D. Panelboard Operator, Orthopaedic Surgery Source Note - Hilary Liang MD - 05/03/2018 9:10 AM CDT NEW PATIENT VISIT CHIEF COMPLAINT: Left hip pain HISTORY OF PRESENT ILLNESS: This is a 82 y.o. year old male with left hip pain. He has had pain for3 months. It is located in the groin. It is worse with walking. He takes Aleve for pain. He has hadan injection. He has not had physical therapy. [...] have a dental check-up to ensure that there are no dental infections prior to surgery, and that a note from his dentist should be faxed to our office. I explained that if the prosthesis develops an infection, it will require further surgery andcould include temporary or permanent removal of the device. I also explained that he would meet with Anesthesiology preoperatively to discuss anesthetic risk. All questions were answered. PLAN: Left total hip arthroplasty at the patient's convenience Preoperative risk assessment by the patient's primary care physician and Anesthesia Hilary Liang M.D. Panelboard Operator, Orthopaedic Surgery documented in this encounter Nursing [...] PT visits for postop assessment and treatment. [facility] Home Care's ID branch is unable to staff for tomorrow start of care. [facility] ([phone]) has accepted the patient for start of [...] placed and the hip was reduced.Leg length mosque was confirmed. Stability was confirmed in extension/external rotation, flexion/internal rotation, high flexion, and the position of sleep. An intraoperative x-ray was obtained to confirm component position and leg length mosque. The hip was dislocated. The trial components were removed. The final stem was impacted into place. The femoral head was impacted on a clean and dry trunnion. The hip was reduced. Leg length mosque and stability were again confirmed. The p [...] available during skin closure. Hilary Liang M.D. Panelboard Operator, Orthopaedic Surgery * Brief Op Note - Eddi Fernandez MD - 05/28/2018 8:13 AM CDT Operative Progress Note Attending Surgeon: Hilary Liang MD Surgical Team: Quality Control Head: Dorian Ramirez RN; Mike Lozano RN Scrub: Jovany Ramirez SA PROTOTYPE TECHNICIAN: Patricia Montelongo RN Resident: Eddi Fernandez DATE [...] Implant Name Type Inv. Item Serial No. Print Developer Lot No. LRB No. Used [employer] [id number] TRILOGY 60MM PRIMARY CLUSTER HOLE HIP SHELL ACETABULAR TIVANIUM - S0.- [id number] [employer] [id number] TRILOGY 60MM PRIMARY CLUSTER HOLE HIP SHELL ACETABULAR TIVANIUM 0. [employer] [id number] Left 1 [employer] [id number] TRILOGY 6.5MM 40MM SELF TAP HIP ACETABULAR CORTICAL SCREW BONE - S0. - [id number] [employer] [id number] TRILOGY 6.5MM 40MM SELF TAP HIP ACETABULAR CORTICAL SCREW BONE 0. [employer] [id number] Left 1 [employer] [id number] TRILOGY 6.5MM 30MM SELF TAP ACETABULAR CORTICAL SCREW BONE - [id number] [employer] [id number] TRILOGY 6.5MM 30MM SELF TAP ACETABULAR CORTICAL SCREW BONE [employer] [id number] Left 1 [employer] [id number] TRILOGY 60MM 36MM 9.9MM PRIMARY MODULAR CUP LINER HIP STANDARD - S0. - [id number] [employer] [id number] TRILOGY 60MM 36MM 9.9MM PRIMARY MODULAR CUP LINER HIP STANDARD 0. [employer] [id number] Left 1 [employer] [id number] VERSYS 16MM 160MM PRIMARY COLLAR ALIGNMENT GUIDE HIP 45MM - S0. - [id number] [employer] [id number] VERSYS 16MM 160MM PRIMARY COLLAR ALIGNMENT GUIDE HIP 45MM 0. [employer] [id number] Left 1 [employer] [id number] TRILOGY IT 36MM HIP ACETABULAR +0MM 12/14 MEDIUM HEAD FEMORAL - S0. -[id number] [employer] [id number] TRILOGY IT 36MM HIP ACETABULAR +0MM 12/14 MEDIUM HEAD FEMORAL 0. [employer] [id number] Left 1 Blood/Blood Products Transfused: 0 mls [...] Potassium, bld 4.1 3.3 - 4.9 mmol/L [facility] Blood specimen (specimen) 05/29/2018 6:30 AM CDT 05/29/2018 7:08 AM CDT Narrative [facility] - 05/29/2018 7:13 AM CDT Hilary Liang MD LAB BLOOD ORDERABLES Final Result [facility] Department [place] [address] * (ABNORMAL) CBC without differential (05/28/2018 8:18 PM CDT) [facility] WBC 12.0(H) 3.8 - 9.9 K/cumm [facility] Hgb 11.6(L) 13.0 - 17.5 g/dL [facility] Hct 35.2(L) 38.9 - 50.3 % [facility] Plt 150 150 - 400 K/cumm [facility] MPV 11.4 9.1 - 12.3 fL [facility] RBC 3.70(L) 4.30 - 5.80 M/cumm [facility] MCV 95.1 81.3 - 96.4 fL [facility] MCH 31.4 27.1 - 33.3 pg [facility] MCHC 33.0 32.3 - 35.7 g/dL [facility] RDW CV 13.0 11.1 - 14.9 % [facility] RDW SD 45.1 35.7 - 48.1 fL [facility] NRBC abs 0.00 0.00 - 0.01 K/cumm [facility] Blood specimen (specimen) 05/28/2018 8:18 PM CDT 05/28/2018 11:41 PM CDT Narrative [facility] - 05/28/2018 11:56 PM CDT Hilary Liang MD LAB BLOOD ORDERABLES Final Result [facility] Department [place] [address] * (ABNORMAL) Basic metabolic panel (05/28/2018 8:18 PM CDT) [facility] Sodium 136 135 - 145 mmol/L [facility] Potassium, pl 5.1(H) 3.3 - 4.9 mmol/L [facility] Comment:Hemolyzed; (++); pot assium value may be falsely elevated by as much as 0.3 - 0.5 mmol/L. Suggest redraw and reanalysis. Chloride 102 97 - 110 mmol/L [facility] CO2 26 22 - 32 mmol/L [facility] Anion gap 8 2 - 15 mmol/L [facility] BUN 23 8 - 25 mg/dL [facility] Creatinine 1.06 0.80 - 1.30 mg/dL [facility] Glucose 96 70 - 199 mg/dL [facility] Comment: Interpretive Data Fasting glucose >/= [...] 2017. Calcium 8.1(L) 8.5 - 10.3 mg/dL [facility] Blood specimen (specimen) 05/28/2018 8:18 PM CDT 05/28/2018 11:41 PM CDT Narrative [facility] - 05/29/2018 12:16 AM CDT Hilary Liang MD LAB BLOOD ORDERABLES Final Result [facility] Department [place] [address] * Type and screen (05/28/2018 8:18 PM CDT) Sheeba, indirect Negative [facility] ABO Rh B Positive [facility] Blood specimen (specimen) 05/28/2018 8:18 PM CDT 05/28/2018 11:44 PM CDT Narrative [facility] - 05/29/2018 1:15 AM CDT Has the patient had Daratumumab (Darzalex) in the past 6 months?->No Hilary Liang MD LAB BLOOD BANK TEST ORDERA BLES Final Result [facility] Department [place] [address] * XR Pelvis Ortho View (05/28/2018 10:58 [...] unspecified hyperlipidemia Class 1 obesity in adult Primary osteoarthritis of left hip documented in this encounter Admitting Diagnoses Diagnosis Primary osteoarthritis of left hip documented in this encounter Administered Medications Inactive Administered Medications - up to 3 most recent administrations Medication Order MAR Action Action Date Dose Rate Site alfuzosin ER (UROXATRAL) extended release tablet 10 [...] Given 05/28/2018 8:00 PM CDT 325 mg bupivacaine-EPINEPHrine (MARCAINE with EPI) 30 mL, ketorolac (TORADOL) 15 mg solution As needed, Starting on Mon05/28/18 at 0826, Intra-Op Given 05/28/2018 8:26 AM CDT 30.5 mL camphor-menthol (SARNA) 0.5-0.5 % lotion topical, Every 2 hours PRN, other, itching, Starting on Mon05/28/18 at 1222, Phase I & Post-op Floor, Apply to affected area: other, Indications: UrticariaIndications:Urticaria celecoxib (CeleBREX) capsule 100 mg 100 mg, [...] Given 05/28/2018 8:00 PM CDT 20 mg finasteride (PROSCAR) tablet 5 mg 5 mg, [...] for uncontrolled or increasing pain., Indications: PainIndications:Pain lovastatin (MEVACOR) tablet 20 mg 20 mg, [...] 8:00 PM CDT 2 tablets sodium chloride 0.9 % irrigation As needed, Starting on Mon05/28/18 at 0827, Intra-Op Given 05/28/2018 8:28 AM CDT 1,000 mL Given 05/28/2018 8:27 AM CDT 1,000 mL sodium chloride 0.9% flush 0.5-20 mL [...] (Canceled Entry - Provider: Mike Wilkins RN) 09 (Given - Provider: Mike Wilkins RN) aspirin [...] 60 minutes of incision., Indications: Prophylaxis, Surgical 0803 (New Bag - Provider: Dorina Avalos CRNA)08 (Stopped - Provider: Dorina Avalos CRNA - [...] 09 (Given - Provider: Mike Wilkins RN) finasteride (PROSCAR) tablet 5 mg 5 mg, oral, Daily, First dose on Mon05/28/18 at 1300, Indications: 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 , Indications: Flushing 1244 (Canceled Entry - Provider: Mike Wilkins RN)2000 (Given - Provider: Jose Mott) 0642 (Given - Provider: Jose oMtt)1345 (Canceled Entry - Provider: Mike Wilkins RN) [...] Harden RN)0725 (New Bag - Provider: Dorina Avalos CRNA)0832 (Anesthesia Volume Adjustment - Provider: Dorina [...] analgesic., Indications: Pain 1020 (Given - Provider: Genoveva Rock, RN) HYDROcodone-acetaminophen (NORCO) 5-325 mg per [...] (TYLENOL) tablet 1,000 mg 1 0 05/28/2018 acetaminophen (TYLENOL) tablet 650 mg 1 alfuzosin ER (UROXATRAL) ext ended release tablet 10 mg 1 05/28/2018 aspirin enteric coated tablet 325 mg 05/03 camphor-menthol (SARNA) 0.5-0.5 % lotion 1 05/28/2018 ceFAZolin (ANCEF) 2000 mg in 20 mL sterile water (premix) 2 05/28/2018 celecoxib (CeleBREX) capsule 100 mg 05/28 diphenhydrAMINE (BENADRYL) i njection 12.5 mg 05/28/2018 famotidine (PEPCID) tablet 20 mg 05/28/20 18 fentaNYL (SUBLIMAZE) preserv ative free injection 25 mcg 05/28/2018 fentaNYL (SUBLIMAZE) preserv ative free injection 50 mcg 1 05/28/2018 finasteride (PROSCAR) tablet 5 mg 018 HYDROcodone-acetaminophen (N ORCO) 5-325 mg per tablet 1 tablet 1 05/28/2018 HYDROmorphone (DILAUDID) injection 0.2 mg 2 05/28/2018 ketorolac (TORADOL) injection 15 mg 2 05/28 Lactated Ringer's (LR) bolus 1,000 mL 1 Lactated Ringer's (LR) infusion 4 8 lovastatin (MEVACOR) tablet 20 mg 1 018 naloxone (NARCAN) 0.4 mg/mL injection 0.04-0.4 mg 1 05/28/2018 ondansetron (ZOFRAN) injection 4 mg 2 05/28 ondansetron ODT (ZOFRAN-ODT) disintegrating tablet 4 mg 1 05/28/2018 polyethylene glycol (MIRALAX) packet 17 g 1 05/28/2018 prochlorperazine (COMPAZINE) injection 10 mg 1 05/28/2018 senna-docusate (PERICOLACE) 8.6-50 mg per tablet 2 tablet 1 05/28/2018 sodium chloride 0.9% flush 0.5-20 mL 5 05/03 sodium chloride 0.9% infusion 1 05/28/2018 tranexamic acid (TXA) 1,000 mg in sodium [...] 05/29/2018 documented in this encounter Care Teams Advocacy Director Relationship Specialty Start Date End Date Bao Pierre MD [address] [facility] [address] [place] [address] PCP - General 12/22/16 Patricia Tucker, RN [address] [address] [facility] Outpatient Detective Chief 05/28/18 1 10/26/17 documented as of this encounter
--- OUTSIDE RECORDS SUMMARY | 2024-10-01 08:48 | XMS_ITS | Encounter Summary ---
Author Organization [facility] Healthcare Address [address] [place] [address] Care Team Providers Care Design Painter Name Role Phone Bao Pierre MD Primary Care Provider [phone] Patricia Tucker RN Unavailable [phone] Reason for Visit * Reason Comments Follow-Up Call 30 Days Encounter Details Date Type Department Care Team (Late st Contact Info) Description 06/28/2018 BP Post-Surgical [facility] OP CASE MANAGEMENT [address] [place] [address] Patricia Tucker, RN [address] [facility] [address] [place] [address] Social History Tobacco Use Types Packs/Day Years Used Date Smoking Tobacco: Former Pipe 2015 Smokeless Tobacco: Never Comments:5-6 times a day Alcohol Use Standard Drinks/Week Comments No 0 (1 standard drink = 0.6 oz pur e alcohol) Sex and Gender Information Value Date Recorded Sex Assigned at Not on file 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 He is doing well. He saw Dr. Liang last week and she was pleased with hisprogress. The santiago were removed from incision and steri- strips in place. He is still attending outpt therapy and ambulating with cane. Reminded patient to call OCM for questions or concerns. documented in this encounter Plan of Treatment Not on file documented as of this encounter Visit Diagnoses Not on filedocumented in this encounter Care Teams Design Painter Relationship Specialty Start Date End Date Bao Pierre MD [address] [id number] PCP - General 12/22/16 Patricia Tucker RN [address] [address] [facility] Outpatient Manager Of Training 05/28/18 1 10/26/17 documented as of this encounter
--- OUTSIDE RECORDS SUMMARY | 2024-10-01 08:48 | XMS_ITS | Encounter Summary ---
Author Organization [facility] Healthcare Address [address] [place] [address] Care Team Providers Care Packer Inspector Name Role Phone Bao Pierre MD Primary Care Provider [phone] Patricia Tucker RN Unavailable [phone] Reason for Visit * Reason Comments Follow-Up Call 60 Days Encounter Details Date Type Department Care Team (Late st Contact Info) Description 07/26/2018 BP Post-Surgical [facility] OP CASE MANAGEMENT [address] [place] [address] Patricia Tucker, RN [address] [facility] [address] [place] [address] Social History Tobacco Use Types Packs/Day Years Used Date Smoking Tobacco: Former Pipe 2015 Smokeless Tobacco: Never Comments:5-6 times a day Alcohol Use Standard Drinks/Week Comments No 0 (1 standard drink = 0.6 oz pur e alcohol) Sex and Gender Information Value Date Recorded Sex Assigned at Not on file 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 He reports that is doing well. He has completed outpt therapy and is ambulating without device. He saw Dr. Liang last week and she was very pleased with his progress. Deniespain. Incision is healed. No falls, injuries, illnesses or ED visits. Reminded patient to call OCM for questions or concerns. documented in this encounter Plan of Treatment Not on file documented as of this encounter Visit Diagnoses Not on filedocumented in this encounter Care Teams Packer Inspector Relationship Specialty Start Date End Date Bao Pierre MD [address] [address] PCP - General 12/22/16 Patricia Tucker RN [address] [address] [facility] Outpatient Manager Sales Support 05/28/18 1 10/26/17 documented as of this encounter
--- OUTSIDE RECORDS SUMMARY | 2024-10-01 08:48 | XMS_ITS | Encounter Summary ---
Author Organization [facility] Healthcare Address [address] [place] [address] Care Team Providers Care Site Inspector Name Role Phone Bao Pierre MD Primary Care Provider [phone] Reason for Referral * Diagnostic Imaging (Routine) - Closed Specialty Diagnoses / Procedures Referred By Contac t Referred To Contact Radiology Diagnoses Low back pain with sciatica, sciatica laterality unspecified, unspecified back pain laterality, unspecified chronicity Procedures MRI Lumbar Spine WO Contrast Bao Pierre MD Phone: tel: fax: [address] [address] Referral ID Status Reason Start Date Expiration Date Visits Re quested Visits Authorized [id number] Closed 01/30/2019 08/10/2020 1 1 Encounter Details Date Type Department Care Team (Late st Contact Info) Description 01/30/2019 Orders Only Internal Medicine Bao Pierre MD [address] [facility] [address] [place] [address] Low back pain with sciatica, sciatica laterality unspecified, unspecified back pain laterality, unspecified chronicity (Primary Dx) Social History Tobacco Use Types Packs/Day Years Used Date Smoking Tobacco: Former Pipe 1 96 - 2015 Smokeless Tobacco: Never Comments:5-6 times a day Alcohol Use Standard Drinks/Week Comments No 0 (1 standard drink = 0.6 oz pur e alcohol) Sex and Gender Information Value Date Recorded Sex Assigned at Not on file Legal Sex Male 9:03 PM SURGICAL SERVICES COORDINATOR Gender Identity Not on file Sexual Orientation Straight 10/15/2019 10 :34 PM SURGICAL SERVICES COORDINATOR documented as of this encounter Plan of Treatment Not on file documented as of this encounter Results * MRI Lumbar Spine WO Contrast (02/13/2019 12:15 PM CDT) Anatomical Region Laterality Modality Spine N/A Magnetic Resonan ce 02/13/2019 1:48 PM CDT Addenda Addendum by David Gramajo MD PhD on 08/03/2019 7:03 PM CDT Upon re-review, there is severe canal stenosis at L1-2 and moderate at L2-3. The remaining levels do not show moderate or severe canal stenosis. 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 Dictated by: Manav Taylor M.D. The radiology attending physician has personally reviewed this study, and had reviewed and/or edited this written report and agrees with it. Electronically signed by: David Gramajo M.D, PHD Narrative 02/13/2019 1:50 PM CDT EXAMINATION: Magnetic resonance imaging (MRI) of the lumber spine without contrast HISTORY: Lumbago with sciatica, unspecified side TECHNIQUE: Multiplanar multi-weighted MRI of the lumbar spine was performed without intravenous contrast using the standard lumbar spine protocol. COMPARISON: 04/06/2015 FINDINGS: There is dextroscoliosis with apex at L3. There is mild retrolisthesis at L2-3 and L3-4. There is progressive Modic 1 endplate change at L4-5 and Modic 2 endplate change at the other levels. There are no compression fractures. The conus medullaris terminates at the level of L1-2. The distal spinal cord signal intensity is normal. There is disc desiccation and height loss from L1 to L4 5 with multiple Schmorl's nodes. There is new desiccation at L5-S1. Limited views of the abdomen and pelvis show no soft tissue abnormality. L1-2: Mild disc bulge. There is moderate facet arthropathy. There is no neuroforaminal stenosis. There is no spinal canal stenosis. L2-3: Mild disc bulge. There is moderate facet arthropathy. There is no neuroforaminal stenosis. There is no spinal canal stenosis. L3-4: Diffuse disc bulge. There is severe facet arthropathy. There is severe left and mild right neuroforaminal stenosis. There is severe spinal canal stenosis, increased secondary to progressed facet hypertrophy. L4-5: Diffuse disc bulge. There is severe facet arthropathy, increased. There is severe neuroforaminal stenosis. There is ligamentum flavum infolding. There is severe spinal canal stenosis. L5-S1: Diffuse disc bulge. There is mild facet arthropathy. There is severe right and moderate left neuroforaminal stenosis. There is no spinal canal stenosis. Procedure Note David Gramajo MD PhD - 02/13/2019 EXAMINATION: Magnetic resonance imaging (MRI) of the lumber spine without contrast HISTORY: Lumbago with sciatica, unspecified side TECHNIQUE: Multiplanar multi-weighted MRI of the lumbar spine was performed without intravenous contrast using the standard lumbar spine protocol. COMPARISON: 04/06/2015 FINDINGS: There is dextroscoliosis with apex at L3. There is mild retrolisthesis at L2-3 and L3-4. There is progressive Modic 1 endplate change at L4-5 and Modic 2 endplate change at the other levels. There are no compression fractures. The conus medullaris terminates at the level of L1-2. The distal spinal cord signal intensity is normal. There is disc desiccation and height loss from L1 to L4 5 with multiple Schmorl's nodes. There is new desiccation at L5-S1. Limited views of the abdomen and pelvis show no soft tissue abnormality. L1-2: Mild disc bulge. There is moderate facet arthropathy. There is no neuroforaminal stenosis. There is no spinal canal stenosis. L2-3: Mild disc bulge. There is moderate facet arthropathy. There is no neuroforaminal stenosis. There is no spinal canal stenosis. L3-4: Diffuse disc bulge. There is severe facet arthropathy. There is severe left and mild right neuroforaminal stenosis. There is severe spinal canal stenosis, increased secondary to progressed facet hypertrophy. L4-5: Diffuse disc bulge. There is severe facet arthropathy, increased. There is severe neuroforaminal stenosis. There is ligamentum flavum infolding. There is severe spinal canal stenosis. L5-S1: Diffuse disc bulge. There is mild facet arthropathy. There is severe right and moderate left neuroforaminal stenosis. There is no spinal canal stenosis. 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 Dictated by: Manav Taylor M.D. The radiology attending physician has personally reviewed this study, and had reviewed and/or edited this written report and agrees with it. Electronically signed by: David Gramajo M.D, PHD Bao Pierre MD IMG MRI PROCEDURES Edited Res ult - Final documented in this encounter Visit Diagnoses Diagnosis Low back pain with sciatica, sciatica laterality unspecified, unspecified back pain laterality, unspecified chronicity- Primary Low back pain with sciatica, sciatica laterality unspecified, unspecified back pain laterality, unspecified chronicity documented in this encounter Care Teams Site Inspector Relationship Specialty Start Date End Date Bao Pierre MD [address] [address] PCP - General 12/22/16 documented as of this encounter
--- OUTSIDE RECORDS SUMMARY | 2024-10-01 08:48 | XMS_ITS | Encounter Summary ---
Author Organization [facility] Address [address] [place] [address] Phone Care Team Providers Care Staff Air Tactical Officer Name Role Phone Bao Pierre MD Primary Care Provider [phone] Patricia Tucker RN Unavailable [phone] Reason for Visit * Reason Comments Post-op Encounter Details Date Type Department Care Team (Late st Contact Info) Description 06/21/2018 10:00 AM CDT Office Visit [facility] Orthopaedic Surgery [address] [facility] 12th [place] [address] [place] [id number] Hilary Liang MD [address] [place] [address] Aftercare following left hip joint [...] on file Legal Sex Male 9:03 PM POKER IN Gender Identity Not on file Sexual Orientation Straight 10/15/2019 10 :34 PM POKER IN documented as of this encounter Progress Notes * Hilary Liang MD - 06/21/2018 10:00 AM CDT POSTOPERATIVE VISIT Surgery: Left total hip arthroplasty Date: 05/28/18 This patient is three weeks status post left total hip arthroplasty. He is doing well. He has minimal pain. He did have difficulty with constipation. He also had an issue with swelling at the surgical site. He was seen in the ED, and it resolved with icing. He is walking with a walker. He has completed home PT and is set to start outpatient. EXAM: Awake, alert, oriented x 3 No acute distress Breathing regular and unlabored Walks with slight limp Incision clean, dry and intact with santiago Left hip ROM 0-90 RADIOGRAPHS: Radiographs obtained today demonstrate a cementless left total hip arthroplasty. IMPRESSION: Three weeks status post above procedure, doing well PLAN: Today, his santiago were removed and steristrips were placed. He may take a shower, but should not soak in a tub or pool for three more weeks. Additionally, he should not scrub the wound. He should start therapy. He should continue his posterior hip precautions He will follow up in 3-4 weeks, no x-rays. Hilary Liang M.D. Goodwill Representative, Orthopaedic Surgery documented in this encounter Plan of Treatment Not on file documented as of this encounter Visit Diagnoses Diagnosis 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- Primary documented in this encounter Discontinued Medications Medication Sig Discontinue Reason Start Date End Da te HYDROcodone-acetaminophe n (NORCO) 5-325 mg per tabletIndications:Pain Take 1-2 tablets by mouth every 4 (four) hours as needed for pain. Duplicate order 06/04/2018 06/21/2018 documented as of this encounter Care Teams Staff Air Tactical Officer Relationship Specialty Start Date End Date Bao Pierre MD [address] [address] PCP - General 12/22/16 Patricia Tucker RN [address] [address] [facility] Outpatient Technology Advisor 05/28/18 1 10/26/17 documented as of this encounter
--- OUTSIDE RECORDS SUMMARY | 2024-10-01 08:48 | XMS_ITS | Encounter Summary ---
Author Organization [facility] Address [address] [place] [address] Phone Care Team Providers Care Roof Fixer Name Role Phone Bao Pierre MD Primary Care Provider Reason for Visit * Reason Comments Pain Encounter Details Date Type Department Care Team (Late st Contact Info) Description 03/18/2019 10:00 AM CDT Office Visit [facility] Orthopaedic Surgery [address] [facility] 6th [place] [address] [place] [id number] Ange Ramires PA [address] [place] [address] Chronic 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 (Primary Dx); Spinal stenosis, lumbar region, with neurogenic claudication Social History Tobacco Use Types Packs/Day Years Used Date Smoking Tobacco: Former Pipe 1 966 - 2016 Smokeless Tobacco: Never Comments:5-6 times a day Alcohol Use Standard Drinks/Week Comments No 0 (1 standard drink = 0.6 oz pur e alcohol) Sex and Gender Information Value Date Recorded Sex Assigned at Not on file Legal Sex Male 9:03 PM VISUAL TRAINING AIDE Gender Identity Not on file Sexual Orientation Straight 10/15/2019 10 :34 PM VISUAL TRAINING AIDE documented as of this encounter Ordered Prescriptions Prescription Sig Dispense Quantity Refills Last Filled Start Date End Date gabapentin (NEURONTIN) 300 mg capsuleIndications: Chronic 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 male. CHIEF COMPLAINT Lower back pain HISTORY OF PRESENT ILLNESS Patient is an 83-year-old male who presents for initial evaluation of lower back pain for several years. He states that his symptoms have progressively worsened which prompted the referral to our clinic. He describes an intermittent aching pain across the lumbosacral region without radiation. Pain is only present with standing and walking. He has immediate relief with sitting and resting. He state s that he is able to work out in his yd as long as he can sit on a stool. He is able to get throughthe grocery store as long as he is able to lean forward on a grocery cart. He states that he used to take our long walks with his dogs, but is no longer able to do this due to the severe pain in the lower back upon approximately 10 minutes of walking. Patient has a history of lumbar spine surgery with Dr. Chance the neurosurgeon. He was referred to our clinic for a surgical evaluation. Patient was scheduled with physiatry first for conservative spine work up as he is over 65 years of age. PMH He has a past medical history of Arthritis, Eye disease, Hypercholesteremia, Osteoarthritis, Personal history of other diseases of the circulatory system, Personal history of other diseases of the respiratory system, and Spinal stenosis. He also has no past medical history of Delayed emergence fromgeneral anesthesia, Hard to intubate, Malignant hyperthermia, PONV (postoperative nausea and vomiting), or Pseudocholinesterase deficiency. PSH He Past Surgical History: Procedure Laterality Date ??? BACK SURGERY ??? CARDIAC CATHETERIZATION 2012 ??? CATARACT EXTRACTION, BILATERAL ~2013, 2014 ??? HIP SURGERY Left 05/28/2018 DIMITRIOS ARNETT ??? MOHS SURGERY multiple ??? POSTERIOR LAMINECTOMY / DECOMPRESSION LUMBAR SPINE 2015 ??? AK REMOVAL GALLBLADDER 2017 ??? SHOULDER SURGERY 2012 rotator cuff repair FAMILY HISTORY He family history includes Arthritis in his mother and sister; Cancer in his sister; Heart disease in his brother and mother; Hypertension in his mother; Scoliosis in his son. ALLERGIES He is allergic to epinephrine. MEDICATIONS He Current Outpatient Medications: ??? alfuzosin ER (UROXATRAL) 10 mg 24 hr tablet, Take 10 mg by mouth daily. , Disp: , Rfl: ??? aspirin 325 mg EC tablet, Take 1 tablet (325 mg total) by mouth 2 (two) times a day., Disp: 84 tablet, Rfl: 0 ??? celecoxib (CeleBREX) 100 mg capsule, TAKE 2 PILLS WITH BREAKFAST THE DAY BEFORE SX. TAKE 1 PILLBID AFTER DISCHARGE., Disp: 10 capsule, Rfl: 0 ??? finasteride (PROSCAR) 5 mg tablet, Take 5 mg by mouth daily. , Disp: , Rfl: ??? inulin (FIBER GUMMIES) 2 gram tablet,chewable, Take 1 tablet by mouth 2 (two) times a day., Disp: , Rfl: ??? lovastatin (MEVACOR) 20 mg tablet, Take 20 mg by mouth daily. , Disp: , Rfl: 12 ??? amoxicillin (AMOXIL) 500 mg tablet/capsule, Take 4 tablet/capsule (2,000 mg total) by mouth as needed (1 HR PRIOR TO DENTAL PROCEDURE). (Patient not taking: Reported on 03/18/2019), Disp: 8 tablet/capsule, Rfl: 0 ??? cyclobenzaprine (FLEXERIL) 10 mg tablet, Take 0.5 tablets (5 mg total) by mouth every 8 (eight)hours as needed for muscle spasms. (Patient not taking: Reported on 03/18/2019), Disp: 12 tablet, Rfl: 0 ??? HYDROcodone-acetaminophen (NORCO) 5-325 mg per tablet, Take 1-2 tablets by mouth every 4 (four)hours as needed for pain. (Patient not taking: Reported on 07/19/2018 ), Disp: 84 tablet, Rfl: 0 ??? senna-docusate (PERICOLACE) 8.6-50 mg, Take 2 tablets by mouth 2 (two) times a day. (Patient not taking: Reported on 03/18/2019), Disp: 60 tablet, Rfl: 1 SOCIAL HISTORY He reports that he quit smoking about 3 years ago. His smoking use included pipe. He started smoking about 53 years ago. He has never used smokeless tobacco. He reports that he does not drink alcoholor use drugs. REVIEW OF SYSTEMS: 12 systems review negative. PHYSICAL EXAM: Alert, oriented and cooperative. Mood [...] to the lower extremities. Negative clonus. IMAGING: MRI of the lumbar spine dated 02/13/19 reviewed with patient in exam room and reveals L3-4:Diffuse disc bulge. There is severe facet arthropathy. There is severe left and mild right neuroforaminal stenosis. There is severe spinal canal stenosis, increased secondary to progressed facet hypertrophy. L4- 5: Diffuse disc bulge. There is severe facet arthropathy, increased. There is severe neuroforaminal stenosis. There is ligamentum flavum infolding. There is severe spinal canal stenosis. L5-S1: Diffuse disc bulge. There is mild facet arthropathy. There is severe right and moderate left neuroforaminal stenosis. There is no spinal canal stenosis. ASSESSMENT: Lower back pain in the setting of severe central canal stenosis at L3-4 and L4-5 TREATMENT PLAN: Patient is an 83-year-old male who presents for initial evaluation of lower back pain for several years. History and physical are most consistent with axial low back pain upon standing and walking inthe setting of severe central canal stenosis at L3-4 and L4-5. Patient has no pain otherwise duringsitting or resting. At this time, he does not exhibit neurologic compromise or signs of myelopathy. We will start a course of conservative therapy to include physical therapy and gabapentin 300 mg at bedtime. Side effect profile of gabapentin along with titration/weaning instructions were given. He will start with 300 mg at bedtime only and contact the clinic in 2-3 weeks and with an update on how he is tolerating the medication. If he is tolerating the medication well, we may consider going to BID dosing. Otherwise, the patient will return to the clinic in 6-8 weeks to see how he has responded to physical therapy. We may consider injection in the future if these interventions are not helpful. Findings and plan reviewed, questions answered, and the patient is in agreement. FOLLOW UP: 6-8 weeks AUBREY Cordova, PANathalyC [facility] Collaborative practice with Dr. Konrad Lange and Dr. Cathy Larsen documented in this encounter Plan of Treatment Not on file documented as of this encounter Visit Diagnoses Diagnosis Chronic 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- Primary Spinal stenosis, lumbar region, with neurogenic claudication documented in this encounter Care Teams Roof Fixer Relationship Specialty Start Date End Date Bao Pierre MD [address] [place] [address] PCP - General 12/22/16 documented as of this encounter
--- OUTSIDE RECORDS SUMMARY | 2024-10-01 08:48 | XMS_ITS | Encounter Summary ---
Author Organization [facility] Healthcare Address [address] [place] [address] Care Team Providers Care Aircraft Time Clerk Name Role Phone Bao Pierre MD Primary Care Provider [phone] Patricia Tucker RN Unavailable [phone] Reason for Visit * Reason Comments Post-Surgical Patient Visit Encounter Details Date Type Department Care Team (Late st Contact Info) Description 05/29/2018 BP Surgical [facility] OP CASE MANAGEMENT [address] [place] [address] Patricia Tucker, RN [address] [facility] [address] [place] [address] Social History Tobacco Use Types Packs/Day Years Used Date Smoking Tobacco: Former Pipe 2015 Smokeless Tobacco: Never Comments:5-6 times a day Alcohol Use Standard Drinks/Week Comments No 0 (1 standard drink = 0.6 oz pur e alcohol) Sex and Gender Information Value Date Recorded Sex Assigned at Not on file Legal Sex Male 9:03 PM LEAD MASON TENDER Gender Identity Not on file Sexual Orientation Straight 10/15/2019 10 :34 PM LEAD MASON TENDER documented as of this encounter Progress Notes * Patricia Tucker RN - 05/29/2018 10:43 AM CDT Met patient's niece at bedside and OCM role discussed. Niece (joint technology coach) was given information packet with contact numbers for OCM. She verbalized an understanding of the information covered. Will follow-up per guidelines as needed. ROSA Head, RN [phone] or [phone] or after hour s/weekends [phone] documented in this encounter Plan of Treatment Not on file documented as of this encounter Visit Diagnoses Not on filedocumented in this encounter Care Teams Aircraft Time Clerk Relationship Specialty Start Date End Date Bao Pierre MD [address] [id number] PCP - General 12/22/16 Patricia Tucker, RN [address] [address] [facility] Records Management Officer 05/28/18 1 10/26/17 documented as of this encounter
--- OUTSIDE RECORDS SUMMARY | 2024-10-01 08:48 | XMS_ITS | Encounter Summary ---
Author Organization [facility] Healthcare Address [address] [place] [address] Care Team Providers Care Technical Sales Specialist Name Role Phone Bao Pierre MD Primary Care Provider [phone] Patricia Tucker RN Unavailable [phone] Reason for Visit * Reason Comments Post-op Problem Encounter Details Date Type Department Care Team (Late st Contact Info) Description 06/09/2018 12:32 PM CDT - 06/09/2018 9:04 PM CDT Emergency [facility] Emergency Department [address] [place] [id number] Aruna Ibarra MD PhD [address] [place] [address] Malcom Thompson MD [address] [place] [address] Post-operative pain (Primary Dx) Discharge Disposition: Discharge to home [...] on file Legal Sex Male 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 Gender Identity Not on file Sexual Orientation Straight 10/15/2019 10 :34 PM RUST PROOFER documented as of this encounter Last Filed Vital Signs Vital Sign Reading Time Taken Comments Blood Pressure 98/69 06/09/2018 8:00 PM CDT Pulse 79 06/09/2018 8:00 PM CDT Temperature 37.3 ??C (99.1 ??F) 06/09/2018 12:06 PM C DT Respiratory Rate 14 06/09/2018 7:00 PM CDT Oxygen Saturation 96% 06/09/2018 8:00 PM CDT Inhaled Oxygen Concentration - - Weight - - Height - - Body Mass Index - - documented in this encounter Discharge Instructions * Discharge Instructions* Sophy Guzman NP - 06/09/2018 8:09 PM CDT Please continue all previously prescribed medications. You do not have a blood clot in your leg. You will likely have a significant amount of bruising from your surgery. Follow up with your orthopedic surgeon as previously scheduled. If you get worsening swelling, chest pain, shortness of breath return to the emergency room. * Attachments The following attachments cannot be sent through Care Everywhere. * Pain Management After Surgery (Discharge Care) (Palestinian) documented in this encounter Medications at Time [...] MG ORAL TABLET DELAYED RELEASE 09/13/2013 1 chcg-omn-mhn-dayana- orqh-jboq-kis (Fiber 6) 1,000 mg tablet FIBER 09/13/2013 1 celecoxib (CeleBREX) 100 mg capsuleIndication s:Osteoarthritis, Postoperative Acute Pain TAKE 2 PILLS WITH BREAKFAST THE DAY BEFORE SX. TAKE 1 PILL BID AFTER DISCHARGE. 10 capsule 05/23/2018 9 cyclobenzaprine (FLEXERIL) 10 mg tablet Take 0.5 tablets (5 mg total) by mouth every 8 (eight) hours as needed for muscle spasms. 12 tablet 06/09/2018 9 finasteride (PROSCAR) 5 mg tabletIndications :benign [...] Refills Last Filled Start Date End Date cyclobenzaprine (FLEXERIL) 10 mg tablet Take 0.5 tablets (5 mg total) by mouth every 8 (eight) hours as needed for muscle spasms. 12 tablet 06/09/2018 9 documented in this encounter Discharge Disposition Disposition Code Departure Means Destination Discharge to home or self care documented in this encounter Consult Notes * Maggy Epstein MD - 06/09/2018 6:20 PM CDTAssociated Order(s): CONSULT TO ORTHO-TRAUMA Ortho Trauma Consult Reason for Consult: ? Surgical site infection Requesting Provider: Jeannie Gilbert MD Requesting Service: ED Attending Physician: Malcom Thompson MD Subjective Patient is a 82 y.o. male with chief complaint of L hip pain. HPI: Ilsa Alvares is a 82yo male presenting with concern of a L THR surgical site infection w/ painless LLE swelling. Patient underwent left total hip replacement with Dr. Liang 05/28/2018, has reporteda uneventful recovery up until today when he felt that his surgical site as pouched out and has become tender. Denies subjective fever and chills, reports small amounts of serosanguineous drainage from surgical site. Also reports new onset left lower extremity swelling. Denies chest pain or shortness of breath, denies tenderness to lower leg. Reports that he has been taking aspirin 325 mg b.i.d. and using sequential compression devices as indicated by the postop protocol for reconstruction team. Location: Left lower extremity Quality: achy pain Duration: days Severity: mild Baseline Ambulatory Status: community Assistive Device none Past Medical History: Diagnosis Date ??? Arthritis [...] ??? CATARACT EXTRACTION, BILATERAL ~2013, 2014 ??? MOHS SURGERY multiple ??? POSTERIOR LAMINECTOMY / DECOMPRESSION LUMBAR SPINE 2015 ??? IN REMOVAL GALLBLADDER 2017 ??? SHOULDER SURGERY 2012 rotator cuff repair (Not in a hospital admission) Allergies Allergen Reactions ??? Epinephrine Dizziness Passed out for 4 hours in childhood Social History Substance Use Topics ??? Smoking status: Former Smoker Types: Pipe Start date: 1965 Quit date: 2015 ??? Smokeless tobacco: Never Used Comment: 5-6 times a day ??? Alcohol use No Family History Problem Relation Age of [...] TW Conv) ??? Anesthesia problems Neg Hx Review of Systems: Review of systems per HPI and otherwise all systems are negative Objective Vitals: Vitals: 06/09/18 1730 BP: 103/78 Pulse: 62 Resp: 13 Temp: SpO2: Physical Exam: Well-developed, well-nourished, in no acute distress. Alert and oriented ?? 3. Normal respirations, no dyspnea with speaking. LLE Surgical site clean and dry, no areas of dehiscence, no erythema. On palpation a sub incision mass is palpated 3 cm medial and lateral to incision, no tenderness to palpation more than expected over a post surgical site. No tenderness on palpation of calf. Strength 5/5 TA/GS/EHL/FHL SILT DP/SP/S/S nerve distributions +DP/PT pulses Toes WWP, BCR <2 seconds Lab/Diagnostic Review: Laboratory review: Lab results in the last 12 hours: Recent Results (from the past 12 hour(s)) CBC with auto differential Collection Time: 06/09/18 1:55 PM Result Value Ref Range WBC 10.3 (H) 3.8 - 9.9 K/cumm Hgb 12.2 (L) 13.0 - 17.5 g/dL Hct 37.4 (L) 38.9 - 50.3 % Plt 250 150 - 400 K/cumm MPV 10.7 9.1 - 12.3 fL RBC 3.94 (L) 4.30 - 5.80 M/cumm MCV 94.9 81.3 - 96.4 fL MCH 31.0 27.1 - 33.3 pg MCHC 32.6 32.3 - 35.7 g/dL RDW CV 13.2 11.1 - 14.9 % RDW SD 45.4 35.7 - 48.1 fL NRBC Abs 0.00 0.00 - 0.01 K/cumm Basic metabolic panel Collection Time: 06/09/18 1:55 PM Result Value Ref Range Sodium 138 135 - 145 mmol/L Potassium, pl 4.5 3.3 - 4.9 mmol/L Chloride 102 97 - 110 mmol/L CO2 26 22 - 32 mmol/L Anion Gap 10 2 - 15 mmol/L BUN 20 8 - 25 mg/dL Creatinine 1.08 0.80 - 1.30 mg/dL Glucose 118 70 - 199 mg/dL Calcium 8.9 8.5 - 10.3 mg/dL Differential, auto Collection Time: 06/09/18 1:55 PM Result Value Ref Range Neutrophil absolute 8.5 (H) 1.7 - 6.5 K/cumm Immature granulocyte absolute 0.1 0.0 - 0.1 K/cumm Lymphocytes absolute 1.1 0.8 - 3.3 K/cumm Monocyte absolute 0.5 0.2 - 0.8 K/cumm Eosinophils absolute 0.1 0.0 - 0.5 K/cumm Basophils, abs 0.1 0.0 - 0.1 K/cumm Neutrophils 82.2 % Immature granulocytes 0.9 % Lymphocytes 10.5 % Monocytes 4.8 % Eosinophils 0.9 % Basophils 0.7 % Erythrocyte sedimentation rate Collection Time: 06/09/18 3:09 PM Result Value Ref Range Erythrocyte sedimentation rate 17 1 - 20 mm/hr CRP (acute phase) Collection Time: 06/09/18 3:09 PM Result Value Ref Range C-RP 3.5 <=10.0 mg/L Radiology Review: AP of the pelvis was compared to prior imaging 05/28/2018, implant remains in stable position, no concern for hardware loosening or position change. Only interval change is a new soft tissue density beneath the surgical site but above the fascia, likely representing surgical site hematoma. Assessment /Plan Assessment/Plan: Ilsa Alvares is an 82-year-old male status post left total hip arthroplasty 05/28/18 now with the sub surgical site hematoma. There is no concern for a surgical site infection nor infection hematoma as his white blood cell count has continued to decrease from the post surgical level and his inflammatory markers, ESR and CRP, are within normal limits. In regards to his left lower extremity swelling, there is no concern for DVT both with his physical exam as well as a negative Doppler. -follow-up with Dr. Liang at normally scheduled appointment -reassured patient that there is no concern for infection or an issue at his surgical site -weightbearing as tolerated left lower extremity -please call [phone] with any questions or concerns Signed, Maggy Epstein M.D. Orthopaedic Surgery, PGY-1 Cosigned by Hilary Liang MD at 06/18/2018 11:00 AM CDT documented in this encounter ED Notes * Aruna Ibarra MD PhD - 06/09/2018 1:27 PM CDT HPI Chief Complaint Patient presents with ??? Post-op Problem Patient is an 82-year-old male past medical history significant for LD, HTN, osteoarthritis, complete left hip arthroplasty presenting with left hip pain. Patient is 11 days status post left hip arthroplasty. Reports that since his arthroplasty he has noticed progressive swelling of his incision site. Reports some drainage from the incision site. Described as purulent and bloody. Patient states he has been able to bear weight on his hip. Patient states he has been able to ambulate without difficulty. Patient History Patient Active Problem List Diagnosis [...] ??? CATARACT EXTRACTION, BILATERAL ~2013, 2014 ??? MOHS SURGERY multiple ??? POSTERIOR LAMINECTOMY / DECOMPRESSION LUMBAR SPINE 2015 ??? IN REMOVAL GALLBLADDER 2017 ??? SHOULDER SURGERY 2012 [...] ??? Anesthesia problems Neg Hx Social History Substance Use Topics ??? Smoking status: Former Smoker Types: Pipe Start date: 1965 Quit date: 2015 ??? Smokeless tobacco: Never Used Comment: 5-6 times a day ??? Alcohol use No Social History Social History Narrative Smoking A Pipe : (Added by TW Conv) Current smoker : (Added by TW Conv) No alcohol use : (Added by TW Conv) : (Added by TW Conv) Retired : (Added by TW Conv) Review of Systems Review of Systems Constitutional: Negative for chills and fever. HENT: Negative for sore throat. Eyes: Negative for visual disturbance. Respiratory: Negative for shortness of breath. Cardiovascular: Negative for chest pain. Gastrointestinal: Negative for abdominal pain. Genitourinary: Negative for dysuria. Musculoskeletal: Positive for arthralgias. Negative for back pain. Skin: Positive for wound. Negative for rash. Neurological: Negative for syncope. All other systems reviewed and are negative. Physical Exam ED Triage Vitals [06/09/18 1206] Temp Pulse Resp BP SpO2 37.3 ??C (99.1 ??F) 74 17 135/73 95 % Temp src Heart Rate Source Patient Position BP Location FiO2 (%) Oral -- -- -- -- Physical Exam Constitutional: He appears well-developed and well-nourished. HENT: Head: Normocephalic and atraumatic. Eyes: Conjunctivae and EOM are normal. Neck: Neck supple. Cardiovascular: Normal rate and regular rhythm. No murmur heard. LLE Edema Pulmonary/Chest: Effort normal and breath sounds normal. No respiratory distress. Abdominal: Soft. There is no tenderness. Musculoskeletal: He exhibits no edema. Left hip: He exhibits tenderness and swelling. He exhibits normal range of motion and normal strength. Surgical incision with overlying erythema Neurological: He is alert. Skin: Skin is warm and dry. Psychiatric: He has a normal mood and affect. Nursing note and vitals reviewed. MDM MDM Patient 82-year-old male with past medical history significant for osteoarthritis 11 day status post left hip arthroplasty. Patient presented today with new incisional swelling and drainage. Physicalexam remarkable for incisional swelling. Patient has 5/5 strength bilateral lower extremities, and s ensory intact distally. Differential: Soft tissue infection versus seroma Plan: We will obtain basic labs. We will obtain x-ray of the left hip and pelvis We will consult Ortho. Dispo: Pending ortho evaluation Attending Summary of Care 82-year-old male history of left total hip arthroplasty on May 28, 2018, who now presents with increased swelling at his surgical site. Patient has had increased swelling for several days with some serosanguineous drainage. Over the last few days he has noticed that the swelling is moving more caudally. This morning, he also noted swelling of his left leg from the thigh down to the ankle whichwas new. Patient is not on any anticoagulants and is only taking aspirin at this time. Denies recent fever, chills, chest pain, shortness of breath, abdominal pain, nausea, vomiting. Exam-regular rate and rhythm, clear to auscultation bilaterally, abdomen soft nontender nondistended, left hip with s urgical incision which appears clean/dry/intact, with no surrounding erythema, with minimal serous drainage, with surrounding swelling, left lower extremity is also larger than the right with some mild edema. Differential diagnosis includes leg swelling, DVT, seroma, lower suspicion for acute woundinfection. Plan for plain films of left hip, labs, ortho consult, lower extremity Dopplers, reassess . I have seen and examined the patient on 06/09/2018 . I agree with the findings and plan of care as documented in the resident's note. ED Course as of Jun 11 704 Time: 06/09 1345 Comment: Patient reports that he has had 1 day of left lower extremity swelling. On exam left lowerextremity is slightly more edematous than right. Will order left lower extremity Doppler. By: Jeannie Gilbert MD Time: 06/09 1448 Comment: Spoke with Ortho will evaluate patient By: Jeannie Gilbert MD Time: 06/09 1951 Comment: Vascular lab instructor at bedside for dopplers By: Sophy Guzman NP Post-operative pain Aruna Ibarra MD PhD 06/09/18 1601 Aruna Ibarra MD PhD 06/11/18 0704 * Chris Johnson RN - 06/09/2018 12:32 PM CDT Bed: ED2-18 Expected date: Expected time: Means of arrival: Car Comments: Chris Johnson RN 06/09/18 1232 * Jessica Mena RN - 06/09/2018 12:04 PM CDT Left hip total hip replacement 05/28/18 now with swelling and possible deformity near incision site.Incision site wnl/santiago present. Pedal pulses present. Swelling to left left slightly improving. Ambulating with walker. documented in this encounter Miscellaneous Notes * ED Re-evaluation Note - Sophy Guzman NP - 06/09/2018 8:11 PM CDT ED Re-evaluation Patient does not meet obs admission criteria. Received Doppler report which was negative. Spoke with Ortho and plan to follow up as previously scheduled in the orthopedic clinic. Discussed findings with patient patient is okay with plan of care. Patient given strict return precautions. Sophy Guzman NP 06/09/182010 * ED Re-evaluation Note - Zuleika Arguello MD - 06/09/2018 3:15 PM CDT ED Re-evaluation I, Zuleika Arguello, received sign out from Jeannie Gilbert (Resident) in the presence of Malcom Thompson (Attending). I reviewed all pertinent labs, imaging, allergies and history. 82 y/o M w/ a hx of hip OA s/p L hip arthroplasty 11 days ago, HTN, p/w L hip pain, LLE swelling. On exam some L incisional site drainage, also new LLE swelling not on AC. Ortho consulted, pending evaluation. Also pending LLE duplex. Plan to f/u ortho recs, LE duplex. Dispo: obs to complete workup 1630: Spoke w/ ortho, evaluated the pt and thinks likely subincisional hematoma w/ hardened blood, no c/f surgical site infxn (ESR/CRP wnl, XR w/o concerning findings). Also low c/f DVT given he's onASA and no pain w/ palpation of calf, told her we'd be getting duplex and she'd like to know results. OK to go home from ortho perspective, dispo pending duplex. 0: Pt still hasn't received LE duplex. Called vascular lab, closed. Placed c/s for vascular surgery. Spoke w/ vascular fellow, will eval for MISAEL duplex 1929: Spoke w/ family extensively about risks/benefits of leaving AMA, after decision made decisionnot to leave AMA. Was told it may be a few hours before duplex gets done, pt's family voiced understanding. Pt being transferred to Obs 2029: LE duplex negative. Discharged by obs provider, follow up w/ orthopedic surgeon as scheduled.Ortho made aware of negative duplex. ED Course as of Jun 09 2034 Time: 06/09 1345 Comment: Patient reports that he has had 1 day of left lower extremity swelling. On exam left lowerextremity is slightly more edematous than right. Will order left lower extremity Doppler. By: Jeannie Gilbert MD Time: 06/09 1448 Comment: Spoke with Ortho will evaluate patient By: Jeannie Gilbert MD Time: 06/09 1951 Comment: Vascular lab instructor at bedside for dopplers By: Sophy Guzman NP Labs Reviewed CBC WITH AUTO DIFFERENTIAL - Abnormal Result Value WBC 10.3 (*) Hgb 12.2 (*) Hct 37.4 (*) Plt 250 MPV 10.7 RBC 3.94 (*) MCV 94.9 MCH 31.0 MCHC 32.6 RDW CV 13.2 RDW SD 45.4 NRBC Abs 0.00 Narrative: THE COLLECTION LOCATION IS [facility] ED2-18 DIFFERENTIAL AUTO - Abnormal Neutrophil absolute 8.5 (*) Immature granulocyte absolute 0.1 Lymphocytes absolute 1.1 Monocyte absolute 0.5 Eosinophils absolute 0.1 Basophils, abs 0.1 Neutrophils 82.2 Immature granulocytes 0.9 Lymphocytes 10.5 Monocytes 4.8 Eosinophils 0.9 Basophils 0.7 Narrative: BASIC METABOLIC PANEL Sodium 138 Potassium, pl 4.5 Chloride 102 CO2 26 Anion Gap 10 BUN 20 Creatinine 1.08 Glucose 118 Calcium 8.9 Narrative: THE COLLECTION LOCATION IS [facility]18 ERYTHROCYTE SEDIMENTATION RATE Erythrocyte sedimentation rate 17 Narrative: THE COLLECTION LOCATION IS [address] CRP (ACUTE PHASE) C-RP 3.5 Narrative: THE COLLECTION LOCATION IS [place] [address] ATTENDING ACCEPT NOTE I have received report from Dr. Aruna Ibarra. This 82-year-old male 11 days s/p left hip arthroplasty presented with incisional swelling and pain. Also noted was left LE swelling concerning for possible DVT. The Orthopedic Surgery service has seen and evaluated the patient, and we are waiting on their recommendations at this time. Also waiting on VELMA to call for patient to the Doppler ultrasound suite. Malcom Thompson M.D. 06/09/2018 15:50 CDT Zuleika Arguello MD Resident 06/09/182033 Cosigned by Malcom Thompson MD at 06/09/2018 10:33 PM CDT documented in this encounter Plan of Treatment Not on file documented as of this encounter Procedures Procedure Name Priority Date/Time Associated Diagnosis Comments US VEIN DUPLEX LOWER EXTREMITY BILATERAL COMPLETE ED 06/09/2018 8:10 PM CDT ERYTHROCYTE SEDIMENTATION RATE STAT 06/09/2018 3:09 PM CDT CRP (ACUTE PHASE) STAT 06/09/2018 3:0 9 PM CDT DIFFERENTIAL AUTO STAT 06/09/2018 1:5 5 PM CDT CBC WITH AUTO DIFFERENTIAL STAT 06/09/2018 1:55 PM CDT BASIC METABOLIC PANEL STAT 06/09/2018 1:55 PM CDT XR HIP LEFT W PELVIS 2 OR 3 VIEWS ED 06/09/2018 1:32 PM CDT documented in this encounter Results * US Vein Duplex Lower Extremity Bilateral Complete (06/09/2018 8:10 PM CDT) Anatomical Region Laterality Modality Vascular Bilateral Ultrasound 06/09/2018 7:48 PM CDT Narrative 06/12/2018 9:50 AM CDT [facility] - Department of Vascular Surgery, Vascular Laboratory [address] [place] [address] Lower Extremity Venous Ultrasound Report Patient Name: ILSA ALVARES C : [id number] (82y 10m) Study Date: 06/09/2018 7:48:34 PM Gender: M Tech: TT Location: ED2-18 Ref.Physician: MALCOM THOMPSON Height(Cm): BSA: Weight(Kg): Quality: Adequate Order Physician: JEANNIE GILBERT Procedures: Vascular Report: Venous Duplex imaging was performed bilaterally in the lower extremities. The common femoral, femoral, popliteal, posterior tibial, peroneal veins were evaluated for patency, spontaneity and phasicity with Doppler, compression and augmentation maneuvers. Great saphenous vein proximal at the junction was evaluated with compression maneuvers. Indications: Swelling lower extremity, left. Findings: Performing Windows Phone Developer: Lv Barrera RVT. Bilateral: Venous Doppler signals in the bilateral lower extremity are within normal limits for spontaneity and phasicity and respond normally to augmentation maneuvers. No evidence of deep vein thrombus by duplex, proximal to the calf. Conclusions: Venous Doppler signals in the bilateral lower extremity are within normal limits for spontaneity and phasicity and respond normally to augmentation maneuvers. No evidence of deep vein thrombus by duplex, proximal to the calf. History: S/p hip surgery. Previous Studies: No previous studies for comparison. Disclaimer: The signing physician has reviewed all images pertaining to this test. These images and this report will be retained in the patient chart by the Vascular Laboratory for the legally required time period. This chart constitutes the legal record of any testing performed. Electronically Signed By: Prieto Whalen MD FACS 2018-06-12 09:50:17 CDT CC: CC: Procedure Note Prieto Whalen MD - 06/12/2018 [facility] - Department of Vascular Surgery,Vascular Laboratory [address] [place] [address] Lower Extremity Venous Ultrasound Report Patient Name: ILSA ALVARES CPatient ID: [id number] : [id number] (82y 10m)Study Date: 06/09/2018 7:48:34 PM Gender: MAccession #: [id number] Tech: TTLocation: ED2-18 Ref.Physician: Noelle THOMPSON(Cm): BSA: Weight(Kg): Quality: AdequateOrder Physician: JEANNIE GILBERT Procedures: Vascular Report: Venous Duplex imaging was performed bilaterally in the lower extremities.The common femoral, femoral, popliteal, posterior tibial, peroneal veins wereevaluated for patency, spontaneity and phasicity with Doppler, compression and augmentationmaneuvers. Great saphenous vein proximal at the junction was evaluated with compressionmaneuvers. Indications: Swelling lower extremity, left. Findings: Performing Windows Phone Developer: Lv Barrera RVT. Bilateral: Venous Doppler signals in the bilateral lower extremity are within normallimits for spontaneity and phasicity and respond normally to augmentation maneuvers.No evidence of deep vein thrombus by duplex, proximal to the calf. Conclusions: Venous Doppler signals in the bilateral lower extremity are within normallimits for spontaneity and phasicity and respond normally to augmentation maneuvers.No evidence of deep vein thrombus by duplex, proximal to the calf. History: S/p hip surgery. Previous Studies: No previous studies for comparison. Disclaimer: The signing physician has reviewed all images pertaining to this test.These images and this report will be retained in the patient chart by the VascularLaboratory for the legally required time period. This chart constitutes the legal record ofany testing performed. Electronically Signed By: Prieto Whalen MD [facility] 2018-06-12 09:50:17 CDT CC: CC: Jeannie Gilbert MD IMG US PROCEDURES Final Result * CRP (acute phase) (06/09/2018 3:09 PM CDT) [facility] CRP 3.5 <=10.0 mg/L [facility] Blood specimen (specimen) 06/09/2018 3:09 PM CDT 06/09/2018 3:23 PM CDT Narrative [facility] - 06/09/2018 3:50 PM CDT THE [facility] COLLECTION LOCATION IS [facility] ED218 Jeannie Gilbert MD LAB BLOOD ORDERABLES Fi nal Result [facility] Department [place] [address] * Erythrocyte sedimentation rate (06/09/2018 3:09 PM CDT) [facility] Erythrocyte sedimentation rate 17 1 - 20 mm/hr [facility] Blood specimen (specimen) 06/09/2018 3:09 PM CDT 06/09/2018 3:23 PM CDT Narrative [facility] - 06/09/2018 3:49 PM CDT THE [facility] COLLECTION LOCATION IS [place] [address] Jeannie Gilbert MD LAB BLOOD ORDERABLES Fi nal Result [facility] Department [place] [address] * (ABNORMAL) Differential, auto (06/09/2018 1:55 PM CDT) [facility] Neutrophil abs 8.5(H) 1.7 - 6.5 K/cumm [facility] Imm gran abs 0.1 0.0 - 0.1 K/cumm [facility] Lymphocyte abs 1.1 0.8 - 3.3 K/cumm [facility] Monocyte abs 0.5 0.2 - 0.8 K/cumm [facility] Eosinophil abs 0.1 0.0 - 0.5 K/cumm [facility] Basophil abs 0.1 0.0 - 0.1 K/cumm [facility] Neutrophil pct 82.2 % [facility] Comment: Interpretive Data Percent cell count reference ranges are not reported, since discordance with absolute values may lead to misinterpretation of CBC data. Current Interpretive Data was last revised on 2018. Imm gran pct 0.9 % [facility] Comment: Interpretive Data Percent cell count reference ranges are not reported, since discordance with absolute values may lead to misinterpretation of CBC data. Current Interpretive Data was last revised on 2018. Lymphocyte pct 10.5 % [facility] Comment: Interpretive Data Percent cell count reference ranges are not reported, since discordance with absolute values may lead to misinterpretation of CBC data. Current Interpretive Data was last revised on 2018. Monocyte pct 4.8 % [facility] Comment: Interpretive Data Percent cell count reference ranges are not reported, since discordance with absolute values may lead to misinterpretation of CBC data. Current Interpretive Data was last revised on 2018. Eosinophil pct 0.9 % [facility] Comment: Interpretive Data Percent cell count reference ranges are not reported, since discordance with absolute values may lead to misinterpretation of CBC data. Current Interpretive Data was last revised on 2018. Basophil pct 0.7 % [facility] Comment: Interpretive Data Percent cell count reference ranges are not reported, since discordance with absolute values may lead to misinterpretation of CBC data. Current Interpretive Data was last revised on 2018. Blood specimen (specimen) 06/09/2018 1:55 PM CDT 06/09/2018 2:01 PM CDT Narrative [facility] - 06/09/2018 2:07 PM CDT Jeannie Gilbert MD LAB BLOOD ORDERABLES Fi nal Result [facility] [place] [address] * Basic metabolic panel (06/09/2018 1:55 PM CDT) Pathologist [facility] Sodium 138 135 - 145 mmol/L [facility] Potassium, pl 4.5 3.3 - 4.9 mmol/L [facility] Chloride 102 97 - 110 mmol/L [facility] CO2 26 22 - 32 mmol/L [facility] Anion gap 10 2 - 15 mmol/L [facility] BUN 20 8 - 25 mg/dL [facility] Creatinine 1.08 0.80 - 1.30 mg/dL [facility] Glucose 118 70 - 199 mg/dL [facility] Comment: Interpretive Data Fasting glucose >/= [...] 2017. Calcium 8.9 8.5 - 10.3 mg/dL [facility] Blood specimen (specimen) 06/09/2018 1:55 PM CDT 06/09/2018 2:01 PM CDT Narrative [facility] - 06/09/2018 2:26 PM CDT THE COLLECTION LOCATION IS [facility] ED2-18 Jeannie Gilbert MD LAB BLOOD ORDERABLES Fi nal Result [facility] [place] [address] * (ABNORMAL) CBC with auto differential (06/09/2018 1:55 PM CDT) Pathologist [facility] WBC 10.3(H) 3.8 - 9.9 K/cumm [facility] Hgb 12.2(L) 13.0 - 17.5 g/dL [facility] Hct 37.4(L) 38.9 - 50.3 % [facility] Plt 250 150 - 400 K/cumm [facility] MPV 10.7 9.1 - 12.3 fL [facility] RBC 3.94(L) 4.30 - 5.80 M/cumm [facility] MCV 94.9 81.3 - 96.4 fL [facility] MCH 31.0 27.1 - 33.3 pg [facility] MCHC 32.6 32.3 - 35.7 g/dL [facility] RDW CV 13.2 11.1 - 14.9 % [facility] RDW SD 45.4 35.7 - 48.1 fL [facility] NRBC abs 0.00 0.00 - 0.01 K/cumm [facility] Blood specimen (specimen) 06/09/2018 1:55 PM CDT 06/09/2018 2:01 PM CDT Narrative [facility] - 06/09/2018 2:07 PM CDT THE COLLECTION LOCATION IS [facility] ED2-18 Jeannie Gilbert MD LAB BLOOD ORDERABLES nal Result [facility] [place] [address] * XR Hip Left 2 or 3 Views W Pelvis (06/09/2018 1:32 PM CDT) Anatomical Region Laterality Modality Lower Extremities, Hip, Pelvis Left C omputed Radiography 06/09/2018 1:53 PM CDT Impressions 06/09/2018 2:23 PM CDT 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 No acute fracture. Electronically signed by: Bao Main M.D. Narrative 06/09/2018 2:23 PM CDT EXAMINATION: Left hip 2 or 3 views with pelvis HISTORY: 82-year-old man status post left total hip replacement now with swelling and pain near the incision site. FINDINGS: 2 views of the left hip and an AP view the pelvis are submitted for interpretation with comparison to prior radiograph dated 05/28/2018. There are stable postoperative changes of a left total hip arthroplasty in near anatomic alignment. Skin santiago are noted. ??No acute fracture is identified. 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 Procedure Note Bao Main MD - 06/09/2018 EXAMINATION: Left hip 2 or 3 views with pelvis HISTORY: 82-year-old man status post left total hip replacement now with swelling and pain near the incision site. FINDINGS: 2 views of the left hip and an AP view the pelvis are submitted for interpretation with comparison to prior radiograph dated 05/28/2018. There are stable postoperative changes of a left total hip arthroplasty in near anatomic alignment. Skin santiago are noted. No acute fracture is identified. 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 IMPRESSION: 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 No acute fracture. Electronically signed by: Bao Main M.D. Jeannie Gilbert MD IMG XR PROCEDURES Final Result documented in this encounter Visit Diagnoses Diagnosis Post-operative pain- Primary Other acute postoperative pain documented in this encounter Administered Medications Inactive Administered Medications - up to 3 most recent administrations Medication Order MAR Action Action Date Dose Rate Site cyclobenzaprine (FLEXERIL) tablet 5 mg 5 mg, oral, Once, On 06/09/18 at 1932, For 1 dose Given 06/09/2018 7:45 PM CDT 5 mg ketorolac (TORADOL) injection 15 mg 15 mg, intravenous, Once, On 06/09/18 at 1619, For 1 dose Given 06/09/2018 4:30 PM CDT 15 mg ketorolac (TORADOL) injection 30 mg 30 mg, intravenous, Once, On 06/09/18 at 1400, For 1 dose Given 06/09/2018 2:26 PM CDT 30 mg documented in this encounter Active and Recently Administered Medications Times are shown in CDT. Scheduled Medication Order 06/07/2018 06/08/2018 06/09/2018 cyclobenzaprine (FLEXERIL) tablet 5 mg (COMPLETED) 5 mg, oral, Once, On 06/09/18 at 1932, For 1 dose 1944 (Given - Provid er: Paulo Velazquez RN) ketorolac (TORADOL) injection 15 mg (COMPLETED) 15 mg, intravenous, Once, On 06/09/18 at 1619, For 1 dose 1630 (Given - Provid er: Shama Cedillo RN) ketorolac (TORADOL) injection 30 mg (COMPLETED) 30 mg, intravenous, Once, On 06/09/18 at 1400, For 1 dose 1426 (Given - Provid er: Shama Cedillo RN) documented in this encounter Orders Consult Count Last Ordered Date First Orde red Date CONSULT TO ORTHO-TRAUMA 1 06/09/2018 ADT Patient Update Count Last Ordered Date Firs t Ordered Date PLACE IN ED OBSERVATION 06/09/2018 documented in this encounter Care Teams Technical Sales Specialist Relationship Specialty Start Date End Date Bao Pierre MD [address] [address] PCP - General 12/22/16 Patricia Tucker RN [address] [address] [facility] Outpatient Garage Attendant 05/28/18 1 10/26/17 documented as of this encounter
--- OUTSIDE RECORDS SUMMARY | 2024-10-01 08:48 | XMS_ITS | Encounter Summary ---
Author Organization [facility] Healthcare Address [address] [place] [address] Care Team Providers Care Field Crop Farm Worker Name Role Phone Bao Pierre MD Primary Care Provider [phone] Patricia Tcuker RN Unavailable [phone] Encounter Details Date Type Department Care Team (Late st Contact Info) Description 06/09/2018 7:40 PM CDT Ancillary Procedure [facility] Vascular Lab [address] [place], [place] [id number] Social History Tobacco Use Types Packs/Day Years Used Date Smoking Tobacco: Former Pipe 2015 Smokeless Tobacco: Never Comments:5-6 times a day Alcohol Use Standard Drinks/Week Comments No 0 (1 standard drink = 0.6 oz pur e alcohol) Sex and Gender Information Value Date Recorded Sex Assigned at Not on file Legal Sex Male 9:03 PM DIRECTOR OF RETAIL MERCHANDISING Gender Identity Not on file Sexual Orientation Straight 10/15/2019 10 :34 PM DIRECTOR OF RETAIL MERCHANDISING documented as of this encounter Plan of Treatment Not on file documented as of this encounter Procedures Procedure Name Priority Date/Time Associated Diagnosis Comments US VEIN DUPLEX LOWER EXTREMITY BILATERAL COMPLETE ED 06/09/2018 8:10 PM CDT documented in this encounter Results * US Vein Duplex Lower Extremity Bilateral Complete (06/09/2018 8:10 PM CDT) Anatomical Region Laterality Modality Vascular Bilateral Ultrasound 06/09/2018 7:48 PM CDT Narrative 06/12/2018 9:50 AM CDT [facility] - Department of Vascular Surgery, Vascular Laboratory [address] [place] [address] Lower Extremity Venous Ultrasound Report Patient Name: ILSA ALVARES C : 10-1935 (82y 10m) Study Date: 06/09/2018 7:48:34 PM Gender: M Tech: TT Location: 2-18 Ref.Physician: MALCOM THOMPSON Height(Cm): BSA: Weight(Kg): Quality: Adequate Order Physician: JEANNIE LAM Procedures: Vascular Report: Venous Duplex imaging was performed bilaterally in the lower extremities. The common femoral, femoral, popliteal, posterior tibial, peroneal veins were evaluated for patency, spontaneity and phasicity with Doppler, compression and augmentation maneuvers. Great saphenous vein proximal at the junction was evaluated with compression maneuvers. Indications: Swelling lower extremity, left. Findings: Performing Pest Control Operator: Lv Barrera RVT. Bilateral: Venous Doppler signals [...] performed. Electronically Signed By: Prieto Whalen MD [facility] 2018-06-12 09:50:17 CDT CC: CC: Procedure Note Prieto Whalen MD - 06/12/2018 [facility] - Department of Vascular Surgery,Vascular Laboratory [address] [place] [address] Lower Extremity Venous Ultrasound Report Patient Name: ILSA ALVARES CPatient ID: [id number] : 1935 (82y 10m)Study Date: 06/09/2018 7:48:34 PM Gender: MAccession #: [id number] Tech: TTLocation: ED2-18 Ref.Physician: Noelle THOMPSON(Cm): BSA: Weight(Kg): Quality: AdequateOrder Physician: JEANNIE LAM Procedures: Vascular Report: Venous Duplex imaging was performed bilaterally in the lower extremities.The common femoral, femoral, popliteal, posterior tibial, peroneal veins wereevaluated for patency, spontaneity and phasicity with Doppler, compression and augmentationmaneuvers. Great saphenous vein proximal at the junction was evaluated with compressionmaneuvers. Indications: Swelling lower extremity, left. Findings: Performing Pest Control Operator: Lv Barrera RVT. Bilateral: Venous Doppler signals [...] performed. Electronically Signed By: Prieto Whalen MD [facility] 2018-06-12 09:50:17 CDT CC: CC: Jeannie Lam MD IMG PROCEDURES Final Result documented in this encounter Visit Diagnoses Not on filedocumented in this encounter Care Teams Field Crop Farm Worker Relationship Specialty Start Date End Date Bao Pierre MD [address] [facility] [address] [place] [address] PCP - General 12/22/16 Patricia Tucker, RN [address] [facility] [address] [address] [facility] Outpatient High School Counselor 05/28/18 1 10/26/17 documented as of this encounter
--- OUTSIDE RECORDS SUMMARY | 2024-10-01 08:48 | XMS_ITS | Encounter Summary ---
Author Organization [facility] Healthcare Address [address] [place] [address] Care Team Providers Care Spear Fisher Name Role Phone Bao Pierre MD Primary Care Provider Patricia Tucker RN Unavailable [phone] Reason for Visit * Reason Comments Follow-Up Call 14 Days Encounter Details Date Type Department Care Team (Late st Contact Info) Description 06/11/2018 BP Post-Surgical [facility] OP CASE MANAGEMENT [address] [place] [address] Patricia Tucker, RN [address] [facility] [address] [place] [address] Social History Tobacco Use Types Packs/Day Years Used Date Smoking Tobacco: Former Pipe 2015 Smokeless Tobacco: Never Comments:5-6 times a day Alcohol Use Standard Drinks/Week Comments No 0 (1 standard drink = 0.6 oz pur e alcohol) Sex and Gender Information Value Date Recorded Sex Assigned at Not on file Legal Sex Male 9:03 PM DISK OPERATOR Gender Identity Not on file Sexual Orientation Straight 10/15/2019 10 :34 PM DISK OPERATOR documented as of this encounter Progress Notes * Patricia Tucker RN - 06/11/2018 10:38 AM CDT 14 day post op/follow up call: OCM spoke with patient. He went to ED over the week due to swelling at incision. He was not admitted. No concern for infection, x-ray showed no issues, dopplers were negative for blood clots. Pt was reminded of follow up appointment with Dr. Rush on , 06/21 @ 1:20pm. Reminded patient to call OCM for questions or concerns. documented in this encounter Plan of Treatment Not on file documented as of this encounter Visit Diagnoses Not on filedocumented in this encounter Care Teams Spear Fisher Relationship Specialty Start Date End Date Bao Pierre MD [address] [id number] PCP - General 12/22/16 Patricia Tucker RN [address] [address] [facility] Outpatient Canvas Goods Fabricator 05/28/18 1 10/26/17 documented as of this encounter
--- OUTSIDE RECORDS SUMMARY | 2024-10-01 08:48 | XMS_ITS | Encounter Summary ---
Author Organization [facility] Address [address] [place] [address] Phone Care Team Providers Care Plexiglas Former Name Role Phone Bao Pierre MD Primary Care Provider [phone] Encounter Details Date Type Department Care Team (Late st Contact Info) Description 04/10/2019 Orders Only [facility] Orthopaedic Surgery [address] [facility] 2nd Floor [address] [place] [address] Aristides Christopher CMA Social History Tobacco Use Types Packs/Day Years Used Date Smoking Tobacco: Former Pipe 1 2015 Smokeless Tobacco: Never Comments:5-6 times a day Alcohol Use Standard Drinks/Week Comments No 0 (1 standard drink = 0.6 oz pur e alcohol) Sex and Gender Information Value Date Recorded Sex Assigned at Not on file Legal Sex Male 9:03 PM RECRUITER ACCOUNT MANAGER Gender Identity Not on file Sexual Orientation Straight 10/15/2019 10 :34 PM RECRUITER ACCOUNT MANAGER documented as of this encounter Plan of Treatment Not on file documented as of this encounter Visit Diagnoses Not on filedocumented in this encounter Care Teams Plexiglas Former Relationship Specialty Start Date End Date Bao Pierre MD [address] [facility] [address] [place], [place] [id number] PCP - General 12/22/16 documented as of this encounter
--- OUTSIDE RECORDS SUMMARY | 2024-10-01 08:48 | XMS_ITS | Encounter Summary ---
Author Organization [facility] Address [address] [place] [address] Phone Care Team Providers Care Paint Coating Machine Operator Name Role Phone Bao Pierre MD Primary Care Provider [phone] Encounter Details Date Type Department Care Team (Late st Contact Info) Description 05/24/2018 Documentation [facility] Orthopaedic Surgery [address] [facility] 12th [place] [address] [place] [address] Portillo Fisher Social History Tobacco Use Types Packs/Day Years Used Date Smoking Tobacco: Former Pipe 1 2015 Smokeless Tobacco: Never Comments:5-6 times a day Alcohol Use Standard Drinks/Week Comments No 0 (1 standard drink = 0.6 oz pur e alcohol) Sex and Gender Information Value Date Recorded Sex Assigned at Not on file Legal Sex Male 9:03 PM POWER SHOVEL ENGINEER Gender Identity Not on file Sexual Orientation Straight 10/15/2019 10 :34 PM POWER SHOVEL ENGINEER documented as of this encounter Progress Notes * Portillo Fisher - 05/24/2018 9:59 AM CDT OS Recon - Note PreOp Surgery Arrival Time Call Arrival Time: 5:30 am Surgery Date: 05-28-18 Arrival Location: [facility] Registration/Waiting PreHab completed: No: IF No, outpatient PT location identified: Yes Location: NPO after MN understood: Yes\ Clear liquids until: 5:00 am Confirm patient has picked up Rx for Mupirocin: Yes Verify start date/instructions: Yes Confirm patient has picked up Celebrex: Yes Verify start date/instructions: Yes Confirm patient has Chlorhexidine soap: Yes Verify start date/instructions: Yes Remind patient to shower with special soap on AM of surgery date. Confirm patient understands exactly what medications should be held 1 week prior to surgery: Yes Verify patient understands exactly what medications to take AM of surgery: Yes Verify if patient has CPAP machine & remind them to bring it with them to the hospital: Yes Verify patient insurance: Yes Verify patient still has a joint scrum coach that will be caring for them AT LEAST 3-5 days/24 hours a day post op: Yes If patient having Posterior CHRISTIANO -- verify patient has a raised toilet seat & hip kit: Yes Instruct patient to have joint scrum coach at the hospital on POD#1 to attend D/C class &/or observe nursing staff/OT/PT sessions: Yes Verify changes in medical status: None Verify clean skin integrity: Yes documented in this encounter Plan of Treatment Not on file documented as of this encounter Visit Diagnoses Not on filedocumented in this encounter Care Teams Paint Coating Machine Operator Relationship Specialty Start Date End Date Bao Pierre MD [address] [place] [address] PCP - General 12/22/16 documented as of this encounter
--- OUTSIDE RECORDS SUMMARY | 2024-10-01 08:48 | XMS_ITS | Encounter Summary ---
Author Organization [facility] Address [address] [place] [address] Phone Care Team Providers Care Foot Caster Name Role Phone Bao Pierre MD Primary Care Provider [phone] Encounter Details Date Type Department Care Team (Late st Contact Info) Description 04/10/2019 Orders Only [facility] Orthopaedic Surgery [address] [facility] 2nd Floor [address] [place] [address] Ange Ramires PA [address] [facility] [address] [place] [address] Spinal stenosis, lumbar region, with neurogenic claudication (Primary Dx); Spondylosis of lumbar region without myelopathy or radiculopathy Social History Tobacco Use Types Packs/Day Years Used Date Smoking Tobacco: Former Pipe 1 2015 Smokeless Tobacco: Never Comments:5-6 times a day Alcohol Use Standard Drinks/Week Comments No 0 (1 standard drink = 0.6 oz pur e alcohol) Sex and Gender Information Value Date Recorded Sex Assigned at Not on file Legal Sex Male 9:03 PM METAL BONDER Gender Identity Not on file Sexual Orientation Straight 10/15/2019 10 :34 PM METAL BONDER documented as of this encounter Plan of Treatment Not on file documented as of this encounter Visit Diagnoses Diagnosis Spinal stenosis, lumbar region, with neurogenic claudication- Primary Spondylosis of lumbar region without myelopathy or radiculopathy documented in this encounter Care Teams Foot Caster Relationship Specialty Start Date End Date Bao Pierre MD [address] [address] PCP - General 12/22/16 documented as of this encounter
--- OUTSIDE RECORDS SUMMARY | 2024-10-01 08:48 | XMS_ITS | Encounter Summary ---
Author Organization [facility] Healthcare Address [address] [place] [address] Care Team Providers Care Publication Designer Name Role Phone Bao Pierre MD Primary Care Provider Reason for Referral * Diagnostic Imaging (Routine) - Closed Specialty Diagnoses / Procedures Referred By Contac t Referred To Contact Radiology Diagnoses Low back pain with sciatica, sciatica laterality unspecified, unspecified back pain laterality, unspecified chronicity Procedures MRI Lumbar Spine WO Contrast Bao Pierre MD Phone: tel: fax: [address] [address] Referral ID Status Reason Start Date Expiration Date Visits Re quested Visits Authorized [id number] Closed 01/30/2019 08/10/2020 1 1 Reason for Visit * Diagnostic Imaging (Routine) - Closed Specialty Diagnoses / Procedures Referred By Contac t Referred To Contact Radiology Diagnoses Low back pain with sciatica, sciatica laterality unspecified, unspecified back pain laterality, unspecified chronicity Procedures MRI Lumbar Spine WO Contrast Bao Pierre MD Phone: tel: fax: [address] [address] Referral ID Status Reason Start Date Expiration Date Visits Re quested Visits Authorized [id number] Closed 01/30/2019 08/10/2020 1 1 Encounter Details Date Type Department Care Team (Latest Contact Info) Description 02/13/2019 11:13 AM CDT - 02/13/2019 11:59 PM CDT Hospital Encounter [facility] [address] [place] [address] Bao Pierre MD [address] [facility] [address] [place] [address] Low back pain with sciatica, sciatica laterality unspecified, unspecified back pain laterality, unspecified chronicity Discharge [...] on file Legal Sex Male 9:03 PM WINDOWS VMWARE ENGINEER Gender Identity Not on file Sexual Orientation Straight 10/15/2019 10 :34 PM WINDOWS VMWARE ENGINEER documented as of this encounter Medications at Time of Discharge alfuzosin ER (UROXATRAL) 10 mg 24 hr tabletIndications :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 Take 1 tablet (10 mg total) by mouth daily 4 amoxicillin (AMOXIL) 500 mg tablet/capsuleInd ications:Prophyla xis, Medical Take 4 tablet/capsule (2,000 mg total) by mouth as needed (1 HR PRIOR TO DENTAL PROCEDURE). 8 tablet/capsul e 10/03/2018 9 aspirin 325 mg EC tabletIndications :Deep Vein Thrombosis Prevention Take 1 tablet (325 mg total) by mouth 2 (two) times a day. 84 tablet 05/29/2018 9 aspirin 81 mg enteric coated tablet ADULT ASPIRIN EC LOW STRENGTH 81 MG ORAL TABLET DELAYED RELEASE 09/13/2013 1 tthc-aoi-kur-dayana- wchg-sauw-ils (Fiber 6) 1,000 mg tablet FIBER 09/13/2013 [...] needed for pain. 84 tablet 05/28/2018 9 inulin 2 gram tablet,chewable Take 1 tablet [...] 05/29/2018 9 documented as of this encounter Discharge Disposition Disposition Code Departure Means Destination Discharge to home or self care documented in this encounter Plan of Treatment Not on file documented as of this encounter Procedures Procedure Name Priority Date/Time Associated Diagnosis Comments MRI LUMBAR SPINE WO CONTRAST Schedule Routine, Read Routine (OP Routine) 02/13/2019 12:15 PM CDT Low back pain with sciatica, sciatica laterality unspecified, unspecified back pain laterality, unspecified chronicity documented in this encounter Results * MRI [...] chronicity documented in this encounter Care Teams Publication Designer Relationship Specialty Start Date End Date Bao Pierre MD [address] [address] PCP - General 12/22/16 documented as of this encounter
--- OUTSIDE RECORDS SUMMARY | 2024-10-01 08:48 | XMS_ITS | Encounter Summary ---
Author Organization [facility] Address [address] [place] [address] Phone Care Team Providers Care Laboratory Equipment Cleaner Name Role Phone Bao Pierre MD Primary Care Provider [phone] Encounter Details Date Type Department Care Team (Late st Contact Info) Description 10/03/2018 Orders Only [facility] Orthopaedic Surgery [address] [facility] 12th [place] [address] [place] [address] Hilary Liang MD [address] [place] [address] Social History Tobacco Use Types Packs/Day Years Used Date Smoking Tobacco: Former Pipe 2015 Smokeless Tobacco: Never Comments:5-6 times a day Alcohol Use Standard Drinks/Week Comments No 0 (1 standard drink = 0.6 oz pur e alcohol) Sex and Gender Information Value Date Recorded Sex Assigned at Not on file Legal Sex Male 9:03 PM SUPERVISOR ESTERS AND EMULSIFIERS Gender Identity Not on file Sexual Orientation Straight 10/15/2019 10 :34 PM SUPERVISOR ESTERS AND EMULSIFIERS documented as of this encounter Ordered Prescriptions Prescription Sig Dispense Quantity Refills Last Filled Start Date End Date amoxicillin (AMOXIL) 500 mg tablet/capsuleIndi cations:Prophylaxi s, Medical Take 4 tablet/capsu le (2,000 mg total) by mouth as needed (1 HR PRIOR TO DENTAL PROCEDURE). 8 tablet/capsule 10/03/2018 08/02/2019 documented in this encounter Plan of Treatment Not on file documented as of this encounter Visit Diagnoses Not on filedocumented in this encounter Care Teams Laboratory Equipment Cleaner Relationship Specialty Start Date End Date Bao Pierre MD [address] [place] [address] PCP - General 12/22/16 documented as of this encounter
--- OUTSIDE RECORDS SUMMARY | 2024-10-01 08:48 | XMS_ITS | Encounter Summary ---
Author Organization [facility] Healthcare Address [address] [place] [address] Care Team Providers Care Foundation Relations Manager Name Role Phone Bao Pierre MD Primary Care Provider [phone] Patricia Tucker RN Unavailable [phone] Reason for Visit * Reason Comments Follow-Up Call 7 Days Encounter Details Date Type Department Care Team (Late st Contact Info) Description 06/06/2018 BP Post-Surgical [facility] OP CASE MANAGEMENT [address] [place] [address] Patricia Tucker, RN [address] [facility] [address] [place] [address] Social History Tobacco Use Types Packs/Day Years Used Date Smoking Tobacco: Former Pipe 2015 Smokeless Tobacco: Never Comments:5-6 times a day Alcohol Use Standard Drinks/Week Comments No 0 (1 standard drink = 0.6 oz pur e alcohol) Sex and Gender Information Value Date Recorded Sex Assigned at Not on file Legal Sex Male 9:03 PM ANALYSIS ENGINEER Gender Identity Not on file Sexual Orientation Straight 10/15/2019 10 :34 PM ANALYSIS ENGINEER documented as of this encounter Progress Notes * Patricia Tucker RN - 06/06/2018 10:57 AM CDT 7 day post op call: OCM spoke with patient and joint high school academic coach. Denies any further back or kidney pain. Caregiver diligent with reminding patient of posterior hip precautions. Inst proper elevation: on ramp of pillows with entire leg supported, knee higher than heart and ankle higher than knee 3 x day for 40 minutes each time especially after exercise.Reminded patient to call OCM for questions or concerns. documented in this encounter Plan of Treatment Not on file documented as of this encounter Visit Diagnoses Not on filedocumented in this encounter Care Teams Foundation Relations Manager Relationship Specialty Start Date End Date Bao Pierre MD [address] [address] PCP - General 12/22/16 Patricia Tucker RN [address] [address] [facility] Outpatient Licensed Optician 05/28/18 1 10/26/17 documented as of this encounter
--- OUTSIDE RECORDS SUMMARY | 2024-10-01 08:49 | XMS_ITS | Encounter Summary ---
Author Organization [facility] Facility Care Team Providers Care Clinical Research Tech Name Role Phone Unavailable Primary Care Provider Unavailabl e Encounter Details Date Type Department Care Team (Late st Contact Info) Description 12/09/2011 3:47 PM FRENCH FOLDING MACHINE OPERATOR - 10/01/2012 11:59 PM FRENCH FOLDING MACHINE OPERATOR Hospital Encounter [facility] CLINCONV Eddi Shafer MD [phone] [place] [address] Other chronic pain; Lumbosacral spondylosis without myelopathy; Essential hypertension Social History Tobacco Use Types Packs/Day Years Used Date Smoking Tobacco: Never Assessed Sex and Gender Information Value Date Recorded Sex Assigned at Not on file Legal Sex Male 9:03 PM FRENCH FOLDING MACHINE OPERATOR Gender Identity Not on file Sexual Orientation Straight 10/15/2019 10 :34 PM FRENCH FOLDING MACHINE OPERATOR documented as of this encounter Medications at Time of Discharge aspirin 81 mg tabletIndications :ON HOLD Take 81 mg by mouth daily. 07/31/2007 05/29/2018 lisinopril-hydroC HLOROthiazide (ZESTORETIC) 10-12.5 mg per tablet 10/02/1969 03/08/2022 documented as of this encounter Plan of Treatment Not on file documented as of this encounter Visit Diagnoses Diagnosis Other chronic pain Lumbosacral spondylosis without myelopathy Essential hypertension Unspecified essential hypertension documented in this encounter
--- OUTSIDE RECORDS SUMMARY | 2024-10-01 08:49 | XMS_ITS | Encounter Summary ---
Author Organization [facility] Address [address] [place] [address] Phone Care Team Providers Care Automotive Service Writer Name Role Phone Bao Pierre MD Primary Care Provider [phone] Encounter Details Date Type Department Care Team (Late st Contact Info) Description 05/23/2018 Orders Only [facility] [address] [facility] 12th [place] [address] [place] [address] Hilary Liang MD [address] [place] [address] Social History Tobacco Use Types Packs/Day Years Used Date Smoking Tobacco: Former Pipe 2015 Smokeless Tobacco: Never Comments:5-6 times a day Alcohol Use Standard Drinks/Week Comments No 0 (1 standard drink = 0.6 oz pur e alcohol) Sex and Gender Information Value Date Recorded Sex Assigned at Not on file Legal Sex Male 9:03 PM BLIND HOOKER Gender Identity Not on file Sexual Orientation Straight 10/15/2019 10 :34 PM BLIND HOOKER documented as of this encounter Ordered Prescriptions Prescription Sig Dispense Quantity Refills Last Filled Start Date End Date mupirocin (BACTROBAN) 2 % ointment Apply topically 2 (two) times a day for 5 days. APPLY TO NOSTRILS TWICE A DAY FOR 5 DAYS PRIOR TO SURGERY. 22 g 05/23/2018 8 documented in this encounter Plan of Treatment Not on file documented as of this encounter Visit Diagnoses Not on filedocumented in this encounter Care Teams Automotive Service Writer Relationship Specialty Start Date End Date Bao Pierre MD [address] [facility] [address] [place] [address] PCP - General 12/22/16 documented as of this encounter
--- OUTSIDE RECORDS SUMMARY | 2024-10-01 08:49 | XMS_ITS | Encounter Summary ---
Author Organization [facility] Facility Care Team Providers Care Lathe Spotter Name Role Phone Unavailable Primary Care Provider Unavailabl e Encounter Details Date Type Department Care Team (Latest Contact Info) Description 10/31/2016 10:27 AM CABINET INSTALLER - 10/31/2016 11:59 PM CABINET INSTALLER Hospital Encounter [facility] CLINCONDelmer Paz MD [address] [facility] [address]6B[address] [place] [address] Luc Caballero RN [address] [facility] [address]6B[address]12A [address] [place] [address] Primary osteoarthritis of right shoulder; Other specified postprocedural states Social History Tobacco Use Types Packs/Day Years Used Date Smoking Tobacco: Never Assessed Sex and Gender Information Value Date Recorded Sex Assigned at Not on file Legal Sex Male 9:03 PM CABINET INSTALLER Gender Identity Not on file Sexual Orientation Straight 10/15/2019 10 :34 PM CABINET INSTALLER documented as of this encounter Medications at Time of Discharge aspirin 81 mg enteric coated tablet ADULT ASPIRIN EC LOW STRENGTH 81 MG ORAL TABLET DELAYED RELEASE 09/13/2013 1 aspirin 81 mg tabletIndication s:ON HOLD Take 81 mg by mouth daily. 07/31/2007 8 ctov-axl-eoj-dayana -fvue-amwl-qhl (Fiber 6) 1,000 mg tablet FIBER 09/13/2013 1 glucosamine sulfate 2KCl 500 mg capsule GLUCOSAMINE CAPSULE 09/13/2013 1 glucosamine sulfate 500 mg capsule GLUCOSAMINE CAPSULE 09/13/2013 3 lisinopril-hydro CHLOROthiazide (ZESTORETIC) 10-12.5 mg per tablet 10/02/1969 2 naproxen sodium 220 mg capsule ALEVE CAPSULE 09/13/2013 02 1 documented as of this encounter Plan of Treatment Not on file documented as of this encounter Procedures Procedure Name Priority Date/Time Associated Diagnosis Comments XR SHOULDER 2+ VW Routine 10/31/2016 11: 57 AM CABINET INSTALLER documented in this encounter Results * XR Shoulder 2+ Vw (10/31/2016 11:57 AM CABINET INSTALLER) Anatomical Region Laterality Modality Shoulder N/A Radiographic Fartun ging 10/31/2016 11:5 7 AM CABINET INSTALLER Narrative 10/31/2016 12:23 PM CABINET INSTALLER MALCOM WHITAKER M.D. FINAL REPORT ACC# ??Date Time ??Exam [id number] Oct 31, 2016 11:57:00 [id number] Shoulder min 2 views Rt EXAMINATION: ? Right shoulder minimum 2 views HISTORY: ??Right shoulder rotator cuff tear FINDINGS: ??Four view examination of the right shoulder is digitally-acquired and compared to a study from 28 July 2010. Four suture anchors in the proximal humerus are from a rotator cuff repair, new since the prior study. There is unchanged mild glenohumeral osteoarthritis. The acromioclavicular joint appears normal. There is no fracture. IMPRESSION: ?? Right shoulder rotator cuff repair and unchanged mild glenohumeral joint osteoarthritis. Requested By: LUC CABALLERO Dictated By: ?? MALCOM WHITAKER M.D. ??on Oct 31 2016 12:23P This document has been electronically signed by: MALCOM WHITAKER M.D. on Oct 31 2016 12:23P [id number] Procedure Note Provider, MD Kaci - 02/08/2017 MALCOM WHITAKER M.D. FINAL REPORT ACC# Date Time Exam [id number] Oct 31, 2016 11:57:00 [id number] Shoulder min 2 views Rt EXAMINATION: Right shoulder minimum 2 views HISTORY: Right shoulder rotator cuff tear FINDINGS: Four view examination of the right shoulder is digitally-acquired and compared to a study from 28 July 2010. Four suture anchors in the proximal humerus are from a rotator cuff repair, new since the prior study. There is unchanged mild glenohumeral osteoarthritis. The acromioclavicular joint appears normal. There is no fracture. IMPRESSION: Right shoulder rotator cuff repair and unchanged mild glenohumeral joint osteoarthritis. Requested By: LUC CABALLERO ANP Dictated By: MALCOM WHITAKER M.D. on Oct 31 2016 12:23P This document has been electronically signed by: MALCOM WHITAKER M.D. on Oct 31 2016 12:23P [id number] Historical Provider MD PHILLIPS XR PROCEDURES Final R esult documented in this encounter Visit Diagnoses Diagnosis Primary osteoarthritis of right shoulder Other specified postprocedural states documented in this encounter
--- OUTSIDE RECORDS SUMMARY | 2024-10-01 08:49 | XMS_ITS | Encounter Summary ---
Author Organization [facility] Facility Care Team Providers Care Triage Rn Name Role Phone Unavailable Primary Care Provider Unavailabl e Encounter Details Date Type Department Care Team (Late st Contact Info) Description 04/06/2015 - 04/06/2015 11:59 PM CDT Hospital Encounter [facility] CLINCONV Eddi Shafer MD [address] [facility] [phone] [place] [address] Degeneration of lumbar or lumbosacral intervertebral disc; Spinal stenosis of lumbar region without neurogenic claudication; Scoliosis (and kyphoscoliosis), idiopathic Social History Tobacco Use Types Packs/Day Years Used Date Smoking Tobacco: Never Assessed Sex and Gender Information Value Date Recorded Sex Assigned at Not on file Legal Sex Male 9:03 PM MANAGER LOGISTIC Gender Identity Not on file Sexual Orientation Straight 10/15/2019 10 :34 PM MANAGER LOGISTIC documented as of this encounter Medications at Time of Discharge aspirin 81 mg enteric coated tablet ADULT ASPIRIN EC LOW STRENGTH 81 MG ORAL TABLET DELAYED RELEASE 09/13/2013 1 aspirin 81 mg tabletIndication s:ON HOLD Take 81 mg by mouth daily. 07/31/2007 8 mpah-qbb-eer-dayana -uacl-ubhp-hlr (Fiber 6) 1,000 mg tablet FIBER 09/13/2013 [...] Diagnosis Comments MRI LUMBAR SPINE WO CONTRAST Routine 04/06/2015 10:41 AM CDT documented in this encounter Results * MRI Lumbar Spine WO Contrast (04/06/2015 10:41 AM CDT) Anatomical Region Laterality Modality Spine N/A Magnetic Resonan ce 04/06/2015 10:4 1 AM CDT Narrative 04/06/2015 8:40 PM CDT KAREN KRAFT M.D. JUAN RAMON BARRIOS M.D. FINAL REPORT The radiology attending physician has personally reviewed this study, and has reviewed and/or edited this written report and agrees with it. ACC# ??Date Time ??Exam [id number] Apr 06, 2015 10:41:00 [id number] MRI Lumbar Spine wo cont EXAMINATION: ?? Magnetic resonance imaging (MRI) of the lumbar spine without contrast HISTORY: 79 year old man with prior compression fractures and scoliosis. TECHNIQUE: Multiplanar multi-weighted MRI of the lumbar spine was performed without intravenous contrast using the standard lumbar spine protocol. COMPARISON: MRI Lumbar spine 10/17/12 FINDINGS: There is rotary dextroscoliosis centered at L3. There is mild retrolisthesis of L2 on L3 and L3 on L4. Modic type I degenerative changes noted at L4-L5 and remaining lumbar levels show Modic type II changes. Disc dessication noted at all lumbar levels except L5-S1. There is sacralization of L5. The conus medullaris terminates at the level of L1-L2. The distal spinal cord signal intensity is normal. Limited views of the abdomen and pelvis show no soft tissue abnormality. The aorta is normal. L1-L2: Mild diffuse disc bulge. There is moderate bilateral facet arthropathy with ligamentum flavum infolding. There is moderate bilateral neuroforaminal stenosis. There is moderate spinal canal stenosis. L2-L3: Mild diffuse disc bulge. There is moderate bilateral facet arthropathy with ligamentum flavum infolding. There is mild bilateral neuroforaminal stenosis. There is mild spinal canal stenosis. L3-L4: Moderate diffuse disc bulge. There is moderate bilateral facet arthropathy with ligamentum flavum infolding. There is severe left, moderate right neuroforaminal stenosis. There is moderate spinal canal stenosis. L4-L5: Moderate diffuse disc bulge. There is severe bilateral facet arthropathy with ligamentum flavum infolding. There is severe left, moderate right neuroforaminal stenosis. There is moderate to severe spinal canal stenosis. L5-S1: Mild diffuse disc bulge. There is mild right facet arthropathy. There is moderate right neuroforaminal stenosis. There is no spinal canal stenosis. IMPRESSION: ?? Mild to severe degenerative changes of the lumbar spine as described in detail above with multilevel neuroforaminal and central canal stenosis and not significantly changes from prior. Requested By: Dictated By: ?? JUAN RAMON BARRIOS M.D. ??on Apr ??2014 11:12A This document has been electronically signed by: KAREN KRAFT M.D. on Apr ??2014 ??8:40P [id number] Procedure Note Provider, MD Kaci - 01/25/2017 KAREN KRAFT M.D. JUAN RAMON BARRIOS M.D. FINAL REPORT The radiology attending physician has personally reviewed this study, and has reviewed and/or edited this written report and agrees with it. ACC# Date Time Exam [id number] Apr 06, 2015 10:41:00 [id number] MRI Lumbar Spine wo cont EXAMINATION: Magnetic resonance imaging (MRI) of the lumbar spine without contrast HISTORY: 79 year old man with prior compression fractures and scoliosis. TECHNIQUE: Multiplanar multi-weighted MRI of the lumbar spine was performed without intravenous contrast using the standard lumbar spine protocol. COMPARISON: MRI Lumbar spine 10/17/12 FINDINGS: There is rotary dextroscoliosis centered at L3. There is mild retrolisthesis of L2 on L3 and L3 on L4. Modic type I degenerative changes noted at L4-L5 and remaining lumbar levels show Modic type II changes. Disc dessication noted at all lumbar levels except L5-S1. There is sacralization of L5. The conus medullaris terminates at the level of L1-L2. The distal spinal cord signal intensity is normal. Limited views of the abdomen and pelvis show no soft tissue abnormality. The aorta is normal. L1-L2: Mild diffuse disc bulge. There is moderate bilateral facet arthropathy with ligamentum flavum infolding. There is moderate bilateral neuroforaminal stenosis. There is moderate spinal canal stenosis. L2-L3: Mild diffuse disc bulge. There is moderate bilateral facet arthropathy with ligamentum flavum infolding. There is mild bilateral neuroforaminal stenosis. There is mild spinal canal stenosis. L3-L4: Moderate diffuse disc bulge. There is moderate bilateral facet arthropathy with ligamentum flavum infolding. There is severe left, moderate right neuroforaminal stenosis. There is moderate spinal canal stenosis. L4-L5: Moderate diffuse disc bulge. There is severe bilateral facet arthropathy with ligamentum flavum infolding. There is severe left, moderate right neuroforaminal stenosis. There is moderate to severe spinal canal stenosis. L5-S1: Mild diffuse disc bulge. There is mild right facet arthropathy. There is moderate right neuroforaminal stenosis. There is no spinal canal stenosis. IMPRESSION: Mild to severe degenerative changes of the lumbar spine as described in detail above with multilevel neuroforaminal and central canal stenosis and not significantly changes from prior. Requested By: Dictated By: JUAN RAMON BARRIOS M.D. on Apr 06 2015 11:12A This document has been electronically signed by: KAREN KRAFT M.D. 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
--- OUTSIDE RECORDS SUMMARY | 2024-10-01 08:49 | XMS_ITS | Encounter Summary ---
Author Organization [facility] Facility Care Team Providers Care Senior Tech Manufacturing Engineering Name Role Phone Unavailable Primary Care Provider Unavailabl e Encounter Details Date Type Department Care Team (Late st Contact Info) Description 08/16/2010 5:28 AM CLIP LOADING MACHINE FEEDER - 08/16/2010 4:00 PM CLIP LOADING MACHINE FEEDER Hospital En[facility] CLINCONJu King MD [address] [place] [address] [address] [place] [address] Sprain of rotator cuff capsule; Other and unspecified hyperlipidemia; Morbid obesity (HCC); Obstructive sleep apnea; Osteoarthrosis; Tobacco use disorder; Overexertion from sudden strenuous movement Social History Tobacco Use Types Packs/Day Years Used Date Smoking Tobacco: Never Assessed Sex and Gender Information Value Date Recorded Sex Assigned at Not on file Legal Sex Male 9:03 PM CLIP LOADING MACHINE FEEDER Gender Identity Not on file Sexual Orientation Straight 10/15/2019 10 :34 PM CLIP LOADING MACHINE FEEDER documented as of this encounter Medications at Time of Discharge aspirin 81 mg tabletIndications :ON HOLD Take 81 mg by mouth daily. 07/31/2007 05/29/2018 lisinopril-hydroC HLOROthiazide (ZESTORETIC) 10-12.5 mg per tablet 10/02/1969 03/08/2022 documented as of this encounter Plan of Treatment Not on file documented as of this encounter Visit Diagnoses Diagnosis Sprain of rotator cuff capsule Rotator cuff (capsule) sprain and strain Other and unspecified hyperlipidemia Morbid obesity (HCC) Morbid obesity Obstructive sleep apnea Obstructive sleep apnea (adult) (pediatric) Osteoarthrosis Osteoarthrosis, unspecified whether generalized or localized, unspecified site Tobacco use disorder Overexertion from sudden strenuous movement documented in this encounter
--- OUTSIDE RECORDS SUMMARY | 2024-10-01 08:49 | XMS_ITS | Encounter Summary ---
Author Organization [facility] Healthcare Address [address] [place] [address] Care Team Providers Care Class C Truck Driver Name Role Phone Bao Pierre MD Primary Care Provider [phone] Encounter Details Date Type Department Care Team (Latest Contact Info) Description 01/16/2018 12:49 PM CDT - 01/16/2018 11:59 PM CDT Hospital Encounter [facility] OP INTERIM [phone] Eddi Shafer MD [address] [facility] [address] [facility] [phone] [place] [address] Discharge Disposition: Discharge to home or self care Social History Tobacco Use Types Packs/Day Years Used Date Smoking Tobacco: Never Assessed Sex and Gender Information Value Date Recorded Sex Assigned at Not on file Legal Sex Male 9:03 PM BRACE END MAINSPRING FORMER Gender Identity Not on file Sexual Orientation Straight 10/15/2019 10 :34 PM BRACE END MAINSPRING FORMER documented as of this encounter Medications at Time of Discharge aspirin 81 mg enteric coated tablet ADULT ASPIRIN EC LOW STRENGTH 81 MG ORAL TABLET DELAYED RELEASE 09/13/2013 1 aspirin 81 mg tabletIndication s:ON HOLD Take 81 mg by mouth daily. 07/31/2007 8 fnhr-klp-gny-dayana -ppyw-puoi-ubw (Fiber 6) 1,000 mg tablet FIBER 09/13/2013 [...] on filedocumented in this encounter Care Teams Class C Truck Driver Relationship Specialty Start Date End Date Bao Pierre MD [address] [address] PCP - General 12/22/16 documented as of this encounter
--- OUTSIDE RECORDS SUMMARY | 2024-10-01 08:49 | XMS_ITS | Encounter Summary ---
Author Organization [facility] Healthcare Address [address] [place] [address] Care Team Providers Care Office Manager Name Role Phone Bao Pierre MD Primary Care Provider [phone] Encounter Details Date Type Department Care Team (Latest Contact Info) Description 01/09/2018 11:09 AM CDT - 01/09/2018 11:59 PM T Hospital Encounter [facility] OP INTERIM [phone] Eddi Shafer MD [address] [facility] [address] [facility] [phone] [place] [address] Discharge Disposition: Discharge to home or self care Social History Tobacco Use Types Packs/Day Years Used Date Smoking Tobacco: Never Assessed Sex and Gender Information Value Date Recorded Sex Assigned at Not on file Legal Sex Male 9:03 PM SEASONAL RECRUITER Gender Identity Not on file Sexual Orientation Straight 10/15/2019 10 :34 PM SEASONAL RECRUITER documented as of this encounter Medications at Time of Discharge aspirin 81 mg enteric coated tablet ADULT ASPIRIN EC LOW STRENGTH 81 MG ORAL TABLET DELAYED RELEASE 09/13/2013 1 aspirin 81 mg tabletIndication s:ON HOLD Take 81 mg by mouth daily. 07/31/2007 8 uetx-wlj-lxz-dayana -yxfw-loos-tlc (Fiber 6) 1,000 mg tablet FIBER 09/13/2013 [...] on filedocumented in this encounter Care Teams Office Manager Relationship Specialty Start Date End Date Bao Pierre MD [address] [address] PCP - General 12/22/16 documented as of this encounter
--- OUTSIDE RECORDS SUMMARY | 2024-10-01 08:49 | XMS_ITS | Encounter Summary ---
Author Organization [facility] Address [address] [place] [address] Care Team Providers Care Detective Narcotics And Vice Name Role Phone Bao Pierre MD Primary Care Provider [phone] Encounter Details Date Type Department Care Team (Latest Contact Info) Description 03/27/2017 12:09 PM CDT - 03/27/2017 11:59 PM T Hospital Encounter [facility] OP INTERIM [phone] Gerry Shafer MD [address] [facility] [address] [facility] [phone] [place] [address] Discharge Disposition: Discharge to home or self care Social History Tobacco Use Types Packs/Day Years Used Date Smoking Tobacco: Never Assessed Sex and Gender Information Value Date Recorded Sex Assigned at Not on file Legal Sex Male 9:03 PM PARIMUTUEL CLERK Gender Identity Not on file Sexual Orientation Straight 10/15/2019 10 :34 PM PARIMUTUEL CLERK documented as of this encounter Medications at Time of Discharge aspirin 81 mg enteric coated tablet ADULT ASPIRIN EC LOW STRENGTH 81 MG ORAL TABLET DELAYED RELEASE 09/13/2013 1 aspirin 81 mg tabletIndication s:ON HOLD Take 81 mg by mouth daily. 07/31/2007 8 zryc-kyq-wiz-dayana -addm-wdvp-lle (Fiber 6) 1,000 mg tablet FIBER 09/13/2013 [...] Date/Time Associated Diagnosis Comments XR SPINE LUMBAR 6 OR MORE VIEWS Routine 03/27/2017 5:33 PM CDT documented in this encounter Results * XR Spine Lumbar Complete (03/27/2017 5:33 PM CDT) Anatomical Region Laterality Modality L-spine N/A Radiographic Fartun ging 03/27/2017 5:33 PM CDT Narrative 03/27/2017 5:33 PM CDT KEVIN VERA M.D. FINAL REPORT ACC# ??Date Time ??Exam [id number] Mar 27, 2017 12:33:00 [id number] Spn Lumbar cmp wBend min6v EXAMINATION: ?? 1. Lumbar spine complete with bending minimum 6 views HISTORY: Lumbar Spondylosis FINDINGS: Six views submitted with comparison 06/01/2015. There is mild rotary dextroscoliosis of the lumbar spine. There is progressive severe diffuse lumbar degenerative disc disease from T12-L5. There is multilevel facet osteoarthritis along the concave aspect of the curvature. There has been interval inferior lumbar posterior decompression. Arterial atherosclerosis is present. Flexion-extension views demonstrate a hypomobile lumbar spine. There are no fractures. IMPRESSION: ?? 1. Interval inferior lumbar posterior decompression. 2. Progressive severe diffuse lumbar degenerative disc disease with rotary dextroscoliosis. Requested By: GERRY SHAFER ??Amanda ? Dictated By: ?? KEVIN VERA M.D. ??on Mar 27 2017 12:46P This document has been electronically signed by: KEVIN VERA M.D. on Mar 27 2017 12:46P [id number] VERA M.D. FINAL REPORT Attending: ??FREDDIE, ??GERRY Requesting: ??FREDDIE, ??GERRY Requesting Fax: ?? Attending Fax: ?? Attending ID: ??[id number] Requesting ID: ??[id number] Report To 1 ID: ??[id number] ? Report To 1 Name: ??, ?? Report To 1 FAX: ?? NextGen Order #: ?? Procedure Note Miscellaneous, Not In File - 07/20/2017 KEVIN VERA M.D. FINAL REPORT ACC# Date Time Exam [id number] Mar 27, 2017 12:33:00 [id number] Spn Lumbar cmp wBend min6v EXAMINATION: 1. Lumbar spine complete with bending minimum 6 views HISTORY: Lumbar Spondylosis FINDINGS: Six views submitted with comparison 06/01/2015. There is mild rotary dextroscoliosis of the lumbar spine. There is progressive severe diffuse lumbar degenerative disc disease from T12-L5. There is multilevel facet osteoarthritis along the concave aspect of the curvature. There has been interval inferior lumbar posterior decompression. Arterial atherosclerosis is present. Flexion-extension views demonstrate a hypomobile lumbar spine. There are no fractures. IMPRESSION: 1. Interval inferior lumbar posterior decompression. 2. Progressive severe diffuse lumbar degenerative disc disease with rotary dextroscoliosis. Requested By: GERRY SHAFER M.D. Dictated By: KEVIN VERA M.D. on Mar 27 2017 12:46P This document has been electronically signed by: KEVIN VERA M.D. on Mar 27 2017 12:46P [id number] VERA M.D. FINAL REPORT Attending: GERRY SHAFER Requesting: GERRY SHAFER Requesting Fax: Attending Fax: Attending ID: [id number] Requesting ID: [id number] Report To 1 ID: [id number] Report To 1 Name: , Report To 1 FAX: NextGen Order #: us Gerry Shafer MD IMG XR PROCEDURES Edited Resu lt - Final documented in this encounter Visit Diagnoses Not on filedocumented in this encounter Care Teams Detective Narcotics And Vice Relationship Specialty Start Date End Date Bao Pierre MD [address] [address] PCP - General 12/22/16 documented as of this encounter
--- OUTSIDE RECORDS SUMMARY | 2024-10-01 08:49 | XMS_ITS | Encounter Summary ---
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 07/31/2007 8 bbhi-psp-qvl-dayana -cura-qxfj-ift (Fiber 6) 1,000 mg tablet FIBER 09/13/2013 [...] Procedure Name Priority Date/Time Associated Diagnosis Comments URINE (AEROBIC) CULTURE, CDR Routine 07/14/2015 12:28 PM CDT URINE MICROSCOPY Routine 07/14/2015 12:2 8 PM CDT PLASMA PROTHROMBIN TIME (PT) Routine 07/14/2015 12:28 PM CDT PLASMA BASIC METABOLIC PANEL Routine 07/14/2015 12:28 PM CDT BLOOD PARTIAL THROMBOPLASTIN TIME (PTT) Routine 07/14/2015 12:28 PM CDT URINALYSIS Routine 07/14/2015 12:28 PM CDT BLOOD CELL COUNT (CBC) Routine 5 12:28 PM CDT BLOOD ABO, RH, INDIRECT AB SCREEN Routine 07/14/2015 12:28 PM CDT ALL MICROBIOLOGY REPORT SECTION Routine 07/14/2015 12:00 AM CDT DISCHARGE LABORATORY CUMULATIVE REPORT 07/14/2015 documented in this encounter Results * Blood ABO, Rh, indirect ab screen (07/14/2015 12:28 PM CDT) ABO, Rho(D) B Positive HISTORI AB RESULTS Sheeba, indirect Negative HISTORICAL RESULTS Blood specimen (specimen) 07/14/2015 12:28 PM CDT Sameer Chance MD LAB BLOOD ORDERABLES Final Resu lt Performing Organization Address [facility] Co de Phone Number HISTORICAL RESULTS * Urinalysis (07/14/2015 12:28 PM CDT) Pathologist [facility] [place] Color, ur Yellow Yellow HISTORICAL RESULTS Clarity, ur Clear Clear HISTORIC AL RESULTS Specific gravity, ur 1.018 1.003 - 1.030 HISTORICAL RESULTS pH, ur 5.0 5.0 - 8.0 HISTORICAL RESULTS Protein, ur Negative Trace HISTORIC AL RESULTS Glucose, ur Negative Negative HISTORIC AL RESULTS Ketones, ur Negative Negative HISTORIC AL RESULTS Bilirubin, ur Negative Negative HISTOR ICAL RESULTS U Blood Negative Negative HISTORICAL RESULTS Urobilinogen, quant, ur <2.0 0.0 - 2.0 mg/dl HISTORICAL RESULTS Nitrites, ur Negative Negative HISTORI AB RESULTS Leukocyte esterase, ur Negative Negative HISTORICAL RESULTS Urine 07/14/2015 12:2 8 PM CDT Sameer Chance MD LAB BLOOD ORDERABLES Final Resu lt Performing Organization Address [facility] de Phone Number HISTORICAL RESULTS * (ABNORMAL) Urine microscopy (07/14/2015 12:28 PM CDT) Pathologist [facility] [place] RBC, ur 1 0 - 3 /hpf HISTORICA L RESULTS WBC, ur 0 0 - 5 /hpf HISTORICA L RESULTS Bacteria, ur Negative Trace HISTORI AB RESULTS Epithelial cells, renal, ur 0 0 - 0 /hpf HISTORICAL RESULTS Mucus, ur Small /hpf HISTORICAL RESULTS Hyaline casts >2(H) 0 - 0 /lpf HISTO RICAL RESULTS Urine 07/14/2015 12:2 8 PM CDT Sameer Chance MD LAB BLOOD ORDERABLES Final Resu lt Performing Organization Address [facility] Co de Phone Number HISTORICAL RESULTS * Plasma basic metabolic panel (07/14/2015 12:28 PM CDT) Pathologist [facility] Sodium 139 135 - 145 mmol/L HISTORICAL RESULTS K, pl 4.8 3.3 - 4.9 mmol/L HISTORICAL RESULTS Chloride 101 97 - 110 mmol/L HISTORICAL RESULTS CO2 28 22 - 32 mmol/L HISTORICAL RESULTS A. gap 10 0 - 16 mmol/L HISTORICAL RESULTS Glucose 94 70 - 199 mg/dl HISTORICAL RESULTS BUN 22 8 - 25 mg/dl HISTORICAL RESULTS Creatinine 1.03 0.70 - 1.30 mg/dl HISTORICAL RESULTS Calcium 9.6 8.6 - 10.3 mg/dl HISTORICAL RESULTS Plasma 07/14/2015 12:2 8 PM CDT Sameer Chance MD LAB BLOOD ORDERABLES Final Resu lt Performing Organization Address [facility] de Phone Number HISTORICAL RESULTS * Plasma prothrombin time (PT) (07/14/2015 12:28 PM CDT) Prothrombin time (PT) 11.2 9.2 - 13.0 seconds HISTORICAL RESULTS INR 1.04 0.90 - 1.20 HISTORIC AL RESULTS Comment: Interpretive Data Inpatient therapeutic ranges* Atrial fibrillation ?2.0-3.0 INR Venous thrombo-embolism ?2.0-3.0 INR Bioprosthetic heart valve ?* Mechanical heart valve, bileaflet or tilting disk,aortic position ? 2.0-3.0 INR All other,or bileaflet or tilting disk, in mitral position ? 2.5-3.5 INR *See the pharmacy resource directory (PHRED) for an updated copy of the Tool Book at [email or web address].nsf Current Interpretive Data was last revised 2011. Plasma 07/14/2015 12:2 8 PM CDT Sameer Chance MD LAB BLOOD ORDERABLES Final Resu lt Performing Organization Address [facility] Co de Phone Number HISTORICAL RESULTS * Blood partial thromboplastin time (PTT) (07/14/2015 12:28 PM CDT) APTT 28.2 25.0 - 37.0 seconds HISTORICAL RESULTS Comment: Interpretive Data Therapeutic heparin range:60.0 - 94.0 sec based on correlation with therapeutic heparin activity range of 0.3 -0.7 Units/mL. Current interpretive data was last revised on 2011. Blood specimen (specimen) 07/14/2015 12:28 PM CDT us Sameer Chance MD LAB BLOOD ORDERABLES Final Resu lt HISTORICAL RESULTS * (ABNORMAL) Blood cell count (CBC) (07/14/2015 12:28 PM CDT) WBC 10.9(H) 3.8 - 9.8 K/cumm HISTORICAL RESULTS RBC 4.91 4.50 - 5.70 M/cumm HISTORICAL RESULTS Hgb 15.2 13.8 - 17.2 g/dl HISTORICAL RESULTS Hct 46.0 40.7 - 50.3 % HISTORICAL RESULTS MCV 93.6 80.0 - 97.6 fl HISTORICAL RESULTS MCH 30.9 26.7 - 33.7 pg HISTORICAL RESULTS MCHC 33.0 32.7 - 35.5 g/dl HISTORICAL RESULTS Rdw 13.2 11.8 - 14.6 % HISTORICAL RESULTS Platelets 182 140 - 440 K/cumm HISTORICAL RESULTS MPV 9.8 6.8 - 10.4 fl HISTORICAL RESULTS Neutrophils 72.1 38.7 - 74.5 % HISTORICAL RESULTS Lymphocytes 19.6(L) 20.0 - 54.3 % HISTORICAL RESULTS Monos 6.7 4.3 - 13.5 % HISTORICAL RESULTS Eosinophils 1.3 0.0 - 6.0 % HISTORICAL RESULTS Basophils 0.3 0.0 - 3.0 % HISTORICAL RESULTS Neutrophils, abs 7.9(H) 1.8 - 6.6 K/cumm HISTORICAL RESULTS Lymphocytes, abs 2.1 1.2 - 3.3 K/cumm HISTORICAL RESULTS Monocytes, absolute 0.7 0.2 - 1.2 K/cumm HISTORICAL RESULTS Eosinophils, abs 0.1 0.0 - 0.5 K/cumm HISTORICAL RESULTS Basophils, abs 0.0 0.0 - 0.2 K/cumm HISTORICAL RESULTS Blood specimen (specimen) 07/14/2015 12:28 PM CDT Sameer Chance MD LAB BLOOD ORDERABLES Final Resu lt Performing Organization Address [facility]/ZIP Co de Phone Number HISTORICAL RESULTS * Urine (aerobic) culture (07/14/2015 12:28 PM CDT) Urine, clean voided (Unknown) 07/14/2015 12:28 PM CDT 07/14/2015 1:46 PM CDT Narrative HISTORICAL RESULTS - 07/15/2015 3:03 PM CDT Insignificant growth based on current clinical standards. Result [facility] Historical Provider MD LAB MICROBIOLOGY - GENERA L ORDERABLES Final Result Performing Organization Address [facility] Co de Phone Number HISTORICAL RESULTS * DISCHARGE LABORATORY CUMULATIVE REPORT (07/14/2015) Narrative 07/14/2015 Ordered by an unspecified provider. Result [facility] Historical Provider MD LAB BLOOD ORDERABLES Laura l Result * All Microbiology Report Section (07/14/2015 12:00 AM CDT) 07/14/2015 Narrative HISTORICAL RESULTS - 07/15/2015 3:42 PM CDT ? [facility] ?[address] [facility] [place] ?[place], [place] [address] ? Patient Name: ??FRANDY ALVARES ? Med Rec Number: [id number] ? Fin Number: ?[id number] ? Date: ?1935 ? Sex/Age: ? Male 79 years ? Admit Date: ?07/14/2015 ? Discharge Date: 07/14/2015 ? Doctor: ?Robson , Sameer ? Facility: ?[facility] ? Location: ?[facility] ?* Abnormal ??A Alert ??f Footnote ??^ Corrected ??L Low ??H High ?i Interp Data ??@ Ref Lab ? Chart Type:Cumulative ?* * * * MICROBIOLOGY - URINE * * * * ?PROCEDURE: Urine Culture ? SOURCE: Urine, clean voided ? COLLECTED: 07/14/15 ??1228 ?BODY SITE: ? STARTED: 10/13/15 ??1346 ? FREE TEXT SOURCE: ? FINAL REPORT ? REPORTED: 07/15/15 1503 ? Insignificant growth based on current clinical standards. us Historical Provider LAB MICROBIOLOGY - GENERA L ORDERABLES Final Result Performing Organization Address City/State/[facility] Co de Phone Number HISTORICAL RESULTS documented in this encounter Visit Diagnoses Diagnosis Encounter for preprocedural laboratory examination Spinal stenosis of lumbar region Uncomplicated asthma Essential (primary) hypertension Unspecified essential hypertension Tobacco use correction current use of aspirin Other chcf (current) drug therapy documented in this encounter
--- OUTSIDE RECORDS SUMMARY | 2024-10-01 08:49 | XMS_ITS | Encounter Summary ---
Author Organization [facility] [employer] [facility] Address [address] [place] [address] Phone Care Team Providers Care Drying Unit Felting Machine Operator Name Role Phone Bao Pierre MD Primary Care Provider [phone] Encounter Details Date Type Department Care Team (Late st Contact Info) Description 03/27/2018 Orders Only [facility] Orthopaedic Surgery [address] [facility] Advanced Medicine 12th [place] [address] [place] [id number] Ange Ramires PA [address] [place] [address] Pain of left hip joint (Primary Dx) Social History Tobacco Use Types Packs/Day Years Used Date Smoking Tobacco: Never Smokeless Tobacco: Never Sex and Gender Information Value Date Recorded Sex Assigned at Not on file Legal Sex Male 9:03 PM HEALTH TECHNICAL WRITER Gender Identity Not on file Sexual Orientation Straight 10/15/2019 10 :34 PM HEALTH TECHNICAL WRITER documented as of this encounter Miscellaneous Notes * Addendum Note - Mikaela Traore MA - 03/27/2018 10:36 AM CDTAddended by: MIKAELA TRAORE on: 04/26/2018 12:31 PM Modules accepted: Orders * Addendum Note - Mikaela Traore MA - 03/27/2018 10:36 AM CDTAddended by: MIKAELA TRAORE on: 04/26/2018 12:31 PM Modules accepted: Orders * Addendum Note - Mikaela Traore MA - 03/27/2018 10:36 AM CDTAddended by: MIKAELA TRAORE on: 04/26/2018 12:31 PM Modules accepted: Orders documented in this encounter Plan of Treatment Scheduled Orders Name Type Priority Associated Diagnoses Orde r Schedule CBC with auto differential Lab Routine Pain of left hip joint Expected: 03/27/2018, Expires: 03/27/2019 Erythrocyte sedimentation rate Lab Routine Pain of left hip joint Expected: 03/27/2018, Expires: 03/27/2019 CRP, high sensitivity Lab Routine Pain of left hip joint Expected: 03/27/2018, Expires: 03/27/2019 documented as of this encounter Visit Diagnoses Diagnosis Pain of left hip joint- Primary documented in this encounter Care Teams Drying Unit Felting Machine Operator Relationship Specialty Start Date End Date Bao Pierre MD [address] [address] PCP - General 12/22/16 documented as of this encounter
--- OUTSIDE RECORDS SUMMARY | 2024-10-01 08:49 | XMS_ITS | Encounter Summary ---
Author Organization [facility] Address [address] [place] [address] Phone Care Team Providers Care Paramedical Aide Name Role Phone Bao Pierre MD Primary Care Provider [phone] Encounter Details Date Type Department Care Team (Late st Contact Info) Description 03/29/2018 Orders Only [facility] Orthopaedic Surgery [address] [facility] Advanced Medicine [address]th [place] [address] [place] [phone] Ange Ramires PA [address] [place] [address] Social History Tobacco Use Types Packs/Day Years Used Date Smoking Tobacco: Never Smokeless Tobacco: Never Sex and Gender Information Value Date Recorded Sex Assigned at Not on file Legal Sex Male 9:03 PM SENIOR MANAGER ASSET PROTECTION Gender Identity Not on file Sexual Orientation Straight 10/15/2019 10 :34 PM SENIOR MANAGER ASSET PROTECTION documented as of this encounter Plan of Treatment Not on file documented as of this encounter Visit Diagnoses Not on filedocumented in this encounter Care Teams Paramedical Aide Relationship Specialty Start Date End Date Bao Pierre MD [address] [facility] [address] [place], [place] [id number] PCP - General 12/22/16 documented as of this encounter
--- OUTSIDE RECORDS SUMMARY | 2024-10-01 08:49 | XMS_ITS | Encounter Summary ---
Author Organization [facility] Healthcare Address [address] [place] [address] Care Team Providers Care Armored Car Guard Name Role Phone Bao Pierre MD Primary Care Provider [phone] Encounter Details Date Type Department Care Team (Latest Contact Info) Description 03/27/2017 10:13 AM CDT - 03/27/2017 11:59 PM T Hospital Encounter [facility] OP INTERIM [phone] Eddi Shafer MD [address] [facility] [address] [facility] [phone] [place] [address] Discharge Disposition: Discharge to home or self care Social History Tobacco Use Types Packs/Day Years Used Date Smoking Tobacco: Never Assessed Sex and Gender Information Value Date Recorded Sex Assigned at Not on file Legal Sex Male 9:03 PM WINDOW CLERK Gender Identity Not on file Sexual Orientation Straight 10/15/2019 10 :34 PM WINDOW CLERK documented as of this encounter Medications at Time of Discharge aspirin 81 mg enteric coated tablet ADULT ASPIRIN EC LOW STRENGTH 81 MG ORAL TABLET DELAYED RELEASE 09/13/2013 1 aspirin 81 mg tabletIndication s:ON HOLD Take 81 mg by mouth daily. 07/31/2007 8 rnbb-xbt-pdb-dayana -kopp-awpj-xvc (Fiber 6) 1,000 mg tablet FIBER 09/13/2013 [...] on filedocumented in this encounter Care Teams Armored Car Guard Relationship Specialty Start Date End Date Bao Pierre MD [address] [address] PCP - General 12/22/16 documented as of this encounter
--- OUTSIDE RECORDS SUMMARY | 2024-10-01 08:49 | XMS_ITS | Encounter Summary ---
Author Organization [facility] Facility Care Team Providers Care Lawyer Name Role Phone Unavailable Primary Care Provider Unavailabl e Encounter Details Date Type Department Care Team (Late st Contact Info) Description 08/17/2007 - 08/17/2007 11:59 PM MANAGER EMERGENCY Hospital Encounter [facility] Edgar Parnell Jr., MD [address] [place] [address] Observation and evaluation for other specified suspected conditions; Diverticulosis of colon Social History Tobacco Use Types Packs/Day Years Used Date Smoking Tobacco: Never Assessed Sex and Gender Information Value Date Recorded Sex Assigned at Not on file Legal Sex Male 9:03 PM MANAGER EMERGENCY Gender Identity Not on file Sexual Orientation Straight 10/15/2019 10 :34 PM MANAGER EMERGENCY documented as of this encounter Medications at Time of Discharge aspirin 81 mg tabletIndications :ON HOLD Take 81 mg by mouth daily. 07/31/2007 05/29/2018 lisinopril-hydroC HLOROthiazide (ZESTORETIC) 10-12.5 mg per tablet 10/02/1969 03/08/2022 documented as of this encounter Plan of Treatment Not on file documented as of this encounter Visit Diagnoses Diagnosis Observation and evaluation for other specified suspected conditions Diverticulosis of colon Diverticulosis of colon (without mention of hemorrhage) documented in this encounter
--- OUTSIDE RECORDS SUMMARY | 2024-10-01 08:49 | XMS_ITS | Encounter Summary ---
Author Organization [facility] Facility Care Team Providers Care Rope Machine Setter Name Role Phone Unavailable Primary Care Provider Unavailabl e Encounter Details Date Type Department Care Team (Late st Contact Info) Description 09/20/2011 - 09/20/2011 11:59 PM PLANT INSPECTOR Hospital Encounter [facility] Eddi Shafer MD [phone] [place] [address] Degeneration of lumbar or lumbosacral intervertebral disc; Osteoarthrosis, pelvic region and thigh Social History Tobacco Use Types Packs/Day Years Used Date Smoking Tobacco: Never Assessed Sex and Gender Information Value Date Recorded Sex Assigned at Not on file Legal Sex Male 9:03 PM PLANT INSPECTOR Gender Identity Not on file Sexual Orientation Straight 10/15/2019 10 :34 PM PLANT INSPECTOR documented as of this encounter Medications at Time of Discharge aspirin 81 mg tabletIndications :ON HOLD Take 81 mg by mouth daily. 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
--- OUTSIDE RECORDS SUMMARY | 2024-10-01 08:49 | XMS_ITS | Encounter Summary ---
Author Organization [facility] Care Team Providers Care Research And Development Director Name Role Phone Unavailable Primary Care Provider Unavailabl e Encounter Details Date Type Department Care Team (Late st Contact Info) Description 11/07/2012 3:05 PM PHILOSOPHY AND RELIGION INSTRUCTOR - 10/01/2013 11:59 PM PHILOSOPHY AND RELIGION INSTRUCTOR Hospital Encounter [facility] Eddi Shafer MD [address] [id number] [place] [address] Other chronic pain; Lumbosacral spondylosis without myelopathy; Displacement of lumbar intervertebral disc without myelopathy Social History Tobacco Use Types Packs/Day Years Used Date Smoking Tobacco: Never Assessed Sex and Gender Information Value Date Recorded Sex Assigned at Not on file Legal Sex Male 9:03 PM PHILOSOPHY AND RELIGION INSTRUCTOR Gender Identity Not on file Sexual Orientation Straight 10/15/2019 10 :34 PM PHILOSOPHY AND RELIGION INSTRUCTOR documented as of this encounter Medications at Time of Discharge aspirin 81 mg enteric coated tablet ADULT ASPIRIN EC LOW STRENGTH 81 MG ORAL TABLET DELAYED RELEASE 09/13/2013 1 aspirin 81 mg tabletIndication s:ON HOLD Take 81 mg by mouth daily. 07/31/2007 8 pssn-nrd-jpt-dayana -laga-vwqm-xhs (Fiber 6) 1,000 mg tablet FIBER 09/13/2013 [...] Procedure Name Priority Date/Time Associated Diagnosis Comments SPINAL FLUOROSCOPIC PROCEDURE Routine 11/07/2012 8:01 AM PHILOSOPHY AND RELIGION INSTRUCTOR documented in this encounter Results * SPINAL FLUOROSCOPIC PROCEDURE (11/07/2012 8:01 AM PHILOSOPHY AND RELIGION INSTRUCTOR) Anatomical Region Laterality Modality N/A Radiographic Fartun ging 11/07/2012 8:01 AM PHILOSOPHY AND RELIGION INSTRUCTOR Narrative 11/07/2012 8:30 AM PHILOSOPHY AND RELIGION INSTRUCTOR This examination was converted from a legacy system and did not match a report, either due to it being a non-reportable examination, or a duplicate entry Procedure Note Provider, Kaci, - 05/08/2017 This examination was converted from a legacy system and did not match areport, either due to it being a non-reportable examination, or aduplicate entry Historical Provider MD PHILLIPS XR PROCEDURES Final R esult documented in this encounter Visit Diagnoses Diagnosis Other chronic pain Lumbosacral spondylosis without myelopathy Displacement of lumbar intervertebral disc without myelopathy documented in this encounter
--- OUTSIDE RECORDS SUMMARY | 2024-10-01 08:49 | XMS_ITS | Encounter Summary ---
Author Organization [facility] [employer] [facility] Address [address] [place] [address] Phone Care Team Providers Care Earring Maker Name Role Phone Bao Pierre MD Primary Care Provider [phone] Encounter Details Date Type Department Care Team (Late st Contact Info) Description 04/26/[address] [facility] Orthopaedic Surgery [address] [facility] [address] [place] [address] Mikaela Wilcox RMA Social History Tobacco Use Types Packs/Day Years Used Date Smoking Tobacco: Never Smokeless Tobacco: Never Sex and Gender Information Value Date Recorded Sex Assigned at Not on file Legal Sex Male 9:03 PM NONFARM ANIMAL CARETAKER Gender Identity Not on file Sexual Orientation Straight 10/15/2019 10 :34 PM NONFARM ANIMAL CARETAKER documented as of this encounter Plan of Treatment Not on file documented as of this encounter Visit Diagnoses Not on filedocumented in this encounter Care Teams Earring Maker Relationship Specialty Start Date End Date Bao Pierre MD [address] [facility] [address] [place] [address] PCP - General 12/22/16 documented as of this encounter
--- OUTSIDE RECORDS SUMMARY | 2024-10-01 08:49 | XMS_ITS | Encounter Summary ---
Author Organization [facility] Care Team Providers Care Vision Therapist Name Role Phone Unavailable Primary Care Provider Unavailabl e Encounter Details Date Type Department Care Team (Late st Contact Info) Description 01/12/2015 12:03 PM CDT - 10/01/2015 11:59 PM PRESS SMITH HELPER Hospital Encounter [facility] Eddi Shafer MD [address] [facility] [phone] [place] [address] Other chronic pain; Spinal stenosis of lumbar region without neurogenic claudication; Lumbosacral spondylosis without myelopathy; Displacement of lumbar intervertebral disc without myelopathy; Essential hypertension; Hypertrophy of prostate without urinary obstruction and other lower urinary tract symptoms (LUTS) Social History Tobacco Use Types Packs/Day Years Used Date Smoking Tobacco: Never Assessed Sex and Gender Information Value Date Recorded Sex Assigned at Not on file Legal Sex Male 9:03 PM PRESS SMITH HELPER Gender Identity Not on file Sexual Orientation Straight 10/15/2019 10 :34 PM PRESS SMITH HELPER documented as of this encounter Medications at Time of Discharge aspirin 81 mg enteric coated tablet ADULT ASPIRIN EC LOW STRENGTH 81 MG ORAL TABLET DELAYED RELEASE 09/13/2013 1 aspirin 81 mg tabletIndication s:ON HOLD Take 81 mg by mouth daily. 07/31/2007 8 xfvo-wac-bie-dayana -wnzl-fowu-jci (Fiber 6) 1,000 mg tablet FIBER 09/13/2013 [...] Associated Diagnosis Comments SPINAL FLUOROSCOPIC PROCEDURE Routine 02/11/2015 9:09 AM CDT SPINAL FLUOROSCOPIC PROCEDURE Routine 01/12/2015 9:30 AM CDT documented in this encounter Results * SPINAL FLUOROSCOPIC PROCEDURE (02/11/2015 9:09 AM CDT) Anatomical Region Laterality Modality N/A Radiographic Fartun ging 02/11/2015 9:09 AM CDT Narrative 02/11/2015 9:16 AM CDT This examination was converted from a legacy system and did not match a report, either due to it being a non-reportable examination, or a duplicate entry Procedure Note ProviderKaci MD - 05/08/2017 This examination was converted from a legacy system and did not match areport, either due to it being a non-reportable examination, or aduplicate entry Historical Provider MD PHILLIPS XR PROCEDURES Final R esult * SPINAL FLUOROSCOPIC PROCEDURE (01/12/2015 9:30 AM CDT) Anatomical Region Laterality Modality N/A Radiographic Fartun ging 01/12/2015 9:30 AM CDT Narrative 01/12/2015 9:44 AM CDT This examination was converted from a legacy system and did not match a report, either due to it being a non-reportable examination, or a duplicate entry Procedure Note ProviderKaci MD - 05/08/2017 This examination was converted from a legacy system and did not match areport, either due to it being a non-reportable examination, or aduplicate entry us Historical Provider MD PHILLIPS XR PROCEDURES Final R esult documented in this encounter Visit Diagnoses Diagnosis Other chronic pain Spinal stenosis of lumbar region without neurogenic claudication Lumbosacral spondylosis without myelopathy Displacement of lumbar intervertebral disc without myelopathy Essential hypertension Unspecified essential hypertension Hypertrophy of prostate without urinary obstruction and other lower urinary tract symptoms (LUTS) documented in this encounter
--- OUTSIDE RECORDS SUMMARY | 2024-10-01 08:49 | XMS_ITS | Encounter Summary ---
Author Organization [facility] Care Team Providers Care Administrative Professional Name Role Phone Unavailable Primary Care Provider Unavailabl e Encounter Details Date Type Department Care Team (Late st Contact Info) Description 09/09/2011 10:57 AM AVIATION MAINTENANCE INSTRUCTOR - 10/01/2011 11:59 PM AVIATION MAINTENANCE INSTRUCTOR Hospital Encounter [facility] Eddi Shafer MD [address] [phone] [place] [address] Other chronic pain; Lumbosacral spondylosis without myelopathy Social History Tobacco Use Types Packs/Day Years Used Date Smoking Tobacco: Never Assessed Sex and Gender Information Value Date Recorded Sex Assigned at Not on file Legal Sex Male 9:03 PM AVIATION MAINTENANCE INSTRUCTOR Gender Identity Not on file Sexual Orientation Straight 10/15/2019 10 :34 PM AVIATION MAINTENANCE INSTRUCTOR documented as of this encounter Medications at Time of Discharge aspirin 81 mg tabletIndications :ON HOLD Take 81 mg by mouth daily. 07/31/2007 05/29/2018 lisinopril-hydroC HLOROthiazide (ZESTORETIC) 10-12.5 mg per tablet 10/02/1969 03/08/2022 documented as of this encounter Plan of Treatment Not on file documented as of this encounter Visit Diagnoses Diagnosis Other chronic pain Lumbosacral spondylosis without myelopathy documented in this encounter
--- OUTSIDE RECORDS SUMMARY | 2024-10-01 08:49 | XMS_ITS | Encounter Summary ---
Author Organization [facility] Care Team Providers Care Meat Slicer Name Role Phone Unavailable Primary Care Provider Unavailabl e Encounter Details Date Type Department Care Team (Late st Contact Info) Description 08/11/2010 2:07 PM ERGONOMIC SPECIALIST - 08/11/2010 4:00 PM ERGONOMIC SPECIALIST Hospital Encounter [facility] CL[facility] King MD [address] [place] [address] [address] [place] [address] Other specified pre-operative examination Social History Tobacco Use Types Packs/Day Years Used Date Smoking Tobacco: Never Assessed Sex and Gender Information Value Date Recorded Sex Assigned at Not on file Legal Sex Male 9:03 PM ERGONOMIC SPECIALIST Gender Identity Not on file Sexual Orientation Straight 10/15/2019 10 :34 PM ERGONOMIC SPECIALIST documented as of this encounter Medications at Time of Discharge aspirin 81 mg tabletIndications :ON HOLD Take 81 mg by mouth daily. 07/31/2007 05/29/2018 lisinopril-hydroC HLOROthiazide (ZESTORETIC) 10-12.5 mg per tablet 10/02/1969 03/08/2022 documented as of this encounter Plan of Treatment Not on file documented as of this encounter Visit Diagnoses Diagnosis Other specified pre-operative examination documented in this encounter
--- OUTSIDE RECORDS SUMMARY | 2024-10-01 08:49 | XMS_ITS | Encounter Summary ---
Author Organization [facility] Healthcare Address [address] [place] [address] Care Team Providers Care Laminator Preforms Name Role Phone Bao Pierre MD Primary Care Provider [phone] Encounter Details Date Type Department Care Team (Latest Contact Info) Description 01/09/2018 12:23 PM CDT - 01/09/2018 11:59 PM T Hospital Encounter [facility]IM [phone] Gerry Shafer MD [address] [facility] [address] [facility] [phone] [place] [address] Discharge Disposition: Discharge to home or self care Social History Tobacco Use Types Packs/Day Years Used Date Smoking Tobacco: Never Assessed Sex and Gender Information Value Date Recorded Sex Assigned at Not on file Legal Sex Male 9:03 PM CLAIMS CLERK Gender Identity Not on file Sexual Orientation Straight 10/15/2019 10 :34 PM CLAIMS CLERK documented as of this encounter Medications at Time of Discharge aspirin 81 mg enteric coated tablet ADULT ASPIRIN EC LOW STRENGTH 81 MG ORAL TABLET DELAYED RELEASE 09/13/2013 1 aspirin 81 mg tabletIndication s:ON HOLD Take 81 mg by mouth daily. 07/31/2007 8 vdth-kpg-frb-dayana -neia-resn-ffg (Fiber 6) 1,000 mg tablet FIBER 09/13/2013 [...] Priority Date/Time Associated Diagnosis Comments XR HIP 2+ VW Routine 01/09/2018 5:57 PM CDT XR SPINE LUMBAR 6 OR MORE VIEWS Routine 01/09/2018 5:57 PM CDT documented in this encounter Results * XR Hip 2+ VW (01/09/2018 5:57 PM CDT) Anatomical Region Laterality Modality N/A Radiographic Fartun ging 01/09/2018 5:57 PM CDT Narrative 01/09/2018 7:47 PM CDT MAXIME AMARAL M.D. MALCOM LAGUNAS M.D. FINAL REPORT The radiology attending physician has personally reviewed this study, and has reviewed and/or edited this written report and agrees with it. ACC# ??Date Time ??Exam [id number] Jan 09, 2018 12:57:00 [id number] Spn Lumbar cmp wBend min6v [id number] Jan 09, 2018 12:57:00 00112 Hip Uni & ??Pel if done 2-3v L EXAMINATION: ?? 1. Left hip and pelvis if done 2-3 views 2. Lumbar spine complete with bending minimum 6 views HISTORY: ??Lumbar spondylolysis; left hip osteoarthritis FINDINGS: 6 view examination of the lumbar spine which includes frontal, lateral, lateral with bending, lateral extension, and bilateral oblique views are reviewed and compared with 03/27/2017. 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 ??There is unchanged severe degenerative disc disease T12-L5. ??No listhesis. Laminectomies at L4 and L5 are again noted. ??Severe facet joint osteoarthritis in the mid and lower lumbar spine is noted, right worse than left. ??Hypomobility with flexion and extension and no dynamic listhesis. ??No fracture is present. Atherosclerosis of the abdominal aorta is again noted. 2 view examination of the left hip is reviewed and compared with 09/20/2011. ??There is progressive moderate left hip osteoarthritis. There is no fracture. ??Alignment is normal. IMPRESSION: ??1. 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 2. ??Progressive moderate left hip osteoarthritis. Electronically signed by: Maxime Amaral M.D. Requested By: GERRY SHAFER M.D. Dictated By: ?? MALCOM LAGUNAS M.D. ??on Jan 09 2018 ??2:23P This document has been electronically signed by: MAXIME AMARAL M.D. on Jan 09 2018 ??2:45P [id number] NUÑEZ M.D. FINAL REPORT The radiology attending physician has personally reviewed this study, and has reviewed and/or edited this written report and agrees with it. Attending: ??FREDDIE, ??GERRY Requesting: ??FREDDIE, ??GERRY Requesting Fax: ?? Attending Fax: ?? Attending ID: ??[id number] Requesting ID: ??[id number] Report To 1 ID: ??[id number] ? Report To 1 Name: ??, ?? Report To 1 FAX: ?? NextGen Order #: ?? Procedure Note Miscellaneous, Not In File - 01/09/2018 Amanda NUÑEZ M.D. FINAL REPORT The radiology attending physician has personally reviewed this study, and has reviewed and/or edited this written report and agrees with it. ACC# Date Time Exam [id number] Jan 09, 2018 12:57:00 [id number] Spn Lumbar cmp wBend min6v [id number] Jan 09, 2018 12:57:00 [id number] Hip Uni & Pel if done 2-3v L EXAMINATION: 1. Left hip and pelvis if done 2-3 views 2. Lumbar spine complete with bending minimum 6 views HISTORY: Lumbar spondylolysis; left hip osteoarthritis FINDINGS: 6 view examination of the lumbar spine which includes frontal, lateral, lateral with bending, lateral extension, and bilateral oblique views are reviewed and compared with 03/27/2017. 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 There is unchanged severe degenerative disc disease T12-L5. No listhesis. Laminectomies at L4 and L5 are again noted. Severe facet joint osteoarthritis in the mid and lower lumbar spine is noted, right worse than left. Hypomobility with flexion and extension and no dynamic listhesis. No fracture is present. Atherosclerosis of the abdominal aorta is again noted. 2 view examination of the left hip is reviewed and compared with 09/20/2011. There is progressive moderate left hip osteoarthritis. There is no fracture. Alignment is normal. IMPRESSION: 1. 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 2. Progressive moderate left hip osteoarthritis. Electronically signed by: Maxime Amaral M.D. Requested By: GERRY SHAFER M.D. Dictated By: MALCOM LAGUNAS M.D. on Jan 09 2018 2:23P This document has been electronically signed by: MAXIME AMARAL M.D. on Jan 09 2018 2:45P [id number] NUÑEZ M.D. FINAL REPORT The radiology attending physician has personally reviewed this study, and has reviewed and/or edited this written report and agrees with it. Attending: GERRY SHAFER Requesting: GERRY SHAFER Requesting Fax: Attending Fax: Attending ID: [id number] Requesting ID: [id number] Report To 1 ID: [id number] Report To 1 Name: , Report To 1 FAX: NextGen Order #: us Gerry Shafer MD IMG XR PROCEDURES Final Resul t * XR Spine Lumbar 6 or More Views (01/09/2018 5:57 PM CDT) Anatomical Region Laterality Modality L-spine N/A Radiographic Fartun ging 01/09/2018 5:57 PM CDT Narrative 01/09/2018 7:47 PM CDT Amanda NUÑEZ M.D. FINAL REPORT The radiology attending physician has personally reviewed this study, and has reviewed and/or edited this written report and agrees with it. ACC# ??Date Time ??Exam [id number] Jan 09, 2018 12:57:00 [id number] Spn Lumbar cmp wBend min6v [id number] Jan 09, 2018 12:57:00 28909 Hip Uni & ??Pel if done 2-3v L EXAMINATION: ?? 1. Left hip and pelvis if done 2-3 views 2. Lumbar spine complete with bending minimum 6 views HISTORY: ??Lumbar spondylolysis; left hip osteoarthritis FINDINGS: 6 view examination of the lumbar spine which includes frontal, lateral, lateral with bending, lateral extension, and bilateral oblique views are reviewed and compared with 03/27/2017. 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 ??There is unchanged severe degenerative disc disease T12-L5. ??No listhesis. Laminectomies at L4 and L5 are again noted. ??Severe facet joint osteoarthritis in the mid and lower lumbar spine is noted, right worse than left. ??Hypomobility with flexion and extension and no dynamic listhesis. ??No fracture is present. Atherosclerosis of the abdominal aorta is again noted. 2 view examination of the left hip is reviewed and compared with 09/20/2011. ??There is progressive moderate left hip osteoarthritis. There is no fracture. ??Alignment is normal. IMPRESSION: ??1. 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 2. ??Progressive moderate left hip osteoarthritis. Electronically signed by: Maxime Amaral M.D. Requested By: GERRY SHAFER M.D. Dictated By: ?? MALCOM LAGUNAS M.D. ??on Jan 09 2018 ??2:23P This document has been electronically signed by: MAXIME AMARAL M.D. on Jan 09 2018 ??2:45P [id number] NUÑEZ M.D. FINAL REPORT The radiology attending physician has personally reviewed this study, and has reviewed and/or edited this written report and agrees with it. Attending: ??FREDDIE, ??GERRY Requesting: ??FREDDIE, ??GERRY Requesting Fax: ?? Attending Fax: ?? Attending ID: ??[id number] Requesting ID: ??[id number] Report To 1 ID: ??[id number] ? Report To 1 Name: ??, ?? Report To 1 FAX: ?? NextGen Order #: ?? Procedure Note Miscellaneous, Not In File - 01/09/2018 MAXIME AMARAL M.D. MALCOM LAGUNAS M.D. FINAL REPORT The radiology attending physician has personally reviewed this study, and has reviewed and/or edited this written report and agrees with it. ACC# Date Time Exam [id number] Jan 09, 2018 12:57:00 [id number] Spn Lumbar cmp wBend min6v [id number] Jan 09, 2018 12:57:00 [id number] Hip Uni & Pel if done 2-3v L EXAMINATION: 1. Left hip and pelvis if done 2-3 views 2. Lumbar spine complete with bending minimum 6 views HISTORY: Lumbar spondylolysis; left hip osteoarthritis FINDINGS: 6 view examination of the lumbar spine which includes frontal, lateral, lateral with bending, lateral extension, and bilateral oblique views are reviewed and compared with 03/27/2017. 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 There is unchanged severe degenerative disc disease T12-L5. No listhesis. Laminectomies at L4 and L5 are again noted. Severe facet joint osteoarthritis in the mid and lower lumbar spine is noted, right worse than left. Hypomobility with flexion and extension and no dynamic listhesis. No fracture is present. Atherosclerosis of the abdominal aorta is again noted. 2 view examination of the left hip is reviewed and compared with 09/20/2011. There is progressive moderate left hip osteoarthritis. There is no fracture. Alignment is normal. IMPRESSION: 1. 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 2. Progressive moderate left hip osteoarthritis. Electronically signed by: Maxime Amaral M.D. Requested By: GERRY SHAFER M.D. Dictated By: MALCOM LAGUNAS M.D. on Jan 09 2018 2:23P This document has been electronically signed by: MAXIME AMARAL M.D. on Jan 09 2018 2:45P [id number] AMARAL M.D. MALCOM LAGUNAS M.D. FINAL REPORT The radiology attending physician has personally reviewed this study, and has reviewed and/or edited this written report and agrees with it. Attending: GERRY SHAFER Requesting: GERRY HSAFER Requesting Fax: Attending Fax: Attending ID: [id number] Requesting ID: [id number] Report To 1 ID: [id number] Report To 1 Name: , Report To 1 FAX: NextGen Order #: Gerry Shafer MD IMG XR PROCEDURES Final Resul t documented in this encounter Visit Diagnoses Not on filedocumented in this encounter Care Teams Laminator Preforms Relationship Specialty Start Date End Date Bao Pierre MD [id number] [place] [address] PCP - General 12/22/16 documented as of this encounter
--- OUTSIDE RECORDS SUMMARY | 2024-10-01 08:49 | XMS_ITS | Encounter Summary ---
Author Organization [facility] Address [address] [place] [address] Care Team Providers Care Decoration Checker Name Role Phone Bao Pierre MD Primary Care Provider [phone] Encounter Details Date Type Department Care Team (Latest Contact Info) Description 12/22/2016 10:06 AM CDT - 12/22/2016 11:59 PM CDT Hospital Encounter [facility] [phone] Luc Caballero, NIKKIE [address] [facility] 6A/6B/12A [address] [place] [address] Discharge Disposition: Discharge to home or self care Social History Tobacco Use Types Packs/Day Years Used Date Smoking Tobacco: Never Assessed Sex and Gender Information Value Date Recorded Sex Assigned at Not on file Legal Sex Male 9:03 PM CONVERSION DEVELOPER Gender Identity Not on file Sexual Orientation Straight 10/15/2019 10 :34 PM CONVERSION DEVELOPER documented as of this encounter Medications at Time of Discharge aspirin 81 mg enteric coated tablet ADULT ASPIRIN EC LOW STRENGTH 81 MG ORAL TABLET DELAYED RELEASE 09/13/2013 1 aspirin 81 mg tabletIndication s:ON HOLD Take 81 mg by mouth daily. 07/31/2007 8 jfmj-xye-epq-dayana -cfvd-fkdi-vci (Fiber 6) 1,000 mg tablet FIBER 09/13/2013 [...] Name Priority Date/Time Associated Diagnosis Comments US EXTREMITY COMPLETE Routine 12/22/2016 4:06 PM CDT documented in this encounter Results * US Extremity Complete (12/22/2016 4:06 PM CDT) Anatomical Region Laterality Modality Extremity N/A Ultrasound 12/22/2016 4:06 PM CDT Narrative 12/22/2016 4:06 PM CDT CLAUDIA ZAMUDIO M.D. SANDIP ESTRELLA HO FINAL REPORT The radiology attending physician has personally reviewed this study, and has reviewed and/or edited this written report and agrees with it. ACC# ??Date Time ??Exam [id number] Dec 22, 2016 11:06:00 [id number] Extremity Sono Complete R ACC# ??Date Time ??Exam [id number] Dec 22, 2016 11:06:00 [id number] Extremity Sono Complete R EXAMINATION: ? SHOULDER SONOGRAM HISTORY: ??81-year-old male status post right rotator cuff repair and bursectomy in 2009 with recurrent right shoulder pain for 2 months. FINDINGS: Right Shoulder The biceps tendon is thickened, however is intact. There is no tendon sheath effusion. There are postsurgical changes of prior rotator cuff repair. The rotator cuff is normal in contour and echogenicity. There is no evidence of a recurrent rotator cuff tear. ??There is thickening consistent with tendinopathy of the posterior cuff. The supraspinatus, infraspinatus, and teres minor muscles are normal in thickness and echogenicity and symmetric to the contralateral side. There is no fatty infiltration or atrophy. ?? IMPRESSION: 1. No sonographic evidence of a recurrent rotator cuff tear. ?? Requested By: LUC CABALLERO ??ANP ? Dictated By: ?? SANDIP ESTRELLA ??on Dec 22 2016 11:39A This document has been electronically signed by: CLAUDIA ZAMUDIO M.D. on Dec 22 2016 11:42A [id number] Procedure Note Miscellaneous, Notinfile / Provider, MD Kaci - 02/22/2017 CLAUDIA ZAMUDIO M.D. SANDIP ESTRELLA FINAL REPORT The radiology attending physician has personally reviewed this study, and has reviewed and/or edited this written report and agrees with it. ACC# Date Time Exam [id number] Dec 22, 2016 11:06:00 [id number] Extremity Sono Complete R ACC# Date Time Exam [id number] Dec 22, 2016 11:06:00 [id number] Extremity Sono Complete R EXAMINATION: SHOULDER SONOGRAM HISTORY: 81-year-old male status post right rotator cuff repair and bursectomy in 2009 with recurrent right shoulder pain for 2 months. FINDINGS: Right Shoulder The biceps tendon is thickened, however is intact. There is no tendon sheath effusion. There are postsurgical changes of prior rotator cuff repair. The rotator cuff is normal in contour and echogenicity. There is no evidence of a recurrent rotator cuff tear. There is thickening consistent with tendinopathy of the posterior cuff. The supraspinatus, infraspinatus, and teres minor muscles are normal in thickness and echogenicity and symmetric to the contralateral side. There is no fatty infiltration or atrophy. IMPRESSION: 1. No sonographic evidence of a recurrent rotator cuff tear. Requested By: LUC CABALLERO ANP Dictated By: SANDIP ESTRELLA on Dec 22 2016 11:39A This document has been electronically signed by: CLAUDIA ZAMUDIO M.D. on Dec 22 2016 11:42A [id number] us Not In File Miscellaneous IMG US PROCEDURES Laura l Result documented in this encounter Visit Diagnoses Not on filedocumented in this encounter Care Teams Decoration Checker Relationship Specialty Start Date End Date Bao Pierre MD [address] [facility] [address] [place] [address] PCP - General 12/22/16 documented as of this encounter
--- OUTSIDE RECORDS SUMMARY | 2024-10-01 08:49 | XMS_ITS | Encounter Summary ---
Author Organization [facility] Care Team Providers Care Board Winder Name Role Phone Unavailable Primary Care Provider Unavailabl e Encounter Details Date Type Department Care Team (Latest Contact Info) Description 08/04/2010 - 08/04/2010 11:59 PM CDT Hospital Encounter [facility] Y[facility]EL[facility] King MD [address] [place] [address] [address] [place] [address] Strain of infraspinatus muscle or tendon Social History Tobacco Use Types Packs/Day Years Used Date Smoking Tobacco: Never Assessed Sex and Gender Information Value Date Recorded Sex Assigned at Not on file Legal Sex Male 9:03 PM LOG SCALER Gender Identity Not on file Sexual Orientation Straight 10/15/2019 10 :34 PM LOG SCALER documented as of this encounter Medications at Time of Discharge aspirin 81 mg tabletIndications :ON HOLD Take 81 mg by mouth daily. 07/31/2007 05/29/2018 lisinopril-hydroC HLOROthiazide (ZESTORETIC) 10-12.5 mg per tablet 10/02/1969 03/08/2022 documented as of this encounter Plan of Treatment Not on file documented as of this encounter Visit Diagnoses Diagnosis Strain of infraspinatus muscle or tendon Infraspinatus (muscle) (tendon) sprain and strain documented in this encounter
--- OUTSIDE RECORDS SUMMARY | 2024-10-01 08:49 | XMS_ITS | Encounter Summary ---
Author Organization [facility] Address [address] [place] [address] Phone Care Team Providers Care Peace Officer Name Role Phone Bao Pierre MD Primary Care Provider [phone] Encounter Details Date Type Department Care Team (Late st Contact Info) Description 05/23/2018 Orders Only [facility] Orthopaedic Surgery [address] [facility] Advanced Medicine 12th [place] [address] [place] [address] Hilary Liang MD [address] [place] [address] Social History Tobacco Use Types Packs/Day Years Used Date Smoking Tobacco: Former Pipe 2015 Smokeless Tobacco: Never Comments:5-6 times a day Alcohol Use Standard Drinks/Week Comments No 0 (1 standard drink = 0.6 oz pur e alcohol) Sex and Gender Information Value Date Recorded Sex Assigned at Not on file Legal Sex Male 9:03 PM PEDIATRIC REGISTERED NURSE Gender Identity Not on file Sexual Orientation Straight 10/15/2019 10 :34 PM PEDIATRIC REGISTERED NURSE documented as of this encounter Ordered Prescriptions Prescription Sig Dispense Quantity Refills Last Filled Start Date End Date celecoxib (CeleBREX) 100 mg capsuleIndications :Osteoarthritis,Po stoperative Acute Pain TAKE 2 PILLS WITH BREAKFAST THE DAY BEFORE SX. TAKE 1 PILL BID AFTER DISCHARGE. 10 capsule 05/23/2018 9 documented in this encounter Plan of Treatment Not on file documented as of this encounter Visit Diagnoses Not on filedocumented in this encounter Care Teams Peace Officer Relationship Specialty Start Date End Date Bao Pierre MD [address] [place] [address] PCP - General 12/22/16 documented as of this encounter
--- OUTSIDE RECORDS SUMMARY | 2024-10-01 08:49 | XMS_ITS | Encounter Summary ---
Author Organization [facility] Address [address] [place] [address] Care Team Providers Care Apparel Manager Name Role Phone Unavailable Primary Care Provider Unavailabl e Encounter Details Date Type Department Care Team (Latest Contact Info) Description 09/17/2013 7:07 AM PHP MYSQL DEVELOPER - 09/17/2013 1:50 PM PHP MYSQL DEVELOPER [place] [address] [address] [place] coronary artery; Essential hypertension; Chest pain; Other nonspecific abnormal cardiovascular system function study Social History Tobacco Use Types Packs/Day Years Used Date Smoking Tobacco: Never Assessed Sex and Gender Information Value Date Recorded Sex Assigned at Not on file Legal Sex Male 9:03 PM PHP MYSQL DEVELOPER Gender Identity Not on file Sexual Orientation Straight 10/15/2019 10 :34 PM PHP MYSQL DEVELOPER documented as of this encounter Medications at Time of Discharge aspirin 81 mg enteric coated tablet ADULT ASPIRIN EC LOW STRENGTH 81 MG ORAL TABLET DELAYED RELEASE 09/13/2013 1 aspirin 81 mg tabletIndication s:ON HOLD Take 81 mg by mouth daily. 07/31/2007 8 xxbm-ibu-dbq-dayana -ptrl-fsmr-xwd (Fiber 6) 1,000 mg tablet FIBER 09/13/2013 [...] Name Priority Date/Time Associated Diagnosis Comments CARDIOLOGY PROCEDURE LOG 09/17/2013 CARDIAC CATHETERIZATION Routine 09/17/20 13 12:00 AM PHP MYSQL DEVELOPER documented in this encounter Results * CARDIOLOGY PROCEDURE LOG (09/17/2013) Anatomical Region Laterality Modality X-Ray Angiograph y Narrative 09/17/2013 Ordered by an unspecified provider. us Historical Provider MD TERRAZAS CARDIAC CATH PROCEDURE S Final Result * Cardiac Catheterization (09/17/2013 12:00 AM PHP MYSQL DEVELOPER) Anatomical Region Laterality Modality X-Ray Angiograph y 09/17/2013 Narrative 09/17/2013 11:26 AM PHP MYSQL DEVELOPER ?CARDIAC TRAUMA THERAPIST Patient: ??FRANDY ALVARES Pablito ? : ? 1935 Account: ??[id number] ? Age: ? 78 Film No: ? Room No: ? [facility]- Attend.: ??Vee James M.D. ? Patient Type: ??SDS Dict.: ?Sanjaya Saheta, M.D. ? Admit Date: ?09/17/2013 ? CARDIAC CATHETERIZATION REPORT Date of Exam: ??09/17/2013 INDICATION: ??The patient is a 78-year-old male who has been seen by Dr. Bridges. He has been experiencing episodes of chest pain, abnormal stress test, inferior wall defect, and triaged for cardiac catheterization. PROCEDURES PERFORMED ??1. ??Selective coronary angiography. ??2. ??Left ventriculography. ??3. ??Bilateral renal angiogram. ??4. ??Right femoral angiogram. ??5. ??Angio-Seal deployment. PROCEDURE NOTE: ??After informed consent was obtained the patient underwent standard sterile prep and drape. Right femoral arterial access was obtained utilizing a micro-puncture kit. All exchanges were done utilizing guide wire. The 5 [place] JL-4, JR-4, and pigtail catheters were used for angiographic imaging, which was performed in various angles to delineate coronary anatomy. Findings include the left main trunk is large, long, widely patent, appears to be grossly normal. The LAD was a large-size vessel, which has first, second, and third diagonal vessels. The LAD has a small minor 10% lesion noted proximal to the second diagonal. Otherwise, the remainder of the LAD and the diagonal vessels appear to be widely patent and appear to be grossly normal. The left circumflex is a nondominant vessel, which has a large AV groove that extends to a small, thready obtuse marginal, one small, thready obtuse marginal 2, small obtuse marginal 3, and a large distal obtuse marginal 4, which is tortuous and is noted to be otherwise widely patent. The AV groove and the obtuse marginal branches are all noted to be widely patent and appear to be grossly normal. Right coronary artery is a large, dominant vessel, which has a large AV groove extending to a medium-sized PDA and PLV branches, all of which appear to be widely patent and grossly normal. Bilateral renal angiography was performed in the setting of a history of hypertension with JR-4 catheter selectively engaging the renal artery. Single renal artery was found bilaterally with normal renal arteries without evidence of renal artery stenosis. Normal kidney size is appreciated bilaterally. Left ventriculogram is performed, demonstrating normal left ventricular chamber size and systolic function. Ejection fraction is estimated at roughly 55% with normal left ventricular volumes, wall motion, and ejection fraction. Aortic pressure is 168/80 with a mean arterial pressure of 116, an end diastolic pressure of 116. Left ventricular pressure is 170/7 with an end diastolic pressure of 24. IMPRESSION ??1. ??Virtually normal coronary vasculature with minimal disease of the LAD. ??2. ??Normal left ventricular function. ??3. ??Minimally elevated left ventricular end diastolic pressure. ??4. ??Elevated MEDICATION AID. ??5. ??Normal renal arteries. RECOMMENDATION: ??The patient should be continued for medical management, afterload reduction, blood pressure management, risk factor modification. Right femoral angiography was performed. Angio-Seal was deployed. No evidence of oozing, bruising, bleeding, or hematoma. Dictated by Amanda Waterman/kg Job #: ??[id number] DD: ??09/17/2013 09:28 TD: ??09/17/2013 11:26 Authenticated by Yamila Vaughan MD On 10/15/2013 10:18:44 AM Procedure Note Provider, MD Kaci - 01/31/2017 CARDIAC TRAUMA THERAPIST Patient: FRANDY ALVARES : 1935 Account: [id number] Age: 78 Film No: Room No: [facility] Attend.: Vee James M.D. Patient Type: SDS Dict.: Yamila Vaughan M.D. Admit Date: 09/17/2013 CARDIAC CATHETERIZATION REPORT Date of Exam: 09/17/2013 INDICATION: The patient is a 78-year-old male who has been seen by Dr. Bridges. He has been experiencing episodes of chest pain, abnormalstress test, inferior wall defect, and triaged for cardiac catheterization. PROCEDURES PERFORMED 1. Selective coronary angiography. 2. Left ventriculography. 3. Bilateral renal angiogram. 4. Right femoral angiogram. 5. Angio-Seal deployment. PROCEDURE NOTE: After informed consent was obtained the patientunderwent standard sterile prep and drape. Right femoral arterial access wasobtained utilizing a micro-puncture kit. All exchanges were done utilizing guidewire. The 5 [place] JL-4, JR-4, and pigtail catheters were used forangiographic imaging, which was performed in various angles to delineate coronaryanatomy. Findings include the left main trunk is large, long, widely patent,appears to be grossly normal. The LAD was a large-size vessel, which has first, second, and thirddiagonal vessels. The LAD has a small minor 10% lesion noted proximal to thesecond diagonal. Otherwise, the remainder of the LAD and the diagonal vesselsappear to be widely patent and appear to be grossly normal. The left circumflex is a nondominant vessel, which has a large AV groovethat extends to a small, thready obtuse marginal, one small, thready obtusemarginal 2, small obtuse marginal 3, and a large distal obtuse marginal 4, whichis tortuous and is noted to be otherwise widely patent. The AV groove andthe obtuse marginal branches are all noted to be widely patent and appear luciano grossly normal. Right coronary artery is a large, dominant vessel, which has a large AVgroove extending to a medium-sized PDA and PLV branches, all of which appear luciano widely patent and grossly normal. Bilateral renal angiography was performed in the setting of a history of hypertension with JR-4 catheter selectively engaging the renal artery.Single renal artery was found bilaterally with normal renal arteries withoutevidence of renal artery stenosis. Normal kidney size is appreciated bilaterally. Left ventriculogram is performed, demonstrating normal left ventricularchamber size and systolic function. Ejection fraction is estimated at roughly 55%with normal left ventricular volumes, wall motion, and ejection fraction.Aortic pressure is 168/80 with a mean arterial pressure of 116, an enddiastolic pressure of 116. Left ventricular pressure is 170/7 with an enddiastolic pressure of 24. IMPRESSION 1. Virtually normal coronary vasculature with minimal disease of theLAD. 2. Normal left ventricular function. 3. Minimally elevated left ventricular end diastolic pressure. 4. Elevated MEDICATION AID. 5. Normal renal arteries. RECOMMENDATION: The patient should be continued for medical management, afterload reduction, blood pressure management, risk factormodification. Right femoral angiography was performed. Angio-Seal was deployed. Noevidence of oozing, bruising, bleeding, or hematoma. Dictated by Amanda Waterman/rahul TD: 09/17/2013 11:26 Authenticated by Yamila Vaughan MD On 10/15/2013 10:18:44 AM us Historical Provider CV CARDIAC CATH PROCEDURE S Final Result documented in this encounter Visit Diagnoses Diagnosis Coronary atherosclerosis of [place] coronary artery Essential hypertension Unspecified essential hypertension Chest pain Unspecified chest pain Other nonspecific abnormal cardiovascular system function study documented in this encounter
--- OUTSIDE RECORDS SUMMARY | 2024-10-01 08:49 | XMS_ITS | Encounter Summary ---
Author Organization [facility] Address [address] [place] [address] Phone Care Team Providers Care Unload Associate Name Role Phone Bao Pierre MD Primary Care Provider [phone] Reason for Visit * Reason Comments Pain Encounter Details Date Type Department Care Team (Latest Contact Info) Description 05/03/2018 9:10 AM CDT Office Visit [facility] Orthopaedic Surgery [address] 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 [employer] H Club Agent, Orthopaedic Surgery documented in this encounter Plan of Treatment Not on file documented as of this encounter Visit Diagnoses Diagnosis Primary osteoarthritis of left hip- Primary documented in this encounter Discontinued Medications Medication Sig Discontinue Reason Start Date End Da te tamsulosin (FLOMAX) 0.4 mg extended release capsule Error 05/03/2018 finasteride (PROPECIA) 1 mg tabletIndications:Male Patterned Baldness daily. Error 05/03/2018 documented as of this encounter Historical Medications * This list may reflect changes made after this encounter. hydroxychloroquin e (PLAQUENIL) 200 mg tablet Take 200 mg by mouth daily. 05/23/2018 finasteride (PROSCAR) 5 mg tabletIndications :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 Take 1 tablet (5 mg total) by mouth daily 05/23/2024 multivitamin with minerals tablet Take 2 tablets by mouth daily. 05/29/2018 lovastatin (MEVACOR) 20 mg tabletIndications :hyperlipidemia Take 20 mg by mouth daily. 12 02/15/2018 12/03/2019 alfuzosin ER (UROXATRAL) 10 mg 24 hr tabletIndications :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 Take 1 tablet (10 mg total) by mouth daily 05/23/2024 added in this encounter Care Teams Unload Associate Relationship Specialty Start Date End Date Bao Pierre MD [address] [address] PCP - General 12/22/16 documented as of this encounter
--- OUTSIDE RECORDS SUMMARY | 2024-10-01 08:49 | XMS_ITS | Encounter Summary ---
Author Organization [facility] Healthcare Address [address] [place] [address] Care Team Providers Care Machine Hamper Maker Name Role Phone Bao Pierre MD Primary Care Provider [phone] Reason for Referral * Diagnostic Imaging (Routine) - Closed Specialty Diagnoses / Procedures Referred By Contac t Referred To Contact Diagnoses Pain of left hip joint Procedures XR Pelvis 1 or 2 Views Ange Ramires PA Phone: tel: fax: [address] [address] Referral ID Status Reason Start Date Expiration Date Visits Re quested Visits Authorized [id number] Closed 03/27/2018 10/06/2019 1 1 Reason for Visit * Diagnostic Imaging (Routine) - Closed Specialty Diagnoses / Procedures Referred By Amber flores Referred To Contact Diagnoses Pain of left hip joint Procedures XR Pelvis 1 or 2 Views Ange Ramires PA Phone: tel: fax: [address] [phone] Referral ID Status Reason Start Date Expiration Date Visits Re quested Visits Authorized [id number] Closed 03/27/2018 10/06/2019 1 1 Encounter Details Date Type Department Care Team (Latest Contact Info) Description 03/27/2018 8:51 AM CDT - 03/27/2018 11:59 PM CDT Hospital Encounter [facility] [place] [address] Ange Ramires PA [address] [place] [address] Pain of left hip joint Discharge Disposition: Discharge to home or self care Social History Tobacco Use Types Packs/Day Years Used Date Smoking Tobacco: Never Smokeless Tobacco: Never Sex and Gender Information Value Date Recorded Sex Assigned at Not on file Legal Sex Male 9:03 PM 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 07/31/2007 8 xzhe-ufe-kut-dayana -vtew-bfnp-gus (Fiber 6) 1,000 mg tablet FIBER 09/13/2013 1 finasteride (PROPECIA) 1 mg tabletIndication s:Male Patterned Baldness daily. 8 glucosamine sulfate 2KCl 500 mg capsule GLUCOSAMINE CAPSULE 09/13/2013 1 glucosamine sulfate 500 mg capsule GLUCOSAMINE CAPSULE 09/13/2013 3 glucosamine-tish droitin 250-200 mg tablet Take 1 tablet by mouth 2 times daily. 8 lisinopril-hydro CHLOROthiazide (ZESTORETIC) 10-12.5 mg per tablet 10/02/1969 2 lovastatin (MEVACOR) 20 mg tabletIndication s:hyperlipidemia Take 20 mg by mouth daily. 12 02/15/2018 0 naproxen sodium 220 mg capsule ALEVE CAPSULE 09/13/2013 02 1 polycarbophil (FIBER-TABS) 625 mg tablet 8 tamsulosin (FLOMAX) 0.4 mg extended release capsule 8 documented as of this encounter Discharge Disposition Disposition Code Departure Means Destination Discharge to home or self care documented in this encounter Plan of Treatment Not on file documented as of this encounter Procedures Procedure Name Priority Date/Time Associated Diagnosis Comments XR PELVIS 1 OR 2 VIEWS Schedule Routine, Read Routine (OP Routine) 03/27/2018 8:59 AM CDT Pain of left hip joint documented in this encounter Results * XR Pelvis 1 or 2 Views (03/27/2018 8:59 AM CDT) Anatomical Region Laterality Modality Body, Pelvis N/A Computed Radiogr aphy 03/27/2018 9:35 AM CDT Impressions 03/27/2018 10:10 AM CDT 1. Progressive, severe left hip osteoarthritis. Given the short-term interval progression with uysq-pb-dzeu joint space narrowing, joint space aspiration should be considered if there is clinical concern for underlying infection. 2. Progressive, mild right hip osteoarthritis. Electronically signed by: Jerald Beaulieu MD, PHD Narrative 03/27/2018 10:10 AM CDT EXAMINATION: Pelvis 1 or 2 views HISTORY: Left hip osteoarthritis. FINDINGS: AP view of the pelvis is compared to left hip radiographs dated 01/09/2018 and pelvis radiograph dated 09/20/2011. There is no fracture. Alignment is normal. There is progressive, severe left hip osteoarthritis. There is progressive, mild right hip osteoarthritis. Procedure Note Jerald Beaulieu MD PhD - 03/27/2018 EXAMINATION: Pelvis 1 or 2 views HISTORY: Left hip osteoarthritis. FINDINGS: AP view of the pelvis is compared to left hip radiographs dated 01/09/2018 and pelvis radiograph dated 09/20/2011. There is no fracture. Alignment is normal. There is progressive, severe left hip osteoarthritis. There is progressive, mild right hip osteoarthritis. IMPRESSION: 1. Progressive, severe left hip osteoarthritis. Given the short-term interval progression with ciuy-vy-jvbl joint space narrowing, joint space aspiration should be considered if there is clinical concern for underlying infection. 2. Progressive, mild right hip osteoarthritis. Electronically signed by: Jerald Beaulieu MD, PHD Ange OROPEZA IMG XR PROCEDURES Final Result documented in this encounter Visit Diagnoses Diagnosis Pain of left hip joint documented in this encounter Care Teams Machine Hamper Maker Relationship Specialty Start Date End Date Bao Pierre MD [address] [facility] [address] [place] [address] PCP - General 12/22/16 documented as of this encounter
--- OUTSIDE RECORDS SUMMARY | 2024-10-01 08:49 | XMS_ITS | Encounter Summary ---
Author Organization [facility] Facility Care Team Providers Care Cook House Supervisor Name Role Phone Unavailable Primary Care Provider Unavailabl e Encounter Details Date Type Department Care Team (Late st Contact Info) Description 06/01/2015 - 06/01/2015 11:59 PM CDT 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 07/31/2007 8 qdsm-avn-uis-dayana -ylaw-yhkn-hoo (Fiber 6) 1,000 mg tablet FIBER 09/13/2013 [...] Date/Time Associated Diagnosis Comments XR SPINE LUMBAR ROUTINE Routine 06/01/2015 9:49 AM CDT documented in this encounter Results * XR Lumbar Spine Routine (06/01/2015 9:49 AM CDT) Anatomical Region Laterality Modality L-spine N/A Radiographic Fartun ging 06/01/2015 9:49 AM CDT Narrative 06/01/2015 10:17 AM CDT XOCHITL CANNON M.D. FINAL REPORT ACC# ??Date Time ??Exam [id number] Jun 01, 2015 09:49:00 [id number] Spine Lumbar min 4 views EXAMINATION: ?Lumbar spine, minimum 4 views HISTORY: ??Lumbar scoliosis and stenosis. FINDINGS: ?? AP, lateral, flexion, and extension views of the lumbar spine compared with lumbar spine radiographs dated 09/20/2011 and lumbar MRI dated 04/06/2015. There is mild rotatory dextroscoliosis of the lumbar spine with apex at L3. Vertebral body heights are normal. There is moderate to severe diffuse degenerative disc disease throughout the lumbar spine. The lumbar spine is hypomobile with flexion and extension. There is multilevel facet osteoarthritis in the lower lumbar spine. There is central canal narrowing in the lumbar spine. IMPRESSION: ?? 1. 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 Requested By: Dictated By: ?? XOCHITL CANNON M.D. ??on Jun 01 2015 10:17A This document has been electronically signed by: XOCHITL CANNON M.D. on Jun 01 2015 10:17A [id number] Procedure Note Provider, MD Kaci - 01/25/2017 XOCHITL CANNON M.D. FINAL REPORT ACC# Date Time Exam [id number] Jun 01, 2015 09:49:00 [id number] Spine Lumbar min 4 views EXAMINATION: Lumbar spine, minimum 4 views HISTORY: Lumbar scoliosis and stenosis. FINDINGS: AP, lateral, flexion, and extension views of the lumbar spine compared with lumbar spine radiographs dated 09/20/2011 and lumbar MRI dated 04/06/2015. There is mild rotatory dextroscoliosis of the lumbar spine with apex at L3. Vertebral body heights are normal. There is moderate to severe diffuse degenerative disc disease throughout the lumbar spine. The lumbar spine is hypomobile with flexion and extension. There is multilevel facet osteoarthritis in the lower lumbar spine. There is central canal narrowing in the lumbar spine. IMPRESSION: 1. 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 Requested By: Dictated By: XOCHITL CANNON M.D. on Jun 01 2015 10:17A This document has been electronically signed by: XOCHITL CANNON M.D. on Jun 01 2015 10:17A [id number] us Historical Provider MD PHILLIPS XR PROCEDURES Final R esult documented in this encounter Visit Diagnoses Diagnosis Scoliosis (and kyphoscoliosis), idiopathic Degeneration of lumbar or lumbosacral intervertebral disc Lumbosacral spondylosis without myelopathy documented in this encounter
--- OUTSIDE RECORDS SUMMARY | 2024-10-01 08:49 | XMS_ITS | Encounter Summary ---
Author Organization [facility] Facility Care Team Providers Care Personnel Clerks Supervisor Name Role Phone Unavailable Primary Care Provider Unavailabl e Encounter Details Date Type Department Care Team (Late st Contact Info) Description 07/28/2010 - 07/28/2010 11:59 PM CDT [facility] Ju Faulkner MD [address] [place] [address] [address] [place] [address] Osteoarthrosis, pelvic region and thigh Social History Tobacco Use Types Packs/Day Years Used Date Smoking Tobacco: Never Assessed Sex and Gender Information Value Date Recorded Sex Assigned at Not on file Legal Sex Male 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 07/31/2007 05/29/2018 lisinopril-hydroC HLOROthiazide (ZESTORETIC) 10-12.5 mg per tablet 10/02/1969 03/08/2022 documented as of this encounter Plan of Treatment Not on file documented as of this encounter Visit Diagnoses Diagnosis Osteoarthrosis, pelvic region and thigh documented in this encounter
--- OUTSIDE RECORDS SUMMARY | 2024-10-01 08:49 | XMS_ITS | Encounter Summary ---
Author Organization [facility] Address [address] [place] [address] Phone Care Team Providers Care Heating And Ventilation Engineer Name Role Phone Bao Pierre MD Primary Care Provider [phone] Encounter Details Date Type Department Care Team (Late st Contact Info) Description 03/27/2018 Telephone [facility] Orthopaedic Surgery [address] [facility] 12th [place] [address] [place] [address] Ange Ramires PA [address] [place] [address] Social History Tobacco Use Types Packs/Day Years Used Date Smoking Tobacco: Never Smokeless Tobacco: Never Sex and Gender Information Value Date Recorded Sex Assigned at Not on file Legal Sex Male 9:03 PM COPPER PLATE PRINTER Gender Identity Not on file Sexual Orientation Straight 10/15/2019 10 :34 PM COPPER PLATE PRINTER documented as of this encounter Miscellaneous Notes * Telephone Encounter - Janessa Pablo MA - 04/17/2018 12:57 PM CDT PT WAS SCHEDULED W/ DR FRYE HIS NEXT AVAILL WAS JUN . PT RUEDTED SOONER APPT SO APPT WAS SCHEDULED W/ DR FAUSTIN IS AWARE OF APPT DATE AND TIME * Telephone Encounter - Casie Toro - 04/11/2018 10:16 AM CDT [phone] and or [phone] patient is calling states we were working on getting him in soonerwith * Telephone Encounter - Senait Panchal MA - 03/30/2018 4:20 PM CDT Spoke with patient. Janessa, did you mail him paperwork regarding the US appointment? (He asked me and I wasn't sure) * Telephone Encounter - Ange Ramires PA - 03/30/2018 3:36 PM CDT Please let pt know his labs were not showing signs of infection, we will wait and see what hip aspiration shows too. Thanks * Telephone Encounter - Janessa Pablo MA - 03/29/2018 5:12 PM CDT FYI- Re: Outside Labs : This was Task Ange for Review U/S appt Has Been Scheduled W/ one of our Attendings * Telephone Encounter - Nena Cortez - 03/29/2018 9:02 AM CDT Lab results received from [facility] and sent to STAT scanning. * Telephone Encounter - Janessa Pablo MA - 03/27/2018 2:18 PM CDT FYI- LAB REQ WAS FAXED TO [facility] [place] ( FAX) [phone] PT WAS ALSO SCHEDULE W/ DR FOR U/S ASPIRATION RPV APPT WITH ONE OF OUR ATTENDINGS * Telephone Encounter - Ange Ramires PA - 03/27/2018 10:02 AM CDT Xray results came back not only showing progressive severe left hip OA, but the radiologist suggested that an underlying infection may be the source since this developed s/p hip injection. I consulted Dr. Larsen regarding this finding. Pt does not exhibit signs/sx of infection, however, since we are referring to a surgeon for CHRISTIANO discussion, she recommends we rule out infection anyway. 1. Please fax over orders for CBC with diff, ESR, and CRP to [facility] in [place] 2. Please schedule pt for left hip joint aspiration procedure r/o intraarticular infection Thanks documented in this encounter Plan of Treatment Not on file documented as of this encounter Visit Diagnoses Not on filedocumented in this encounter Care Teams Heating And Ventilation Engineer Relationship Specialty Start Date End Date Bao Pierre MD [address] [address] PCP - General 12/22/16 documented as of this encounter
--- OUTSIDE RECORDS SUMMARY | 2024-10-01 08:49 | XMS_ITS | Encounter Summary ---
Author Organization [facility] Facility Care Team Providers Care Window Trimmer Apprentice Name Role Phone Unavailable Primary Care Provider Unavailabl e Encounter Details Date Type Department Care Team (Late st Contact Info) Description 10/17/2012 - 10/17/2012 11:59 PM TRANSFER ENGINEER Hospital [facility]counter [facility] Gerry Shafer MD [id number] [place] [address] Closed fracture of lumbar vertebra (CMS/HCC) (HCC); Spinal stenosis of lumbar region without neurogenic claudication Social History Tobacco Use Types Packs/Day Years Used Date Smoking Tobacco: Never Assessed Sex and Gender Information Value Date Recorded Sex Assigned at Not on file Legal Sex Male 9:03 PM TRANSFER ENGINEER Gender Identity Not on file Sexual Orientation Straight 10/15/2019 10 :34 PM TRANSFER ENGINEER documented as of this encounter Medications [...] Comments MRI LUMBAR SPINE WO CONTRAST Routine 10/17/2012 11:28 AM TRANSFER ENGINEER documented in this encounter Results * MRI Lumbar Spine WO Contrast (10/17/2012 11:28 AM TRANSFER ENGINEER) Anatomical Region Laterality Modality Spine N/A Magnetic Resonan ce 10/17/2012 11:2 8 AM TRANSFER ENGINEER Narrative 10/17/2012 5:29 PM TRANSFER ENGINEER JENS GILES M.D. KONRAD PAPPAS M.D. FINAL REPORT The radiology attending physician has personally reviewed this study, and has reviewed and/or edited this written report and agrees with it. ACC# ??Date Time ??Exam [id number] Oct 17, 2012 11:28:00 [id number] MRI Lumbar Spine wo cont EXAMINATION: ?? MR lumbar spine without contrast HISTORY: Lumbar spondylosis COMPARISON: Lumbar spine radioactive 09/20/2011 Technique: MR lumbar spine with obtained without contrast, according to the standard protocol. FINDINGS: There is minimal retrolisthesis of L1-L2, L2-L3, and L3-L4. Mild compression fractures of L1 and L2 are noted with associated bone marrow edema, and less than 10% loss of vertebral body height. Severe disc desiccation and intervertebral disc height loss is noted at multiple levels, most prominent at L1-L2, L2-L3, and L3-L4. No soft tissue of abnormality. L1-L2: Moderate disc bulge. Moderate facet arthritis. Severe left and moderate to severe right foraminal stenosis. Moderate to severe spinal canal stenosis. Severe right and moderate left lateral recess stenosis. Ligamentum flavum hypertrophy is noted. L2-L3: Diffuse disc bulge. Moderate facet arthritis. Moderate bilateral foraminal stenosis. Mild spinal canal stenosis. L3-L4: Moderate disc bulge. Moderate to severe facet arthritis. Moderate to severe right and severe left foraminal stenosis. Moderate bilateral lateral recess stenosis. Moderate canal stenosis. L4-L5: Disc bulge with superimposed left foraminal protrusion. Moderate to severe facet arthritis. Moderate to severe bilateral foraminal stenosis. Moderate spinal canal stenosis. L5-S1: Mild disc bulge. Severe right facet arthritis. Mild bilateral foraminal stenosis. No spinal canal stenosis. IMPRESSION: ?? 1. Mild compression fractures are noted at L1 and L2 with associated bone marrow edema. 2. Moderate to severe multilevel degenerative disc disease, with superimposed moderate to severe multilevel facet arthritis, resulting in moderate to severe foraminal stenosis, lateral recess stenosis, and spinal canal stenosis, most severe at L1-L2, L3-L4, and L4-L5. Requested By: GERRY SHAFER ??Amanda Dictated By: ?? KONRAD PAPPAS M.D. ??on Oct 17 2012 ??1:18P This document has been electronically signed by: JENS GILES M.D. on Oct 17 2012 ??5:29P Procedure Note Provider, MD Kaci - 01/25/2017 JENS GILES M.D. KONRAD PAPPAS M.D. FINAL REPORT The radiology attending physician has personally reviewed this study, and has reviewed and/or edited this written report and agrees with it. ACC# Date Time Exam [id number] Oct 17, 2012 11:28:00 [id number] MRI Lumbar Spine wo cont EXAMINATION: MR lumbar spine without contrast HISTORY: Lumbar spondylosis COMPARISON: Lumbar spine radioactive 09/20/2011 Technique: MR lumbar spine with obtained without contrast, according to the standard protocol. FINDINGS: There is minimal retrolisthesis of L1-L2, L2-L3, and L3-L4. Mild compression fractures of L1 and L2 are noted with associated bone marrow edema, and less than 10% loss of vertebral body height. Severe disc desiccation and intervertebral disc height loss is noted at multiple levels, most prominent at L1-L2, L2-L3, and L3-L4. No soft tissue of abnormality. L1-L2: Moderate disc bulge. Moderate facet arthritis. Severe left and moderate to severe right foraminal stenosis. Moderate to severe spinal canal stenosis. Severe right and moderate left lateral recess stenosis. Ligamentum flavum hypertrophy is noted. L2-L3: Diffuse disc bulge. Moderate facet arthritis. Moderate bilateral foraminal stenosis. Mild spinal canal stenosis. L3-L4: Moderate disc bulge. Moderate to severe facet arthritis. Moderate to severe right and severe left foraminal stenosis. Moderate bilateral lateral recess stenosis. Moderate canal stenosis. L4-L5: Disc bulge with superimposed left foraminal protrusion. Moderate to severe facet arthritis. Moderate to severe bilateral foraminal stenosis. Moderate spinal canal stenosis. L5-S1: Mild disc bulge. Severe right facet arthritis. Mild bilateral foraminal stenosis. No spinal canal stenosis. IMPRESSION: 1. Mild compression fractures are noted at L1 and L2 with associated bone marrow edema. 2. Moderate to severe multilevel degenerative disc disease, with superimposed moderate to severe multilevel facet arthritis, resulting in moderate to severe foraminal stenosis, lateral recess stenosis, and spinal canal stenosis, most severe at L1-L2, L3-L4, and L4-L5. Requested By: GERRY SHAFER M.D. Dictated By: KONRAD PAPPAS M.D. on Oct 17 2012 1:18P This document has been electronically signed by: JENS GILES M.D. on Oct 17 2012 5:29P Historical Provider MD PHILLIPS MRI PROCEDURES Final Result documented in this encounter Visit Diagnoses Diagnosis Closed fracture of lumbar vertebra (CMS/HCC) (HCC) Closed fracture of lumbar vertebra without mention of spinal cord injury Spinal stenosis of lumbar region without neurogenic claudication documented in this encounter
--- OUTSIDE RECORDS SUMMARY | 2024-10-01 08:49 | XMS_ITS | Encounter Summary ---
Author Organization [facility] Facility Care Team Providers Care Vessel Traffic Officer Name Role Phone Unavailable Primary Care Provider Unavailabl e Encounter Details Date Type Department Care Team (Late st Contact Info) Description 2015 7:23 AM CDT - 07/24/2015 6:10 PM CDT Hospital Encounter [facility] Sameer Weir MD [address] [place] [address] DR DEPT NEUROSURGERY, [place] [address] Spinal stenosis of lumbar region; Essential (primary) hypertension; Uncomplicated asthma; Nicotine dependence, other tobacco product, uncomplicated Social History Tobacco Use Types Packs/Day Years Used Date Smoking Tobacco: Never Assessed Sex and Gender Information Value Date Recorded Sex Assigned at Not on file Legal Sex Male 9:03 PM LANG PATH THERAPIST Gender Identity Not on file Sexual Orientation Straight 10/15/2019 10 :34 PM LANG PATH THERAPIST documented as of this encounter Last Filed Vital Signs Vital Sign Reading Time Taken Comments Blood Pressure 129/63 07/24/2015 1:31 PM CDT Pulse 66 07/24/2015 1:31 PM CDT Temperature - - Respiratory Rate - - Oxygen Saturation 96% 07/24/2015 1:31 PM CDT Inhaled Oxygen Concentration - - Weight 98.9 kg (217 lb 15.9 oz) 2015 3:30 PM CDT Height 175.3 cm (5' 9 ) 2015 3:30 PM CDT Body Mass Index 32.19 2015 3:30 PM CDT documented in this encounter Medications at Time of Discharge aspirin 81 mg enteric coated tablet ADULT ASPIRIN EC LOW STRENGTH 81 MG ORAL TABLET DELAYED RELEASE 09/13/2013 1 aspirin 81 mg tabletIndication s:ON HOLD Take 81 mg by mouth daily. 07/31/2007 8 zguw-ovo-ebq-dayana -ipyc-pqkl-hwk (Fiber 6) 1,000 mg tablet FIBER 09/13/2013 1 glucosamine sulfate 2KCl 500 mg capsule GLUCOSAMINE CAPSULE 09/13/2013 1 glucosamine sulfate 500 mg capsule GLUCOSAMINE CAPSULE 09/13/2013 3 lisinopril-hydro CHLOROthiazide (ZESTORETIC) 10-12.5 mg per tablet 10/02/1969 2 naproxen sodium 220 mg capsule ALEVE CAPSULE 09/13/2013 02 1 documented as of this encounter Miscellaneous Notes * Op Note - Provider, MD Kaci - 2015 12:00 AM CDT Patient: Frandy Alvares Reg No: [id number] [facility] #: [id number] Admit Dt.: 2015 : 1935 Pt Type: 100 Room No: OTHER Attending: Sameer Chance M.D. Surgeon: Sameer Chance M.D. Dictating: Sameer Chance M.D. Service Dt: 2015 OPERATIVE REPORT FIRST MELT HELPER: Uyen Ortega M.D. ANESTHESIA: General endotracheal tube. PREOPERATIVE DIAGNOSIS (ES): Lumbar spondylosis. Lumbar spinal stenosis. Intermittent neurogenic claudication. Lumbar radiculopathy. POSTOPERATIVE DIAGNOSIS (ES): Lumbar spondylosis. Lumbar spinal stenosis. Intermittent neurogenic claudication. Lumbar radiculopathy. NAME OF OPERATION: L3-4 and L4-5 posterior spinal decompression including partial medial facetectomies, lateral recess decompressions and foraminotomies. INDICATIONS FOR PROCEDURE: The patient is a 80-year-old male who presents with low back and leg pain. Workup reveals evidence of significant spinal stenosis affecting the L3-4 and L4-5 levels. The risks and benefits of an L3-4 and L4-5 posterior spinal decompression were reviewed at length with the patient who stated he understood and wished to proceed. OPERATIVE FINDINGS: Intraoperative findings as expected. DESCRIPTION OF PROCEDURE: On the day of surgery, the patient was wheeled in the operating room while awake and carefully positioned supine on his hospital stretcher. General endotracheal tube anesthesia was administered without complication. Perioperative antibiotics were administered. A Adkins catheter was inserted. The patient was carefully flipped from the supine into the prone position onto the awaiting [facility] table. His head and neck were supported on a prone view headholder. His head and neck were placed in neutral alignment. He was positioned in the reverse Trendelenburg position. He was placed into slight flexion. With the aid of fluoroscopy, an incision was then planned allowing exposure to the spine from the inferior aspect of the lamina of L2 through the superior aspect of lamina of L5. Final prepping and draping were then completed. Our intended incision was infiltrated with local anesthetic. A #10 blade was used to divide the skin. A subperiosteal technique was then used to expose the spine from the lamina of L3 through the superior aspect of the lamina of L5. Self-retaining retractors were inserted. Care was taken to protect the pars interarticularis and facet capsules at each level. Again, fluoroscopy was used to confirm our levels. With this done, the Leksell rongeur was used to resect the spinous processes of L3, L4 and the superior half of L5. The high speed bur drill was then used to create a trough in the laminae of L3, L4 and the superior third of L5. These were then connected across the midline along the superior third of L3 and along the superior third of L5. The residual midline bone was then delivered in several large fragments. There was significant ligamentum flavum hypertrophy. There was significant lateral recess stenosis. At the L4-5 level, there were also large synovial cysts filling the neural foramina. Meticulous dissection with a [place] elevator and a [place] #4 allowed us to mobilize the dura. Kerrison punch was then used to resect the overgrown tissue and bone and to decompress the lateral recesses and neural foramina. The high speed bur drill was used to perform partial medial facetectomies. A wide decompression of the spinal canal was obtained from just below the pedicle of L3 to the mid pedicle of L5. The exiting and traversing nerve roots were identified and free of compression. The thecal sac was pulsatile. A small amount of bony bleeding was waxed. The wound was irrigated with copious amounts of antibiotics irrigation. Meticulous hemostasis was obtained using SURGIFLO and electrocautery. The wound was then again irrigated with copious amounts of antibiotic irrigation. A deep drain was brought out through a separate stab incision in the skin. The wound was then closed in layers using nylon in the skin and a Harry dressing was applied. The drain was secured to the skin. All drapes were then removed and the patient was subsequently flipped from the prone position to the supine position. He was subsequently extubated without difficulty and taken to the recovery room in hemodynamically stable condition. ESTIMATED BLOOD LOSS: 200 milliliters. INTRAOPERATIVE FLUIDS: 2,000 milliliters of crystalloid plus 250 milliliters of 5% albumin. BLOOD TRANSFUSION: None. URINE OUTPUT: 950 milliliters. SPONGE/INSTRUMENT/NEEDLE COUNTS: Sponge and needle counts were correct at the end of the procedure. CONDITION ON DISCHARGE FROM OPERATING ROOM: Disposition: Extubated, to the recovery room in hemodynamically stable condition. COMPLICATIONS: None immediate. ATTESTATION: Hillary Chance, was present from positioning up to and including final closure. Electronically Signed By Sameer Chance M.D. 08/10/2015 06:43 A Sameer Chance M.D. PS/dxsocorro #[id number] Editing MT: TD: 2015 12:07:00 cc: Sameer Chance M.D. documented in this encounter Plan of Treatment Not on file documented as of this encounter Procedures Procedure Name Priority Date/Time Associated Diagnosis Comments DISCHARGE LABORATORY CUMULATIVE REPORT 07/24/2015 BLOOD ABO, RH, INDIRECT AB SCREEN Routine 2015 7:00 AM CDT documented in this encounter Results * DISCHARGE LABORATORY CUMULATIVE REPORT (07/24/2015) Narrative 07/24/2015 Ordered by an unspecified provider. Historical Provider LAB BLOOD ORDERABLES Laura l Result * Blood ABO, Rh, indirect ab screen (2015 7:00 AM CDT) [place], indirect Negative HISTORICAL RESULTS ABO, Rho(D) B Positive HISTORI AB RESULTS Blood specimen (specimen) 2015 7:00 AM CDT Sameer Chance MD LAB BLOOD ORDERABLES Final Resu lt HISTORICAL RESULTS documented in this encounter Visit Diagnoses Diagnosis Spinal stenosis of lumbar region Essential (primary) hypertension Unspecified essential hypertension Uncomplicated asthma Nicotine dependence, other tobacco product, uncomplicated documented in this encounter
--- OUTSIDE RECORDS SUMMARY | 2024-10-01 08:49 | XMS_ITS | Encounter Summary ---
Author Organization [facility] Address [address] [place] [address] Phone Care Team Providers Care Middleware Developer Name Role Phone Bao Pierre MD Primary Care Provider [phone] Reason for Referral * (Routine) - Closed Specialty Diagnoses / Procedures Referred By Amber t Referred To Contact Diagnoses Pain of left hip joint Procedures Large Joint Arthrocentesis Stephanie Mcguire DO Phone: tel: fax: Referral ID Status Reason Start Date Expiration Date Visits Re quested Visits Authorized [id number] Closed 04/09/2018 10/19/2019 1 1 Reason for Visit * Reason Comments Pain * Injectables (Routine) - Closed Specialty Diagnoses / Procedures Referred By Amber t Referred To Contact Diagnoses Pain of left hip joint Procedures Large Joint Injection w/ Ultrasound Guidance Ange Mcnamara PA Phone: tel: fax: [address] [address] Referral ID Status Reason Start Date Expiration Date Visits Re quested Visits Authorized [id number] Closed 03/30/2018 10/09/2019 1 1 Encounter Details Date Type Department Care Team (Late st Contact Info) Description 04/09/2018 11:30 AM CDT Office Visit [facility] Orthopaedic Surgery [address] [place] [address] [place] [address] [place] [address] Pain of left hip joint (Primary Dx) Social History Tobacco Use Types Packs/Day Years Used Date Smoking Tobacco: Never Smokeless Tobacco: Never Sex and Gender Information Value Date Recorded Sex Assigned at Not on file Legal Sex Male 9:03 PM STANDARDS ANALYST Gender Identity Not on file Sexual Orientation Straight 10/15/2019 10 :34 PM STANDARDS ANALYST documented as of this encounter Progress Notes * Stephanie Mcguire DO - 04/09/2018 11:30 AM CDTAssociated Order(s): LARGE JOINT ARTHROCENTESIS Post-Procedure Diagnose(s): Pain of left hip joint PROCEDURE NOTE DIAGNOSIS Left hip pain, concern for infection PROCEDURE Ultrasound guided Left hip aspiration PROCEDURE NOTE Informed consent was obtained. Risks and benefits of the procedure were explained. The patient was placed in a supine position and the Left femoral head neck junction was identified under ultrasound using the curvilinear transducer. The area was prepped with Betadine x 6 and alcohol swab. Sterile ultrasound probe cover was used. Sterile ultrasound gel was applied. A 25-gauge 1.5 inch needle was inserted into this area and 1-2 mL of 1% lidocaine was infused subcutaneously to anesthetize the region. Then, a 22-gauge 3.5 inch needle was advanced under ultrasound guidance to the target, using an in-plane approach. Multiple attempts at aspiration was performed, but no significant amount of fluidwas able to be aspirated. No labs were sent. The patient tolerated the procedure without complications. Post procedure instructions were provided. The patient was seen with the Fellow, Dr. Alves. I was present during the entire procedure. Stephanie Mcguire DO, MPH Geomorphologist Department of Orthopedic Surgery Physical Medicine and Rehabilitation Section [facility] Left hip joint aspiration Date/Time: 04/09/2018 12:36 PM Performed by: STEPHANIE MCGUIRE Authorized by: ANGE MCNAMARA Procedure Details: Location: Hip Site: L hip joint Ultrasound guided: Yes * Ange Mcnamara PA - 04/09/2018 11:30 AM CDT Ok to schedule pt with surgeon, negative aspiration and blood work for infection, Dr. Kilpatrick or please thanks documented in this encounter Plan of Treatment Not on file documented as of this encounter Procedures Procedure Name Priority Date/Time Associated Diagnosis Comments MD ARTHROCENTESIS ASPIR&/INJ MAJOR JT/BURSA W/US Routine 04/09/2018 11:30 AM CDT Pain of left hip joint SCAN - RADIOLOGY/IMAGING 04/09/2018 documented in this encounter Results * MD ARTHROCENTESIS ASPIR&/INJ MAJOR JT/BURSA W/US (04/09/2018 11:30 AM CDT) Narrative Stephanie Mcguire DO - 04/09/2018 11:30 AM CDT Stephanie Mcguire DO ? 04/09/2018 12:39 PM Left hip joint aspiration Date/Time: 04/09/2018 12:36 PM Performed by: STEPHANIE MCGUIRE Authorized by: ANGE MCNAMARA Procedure Details: ??Location: ??Hip ??Site: ??L hip joint ??Ultrasound guided: Yes ?? us Ange OROPEZA IN CLINIC/BEDSIDE ORDERA BLES Final Result * SCAN - RADIOLOGY/IMAGING (04/09/2018) Anatomical Region Laterality Modality Other us Provider Scanning Edited Result - Final documented in this encounter Visit Diagnoses Diagnosis Pain of left hip joint- Primary documented in this encounter Orders Procedures Count Last Ordered Date First Orde red Date LARGE JOINT INJECTION W/ ULT RASOUND GUIDANCE 1 04/09/2018 documented in this encounter Care Teams Middleware Developer Relationship Specialty Start Date End Date Bao Pierre MD [address] [facility] [address] [place] [address] PCP - General 12/22/16 documented as of this encounter
--- OUTSIDE RECORDS SUMMARY | 2024-10-01 08:49 | XMS_ITS | Encounter Summary ---
Author Organization [facility] Address [address] [place] [address] Phone Care Team Providers Care Global Upstream Marketing Manager Name Role Phone Bao Pierre MD Primary Care Provider [phone] Reason for Referral * Injectables (Routine) - Closed Specialty Diagnoses / Procedures Referred By Contac t Referred To Contact Diagnoses Pain of left hip joint Procedures Large Joint Injection w/ Ultrasound Guidance Ange Ramires PA Phone: tel: fax: [address] [address] Referral ID Status Reason Start Date Expiration Date Visits Re quested Visits Authorized [id number] Closed 03/30/2018 10/09/2019 1 1 Encounter Details Date Type Department Care Team (Late st Contact Info) Description 03/30/2018 Orders Only [facility] Orthopaedic Surgery [address] [facility] [address] [place] [address] [place] [id number] Ange Ramires PA [address] [place] [address] Pain of left hip joint (Primary Dx) Social History Tobacco Use Types Packs/Day Years Used Date Smoking Tobacco: Never Smokeless Tobacco: Never Sex and Gender Information Value Date Recorded Sex Assigned at Not on file Legal Sex Male 9:03 PM GRADUATE INTERNSHIP Gender Identity Not on file Sexual Orientation Straight 10/15/2019 10 :34 PM GRADUATE INTERNSHIP documented as of this encounter Plan of Treatment Scheduled Orders Name Type Priority Associated Diagnoses Orde r Schedule Large Joint Injection w/ Ultrasound Guidance Procedures Routine Pain of left hip joint Expected: 04/06/2018, Expires: 03/30/2019 documented as of this encounter Visit Diagnoses Diagnosis Pain of left hip joint- Primary documented in this encounter Care Teams Global Upstream Marketing Manager Relationship Specialty Start Date End Date Bao Pierre MD [address] [address] PCP - General 12/22/16 documented as of this encounter
--- OUTSIDE RECORDS SUMMARY | 2024-10-01 08:49 | XMS_ITS | Encounter Summary ---
Author Organization [facility] Address [address] [place] [address] Phone Care Team Providers Care Plastic Surgery Specialist Name Role Phone Bao Pierre MD Primary Care Provider [phone] Reason for Referral * Diagnostic Imaging (Routine) - Closed Specialty Diagnoses / Procedures Referred By Contac t Referred To Contact Diagnoses Pain of left hip joint Procedures XR Pelvis 1 or 2 Views Ange Ramires PA Phone: tel: fax: [address] [address] Referral ID Status Reason Start Date Expiration Date Visits Re quested Visits Authorized [id number] Closed 03/27/2018 10/06/2019 1 1 Encounter Details Date Type Department Care Team (Late st Contact Info) Description 03/27/2018 8:30 AM CDT Office Visit [facility] Orthopaedic Surgery [address] [facility] [address]th [place] [address] [place] [id number] Ange Ramires PA [address] [place], [place] [id number] Pain of left hip joint (Primary Dx) Social History Tobacco Use Types Packs/Day Years Used Date Smoking Tobacco: Never Smokeless Tobacco: Never Sex and Gender Information Value Date Recorded Sex Assigned at Not on file Legal Sex 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 male. CHIEF COMPLAINT Left groin pain HISTORY OF PRESENT ILLNESS Patient is an 82-year-old male who presents for initial evaluation of left groin pain for the last 4-6 weeks. He has been seeing paint grinder Dr. Shafer for left hip pain. In December 2017 he underwent intraarticular hip injection which was very helpful for a pain presenting in the left posterior hip/buttock. Several weeks later he began to have pain in the left groin with radiation into the anteromedial thigh. Pain does not pass the knee. Pain is a constant dull aching that increasesto a sharp electric pain with walking; transitional movements, especially getting into the car; andusing stairs. He is using a cane for ambulation which helps. He denies bowel/bladder incontinence or urinary retention. He denies fevers, chills, night sweats. PMH He has a past medical history of Personal history of other diseases of the circulatory system and Personal history of other diseases of the respiratory system. PSH He Past Surgical History: Procedure Laterality Date ??? CA REMOVAL GALLBLADDER Cholecystectomy - (Added by MIRIAN Conv) ??? SHOULDER SURGERY Shoulder Surgery Right - (Added by MIRIAN Conv) FAMILY HISTORY He family history includes Arthritis in his mother and sister; Cancer in his sister and another family member; Heart disease in his brother and mother; Hypertension in his mother and another family member; Scoliosis in his son. ALLERGIES He has No Known Allergies. MEDICATIONS He No current outpatient prescriptions on file. SOCIAL HISTORY He REVIEW OF SYSTEMS: 12 systems review positive for vision changes, snoring, and dizziness in the last 30 days PHYSICAL EXAM: Alert, oriented and cooperative. Mood [...] are nontender throughout and paraspinal muscles are nontender. PSIS palpation without tenderness. Hip range of motion with significantly limited internal and external rotation with reproduction of pain in the left groin, painful flexion. Positive left log roll. Left Karol's positive creating left groin pain. Sensation to light touch grossly normal tothe lower extremities. Negative clonus. IMAGING: Imaging of pelvis ordered today and reviewed by me revealing progressive, severe left hip osteoarthritis. Given the short-term interval progression with jbvb-sm-nsdk joint space narrowing, joint space aspiration should be considered if there is clinical concern for underlying infection. Pro gressive, mild right hip osteoarthritis ASSESSMENT: Left hip pain in the setting of severe, progressive OA TREATMENT PLAN: Patient is an 82-year-old male who presents for initial evaluation of left groin pain for the last 4-6 weeks. Xray reveals evidence of progressive and severe hip OA. Patient was discussed with Dr. Larsen who suggests a work up to rule out infection definitively. Patient will have labs drawn (CBC withDiff, ESR, CRP) and also be scheduled for left hip joint aspiration to rule out infection. He can then proceed to see hip surgeon to discuss CHRISTIANO. Findings and plan reviewed, questions answered, and the patient is in agreement. FOLLOW UP: over the phone after blood work and joint aspiration resulted AUBREY Cordova, PANathalyC [facility]/Physical Medicine and Rehabilitation Collaborative practice with Dr. Konrad Lange and Dr. Cathy Larsen Cosigned by Cathy Larsen MD at 03/28/2018 3:19 PM CDT documented in this encounter Plan of Treatment Not on file documented as of this encounter Results * XR Pelvis 1 or 2 Views (03/27/2018 8:59 AM CDT) Anatomical Region Laterality Modality Body, Pelvis N/A Computed Radiogr aphy 03/27/2018 9:35 AM CDT Impressions 03/27/2018 10:10 AM CDT 1. Progressive, severe left hip osteoarthritis. Given the short-term interval progression with ylqg-cm-uqjg joint space narrowing, joint space aspiration should [...] osteoarthritis. Given the short-term interval progression with jkov-ba-aond joint space narrowing, joint space aspiration should be considered if there is clinical concern for underlying infection. 2. Progressive, mild right hip osteoarthritis. Electronically signed by: Jerald Beaulieu MD, PHD Ange OROPEZA IMG XR PROCEDURES Final Result documented in this encounter Visit Diagnoses Diagnosis Pain of left hip joint- Primary Pain of left hip joint documented in this encounter Historical Medications * This list may reflect changes made after this encounter. glucosamine-chond roitin 250-200 mg tablet Take 1 tablet by mouth 2 times daily. 05/29/2018 tamsulosin (FLOMAX) 0.4 mg extended release capsule 05/03/2018 finasteride (PROPECIA) 1 mg tabletIndications :Male Patterned Baldness daily. 05/03/2018 polycarbophil (FIBER-TABS) 625 mg tablet 05/23/2018 aspirin 81 mg tabletIndications :ON HOLD Take 81 mg by mouth daily. 07/31/2007 05/29/2018 added in this encounter Care Teams Plastic Surgery Specialist Relationship Specialty Start Date End Date Bao Pierre MD [address] [address] PCP - General 12/22/16 documented as of this encounter
--- OUTSIDE RECORDS SUMMARY | 2024-10-01 08:50 | XMS_ITS | Encounter Summary ---
Author Organization [facility] Facility Care Team Providers Care Software Quality Manager Name Role Phone Unavailable Primary Care Provider Unavailabl e Encounter Details Date Type Department Care Team (Late st Contact Info) Description 08/10/2007 - 08/10/2007 11:59 PM SPINDRAW OPERATOR Hospital Encounter [facility] Edgar Parnell Jr., MD [address] [facility] [address] [place] [address] Social History Tobacco Use Types Packs/Day Years Used Date Smoking Tobacco: Never Assessed Sex and Gender Information Value Date Recorded Sex Assigned at Not on file Legal Sex Male 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
== END 2024-09-24 10:29 ==
PROVIDERS: Emergency Provider Student in an Organized Health Care Education/Training Program; PCP Internal Medicine
DX: Z03.89 Encounter for observation for other suspected diseases and conditions ruled out (principal); Z79.01 Long term (current) use of anticoagulants; Z86.718 Personal history of other venous thrombosis and embolism; W01.0XXA Fall on same level from slipping, tripping and stumbling without subsequent striking against object, initial encounter; Z91.81 History of falling
CPT/HCPCS: 99282

== ENCOUNTER 2024-09-24 22:59 | Emergency (ER) | payer MEDICARE, SELFPAY ==
--- NOTE | ~2024-09-24 | CT_ITS ---
EXAMINATION: CT brain wo con DATE: 09/25/2024 00:04 INDICATION: Fall. TECHNIQUE: Computed tomography (CT) of the head was performed without intravenous contrast. The mA wa s adjusted according to patient size. Iterative reconstruction technique was employed. The dose-lengt h product was 756.67 mGy-cm. COMPARISON: Head CT 10/22/2021 FINDINGS: There is a right frontal subdural hematoma that is hypodense to pantoja matter with maximum th ickness of 6 mm. There is a left frontotemporal parietal subdural hematoma that is predominantly hypo dense to pantoja matter with small foci of hyperdensity with maximum thickness of 10 mm. There are scatt ered areas of low attenuation in the cerebral white matter, which is within normal limits for the pat ient's age. There is no acute ischemic infarct or abnormal mass lesion. The ventricles are normal in size. There is 2 mm rightward midline shift at the level of the foramen of Felix. There are likely c hanges of ocular lens replacement surgeries. The paranasal sinuses are clear. There is a right otomas toid effusion. There is a left mastoid effusion. IMPRESSION: 1. Small chronic right frontal subdural hematoma. 2. Left frontotemporal parietal subdural hematoma, probably subacute. Reviewed, dictated and finalized at location A. UNTANCY PROFESSOR
[2024-09-24 23:00] VITALS: BP 97/40; PULSE 68; RESP 14; TEMP 36.6; O2SAT 100
[2024-09-24 23:15] VITALS: BP 117/64; PULSE 61; RESP 17; TEMP 36.7; O2SAT 100
--- NOTE | 2024-09-25 00:04 | PC.NURSE ---
Patient started to yell and scream that he did not want to be here. Patient began taking his cords off of him and stating he is ready to go. Notified EDP Dr. London, who VRBO 5mg IM Zyprexa.
--- NOTE | 2024-09-25 00:07 | PC.NURSE ---
Patient was taken to radiology and was compliant for CT scan. Patient states to nursing stafff when he comes back that he will stop screaming as long as staff will get him out of here. Holding off on Zyprexa IM administration.
--- NOTE | 2024-09-25 00:07 | ED.FALL ---
HPI - Fall General Chief Complaint: Fall Stated Complaint: fall Time Seen by Provider: 09/24/24 23:35 Source: EMS and RN notes reviewed Mode of arrival: EMS Limitations: dementia History of Present Illness HPI Narrative: 89-year-old with a history of dementia was brought in from longterm with the complaints of fall. Patient was signed to get out of the chair lost balance and fell. No LOC. MD complaint: fall Fall from: chair Fall witnessed: yes, by living facility staff Place fall occurred: longterm/[facility]NF Loss of consciousness: none Related Data Home Medications ?Medication ?Instructions ?Recorded ?Confirmed ?Last Taken ?Type aspirin 81 mg tablet,delayed 81 mg PO DAILY 08/11/20 01/05/22 10/21/21 History release (Adult Aspirin Regimen) clopidogrel 75 mg tablet 75 mg PO DAILY 08/11/20 01/05/22 10/18/21 History finasteride 5 mg tablet 5 mg PO DAILY 08/11/20 01/05/22 10/21/21 History glucosamine sulfate 500 mg tablet 1,000 mg PO DAILY 08/11/20 01/05/22 10/21/21 History (Glucosamine) Alsuzusin 10 mg PO DAILY 10/18/21 01/05/22 10/21/21 History Hair,Skin and Nails 1 gummy PO BID 10/18/21 01/05/22 10/21/21 History Prevegen 1 cap PO DAILY 10/18/21 01/05/22 10/21/21 History inulin 2 gram chewable tablet 4 g PO DAILY 10/18/21 01/05/22 10/21/21 History (Fiber Gummies) rosuvastatin 40 mg tablet 40 mg PO DAILY 10/18/21 01/05/22 10/21/21 History Allergies Allergy/AdvReac Type Severity Reaction Status Date / Time epinephrine Allergy Severe Fainting Verified 01/05/22 10:22 Review of Systems Review of Systems: ROS unobtainable: Yes unobtainable due to medical condition (Dementia) PMFSH Past Medical History Medical History Anxiety Asthma CAD (coronary artery disease) Rectal Pain Constipation Surgical History Surgical History History of coronary artery stent placement Social History Social History Tobacco type: pipe Second hand tobacco smoke exposure: No Additional smoking assessment comments: SMOKED A PIPE YEARS AGO Alcohol intake: former Substance use: never Substance use type: does not use Living arrangements: alone Spiritual care concerns: No Exam Narrative: GENERAL: Well-appearing, well-nourished, and in no acute distress. Confused HEAD: Normocephalic, atraumatic. EYES: PERRLA and EOMI. ENT: Nares clear, no rhinorrhea or epistaxis. Mucous membranes moist. NECK: Supple. CHEST: Clear to auscultation. No respiratory distress. HEART: Regular rate and rhythm. No murmur heard. Normal peripheral pulses. ABDOMEN: Soft, nontender, nondistended, normal active bowel sounds. EXTREMITIES: Normal range of motion. No edema. SKIN: Warm, dry, no rash. NEURO: No focal deficits. Alert PSYCH: Normal mood and affect. Course Vital Signs Vital signs: Vital Signs Temperature 36.6 C 09/24/24 23:00 Pulse Rate 68 09/24/24 23:00 Respiratory Rate 14 09/24/24 23:00 Blood Pressure 97/40 L 09/24/24 23:00 Pulse Oximetry 100 09/24/24 23:00 Oxygen Delivery Room Air 09/24/24 23:00 Temperature 36.7 C 09/24/24 23:15 Pulse Rate 61 09/24/24 23:15 Respiratory Rate 17 09/24/24 23:15 Blood Pressure 117/64 09/24/24 23:15 Pulse Oximetry 100 09/24/24 23:15 Oxygen Delivery Room Air 09/24/24 23:00 MDM - Fall Medical Records Attestation: I reviewed the patient's medical records. Imaging Data Radiologist's impression: CT of the head showed no evidence of bleed or trauma Discharge Plan Discharge Clinical Impression: Minor head injury Qualifiers: Encounter type: initial encounter Qualified Code(s): S09.90XA - Unspecified injury of head, initial encounter Patient Disposition: [facility] Living Condition: Stable Instructions: Head Injury (ED) Additional Instructions: Continue home medication fall precautions, follow with the primary doctor Patient Language: Turkmen Prescriptions: No Action finasteride 5 mg tablet 5 mg PO DAILY glucosamine sulfate [Glucosamine] 500 mg tablet 1,000 mg PO DAILY Rx Instructions: administer with a meal aspirin [Adult Aspirin Regimen] 81 mg tablet,delayed release (DR/EC) 81 mg PO DAILY clopidogrel 75 mg tablet 75 mg PO DAILY Alsuzusin 10 mg PO DAILY rosuvastatin 40 mg Tablet 40 mg PO DAILY Fiber Gummies 2 gram Tablet,Chewable 4 g PO DAILY Hair,Skin and Nails 1 gummy PO BID Prevegen 1 cap PO DAILY Follow-up/Referrals: Ignacio,Bao Malloy MD [Primary Care Provider] - Time of Disposition: 00:19
[2024-09-25 00:09] VITALS: BP 127/54; PULSE 68; RESP 14; TEMP 36.8; O2SAT 100
[2024-09-25] MEDS: OLANZapine 10 MG INJ VIAL 5 MG IM (00:15)
--- NOTE | 2024-09-25 00:22 | PC.NURSE ---
Patient started yelling GOD DAMNIT I WANT TO GET OUT OF HERE . Zyprexa 5mg IM given at 0015.
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
[2024-09-25 01:47] VITALS: BP 134/66; PULSE 78; RESP 16; TEMP 36.4; O2SAT 100
[2024-09-25] MEDS: HALOPERIDOL LACTATE 5 MG/ML VIAL 2.5 MG IM (01:56)
[2024-09-25] MEDS: diphenhydrAMINE HCl INJ 50 MG/ML VIAL 25 MG IM (01:56)
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
--- NOTE | 2024-09-25 02:14 | PC.NURSE ---
EMS arrives for patient
== END 2024-09-25 02:31 ==
PROVIDERS: Emergency Provider Family Medicine; PCP Internal Medicine
DX: S09.90XA Unspecified injury of head, initial encounter (principal); F41.9 Anxiety disorder, unspecified; J45.909 Unspecified asthma, uncomplicated; I25.10 Atherosclerotic heart disease of native coronary artery without angina pectoris; W07.XXXA Fall from chair, initial encounter
CPT/HCPCS: 70450; 96372; 99284; J1200; J1630; J2359